=== PATIENT | male | born 1995 ===

== ENCOUNTER 2016-10-19 00:53 | Inpatient (IN) | payer MEDICAID ==
[2016-10-19 00:54] VITALS: BMI 22.2
[2016-10-19] MEDS ORDERED: Sodium Chloride 0.9% 1,000 ML IV ONE (01:21)
[2016-10-19] MEDS ORDERED: DiphenhydrAMINE 50 mg/ml Inj IVP STA ×2 (01:21→03:51)
[2016-10-19] MEDS ORDERED: HYDROmorphone 1 mg/ml ISec IVP STA (01:21)
[2016-10-19] MEDS ORDERED: DiphenhydrAMINE 50 mg/ml Inj ONE ×3 (01:31→06:56)
[2016-10-19 01:38] LABS: BASO # 0.1 K/uL (0.0-0.2); EOS # 0.7 K/uL (0.0-0.7); LYMPH # 3.4 K/uL (1.0-4.3); LYMPH % 25.9 % (20.0-40.0); MEAN CELL VOLUME 67.1 fL (80.0-94.0); MEAN CORPUSCULAR HEMOGLOBIN 21.3 pg (27.0-31.0); MEAN CORPUSCULAR HGB CONC 31.8 g/dL (33.0-37.0); MEAN PLATELET VOLUME 7.6 fL (7.2-11.7); MONO # 0.7 K/uL (0.0-0.8); MONO % 5.1 % (0.0-10.0); RED CELL DISTRIBUTION WIDTH 15.9 % (11.5-14.5); WHITE BLOOD COUNT 13.1 K/uL (4.8-10.8)
[2016-10-19 01:48] LABS: CHLORIDE 97 mmol/L (98-107); POTASSIUM 3.6 mmol/L (3.6-5.2); SODIUM 141 mmol/L (132-148)
[2016-10-19 01:50] LABS: ALB/GLOB RATIO 0.9 (1.0-2.1); ALKALINE PHOSPHATASE 131 U/L (38-126); AST/SGOT 21 U/L (17-59); BILIRUBIN,TOTAL < 0.1 mg/dL (0.2-1.3); CARBON DIOXIDE 28 mmol/L (22-30); GFR AFRICAN-AMERICAN > 60; TOTAL PROTEIN 7.5 g/dL (6.3-8.3)
[2016-10-19 01:51] LABS: ALT/SGPT 19 U/L (21-72); BLOOD UREA NITROGEN 8 mg/dL (9-20); CALCIUM 8.7 mg/dl (8.6-10.4); GLUCOSE,RANDOM 112 mg/dL (75-110)
--- NOTE | 2016-10-19 01:57 | C.PDOC ---
History Of Present Illness 21 y.o male presents to ER with complaints of abdominal pain and groin pain. Patient is s/p colostomy by Dr Taylor on 09/24 and perineal abscess I&D 10/06. He is currently at [facility] and states the pain is not controlled with medications given. He states his pain generalized waxing and waning and usually gets relief with Dilaudid in the hospital. Denies any nausea, vomiting, fever, urinary symptoms. Time Seen by Provider: 10/19/16 01:11 Chief Complaint (Nursing): Abdominal Pain History Per: Patient History/Exam Limitations: no limitations Onset/Duration Of Symptoms: Days, Waxing/Waning Location Of Pain/Discomfort: Diffuse Radiation Of Pain To:: None Quality Of Discomfort: "Pain" Associated Symptoms: denies: Fever, Nausea, Vomiting, Urinary Symptoms Additional History Per: Patient Past Medical History Reviewed: Historical Data, Nursing Documentation, Vital Signs Vital Signs: Last Vital Signs Temp 98.4 F 10/19/16 00:56 Pulse 101 H 10/19/16 00:56 Resp 20 10/19/16 00:56 BP 123/77 10/19/16 00:56 Pulse Ox 100 10/19/16 05:15 - Medical History PMH: Crohn's Disease (COLOSTOMY 2015), Depression Surgical History: No Surg Hx - [facility] Procedures DRAINAGE OF BUTTOCK SKIN, EXTERNAL APPROACH, DIAGNOSTIC (09/23/16) EXCISION OF BACK SKIN, EXTERNAL APPROACH (09/23/16) EXCISION OF PERINEUM SKIN, EXTERNAL APPROACH (09/23/16) EXTRACTION OF BUTTOCK SKIN, EXTERNAL APPROACH (09/23/16) Family History: States: Unknown Family Hx - Social History Hx Alcohol Use: No Hx Substance Use: No - Immunization History Hx Tetanus Toxoid Vaccination: No Hx Influenza Vaccination: No Hx Pneumococcal Vaccination: No Review Of Systems Except As Marked, All Systems Reviewed And Found Negative. Constitutional: Negative for: Fever, Chills Gastrointestinal: Positive for: Abdominal Pain. Negative for: Nausea, Vomiting Genitourinary: Positive for: Other (+groin pain ). Negative for: Dysuria, Frequency, Hematuria Physical Exam - Physical Exam Skin: Other (perineal wound pink and tender, no drainage or foul odor) Gastrointestinal/Abdominal: Tenderness (nonfocal generalized), Other (colostomy left abdomen with brown soft stool) ED Course And Treatment - Laboratory Results Result Diagrams: 10/19/16 01:35 10/19/16 01:35 O2 Sat by Pulse Oximetry: 100 (on RA) Pulse Ox Interpretation: Normal Medical Decision Making Medical Decision Makin y.o male with abdominal pain and is s/p colectomy by Dr Taylor on 09/24 and perineal abscess I&D 10/06. Labs and xray ordered. Patient treated with IV NS , Dilaudid and Benadryl. Case discussed with Dr Mayen who agrees with plan and treatment. Labs reviewed showing no acute changes. On reevaluation, patient continues to complain of pain and is requesting to call his PMD Dr Shiloh Barrett. Will place patient on observation for intractable abdominal pain Disposition - Disposition Disposition: HOME/ ROUTINE Disposition Time: 01:56 Condition: STABLE - POA Present On Arrival: None - Clinical Impression Clinical Impression: Intractable abdominal pain - PA / MICA PATCHER / Resident Statement MD/DO has reviewed & agrees with the documentation as recorded. - Scribe Statement The provider has reviewed the documentation as recorded by the Scribe (Krystle Barrett) All medical record entries made by the Scribe were at my direction and personally dictated by me. I have reviewed the chart and agree that the record accurately reflects my personal performance of the history, physical exam, medical decision making, and the department course for this patient. I have also personally directed, reviewed, and agree with the discharge instructions and disposition. Decision To Admit - Pt Status Changed To: Hospital Disposition Of: Observation - . Bed Request Type: Regular Admitting Physician: Osvaldo Barrett Patient Diagnosis: Intractable abdominal pain
[2016-10-19] MEDS ORDERED: Magnesium Hydroxide Susp 30 ml UD PO PRN (06:31)
[2016-10-19] MEDS: DiphenhydrAMINE 50 mg/ml Inj IVP PRN ×8 (07:01→22:43)
[2016-10-19] MEDS ORDERED: VANCOMYCIN IV SCH (10:00)
[2016-10-19] MEDS ORDERED: PROTEIN HYDROLYS PO SCH (10:00)
[2016-10-19] MEDS ORDERED: AMINO ACIDS PO SCH (10:00)
[2016-10-19] MEDS ORDERED: SOD CHLORIDE IV SCH (10:00)
--- NOTE | 2016-10-19 10:42 | RAD ---
PROCEDURE: Radiographs of the chest and abdomen (obstructive series) HISTORY: Abdominal pain, history of surgery COMPARISON: 10/13/2016 TECHNIQUE: AP radiograph of the chest, with upright and supine radiographs of the abdomen. FINDINGS: CHEST: Lungs: Clear. Cardiovascular: Normal size heart. No pulmonary vascular congestion. Pleura: No pleural fluid. No pneumothorax. Other findings: None. ABDOMEN AND PELVIS: Bowel: There is moderate amount of stool in the left colon. There is nonobstructive bowel gas pattern. There is contrast material in the left hemicolon and a probable stoma in the left lower quadrant. There are surgical sutures in the right mid abdomen. Free air: None. Bones: Unremarkable. Other findings: None. IMPRESSION: Nonobstructive bowel gas pattern. Probable stoma in the left lower quadrant. Clear lungs.
[2016-10-19] MEDS: Enoxaparin 30 mg Syringe SC SCH (13:51)
[2016-10-19] MEDS: Lactobacillus Acidophilus 500 MU Cap PO SCH ×3 (13:53→17:42)
[2016-10-19] MEDS: Pantoprazole 20 mg EC Tab PO SCH ×2 (13:54→14:22)
--- NOTE | 2016-10-19 19:13 | CP.PCM.HP ---
Past Patient History - Infectious Disease Hx of Infectious Diseases: None - Past Medical History & Family History Past Medical History?: Yes - Past Social History Smoking Status: Never Smoked - CARDIAC Hx Cardiac Disorders: No - PULMONARY Hx Respiratory Disorders: No - NEUROLOGICAL Hx Neurological Disorder: No - HEENT Hx HEENT Problems: No - RENAL Hx Chronic Kidney Disease: No - ENDOCRINE/METABOLIC Hx Endocrine Disorders: No - HEMATOLOGICAL/ONCOLOGICAL Hx Blood Disorders: No - INTEGUMENTARY Hx Dermatological Problems: Yes Other/Comment: Perineal wound - MUSCULOSKELETAL/RHEUMATOLOGICAL Hx Falls: No - GASTROINTESTINAL Hx Gastrointestinal Disorders: Yes Hx Colostomy: Yes (Left quadrant abd) Hx Crohn's Disease: Yes (COLOSTOMY 2016) - GENITOURINARY/GYNECOLOGICAL Hx Genitourinary Disorders: No - PSYCHIATRIC Hx Depression: Yes Hx Substance Use: No - SURGICAL HISTORY Hx Surgeries: Yes (SEE COMMENT) Other/Comment: LOOP COLOSTOMY. Perineal wound. Left upper arm PICC Line - ANESTHESIA Hx Anesthesia: Yes Hx Anesthesia Reactions: No Hx Malignant Hyperthermia: No Meds Allergies/Adverse Reactions: Allergies Allergy/AdvReac Type Severity Reaction Status Date / Time morphine Allergy ITCHING Verified 10/19/16 12:19 Results - Vital Signs Recent Vital Signs: Last Vital Signs Temp 98.3 F 10/19/16 16:00 Pulse 88 10/19/16 16:00 Resp 20 10/19/16 16:00 BP 99/65 L 10/19/16 16:00 Pulse Ox 98 10/19/16 16:00 - Labs Result Diagrams: 10/19/16 01:35 10/19/16 01:35 Labs: Laboratory Results - last 24 hr 10/19/16 10/19/16 14:20 16:34 Vancomycin Peak < 5.0 L Vancomycin Trough < 5.0 L
[2016-10-19] MEDS: Vancomycin 1.4 GM in Sodium Chloride 0.9% 500 ML IVPB SCH (20:31)
[2016-10-20] MEDS: DiphenhydrAMINE 50 mg/ml Inj IVP PRN ×11 (00:46→22:03)
[2016-10-20] MEDS: HYDROmorphone 1 mg/ml ISec IVP PRN ×5 (08:45→18:08)
[2016-10-20] MEDS ORDERED: Pneumococcal 23-Valent Vaccine IM ONE (10:00)
[2016-10-20] MEDS ORDERED: Influenza Virus Vaccine 45 mcg/0.5 ml Syr IM ONE (10:00)
--- NOTE | 2016-10-20 10:46 | CP.PCM.PN ---
<Antonio Foster - Last Filed: 10/20/16 12:57> Subjective - Date & Time of Evaluation Date of Evaluation: 10/20/16 Time of Evaluation: 10:40 - Subjective Subjective: Medicine Note- Dr. Barrett's service Patient was seen and examined at bedside. Patient reports that he came back to the hospital at the instructions of Dr. Barrett due to the intractable abdominal pain he was experiencing after he left, to be evaluated by GI. Patient reports that currently he feels okay, tolerating PO. Colostomy bag still functioning. No nausea, no vomiting. No events overnight, per nursing. Objective - Vital Signs/Intake and Output Vital Signs (last 24 hours): Temp Pulse Resp BP Pulse Ox 98.2 F 90 20 106/75 97 10/20/16 07:54 10/20/16 07:54 10/20/16 07:54 10/20/16 07:54 10/20/16 07:54 Intake and Output: 10/20/16 10/20/16 06:59 18:59 Intake Total 800 Balance 800 - Medications Medications: Current Medications Acetaminophen (Tylenol 325mg Tab) 650 mg PO Q4 PRN PRN Reason: Pain, Mild (1-3) Diphenhydramine HCl (Benadryl) 25 mg IVP Q2 PRN PRN Reason: itching Last Admin: 10/20/16 08:47 Dose: 25 mg Enoxaparin Sodium (Lovenox) 30 mg SC DAILY [facility] Last Admin: 10/19/16 13:51 Dose: 30 mg Escitalopram Oxalate (Lexapro) 20 mg PO DAILY [facility] Last Admin: 10/19/16 14:22 Dose: 20 mg Gabapentin (Neurontin) 100 mg PO TID [facility] Last Admin: 10/19/16 17:42 Dose: 100 mg Hydromorphone HCl (Dilaudid) 1 mg IVP Q2 PRN PRN Reason: Pain Last Admin: 10/20/16 08:45 Dose: 1 mg Vancomycin HCl 1.4 gm/ Sodium (Chloride) 500 mls @ 166.7 mls/hr IVPB Q24H [facility] Last Admin: 10/19/16 20:31 Dose: 166.7 mls/hr Ketorolac Tromethamine (Toradol) 10 mg PO Q8 PRN PRN Reason: Inflammation Lactobacillus Acidophilus (Bacid Acidophilus) 1 cap PO BID [facility] Last Admin: 10/19/16 17:42 Dose: 1 cap Magnesium Hydroxide (Milk Of Magnesia) 30 ml PO DAILY PRN PRN Reason: Constipation Pantoprazole Sodium (Protonix Ec Tab) 20 mg PO DAILY [facility] Last Admin: 10/19/16 14:22 Dose: 20 mg Trazodone HCl (Desyrel) 50 mg PO HS [facility] Last Admin: 10/19/16 22:51 Dose: 50 mg - Constitutional Appears: Non-toxic, No Acute Distress - Head Exam Head Exam: ATRAUMATIC, NORMAL INSPECTION, NORMOCEPHALIC - Eye Exam Eye Exam: PERRL Pupil Exam: NORMAL ACCOMODATION, PERRL - ENT Exam ENT Exam: Mucous Membranes Moist - Respiratory Exam Respiratory Exam: Clear to Ausculation Bilateral, NORMAL BREATHING PATTERN. absent: Prolonged Expiratory Phase, Rales, Rhonchi, Wheezes - Cardiovascular Exam Cardiovascular Exam: REGULAR RHYTHM, +S1, +S2 - GI/Abdominal Exam GI & Abdominal Exam: Soft, Normal Bowel Sounds. absent: Tenderness, Diminished Bowel Sounds, Hypoactive Bowel Sounds Additional comments: functioning colostomy bag - Extremities Exam Extremities Exam: Normal Capillary Refill, Normal Inspection - Neurological Exam Neurological Exam: Alert, Awake, Oriented x3 - Psychiatric Exam Psychiatric exam: Normal Affect, Normal Mood - Skin Skin Exam: Normal Color, Warm Assessment and Plan - Assessment and Plan (Free Text) Assessment: (1) Intractable Abdominal Pain/ Crohn's disease Consult GI- Dr. Lopez s/p partial colectomy revision on 10/14/16 Dilaudid 1mg IVP Q2h PRN Benadryl 25mg IVP Q2h PRN Toradol 10mg PO Q8h PRN Tylenol 650mg PO Q4h PRN (2) Wound s/p debridement on 10/14/16 wound care nurse referral Vanco 1gm IV q24h started on 10/19/16- continued from previous visit Lactobacillus Acidophilus - 1 cap PO BID (3) Prophylaxis Protonix 20mg PO daily Lovenox 30mg SC Daily SCDs (4) Depression Lexapro 20mg PO Daily All management per Dr Barrett <Osvaldo Barrett S - Last Filed: 10/20/16 22:11> Objective - Vital Signs/Intake and Output Vital Signs (last 24 hours): Temp Pulse Resp BP Pulse Ox 98.6 F 103 H 20 110/62 97 10/20/16 15:27 10/20/16 21:52 10/20/16 15:27 10/20/16 21:52 10/20/16 15:27 Intake and Output: 10/20/16 10/21/16 18:59 06:59 Intake Total 620 Balance 620 - Medications Medications: Current Medications Acetaminophen (Tylenol 325mg Tab) 650 mg PO Q4 PRN PRN Reason: Pain, Mild (1-3) Diphenhydramine HCl (Benadryl) 25 mg IVP Q2 PRN PRN Reason: itching Last Admin: 10/20/16 22:03 Dose: 25 mg Enoxaparin Sodium (Lovenox) 30 mg SC DAILY [facility] Last Admin: 10/20/16 10:51 Dose: 30 mg Escitalopram Oxalate (Lexapro) 20 mg PO DAILY [facility] Last Admin: 10/20/16 10:51 Dose: 20 mg Gabapentin (Neurontin) 100 mg PO TID [facility] Last Admin: 10/20/16 17:28 Dose: 100 mg Hydromorphone HCl (Dilaudid) 1 mg IVP Q2 PRN Last Admin: 10/20/16 22:03 Dose: 1 mg Vancomycin HCl 1.4 gm/ Sodium (Chloride) 500 mls @ 166.7 mls/hr IVPB Q24H [facility] Last Admin: 10/20/16 17:03 Dose: 166.7 mls/hr Ketorolac Tromethamine (Toradol) 10 mg PO Q8 PRN PRN Reason: Inflammation Lactobacillus Acidophilus (Bacid Acidophilus) 1 cap PO BID [facility] Last Admin: 10/20/16 17:28 Dose: 1 cap Magnesium Hydroxide (Milk Of Magnesia) 30 ml PO DAILY PRN PRN Reason: Constipation Pantoprazole Sodium (Protonix Ec Tab) 20 mg PO DAILY [facility] Last Admin: 10/20/16 13:08 Dose: 20 mg Polyethylene Glycol (Miralax) 17 gm PO DAILY [facility] Last Admin: 10/20/16 13:09 Dose: 17 gm Trazodone HCl (Desyrel) 50 mg PO HS [facility] Last Admin: 10/20/16 21:51 Dose: 50 mg Attending/Attestation - Attestation I have personally seen and examined this patient.: Yes I have fully participated in the care of the patient.: Yes I have reviewed all pertinent clinical information, including history, physical exam and plan: Yes Notes (Text): 10/20/16 22:11 case seen and disucssed eveline rosen and
[2016-10-20] MEDS: Enoxaparin 30 mg Syringe SC SCH (10:51)
--- NOTE | 2016-10-20 10:58 | CP.PCM.CON ---
History of Present Illness - History of Present Illness History of Present Illness: Chrissy Scott, IM PGY-1, GI Service, Dr. Hines Past Patient History - Infectious Disease Hx of Infectious Diseases: None - Past Medical History & Family History Past Medical History?: Yes - Past Social History Smoking Status: Never Smoked - CARDIAC Hx Cardiac Disorders: No - PULMONARY Hx Respiratory Disorders: No - NEUROLOGICAL Hx Neurological Disorder: No - HEENT Hx HEENT Problems: No - RENAL Hx Chronic Kidney Disease: No - ENDOCRINE/METABOLIC Hx Endocrine Disorders: No - HEMATOLOGICAL/ONCOLOGICAL Hx Blood Disorders: No - INTEGUMENTARY Hx Dermatological Problems: Yes Other/Comment: Perineal wound - MUSCULOSKELETAL/RHEUMATOLOGICAL Hx Falls: No - GASTROINTESTINAL Hx Gastrointestinal Disorders: Yes Hx Colostomy: Yes (Left quadrant abd) Hx Crohn's Disease: Yes (COLOSTOMY 2016) - GENITOURINARY/GYNECOLOGICAL Hx Genitourinary Disorders: No - PSYCHIATRIC Hx Depression: Yes Hx Substance Use: No - SURGICAL HISTORY Hx Surgeries: Yes (SEE COMMENT) Other/Comment: LOOP COLOSTOMY. Perineal wound. Left upper arm PICC Line - ANESTHESIA Hx Anesthesia: Yes Hx Anesthesia Reactions: No Hx Malignant Hyperthermia: No Meds Allergies/Adverse Reactions: Allergies Allergy/AdvReac Type Severity Reaction Status Date / Time morphine Allergy ITCHING Verified 10/19/16 12:19 - Medications Medications: Current Medications Acetaminophen (Tylenol 325mg Tab) 650 mg PO Q4 PRN PRN Reason: Pain, Mild (1-3) Diphenhydramine HCl (Benadryl) 25 mg IVP Q2 PRN PRN Reason: itching Last Admin: 10/20/16 10:50 Dose: 25 mg Enoxaparin Sodium (Lovenox) 30 mg SC DAILY [facility] BEDS AT [facility] Last Admin: 10/20/16 10:51 Dose: 30 mg Escitalopram Oxalate (Lexapro) 20 mg PO DAILY [facility] 234 BEDS AT [facility] Last Admin: 10/20/16 10:51 Dose: 20 mg Gabapentin (Neurontin) 100 mg PO TID [facility] 234 BEDS AT THE [facility] Last Admin: 10/20/16 10:51 Dose: 100 mg Hydromorphone HCl (Dilaudid) 1 mg IVP Q2 PRN PRN Reason: Pain Last Admin: 10/20/16 10:49 Dose: 1 mg Vancomycin HCl 1.4 gm/ Sodium (Chloride) 500 mls @ 166.7 mls/hr IVPB Q24H [facility]CLUDE 234 BEDS AT [facility] Last Admin: 10/19/16 20:31 Dose: 166.7 mls/hr Ketorolac Tromethamine (Toradol) 10 mg PO Q8 PRN PRN Reason: Inflammation Lactobacillus Acidophilus (Bacid Acidophilus) 1 cap PO BID [facility] 234 BEDS AT [facility] Last Admin: 10/19/16 17:42 Dose: 1 cap Magnesium Hydroxide (Milk Of Magnesia) 30 ml PO DAILY PRN PRN Reason: Constipation Pantoprazole Sodium (Protonix Ec Tab) 20 mg PO DAILY [facility] 234 BEDS AT [facility] Last Admin: 10/19/16 14:22 Dose: 20 mg Trazodone HCl (Desyrel) 50 mg PO HS [facility] 234 BEDS AT [facility] Last Admin: 10/19/16 22:51 Dose: 50 mg Results - Vital Signs Recent Vital Signs: Last Vital Signs Temp 98.2 F 10/20/16 07:54 Pulse 90 10/20/16 07:54 Resp 20 10/20/16 07:54 BP 106/75 10/20/16 07:54 Pulse Ox 97 10/20/16 07:54 - Labs Result Diagrams: 10/19/16 01:35 10/19/16 01:35 Labs: Laboratory Results - last 24 hr 10/19/16 10/19/16 10/20/16 14:20 16:34 04:07 Vancomycin Peak < 5.0 L Vancomycin Trough < 5.0 L 26.5 H 10/20/16 05:56 Vancomycin Peak 16.1 L Vancomycin Trough
--- NOTE | 2016-10-20 11:01 | CP.PCM.CON ---
<Chrissy Scott - Last Filed: 10/20/16 12:35> History of Present Illness - History of Present Illness History of Present Illness: Chrissy Scott, IM PGY-1, GI Service - Dr. Hines 21 yo male w h/o Crohn's disease and fistula formation s/p partial colectomy and loop colostomy admitted for abdominal and rectal pain. He was recently discharged from [facility] (formerly [facility]) on 10/17 for the same complaints. Patient states he has chronic intermittent episodes of sharp abdominal pain. He is a poor historian. Admits to severe LLQ abd pain 2 nights ago at [facility]. Patient states this pain is not new and feels the same as multiple previous episodes. Patient was scheduled for GI followup at [facility] with his regular GI team, however patient states he did not followup because he wants a new GI doc. Patient denies diarrhea, n/v, fevers, chills, new rashes, joint pain, eye pain or redness, aphthous ulcers, h/o kidney stones. Patient is tolerating regular PO diet. Underwent partial colectomy 02/22/2015 due to fistula formation-unknown site. Moved to [place] with lapse of Insurance but felt healthy and decided he did not need to continue Humira. August 2015 -- developed rectal/groin abscesses with over fifteen I&D managed by four surgeons. Most recently, Dr. Villegas couple weeks ago. Endorsed he has never completed antibiotics. February 2016, worsening diarrhea and hematochezia with restarting of Humira. , loop colostomy for wound infection prevention. June 2016, stopped Humira, switched to mesalamine 400mg PO TID. Currently on no Crohn's medications. Last colonoscopy 09/04/2016 at [facility] in [place], endorsed that Crohn 's disease was not severe and separate entity abscesses. PMHx: Crohn's disease with fistula formation; chronic nonhealing abscess PSHx: Partial colectomy, loop colostomy, multiple I&Ds of perianal and presacral abscesses last 10/06/2016 Allergies: Morphine Social: Never smoked. Lives home w mother HomeMeds: Reviewed. See MAR Review of Systems - Constitutional Constitutional: absent: Chills, Fever - EENT Eyes: absent: Blurred Vision, Change in Vision - Cardiovascular Cardiovascular: absent: Chest Pain, Dyspnea, Pedal Edema - Respiratory Respiratory: absent: Cough - Gastrointestinal Gastrointestinal: Abdominal Pain (Epigastric and left-sided, sig improved ). absent: Change in Stool Character, Diarrhea, Nausea, Vomiting - Genitourinary Genitourinary: absent: Dysuria, Flank Pain - Integumentary Integumentary: absent: New Lesions, Rash - Neurological Neurological: absent: Dizziness, Weakness - Endocrine Endocrine: absent: Cold Intolorance, Heat Intolorance - Hematologic/Lymphatic Hematologic: absent: Easy Bleeding, Easy Bruising Past Patient History - Infectious Disease Hx of Infectious Diseases: None - Past Medical History & Family History Past Medical History?: Yes - Past Social History Smoking Status: Never Smoked - CARDIAC Hx Cardiac Disorders: No - PULMONARY Hx Respiratory Disorders: No - NEUROLOGICAL Hx Neurological Disorder: No - HEENT Hx HEENT Problems: No - RENAL Hx Chronic Kidney Disease: No - ENDOCRINE/METABOLIC Hx Endocrine Disorders: No - HEMATOLOGICAL/ONCOLOGICAL Hx Blood Disorders: No - INTEGUMENTARY Hx Dermatological Problems: Yes Other/Comment: Perineal wound - MUSCULOSKELETAL/RHEUMATOLOGICAL Hx Falls: No - GASTROINTESTINAL Hx Gastrointestinal Disorders: Yes Hx Colostomy: Yes (Left quadrant abd) Hx Crohn's Disease: Yes (COLOSTOMY 2016) - GENITOURINARY/GYNECOLOGICAL Hx Genitourinary Disorders: No - PSYCHIATRIC Hx Depression: Yes Hx Substance Use: No - SURGICAL HISTORY Hx Surgeries: Yes (SEE COMMENT) Other/Comment: LOOP COLOSTOMY. Perineal wound. Left upper arm PICC Line - ANESTHESIA Hx Anesthesia: Yes Hx Anesthesia Reactions: No Hx Malignant Hyperthermia: No Meds Allergies/Adverse Reactions: Allergies Allergy/AdvReac Type Severity Reaction Status Date / Time morphine Allergy ITCHING Verified 10/19/16 12:19 - Medications Medications: Current Medications Acetaminophen (Tylenol 325mg Tab) 650 mg PO Q4 PRN PRN Reason: Pain, Mild (1-3) Diphenhydramine HCl (Benadryl) 25 mg IVP Q2 PRN PRN Reason: itching Last Admin: 10/20/16 10:50 Dose: 25 mg Enoxaparin Sodium (Lovenox) 30 mg SC DAILY [facility] Last Admin: 10/20/16 10:51 Dose: 30 mg Escitalopram Oxalate (Lexapro) 20 mg PO DAILY [facility] Last Admin: 10/20/16 10:51 Dose: 20 mg Gabapentin (Neurontin) 100 mg PO TID [facility] Last Admin: 10/20/16 10:51 Dose: 100 mg Hydromorphone HCl (Dilaudid) 1 mg IVP Q2 PRN PRN Reason: Pain Last Admin: 10/20/16 10:49 Dose: 1 mg Vancomycin HCl 1.4 gm/ Sodium (Chloride) 500 mls @ 166.7 mls/hr IVPB Q24H [facility] Last Admin: 10/19/16 20:31 Dose: 166.7 mls/hr Ketorolac Tromethamine (Toradol) 10 mg PO Q8 PRN PRN Reason: Inflammation Lactobacillus Acidophilus (Bacid Acidophilus) 1 cap PO BID [facility] Last Admin: 10/19/16 17:42 Dose: 1 cap Magnesium Hydroxide (Milk Of Magnesia) 30 ml PO DAILY PRN PRN Reason: Constipation Pantoprazole Sodium (Protonix Ec Tab) 20 mg PO DAILY [facility] Last Admin: 10/19/16 14:22 Dose: 20 mg Trazodone HCl (Desyrel) 50 mg PO HS [facility] Last Admin: 10/19/16 22:51 Dose: 50 mg Physical Exam - Constitutional Appears: No Acute Distress - Head Exam Head Exam: ATRAUMATIC, NORMAL INSPECTION, NORMOCEPHALIC - Eye Exam Eye Exam: EOMI, Normal appearance, PERRL. absent: Scleral icterus Pupil Exam: NORMAL ACCOMODATION, PERRL. absent: Unequal - ENT Exam ENT Exam: Mucous Membranes Moist, Normal Exam - Neck Exam Neck exam: Positive for: Normal Inspection. Negative for: Meningismus - Respiratory Exam Respiratory Exam: Clear to Auscultation Bilateral. absent: Accessory Muscle Use , Rhonchi, Wheezes, Respiratory Distress, Stridor - Cardiovascular Exam Cardiovascular Exam: REGULAR RHYTHM, RRR, +S1, +S2. absent: Gallop, JVD, Rubs - GI/Abdominal Exam GI & Abdominal Exam: Normal Bowel Sounds, Soft, Tenderness (mild TTP epigastrium ). absent: Distended, Firm, Guarding, Rebound, Rigid Additional comments: Colostomy L abdomen, brown stool and gas - Extremities Exam Extremities exam: Positive for: normal inspection. Negative for: calf tenderness - Back Exam Back exam: absent: CVA tenderness (L), CVA tenderness (R), rash noted - Neurological Exam Neurological exam: Alert, CN II-XII Intact, Oriented x3, Reflexes Normal - Psychiatric Exam Psychiatric exam: Normal Affect, Normal Mood - Skin Skin Exam: Normal Color, Warm Results - Vital Signs Recent Vital Signs: Last Vital Signs Temp 98.2 F 10/20/16 07:54 Pulse 90 10/20/16 07:54 Resp 20 10/20/16 07:54 BP 106/75 10/20/16 07:54 Pulse Ox 97 10/20/16 07:54 - Labs Result Diagrams: 10/19/16 01:35 10/19/16 01:35 Labs: Laboratory Results - last 24 hr 10/19/16 10/19/16 10/20/16 14:20 16:34 04:07 Vancomycin Peak < 5.0 L Vancomycin Trough < 5.0 L 26.5 H 10/20/16 05:56 Vancomycin Peak 16.1 L Vancomycin Trough - Imaging and Cardiology Abdominal x-ray Status: Image reviewed by me, Report reviewed by me (Obstriuctive series -- Moderate stool in Left colon, Nonobstructive bowel pattern) Assessment & Plan - Assessment and Plan (Free Text) Assessment: 21 yo male w h/o Crohn's disease s/p colectomy with loop ileostomy and chronic nonhealing ulcers admitted with abdominal pain. - Abdominal pain - Crohn's disease - Medical noncompliance - Chronic microcytic anemia of iron deficiency Plan: - Recommend abx for sacral/perianal wounds and ID consult - Miralax Qday - Patient will need outpt CTE or MRE to r/o small bowel stricture as cause for intermittent abd pain - Avoid Toradol for pain control - Stool cx - H&H stable and at baseline. No signs of overt GIB - Date & Time Date: 10/20/16 Time: 12:42 <Tavo Hines MD - Last Filed: 10/20/16 14:10> Meds - Medications Medications: Current Medications Acetaminophen (Tylenol 325mg Tab) 650 mg PO Q4 PRN PRN Reason: Pain, Mild (1-3) Diphenhydramine HCl (Benadryl) 25 mg IVP Q2 PRN PRN Reason: itching Last Admin: 10/20/16 12:55 Dose: 25 mg Enoxaparin Sodium (Lovenox) 30 mg SC DAILY [facility] Last Admin: 10/20/16 10:51 Dose: 30 mg Escitalopram Oxalate (Lexapro) 20 mg PO DAILY [facility] Last Admin: 10/20/16 10:51 Dose: 20 mg Gabapentin (Neurontin) 100 mg PO TID [facility] Last Admin: 10/20/16 13:08 Dose: 100 mg Hydromorphone HCl (Dilaudid) 1 mg IVP Q2 PRN PRN Reason: Pain Last Admin: 10/20/16 12:54 Dose: 1 mg Vancomycin HCl 1.4 gm/ Sodium (Chloride) 500 mls @ 166.7 mls/hr IVPB Q24H [facility] Last Admin: 10/19/16 20:31 Dose: 166.7 mls/hr Ketorolac Tromethamine (Toradol) 10 mg PO Q8 PRN PRN Reason: Inflammation Lactobacillus Acidophilus (Bacid Acidophilus) 1 cap PO BID [facility] Last Admin: 10/20/16 13:08 Dose: 1 cap Magnesium Hydroxide (Milk Of Magnesia) 30 ml PO DAILY PRN PRN Reason: Constipation Pantoprazole Sodium (Protonix Ec Tab) 20 mg PO DAILY [facility] Last Admin: 10/20/16 13:08 Dose: 20 mg Polyethylene Glycol (Miralax) 17 gm PO DAILY [facility] Last Admin: 10/20/16 13:09 Dose: 17 gm Trazodone HCl (Desyrel) 50 mg PO HS [facility] Last Admin: 10/19/16 22:51 Dose: 50 mg Results - Vital Signs Recent Vital Signs: Last Vital Signs Temp 98.2 F 10/20/16 07:54 Pulse 90 10/20/16 07:54 Resp 20 10/20/16 07:54 BP 106/75 10/20/16 07:54 Pulse Ox 97 10/20/16 07:54 - Labs Result Diagrams: 10/19/16 01:35 10/19/16 01:35 Labs: Laboratory Results - last 24 hr 10/19/16 10/19/16 10/20/16 14:20 16:34 04:07 Vancomycin Peak < 5.0 L Vancomycin Trough < 5.0 L 26.5 H 10/20/16 05:56 Vancomycin Peak 16.1 L Vancomycin Trough Attending/Attestation - Attestation I have personally seen and examined this patient.: Yes I have fully participated in the care of the patient.: Yes I have reviewed all pertinent clinical information: Yes Notes (Text): 02/27/17 14:05 Patient seen and examined with GI fellow and resident at bedside. In a nutshell this is a 21 yr old male with crohns disease diagnosed 6 years ago s/p transverse colon resection and then loop colostomy 6 months ago, on remicaide in the past now discontinued due to recent history of recurrent nitza rectal and nitza anal abscesses s/p debridement two weeks ago. Today he is readmitted for left lower quadrant pain. Solid stool output noted via colostomy. Tolerating PO diet without difficulty. No s/s of sepsis. Has not followed with [facility] GI Dr Soto. He needs to start TNF for fistulizing disease if no current acute infections. Will get MR enterography to look at small bowel. Rest of plan as per surgery. Discussed with Dr Taylor- no other surgical intervention currently. Diet as tolerated.
[2016-10-20] MEDS: Lactobacillus Acidophilus 500 MU Cap PO SCH ×2 (13:08→17:28)
[2016-10-20] MEDS: Pantoprazole 20 mg EC Tab PO SCH (13:08)
[2016-10-20] MEDS: POLYETHYLENE GLYCOL 3350 17 GM/Dose PACKET PO SCH (13:09)
[2016-10-20] MEDS: Vancomycin 1.4 GM in Sodium Chloride 0.9% 500 ML IVPB SCH (17:03)
--- NOTE | 2016-10-20 17:51 | CP.PCM.PN ---
Subjective - Date & Time of Evaluation Date of Evaluation: 10/20/16 Time of Evaluation: 11:20 - Subjective Subjective: clinically same Objective - Vital Signs/Intake and Output Vital Signs (last 24 hours): Temp Pulse Resp BP Pulse Ox 98.6 F 106 H 20 108/72 97 10/20/16 15:27 10/20/16 15:27 10/20/16 15:27 10/20/16 15:27 10/20/16 15:27 Intake and Output: 10/20/16 10/20/16 06:59 18:59 Intake Total 800 620 Balance 800 620 - Medications Medications: Current Medications Acetaminophen (Tylenol 325mg Tab) 650 mg PO Q4 PRN PRN Reason: Pain, Mild (1-3) Diphenhydramine HCl (Benadryl) 25 mg IVP Q2 PRN PRN Reason: itching Enoxaparin Sodium (Lovenox) 30 mg SC DAILY [facility] Last Admin: 10/20/16 10:51 Dose: 30 mg Escitalopram Oxalate (Lexapro) 20 mg PO DAILY [facility] Last Admin: 10/20/16 10:51 Dose: 20 mg Gabapentin (Neurontin) 100 mg PO TID [facility] Last Admin: 10/20/16 17:28 Dose: 100 mg Hydromorphone HCl (Dilaudid) 1 mg IVP Q2 PRN PRN Reason: Pain Last Admin: 10/20/16 16:01 Dose: 1 mg Vancomycin HCl 1.4 gm/ Sodium (Chloride) 500 mls @ 166.7 mls/hr IVPB Q24H [facility] Last Admin: 10/20/16 17:03 Dose: 166.7 mls/hr Ketorolac Tromethamine (Toradol) 10 mg PO Q8 PRN PRN Reason: Inflammation Lactobacillus Acidophilus (Bacid Acidophilus) 1 cap PO BID [facility] Last Admin: 10/20/16 17:28 Dose: 1 cap Magnesium Hydroxide (Milk Of Magnesia) 30 ml PO DAILY PRN PRN Reason: Constipation Pantoprazole Sodium (Protonix Ec Tab) 20 mg PO DAILY [facility] Last Admin: 10/20/16 13:08 Dose: 20 mg Polyethylene Glycol (Miralax) 17 gm PO DAILY [facility] Last Admin: 10/20/16 13:09 Dose: 17 gm Trazodone HCl (Desyrel) 50 mg PO HS [facility] Last Admin: 10/19/16 22:51 Dose: 50 mg - Constitutional Appears: Well - Head Exam Head Exam: ATRAUMATIC, NORMAL INSPECTION, NORMOCEPHALIC - Eye Exam Eye Exam: EOMI, Normal appearance, PERRL Pupil Exam: NORMAL ACCOMODATION, PERRL - ENT Exam ENT Exam: Mucous Membranes Moist, Normal Exam - Neck Exam Neck Exam: Full ROM, Normal Inspection. absent: Lymphadenopathy - Respiratory Exam Respiratory Exam: Decreased Breath Sounds - Cardiovascular Exam Cardiovascular Exam: REGULAR RHYTHM, +S1, +S2 - GI/Abdominal Exam GI & Abdominal Exam: Soft, Diminished Bowel Sounds - Rectal Exam Rectal Exam: Deferred
[2016-10-21] MEDS: DiphenhydrAMINE 50 mg/ml Inj IVP PRN ×11 (00:38→22:10)
[2016-10-21] MEDS: Vancomycin 500mg/D5W 100 ml 100 ML IVPB SCH ×2 (05:18→16:08)
[2016-10-21 07:20] LABS: BASO # 0.1 K/uL (0.0-0.2); BASO % 0.7 % (0.0-2.0); EOS # 0.6 K/uL (0.0-0.7); EOS % 6.3 % (0.0-4.0); LYMPH # 2.5 K/uL (1.0-4.3); LYMPH % 28.4 % (20.0-40.0); MEAN CELL VOLUME 67.3 fL (80.0-94.0); MEAN CORPUSCULAR HEMOGLOBIN 21.2 pg (27.0-31.0); MEAN CORPUSCULAR HGB CONC 31.5 g/dL (33.0-37.0); MEAN PLATELET VOLUME 8.3 fL (7.2-11.7); MONO # 0.8 K/uL (0.0-0.8); MONO % 8.5 % (0.0-10.0); NRBC % 0.1 % (0.0-2.0); RED CELL DISTRIBUTION WIDTH 16.3 % (11.5-14.5); WHITE BLOOD COUNT 8.9 K/uL (4.8-10.8)
[2016-10-21 07:31] LABS: CHLORIDE 95 mmol/L (98-107); SODIUM 139 mmol/L (132-148)
[2016-10-21 07:32] LABS: POTASSIUM 3.8 mmol/L (3.6-5.2)
[2016-10-21 07:34] LABS: ALB/GLOB RATIO 0.9 (1.0-2.1); ALKALINE PHOSPHATASE 136 U/L (38-126); ALT/SGPT 26 U/L (21-72); AST/SGOT 26 U/L (17-59); BILIRUBIN,TOTAL 0.3 mg/dL (0.2-1.3); BLOOD UREA NITROGEN 6 mg/dL (9-20); CARBON DIOXIDE 29 mmol/L (22-30); GFR AFRICAN-AMERICAN > 60; GLUCOSE,RANDOM 79 mg/dL (75-110); TOTAL PROTEIN 7.3 g/dL (6.3-8.3)
[2016-10-21 07:35] LABS: CALCIUM 8.4 mg/dl (8.6-10.4)
--- NOTE | 2016-10-21 08:33 | CP.PCM.PN ---
<Chrissy Scott - Last Filed: 10/21/16 08:30> Subjective - Date & Time of Evaluation Date of Evaluation: 10/21/16 Time of Evaluation: 08:41 - Subjective Subjective: EVA Kinsey PGY-1, GI Service - Dr. Lopez Patient seen and examined bedside. No acute events overnight. Patient states he feels better today, but still with some intermittent, sharp abdominal pain abdominal pain. Denies fevers, chills, n/v, CP, SOB. Objective - Vital Signs/Intake and Output Vital Signs (last 24 hours): Temp Pulse Resp BP Pulse Ox 98 F 93 H 18 99/67 L 97 10/21/16 00:00 10/21/16 00:00 10/21/16 00:00 10/21/16 00:00 10/21/16 00:00 - Medications Medications: Current Medications Acetaminophen (Tylenol 325mg Tab) 650 mg PO Q4 PRN PRN Reason: Pain, Mild (1-3) Diphenhydramine HCl (Benadryl) 25 mg IVP Q2 PRN PRN Reason: itching Last Admin: 10/21/16 07:39 Dose: 25 mg Enoxaparin Sodium (Lovenox) 30 mg SC DAILY [facility] Last Admin: 10/20/16 10:51 Dose: 30 mg Escitalopram Oxalate (Lexapro) 20 mg PO DAILY [facility] Last Admin: 10/20/16 10:51 Dose: 20 mg Gabapentin (Neurontin) 100 mg PO TID [facility] Last Admin: 10/20/16 17:28 Dose: 100 mg Hydromorphone HCl (Dilaudid) 1 mg IVP Q2 PRN Last Admin: 10/21/16 07:39 Dose: 1 mg Vancomycin HCl/Dextrose (Vancocin) 100 mls @ 100 mls/hr IVPB Q12H [facility] Stop: 10/26/16 05:01 Last Admin: 10/21/16 05:18 Dose: 100 mls/hr Lactobacillus Acidophilus (Bacid Acidophilus) 1 cap PO BID [facility] Last Admin: 10/20/16 17:28 Dose: 1 cap Magnesium Hydroxide (Milk Of Magnesia) 30 ml PO DAILY PRN PRN Reason: Constipation Pantoprazole Sodium (Protonix Ec Tab) 20 mg PO DAILY [facility] Last Admin: 10/20/16 13:08 Dose: 20 mg Polyethylene Glycol (Miralax) 17 gm PO DAILY [facility] Last Admin: 10/20/16 13:09 Dose: 17 gm Trazodone HCl (Desyrel) 50 mg PO HS [facility] Last Admin: 10/20/16 21:51 Dose: 50 mg - Labs Labs: 10/21/16 05:30 10/21/16 05:30 - Constitutional Appears: No Acute Distress - Head Exam Head Exam: ATRAUMATIC, NORMAL INSPECTION, NORMOCEPHALIC - Eye Exam Eye Exam: EOMI, Normal appearance, PERRL. absent: Scleral icterus Pupil Exam: NORMAL ACCOMODATION, PERRL. absent: Unequal - ENT Exam ENT Exam: Mucous Membranes Moist, Normal Exam - Neck Exam Neck exam: Positive for: Normal Inspection. Negative for: Meningismus - Respiratory Exam Respiratory Exam: Clear to Auscultation Bilateral. absent: Accessory Muscle Use , Rhonchi, Wheezes, Respiratory Distress, Stridor - Cardiovascular Exam Cardiovascular Exam: REGULAR RHYTHM, RRR, +S1, +S2. absent: Gallop, JVD, Rubs - GI/Abdominal Exam GI & Abdominal Exam: Normal Bowel Sounds, Soft, Tenderness (mild TTP epigastrium ). absent: Distended, Firm, Guarding, Rebound, Rigid Additional comments: Colostomy L abdomen, brown formed stool and gas - Extremities Exam Extremities exam: Positive for: normal inspection. Negative for: calf tenderness - Back Exam Back exam: absent: CVA tenderness (L), CVA tenderness (R), rash noted - Neurological Exam Neurological exam: Alert, CN II-XII Intact, Oriented x3, Reflexes Normal - Psychiatric Exam Psychiatric exam: Normal Affect, Normal Mood - Skin Skin Exam: Normal Color, Warm Assessment and Plan - Assessment and Plan (Free Text) Assessment: 21 yo male w h/o Crohn's disease s/p colectomy with loop ileostomy and chronic nonhealing ulcers admitted with abdominal pain. - Abdominal pain - Crohn's disease - Medical noncompliance - Chronic microcytic anemia of iron deficiency Plan: - Recommend abx for sacral/perianal wounds and ID consult - Miralax Qday - Patient will need outpt MRE to evaluate bowel stricture as cause for intermittent abd pain after his infection has resolved - Avoid Toradol for pain control - Stool cx if starts having diarrhea - H&H stable and at baseline. No signs of overt GIB - Discussed case with patient's established power nut runner operator, Dr. Soto - Discussed at length with patient importance of followup with Dr. Soto within 1 week. Patient has been counseled he must followup with his primary GI physician first - Patient will need to start TNF for fistulizing disease if no current acute infections. He will likely require several weeks of abx followed by ID evaluation prior to commencement of Remicaid therapy. - Diet as tolerated <Campos Lopez - Last Filed: 10/21/16 09:06> Objective - Vital Signs/Intake and Output Vital Signs (last 24 hours): Temp Pulse Resp BP Pulse Ox 98.1 F 87 19 103/70 96 10/21/16 07:00 10/21/16 07:00 10/21/16 07:00 10/21/16 07:00 10/21/16 07:00 - Medications Medications: Current Medications Acetaminophen (Tylenol 325mg Tab) 650 mg PO Q4 PRN PRN Reason: Pain, Mild (1-3) Diphenhydramine HCl (Benadryl) 25 mg IVP Q2 PRN PRN Reason: itching Last Admin: 10/21/16 07:39 Dose: 25 mg Enoxaparin Sodium (Lovenox) 30 mg SC DAILY [facility] Last Admin: 10/20/16 10:51 Dose: 30 mg Escitalopram Oxalate (Lexapro) 20 mg PO DAILY [facility] Last Admin: 10/20/16 10:51 Dose: 20 mg Gabapentin (Neurontin) 100 mg PO TID [facility] Last Admin: 10/20/16 17:28 Dose: 100 mg Hydromorphone HCl (Dilaudid) 1 mg IVP Q2 PRN Last Admin: 10/21/16 07:39 Dose: 1 mg Vancomycin HCl/Dextrose (Vancocin) 100 mls @ 100 mls/hr IVPB Q12H [facility] Stop: 10/26/16 05:01 Last Admin: 10/21/16 05:18 Dose: 100 mls/hr Lactobacillus Acidophilus (Bacid Acidophilus) 1 cap PO BID [facility] Last Admin: 10/20/16 17:28 Dose: 1 cap Magnesium Hydroxide (Milk Of Magnesia) 30 ml PO DAILY PRN PRN Reason: Constipation Pantoprazole Sodium (Protonix Ec Tab) 20 mg PO DAILY [facility] Last Admin: 02/27/17 13:08 Dose: 20 mg Polyethylene Glycol (Miralax) 17 gm PO DAILY [facility] Last Admin: 10/20/16 13:09 Dose: 17 gm Trazodone HCl (Desyrel) 50 mg PO HS [facility] Last Admin: 10/20/16 21:51 Dose: 50 mg - Labs Labs: 10/21/16 05:30 10/21/16 05:30 Attending/Attestation - Attestation I have personally seen and examined this patient.: Yes I have fully participated in the care of the patient.: Yes I have reviewed all pertinent clinical information, including history, physical exam and plan: Yes Notes (Text): 10/21/16 09:00 I have seen and examined patient with medical assistant float and GI fellow. No acute events overnight. He continues to complain of ongoing abdominal discomfort, though improved compared to prior and controlled with current medication regimen. He denies nausea, vomiting, fever/chills. Tolerating PO diet without difficulty. 12 point review of systems performed, negative aside from mentioned above. Crohn's colitis s/p loop ileostomy Chronic sacral ulcers s/p surgical debridement and wound vac therapy Chronic anemia - Diet as tolerated - Pain control, avoid use of NSAID medication. Patient cautioned regarding use of narcotic pain medication as this may potentially worsen condition. - Continue with antibiotic therapy as per medical and surgical teams, leukocytosis persists - Patient would benefit from outpatient CT or MR enterography for characterization of small bowel disease - Following completion of antibiotic therapy, will need ID evaluation to determine whether subsequent immunosuppresive crohn's medication can be initiated - Patient to follow up with primary GI at [facility], will consider subsequent transfer of care as per patient request following discussion with his power nut runner operator - From GI perspective, ok to discharge patient home with subsequent outpatient follow up
--- NOTE | 2016-10-21 09:27 | CP.PCM.PN ---
<Antonio Foster - Last Filed: 10/21/16 14:22> Subjective - Date & Time of Evaluation Date of Evaluation: 10/21/16 Time of Evaluation: 07:35 - Subjective Subjective: Medicine Note- Dr. Barrett's service Patient was seen and examined at bedside. Patient reports no acute complaints at this time. He has some mild abdominal pain, but chronic in nature. Tolerating PO, no nausea, vomiting. No events overnight. Objective - Vital Signs/Intake and Output Vital Signs (last 24 hours): Temp Pulse Resp BP Pulse Ox 98.1 F 87 19 103/70 96 10/21/16 07:00 10/21/16 07:00 10/21/16 07:00 10/21/16 07:00 10/21/16 07:00 - Medications Medications: Current Medications Acetaminophen (Tylenol 325mg Tab) 650 mg PO Q4 PRN PRN Reason: Pain, Mild (1-3) Diphenhydramine HCl (Benadryl) 25 mg IVP Q2 PRN PRN Reason: itching Last Admin: 10/21/16 07:39 Dose: 25 mg Enoxaparin Sodium (Lovenox) 30 mg SC DAILY [facility] Last Admin: 10/20/16 10:51 Dose: 30 mg Escitalopram Oxalate (Lexapro) 20 mg PO DAILY [facility] Last Admin: 10/20/16 10:51 Dose: 20 mg Gabapentin (Neurontin) 100 mg PO TID [facility] Last Admin: 10/20/16 17:28 Dose: 100 mg Hydromorphone HCl (Dilaudid) 1 mg IVP Q2 PRN Last Admin: 10/21/16 07:39 Dose: 1 mg Vancomycin HCl/Dextrose (Vancocin) 100 mls @ 100 mls/hr IVPB Q12H [facility] Stop: 10/26/16 05:01 Last Admin: 10/21/16 05:18 Dose: 100 mls/hr Lactobacillus Acidophilus (Bacid Acidophilus) 1 cap PO BID [facility] Last Admin: 10/20/16 17:28 Dose: 1 cap Magnesium Hydroxide (Milk Of Magnesia) 30 ml PO DAILY PRN PRN Reason: Constipation Pantoprazole Sodium (Protonix Ec Tab) 20 mg PO DAILY [facility] Last Admin: 10/20/16 13:08 Dose: 20 mg Polyethylene Glycol (Miralax) 17 gm PO DAILY [facility] Last Admin: 10/20/16 13:09 Dose: 17 gm Trazodone HCl (Desyrel) 50 mg PO HS [facility] Last Admin: 10/20/16 21:51 Dose: 50 mg - Labs Labs: 10/21/16 05:30 10/21/16 05:30 - Constitutional Appears: Non-toxic, No Acute Distress - Head Exam Head Exam: ATRAUMATIC, NORMAL INSPECTION, NORMOCEPHALIC - Eye Exam Pupil Exam: NORMAL ACCOMODATION, PERRL - ENT Exam ENT Exam: Mucous Membranes Moist - Neck Exam Neck Exam: Normal Inspection - Respiratory Exam Respiratory Exam: Clear to Ausculation Bilateral, NORMAL BREATHING PATTERN. absent: Prolonged Expiratory Phase, Rales, Rhonchi, Wheezes - Cardiovascular Exam Cardiovascular Exam: REGULAR RHYTHM, +S1, +S2 - GI/Abdominal Exam GI & Abdominal Exam: Soft, Tenderness (RUQ), Normal Bowel Sounds. absent: Diminished Bowel Sounds, Hypoactive Bowel Sounds, Pulsatile Mass - Neurological Exam Neurological Exam: Alert, Awake, Oriented x3 - Psychiatric Exam Psychiatric exam: Normal Affect, Normal Mood - Skin Skin Exam: Dry, Intact, Normal Color, Warm Assessment and Plan - Assessment and Plan (Free Text) Assessment: (1) Intractable Abdominal Pain/ Crohn's disease Consult GI- Dr. Lopez- yvonneay to discharge home from GI perspective s/p partial colectomy revision on 10/14/16 Dilaudid 1mg IVP Q2h PRN Benadryl 25mg IVP Q2h PRN Toradol 10mg PO Q8h PRN Tylenol 650mg PO Q4h PRN Consult Gen surg- Dr. Taylor (2) Wound s/p debridement on 10/14/16 wound care nurse referral Vanco 1gm IV q24h started on 10/19/16- continued from previous visit Lactobacillus Acidophilus - 1 cap PO BID (3) Prophylaxis Protonix 20mg PO daily Lovenox 30mg SC Daily SCDs (4) Depression Lexapro 20mg PO Daily All management per Dr Barrett <Osvaldo Barrett S - Last Filed: 10/21/16 18:32> Objective - Vital Signs/Intake and Output Vital Signs (last 24 hours): Temp Pulse Resp BP Pulse Ox 97.7 F 101 H 20 106/77 97 10/21/16 15:59 10/21/16 15:59 10/21/16 15:59 10/21/16 15:59 10/21/16 15:59 - Medications Medications: Current Medications Acetaminophen (Tylenol 325mg Tab) 650 mg PO Q4 PRN PRN Reason: Pain, Mild (1-3) Diphenhydramine HCl (Benadryl) 25 mg IVP Q2 PRN PRN Reason: itching Last Admin: 10/21/16 18:04 Dose: 25 mg Enoxaparin Sodium (Lovenox) 30 mg SC DAILY [facility] Last Admin: 10/21/16 09:55 Dose: 30 mg Escitalopram Oxalate (Lexapro) 20 mg PO DAILY [facility] Last Admin: 10/21/16 09:55 Dose: 20 mg Gabapentin (Neurontin) 100 mg PO TID [facility] Last Admin: 10/21/16 17:08 Dose: 100 mg Hydromorphone HCl (Dilaudid) 1 mg IVP Q2 PRN Last Admin: 10/21/16 18:08 Dose: 1 mg Vancomycin HCl/Dextrose (Vancocin) 100 mls @ 100 mls/hr IVPB Q12H [facility] Stop: 10/26/16 05:01 Last Admin: 10/21/16 16:08 Dose: 100 mls/hr Lactobacillus Acidophilus (Bacid Acidophilus) 1 cap PO BID [facility] Last Admin: 10/21/16 17:08 Dose: 1 cap Magnesium Hydroxide (Milk Of Magnesia) 30 ml PO DAILY PRN PRN Reason: Constipation Pantoprazole Sodium (Protonix Ec Tab) 20 mg PO DAILY [facility] Last Admin: 10/21/16 09:55 Dose: 20 mg Polyethylene Glycol (Miralax) 17 gm PO DAILY [facility] Last Admin: 10/21/16 09:49 Dose: 17 gm Trazodone HCl (Desyrel) 50 mg PO HS [facility] Last Admin: 10/20/16 21:51 Dose: 50 mg Attending/Attestation - Attestation I have personally seen and examined this patient.: Yes I have fully participated in the care of the patient.: Yes I have reviewed all pertinent clinical information, including history, physical exam and plan: Yes Notes (Text): 10/21/16 18:32 case seen and discussed [facility] staff and resident
[2016-10-21] MEDS: POLYETHYLENE GLYCOL 3350 17 GM/Dose PACKET PO SCH (09:49)
[2016-10-21] MEDS: Enoxaparin 30 mg Syringe SC SCH (09:55)
[2016-10-21] MEDS: Pantoprazole 20 mg EC Tab PO SCH (09:55)
[2016-10-21] MEDS: Lactobacillus Acidophilus 500 MU Cap PO SCH ×2 (09:56→17:08)
--- NOTE | 2016-10-21 16:41 | CP.PCM.PN ---
Subjective - Date & Time of Evaluation Date of Evaluation: 10/21/16 Time of Evaluation: 11:20 - Subjective Subjective: clinically same Objective - Vital Signs/Intake and Output Vital Signs (last 24 hours): Temp Pulse Resp BP Pulse Ox 97.7 F 101 H 20 106/77 97 10/21/16 15:59 10/21/16 15:59 10/21/16 15:59 10/21/16 15:59 10/21/16 15:59 - Medications Medications: Current Medications Acetaminophen (Tylenol 325mg Tab) 650 mg PO Q4 PRN PRN Reason: Pain, Mild (1-3) Diphenhydramine HCl (Benadryl) 25 mg IVP Q2 PRN PRN Reason: itching Last Admin: 10/21/16 16:06 Dose: 25 mg Enoxaparin Sodium (Lovenox) 30 mg SC DAILY [facility] Last Admin: 10/21/16 09:55 Dose: 30 mg Escitalopram Oxalate (Lexapro) 20 mg PO DAILY [facility] Last Admin: 10/21/16 09:55 Dose: 20 mg Gabapentin (Neurontin) 100 mg PO TID [facility] Last Admin: 10/21/16 14:01 Dose: 100 mg Hydromorphone HCl (Dilaudid) 1 mg IVP Q2 PRN Last Admin: 10/21/16 16:07 Dose: 1 mg Vancomycin HCl/Dextrose (Vancocin) 100 mls @ 100 mls/hr IVPB Q12H [facility] Stop: 10/26/16 05:01 Last Admin: 10/21/16 16:08 Dose: 100 mls/hr Lactobacillus Acidophilus (Bacid Acidophilus) 1 cap PO BID [facility] Last Admin: 10/21/16 09:56 Dose: 1 cap Magnesium Hydroxide (Milk Of Magnesia) 30 ml PO DAILY PRN PRN Reason: Constipation Pantoprazole Sodium (Protonix Ec Tab) 20 mg PO DAILY [facility] Last Admin: 10/21/16 09:55 Dose: 20 mg Polyethylene Glycol (Miralax) 17 gm PO DAILY [facility] Last Admin: 10/21/16 09:49 Dose: 17 gm Trazodone HCl (Desyrel) 50 mg PO HS [facility] Last Admin: 10/20/16 21:51 Dose: 50 mg - Constitutional Appears: Well - Head Exam Head Exam: ATRAUMATIC, NORMAL INSPECTION, NORMOCEPHALIC - Eye Exam Eye Exam: EOMI, Normal appearance, PERRL Pupil Exam: NORMAL ACCOMODATION, PERRL - ENT Exam ENT Exam: Mucous Membranes Moist, Normal Exam - Neck Exam Neck Exam: Full ROM, Normal Inspection. absent: Lymphadenopathy - Respiratory Exam Respiratory Exam: Decreased Breath Sounds - Cardiovascular Exam Cardiovascular Exam: REGULAR RHYTHM, +S1, +S2 - GI/Abdominal Exam GI & Abdominal Exam: Soft, Diminished Bowel Sounds - Rectal Exam Rectal Exam: Deferred
--- NOTE | 2016-10-21 18:00 | CP.PCM.CON ---
<Dary Borges - Last Filed: 10/21/16 18:01> History of Present Illness - History of Present Illness History of Present Illness: General Surgery Consult: Dr. Taylor Pt is a 21M with a PMHx of Crohn's, partial colectomy and loop colostomy, s/p debridement of perineal, gluteal, and pre-sacral wound, and colostomy revision who is well known to our service. Patient was recently [facility] on with instructions to apply Medihoney to his wounds. However, he returned yesterday due to abdominal pain and continued drainage from his wounds. Surgery consulted to evaluate for further recs. Pt states his pain is slightly better compared to prior admissions and he has been able to apply Medihoney to his wounds himself. He denies other complaints at this time. Denies N/V, F/C, chest pain or SOB. PMH: Crohn's PSH: Loop Colostomy 04/2016. Partial colectomy- 2012 SH: No tobacco, EtOH, or drug use. Pt is a college student and lives with parents. All: Morphine- "redness and itching" Review of Systems - Review of Systems All systems: reviewed and no additional remarkable complaints except (as per HPI ) Past Patient History - Infectious Disease Hx of Infectious Diseases: None - Past Medical History & Family History Past Medical History?: Yes - Past Social History Smoking Status: Never Smoked - CARDIAC Hx Cardiac Disorders: No - PULMONARY Hx Respiratory Disorders: No - NEUROLOGICAL Hx Neurological Disorder: No - HEENT Hx HEENT Problems: No - RENAL Hx Chronic Kidney Disease: No - ENDOCRINE/METABOLIC Hx Endocrine Disorders: No - HEMATOLOGICAL/ONCOLOGICAL Hx Blood Disorders: No - INTEGUMENTARY Hx Dermatological Problems: Yes Other/Comment: Perineal wound - MUSCULOSKELETAL/RHEUMATOLOGICAL Hx Falls: No - GASTROINTESTINAL Hx Gastrointestinal Disorders: Yes Hx Colostomy: Yes (Left quadrant abd) Hx Crohn's Disease: Yes (COLOSTOMY 2015) - GENITOURINARY/GYNECOLOGICAL Hx Genitourinary Disorders: No - PSYCHIATRIC Hx Depression: Yes Hx Substance Use: No - SURGICAL HISTORY Hx Surgeries: Yes (SEE COMMENT) Other/Comment: LOOP COLOSTOMY. Perineal wound. Left upper arm PICC Line - ANESTHESIA Hx Anesthesia: Yes Hx Anesthesia Reactions: No Hx Malignant Hyperthermia: No Meds Allergies/Adverse Reactions: Allergies Allergy/AdvReac Type Severity Reaction Status Date / Time morphine Allergy ITCHING Verified 10/19/16 12:19 - Medications Medications: Current Medications Acetaminophen (Tylenol 325mg Tab) 650 mg PO Q4 PRN PRN Reason: Pain, Mild (1-3) Diphenhydramine HCl (Benadryl) 25 mg IVP Q2 PRN PRN Reason: itching Last Admin: 10/21/16 16:06 Dose: 25 mg Enoxaparin Sodium (Lovenox) 30 mg SC DAILY [facility] Last Admin: 10/21/16 09:55 Dose: 30 mg Escitalopram Oxalate (Lexapro) 20 mg PO DAILY [facility] Last Admin: 10/21/16 09:55 Dose: 20 mg Gabapentin (Neurontin) 100 mg PO TID [facility] Last Admin: 10/21/16 17:08 Dose: 100 mg Hydromorphone HCl (Dilaudid) 1 mg IVP Q2 PRN Last Admin: 10/21/16 16:07 Dose: 1 mg Vancomycin HCl/Dextrose (Vancocin) 100 mls @ 100 mls/hr IVPB Q12H [facility] Stop: 10/26/16 05:01 Last Admin: 10/21/16 16:08 Dose: 100 mls/hr Lactobacillus Acidophilus (Bacid Acidophilus) 1 cap PO BID [facility] Last Admin: 10/21/16 17:08 Dose: 1 cap Magnesium Hydroxide (Milk Of Magnesia) 30 ml PO DAILY PRN PRN Reason: Constipation Pantoprazole Sodium (Protonix Ec Tab) 20 mg PO DAILY [facility] Last Admin: 10/21/16 09:55 Dose: 20 mg Polyethylene Glycol (Miralax) 17 gm PO DAILY [facility] Last Admin: 10/21/16 09:49 Dose: 17 gm Trazodone HCl (Desyrel) 50 mg PO HS [facility] Last Admin: 10/20/16 21:51 Dose: 50 mg Physical Exam - Constitutional Appears: Well, No Acute Distress - Head Exam Head Exam: ATRAUMATIC, NORMOCEPHALIC - Eye Exam Eye Exam: Normal appearance - ENT Exam ENT Exam: Mucous Membranes Moist - Respiratory Exam Respiratory Exam: NORMAL BREATHING PATTERN - Cardiovascular Exam Cardiovascular Exam: RRR - GI/Abdominal Exam GI & Abdominal Exam: Soft. absent: Distended, Tenderness Additional comments: colostomy in place with solid stool in bag - Rectal Exam Additional comments: perineal wound smaller compared to before; no active drainage noted gluteal wounds x 2 with some purulent drainage. Superior gluteal wound with some fluctuance at the apex - Extremities Exam Extremities exam: Positive for: full ROM. Negative for: tenderness - Neurological Exam Neurological exam: Alert, Oriented x3 - Skin Skin Exam: Dry, Intact, Warm Results - Vital Signs Recent Vital Signs: Last Vital Signs Temp 97.7 F 10/21/16 15:59 Pulse 101 H 10/21/16 15:59 Resp 20 10/21/16 15:59 BP 106/77 10/21/16 15:59 Pulse Ox 97 10/21/16 15:59 - Labs Result Diagrams: 10/21/16 05:30 10/21/16 05:30 Assessment & Plan - Assessment and Plan (Free Text) Assessment: 21M with complex perineal and gluteal wounds secondary to Crohn's Disease s/p loop colostomy Plan: - continue local wound care with medihoney 3 x per day - continue ABX - ID consult for further recs - monitor WBC - wean off dilaudid - encourage ambulation - d/w Dr. Claudia Borges, PGY-2\\ Surgery <Temo Taylor - Last Filed: 10/26/16 19:03> Meds - Medications Medications: Current Medications Acetaminophen (Tylenol 325mg Tab) 650 mg PO Q4 PRN PRN Reason: Pain, Mild (1-3) Diphenhydramine HCl (Benadryl) 25 mg IVP Q2 PRN Stop: 11/04/16 00:01 Last Admin: 10/26/16 18:12 Dose: 25 mg Enoxaparin Sodium (Lovenox) 30 mg SC DAILY [facility] Last Admin: 10/26/16 09:58 Dose: 30 mg Escitalopram Oxalate (Lexapro) 20 mg PO DAILY [facility] Last Admin: 10/26/16 09:57 Dose: 20 mg Gabapentin (Neurontin) 100 mg PO TID [facility] Last Admin: 10/26/16 18:21 Dose: 100 mg Hydromorphone HCl (Dilaudid) 1 mg IVP Q2 PRN Last Admin: 10/26/16 18:12 Dose: 1 mg Cefazolin Sodium/Dextrose (Ancef Iv 1 Gm Duplex) 50 mls @ 100 mls/hr IVPB Q8H [facility] Last Admin: 10/26/16 18:22 Dose: 100 mls/hr Lactobacillus Acidophilus (Bacid Acidophilus) 1 cap PO BID [facility] Last Admin: 10/26/16 18:21 Dose: 1 cap Magnesium Hydroxide (Milk Of Magnesia) 30 ml PO DAILY PRN PRN Reason: Constipation Pantoprazole Sodium (Protonix Ec Tab) 20 mg PO DAILY [facility] Last Admin: 10/26/16 09:58 Dose: 20 mg Polyethylene Glycol (Miralax) 17 gm PO DAILY [facility] Last Admin: 10/26/16 09:58 Dose: 17 gm Trazodone HCl (Desyrel) 50 mg PO HS [facility] Last Admin: 10/25/16 21:41 Dose: 50 mg Results - Vital Signs Recent Vital Signs: Last Vital Signs Temp 98.2 F 10/26/16 15:15 Pulse 96 H 10/26/16 15:15 Resp 98 H 10/26/16 15:15 BP 110/73 10/26/16 15:15 Pulse Ox 20 L 10/26/16 15:15 - Labs Result Diagrams: 10/25/16 08:06 10/26/16 08:27 Labs: Laboratory Results - last 24 hr 10/26/16 08:27 Sodium 138 Potassium 4.1 Chloride 95 L Carbon Dioxide 30 Anion Gap 17 BUN 6 L Creatinine 0.7 L Est GFR ( Amer) > 60 Est GFR (Non-Af Amer) > 60 Random Glucose 117 H Calcium 8.3 L Random Vancomycin 13.34 Attending/Attestation - Attestation I have personally seen and examined this patient.: Yes I have fully participated in the care of the patient.: Yes I have reviewed all pertinent clinical information: Yes Notes (Text): 10/26/16 18:52 Pt was seen and examined at bedside on 10/21/16 Agree with above note and assessment. Pt with Leucocytosis with Perineal wound with possible Abscess C/w IV antibiotics ID consult GI consult Plan d.w pt in detail We will f/u tomorrow.
[2016-10-22] MEDS: DiphenhydrAMINE 50 mg/ml Inj IVP PRN ×10 (00:27→22:23)
[2016-10-22] MEDS: Vancomycin 500mg/D5W 100 ml 100 ML IVPB SCH ×2 (05:18→20:27)
[2016-10-22 06:15] LABS: BASO # 0.1 K/uL (0.0-0.2); BASO % 0.7 % (0.0-2.0); EOS # 0.5 K/uL (0.0-0.7); EOS % 4.4 % (0.0-4.0); HEMATOCRIT 34.7 % (35.0-51.0); LYMPH # 2.2 K/uL (1.0-4.3); LYMPH % 20.4 % (20.0-40.0); MEAN CELL VOLUME 66.6 fL (80.0-94.0); MEAN CORPUSCULAR HEMOGLOBIN 21.3 pg (27.0-31.0); MEAN CORPUSCULAR HGB CONC 31.9 g/dL (33.0-37.0); MEAN PLATELET VOLUME 8.2 fL (7.2-11.7); MONO # 0.7 K/uL (0.0-0.8); MONO % 6.5 % (0.0-10.0); RED CELL DISTRIBUTION WIDTH 15.8 % (11.5-14.5); WHITE BLOOD COUNT 10.6 K/uL (4.8-10.8)
[2016-10-22 06:22] LABS: CHLORIDE 97 mmol/L (98-107); POTASSIUM 3.6 mmol/L (3.6-5.2); SODIUM 140 mmol/L (132-148)
[2016-10-22 06:25] LABS: ALB/GLOB RATIO 0.8 (1.0-2.1); ALKALINE PHOSPHATASE 116 U/L (38-126); ALT/SGPT 26 U/L (21-72); AST/SGOT 28 U/L (17-59); BILIRUBIN,TOTAL < 0.1 mg/dL (0.2-1.3); BLOOD UREA NITROGEN 7 mg/dL (9-20); CARBON DIOXIDE 32 mmol/L (22-30); GFR AFRICAN-AMERICAN > 60; GLUCOSE,RANDOM 108 mg/dL (75-110); TOTAL PROTEIN 7.2 g/dL (6.3-8.3)
[2016-10-22 06:26] LABS: CALCIUM 8.6 mg/dl (8.6-10.4)
--- NOTE | 2016-10-22 09:08 | CP.PCM.PN ---
<Keith Marr - Last Filed: 10/22/16 09:05> Subjective - Date & Time of Evaluation Date of Evaluation: 10/22/16 Time of Evaluation: 07:25 - Subjective Subjective: General Surgery Pt S&E, SHAREO. Complaining of pain on back above gluteal cleft. Otherwise changing dressings himself. Objective - Vital Signs/Intake and Output Vital Signs (last 24 hours): Temp Pulse Resp BP Pulse Ox 98.6 F 92 H 18 101/68 98 10/22/16 08:33 10/22/16 08:33 10/22/16 08:33 10/22/16 08:33 10/22/16 08:33 Intake and Output: 10/22/16 10/22/16 06:59 18:59 Intake Total 100 Balance 100 - Medications Medications: Current Medications Acetaminophen (Tylenol 325mg Tab) 650 mg PO Q4 PRN PRN Reason: Pain, Mild (1-3) Diphenhydramine HCl (Benadryl) 25 mg IVP Q2 PRN PRN Reason: itching Last Admin: 10/22/16 08:18 Dose: 25 mg Enoxaparin Sodium (Lovenox) 30 mg SC DAILY [facility] Last Admin: 10/21/16 09:55 Dose: 30 mg Escitalopram Oxalate (Lexapro) 20 mg PO DAILY [facility] Last Admin: 10/21/16 09:55 Dose: 20 mg Gabapentin (Neurontin) 100 mg PO TID [facility] Last Admin: 10/21/16 17:08 Dose: 100 mg Hydromorphone HCl (Dilaudid) 1 mg IVP Q2 PRN Last Admin: 10/22/16 08:18 Dose: 1 mg Vancomycin HCl/Dextrose (Vancocin) 100 mls @ 100 mls/hr IVPB Q12H [facility] Stop: 10/26/16 05:01 Last Admin: 10/22/16 05:18 Dose: 100 mls/hr Lactobacillus Acidophilus (Bacid Acidophilus) 1 cap PO BID [facility] Last Admin: 10/21/16 17:08 Dose: 1 cap Magnesium Hydroxide (Milk Of Magnesia) 30 ml PO DAILY PRN PRN Reason: Constipation Pantoprazole Sodium (Protonix Ec Tab) 20 mg PO DAILY [facility] Last Admin: 10/21/16 09:55 Dose: 20 mg Polyethylene Glycol (Miralax) 17 gm PO DAILY [facility] Last Admin: 10/21/16 09:49 Dose: 17 gm Trazodone HCl (Desyrel) 50 mg PO HS [facility] Last Admin: 10/21/16 21:31 Dose: 50 mg - Labs Labs: 10/22/16 06:08 10/22/16 06:08 - Constitutional Appears: Non-toxic, No Acute Distress - Head Exam Head Exam: ATRAUMATIC, NORMOCEPHALIC - Eye Exam Eye Exam: EOMI. absent: Scleral icterus - Respiratory Exam Respiratory Exam: NORMAL BREATHING PATTERN. absent: Respiratory Distress - GI/Abdominal Exam GI & Abdominal Exam: Soft. absent: Distended, Tenderness Additional comments: ostomy functioning well - Back Exam Back Exam: tenderness (above gluteal cleft over area of fluctuance) - Neurological Exam Neurological Exam: Alert, Awake, Oriented x3 - Skin Skin Exam: Dry, Warm Assessment and Plan - Assessment and Plan (Free Text) Assessment: 21M with complex perineal and gluteal wounds secondary to Crohn's Disease s/p loop colostomy Plan: - cont. wound care with medihoney 3 x per day - cont. Abx - F/U ID recs - wean dilaudid requirements - May require I&D of area of fluctuance D/W Dr. Claudia Marr PGY3 <Temo Taylor - Last Filed: 10/26/16 19:14> Objective - Vital Signs/Intake and Output Vital Signs (last 24 hours): Temp Pulse Resp BP Pulse Ox 98.2 F 96 H 98 H 110/73 20 L 10/26/16 15:15 10/26/16 15:15 10/26/16 15:15 10/26/16 15:15 10/26/16 15:15 - Medications Medications: Current Medications Acetaminophen (Tylenol 325mg Tab) 650 mg PO Q4 PRN PRN Reason: Pain, Mild (1-3) Diphenhydramine HCl (Benadryl) 25 mg IVP Q2 PRN Stop: 11/04/16 00:01 Last Admin: 10/26/16 18:12 Dose: 25 mg Enoxaparin Sodium (Lovenox) 30 mg SC DAILY [facility] Last Admin: 10/26/16 09:58 Dose: 30 mg Escitalopram Oxalate (Lexapro) 20 mg PO DAILY [facility] Last Admin: 10/26/16 09:57 Dose: 20 mg Gabapentin (Neurontin) 100 mg PO TID [facility] Last Admin: 10/26/16 18:21 Dose: 100 mg Hydromorphone HCl (Dilaudid) 1 mg IVP Q2 PRN Last Admin: 10/26/16 18:12 Dose: 1 mg Cefazolin Sodium/Dextrose (Ancef Iv 1 Gm Duplex) 50 mls @ 100 mls/hr IVPB Q8H [facility] Last Admin: 10/26/16 18:22 Dose: 100 mls/hr Lactobacillus Acidophilus (Bacid Acidophilus) 1 cap PO BID [facility] Last Admin: 10/26/16 18:21 Dose: 1 cap Magnesium Hydroxide (Milk Of Magnesia) 30 ml PO DAILY PRN PRN Reason: Constipation Pantoprazole Sodium (Protonix Ec Tab) 20 mg PO DAILY [facility] Last Admin: 10/26/16 09:58 Dose: 20 mg Polyethylene Glycol (Miralax) 17 gm PO DAILY [facility] Last Admin: 10/26/16 09:58 Dose: 17 gm Trazodone HCl (Desyrel) 50 mg PO HS [facility] Last Admin: 10/25/16 21:41 Dose: 50 mg - Labs Labs: 10/25/16 08:06 10/26/16 08:27 Attending/Attestation - Attestation I have personally seen and examined this patient.: Yes I have fully participated in the care of the patient.: Yes I have reviewed all pertinent clinical information, including history, physical exam and plan: Yes Notes (Text): 10/26/16 19:04 Pt was seen and examined at bedside on 10/22/16 Agree with above note and assessment. Pt with Presacral abscess with pain in sacral area Pt would need I & D of abscess and debridement of wounds. Plan d.w pt in detail We will f/u tomorrow.
[2016-10-22] MEDS: Pantoprazole 20 mg EC Tab PO SCH (10:39)
[2016-10-22] MEDS: Enoxaparin 30 mg Syringe SC SCH (10:39)
[2016-10-22] MEDS: POLYETHYLENE GLYCOL 3350 17 GM/Dose PACKET PO SCH (10:39)
[2016-10-22] MEDS: Lactobacillus Acidophilus 500 MU Cap PO SCH ×2 (10:39→18:27)
--- NOTE | 2016-10-22 15:15 | CP.PCM.PN ---
Subjective - Date & Time of Evaluation Date of Evaluation: 10/22/16 Time of Evaluation: 07:30 - Subjective Subjective: Medicine Note- Dr. Barrett's service Patient was seen and examined at bedside. Patient reports no acute complaints at this time. Tolerating PO, no nausea, vomiting. No events overnight. Objective - Vital Signs/Intake and Output Vital Signs (last 24 hours): Temp Pulse Resp BP Pulse Ox 98.6 F 92 H 18 101/68 98 10/22/16 08:33 10/22/16 08:45 10/22/16 08:33 10/22/16 08:33 10/22/16 08:33 Intake and Output: 10/22/16 10/22/16 06:59 18:59 Intake Total 100 700 Output Total 400 Balance 100 300 - Medications Medications: Current Medications Acetaminophen (Tylenol 325mg Tab) 650 mg PO Q4 PRN PRN Reason: Pain, Mild (1-3) Diphenhydramine HCl (Benadryl) 25 mg IVP Q2 PRN PRN Reason: itching Last Admin: 10/22/16 13:24 Dose: 25 mg Enoxaparin Sodium (Lovenox) 30 mg SC DAILY [facility] Last Admin: 10/22/16 10:39 Dose: 30 mg Escitalopram Oxalate (Lexapro) 20 mg PO DAILY [facility] Last Admin: 10/22/16 10:39 Dose: 20 mg Gabapentin (Neurontin) 100 mg PO TID [facility] Last Admin: 10/22/16 13:24 Dose: 100 mg Hydromorphone HCl (Dilaudid) 1 mg IVP Q2 PRN Last Admin: 10/22/16 13:23 Dose: 1 mg Vancomycin HCl/Dextrose (Vancocin) 100 mls @ 100 mls/hr IVPB Q12H [facility] Stop: 10/26/16 05:01 Last Admin: 10/22/16 05:18 Dose: 100 mls/hr Lactobacillus Acidophilus (Bacid Acidophilus) 1 cap PO BID [facility] Last Admin: 10/22/16 10:39 Dose: 1 cap Magnesium Hydroxide (Milk Of Magnesia) 30 ml PO DAILY PRN PRN Reason: Constipation Pantoprazole Sodium (Protonix Ec Tab) 20 mg PO DAILY [facility] Last Admin: 10/22/16 10:39 Dose: 20 mg Pneumococcal Polyvalent Vaccine (Pneumovax 23 Vaccine) 0.5 ml IM .ONCE ONE Stop: 10/24/16 09:49 Polyethylene Glycol (Miralax) 17 gm PO DAILY [facility] Last Admin: 10/22/16 10:39 Dose: 17 gm Trazodone HCl (Desyrel) 50 mg PO HS [facility] Last Admin: 10/21/16 21:31 Dose: 50 mg - Labs Labs: 10/22/16 06:08 10/22/16 06:08 - Constitutional Appears: Non-toxic, No Acute Distress - Head Exam Head Exam: ATRAUMATIC, NORMAL INSPECTION, NORMOCEPHALIC - Eye Exam Pupil Exam: NORMAL ACCOMODATION - ENT Exam ENT Exam: Mucous Membranes Moist - Respiratory Exam Respiratory Exam: Clear to Ausculation Bilateral, NORMAL BREATHING PATTERN. absent: Prolonged Expiratory Phase, Rales, Rhonchi, Wheezes - Cardiovascular Exam Cardiovascular Exam: REGULAR RHYTHM, +S1, +S2 - GI/Abdominal Exam GI & Abdominal Exam: Soft, Normal Bowel Sounds. absent: Tenderness, Diminished Bowel Sounds, Hernia, Hypoactive Bowel Sounds - Extremities Exam Extremities Exam: Normal Capillary Refill, Normal Inspection - Neurological Exam Neurological Exam: Alert, Awake, Oriented x3 - Psychiatric Exam Psychiatric exam: Normal Affect, Normal Mood - Skin Skin Exam: Dry, Normal Color, Warm. absent: Intact Additional comments: significant ulcerations in perineal area and along gluteal cleft, palpable tender mass above right buttock Assessment and Plan - Assessment and Plan (Free Text) Assessment: (1) Intractable Abdominal Pain/ Crohn's disease Consult GI- Dr. Lopez- okay to discharge home from GI perspective s/p partial colectomy revision on 10/14/16 Dilaudid 1mg IVP Q2h PRN Benadryl 25mg IVP Q2h PRN Toradol 10mg PO Q8h PRN Tylenol 650mg PO Q4h PRN Consult Gen surg- Dr. Taylor (2) Wound s/p debridement on 10/14/16 wound care nurse referral Vanco 1gm IV q24h started on 10/19/16- continued from previous visit Lactobacillus Acidophilus - 1 cap PO BID New abscess formation found on posterior buttocks. Per surgery, likely to either take to OR tomorrow or possibly do a bedside I&D. (3) Depression Lexapro 20mg PO Daily (4) Prophylaxis Protonix 20mg PO daily Lovenox 30mg SC Daily [facility]
--- NOTE | 2016-10-22 18:19 | CP.PCM.PN ---
Subjective - Date & Time of Evaluation Date of Evaluation: 10/22/16 Time of Evaluation: 10:40 - Subjective Subjective: clinically same Objective - Vital Signs/Intake and Output Vital Signs (last 24 hours): Temp Pulse Resp BP Pulse Ox 98 F 99 H 20 104/74 96 10/22/16 15:57 10/22/16 15:57 10/22/16 15:57 10/22/16 15:57 10/22/16 15:57 Intake and Output: 10/22/16 10/22/16 06:59 18:59 Intake Total 100 700 Output Total 400 Balance 100 300 - Medications Medications: Current Medications Acetaminophen (Tylenol 325mg Tab) 650 mg PO Q4 PRN PRN Reason: Pain, Mild (1-3) Diphenhydramine HCl (Benadryl) 25 mg IVP Q2 PRN PRN Reason: itching Last Admin: 10/22/16 16:30 Dose: 25 mg Enoxaparin Sodium (Lovenox) 30 mg SC DAILY [facility] Last Admin: 10/22/16 10:39 Dose: 30 mg Escitalopram Oxalate (Lexapro) 20 mg PO DAILY [facility] Last Admin: 10/22/16 10:39 Dose: 20 mg Gabapentin (Neurontin) 100 mg PO TID [facility] Last Admin: 10/22/16 13:24 Dose: 100 mg Hydromorphone HCl (Dilaudid) 1 mg IVP Q2 PRN Last Admin: 10/22/16 16:27 Dose: 1 mg Vancomycin HCl/Dextrose (Vancocin) 100 mls @ 100 mls/hr IVPB Q12H [facility] Stop: 10/26/16 05:01 Last Admin: 10/22/16 05:18 Dose: 100 mls/hr Lactobacillus Acidophilus (Bacid Acidophilus) 1 cap PO BID [facility] Last Admin: 10/22/16 10:39 Dose: 1 cap Magnesium Hydroxide (Milk Of Magnesia) 30 ml PO DAILY PRN PRN Reason: Constipation Pantoprazole Sodium (Protonix Ec Tab) 20 mg PO DAILY [facility] Last Admin: 10/22/16 10:39 Dose: 20 mg Pneumococcal Polyvalent Vaccine (Pneumovax 23 Vaccine) 0.5 ml IM .ONCE ONE Stop: 10/24/16 09:49 Polyethylene Glycol (Miralax) 17 gm PO DAILY [facility] Last Admin: 10/22/16 10:39 Dose: 17 gm Trazodone HCl (Desyrel) 50 mg PO HS [facility] Last Admin: 10/21/16 21:31 Dose: 50 mg - Labs Labs: 10/22/16 06:08 10/22/16 06:08 - Constitutional Appears: Well - Head Exam Head Exam: ATRAUMATIC, NORMAL INSPECTION, NORMOCEPHALIC - Eye Exam Eye Exam: EOMI, Normal appearance, PERRL Pupil Exam: NORMAL ACCOMODATION, PERRL - ENT Exam ENT Exam: Mucous Membranes Moist, Normal Exam - Neck Exam Neck Exam: Full ROM, Normal Inspection. absent: Lymphadenopathy - Respiratory Exam Respiratory Exam: Decreased Breath Sounds - Cardiovascular Exam Cardiovascular Exam: REGULAR RHYTHM, +S1, +S2 - GI/Abdominal Exam GI & Abdominal Exam: Soft, Diminished Bowel Sounds - Rectal Exam Rectal Exam: Deferred
--- NOTE | 2016-10-22 18:45 | CP.PCM.CON ---
History of Present Illness - History of Present Illness History of Present Illness: a 21M with a PMHx of Crohn's, partial colectomy and loop colostomy, s/p debridement of perineal, gluteal, and pre-sacral wound, and colostomy revision Patient was recently discharged to [facility] on 10/17/16 with instructions to apply Medihoney to his wounds. However, he returned yesterday due to abdominal pain and continued drainage from his wounds. c/o NEW WOUNDS TO BUTTOCK AND NONHEALING WOUND TO RIGHT GROIN/PERINEUM GOING TO OR FOR I AND D PMH: Crohn's PSH: Loop Colostomy 04/2016. Partial colectomy- 2012 SH: No tobacco, EtOH, or drug use. Pt is a college student and lives with parents. All: Morphine- "redness and itching" Past Patient History - Infectious Disease Hx of Infectious Diseases: None - Past Medical History & Family History Past Medical History?: Yes - Past Social History Smoking Status: Never Smoked - CARDIAC Hx Cardiac Disorders: No - PULMONARY Hx Respiratory Disorders: No - NEUROLOGICAL Hx Neurological Disorder: No - HEENT Hx HEENT Problems: No - RENAL Hx Chronic Kidney Disease: No - ENDOCRINE/METABOLIC Hx Endocrine Disorders: No - HEMATOLOGICAL/ONCOLOGICAL Hx Blood Disorders: No - INTEGUMENTARY Hx Dermatological Problems: Yes Other/Comment: Perineal wound - MUSCULOSKELETAL/RHEUMATOLOGICAL Hx Falls: No - GASTROINTESTINAL Hx Gastrointestinal Disorders: Yes Hx Colostomy: Yes (Left quadrant abd) Hx Crohn's Disease: Yes (COLOSTOMY 2015) - GENITOURINARY/GYNECOLOGICAL Hx Genitourinary Disorders: No - PSYCHIATRIC Hx Depression: Yes Hx Substance Use: No - SURGICAL HISTORY Hx Surgeries: Yes (SEE COMMENT) Other/Comment: LOOP COLOSTOMY. Perineal wound. Left upper arm PICC Line - ANESTHESIA Hx Anesthesia: Yes Hx Anesthesia Reactions: No Hx Malignant Hyperthermia: No Meds Allergies/Adverse Reactions: Allergies Allergy/AdvReac Type Severity Reaction Status Date / Time morphine Allergy ITCHING Verified 10/19/16 12:19 - Medications Medications: Current Medications Acetaminophen (Tylenol 325mg Tab) 650 mg PO Q4 PRN PRN Reason: Pain, Mild (1-3) Diphenhydramine HCl (Benadryl) 25 mg IVP Q2 PRN PRN Reason: itching Last Admin: 10/22/16 18:25 Dose: 25 mg Enoxaparin Sodium (Lovenox) 30 mg SC DAILY [facility] Last Admin: 10/22/16 10:39 Dose: 30 mg Escitalopram Oxalate (Lexapro) 20 mg PO DAILY [facility] Last Admin: 10/22/16 10:39 Dose: 20 mg Gabapentin (Neurontin) 100 mg PO TID [facility] Last Admin: 10/22/16 13:24 Dose: 100 mg Hydromorphone HCl (Dilaudid) 1 mg IVP Q2 PRN Last Admin: 10/22/16 18:24 Dose: 1 mg Vancomycin HCl/Dextrose (Vancocin) 100 mls @ 100 mls/hr IVPB Q12H [facility] Stop: 10/26/16 05:01 Last Admin: 10/22/16 05:18 Dose: 100 mls/hr Lactobacillus Acidophilus (Bacid Acidophilus) 1 cap PO BID [facility] Last Admin: 10/22/16 18:27 Dose: 1 cap Magnesium Hydroxide (Milk Of Magnesia) 30 ml PO DAILY PRN PRN Reason: Constipation Pantoprazole Sodium (Protonix Ec Tab) 20 mg PO DAILY [facility] Last Admin: 10/22/16 10:39 Dose: 20 mg Pneumococcal Polyvalent Vaccine (Pneumovax 23 Vaccine) 0.5 ml IM .ONCE ONE Stop: 10/24/16 09:49 Polyethylene Glycol (Miralax) 17 gm PO DAILY [facility] Last Admin: 10/22/16 10:39 Dose: 17 gm Trazodone HCl (Desyrel) 50 mg PO HS [facility] Last Admin: 10/21/16 21:31 Dose: 50 mg Results - Vital Signs Recent Vital Signs: Last Vital Signs Temp 98 F 10/22/16 15:57 Pulse 99 H 10/22/16 15:57 Resp 20 10/22/16 15:57 BP 104/74 10/22/16 15:57 Pulse Ox 96 10/22/16 15:57 - Labs Result Diagrams: 10/22/16 06:08 10/22/16 06:08 Labs: Laboratory Results - last 24 hr 10/22/16 06:08 WBC 10.6 RBC 5.21 Hgb 11.1 L Hct 34.7 L MCV 66.6 L MCH 21.3 L MCHC 31.9 L RDW 15.8 H Plt Count 326 MPV 8.2 Neut % (Auto) 68.0 Lymph % (Auto) 20.4 [place] % (Auto) 6.5 Eos % (Auto) 4.4 H Baso % (Auto) 0.7 Neut # 7.2 H Lymph # 2.2 [place] # 0.7 Eos # 0.5 Baso # 0.1 Sodium 140 Potassium 3.6 Chloride 97 L Carbon Dioxide 32 H Anion Gap 15 BUN 7 L Creatinine 0.8 Est GFR ( Amer) > 60 Est GFR (Non-Af Amer) > 60 Random Glucose 108 Calcium 8.6 Total Bilirubin < 0.1 L AST 28 ALT 26 Alkaline Phosphatase 116 Total Protein 7.2 Albumin 3.2 L Globulin 4.0 H Albumin/Globulin Ratio 0.8 L
[2016-10-22] MEDS: ceFAZolin IV 1 gm in Dextrose 50 ML IVPB SCH (19:50)
[2016-10-23] MEDS: DiphenhydrAMINE 50 mg/ml Inj IVP PRN ×9 (00:39→21:37)
[2016-10-23] MEDS: ceFAZolin IV 1 gm in Dextrose 50 ML IVPB SCH ×3 (02:51→19:00)
[2016-10-23] MEDS: Vancomycin 500mg/D5W 100 ml 100 ML IVPB SCH ×2 (05:25→17:43)
[2016-10-23 08:08] LABS: CHLORIDE 94 mmol/L (98-107); POTASSIUM 3.6 mmol/L (3.6-5.2); SODIUM 137 mmol/L (132-148)
[2016-10-23 08:10] LABS: ALB/GLOB RATIO 0.8 (1.0-2.1); ALKALINE PHOSPHATASE 123 U/L (38-126); AST/SGOT 20 U/L (17-59); BILIRUBIN,TOTAL < 0.1 mg/dL (0.2-1.3); CARBON DIOXIDE 30 mmol/L (22-30); GFR AFRICAN-AMERICAN > 60; TOTAL PROTEIN 7.1 g/dL (6.3-8.3)
[2016-10-23 08:11] LABS: ALT/SGPT 20 U/L (21-72); BLOOD UREA NITROGEN 8 mg/dL (9-20); CALCIUM 7.9 mg/dl (8.6-10.4); GLUCOSE,RANDOM 114 mg/dL (75-110)
[2016-10-23 08:15] LABS: BASO # 0.1 K/uL (0.0-0.2); BASO % 0.4 % (0.0-2.0); EOS # 0.6 K/uL (0.0-0.7); EOS % 4.8 % (0.0-4.0); HEMATOCRIT 26.1 % (35.0-51.0); LYMPH # 3.1 K/uL (1.0-4.3); LYMPH % 25.7 % (20.0-40.0); MEAN CELL VOLUME 67.4 fL (80.0-94.0); MEAN CORPUSCULAR HEMOGLOBIN 21.5 pg (27.0-31.0); MEAN PLATELET VOLUME 8.2 fL (7.2-11.7); MONO # 0.9 K/uL (0.0-0.8); MONO % 7.5 % (0.0-10.0); RED CELL DISTRIBUTION WIDTH 15.7 % (11.5-14.5); WHITE BLOOD COUNT 12.3 K/uL (4.8-10.8)
[2016-10-23] MEDS: Lactobacillus Acidophilus 500 MU Cap PO SCH ×2 (10:28→17:38)
[2016-10-23] MEDS: POLYETHYLENE GLYCOL 3350 17 GM/Dose PACKET PO SCH (10:28)
[2016-10-23] MEDS: Enoxaparin 30 mg Syringe SC SCH (10:28)
[2016-10-23] MEDS: Pantoprazole 20 mg EC Tab PO SCH (10:29)
--- NOTE | 2016-10-23 12:42 | CP.PCM.PN ---
Subjective - Date & Time of Evaluation Date of Evaluation: 10/23/16 Time of Evaluation: 10:40 Objective - Vital Signs/Intake and Output Vital Signs (last 24 hours): Temp Pulse Resp BP Pulse Ox 98.7 F 80 18 100/66 98 10/23/16 08:00 10/23/16 09:00 10/23/16 08:00 10/23/16 08:00 10/23/16 08:00 Intake and Output: 10/23/16 10/23/16 06:59 18:59 Output Total 400 Balance -400 - Medications Medications: Current Medications Acetaminophen (Tylenol 325mg Tab) 650 mg PO Q4 PRN PRN Reason: Pain, Mild (1-3) Diphenhydramine HCl (Benadryl) 25 mg IVP Q2 PRN PRN Reason: itching Last Admin: 10/23/16 10:02 Dose: 25 mg Enoxaparin Sodium (Lovenox) 30 mg SC DAILY [facility] Last Admin: 10/23/16 10:28 Dose: Not Given Escitalopram Oxalate (Lexapro) 20 mg PO DAILY [facility] Last Admin: 10/23/16 10:28 Dose: Not Given Gabapentin (Neurontin) 100 mg PO TID [facility] Last Admin: 10/23/16 10:28 Dose: Not Given Hydromorphone HCl (Dilaudid) 1 mg IVP Q2 PRN Last Admin: 10/23/16 10:02 Dose: 1 mg Vancomycin HCl/Dextrose (Vancocin) 100 mls @ 100 mls/hr IVPB Q12H [facility] Stop: 10/26/16 05:01 Last Admin: 10/23/16 05:25 Dose: 100 mls/hr Cefazolin Sodium/Dextrose (Ancef Iv 1 Gm Duplex) 50 mls @ 100 mls/hr IVPB Q8H [facility] Last Admin: 10/23/16 12:24 Dose: 100 mls/hr Lactobacillus Acidophilus (Bacid Acidophilus) 1 cap PO BID [facility] Last Admin: 10/23/16 10:28 Dose: Not Given Magnesium Hydroxide (Milk Of Magnesia) 30 ml PO DAILY PRN PRN Reason: Constipation Pantoprazole Sodium (Protonix Ec Tab) 20 mg PO DAILY [facility] Last Admin: 10/23/16 10:29 Dose: Not Given Pneumococcal Polyvalent Vaccine (Pneumovax 23 Vaccine) 0.5 ml IM .ONCE ONE Stop: 10/24/16 09:49 Polyethylene Glycol (Miralax) 17 gm PO DAILY [facility] Last Admin: 10/23/16 10:28 Dose: Not Given Trazodone HCl (Desyrel) 50 mg PO HS [facility] Last Admin: 10/22/16 22:23 Dose: 50 mg - Labs Labs: 10/23/16 07:53 10/23/16 07:53
--- NOTE | 2016-10-23 12:58 | CP.PCM.PN ---
Subjective - Date & Time of Evaluation Date of Evaluation: 10/23/16 Time of Evaluation: 10:00 - Subjective Subjective: PGY2 on medicine Dr. Barrett service: Pt seen and examined at bedside this morning. Complains pain in his perineal area. patient otherwise have no other complaints at the moment. Scheduled for abscess I&D today. Objective - Vital Signs/Intake and Output Vital Signs (last 24 hours): Temp Pulse Resp BP Pulse Ox 98.7 F 80 18 100/66 98 10/23/16 08:00 10/23/16 09:00 10/23/16 08:00 10/23/16 08:00 10/23/16 08:00 Intake and Output: 10/23/16 10/23/16 06:59 18:59 Output Total 400 Balance -400 - Medications Medications: Current Medications Acetaminophen (Tylenol 325mg Tab) 650 mg PO Q4 PRN PRN Reason: Pain, Mild (1-3) Diphenhydramine HCl (Benadryl) 25 mg IVP Q2 PRN PRN Reason: itching Last Admin: 10/23/16 10:02 Dose: 25 mg Enoxaparin Sodium (Lovenox) 30 mg SC DAILY [facility] Last Admin: 10/23/16 10:28 Dose: Not Given Escitalopram Oxalate (Lexapro) 20 mg PO DAILY [facility] Last Admin: 10/23/16 10:28 Dose: Not Given Gabapentin (Neurontin) 100 mg PO TID [facility] Last Admin: 10/23/16 10:28 Dose: Not Given Hydromorphone HCl (Dilaudid) 1 mg IVP Q2 PRN Last Admin: 10/23/16 10:02 Dose: 1 mg Vancomycin HCl/Dextrose (Vancocin) 100 mls @ 100 mls/hr IVPB Q12H [facility] Stop: 10/26/16 05:01 Last Admin: 10/23/16 05:25 Dose: 100 mls/hr Cefazolin Sodium/Dextrose (Ancef Iv 1 Gm Duplex) 50 mls @ 100 mls/hr IVPB Q8H [facility] Last Admin: 10/23/16 12:24 Dose: 100 mls/hr Lactobacillus Acidophilus (Bacid Acidophilus) 1 cap PO BID [facility] Last Admin: 10/23/16 10:28 Dose: Not Given Magnesium Hydroxide (Milk Of Magnesia) 30 ml PO DAILY PRN PRN Reason: Constipation Pantoprazole Sodium (Protonix Ec Tab) 20 mg PO DAILY [facility] Last Admin: 10/23/16 10:29 Dose: Not Given Pneumococcal Polyvalent Vaccine (Pneumovax 23 Vaccine) 0.5 ml IM .ONCE ONE Stop: 10/24/16 09:49 Polyethylene Glycol (Miralax) 17 gm PO DAILY [facility] Last Admin: 10/23/16 10:28 Dose: Not Given Trazodone HCl (Desyrel) 50 mg PO HS [facility] Last Admin: 10/22/16 22:23 Dose: 50 mg - Labs Labs: 10/23/16 07:53 10/23/16 07:53 - Constitutional Appears: Non-toxic, No Acute Distress - Head Exam Head Exam: NORMAL INSPECTION, NORMOCEPHALIC - Eye Exam Eye Exam: Normal appearance Pupil Exam: NORMAL ACCOMODATION - ENT Exam ENT Exam: Mucous Membranes Moist - Respiratory Exam Respiratory Exam: Clear to Ausculation Bilateral, NORMAL BREATHING PATTERN. absent: Rales, Rhonchi, Wheezes - Cardiovascular Exam Cardiovascular Exam: REGULAR RHYTHM, +S1, +S2. absent: Gallop, Rubs - GI/Abdominal Exam GI & Abdominal Exam: Soft, Normal Bowel Sounds - Exam Additional comments: erythema and ulceration in perineal area - Neurological Exam Neurological Exam: Alert, Awake, Oriented x3 - Psychiatric Exam Psychiatric exam: Normal Affect, Normal Mood Assessment and Plan - Assessment and Plan (Free Text) Assessment: Wound New abscess formation found on posterior buttocks. I&D scheduled for today. s/p debridement on 10/14/16 wound care nurse referral Vanco 1gm IV q24h started on 10/19/16- continued from previous visit Lactobacillus Acidophilus - 1 cap PO BID Intractable Abdominal Pain/ Crohn's disease Consult GI- Dr. Lopez- yvonneay to discharge home from GI perspective s/p partial colectomy revision on 10/14/16 Dilaudid 1mg IVP Q2h PRN Benadryl 25mg IVP Q2h PRN Toradol 10mg PO Q8h PRN Tylenol 650mg PO Q4h PRN Consult Gen surg- Dr. Taylor Depression Lexapro 20mg PO Daily Prophylaxis Protonix 20mg PO daily Lovenox 30mg SC Daily on hold SCDs Management per Dr. Barrett
[2016-10-23] MEDS ORDERED: Lactated Ringer's 1,000 ML IV ONE (12:59)
[2016-10-23] MEDS ORDERED: Lidocaine 2% w Epi 1:100,000 Inj IJ ONE (13:00)
[2016-10-23] MEDS ORDERED: Bupivacaine HCl 0.25% PF (10 ml) Inj ONE (13:00)
[2016-10-23] MEDS ORDERED: Propofol 10 mg/ml Inj (20 ML) ONE (13:05)
[2016-10-23] MEDS ORDERED: Midazolam 2 MG/2 ML VIAL ONE (13:05)
[2016-10-23] MEDS ORDERED: HYDROmorphone 0.5 mg/0.5 ml ISec IVP PRN (13:33)
--- NOTE | 2016-10-23 13:45 | PCM.SURG1 ---
Surgeon's Initial Post Op Note - Surgeon's Notes Surgeon: Dr. Taylor Pediatric Lpn: Dr. Merritt Type of Anesthesia: IV Sedation, Local Pre-Operative Diagnosis: nitza-rectal abscesses Operative Findings: see operative report Post-Operative Diagnosis: nitza-rectal abscess Operation Performed: incision and drainage of nitza-rectal/nitza-sacral abscess, blunt debridement Specimen/Specimens Removed: fluid culture Estimated Blood Loss: EBL {In ML}: 10 Blood Products Given: N/A Drains Used: No Drains Post-Op Condition: Good Date of Surgery/Procedure: 10/23/16 Time of Surgery/Procedure: 13:44
--- NOTE | 2016-10-23 18:57 | CP.PCM.PN ---
Subjective - Date & Time of Evaluation Date of Evaluation: 10/23/16 Time of Evaluation: 08:00 - Subjective Subjective: s/p I and D IV rx in progress Objective - Vital Signs/Intake and Output Vital Signs (last 24 hours): Temp Pulse Resp BP Pulse Ox 98.4 F 103 H 18 104/70 100 10/23/16 15:00 10/23/16 15:00 10/23/16 15:00 10/23/16 15:00 10/23/16 15:00 Intake and Output: 10/23/16 10/23/16 06:59 18:59 Intake Total 800 Output Total 400 Balance -400 800 - Medications Medications: Current Medications Acetaminophen (Tylenol 325mg Tab) 650 mg PO Q4 PRN PRN Reason: Pain, Mild (1-3) Diphenhydramine HCl (Benadryl) 25 mg IVP Q2 PRN PRN Reason: itching Last Admin: 10/23/16 17:39 Dose: 25 mg Enoxaparin Sodium (Lovenox) 30 mg SC DAILY [facility] Last Admin: 10/23/16 10:28 Dose: Not Given Escitalopram Oxalate (Lexapro) 20 mg PO DAILY [facility] Last Admin: 10/23/16 10:28 Dose: Not Given Gabapentin (Neurontin) 100 mg PO TID [facility] Last Admin: 10/23/16 17:38 Dose: 100 mg Hydromorphone HCl (Dilaudid) 1 mg IVP Q2 PRN Last Admin: 10/23/16 17:39 Dose: 1 mg Vancomycin HCl/Dextrose (Vancocin) 100 mls @ 100 mls/hr IVPB Q12H [facility] Stop: 10/26/16 05:01 Last Admin: 10/23/16 17:43 Dose: 100 mls/hr Cefazolin Sodium/Dextrose (Ancef Iv 1 Gm Duplex) 50 mls @ 100 mls/hr IVPB Q8H [facility] Last Admin: 10/23/16 12:24 Dose: 100 mls/hr Lactobacillus Acidophilus (Bacid Acidophilus) 1 cap PO BID [facility] Last Admin: 10/23/16 17:38 Dose: 1 cap Magnesium Hydroxide (Milk Of Magnesia) 30 ml PO DAILY PRN PRN Reason: Constipation Pantoprazole Sodium (Protonix Ec Tab) 20 mg PO DAILY [facility] Last Admin: 10/23/16 10:29 Dose: Not Given Pneumococcal Polyvalent Vaccine (Pneumovax 23 Vaccine) 0.5 ml IM .ONCE ONE Stop: 10/24/16 09:49 Polyethylene Glycol (Miralax) 17 gm PO DAILY [facility] Last Admin: 10/23/16 10:28 Dose: Not Given Trazodone HCl (Desyrel) 50 mg PO HS [facility] Last Admin: 10/22/16 22:23 Dose: 50 mg - Labs Labs: 10/23/16 07:53 10/23/16 07:53 - Constitutional Appears: Non-toxic, Chronically Ill - Head Exam Head Exam: NORMOCEPHALIC - Eye Exam Eye Exam: PERRL. absent: Scleral icterus - ENT Exam ENT Exam: Mucous Membranes Dry - Neck Exam Neck Exam: absent: Lymphadenopathy - Respiratory Exam Respiratory Exam: Decreased Breath Sounds, Clear to Ausculation Bilateral - Cardiovascular Exam Cardiovascular Exam: REGULAR RHYTHM - GI/Abdominal Exam GI & Abdominal Exam: Distended, Soft - Rectal Exam Rectal Exam: Deferred - Exam Exam: NORMAL INSPECTION - Extremities Exam Extremities Exam: absent: Calf Tenderness, Pedal Edema - Back Exam Back Exam: absent: CVA tenderness (L), CVA tenderness (R) - Neurological Exam Neurological Exam: Alert, Awake, Oriented x3 - Psychiatric Exam Psychiatric exam: Normal Mood - Skin Skin Exam: Dry, Intact Assessment and Plan (1) Abscess Status: Acute
[2016-10-24] MEDS: DiphenhydrAMINE 50 mg/ml Inj IVP PRN ×10 (00:24→22:14)
[2016-10-24] MEDS: ceFAZolin IV 1 gm in Dextrose 50 ML IVPB SCH ×3 (02:44→19:04)
[2016-10-24] MEDS: Vancomycin 500mg/D5W 100 ml 100 ML IVPB SCH ×2 (04:55→17:00)
--- NOTE | 2016-10-24 07:17 | CP.PCM.PN ---
Subjective - Date & Time of Evaluation Date of Evaluation: 10/24/16 Time of Evaluation: 08:00 - Subjective Subjective: PGY2 on medicine Dr. Barrett service: Pt seen and examined at bedside. S/P I&D of abscess yesterday. Pt complains pain at his groin/rectal area and refuse exam. Pt requests pain medication but denied other complaints. Objective - Vital Signs/Intake and Output Vital Signs (last 24 hours): Temp Pulse Resp BP Pulse Ox 98.4 F 96 H 18 105/70 100 10/23/16 23:34 10/23/16 23:34 10/23/16 23:34 10/23/16 23:34 10/23/16 23:34 - Medications Medications: Current Medications Acetaminophen (Tylenol 325mg Tab) 650 mg PO Q4 PRN PRN Reason: Pain, Mild (1-3) Diphenhydramine HCl (Benadryl) 25 mg IVP Q2 PRN PRN Reason: itching Last Admin: 10/24/16 04:55 Dose: 25 mg Enoxaparin Sodium (Lovenox) 30 mg SC DAILY [facility] Last Admin: 10/23/16 10:28 Dose: Not Given Escitalopram Oxalate (Lexapro) 20 mg PO DAILY [facility] Last Admin: 10/23/16 10:28 Dose: Not Given Gabapentin (Neurontin) 100 mg PO TID [facility] Last Admin: 10/23/16 17:38 Dose: 100 mg Hydromorphone HCl (Dilaudid) 1 mg IVP Q2 PRN Last Admin: 10/24/16 04:56 Dose: 1 mg Vancomycin HCl/Dextrose (Vancocin) 100 mls @ 100 mls/hr IVPB Q12H [facility] Stop: 10/26/16 05:01 Last Admin: 10/24/16 04:55 Dose: 100 mls/hr Cefazolin Sodium/Dextrose (Ancef Iv 1 Gm Duplex) 50 mls @ 100 mls/hr IVPB Q8H [facility] Last Admin: 10/24/16 02:44 Dose: 100 mls/hr Lactobacillus Acidophilus (Bacid Acidophilus) 1 cap PO BID [facility] Last Admin: 10/23/16 17:38 Dose: 1 cap Magnesium Hydroxide (Milk Of Magnesia) 30 ml PO DAILY PRN PRN Reason: Constipation Pantoprazole Sodium (Protonix Ec Tab) 20 mg PO DAILY [facility] Last Admin: 10/23/16 10:29 Dose: Not Given Pneumococcal Polyvalent Vaccine (Pneumovax 23 Vaccine) 0.5 ml IM .ONCE ONE Stop: 10/24/16 09:49 Polyethylene Glycol (Miralax) 17 gm PO DAILY [facility] Last Admin: 10/23/16 10:28 Dose: Not Given Trazodone HCl (Desyrel) 50 mg PO HS [facility] Last Admin: 10/23/16 21:37 Dose: 50 mg - Labs Labs: 10/23/16 07:53 10/23/16 07:53 - Constitutional Appears: Non-toxic, No Acute Distress - Head Exam Head Exam: NORMAL INSPECTION, NORMOCEPHALIC - Eye Exam Eye Exam: Normal appearance - ENT Exam ENT Exam: Mucous Membranes Moist - Respiratory Exam Respiratory Exam: Clear to Ausculation Bilateral, NORMAL BREATHING PATTERN. absent: Rales, Wheezes - Cardiovascular Exam Cardiovascular Exam: REGULAR RHYTHM, +S1, +S2. absent: Gallop, Rubs - GI/Abdominal Exam GI & Abdominal Exam: Soft, Normal Bowel Sounds Additional comments: RLQ colostomy with soft brown stool - Rectal Exam Additional comments: Refused - Exam Additional comments: Refused - Extremities Exam Extremities Exam: absent: Pedal Edema - Neurological Exam Neurological Exam: Alert, Awake, Oriented x3 - Psychiatric Exam Psychiatric exam: Normal Affect - Skin Skin Exam: Dry, Intact Assessment and Plan - Assessment and Plan (Free Text) Assessment: Wound POD#1 I&D of abscess. s/p debridement on 10/14/16 wound care nurse referral Vanco 1gm IV q24h started on 10/19/16- continued from previous visit Ancef 1g IV q8H started 10/22/16 Dilaudid 1mg IV q2H PRN. Lactobacillus Acidophilus - 1 cap PO BID Intractable Abdominal Pain/ Crohn's disease Consult GI- Dr. Lopez- yvonneay to discharge home from GI perspective s/p partial colectomy revision on 10/14/16 Dilaudid 1mg IVP Q2h PRN Benadryl 25mg IVP Q2h PRN Toradol 10mg PO Q8h PRN Tylenol 650mg PO Q4h PRN Consult Gen surg- Dr. Taylor Depression Lexapro 20mg PO Daily Prophylaxis Protonix 20mg PO daily Lovenox 30mg SC Daily on hold SCDs Management per Dr. Barrett
[2016-10-24] MEDS ORDERED: Pneumococcal 23-Valent Vaccine IM ONE (09:48)
[2016-10-24] MEDS: Lactobacillus Acidophilus 500 MU Cap PO SCH ×2 (09:58→17:27)
[2016-10-24] MEDS: Pantoprazole 20 mg EC Tab PO SCH (09:59)
[2016-10-24] MEDS: POLYETHYLENE GLYCOL 3350 17 GM/Dose PACKET PO SCH (09:59)
[2016-10-24] MEDS: Enoxaparin 30 mg Syringe SC SCH (09:59)
--- NOTE | 2016-10-24 10:32 | CP.PCM.PN ---
Subjective - Date & Time of Evaluation Date of Evaluation: 10/24/16 Time of Evaluation: 10:26 - Subjective Subjective: Surgery: Dr. Taylor Patient complains of pain in rectal area however improved from yesterday. He denies f/c/n/v. Tolerating diet. Per nursing no acute events overnight. Objective - Vital Signs/Intake and Output Vital Signs (last 24 hours): Temp Pulse Resp BP Pulse Ox 98.4 F 96 H 18 105/70 100 10/23/16 23:34 10/23/16 23:34 10/23/16 23:34 10/23/16 23:34 10/23/16 23:34 - Medications Medications: Current Medications Acetaminophen (Tylenol 325mg Tab) 650 mg PO Q4 PRN PRN Reason: Pain, Mild (1-3) Diphenhydramine HCl (Benadryl) 25 mg IVP Q2 PRN PRN Reason: itching Last Admin: 10/24/16 08:10 Dose: 25 mg Enoxaparin Sodium (Lovenox) 30 mg SC DAILY [facility] Last Admin: 10/24/16 09:59 Dose: Not Given Escitalopram Oxalate (Lexapro) 20 mg PO DAILY [facility] Last Admin: 10/24/16 09:58 Dose: 20 mg Gabapentin (Neurontin) 100 mg PO TID [facility] Last Admin: 10/24/16 09:58 Dose: 100 mg Hydromorphone HCl (Dilaudid) 1 mg IVP Q2 PRN Last Admin: 10/24/16 08:11 Dose: 1 mg Vancomycin HCl/Dextrose (Vancocin) 100 mls @ 100 mls/hr IVPB Q12H [facility] Stop: 10/26/16 05:01 Last Admin: 10/24/16 04:55 Dose: 100 mls/hr Cefazolin Sodium/Dextrose (Ancef Iv 1 Gm Duplex) 50 mls @ 100 mls/hr IVPB Q8H [facility] Last Admin: 10/24/16 02:44 Dose: 100 mls/hr Lactobacillus Acidophilus (Bacid Acidophilus) 1 cap PO BID [facility] Last Admin: 10/24/16 09:58 Dose: 1 cap Magnesium Hydroxide (Milk Of Magnesia) 30 ml PO DAILY PRN PRN Reason: Constipation Pantoprazole Sodium (Protonix Ec Tab) 20 mg PO DAILY [facility] Last Admin: 10/24/16 09:59 Dose: 20 mg Polyethylene Glycol (Miralax) 17 gm PO DAILY [facility] Last Admin: 10/24/16 09:59 Dose: 17 gm Trazodone HCl (Desyrel) 50 mg PO HS [facility] Last Admin: 10/23/16 21:37 Dose: 50 mg - Labs Labs: 10/23/16 07:53 10/23/16 07:53 - Constitutional Appears: Well, Non-toxic, No Acute Distress - Head Exam Head Exam: ATRAUMATIC, NORMOCEPHALIC - Eye Exam Eye Exam: EOMI, Normal appearance - ENT Exam ENT Exam: Mucous Membranes Moist - Respiratory Exam Respiratory Exam: NORMAL BREATHING PATTERN. absent: Respiratory Distress - Cardiovascular Exam Cardiovascular Exam: REGULAR RHYTHM. absent: Tachycardia - Rectal Exam Additional comments: patient refused, requested to return at a later time Assessment and Plan - Assessment and Plan (Free Text) Assessment: 21 y/o male s/p I&D of nitza-rectal abscess POD1 Plan: -will attempt packing change today -cont abx -GI recs for Crohn's treatment -cont pain control -will need daily packing changes for wound care -d/w Dr. Taylor [facility], [place] PGY1
--- NOTE | 2016-10-24 13:27 | RAD ---
HISTORY: check placement of PICC line. COMPARISON: 10/13/2016 FINDINGS: LUNGS: No focal airspace opacity. PLEURA: No significant pleural effusion identified, no pneumothorax apparent. CARDIOVASCULAR: Normal. OSSEOUS STRUCTURES: No significant abnormalities. VISUALIZED UPPER ABDOMEN: Normal. OTHER FINDINGS: Left-sided PICC essentially stable with the tip overlying the projection of the SVC. IMPRESSION: Left-sided PICC with tip overlying the projection of the SVC.
[2016-10-24] MEDS ORDERED: HYDROmorphone 1 mg/ml ISec IVP STA (16:03)
[2016-10-24 17:08] LABS: BASO # 0.1 K/uL (0.0-0.2); BASO % 1.1 % (0.0-2.0); EOS # 0.6 K/uL (0.0-0.7); EOS % 5.4 % (0.0-4.0); HEMATOCRIT 26.9 % (35.0-51.0); LYMPH # 2.6 K/uL (1.0-4.3); LYMPH % 24.3 % (20.0-40.0); MEAN CELL VOLUME 67.4 fL (80.0-94.0); MEAN CORPUSCULAR HEMOGLOBIN 21.8 pg (27.0-31.0); MEAN CORPUSCULAR HGB CONC 32.4 g/dL (33.0-37.0); MEAN PLATELET VOLUME 8.6 fL (7.2-11.7); MONO # 0.5 K/uL (0.0-0.8); MONO % 4.5 % (0.0-10.0); RED CELL DISTRIBUTION WIDTH 15.9 % (11.5-14.5); WHITE BLOOD COUNT 10.6 K/uL (4.8-10.8)
[2016-10-24 17:15] LABS: CHLORIDE 96 mmol/L (98-107); POTASSIUM 3.7 mmol/L (3.6-5.2); SODIUM 138 mmol/L (132-148)
[2016-10-24 17:17] LABS: ALB/GLOB RATIO 0.8 (1.0-2.1); ALKALINE PHOSPHATASE 137 U/L (38-126); AST/SGOT 42 U/L (17-59); BILIRUBIN,TOTAL 0.1 mg/dL (0.2-1.3); CARBON DIOXIDE 27 mmol/L (22-30); GFR AFRICAN-AMERICAN > 60; TOTAL PROTEIN 7.2 g/dL (6.3-8.3)
[2016-10-24 17:18] LABS: ALT/SGPT 16 U/L (21-72); BLOOD UREA NITROGEN 7 mg/dL (9-20); CALCIUM 8.1 mg/dl (8.6-10.4); GLUCOSE,RANDOM 129 mg/dL (75-110)
--- NOTE | 2016-10-24 17:29 | CP.PCM.PN ---
Subjective - Date & Time of Evaluation Date of Evaluation: 10/24/16 Time of Evaluation: 11:40 - Subjective Subjective: clinically same Objective - Vital Signs/Intake and Output Vital Signs (last 24 hours): Temp Pulse Resp BP Pulse Ox 97.8 F 112 H 20 109/76 98 10/24/16 16:00 10/24/16 16:00 10/24/16 16:00 10/24/16 16:00 10/24/16 16:00 Intake and Output: 10/24/16 10/24/16 06:59 18:59 Intake Total 750 Output Total 300 Balance 450 - Medications Medications: Current Medications Acetaminophen (Tylenol 325mg Tab) 650 mg PO Q4 PRN PRN Reason: Pain, Mild (1-3) Diphenhydramine HCl (Benadryl) 25 mg IVP Q2 PRN PRN Reason: itching Last Admin: 10/24/16 15:45 Dose: 25 mg Enoxaparin Sodium (Lovenox) 30 mg SC DAILY [facility] Last Admin: 10/24/16 09:59 Dose: Not Given Escitalopram Oxalate (Lexapro) 20 mg PO DAILY [facility] Last Admin: 10/24/16 09:58 Dose: 20 mg Gabapentin (Neurontin) 100 mg PO TID [facility] Last Admin: 10/24/16 13:02 Dose: 100 mg Hydromorphone HCl (Dilaudid) 1 mg IVP Q2 PRN Last Admin: 10/24/16 15:46 Dose: 1 mg Vancomycin HCl/Dextrose (Vancocin) 100 mls @ 100 mls/hr IVPB Q12H [facility] Stop: 10/26/16 05:01 Last Admin: 10/24/16 17:00 Dose: 100 mls/hr Cefazolin Sodium/Dextrose (Ancef Iv 1 Gm Duplex) 50 mls @ 100 mls/hr IVPB Q8H [facility] Last Admin: 10/24/16 10:51 Dose: 100 mls/hr Lactobacillus Acidophilus (Bacid Acidophilus) 1 cap PO BID [facility] Last Admin: 10/24/16 09:58 Dose: 1 cap Magnesium Hydroxide (Milk Of Magnesia) 30 ml PO DAILY PRN PRN Reason: Constipation Pantoprazole Sodium (Protonix Ec Tab) 20 mg PO DAILY [facility] Last Admin: 10/24/16 09:59 Dose: 20 mg Polyethylene Glycol (Miralax) 17 gm PO DAILY [facility] Last Admin: 10/24/16 09:59 Dose: 17 gm Trazodone HCl (Desyrel) 50 mg PO HS [facility] Last Admin: 10/23/16 21:37 Dose: 50 mg - Labs Labs: 10/24/16 16:57 10/24/16 16:57 - Constitutional Appears: Well - Head Exam Head Exam: ATRAUMATIC, NORMAL INSPECTION, NORMOCEPHALIC - Eye Exam Eye Exam: EOMI, Normal appearance, PERRL Pupil Exam: NORMAL ACCOMODATION, PERRL - ENT Exam ENT Exam: Mucous Membranes Moist, Normal Exam - Neck Exam Neck Exam: Full ROM, Normal Inspection. absent: Lymphadenopathy - Respiratory Exam Respiratory Exam: Decreased Breath Sounds - Cardiovascular Exam Cardiovascular Exam: REGULAR RHYTHM, +S1, +S2 - GI/Abdominal Exam GI & Abdominal Exam: Soft, Diminished Bowel Sounds
--- NOTE | 2016-10-24 17:53 | CP.PCM.PN ---
Subjective - Date & Time of Evaluation Date of Evaluation: 10/24/16 Time of Evaluation: 09:00 - Subjective Subjective: no new positive cultures cont wound care and iv rx Objective - Vital Signs/Intake and Output Vital Signs (last 24 hours): Temp Pulse Resp BP Pulse Ox 97.8 F 112 H 20 109/76 98 10/24/16 16:00 10/24/16 16:00 10/24/16 16:00 10/24/16 16:00 10/24/16 16:00 Intake and Output: 10/24/16 10/24/16 06:59 18:59 Intake Total 750 Output Total 300 Balance 450 - Medications Medications: Current Medications Acetaminophen (Tylenol 325mg Tab) 650 mg PO Q4 PRN PRN Reason: Pain, Mild (1-3) Diphenhydramine HCl (Benadryl) 25 mg IVP Q2 PRN PRN Reason: itching Last Admin: 10/24/16 15:45 Dose: 25 mg Enoxaparin Sodium (Lovenox) 30 mg SC DAILY [facility] Last Admin: 10/24/16 09:59 Dose: Not Given Escitalopram Oxalate (Lexapro) 20 mg PO DAILY [facility] Last Admin: 10/24/16 09:58 Dose: 20 mg Gabapentin (Neurontin) 100 mg PO TID [facility] Last Admin: 10/24/16 17:28 Dose: 100 mg Hydromorphone HCl (Dilaudid) 1 mg IVP Q2 PRN Last Admin: 10/24/16 15:46 Dose: 1 mg Vancomycin HCl/Dextrose (Vancocin) 100 mls @ 100 mls/hr IVPB Q12H [facility] Stop: 10/26/16 05:01 Last Admin: 10/24/16 17:00 Dose: 100 mls/hr Cefazolin Sodium/Dextrose (Ancef Iv 1 Gm Duplex) 50 mls @ 100 mls/hr IVPB Q8H [facility] Last Admin: 10/24/16 10:51 Dose: 100 mls/hr Lactobacillus Acidophilus (Bacid Acidophilus) 1 cap PO BID [facility] Last Admin: 10/24/16 17:27 Dose: 1 cap Magnesium Hydroxide (Milk Of Magnesia) 30 ml PO DAILY PRN PRN Reason: Constipation Pantoprazole Sodium (Protonix Ec Tab) 20 mg PO DAILY [facility] Last Admin: 10/24/16 09:59 Dose: 20 mg Polyethylene Glycol (Miralax) 17 gm PO DAILY [facility] Last Admin: 10/24/16 09:59 Dose: 17 gm Trazodone HCl (Desyrel) 50 mg PO HS [facility] Last Admin: 10/23/16 21:37 Dose: 50 mg - Labs Labs: 10/24/16 16:57 10/24/16 16:57 - Constitutional Appears: Non-toxic, Cachectic, Chronically Ill - Head Exam Head Exam: NORMOCEPHALIC - Eye Exam Eye Exam: absent: Scleral icterus - ENT Exam ENT Exam: Mucous Membranes Dry - Neck Exam Neck Exam: absent: Lymphadenopathy - Respiratory Exam Respiratory Exam: Decreased Breath Sounds - Cardiovascular Exam Cardiovascular Exam: REGULAR RHYTHM, +S1, +S2 - GI/Abdominal Exam GI & Abdominal Exam: Distended, Soft - Rectal Exam Rectal Exam: Deferred - Extremities Exam Extremities Exam: absent: Pedal Edema - Neurological Exam Neurological Exam: Alert, Awake Assessment and Plan (1) Abscess Status: Acute
[2016-10-25] MEDS: DiphenhydrAMINE 50 mg/ml Inj IVP PRN ×12 (00:25→22:45)
[2016-10-25] MEDS: ceFAZolin IV 1 gm in Dextrose 50 ML IVPB SCH ×3 (03:01→18:31)
[2016-10-25] MEDS: Vancomycin 500mg/D5W 100 ml 100 ML IVPB SCH ×2 (05:01→16:45)
[2016-10-25 08:12] LABS: BASO # 0.1 K/uL (0.0-0.2); EOS # 0.6 K/uL (0.0-0.7); EOS % 6.6 % (0.0-4.0); HEMATOCRIT 25.9 % (35.0-51.0); LYMPH % 33.5 % (20.0-40.0); MEAN CELL VOLUME 66.9 fL (80.0-94.0); MEAN CORPUSCULAR HEMOGLOBIN 20.8 pg (27.0-31.0); MEAN CORPUSCULAR HGB CONC 31.1 g/dL (33.0-37.0); MEAN PLATELET VOLUME 8.5 fL (7.2-11.7); MONO # 0.8 K/uL (0.0-0.8); MONO % 8.5 % (0.0-10.0); RED CELL DISTRIBUTION WIDTH 15.5 % (11.5-14.5)
[2016-10-25 08:51] LABS: CHLORIDE 95 mmol/L (98-107); POTASSIUM 3.8 mmol/L (3.6-5.2); SODIUM 135 mmol/L (132-148)
[2016-10-25 08:53] LABS: BILIRUBIN,TOTAL < 0.1 mg/dL (0.2-1.3); CARBON DIOXIDE 30 mmol/L (22-30); GFR AFRICAN-AMERICAN > 60
[2016-10-25 08:54] LABS: ALKALINE PHOSPHATASE 128 U/L (38-126); ALT/SGPT 17 U/L (21-72); AST/SGOT 28 U/L (17-59); BLOOD UREA NITROGEN 7 mg/dL (9-20); CALCIUM 8.2 mg/dl (8.6-10.4); GLUCOSE,RANDOM 87 mg/dL (75-110)
[2016-10-25 08:55] LABS: ALB/GLOB RATIO 0.8 (1.0-2.1)
[2016-10-25] MEDS: Lactobacillus Acidophilus 500 MU Cap PO SCH ×2 (10:34→18:29)
[2016-10-25] MEDS: POLYETHYLENE GLYCOL 3350 17 GM/Dose PACKET PO SCH (10:34)
[2016-10-25] MEDS: Pantoprazole 20 mg EC Tab PO SCH (10:34)
[2016-10-25] MEDS: Enoxaparin 30 mg Syringe SC SCH ×2 (10:35→10:46)
--- NOTE | 2016-10-25 13:46 | CP.PCM.PN ---
Subjective - Date & Time of Evaluation Date of Evaluation: 10/25/16 Time of Evaluation: 09:40 - Subjective Subjective: clinically same Objective - Vital Signs/Intake and Output Vital Signs (last 24 hours): Temp Pulse Resp BP Pulse Ox 98.0 F 85 20 100/65 99 10/25/16 08:02 10/25/16 08:30 10/25/16 08:02 10/25/16 08:02 10/25/16 08:02 Intake and Output: 10/25/16 10/25/16 06:59 18:59 Intake Total 920 Output Total 700 Balance 220 - Medications Medications: Current Medications Acetaminophen (Tylenol 325mg Tab) 650 mg PO Q4 PRN PRN Reason: Pain, Mild (1-3) Diphenhydramine HCl (Benadryl) 25 mg IVP Q2 PRN Stop: 11/04/16 00:01 Last Admin: 10/25/16 12:38 Dose: 25 mg Enoxaparin Sodium (Lovenox) 30 mg SC DAILY [facility] Last Admin: 10/25/16 10:46 Dose: 30 mg Escitalopram Oxalate (Lexapro) 20 mg PO DAILY [facility] Last Admin: 10/25/16 10:34 Dose: 20 mg Gabapentin (Neurontin) 100 mg PO TID [facility] Last Admin: 10/25/16 10:35 Dose: 100 mg Hydromorphone HCl (Dilaudid) 1 mg IVP Q2 PRN Last Admin: 10/25/16 12:38 Dose: 1 mg Vancomycin HCl/Dextrose (Vancocin) 100 mls @ 100 mls/hr IVPB Q12H [facility] Stop: 10/26/16 05:01 Last Admin: 10/25/16 05:01 Dose: 100 mls/hr Cefazolin Sodium/Dextrose (Ancef Iv 1 Gm Duplex) 50 mls @ 100 mls/hr IVPB Q8H [facility] Last Admin: 10/25/16 10:34 Dose: 100 mls/hr Lactobacillus Acidophilus (Bacid Acidophilus) 1 cap PO BID [facility] Last Admin: 10/25/16 10:34 Dose: 1 cap Magnesium Hydroxide (Milk Of Magnesia) 30 ml PO DAILY PRN PRN Reason: Constipation Pantoprazole Sodium (Protonix Ec Tab) 20 mg PO DAILY [facility] Last Admin: 10/25/16 10:34 Dose: 20 mg Polyethylene Glycol (Miralax) 17 gm PO DAILY [facility] Last Admin: 10/25/16 10:34 Dose: 17 gm Trazodone HCl (Desyrel) 50 mg PO [facility] Last Admin: 10/24/16 22:18 Dose: 50 mg - Labs Labs: 10/25/16 08:06 10/25/16 08:06 - Constitutional Appears: Well - Head Exam Head Exam: ATRAUMATIC, NORMAL INSPECTION, NORMOCEPHALIC - Eye Exam Eye Exam: EOMI, Normal appearance, PERRL Pupil Exam: NORMAL ACCOMODATION, PERRL - ENT Exam ENT Exam: Mucous Membranes Moist, Normal Exam - Neck Exam Neck Exam: Full ROM, Normal Inspection. absent: Lymphadenopathy - Respiratory Exam Respiratory Exam: Decreased Breath Sounds - Cardiovascular Exam Cardiovascular Exam: REGULAR RHYTHM, +S1, +S2 - GI/Abdominal Exam GI & Abdominal Exam: Soft, Diminished Bowel Sounds - Rectal Exam Rectal Exam: Deferred
[2016-10-25] MEDS ORDERED: HYDROmorphone 1 mg/ml ISec IVP STA (16:29)
--- NOTE | 2016-10-25 17:21 | OP ---
PROCEDURE DATE: 10/23/2016 PREOPERATIVE DIAGNOSES: 1. Presacral abscess. 2. Unremarkable perineal wound and large perineal healing ulceration. 3. Crohn's disease. 4. The patient is status post multiple perineal wound debridements and drainage of abscesses previou sly. POSTOPERATIVE DIAGNOSIS: 1. Presacral abscess. 2. Unremarkable perineal wound and large perineal healing ulceration. 3. Crohn's disease. 4. The patient is status post multiple perineal wound debridements and drainage of abscesses previou sly. PROCEDURES: 1. Incision and drainage of presacral abscess. 2. Excisional debridement of the presacral wound. 3. Excisional debridement of multiple perineal wounds. SURGEON: Temo Taylor MD ANESTHESIA: Local anesthesia with deep sedation. ESTIMATED BLOOD LOSS: Around 50 mL. DRAINS: None. PATHOLOGY: The debrided tissue was sent for pathology. The pus was sent for the culture and sensiti vity. COMPLICATIONS: None. INTRAOPERATIVE FINDINGS: The patient had large presacral abscess that was extending from the previou s perineal wounds and the patient also had hypergranulation tissue in the presacral abscess area as w ell as in the multiple perineal wounds. INTRAOPERATIVE STEPS: This is a 21-year-old male who was diagnosed with presacral abscess. This was a new finding from the previous perineal wound as well as perineal ulcerated area. The patient was consented for incision and drainage as well as debridement of the wound, brought to the OR, placed in right lateral position. After deep sedation, the perineal area was prepped and draped and presacral area incision and drainage was done and approximately 10-15 mL of pus was drained and the wound was debrided. After that the previous perineal wound was also debrided and there was a connection betwee n the perineal wound up to the presacral wound. All the wounds were debrided and hypergranulation ti ssue was taken out. Wound was irrigated and wound was packed with iodoform packing and dry sterile d ressing was applied. The patient tolerated the procedure well. Count of instruments and gauze was c orrect. There was no apparent complication. The patient was extubated. The patient was reversed fr om sedation, sent to the postanesthesia care unit in stable condition. Temo Taylor MD cc: [id number] TT: 10/25/2016 17:20:58 jn
[2016-10-26] MEDS: DiphenhydrAMINE 50 mg/ml Inj IVP PRN ×10 (00:45→22:12)
[2016-10-26] MEDS: ceFAZolin IV 1 gm in Dextrose 50 ML IVPB SCH ×3 (02:56→18:22)
[2016-10-26] MEDS: Vancomycin 500mg/D5W 100 ml 100 ML IVPB SCH (04:07)
--- NOTE | 2016-10-26 07:25 | CP.PCM.PN ---
Subjective - Date & Time of Evaluation Date of Evaluation: 10/26/16 Time of Evaluation: 07:22 - Subjective Subjective: Surgery: Dr. Taylor Patient states he has no pain this am. He reports feeling sticky in the backside area of I&D. He denies f/c/n/v. Tolerating diet. Objective - Vital Signs/Intake and Output Vital Signs (last 24 hours): Temp Pulse Resp BP Pulse Ox 98.2 F 101 H 20 109/71 98 10/26/16 00:00 10/26/16 00:00 10/26/16 00:00 10/26/16 00:00 10/26/16 00:00 Intake and Output: 10/26/16 10/26/16 06:59 18:59 Intake Total 890 Output Total 1200 Balance -310 - Medications Medications: Current Medications Acetaminophen (Tylenol 325mg Tab) 650 mg PO Q4 PRN PRN Reason: Pain, Mild (1-3) Diphenhydramine HCl (Benadryl) 25 mg IVP Q2 PRN Stop: 11/04/16 00:01 Last Admin: 10/26/16 05:10 Dose: 25 mg Enoxaparin Sodium (Lovenox) 30 mg SC DAILY [facility] Last Admin: 10/25/16 10:46 Dose: 30 mg Escitalopram Oxalate (Lexapro) 20 mg PO DAILY [facility] Last Admin: 10/25/16 10:34 Dose: 20 mg Gabapentin (Neurontin) 100 mg PO TID [facility] Last Admin: 10/25/16 18:29 Dose: 100 mg Hydromorphone HCl (Dilaudid) 1 mg IVP Q2 PRN Last Admin: 10/26/16 05:08 Dose: 1 mg Cefazolin Sodium/Dextrose (Ancef Iv 1 Gm Duplex) 50 mls @ 100 mls/hr IVPB Q8H [facility] Last Admin: 10/26/16 02:56 Dose: 100 mls/hr Lactobacillus Acidophilus (Bacid Acidophilus) 1 cap PO BID [facility] Last Admin: 10/25/16 18:29 Dose: 1 cap Magnesium Hydroxide (Milk Of Magnesia) 30 ml PO DAILY PRN PRN Reason: Constipation Pantoprazole Sodium (Protonix Ec Tab) 20 mg PO DAILY [facility] Last Admin: 10/25/16 10:34 Dose: 20 mg Polyethylene Glycol (Miralax) 17 gm PO DAILY [facility] Last Admin: 10/25/16 10:34 Dose: 17 gm Trazodone HCl (Desyrel) 50 mg PO HS [facility] Last Admin: 10/25/16 21:41 Dose: 50 mg - Labs Labs: 10/25/16 08:06 10/25/16 08:06 - Constitutional Appears: Well, Non-toxic, No Acute Distress - Head Exam Head Exam: ATRAUMATIC, NORMOCEPHALIC - Eye Exam Eye Exam: EOMI, Normal appearance - ENT Exam ENT Exam: Mucous Membranes Moist - Respiratory Exam Respiratory Exam: NORMAL BREATHING PATTERN. absent: Respiratory Distress - Cardiovascular Exam Cardiovascular Exam: REGULAR RHYTHM. absent: Tachycardia - Rectal Exam Rectal Exam: Deferred - Extremities Exam Extremities Exam: Normal Inspection. absent: Calf Tenderness - Neurological Exam Neurological Exam: Alert, Awake, Oriented x3 - Psychiatric Exam Psychiatric exam: Normal Affect, Normal Mood - Skin Skin Exam: Dry, Intact, Normal Color, Warm Assessment and Plan - Assessment and Plan (Free Text) Assessment: 21 y/o male s/p I&d of nitza-rectal abscesses POD3 Plan: -daily packing changes -appears to be draining well -patient can shower if he likes, and can change packing after -cont ABX -crohn's tx per GI and primary -further recs per Dr. Claudia Oscar PGY1
[2016-10-26 08:50] LABS: CHLORIDE 95 mmol/L (98-107); SODIUM 138 mmol/L (132-148)
[2016-10-26 08:51] LABS: POTASSIUM 4.1 mmol/L (3.6-5.2)
[2016-10-26 08:53] LABS: GFR AFRICAN-AMERICAN > 60
[2016-10-26 08:54] LABS: BLOOD UREA NITROGEN 6 mg/dL (9-20); CALCIUM 8.3 mg/dl (8.6-10.4); CARBON DIOXIDE 30 mmol/L (22-30); GLUCOSE,RANDOM 117 mg/dL (75-110)
[2016-10-26] MEDS: Pantoprazole 20 mg EC Tab PO SCH (09:58)
[2016-10-26] MEDS: Enoxaparin 30 mg Syringe SC SCH (09:58)
[2016-10-26] MEDS: Lactobacillus Acidophilus 500 MU Cap PO SCH ×2 (09:58→18:21)
[2016-10-26] MEDS: POLYETHYLENE GLYCOL 3350 17 GM/Dose PACKET PO SCH (09:58)
--- NOTE | 2016-10-26 15:08 | CP.PCM.PN ---
Subjective - Date & Time of Evaluation Date of Evaluation: 10/26/16 Time of Evaluation: 10:00 - Subjective Subjective: s/p I and D iv rx in progress c/s + proteus sens to ancef rx in progress Objective - Vital Signs/Intake and Output Vital Signs (last 24 hours): Temp Pulse Resp BP Pulse Ox 98.1 F 91 H 20 105/73 99 10/26/16 08:00 10/26/16 08:00 10/26/16 08:00 10/26/16 08:00 10/26/16 08:00 Intake and Output: 10/26/16 10/26/16 06:59 18:59 Intake Total 890 Output Total 1200 Balance -310 - Medications Medications: Current Medications Acetaminophen (Tylenol 325mg Tab) 650 mg PO Q4 PRN PRN Reason: Pain, Mild (1-3) Diphenhydramine HCl (Benadryl) 25 mg IVP Q2 PRN Stop: 11/04/16 00:01 Last Admin: 10/26/16 13:59 Dose: 25 mg Enoxaparin Sodium (Lovenox) 30 mg SC DAILY [facility] Last Admin: 10/26/16 09:58 Dose: 30 mg Escitalopram Oxalate (Lexapro) 20 mg PO DAILY [facility] Last Admin: 10/26/16 09:57 Dose: 20 mg Gabapentin (Neurontin) 100 mg PO TID [facility] Last Admin: 10/26/16 13:44 Dose: 100 mg Hydromorphone HCl (Dilaudid) 1 mg IVP Q2 PRN Last Admin: 10/26/16 14:01 Dose: 1 mg Cefazolin Sodium/Dextrose (Ancef Iv 1 Gm Duplex) 50 mls @ 100 mls/hr IVPB Q8H [facility] Last Admin: 10/26/16 10:43 Dose: 100 mls/hr Lactobacillus Acidophilus (Bacid Acidophilus) 1 cap PO BID [facility] Last Admin: 10/26/16 09:58 Dose: 1 cap Magnesium Hydroxide (Milk Of Magnesia) 30 ml PO DAILY PRN PRN Reason: Constipation Pantoprazole Sodium (Protonix Ec Tab) 20 mg PO DAILY [facility] Last Admin: 10/26/16 09:58 Dose: 20 mg Polyethylene Glycol (Miralax) 17 gm PO DAILY [facility] Last Admin: 10/26/16 09:58 Dose: 17 gm Trazodone HCl (Desyrel) 50 mg PO HS [facility] Last Admin: 10/25/16 21:41 Dose: 50 mg - Labs Labs: 10/25/16 08:06 10/26/16 08:27 - Constitutional Appears: Non-toxic, Cachectic, Chronically Ill - Head Exam Head Exam: NORMOCEPHALIC - Eye Exam Eye Exam: PERRL. absent: Scleral icterus - ENT Exam ENT Exam: Mucous Membranes Dry - Neck Exam Neck Exam: absent: Lymphadenopathy - Respiratory Exam Respiratory Exam: Decreased Breath Sounds, Clear to Ausculation Bilateral - Cardiovascular Exam Cardiovascular Exam: REGULAR RHYTHM, +S1, +S2 - GI/Abdominal Exam GI & Abdominal Exam: Distended, Soft - Rectal Exam Rectal Exam: Deferred Assessment and Plan (1) Abscess Status: Acute
--- NOTE | 2016-10-26 19:31 | CP.PCM.PN ---
Subjective - Date & Time of Evaluation Date of Evaluation: 10/26/16 Time of Evaluation: 09:30 Objective - Vital Signs/Intake and Output Vital Signs (last 24 hours): Temp Pulse Resp BP Pulse Ox 98.2 F 96 H 98 H 110/73 20 L 10/26/16 15:15 10/26/16 15:15 10/26/16 15:15 10/26/16 15:15 10/26/16 15:15 - Medications Medications: Current Medications Acetaminophen (Tylenol 325mg Tab) 650 mg PO Q4 PRN PRN Reason: Pain, Mild (1-3) Diphenhydramine HCl (Benadryl) 25 mg IVP Q2 PRN Stop: 11/04/16 00:01 Last Admin: 10/26/16 18:12 Dose: 25 mg Enoxaparin Sodium (Lovenox) 30 mg SC DAILY [facility] Last Admin: 10/26/16 09:58 Dose: 30 mg Escitalopram Oxalate (Lexapro) 20 mg PO DAILY [facility] Last Admin: 10/26/16 09:57 Dose: 20 mg Gabapentin (Neurontin) 100 mg PO TID [facility] Last Admin: 10/26/16 18:21 Dose: 100 mg Hydromorphone HCl (Dilaudid) 1 mg IVP Q2 PRN Last Admin: 10/26/16 18:12 Dose: 1 mg Cefazolin Sodium/Dextrose (Ancef Iv 1 Gm Duplex) 50 mls @ 100 mls/hr IVPB Q8H [facility] Last Admin: 10/26/16 18:22 Dose: 100 mls/hr Lactobacillus Acidophilus (Bacid Acidophilus) 1 cap PO BID [facility] Last Admin: 10/26/16 18:21 Dose: 1 cap Magnesium Hydroxide (Milk Of Magnesia) 30 ml PO DAILY PRN PRN Reason: Constipation Pantoprazole Sodium (Protonix Ec Tab) 20 mg PO DAILY [facility] Last Admin: 10/26/16 09:58 Dose: 20 mg Polyethylene Glycol (Miralax) 17 gm PO DAILY [facility] Last Admin: 10/26/16 09:58 Dose: 17 gm Trazodone HCl (Desyrel) 50 mg PO HS [facility] Last Admin: 10/25/16 21:41 Dose: 50 mg - Labs Labs: 10/25/16 08:06 10/26/16 08:27
[2016-10-27] MEDS: DiphenhydrAMINE 50 mg/ml Inj IVP PRN ×11 (00:18→22:05)
[2016-10-27] MEDS: ceFAZolin IV 1 gm in Dextrose 50 ML IVPB SCH ×3 (03:17→18:09)
--- NOTE | 2016-10-27 07:34 | CP.PCM.PN ---
Subjective - Date & Time of Evaluation Date of Evaluation: 10/27/16 Time of Evaluation: 10:00 - Subjective Subjective: PGY2 on medicine Dr. Barrett: Pt seen and examined at bedside this morning. No acute events overnight. Pt refused his perirectal abscess to be examined because he will get dressing change later. Pt also complains left axillary pain for several weeks and he thinks it might be due to an abscess as well. Pt said he has been applying Medihoney as instructed by surgery team. Denied chest pain, fever, chills, abdominal pain, n/v. Objective - Vital Signs/Intake and Output Vital Signs (last 24 hours): Temp Pulse Resp BP Pulse Ox 98 F 92 H 20 111/72 96 10/27/16 00:00 10/27/16 00:00 10/27/16 00:00 10/27/16 00:00 10/27/16 00:00 Intake and Output: 10/27/16 10/27/16 06:59 18:59 Intake Total 790 Output Total 1250 Balance -460 - Medications Medications: Current Medications Acetaminophen (Tylenol 325mg Tab) 650 mg PO Q4 PRN PRN Reason: Pain, Mild (1-3) Diphenhydramine HCl (Benadryl) 25 mg IVP Q2 PRN Stop: 11/04/16 00:01 Last Admin: 10/27/16 05:20 Dose: 25 mg Enoxaparin Sodium (Lovenox) 30 mg SC DAILY [facility] Last Admin: 10/26/16 09:58 Dose: 30 mg Escitalopram Oxalate (Lexapro) 20 mg PO DAILY [facility] Last Admin: 10/26/16 09:57 Dose: 20 mg Gabapentin (Neurontin) 100 mg PO TID [facility] Last Admin: 10/26/16 18:21 Dose: 100 mg Hydromorphone HCl (Dilaudid) 1 mg IVP Q2 PRN Last Admin: 10/27/16 05:23 Dose: 1 mg Cefazolin Sodium/Dextrose (Ancef Iv 1 Gm Duplex) 50 mls @ 100 mls/hr IVPB Q8H [facility] Last Admin: 10/27/16 03:17 Dose: 100 mls/hr Lactobacillus Acidophilus (Bacid Acidophilus) 1 cap PO BID [facility] Last Admin: 10/26/16 18:21 Dose: 1 cap Magnesium Hydroxide (Milk Of Magnesia) 30 ml PO DAILY PRN PRN Reason: Constipation Pantoprazole Sodium (Protonix Ec Tab) 20 mg PO DAILY [facility] Last Admin: 10/26/16 09:58 Dose: 20 mg Polyethylene Glycol (Miralax) 17 gm PO DAILY [facility] Last Admin: 10/26/16 09:58 Dose: 17 gm Trazodone HCl (Desyrel) 50 mg PO HS [facility] Last Admin: 10/26/16 22:00 Dose: 50 mg - Labs Labs: 10/25/16 08:06 10/26/16 08:27 - Constitutional Appears: Non-toxic, No Acute Distress - Head Exam Head Exam: NORMAL INSPECTION, NORMOCEPHALIC - Eye Exam Eye Exam: Normal appearance Pupil Exam: NORMAL ACCOMODATION - Respiratory Exam Respiratory Exam: Clear to Ausculation Bilateral, NORMAL BREATHING PATTERN. absent: Rhonchi, Wheezes - Cardiovascular Exam Cardiovascular Exam: REGULAR RHYTHM, +S1, +S2. absent: Gallop, Rubs - GI/Abdominal Exam GI & Abdominal Exam: Soft, Normal Bowel Sounds Additional comments: Colostomy bag with brown soft stool, dressing intact - Exam Additional comments: Refused - Extremities Exam Additional comments: Left axilla tenderness, 3cm induration lesion covered with hair and medihoney - Neurological Exam Neurological Exam: Alert, Awake, Oriented x3 - Psychiatric Exam Psychiatric exam: Normal Affect, Normal Mood - Skin Skin Exam: Dry, Intact Assessment and Plan - Assessment and Plan (Free Text) Assessment: Wound POD#4 I&D of abscess. wound care nurse referral Wound culture Klebsiella pneumonia sensitive for Ancef. Ancef 1g IV q8H started 10/22/16 Dilaudid 1mg IV q2H PRN. Lactobacillus Acidophilus - 1 cap PO BID ID Dr. Xavier consulted. Intractable Abdominal Pain/ Crohn's disease Consult GI- Dr. Lopez- maite to discharge home from GI perspective s/p partial colectomy revision on 10/14/16 Dilaudid 1mg IVP Q2h PRN Benadryl 25mg IVP Q2h PRN Toradol 10mg PO Q8h PRN Tylenol 650mg PO Q4h PRN Consult Gen surg- Dr. Taylor Depression Lexapro 20mg PO Daily Prophylaxis Protonix 20mg PO daily Lovenox 30mg SC Daily on hold SCDs Management per Dr. Barrett
--- NOTE | 2016-10-27 08:45 | CP.PCM.PN ---
<BurgessKeith - Last Filed: 10/27/16 08:52> Subjective - Date & Time of Evaluation Date of Evaluation: 10/27/16 Time of Evaluation: 07:15 - Subjective Subjective: General Surgery Pt S&E, LUIS ALFREDOO. C/O minimal pain of perirectal abscess, well controlled with meds. Pt also C/O 2 week history of pain to left axilla. Denies fever, chills, nausea, vomiting, diarrhea. Tolerating PO diet well. He has been applying Medihoney and changing dressings to his old perineal wounds. Objective - Vital Signs/Intake and Output Vital Signs (last 24 hours): Temp Pulse Resp BP Pulse Ox 98.4 F 92 H 20 114/74 100 10/27/16 07:37 10/27/16 07:37 10/27/16 07:37 10/27/16 07:37 10/27/16 07:37 Intake and Output: 10/27/16 10/27/16 06:59 18:59 Intake Total 790 Output Total 1250 Balance -460 - Medications Medications: Current Medications Acetaminophen (Tylenol 325mg Tab) 650 mg PO Q4 PRN PRN Reason: Pain, Mild (1-3) Diphenhydramine HCl (Benadryl) 25 mg IVP Q2 PRN Stop: 11/04/16 00:01 Last Admin: 10/27/16 07:53 Dose: 25 mg Enoxaparin Sodium (Lovenox) 30 mg SC DAILY [facility] Last Admin: 10/26/16 09:58 Dose: 30 mg Escitalopram Oxalate (Lexapro) 20 mg PO DAILY [facility] Last Admin: 10/26/16 09:57 Dose: 20 mg Gabapentin (Neurontin) 100 mg PO TID [facility] Last Admin: 10/26/16 18:21 Dose: 100 mg Hydromorphone HCl (Dilaudid) 1 mg IVP Q2 PRN Last Admin: 10/27/16 07:50 Dose: 1 mg Cefazolin Sodium/Dextrose (Ancef Iv 1 Gm Duplex) 50 mls @ 100 mls/hr IVPB Q8H [facility] Last Admin: 10/27/16 03:17 Dose: 100 mls/hr Lactobacillus Acidophilus (Bacid Acidophilus) 1 cap PO BID [facility] Last Admin: 10/26/16 18:21 Dose: 1 cap Magnesium Hydroxide (Milk Of Magnesia) 30 ml PO DAILY PRN PRN Reason: Constipation Pantoprazole Sodium (Protonix Ec Tab) 20 mg PO DAILY [facility] Last Admin: 10/26/16 09:58 Dose: 20 mg Polyethylene Glycol (Miralax) 17 gm PO DAILY [facility] Last Admin: 10/26/16 09:58 Dose: 17 gm Trazodone HCl (Desyrel) 50 mg PO HS [facility] Last Admin: 10/26/16 22:00 Dose: 50 mg - Labs Labs: 10/25/16 08:06 10/26/16 08:27 - Constitutional Appears: Well, No Acute Distress - Head Exam Head Exam: ATRAUMATIC, NORMOCEPHALIC - Eye Exam Eye Exam: EOMI. absent: Scleral icterus - ENT Exam ENT Exam: Mucous Membranes Moist - Respiratory Exam Respiratory Exam: NORMAL BREATHING PATTERN. absent: Respiratory Distress - Cardiovascular Exam Cardiovascular Exam: REGULAR RHYTHM, +S1, +S2 - GI/Abdominal Exam GI & Abdominal Exam: Soft. absent: Guarding, Tenderness Additional comments: Colostomy patent, without leakage around bag. Producing brown stool - Neurological Exam Neurological Exam: Alert, Awake - Psychiatric Exam Psychiatric exam: Normal Affect, Normal Mood - Skin Skin Exam: Dry, Warm Additional comments: Open sore to left axilla Refused to roll over for exam of perirectal wound Assessment and Plan - Assessment and Plan (Free Text) Assessment: 21M with Crohn's disease, wound debridement s/p perirectal abscess I&D POD 4 Plan: Continue daily packing changes Will change perirectal abscess dressing in afternoon Continue IV Abx per ID Applied Medihoney and bandage with daily dressing changes to left axillary sore Crohn's tx per GI and primary Will D/W Dr. Claudia Marr PGY3 <Temo Taylor B - Last Filed: 10/28/16 22:07> Objective - Vital Signs/Intake and Output Vital Signs (last 24 hours): Temp Pulse Resp BP Pulse Ox 98.2 F 81 20 104/71 99 10/28/16 16:00 10/28/16 16:00 10/28/16 16:00 10/28/16 16:00 10/28/16 16:00 Intake and Output: 10/28/16 10/29/16 18:59 06:59 Output Total 400 Balance -400 - Medications Medications: Current Medications Acetaminophen (Tylenol 325mg Tab) 650 mg PO Q4 PRN PRN Reason: Pain, Mild (1-3) Diphenhydramine HCl (Benadryl) 25 mg IVP Q2 PRN Stop: 11/04/16 00:01 Last Admin: 10/28/16 20:30 Dose: 25 mg Enoxaparin Sodium (Lovenox) 30 mg SC DAILY [facility] Last Admin: 10/28/16 10:20 Dose: 30 mg Escitalopram Oxalate (Lexapro) 20 mg PO DAILY [facility] Last Admin: 10/28/16 10:22 Dose: 20 mg Gabapentin (Neurontin) 100 mg PO TID [facility] Last Admin: 10/28/16 18:26 Dose: 100 mg Hydromorphone HCl (Dilaudid) 2 mg IVP Q2 PRN PRN Reason: Pain, moderate (4-7) Last Admin: 10/28/16 20:29 Dose: 2 mg Cefazolin Sodium/Dextrose (Ancef Iv 1 Gm Duplex) 50 mls @ 100 mls/hr IVPB Q8H [facility] Last Admin: 10/28/16 18:35 Dose: 100 mls/hr Lactobacillus Acidophilus (Bacid Acidophilus) 1 cap PO BID [facility] Last Admin: 10/28/16 18:34 Dose: 1 cap Magnesium Hydroxide (Milk Of Magnesia) 30 ml PO DAILY PRN PRN Reason: Constipation Pantoprazole Sodium (Protonix Ec Tab) 20 mg PO DAILY [facility] Last Admin: 10/28/16 10:23 Dose: 20 mg Polyethylene Glycol (Miralax) 17 gm PO DAILY [facility] Last Admin: 10/28/16 10:25 Dose: Not Given Trazodone HCl (Desyrel) 50 mg PO HS [facility] Last Admin: 10/27/16 22:05 Dose: 50 mg - Labs Labs: 10/28/16 08:07 10/28/16 08:07 Attending/Attestation - Attestation I have personally seen and examined this patient.: Yes I have fully participated in the care of the patient.: Yes I have reviewed all pertinent clinical information, including history, physical exam and plan: Yes Notes (Text): 10/28/16 22:07 Pt was seen and examined at bedside on 10/27/16 Agree with above note and assessment.
[2016-10-27] MEDS: Lactobacillus Acidophilus 500 MU Cap PO SCH ×2 (09:18→17:04)
[2016-10-27] MEDS: Pantoprazole 20 mg EC Tab PO SCH (09:18)
[2016-10-27] MEDS: POLYETHYLENE GLYCOL 3350 17 GM/Dose PACKET PO SCH (09:18)
[2016-10-27] MEDS: Enoxaparin 30 mg Syringe SC SCH (09:18)
[2016-10-27 11:08] LABS: BASO # 0.1 K/uL (0.0-0.2); BASO % 0.5 % (0.0-2.0); EOS # 0.6 K/uL (0.0-0.7); EOS % 5.8 % (0.0-4.0); HEMATOCRIT 27.4 % (35.0-51.0); LYMPH # 2.6 K/uL (1.0-4.3); LYMPH % 26.4 % (20.0-40.0); MEAN CELL VOLUME 65.5 fL (80.0-94.0); MEAN CORPUSCULAR HEMOGLOBIN 20.8 pg (27.0-31.0); MEAN CORPUSCULAR HGB CONC 31.7 g/dL (33.0-37.0); MEAN PLATELET VOLUME 7.9 fL (7.2-11.7); MONO # 0.5 K/uL (0.0-0.8); MONO % 4.9 % (0.0-10.0); RED CELL DISTRIBUTION WIDTH 15.8 % (11.5-14.5); WHITE BLOOD COUNT 9.8 K/uL (4.8-10.8)
[2016-10-27 11:24] LABS: CHLORIDE 94 mmol/L (98-107)
[2016-10-27 11:25] LABS: SODIUM 139 mmol/L (132-148)
[2016-10-27 11:27] LABS: ALB/GLOB RATIO 0.8 (1.0-2.1); ALKALINE PHOSPHATASE 147 U/L (38-126); AST/SGOT 39 U/L (17-59); BILIRUBIN,TOTAL 0.4 mg/dL (0.2-1.3); BLOOD UREA NITROGEN 6 mg/dL (9-20); CARBON DIOXIDE 31 mmol/L (22-30); GFR AFRICAN-AMERICAN > 60; TOTAL PROTEIN 7.5 g/dL (6.3-8.3)
[2016-10-27 11:28] LABS: ALT/SGPT 34 U/L (21-72); CALCIUM 8.6 mg/dl (8.6-10.4); GLUCOSE,RANDOM 79 mg/dL (75-110)
--- NOTE | 2016-10-27 14:02 | PCM.PSYCH ---
Initial Psychiatric Evaluation - Initial Psychiatric Evaluation Type of Admission: Voluntary Legal Status: Capacity Chief Complaint (in patient's own words): "I feel depressed, I don't understand why all these problems are happening to me " History of Present Illness and Precipitating Events: Pt seen, chart reviewed, case discussed with team. 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 Pt known to the psych team and was seen at bedside today, he is back at [facility] for recurrent abscess 2/2 Crohn's disease requiring operative treatment in the OR. The patient was diagnosed with Crohn's at 17yo and received a colon resection with colostomy placement as a result. However, in the last 4-5 months the pt has been suffering from repeated infections and abscess that require operative management and the treatments have severely impacted his daily life and education. The pt was here in August for similar issues and was seen by Dr. Cannon for depressive symptoms and started on Lexapro 10mg. The pt today still experiences feelings of depression and hopelessness with regards to his current situation and does not understand why he keeps getting these infections and abscesses, but his mood has seen a mild improvement on the medication. While he feels despondent about the possibility of not returning to school or getting a job, he has good friend and family support that visit him at the hospital. He still reports poor sleep at night, but his appetite is back to normal and does not currently have suicidal ideation, thoughts of self harm, hallucinations, delusions, anxiety or other positive symptoms. Pt is tolerating the medication well. PMH: Crohn's disease Psych: MDD w/o psychotic features PSH: colon resection w/ colostomy, multiple Abscess I&D most recent one on 2016 Hospitalizations: multiple admissions for complications 2/2 Crohn's Disease Meds: Lexapro 20mg Allergies: Morphine social: Denies nicotine use, EtOH use, and other ilicit drugs. Current Medications: Active Medications Generic Name Dose Route Start Last Admin Trade Name Freq PRN Reason Stop Dose Admin Acetaminophen 650 mg 10/19/16 06:31 Tylenol 325mg Tab PO Q4 PRN Pain, Mild (1-3) Diphenhydramine HCl 25 mg 10/25/16 00:00 10/27/16 12:11 Benadryl IVP 11/04/16 00:01 25 mg Q2 PRN Administration Enoxaparin Sodium 30 mg 10/19/16 13:45 10/27/16 09:18 Lovenox SC 30 mg DAILY [facility] Administration Escitalopram Oxalate 20 mg 10/19/16 10:00 10/27/16 09:18 Lexapro PO 20 mg DAILY [facility] Administration Gabapentin 100 mg 10/19/16 10:00 10/27/16 09:18 Neurontin PO 100 mg TID [facility] Administration Hydromorphone HCl 1 mg 10/20/16 19:54 10/27/16 12:11 Dilaudid IVP 1 mg Q2 PRN Administration Cefazolin Sodium/Dextrose 50 mls @ 100 mls/hr 10/22/16 19:00 10/27/16 11:47 Ancef Iv 1 Gm Duplex IVPB 100 mls/hr Q8H [facility] Administration Lactobacillus Acidophilus 1 cap 10/19/16 10:00 10/27/16 09:18 Bacid Acidophilus PO 1 cap BID [facility] Administration Magnesium Hydroxide 30 ml 10/19/16 06:31 Milk Of Magnesia PO DAILY PRN Constipation Pantoprazole Sodium 20 mg 10/19/16 10:00 10/27/16 09:18 Protonix Ec Tab PO 20 mg DAILY [facility] Administration Polyethylene Glycol 17 gm 10/20/16 12:15 10/27/16 09:18 Miralax PO 17 gm DAILY [facility] Administration Trazodone HCl 50 mg 10/19/16 22:00 10/26/16 22:00 Desyrel PO 50 mg HS [facility] Administration Past Psychiatric History - Past Psychiatric History Previous Treatment History: Partial Hospital Pertinent Medical Hx (Current Medical&Sleep Prob, Allergies): Allergies Allergy/AdvReac Type Severity Reaction Status Date / Time morphine Allergy ITCHING Verified 10/19/16 12:19 Acetaminophen [Tylenol 325mg tab] 650 mg PO Q4 PRN 10/11/16 Amino Acids/Protein Hydrolys [Pro-Stat Profile Liquid] 30 ml PO TID 10/11/16 DiphenhydrAMINE [Benadryl] 25 mg PO Q2 PRN 10/11/16 Escitalopram Oxalate 20 mg PO DAILY 10/11/16 Gabapentin [Neurontin] 100 mg PO TID 10/11/16 HYDROmorphone [Dilaudid] 2 mg IVP Q72 10/11/16 Hydromorphone HCl [Dilaudid] 4 mg PO Q3 PRN 10/11/16 Ketorolac Tromethamine [Toradol] 10 mg PO Q8 PRN 10/11/16 Lactobacillus Acidophilus [Bacid Acidophilus] 1 cap PO BID 10/11/16 Magnesium Hydroxide [Milk Of Magnesia] 30 ml PO DAILY PRN 10/11/16 Pantoprazole Sodium [Protonix] 20 mg PO DAILY 10/11/16 Vancomycin/0.9 % Sod Chloride [Vanco 1.5 gm/250 ml-0.9% NaCl] 1.4 gm IV DAILY traZODone [Desyrel] 50 mg PO HS 10/11/16 Review of Systems - Review of Systems All systems: reviewed and no additional remarkable complaints except - Psychiatric Psychiatric: Abnormal Sleep Pattern, Depression, Hopelessness. absent: Auditory Hallucinations, Hallucinations, Suicidal Ideation, Visual Hallucinations, Tactile Hallucinations Mental Status Examination - Personal Presentation Personal Presentation: Looks stated age - Affect Affect: Depressed - Motor Activity Motor Activity: Calm - Reliability in Providing Information Reliability in Providing Information: Good - Speech Speech: Organized - Mood Mood: Depressed - Formal Thought Process Formal Thought Process: No Impairment - Obsessions/Compulsions Obsessions: No Compulsions: No - Cognitive Functions Orientation: Person, Place, Situation, Time Sensorium: Alert Attention/Concentration: Attentive Abstract Thinking: [place] Estimate of Intelligence: Above Average Judgement: Intact, as evidence by: Insight regarding need for hospitalization - Risk Risk: Diminished functioning - Strength & Assets Inventory Strength & Assets Inventory: Intelligence, Family support, Education, Life experience, Cooperative DSM 5 DX - DSM 5 DSM 5 Diagnosis: Primary: 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
--- NOTE | 2016-10-27 17:52 | CP.PCM.PN ---
Subjective - Date & Time of Evaluation Date of Evaluation: 10/27/16 Time of Evaluation: 09:40 - Subjective Subjective: clinically same Objective - Vital Signs/Intake and Output Vital Signs (last 24 hours): Temp Pulse Resp BP Pulse Ox 98.4 F 92 H 20 114/74 100 10/27/16 07:37 10/27/16 11:00 10/27/16 07:37 10/27/16 07:37 10/27/16 07:37 Intake and Output: 10/27/16 10/27/16 06:59 18:59 Intake Total 790 Output Total 1250 Balance -460 - Medications Medications: Current Medications Acetaminophen (Tylenol 325mg Tab) 650 mg PO Q4 PRN PRN Reason: Pain, Mild (1-3) Diphenhydramine HCl (Benadryl) 25 mg IVP Q2 PRN Stop: 11/04/16 00:01 Last Admin: 10/27/16 16:17 Dose: 25 mg Enoxaparin Sodium (Lovenox) 30 mg SC DAILY [facility] Last Admin: 10/27/16 09:18 Dose: 30 mg Escitalopram Oxalate (Lexapro) 20 mg PO DAILY [facility] Last Admin: 10/27/16 09:18 Dose: 20 mg Gabapentin (Neurontin) 100 mg PO TID [facility] Last Admin: 10/27/16 17:04 Dose: 100 mg Hydromorphone HCl (Dilaudid) 1 mg IVP Q2 PRN Last Admin: 10/27/16 16:17 Dose: 1 mg Cefazolin Sodium/Dextrose (Ancef Iv 1 Gm Duplex) 50 mls @ 100 mls/hr IVPB Q8H [facility] Last Admin: 10/27/16 11:47 Dose: 100 mls/hr Lactobacillus Acidophilus (Bacid Acidophilus) 1 cap PO BID [facility] Last Admin: 10/27/16 17:04 Dose: 1 cap Magnesium Hydroxide (Milk Of Magnesia) 30 ml PO DAILY PRN PRN Reason: Constipation Pantoprazole Sodium (Protonix Ec Tab) 20 mg PO DAILY [facility] Last Admin: 10/27/16 09:18 Dose: 20 mg Polyethylene Glycol (Miralax) 17 gm PO DAILY [facility] Last Admin: 10/27/16 09:18 Dose: 17 gm Trazodone HCl (Desyrel) 50 mg PO HS [facility] Last Admin: 10/26/16 22:00 Dose: 50 mg - Labs Labs: 10/27/16 11:01 10/27/16 11:01 - Constitutional Appears: Well - Head Exam Head Exam: ATRAUMATIC, NORMAL INSPECTION, NORMOCEPHALIC - Eye Exam Eye Exam: EOMI, Normal appearance, PERRL Pupil Exam: NORMAL ACCOMODATION, PERRL - ENT Exam ENT Exam: Mucous Membranes Moist, Normal Exam - Neck Exam Neck Exam: Full ROM, Normal Inspection. absent: Lymphadenopathy - Respiratory Exam Respiratory Exam: Decreased Breath Sounds - Cardiovascular Exam Cardiovascular Exam: REGULAR RHYTHM, +S1, +S2 - GI/Abdominal Exam GI & Abdominal Exam: Soft, Diminished Bowel Sounds - Rectal Exam Rectal Exam: Deferred
[2016-10-28] MEDS: DiphenhydrAMINE 50 mg/ml Inj IVP PRN ×10 (02:10→22:30)
[2016-10-28] MEDS: ceFAZolin IV 1 gm in Dextrose 50 ML IVPB SCH ×3 (02:16→18:35)
--- NOTE | 2016-10-28 07:18 | CP.PCM.PN ---
Subjective - Date & Time of Evaluation Date of Evaluation: 10/28/16 Time of Evaluation: 09:00 - Subjective Subjective: Medicine Progress Note- Dr. Shiloh Barrett's Service: Patient seen and examined at bedside this AM. He admits to 7 out of 10 pain in nitza-rectal wound area. Patient is POD#5 I&D nitza-rectal abscess. Denies chest pain, SOB, nausea, vomiting, fevers, chills, nausea. Objective - Vital Signs/Intake and Output Vital Signs (last 24 hours): Temp Pulse Resp BP Pulse Ox 98.2 F 99 H 20 107/72 98 10/28/16 00:00 10/28/16 00:00 10/28/16 00:00 10/28/16 00:00 10/28/16 00:00 Intake and Output: 10/28/16 10/28/16 06:59 18:59 Intake Total 650 Output Total 900 Balance -250 - Medications Medications: Current Medications Acetaminophen (Tylenol 325mg Tab) 650 mg PO Q4 PRN PRN Reason: Pain, Mild (1-3) Diphenhydramine HCl (Benadryl) 25 mg IVP Q2 PRN Stop: 11/04/16 00:01 Last Admin: 10/28/16 06:12 Dose: 25 mg Enoxaparin Sodium (Lovenox) 30 mg SC DAILY [facility] Last Admin: 10/27/16 09:18 Dose: 30 mg Escitalopram Oxalate (Lexapro) 20 mg PO DAILY [facility] Last Admin: 10/27/16 09:18 Dose: 20 mg Gabapentin (Neurontin) 100 mg PO TID [facility] Last Admin: 10/27/16 17:04 Dose: 100 mg Hydromorphone HCl (Dilaudid) 2 mg IVP Q2 PRN PRN Reason: Pain, moderate (4-7) Last Admin: 10/28/16 06:10 Dose: 2 mg Cefazolin Sodium/Dextrose (Ancef Iv 1 Gm Duplex) 50 mls @ 100 mls/hr IVPB Q8H [facility] Last Admin: 10/28/16 02:16 Dose: 100 mls/hr Lactobacillus Acidophilus (Bacid Acidophilus) 1 cap PO BID [facility] Last Admin: 10/27/16 17:04 Dose: 1 cap Magnesium Hydroxide (Milk Of Magnesia) 30 ml PO DAILY PRN PRN Reason: Constipation Pantoprazole Sodium (Protonix Ec Tab) 20 mg PO DAILY [facility] Last Admin: 10/27/16 09:18 Dose: 20 mg Polyethylene Glycol (Miralax) 17 gm PO DAILY [facility] Last Admin: 10/27/16 09:18 Dose: 17 gm Trazodone HCl (Desyrel) 50 mg PO HS [facility] Last Admin: 10/27/16 22:05 Dose: 50 mg - Labs Labs: 10/27/16 11:01 10/27/16 11:01 - Head Exam Head Exam: ATRAUMATIC, NORMAL INSPECTION - Eye Exam Eye Exam: EOMI, Normal appearance Pupil Exam: NORMAL ACCOMODATION - ENT Exam ENT Exam: Mucous Membranes Moist, Normal Exam - Neck Exam Neck Exam: Full ROM, Normal Inspection - Respiratory Exam Respiratory Exam: Clear to Ausculation Bilateral, NORMAL BREATHING PATTERN - Cardiovascular Exam Cardiovascular Exam: REGULAR RHYTHM, +S1, +S2 - GI/Abdominal Exam GI & Abdominal Exam: Soft. absent: Tenderness Additional comments: Colostomy in place - Extremities Exam Extremities Exam: Normal Inspection - Neurological Exam Neurological Exam: Alert, Awake, Oriented x3 - Psychiatric Exam Psychiatric exam: Normal Affect, Normal Mood - Skin Additional comments: Pt deferred exam of perirectal abscess Assessment and Plan - Assessment and Plan (Free Text) Assessment: Perirectal Abscess POD#5 I&D of abscess with surgeon Dr. Taylor. Wound care nurse referral. Patient for dressing change this afternoon. ID Dr. Xavier consulted. Wound culture Klebsiella pneumonia sensitive for Ancef. Ancef 1g IV q8H started 10/22/16 Dilaudid 2mg IV q2H PRN. Lactobacillus Acidophilus - 1 cap PO BID Intractable Abdominal Pain Patient with Crohn's disease. Consult GI- Dr. Esme arora to discharge home from GI perspective s/p partial colectomy revision on 10/14/16 Dilaudid 2 mg IVP Q2h PRN Benadryl 25mg IVP Q2h PRN Toradol 10mg PO Q8h PRN Tylenol 650mg PO Q4h PRN Depression Psych consult placed- Dr. Persaud-help appreciated Continue Lexapro 20mg Trazodone 50 mg Neurontin 100 mg PO TID Supportive therapy CBT Prophylaxis Protonix 20mg PO daily Lovenox 30mg SC Daily on hold SCDs Management per Dr. Barrett
--- NOTE | 2016-10-28 08:17 | CP.PCM.PN ---
Subjective - Date & Time of Evaluation Date of Evaluation: 10/28/16 Time of Evaluation: 07:15 - Subjective Subjective: General Surgery Note Pt S&E, NAEO. C/o pain to left axillary sore. Pain well controlled. Tolerating PO well. Denies fever, chills, nausea, vomiting, diarrhea. Objective - Vital Signs/Intake and Output Vital Signs (last 24 hours): Temp Pulse Resp BP Pulse Ox 98.2 F 99 H 20 107/72 98 10/28/16 00:00 10/28/16 00:00 10/28/16 00:00 10/28/16 00:00 10/28/16 00:00 Intake and Output: 10/28/16 10/28/16 06:59 18:59 Intake Total 650 Output Total 900 Balance -250 - Medications Medications: Current Medications Acetaminophen (Tylenol 325mg Tab) 650 mg PO Q4 PRN PRN Reason: Pain, Mild (1-3) Diphenhydramine HCl (Benadryl) 25 mg IVP Q2 PRN Stop: 11/04/16 00:01 Last Admin: 10/28/16 06:12 Dose: 25 mg Enoxaparin Sodium (Lovenox) 30 mg SC DAILY [facility] Last Admin: 10/27/16 09:18 Dose: 30 mg Escitalopram Oxalate (Lexapro) 20 mg PO DAILY [facility] Last Admin: 10/27/16 09:18 Dose: 20 mg Gabapentin (Neurontin) 100 mg PO TID [facility] Last Admin: 10/27/16 17:04 Dose: 100 mg Hydromorphone HCl (Dilaudid) 2 mg IVP Q2 PRN PRN Reason: Pain, moderate (4-7) Last Admin: 10/28/16 06:10 Dose: 2 mg Cefazolin Sodium/Dextrose (Ancef Iv 1 Gm Duplex) 50 mls @ 100 mls/hr IVPB Q8H [facility] Last Admin: 10/28/16 02:16 Dose: 100 mls/hr Lactobacillus Acidophilus (Bacid Acidophilus) 1 cap PO BID [facility] Last Admin: 10/27/16 17:04 Dose: 1 cap Magnesium Hydroxide (Milk Of Magnesia) 30 ml PO DAILY PRN PRN Reason: Constipation Pantoprazole Sodium (Protonix Ec Tab) 20 mg PO DAILY [facility] Last Admin: 10/27/16 09:18 Dose: 20 mg Polyethylene Glycol (Miralax) 17 gm PO DAILY [facility] Last Admin: 10/27/16 09:18 Dose: 17 gm Trazodone HCl (Desyrel) 50 mg PO HS [facility] Last Admin: 10/27/16 22:05 Dose: 50 mg - Labs Labs: 10/27/16 11:01 10/27/16 11:01 - Constitutional Appears: Well, No Acute Distress - Head Exam Head Exam: ATRAUMATIC, NORMOCEPHALIC - Eye Exam Eye Exam: EOMI. absent: Scleral icterus - ENT Exam ENT Exam: Mucous Membranes Moist - Respiratory Exam Respiratory Exam: NORMAL BREATHING PATTERN. absent: Respiratory Distress - Cardiovascular Exam Cardiovascular Exam: RRR, +S1, +S2 - GI/Abdominal Exam GI & Abdominal Exam: Soft. absent: Tenderness Additional comments: Colostomy in place, producing brown stool - Extremities Exam Additional comments: L axilla with 1cm sore, TTP, no drainage - Neurological Exam Neurological Exam: Alert, Awake - Skin Skin Exam: Dry, Warm Additional comments: open sore with surrounding indurated swelling. No flutuance noted. Pt deferred exam of perirectal abscess until dressing change in afternoon Assessment and Plan - Assessment and Plan (Free Text) Assessment: 21M with Crohn's disease s/p perirectal abscess I&D POD#5 Plan: Continue daily packing changes Will change perirectal abscess dressing in afternoon Abx per ID Dr. Xavier D/W Dr. 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 Claudia Marr PGY3
[2016-10-28 08:27] LABS: BASO # 0.1 K/uL (0.0-0.2); BASO % 0.5 % (0.0-2.0); EOS # 0.5 K/uL (0.0-0.7); EOS % 5.1 % (0.0-4.0); HEMATOCRIT 28.9 % (35.0-51.0); LYMPH # 2.9 K/uL (1.0-4.3); LYMPH % 27.8 % (20.0-40.0); MEAN CELL VOLUME 66.8 fL (80.0-94.0); MEAN CORPUSCULAR HEMOGLOBIN 20.7 pg (27.0-31.0); MONO # 0.6 K/uL (0.0-0.8); MONO % 5.9 % (0.0-10.0); RED CELL DISTRIBUTION WIDTH 15.9 % (11.5-14.5); WHITE BLOOD COUNT 10.4 K/uL (4.8-10.8)
[2016-10-28 08:28] LABS: CHLORIDE 91 mmol/L (98-107)
[2016-10-28 08:29] LABS: SODIUM 141 mmol/L (132-148)
[2016-10-28 08:31] LABS: ALKALINE PHOSPHATASE 148 U/L (38-126); AST/SGOT 29 U/L (17-59); BILIRUBIN,TOTAL 0.3 mg/dL (0.2-1.3); CARBON DIOXIDE 35 mmol/L (22-30); GFR AFRICAN-AMERICAN > 60
[2016-10-28 08:32] LABS: ALB/GLOB RATIO 0.8 (1.0-2.1); ALT/SGPT 28 U/L (21-72); BLOOD UREA NITROGEN 7 mg/dL (9-20); CALCIUM 9.2 mg/dl (8.6-10.4); GLUCOSE,RANDOM 94 mg/dL (75-110)
[2016-10-28] MEDS: Enoxaparin 30 mg Syringe SC SCH (10:20)
[2016-10-28] MEDS: POLYETHYLENE GLYCOL 3350 17 GM/Dose PACKET PO SCH ×2 (10:22→10:25)
[2016-10-28] MEDS: Lactobacillus Acidophilus 500 MU Cap PO SCH ×2 (10:22→18:34)
[2016-10-28] MEDS: Pantoprazole 20 mg EC Tab PO SCH (10:23)
--- NOTE | 2016-10-28 13:40 | CP.PCM.PN ---
Subjective - Date & Time of Evaluation Date of Evaluation: 10/28/16 Time of Evaluation: 09:20 - Subjective Subjective: clinically same Objective - Vital Signs/Intake and Output Vital Signs (last 24 hours): Temp Pulse Resp BP Pulse Ox 98.5 F 70 20 102/68 97 10/28/16 08:00 10/28/16 08:00 10/28/16 08:00 10/28/16 08:00 10/28/16 08:00 Intake and Output: 10/28/16 10/28/16 06:59 18:59 Intake Total 650 Output Total 900 Balance -250 - Medications Medications: Current Medications Acetaminophen (Tylenol 325mg Tab) 650 mg PO Q4 PRN PRN Reason: Pain, Mild (1-3) Diphenhydramine HCl (Benadryl) 25 mg IVP Q2 PRN Stop: 11/04/16 00:01 Last Admin: 10/28/16 12:21 Dose: 25 mg Enoxaparin Sodium (Lovenox) 30 mg SC DAILY [facility] Last Admin: 10/28/16 10:20 Dose: 30 mg Escitalopram Oxalate (Lexapro) 20 mg PO DAILY [facility] Last Admin: 10/28/16 10:22 Dose: 20 mg Gabapentin (Neurontin) 100 mg PO TID [facility] Last Admin: 10/28/16 10:21 Dose: 100 mg Hydromorphone HCl (Dilaudid) 2 mg IVP Q2 PRN PRN Reason: Pain, moderate (4-7) Last Admin: 10/28/16 12:22 Dose: 2 mg Cefazolin Sodium/Dextrose (Ancef Iv 1 Gm Duplex) 50 mls @ 100 mls/hr IVPB Q8H [facility] Last Admin: 10/28/16 10:21 Dose: 100 mls/hr Lactobacillus Acidophilus (Bacid Acidophilus) 1 cap PO BID [facility] Last Admin: 10/28/16 10:22 Dose: 1 cap Magnesium Hydroxide (Milk Of Magnesia) 30 ml PO DAILY PRN PRN Reason: Constipation Pantoprazole Sodium (Protonix Ec Tab) 20 mg PO DAILY [facility] Last Admin: 10/28/16 10:23 Dose: 20 mg Polyethylene Glycol (Miralax) 17 gm PO DAILY [facility] Last Admin: 10/28/16 10:25 Dose: Not Given Trazodone HCl (Desyrel) 50 mg PO HS [facility] Last Admin: 10/27/16 22:05 Dose: 50 mg - Labs Labs: 10/28/16 08:07 10/28/16 08:07
[2016-10-29] MEDS: DiphenhydrAMINE 50 mg/ml Inj IVP PRN ×10 (00:30→21:38)
[2016-10-29] MEDS: ceFAZolin IV 1 gm in Dextrose 50 ML IVPB SCH ×3 (02:35→19:00)
[2016-10-29 07:27] LABS: BASO # 0.1 K/uL (0.0-0.2); BASO % 0.9 % (0.0-2.0); EOS # 0.5 K/uL (0.0-0.7); HEMATOCRIT 29.3 % (35.0-51.0); LYMPH # 3.1 K/uL (1.0-4.3); LYMPH % 36.1 % (20.0-40.0); MEAN CELL VOLUME 66.3 fL (80.0-94.0); MEAN CORPUSCULAR HEMOGLOBIN 20.5 pg (27.0-31.0); MEAN CORPUSCULAR HGB CONC 30.9 g/dL (33.0-37.0); MEAN PLATELET VOLUME 7.8 fL (7.2-11.7); MONO # 0.5 K/uL (0.0-0.8); MONO % 5.7 % (0.0-10.0); RED CELL DISTRIBUTION WIDTH 16.1 % (11.5-14.5); WHITE BLOOD COUNT 8.7 K/uL (4.8-10.8)
[2016-10-29 07:30] LABS: CHLORIDE 92 mmol/L (98-107)
[2016-10-29 07:31] LABS: POTASSIUM 3.7 mmol/L (3.6-5.2); SODIUM 139 mmol/L (132-148)
[2016-10-29 07:33] LABS: GFR AFRICAN-AMERICAN > 60
[2016-10-29 07:34] LABS: ALB/GLOB RATIO 0.9 (1.0-2.1); ALKALINE PHOSPHATASE 142 U/L (38-126); ALT/SGPT 13 U/L (21-72); AST/SGOT 23 U/L (17-59); BILIRUBIN,TOTAL 0.2 mg/dL (0.2-1.3); BLOOD UREA NITROGEN 7 mg/dL (9-20); CALCIUM 8.3 mg/dl (8.6-10.4); CARBON DIOXIDE 31 mmol/L (22-30); GLUCOSE,RANDOM 77 mg/dL (75-110); TOTAL PROTEIN 7.9 g/dL (6.3-8.3)
--- NOTE | 2016-10-29 08:23 | CP.PCM.PN ---
Subjective - Date & Time of Evaluation Date of Evaluation: 10/29/16 Time of Evaluation: 08:19 - Subjective Subjective: Surgery: Dr. Taylor Patient doing well today. Denies any complaints of pain to the rectum today. He denies f/c/n/v. He states he would like to go home soon and would like nursing assistance for wound care. Objective - Vital Signs/Intake and Output Vital Signs (last 24 hours): Temp Pulse Resp BP Pulse Ox 98.2 F 86 20 106/72 99 10/29/16 07:39 10/29/16 07:39 10/29/16 07:39 10/29/16 07:39 10/29/16 07:39 Intake and Output: 10/29/16 10/29/16 06:59 18:59 Intake Total 900 Output Total 1300 Balance -400 - Medications Medications: Current Medications Acetaminophen (Tylenol 325mg Tab) 650 mg PO Q4 PRN PRN Reason: Pain, Mild (1-3) Diphenhydramine HCl (Benadryl) 25 mg IVP Q2 PRN Stop: 11/04/16 00:01 Last Admin: 10/29/16 06:25 Dose: 25 mg Enoxaparin Sodium (Lovenox) 30 mg SC DAILY [facility] Last Admin: 10/28/16 10:20 Dose: 30 mg Escitalopram Oxalate (Lexapro) 20 mg PO DAILY [facility] Last Admin: 10/28/16 10:22 Dose: 20 mg Gabapentin (Neurontin) 100 mg PO TID [facility] Last Admin: 10/28/16 18:26 Dose: 100 mg Hydromorphone HCl (Dilaudid) 2 mg IVP Q2 PRN PRN Reason: Pain, moderate (4-7) Last Admin: 10/29/16 06:25 Dose: 2 mg Cefazolin Sodium/Dextrose (Ancef Iv 1 Gm Duplex) 50 mls @ 100 mls/hr IVPB Q8H [facility] Last Admin: 10/29/16 02:35 Dose: 100 mls/hr Lactobacillus Acidophilus (Bacid Acidophilus) 1 cap PO BID [facility] Last Admin: 10/28/16 18:34 Dose: 1 cap Magnesium Hydroxide (Milk Of Magnesia) 30 ml PO DAILY PRN PRN Reason: Constipation Pantoprazole Sodium (Protonix Ec Tab) 20 mg PO DAILY [facility] Last Admin: 10/28/16 10:23 Dose: 20 mg Polyethylene Glycol (Miralax) 17 gm PO DAILY [facility] Last Admin: 10/28/16 10:25 Dose: Not Given Trazodone HCl (Desyrel) 50 mg PO HS [facility] Last Admin: 10/28/16 22:18 Dose: 50 mg - Labs Labs: 10/29/16 07:06 10/29/16 07:06 - Constitutional Appears: Well, Non-toxic, No Acute Distress - Head Exam Head Exam: ATRAUMATIC, NORMOCEPHALIC - Eye Exam Eye Exam: EOMI, Normal appearance - ENT Exam ENT Exam: Mucous Membranes Moist - Respiratory Exam Respiratory Exam: NORMAL BREATHING PATTERN. absent: Respiratory Distress - Cardiovascular Exam Cardiovascular Exam: REGULAR RHYTHM. absent: Tachycardia - Rectal Exam Rectal Exam: Deferred - Neurological Exam Neurological Exam: Alert, Awake, Oriented x3 - Skin Skin Exam: Dry, Normal Color, Warm Assessment and Plan - Assessment and Plan (Free Text) Assessment: 21 y/o male w/ Crohn's disease and nitza-rectal abscesses s/p I&D POD6 Plan: -needs GI fu for Crohn's managment -abx per ID recommendation -will need home wound care assistance for daily packing changes to surgical site -pain control -no further surgical intervention at this time -further recs per Dr. Claudia Oscar PGY1
[2016-10-29] MEDS: Lactobacillus Acidophilus 500 MU Cap PO SCH ×2 (09:15→17:22)
[2016-10-29] MEDS: Pantoprazole 20 mg EC Tab PO SCH (09:15)
[2016-10-29] MEDS: POLYETHYLENE GLYCOL 3350 17 GM/Dose PACKET PO SCH (09:24)
[2016-10-29] MEDS: Enoxaparin 30 mg Syringe SC SCH (09:25)
--- NOTE | 2016-10-29 14:15 | CP.PCM.PN ---
Subjective - Date & Time of Evaluation Date of Evaluation: 10/29/16 Time of Evaluation: 08:40 - Subjective Subjective: Medicine Note- Dr. Barrett's service Patient was seen and examined at bedside. Patient reports that his pain is well controlled at this time. Tolerating PO. He says he wants to go home. No events overnight, per nursing. Objective - Vital Signs/Intake and Output Vital Signs (last 24 hours): Temp Pulse Resp BP Pulse Ox 98.2 F 86 20 106/72 99 10/29/16 07:39 10/29/16 08:40 10/29/16 07:39 10/29/16 07:39 10/29/16 07:39 Intake and Output: 10/29/16 10/29/16 06:59 18:59 Intake Total 900 Output Total 1300 Balance -400 - Medications Medications: Current Medications Acetaminophen (Tylenol 325mg Tab) 650 mg PO Q4 PRN PRN Reason: Pain, Mild (1-3) Diphenhydramine HCl (Benadryl) 25 mg IVP Q2 PRN Stop: 11/04/16 00:01 Last Admin: 10/29/16 11:43 Dose: 25 mg Enoxaparin Sodium (Lovenox) 30 mg SC DAILY [facility] Last Admin: 10/29/16 09:25 Dose: 30 mg Escitalopram Oxalate (Lexapro) 20 mg PO DAILY [facility] Last Admin: 10/29/16 09:15 Dose: 20 mg Gabapentin (Neurontin) 100 mg PO TID [facility] Last Admin: 10/29/16 13:39 Dose: 100 mg Hydromorphone HCl (Dilaudid) 2 mg IVP Q2 PRN PRN Reason: Pain, moderate (4-7) Last Admin: 10/29/16 11:39 Dose: 2 mg Cefazolin Sodium/Dextrose (Ancef Iv 1 Gm Duplex) 50 mls @ 100 mls/hr IVPB Q8H [facility] Last Admin: 10/29/16 11:37 Dose: 100 mls/hr Lactobacillus Acidophilus (Bacid Acidophilus) 1 cap PO BID [facility] Last Admin: 10/29/16 09:15 Dose: 1 cap Magnesium Hydroxide (Milk Of Magnesia) 30 ml PO DAILY PRN PRN Reason: Constipation Pantoprazole Sodium (Protonix Ec Tab) 20 mg PO DAILY [facility] Last Admin: 10/29/16 09:15 Dose: 20 mg Polyethylene Glycol (Miralax) 17 gm PO DAILY [facility] Last Admin: 10/29/16 09:24 Dose: Not Given Trazodone HCl (Desyrel) 50 mg PO HS [facility] Last Admin: 10/28/16 22:18 Dose: 50 mg - Labs Labs: 10/29/16 07:06 10/29/16 07:06 - Constitutional Appears: Non-toxic, No Acute Distress - Head Exam Head Exam: ATRAUMATIC, NORMAL INSPECTION, NORMOCEPHALIC - Eye Exam Pupil Exam: NORMAL ACCOMODATION - ENT Exam ENT Exam: Mucous Membranes Moist - Respiratory Exam Respiratory Exam: Clear to Ausculation Bilateral, NORMAL BREATHING PATTERN. absent: Prolonged Expiratory Phase, Rales, Rhonchi, Wheezes - Cardiovascular Exam Cardiovascular Exam: REGULAR RHYTHM, +S1, +S2 - GI/Abdominal Exam GI & Abdominal Exam: Soft, Normal Bowel Sounds. absent: Tenderness, Diminished Bowel Sounds, Hypoactive Bowel Sounds - Rectal Exam Additional comments: perirectal abscess packed, no discharge erythema at this time. - Extremities Exam Extremities Exam: Normal Capillary Refill, Normal Inspection - Neurological Exam Neurological Exam: Alert, Awake, Oriented x3 - Psychiatric Exam Psychiatric exam: Normal Affect, Normal Mood - Skin Skin Exam: Dry, Intact, Normal Color, Warm Assessment and Plan - Assessment and Plan (Free Text) Assessment: Perirectal Abscess POD#6 I&D of abscess with surgeon Dr. Taylor. Wound care nurse referral. Patient for dressing change this afternoon. ID Dr. Xavier consulted. Wound culture Klebsiella pneumonia sensitive for Ancef. Ancef 1g IV q8H started 10/22/16 Dilaudid 2mg IV q2H PRN. Lactobacillus Acidophilus - 1 cap PO BID Intractable Abdominal Pain Patient with Crohn's disease. Consult GI- Dr. Lopez- okay to discharge home from GI perspective s/p partial colectomy revision on 10/14/16 Dilaudid 2 mg IVP Q2h PRN Benadryl 25mg IVP Q2h PRN Toradol 10mg PO Q8h PRN Tylenol 650mg PO Q4h PRN Depression Psych consult placed- Dr. Persaud-help appreciated Continue Lexapro 20mg Trazodone 50 mg Neurontin 100 mg PO TID Supportive therapy CBT Prophylaxis Protonix 20mg PO daily Lovenox 30mg SC Daily on hold SCDs Management per Dr. Barrett
--- NOTE | 2016-10-29 15:26 | CP.PCM.PN ---
Subjective - Date & Time of Evaluation Date of Evaluation: 10/29/16 Time of Evaluation: 10:00 - Subjective Subjective: c/o swelling/ abscess left axilla c/s taken wouind care in progress Objective - Vital Signs/Intake and Output Vital Signs (last 24 hours): Temp Pulse Resp BP Pulse Ox 98.2 F 86 20 106/72 99 10/29/16 07:39 10/29/16 08:40 10/29/16 07:39 10/29/16 07:39 10/29/16 07:39 Intake and Output: 10/29/16 10/29/16 06:59 18:59 Intake Total 900 Output Total 1300 Balance -400 - Medications Medications: Current Medications Acetaminophen (Tylenol 325mg Tab) 650 mg PO Q4 PRN PRN Reason: Pain, Mild (1-3) Diphenhydramine HCl (Benadryl) 25 mg IVP Q2 PRN Stop: 11/04/16 00:01 Last Admin: 10/29/16 14:27 Dose: 25 mg Enoxaparin Sodium (Lovenox) 30 mg SC DAILY [facility] Last Admin: 10/29/16 09:25 Dose: 30 mg Escitalopram Oxalate (Lexapro) 20 mg PO DAILY [facility] Last Admin: 10/29/16 09:15 Dose: 20 mg Gabapentin (Neurontin) 100 mg PO TID [facility] Last Admin: 10/29/16 13:39 Dose: 100 mg Hydromorphone HCl (Dilaudid) 2 mg IVP Q2 PRN PRN Reason: Pain, moderate (4-7) Last Admin: 10/29/16 14:25 Dose: 2 mg Cefazolin Sodium/Dextrose (Ancef Iv 1 Gm Duplex) 50 mls @ 100 mls/hr IVPB Q8H [facility] Last Admin: 10/29/16 11:37 Dose: 100 mls/hr Lactobacillus Acidophilus (Bacid Acidophilus) 1 cap PO BID [facility] Last Admin: 10/29/16 09:15 Dose: 1 cap Magnesium Hydroxide (Milk Of Magnesia) 30 ml PO DAILY PRN PRN Reason: Constipation Pantoprazole Sodium (Protonix Ec Tab) 20 mg PO DAILY [facility] Last Admin: 10/29/16 09:15 Dose: 20 mg Polyethylene Glycol (Miralax) 17 gm PO DAILY [facility] Last Admin: 10/29/16 09:24 Dose: Not Given Trazodone HCl (Desyrel) 50 mg PO HS [facility] Last Admin: 10/28/16 22:18 Dose: 50 mg - Labs Labs: 10/29/16 07:06 10/29/16 07:06 - Constitutional Appears: Non-toxic, Chronically Ill - Head Exam Head Exam: NORMOCEPHALIC - Eye Exam Eye Exam: absent: Scleral icterus - ENT Exam ENT Exam: Mucous Membranes Dry, Normal External Ear Exam - Neck Exam Neck Exam: absent: Lymphadenopathy - Respiratory Exam Respiratory Exam: Decreased Breath Sounds, Clear to Ausculation Bilateral - Cardiovascular Exam Cardiovascular Exam: REGULAR RHYTHM, +S1, +S2 - GI/Abdominal Exam GI & Abdominal Exam: Distended, Soft. absent: Tenderness - Rectal Exam Rectal Exam: Deferred - Extremities Exam Extremities Exam: absent: Calf Tenderness, Pedal Edema - Back Exam Back Exam: absent: CVA tenderness (L), CVA tenderness (R) - Neurological Exam Neurological Exam: Alert, Awake, Oriented x3 Assessment and Plan (1) Abscess Status: Acute
--- NOTE | 2016-10-29 17:24 | CP.PCM.PN ---
Subjective - Date & Time of Evaluation Date of Evaluation: 10/29/16 Time of Evaluation: 09:20 - Subjective Subjective: clinically same Objective - Vital Signs/Intake and Output Vital Signs (last 24 hours): Temp Pulse Resp BP Pulse Ox 98.2 F 86 20 106/72 99 10/29/16 07:39 10/29/16 08:40 10/29/16 07:39 10/29/16 07:39 10/29/16 07:39 Intake and Output: 10/29/16 10/29/16 06:59 18:59 Intake Total 900 Output Total 1300 Balance -400 - Medications Medications: Current Medications Acetaminophen (Tylenol 325mg Tab) 650 mg PO Q4 PRN PRN Reason: Pain, Mild (1-3) Diphenhydramine HCl (Benadryl) 25 mg IVP Q2 PRN Stop: 11/04/16 00:01 Last Admin: 10/29/16 17:08 Dose: 25 mg Enoxaparin Sodium (Lovenox) 30 mg SC DAILY [facility] Last Admin: 10/29/16 09:25 Dose: 30 mg Escitalopram Oxalate (Lexapro) 20 mg PO DAILY [facility] Last Admin: 10/29/16 09:15 Dose: 20 mg Gabapentin (Neurontin) 100 mg PO TID [facility] Last Admin: 10/29/16 13:39 Dose: 100 mg Hydromorphone HCl (Dilaudid) 2 mg IVP Q2 PRN PRN Reason: Pain, moderate (4-7) Last Admin: 10/29/16 17:09 Dose: 2 mg Cefazolin Sodium/Dextrose (Ancef Iv 1 Gm Duplex) 50 mls @ 100 mls/hr IVPB Q8H [facility] Last Admin: 10/29/16 11:37 Dose: 100 mls/hr Lactobacillus Acidophilus (Bacid Acidophilus) 1 cap PO BID [facility] Last Admin: 10/29/16 09:15 Dose: 1 cap Magnesium Hydroxide (Milk Of Magnesia) 30 ml PO DAILY PRN PRN Reason: Constipation Pantoprazole Sodium (Protonix Ec Tab) 20 mg PO DAILY [facility] Last Admin: 10/29/16 09:15 Dose: 20 mg Polyethylene Glycol (Miralax) 17 gm PO DAILY [facility] Last Admin: 10/29/16 09:24 Dose: Not Given Trazodone HCl (Desyrel) 50 mg PO HS [facility] Last Admin: 10/28/16 22:18 Dose: 50 mg - Labs Labs: 10/29/16 07:06 10/29/16 07:06 - Constitutional Appears: Well - Head Exam Head Exam: ATRAUMATIC, NORMAL INSPECTION, NORMOCEPHALIC - Eye Exam Eye Exam: EOMI, Normal appearance, PERRL Pupil Exam: NORMAL ACCOMODATION, PERRL - ENT Exam ENT Exam: Mucous Membranes Moist, Normal Exam - Neck Exam Neck Exam: Full ROM, Normal Inspection. absent: Lymphadenopathy - Respiratory Exam Respiratory Exam: Decreased Breath Sounds - Cardiovascular Exam Cardiovascular Exam: REGULAR RHYTHM, +S1, +S2 - GI/Abdominal Exam GI & Abdominal Exam: Soft, Diminished Bowel Sounds - Rectal Exam Rectal Exam: Deferred
[2016-10-30] MEDS: DiphenhydrAMINE 50 mg/ml Inj IVP PRN ×10 (00:08→21:27)
[2016-10-30] MEDS: ceFAZolin IV 1 gm in Dextrose 50 ML IVPB SCH ×3 (02:35→19:12)
[2016-10-30 06:26] LABS: BASO # 0.1 K/uL (0.0-0.2); BASO % 0.6 % (0.0-2.0); EOS # 0.7 K/uL (0.0-0.7); HEMATOCRIT 27.2 % (35.0-51.0); LYMPH # 2.9 K/uL (1.0-4.3); LYMPH % 28.6 % (20.0-40.0); MEAN CELL VOLUME 66.7 fL (80.0-94.0); MEAN CORPUSCULAR HEMOGLOBIN 21.1 pg (27.0-31.0); MEAN CORPUSCULAR HGB CONC 31.7 g/dL (33.0-37.0); MEAN PLATELET VOLUME 7.8 fL (7.2-11.7); MONO # 0.7 K/uL (0.0-0.8); MONO % 7.3 % (0.0-10.0); RED CELL DISTRIBUTION WIDTH 15.8 % (11.5-14.5); WHITE BLOOD COUNT 10.2 K/uL (4.8-10.8)
[2016-10-30 06:32] LABS: CHLORIDE 96 mmol/L (98-107)
[2016-10-30 06:33] LABS: POTASSIUM 4.2 mmol/L (3.6-5.2); SODIUM 141 mmol/L (132-148)
[2016-10-30 06:35] LABS: ALB/GLOB RATIO 0.9 (1.0-2.1); ALKALINE PHOSPHATASE 122 U/L (38-126); AST/SGOT 23 U/L (17-59); BILIRUBIN,TOTAL < 0.1 mg/dL (0.2-1.3); BLOOD UREA NITROGEN 4 mg/dL (9-20); CARBON DIOXIDE 33 mmol/L (22-30); GFR AFRICAN-AMERICAN > 60; GLUCOSE,RANDOM 90 mg/dL (75-110); TOTAL PROTEIN 7.4 g/dL (6.3-8.3)
[2016-10-30 06:36] LABS: ALT/SGPT 20 U/L (21-72)
[2016-10-30] MEDS: Enoxaparin 30 mg Syringe SC SCH (10:03)
[2016-10-30] MEDS: Lactobacillus Acidophilus 500 MU Cap PO SCH ×2 (10:04→17:45)
[2016-10-30] MEDS: Pantoprazole 20 mg EC Tab PO SCH (10:04)
[2016-10-30] MEDS: POLYETHYLENE GLYCOL 3350 17 GM/Dose PACKET PO SCH (10:08)
--- NOTE | 2016-10-30 10:34 | US ---
PROCEDURE: HISTORY: U/S Left Axilla to eval for abscess COMPARISON: None TECHNIQUE: Ultrasound scanning of the left axilla with color Doppler was applied FINDINGS: Left axilla which is labeled "Area of redness" there is skin thickening suggested. The few axillary lymph nodes seen in this area morphologically normal No abscess noted on these images IMPRESSION: No abscess. Normal appearing left axillary lymph nodes Left skin thickening consistent with a cellulitis.
--- NOTE | 2016-10-30 13:39 | CP.PCM.PN ---
<Jai Ferrer - Last Filed: 10/30/16 13:30> Subjective - Date & Time of Evaluation Date of Evaluation: 10/30/16 Time of Evaluation: 10:00 - Subjective Subjective: PGY2 on medicine Dr. Barrett service: Pt seen and examined at bedside this morning. Pt said pain improved somewhat from before, controlled with medication. No acute events overnight. No other complaints at the moment. Objective - Vital Signs/Intake and Output Vital Signs (last 24 hours): Temp Pulse Resp BP Pulse Ox 97.8 F 74 20 109/73 96 10/30/16 08:00 10/30/16 08:00 10/30/16 08:00 10/30/16 08:00 10/30/16 08:00 Intake and Output: 10/30/16 10/30/16 06:59 18:59 Intake Total 170 Output Total 1000 Balance -830 - Medications Medications: Current Medications Acetaminophen (Tylenol 325mg Tab) 650 mg PO Q4 PRN PRN Reason: Pain, Mild (1-3) Diphenhydramine HCl (Benadryl) 25 mg IVP Q2 PRN Stop: 11/04/16 00:01 Last Admin: 10/30/16 12:26 Dose: 25 mg Enoxaparin Sodium (Lovenox) 30 mg SC DAILY [facility] Last Admin: 10/30/16 10:03 Dose: 30 mg Escitalopram Oxalate (Lexapro) 20 mg PO DAILY [facility] Last Admin: 10/30/16 10:15 Dose: 20 mg Gabapentin (Neurontin) 100 mg PO TID [facility] Last Admin: 10/30/16 10:03 Dose: 100 mg Hydromorphone HCl (Dilaudid) 2 mg IVP Q2 PRN PRN Reason: Pain, moderate (4-7) Last Admin: 10/30/16 12:27 Dose: 2 mg Cefazolin Sodium/Dextrose (Ancef Iv 1 Gm Duplex) 50 mls @ 100 mls/hr IVPB Q8H [facility] Last Admin: 10/30/16 10:07 Dose: 100 mls/hr Lactobacillus Acidophilus (Bacid Acidophilus) 1 cap PO BID [facility] Last Admin: 10/30/16 10:04 Dose: 1 cap Magnesium Hydroxide (Milk Of Magnesia) 30 ml PO DAILY PRN PRN Reason: Constipation Pantoprazole Sodium (Protonix Ec Tab) 20 mg PO DAILY [facility] Last Admin: 10/30/16 10:04 Dose: 20 mg Polyethylene Glycol (Miralax) 17 gm PO DAILY [facility] Last Admin: 10/30/16 10:08 Dose: Not Given Trazodone HCl (Desyrel) 50 mg PO HS [facility] Last Admin: 10/29/16 21:37 Dose: 50 mg - Labs Labs: 10/30/16 06:07 10/30/16 06:07 - Constitutional Appears: Non-toxic, No Acute Distress - Head Exam Head Exam: NORMAL INSPECTION, NORMOCEPHALIC - Eye Exam Eye Exam: Normal appearance Pupil Exam: NORMAL ACCOMODATION - Respiratory Exam Respiratory Exam: Clear to Ausculation Bilateral, NORMAL BREATHING PATTERN - Cardiovascular Exam Cardiovascular Exam: REGULAR RHYTHM, +S1, +S2. absent: Gallop, Rubs - GI/Abdominal Exam GI & Abdominal Exam: Soft, Normal Bowel Sounds - Extremities Exam Extremities Exam: absent: Pedal Edema - Back Exam Additional comments: Sacral dressing C/D/I - Neurological Exam Neurological Exam: Alert, Awake, Oriented x3 - Psychiatric Exam Psychiatric exam: Normal Affect, Normal Mood - Skin Skin Exam: Dry, Intact Assessment and Plan - Assessment and Plan (Free Text) Assessment: Perirectal Abscess POD#7 I&D of abscess with surgeon Dr. Taylor. Wound care nurse referral. Patient for dressing change this afternoon. ID Dr. Xavier consulted. Wound culture Klebsiella pneumonia sensitive for Ancef. Ancef 1g IV q8H started 10/22/16 Dilaudid 2mg IV q2H PRN. Lactobacillus Acidophilus - 1 cap PO BID Intractable Abdominal Pain Patient with Crohn's disease. Consult GI- Dr. Lopez- yvonneay to discharge home from GI perspective s/p partial colectomy revision on 10/14/16 Dilaudid 2 mg IVP Q2h PRN Benadryl 25mg IVP Q2h PRN Toradol 10mg PO Q8h PRN Tylenol 650mg PO Q4h PRN Depression Psych consult placed- Dr. Persaud-help appreciated Continue Lexapro 20mg Trazodone 50 mg Neurontin 100 mg PO TID Supportive therapy CBT Prophylaxis Protonix 20mg PO daily Lovenox 30mg SC Daily on hold SCDs Management per Dr. Barrett <Osvaldo Barrett S - Last Filed: 10/30/16 20:19> Objective - Vital Signs/Intake and Output Vital Signs (last 24 hours): Temp Pulse Resp BP Pulse Ox 99 F 87 20 105/67 100 10/30/16 15:25 10/30/16 18:12 10/30/16 15:25 10/30/16 15:25 10/30/16 15:25 - Medications Medications: Current Medications Acetaminophen (Tylenol 325mg Tab) 650 mg PO Q4 PRN PRN Reason: Pain, Mild (1-3) Diphenhydramine HCl (Benadryl) 25 mg IVP Q2 PRN Stop: 11/04/16 00:01 Last Admin: 10/30/16 19:02 Dose: 25 mg Enoxaparin Sodium (Lovenox) 30 mg SC DAILY [facility] Last Admin: 10/30/16 10:03 Dose: 30 mg Escitalopram Oxalate (Lexapro) 20 mg PO DAILY [facility] Last Admin: 10/30/16 10:15 Dose: 20 mg Gabapentin (Neurontin) 100 mg PO TID [facility] Last Admin: 10/30/16 17:45 Dose: 100 mg Hydromorphone HCl (Dilaudid) 2 mg IVP Q2 PRN PRN Reason: Pain, moderate (4-7) Last Admin: 10/30/16 19:02 Dose: 2 mg Cefazolin Sodium/Dextrose (Ancef Iv 1 Gm Duplex) 50 mls @ 100 mls/hr IVPB Q8H [facility] Last Admin: 10/30/16 19:12 Dose: 100 mls/hr Lactobacillus Acidophilus (Bacid Acidophilus) 1 cap PO BID [facility] Last Admin: 10/30/16 17:45 Dose: 1 cap Magnesium Hydroxide (Milk Of Magnesia) 30 ml PO DAILY PRN PRN Reason: Constipation Pantoprazole Sodium (Protonix Ec Tab) 20 mg PO DAILY [facility] Last Admin: 10/30/16 10:04 Dose: 20 mg Polyethylene Glycol (Miralax) 17 gm PO DAILY [facility] Last Admin: 10/30/16 10:08 Dose: Not Given Trazodone HCl (Desyrel) 50 mg PO HS [facility] Last Admin: 10/29/16 21:37 Dose: 50 mg - Labs Labs: 10/30/16 06:07 10/30/16 06:07 Attending/Attestation - Attestation I have personally seen and examined this patient.: Yes I have fully participated in the care of the patient.: Yes I have reviewed all pertinent clinical information, including history, physical exam and plan: Yes Notes (Text): 10/30/16 20:19 case seen and discussed with pt
--- NOTE | 2016-10-30 16:50 | CP.PCM.PN ---
Subjective - Date & Time of Evaluation Date of Evaluation: 10/30/16 Time of Evaluation: 16:49 - Subjective Subjective: Surgery: Dr. Taylor patient doing well today. Wound care being done by nursing. Denies f/c/n/v. Objective - Vital Signs/Intake and Output Vital Signs (last 24 hours): Temp Pulse Resp BP Pulse Ox 97.8 F 74 20 109/73 96 10/30/16 08:00 10/30/16 15:07 10/30/16 08:00 10/30/16 15:07 10/30/16 15:07 Intake and Output: 10/30/16 10/30/16 06:59 18:59 Intake Total 170 Output Total 1000 Balance -830 - Medications Medications: Current Medications Acetaminophen (Tylenol 325mg Tab) 650 mg PO Q4 PRN PRN Reason: Pain, Mild (1-3) Diphenhydramine HCl (Benadryl) 25 mg IVP Q2 PRN Stop: 11/04/16 00:01 Last Admin: 10/30/16 14:39 Dose: 25 mg Enoxaparin Sodium (Lovenox) 30 mg SC DAILY [facility] Last Admin: 10/30/16 10:03 Dose: 30 mg Escitalopram Oxalate (Lexapro) 20 mg PO DAILY [facility] Last Admin: 10/30/16 10:15 Dose: 20 mg Gabapentin (Neurontin) 100 mg PO TID [facility] Last Admin: 10/30/16 14:38 Dose: 100 mg Hydromorphone HCl (Dilaudid) 2 mg IVP Q2 PRN PRN Reason: Pain, moderate (4-7) Last Admin: 10/30/16 14:39 Dose: 2 mg Cefazolin Sodium/Dextrose (Ancef Iv 1 Gm Duplex) 50 mls @ 100 mls/hr IVPB Q8H [facility] Last Admin: 10/30/16 10:07 Dose: 100 mls/hr Lactobacillus Acidophilus (Bacid Acidophilus) 1 cap PO BID [facility] Last Admin: 10/30/16 10:04 Dose: 1 cap Magnesium Hydroxide (Milk Of Magnesia) 30 ml PO DAILY PRN PRN Reason: Constipation Pantoprazole Sodium (Protonix Ec Tab) 20 mg PO DAILY [facility] Last Admin: 10/30/16 10:04 Dose: 20 mg Polyethylene Glycol (Miralax) 17 gm PO DAILY [facility] Last Admin: 10/30/16 10:08 Dose: Not Given Trazodone HCl (Desyrel) 50 mg PO HS [facility] Last Admin: 10/29/16 21:37 Dose: 50 mg - Labs Labs: 10/30/16 06:07 10/30/16 06:07 - Constitutional Appears: Well, Non-toxic, No Acute Distress - Head Exam Head Exam: ATRAUMATIC, NORMOCEPHALIC - Eye Exam Eye Exam: EOMI, Normal appearance - ENT Exam ENT Exam: Mucous Membranes Moist - Respiratory Exam Respiratory Exam: NORMAL BREATHING PATTERN. absent: Respiratory Distress - Cardiovascular Exam Cardiovascular Exam: REGULAR RHYTHM. absent: Tachycardia Assessment and Plan - Assessment and Plan (Free Text) Assessment: 21 y/o male w/ Crohn's disease and nitza-rectal abscesses s/p I&D POD7 Plan: -needs GI fu for Crohn's managment -abx per ID recommendation. Keflex po 7-10 days upon d/c -will need home wound care assistance for daily packing changes to surgical site -pain control -no further surgical intervention at this time -further recs per Dr. Taylor AKite PGY1
--- NOTE | 2016-10-30 18:53 | CP.PCM.PN ---
Subjective - Date & Time of Evaluation Date of Evaluation: 10/30/16 Time of Evaluation: 08:00 - Subjective Subjective: await c/s left axilla denies fever / chills alert awake NAD Objective - Vital Signs/Intake and Output Vital Signs (last 24 hours): Temp Pulse Resp BP Pulse Ox 99 F 87 20 105/67 100 10/30/16 15:25 10/30/16 18:12 10/30/16 15:25 10/30/16 15:25 10/30/16 15:25 Intake and Output: 10/30/16 10/30/16 06:59 18:59 Intake Total 170 Output Total 1000 Balance -830 - Medications Medications: Current Medications Acetaminophen (Tylenol 325mg Tab) 650 mg PO Q4 PRN PRN Reason: Pain, Mild (1-3) Diphenhydramine HCl (Benadryl) 25 mg IVP Q2 PRN Stop: 11/04/16 00:01 Last Admin: 10/30/16 16:49 Dose: 25 mg Enoxaparin Sodium (Lovenox) 30 mg SC DAILY [facility] Last Admin: 10/30/16 10:03 Dose: 30 mg Escitalopram Oxalate (Lexapro) 20 mg PO DAILY [facility] Last Admin: 10/30/16 10:15 Dose: 20 mg Gabapentin (Neurontin) 100 mg PO TID [facility] Last Admin: 10/30/16 17:45 Dose: 100 mg Hydromorphone HCl (Dilaudid) 2 mg IVP Q2 PRN PRN Reason: Pain, moderate (4-7) Last Admin: 10/30/16 16:47 Dose: 2 mg Cefazolin Sodium/Dextrose (Ancef Iv 1 Gm Duplex) 50 mls @ 100 mls/hr IVPB Q8H [facility] Last Admin: 10/30/16 10:07 Dose: 100 mls/hr Lactobacillus Acidophilus (Bacid Acidophilus) 1 cap PO BID [facility] Last Admin: 10/30/16 17:45 Dose: 1 cap Magnesium Hydroxide (Milk Of Magnesia) 30 ml PO DAILY PRN PRN Reason: Constipation Pantoprazole Sodium (Protonix Ec Tab) 20 mg PO DAILY [facility] Last Admin: 10/30/16 10:04 Dose: 20 mg Polyethylene Glycol (Miralax) 17 gm PO DAILY [facility] Last Admin: 10/30/16 10:08 Dose: Not Given Trazodone HCl (Desyrel) 50 mg PO HS [facility] Last Admin: 10/29/16 21:37 Dose: 50 mg - Labs Labs: 10/30/16 06:07 10/30/16 06:07 - Constitutional Appears: Non-toxic, Cachectic, Chronically Ill - Head Exam Head Exam: NORMOCEPHALIC - Eye Exam Eye Exam: absent: Scleral icterus - ENT Exam ENT Exam: Mucous Membranes Dry, Normal External Ear Exam - Neck Exam Neck Exam: absent: Lymphadenopathy - Respiratory Exam Respiratory Exam: Decreased Breath Sounds, Clear to Ausculation Bilateral - Cardiovascular Exam Cardiovascular Exam: REGULAR RHYTHM, +S1, +S2 - GI/Abdominal Exam GI & Abdominal Exam: Distended, Soft. absent: Tenderness - Rectal Exam Rectal Exam: Deferred - Exam Exam: NORMAL INSPECTION - Extremities Exam Extremities Exam: absent: Pedal Edema - Back Exam Back Exam: absent: CVA tenderness (L), CVA tenderness (R) Additional comments: wounds noted - Neurological Exam Neurological Exam: Alert, Awake, Oriented x3 - Psychiatric Exam Psychiatric exam: Normal Mood - Skin Skin Exam: Dry Assessment and Plan (1) Abscess Status: Acute (2) Encounter for wound care Status: Acute (3) Intractable abdominal pain Status: Acute (4) Crohn disease Status: Acute
--- NOTE | 2016-10-30 20:21 | CP.PCM.PN ---
Subjective - Date & Time of Evaluation Date of Evaluation: 10/30/16 Time of Evaluation: 08:30 - Subjective Subjective: clinicaly same Objective - Vital Signs/Intake and Output Vital Signs (last 24 hours): Temp Pulse Resp BP Pulse Ox 99 F 87 20 105/67 100 10/30/16 15:25 10/30/16 18:12 10/30/16 15:25 10/30/16 15:25 10/30/16 15:25 - Medications Medications: Current Medications Acetaminophen (Tylenol 325mg Tab) 650 mg PO Q4 PRN PRN Reason: Pain, Mild (1-3) Diphenhydramine HCl (Benadryl) 25 mg IVP Q2 PRN Stop: 11/04/16 00:01 Last Admin: 10/30/16 19:02 Dose: 25 mg Enoxaparin Sodium (Lovenox) 30 mg SC DAILY [facility] Last Admin: 10/30/16 10:03 Dose: 30 mg Escitalopram Oxalate (Lexapro) 20 mg PO DAILY [facility] Last Admin: 10/30/16 10:15 Dose: 20 mg Gabapentin (Neurontin) 100 mg PO TID [facility] Last Admin: 10/30/16 17:45 Dose: 100 mg Hydromorphone HCl (Dilaudid) 2 mg IVP Q2 PRN PRN Reason: Pain, moderate (4-7) Last Admin: 10/30/16 19:02 Dose: 2 mg Cefazolin Sodium/Dextrose (Ancef Iv 1 Gm Duplex) 50 mls @ 100 mls/hr IVPB Q8H [facility] Last Admin: 10/30/16 19:12 Dose: 100 mls/hr Lactobacillus Acidophilus (Bacid Acidophilus) 1 cap PO BID [facility] Last Admin: 10/30/16 17:45 Dose: 1 cap Magnesium Hydroxide (Milk Of Magnesia) 30 ml PO DAILY PRN PRN Reason: Constipation Pantoprazole Sodium (Protonix Ec Tab) 20 mg PO DAILY [facility] Last Admin: 10/30/16 10:04 Dose: 20 mg Polyethylene Glycol (Miralax) 17 gm PO DAILY [facility] Last Admin: 10/30/16 10:08 Dose: Not Given Trazodone HCl (Desyrel) 50 mg PO HS [facility] Last Admin: 10/29/16 21:37 Dose: 50 mg - Labs Labs: 10/30/16 06:10/30/16 06:07 Assessment and Plan - Assessment and Plan (Free Text) Plan: spoke to tpt underarm doesnot need to surgery pt remians same iv antibiotic discharge planning
[2016-10-31] MEDS: ceFAZolin IV 1 gm in Dextrose 50 ML IVPB SCH ×3 (03:02→19:00)
[2016-10-31] MEDS: DiphenhydrAMINE 50 mg/ml Inj IVP PRN ×11 (03:02→22:54)
[2016-10-31 08:30] LABS: BASO # 0.1 K/uL (0.0-0.2); BASO % 0.9 % (0.0-2.0); EOS # 0.7 K/uL (0.0-0.7); EOS % 7.2 % (0.0-4.0); HEMATOCRIT 28.1 % (35.0-51.0); LYMPH # 3.2 K/uL (1.0-4.3); LYMPH % 34.1 % (20.0-40.0); MEAN CELL VOLUME 66.1 fL (80.0-94.0); MEAN CORPUSCULAR HEMOGLOBIN 21.1 pg (27.0-31.0); MEAN CORPUSCULAR HGB CONC 31.9 g/dL (33.0-37.0); MEAN PLATELET VOLUME 7.5 fL (7.2-11.7); MONO # 0.6 K/uL (0.0-0.8); MONO % 6.2 % (0.0-10.0); NRBC % 0.1 % (0.0-2.0); WHITE BLOOD COUNT 9.4 K/uL (4.8-10.8)
[2016-10-31 08:58] LABS: CHLORIDE 94 mmol/L (98-107); POTASSIUM 3.9 mmol/L (3.6-5.2); SODIUM 140 mmol/L (132-148)
[2016-10-31 09:00] LABS: AST/SGOT 27 U/L (17-59); BILIRUBIN,TOTAL 0.2 mg/dL (0.2-1.3); BLOOD UREA NITROGEN 5 mg/dL (9-20); CARBON DIOXIDE 32 mmol/L (22-30); GFR AFRICAN-AMERICAN > 60; TOTAL PROTEIN 7.6 g/dL (6.3-8.3)
[2016-10-31 09:01] LABS: ALKALINE PHOSPHATASE 124 U/L (38-126); ALT/SGPT 16 U/L (21-72); CALCIUM 9.3 mg/dl (8.6-10.4); GLUCOSE,RANDOM 81 mg/dL (75-110)
[2016-10-31 09:04] LABS: ALB/GLOB RATIO 0.9 (1.0-2.1)
[2016-10-31] MEDS: Pantoprazole 20 mg EC Tab PO SCH (09:49)
[2016-10-31] MEDS: Lactobacillus Acidophilus 500 MU Cap PO SCH ×2 (09:49→17:20)
[2016-10-31] MEDS: Enoxaparin 30 mg Syringe SC SCH (09:50)
[2016-10-31] MEDS: POLYETHYLENE GLYCOL 3350 17 GM/Dose PACKET PO SCH (11:18)
--- NOTE | 2016-10-31 13:35 | CP.PCM.PN ---
Subjective - Date & Time of Evaluation Date of Evaluation: 10/31/16 Time of Evaluation: 07:45 - Subjective Subjective: Medicine Progress Note- Dr. Shiloh Barrett's Service: Patient seen and examined at bedside this AM. Admits to pain in nitza-rectal wound area. Patient is POD#8 s/p I&D of nitza-rectal abscess. Denies chest pain, SOB, nausea, vomiting, fevers, chills this AM. He reports wound care has been seeing him. Admits to poor appetite. Objective - Vital Signs/Intake and Output Vital Signs (last 24 hours): Temp Pulse Resp BP Pulse Ox 98.2 F 87 20 98/68 L 97 10/31/16 08:20 10/31/16 08:20 10/31/16 08:20 10/31/16 08:20 10/31/16 08:20 Intake and Output: 10/31/16 10/31/16 06:59 18:59 Intake Total 250 Output Total 550 Balance -300 - Medications Medications: Current Medications Acetaminophen (Tylenol 325mg Tab) 650 mg PO Q4 PRN PRN Reason: Pain, Mild (1-3) Diphenhydramine HCl (Benadryl) 25 mg IVP Q2 PRN Stop: 11/04/16 00:01 Last Admin: 10/31/16 11:58 Dose: 25 mg Escitalopram Oxalate (Lexapro) 20 mg PO DAILY [facility] Last Admin: 10/31/16 09:49 Dose: 20 mg Gabapentin (Neurontin) 100 mg PO TID [facility] Last Admin: 10/31/16 09:49 Dose: 100 mg Hydromorphone HCl (Dilaudid) 2 mg IVP Q2 PRN PRN Reason: Pain, moderate (4-7) Last Admin: 10/31/16 11:59 Dose: 2 mg Cefazolin Sodium/Dextrose (Ancef Iv 1 Gm Duplex) 50 mls @ 100 mls/hr IVPB Q8H [facility] Last Admin: 10/31/16 10:00 Dose: 100 mls/hr Lactobacillus Acidophilus (Bacid Acidophilus) 1 cap PO BID [facility] Last Admin: 10/31/16 09:49 Dose: 1 cap Magnesium Hydroxide (Milk Of Magnesia) 30 ml PO DAILY PRN PRN Reason: Constipation Pantoprazole Sodium (Protonix Ec Tab) 20 mg PO DAILY [facility] Last Admin: 10/31/16 09:49 Dose: 20 mg Polyethylene Glycol (Miralax) 17 gm PO DAILY [facility] Last Admin: 10/31/16 11:18 Dose: Not Given Trazodone HCl (Desyrel) 50 mg PO HS [facility] Last Admin: 10/30/16 21:26 Dose: 50 mg - Labs Labs: 10/31/16 08:24 10/31/16 08:24 - Constitutional Appears: No Acute Distress - Head Exam Head Exam: NORMAL INSPECTION, NORMOCEPHALIC - Eye Exam Eye Exam: EOMI, Normal appearance - ENT Exam ENT Exam: Mucous Membranes Moist - Neck Exam Neck Exam: Full ROM, Normal Inspection - Respiratory Exam Respiratory Exam: Clear to Ausculation Bilateral, NORMAL BREATHING PATTERN - Cardiovascular Exam Cardiovascular Exam: REGULAR RHYTHM, +S1, +S2 - GI/Abdominal Exam GI & Abdominal Exam: Soft. absent: Distended, Tenderness - Extremities Exam Extremities Exam: Normal Inspection. absent: Pedal Edema - Neurological Exam Neurological Exam: Alert, Awake, Oriented x3 - Psychiatric Exam Psychiatric exam: Flat Affect, Normal Mood Assessment and Plan - Assessment and Plan (Free Text) Assessment: Perirectal Abscess POD#8 I&D of abscess with surgeon Dr. Taylor. Wound care nurse referral. ID Dr. Xavier consulted. Wound culture Klebsiella pneumonia sensitive for Ancef. Ancef 1g IV q8H started 10/22/16 As per surgery team, patient will need Keflex po 7-10 days upon discharge. Dilaudid 2mg IV q2H PRN. Lactobacillus Acidophilus - 1 cap PO BID Patient will need daily wound care at home upon discharge. Intractable Abdominal Pain Patient with Crohn's disease. Consult GI- Dr. Lopez- help appreciated. As per GI, okay to discharge home from GI perspective s/p partial colectomy revision on 10/14/16 Dilaudid 2 mg IVP Q2h PRN Benadryl 25mg IVP Q2h PRN Toradol 10mg PO Q8h PRN Tylenol 650mg PO Q4h PRN Depression Psych consult placed- Dr. Persaud-help appreciated Continue Lexapro 20mg Trazodone 50 mg Neurontin 100 mg PO TID Supportive therapy CBT Prophylaxis Protonix 20mg PO daily Lovenox 30mg SC Daily on hold SCDs Management as per Dr. Shiloh Barrett.
--- NOTE | 2016-10-31 15:52 | CP.PCM.PN ---
Subjective - Date & Time of Evaluation Date of Evaluation: 10/31/16 Time of Evaluation: 09:00 - Subjective Subjective: afebrile wound care in progress iv rx infusing no new cultures Objective - Vital Signs/Intake and Output Vital Signs (last 24 hours): Temp Pulse Resp BP Pulse Ox 98.2 F 87 20 98/68 L 97 10/31/16 08:20 10/31/16 09:00 10/31/16 08:20 10/31/16 08:20 10/31/16 08:20 Intake and Output: 10/31/16 10/31/16 06:59 18:59 Intake Total 250 Output Total 550 Balance -300 - Medications Medications: Current Medications Acetaminophen (Tylenol 325mg Tab) 650 mg PO Q4 PRN PRN Reason: Pain, Mild (1-3) Diphenhydramine HCl (Benadryl) 25 mg IVP Q2 PRN Stop: 11/04/16 00:01 Last Admin: 10/31/16 13:56 Dose: 25 mg Escitalopram Oxalate (Lexapro) 20 mg PO DAILY [facility] Last Admin: 10/31/16 09:49 Dose: 20 mg Gabapentin (Neurontin) 100 mg PO TID [facility] Last Admin: 10/31/16 13:56 Dose: 100 mg Hydromorphone HCl (Dilaudid) 2 mg IVP Q2 PRN PRN Reason: Pain, moderate (4-7) Last Admin: 10/31/16 13:56 Dose: 2 mg Cefazolin Sodium/Dextrose (Ancef Iv 1 Gm Duplex) 50 mls @ 100 mls/hr IVPB Q8H [facility] Last Admin: 10/31/16 10:00 Dose: 100 mls/hr Lactobacillus Acidophilus (Bacid Acidophilus) 1 cap PO BID [facility] Last Admin: 10/31/16 09:49 Dose: 1 cap Magnesium Hydroxide (Milk Of Magnesia) 30 ml PO DAILY PRN PRN Reason: Constipation Pantoprazole Sodium (Protonix Ec Tab) 20 mg PO DAILY [facility] Last Admin: 10/31/16 09:49 Dose: 20 mg Polyethylene Glycol (Miralax) 17 gm PO DAILY [facility] Last Admin: 10/31/16 11:18 Dose: Not Given Trazodone HCl (Desyrel) 50 mg PO HS [facility] Last Admin: 10/30/16 21:26 Dose: 50 mg - Labs Labs: 10/31/16 08:24 10/31/16 08:24 - Constitutional Appears: Non-toxic, Chronically Ill - Head Exam Head Exam: NORMOCEPHALIC - Eye Exam Eye Exam: PERRL. absent: Scleral icterus - ENT Exam ENT Exam: Mucous Membranes Dry - Neck Exam Neck Exam: absent: Lymphadenopathy - Respiratory Exam Respiratory Exam: Decreased Breath Sounds, Clear to Ausculation Bilateral - Cardiovascular Exam Cardiovascular Exam: REGULAR RHYTHM, +S1, +S2 - GI/Abdominal Exam GI & Abdominal Exam: Distended, Soft Assessment and Plan (1) Abscess Status: Acute (2) Encounter for wound care Status: Acute (3) Intractable abdominal pain Status: Acute (4) Crohn disease Status: Acute
--- NOTE | 2016-10-31 18:10 | CP.PCM.PN ---
Subjective - Date & Time of Evaluation Date of Evaluation: 10/31/16 Time of Evaluation: 09:20 - Subjective Subjective: clinically same Objective - Vital Signs/Intake and Output Vital Signs (last 24 hours): Temp Pulse Resp BP Pulse Ox 98 F 87 20 113/76 97 10/31/16 15:05 10/31/16 16:39 10/31/16 15:05 10/31/16 15:05 10/31/16 15:05 Intake and Output: 10/31/16 10/31/16 06:59 18:59 Intake Total 250 Output Total 550 Balance -300 - Medications Medications: Current Medications Acetaminophen (Tylenol 325mg Tab) 650 mg PO Q4 PRN PRN Reason: Pain, Mild (1-3) Diphenhydramine HCl (Benadryl) 25 mg IVP Q2 PRN Stop: 11/04/16 00:01 Last Admin: 10/31/16 16:21 Dose: 25 mg Escitalopram Oxalate (Lexapro) 20 mg PO DAILY [facility] Last Admin: 10/31/16 09:49 Dose: 20 mg Gabapentin (Neurontin) 100 mg PO TID [facility] Last Admin: 10/31/16 17:20 Dose: 100 mg Hydromorphone HCl (Dilaudid) 2 mg IVP Q2 PRN PRN Reason: Pain, moderate (4-7) Last Admin: 10/31/16 16:22 Dose: 2 mg Cefazolin Sodium/Dextrose (Ancef Iv 1 Gm Duplex) 50 mls @ 100 mls/hr IVPB Q8H [facility] Last Admin: 10/31/16 10:00 Dose: 100 mls/hr Lactobacillus Acidophilus (Bacid Acidophilus) 1 cap PO BID [facility] Last Admin: 10/31/16 17:20 Dose: 1 cap Magnesium Hydroxide (Milk Of Magnesia) 30 ml PO DAILY PRN PRN Reason: Constipation Pantoprazole Sodium (Protonix Ec Tab) 20 mg PO DAILY [facility] Last Admin: 10/31/16 09:49 Dose: 20 mg Polyethylene Glycol (Miralax) 17 gm PO DAILY [facility] Last Admin: 10/31/16 11:18 Dose: Not Given Trazodone HCl (Desyrel) 50 mg PO HS [facility] Last Admin: 10/30/16 21:26 Dose: 50 mg - Labs Labs: 10/31/16 08:24 10/31/16 08:24 - Constitutional Appears: Well - Head Exam Head Exam: ATRAUMATIC, NORMAL INSPECTION, NORMOCEPHALIC - Eye Exam Eye Exam: EOMI, Normal appearance, PERRL Pupil Exam: NORMAL ACCOMODATION, PERRL - ENT Exam ENT Exam: Mucous Membranes Moist, Normal Exam - Neck Exam Neck Exam: Full ROM, Normal Inspection. absent: Lymphadenopathy - Respiratory Exam Respiratory Exam: Decreased Breath Sounds - Cardiovascular Exam Cardiovascular Exam: REGULAR RHYTHM, +S1, +S2 - GI/Abdominal Exam GI & Abdominal Exam: Soft, Diminished Bowel Sounds - Rectal Exam Rectal Exam: Deferred
[2016-11-01] MEDS: DiphenhydrAMINE 50 mg/ml Inj IVP PRN ×10 (00:55→21:33)
[2016-11-01] MEDS: ceFAZolin IV 1 gm in Dextrose 50 ML IVPB SCH ×3 (03:03→19:00)
[2016-11-01] MEDS: Pantoprazole 20 mg EC Tab PO SCH (09:25)
[2016-11-01] MEDS: Lactobacillus Acidophilus 500 MU Cap PO SCH ×2 (09:25→17:42)
[2016-11-01] MEDS: POLYETHYLENE GLYCOL 3350 17 GM/Dose PACKET PO SCH (10:00)
--- NOTE | 2016-11-01 14:23 | CP.PCM.PN ---
Subjective - Date & Time of Evaluation Date of Evaluation: 11/01/16 Time of Evaluation: 09:00 - Subjective Subjective: clinically same Objective - Vital Signs/Intake and Output Vital Signs (last 24 hours): Temp Pulse Resp BP Pulse Ox 97.9 F 89 20 104/69 95 11/01/16 08:00 11/01/16 08:00 11/01/16 08:00 11/01/16 08:00 11/01/16 08:00 Intake and Output: 11/01/16 11/01/16 06:59 18:59 Intake Total 170 Output Total 600 Balance -430 - Medications Medications: Current Medications Acetaminophen (Tylenol 325mg Tab) 650 mg PO Q4 PRN PRN Reason: Pain, Mild (1-3) Diphenhydramine HCl (Benadryl) 25 mg IVP Q2 PRN Stop: 11/04/16 00:01 Last Admin: 11/01/16 13:40 Dose: 25 mg Escitalopram Oxalate (Lexapro) 20 mg PO DAILY REPLACED BY [facility] Last Admin: 11/01/16 09:25 Dose: 20 mg Gabapentin (Neurontin) 100 mg PO TID REPLACED BY [facility] Last Admin: 11/01/16 13:46 Dose: 100 mg Hydromorphone HCl (Dilaudid) 2 mg IVP Q2 PRN PRN Reason: Pain, moderate (4-7) Last Admin: 11/01/16 13:42 Dose: 2 mg Cefazolin Sodium/Dextrose (Ancef Iv 1 Gm Duplex) 50 mls @ 100 mls/hr IVPB Q8H REPLACED BY [facility] Last Admin: 11/01/16 11:26 Dose: 100 mls/hr Lactobacillus Acidophilus (Bacid Acidophilus) 1 cap PO BID REPLACED BY [facility] Last Admin: 11/01/16 09:25 Dose: 1 cap Magnesium Hydroxide (Milk Of Magnesia) 30 ml PO DAILY PRN PRN Reason: Constipation Pantoprazole Sodium (Protonix Ec Tab) 20 mg PO DAILY REPLACED BY [facility] Last Admin: 11/01/16 09:25 Dose: 20 mg Polyethylene Glycol (Miralax) 17 gm PO DAILY REPLACED BY [facility] Last Admin: 11/01/16 10:00 Dose: Not Given Trazodone HCl (Desyrel) 50 mg PO HS REPLACED BY [facility] Last Admin: 10/31/16 21:57 Dose: 50 mg - Labs Labs: 10/31/16 08:10/31/16 08:24 - Constitutional Appears: Well - Head Exam Head Exam: ATRAUMATIC, NORMAL INSPECTION, NORMOCEPHALIC - Eye Exam Eye Exam: EOMI, Normal appearance, PERRL Pupil Exam: NORMAL ACCOMODATION, PERRL - ENT Exam ENT Exam: Mucous Membranes Moist, Normal Exam - Neck Exam Neck Exam: Full ROM, Normal Inspection. absent: Lymphadenopathy - Respiratory Exam Respiratory Exam: Decreased Breath Sounds - Cardiovascular Exam Cardiovascular Exam: REGULAR RHYTHM, +S1, +S2 - GI/Abdominal Exam GI & Abdominal Exam: Soft, Diminished Bowel Sounds - Rectal Exam Rectal Exam: Deferred
[2016-11-02] MEDS: DiphenhydrAMINE 50 mg/ml Inj IVP PRN ×10 (00:27→23:07)
[2016-11-02] MEDS: ceFAZolin IV 1 gm in Dextrose 50 ML IVPB SCH ×3 (03:19→18:19)
[2016-11-02] MEDS: POLYETHYLENE GLYCOL 3350 17 GM/Dose PACKET PO SCH (11:15)
[2016-11-02] MEDS: Lactobacillus Acidophilus 500 MU Cap PO SCH ×2 (11:15→18:15)
[2016-11-02] MEDS: Pantoprazole 20 mg EC Tab PO SCH (11:16)
--- NOTE | 2016-11-02 14:59 | CP.PCM.PN ---
Subjective - Date & Time of Evaluation Date of Evaluation: 11/02/16 Time of Evaluation: 09:00 - Subjective Subjective: wounds improving slowly rx in progress Objective - Vital Signs/Intake and Output Vital Signs (last 24 hours): Temp Pulse Resp BP Pulse Ox 97.8 F 93 H 20 118/79 99 11/02/16 08:29 11/02/16 08:29 11/02/16 08:29 11/02/16 08:29 11/02/16 08:29 Intake and Output: 11/02/16 11/02/16 06:59 18:59 Intake Total Output Total Balance - Medications Medications: Current Medications Acetaminophen (Tylenol 325mg Tab) 650 mg PO Q4 PRN PRN Reason: Pain, Mild (1-3) Diphenhydramine HCl (Benadryl) 25 mg IVP Q2 PRN Stop: 11/04/16 00:01 Last Admin: 11/02/16 14:13 Dose: 25 mg Escitalopram Oxalate (Lexapro) 20 mg PO DAILY [facility] Last Admin: 11/02/16 11:16 Dose: 20 mg Gabapentin (Neurontin) 100 mg PO TID [facility] Last Admin: 11/02/16 14:13 Dose: 100 mg Hydromorphone HCl (Dilaudid) 2 mg IVP Q2 PRN PRN Reason: Pain, moderate (4-7) Last Admin: 11/02/16 14:12 Dose: 2 mg Cefazolin Sodium/Dextrose (Ancef Iv 1 Gm Duplex) 50 mls @ 100 mls/hr IVPB Q8H [facility] Last Admin: 11/02/16 11:14 Dose: 100 mls/hr Lactobacillus Acidophilus (Bacid Acidophilus) 1 cap PO BID [facility] Last Admin: 11/02/16 11:15 Dose: 1 cap Magnesium Hydroxide (Milk Of Magnesia) 30 ml PO DAILY PRN PRN Reason: Constipation Pantoprazole Sodium (Protonix Ec Tab) 20 mg PO DAILY [facility] Last Admin: 11/02/16 11:16 Dose: 20 mg Polyethylene Glycol (Miralax) 17 gm PO DAILY [facility] Last Admin: 11/02/16 11:15 Dose: Not Given Trazodone HCl (Desyrel) 50 mg PO HS [facility] Last Admin: 11/01/16 22:00 Dose: 50 mg - Labs Labs: 10/31/16 08:24 10/31/16 08:24 - Constitutional Appears: Non-toxic, Cachectic, Chronically Ill - Head Exam Head Exam: NORMOCEPHALIC - Eye Exam Eye Exam: PERRL. absent: Scleral icterus - ENT Exam ENT Exam: Mucous Membranes Dry, Normal External Ear Exam - Neck Exam Neck Exam: absent: Lymphadenopathy, Thyromegaly - Respiratory Exam Respiratory Exam: Decreased Breath Sounds, Clear to Ausculation Bilateral - Cardiovascular Exam Cardiovascular Exam: REGULAR RHYTHM, +S1, +S2 - GI/Abdominal Exam GI & Abdominal Exam: Distended, Soft. absent: Tenderness - Rectal Exam Rectal Exam: Deferred - Exam Exam: NORMAL INSPECTION - Extremities Exam Extremities Exam: absent: Pedal Edema - Back Exam Back Exam: absent: CVA tenderness (L), CVA tenderness (R) - Neurological Exam Neurological Exam: Alert, Awake, Oriented x3 - Psychiatric Exam Psychiatric exam: Normal Mood - Skin Skin Exam: Dry Assessment and Plan (1) Abscess Status: Acute (2) Encounter for wound care Status: Acute (3) Intractable abdominal pain Status: Acute (4) Crohn disease Status: Acute
--- NOTE | 2016-11-02 16:56 | CP.PCM.PN ---
Subjective - Date & Time of Evaluation Date of Evaluation: 11/02/16 Time of Evaluation: 09:00 Objective - Vital Signs/Intake and Output Vital Signs (last 24 hours): Temp Pulse Resp BP Pulse Ox 97.8 F 93 H 20 118/79 99 11/02/16 08:29 11/02/16 08:29 11/02/16 08:29 11/02/16 08:29 11/02/16 08:29 Intake and Output: 11/02/16 11/02/16 06:59 18:59 Intake Total 500 Output Total 750 Balance -250 - Medications Medications: Current Medications Acetaminophen (Tylenol 325mg Tab) 650 mg PO Q4 PRN PRN Reason: Pain, Mild (1-3) Diphenhydramine HCl (Benadryl) 25 mg IVP Q2 PRN Stop: 11/04/16 00:01 Last Admin: 11/02/16 16:29 Dose: 25 mg Escitalopram Oxalate (Lexapro) 20 mg PO DAILY [facility] Last Admin: 11/02/16 11:16 Dose: 20 mg Gabapentin (Neurontin) 100 mg PO TID [facility] Last Admin: 11/02/16 14:13 Dose: 100 mg Hydromorphone HCl (Dilaudid) 2 mg IVP Q2 PRN PRN Reason: Pain, moderate (4-7) Last Admin: 11/02/16 16:26 Dose: 2 mg Cefazolin Sodium/Dextrose (Ancef Iv 1 Gm Duplex) 50 mls @ 100 mls/hr IVPB Q8H [facility] Last Admin: 11/02/16 11:14 Dose: 100 mls/hr Lactobacillus Acidophilus (Bacid Acidophilus) 1 cap PO BID [facility] Last Admin: 11/02/16 11:15 Dose: 1 cap Magnesium Hydroxide (Milk Of Magnesia) 30 ml PO DAILY PRN PRN Reason: Constipation Pantoprazole Sodium (Protonix Ec Tab) 20 mg PO DAILY [facility] Last Admin: 11/02/16 11:16 Dose: 20 mg Polyethylene Glycol (Miralax) 17 gm PO DAILY [facility] Last Admin: 11/02/16 11:15 Dose: Not Given Trazodone HCl (Desyrel) 50 mg PO HS [facility] Last Admin: 11/01/16 22:00 Dose: 50 mg - Labs Labs: 10/31/16 08:24 10/31/16 08:24
[2016-11-03] MEDS: DiphenhydrAMINE 50 mg/ml Inj IVP PRN ×11 (01:08→22:56)
[2016-11-03] MEDS: ceFAZolin IV 1 gm in Dextrose 50 ML IVPB SCH ×3 (03:17→18:10)
[2016-11-03 08:16] LABS: BASO # 0.1 K/uL (0.0-0.2); EOS # 0.6 K/uL (0.0-0.7); EOS % 6.2 % (0.0-4.0); HEMATOCRIT 28.1 % (35.0-51.0); LYMPH # 2.9 K/uL (1.0-4.3); LYMPH % 27.8 % (20.0-40.0); MEAN CELL VOLUME 66.1 fL (80.0-94.0); MEAN CORPUSCULAR HEMOGLOBIN 21.1 pg (27.0-31.0); MEAN CORPUSCULAR HGB CONC 31.9 g/dL (33.0-37.0); MEAN PLATELET VOLUME 7.9 fL (7.2-11.7); MONO # 0.7 K/uL (0.0-0.8); MONO % 6.3 % (0.0-10.0); NRBC % 0.1 % (0.0-2.0); RED CELL DISTRIBUTION WIDTH 15.8 % (11.5-14.5); WHITE BLOOD COUNT 10.5 K/uL (4.8-10.8)
[2016-11-03 08:25] LABS: CHLORIDE 91 mmol/L (98-107)
[2016-11-03 08:26] LABS: POTASSIUM 3.6 mmol/L (3.6-5.2); SODIUM 137 mmol/L (132-148)
[2016-11-03 08:28] LABS: CARBON DIOXIDE 33 mmol/L (22-30); GFR AFRICAN-AMERICAN > 60
[2016-11-03 08:29] LABS: ALB/GLOB RATIO 0.9 (1.0-2.1); ALKALINE PHOSPHATASE 106 U/L (38-126); AST/SGOT 20 U/L (17-59); BILIRUBIN,TOTAL 0.1 mg/dL (0.2-1.3); BLOOD UREA NITROGEN 7 mg/dL (9-20); CALCIUM 8.7 mg/dl (8.6-10.4); GLUCOSE,RANDOM 102 mg/dL (75-110); TOTAL PROTEIN 7.3 g/dL (6.3-8.3)
--- NOTE | 2016-11-03 08:42 | CP.PCM.PN ---
<AngelRita Blair - Last Filed: 11/03/16 08:34> Subjective - Date & Time of Evaluation Date of Evaluation: 11/03/16 Time of Evaluation: 07:45 - Subjective Subjective: PGY2 Medicine Note - Dr. Eric Barrett's service: Patient seen and examined at bedside this AM. Patient reports mild rectal pain and dull abdominal pain associated with intermittent constipation. Patient says milk of magnesia and miralax have been helping him have bowel movements. Patient reports burning epigastric pain radiating into his chest associated with acid reflux. Patient denies SOB, diaphoresis, dysuria, nausea, vomiting. Objective - Vital Signs/Intake and Output Vital Signs (last 24 hours): Temp Pulse Resp BP Pulse Ox 98.3 F 95 H 20 109/75 94 L 11/02/16 15:00 11/02/16 16:10 11/02/16 15:00 11/02/16 15:00 11/02/16 15:00 Intake and Output: 11/03/16 11/03/16 06:59 18:59 Intake Total 290 Output Total 1150 Balance -860 - Medications Medications: Current Medications Diphenhydramine HCl (Benadryl) 25 mg IVP Q2 PRN Stop: 11/04/16 00:01 Last Admin: 11/03/16 08:28 Dose: 25 mg Escitalopram Oxalate (Lexapro) 20 mg PO DAILY [facility] Last Admin: 11/02/16 11:16 Dose: 20 mg Gabapentin (Neurontin) 100 mg PO TID [facility] Last Admin: 11/02/16 18:16 Dose: 100 mg Hydromorphone HCl (Dilaudid) 2 mg IVP Q2 PRN PRN Reason: Pain, moderate (4-7) Last Admin: 11/03/16 08:27 Dose: 2 mg Cefazolin Sodium/Dextrose (Ancef Iv 1 Gm Duplex) 50 mls @ 100 mls/hr IVPB Q8H [facility] Last Admin: 11/03/16 03:17 Dose: 100 mls/hr Lactobacillus Acidophilus (Bacid Acidophilus) 1 cap PO BID [facility] Last Admin: 11/02/16 18:15 Dose: 1 cap Pantoprazole Sodium (Protonix Ec Tab) 40 mg PO DAILY [facility] Polyethylene Glycol (Miralax) 17 gm PO DAILY [facility] Last Admin: 11/02/16 11:15 Dose: Not Given Trazodone HCl (Desyrel) 50 mg PO HS [facility] Last Admin: 11/02/16 21:05 Dose: 50 mg - Labs Labs: 11/03/16 07:30 10/31/16 08:24 - Constitutional Appears: Non-toxic, No Acute Distress - Head Exam Head Exam: NORMAL INSPECTION - Eye Exam Eye Exam: EOMI - ENT Exam ENT Exam: Mucous Membranes Moist - Respiratory Exam Respiratory Exam: Clear to Ausculation Bilateral, NORMAL BREATHING PATTERN. absent: Rales, Rhonchi, Wheezes - Cardiovascular Exam Cardiovascular Exam: REGULAR RHYTHM, +S1, +S2. absent: Gallop, Rubs, Murmur - GI/Abdominal Exam GI & Abdominal Exam: Soft, Tenderness, Normal Bowel Sounds. absent: Distended, Firm - Extremities Exam Extremities Exam: Normal Capillary Refill. absent: Pedal Edema - Neurological Exam Neurological Exam: Alert, Oriented x3 - Psychiatric Exam Psychiatric exam: Normal Affect, Normal Mood - Skin Skin Exam: Normal Color, Warm Assessment and Plan - Assessment and Plan (Free Text) Assessment: Perirectal Abscess POD#11 I&D of abscess with surgeon Dr. Taylor. Wound care nurse referral. ID Dr. Xavier consulted. Wound culture Klebsiella pneumonia sensitive for Ancef. Ancef 1g IV q8H started 10/22/16 As per surgery team, patient will need Keflex po 7-10 days upon discharge. Dilaudid 2mg IV q2H PRN. Lactobacillus Acidophilus - 1 cap PO BID Patient will need daily wound care at home upon discharge. Patient says he is waiting to see a plastic surgeon to do skin grafts on his wounds. Intractable Abdominal Pain Patient with Crohn's disease. Consult GI- Dr. Lopez- help appreciated. As per GI, okay to discharge home from GI perspective s/p partial colectomy revision on 10/14/16 Dilaudid 2 mg IVP Q2h PRN Benadryl 25mg IVP Q2h PRN Toradol 10mg PO Q8h PRN Tylenol 650mg PO Q4h PRN Depression Psych consult placed- Dr. Persaud-help appreciated Continue Lexapro 20mg Trazodone 50 mg Neurontin 100 mg PO TID Supportive therapy CBT Prophylaxis Increased protonix 20mg to Protonix 40mg PO daily for GERD symptoms Lovenox 30mg SC Daily on hold. Patient is ambulating. SCDs Management as per Dr. Shiloh Barrett. <ArnoldRoxygelalaurynvernóica S - Last Filed: 11/03/16 16:58> Objective - Vital Signs/Intake and Output Vital Signs (last 24 hours): Temp Pulse Resp BP Pulse Ox 98.5 F 101 H 20 102/69 98 11/03/16 15:00 11/03/16 15:00 11/03/16 15:00 11/03/16 15:00 11/03/16 15:00 Intake and Output: 11/03/16 11/03/16 06:59 18:59 Intake Total 290 150 Output Total 1150 100 Balance -860 50 - Medications Medications: Current Medications Diphenhydramine HCl (Benadryl) 25 mg IVP Q2 PRN Stop: 11/04/16 00:01 Last Admin: 11/03/16 15:02 Dose: 25 mg Gabapentin (Neurontin) 100 mg PO TID [facility] Last Admin: 11/03/16 14:25 Dose: 100 mg Hydromorphone HCl (Dilaudid) 2 mg IVP Q2 PRN PRN Reason: Pain, moderate (4-7) Last Admin: 11/03/16 15:03 Dose: 2 mg Cefazolin Sodium/Dextrose (Ancef Iv 1 Gm Duplex) 50 mls @ 100 mls/hr IVPB Q8H [facility] Last Admin: 11/03/16 10:49 Dose: 100 mls/hr Pantoprazole Sodium (Protonix Ec Tab) 40 mg PO DAILY [facility] Last Admin: 11/03/16 10:39 Dose: 40 mg Polyethylene Glycol (Miralax) 17 gm PO DAILY [facility] Last Admin: 11/03/16 10:42 Dose: Not Given Trazodone HCl (Desyrel) 50 mg PO HS [facility] Last Admin: 11/02/16 21:05 Dose: 50 mg - Labs Labs: 11/03/16 07:30 11/03/16 07:30 Attending/Attestation - Attestation I have personally seen and examined this patient.: Yes I have fully participated in the care of the patient.: Yes I have reviewed all pertinent clinical information, including history, physical exam and plan: Yes Notes (Text): 11/03/16 16:58 case sen and discusse dith staff and resident
[2016-11-03 08:48] LABS: ALT/SGPT 12 U/L (21-72)
[2016-11-03] MEDS: Pantoprazole 40 mg EC Tab PO SCH (10:39)
[2016-11-03] MEDS: Lactobacillus Acidophilus 500 MU Cap PO SCH (10:40)
[2016-11-03] MEDS: POLYETHYLENE GLYCOL 3350 17 GM/Dose PACKET PO SCH (10:42)
--- NOTE | 2016-11-03 14:17 | CP.PCM.PN ---
Subjective - Date & Time of Evaluation Date of Evaluation: 11/03/16 Time of Evaluation: 09:00 - Subjective Subjective: clinically same Objective - Vital Signs/Intake and Output Vital Signs (last 24 hours): Temp Pulse Resp BP Pulse Ox 98.4 F 84 20 110/78 96 11/03/16 07:00 11/03/16 07:00 11/03/16 07:00 11/03/16 07:00 11/03/16 07:00 Intake and Output: 11/03/16 11/03/16 06:59 18:59 Intake Total 290 Output Total 1150 Balance -860 - Medications Medications: Current Medications Diphenhydramine HCl (Benadryl) 25 mg IVP Q2 PRN Stop: 11/04/16 00:01 Last Admin: 11/03/16 12:49 Dose: 25 mg Gabapentin (Neurontin) 100 mg PO TID [facility] Hydromorphone HCl (Dilaudid) 2 mg IVP Q2 PRN PRN Reason: Pain, moderate (4-7) Last Admin: 11/03/16 12:55 Dose: 2 mg Cefazolin Sodium/Dextrose (Ancef Iv 1 Gm Duplex) 50 mls @ 100 mls/hr IVPB Q8H [facility] Last Admin: 11/03/16 10:49 Dose: 100 mls/hr Pantoprazole Sodium (Protonix Ec Tab) 40 mg PO DAILY [facility] Last Admin: 11/03/16 10:39 Dose: 40 mg Polyethylene Glycol (Miralax) 17 gm PO DAILY [facility] Last Admin: 11/03/16 10:42 Dose: Not Given Trazodone HCl (Desyrel) 50 mg PO HS [facility] [place] Last Admin: 11/02/16 21:05 Dose: 50 mg - Labs Labs: 11/03/16 07:30 11/03/16 07:30 - Constitutional Appears: Well - Head Exam Head Exam: ATRAUMATIC, NORMAL INSPECTION, NORMOCEPHALIC - Eye Exam Eye Exam: EOMI, Normal appearance, PERRL Pupil Exam: NORMAL ACCOMODATION, PERRL - ENT Exam ENT Exam: Mucous Membranes Moist, Normal Exam - Neck Exam Neck Exam: Full ROM, Normal Inspection. absent: Lymphadenopathy - Respiratory Exam Respiratory Exam: Decreased Breath Sounds - Cardiovascular Exam Cardiovascular Exam: REGULAR RHYTHM, +S1, +S2 - GI/Abdominal Exam GI & Abdominal Exam: Soft, Diminished Bowel Sounds - Rectal Exam Rectal Exam: Deferred Assessment and Plan - Assessment and Plan (Free Text) Plan: clinically same pt needs to be seen by plastic surg before discharge still has pain vick on walking
[2016-11-04] MEDS: DiphenhydrAMINE 50 mg/ml Inj IVP PRN ×10 (01:00→22:34)
[2016-11-04] MEDS: ceFAZolin IV 1 gm in Dextrose 50 ML IVPB SCH ×3 (03:08→18:32)
--- NOTE | 2016-11-04 09:08 | CP.PCM.PN ---
<CorneliusElan Blair - Last Filed: 11/04/16 16:59> Subjective - Date & Time of Evaluation Date of Evaluation: 11/04/16 Time of Evaluation: 11:00 - Subjective Subjective: Dr. Barrett note, Patient and evaluated in room. Patient currently has no new complaints of pain , nausea, vomiting, diarrhea, chest pain, or palpitations, or shortness of breath. He reports that he knows he may need a skin craft. Objective - Vital Signs/Intake and Output Vital Signs (last 24 hours): Temp Pulse Resp BP Pulse Ox 97.7 F 89 20 109/71 98 11/04/16 07:47 11/04/16 07:47 11/04/16 07:47 11/04/16 07:47 11/04/16 07:47 Intake and Output: 11/04/16 11/04/16 06:59 18:59 Intake Total 750 Output Total 1200 Balance -450 - Medications Medications: Current Medications Diphenhydramine HCl (Benadryl) 25 mg IVP Q2H PRN PRN Reason: itchiness Last Admin: 11/04/16 08:07 Dose: 25 mg Gabapentin (Neurontin) 100 mg PO TID [facility] Last Admin: 11/03/16 17:40 Dose: 100 mg Hydromorphone HCl (Dilaudid) 2 mg IVP Q2 PRN PRN Reason: Pain, moderate (4-7) Last Admin: 11/04/16 08:08 Dose: 2 mg Cefazolin Sodium/Dextrose (Ancef Iv 1 Gm Duplex) 50 mls @ 100 mls/hr IVPB Q8H [facility] Last Admin: 11/04/16 03:08 Dose: 100 mls/hr Pantoprazole Sodium (Protonix Ec Tab) 40 mg PO DAILY [facility] Last Admin: 11/03/16 10:39 Dose: 40 mg Polyethylene Glycol (Miralax) 17 gm PO DAILY [facility] Last Admin: 11/03/16 10:42 Dose: Not Given Trazodone HCl (Desyrel) 50 mg PO HS [facility] Last Admin: 11/03/16 22:08 Dose: 50 mg - Labs Labs: 11/03/16 07:30 11/03/16 07:30 - Constitutional Appears: Non-toxic, No Acute Distress - Respiratory Exam Respiratory Exam: Clear to Ausculation Bilateral. absent: Rhonchi, Wheezes - Cardiovascular Exam Cardiovascular Exam: REGULAR RHYTHM, RRR, +S1, +S2. absent: Gallop, Rubs - GI/Abdominal Exam GI & Abdominal Exam: Soft. absent: Tenderness - Extremities Exam Extremities Exam: Normal Inspection. absent: Pedal Edema - Back Exam Back Exam: NORMAL INSPECTION, vertebral tenderness Assessment and Plan (1) Abscess Assessment & Plan: Perirectal Abscess 3/14 POD#12 I&D of abscess with surgeon Dr. Taylor. Wound care nurse referral. Wound culture Klebsiella pneumonia sensitive for Ancef. Ancef 1g IV q8H started 10/22/16 As per surgery team, patient will need Keflex po 7-10 days upon discharge. Dilaudid 2mg IV q2H PRN. Per Dr. Barrett, still need to wait for plastic surgery referral. Status: Acute (2) Intractable abdominal pain Assessment & Plan: Dilauded 2mg for pain prn. Status: Acute (3) Constipation Assessment & Plan: Miralax 17gm Status: Acute (4) Prophylactic measure Assessment & Plan: Protonix 40mg Dresdyl 20mg Status: Acute - Assessment and Plan (Free Text) Assessment: Perirectal Abscess POD#11 I&D of abscess with surgeon Dr. Taylor. Wound care nurse referral. ID Dr. Xavier consulted. Wound culture Klebsiella pneumonia sensitive for Ancef. Ancef 1g IV q8H started 10/22/16 As per surgery team, patient will need Keflex po 7-10 days upon discharge. Dilaudid 2mg IV q2H PRN. Lactobacillus Acidophilus - 1 cap PO BID Patient will need daily wound care at home upon discharge. Patient says he is waiting to see a plastic surgeon to do skin grafts on his wounds. Intractable Abdominal Pain Patient with Crohn's disease. Consult GI- Dr. Lopez- help appreciated. As per GI, okay to discharge home from GI perspective s/p partial colectomy revision on 10/14/16 Dilaudid 2 mg IVP Q2h PRN Benadryl 25mg IVP Q2h PRN Toradol 10mg PO Q8h PRN Tylenol 650mg PO Q4h PRN Depression Psych consult placed- Dr. Pesraud-help appreciated Continue Lexapro 20mg Trazodone 50 mg Neurontin 100 mg PO TID Supportive therapy CBT Prophylaxis Increased protonix 20mg to Protonix 40mg PO daily for GERD symptoms Lovenox 30mg SC Daily on hold. Patient is ambulating. SCDs Management as per Dr. Shiloh Barrett. <Osvaldo Barrett Jerry - Last Filed: 11/04/16 21:55> Objective - Vital Signs/Intake and Output Vital Signs (last 24 hours): Temp Pulse Resp BP Pulse Ox 97.9 F 84 20 102/72 98 11/04/16 15:10 11/04/16 15:10 11/04/16 15:10 11/04/16 15:10 11/04/16 15:10 Intake and Output: 11/04/16 11/05/16 18:59 06:59 Intake Total 150 Output Total 300 Balance -150 - Medications Medications: Current Medications Diphenhydramine HCl (Benadryl) 25 mg IVP Q2H PRN PRN Reason: itchiness Last Admin: 11/04/16 20:35 Dose: 25 mg Gabapentin (Neurontin) 100 mg PO TID [facility] Last Admin: 11/04/16 17:20 Dose: 100 mg Hydromorphone HCl (Dilaudid) 2 mg IVP Q2 PRN PRN Reason: Pain, moderate (4-7) Last Admin: 11/04/16 20:33 Dose: 2 mg Cefazolin Sodium/Dextrose (Ancef Iv 1 Gm Duplex) 50 mls @ 100 mls/hr IVPB Q8H [facility] Last Admin: 11/04/16 18:32 Dose: 100 mls/hr Pantoprazole Sodium (Protonix Ec Tab) 40 mg PO DAILY [facility] Last Admin: 11/04/16 10:23 Dose: 40 mg Polyethylene Glycol (Miralax) 17 gm PO DAILY [facility] Last Admin: 11/04/16 10:29 Dose: Not Given Trazodone HCl (Desyrel) 50 mg PO HS [facility] Last Admin: 11/03/16 22:08 Dose: 50 mg - Labs Labs: 11/04/16 19:58 11/04/16 19:58 Attending/Attestation - Attestation I have personally seen and examined this patient.: Yes I have fully participated in the care of the patient.: Yes I have reviewed all pertinent clinical information, including history, physical exam and plan: Yes Notes (Text): 03/14/17 21:54 case seen and discussed with staff and resident
[2016-11-04] MEDS: Pantoprazole 40 mg EC Tab PO SCH (10:23)
[2016-11-04] MEDS: POLYETHYLENE GLYCOL 3350 17 GM/Dose PACKET PO SCH (10:29)
[2016-11-04 20:22] LABS: BASO # 0.1 K/uL (0.0-0.2); BASO % 0.7 % (0.0-2.0); EOS % 8.7 % (0.0-4.0); HEMATOCRIT 28.7 % (35.0-51.0); LYMPH % 26.6 % (20.0-40.0); MEAN CELL VOLUME 67.1 fL (80.0-94.0); MEAN CORPUSCULAR HEMOGLOBIN 20.4 pg (27.0-31.0); MEAN CORPUSCULAR HGB CONC 30.4 g/dL (33.0-37.0); MEAN PLATELET VOLUME 7.8 fL (7.2-11.7); MONO # 0.7 K/uL (0.0-0.8); MONO % 6.6 % (0.0-10.0); RED CELL DISTRIBUTION WIDTH 15.7 % (11.5-14.5); WHITE BLOOD COUNT 11.3 K/uL (4.8-10.8)
[2016-11-04 20:26] LABS: CHLORIDE 95 mmol/L (98-107); SODIUM 138 mmol/L (132-148)
[2016-11-04 20:27] LABS: POTASSIUM 3.8 mmol/L (3.6-5.2)
[2016-11-04 20:29] LABS: ALB/GLOB RATIO 0.8 (1.0-2.1); ALKALINE PHOSPHATASE 111 U/L (38-126); AST/SGOT 25 U/L (17-59); BILIRUBIN,TOTAL 0.1 mg/dL (0.2-1.3); BLOOD UREA NITROGEN 5 mg/dL (9-20); CARBON DIOXIDE 29 mmol/L (22-30); GFR AFRICAN-AMERICAN > 60; GLUCOSE,RANDOM 79 mg/dL (75-110); TOTAL PROTEIN 7.3 g/dL (6.3-8.3)
[2016-11-04 20:30] LABS: ALT/SGPT 23 U/L (21-72); CALCIUM 8.2 mg/dl (8.6-10.4); MAGNESIUM 1.6 mg/dL (1.6-2.3)
--- NOTE | 2016-11-04 21:56 | CP.PCM.PN ---
Subjective - Date & Time of Evaluation Date of Evaluation: 11/04/16 Time of Evaluation: 08:00 Objective - Vital Signs/Intake and Output Vital Signs (last 24 hours): Temp Pulse Resp BP Pulse Ox 97.9 F 84 20 102/72 98 11/04/16 15:10 11/04/16 15:10 11/04/16 15:10 11/04/16 15:10 11/04/16 15:10 Intake and Output: 11/04/16 11/05/16 18:59 06:59 Intake Total 150 Output Total 300 Balance -150 - Medications Medications: Current Medications Diphenhydramine HCl (Benadryl) 25 mg IVP Q2H PRN PRN Reason: itchiness Last Admin: 11/04/16 20:35 Dose: 25 mg Gabapentin (Neurontin) 100 mg PO TID [facility] Last Admin: 11/04/16 17:20 Dose: 100 mg Hydromorphone HCl (Dilaudid) 2 mg IVP Q2 PRN PRN Reason: Pain, moderate (4-7) Last Admin: 11/04/16 20:33 Dose: 2 mg Cefazolin Sodium/Dextrose (Ancef Iv 1 Gm Duplex) 50 mls @ 100 mls/hr IVPB Q8H [facility] Last Admin: 11/04/16 18:32 Dose: 100 mls/hr Pantoprazole Sodium (Protonix Ec Tab) 40 mg PO DAILY [facility] Last Admin: 11/04/16 10:23 Dose: 40 mg Polyethylene Glycol (Miralax) 17 gm PO DAILY [facility] Last Admin: 11/04/16 10:29 Dose: Not Given Trazodone HCl (Desyrel) 50 mg PO HS [facility] Last Admin: 11/03/16 22:08 Dose: 50 mg - Labs Labs: 11/04/16 19:58 11/04/16 19:58
[2016-11-05] MEDS: DiphenhydrAMINE 50 mg/ml Inj IVP PRN ×11 (02:00→23:07)
[2016-11-05] MEDS: ceFAZolin IV 1 gm in Dextrose 50 ML IVPB SCH ×3 (02:05→18:56)
--- NOTE | 2016-11-05 08:36 | CP.PCM.PN ---
Subjective - Date & Time of Evaluation Date of Evaluation: 11/05/16 Time of Evaluation: 07:45 - Subjective Subjective: PGY2 Medicine Note - Dr. Eric Barrett's service: Patient seen and examined at bedside this AM. Patient says he feels better and wants to go home but does want to see a plastic surgeon. Patient denies fever, chills, chest pain, SOB, abdominal pain, nausea, vomiting, diarrhea, dysuria. Objective - Vital Signs/Intake and Output Vital Signs (last 24 hours): Temp Pulse Resp BP Pulse Ox 98.2 F 90 20 120/79 98 11/05/16 07:25 11/05/16 07:25 11/05/16 07:25 11/05/16 07:25 11/05/16 07:25 Intake and Output: 11/05/16 11/05/16 06:59 18:59 Intake Total 1000 Output Total 1800 Balance -800 - Medications Medications: Current Medications Diphenhydramine HCl (Benadryl) 25 mg IVP Q2H PRN PRN Reason: itchiness Last Admin: 11/05/16 06:50 Dose: 25 mg Gabapentin (Neurontin) 100 mg PO TID [facility] Last Admin: 11/04/16 17:20 Dose: 100 mg Hydromorphone HCl (Dilaudid) 2 mg IVP Q2 PRN PRN Reason: Pain, moderate (4-7) Last Admin: 11/05/16 06:50 Dose: 2 mg Cefazolin Sodium/Dextrose (Ancef Iv 1 Gm Duplex) 50 mls @ 100 mls/hr IVPB Q8H [facility] Last Admin: 11/05/16 02:05 Dose: 100 mls/hr Pantoprazole Sodium (Protonix Ec Tab) 40 mg PO DAILY [facility] Last Admin: 11/04/16 10:23 Dose: 40 mg Polyethylene Glycol (Miralax) 17 gm PO DAILY [facility] Last Admin: 11/04/16 10:29 Dose: Not Given Trazodone HCl (Desyrel) 50 mg PO HS [facility] Last Admin: 11/04/16 22:35 Dose: 50 mg - Labs Labs: 11/04/16 19:58 11/04/16 19:58 - Constitutional Appears: Non-toxic, No Acute Distress - Head Exam Head Exam: NORMAL INSPECTION - Eye Exam Eye Exam: EOMI - ENT Exam ENT Exam: Mucous Membranes Moist - Respiratory Exam Respiratory Exam: Clear to Ausculation Bilateral, NORMAL BREATHING PATTERN. absent: Rales, Rhonchi, Wheezes - Cardiovascular Exam Cardiovascular Exam: REGULAR RHYTHM, +S1, +S2. absent: Gallop, Rubs, Murmur - GI/Abdominal Exam GI & Abdominal Exam: Soft, Normal Bowel Sounds. absent: Tenderness Additional comments: ostomy bag - Extremities Exam Extremities Exam: Normal Capillary Refill. absent: Pedal Edema - Neurological Exam Neurological Exam: Alert, Oriented x3 - Psychiatric Exam Psychiatric exam: Normal Affect, Normal Mood - Skin Skin Exam: Normal Color, Warm Assessment and Plan - Assessment and Plan (Free Text) Assessment: (1) Abscess Assessment & Plan: Perirectal Abscess 11/05: POD #13 Awaiting plastic surgery consult per Dr. Eric Barrett 3 POD#12 I&D of abscess with surgeon Dr. Taylor. Wound care nurse referral. Wound culture Klebsiella pneumonia sensitive for Ancef. Ancef 1g IV q8H started 10/22/16 As per surgery team, patient will need Keflex po 7-10 days upon discharge. Dilaudid 2mg IV q2H PRN. Per Dr. Barrett, still need to wait for plastic surgery referral. Status: Acute (2) Intractable abdominal pain Assessment & Plan: Dilauded 2mg for pain prn. Status: Acute (3) Constipation Assessment & Plan: Miralax 17gm Status: Acute (4) Prophylactic measure Assessment & Plan: Protonix 40mg Dresdyl 20mg Status: Acute
[2016-11-05] MEDS: POLYETHYLENE GLYCOL 3350 17 GM/Dose PACKET PO SCH (10:42)
[2016-11-05] MEDS: Pantoprazole 40 mg EC Tab PO SCH (10:59)
[2016-11-05 11:08] LABS: BASO # 0.1 K/uL (0.0-0.2); BASO % 0.9 % (0.0-2.0); EOS # 0.8 K/uL (0.0-0.7); EOS % 8.5 % (0.0-4.0); HEMATOCRIT 29.1 % (35.0-51.0); LYMPH # 3.2 K/uL (1.0-4.3); LYMPH % 33.1 % (20.0-40.0); MEAN CELL VOLUME 66.2 fL (80.0-94.0); MEAN CORPUSCULAR HEMOGLOBIN 20.3 pg (27.0-31.0); MEAN CORPUSCULAR HGB CONC 30.6 g/dL (33.0-37.0); MONO # 0.5 K/uL (0.0-0.8); MONO % 5.2 % (0.0-10.0); NRBC % 0.1 % (0.0-2.0); RED CELL DISTRIBUTION WIDTH 15.8 % (11.5-14.5); WHITE BLOOD COUNT 9.7 K/uL (4.8-10.8)
[2016-11-05 11:17] LABS: CHLORIDE 92 mmol/L (98-107)
[2016-11-05 11:18] LABS: POTASSIUM 3.6 mmol/L (3.6-5.2); SODIUM 136 mmol/L (132-148)
[2016-11-05 11:20] LABS: ALB/GLOB RATIO 0.9 (1.0-2.1); ALKALINE PHOSPHATASE 105 U/L (38-126); AST/SGOT 21 U/L (17-59); BILIRUBIN,TOTAL 0.2 mg/dL (0.2-1.3); BLOOD UREA NITROGEN 5 mg/dL (9-20); CARBON DIOXIDE 28 mmol/L (22-30); GFR AFRICAN-AMERICAN > 60; TOTAL PROTEIN 7.3 g/dL (6.3-8.3)
[2016-11-05 11:21] LABS: ALT/SGPT 10 U/L (21-72); CALCIUM 8.7 mg/dl (8.6-10.4); GLUCOSE,RANDOM 87 mg/dL (75-110); MAGNESIUM 1.5 mg/dL (1.6-2.3); PHOSPHOROUS 4.7 mg/dL (2.5-4.5)
--- NOTE | 2016-11-05 15:07 | CP.PCM.PN ---
Subjective - Date & Time of Evaluation Date of Evaluation: 11/05/16 Time of Evaluation: 09:00 - Subjective Subjective: clinically same Objective - Vital Signs/Intake and Output Vital Signs (last 24 hours): Temp Pulse Resp BP Pulse Ox 98.2 F 90 20 120/79 98 11/05/16 07:25 11/05/16 11:15 11/05/16 07:25 11/05/16 07:25 11/05/16 07:25 Intake and Output: 11/05/16 11/05/16 06:59 18:59 Intake Total 1000 300 Output Total 1800 600 Balance -800 -300 - Medications Medications: Current Medications Diphenhydramine HCl (Benadryl) 25 mg IVP Q2H PRN PRN Reason: itchiness Last Admin: 11/05/16 14:49 Dose: 25 mg Gabapentin (Neurontin) 100 mg PO TID [facility] Last Admin: 11/05/16 12:59 Dose: 100 mg Hydromorphone HCl (Dilaudid) 2 mg IVP Q2 PRN PRN Reason: Pain, moderate (4-7) Last Admin: 11/05/16 14:49 Dose: 2 mg Cefazolin Sodium/Dextrose (Ancef Iv 1 Gm Duplex) 50 mls @ 100 mls/hr IVPB Q8H [facility] Last Admin: 11/05/16 12:51 Dose: 100 mls/hr Pantoprazole Sodium (Protonix Ec Tab) 40 mg PO DAILY [facility] Last Admin: 11/05/16 10:59 Dose: 40 mg Polyethylene Glycol (Miralax) 17 gm PO DAILY [facility] Last Admin: 11/05/16 10:42 Dose: Not Given Trazodone HCl (Desyrel) 50 mg PO HS [facility] Last Admin: 11/04/16 22:35 Dose: 50 mg - Labs Labs: 11/05/16 11:01 11/05/16 11:01 - Constitutional Appears: Well - Head Exam Head Exam: ATRAUMATIC, NORMAL INSPECTION, NORMOCEPHALIC - Eye Exam Eye Exam: EOMI, Normal appearance, PERRL Pupil Exam: NORMAL ACCOMODATION, PERRL - ENT Exam ENT Exam: Mucous Membranes Moist, Normal Exam - Neck Exam Neck Exam: Full ROM, Normal Inspection. absent: Lymphadenopathy - Respiratory Exam Respiratory Exam: Decreased Breath Sounds - Cardiovascular Exam Cardiovascular Exam: REGULAR RHYTHM, +S1, +S2 - GI/Abdominal Exam GI & Abdominal Exam: Soft, Diminished Bowel Sounds - Rectal Exam Rectal Exam: Deferred
[2016-11-05] MEDS: HYDROmorphone 1 mg/ml ISec IVP PRN (23:07)
[2016-11-06] MEDS: DiphenhydrAMINE 50 mg/ml Inj IVP PRN ×8 (01:09→22:56)
[2016-11-06] MEDS: HYDROmorphone 1 mg/ml ISec IVP PRN ×7 (01:09→18:40)
[2016-11-06] MEDS: ceFAZolin IV 1 gm in Dextrose 50 ML IVPB SCH ×3 (03:06→18:39)
[2016-11-06] MEDS: POLYETHYLENE GLYCOL 3350 17 GM/Dose PACKET PO SCH (10:04)
[2016-11-06] MEDS: Pantoprazole 40 mg EC Tab PO SCH (10:04)
--- NOTE | 2016-11-06 10:57 | CP.PCM.PN ---
Subjective - Date & Time of Evaluation Date of Evaluation: 11/06/16 Time of Evaluation: 11:15 - Subjective Subjective: Dr. Barrett, Patient seen and examined in room. He reports no pain, fever, chills, nausea, vomiting, or diarrhea. Objective - Vital Signs/Intake and Output Vital Signs (last 24 hours): Temp Pulse Resp BP Pulse Ox 98.1 F 89 20 107/72 100 11/06/16 07:13 11/06/16 07:13 11/06/16 07:13 11/06/16 07:13 11/06/16 07:13 Intake and Output: 11/06/16 11/06/16 06:59 18:59 Intake Total 450 Output Total 750 Balance -300 - Medications Medications: Current Medications Diphenhydramine HCl (Benadryl) 25 mg IVP Q4H PRN PRN Reason: itchiness Last Admin: 11/06/16 10:33 Dose: 25 mg Gabapentin (Neurontin) 100 mg PO TID [facility] Last Admin: 11/06/16 10:04 Dose: Not Given Hydromorphone HCl (Dilaudid) 1 mg IVP Q2 PRN PRN Reason: Pain, moderate (4-7) Last Admin: 11/06/16 10:33 Dose: 1 mg Cefazolin Sodium/Dextrose (Ancef Iv 1 Gm Duplex) 50 mls @ 100 mls/hr IVPB Q8H [facility] Last Admin: 11/06/16 10:05 Dose: 100 mls/hr Pantoprazole Sodium (Protonix Ec Tab) 40 mg PO DAILY [facility] Last Admin: 11/06/16 10:04 Dose: Not Given Polyethylene Glycol (Miralax) 17 gm PO DAILY [facility] Last Admin: 11/06/16 10:04 Dose: Not Given Trazodone HCl (Desyrel) 50 mg PO HS [facility] Last Admin: 11/05/16 21:14 Dose: 50 mg - Labs Labs: 11/05/16 11:01 11/05/16 11:01 - Constitutional Appears: Non-toxic, No Acute Distress - Head Exam Head Exam: ATRAUMATIC, NORMAL INSPECTION, NORMOCEPHALIC - Eye Exam Eye Exam: Normal appearance - ENT Exam ENT Exam: Mucous Membranes Moist - Respiratory Exam Respiratory Exam: Clear to Ausculation Bilateral. absent: Rhonchi, Wheezes - Cardiovascular Exam Cardiovascular Exam: REGULAR RHYTHM, RRR. absent: Gallop, Rubs - GI/Abdominal Exam GI & Abdominal Exam: Soft, Normal Bowel Sounds. absent: Tenderness - Extremities Exam Extremities Exam: Normal Inspection - Skin Skin Exam: Normal Color Assessment and Plan - Assessment and Plan (Free Text) Assessment: (1) Abscess Assessment & Plan: Perirectal Abscess 11/06: Patient went to the OR today for ID with delia Faye studies pending. 3: POD #13 Awaiting plastic surgery consult per Dr. Eric Barrett 3 POD#12 I&D of abscess with surgeon Dr. Taylor. Wound care nurse referral. Wound culture Klebsiella pneumonia sensitive for Ancef. Ancef 1g IV q8H started 10/22/16 As per surgery team, patient will need Keflex po 7-10 days upon discharge. Dilaudid 2mg IV q2H PRN. Per Dr. Barrett, still need to wait for plastic surgery referral. Status: Acute (2) Intractable abdominal pain Assessment & Plan: Dilauded 2mg for pain prn. Status: Acute (3) Constipation Assessment & Plan: Miralax 17gm Status: Acute (4) Prophylactic measure Assessment & Plan: Protonix 40mg Dresdyl 20mg Status: Acute
[2016-11-06 11:29] LABS: BASO # 0.1 K/uL (0.0-0.2); BASO % 1.1 % (0.0-2.0); EOS # 0.7 K/uL (0.0-0.7); EOS % 7.7 % (0.0-4.0); HEMATOCRIT 28.4 % (35.0-51.0); LYMPH % 33.5 % (20.0-40.0); MEAN CELL VOLUME 66.5 fL (80.0-94.0); MEAN CORPUSCULAR HEMOGLOBIN 20.7 pg (27.0-31.0); MEAN CORPUSCULAR HGB CONC 31.1 g/dL (33.0-37.0); MEAN PLATELET VOLUME 7.9 fL (7.2-11.7); MONO # 0.6 K/uL (0.0-0.8); MONO % 6.4 % (0.0-10.0); RED CELL DISTRIBUTION WIDTH 15.9 % (11.5-14.5)
[2016-11-06 11:41] LABS: CHLORIDE 93 mmol/L (98-107)
[2016-11-06 11:42] LABS: POTASSIUM 3.8 mmol/L (3.6-5.2); SODIUM 137 mmol/L (132-148)
[2016-11-06 11:44] LABS: ALB/GLOB RATIO 0.9 (1.0-2.1); ALKALINE PHOSPHATASE 107 U/L (38-126); AST/SGOT 23 U/L (17-59); BILIRUBIN,TOTAL 0.1 mg/dL (0.2-1.3); CARBON DIOXIDE 30 mmol/L (22-30); GFR AFRICAN-AMERICAN > 60; TOTAL PROTEIN 7.4 g/dL (6.3-8.3)
[2016-11-06 11:45] LABS: ALT/SGPT 14 U/L (21-72); BLOOD UREA NITROGEN 6 mg/dL (9-20); CALCIUM 8.9 mg/dl (8.6-10.4); GLUCOSE,RANDOM 85 mg/dL (75-110)
[2016-11-06 11:49] LABS: IMMUNOGLOBULIN M 151.3 mg/dL (40.0-230.0)
[2016-11-06] MEDS ORDERED: Midazolam 2 MG/2 ML VIAL ONE (13:12)
[2016-11-06] MEDS ORDERED: Propofol 10 mg/ml Inj (20 ML) ONE (13:12)
[2016-11-06] MEDS ORDERED: Lactated Ringer's 1,000 ML IV ONE (13:40)
[2016-11-06] MEDS ORDERED: Lidocaine 2% w Epi 1:100,000 Inj IJ ONE (13:51)
[2016-11-06] MEDS ORDERED: Bupivacaine HCl 0.25% PF (10 ml) Inj ONE ×2 (13:51→13:56)
[2016-11-06] MEDS ORDERED: HYDROmorphone 0.5 mg/0.5 ml ISec IVP PRN (14:20)
--- NOTE | 2016-11-06 14:22 | PCM.SURG1 ---
Surgeon's Initial Post Op Note - Surgeon's Notes Surgeon: Dr. Taylor Jewelry Coater: Dr. Merritt Type of Anesthesia: IV Sedation, Local Pre-Operative Diagnosis: Crohn's disease and gluteal abscess Operative Findings: see operative report Post-Operative Diagnosis: same Operation Performed: incision adn drainage of right superior gluteal abscess Specimen/Specimens Removed: fluid culture Estimated Blood Loss: EBL {In ML}: 10 Blood Products Given: N/A Drains Used: No Drains Post-Op Condition: Good Date of Surgery/Procedure: 11/06/16 Time of Surgery/Procedure: 14:21
--- NOTE | 2016-11-06 16:20 | CP.PCM.PN ---
Subjective - Date & Time of Evaluation Date of Evaluation: 11/06/16 Time of Evaluation: 09:00 - Subjective Subjective: clinically same Objective - Vital Signs/Intake and Output Vital Signs (last 24 hours): Temp Pulse Resp BP Pulse Ox 98.8 F 91 H 18 109/64 98 11/06/16 15:30 11/06/16 15:30 11/06/16 15:30 11/06/16 15:30 11/06/16 15:30 Intake and Output: 11/06/16 11/06/16 06:59 18:59 Intake Total 450 50 Output Total 750 250 Balance -300 -200 - Medications Medications: Current Medications Diphenhydramine HCl (Benadryl) 25 mg IVP Q4H PRN PRN Reason: itchiness Last Admin: 11/06/16 10:33 Dose: 25 mg Gabapentin (Neurontin) 100 mg PO TID [facility] Last Admin: 11/06/16 14:00 Dose: Not Given Hydromorphone HCl (Dilaudid) 1 mg IVP Q2 PRN PRN Reason: Pain, moderate (4-7) Last Admin: 11/06/16 10:33 Dose: 1 mg Hydromorphone HCl (Dilaudid) 0.5 mg IVP Q15M PRN PRN Reason: Pain, Mild (1-3) Stop: 11/06/16 16:20 Last Admin: 11/06/16 15:10 Dose: 0.5 mg Cefazolin Sodium/Dextrose (Ancef Iv 1 Gm Duplex) 50 mls @ 100 mls/hr IVPB Q8H [facility] Last Admin: 11/06/16 10:05 Dose: 100 mls/hr Pantoprazole Sodium (Protonix Ec Tab) 40 mg PO DAILY [facility] Last Admin: 11/06/16 10:04 Dose: Not Given Polyethylene Glycol (Miralax) 17 gm PO DAILY [facility] Last Admin: 11/06/16 10:04 Dose: Not Given Trazodone HCl (Desyrel) 50 mg PO HS [facility] Last Admin: 11/05/16 21:14 Dose: 50 mg - Labs Labs: 11/06/16 11:19 11/06/16 11:19 - Constitutional Appears: Well - Head Exam Head Exam: ATRAUMATIC, NORMAL INSPECTION, NORMOCEPHALIC - Eye Exam Eye Exam: EOMI, Normal appearance, PERRL Pupil Exam: NORMAL ACCOMODATION, PERRL - ENT Exam ENT Exam: Mucous Membranes Moist, Normal Exam - Neck Exam Neck Exam: Full ROM, Normal Inspection. absent: Lymphadenopathy - Respiratory Exam Respiratory Exam: Decreased Breath Sounds - Cardiovascular Exam Cardiovascular Exam: REGULAR RHYTHM, +S1, +S2 - GI/Abdominal Exam GI & Abdominal Exam: Soft, Diminished Bowel Sounds - Rectal Exam Rectal Exam: Deferred
--- NOTE | 2016-11-06 17:26 | US ---
PROCEDURE: Extremity nonvascular ultrasound HISTORY: Rt axilla eval abscess COMPARISON: None TECHNIQUE: Standard protocol for this study/examination. FINDINGS: Unremarkable soft tissues right axilla. No appreciable lymphadenopathy. Vascular structures within normal limits. IMPRESSION: No significant or acute findings to account for/ related to the clinical presentation.
[2016-11-06] MEDS ORDERED: DiphenhydrAMINE 50 mg/ml Inj IVP SCH (20:00)
[2016-11-07 00:57] VITALS: RESP 20
[2016-11-07] MEDS: DiphenhydrAMINE 50 mg/ml Inj IVP PRN ×11 (01:00→23:15)
[2016-11-07] MEDS: ceFAZolin IV 1 gm in Dextrose 50 ML IVPB SCH ×3 (03:05→18:37)
[2016-11-07 08:11] LABS: BASO # 0.1 K/uL (0.0-0.2); BASO % 1.2 % (0.0-2.0); EOS # 0.6 K/uL (0.0-0.7); EOS % 6.2 % (0.0-4.0); HEMATOCRIT 26.9 % (35.0-51.0); LYMPH # 3.4 K/uL (1.0-4.3); LYMPH % 36.6 % (20.0-40.0); MEAN CELL VOLUME 66.4 fL (80.0-94.0); MEAN CORPUSCULAR HEMOGLOBIN 20.4 pg (27.0-31.0); MEAN CORPUSCULAR HGB CONC 30.6 g/dL (33.0-37.0); MEAN PLATELET VOLUME 8.3 fL (7.2-11.7); MONO # 0.7 K/uL (0.0-0.8); MONO % 7.3 % (0.0-10.0); WHITE BLOOD COUNT 9.2 K/uL (4.8-10.8)
[2016-11-07 08:34] LABS: CHLORIDE 94 mmol/L (98-107)
[2016-11-07 08:35] LABS: POTASSIUM 3.4 mmol/L (3.6-5.2); SODIUM 136 mmol/L (132-148)
[2016-11-07 08:37] LABS: ALB/GLOB RATIO 0.8 (1.0-2.1); AST/SGOT 17 U/L (17-59); BILIRUBIN,TOTAL 0.1 mg/dL (0.2-1.3); CARBON DIOXIDE 30 mmol/L (22-30); GFR AFRICAN-AMERICAN > 60
[2016-11-07 08:38] LABS: ALKALINE PHOSPHATASE 94 U/L (38-126); ALT/SGPT 20 U/L (21-72); BLOOD UREA NITROGEN 7 mg/dL (9-20); CALCIUM 7.9 mg/dl (8.6-10.4); GLUCOSE,RANDOM 90 mg/dL (75-110)
--- NOTE | 2016-11-07 08:52 | CP.PCM.PN ---
Subjective - Date & Time of Evaluation Date of Evaluation: 11/07/16 Time of Evaluation: 10:18 - Subjective Subjective: PGY-1 note for General Surgery, Dr. Taylor PT S&E. MEHRNA. POD #1 I&D of right superior gluteal abscess. Pt reports pain at site while laying on his back, otherwise no complaints. He has been diet without issue. Denies fever, chills, nausea, vomiting, or diarrhea. Objective - Vital Signs/Intake and Output Vital Signs (last 24 hours): Temp Pulse Resp BP Pulse Ox 97.8 F 93 H 20 95/56 L 99 11/07/16 08:09 11/07/16 08:09 11/07/16 08:09 11/07/16 08:09 11/07/16 08:09 Intake and Output: 11/07/16 11/07/16 06:59 18:59 Intake Total 460 Output Total 950 Balance -490 - Medications Medications: Current Medications Diphenhydramine HCl (Benadryl) 25 mg IVP Q2 PRN PRN Reason: Pain, severe (8-10) Last Admin: 11/07/16 07:29 Dose: 25 mg Gabapentin (Neurontin) 100 mg PO TID [facility] Last Admin: 11/06/16 18:40 Dose: 100 mg Hydromorphone HCl (Dilaudid) 2 mg IVP Q2 PRN PRN Reason: Pain, moderate (4-7) Last Admin: 11/07/16 07:30 Dose: 2 mg Cefazolin Sodium/Dextrose (Ancef Iv 1 Gm Duplex) 50 mls @ 100 mls/hr IVPB Q8H [facility] Last Admin: 11/07/16 03:05 Dose: 100 mls/hr Pantoprazole Sodium (Protonix Ec Tab) 40 mg PO DAILY [facility] Last Admin: 11/06/16 10:04 Dose: Not Given Polyethylene Glycol (Miralax) 17 gm PO DAILY [facility] Last Admin: 11/06/16 10:04 Dose: Not Given Trazodone HCl (Desyrel) 50 mg PO HS [facility] Last Admin: 11/06/16 22:57 Dose: 50 mg - Labs Labs: 11/07/16 08:04 11/07/16 08:04 - Constitutional Appears: Non-toxic, No Acute Distress - Head Exam Head Exam: ATRAUMATIC, NORMAL INSPECTION, NORMOCEPHALIC - Eye Exam Eye Exam: EOMI - ENT Exam ENT Exam: Mucous Membranes Moist - GI/Abdominal Exam GI & Abdominal Exam: Soft, Normal Bowel Sounds. absent: Tenderness Additional comments: colostomy in place producing formed green/brown stool - Neurological Exam Neurological Exam: Alert, Oriented x3 - Skin Skin Exam: Normal Color, Warm Additional comments: Pt deferred exam of perirectal/gluteal abscess until dressing change in afternoon Assessment and Plan - Assessment and Plan (Free Text) Assessment: 21M with Crohn's disease s/p superior gluteal abscess I&D POD#1 Plan: Will change gluteal abscess dressing in afternoon Abx per ID Dr. Duc Cruz for discharge per surgery Shahriar Celis, PGY-1 D/W Dr. Taylor
[2016-11-07] MEDS: Pantoprazole 40 mg EC Tab PO SCH (09:45)
[2016-11-07] MEDS: POLYETHYLENE GLYCOL 3350 17 GM/Dose PACKET PO SCH (09:54)
--- NOTE | 2016-11-07 17:29 | CP.PCM.PN ---
<lEan Shields H - Last Filed: 11/07/16 18:57> Subjective - Date & Time of Evaluation Date of Evaluation: 11/07/16 Time of Evaluation: 11:00 - Subjective Subjective: Dr. Arnold stevenson, Patient reports that surgery found several more abscess including one around his genital area. He is upset because no one has been able to find out why he has been having so many abscess that are reoccuring. He was diagnosed with Crohn's disease about 4 years ago and since he was treated for it. He has been having re occuring abscess all over this body. He expressed concerns that the only thing done is I&D surgery. Objective - Vital Signs/Intake and Output Vital Signs (last 24 hours): Temp Pulse Resp BP Pulse Ox 98 F 93 H 20 102/64 100 11/07/16 15:00 11/07/16 15:00 11/07/16 15:00 11/07/16 15:00 11/07/16 15:00 Intake and Output: 11/07/16 11/07/16 06:59 18:59 Intake Total 460 450 Output Total 950 450 Balance -490 0 - Medications Medications: Current Medications Diphenhydramine HCl (Benadryl) 25 mg IVP Q2 PRN PRN Reason: Pain, severe (8-10) Last Admin: 11/07/16 16:19 Dose: 25 mg Gabapentin (Neurontin) 100 mg PO TID [facility] Last Admin: 11/07/16 09:45 Dose: 100 mg Hydromorphone HCl (Dilaudid) 2 mg IVP Q2 PRN PRN Reason: Pain, moderate (4-7) Last Admin: 11/07/16 16:20 Dose: 2 mg Cefazolin Sodium/Dextrose (Ancef Iv 1 Gm Duplex) 50 mls @ 100 mls/hr IVPB Q8H [facility] Last Admin: 11/07/16 10:36 Dose: 100 mls/hr Pantoprazole Sodium (Protonix Ec Tab) 40 mg PO DAILY [facility] Last Admin: 11/07/16 09:45 Dose: 40 mg Polyethylene Glycol (Miralax) 17 gm PO DAILY [facility] Last Admin: 11/07/16 09:54 Dose: Not Given Potassium Chloride (K-Dur 20 Meq Er Tab) 40 meq PO ONCE ONE Stop: 11/08/16 15:26 Trazodone HCl (Desyrel) 50 mg PO HS [facility] Last Admin: 11/06/16 22:57 Dose: 50 mg - Labs Labs: 11/07/16 08:04 11/07/16 08:04 - Constitutional Appears: Well, Non-toxic, No Acute Distress - Head Exam Head Exam: NORMOCEPHALIC - Eye Exam Eye Exam: Normal appearance - Respiratory Exam Respiratory Exam: Clear to Ausculation Bilateral. absent: Rhonchi, Wheezes - Cardiovascular Exam Cardiovascular Exam: REGULAR RHYTHM - Psychiatric Exam Psychiatric exam: Normal Affect, Normal Mood - Skin Skin Exam: Normal Color, Warm Assessment and Plan - Assessment and Plan (Free Text) Assessment: (1) Abscess Assessment & Plan: Perirectal Abscess 11/07: IGG is elevated at over 1646, the other antibody levels are wnl. Patient reports more abscesses found. He will need further work up as outpatient to find reasons for his reoccuring abscess. 11/06: Patient went to the OR today for ID with riya Fayeuin studies pending. 11/05: POD #13 Awaiting plastic surgery consult per Dr. Eric Barrett 11/04 POD#12 I&D of abscess with surgeon Dr. Taylor. Wound care nurse referral. Wound culture Klebsiella pneumonia sensitive for Ancef. Ancef 1g IV q8H started 10/22/16 As per surgery team, patient will need Keflex po 7-10 days upon discharge. Dilaudid 2mg IV q2H PRN. Per Dr. Barrett, still need to wait for plastic surgery referral. Status: Acute (2) Intractable abdominal pain Assessment & Plan: Dilauded 2mg for pain prn. Status: Acute (3) Constipation Assessment & Plan: Miralax 17gm Status: Acute (4) Prophylactic measure Assessment & Plan: Protonix 40mg Dresdyl 20mg Status: Acute <Osvaldo Barrett - Last Filed: 11/09/16 10:28> Objective - Vital Signs/Intake and Output Vital Signs (last 24 hours): Temp Pulse Resp BP Pulse Ox 97.9 F 99 H 20 105/70 96 11/09/16 08:00 11/09/16 08:00 11/09/16 08:00 11/09/16 08:00 11/09/16 08:00 Intake and Output: 11/09/16 11/09/16 06:59 18:59 Intake Total 550 Balance 550 - Medications Medications: Current Medications Diphenhydramine HCl (Benadryl) 25 mg IVP Q2 PRN PRN Reason: Pain, severe (8-10) Last Admin: 11/09/16 09:49 Dose: 25 mg Gabapentin (Neurontin) 100 mg PO TID [facility] Last Admin: 11/09/16 09:54 Dose: 100 mg Hydromorphone HCl (Dilaudid) 2 mg IVP Q2 PRN PRN Reason: Pain, moderate (4-7) Last Admin: 11/09/16 09:47 Dose: 2 mg Cefazolin Sodium/Dextrose (Ancef Iv 1 Gm Duplex) 50 mls @ 100 mls/hr IVPB Q8H [facility] Last Admin: 11/09/16 02:57 Dose: 100 mls/hr Pantoprazole Sodium (Protonix Ec Tab) 40 mg PO DAILY [facility] Last Admin: 11/09/16 09:54 Dose: 40 mg Polyethylene Glycol (Miralax) 17 gm PO DAILY [facility] Last Admin: 11/09/16 09:53 Dose: Not Given Trazodone HCl (Desyrel) 50 mg PO HS [facility] Last Admin: 11/08/16 22:35 Dose: 50 mg - Labs Labs: 11/09/16 07:46 11/09/16 07:46 Attending/Attestation - Attestation I have personally seen and examined this patient.: Yes I have fully participated in the care of the patient.: Yes I have reviewed all pertinent clinical information, including history, physical exam and plan: Yes Notes (Text): case seen and discussed with staff and resident
--- NOTE | 2016-11-07 18:11 | CP.PCM.PN ---
Subjective - Date & Time of Evaluation Date of Evaluation: 11/07/16 Time of Evaluation: 09:00 - Subjective Subjective: clinically same Objective - Vital Signs/Intake and Output Vital Signs (last 24 hours): Temp Pulse Resp BP Pulse Ox 98 F 93 H 20 102/64 100 11/07/16 15:00 11/07/16 15:00 11/07/16 15:00 11/07/16 15:00 11/07/16 15:00 Intake and Output: 11/07/16 11/07/16 06:59 18:59 Intake Total 460 450 Output Total 950 450 Balance -490 0 - Medications Medications: Current Medications Diphenhydramine HCl (Benadryl) 25 mg IVP Q2 PRN PRN Reason: Pain, severe (8-10) Last Admin: 11/07/16 16:19 Dose: 25 mg Gabapentin (Neurontin) 100 mg PO TID [facility] Last Admin: 11/07/16 09:45 Dose: 100 mg Hydromorphone HCl (Dilaudid) 2 mg IVP Q2 PRN PRN Reason: Pain, moderate (4-7) Last Admin: 11/07/16 16:20 Dose: 2 mg Cefazolin Sodium/Dextrose (Ancef Iv 1 Gm Duplex) 50 mls @ 100 mls/hr IVPB Q8H [facility] Last Admin: 11/07/16 10:36 Dose: 100 mls/hr Pantoprazole Sodium (Protonix Ec Tab) 40 mg PO DAILY [facility] Last Admin: 11/07/16 09:45 Dose: 40 mg Polyethylene Glycol (Miralax) 17 gm PO DAILY [facility] Last Admin: 11/07/16 09:54 Dose: Not Given Potassium Chloride (K-Dur 20 Meq Er Tab) 40 meq PO ONCE ONE Stop: 11/08/16 15:26 Trazodone HCl (Desyrel) 50 mg PO HS [facility] Last Admin: 11/06/16 22:57 Dose: 50 mg - Labs Labs: 11/07/16 08:04 11/07/16 08:04 - Constitutional Appears: Well - Head Exam Head Exam: ATRAUMATIC, NORMAL INSPECTION, NORMOCEPHALIC - Eye Exam Eye Exam: EOMI, Normal appearance, PERRL - ENT Exam ENT Exam: Mucous Membranes Moist, Normal Exam - Neck Exam Neck Exam: Full ROM, Normal Inspection. absent: Lymphadenopathy - Respiratory Exam Respiratory Exam: Decreased Breath Sounds - Cardiovascular Exam Cardiovascular Exam: REGULAR RHYTHM, +S1, +S2 - GI/Abdominal Exam GI & Abdominal Exam: Soft, Diminished Bowel Sounds - Rectal Exam Rectal Exam: Deferred
[2016-11-08] MEDS: DiphenhydrAMINE 50 mg/ml Inj IVP PRN ×10 (02:00→22:34)
[2016-11-08] MEDS: ceFAZolin IV 1 gm in Dextrose 50 ML IVPB SCH ×3 (03:04→18:31)
[2016-11-08 07:25] LABS: BASO # 0.1 K/uL (0.0-0.2); BASO % 0.9 % (0.0-2.0); EOS # 0.5 K/uL (0.0-0.7); EOS % 5.7 % (0.0-4.0); HEMATOCRIT 27.6 % (35.0-51.0); LYMPH # 3.6 K/uL (1.0-4.3); LYMPH % 38.8 % (20.0-40.0); MEAN CELL VOLUME 65.8 fL (80.0-94.0); MEAN CORPUSCULAR HEMOGLOBIN 20.4 pg (27.0-31.0); MEAN PLATELET VOLUME 7.9 fL (7.2-11.7); MONO # 0.6 K/uL (0.0-0.8); MONO % 6.6 % (0.0-10.0); WHITE BLOOD COUNT 9.2 K/uL (4.8-10.8)
[2016-11-08 07:39] LABS: CHLORIDE 93 mmol/L (98-107)
[2016-11-08 07:40] LABS: POTASSIUM 3.5 mmol/L (3.6-5.2); SODIUM 138 mmol/L (132-148)
[2016-11-08 07:42] LABS: ALB/GLOB RATIO 0.9 (1.0-2.1); AST/SGOT 27 U/L (17-59); BILIRUBIN,TOTAL 0.2 mg/dL (0.2-1.3); BLOOD UREA NITROGEN 3 mg/dL (9-20); CARBON DIOXIDE 28 mmol/L (22-30); GFR AFRICAN-AMERICAN > 60; TOTAL PROTEIN 7.3 g/dL (6.3-8.3)
[2016-11-08 07:43] LABS: ALKALINE PHOSPHATASE 95 U/L (38-126); ALT/SGPT 7 U/L (21-72); CALCIUM 8.8 mg/dl (8.6-10.4); GLUCOSE,RANDOM 79 mg/dL (75-110)
--- NOTE | 2016-11-08 07:51 | CP.PCM.PN ---
Subjective - Date & Time of Evaluation Date of Evaluation: 11/08/16 Time of Evaluation: 07:48 - Subjective Subjective: Gen Surg: Dr Taylor Pt S&E. NAEO. Resting comfortably. Admits to pain at site of I&D but no other abdominal pain. Denies N/V, F/C. Requests we return in afternoon for packing change Objective - Vital Signs/Intake and Output Vital Signs (last 24 hours): Temp Pulse Resp BP Pulse Ox 98.1 F 105 H 20 102/69 99 11/08/16 00:00 11/08/16 00:00 11/08/16 00:00 11/08/16 00:00 11/08/16 00:00 Intake and Output: 11/08/16 11/08/16 06:59 18:59 Intake Total 450 Output Total 100 Balance 350 - Medications Medications: Current Medications Diphenhydramine HCl (Benadryl) 25 mg IVP Q2 PRN PRN Reason: Pain, severe (8-10) Last Admin: 11/08/16 06:08 Dose: 25 mg Gabapentin (Neurontin) 100 mg PO TID [facility] Last Admin: 11/07/16 18:31 Dose: 100 mg Hydromorphone HCl (Dilaudid) 2 mg IVP Q2 PRN PRN Reason: Pain, moderate (4-7) Last Admin: 11/08/16 06:08 Dose: 2 mg Cefazolin Sodium/Dextrose (Ancef Iv 1 Gm Duplex) 50 mls @ 100 mls/hr IVPB Q8H [facility] Last Admin: 11/08/16 03:04 Dose: 100 mls/hr Pantoprazole Sodium (Protonix Ec Tab) 40 mg PO DAILY [facility] Last Admin: 11/07/16 09:45 Dose: 40 mg Polyethylene Glycol (Miralax) 17 gm PO DAILY [facility] Last Admin: 11/07/16 09:54 Dose: Not Given Potassium Chloride (K-Dur 20 Meq Er Tab) 40 meq PO ONCE ONE Stop: 11/08/16 15:26 Trazodone HCl (Desyrel) 50 mg PO HS [facility] Last Admin: 11/07/16 23:21 Dose: 50 mg - Labs Labs: 11/08/16 07:14 11/07/16 08:04 - Constitutional Appears: Non-toxic, No Acute Distress - Respiratory Exam Respiratory Exam: absent: Accessory Muscle Use, Respiratory Distress - Cardiovascular Exam Cardiovascular Exam: REGULAR RHYTHM - GI/Abdominal Exam GI & Abdominal Exam: Soft. absent: Distended, Guarding, Rigid - Neurological Exam Neurological Exam: Alert, Awake, Oriented x3 - Psychiatric Exam Psychiatric exam: Normal Affect, Normal Mood Assessment and Plan - Assessment and Plan (Free Text) Assessment: 21M POD3 I&D of most recent gluteal abscess - pt is s/p I&D x 4 Plan: will change packing this afternoon if pt still in house pt clear for D/C from surgery
[2016-11-08] MEDS: POLYETHYLENE GLYCOL 3350 17 GM/Dose PACKET PO SCH (09:57)
[2016-11-08] MEDS: Pantoprazole 40 mg EC Tab PO SCH (09:57)
--- NOTE | 2016-11-08 14:32 | CP.PCM.PN ---
Subjective - Date & Time of Evaluation Date of Evaluation: 11/08/16 Time of Evaluation: 09:00 - Subjective Subjective: clinically same Objective - Vital Signs/Intake and Output Vital Signs (last 24 hours): Temp Pulse Resp BP Pulse Ox 98.6 F 106 H 20 104/67 98 11/08/16 06:00 11/08/16 06:00 11/08/16 06:00 11/08/16 06:00 11/08/16 06:00 Intake and Output: 11/08/16 11/08/16 06:59 18:59 Intake Total 700 Output Total 750 Balance -50 - Medications Medications: Current Medications Diphenhydramine HCl (Benadryl) 25 mg IVP Q2 PRN PRN Reason: Pain, severe (8-10) Last Admin: 11/08/16 14:14 Dose: 25 mg Gabapentin (Neurontin) 100 mg PO TID [facility] Last Admin: 11/08/16 14:30 Dose: 100 mg Hydromorphone HCl (Dilaudid) 2 mg IVP Q2 PRN PRN Reason: Pain, moderate (4-7) Last Admin: 11/08/16 14:14 Dose: 2 mg Cefazolin Sodium/Dextrose (Ancef Iv 1 Gm Duplex) 50 mls @ 100 mls/hr IVPB Q8H [facility] Last Admin: 11/08/16 11:16 Dose: 100 mls/hr Pantoprazole Sodium (Protonix Ec Tab) 40 mg PO DAILY [facility] Last Admin: 11/08/16 09:57 Dose: 40 mg Polyethylene Glycol (Miralax) 17 gm PO DAILY [facility] Last Admin: 11/08/16 09:57 Dose: Not Given Potassium Chloride (K-Dur 20 Meq Er Tab) 40 meq PO ONCE ONE Stop: 11/08/16 15:26 Trazodone HCl (Desyrel) 50 mg PO HS [facility] Last Admin: 11/07/16 23:21 Dose: 50 mg - Labs Labs: 11/08/16 07:14 11/08/16 07:14 - Constitutional Appears: Well - Head Exam Head Exam: ATRAUMATIC, NORMAL INSPECTION, NORMOCEPHALIC - Eye Exam Eye Exam: EOMI, Normal appearance, PERRL Pupil Exam: NORMAL ACCOMODATION, PERRL - ENT Exam ENT Exam: Mucous Membranes Moist, Normal Exam - Neck Exam Neck Exam: Full ROM, Normal Inspection. absent: Lymphadenopathy - Respiratory Exam Respiratory Exam: Decreased Breath Sounds - Cardiovascular Exam Cardiovascular Exam: REGULAR RHYTHM, +S1, +S2 - GI/Abdominal Exam GI & Abdominal Exam: Soft, Diminished Bowel Sounds - Rectal Exam Rectal Exam: Deferred
[2016-11-08] MEDS ORDERED: Potassium Chloride 20 mEq ER Tab PO ONE ×2 (15:25→17:00)
[2016-11-09] MEDS: DiphenhydrAMINE 50 mg/ml Inj IVP PRN ×11 (00:34→22:05)
[2016-11-09] MEDS: ceFAZolin IV 1 gm in Dextrose 50 ML IVPB SCH ×3 (02:57→18:09)
[2016-11-09 07:55] LABS: EOS # 0.7 K/uL (0.0-0.7); LYMPH # 3.8 K/uL (1.0-4.3); MEAN PLATELET VOLUME 8.5 fL (7.2-11.7); NRBC % 0.1 % (0.0-2.0)
[2016-11-09 08:04] LABS: CHLORIDE 97 mmol/L (98-107)
[2016-11-09 08:05] LABS: POTASSIUM 4.2 mmol/L (3.6-5.2); SODIUM 137 mmol/L (132-148)
[2016-11-09 08:06] LABS: BASO # 0.2 K/uL (0.0-0.2); BASO % 1.4 % (0.0-2.0); EOS % 5.6 % (0.0-4.0); HEMATOCRIT 28.5 % (35.0-51.0); LYMPH % 31.1 % (20.0-40.0); MEAN CELL VOLUME 65.9 fL (80.0-94.0); MEAN CORPUSCULAR HEMOGLOBIN 20.4 pg (27.0-31.0); MONO # 0.9 K/uL (0.0-0.8); MONO % 7.7 % (0.0-10.0); RED CELL DISTRIBUTION WIDTH 15.6 % (11.5-14.5); WHITE BLOOD COUNT 12.2 K/uL (4.8-10.8)
[2016-11-09 08:07] LABS: CARBON DIOXIDE 28 mmol/L (22-30); GFR AFRICAN-AMERICAN > 60
[2016-11-09 08:08] LABS: ALB/GLOB RATIO 0.8 (1.0-2.1); ALKALINE PHOSPHATASE 102 U/L (38-126); ALT/SGPT 16 U/L (21-72); AST/SGOT 20 U/L (17-59); BILIRUBIN,TOTAL 0.3 mg/dL (0.2-1.3); BLOOD UREA NITROGEN 4 mg/dL (9-20); CALCIUM 8.8 mg/dl (8.6-10.4); GLUCOSE,RANDOM 97 mg/dL (75-110); TOTAL PROTEIN 7.7 g/dL (6.3-8.3)
[2016-11-09] MEDS: POLYETHYLENE GLYCOL 3350 17 GM/Dose PACKET PO SCH (09:53)
[2016-11-09] MEDS: Pantoprazole 40 mg EC Tab PO SCH (09:54)
--- NOTE | 2016-11-09 10:31 | CP.PCM.PN ---
Subjective - Date & Time of Evaluation Date of Evaluation: 11/09/16 Objective - Vital Signs/Intake and Output Vital Signs (last 24 hours): Temp Pulse Resp BP Pulse Ox 97.9 F 99 H 20 105/70 96 11/09/16 08:00 11/09/16 08:00 11/09/16 08:00 11/09/16 08:00 11/09/16 08:00 Intake and Output: 11/09/16 11/09/16 06:59 18:59 Intake Total 550 Balance 550 - Medications Medications: Current Medications Diphenhydramine HCl (Benadryl) 25 mg IVP Q2 PRN PRN Reason: Pain, severe (8-10) Last Admin: 11/09/16 09:49 Dose: 25 mg Gabapentin (Neurontin) 100 mg PO TID [facility] Last Admin: 11/09/16 09:54 Dose: 100 mg Hydromorphone HCl (Dilaudid) 2 mg IVP Q2 PRN PRN Reason: Pain, moderate (4-7) Last Admin: 11/09/16 09:47 Dose: 2 mg Cefazolin Sodium/Dextrose (Ancef Iv 1 Gm Duplex) 50 mls @ 100 mls/hr IVPB Q8H [facility] Last Admin: 11/09/16 02:57 Dose: 100 mls/hr Pantoprazole Sodium (Protonix Ec Tab) 40 mg PO DAILY [facility] Last Admin: 11/09/16 09:54 Dose: 40 mg Polyethylene Glycol (Miralax) 17 gm PO DAILY [facility] Last Admin: 11/09/16 09:53 Dose: Not Given Trazodone HCl (Desyrel) 50 mg PO [facility] Last Admin: 11/08/16 22:35 Dose: 50 mg - Labs Labs: 11/09/16 07:46 11/09/16 07:46 Assessment and Plan (1) Abscess Status: Acute (2) Constipation Status: Acute (3) Encounter for wound care Status: Acute (4) Intractable abdominal pain Status: Acute (5) Prophylactic measure Status: Acute (6) Crohn disease Status: Acute (7) Foreign body Status: Acute (8) Rectal fistula Status: Acute (9) Rectal pain Status: Acute - Assessment and Plan (Free Text) Plan: more abscesses s/p antibody level plastic srugeon as per dr. romero but needs to do dressing everyday and needs hihg dose pain med tried to taper med several times but pt wants it only thi way also spoke to mother multiple times
--- NOTE | 2016-11-09 16:47 | CP.PCM.PN ---
Subjective - Date & Time of Evaluation Date of Evaluation: 11/09/16 Time of Evaluation: 08:00 - Subjective Subjective: CONT TO IMPROVE RX REORDERED Objective - Vital Signs/Intake and Output Vital Signs (last 24 hours): Temp Pulse Resp BP Pulse Ox 97.9 F 99 H 20 105/70 96 11/09/16 08:00 11/09/16 08:00 11/09/16 08:00 11/09/16 08:00 11/09/16 08:00 Intake and Output: 11/09/16 11/09/16 06:59 18:59 Intake Total 550 Balance 550 - Medications Medications: Current Medications Diphenhydramine HCl (Benadryl) 25 mg IVP Q2 PRN PRN Reason: Pain, severe (8-10) Last Admin: 11/09/16 16:06 Dose: 25 mg Gabapentin (Neurontin) 100 mg PO TID [facility] Last Admin: 11/09/16 14:09 Dose: 100 mg Hydromorphone HCl (Dilaudid) 2 mg IVP Q2 PRN PRN Reason: Pain, moderate (4-7) Last Admin: 11/09/16 16:07 Dose: 2 mg Cefazolin Sodium/Dextrose (Ancef Iv 1 Gm Duplex) 50 mls @ 100 mls/hr IVPB Q8H [facility] Last Admin: 11/09/16 11:59 Dose: 100 mls/hr Pantoprazole Sodium (Protonix Ec Tab) 40 mg PO DAILY [facility] Last Admin: 11/09/16 09:54 Dose: 40 mg Polyethylene Glycol (Miralax) 17 gm PO DAILY [facility] Last Admin: 11/09/16 09:53 Dose: Not Given Trazodone HCl (Desyrel) 50 mg PO [facility] Last Admin: 11/08/16 22:35 Dose: 50 mg - Labs Labs: 11/09/16 07:46 11/09/16 07:46 - Constitutional Appears: Non-toxic, Chronically Ill - Head Exam Head Exam: NORMOCEPHALIC - Eye Exam Eye Exam: absent: Scleral icterus - ENT Exam ENT Exam: Mucous Membranes Dry - Neck Exam Neck Exam: absent: Lymphadenopathy - Respiratory Exam Respiratory Exam: Decreased Breath Sounds, Clear to Ausculation Bilateral - Cardiovascular Exam Cardiovascular Exam: REGULAR RHYTHM Assessment and Plan (1) Abscess Status: Acute (2) Encounter for wound care Status: Acute (3) Intractable abdominal pain Status: Acute (4) Crohn disease Status: Acute
--- NOTE | 2016-11-09 20:31 | OP ---
PROCEDURE DATE: 11/06/2016 PREOPERATIVE DIAGNOSES: Crohn disease with multiple perineal wounds and right gluteal abscess. POSTOPERATIVE DIAGNOSES: Crohn disease with multiple perineal wounds and right gluteal abscess. PROCEDURES DONE: 1. Incision and drainage of the right gluteal abscess. 2. Excisional debridement of the wound connecting the right gluteal abscess. SURGEON: Temo Taylor MD LIME TRIMMER: Barbie Merritt. ANESTHESIA: General endotracheal tube anesthesia. ESTIMATED BLOOD LOSS: Around 10 mL. DRAINS: None. PATHOLOGY: The pus was sent for culture and sensitivity. COMPLICATIONS: None. INTRAOPERATIVE FINDINGS: The patient had a right deep gluteal abscess in the upper part of the glute al region and it was connecting to the midline presacral wound. INTRAOPERATIVE STEPS: This is a 21-year-old male who was diagnosed with a right gluteal abscess and the patient also had multiple previous debridements and abscess cavity drained and the patient was co nsented for the drainage. The patient was brought to the OR and placed in the left lateral position. The right gluteal and perineal area was prepped and draped and an incision was made. The abscess ca vity was entered. The abscess was drained and the connection between the abscess cavity and the pres acral wound was identified and the wound was debrided and then packing was placed and a dry sterile d ressing was applied. The patient tolerated the procedure well. Count of instruments and gauze was c orrect. There were no apparent complications. The patient was reversed from anesthesia and sent to the postanesthesia care unit in stable condition. Temo Taylor MD cc: [id number] TT: 11/09/2016 20:31:15 dn
[2016-11-10] MEDS: DiphenhydrAMINE 50 mg/ml Inj IVP PRN ×11 (00:05→23:25)
[2016-11-10] MEDS: ceFAZolin IV 1 gm in Dextrose 50 ML IVPB SCH ×3 (02:31→18:56)
--- NOTE | 2016-11-10 08:08 | CP.PCM.PN ---
<Karey MerrittHeidysilvino - Last Filed: 11/10/16 08:05> Subjective - Date & Time of Evaluation Date of Evaluation: 11/10/16 Time of Evaluation: 08:05 - Subjective Subjective: Surgery: Dr. Taylor Patient doing well today. Denies pain to the rectal area. Denies f/c. Tolerating diet. d/c planning. Objective - Vital Signs/Intake and Output Vital Signs (last 24 hours): Temp Pulse Resp BP Pulse Ox 98.8 F 107 H 20 100/65 99 11/10/16 00:00 11/10/16 00:00 11/10/16 00:00 11/10/16 00:00 11/10/16 00:00 Intake and Output: 11/10/16 11/10/16 06:59 18:59 Intake Total 1010 Output Total 650 Balance 360 - Medications Medications: Current Medications Diphenhydramine HCl (Benadryl) 25 mg IVP Q2 PRN PRN Reason: Pain, severe (8-10) Last Admin: 11/10/16 06:30 Dose: 25 mg Gabapentin (Neurontin) 100 mg PO TID [facility] Last Admin: 11/09/16 18:03 Dose: 100 mg Hydromorphone HCl (Dilaudid) 2 mg IVP Q2 PRN PRN Reason: Pain, moderate (4-7) Last Admin: 11/10/16 06:31 Dose: 2 mg Cefazolin Sodium/Dextrose (Ancef Iv 1 Gm Duplex) 50 mls @ 100 mls/hr IVPB Q8H [facility] Last Admin: 11/10/16 02:31 Dose: 100 mls/hr Pantoprazole Sodium (Protonix Ec Tab) 40 mg PO DAILY [facility] Last Admin: 11/09/16 09:54 Dose: 40 mg Polyethylene Glycol (Miralax) 17 gm PO DAILY [facility] Last Admin: 11/09/16 09:53 Dose: Not Given Trazodone HCl (Desyrel) 50 mg PO HS [facility] Last Admin: 11/09/16 22:05 Dose: 50 mg - Labs Labs: 11/09/16 07:46 11/09/16 07:46 - Constitutional Appears: Non-toxic, No Acute Distress - Head Exam Head Exam: ATRAUMATIC, NORMOCEPHALIC - Eye Exam Eye Exam: EOMI, Normal appearance - ENT Exam ENT Exam: Mucous Membranes Moist - Respiratory Exam Respiratory Exam: NORMAL BREATHING PATTERN. absent: Respiratory Distress - Cardiovascular Exam Cardiovascular Exam: REGULAR RHYTHM. absent: Tachycardia - Rectal Exam Rectal Exam: Deferred - Extremities Exam Extremities Exam: Normal Inspection. absent: Calf Tenderness - Neurological Exam Neurological Exam: Alert, Awake, Oriented x3 - Psychiatric Exam Psychiatric exam: Normal Affect, Normal Mood Assessment and Plan - Assessment and Plan (Free Text) Assessment: 21 y/o male w/ Crohn's disease and multiple nitza-rectal and gluteal abscesses s/ p I&D Plan: -wound care Rx given to social workers -needs wound care MWF when discharged and as prescribed -cont abx per ID -medical management per primary team -will change packing today -further recs per Dr. Taylor AKite PGY1 <Temo Taylor - Last Filed: 11/12/16 15:18> Objective - Vital Signs/Intake and Output Vital Signs (last 24 hours): Temp Pulse Resp BP Pulse Ox 98.0 F 99 H 20 101/69 96 11/12/16 08:00 11/12/16 08:19 11/12/16 08:00 11/12/16 08:00 11/12/16 08:00 Intake and Output: 11/12/16 11/12/16 06:59 18:59 Intake Total 300 Output Total 600 Balance -300 - Medications Medications: Current Medications Diphenhydramine HCl (Benadryl) 25 mg IVP Q2 PRN PRN Reason: Pain, severe (8-10) Last Admin: 11/12/16 15:00 Dose: 25 mg Gabapentin (Neurontin) 100 mg PO TID [facility] Last Admin: 11/12/16 13:02 Dose: 100 mg Hydromorphone HCl (Dilaudid) 2 mg IVP Q2H PRN PRN Reason: Pain, severe (8-10) Last Admin: 11/12/16 15:00 Dose: 2 mg Cefazolin Sodium/Dextrose (Ancef Iv 1 Gm Duplex) 50 mls @ 100 mls/hr IVPB Q8H [facility] Last Admin: 11/12/16 11:30 Dose: 100 mls/hr Meclizine HCl (Antivert) 12.5 mg PO TID [facility] Last Admin: 11/12/16 13:02 Dose: 12.5 mg Pantoprazole Sodium (Protonix Ec Tab) 40 mg PO DAILY [facility] Last Admin: 11/12/16 09:01 Dose: 40 mg Trazodone HCl (Desyrel) 50 mg PO HS [facility] Last Admin: 11/11/16 21:37 Dose: 50 mg - Labs Labs: 11/11/16 07:58 11/11/16 07:58 Attending/Attestation - Attestation I have personally seen and examined this patient.: Yes I have fully participated in the care of the patient.: Yes I have reviewed all pertinent clinical information, including history, physical exam and plan: Yes Notes (Text): 11/12/16 15:17 Pt was seen and examined at bedside on 11/10/16 Agree with above note and assessment. DC plan F.u as out pt.
--- NOTE | 2016-11-10 08:26 | CP.PCM.PN ---
<Rita Ortiz - Last Filed: 11/10/16 08:21> Subjective - Date & Time of Evaluation Date of Evaluation: 11/10/16 Time of Evaluation: 07:00 - Subjective Subjective: PGY2 Medicine Note - Dr. Eric Barrett's service: Patient seen and examined at bedside this AM. Patient reports continuous stool production into his ostomy bag. He says he is not eating that much. Patient says pain is controlled with dilaudid. Patient says plastic surgeon, Dr. Nova saw him and said he is probably ready for skin grafts. Patient denies fever, chills, chest pain, SOB, nausea, vomiting, dysuria. Objective - Vital Signs/Intake and Output Vital Signs (last 24 hours): Temp Pulse Resp BP Pulse Ox 98.8 F 107 H 20 100/65 99 11/10/16 00:00 11/10/16 00:00 11/10/16 00:00 11/10/16 00:00 11/10/16 00:00 Intake and Output: 11/10/16 11/10/16 06:59 18:59 Intake Total 1010 Output Total 650 Balance 360 - Medications Medications: Current Medications Diphenhydramine HCl (Benadryl) 25 mg IVP Q2 PRN PRN Reason: Pain, severe (8-10) Last Admin: 11/10/16 06:30 Dose: 25 mg Gabapentin (Neurontin) [address] [facility] Last Admin: 11/09/16 18:03 Dose: 100 mg Hydromorphone HCl (Dilaudid) 2 mg IVP Q2 PRN PRN Reason: Pain, moderate (4-7) Last Admin: 11/10/16 06:31 Dose: 2 mg Cefazolin Sodium/Dextrose (Ancef Iv 1 Gm Duplex) 50 mls @ 100 mls/hr IVPB Q8H [facility] Last Admin: 11/10/16 02:31 Dose: 100 mls/hr Pantoprazole Sodium (Protonix Ec Tab) [address] [facility] Last Admin: 11/09/16 09:54 Dose: 40 mg Polyethylene Glycol (Miralax) [address] [facility] Last Admin: 11/09/16 09:53 Dose: Not Given Trazodone HCl (Desyrel) [address] [facility] Last Admin: 11/09/16 22:05 Dose: 50 mg - Labs Labs: 11/09/16 07:46 11/09/16 07:46 - Constitutional Appears: Non-toxic, No Acute Distress - Head Exam Head Exam: NORMAL INSPECTION - Eye Exam Eye Exam: EOMI - ENT Exam ENT Exam: Mucous Membranes Moist - Respiratory Exam Respiratory Exam: Clear to Ausculation Bilateral, NORMAL BREATHING PATTERN. absent: Rales, Rhonchi, Wheezes - Cardiovascular Exam Cardiovascular Exam: REGULAR RHYTHM, +S1, +S2. absent: Gallop, Rubs, Murmur - GI/Abdominal Exam GI & Abdominal Exam: Soft, Normal Bowel Sounds. absent: Tenderness Additional comments: ostomy bag filled with stool - Neurological Exam Neurological Exam: Alert, Oriented x3 - Psychiatric Exam Psychiatric exam: Normal Affect, Normal Mood - Skin Skin Exam: Normal Color, Warm Assessment and Plan - Assessment and Plan (Free Text) Assessment: (1) Abscess Assessment & Plan: Perirectal Abscess 11/10: Patient says the plastic surgeon told him he is ready for skin grafts. F/U with Dr. Lewis to see when this will be. Patient needs home wound care MWF 11/07: IGG is elevated at over 1646, the other antibody levels are wnl. Patient reports more abscesses found. He will need further work up as outpatient to find reasons for his reoccuring abscess. 11/06: Patient went to the OR today for ID with riya Fayeuin studies pending. 11/05: POD #13 Awaiting plastic surgery consult per Dr. Eric Barrett 11/04 POD#12 I&D of abscess with surgeon Dr. Taylor. Wound care nurse referral. Wound culture Klebsiella pneumonia sensitive for Ancef. Ancef 1g IV q8H started 10/22/16 As per surgery team, patient will need Keflex po 7-10 days upon discharge. Dilaudid 2mg IV q2H PRN. Per Dr. Barrett, still need to wait for plastic surgery referral. Status: Acute (2) Intractable abdominal pain Assessment & Plan: Dilauded 2mg for pain prn. Status: Acute (3) Constipation Assessment & Plan: Resolved Miralax 17gm stopped Status: Acute (4) Prophylactic measure Assessment & Plan: Protonix 40mg Dresdyl 20mg Status: Acute <Osvaldo Barrett S - Last Filed: 11/11/16 19:35> Objective - Vital Signs/Intake and Output Vital Signs (last 24 hours): Temp Pulse Resp BP Pulse Ox 98.0 F 106 H 20 114/80 100 11/11/16 16:00 11/11/16 16:00 11/11/16 16:00 11/11/16 16:00 11/11/16 16:00 - Medications Medications: Current Medications Diphenhydramine HCl (Benadryl) 25 mg IVP Q2 PRN PRN Reason: Pain, severe (8-10) Last Admin: 11/11/16 18:56 Dose: 25 mg Gabapentin (Neurontin) 100 mg PO TID [facility] Last Admin: 11/11/16 17:18 Dose: 100 mg Hydromorphone HCl (Dilaudid) 2 mg IVP Q2H PRN PRN Reason: Pain, severe (8-10) Last Admin: 11/11/16 16:17 Dose: 2 mg Hydromorphone HCl (Dilaudid) 1 mg IVP STAT [facility] Stop: 11/11/16 19:34 Cefazolin Sodium/Dextrose (Ancef Iv 1 Gm Duplex) 50 mls @ 100 mls/hr IVPB Q8H [facility] Last Admin: 11/11/16 18:57 Dose: 100 mls/hr Pantoprazole Sodium (Protonix Ec Tab) [address] [facility] Last Admin: 11/11/16 09:14 Dose: 40 mg Trazodone HCl (Desyrel) [address] [facility] Last Admin: 11/10/16 22:01 Dose: 50 mg - Labs Labs: 11/11/16 07:58 11/11/16 07:58 Assessment and Plan (1) Abscess Status: Acute (2) Constipation Status: Acute (3) Encounter for wound care Status: Acute (4) Intractable abdominal pain Status: Acute (5) Prophylactic measure Status: Acute (6) Crohn disease Status: Acute (7) Foreign body Status: Acute (8) Rectal fistula Status: Acute (9) Rectal pain Status: Acute Attending/Attestation - Attestation I have personally seen and examined this patient.: Yes I have fully participated in the care of the patient.: Yes I have reviewed all pertinent clinical information, including history, physical exam and plan: Yes Notes (Text): case seen and discussed with staff and resident and accepted mx
[2016-11-10 08:42] LABS: BASO # 0.1 K/uL (0.0-0.2); MEAN PLATELET VOLUME 8.1 fL (7.2-11.7); MONO # 0.7 K/uL (0.0-0.8); MONO % 6.8 % (0.0-10.0)
[2016-11-10 08:49] LABS: BASO % 0.8 % (0.0-2.0); EOS # 0.7 K/uL (0.0-0.7); EOS % 6.3 % (0.0-4.0); HEMATOCRIT 28.2 % (35.0-51.0); LYMPH # 3.3 K/uL (1.0-4.3); LYMPH % 30.8 % (20.0-40.0); MEAN CORPUSCULAR HEMOGLOBIN 20.4 pg (27.0-31.0); MEAN CORPUSCULAR HGB CONC 30.9 g/dL (33.0-37.0); RED CELL DISTRIBUTION WIDTH 15.8 % (11.5-14.5); WHITE BLOOD COUNT 10.6 K/uL (4.8-10.8)
[2016-11-10 08:54] LABS: CHLORIDE 94 mmol/L (98-107)
[2016-11-10 08:55] LABS: SODIUM 137 mmol/L (132-148)
[2016-11-10 08:57] LABS: ALB/GLOB RATIO 0.9 (1.0-2.1); ALKALINE PHOSPHATASE 103 U/L (38-126); AST/SGOT 22 U/L (17-59); BILIRUBIN,TOTAL 0.2 mg/dL (0.2-1.3); CARBON DIOXIDE 28 mmol/L (22-30); GFR AFRICAN-AMERICAN > 60; TOTAL PROTEIN 7.4 g/dL (6.3-8.3)
[2016-11-10 08:58] LABS: ALT/SGPT 11 U/L (21-72); BLOOD UREA NITROGEN 5 mg/dL (9-20); CALCIUM 8.8 mg/dl (8.6-10.4); GLUCOSE,RANDOM 86 mg/dL (75-110)
[2016-11-10] MEDS: Pantoprazole 40 mg EC Tab PO SCH (11:41)
--- NOTE | 2016-11-10 16:57 | CP.PCM.PN ---
Subjective - Date & Time of Evaluation Date of Evaluation: 11/10/16 Time of Evaluation: 09:00 - Subjective Subjective: Clinically same Objective - Vital Signs/Intake and Output Vital Signs (last 24 hours): Temp Pulse Resp BP Pulse Ox 98.3 F 101 H 20 101/70 96 11/10/16 08:00 11/10/16 08:00 11/10/16 08:00 11/10/16 08:00 11/10/16 08:00 Intake and Output: 11/10/16 11/10/16 06:59 18:59 Intake Total 1010 290 Output Total 650 800 Balance 360 -510 - Medications Medications: Current Medications Diphenhydramine HCl (Benadryl) 25 mg IVP Q2 PRN PRN Reason: Pain, severe (8-10) Last Admin: 11/10/16 16:34 Dose: 25 mg Gabapentin (Neurontin) 100 mg PO TID [facility] Last Admin: 11/10/16 15:09 Dose: 100 mg Hydromorphone HCl (Dilaudid) 2 mg IVP Q2 PRN PRN Reason: Pain, moderate (4-7) Last Admin: 11/10/16 16:36 Dose: 2 mg Cefazolin Sodium/Dextrose (Ancef Iv 1 Gm Duplex) 50 mls @ 100 mls/hr IVPB Q8H [facility] Last Admin: 11/10/16 11:41 Dose: 100 mls/hr Pantoprazole Sodium (Protonix Ec Tab) 40 mg PO DAILY [facility] Last Admin: 11/10/16 11:41 Dose: 40 mg Trazodone HCl (Desyrel) 50 mg PO HS [facility] Last Admin: 11/09/16 22:05 Dose: 50 mg - Labs Labs: 11/10/16 08:30 11/10/16 08:30 - Constitutional Appears: Well - Head Exam Head Exam: ATRAUMATIC, NORMAL INSPECTION, NORMOCEPHALIC - Eye Exam Eye Exam: EOMI, Normal appearance, PERRL Pupil Exam: NORMAL ACCOMODATION, PERRL - ENT Exam ENT Exam: Mucous Membranes Moist, Normal Exam - Neck Exam Neck Exam: Full ROM, Normal Inspection. absent: Lymphadenopathy - Respiratory Exam Respiratory Exam: Decreased Breath Sounds - Cardiovascular Exam Cardiovascular Exam: REGULAR RHYTHM, +S1, +S2 - GI/Abdominal Exam GI & Abdominal Exam: Soft, Diminished Bowel Sounds - Rectal Exam Rectal Exam: Deferred Assessment and Plan (1) Abscess Status: Acute (2) Constipation Status: Acute (3) Encounter for wound care Status: Acute (4) Intractable abdominal pain Status: Acute (5) Prophylactic measure Status: Acute (6) Crohn disease Status: Acute (7) Foreign body Status: Acute (8) Rectal fistula Status: Acute (9) Rectal pain Status: Acute
[2016-11-11] MEDS: DiphenhydrAMINE 50 mg/ml Inj IVP PRN ×9 (01:41→22:33)
[2016-11-11] MEDS: ceFAZolin IV 1 gm in Dextrose 50 ML IVPB SCH ×3 (03:20→18:57)
[2016-11-11 08:12] LABS: BASO # 0.1 K/uL (0.0-0.2); BASO % 0.7 % (0.0-2.0); EOS # 0.6 K/uL (0.0-0.7); HEMATOCRIT 30.5 % (35.0-51.0); LYMPH # 3.1 K/uL (1.0-4.3); LYMPH % 33.4 % (20.0-40.0); MEAN CELL VOLUME 66.2 fL (80.0-94.0); MEAN CORPUSCULAR HEMOGLOBIN 20.3 pg (27.0-31.0); MEAN CORPUSCULAR HGB CONC 30.6 g/dL (33.0-37.0); MEAN PLATELET VOLUME 8.2 fL (7.2-11.7); MONO # 0.6 K/uL (0.0-0.8); MONO % 6.9 % (0.0-10.0); RED CELL DISTRIBUTION WIDTH 16.1 % (11.5-14.5); WHITE BLOOD COUNT 9.4 K/uL (4.8-10.8)
[2016-11-11 08:21] LABS: CHLORIDE 92 mmol/L (98-107); POTASSIUM 3.8 mmol/L (3.6-5.2); SODIUM 138 mmol/L (132-148)
[2016-11-11 08:23] LABS: ALB/GLOB RATIO 0.9 (1.0-2.1); ALKALINE PHOSPHATASE 108 U/L (38-126); ALT/SGPT 7 U/L (21-72); AST/SGOT 19 U/L (17-59); BILIRUBIN,TOTAL 0.1 mg/dL (0.2-1.3); BLOOD UREA NITROGEN 9 mg/dL (9-20); CARBON DIOXIDE 30 mmol/L (22-30); GFR AFRICAN-AMERICAN > 60; TOTAL PROTEIN 7.7 g/dL (6.3-8.3)
[2016-11-11 08:24] LABS: CALCIUM 8.4 mg/dl (8.6-10.4); GLUCOSE,RANDOM 73 mg/dL (75-110)
[2016-11-11] MEDS: Pantoprazole 40 mg EC Tab PO SCH (09:14)
--- NOTE | 2016-11-11 11:06 | CP.PCM.PN ---
<AngelRita Blair - Last Filed: 11/11/16 11:02> Subjective - Date & Time of Evaluation Date of Evaluation: 11/11/16 Time of Evaluation: 06:55 - Subjective Subjective: PGY2 Medicine Note - Dr. Eric Barrett's service: Patient seen and examined at bedside this AM. Patient reports abdominal pain that resolves with dilaudid. Patient denies fever, chills, chest pain, SOB, nausea, vomiting, diarrhea, constipation, dysuria. Patient says he walks around the floors every day. Objective - Vital Signs/Intake and Output Vital Signs (last 24 hours): Temp Pulse Resp BP Pulse Ox 98.0 F 90 20 102/76 100 11/11/16 08:49 11/11/16 08:49 11/11/16 08:49 11/11/16 08:49 11/11/16 08:49 Intake and Output: 11/11/16 11/11/16 06:59 18:59 Intake Total 550 Balance 550 - Medications Medications: Current Medications Diphenhydramine HCl (Benadryl) 25 mg IVP Q2 PRN PRN Reason: Pain, severe (8-10) Last Admin: 11/11/16 09:12 Dose: 25 mg Gabapentin (Neurontin) 100 mg PO TID [facility] Last Admin: 11/11/16 09:12 Dose: 100 mg Hydromorphone HCl (Dilaudid) 2 mg IVP Q2 PRN PRN Reason: Pain, moderate (4-7) Last Admin: 11/11/16 09:12 Dose: 2 mg Cefazolin Sodium/Dextrose (Ancef Iv 1 Gm Duplex) 50 mls @ 100 mls/hr IVPB Q8H [facility] Last Admin: 11/11/16 03:20 Dose: 100 mls/hr Pantoprazole Sodium (Protonix Ec Tab) 40 mg PO DAILY [facility] Last Admin: 11/11/16 09:14 Dose: 40 mg Trazodone HCl (Desyrel) 50 mg PO HS [facility] Last Admin: 11/10/16 22:01 Dose: 50 mg - Labs Labs: 11/11/16 07:58 11/11/16 07:58 - Constitutional Appears: Non-toxic, No Acute Distress - Head Exam Head Exam: NORMAL INSPECTION - Eye Exam Eye Exam: EOMI - ENT Exam ENT Exam: Mucous Membranes Moist - Respiratory Exam Respiratory Exam: Clear to Ausculation Bilateral, NORMAL BREATHING PATTERN. absent: Rales, Rhonchi, Wheezes - Cardiovascular Exam Cardiovascular Exam: REGULAR RHYTHM, +S1, +S2 - GI/Abdominal Exam GI & Abdominal Exam: Soft, Normal Bowel Sounds. absent: Tenderness Additional comments: ostomy bag - Extremities Exam Extremities Exam: Normal Capillary Refill. absent: Pedal Edema - Neurological Exam Neurological Exam: Alert, Oriented x3 - Psychiatric Exam Psychiatric exam: Normal Affect, Normal Mood - Skin Skin Exam: Normal Color, Warm Assessment and Plan - Assessment and Plan (Free Text) Assessment: (1) Abscess Assessment & Plan: Perirectal Abscess 11/11: Patient's parents will not be home until tomorrow afternoon. Patient needs someone to be able to take care of him. It would be unsafe to discharge him to an empty home. Patient to be discharged once his parents are home. Patient will be given Keflex, ultracet and toradol. Scripts for wound care are in the chart from surgery. 11/10: Patient says the plastic surgeon told him he is ready for skin grafts. F/U with Dr. Lewis to see when this will be. Patient needs home wound care MWF 11/07: IGG is elevated at over 1646, the other antibody levels are wnl. Patient reports more abscesses found. He will need further work up as outpatient to find reasons for his reoccuring abscess. 11/06: Patient went to the OR today for ID with Neyda, immunoglobuin studies pending. 11/05: POD #13 Awaiting plastic surgery consult per Dr. Eric Barrett 11/04 POD#12 I&D of abscess with surgeon Dr. Taylor. Wound care nurse referral. Wound culture Klebsiella pneumonia sensitive for Ancef. Ancef 1g IV q8H started 10/22/16 As per surgery team, patient will need Keflex po 7-10 days upon discharge. Dilaudid 2mg IV q2H PRN. Per Dr. Barrett, still need to wait for plastic surgery referral. Status: Acute (2) Intractable abdominal pain Assessment & Plan: Dilauded 2mg for pain prn. Status: Acute (3) Constipation Assessment & Plan: Resolved Miralax 17gm stopped Status: Acute (4) Prophylactic measure Assessment & Plan: Protonix 40mg Dresdyl 20mg Status: Acute <Osvaldo Barrett S - Last Filed: 11/11/16 19:35> Objective - Vital Signs/Intake and Output Vital Signs (last 24 hours): Temp Pulse Resp BP Pulse Ox 98.0 F 106 H 20 114/80 100 11/11/16 16:00 11/11/16 16:00 11/11/16 16:00 11/11/16 16:00 11/11/16 16:00 - Medications Medications: Current Medications Diphenhydramine HCl (Benadryl) 25 mg IVP Q2 PRN PRN Reason: Pain, severe (8-10) Last Admin: 11/11/16 18:56 Dose: 25 mg Gabapentin (Neurontin) 100 mg PO TID [facility] Last Admin: 11/11/16 17:18 Dose: 100 mg Hydromorphone HCl (Dilaudid) 2 mg IVP Q2H PRN PRN Reason: Pain, severe (8-10) Last Admin: 11/11/16 16:17 Dose: 2 mg Hydromorphone HCl (Dilaudid) 1 mg IVP STAT STA Stop: 11/11/16 19:34 Cefazolin Sodium/Dextrose (Ancef Iv 1 Gm Duplex) 50 mls @ 100 mls/hr IVPB Q8H [facility] Last Admin: 11/11/16 18:57 Dose: 100 mls/hr Pantoprazole Sodium (Protonix Ec Tab) 40 mg PO DAILY [facility] Last Admin: 11/11/16 09:14 Dose: 40 mg Trazodone HCl (Desyrel) 50 mg PO HS [facility] Last Admin: 11/10/16 22:01 Dose: 50 mg - Labs Labs: 11/11/16 07:58 11/11/16 07:58 Assessment and Plan (1) Abscess Status: Acute (2) Constipation Status: Acute (3) Encounter for wound care Status: Acute (4) Intractable abdominal pain Status: Acute (5) Prophylactic measure Status: Acute (6) Crohn disease Status: Acute (7) Foreign body Status: Acute (8) Rectal fistula Status: Acute (9) Rectal pain Status: Acute Attending/Attestation - Attestation I have personally seen and examined this patient.: Yes I have fully participated in the care of the patient.: Yes I have reviewed all pertinent clinical information, including history, physical exam and plan: Yes Notes (Text): 11/11/16 19:34 case seen and discused ith staff and resident
[2016-11-11] MEDS: HYDROmorphone 0.5 mg/0.5 ml ISec IVP PRN ×2 (13:30→18:58)
[2016-11-11] MEDS ORDERED: HYDROmorphone 1 mg/ml ISec IVP ONE (13:53)
--- NOTE | 2016-11-11 16:35 | CP.PCM.PN ---
Subjective - Date & Time of Evaluation Date of Evaluation: 11/11/16 Time of Evaluation: 09:00 - Subjective Subjective: clinically same Objective - Vital Signs/Intake and Output Vital Signs (last 24 hours): Temp Pulse Resp BP Pulse Ox 98.0 F 106 H 20 114/80 100 11/11/16 16:00 11/11/16 16:00 11/11/16 16:00 11/11/16 16:00 11/11/16 16:00 Intake and Output: 11/11/16 11/11/16 06:59 18:59 Intake Total 550 Balance 550 - Medications Medications: Current Medications Diphenhydramine HCl (Benadryl) 25 mg IVP Q2 PRN PRN Reason: Pain, severe (8-10) Last Admin: 11/11/16 16:15 Dose: 25 mg Gabapentin (Neurontin) 100 mg PO TID [facility] Last Admin: 11/11/16 15:04 Dose: 100 mg Hydromorphone HCl (Dilaudid) 0.5 mg IVP Q3 PRN PRN Reason: FOR MODERATE PAIN Last Admin: 11/11/16 13:30 Dose: 0.5 mg Hydromorphone HCl (Dilaudid) 2 mg IVP Q2H PRN PRN Reason: Pain, severe (8-10) Last Admin: 11/11/16 16:17 Dose: 2 mg Cefazolin Sodium/Dextrose (Ancef Iv 1 Gm Duplex) 50 mls @ 100 mls/hr IVPB Q8H [facility] Last Admin: 11/11/16 11:12 Dose: 100 mls/hr Pantoprazole Sodium (Protonix Ec Tab) 40 mg PO DAILY [facility] Last Admin: 11/11/16 09:14 Dose: 40 mg Trazodone HCl (Desyrel) 50 mg PO HS [facility] Last Admin: 11/10/16 22:01 Dose: 50 mg - Labs Labs: 11/11/16 07:58 11/11/16 07:58 - Constitutional Appears: Well - Head Exam Head Exam: ATRAUMATIC, NORMAL INSPECTION, NORMOCEPHALIC - Eye Exam Eye Exam: EOMI, Normal appearance, PERRL Pupil Exam: NORMAL ACCOMODATION, PERRL - ENT Exam ENT Exam: Mucous Membranes Moist, Normal Exam - Neck Exam Neck Exam: Full ROM, Normal Inspection. absent: Lymphadenopathy - Respiratory Exam Respiratory Exam: Decreased Breath Sounds - Cardiovascular Exam Cardiovascular Exam: REGULAR RHYTHM, +S1, +S2 - GI/Abdominal Exam GI & Abdominal Exam: Soft, Diminished Bowel Sounds - Rectal Exam Rectal Exam: Deferred Assessment and Plan (1) Abscess Status: Acute (2) Constipation Status: Acute (3) Encounter for wound care Status: Acute (4) Intractable abdominal pain Status: Acute (5) Prophylactic measure Status: Acute (6) Crohn disease Status: Acute (7) Foreign body Status: Acute (8) Rectal fistula Status: Acute (9) Rectal pain Status: Acute
[2016-11-11] MEDS ORDERED: HYDROmorphone 1 mg/ml ISec IVP STA (19:33)
[2016-11-12] MEDS: DiphenhydrAMINE 50 mg/ml Inj IVP PRN ×11 (00:58→23:55)
[2016-11-12] MEDS: ceFAZolin IV 1 gm in Dextrose 50 ML IVPB SCH ×3 (03:16→19:17)
[2016-11-12] MEDS: Pantoprazole 40 mg EC Tab PO SCH (09:01)
[2016-11-12] MEDS ORDERED: HYDROmorphone 0.5 mg/0.5 ml ISec IVP PRN (12:03)
--- NOTE | 2016-11-12 12:03 | CP.PCM.PN ---
<AngelRita H - Last Filed: 11/12/16 11:59> Subjective - Date & Time of Evaluation Date of Evaluation: 11/12/16 Time of Evaluation: 07:55 - Subjective Subjective: PGY2 Medicine Note - Dr. Eric Barrett's service: Patient seen and examined at bedside this AM. Patient reports abdominal pain that resolves with dilaudid. Patient denies fever, chills, chest pain, SOB, nausea, vomiting, diarrhea, constipation, dysuria. Patient says he walks around the floors every day, but nurses say he barely gets out of bed. Objective - Vital Signs/Intake and Output Vital Signs (last 24 hours): Temp Pulse Resp BP Pulse Ox 98.0 F 99 H 20 101/69 96 11/12/16 08:00 11/12/16 08:19 11/12/16 08:00 11/12/16 08:00 11/12/16 08:00 Intake and Output: 11/12/16 11/12/16 06:59 18:59 Intake Total 300 Output Total 600 Balance -300 - Medications Medications: Current Medications Diphenhydramine HCl (Benadryl) 25 mg IVP Q2 PRN PRN Reason: Pain, severe (8-10) Last Admin: 11/12/16 10:47 Dose: 25 mg Gabapentin (Neurontin) 100 mg PO TID [facility] Last Admin: 11/12/16 09:01 Dose: 100 mg Hydromorphone HCl (Dilaudid) 2 mg IVP Q2H PRN PRN Reason: Pain, severe (8-10) Last Admin: 11/12/16 10:47 Dose: 2 mg Cefazolin Sodium/Dextrose (Ancef Iv 1 Gm Duplex) 50 mls @ 100 mls/hr IVPB Q8H [facility] Last Admin: 11/12/16 03:16 Dose: 100 mls/hr Meclizine HCl (Antivert) 12.5 mg PO TID [facility] Last Admin: 11/12/16 10:53 Dose: 12.5 mg Pantoprazole Sodium (Protonix Ec Tab) 40 mg PO DAILY [facility] Last Admin: 11/12/16 09:01 Dose: 40 mg Trazodone HCl (Desyrel) 50 mg PO HS [facility] Last Admin: 11/11/16 21:37 Dose: 50 mg - Labs Labs: 11/11/16 07:58 11/11/16 07:58 - Constitutional Appears: Non-toxic, No Acute Distress - Head Exam Head Exam: NORMAL INSPECTION - Eye Exam Eye Exam: EOMI - ENT Exam ENT Exam: Mucous Membranes Moist - Respiratory Exam Respiratory Exam: Clear to Ausculation Bilateral, NORMAL BREATHING PATTERN. absent: Rales, Rhonchi, Wheezes - Cardiovascular Exam Cardiovascular Exam: REGULAR RHYTHM, +S1, +S2. absent: Gallop, Rubs, Murmur - GI/Abdominal Exam GI & Abdominal Exam: Soft, Tenderness, Normal Bowel Sounds. absent: Firm, Guarding Additional comments: ostomy - Extremities Exam Extremities Exam: Normal Capillary Refill. absent: Pedal Edema - Neurological Exam Neurological Exam: Alert, Oriented x3 - Psychiatric Exam Psychiatric exam: Normal Affect, Normal Mood - Skin Skin Exam: Normal Color, Warm Assessment and Plan - Assessment and Plan (Free Text) Assessment: (1) Perirectal Abscess 11/12: Patient now says his parents will not be home until Thursday afternoon. Patient cannot get TCU through his insurance per case management. Patient refuses to go to [facility]. Will discuss with Dr. Eric Barrett 11/11: Patient's parents will not be home until tomorrow afternoon. Patient needs someone to be able to take care of him. It would be unsafe to discharge him to an empty home. Patient to be discharged once his parents are home. Patient will be given Keflex, ultracet and toradol. Scripts for wound care are in the chart from surgery. 11/10: Patient says the plastic surgeon told him he is ready for skin grafts. F/U with Dr. Lewis to see when this will be. Patient needs home wound care MWF 11/07: IGG is elevated at over 1646, the other antibody levels are wnl. Patient reports more abscesses found. He will need further work up as outpatient to find reasons for his reoccuring abscess. 11/06: Patient went to the OR today for ID with Neyda immunoglobuin studies pending. 11/05: POD #13 Awaiting plastic surgery consult per Dr. Eric Barrett 11/04 POD#12 I&D of abscess with surgeon Dr. Taylor. Wound care nurse referral. Wound culture Klebsiella pneumonia sensitive for Ancef. Ancef 1g IV q8H started 10/22/16 As per surgery team, patient will need Keflex po 7-10 days upon discharge. Dilaudid 2mg IV q2H PRN. Per Dr. Barrett, still need to wait for plastic surgery referral. Status: Acute (2) Intractable abdominal pain Assessment & Plan: Dilauded 0.5mg IVP Q3H for pain prn. Status: Acute (3) Constipation Assessment & Plan: Resolved Miralax 17gm stopped Status: Acute (4) Prophylactic measure Assessment & Plan: Protonix 40mg Dresdyl 20mg Status: Acute <Osvaldo Barrett S - Last Filed: 11/12/16 22:39> Objective - Vital Signs/Intake and Output Vital Signs (last 24 hours): Temp Pulse Resp BP Pulse Ox 97.8 F 99 H 20 104/75 98 11/12/16 15:30 11/12/16 15:37 11/12/16 15:30 11/12/16 15:37 11/12/16 15:37 - Medications Medications: Current Medications Diphenhydramine HCl (Benadryl) 25 mg IVP Q2 PRN PRN Reason: Pain, severe (8-10) Last Admin: 11/12/16 21:39 Dose: 25 mg Gabapentin (Neurontin) 100 mg PO TID [facility] Last Admin: 11/12/16 17:23 Dose: 100 mg Hydromorphone HCl (Dilaudid) 2 mg IVP Q2H PRN PRN Reason: Pain, severe (8-10) Last Admin: 11/12/16 21:40 Dose: 2 mg Cefazolin Sodium/Dextrose (Ancef Iv 1 Gm Duplex) 50 mls @ 100 mls/hr IVPB Q8H [facility] Last Admin: 11/12/16 19:17 Dose: 100 mls/hr Meclizine HCl (Antivert) 12.5 mg PO TID [facility] Last Admin: 11/12/16 17:24 Dose: 12.5 mg Pantoprazole Sodium (Protonix Ec Tab) 40 mg PO DAILY [facility] Last Admin: 11/12/16 09:01 Dose: 40 mg Trazodone HCl (Desyrel) 50 mg PO HS [facility] Last Admin: 11/12/16 21:39 Dose: 50 mg - Labs Labs: 11/11/16 07:58 11/11/16 07:58 Assessment and Plan (1) Abscess Status: Acute (2) Constipation Status: Acute (3) Encounter for wound care Status: Acute (4) Intractable abdominal pain Status: Acute (5) Prophylactic measure Status: Acute (6) Crohn disease Status: Acute (7) Foreign body Status: Acute (8) Rectal fistula Status: Acute (9) Rectal pain Status: Acute Attending/Attestation - Attestation I have personally seen and examined this patient.: Yes I have fully participated in the care of the patient.: Yes I have reviewed all pertinent clinical information, including history, physical exam and plan: Yes Notes (Text): 11/12/16 22:39 case seen and disvcussed with staff and resident mx as agreed
--- NOTE | 2016-11-12 17:44 | CP.PCM.PN ---
Subjective - Date & Time of Evaluation Date of Evaluation: 11/12/16 Time of Evaluation: 09:00 - Subjective Subjective: Clinically same Objective - Vital Signs/Intake and Output Vital Signs (last 24 hours): Temp Pulse Resp BP Pulse Ox 97.8 F 99 H 20 104/75 98 11/12/16 15:30 11/12/16 15:37 11/12/16 15:30 11/12/16 15:37 11/12/16 15:37 Intake and Output: 11/12/16 11/12/16 06:59 18:59 Intake Total 300 Output Total 600 Balance -300 - Medications Medications: Current Medications Diphenhydramine HCl (Benadryl) 25 mg IVP Q2 PRN PRN Reason: Pain, severe (8-10) Last Admin: 11/12/16 17:24 Dose: 25 mg Gabapentin (Neurontin) 100 mg PO TID [facility] Last Admin: 11/12/16 17:23 Dose: 100 mg Hydromorphone HCl (Dilaudid) 2 mg IVP Q2H PRN PRN Reason: Pain, severe (8-10) Last Admin: 11/12/16 17:25 Dose: 2 mg Cefazolin Sodium/Dextrose (Ancef Iv 1 Gm Duplex) 50 mls @ 100 mls/hr IVPB Q8H [facility] Last Admin: 11/12/16 11:30 Dose: 100 mls/hr Meclizine HCl (Antivert) 12.5 mg PO TID [facility] Last Admin: 11/12/16 17:24 Dose: 12.5 mg Pantoprazole Sodium (Protonix Ec Tab) 40 mg PO DAILY [facility] Last Admin: 11/12/16 09:01 Dose: 40 mg Trazodone HCl (Desyrel) 50 mg PO HS [facility] Last Admin: 11/11/16 21:37 Dose: 50 mg - Labs Labs: 11/11/16 07:58 11/11/16 07:58 - Constitutional Appears: Well - Head Exam Head Exam: ATRAUMATIC, NORMAL INSPECTION, NORMOCEPHALIC - Eye Exam Eye Exam: EOMI, Normal appearance, PERRL Pupil Exam: NORMAL ACCOMODATION, PERRL - ENT Exam ENT Exam: Mucous Membranes Moist, Normal Exam - Neck Exam Neck Exam: Full ROM, Normal Inspection. absent: Lymphadenopathy - Respiratory Exam Respiratory Exam: Decreased Breath Sounds - Cardiovascular Exam Cardiovascular Exam: REGULAR RHYTHM, +S1, +S2 - GI/Abdominal Exam GI & Abdominal Exam: Soft, Diminished Bowel Sounds - Rectal Exam Rectal Exam: Deferred Assessment and Plan (1) Abscess Status: Acute (2) Constipation Status: Acute (3) Encounter for wound care Status: Acute (4) Intractable abdominal pain Status: Acute (5) Prophylactic measure Status: Acute (6) Crohn disease Status: Acute (7) Foreign body Status: Acute (8) Rectal fistula Status: Acute (9) Rectal pain Status: Acute
--- NOTE | 2016-11-12 17:50 | CP.PCM.PN ---
Subjective - Date & Time of Evaluation Date of Evaluation: 11/12/16 Time of Evaluation: 09:00 - Subjective Subjective: wound care in progress rx renewed Objective - Vital Signs/Intake and Output Vital Signs (last 24 hours): Temp Pulse Resp BP Pulse Ox 97.8 F 99 H 20 104/75 98 11/12/16 15:30 11/12/16 15:37 11/12/16 15:30 11/12/16 15:37 11/12/16 15:37 Intake and Output: 11/12/16 11/12/16 06:59 18:59 Intake Total 300 Output Total 600 Balance -300 - Medications Medications: Current Medications Diphenhydramine HCl (Benadryl) 25 mg IVP Q2 PRN PRN Reason: Pain, severe (8-10) Last Admin: 11/12/16 17:24 Dose: 25 mg Gabapentin (Neurontin) 100 mg PO TID [facility] Last Admin: 11/12/16 17:23 Dose: 100 mg Hydromorphone HCl (Dilaudid) 2 mg IVP Q2H PRN PRN Reason: Pain, severe (8-10) Last Admin: 11/12/16 17:25 Dose: 2 mg Cefazolin Sodium/Dextrose (Ancef Iv 1 Gm Duplex) 50 mls @ 100 mls/hr IVPB Q8H [facility] Last Admin: 11/12/16 11:30 Dose: 100 mls/hr Meclizine HCl (Antivert) 12.5 mg PO TID [facility] Last Admin: 11/12/16 17:24 Dose: 12.5 mg Pantoprazole Sodium (Protonix Ec Tab) 40 mg PO DAILY [facility] Last Admin: 11/12/16 09:01 Dose: 40 mg Trazodone HCl (Desyrel) 50 mg PO HS [facility] Last Admin: 11/11/16 21:37 Dose: 50 mg - Labs Labs: 11/11/16 07:58 11/11/16 07:58 - Constitutional Appears: Non-toxic - Head Exam Head Exam: NORMOCEPHALIC - Eye Exam Eye Exam: absent: Scleral icterus - ENT Exam ENT Exam: Mucous Membranes Dry - Neck Exam Neck Exam: absent: Lymphadenopathy, Thyromegaly - Respiratory Exam Respiratory Exam: Decreased Breath Sounds, Clear to Ausculation Bilateral - Cardiovascular Exam Cardiovascular Exam: REGULAR RHYTHM - GI/Abdominal Exam GI & Abdominal Exam: Distended, Soft Assessment and Plan (1) Abscess Status: Acute (2) Encounter for wound care Status: Acute (3) Intractable abdominal pain Status: Acute (4) Crohn disease Status: Acute
[2016-11-13] MEDS: DiphenhydrAMINE 50 mg/ml Inj IVP PRN ×10 (01:53→21:40)
[2016-11-13] MEDS: ceFAZolin IV 1 gm in Dextrose 50 ML IVPB SCH ×3 (03:38→18:46)
--- NOTE | 2016-11-13 08:28 | CP.PCM.PN ---
<Elan Shields H - Last Filed: 11/13/16 19:39> Subjective - Date & Time of Evaluation Date of Evaluation: 11/13/16 Time of Evaluation: 10:45 - Subjective Subjective: Dr. Barrett service: Patient seen in room, he is complaining of pain that is chronic from freuqent surgeries. He says discharge would be diffacult for him because his parents are away from the home and there is no one at home. But he does say he can be discharged tomorrow morning. Objective - Vital Signs/Intake and Output Vital Signs (last 24 hours): Temp Pulse Resp BP Pulse Ox 98.3 F 88 20 104/67 100 11/13/16 08:00 11/13/16 08:00 11/13/16 08:00 11/13/16 08:00 11/13/16 08:00 Intake and Output: 11/13/16 11/13/16 06:59 18:59 Intake Total 250 200 Output Total 600 Balance -350 200 - Medications Medications: Current Medications Diphenhydramine HCl (Benadryl) 25 mg IVP Q2 PRN PRN Reason: Pain, severe (8-10) Last Admin: 11/13/16 07:54 Dose: 25 mg Gabapentin (Neurontin) 100 mg PO TID [facility] Last Admin: 11/12/16 17:23 Dose: 100 mg Hydromorphone HCl (Dilaudid) 2 mg IVP Q2H PRN PRN Reason: Pain, severe (8-10) Last Admin: 11/13/16 07:55 Dose: 2 mg Cefazolin Sodium/Dextrose (Ancef Iv 1 Gm Duplex) 50 mls @ 100 mls/hr IVPB Q8H [facility] Last Admin: 11/13/16 03:38 Dose: 100 mls/hr Meclizine HCl (Antivert) 12.5 mg PO TID [facility] Last Admin: 11/12/16 17:24 Dose: 12.5 mg Pantoprazole Sodium (Protonix Ec Tab) 40 mg PO DAILY [facility] Last Admin: 11/12/16 09:01 Dose: 40 mg Trazodone HCl (Desyrel) 50 mg PO HS [facility] Last Admin: 11/12/16 21:39 Dose: 50 mg - Labs Labs: 11/11/16 07:58 11/11/16 07:58 - Constitutional Appears: Non-toxic, No Acute Distress - Eye Exam Eye Exam: Normal appearance Pupil Exam: NORMAL ACCOMODATION - Respiratory Exam Respiratory Exam: Clear to Ausculation Bilateral. absent: Rhonchi, Wheezes - Cardiovascular Exam Cardiovascular Exam: REGULAR RHYTHM - GI/Abdominal Exam GI & Abdominal Exam: Soft, Normal Bowel Sounds. absent: Tenderness - Back Exam Back Exam: NORMAL INSPECTION - Skin Skin Exam: Normal Color, Warm Assessment and Plan - Assessment and Plan (Free Text) Assessment: Assessment: (1) Perirectal Abscess 11/13: Will discharge patient tomorrow morning. 11/12: Patient now says his parents will not be home until Thursday afternoon. Patient cannot get TCU through his insurance per case management. Patient refuses to go to [facility]. Will discuss with Dr. Eric Barrett 11/11: Patient's parents will not be home until tomorrow afternoon. Patient needs someone to be able to take care of him. It would be unsafe to discharge him to an empty home. Patient to be discharged once his parents are home. Patient will be given Keflex, ultracet and toradol. Scripts for wound care are in the chart from surgery. 11/10: Patient says the plastic surgeon told him he is ready for skin grafts. F/U with Dr. Lewis to see when this will be. Patient needs home wound care MWF 11/07: IGG is elevated at over 1646, the other antibody levels are wnl. Patient reports more abscesses found. He will need further work up as outpatient to find reasons for his reoccuring abscess. 11/06: Patient went to the OR today for ID with Neyda immunoglobuin studies pending. 315: POD #13 Awaiting plastic surgery consult per Dr. Eric Barrett 11/04 POD#12 I&D of abscess with surgeon Dr. Taylor. Wound care nurse referral. Wound culture Klebsiella pneumonia sensitive for Ancef. Ancef 1g IV q8H started 10/22/16 As per surgery team, patient will need Keflex po 7-10 days upon discharge. Dilaudid 2mg IV q2H PRN. Per Dr. Barrett, still need to wait for plastic surgery referral. Status: Acute (2) Intractable abdominal pain Assessment & Plan: Dilauded 0.5mg IVP Q3H for pain prn. Status: Acute (3) Constipation Assessment & Plan: Resolved Miralax 17gm stopped Status: Acute (4) Prophylactic measure Assessment & Plan: Protonix 40mg Dresdyl 20mg Status: Acute <Osvaldo Barrett - Last Filed: 11/14/16 17:44> Objective - Vital Signs/Intake and Output Vital Signs (last 24 hours): Temp Pulse Resp BP Pulse Ox 98.5 F 93 H 20 103/68 100 11/14/16 08:00 11/14/16 08:00 11/14/16 08:00 11/14/16 08:00 11/14/16 08:00 Intake and Output: 11/14/16 11/14/16 06:59 18:59 Intake Total 400 Balance 400 - Medications Medications: Current Medications Diphenhydramine HCl (Benadryl) 25 mg IVP Q2 PRN PRN Reason: Pain, severe (8-10) Last Admin: 11/14/16 16:47 Dose: 25 mg Gabapentin (Neurontin) 100 mg PO TID [facility] Last Admin: 11/14/16 14:44 Dose: 100 mg Hydromorphone HCl (Dilaudid) 2 mg IVP Q2H PRN PRN Reason: Pain, severe (8-10) Last Admin: 11/14/16 16:44 Dose: 2 mg Cefazolin Sodium/Dextrose (Ancef Iv 1 Gm Duplex) 50 mls @ 100 mls/hr IVPB Q8H [facility] Last Admin: 11/14/16 10:37 Dose: 100 mls/hr Meclizine HCl (Antivert) 12.5 mg PO TID [facility] Last Admin: 11/14/16 14:44 Dose: 12.5 mg Pantoprazole Sodium (Protonix Ec Tab) 40 mg PO DAILY [facility] Last Admin: 11/14/16 10:50 Dose: 40 mg Trazodone HCl (Desyrel) 50 mg PO HS [facility] Last Admin: 11/13/16 21:39 Dose: 50 mg - Labs Labs: 11/11/16 07:58 11/11/16 07:58 Assessment and Plan (1) Abscess Status: Acute (2) Constipation Status: Acute (3) Encounter for wound care Status: Acute (4) Intractable abdominal pain Status: Acute (5) Prophylactic measure Status: Acute (6) Crohn disease Status: Acute (7) Foreign body Status: Acute (8) Rectal fistula Status: Acute (9) Rectal pain Status: Acute Attending/Attestation - Attestation I have personally seen and examined this patient.: Yes I have fully participated in the care of the patient.: Yes I have reviewed all pertinent clinical information, including history, physical exam and plan: Yes Notes (Text): 11/13/16 17:44 case seen and discused [facility] staff adn resdient
[2016-11-13] MEDS: Pantoprazole 40 mg EC Tab PO SCH (10:41)
--- NOTE | 2016-11-13 12:34 | CP.PCM.PN ---
Subjective - Date & Time of Evaluation Date of Evaluation: 11/13/16 Time of Evaluation: 09:00 - Subjective Subjective: clinically same Objective - Vital Signs/Intake and Output Vital Signs (last 24 hours): Temp Pulse Resp BP Pulse Ox 98.3 F 88 20 104/67 100 11/13/16 08:00 11/13/16 08:00 11/13/16 08:00 11/13/16 08:00 11/13/16 08:00 Intake and Output: 11/13/16 11/13/16 06:59 18:59 Intake Total 250 200 Output Total 600 Balance -350 200 - Medications Medications: Current Medications Diphenhydramine HCl (Benadryl) 25 mg IVP Q2 PRN PRN Reason: Pain, severe (8-10) Last Admin: 11/13/16 10:42 Dose: 25 mg Gabapentin (Neurontin) 100 mg PO TID [facility] Last Admin: 11/13/16 10:41 Dose: 100 mg Hydromorphone HCl (Dilaudid) 2 mg IVP Q2H PRN PRN Reason: Pain, severe (8-10) Last Admin: 11/13/16 10:42 Dose: 2 mg Cefazolin Sodium/Dextrose (Ancef Iv 1 Gm Duplex) 50 mls @ 100 mls/hr IVPB Q8H [facility] Last Admin: 11/13/16 11:16 Dose: 100 mls/hr Meclizine HCl (Antivert) 12.5 mg PO TID [facility] Last Admin: 11/13/16 10:41 Dose: 12.5 mg Pantoprazole Sodium (Protonix Ec Tab) 40 mg PO DAILY [facility] Last Admin: 11/13/16 10:41 Dose: 40 mg Trazodone HCl (Desyrel) 50 mg PO HS [facility] Last Admin: 11/12/16 21:39 Dose: 50 mg - Labs Labs: 11/11/16 07:58 11/11/16 07:58 - Constitutional Appears: Well - Head Exam Head Exam: ATRAUMATIC, NORMAL INSPECTION, NORMOCEPHALIC - Eye Exam Eye Exam: EOMI, Normal appearance, PERRL Pupil Exam: NORMAL ACCOMODATION, PERRL - ENT Exam ENT Exam: Mucous Membranes Moist, Normal Exam - Neck Exam Neck Exam: Full ROM, Normal Inspection. absent: Lymphadenopathy - Respiratory Exam Respiratory Exam: Decreased Breath Sounds - Cardiovascular Exam Cardiovascular Exam: REGULAR RHYTHM, +S1, +S2 - GI/Abdominal Exam GI & Abdominal Exam: Soft, Diminished Bowel Sounds - Rectal Exam Rectal Exam: Deferred Assessment and Plan (1) Abscess Status: Acute (2) Constipation Status: Acute (3) Encounter for wound care Status: Acute (4) Intractable abdominal pain Status: Acute (5) Prophylactic measure Status: Acute (6) Crohn disease Status: Acute (7) Foreign body Status: Acute (8) Rectal fistula Status: Acute (9) Rectal pain Status: Acute
[2016-11-14] MEDS: DiphenhydrAMINE 50 mg/ml Inj IVP PRN ×11 (00:09→22:59)
[2016-11-14] MEDS: ceFAZolin IV 1 gm in Dextrose 50 ML IVPB SCH ×3 (02:07→18:00)
--- NOTE | 2016-11-14 09:15 | CP.PCM.PN ---
Subjective - Date & Time of Evaluation Date of Evaluation: 11/14/16 Time of Evaluation: 09:00 - Subjective Subjective: clinically same Objective - Vital Signs/Intake and Output Vital Signs (last 24 hours): Temp Pulse Resp BP Pulse Ox 98.3 F 103 H 20 103/67 95 11/14/16 00:26 11/14/16 00:26 11/14/16 00:26 11/14/16 00:26 11/14/16 00:26 Intake and Output: 11/14/16 11/14/16 06:59 18:59 Intake Total 400 Balance 400 - Medications Medications: Current Medications Diphenhydramine HCl (Benadryl) 25 mg IVP Q2 PRN PRN Reason: Pain, severe (8-10) Last Admin: 11/14/16 08:40 Dose: 25 mg Gabapentin (Neurontin) 100 mg PO TID [facility] Last Admin: 11/13/16 18:45 Dose: 100 mg Hydromorphone HCl (Dilaudid) 2 mg IVP Q2H PRN PRN Reason: Pain, severe (8-10) Last Admin: 11/14/16 08:41 Dose: 2 mg Cefazolin Sodium/Dextrose (Ancef Iv 1 Gm Duplex) 50 mls @ 100 mls/hr IVPB Q8H [facility] Last Admin: 11/14/16 02:07 Dose: 100 mls/hr Meclizine HCl (Antivert) 12.5 mg PO TID [facility] Last Admin: 11/13/16 18:45 Dose: 12.5 mg Pantoprazole Sodium (Protonix Ec Tab) 40 mg PO DAILY [facility] Last Admin: 11/13/16 10:41 Dose: 40 mg Trazodone HCl (Desyrel) 50 mg PO HS [facility] Last Admin: 11/13/16 21:39 Dose: 50 mg - Labs Labs: 11/11/16 07:58 11/11/16 07:58 - Constitutional Appears: Well - Head Exam Head Exam: ATRAUMATIC, NORMAL INSPECTION, NORMOCEPHALIC - Eye Exam Eye Exam: EOMI, Normal appearance, PERRL Pupil Exam: NORMAL ACCOMODATION, PERRL - ENT Exam ENT Exam: Mucous Membranes Moist, Normal Exam - Neck Exam Neck Exam: Full ROM, Normal Inspection. absent: Lymphadenopathy - Respiratory Exam Respiratory Exam: Decreased Breath Sounds - Cardiovascular Exam Cardiovascular Exam: REGULAR RHYTHM, +S1, +S2 - GI/Abdominal Exam GI & Abdominal Exam: Soft, Diminished Bowel Sounds - Rectal Exam Rectal Exam: Deferred Assessment and Plan (1) Abscess Status: Acute (2) Constipation Status: Acute (3) Encounter for wound care Status: Acute (4) Intractable abdominal pain Status: Acute (5) Prophylactic measure Status: Acute (6) Crohn disease Status: Acute (7) Foreign body Status: Acute (8) Rectal fistula Status: Acute (9) Rectal pain Status: Acute - Assessment and Plan (Free Text) Plan: pt request to stay her donna emore day as per dr. hill request dn pt wants to drain his abscess iv pain med iv antibiotic as ordered discahrge planning
[2016-11-14] MEDS: Pantoprazole 40 mg EC Tab PO SCH (10:50)
--- NOTE | 2016-11-14 11:09 | CP.PCM.PN ---
Objective - Vital Signs/Intake and Output Vital Signs (last 24 hours): Temp Pulse Resp BP Pulse Ox 98.5 F 93 H 20 103/68 100 11/14/16 08:00 11/14/16 08:00 11/14/16 08:00 11/14/16 08:00 11/14/16 08:00 Intake and Output: 11/14/16 11/14/16 06:59 18:59 Intake Total 400 Balance 400 - Medications Medications: Current Medications Diphenhydramine HCl (Benadryl) 25 mg IVP Q2 PRN PRN Reason: Pain, severe (8-10) Last Admin: 11/14/16 10:43 Dose: 25 mg Gabapentin (Neurontin) 100 mg PO TID [facility] Last Admin: 11/14/16 10:38 Dose: 100 mg Hydromorphone HCl (Dilaudid) 2 mg IVP Q2H PRN PRN Reason: Pain, severe (8-10) Last Admin: 11/14/16 10:43 Dose: 2 mg Cefazolin Sodium/Dextrose (Ancef Iv 1 Gm Duplex) 50 mls @ 100 mls/hr IVPB Q8H [facility] Last Admin: 11/14/16 10:37 Dose: 100 mls/hr Meclizine HCl (Antivert) 12.5 mg PO TID [facility] Last Admin: 11/14/16 10:38 Dose: 12.5 mg Pantoprazole Sodium (Protonix Ec Tab) 40 mg PO DAILY [facility] Last Admin: 11/14/16 10:50 Dose: 40 mg Trazodone HCl (Desyrel) 50 mg PO HS [facility] Last Admin: 11/13/16 21:39 Dose: 50 mg - Labs Labs: 11/11/16 07:58 11/11/16 07:58
[2016-11-15] MEDS: DiphenhydrAMINE 50 mg/ml Inj IVP PRN ×8 (01:21→18:03)
[2016-11-15] MEDS: ceFAZolin IV 1 gm in Dextrose 50 ML IVPB SCH ×2 (03:10→12:00)
[2016-11-15] MEDS: Pantoprazole 40 mg EC Tab PO SCH (09:21)
--- NOTE | 2016-11-15 14:58 | CP.PCM.PN ---
Subjective - Date & Time of Evaluation Date of Evaluation: 11/15/16 Time of Evaluation: 09:00 - Subjective Subjective: clinically same Objective - Vital Signs/Intake and Output Vital Signs (last 24 hours): Temp Pulse Resp BP Pulse Ox 97.5 F L 108 H 20 99/68 L 99 11/15/16 08:00 11/15/16 08:27 11/15/16 08:00 11/15/16 08:00 11/15/16 08:00 - Medications Medications: Current Medications Diphenhydramine HCl (Benadryl) 25 mg IVP Q2 PRN PRN Reason: Pain, severe (8-10) Last Admin: 11/15/16 13:44 Dose: 25 mg Gabapentin (Neurontin) 100 mg PO TID [facility] Last Admin: 11/15/16 13:47 Dose: 100 mg Hydromorphone HCl (Dilaudid) 2 mg IVP Q2H PRN PRN Reason: Pain, severe (8-10) Last Admin: 11/15/16 13:47 Dose: 2 mg Cefazolin Sodium/Dextrose (Ancef Iv 1 Gm Duplex) 50 mls @ 100 mls/hr IVPB Q8H [facility] Last Admin: 11/15/16 12:00 Dose: 100 mls/hr Meclizine HCl (Antivert) 12.5 mg PO TID [facility] Last Admin: 11/15/16 13:46 Dose: 12.5 mg Pantoprazole Sodium (Protonix Ec Tab) 40 mg PO DAILY [facility] Last Admin: 11/15/16 09:21 Dose: 40 mg Trazodone HCl (Desyrel) 50 mg PO HS [facility] Last Admin: 11/14/16 21:07 Dose: 50 mg - Labs Labs: 11/11/16 07:58 11/11/16 07:58 Assessment and Plan (1) Abscess Status: Acute (2) Constipation Status: Acute (3) Encounter for wound care Status: Acute (4) Intractable abdominal pain Status: Acute (5) Prophylactic measure Status: Acute (6) Crohn disease Status: Acute (7) Foreign body Status: Acute (8) Rectal fistula Status: Acute (9) Rectal pain Status: Acute
[2016-11-15 17:40] VITALS: BP 101/71; PULSE 100; TEMP 98.4; O2SAT 97
== END 2016-11-15 20:06 | disposition home or self-care (01) | DRG 553 ==
LOC: C.ER 00:53 → C.9E 03:20 → C.3T 03:20 → C.5T 10-20 10:43 → OBSVTOIN 10-21 14:52 → C.3T 10-24 21:19
PROVIDERS: ADMIT Internal Medicine Nephrology; ATTEND Internal Medicine Nephrology
PROC: 0JB70ZZ Excision of Back Subcutaneous Tissue and Fascia, Open Approach (ICD-10-PCS; 2016-10-23)
PROC: 0J970ZZ Drainage of Back Subcutaneous Tissue and Fascia, Open Approach (ICD-10-PCS; 2016-10-23)
PROC: 0JB90ZZ Excision of Buttock Subcutaneous Tissue and Fascia, Open Approach (ICD-10-PCS; 2016-11-06)
PROC: 0J990ZZ Drainage of Buttock Subcutaneous Tissue and Fascia, Open Approach (ICD-10-PCS; principal; 2016-11-06 13:00)
DX: K60.4 Rectal fistula (principal); K50.911 Crohn's disease, unspecified, with rectal bleeding; L89.159 Pressure ulcer of sacral region, unspecified stage; F33.1 Major depressive disorder, recurrent, moderate; K61.1 Rectal abscess; L02.214 Cutaneous abscess of groin; L02.215 Cutaneous abscess of perineum; L02.31 Cutaneous abscess of buttock; B96.1 Klebsiella pneumoniae [K. pneumoniae] as the cause of diseases classified elsewhere; D50.9 Iron deficiency anemia, unspecified; Z91.19 Patient's noncompliance with other medical treatment and regimen; K21.9 Gastro-esophageal reflux disease without esophagitis; Z93.3 Colostomy status; Z79.899 Other long term (current) drug therapy; K59.00 Constipation, unspecified; G89.29 Other chronic pain

== ENCOUNTER 2016-11-16 19:51 | Inpatient (IN) | payer MEDICAID ==
[2016-11-16 19:52] VITALS: BMI 22.2
[2016-11-16] MEDS ORDERED: Sodium Chloride 0.9% 1,000 ML IV ONE (20:09)
[2016-11-16] MEDS ORDERED: DiphenhydrAMINE 50 mg/ml Inj ONE (20:10)
[2016-11-16] MEDS ORDERED: DiphenhydrAMINE 50 mg/ml Inj IVP STA (20:10)
[2016-11-16] MEDS ORDERED: Sodium Chloride 0.9% 500 ML IV ONE (20:12)
--- NOTE | 2016-11-16 20:14 | C.PDOC ---
History Of Present Illness 21 year old patient, with a past medical history of Crohn's Disease and depression, presents to the ED complaining of severe pain to the perineal area since yesterday. Patient states he is s/p an I&D for a perineal abscess. He was discharged home from the hospital yesterday. Patient denies any fever. Time Seen by Provider: 11/16/16 20:09 Chief Complaint (Nursing): Abnormal Skin Integrity History Per: Patient History/Exam Limitations: no limitations Onset/Duration Of Symptoms: Days (1) Current Symptoms Are (Timing): Still Present Quality Of Symptoms: Painful, Draining Severity: Severe Pain Scale Rating Of: 8 Recent travel outside of the [place]: No Past Medical History Reviewed: Historical Data, Nursing Documentation, Vital Signs Vital Signs: Last Vital Signs Temp 98.6 F 11/16/16 21:57 Pulse 111 H 11/16/16 21:57 Resp 18 11/16/16 21:57 BP 112/75 11/16/16 21:57 Pulse Ox 100 11/16/16 21:57 - Medical History PMH: Crohn's Disease (COLOSTOMY 2015), Depression - [facility] Procedures DRAINAGE OF BUTTOCK SKIN, EXTERNAL APPROACH, DIAGNOSTIC (09/23/16) EXCISION OF BACK SKIN, EXTERNAL APPROACH (09/23/16) EXCISION OF PERINEUM SKIN, EXTERNAL APPROACH (09/23/16) EXTRACTION OF BUTTOCK SKIN, EXTERNAL APPROACH (09/23/16) Family History: States: Unknown Family Hx - Social History Hx Alcohol Use: No Hx Substance Use: No - Immunization History Hx Tetanus Toxoid Vaccination: No Hx Influenza Vaccination: No Hx Pneumococcal Vaccination: No Review Of Systems Except As Marked, All Systems Reviewed And Found Negative. Constitutional: Negative for: Fever Skin: Positive for: Other (drainage from incision in perineal area) Physical Exam - Physical Exam Appears: Non-toxic, No Acute Distress Skin: Warm, Dry Head: Atraumatic, Normacephalic Neck: Normal ROM, Supple Chest: Symmetrical Cardiovascular: Rhythm Regular Respiratory: Normal Breath Sounds, No Rales, No Rhonchi, No Wheezing Gastrointestinal/Abdominal: Soft, No Tenderness Rectal: Other (presence of incision in the perineal area (below the rectum) there is drainage of bloody discharge) Back: Normal Inspection Extremity: Normal ROM Neurological/Psych: Oriented x3, Normal Speech, Normal Cognition Gait: Steady ED Course And Treatment - Laboratory Results Result Diagrams: 11/16/16 20:35 11/16/16 20:35 O2 Sat by Pulse Oximetry: 98 (RA) Pulse Ox Interpretation: Normal Progress Note: Plan: -Labs. -Benadryl, Dilaudid, IV fluids. Progress: Discussed with Dr. Gilmar Barrett at 20:35, patient will be admitted for observation for pain. Disposition - Disposition Disposition: HOSPITALIZED Disposition Time: 20:30 Condition: STABLE - POA Present On Arrival: None - Clinical Impression Clinical Impression: Abdominal pain, Intractable pain - Scribe Statement The provider has reviewed the documentation as recorded by the Scribe Makayla Barrett Provider Attestation: All medical record entries made by the Scribe were at my direction and personally dictated by me. I have reviewed the chart and agree that the record accurately reflects my personal performance of the history, physical exam, medical decision making, and the department course for this patient. I have also personally directed, reviewed, and agree with the discharge instructions and disposition.
[2016-11-16 20:45] LABS: BASO # 0.1 K/uL (0.0-0.2); BASO % 1.1 % (0.0-2.0); EOS # 0.2 K/uL (0.0-0.7); EOS % 1.9 % (0.0-4.0); HEMATOCRIT 31.7 % (35.0-51.0); LYMPH # 2.2 K/uL (1.0-4.3); LYMPH % 21.6 % (20.0-40.0); MEAN CORPUSCULAR HEMOGLOBIN 20.2 pg (27.0-31.0); MEAN CORPUSCULAR HGB CONC 31.1 g/dL (33.0-37.0); MEAN PLATELET VOLUME 8.3 fL (7.2-11.7); MONO # 0.9 K/uL (0.0-0.8); MONO % 8.4 % (0.0-10.0); NRBC % 0.1 % (0.0-2.0); RED CELL DISTRIBUTION WIDTH 16.1 % (11.5-14.5); WHITE BLOOD COUNT 10.1 K/uL (4.8-10.8)
[2016-11-16 20:54] LABS: CHLORIDE 95 mmol/L (98-107)
[2016-11-16 20:55] LABS: POTASSIUM 3.9 mmol/L (3.6-5.2); SODIUM 137 mmol/L (132-148)
[2016-11-16 20:57] LABS: GFR AFRICAN-AMERICAN > 60
[2016-11-16 20:58] LABS: ALB/GLOB RATIO 0.9 (1.0-2.1); ALKALINE PHOSPHATASE 123 U/L (38-126); ALT/SGPT 13 U/L (21-72); AST/SGOT 37 U/L (17-59); BILIRUBIN,TOTAL 0.4 mg/dL (0.2-1.3); BLOOD UREA NITROGEN 8 mg/dL (9-20); CALCIUM 8.5 mg/dl (8.6-10.4); CARBON DIOXIDE 25 mmol/L (22-30); GLUCOSE,RANDOM 67 mg/dL (75-110); TOTAL PROTEIN 8.2 g/dL (6.3-8.3)
[2016-11-16] MEDS: DiphenhydrAMINE 50 mg/ml Inj IVP PRN (22:23)
[2016-11-17] MEDS: DiphenhydrAMINE 50 mg/ml Inj IVP PRN ×10 (00:33→22:31)
--- NOTE | 2016-11-17 09:04 | CP.PCM.CON ---
<Ban Alejandre - Last Filed: 11/17/16 10:50> History of Present Illness - History of Present Illness History of Present Illness: Gastroenterology Fellow/PGY4 Consult Note 21 year old male diagnosed with Crohn's disease four years ago presenting with abdominal pain and rectal pain after I&D and debridement on 11/09 of right gluteal abscess. Admits to not being able to fill percocet prescribed on discharge two days ago leading to ER presentation for further pain management. Admits to two episodes of vomiting food at home yesterday. Denies fever, chills , sweats, nausea, hematemesis, melena, hematochezia, joint pain, kidney stones, eye pain or redness, aphthous ulcers, or kidney stones. Last colonoscopy [address] [facility] in [place],with Dr. Gardner. Endorsed discussed transfer of care from Dr. Gardner and would like to discuss further care and treatment plan. Family-paternal aunt-Crohn's disease Social-denies tobacco, alcohol, illicit drug use Surgery- partial colectomy 02/2015, loop colostomy 04/2016, multiple I&Ds perianal abscesses Review of Systems - Review of Systems Review of Systems: A 12-point review of systems negative except for as above Past Patient History - Infectious Disease Hx of Infectious Diseases: None - Past Medical History & Family History Past Medical History?: Yes - Past Social History Smoking Status: Smoker Currrent Status Unknown - CARDIAC Hx Cardiac Disorders: No - PULMONARY Hx Respiratory Disorders: No - NEUROLOGICAL Hx Neurological Disorder: No - HEENT Hx HEENT Problems: No - RENAL Hx Chronic Kidney Disease: No - ENDOCRINE/METABOLIC Hx Endocrine Disorders: No - HEMATOLOGICAL/ONCOLOGICAL Hx Blood Disorders: No - INTEGUMENTARY Hx Dermatological Problems: Yes Other/Comment: Perineal wound - MUSCULOSKELETAL/RHEUMATOLOGICAL Hx Falls: No - GASTROINTESTINAL Hx Crohn's Disease: Yes (COLOSTOMY 2015) - GENITOURINARY/GYNECOLOGICAL Hx Genitourinary Disorders: No - PSYCHIATRIC Hx Depression: Yes Hx Substance Use: No - SURGICAL HISTORY Hx Surgeries: Yes (SEE COMMENT) Other/Comment: LOOP COLOSTOMY. Perineal wound. Left upper arm PICC Line - ANESTHESIA Hx Anesthesia: Yes Hx Anesthesia Reactions: No Hx Malignant Hyperthermia: No Meds Allergies/Adverse Reactions: Allergies Allergy/AdvReac Type Severity Reaction Status Date / Time morphine Allergy ITCHING Verified 10/19/16 12:19 - Medications Medications: Current Medications Diphenhydramine HCl (Benadryl) 25 mg IVP Q2 PRN PRN Reason: to be given w/ dilaudid Last Admin: 11/17/16 08:12 Dose: 25 mg Hydromorphone HCl (Dilaudid) 2 mg IVP Q2 PRN PRN Reason: Pain, moderate (4-7) Last Admin: 11/17/16 08:13 Dose: 2 mg Physical Exam - Constitutional Appears: Non-toxic, No Acute Distress - Head Exam Head Exam: ATRAUMATIC, NORMOCEPHALIC - Eye Exam Eye Exam: EOMI, PERRL Pupil Exam: PERRL. absent: Miosis, Mydriatic - ENT Exam ENT Exam: Mucous Membranes Moist, Normal Oropharynx - Neck Exam Neck exam: Positive for: Full Rom, Normal Inspection - Respiratory Exam Respiratory Exam: Clear to Auscultation Bilateral. absent: Rales, Rhonchi, Wheezes - Cardiovascular Exam Cardiovascular Exam: RRR, +S1, +S2. absent: Gallop, Rubs - GI/Abdominal Exam GI & Abdominal Exam: Normal Bowel Sounds, Soft, Tenderness. absent: Distended, Guarding, Mass, Organomegaly, Rebound, Rigid Additional comments: right lateral ostomy tenderness of midline vertical abdomen, ostomy with liquid yellow-brown stool - Extremities Exam Extremities exam: Positive for: full ROM. Negative for: pedal edema - Neurological Exam Neurological exam: Alert - Psychiatric Exam Psychiatric exam: Normal Affect, Normal Mood - Skin Skin Exam: Dry, Intact, Normal Color, Warm Results - Vital Signs Recent Vital Signs: Last Vital Signs Temp 98.5 F 11/16/16 23:48 Pulse 94 H 11/16/16 23:48 Resp 20 11/16/16 23:48 BP 115/74 11/16/16 23:48 Pulse Ox 100 11/16/16 23:48 - Labs Result Diagrams: 11/16/16 20:35 11/16/16 20:35 Assessment & Plan - Assessment and Plan (Free Text) Assessment: 21 year old male diagnosed with Crohn's disease four years ago presenting with abdominal pain and rectal pain after I&D and debridement on 11/09 of right gluteal abscess. Admits to not being able to fill percocet prescribed on discharge two days ago leading to ER presentation for further pain management. Admits to two episodes of vomiting food at home yesterday. Denies fever, chills , sweats, nausea, hematemesis, melena, hematochezia, joint pain, kidney stones, eye pain or redness, aphthous ulcers, or kidney stones. Last colonoscopy [address] [facility] in [place],with Dr. Gardner. Endorsed discussed transfer of care from Dr. Gardner and would like to discuss further care and treatment plan. Abdominal/Rectal pain Crohn's disease s/p partial colectomy with loop ileostomy Recent I&D/debridement 11/09 of right gluteal abscess Plan: >continue supportive care: pain control, PPI, anti-emetics >tolerating regular diet >surgery consulted- follow up recommendations >ID consulted follow up recommendations >ongoing treatment of chronic abscesses prior to initiation of further management of Crohn's disease >outpatient follow up with Dr. Lopez on 12/08/16 at 1230PM to establish care > <Flora KUMARI,[facility] - Last Filed: 11/17/16 17:48> Meds - Medications Medications: Current Medications Diphenhydramine HCl (Benadryl) 25 mg IVP Q2 PRN PRN Reason: to be given w/ dilaudid Last Admin: 11/17/16 16:23 Dose: 25 mg Hydromorphone HCl (Dilaudid) 2 mg IVP Q2 PRN PRN Reason: Pain, moderate (4-7) Last Admin: 11/17/16 16:24 Dose: 2 mg Cefazolin Sodium/Dextrose (Ancef Iv 1 Gm Duplex) 50 mls @ 100 mls/hr IVPB Q8H [facility]ICOLE[facility]E Last Admin: 11/17/16 11:16 Dose: 100 mls/hr Results - Vital Signs Recent Vital Signs: Last Vital Signs Temp 98.9 F 11/17/16 15:47 Pulse 102 H 11/17/16 15:47 Resp 20 11/17/16 15:47 BP 104/70 11/17/16 15:47 Pulse Ox 96 11/17/16 15:47 - Labs Result Diagrams: 11/16/16 20:35 11/16/16 20:35 Attending/Attestation - Attestation I have personally seen and examined this patient.: Yes I have fully participated in the care of the patient.: Yes I have reviewed all pertinent clinical information: Yes Notes (Text): 11/17/16 17:44 Patient seen with Gi fellow on rounds this am. This is a 21 year old male diagnosed with Crohn's disease s/p partial colectomy and loop ileostomy four years ago presenting with abdominal pain and rectal pain after I&D and debridement last week of right gluteal abscess. Last colonoscopy 09/04/[address] [facility] in [place],with Dr. Gardner. Patient seems to have poor outpatient compliance andfollow up. Currently no Gi issues. Will give outpatient appointment with IBD specialist Dr Lopez in 2-3 weeks to establish outpatient care and further management.Needs to establish compliance on on going outpatient basis before being considered for aggressive Crohn's therapy. This was discussed in detail with the patient. Tolerating full solid diet. Will sign off now. Thank you for letting us participate in the care of this patient.
[2016-11-17] MEDS: ceFAZolin IV 1 gm in Dextrose 50 ML IVPB SCH ×2 (11:16→18:14)
--- NOTE | 2016-11-17 12:01 | RAD ---
PROCEDURE: CHEST RADIOGRAPH, 1 VIEW. Technique: Single view portable semi erect @ 11:00. HISTORY: check picc line placement.pt admitted frm home . COMPARISON: 10/24/2016 FINDINGS: LUNGS: Clear. PLEURA: No pneumothorax or pleural fluid seen. CARDIOVASCULAR: No radiographic findings to suggest acute or significant cardiovascular disease. PICC line in stable position OSSEOUS STRUCTURES: No significant abnormalities. VISUALIZED UPPER ABDOMEN: Normal. OTHER FINDINGS: None. IMPRESSION: No active disease. No acute/significant interval changes. Stable position of PICC line the tip is in the proximal SVC.
--- NOTE | 2016-11-17 15:09 | CP.PCM.CON ---
History of Present Illness - History of Present Illness History of Present Illness: dictated Past Patient History - Infectious Disease Hx of Infectious Diseases: None - Past Medical History & Family History Past Medical History?: Yes - Past Social History Smoking Status: Smoker Currrent Status Unknown - CARDIAC Hx Cardiac Disorders: No - PULMONARY Hx Respiratory Disorders: No - NEUROLOGICAL Hx Neurological Disorder: No - HEENT Hx HEENT Problems: No - RENAL Hx Chronic Kidney Disease: No - ENDOCRINE/METABOLIC Hx Endocrine Disorders: No - HEMATOLOGICAL/ONCOLOGICAL Hx Blood Disorders: No - INTEGUMENTARY Hx Dermatological Problems: Yes Other/Comment: Perineal wound - MUSCULOSKELETAL/RHEUMATOLOGICAL Hx Falls: No - GASTROINTESTINAL Hx Crohn's Disease: Yes (COLOSTOMY 2016) - GENITOURINARY/GYNECOLOGICAL Hx Genitourinary Disorders: No - PSYCHIATRIC Hx Depression: Yes Hx Substance Use: No - SURGICAL HISTORY Hx Surgeries: Yes (SEE COMMENT) Other/Comment: LOOP COLOSTOMY. Perineal wound. Left upper arm PICC Line - ANESTHESIA Hx Anesthesia: Yes Hx Anesthesia Reactions: No Hx Malignant Hyperthermia: No Meds Allergies/Adverse Reactions: Allergies Allergy/AdvReac Type Severity Reaction Status Date / Time morphine Allergy ITCHING Verified 10/19/16 12:19 - Medications Medications: Current Medications Diphenhydramine HCl (Benadryl) 25 mg IVP Q2 PRN PRN Reason: to be given w/ dilaudid Last Admin: 11/17/16 13:54 Dose: 25 mg Hydromorphone HCl (Dilaudid) 2 mg IVP Q2 PRN PRN Reason: Pain, moderate (4-7) Last Admin: 11/17/16 13:53 Dose: 2 mg Cefazolin Sodium/Dextrose (Ancef Iv 1 Gm Duplex) 50 mls @ 100 mls/hr IVPB Q8H [facility] Last Admin: 11/17/16 11:16 Dose: 100 mls/hr Results - Vital Signs Recent Vital Signs: Last Vital Signs Temp 97.8 F 11/17/16 10:00 Pulse 74 11/17/16 10:00 Resp 20 11/17/16 10:00 BP 108/70 11/17/16 10:00 Pulse Ox 97 11/17/16 10:00 - Labs Result Diagrams: 11/16/16 20:35 11/16/16 20:35
--- NOTE | 2016-11-17 17:02 | CP.PCM.HP ---
History of Present Illness - History of Present Illness History of Present Illness: 21 years old male patient with past medical history of Crohn's disease and depression, with recent history of IND for perineal abscess. Patient will discharge from hospital yesterday. Today presents to the emergency department with complaint of severe pain into perineal region yesterday. No fever, diarrhea, no bleeding from perineal region. Present on Admission - Present on Admission Any Indicators Present on Admission: No Past Patient History - Infectious Disease Hx of Infectious Diseases: None - Past Medical History & Family History Past Medical History?: Yes - Past Social History Smoking Status: Smoker Currrent Status Unknown - CARDIAC Hx Cardiac Disorders: No - PULMONARY Hx Respiratory Disorders: No - NEUROLOGICAL Hx Neurological Disorder: No - HEENT Hx HEENT Problems: No - RENAL Hx Chronic Kidney Disease: No - ENDOCRINE/METABOLIC Hx Endocrine Disorders: No - HEMATOLOGICAL/ONCOLOGICAL Hx Blood Disorders: No - INTEGUMENTARY Hx Dermatological Problems: Yes Other/Comment: Perineal wound - MUSCULOSKELETAL/RHEUMATOLOGICAL Hx Falls: No - GASTROINTESTINAL Hx Crohn's Disease: Yes (COLOSTOMY 2015) - GENITOURINARY/GYNECOLOGICAL Hx Genitourinary Disorders: No - PSYCHIATRIC Hx Depression: Yes Hx Substance Use: No - SURGICAL HISTORY Hx Surgeries: Yes (SEE COMMENT) Other/Comment: LOOP COLOSTOMY. Perineal wound. Left upper arm PICC Line - ANESTHESIA Hx Anesthesia: Yes Hx Anesthesia Reactions: No Hx Malignant Hyperthermia: No Meds Allergies/Adverse Reactions: Allergies Allergy/AdvReac Type Severity Reaction Status Date / Time morphine Allergy ITCHING Verified 01/30/17 17:09 Physical Exam - Constitutional Appears: Well - Head Exam Head Exam: ATRAUMATIC, NORMAL INSPECTION, NORMOCEPHALIC - Eye Exam Eye Exam: EOMI, Normal appearance, PERRL Pupil Exam: NORMAL ACCOMODATION, PERRL - ENT Exam ENT Exam: Mucous Membranes Moist, Normal Exam - Neck Exam Neck exam: Positive for: Normal Inspection - Respiratory Exam Respiratory Exam: Decreased Breath Sounds - Cardiovascular Exam Cardiovascular Exam: REGULAR RHYTHM, +S1, +S2 - GI/Abdominal Exam GI & Abdominal Exam: Diminished Bowel Sounds, Soft - Rectal Exam Rectal Exam: Deferred Results - Vital Signs Recent Vital Signs: Last Vital Signs Temp 98.9 F 11/17/16 15:47 Pulse 102 H 11/17/16 15:47 Resp 20 11/17/16 15:47 BP 104/70 11/17/16 15:47 Pulse Ox 96 11/17/16 15:47 - Labs Result Diagrams: 11/24/16 11:17 11/23/16 07:30 Assessment & Plan (1) DVT (deep venous thrombosis) Status: Acute (2) Diarrhea Status: Acute (3) Intractable pain Status: Acute (4) Wound of right buttock Status: Acute (5) Abdominal pain Status: Acute (6) Abscess Status: Acute (7) Constipation Status: Acute (8) Crohn disease Status: Acute (9) Diarrhea Status: Acute (10) Encounter for wound care Status: Acute (11) Fever Status: Acute (12) Foreign body Status: Acute (13) Intractable abdominal pain Status: Acute (14) Prophylactic measure Status: Acute (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 Daniel consult Dr. Austin Tolerating regular diet
--- NOTE | 2016-11-17 19:11 | CP.PCM.CON ---
<Odin Merritt - Last Filed: 11/17/16 19:07> History of Present Illness - History of Present Illness History of Present Illness: Surgery: Dr. Taylor CC: pain HPI: Patient is a 21 y/o male well known to the surgical service who presented complaining of pain in the stomach that started after he was discharged from the hospital on Thursday. He states he called his primary doctor who said to come to ER since the pain was not relieved with prescribed pain medication. Patient had recently been discharged s/p I&D of nitza-rectal abscesses and long hospitalization of IV abx. Patient had history of Crohn's disease in which is currently not medically controlled. Patient denies any other complaints at this time and states the pain is better. PMHx: Crohn's PSH: multiple I&Ds of nitza-rectal abscess Review of Systems - Constitutional Constitutional: absent: Anorexia, Chills, Fever - EENT Eyes: absent: Blurred Vision, Change in Vision Nose/Mouth/Throat: absent: Nasal Congestion, Nasal Discharge - Cardiovascular Cardiovascular: absent: Chest Pain, Edema - Gastrointestinal Gastrointestinal: Abdominal Pain, Diarrhea. absent: Bloating, Constipation, Vomiting - Integumentary Integumentary: Wounds - Neurological Neurological: absent: Confusion, Syncope - Endocrine Endocrine: absent: Polyphagia, Polyuria - Hematologic/Lymphatic Hematologic: absent: Easy Bleeding, Easy Bruising Past Patient History - Infectious Disease Hx of Infectious Diseases: None - Past Medical History & Family History Past Medical History?: Yes - Past Social History Smoking Status: Smoker Currrent Status Unknown - CARDIAC Hx Cardiac Disorders: No - PULMONARY Hx Respiratory Disorders: No - NEUROLOGICAL Hx Neurological Disorder: No - HEENT Hx HEENT Problems: No - RENAL Hx Chronic Kidney Disease: No - ENDOCRINE/METABOLIC Hx Endocrine Disorders: No - HEMATOLOGICAL/ONCOLOGICAL Hx Blood Disorders: No - INTEGUMENTARY Hx Dermatological Problems: Yes Other/Comment: Perineal wound - MUSCULOSKELETAL/RHEUMATOLOGICAL Hx Falls: No - GASTROINTESTINAL Hx Crohn's Disease: Yes (COLOSTOMY 2016) - GENITOURINARY/GYNECOLOGICAL Hx Genitourinary Disorders: No - PSYCHIATRIC Hx Depression: Yes Hx Substance Use: No - SURGICAL HISTORY Hx Surgeries: Yes (SEE COMMENT) Other/Comment: LOOP COLOSTOMY. Perineal wound. Left upper arm PICC Line - ANESTHESIA Hx Anesthesia: Yes Hx Anesthesia Reactions: No Hx Malignant Hyperthermia: No Meds Allergies/Adverse Reactions: Allergies Allergy/AdvReac Type Severity Reaction Status Date / Time morphine Allergy ITCHING Verified 10/19/16 12:19 - Medications Medications: Current Medications Diphenhydramine HCl (Benadryl) 25 mg IVP Q2 PRN PRN Reason: to be given w/ dilaudid Last Admin: 11/17/16 18:21 Dose: 25 mg Hydromorphone HCl (Dilaudid) 2 mg IVP Q2 PRN PRN Reason: Pain, moderate (4-7) Last Admin: 11/17/16 18:22 Dose: 2 mg Cefazolin Sodium/Dextrose (Ancef Iv 1 Gm Duplex) 50 mls @ 100 mls/hr IVPB Q8H [facility] Last Admin: 11/17/16 18:14 Dose: 100 mls/hr Physical Exam - Constitutional Appears: Non-toxic, No Acute Distress - Head Exam Head Exam: ATRAUMATIC, NORMOCEPHALIC - Eye Exam Eye Exam: EOMI, Normal appearance - ENT Exam ENT Exam: Mucous Membranes Moist - Respiratory Exam Respiratory Exam: NORMAL BREATHING PATTERN. absent: Respiratory Distress - Cardiovascular Exam Cardiovascular Exam: REGULAR RHYTHM. absent: Tachycardia - GI/Abdominal Exam GI & Abdominal Exam: Soft. absent: Distended, Tenderness Additional comments: Ostomy in LLQ w/ green liquid stool - Rectal Exam Additional comments: multiple wounds at different stages of healing, superior left perirectal wound w / some purulent drainage noted. Packing replaced. No evidence of new abscess formation - Neurological Exam Neurological exam: Alert, Oriented x3 - Psychiatric Exam Psychiatric exam: Normal Affect, Normal Mood - Skin Skin Exam: Dry, Warm Results - Vital Signs Recent Vital Signs: Last Vital Signs Temp 98.9 F 11/17/16 15:47 Pulse 102 H 11/17/16 15:47 Resp 20 11/17/16 15:47 BP 104/70 11/17/16 15:47 Pulse Ox 96 11/17/16 15:47 - Labs Result Diagrams: 11/16/16 20:35 11/16/16 20:35 Assessment & Plan - Assessment and Plan (Free Text) Assessment: 21 y/o male w/ Crohn's disease s/p nitza-rectal abscess drainage, multiple occasions Plan: -cont wound care as prescribed -packing should be changed MWF -keep wounds clean and dry -lidocaine jelly to rectal area prn -cont diet -cont abx -no surgical intervention at this time -d/w Dr. Claudia Oscar PGY1 <Temo Taylor - Last Filed: 11/23/16 11:44> Meds - Medications Medications: Current Medications Diphenhydramine HCl (Benadryl) 25 mg IVP Q2 PRN PRN Reason: to be given w/ dilaudid Last Admin: 11/23/16 10:03 Dose: 25 mg Hydromorphone HCl (Dilaudid) 2 mg IVP Q2 PRN PRN Reason: Pain, moderate (4-7) Last Admin: 11/23/16 10:08 Dose: 2 mg Metronidazole (Flagyl) 100 mls @ 100 mls/hr IVPB Q8H [facility] Last Admin: 11/23/16 10:56 Dose: 100 mls/hr Cefepime HCl (Maxipime Iv 1 Gm Premix) 50 mls @ 100 mls/hr IVPB Q8H [facility] Last Admin: 11/23/16 10:10 Dose: 100 mls/hr Ondansetron HCl (Zofran Inj) 4 mg IVP Q6 PRN PRN Reason: Nausea/Vomiting Last Admin: 11/22/16 14:57 Dose: 4 mg Pantoprazole Sodium (Protonix Ec Tab) 40 mg PO DAILY [facility] Last Admin: 11/23/16 10:02 Dose: 40 mg Results - Vital Signs Recent Vital Signs: Last Vital Signs Temp 97.9 F 11/23/16 08:01 Pulse 87 11/23/16 08:01 Resp 20 11/23/16 08:01 BP 111/69 11/23/16 08:01 Pulse Ox 95 11/23/16 08:01 - Labs Result Diagrams: 11/23/16 07:30 11/23/16 07:30 Labs: Laboratory Results - last 24 hr 11/23/16 07:30 WBC 11.6 H RBC 4.54 Hgb 9.0 L Hct 29.5 L MCV 65.0 L MCH 19.7 L MCHC 30.4 L RDW 16.1 H Plt Count 541 H MPV 8.1 Neut % (Auto) 57.4 Lymph % (Auto) 30.0 [place] % (Auto) 6.0 Eos % (Auto) 5.8 H Baso % (Auto) 0.8 Neut # 6.7 Lymph # 3.5 [place] # 0.7 Eos # 0.7 Baso # 0.1 Sodium 136 Potassium 4.0 Chloride 96 L Carbon Dioxide 26 Anion Gap 18 BUN 5 L Creatinine 0.7 L Est GFR ( Amer) > 60 Est GFR (Non-Af Amer) > 60 Random Glucose 91 Calcium 7.9 L Total Bilirubin 0.1 L AST 23 ALT < 6 L D Alkaline Phosphatase 92 Total Protein 7.3 Albumin 3.4 L Globulin 3.9 Albumin/Globulin Ratio 0.9 L Attending/Attestation - Attestation I have personally seen and examined this patient.: Yes I have fully participated in the care of the patient.: Yes I have reviewed all pertinent clinical information: Yes Notes (Text): 11/23/16 11:44 Pt was seen and examined at bedside on 11/18/16 Agree with above note and assessment. Pt with Perineal wound and Crohns dis Local wound care DC plan Wound care consult Plan d.w pt in detail Risk and benefit explained in detail.
[2016-11-17] MEDS ORDERED: Lidocaine 2% Jelly (5 ml) TOP ONE (19:15)
[2016-11-18] MEDS: DiphenhydrAMINE 50 mg/ml Inj IVP PRN ×11 (00:36→22:31)
[2016-11-18] MEDS: ceFAZolin IV 1 gm in Dextrose 50 ML IVPB SCH (02:38)
--- NOTE | 2016-11-18 09:04 | CON ---
DATE: 11/17/2016 REQUESTING PHYSICIAN: Dr. Eric Barrett. HISTORY OF PRESENT ILLNESS: This patient is a 21-year-old male. He has history of Crohn disease and depression. He presented with severe perineal pain and he has been here before. He has multiple pe rineal abscesses. He suffers from Crohn disease. He was just discharged home from the hospital yest erday and now returns. He denies any fever. Complains of lower abdominal pain and perineal pain. H is pain scale was 8/10. He denied any fever; however, he was here and was recently discharged. Temp erature is 98.6, pulse is 111, blood pressure is 112/75, respirations are 18. He has history of Croh n's, had colostomy done in 2015 and suffers from depression. He was here with multiple abscesses and underwent I and D's with Dr. Taylor and now comes back again for drainage of buttock skin and he had excision of back skin. All these were done on 09/23/2016, and then he had a wound VAC and he wa s on antibiotics and went to [facility] at that time I think. FAMILY HISTORY: Noncontributory. SOCIAL HISTORY: Negative for smoking or drinking. IMMUNIZATION HISTORY: Negative. REVIEW OF SYSTEMS: He denies any fever, denies any nausea or vomiting today. He does complain of se arabella perineal pain and he is concerned why he continues to have abscesses in here. However, I do not see him in any Crohn's treatment. He does have a colostomy. The colostomy was leaking when I went to see him today, so he was not ready for me to examine him well. However, he had his concerns that he cannot get better and he is suffering because of pain. He was on cefazolin before, so I started h im on the same antibiotic. He is on Benadryl and Dilaudid 2 mg q. 2 hours. He suffers from excrucia ting pain from Crohn's. Denies any urinary complaints. Denies any problems with the colostomy other perez. No nausea, no vomiting, no shortness of breath, no chest pain, no abdominal pain. At present it is controlled by the pain medications. PHYSICAL EXAMINATION: VITAL SIGNS: I find his temperature is 98.9, pulse is 102, blood pressure 104/70, respirations are 2 0, saturations 96% on room air. HEENT: Head is atraumatic, normocephalic. NECK: Supple. YARELIS is flat. Trachea is central. No lymphadenopathy present. LUNGS: Clear. No crackles or rales present. HEART: S1, S2 is regular. No murmurs present. ABDOMEN: Soft. There is a colostomy present which is functioning well, but is leaking at this time. He does not want to expose the groin area or perineum which has positive drainage from the incision s in perineal area. EXTREMITIES: No edema, clubbing or cyanosis. LABORATORY DATA: Noted. White count is 10.1, hemoglobin 9.9, hematocrit 31.7, and platelet count is 573. Sodium is 137, potassium 3.9, chloride 95, CO2 is 25, BUN is 8, creatinine 0.7. OTHER MEDICATIONS: There are no other medications. IMAGING: Chest x-ray was done. Chest x-ray shows no active disease, stable position of PICC line, h e has a PICC line present. MICROBIOLOGY: He had a wound culture done on 11/06/2016 which has corynebacterium, and no ID was don e on it. He also had a wound culture which was on 10/23/2016 which showed klebsiella, and the klebsi juan francisco was sensitive to cefazolin, cefepime, ceftriaxone and Cipro, so he is sensitive to all these. So at this time, I find the sensitivity of the klebsiella was better to cefepime and ceftriaxone and to Cipro and to imipenem. Will see how it is evaluated tomorrow by the surgeon and then decide to ad gomez the antibiotics. Actually, he was seen after a left by Dr. Claudia Ballard. Will follow. Santosh Daniel MD cc: [id number] TT: 11/18/2016 09:03:44 Confirmation # [id number] Dictation # [id number] mn
--- NOTE | 2016-11-18 10:28 | CP.PCM.PN ---
Subjective - Date & Time of Evaluation Date of Evaluation: 11/18/16 Time of Evaluation: 10:20 - Subjective Subjective: clinically same Objective - Vital Signs/Intake and Output Vital Signs (last 24 hours): Temp Pulse Resp BP Pulse Ox 97.9 F 90 20 108/72 100 11/18/16 07:08 11/18/16 07:08 11/18/16 07:08 11/18/16 07:08 11/18/16 07:08 Intake and Output: 11/18/16 11/18/16 06:59 18:59 Intake Total 815 Balance 815 - Medications Medications: Current Medications Diphenhydramine HCl (Benadryl) 25 mg IVP Q2 PRN PRN Reason: to be given w/ dilaudid Last Admin: 11/18/16 08:53 Dose: 25 mg Hydromorphone HCl (Dilaudid) 2 mg IVP Q2 PRN PRN Reason: Pain, moderate (4-7) Last Admin: 11/18/16 08:47 Dose: 2 mg Cefepime HCl 1 gm/ Sodium (Chloride) 50 mls @ 100 mls/hr IVPB Q8H [facility] Metronidazole (Flagyl) 100 mls @ 100 mls/hr IVPB Q8 [facility] - Constitutional Appears: Well - Head Exam Head Exam: ATRAUMATIC, NORMAL INSPECTION, NORMOCEPHALIC - Eye Exam Eye Exam: EOMI, Normal appearance, PERRL Pupil Exam: NORMAL ACCOMODATION, PERRL - ENT Exam ENT Exam: Mucous Membranes Moist, Normal Exam - Neck Exam Neck Exam: Full ROM, Normal Inspection. absent: Lymphadenopathy - Respiratory Exam Respiratory Exam: Decreased Breath Sounds - Cardiovascular Exam Cardiovascular Exam: REGULAR RHYTHM, +S1, +S2 - GI/Abdominal Exam GI & Abdominal Exam: Soft, Diminished Bowel Sounds - Rectal Exam Rectal Exam: Deferred Assessment and Plan (1) DVT (deep venous thrombosis) Status: Acute (2) Diarrhea Status: Acute (3) Intractable pain Status: Acute (4) Wound of right buttock Status: Acute (5) Abdominal pain Status: Acute (6) Abscess Status: Acute (7) Constipation Status: Acute (8) Crohn disease Status: Acute (9) Diarrhea Status: Acute (10) Encounter for wound care Status: Acute (11) Fever Status: Acute (12) Foreign body Status: Acute (13) Intractable abdominal pain Status: Acute (14) Prophylactic measure Status: Acute (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
[2016-11-18 11:44] LABS: BASO # 0.1 K/uL (0.0-0.2); EOS # 0.6 K/uL (0.0-0.7); EOS % 5.3 % (0.0-4.0); HEMATOCRIT 30.5 % (35.0-51.0); LYMPH # 2.9 K/uL (1.0-4.3); LYMPH % 24.2 % (20.0-40.0); MEAN CELL VOLUME 65.9 fL (80.0-94.0); MEAN CORPUSCULAR HEMOGLOBIN 20.3 pg (27.0-31.0); MEAN CORPUSCULAR HGB CONC 30.8 g/dL (33.0-37.0); MEAN PLATELET VOLUME 8.2 fL (7.2-11.7); MONO # 0.7 K/uL (0.0-0.8); MONO % 5.9 % (0.0-10.0); RED CELL DISTRIBUTION WIDTH 16.2 % (11.5-14.5); WHITE BLOOD COUNT 11.9 K/uL (4.8-10.8)
[2016-11-18] MEDS: Cefepime 1 GM in Sodium Chloride 0.9% 100 ML IVPB SCH ×2 (11:50→19:48)
[2016-11-18 11:55] LABS: CHLORIDE 98 mmol/L (98-107); POTASSIUM 3.9 mmol/L (3.6-5.2); SODIUM 137 mmol/L (132-148)
[2016-11-18 11:57] LABS: ALB/GLOB RATIO 0.8 (1.0-2.1); ALKALINE PHOSPHATASE 108 U/L (38-126); AST/SGOT 20 U/L (17-59); BILIRUBIN,TOTAL 0.2 mg/dL (0.2-1.3); CARBON DIOXIDE 26 mmol/L (22-30); GFR AFRICAN-AMERICAN > 60; TOTAL PROTEIN 7.7 g/dL (6.3-8.3)
[2016-11-18 11:58] LABS: ALT/SGPT 18 U/L (21-72); BLOOD UREA NITROGEN 5 mg/dL (9-20); CALCIUM 8.9 mg/dl (8.6-10.4); GLUCOSE,RANDOM 69 mg/dL (75-110)
[2016-11-18] MEDS: metroNIDAZOLE IV 500 mg/100 ml 100 ML IVPB SCH ×2 (13:17→19:48)
--- NOTE | 2016-11-18 14:50 | CP.PCM.PN ---
<Rita Ortiz - Last Filed: 11/18/16 14:45> Subjective - Date & Time of Evaluation Date of Evaluation: 11/18/16 Time of Evaluation: 10:30 - Subjective Subjective: PGY2 Medicine Note - Dr. Eric Barrett's service: Patient seen and examined at bedside this AM. Patient says he came back into the hospital for pain and new abscess in his left axilla. Patient says the pain in his groin area and buttocks is very bad. Patient was walking from bathroom to bed when I saw him. Objective - Vital Signs/Intake and Output Vital Signs (last 24 hours): Temp Pulse Resp BP Pulse Ox 97.9 F 90 20 108/72 100 11/18/16 07:08 11/18/16 07:08 11/18/16 07:08 11/18/16 07:08 11/18/16 07:08 Intake and Output: 11/18/16 11/18/16 06:59 18:59 Intake Total 815 Balance 815 - Medications Medications: Current Medications Diphenhydramine HCl (Benadryl) 25 mg IVP Q2 PRN PRN Reason: to be given w/ dilaudid Last Admin: 11/18/16 14:43 Dose: 25 mg Hydromorphone HCl (Dilaudid) 2 mg IVP Q2 PRN PRN Reason: Pain, moderate (4-7) Last Admin: 11/18/16 14:43 Dose: 2 mg Cefepime HCl 1 gm/ Sodium (Chloride) 100 mls @ 100 mls/hr IVPB Q8H [facility] Last Admin: 11/18/16 11:50 Dose: 100 mls/hr Metronidazole (Flagyl) 100 mls @ 100 mls/hr IVPB Q8H [facility] Last Admin: 11/18/16 13:17 Dose: 100 mls/hr - Labs Labs: 11/18/16 11:31 11/18/16 11:31 - Constitutional Appears: Non-toxic, No Acute Distress - Head Exam Head Exam: NORMAL INSPECTION - Eye Exam Eye Exam: EOMI - ENT Exam ENT Exam: Mucous Membranes Moist - Respiratory Exam Respiratory Exam: Clear to Ausculation Bilateral, NORMAL BREATHING PATTERN. absent: Rales, Rhonchi, Wheezes - Cardiovascular Exam Cardiovascular Exam: REGULAR RHYTHM, +S1, +S2. absent: Gallop, Rubs, Murmur - GI/Abdominal Exam GI & Abdominal Exam: Soft, Normal Bowel Sounds. absent: Firm, Guarding, Tenderness - Extremities Exam Extremities Exam: Normal Capillary Refill. absent: Pedal Edema - Neurological Exam Neurological Exam: Alert - Psychiatric Exam Psychiatric exam: Normal Affect, Normal Mood - Skin Additional comments: multiple opened abscesses. one specifically seen in left axilla of 1.5cm in length approximately. Assessment and Plan - Assessment and Plan (Free Text) Assessment: 1. Abscesses Surgery consult - Dr. Taylor - help appreciated Continue wound care and packing change MWF ID consult - Dr. Daniel - help appreciated Flagyl 500mg IVPB Q8H Cefepime 1gm IVPB Q8H 2. Crohn's disease Continue ostomy care 3. Intractable abdominal and skin pain Lidocaine jelly Dilaudid 2mg IVP Q2 PRN pain - will try to decrease 4. Prophylaxis Protonix 40mg PO daily [facility] <Osvaldo Barrett S - Last Filed: 11/18/16 18:15> Objective - Vital Signs/Intake and Output Vital Signs (last 24 hours): Temp Pulse Resp BP Pulse Ox 98.1 F 100 H 20 110/79 98 11/18/16 15:42 11/18/16 15:42 11/18/16 15:42 11/18/16 15:42 11/18/16 15:42 - Medications Medications: Current Medications Diphenhydramine HCl (Benadryl) 25 mg IVP Q2 PRN PRN Reason: to be given w/ dilaudid Last Admin: 11/18/16 16:41 Dose: 25 mg Hydromorphone HCl (Dilaudid) 1.5 mg IVP Q2 PRN PRN Reason: Pain, moderate (4-7) Last Admin: 11/18/16 16:44 Dose: 1.5 mg Cefepime HCl 1 gm/ Sodium (Chloride) 100 mls @ 100 mls/hr IVPB Q8H [facility] Last Admin: 11/18/16 11:50 Dose: 100 mls/hr Metronidazole (Flagyl) 100 mls @ 100 mls/hr IVPB Q8H [facility] Last Admin: 11/18/16 13:17 Dose: 100 mls/hr Pantoprazole Sodium (Protonix Ec Tab) 40 mg PO DAILY [facility] Last Admin: 11/18/16 15:39 Dose: 40 mg Attending/Attestation - Attestation I have personally seen and examined this patient.: Yes I have fully participated in the care of the patient.: Yes I have reviewed all pertinent clinical information, including history, physical exam and plan: Yes Notes (Text): 11/18/16 18:15 case seen and discuse [facility] staff
[2016-11-18] MEDS: Pantoprazole 40 mg EC Tab PO SCH (15:39)
[2016-11-19] MEDS: DiphenhydrAMINE 50 mg/ml Inj IVP PRN ×10 (00:42→21:56)
[2016-11-19] MEDS: Cefepime 1 GM in Sodium Chloride 0.9% 100 ML IVPB SCH ×2 (01:30→09:31)
[2016-11-19] MEDS: metroNIDAZOLE IV 500 mg/100 ml 100 ML IVPB SCH ×3 (02:30→18:59)
[2016-11-19 07:19] LABS: BASO # 0.1 K/uL (0.0-0.2); BASO % 0.9 % (0.0-2.0); EOS # 0.5 K/uL (0.0-0.7); EOS % 5.8 % (0.0-4.0); HEMATOCRIT 29.8 % (35.0-51.0); LYMPH # 2.1 K/uL (1.0-4.3); LYMPH % 24.3 % (20.0-40.0); MEAN CELL VOLUME 65.2 fL (80.0-94.0); MEAN CORPUSCULAR HEMOGLOBIN 19.7 pg (27.0-31.0); MEAN CORPUSCULAR HGB CONC 30.3 g/dL (33.0-37.0); MEAN PLATELET VOLUME 8.3 fL (7.2-11.7); MONO # 0.6 K/uL (0.0-0.8); MONO % 7.4 % (0.0-10.0); RED CELL DISTRIBUTION WIDTH 15.8 % (11.5-14.5); WHITE BLOOD COUNT 8.6 K/uL (4.8-10.8)
[2016-11-19 07:29] LABS: CHLORIDE 95 mmol/L (98-107); POTASSIUM 4.2 mmol/L (3.6-5.2); SODIUM 138 mmol/L (132-148)
[2016-11-19 07:31] LABS: ALKALINE PHOSPHATASE 103 U/L (38-126); AST/SGOT 17 U/L (17-59); BILIRUBIN,TOTAL 0.1 mg/dL (0.2-1.3); CARBON DIOXIDE 27 mmol/L (22-30); GFR AFRICAN-AMERICAN > 60
[2016-11-19 07:32] LABS: ALB/GLOB RATIO 0.9 (1.0-2.1); ALT/SGPT 10 U/L (21-72); BLOOD UREA NITROGEN 5 mg/dL (9-20); GLUCOSE,RANDOM 91 mg/dL (75-110); TOTAL PROTEIN 7.2 g/dL (6.3-8.3)
[2016-11-19 07:33] LABS: CALCIUM 8.7 mg/dl (8.6-10.4)
--- NOTE | 2016-11-19 09:22 | CP.PCM.PN ---
<Rita Ortiz H - Last Filed: 11/19/16 09:18> Subjective - Date & Time of Evaluation Date of Evaluation: 11/19/16 Time of Evaluation: 09:10 - Subjective Subjective: PGY2 Medicine Note - Dr. Eric Barrett's service: Patient seen and examined at bedside this AM. Patient is tolerating pain on slightly lower dilaudid regimen. Will continue to try to decrease. Patient denies fever, chills, chest pain, diarrhea, dysuria. Objective - Vital Signs/Intake and Output Vital Signs (last 24 hours): Temp Pulse Resp BP Pulse Ox 97.1 F L 95 H 20 109/63 96 11/19/16 07:00 11/19/16 07:00 11/19/16 07:00 11/19/16 07:00 11/19/16 07:00 Intake and Output: 11/19/16 11/19/16 06:59 18:59 Intake Total 200 Balance 200 - Medications Medications: Current Medications Diphenhydramine HCl (Benadryl) 25 mg IVP Q2 PRN PRN Reason: to be given w/ dilaudid Last Admin: 11/19/16 08:12 Dose: 25 mg Hydromorphone HCl (Dilaudid) 1 mg IVP Q2 PRN PRN Reason: Pain, moderate (4-7) Cefepime HCl 1 gm/ Sodium (Chloride) 100 mls @ 100 mls/hr IVPB Q8H [facility] Last Admin: 11/19/16 01:30 Dose: 100 mls/hr Metronidazole (Flagyl) 100 mls @ 100 mls/hr IVPB Q8H [facility] Last Admin: 11/19/16 02:30 Dose: 100 mls/hr Pantoprazole Sodium (Protonix Ec Tab) 40 mg PO DAILY [facility] Last Admin: 11/18/16 15:39 Dose: 40 mg - Labs Labs: 11/19/16 07:03 11/19/16 07:03 - Constitutional Appears: Non-toxic, No Acute Distress - Head Exam Head Exam: NORMAL INSPECTION - Eye Exam Eye Exam: EOMI - ENT Exam ENT Exam: Mucous Membranes Moist - Respiratory Exam Respiratory Exam: Clear to Ausculation Bilateral, NORMAL BREATHING PATTERN. absent: Rales, Rhonchi, Wheezes - Cardiovascular Exam Cardiovascular Exam: REGULAR RHYTHM, +S1, +S2. absent: Gallop, Rubs, Murmur - GI/Abdominal Exam GI & Abdominal Exam: Soft. absent: Tenderness Additional comments: ostomy - Extremities Exam Extremities Exam: Normal Capillary Refill. absent: Pedal Edema - Neurological Exam Neurological Exam: Alert, Oriented x3 - Psychiatric Exam Psychiatric exam: Normal Affect, Normal Mood - Skin Skin Exam: Normal Color, Warm Additional comments: multiple abscesses Assessment and Plan - Assessment and Plan (Free Text) Assessment: 1. Abscesses Blood culture negative x 48 hours Wound culture + for corynebacterium species Surgery consult - Dr. Taylor - help appreciated Continue wound care and packing change MW ID consult - Dr. Daniel - help appreciated Flagyl 500mg IVPB Q8H Cefepime 1gm IVPB Q8H 2. Crohn's disease Continue ostomy care 3. Intractable abdominal and skin pain Lidocaine jelly Dilaudid 1.5mg IVP Q2 last night--> Dilaudid 1mg IVP Q2 today Benadryl 25mg IVP Q2 wiht dilaudid 4. Prophylaxis Protonix 40mg PO daily [facility] <Osvaldo Barrett S - Last Filed: 11/25/16 00:07> Objective - Vital Signs/Intake and Output Vital Signs (last 24 hours): Temp Pulse Resp BP Pulse Ox 98 F 85 20 103/71 98 11/24/16 15:28 11/24/16 15:28 11/24/16 15:28 11/24/16 15:28 11/24/16 15:28 Intake and Output: 11/24/16 11/25/16 18:59 06:59 Output Total 300 Balance -300 - Labs Labs: 11/24/16 11:17 11/23/16 07:30 Attending/Attestation - Attestation I have personally seen and examined this patient.: Yes I have fully participated in the care of the patient.: Yes I have reviewed all pertinent clinical information, including history, physical exam and plan: Yes Notes (Text): case seen and discussed with staff and resident management as agreed
[2016-11-19] MEDS: Pantoprazole 40 mg EC Tab PO SCH (09:32)
[2016-11-19] MEDS: HYDROmorphone 1 mg/ml ISec IVP PRN ×6 (11:24→21:56)
[2016-11-19] MEDS: Cefepime IV 1 gm in Dextrose 50 ML IVPB SCH (18:00)
--- NOTE | 2016-11-19 18:15 | CP.PCM.PN ---
Subjective - Date & Time of Evaluation Date of Evaluation: 11/19/16 Time of Evaluation: 10:40 - Subjective Subjective: clinically same Objective - Vital Signs/Intake and Output Vital Signs (last 24 hours): Temp Pulse Resp BP Pulse Ox 98.4 F 102 H 20 101/73 100 11/19/16 15:00 11/19/16 15:00 11/19/16 15:00 11/19/16 15:00 11/19/16 15:00 Intake and Output: 11/19/16 11/19/16 06:59 18:59 Intake Total 200 450 Output Total 600 Balance 200 -150 - Medications Medications: Current Medications Diphenhydramine HCl (Benadryl) 25 mg IVP Q2 PRN PRN Reason: to be given w/ dilaudid Last Admin: 11/19/16 17:55 Dose: 25 mg Hydromorphone HCl (Dilaudid) 1 mg IVP Q2 PRN PRN Reason: Pain, moderate (4-7) Last Admin: 11/19/16 17:56 Dose: 1 mg Metronidazole (Flagyl) 100 mls @ 100 mls/hr IVPB Q8H [facility] Last Admin: 11/19/16 10:35 Dose: 100 mls/hr Cefepime HCl (Maxipime Iv 1 Gm Premix) 50 mls @ 100 mls/hr IVPB Q8H [facility] Last Admin: 11/19/16 18:00 Dose: 100 mls/hr Pantoprazole Sodium (Protonix Ec Tab) 40 mg PO DAILY [facility] Last Admin: 11/19/16 09:32 Dose: 40 mg - Labs Labs: 11/19/16 07:03 11/19/16 07:03 - Constitutional Appears: Well - Head Exam Head Exam: ATRAUMATIC, NORMAL INSPECTION, NORMOCEPHALIC - Eye Exam Eye Exam: EOMI, Normal appearance, PERRL Pupil Exam: NORMAL ACCOMODATION, PERRL - ENT Exam ENT Exam: Mucous Membranes Moist, Normal Exam - Neck Exam Neck Exam: Full ROM, Normal Inspection. absent: Lymphadenopathy - Respiratory Exam Respiratory Exam: Decreased Breath Sounds - Cardiovascular Exam Cardiovascular Exam: REGULAR RHYTHM, +S1, +S2 - GI/Abdominal Exam GI & Abdominal Exam: Soft, Diminished Bowel Sounds - Rectal Exam Rectal Exam: Deferred Assessment and Plan (1) DVT (deep venous thrombosis) Status: Acute (2) Diarrhea Status: Acute (3) Intractable pain Status: Acute (4) Wound of right buttock Status: Acute (5) Abdominal pain Status: Acute (6) Abscess Status: Acute (7) Constipation Status: Acute (8) Crohn disease Status: Acute (9) Diarrhea Status: Acute (10) Encounter for wound care Status: Acute (11) Fever Status: Acute (12) Foreign body Status: Acute (13) Intractable abdominal pain Status: Acute (14) Prophylactic measure Status: Acute (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
--- NOTE | 2016-11-19 20:19 | CP.PCM.PN ---
Subjective - Date & Time of Evaluation Date of Evaluation: 11/19/16 Time of Evaluation: 02:00 - Subjective Subjective: dictated Objective - Vital Signs/Intake and Output Vital Signs (last 24 hours): Temp Pulse Resp BP Pulse Ox 98.4 F 102 H 20 101/73 100 11/19/16 15:00 11/19/16 15:00 11/19/16 15:00 11/19/16 15:00 11/19/16 15:00 Intake and Output: 11/19/16 11/20/16 18:59 06:59 Intake Total 450 Output Total 600 Balance -150 - Medications Medications: Current Medications Diphenhydramine HCl (Benadryl) 25 mg IVP Q2 PRN PRN Reason: to be given w/ dilaudid Last Admin: 11/19/16 20:00 Dose: 25 mg Hydromorphone HCl (Dilaudid) 1 mg IVP Q2 PRN PRN Reason: Pain, moderate (4-7) Last Admin: 11/19/16 20:03 Dose: 1 mg Metronidazole (Flagyl) 100 mls @ 100 mls/hr IVPB Q8H [facility] Last Admin: 11/19/16 18:59 Dose: 100 mls/hr Cefepime HCl (Maxipime Iv 1 Gm Premix) 50 mls @ 100 mls/hr IVPB Q8H [facility] Last Admin: 11/19/16 18:00 Dose: 100 mls/hr Pantoprazole Sodium (Protonix Ec Tab) 40 mg PO DAILY [facility] Last Admin: 11/19/16 09:32 Dose: 40 mg - Labs Labs: 11/19/16 07:03 11/19/16 07:03
--- NOTE | 2016-11-19 21:08 | PN ---
DATE: 11/19/2016 SUBJECTIVE: The patient was seen today and he complained of some pain in his left axilla and he has a small lymph node present there. He says he had infection in the left axilla and he is here with ab scesses in the perineum, so I was wondering if he has Hidradenitis suppurativa, but I am not too sure about it. He denied any fever or chills. No chest pain, no diarrhea. He still complains of pain, but he is feeling slightly better. He says he has not been home since 3 months and back and forth. PHYSICAL EXAMINATION: VITAL SIGNS: Today, temperature was 97.1, pulse 95, blood pressure 109/63, respirations are 20. HEENT: Head is atraumatic, normocephalic. He has a crane on. NECK: Supple. LUNGS: Clear. No crackles or rales present. HEART: S1, S2 is regular. No murmurs appreciated. ABDOMEN: Soft, nontender. EXTREMITIES: No edema, clubbing or cyanosis. LABORATORY DATA: He does have a colostomy. His wound came out. He has wounds. Dr. Taylor said to continue with wound care and they are changing the wound packings on Thursday, Thursday, and . Micro perez, the patient's wound culture is growing Corynebacterium and gram-negative tahir. It did grow , 2 cultures. He is on Maxipime and Flagyl at this time, will continue those. Corynebact erium may be just a skin contaminant, but we will check. Also labs were noted. White count is 8.6. His BUN is 5, creatinine 0.7. So at this time, he is feeling a little better; hopefully, he improve s then he goes back on the treatment for his Crohn's disease. This left axilla lymph node I am uncle ar why he would have that as there is no infection on the arm, but he does have a PICC line on the le ft arm, which appears to be stable and no infection noted at the site at this time. Will follow. Sadhna María MD cc: [id number] TT: 11/19/2016 21:07:36 Confirmation # [id number] Dictation # [id number]
[2016-11-20] MEDS: DiphenhydrAMINE 50 mg/ml Inj IVP PRN ×11 (00:09→22:32)
[2016-11-20] MEDS: Cefepime IV 1 gm in Dextrose 50 ML IVPB SCH ×3 (02:25→18:10)
[2016-11-20] MEDS: metroNIDAZOLE IV 500 mg/100 ml 100 ML IVPB SCH ×3 (03:30→19:20)
[2016-11-20 07:34] LABS: BASO # 0.1 K/uL (0.0-0.2); BASO % 0.8 % (0.0-2.0); EOS # 0.8 K/uL (0.0-0.7); EOS % 5.9 % (0.0-4.0); HEMATOCRIT 30.3 % (35.0-51.0); LYMPH # 4.3 K/uL (1.0-4.3); LYMPH % 31.9 % (20.0-40.0); MEAN CELL VOLUME 65.1 fL (80.0-94.0); MEAN CORPUSCULAR HEMOGLOBIN 20.1 pg (27.0-31.0); MEAN CORPUSCULAR HGB CONC 30.8 g/dL (33.0-37.0); MEAN PLATELET VOLUME 8.8 fL (7.2-11.7); MONO # 0.9 K/uL (0.0-0.8); MONO % 6.5 % (0.0-10.0); NRBC % 0.1 % (0.0-2.0)
[2016-11-20 08:02] LABS: WHITE BLOOD COUNT 13.4 K/uL (4.8-10.8)
[2016-11-20 08:19] LABS: CHLORIDE 101 mmol/L (98-107); SODIUM 137 mmol/L (132-148)
[2016-11-20 08:20] LABS: POTASSIUM 3.9 mmol/L (3.6-5.2)
[2016-11-20 08:22] LABS: ALB/GLOB RATIO 0.8 (1.0-2.1); ALKALINE PHOSPHATASE 113 U/L (38-126); ALT/SGPT 16 U/L (21-72); AST/SGOT 18 U/L (17-59); BILIRUBIN,TOTAL 0.2 mg/dL (0.2-1.3); BLOOD UREA NITROGEN 8 mg/dL (9-20); CALCIUM 7.9 mg/dl (8.6-10.4); CARBON DIOXIDE 22 mmol/L (22-30); GFR AFRICAN-AMERICAN > 60; GLUCOSE,RANDOM 92 mg/dL (75-110); TOTAL PROTEIN 7.2 g/dL (6.3-8.3)
[2016-11-20] MEDS: Pantoprazole 40 mg EC Tab PO SCH (09:54)
--- NOTE | 2016-11-20 11:53 | CP.PCM.PN ---
Subjective - Date & Time of Evaluation Date of Evaluation: 11/20/16 Time of Evaluation: 11:00 - Subjective Subjective: clincally same Objective - Vital Signs/Intake and Output Vital Signs (last 24 hours): Temp Pulse Resp BP Pulse Ox 98.2 F 100 H 18 103/65 98 11/20/16 08:00 11/20/16 11:26 11/20/16 11:26 11/20/16 11:26 11/20/16 11:26 Intake and Output: 11/20/16 11/20/16 06:59 18:59 Intake Total 690 Output Total 100 Balance 590 - Medications Medications: Current Medications Diphenhydramine HCl (Benadryl) 25 mg IVP Q2 PRN PRN Reason: to be given w/ dilaudid Last Admin: 11/20/16 11:21 Dose: 25 mg Hydromorphone HCl (Dilaudid) 2 mg IVP Q2 PRN PRN Reason: Pain, moderate (4-7) Last Admin: 11/20/16 11:21 Dose: 2 mg Metronidazole (Flagyl) 100 mls @ 100 mls/hr IVPB Q8H [facility] Last Admin: 11/20/16 03:30 Dose: 100 mls/hr Cefepime HCl (Maxipime Iv 1 Gm Premix) 50 mls @ 100 mls/hr IVPB Q8H [facility] Last Admin: 11/20/16 09:54 Dose: 100 mls/hr Pantoprazole Sodium (Protonix Ec Tab) 40 mg PO DAILY [facility] Last Admin: 11/20/16 09:54 Dose: 40 mg - Labs Labs: 11/20/16 06:50 11/20/16 06:50 - Constitutional Appears: Well - Head Exam Head Exam: ATRAUMATIC, NORMAL INSPECTION, NORMOCEPHALIC - Eye Exam Eye Exam: EOMI, Normal appearance, PERRL Pupil Exam: NORMAL ACCOMODATION, PERRL - ENT Exam ENT Exam: Mucous Membranes Moist, Normal Exam - Neck Exam Neck Exam: Full ROM, Normal Inspection. absent: Lymphadenopathy - Respiratory Exam Respiratory Exam: Decreased Breath Sounds - Cardiovascular Exam Cardiovascular Exam: REGULAR RHYTHM, +S1, +S2 - GI/Abdominal Exam GI & Abdominal Exam: Soft, Diminished Bowel Sounds - Rectal Exam Rectal Exam: Deferred Assessment and Plan (1) DVT (deep venous thrombosis) Status: Acute (2) Diarrhea Status: Acute (3) Intractable pain Status: Acute (4) Wound of right buttock Status: Acute (5) Abdominal pain Status: Acute (6) Abscess Status: Acute (7) Constipation Status: Acute (8) Crohn disease Status: Acute (9) Diarrhea Status: Acute (10) Encounter for wound care Status: Acute (11) Fever Status: Acute (12) Foreign body Status: Acute (13) Intractable abdominal pain Status: Acute (14) Prophylactic measure Status: Acute (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 - Assessment and Plan (Free Text) Plan: Continue same Consults on board Blood culture negative after 48 hrs. Cefepime and Flagyl Wound care
[2016-11-21] MEDS: DiphenhydrAMINE 50 mg/ml Inj IVP PRN ×9 (01:11→22:38)
[2016-11-21] MEDS: Cefepime IV 1 gm in Dextrose 50 ML IVPB SCH ×3 (01:30→18:16)
[2016-11-21] MEDS: metroNIDAZOLE IV 500 mg/100 ml 100 ML IVPB SCH ×3 (04:02→19:26)
[2016-11-21 07:07] LABS: BASO # 0.1 K/uL (0.0-0.2); BASO % 0.8 % (0.0-2.0); EOS # 0.6 K/uL (0.0-0.7); EOS % 7.8 % (0.0-4.0); HEMATOCRIT 29.1 % (35.0-51.0); LYMPH # 2.7 K/uL (1.0-4.3); LYMPH % 32.9 % (20.0-40.0); MEAN CELL VOLUME 65.5 fL (80.0-94.0); MEAN CORPUSCULAR HEMOGLOBIN 19.9 pg (27.0-31.0); MEAN CORPUSCULAR HGB CONC 30.4 g/dL (33.0-37.0); MEAN PLATELET VOLUME 7.9 fL (7.2-11.7); MONO # 0.6 K/uL (0.0-0.8); MONO % 7.6 % (0.0-10.0); RED CELL DISTRIBUTION WIDTH 15.5 % (11.5-14.5); WHITE BLOOD COUNT 8.2 K/uL (4.8-10.8)
[2016-11-21 07:25] LABS: CHLORIDE 97 mmol/L (98-107); POTASSIUM 4.6 mmol/L (3.6-5.2); SODIUM 139 mmol/L (132-148)
[2016-11-21 07:27] LABS: ALB/GLOB RATIO 0.9 (1.0-2.1); ALKALINE PHOSPHATASE 103 U/L (38-126); AST/SGOT 41 U/L (17-59); BILIRUBIN,TOTAL 0.5 mg/dL (0.2-1.3); CARBON DIOXIDE 28 mmol/L (22-30); GFR AFRICAN-AMERICAN > 60
[2016-11-21 07:28] LABS: ALT/SGPT 15 U/L (21-72); BLOOD UREA NITROGEN 4 mg/dL (9-20); CALCIUM 8.1 mg/dl (8.6-10.4); GLUCOSE,RANDOM 79 mg/dL (75-110)
--- NOTE | 2016-11-21 10:02 | CP.PCM.PN ---
Subjective - Date & Time of Evaluation Date of Evaluation: 11/21/16 Time of Evaluation: 10:40 - Subjective Subjective: clinically same Objective - Vital Signs/Intake and Output Vital Signs (last 24 hours): Temp Pulse Resp BP Pulse Ox 97.7 F 82 18 102/71 98 11/21/16 08:00 11/21/16 08:00 11/21/16 08:00 11/21/16 08:00 11/21/16 08:00 Intake and Output: 11/21/16 11/21/16 06:59 18:59 Output Total 450 Balance -450 - Medications Medications: Current Medications Diphenhydramine HCl (Benadryl) 25 mg IVP Q2 PRN PRN Reason: to be given w/ dilaudid Last Admin: 11/21/16 09:12 Dose: 25 mg Hydromorphone HCl (Dilaudid) 2 mg IVP Q2 PRN PRN Reason: Pain, moderate (4-7) Last Admin: 11/21/16 09:12 Dose: 2 mg Metronidazole (Flagyl) 100 mls @ 100 mls/hr IVPB Q8H [facility] Last Admin: 11/21/16 04:02 Dose: 100 mls/hr Cefepime HCl (Maxipime Iv 1 Gm Premix) 50 mls @ 100 mls/hr IVPB Q8H [facility] Last Admin: 11/21/16 01:30 Dose: 100 mls/hr Pantoprazole Sodium (Protonix Ec Tab) 40 mg PO DAILY [facility] Last Admin: 11/20/16 09:54 Dose: 40 mg - Labs Labs: 11/21/16 07:00 11/21/16 07:00 - Constitutional Appears: Well - Head Exam Head Exam: ATRAUMATIC, NORMAL INSPECTION, NORMOCEPHALIC - Eye Exam Eye Exam: EOMI, Normal appearance, PERRL Pupil Exam: NORMAL ACCOMODATION, PERRL - ENT Exam ENT Exam: Mucous Membranes Moist, Normal Exam - Neck Exam Neck Exam: Full ROM, Normal Inspection. absent: Lymphadenopathy - Respiratory Exam Respiratory Exam: Decreased Breath Sounds - Cardiovascular Exam Cardiovascular Exam: REGULAR RHYTHM, +S1, +S2 - GI/Abdominal Exam GI & Abdominal Exam: Soft, Diminished Bowel Sounds - Rectal Exam Rectal Exam: Deferred Assessment and Plan (1) DVT (deep venous thrombosis) Status: Acute (2) Diarrhea Status: Acute (3) Intractable pain Status: Acute (4) Wound of right buttock Status: Acute (5) Abdominal pain Status: Acute (6) Abscess Status: Acute (7) Constipation Status: Acute (8) Crohn disease Status: Acute (9) Diarrhea Status: Acute (10) Encounter for wound care Status: Acute (11) Fever Status: Acute (12) Foreign body Status: Acute (13) Intractable abdominal pain Status: Acute (14) Prophylactic measure Status: Acute (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
[2016-11-21] MEDS: Pantoprazole 40 mg EC Tab PO SCH (13:18)
[2016-11-21 15:16] VITALS: RESP 20
[2016-11-22] MEDS: DiphenhydrAMINE 50 mg/ml Inj IVP PRN ×11 (01:20→23:50)
[2016-11-22] MEDS: Cefepime IV 1 gm in Dextrose 50 ML IVPB SCH ×3 (02:57→17:50)
[2016-11-22] MEDS: metroNIDAZOLE IV 500 mg/100 ml 100 ML IVPB SCH ×3 (03:40→19:25)
[2016-11-22] MEDS: Pantoprazole 40 mg EC Tab PO SCH (10:27)
--- NOTE | 2016-11-22 11:15 | CP.PCM.PN ---
Subjective - Date & Time of Evaluation Date of Evaluation: 11/22/16 Time of Evaluation: 10:45 - Subjective Subjective: dictated Objective - Vital Signs/Intake and Output Vital Signs (last 24 hours): Temp Pulse Resp BP Pulse Ox 97.7 F 85 20 103/70 98 11/22/16 07:15 11/22/16 07:15 11/22/16 07:15 11/22/16 07:15 11/22/16 07:15 Intake and Output: 11/22/16 11/22/16 06:59 18:59 Intake Total 510 Balance 510 - Medications Medications: Current Medications Diphenhydramine HCl (Benadryl) 25 mg IVP Q2 PRN PRN Reason: to be given w/ dilaudid Last Admin: 11/22/16 10:55 Dose: 25 mg Hydromorphone HCl (Dilaudid) 2 mg IVP Q2 PRN PRN Reason: Pain, moderate (4-7) Last Admin: 11/22/16 10:55 Dose: 2 mg Metronidazole (Flagyl) 100 mls @ 100 mls/hr IVPB Q8H [facility] Last Admin: 11/22/16 03:40 Dose: 100 mls/hr Cefepime HCl (Maxipime Iv 1 Gm Premix) 50 mls @ 100 mls/hr IVPB Q8H [facility] Last Admin: 11/22/16 10:27 Dose: 100 mls/hr Pantoprazole Sodium (Protonix Ec Tab) 40 mg PO DAILY [facility] Last Admin: 11/22/16 10:27 Dose: 40 mg - Labs Labs: 11/21/16 07:00 11/21/16 07:00
--- NOTE | 2016-11-22 11:39 | PN ---
DATE: 11/22/2016 SUBJECTIVE: The patient says he has been nauseous and has been vomiting after eating. I told him he is on Flagyl and it could be, but it could be the smell of the stool, as he says his colostomy has b een leaking. He does have solid stool there. Denies any other complaints at this time. He feels sl ightly better. OBJECTIVE: VITAL SIGNS: Temperature maximum 97.7, pulse 85, blood pressure 103/78, respirations are 20. GENERAL: He is awake, alert. He has a left arm PICC line. HEENT: Head is atraumatic. NECK: Supple. LUNGS: Clear. No crackles or rales present. HEART: S1, S2 is regular. ABDOMEN: He has a colostomy bag. No guarding, no rigidity present. EXTREMITIES: No edema, clubbing, or cyanosis. He has abscesses in the perineal area. LABORATORY DATA: White count today was 8.2, hemoglobin 8.8, hematocrit 29.1, platelet count is 479. His wound cultures have revealed Proteus carinae and pseudomonas carinae, and the urine culture was negative. He is covered with Maxipime and Flagyl at this time IV. I told him that if, after changin g these bags, he still continues to be nauseous, then I would think to consider Flagyl, but that sada ld be helping his abscesses at this time for anaerobic coverage. We will follow. IMPRESSION: He has Crohn disease, has many infected abscesses. Santosh Daniel MD cc: [id number] TT: 11/22/2016 11:38:07 Confirmation # [id number] Dictation # [id number]
--- NOTE | 2016-11-22 14:41 | CP.PCM.PN ---
Subjective - Date & Time of Evaluation Date of Evaluation: 11/22/16 Time of Evaluation: 10:20 - Subjective Subjective: clinically same Objective - Vital Signs/Intake and Output Vital Signs (last 24 hours): Temp Pulse Resp BP Pulse Ox 97.7 F 85 20 103/70 98 11/22/16 07:15 11/22/16 08:00 11/22/16 07:15 11/22/16 07:15 11/22/16 07:15 Intake and Output: 11/22/16 11/22/16 06:59 18:59 Intake Total 510 Balance 510 - Medications Medications: Current Medications Diphenhydramine HCl (Benadryl) 25 mg IVP Q2 PRN PRN Reason: to be given w/ dilaudid Last Admin: 11/22/16 12:55 Dose: 25 mg Hydromorphone HCl (Dilaudid) 2 mg IVP Q2 PRN PRN Reason: Pain, moderate (4-7) Last Admin: 11/22/16 12:55 Dose: 2 mg Metronidazole (Flagyl) 100 mls @ 100 mls/hr IVPB Q8H [facility] Last Admin: 11/22/16 11:20 Dose: 100 mls/hr Cefepime HCl (Maxipime Iv 1 Gm Premix) 50 mls @ 100 mls/hr IVPB Q8H [facility] Last Admin: 11/22/16 10:27 Dose: 100 mls/hr Pantoprazole Sodium (Protonix Ec Tab) 40 mg PO DAILY [facility] Last Admin: 11/22/16 10:27 Dose: 40 mg - Labs Labs: 11/21/16 07:00 11/21/16 07:00 Assessment and Plan (1) DVT (deep venous thrombosis) Status: Acute (2) Diarrhea Status: Acute (3) Intractable pain Status: Acute (4) Wound of right buttock Status: Acute (5) Abdominal pain Status: Acute (6) Abscess Status: Acute (7) Constipation Status: Acute (8) Crohn disease Status: Acute (9) Diarrhea Status: Acute (10) Encounter for wound care Status: Acute (11) Fever Status: Acute (12) Foreign body Status: Acute (13) Intractable abdominal pain Status: Acute (14) Prophylactic measure Status: Acute (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
[2016-11-23] MEDS: Cefepime IV 1 gm in Dextrose 50 ML IVPB SCH ×3 (02:02→18:07)
[2016-11-23] MEDS: DiphenhydrAMINE 50 mg/ml Inj IVP PRN ×11 (02:03→21:56)
[2016-11-23] MEDS: metroNIDAZOLE IV 500 mg/100 ml 100 ML IVPB SCH ×2 (04:14→10:56)
[2016-11-23 07:42] LABS: BASO # 0.1 K/uL (0.0-0.2); BASO % 0.8 % (0.0-2.0); EOS # 0.7 K/uL (0.0-0.7); EOS % 5.8 % (0.0-4.0); HEMATOCRIT 29.5 % (35.0-51.0); LYMPH # 3.5 K/uL (1.0-4.3); MEAN CORPUSCULAR HEMOGLOBIN 19.7 pg (27.0-31.0); MEAN CORPUSCULAR HGB CONC 30.4 g/dL (33.0-37.0); MEAN PLATELET VOLUME 8.1 fL (7.2-11.7); MONO # 0.7 K/uL (0.0-0.8); RED CELL DISTRIBUTION WIDTH 16.1 % (11.5-14.5); WHITE BLOOD COUNT 11.6 K/uL (4.8-10.8)
[2016-11-23 07:58] LABS: CHLORIDE 96 mmol/L (98-107)
[2016-11-23 07:59] LABS: SODIUM 136 mmol/L (132-148)
[2016-11-23 08:01] LABS: ALB/GLOB RATIO 0.9 (1.0-2.1); ALKALINE PHOSPHATASE 92 U/L (38-126); AST/SGOT 23 U/L (17-59); BILIRUBIN,TOTAL 0.1 mg/dL (0.2-1.3); BLOOD UREA NITROGEN 5 mg/dL (9-20); CARBON DIOXIDE 26 mmol/L (22-30); GFR AFRICAN-AMERICAN > 60; TOTAL PROTEIN 7.3 g/dL (6.3-8.3)
[2016-11-23 08:02] LABS: CALCIUM 7.9 mg/dl (8.6-10.4); GLUCOSE,RANDOM 91 mg/dL (75-110)
[2016-11-23 08:03] LABS: ALT/SGPT < 6 U/L (21-72)
[2016-11-23] MEDS: Pantoprazole 40 mg EC Tab PO SCH (10:02)
--- NOTE | 2016-11-23 16:10 | CP.PCM.PN ---
Subjective - Date & Time of Evaluation Date of Evaluation: 11/23/16 Time of Evaluation: 09:30 - Subjective Subjective: clinically same Objective - Vital Signs/Intake and Output Vital Signs (last 24 hours): Temp Pulse Resp BP Pulse Ox 97.9 F 87 20 111/69 95 11/23/16 08:01 11/23/16 08:01 11/23/16 08:01 11/23/16 08:01 11/23/16 08:01 Intake and Output: 11/23/16 11/23/16 06:59 18:59 Intake Total 200 Balance 200 - Medications Medications: Current Medications Diphenhydramine HCl (Benadryl) 25 mg IVP Q2 PRN PRN Reason: to be given w/ dilaudid Last Admin: 11/23/16 16:00 Dose: 25 mg Hydromorphone HCl (Dilaudid) 2 mg IVP Q2 PRN PRN Reason: Pain, moderate (4-7) Last Admin: 11/23/16 16:03 Dose: 2 mg Cefepime HCl (Maxipime Iv 1 Gm Premix) 50 mls @ 100 mls/hr IVPB Q8H [facility] [place] Last Admin: 11/23/16 10:10 Dose: 100 mls/hr Ondansetron HCl (Zofran Inj) 4 mg IVP Q6 PRN PRN Reason: Nausea/Vomiting Last Admin: 11/22/16 14:57 Dose: 4 mg Pantoprazole Sodium (Protonix Ec Tab) 40 mg PO DAILY [facility] Last Admin: 11/23/16 10:02 Dose: 40 mg - Labs Labs: 11/23/16 07:30 11/23/16 07:30 Assessment and Plan (1) DVT (deep venous thrombosis) Status: Acute (2) Diarrhea Status: Acute (3) Intractable pain Status: Acute (4) Wound of right buttock Status: Acute (5) Abdominal pain Status: Acute (6) Abscess Status: Acute (7) Constipation Status: Acute (8) Crohn disease Status: Acute (9) Diarrhea Status: Acute (10) Encounter for wound care Status: Acute (11) Fever Status: Acute (12) Foreign body Status: Acute (13) Intractable abdominal pain Status: Acute (14) Prophylactic measure Status: Acute (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 Wound care Organomegaly DVT prophylaxis Plan discharge next a.m. Continue home medications Follow-up within 1 week
[2016-11-24] MEDS: DiphenhydrAMINE 50 mg/ml Inj IVP PRN ×6 (00:29→14:37)
[2016-11-24] MEDS: Cefepime IV 1 gm in Dextrose 50 ML IVPB SCH ×2 (02:30→09:52)
[2016-11-24] MEDS: Pantoprazole 40 mg EC Tab PO SCH (09:52)
--- NOTE | 2016-11-24 11:35 | CP.PCM.PN ---
Addendum entered and electronically signed by Rita Ortiz DO 11/24/16 14: 05: D/C home with Colace 100mg PO BID #30, Perococet 5-325mg PO Q4H PRN #30, Oxycontin ER 20mg PO BID #30 Original Note: <Rita Ortiz - Last Filed: 11/24/16 11:32> Subjective - Date & Time of Evaluation Date of Evaluation: 11/24/16 Time of Evaluation: 07:05 - Subjective Subjective: PGY2 Medicine Note - Dr. Eric Barrett's service: Patient seen and examined at bedside this AM. Patient reports continued pain. Patient denies fever, chills, chest pain, diarrhea, dysuria. Objective - Vital Signs/Intake and Output Vital Signs (last 24 hours): Temp Pulse Resp BP Pulse Ox 98.2 F 86 20 104/74 100 11/24/16 07:00 11/24/16 07:00 11/24/16 07:00 11/24/16 07:00 11/24/16 07:00 Intake and Output: 11/24/16 11/24/16 06:59 18:59 Output Total 900 Balance -900 - Medications Medications: Current Medications Acetaminophen (Tylenol 325mg Tab) 650 mg PO Q6 PRN PRN Reason: Pain, moderate (4-7) Diphenhydramine HCl (Benadryl) 25 mg IVP Q4H PRN PRN Reason: to be given w/ dilaudid Last Admin: 11/24/16 11:05 Dose: 25 mg Hydromorphone HCl (Dilaudid) 2 mg IVP Q3H PRN PRN Reason: Pain, severe (8-10) Last Admin: 11/24/16 11:05 Dose: 2 mg Cefepime HCl (Maxipime Iv 1 Gm Premix) 50 mls @ 100 mls/hr IVPB Q8H [facility] Last Admin: 11/24/16 09:52 Dose: 100 mls/hr Ondansetron HCl (Zofran Inj) 4 mg IVP Q6 PRN PRN Reason: Nausea/Vomiting Last Admin: 11/22/16 14:57 Dose: 4 mg Pantoprazole Sodium (Protonix Ec Tab) 40 mg PO DAILY [facility] Last Admin: 11/24/16 09:52 Dose: 40 mg - Labs Labs: 11/23/16 07:30 11/23/16 07:30 - Constitutional Appears: Non-toxic, No Acute Distress - Head Exam Head Exam: NORMAL INSPECTION - Eye Exam Eye Exam: EOMI - ENT Exam ENT Exam: Mucous Membranes Moist - Respiratory Exam Respiratory Exam: Clear to Ausculation Bilateral, NORMAL BREATHING PATTERN. absent: Rales, Rhonchi, Wheezes - Cardiovascular Exam Cardiovascular Exam: REGULAR RHYTHM, +S1, +S2. absent: Gallop, Rubs, Murmur - GI/Abdominal Exam GI & Abdominal Exam: Soft, Tenderness, Normal Bowel Sounds. absent: Distended, Firm Additional comments: ostomy bag with formed stool in it - Extremities Exam Extremities Exam: absent: Pedal Edema - Neurological Exam Neurological Exam: Alert, Oriented x3 - Psychiatric Exam Psychiatric exam: Normal Affect, Normal Mood - Skin Skin Exam: Normal Color, Warm Assessment and Plan - Assessment and Plan (Free Text) Assessment: 1. Abscesses Blood culture negative x 48 hours Wound culture + for corynebacterium species Surgery consult - Dr. Taylor - help appreciated Continue wound care and packing change MWF ID consult - Dr. Daniel - help appreciated Cefepime 1gm IVPB Q8H 2. Crohn's disease Continue ostomy care 3. Intractable abdominal and skin pain Lidocaine jelly Dilaudid 2mg IVP Q2 last night Benadryl 25mg IVP Q2 wiht dilaudid Will discuss adding oxycodone ER to regimen and decreasing dilaudid with Dr. Shiloh Barrett and patient 4. Prophylaxis Protonix 40mg PO daily [facility] <Osvaldo Barrett S - Last Filed: 11/25/16 00:07> Objective - Vital Signs/Intake and Output Vital Signs (last 24 hours): Temp Pulse Resp BP Pulse Ox 98 F 85 20 103/71 98 11/24/16 15:28 11/24/16 15:28 11/24/16 15:28 11/24/16 15:28 11/24/16 15:28 Intake and Output: 11/24/16 11/25/16 18:59 06:59 Output Total 300 Balance -300 - Labs Labs: 11/24/16 11:17 11/23/16 07:30 Attending/Attestation - Attestation I have personally seen and examined this patient.: Yes I have fully participated in the care of the patient.: Yes I have reviewed all pertinent clinical information, including history, physical exam and plan: Yes Notes (Text): 11/24/16 00:07 case seen and discussed with staff and resident management as agreed
[2016-11-24 11:43] LABS: BASO # 0.1 K/uL (0.0-0.2); BASO % 1.6 % (0.0-2.0); EOS # 0.7 K/uL (0.0-0.7); EOS % 7.4 % (0.0-4.0); HEMATOCRIT 33.2 % (35.0-51.0); LYMPH # 2.7 K/uL (1.0-4.3); LYMPH % 30.2 % (20.0-40.0); MEAN CELL VOLUME 65.3 fL (80.0-94.0); MEAN CORPUSCULAR HEMOGLOBIN 19.3 pg (27.0-31.0); MEAN CORPUSCULAR HGB CONC 29.5 g/dL (33.0-37.0); MONO # 0.6 K/uL (0.0-0.8); MONO % 6.5 % (0.0-10.0)
[2016-11-24 15:31] VITALS: BP 103/71; PULSE 85; TEMP 98; O2SAT 98
== END 2016-11-24 16:50 | disposition home or self-care (01) | DRG 188 ==
LOC: C.ER 19:51 → C.5T 20:36 → OBSVTOIN 11-18 15:13 → C.5T 11-23 03:28
PROVIDERS: ADMIT Internal Medicine Nephrology; ATTEND Internal Medicine Nephrology
DX: K61.1 Rectal abscess (principal); L02.412 Cutaneous abscess of left axilla; K50.90 Crohn's disease, unspecified, without complications; L02.31 Cutaneous abscess of buttock; B96.4 Proteus (mirabilis) (morganii) as the cause of diseases classified elsewhere; B96.5 Pseudomonas (aeruginosa) (mallei) (pseudomallei) as the cause of diseases classified elsewhere; F32.9 Major depressive disorder, single episode, unspecified; K62.89 Other specified diseases of anus and rectum; Z90.49 Acquired absence of other specified parts of digestive tract; Z93.3 Colostomy status

== ENCOUNTER 2016-11-25 22:14 | Inpatient (IN) | payer MEDICAID ==
[2016-11-25 22:15] VITALS: BMI 22.2
--- NOTE | 2016-11-25 22:49 | C.PDOC ---
History Of Present Illness 21 year old male returns to the ED, after leaving AMA earlier today, with complaints of a chronic poorly healing wound to his perineum related to his Crohn's disease. Patient has had multiple AMA discharges and hospitalizations for the same complaints. Time Seen by Provider: 11/25/16 22:40 Chief Complaint (Nursing): Abdominal Pain History Per: Patient History/Exam Limitations: no limitations Onset/Duration Of Symptoms: Days Current Symptoms Are (Timing): Still Present Severity: Mild Past Medical History Reviewed: Historical Data, Nursing Documentation, Vital Signs Vital Signs: Last Vital Signs Temp 97.8 F 12/01/16 15:15 Pulse 108 H 12/01/16 15:15 Resp 20 12/01/16 15:15 BP 107/63 12/01/16 15:15 Pulse Ox 97 12/01/16 15:15 - Medical History PMH: Crohn's Disease (COLOSTOMY 2015), Depression - [facility] Procedures DRAINAGE OF BACK SUBCU/FASCIA, OPEN APPROACH (10/21/16) DRAINAGE OF BUTTOCK SKIN, EXTERNAL APPROACH, DIAGNOSTIC (09/23/16) DRAINAGE OF BUTTOCK SUBCU/FASCIA, OPEN APPROACH (10/21/16) EXCISION OF BACK SKIN, EXTERNAL APPROACH (09/23/16) EXCISION OF BACK SUBCU/FASCIA, OPEN APPROACH (10/21/16) EXCISION OF BUTTOCK SUBCU/FASCIA, OPEN APPROACH (10/21/16) EXCISION OF PERINEUM SKIN, EXTERNAL APPROACH (09/23/16) EXTRACTION OF BUTTOCK SKIN, EXTERNAL APPROACH (09/23/16) Family History: States: Unknown Family Hx - Social History Hx Alcohol Use: No Hx Substance Use: No - Immunization History Hx Tetanus Toxoid Vaccination: No Hx Influenza Vaccination: No Hx Pneumococcal Vaccination: No Review Of Systems Except As Marked, All Systems Reviewed And Found Negative. Constitutional: Negative for: Fever, Chills Gastrointestinal: Negative for: Nausea, Vomiting Genitourinary: Positive for: Other (+Poorly healing wound to perineum) Physical Exam - Physical Exam Appears: Non-toxic, No Acute Distress Skin: Normal Color, Warm, Dry Head: Atraumatic, Normacephalic Eye(s): bilateral: EOMI, Other (+Dilated pupils) Oral Mucosa: Moist Neck: Supple Chest: Symmetrical Cardiovascular: Rhythm Regular Respiratory: Normal Breath Sounds, No Accessory Muscle Use Gastrointestinal/Abdominal: Soft, No Tenderness, Other (+Colostomy bag with stool to the LLQ.) Male Genital: Other (+Large 8cm fresh open perineal wound. +[place] with no foul smelling discharge) Extremity: Normal ROM Neurological/Psych: Oriented x3, Normal Speech, Normal Cognition ED Course And Treatment - Laboratory Results Result Diagrams: 11/27/16 06:26 11/27/16 06:26 O2 Sat by Pulse Oximetry: 100 (Room air) Pulse Ox Interpretation: Normal Progress Note: Blood work and Urinalysis ordered and reviewed. - Physician Consult Information Outcome Of Conversation: [id number]: d/w Dr. Eric Barrett- ok to put back on med/surg Obs Medical Decision Making Medical Decision Making: persistent per-anal discomfort- healing wounds Demanding dilaudid- was receiving 2 mg IV Q2H on floor, left AMA earlier today "because I didn't like the nursing care on the floor" Did not fill the Percocet prescriptions given @ d/c today. Disposition Doctor Will See Patient In The: Hospital Counseled Patient/Family Regarding: Studies Performed, Diagnosis - Disposition Disposition: HOSPITALIZED Disposition Time: 23:21 Condition: GOOD - Clinical Impression Clinical Impression: Rectal pain, Wound of right buttock - Scribe Statement The provider has reviewed the documentation as recorded by the Scribe Wesley London. Provider Attestation: All medical record entries made by the Scribe were at my direction and personally dictated by me. I have reviewed the chart and agree that the record accurately reflects my personal performance of the history, physical exam, medical decision making, and the department course for this patient. I have also personally directed, reviewed, and agree with the discharge instructions and disposition.
[2016-11-25] MEDS ORDERED: Sodium Chloride 0.9% 1,000 ML IV ONE (23:15)
[2016-11-25] MEDS ORDERED: Sodium Chloride 0.9% 1,000 ML ONE (23:42)
[2016-11-25 23:47] LABS: BASO # 0.2 K/uL (0.0-0.2); BASO % 1.4 % (0.0-2.0); EOS # 0.2 K/uL (0.0-0.7); EOS % 1.4 % (0.0-4.0); HEMATOCRIT 29.3 % (35.0-51.0); LYMPH # 3.4 K/uL (1.0-4.3); MEAN CELL VOLUME 64.6 fL (80.0-94.0); MEAN CORPUSCULAR HEMOGLOBIN 19.8 pg (27.0-31.0); MEAN CORPUSCULAR HGB CONC 30.6 g/dL (33.0-37.0); MEAN PLATELET VOLUME 7.7 fL (7.2-11.7); MONO # 0.9 K/uL (0.0-0.8); MONO % 6.7 % (0.0-10.0); NRBC % 0.1 % (0.0-2.0); RED CELL DISTRIBUTION WIDTH 16.2 % (11.5-14.5); WHITE BLOOD COUNT 13.5 K/uL (4.8-10.8)
[2016-11-26] LABS: CHLORIDE 97 mmol/L (98-107); POTASSIUM 4.5 mmol/L (3.6-5.2); SODIUM 137 mmol/L (132-148)
[2016-11-26 00:02] LABS: ALB/GLOB RATIO 0.9 (1.0-2.1); ALKALINE PHOSPHATASE 93 U/L (38-126); AST/SGOT 30 U/L (17-59); BILIRUBIN,TOTAL 0.5 mg/dL (0.2-1.3); CARBON DIOXIDE 26 mmol/L (22-30); GFR AFRICAN-AMERICAN > 60; TOTAL PROTEIN 7.8 g/dL (6.3-8.3)
[2016-11-26 00:03] LABS: ALT/SGPT 8 U/L (21-72); BLOOD UREA NITROGEN 14 mg/dL (9-20); CALCIUM 8.7 mg/dl (8.6-10.4); GLUCOSE,RANDOM 104 mg/dL (75-110)
[2016-11-26] MEDS: DiphenhydrAMINE 50 mg/ml Inj IVP PRN ×5 (01:10→21:19)
[2016-11-26 08:17] LABS: RBC URINE 5 /hpf (0-3); URINE BACTERIA RARE (<OCC); URINE BILIRUBIN NEGATIVE (NEGATIVE); URINE BLOOD NEGATIVE (NEGATIVE); URINE COLOR Amber (YELLOW); URINE GLUCOSE (UA) NORMAL (Normal); URINE KETONE NEGATIVE (NEGATIVE); URINE LEUKOCYTE ESTERASE NEG Leu/uL (Negative); URINE PROTEIN 1+ mg/dL (NEGATIVE); URINE UROBILINOGEN NORMAL mg/dL (0.2-1.0)
--- NOTE | 2016-11-26 09:06 | CP.PCM.CON ---
History of Present Illness - History of Present Illness History of Present Illness: Surgery: Dr. Taylor CC: pain HPI: Patient is a 21 y/o male well known to the surgical service who presented complaining of pain and oozing from site of perineal/perirectal abscesses that worsened after being discharge from [facility] on 11/24. Patient had recently been discharged s/p I&D of nitza-rectal abscesses and long hospitalization of IV abx. Patient had history of Crohn's disease in which is currently not medically controlled. Pt reports that the worst pain is coming from perineal abscess, that bothers him with any movement. The perirectal abscesses he states began 8 months ago and are still producing purulent drainage. He also is requesting colostomy reversal because it has hurt his job prospects. PMHx: Crohn's PSH: multiple I&Ds of nitza-rectal abscess Review of Systems - Constitutional Constitutional: absent: Chills, Fever - EENT Eyes: absent: Change in Vision Ears: absent: Decreased Hearing - Cardiovascular Cardiovascular: absent: Chest Pain, Chest Pain at Rest, Dyspnea, Dyspnea on Exertion - Respiratory Respiratory: absent: Cough, Dyspnea - Gastrointestinal Gastrointestinal: absent: Abdominal Pain, Nausea, Vomiting - Genitourinary Genitourinary: absent: Dysuria - Integumentary Integumentary: Non-Healing Lesions Additional comments: Perirectal abscess, began 8 months ago. Still draining "white/green fluid" Perineal abscess worsening, hurts with every movement. Uses blow dryer to dry off area after showering because of pain. - Neurological Neurological: absent: Numbness, Tingling, Weakness - Psychiatric Psychiatric: absent: Anxiety, Depression Past Patient History - Infectious Disease Hx of Infectious Diseases: None - Past Medical History & Family History Past Medical History?: Yes - Past Social History Smoking Status: Unknown If Ever Smoked - CARDIAC Hx Cardiac Disorders: No - PULMONARY Hx Respiratory Disorders: No - NEUROLOGICAL Hx Neurological Disorder: No - HEENT Hx HEENT Problems: No - RENAL Hx Chronic Kidney Disease: No - ENDOCRINE/METABOLIC Hx Endocrine Disorders: No - HEMATOLOGICAL/ONCOLOGICAL Hx Blood Disorders: No - INTEGUMENTARY Hx Dermatological Problems: Yes Other/Comment: Perineal wound. Rectal abcess - MUSCULOSKELETAL/RHEUMATOLOGICAL Hx Musculoskeletal Disorders: No Hx Falls: No - GASTROINTESTINAL Hx Gastrointestinal Disorders: Yes Hx Crohn's Disease: Yes (COLOSTOMY 2016) - GENITOURINARY/GYNECOLOGICAL Hx Genitourinary Disorders: No - PSYCHIATRIC Hx Psychophysiologic Disorder: Yes Hx Depression: Yes Hx Substance Use: No - SURGICAL HISTORY Hx Surgeries: Yes (SEE COMMENT) Other/Comment: LOOP COLOSTOMY. Perineal wound. Left upper arm PICC Line - taken out 11/24/2016 - ANESTHESIA Hx Anesthesia: Yes Hx Anesthesia Reactions: No Hx Malignant Hyperthermia: No Has any member of the family had a problem w/ anesthesia?: No Meds Allergies/Adverse Reactions: Allergies Allergy/AdvReac Type Severity Reaction Status Date / Time morphine Allergy ITCHING Verified 11/25/16 22:28 - Medications Medications: Current Medications Diphenhydramine HCl (Benadryl) 25 mg IVP Q4 PRN PRN Reason: Allergy symptoms Last Admin: 11/26/16 05:03 Dose: 25 mg Hydromorphone HCl (Dilaudid) 2 mg IVP Q2 PRN PRN Reason: Pain, moderate (4-7) Last Admin: 11/26/16 07:02 Dose: 2 mg Pantoprazole Sodium (Protonix Ec Tab) 40 mg PO DAILY [facility] Physical Exam - Constitutional Appears: No Acute Distress - Head Exam Head Exam: ATRAUMATIC, NORMOCEPHALIC - Eye Exam Eye Exam: EOMI Pupil Exam: PERRL - ENT Exam ENT Exam: Mucous Membranes Moist - Respiratory Exam Respiratory Exam: NORMAL BREATHING PATTERN - GI/Abdominal Exam GI & Abdominal Exam: Soft. absent: Tenderness Additional comments: ostomy bag with formed stool & liquid stool - Extremities Exam Extremities exam: Positive for: normal inspection - Neurological Exam Neurological exam: Alert, Oriented x3 - Skin Additional comments: multiple wounds at different stages of healing, superior left perirectal wound w / some purulent drainage noted. Packing replaced. No evidence of new abscess formation Perineal wound - weeping purulent fluid Results - Vital Signs Recent Vital Signs: Last Vital Signs Temp 97.7 F 11/26/16 01:38 Pulse 98 H 11/26/16 03:43 Resp 20 11/26/16 01:38 BP 111/76 11/26/16 01:38 Pulse Ox 98 11/26/16 03:43 - Labs Result Diagrams: 11/25/16 23:41 11/25/16 23:41 Labs: Laboratory Results - last 24 hr 11/25/16 11/26/16 23:41 07:57 WBC 13.5 H RBC 4.53 Hgb 9.0 L Hct 29.3 L MCV 64.6 L MCH 19.8 L MCHC 30.6 L RDW 16.2 H Plt Count 624 H D MPV 7.7 Neut % (Auto) 65.5 Lymph % (Auto) 25.0 [place] % (Auto) 6.7 Eos % (Auto) 1.4 Baso % (Auto) 1.4 Neut # 8.8 H Lymph # 3.4 [place] # 0.9 H Eos # 0.2 Baso # 0.2 Sodium 137 Potassium 4.5 Chloride 97 L Carbon Dioxide 26 Anion Gap 19 BUN 14 Creatinine 0.6 L Est GFR ( Amer) > 60 Est GFR (Non-Af Amer) > 60 Random Glucose 104 Calcium 8.7 Total Bilirubin 0.5 AST 30 ALT 8 L D Alkaline Phosphatase 93 Total Protein 7.8 Albumin 3.7 Globulin 4.1 H Albumin/Globulin Ratio 0.9 L Lipase 365 H Urine Color [place] Urine Clarity Hazy Urine pH 7.0 Ur Specific [place] 1.026 Urine Protein 1+ H Urine Glucose (UA) Normal Urine Ketones Negative Urine Blood Negative Urine Nitrate Negative Urine Bilirubin Negative Urine Urobilinogen Normal Ur Leukocyte Esterase Neg Urine RBC (Auto) 5 H Ur Squamous Epith Cells 1 Amorphous Sediment Rare H Urine Bacteria Rare Urine Methadone Screen Negative Ur Barbiturates Screen Negative Ur Phencyclidine Scrn Negative Ur Amphetamines Screen Negative U Benzodiazepines Scrn Negative U Oth Cocaine Metabols Negative U Cannabinoids Screen Negative Assessment & Plan - Assessment and Plan (Free Text) Assessment: 21 y/o male w/ Crohn's disease s/p nitza-rectal abscess drainage, multiple occasions Plan: - Wound care consult for perineal abscess -keep wounds clean and dry -cont diet Surgical team will d/w Dr. Claudia Celis, PGY-1
[2016-11-26] MEDS: Pantoprazole 40 mg EC Tab PO SCH (09:13)
--- NOTE | 2016-11-26 10:38 | CP.PCM.PN ---
Subjective - Date & Time of Evaluation Date of Evaluation: 11/26/16 Time of Evaluation: 11:00 - Subjective Subjective: Medicine Progress Note- Dr Shiloh Barrett's service Patient seen and examined. Patient states that he feels well today and that his pain is better controlled on medication. He left AMA from the hospital on but returned yesterday after he started to experience abdominal pain and back pain. Patient's IV access fell out and PICC line was ordered. Patient was seen by [facility] medication reconciliation technician who states that purulent discharge is draining from patient's sacral wound. Patient denies fever, chills, nausea, vomiting, diarrhea, chest pain and SOB. Objective - Vital Signs/Intake and Output Vital Signs (last 24 hours): Temp Pulse Resp BP Pulse Ox 97.6 F 84 18 108/73 98 11/26/16 08:30 11/26/16 08:30 11/26/16 08:30 11/26/16 08:30 11/26/16 08:30 Intake and Output: 11/26/16 11/26/16 06:59 18:59 Intake Total 1100 Balance 1100 - Medications Medications: Current Medications Diphenhydramine HCl (Benadryl) 25 mg IVP Q4 PRN PRN Reason: Allergy symptoms Last Admin: 11/26/16 09:10 Dose: 25 mg Hydromorphone HCl (Dilaudid) 2 mg IVP Q2 PRN PRN Reason: Pain, moderate (4-7) Last Admin: 11/26/16 09:13 Dose: 2 mg Pantoprazole Sodium (Protonix Ec Tab) 40 mg PO DAILY [facility] Last Admin: 11/26/16 09:13 Dose: 40 mg - Labs Labs: 11/25/16 23:41 11/25/16 23:41 - Constitutional Appears: Non-toxic, No Acute Distress - Head Exam Head Exam: ATRAUMATIC, NORMOCEPHALIC - Eye Exam Eye Exam: EOMI, Normal appearance - ENT Exam ENT Exam: Mucous Membranes Moist - Neck Exam Neck Exam: Normal Inspection - Respiratory Exam Respiratory Exam: Clear to Ausculation Bilateral, NORMAL BREATHING PATTERN. absent: Rhonchi, Wheezes, Respiratory Distress - Cardiovascular Exam Cardiovascular Exam: REGULAR RHYTHM, +S1, +S2 - GI/Abdominal Exam GI & Abdominal Exam: Soft Additional comments: colostomy bag - Extremities Exam Extremities Exam: Full ROM, Normal Inspection. absent: Pedal Edema - Back Exam Additional comments: sacral abscess - Neurological Exam Neurological Exam: Alert, Awake, Oriented x3 - Psychiatric Exam Psychiatric exam: Normal Affect, Normal Mood - Skin Skin Exam: Dry, Warm Assessment and Plan - Assessment and Plan (Free Text) Assessment: 1. Abscesses WBC 13.5, afebrile Blood culture negative x 48 hours on previous visit 11/16/16 Wound culture + for corynebacterium species on 11/17/16 Surgery consult - Dr. Taylor - help appreciated Continue wound care and packing change ID consult - Dr. Daniel - help appreciated Was on Cefepime 1gm IVPB Q8H on last visit, will restart for now until wound cultures come back PICC line ordered Duragesic patch 2. Crohn's disease Continue ostomy care Patient has outpt appointment with GI on 12/08/16 3. Intractable abdominal pain Lipase 365 IVF NS @100cc/hr recheck lipase in AM Dilaudid 2mg IVP Q2 Benadryl 25mg IVP Q2 with dilaudid 4. Chronic iron deficiency anemia Hgb 9.0 (stable since previous visits) MCV 64.6 Start Feosol 325mg PO daily Monitor CBC 5. Prophylaxis Protonix 40mg PO daily SCDs All management and orders per Dr Shiloh Barrett. Discussed with attending.
[2016-11-26] MEDS: Sodium Chloride 0.9% 1,000 ML IV SCH ×2 (12:16→21:15)
[2016-11-26] MEDS: Cefepime IV 1 gm in Dextrose 50 ML IVPB SCH ×2 (12:17→21:16)
[2016-11-26] MEDS: Lidocaine 5% Patch TD SCH (14:09)
--- NOTE | 2016-11-26 16:18 | RAD ---
HISTORY: verify right PICC COMPARISON: No prior. FINDINGS: LUNGS: No active pulmonary disease. PLEURA: No significant pleural effusion identified, no pneumothorax apparent. CARDIOVASCULAR: Right PICC catheter terminates in superior vena cava. Normal heart size. No congestive change. OSSEOUS STRUCTURES: No significant abnormalities. VISUALIZED UPPER ABDOMEN: Normal. OTHER FINDINGS: None. IMPRESSION: New right PICC catheter terminates in superior vena cava.
[2016-11-26 17:26] VITALS: RESP 20
--- NOTE | 2016-11-26 17:58 | CP.PCM.HP ---
History of Present Illness - History of Present Illness History of Present Illness: 21-year-old male presents to the ED, after leaving AMA earlier today, with complaints of chronic poorly healing wound to his perineum related to his Crohn' s disease. Patient has had multiple AMA discharges and hospitalizations for the same complaints. Present on Admission - Present on Admission Any Indicators Present on Admission: No Past Patient History - Infectious Disease Hx of Infectious Diseases: None - Past Medical History & Family History Past Medical History?: Yes - Past Social History Smoking Status: Unknown If Ever Smoked - CARDIAC Hx Cardiac Disorders: No - PULMONARY Hx Respiratory Disorders: No - NEUROLOGICAL Hx Neurological Disorder: No - HEENT Hx HEENT Problems: No - RENAL Hx Chronic Kidney Disease: No - ENDOCRINE/METABOLIC Hx Endocrine Disorders: No - HEMATOLOGICAL/ONCOLOGICAL Hx Blood Disorders: No - INTEGUMENTARY Hx Dermatological Problems: Yes Other/Comment: Perineal wound. Rectal abcess - MUSCULOSKELETAL/RHEUMATOLOGICAL Hx Musculoskeletal Disorders: No Hx Falls: No - GASTROINTESTINAL Hx Gastrointestinal Disorders: Yes Hx Crohn's Disease: Yes (COLOSTOMY 2015) - GENITOURINARY/GYNECOLOGICAL Hx Genitourinary Disorders: No - PSYCHIATRIC Hx Psychophysiologic Disorder: Yes Hx Depression: Yes Hx Substance Use: No - SURGICAL HISTORY Hx Surgeries: Yes (SEE COMMENT) Other/Comment: LOOP COLOSTOMY. Perineal wound. Left upper arm PICC Line - taken out 11/24/2016 - ANESTHESIA Hx Anesthesia: Yes Hx Anesthesia Reactions: No Hx Malignant Hyperthermia: No Has any member of the family had a problem w/ anesthesia?: No Meds Home Medications: Home Medication List Medication Instructions Recorded Confirmed Type oxyCODONE/Acetaminophen [Percocet 1 tab PO Q6H PRN #20 tab 12/03/16 Rx 5/325 mg Tab] Allergies/Adverse Reactions: Allergies Allergy/AdvReac Type Severity Reaction Status Date / Time morphine Allergy Severe ITCHING Verified 03/22/17 18:32 Physical Exam - Constitutional Appears: Well - Head Exam Head Exam: ATRAUMATIC, NORMAL INSPECTION, NORMOCEPHALIC - Eye Exam Eye Exam: EOMI, Normal appearance, PERRL Pupil Exam: NORMAL ACCOMODATION, PERRL - ENT Exam ENT Exam: Mucous Membranes Moist, Normal Exam - Neck Exam Neck exam: Positive for: Normal Inspection - Respiratory Exam Respiratory Exam: Decreased Breath Sounds - Cardiovascular Exam Cardiovascular Exam: REGULAR RHYTHM, +S1, +S2 - GI/Abdominal Exam GI & Abdominal Exam: Diminished Bowel Sounds, Soft - Rectal Exam Rectal Exam: Deferred Results - Vital Signs Recent Vital Signs: Last Vital Signs Temp 98.2 F 11/26/16 15:25 Pulse 101 H 11/26/16 15:25 Resp 20 11/26/16 15:25 BP 108/70 11/26/16 15:25 Pulse Ox 100 11/26/16 15:25 - Labs Result Diagrams: 12/04/16 07:10 12/04/16 07:10 Labs: Laboratory Results - last 24 hr 11/25/16 11/26/16 23:41 07:57 WBC 13.5 H RBC 4.53 Hgb 9.0 L Hct 29.3 L MCV 64.6 L MCH 19.8 L MCHC 30.6 L RDW 16.2 H Plt Count 624 H D MPV 7.7 Neut % (Auto) 65.5 Lymph % (Auto) 25.0 [place] % (Auto) 6.7 Eos % (Auto) 1.4 Baso % (Auto) 1.4 Neut # 8.8 H Lymph # 3.4 [place] # 0.9 H Eos # 0.2 Baso # 0.2 Sodium 137 Potassium 4.5 Chloride 97 L Carbon Dioxide 26 Anion Gap 19 BUN 14 Creatinine 0.6 L Est GFR ( Amer) > 60 Est GFR (Non-Af Amer) > 60 Random Glucose 104 Calcium 8.7 Total Bilirubin 0.5 AST 30 ALT 8 L D Alkaline Phosphatase 93 Total Protein 7.8 Albumin 3.7 Globulin 4.1 H Albumin/Globulin Ratio 0.9 L Lipase 365 H Urine Color [place] Urine Clarity Hazy Urine pH 7.0 Ur Specific [place] 1.026 Urine Protein 1+ H Urine Glucose (UA) Normal Urine Ketones Negative Urine Blood Negative Urine Nitrate Negative Urine Bilirubin Negative Urine Urobilinogen Normal Ur Leukocyte Esterase Neg Urine RBC (Auto) 5 H Ur Squamous Epith Cells 1 Amorphous Sediment Rare H Urine Bacteria Rare Urine Opiates Screen Positive Urine Methadone Screen Negative Ur Barbiturates Screen Negative Ur Phencyclidine Scrn Negative Ur Amphetamines Screen Negative U Benzodiazepines Scrn Negative U Oth Cocaine Metabols Negative U Cannabinoids Screen Negative Assessment & Plan (1) DVT (deep venous thrombosis) Status: Acute (2) Diarrhea Status: Acute (3) Intractable pain Status: Acute (4) Wound of right buttock Status: Acute (5) Abdominal pain Status: Acute (6) Abscess Status: Acute (7) Constipation Status: Acute (8) Crohn disease Status: Acute (9) Diarrhea Status: Acute (10) Encounter for wound care Status: Acute (11) Fever Status: Acute (12) Foreign body Status: Acute (13) Intractable abdominal pain Status: Acute (14) Prophylactic measure Status: Acute (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 - Assessment and Plan (Free Text) Plan: Labs and meds reviewed Wound care GI consult Surgery consult Dilaudid IV fluids Protonix
--- NOTE | 2016-11-26 21:28 | CP.PCM.PN ---
Subjective - Date & Time of Evaluation Date of Evaluation: 11/26/16 Time of Evaluation: 03:00 - Subjective Subjective: dictated Objective - Vital Signs/Intake and Output Vital Signs (last 24 hours): Temp Pulse Resp BP Pulse Ox 98.2 F 101 H 20 108/70 100 11/26/16 15:25 11/26/16 18:00 11/26/16 15:25 11/26/16 15:25 11/26/16 15:25 Intake and Output: 11/26/16 11/27/16 18:59 06:59 Intake Total 800 Balance 800 - Medications Medications: Current Medications Diphenhydramine HCl (Benadryl) 25 mg IVP Q4 PRN PRN Reason: Allergy symptoms Last Admin: 11/26/16 21:19 Dose: 25 mg Ferrous Sulfate (Feosol) 325 mg PO DAILY [facility] Last Admin: 11/26/16 12:20 Dose: 325 mg Hydromorphone HCl (Dilaudid) 2 mg IVP Q2 PRN PRN Reason: Pain, moderate (4-7) Last Admin: 11/26/16 21:20 Dose: 2 mg Cefepime HCl (Maxipime Iv 1 Gm Premix) 50 mls @ 100 mls/hr IVPB Q8H [facility] Last Admin: 11/26/16 21:16 Dose: 100 mls/hr Sodium Chloride (Sodium Chloride 0.9%) 1,000 mls @ 100 mls/hr IV .Q10H [facility] Last Admin: 11/26/16 21:15 Dose: 100 mls/hr Vancomycin HCl 1,000 mg/ (Sodium Chloride) 250 mls @ 166.6 mls/hr IVPB Q12H [facility] Lidocaine (Lidoderm) 1 ea TD DAILY [facility] Last Admin: 11/26/16 14:09 Dose: Not Given Ondansetron HCl (Zofran Tab) 4 mg PO Q6H PRN PRN Reason: Nausea/Vomiting Last Admin: 11/26/16 14:08 Dose: 4 mg Pantoprazole Sodium (Protonix Ec Tab) 40 mg PO DAILY [facility] Last Admin: 11/26/16 09:13 Dose: 40 mg - Labs Labs: 11/25/16 23:41 11/25/16 23:41
--- NOTE | 2016-11-26 21:35 | CP.PCM.CON ---
History of Present Illness - History of Present Illness History of Present Illness: dictated Past Patient History - Infectious Disease Hx of Infectious Diseases: None - Past Medical History & Family History Past Medical History?: Yes - Past Social History Smoking Status: Unknown If Ever Smoked - CARDIAC Hx Cardiac Disorders: No - PULMONARY Hx Respiratory Disorders: No - NEUROLOGICAL Hx Neurological Disorder: No - HEENT Hx HEENT Problems: No - RENAL Hx Chronic Kidney Disease: No - ENDOCRINE/METABOLIC Hx Endocrine Disorders: No - HEMATOLOGICAL/ONCOLOGICAL Hx Blood Disorders: No - INTEGUMENTARY Hx Dermatological Problems: Yes Other/Comment: Perineal wound. Rectal abcess - MUSCULOSKELETAL/RHEUMATOLOGICAL Hx Musculoskeletal Disorders: No Hx Falls: No - GASTROINTESTINAL Hx Gastrointestinal Disorders: Yes Hx Crohn's Disease: Yes (COLOSTOMY 2015) - GENITOURINARY/GYNECOLOGICAL Hx Genitourinary Disorders: No - PSYCHIATRIC Hx Psychophysiologic Disorder: Yes Hx Depression: Yes Hx Substance Use: No - SURGICAL HISTORY Hx Surgeries: Yes (SEE COMMENT) Other/Comment: LOOP COLOSTOMY. Perineal wound. Left upper arm PICC Line - taken out 11/24/2016 - ANESTHESIA Hx Anesthesia: Yes Hx Anesthesia Reactions: No Hx Malignant Hyperthermia: No Has any member of the family had a problem w/ anesthesia?: No Meds Allergies/Adverse Reactions: Allergies Allergy/AdvReac Type Severity Reaction Status Date / Time morphine Allergy ITCHING Verified 11/25/16 22:28 - Medications Medications: Current Medications Diphenhydramine HCl (Benadryl) 25 mg IVP Q4 PRN PRN Reason: Allergy symptoms Last Admin: 11/26/16 21:19 Dose: 25 mg Ferrous Sulfate (Feosol) 325 mg PO DAILY [facility] Last Admin: 11/26/16 12:20 Dose: 325 mg Hydromorphone HCl (Dilaudid) 2 mg IVP Q2 PRN PRN Reason: Pain, moderate (4-7) Last Admin: 11/26/16 21:20 Dose: 2 mg Cefepime HCl (Maxipime Iv 1 Gm Premix) 50 mls @ 100 mls/hr IVPB Q8H [facility] Last Admin: 11/26/16 21:16 Dose: 100 mls/hr Sodium Chloride (Sodium Chloride 0.9%) 1,000 mls @ 100 mls/hr IV .Q10H [facility] Last Admin: 11/26/16 21:15 Dose: 100 mls/hr Vancomycin/Sodium Chloride (Vancocin) 200 mls @ 166.6 mls/hr IVPB Q12H [facility] Lidocaine (Lidoderm) 1 ea TD DAILY [facility] Last Admin: 11/26/16 14:09 Dose: Not Given Ondansetron HCl (Zofran Tab) 4 mg PO Q6H PRN PRN Reason: Nausea/Vomiting Last Admin: 11/26/16 14:08 Dose: 4 mg Pantoprazole Sodium (Protonix Ec Tab) 40 mg PO DAILY [facility] Last Admin: 11/26/16 09:13 Dose: 40 mg Results - Vital Signs Recent Vital Signs: Last Vital Signs Temp 98.2 F 11/26/16 15:25 Pulse 101 H 11/26/16 18:00 Resp 20 11/26/16 15:25 BP 108/70 11/26/16 15:25 Pulse Ox 100 11/26/16 15:25 - Labs Result Diagrams: 11/25/16 23:41 11/25/16 23:41 Labs: Laboratory Results - last 24 hr 11/25/16 11/26/16 23:41 07:57 WBC 13.5 H RBC 4.53 Hgb 9.0 L Hct 29.3 L MCV 64.6 L MCH 19.8 L MCHC 30.6 L RDW 16.2 H Plt Count 624 H D MPV 7.7 Neut % (Auto) 65.5 Lymph % (Auto) 25.0 [place] % (Auto) 6.7 Eos % (Auto) 1.4 Baso % (Auto) 1.4 Neut # 8.8 H Lymph # 3.4 [place] # 0.9 H Eos # 0.2 Baso # 0.2 Sodium 137 Potassium 4.5 Chloride 97 L Carbon Dioxide 26 Anion Gap 19 BUN 14 Creatinine 0.6 L Est GFR ( Amer) > 60 Est GFR (Non-Af Amer) > 60 Random Glucose 104 Calcium 8.7 Total Bilirubin 0.5 AST 30 ALT 8 L D Alkaline Phosphatase 93 Total Protein 7.8 Albumin 3.7 Globulin 4.1 H Albumin/Globulin Ratio 0.9 L Lipase 365 H Urine Color [place] Urine Clarity Hazy Urine pH 7.0 Ur Specific [place] 1.026 Urine Protein 1+ H Urine Glucose (UA) Normal Urine Ketones Negative Urine Blood Negative Urine Nitrate Negative Urine Bilirubin Negative Urine Urobilinogen Normal Ur Leukocyte Esterase Neg Urine RBC (Auto) 5 H Ur Squamous Epith Cells 1 Amorphous Sediment Rare H Urine Bacteria Rare Urine Opiates Screen Positive Urine Methadone Screen Negative Ur Barbiturates Screen Negative Ur Phencyclidine Scrn Negative Ur Amphetamines Screen Negative U Benzodiazepines Scrn Negative U Oth Cocaine Metabols Negative U Cannabinoids Screen Negative
--- NOTE | 2016-11-27 04:25 | CON ---
DATE: 11/26/2016 HISTORY OF PRESENT ILLNESS: This patient is a 21-year-old male. He has history of Crohn disease and has had multiple abscesses in the perineum which are probably related to his Crohn disease and they were poorly healing. He was given IV antibiotics. He has had multiple AMAs and continues to have pa in in the perineum and pain medications. He also has a colostomy. He complains of nausea and in chr onic pain. He also has history of Crohn disease and depression. Comes back. He just left yesterday , and now he is back again. He is complaining of pain. He also had evaluation done by a surgeon who saw, at different stages, multiple abscesses in the perineum, some of them are in the healing phase, and he still complains of severe pain in the back, as well as in the perineum and came in. Denied a ny fever or chills. Denied any nausea and vomiting. Does have poor healing wounds in the perineum. He is not on any Crohn disease medication, which is also probably a cause that these things may be r eoccurring. He denied any other review of systems. SOCIAL HISTORY: Negative for smoking or drinking, and he had this surgery and colostomy. He denies any family history of Crohn disease. PHYSICAL EXAMINATION: VITAL SIGNS: T-max is 98.2, pulse is 101, blood pressure 108/70, respirations are 20. HEENT: Head is atraumatic, normocephalic. Pupils are reacting to light. Throat: No thrush seen. NECK: Supple. YARELIS is flat. LUNGS: Clear. HEART: S1, S2 is regular. His PICC line was removed on last admission, but he has no IV access at t his time. ABDOMEN: Soft, nontender, no guarding, no rigidity present. Has a colostomy bag which is functionin g. I looked up his back and I did not find any problems, but in the perineum, he does have multiple absc esses in different stages of healing. EXTREMITIES: No edema, clubbing, or cyanosis. LABORATORY DATA: White count is 13.5, hemoglobin 9, hematocrit 29.3, platelet count 624. BUN is 14, creatinine 0.6. UA shows 1+ protein and 5 RBCs. He has been on pain medications. Comes in with cellulitis and abscesses in the perineum, Crohn disea se, depression. Last time he was on cefepime and Flagyl, but he started to complain of nausea, hence , we had to discontinue the Flagyl. So, at this time, I am going to add vancomycin and continue with the Zosyn. We will follow. Santosh Daniel MD cc: [id number] TT: 11/27/2016 04:24:49 Confirmation # [id number] Dictation # [id number] tn
[2016-11-27] MEDS: Cefepime IV 1 gm in Dextrose 50 ML IVPB SCH ×3 (05:35→20:36)
[2016-11-27 06:47] LABS: CHLORIDE 102 mmol/L (98-107); SODIUM 139 mmol/L (132-148)
[2016-11-27 06:49] LABS: ALB/GLOB RATIO 0.9 (1.0-2.1); AST/SGOT 15 U/L (17-59); BILIRUBIN,TOTAL 0.3 mg/dL (0.2-1.3); CARBON DIOXIDE 24 mmol/L (22-30); GFR AFRICAN-AMERICAN > 60
[2016-11-27 06:50] LABS: ALKALINE PHOSPHATASE 77 U/L (38-126); ALT/SGPT 15 U/L (21-72); BLOOD UREA NITROGEN 11 mg/dL (9-20); CALCIUM 7.9 mg/dl (8.6-10.4); GLUCOSE,RANDOM 95 mg/dL (75-110)
[2016-11-27 06:57] LABS: BASO # 0.1 K/uL (0.0-0.2); EOS # 0.4 K/uL (0.0-0.7); EOS % 3.7 % (0.0-4.0); HEMATOCRIT 26.8 % (35.0-51.0); LYMPH % 37.9 % (20.0-40.0); MEAN CELL VOLUME 64.5 fL (80.0-94.0); MEAN CORPUSCULAR HEMOGLOBIN 19.5 pg (27.0-31.0); MEAN CORPUSCULAR HGB CONC 30.3 g/dL (33.0-37.0); MEAN PLATELET VOLUME 7.9 fL (7.2-11.7); MONO # 0.7 K/uL (0.0-0.8); MONO % 6.8 % (0.0-10.0); RED CELL DISTRIBUTION WIDTH 15.6 % (11.5-14.5); WHITE BLOOD COUNT 10.6 K/uL (4.8-10.8)
[2016-11-27] MEDS: DiphenhydrAMINE 50 mg/ml Inj IVP PRN ×3 (08:37→20:40)
[2016-11-27] MEDS: Lidocaine 5% Patch TD SCH (09:08)
[2016-11-27] MEDS: Pantoprazole 40 mg EC Tab PO SCH (09:09)
[2016-11-27] MEDS: Sodium Chloride 0.9% 1,000 ML IV SCH ×2 (09:10→17:50)
[2016-11-27] MEDS: Vancomycin 1 gm/NS 200 ml 200 ML IVPB SCH ×3 (09:19→22:24)
--- NOTE | 2016-11-27 16:57 | CP.PCM.PN ---
Subjective - Date & Time of Evaluation Date of Evaluation: 11/27/16 Time of Evaluation: 04:20 - Subjective Subjective: dictated Objective - Vital Signs/Intake and Output Vital Signs (last 24 hours): Temp Pulse Resp BP Pulse Ox 97.5 F L 94 H 20 103/69 99 11/27/16 15:10 11/27/16 16:16 11/27/16 15:10 11/27/16 15:10 11/27/16 15:10 Intake and Output: 11/27/16 11/27/16 06:59 18:59 Intake Total 800 937 Balance 800 937 - Medications Medications: Current Medications Diphenhydramine HCl (Benadryl) 25 mg IVP Q4 PRN PRN Reason: Allergy symptoms Last Admin: 11/27/16 13:03 Dose: 25 mg Ferrous Sulfate (Feosol) 325 mg PO DAILY [facility] Last Admin: 11/27/16 09:09 Dose: 325 mg Hydromorphone HCl (Dilaudid) 2 mg IVP Q2 PRN PRN Reason: Pain, moderate (4-7) Last Admin: 11/27/16 15:04 Dose: 2 mg Cefepime HCl (Maxipime Iv 1 Gm Premix) 50 mls @ 100 mls/hr IVPB Q8H [facility] Last Admin: 11/27/16 13:13 Dose: 100 mls/hr Sodium Chloride (Sodium Chloride 0.9%) 1,000 mls @ 100 mls/hr IV .Q10H [facility] Last Admin: 11/27/16 09:10 Dose: 100 mls/hr Vancomycin/Sodium Chloride (Vancocin) 200 mls @ 166.6 mls/hr IVPB Q12H [facility] Last Admin: 11/27/16 09:19 Dose: 166.6 mls/hr Lidocaine (Lidoderm) 1 ea TD DAILY [facility] Last Admin: 11/27/16 09:08 Dose: Not Given Ondansetron HCl (Zofran Tab) 4 mg PO Q6H PRN PRN Reason: Nausea/Vomiting Last Admin: 11/26/16 14:08 Dose: 4 mg Pantoprazole Sodium (Protonix Ec Tab) 40 mg PO DAILY [facility] Last Admin: 11/27/16 09:09 Dose: 40 mg - Labs Labs: 11/27/16 06:26 11/27/16 06:26
--- NOTE | 2016-11-27 17:44 | CP.PCM.PN ---
Subjective - Date & Time of Evaluation Date of Evaluation: 11/27/16 Time of Evaluation: 14:40 - Subjective Subjective: pt clinically same s/p ID Dr Daniel ongoing iv rx Objective - Vital Signs/Intake and Output Vital Signs (last 24 hours): Temp Pulse Resp BP Pulse Ox 97.5 F L 94 H 20 103/69 99 11/27/16 15:10 11/27/16 16:16 11/27/16 15:10 11/27/16 15:10 11/27/16 15:10 Intake and Output: 11/27/16 11/27/16 06:59 18:59 Intake Total 800 937 Balance 800 937 - Medications Medications: Current Medications Diphenhydramine HCl (Benadryl) 25 mg IVP Q4 PRN PRN Reason: Allergy symptoms Last Admin: 11/27/16 13:03 Dose: 25 mg Ferrous Sulfate (Feosol) 325 mg PO DAILY [facility] Last Admin: 11/27/16 09:09 Dose: 325 mg Hydromorphone HCl (Dilaudid) 2 mg IVP Q2 PRN PRN Reason: Pain, moderate (4-7) Last Admin: 11/27/16 15:04 Dose: 2 mg Cefepime HCl (Maxipime Iv 1 Gm Premix) 50 mls @ 100 mls/hr IVPB Q8H [facility] Last Admin: 11/27/16 13:13 Dose: 100 mls/hr Sodium Chloride (Sodium Chloride 0.9%) 1,000 mls @ 100 mls/hr IV .Q10H [facility] Last Admin: 11/27/16 09:10 Dose: 100 mls/hr Vancomycin/Sodium Chloride (Vancocin) 200 mls @ 166.6 mls/hr IVPB Q12H [facility] Last Admin: 11/27/16 09:19 Dose: 166.6 mls/hr Lidocaine (Lidoderm) 1 ea TD DAILY [facility] Last Admin: 11/27/16 09:08 Dose: Not Given Ondansetron HCl (Zofran Tab) 4 mg PO Q6H PRN PRN Reason: Nausea/Vomiting Last Admin: 11/26/16 14:08 Dose: 4 mg Pantoprazole Sodium (Protonix Ec Tab) 40 mg PO DAILY [facility] Last Admin: 11/27/16 09:09 Dose: 40 mg - Labs Labs: 11/27/16 06:26 04/06/17 06:26 - Constitutional Appears: No Acute Distress - Head Exam Head Exam: ATRAUMATIC, NORMAL INSPECTION, NORMOCEPHALIC - Eye Exam Eye Exam: EOMI, Normal appearance, PERRL Pupil Exam: NORMAL ACCOMODATION, PERRL - ENT Exam ENT Exam: Mucous Membranes Moist - Neck Exam Neck Exam: Full ROM - Respiratory Exam Respiratory Exam: Decreased Breath Sounds - Cardiovascular Exam Cardiovascular Exam: REGULAR RHYTHM, +S1, +S2 - GI/Abdominal Exam GI & Abdominal Exam: Soft, Diminished Bowel Sounds - Rectal Exam Rectal Exam: Deferred - Neurological Exam Neurological Exam: Alert, Awake, Oriented x3 Assessment and Plan (1) Abscess Status: Acute (2) Crohn disease Status: Acute (3) Diarrhea Status: Acute (4) Intractable pain Status: Acute (5) Wound of right buttock Status: Acute (6) Abdominal pain Status: Acute (7) Constipation Status: Acute (8) Encounter for wound care Status: Acute (9) Fever Status: Acute (10) Foreign body Status: Acute (11) Intractable abdominal pain Status: Acute (12) Prophylactic measure Status: Acute (13) Rectal fistula Status: Acute (14) Rectal pain Status: Acute - Assessment and Plan (Free Text) Plan: f/u with dr michael simmons abx dilaudid feosol mx as ordered f/u labs monitor for fever
[2016-11-28] MEDS: DiphenhydrAMINE 50 mg/ml Inj IVP PRN ×4 (01:10→17:31)
[2016-11-28] MEDS: Sodium Chloride 0.9% 1,000 ML IV SCH ×3 (03:45→23:45)
[2016-11-28] MEDS: Cefepime IV 1 gm in Dextrose 50 ML IVPB SCH ×2 (06:00→14:21)
--- NOTE | 2016-11-28 07:48 | PN ---
DATE: 11/27/2016 SUBJECTIVE: The patient remains afebrile. He has no other complaints; however, he says how come he keeps on having these abscesses and that is a valid question, unless he has fistulas that keep draini ng because of his Crohn's, as he is on no medications for that. Right now he is on vancomycin and Ma xipime. PHYSICAL EXAMINATION: VITAL SIGNS: Blood pressure is 103/69, respirations are 20, heart rate is 94, respirations are 20, b lood pressure 103/69, temperature 97.5. HEENT: Head is atraumatic. He is alert, oriented. NECK: Supple. LUNGS: Clear. No crackles or rales present. HEART: S1, S2 regular. ABDOMEN: Soft. He has a colostomy bag and has perineal pain due to abscesses. EXTREMITIES: Have no edema, clubbing or cyanosis. He has a new PICC line in the right arm. His wound again has GPCs and gram-negative rods. Would like to know from GI if they can start the tr eatment for the Crohn disease. Maybe that will help him, as he is having these abscesses versus fist tyler that needs to be checked up with Dr. Taylor, but for now, I will continue IV antibiotics. Santosh Daniel MD cc: [id number] TT: 11/27/2016 17:37:55 Confirmation # [id number] Dictation # [id number] andrew
[2016-11-28] MEDS: Lidocaine 5% Patch TD SCH (09:29)
[2016-11-28] MEDS: Pantoprazole 40 mg EC Tab PO SCH (09:31)
[2016-11-28] MEDS: Vancomycin 1 gm/NS 200 ml 200 ML IVPB SCH ×2 (09:38→21:23)
--- NOTE | 2016-11-28 10:29 | CP.PCM.PN ---
Subjective - Date & Time of Evaluation Date of Evaluation: 11/28/16 Time of Evaluation: 09:20 - Subjective Subjective: clinically same Objective - Vital Signs/Intake and Output Vital Signs (last 24 hours): Temp Pulse Resp BP Pulse Ox 98.1 F 99 H 20 107/71 98 11/28/16 08:12 11/28/16 08:12 11/28/16 08:12 11/28/16 08:12 11/28/16 08:12 Intake and Output: 11/28/16 11/28/16 06:59 18:59 Intake Total 2210 Balance 2210 - Medications Medications: Current Medications Diphenhydramine HCl (Benadryl) 25 mg IVP Q4 PRN PRN Reason: Allergy symptoms Last Admin: 11/28/16 06:30 Dose: 25 mg Ferrous Sulfate (Feosol) 325 mg PO DAILY [facility] Last Admin: 11/28/16 09:31 Dose: 325 mg Hydromorphone HCl (Dilaudid) 2 mg IVP Q2 PRN PRN Reason: Pain, moderate (4-7) Last Admin: 11/28/16 09:31 Dose: 2 mg Cefepime HCl (Maxipime Iv 1 Gm Premix) 50 mls @ 100 mls/hr IVPB Q8H [facility] Last Admin: 11/28/16 06:00 Dose: 100 mls/hr Sodium Chloride (Sodium Chloride 0.9%) 1,000 mls @ 100 mls/hr IV .Q10H [facility] Last Admin: 11/28/16 08:15 Dose: 100 mls/hr Vancomycin/Sodium Chloride (Vancocin) 200 mls @ 166.6 mls/hr IVPB Q12H [facility] Last Admin: 11/28/16 09:38 Dose: 166.6 mls/hr Lidocaine (Lidoderm) 1 ea TD DAILY [facility] Last Admin: 11/28/16 09:29 Dose: Not Given Ondansetron HCl (Zofran Tab) 4 mg PO Q6H PRN PRN Reason: Nausea/Vomiting Last Admin: 11/26/16 14:08 Dose: 4 mg Pantoprazole Sodium (Protonix Ec Tab) 40 mg PO DAILY [facility] Last Admin: 11/28/16 09:31 Dose: 40 mg - Labs Labs: 11/27/16 06:26 11/27/16 06:26 - Constitutional Appears: Well - Head Exam Head Exam: ATRAUMATIC, NORMAL INSPECTION, NORMOCEPHALIC - Eye Exam Eye Exam: EOMI, Normal appearance, PERRL Pupil Exam: NORMAL ACCOMODATION, PERRL - ENT Exam ENT Exam: Mucous Membranes Moist, Normal Exam - Neck Exam Neck Exam: Full ROM, Normal Inspection. absent: Lymphadenopathy - Respiratory Exam Respiratory Exam: Decreased Breath Sounds - Cardiovascular Exam Cardiovascular Exam: REGULAR RHYTHM, +S1, +S2 - GI/Abdominal Exam GI & Abdominal Exam: Soft, Diminished Bowel Sounds - Rectal Exam Rectal Exam: Deferred - Neurological Exam Neurological Exam: Alert, Awake, Oriented x3 Assessment and Plan (1) Abscess Status: Acute (2) Crohn disease Status: Acute (3) Diarrhea Status: Acute (4) Intractable pain Status: Acute (5) Wound of right buttock Status: Acute (6) Abdominal pain Status: Acute (7) Constipation Status: Acute (8) Encounter for wound care Status: Acute (9) Fever Status: Acute (10) Foreign body Status: Acute (11) Intractable abdominal pain Status: Acute (12) Prophylactic measure Status: Acute (13) Rectal fistula Status: Acute (14) Rectal pain Status: Acute - Assessment and Plan (Free Text) Plan: clinically same spoke to sister as ordered spoke ot dr. torres with dr.brhanbhatt arevalo med iv antibioticas per d.r rastog surg followup ptsister adv to make appointment with gi dr in [facility]
--- NOTE | 2016-11-28 20:37 | PN ---
DATE: 11/28/2016 The patient is concerned about himself. He was complaining of headache when I saw him. His temperat ure was 98.1, pulse 99, blood pressure is 107/71, respirations are 20. He had so many questions abou t having so many abscesses and having treatment done with IV antibiotics for so long and not getting a cure. I would think he would need to be seen if these fistulous tracts are abscesses. At this guanaco e, I am continuing antibiotics. PHYSICAL EXAMINATION VITALS: Temperature 98.25, pulse 112, blood pressure 120/73, respirations are 20. HEENT: Head is atraumatic, normocephalic. NECK: Supple. LUNGS: Clear. HEART: S1, S2 regular. ABDOMEN: Soft, nontender. Colostomy is present. IMPRESSION AND PLAN: He does have chronic perineal pain. This time the organisms that grew was E. c binta, which is ESBL positive, as well as vancomycin which is methicillin-resistant Staph aureus. So, he has resistant organisms and he has had multiple antibiotics at this time. I will change it to henry reyes. We will continue the vancomycin and we will see what the surgeon has to say and he also needs a GI evaluation to see how can prove whether these are fistulas or abscesses. He has had a long dur ation of antibiotics. Santosh Daniel MD cc: [id number] TT: 11/28/2016 20:37:24 Confirmation # [id number] Dictation # [id number] ln
[2016-11-28] MEDS: Meropenem 1 GM in Sodium Chloride 0.9% 100 ML IVPB SCH (23:00)
[2016-11-29] MEDS: Sodium Chloride 0.9% 1,000 ML IV SCH ×4 (02:25→23:45)
[2016-11-29] MEDS: DiphenhydrAMINE 50 mg/ml Inj IVP PRN ×5 (02:25→22:30)
[2016-11-29] MEDS: Meropenem 1 GM in Sodium Chloride 0.9% 100 ML IVPB SCH ×3 (06:00→21:18)
[2016-11-29] MEDS: Vancomycin 1 gm/NS 200 ml 200 ML IVPB SCH ×2 (09:07→20:19)
[2016-11-29] MEDS: Pantoprazole 40 mg EC Tab PO SCH (09:09)
[2016-11-29] MEDS: Lidocaine 5% Patch TD SCH (09:15)
--- NOTE | 2016-11-29 14:36 | CP.PCM.PN ---
Subjective - Date & Time of Evaluation Date of Evaluation: 11/29/16 Time of Evaluation: 09:20 - Subjective Subjective: clinically same receiving iv abx dr rodriguez following Objective - Vital Signs/Intake and Output Vital Signs (last 24 hours): Temp Pulse Resp BP Pulse Ox 97.8 F 98 H 20 110/76 100 11/29/16 08:00 11/29/16 08:00 11/29/16 08:00 11/29/16 08:00 11/29/16 08:00 Intake and Output: 11/29/16 11/29/16 06:59 18:59 Intake Total 2410 Balance 2410 - Medications Medications: Current Medications Diphenhydramine HCl (Benadryl) 25 mg IVP Q4 PRN PRN Reason: Allergy symptoms Last Admin: 11/29/16 14:34 Dose: 25 mg Fentanyl (Duragesic) 1 patch TD Q72H [facility] Last Admin: 11/28/16 19:45 Dose: 1 patch Ferrous Sulfate (Feosol) 325 mg PO DAILY [facility] Last Admin: 11/29/16 09:09 Dose: 325 mg Hydromorphone HCl (Dilaudid) 2 mg IVP Q2 PRN PRN Reason: Pain, moderate (4-7) Last Admin: 11/29/16 10:32 Dose: 2 mg Vancomycin/Sodium Chloride (Vancocin) 200 mls @ 166.6 mls/hr IVPB Q12H [facility] Last Admin: 11/29/16 09:07 Dose: 166.6 mls/hr Meropenem 1 gm/ Sodium (Chloride) 100 mls @ 100 mls/hr IVPB Q8 [facility] Last Admin: 11/29/16 13:54 Dose: 100 mls/hr Lidocaine (Lidoderm) 1 ea TD DAILY [facility] Last Admin: 11/29/16 09:15 Dose: Not Given Ondansetron HCl (Zofran Tab) 4 mg PO Q6H PRN PRN Reason: Nausea/Vomiting Last Admin: 11/26/16 14:08 Dose: 4 mg Pantoprazole Sodium (Protonix Ec Tab) 40 mg PO DAILY [facility] Last Admin: 11/29/16 09:09 Dose: 40 mg - Labs Labs: 11/27/16 06:26 11/27/16 06:26 - Constitutional Appears: Well - Head Exam Head Exam: ATRAUMATIC, NORMAL INSPECTION, NORMOCEPHALIC - Eye Exam Eye Exam: EOMI, Normal appearance, PERRL Pupil Exam: NORMAL ACCOMODATION, PERRL - ENT Exam ENT Exam: Mucous Membranes Moist, Normal Exam - Neck Exam Neck Exam: Full ROM, Normal Inspection. absent: Lymphadenopathy - Respiratory Exam Respiratory Exam: Decreased Breath Sounds - Cardiovascular Exam Cardiovascular Exam: REGULAR RHYTHM, +S1, +S2 - GI/Abdominal Exam GI & Abdominal Exam: Soft, Diminished Bowel Sounds - Rectal Exam Rectal Exam: Deferred - Neurological Exam Neurological Exam: Alert, Awake, Oriented x3 Assessment and Plan (1) Abscess Status: Acute (2) Crohn disease Status: Acute (3) Diarrhea Status: Acute (4) Intractable pain Status: Acute (5) Wound of right buttock Status: Acute (6) Abdominal pain Status: Acute (7) Constipation Status: Acute (8) Encounter for wound care Status: Acute (9) Fever Status: Acute (10) Foreign body Status: Acute (11) Intractable abdominal pain Status: Acute (12) Prophylactic measure Status: Acute (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
--- NOTE | 2016-11-29 15:44 | PCM.PSYCH ---
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 pt was consulted b/c of h/o depressive disorder. 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 Pt has been admitted multiple times on the medical floors because of Crohn's disease exacerbation. and b/c of repeated infections and abscesses. pt was just discharged last month. As per the pt he was just admitted on the medical floor because of a complication of CD. Yesterday he learned that his girl friend in a car accident in [place]. Pt became increasingly sad and depressed, and so the psychiatry was consulted. Pt reports depressed mood but denies any feelings of helplessness and hopelessness. He reports poor sleep but denies any suicidal ideation, or any homicidal ideation. He denies any Auditory or visual hallucinations, and any delusions. He denies any substance abuse. PMH: Crohn's disease Current Medications: Active Medications Generic Name Dose Route Start Last Admin Trade Name Freq PRN Reason Stop Dose Admin Diphenhydramine HCl 25 mg 11/26/16 00:52 11/29/16 14:34 Benadryl IVP 25 mg Q4 PRN Administration Allergy symptoms Fentanyl 1 patch 11/28/16 18:45 11/28/16 19:45 Duragesic TD 1 patch Q72H [facility] Administration Ferrous Sulfate 325 mg 11/26/16 12:15 11/29/16 09:09 Feosol PO 325 mg DAILY [facility] Administration Hydromorphone HCl 2 mg 11/26/16 00:51 11/29/16 14:36 Dilaudid IVP 2 mg Q2 PRN Administration Pain, moderate (4-7) Vancomycin/Sodium Chloride 200 mls @ 166.6 mls/hr 11/26/16 21:15 11/29/16 09:07 Vancocin IVPB 166.6 mls/hr Q12H [facility] Administration Meropenem 1 gm/ Sodium 100 mls @ 100 mls/hr 11/28/16 22:00 11/29/16 13:54 Chloride IVPB 100 mls/hr Q8 [facility] Administration Lidocaine 1 ea 11/26/16 13:30 11/29/16 09:15 Lidoderm TD Not Given DAILY [facility] Ondansetron HCl 4 mg 11/26/16 13:27 11/26/16 14:08 Zofran Tab PO 4 mg Q6H PRN Administration Nausea/Vomiting Pantoprazole Sodium 40 mg 11/26/16 10:00 11/29/16 09:09 Protonix Ec Tab PO 40 mg DAILY [facility] Administration Past Psychiatric History - Past Psychiatric History Previous Treatment History: None Pertinent Medical Hx (Current Medical&Sleep Prob, Allergies): Allergies Allergy/AdvReac Type Severity Reaction Status Date / Time morphine Allergy ITCHING Verified 11/25/16 22:28 Pantoprazole Sodium [Protonix] 20 mg PO DAILY 10/11/16 traZODone [Desyrel] 50 mg PO HS 10/11/16 oxyCODONE [oxyCONTIN] 20 mg PO Q12 #30 tabsr 11/24/16 oxyCODONE/Acetaminophen [Percocet 5/325 mg Tab] 1 tab PO Q4 #30 tab 11/24/16 Review of Systems - Review of Systems All systems: reviewed and no additional remarkable complaints except - Psychiatric Psychiatric: Anxiety, Depression, Irritability Mental Status Examination - Personal Presentation Personal Presentation: Looks stated age - Affect Affect: Constricted, Depressed - Motor Activity Motor Activity: Calm - Reliability in Providing Information Reliability in Providing Information: Good - Speech Speech: Organized - Mood Mood: Depressed, Anxious - Formal Thought Process Formal Thought Process: No Impairment - Obsessions/Compulsions Obsessions: No Compulsions: No - Cognitive Functions Orientation: Person, Place, Situation, Time Sensorium: Alert Attention/Concentration: Attentive Abstract Thinking: [place] Estimate of Intelligence: Below average Judgement: Intact, as evidence by: Good judgement, Intact, as evidence by: Insight regarding need for hospitalization - Risk Risk: Diminished functioning - Strength & Assets Inventory Strength & Assets Inventory: Cooperative - Limitations Limitations: Living alone DSM 5 DX - DSM 5 DSM 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
[2016-11-29] MEDS: HYDROmorphone 1 mg/ml ISec IVP PRN (22:24)
[2016-11-30] MEDS: DiphenhydrAMINE 50 mg/ml Inj IVP PRN ×6 (02:52→23:11)
[2016-11-30] MEDS: HYDROmorphone 1 mg/ml ISec IVP PRN ×6 (03:01→23:13)
[2016-11-30] MEDS: Meropenem 1 GM in Sodium Chloride 0.9% 100 ML IVPB SCH ×3 (05:10→21:32)
[2016-11-30] MEDS: Vancomycin 1 gm/NS 200 ml 200 ML IVPB SCH ×2 (08:38→20:31)
[2016-11-30] MEDS: Pantoprazole 40 mg EC Tab PO SCH (10:59)
[2016-11-30] MEDS: Lidocaine 5% Patch TD SCH (10:59)
--- NOTE | 2016-11-30 15:17 | CP.PCM.PN ---
Subjective - Date & Time of Evaluation Date of Evaluation: 11/30/16 Time of Evaluation: 08:00 - Subjective Subjective: clinically same Objective - Vital Signs/Intake and Output Vital Signs (last 24 hours): Temp Pulse Resp BP Pulse Ox 98.3 F 99 H 20 106/75 96 11/30/16 08:41 11/30/16 08:41 11/30/16 08:41 11/30/16 10:54 11/30/16 08:41 Intake and Output: 11/30/16 11/30/16 06:59 18:59 Intake Total 600 1490 Output Total 1300 Balance -700 1490 - Medications Medications: Current Medications Diphenhydramine HCl (Benadryl) 25 mg IVP Q4 PRN PRN Reason: Allergy symptoms Last Admin: 11/30/16 15:01 Dose: 25 mg Fentanyl (Duragesic) 1 patch TD Q72H [facility] Last Admin: 11/28/16 19:45 Dose: 1 patch Ferrous Sulfate (Feosol) 325 mg PO DAILY [facility] Last Admin: 11/30/16 10:59 Dose: 325 mg Hydromorphone HCl (Dilaudid) 2 mg IVP Q4H PRN PRN Reason: pain Last Admin: 11/30/16 15:01 Dose: 2 mg Vancomycin/Sodium Chloride (Vancocin) 200 mls @ 166.6 mls/hr IVPB Q12H [facility] Last Admin: 11/30/16 08:38 Dose: 166.6 mls/hr Meropenem 1 gm/ Sodium (Chloride) 100 mls @ 100 mls/hr IVPB Q8 [facility] Last Admin: 11/30/16 13:49 Dose: 100 mls/hr Sodium Chloride (Sodium Chloride 0.9%) 1,000 mls @ 50 mls/hr IV .Q20H [facility] Last Admin: 11/29/16 23:45 Dose: 50 mls/hr Lidocaine (Lidoderm) 1 ea TD DAILY [facility] Last Admin: 11/30/16 10:59 Dose: Not Given Ondansetron HCl (Zofran Tab) 4 mg PO Q6H PRN PRN Reason: Nausea/Vomiting Last Admin: 11/26/16 14:08 Dose: 4 mg Pantoprazole Sodium (Protonix Ec Tab) 40 mg PO DAILY [facility] Last Admin: 11/30/16 10:59 Dose: 40 mg Paroxetine HCl (Paxil) 10 mg PO DAILY [facility] Last Admin: 11/30/16 10:59 Dose: 10 mg Trazodone HCl (Desyrel) 50 mg PO [facility] Last Admin: 11/29/16 22:33 Dose: 50 mg - Labs Labs: 11/27/16 06:26 11/27/16 06:26 Assessment and Plan (1) DVT (deep venous thrombosis) Status: Acute (2) Diarrhea Status: Acute (3) Intractable pain Status: Acute (4) Wound of right buttock Status: Acute (5) Abdominal pain Status: Acute (6) Abscess Status: Acute (7) Constipation Status: Acute (8) Crohn disease Status: Acute (9) Diarrhea Status: Acute (10) Encounter for wound care Status: Acute (11) Fever Status: Acute (12) Foreign body Status: Acute (13) Intractable abdominal pain Status: Acute (14) Prophylactic measure Status: Acute (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 - Assessment and Plan (Free Text) Plan: clinicaly same iv dialudid iv antibiotic mx as ordered follow up with id gi pts siter was told to make gi appt at [facility] irina rodriguez
[2016-11-30] MEDS: Sodium Chloride 0.9% 1,000 ML IV SCH (19:45)
[2016-12-01] MEDS: HYDROmorphone 1 mg/ml ISec IVP PRN (04:38)
[2016-12-01] MEDS: DiphenhydrAMINE 50 mg/ml Inj IVP PRN ×5 (04:38→22:09)
[2016-12-01] MEDS: Meropenem 1 GM in Sodium Chloride 0.9% 100 ML IVPB SCH ×3 (05:36→22:05)
[2016-12-01] MEDS: Sodium Chloride 0.9% 1,000 ML IV SCH ×2 (05:36→22:11)
--- NOTE | 2016-12-01 08:55 | CP.PCM.PN ---
Subjective - Date & Time of Evaluation Date of Evaluation: 12/01/16 Time of Evaluation: 08:00 - Subjective Subjective: Medicine Note- Dr. Eric Barrett's service Patient was seen and examined at bedside. He says he still has pain in his perineal region, but it is well controlled on current medication regiment. Patient reports he that he often has to wipe stool from his bottom, despite having a colostomy bag. He says it happens often and wants surgery to take a look at it. No events overnight, per nursing. Objective - Vital Signs/Intake and Output Vital Signs (last 24 hours): Temp Pulse Resp BP Pulse Ox 98.4 F 117 H 20 100/63 99 12/01/16 00:00 12/01/16 00:00 12/01/16 00:00 12/01/16 00:00 12/01/16 00:00 Intake and Output: 12/01/16 12/01/16 06:59 18:59 Intake Total 800 690 Output Total 600 Balance 200 690 - Medications Medications: Current Medications Diphenhydramine HCl (Benadryl) 25 mg IVP Q4 PRN PRN Reason: Allergy symptoms Last Admin: 12/01/16 04:38 Dose: 25 mg Fentanyl (Duragesic) 1 patch TD Q72H [facility] Last Admin: 11/30/16 20:13 Dose: 1 patch Ferrous Sulfate (Feosol) 325 mg PO DAILY [facility] Last Admin: 11/30/16 10:59 Dose: 325 mg Hydromorphone HCl (Dilaudid) 2 mg IVP Q4H PRN PRN Reason: pain Last Admin: 12/01/16 04:38 Dose: 2 mg Vancomycin/Sodium Chloride (Vancocin) 200 mls @ 166.6 mls/hr IVPB Q12H [facility] Last Admin: 11/30/16 20:31 Dose: 166.6 mls/hr Meropenem 1 gm/ Sodium (Chloride) 100 mls @ 100 mls/hr IVPB Q8 [facility] Last Admin: 12/01/16 05:36 Dose: 100 mls/hr Sodium Chloride (Sodium Chloride 0.9%) 1,000 mls @ 50 mls/hr IV .Q20H [facility] Last Admin: 12/01/16 05:36 Dose: 50 mls/hr Ondansetron HCl (Zofran Tab) 4 mg PO Q6H PRN PRN Reason: Nausea/Vomiting Last Admin: 11/26/16 14:08 Dose: 4 mg Pantoprazole Sodium (Protonix Ec Tab) 40 mg PO DAILY [facility] Last Admin: 11/30/16 10:59 Dose: 40 mg Paroxetine HCl (Paxil) 10 mg PO DAILY [facility] Last Admin: 11/30/16 10:59 Dose: 10 mg Trazodone HCl (Desyrel) 50 mg PO HS [facility] Last Admin: 11/30/16 21:31 Dose: 50 mg - Labs Labs: 11/27/16 06:26 11/27/16 06:26 - Constitutional Appears: Non-toxic, No Acute Distress - Head Exam Head Exam: ATRAUMATIC, NORMAL INSPECTION, NORMOCEPHALIC - Eye Exam Pupil Exam: NORMAL ACCOMODATION, PERRL - ENT Exam ENT Exam: Mucous Membranes Moist - Respiratory Exam Respiratory Exam: Clear to Ausculation Bilateral, NORMAL BREATHING PATTERN. absent: Prolonged Expiratory Phase, Rhonchi, Wheezes - Cardiovascular Exam Cardiovascular Exam: REGULAR RHYTHM, +S1, +S2 - GI/Abdominal Exam GI & Abdominal Exam: Soft, Normal Bowel Sounds. absent: Tenderness, Diminished Bowel Sounds, Hernia, Hypoactive Bowel Sounds - Rectal Exam Rectal Exam: Deferred Additional comments: Perineal region still significantly ulcerated, hyperemic tissue. Multiple small abscess along buttock - Extremities Exam Extremities Exam: Normal Capillary Refill, Normal Inspection - Neurological Exam Neurological Exam: Alert, Awake, Oriented x3 - Psychiatric Exam Psychiatric exam: Normal Affect, Normal Mood - Skin Skin Exam: Dry, Intact, Normal Color, Warm Assessment and Plan - Assessment and Plan (Free Text) Assessment: 1. Abscesses WBC 10.6 on 11/27/16 Blood culture- 11/16/16- negative x 5 days Wound Culture- 11/26/16- ESBL E.coli and MRSA Surgery consult - Dr. Taylor - help appreciated Continue wound care and packing change ID consult - Dr. Daniel - help appreciated- Discussed possibility of DC tomorrow. Dr. Daniel will see patient today and document her recommendations. Meropenem 1gm Q8h [facility] Vancomycin 1gm Q12h [facility] PICC line ordered Duragesic patch 2. Crohn's disease Continue ostomy care Patient has outpt appointment with GI on 4/17/17 3. Intractable abdominal pain Lipase 203 IVF NS @50cc/hr recheck lipase in AM Dilaudid 2mg IVP Q2 Benadryl 25mg IVP Q2 with dilaudid 4. Chronic iron deficiency anemia Hgb 8.1 (stable since previous visits) MCV 64.5 Continue Feosol 325mg PO daily Monitor CBC 5. Prophylaxis Protonix 40mg PO daily SCDs All management and orders per Dr Shiloh Barrett. Discussed with attending.
[2016-12-01] MEDS: Pantoprazole 40 mg EC Tab PO SCH (09:22)
[2016-12-01] MEDS: Vancomycin 1 gm/NS 200 ml 200 ML IVPB SCH ×2 (09:23→22:05)
--- NOTE | 2016-12-01 13:27 | CP.PCM.PN ---
Subjective - Date & Time of Evaluation Date of Evaluation: 12/01/16 Time of Evaluation: 09:20 - Subjective Subjective: clinically same Objective - Vital Signs/Intake and Output Vital Signs (last 24 hours): Temp Pulse Resp BP Pulse Ox 98.7 F 97 H 20 109/73 100 12/01/16 08:00 12/01/16 08:00 12/01/16 08:00 12/01/16 08:00 12/01/16 08:00 Intake and Output: 12/01/16 12/01/16 06:59 18:59 Intake Total 800 690 Output Total 600 Balance 200 690 - Medications Medications: Current Medications Diphenhydramine HCl (Benadryl) 25 mg IVP Q4 PRN PRN Reason: Allergy symptoms Last Admin: 12/01/16 09:22 Dose: 25 mg Fentanyl (Duragesic) 1 patch TD Q72H [facility] Last Admin: 11/30/16 20:13 Dose: 1 patch Ferrous Sulfate (Feosol) 325 mg PO DAILY [facility] Last Admin: 12/01/16 09:22 Dose: 325 mg Hydromorphone HCl (Dilaudid) 2 mg IVP Q4H PRN PRN Reason: pain Last Admin: 12/01/16 09:24 Dose: 2 mg Vancomycin/Sodium Chloride (Vancocin) 200 mls @ 166.6 mls/hr IVPB Q12H [facility] Last Admin: 12/01/16 09:23 Dose: 166.6 mls/hr Meropenem 1 gm/ Sodium (Chloride) 100 mls @ 100 mls/hr IVPB Q8 [facility] Last Admin: 12/01/16 05:36 Dose: 100 mls/hr Sodium Chloride (Sodium Chloride 0.9%) 1,000 mls @ 50 mls/hr IV .Q20H [facility] Last Admin: 12/01/16 05:36 Dose: 50 mls/hr Ondansetron HCl (Zofran Tab) 4 mg PO Q6H PRN PRN Reason: Nausea/Vomiting Last Admin: 11/26/16 14:08 Dose: 4 mg Pantoprazole Sodium (Protonix Ec Tab) 40 mg PO DAILY [facility] Last Admin: 12/01/16 09:22 Dose: 40 mg Paroxetine HCl (Paxil) 10 mg PO DAILY [facility] Last Admin: 12/01/16 09:23 Dose: 10 mg Trazodone HCl (Desyrel) 50 mg PO HS [facility] Last Admin: 11/30/16 21:31 Dose: 50 mg - Labs Labs: 11/27/16 06:26 11/27/16 06:26 - Constitutional Appears: Well - Head Exam Head Exam: ATRAUMATIC, NORMAL INSPECTION, NORMOCEPHALIC - Eye Exam Eye Exam: EOMI, Normal appearance, PERRL Pupil Exam: NORMAL ACCOMODATION, PERRL - ENT Exam ENT Exam: Mucous Membranes Moist, Normal Exam - Neck Exam Neck Exam: Full ROM, Normal Inspection. absent: Lymphadenopathy - Respiratory Exam Respiratory Exam: Decreased Breath Sounds - Cardiovascular Exam Cardiovascular Exam: REGULAR RHYTHM, +S1, +S2 - GI/Abdominal Exam GI & Abdominal Exam: Soft, Diminished Bowel Sounds - Rectal Exam Rectal Exam: Deferred Assessment and Plan (1) DVT (deep venous thrombosis) Status: Acute (2) Diarrhea Status: Acute (3) Intractable pain Status: Acute (4) Wound of right buttock Status: Acute (5) Abdominal pain Status: Acute (6) Abscess Status: Acute (7) Constipation Status: Acute (8) Crohn disease Status: Acute (9) Diarrhea Status: Acute (10) Encounter for wound care Status: Acute (11) Fever Status: Acute (12) Foreign body Status: Acute (13) Intractable abdominal pain Status: Acute (14) Prophylactic measure Status: Acute (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 - Assessment and Plan (Free Text) Plan: asking for pain med although pt feels better iwth durgesic patch which he refue din past mulitple times pt is ok and want bendaryl q2 hr and pt advsied to take it as ordered as benadryl longer lasting than 2 hours pt udnerstands pt to be followe dup by [facility] gi gi. brian [place] along iv antibitic
--- NOTE | 2016-12-01 21:08 | CP.PCM.PN ---
Subjective - Date & Time of Evaluation Date of Evaluation: 12/01/16 Time of Evaluation: 03:00 - Subjective Subjective: dictated Objective - Vital Signs/Intake and Output Vital Signs (last 24 hours): Temp Pulse Resp BP Pulse Ox 97.8 F 108 H 20 107/63 100 12/01/16 15:15 12/01/16 15:15 12/01/16 15:15 12/01/16 15:15 12/01/16 18:24 Intake and Output: 12/01/16 12/02/16 18:59 06:59 Intake Total 1440 Output Total 700 Balance 740 - Medications Medications: Current Medications Diphenhydramine HCl (Benadryl) 25 mg IVP Q4 PRN PRN Reason: Allergy symptoms Last Admin: 12/01/16 18:03 Dose: 25 mg Fentanyl (Duragesic) 1 patch TD Q72H [facility] Last Admin: 11/30/16 20:13 Dose: 1 patch Ferrous Sulfate (Feosol) 325 mg PO DAILY [facility] Last Admin: 12/01/16 09:22 Dose: 325 mg Hydromorphone HCl (Dilaudid) 2 mg IVP Q4H PRN PRN Reason: pain Last Admin: 12/01/16 18:04 Dose: 2 mg Vancomycin/Sodium Chloride (Vancocin) 200 mls @ 166.6 mls/hr IVPB Q12H [facility] Last Admin: 12/01/16 09:23 Dose: 166.6 mls/hr Meropenem 1 gm/ Sodium (Chloride) 100 mls @ 100 mls/hr IVPB Q8 [facility] Last Admin: 12/01/16 13:37 Dose: 100 mls/hr Sodium Chloride (Sodium Chloride 0.9%) 1,000 mls @ 50 mls/hr IV .Q20H [facility] Last Admin: 12/01/16 05:36 Dose: 50 mls/hr Ondansetron HCl (Zofran Tab) 4 mg PO Q6H PRN PRN Reason: Nausea/Vomiting Last Admin: 11/26/16 14:08 Dose: 4 mg Pantoprazole Sodium (Protonix Ec Tab) 40 mg PO DAILY [facility] Last Admin: 12/01/16 09:22 Dose: 40 mg Paroxetine HCl (Paxil) 10 mg PO DAILY [facility] Last Admin: 12/01/16 09:23 Dose: 10 mg Trazodone HCl (Desyrel) 50 mg PO [facility] Last Admin: 11/30/16 21:31 Dose: 50 mg - Labs Labs: 11/27/16 06:26 11/27/16 06:26
--- NOTE | 2016-12-01 21:40 | PN ---
DATE: 12/01/2016 They told me that they want to send him home, I was convincing him to go home with or without IV anti biotics, but he says he has been having stool from the rectum or in the perineum area and he is not a ble to clean it well because of the pain. He has stool coming from bottom in spite of having a colos brandi bag. He wants to make sure the surgeon knows about it and do something about it as he has had c olostomy for 7-8 months. He remains afebrile and I discussed that he is growing resistant organisms and in spite of antibiotics he may not get cured because the problem that he has probably Crohn's and needs to be treated for that. He wanted me to talk to Dr. Taylor which I will try again. PHYSICAL EXAMINATION: HEENT: Head is atraumatic, normocephalic. NECK: Supple. VITAL SIGNS: Stable. Heart rate is 108, temperature 97.8, blood pressure 107/63, respirations are 2 0. LUNGS: Clear. No crackles or rales present. HEART: S1, S2 regular. ABDOMEN: Soft, nontender. He also has a colostomy in the perineal area, I could never examined as he does not allow me to check . LABORATORY DATA: White count is 10.6, this is from 11/27 and he was back on 11/25 so he has gotten like 6 days' worth of antibiotics now. He has E. coli, which is ESBL positive and MRSA positive. He has a PICC line present at this time. Will discuss the plan with Dr. Eric Barrett as well as Dr. Genia horton and see how we can get him home. Santosh Daniel MD cc: [id number] TT: 12/01/2016 21:39:32 Confirmation # [id number] Dictation # [id number] [place]
[2016-12-02] MEDS: DiphenhydrAMINE 50 mg/ml Inj IVP PRN ×6 (02:25→22:17)
[2016-12-02] MEDS: Meropenem 1 GM in Sodium Chloride 0.9% 100 ML IVPB SCH ×3 (05:25→22:11)
[2016-12-02] MEDS: Vancomycin 1 gm/NS 200 ml 200 ML IVPB SCH ×3 (08:03→21:30)
[2016-12-02 08:11] LABS: BASO # 0.1 K/uL (0.0-0.2); BASO % 0.8 % (0.0-2.0); EOS # 0.7 K/uL (0.0-0.7); EOS % 8.1 % (0.0-4.0); HEMATOCRIT 28.3 % (35.0-51.0); LYMPH # 2.7 K/uL (1.0-4.3); LYMPH % 30.6 % (20.0-40.0); MEAN CELL VOLUME 64.8 fL (80.0-94.0); MEAN CORPUSCULAR HEMOGLOBIN 19.5 pg (27.0-31.0); MEAN CORPUSCULAR HGB CONC 30.1 g/dL (33.0-37.0); MEAN PLATELET VOLUME 7.8 fL (7.2-11.7); MONO # 0.5 K/uL (0.0-0.8); MONO % 5.7 % (0.0-10.0); NRBC % 0.1 % (0.0-2.0); RED CELL DISTRIBUTION WIDTH 16.1 % (11.5-14.5); WHITE BLOOD COUNT 8.9 K/uL (4.8-10.8)
[2016-12-02 08:32] LABS: CHLORIDE 95 mmol/L (98-107); SODIUM 138 mmol/L (132-148)
[2016-12-02 08:33] LABS: POTASSIUM 3.9 mmol/L (3.6-5.2)
[2016-12-02 08:35] LABS: ALB/GLOB RATIO 0.9 (1.0-2.1); ALKALINE PHOSPHATASE 99 U/L (38-126); ALT/SGPT 19 U/L (21-72); AST/SGOT 38 U/L (17-59); BILIRUBIN,TOTAL 0.2 mg/dL (0.2-1.3); BLOOD UREA NITROGEN 4 mg/dL (9-20); CARBON DIOXIDE 30 mmol/L (22-30); GFR AFRICAN-AMERICAN > 60; GLUCOSE,RANDOM 86 mg/dL (75-110); TOTAL PROTEIN 7.2 g/dL (6.3-8.3)
[2016-12-02 08:36] LABS: CALCIUM 8.6 mg/dl (8.6-10.4)
--- NOTE | 2016-12-02 10:07 | CP.PCM.PN ---
Subjective - Date & Time of Evaluation Date of Evaluation: 12/02/16 Time of Evaluation: 09:00 - Subjective Subjective: clinically same pain being managed with duragesic patch ongoing iv abx Objective - Vital Signs/Intake and Output Vital Signs (last 24 hours): Temp Pulse Resp BP Pulse Ox 97.6 F 97 H 20 103/70 99 12/02/16 08:18 12/02/16 08:18 12/02/16 08:18 12/02/16 08:18 12/02/16 08:18 Intake and Output: 12/02/16 12/02/16 06:59 18:59 Intake Total 1630 Output Total 900 Balance 730 - Medications Medications: Current Medications Diphenhydramine HCl (Benadryl) 25 mg IVP Q4 PRN PRN Reason: Allergy symptoms Last Admin: 12/02/16 06:35 Dose: 25 mg Fentanyl (Duragesic) 1 patch TD Q72H [facility] Last Admin: 11/30/16 20:13 Dose: 1 patch Ferrous Sulfate (Feosol) 325 mg PO DAILY [facility] Last Admin: 12/01/16 09:22 Dose: 325 mg Hydromorphone HCl (Dilaudid) 2 mg IVP Q4H PRN PRN Reason: pain Last Admin: 12/02/16 06:35 Dose: 2 mg Vancomycin/Sodium Chloride (Vancocin) 200 mls @ 166.6 mls/hr IVPB Q12H [facility] Last Admin: 12/02/16 08:03 Dose: 166.6 mls/hr Meropenem 1 gm/ Sodium (Chloride) 100 mls @ 100 mls/hr IVPB Q8 [facility] Last Admin: 12/02/16 05:25 Dose: 100 mls/hr Sodium Chloride (Sodium Chloride 0.9%) 1,000 mls @ 50 mls/hr IV .Q20H [facility] Last Admin: 12/01/16 22:11 Dose: Not Given Ondansetron HCl (Zofran Tab) 4 mg PO Q6H PRN PRN Reason: Nausea/Vomiting Last Admin: 11/26/16 14:08 Dose: 4 mg Pantoprazole Sodium (Protonix Ec Tab) 40 mg PO DAILY [facility] Last Admin: 12/01/16 09:22 Dose: 40 mg Paroxetine HCl (Paxil) 10 mg PO DAILY [facility] Last Admin: 12/01/16 09:23 Dose: 10 mg Trazodone HCl (Desyrel) 50 mg PO HS [facility] Last Admin: 12/01/16 22:05 Dose: 50 mg - Labs Labs: 12/02/16 07:57 12/02/16 07:57 - Constitutional Appears: Well - Head Exam Head Exam: ATRAUMATIC, NORMAL INSPECTION, NORMOCEPHALIC - Eye Exam Eye Exam: EOMI, Normal appearance, PERRL Pupil Exam: NORMAL ACCOMODATION, PERRL - ENT Exam ENT Exam: Mucous Membranes Moist, Normal Exam - Neck Exam Neck Exam: Full ROM, Normal Inspection. absent: Lymphadenopathy - Respiratory Exam Respiratory Exam: Decreased Breath Sounds - Cardiovascular Exam Cardiovascular Exam: REGULAR RHYTHM, +S1, +S2 - GI/Abdominal Exam GI & Abdominal Exam: Soft, Diminished Bowel Sounds - Rectal Exam Rectal Exam: Deferred - Neurological Exam Neurological Exam: Alert, Awake, Oriented x3 Assessment and Plan (1) Abscess Status: Acute (2) Crohn disease Status: Acute (3) Diarrhea Status: Acute (4) Intractable pain Status: Acute (5) Wound of right buttock Status: Acute (6) Abdominal pain Status: Acute (7) Constipation Status: Acute (8) Encounter for wound care Status: Acute (9) Fever Status: Acute (10) Foreign body Status: Acute (11) Intractable abdominal pain Status: Acute (12) Prophylactic measure Status: Acute (13) Rectal fistula Status: Acute (14) Rectal pain Status: Acute - Assessment and Plan (Free Text) Plan: iv abx f/u with consultants irina agarwal as ordered f/u labs
--- NOTE | 2016-12-02 10:18 | CP.PCM.PN ---
<Sherri Hyman - Last Filed: 12/02/16 20:35> Subjective - Date & Time of Evaluation Date of Evaluation: 12/02/16 Time of Evaluation: 09:00 - Subjective Subjective: Medicine Progress Note- Dr. Shiloh Barrett's patient: Patient seen and examined at bedside this AM. Patient reports pain is 9/10 this morning. Patient's pain improved with pain medication. Patient feels upset regarding ex-girlfriend recently over the weekend. Patient states he feels mournful, but not depressed. He "came out of depression" 3 months ago. He denies SI/HI. Objective - Vital Signs/Intake and Output Vital Signs (last 24 hours): Temp Pulse Resp BP Pulse Ox 97.6 F 97 H 20 103/70 99 12/02/16 08:18 12/02/16 08:18 12/02/16 08:18 12/02/16 08:18 12/02/16 08:18 Intake and Output: 12/02/16 12/02/16 06:59 18:59 Intake Total 1630 Output Total 900 Balance 730 - Medications Medications: Current Medications Diphenhydramine HCl (Benadryl) 25 mg IVP Q4 PRN PRN Reason: Allergy symptoms Last Admin: 12/02/16 06:35 Dose: 25 mg Fentanyl (Duragesic) 1 patch TD Q72H [facility] Last Admin: 11/30/16 20:13 Dose: 1 patch Ferrous Sulfate (Feosol) 325 mg PO DAILY [facility] Last Admin: 12/01/16 09:22 Dose: 325 mg Hydromorphone HCl (Dilaudid) 2 mg IVP Q4H PRN PRN Reason: pain Last Admin: 12/02/16 06:35 Dose: 2 mg Vancomycin/Sodium Chloride (Vancocin) 200 mls @ 166.6 mls/hr IVPB Q12H [facility] Last Admin: 12/02/16 08:03 Dose: 166.6 mls/hr Meropenem 1 gm/ Sodium (Chloride) 100 mls @ 100 mls/hr IVPB Q8 [facility] Last Admin: 12/02/16 05:25 Dose: 100 mls/hr Sodium Chloride (Sodium Chloride 0.9%) 1,000 mls @ 50 mls/hr IV .Q20H [facility] Last Admin: 12/01/16 22:11 Dose: Not Given Ondansetron HCl (Zofran Tab) 4 mg PO Q6H PRN PRN Reason: Nausea/Vomiting Last Admin: 11/26/16 14:08 Dose: 4 mg Pantoprazole Sodium (Protonix Ec Tab) 40 mg PO DAILY [facility] Last Admin: 12/01/16 09:22 Dose: 40 mg Paroxetine HCl (Paxil) 10 mg PO DAILY [facility] Last Admin: 12/01/16 09:23 Dose: 10 mg Trazodone HCl (Desyrel) 50 mg PO HS [facility] Last Admin: 12/01/16 22:05 Dose: 50 mg - Labs Labs: 12/02/16 07:57 12/02/16 07:57 - Constitutional Appears: No Acute Distress - Head Exam Head Exam: NORMAL INSPECTION, NORMOCEPHALIC - Eye Exam Eye Exam: EOMI, Normal appearance - ENT Exam ENT Exam: Mucous Membranes Moist - Neck Exam Neck Exam: Full ROM, Normal Inspection - Respiratory Exam Respiratory Exam: Clear to Ausculation Bilateral, NORMAL BREATHING PATTERN - Cardiovascular Exam Cardiovascular Exam: REGULAR RHYTHM, +S1, +S2 - GI/Abdominal Exam GI & Abdominal Exam: Soft, Tenderness. absent: Distended Additional comments: +colostomy bag - Extremities Exam Extremities Exam: Full ROM, Normal Inspection - Neurological Exam Neurological Exam: Alert, Awake, Oriented x3 - Psychiatric Exam Psychiatric exam: Normal Affect, Normal Mood - Skin Skin Exam: Normal Color, Warm Assessment and Plan - Assessment and Plan (Free Text) Assessment: 1. Abscesses WBC 8.9 on 12/02/16 Blood culture- 11/16/16- negative Wound Culture- 11/26/16- ESBL E.coli and MRSA Surgery consult - Dr. Taylor - help appreciated Continue wound care and packing change ID consult - Dr. Daniel - help appreciated Discussed possibility of DC tomorrow As per Dr. Daniel, patient to be discharged on 7 day course of IV Zyvox. For now continue: Meropenem 1gm Q8h [facility] Vancomycin 1gm Q12h [facility] PICC in place Duragesic patch 2. Crohn's disease Continue ostomy care GI consult placed for Dr. Shukla. f/u GI recs 3. Intractable abdominal pain Lipase 203 IVF NS @50cc/hr recheck lipase in AM Dilaudid 2mg IVP Q4 Fentanyl patch q72H Benadryl 25mg IVP Q2 4. Chronic iron deficiency anemia Hgb stable Continue Feosol 325mg PO daily Monitor CBC 5. Depression Continue Paxil 10 mg PO daily Continue Trazodone at night. 6. Prophylactic measure Protonix 40mg PO daily [facility] All management and orders per Dr Shiloh Barrett. <Osvaldo Barrett S - Last Filed: 03/24/17 22:30> Objective - Vital Signs/Intake and Output Vital Signs (last 24 hours): Temp Pulse Resp BP Pulse Ox 98.2 F 94 H 20 110/68 99 12/04/16 15:30 12/04/16 16:11 12/04/16 15:30 12/04/16 15:30 12/04/16 15:30 - Labs Labs: 12/04/16 07:10 12/04/16 07:10 Assessment and Plan (1) DVT (deep venous thrombosis) Status: Acute (2) Diarrhea Status: Acute (3) Intractable pain Status: Acute (4) Wound of right buttock Status: Acute (5) Abdominal pain Status: Acute (6) Abscess Status: Acute (7) Constipation Status: Acute (8) Crohn disease Status: Acute (9) Diarrhea Status: Acute (10) Encounter for wound care Status: Acute (11) Fever Status: Acute (12) Foreign body Status: Acute (13) Intractable abdominal pain Status: Acute (14) Prophylactic measure Status: Acute (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
[2016-12-02] MEDS: Pantoprazole 40 mg EC Tab PO SCH (10:34)
[2016-12-02] MEDS: Sodium Chloride 0.9% 1,000 ML IV SCH (12:13)
--- NOTE | 2016-12-02 17:32 | CP.PCM.CON ---
History of Present Illness - History of Present Illness History of Present Illness: This is a 21 year old man with pelvic pain. He has a four-year history of Crohn's disease with an initial presentation of perianal disease. He was treated with Asacol and Humira. A partial colectomy was performed in 2014. Humira was stopped owing to insurance issues. The perianal disease has primary consisted of perirectal abscesses which have been managed with I&D, which has been performed up to 15 times. There was a discussion of restating Humira or switching to Remicade, but he has not started either drug. A loop colostomy was performed in April,, to allow healing of the perianal disease. He has had multiple admissions to this year: 09/23 for two weeks; 10/11 for one week; 10/21 for one month; and 11/18 for one week. He signed out of the hospital AMA on 11/24 and was readmitted. He has previously been seen by Dr. Hines and Dr. Lopez. He has frequent periumbilical cramping pain which seems worse after eating dairy food. The stool in the colostomy has been formed recently. He denies having bleeding per colostomy, though he has noted leakage around the colostomy. He also reports fever, chills, nausea, sweats, and weight loss of 40 pounds. He denies having vomiting or joint pain. Review of Systems - Review of Systems All systems: reviewed and no additional remarkable complaints except - Constitutional Constitutional: Chills, Fever, Night Sweats - Gastrointestinal Gastrointestinal: Abdominal Pain, Nausea. absent: Hematochezia, Vomiting Past Patient History - Infectious Disease Hx of Infectious Diseases: None - Past Medical History & Family History Past Medical History?: Yes - Past Social History Smoking Status: Unknown If Ever Smoked - CARDIAC Hx Cardiac Disorders: No - PULMONARY Hx Respiratory Disorders: No - NEUROLOGICAL Hx Neurological Disorder: No - HEENT Hx HEENT Problems: No - RENAL Hx Chronic Kidney Disease: No - ENDOCRINE/METABOLIC Hx Endocrine Disorders: No - HEMATOLOGICAL/ONCOLOGICAL Hx Blood Disorders: No - INTEGUMENTARY Hx Dermatological Problems: Yes Other/Comment: Perineal wound. Rectal abcess - MUSCULOSKELETAL/RHEUMATOLOGICAL Hx Musculoskeletal Disorders: No Hx Falls: No - GASTROINTESTINAL Hx Crohn's Disease: Yes (COLOSTOMY 2016) - GENITOURINARY/GYNECOLOGICAL Hx Genitourinary Disorders: No - PSYCHIATRIC Hx Depression: Yes Hx Substance Use: No - SURGICAL HISTORY Hx Surgeries: Yes (SEE COMMENT) Other/Comment: LOOP COLOSTOMY. Perineal wound. Left upper arm PICC Line - taken out 11/24/2016 - ANESTHESIA Hx Anesthesia: Yes Hx Anesthesia Reactions: No Hx Malignant Hyperthermia: No Has any member of the family had a problem w/ anesthesia?: No Meds Home Medications: Home Medication List Medication Instructions Recorded Confirmed Type PARoxetine [Paxil] 10 mg PO DAILY #30 tab 12/02/16 Rx fentaNYL 75 mcg/hr [Duragesic 1 ea TD Q72 PRN #10 patch 12/02/16 Rx Patch 75 mcg/hr] traZODone [Desyrel] 50 mg PO HS #30 12/02/16 11/25/16 Rx oxyCODONE/Acetaminophen [Percocet 1 tab PO Q6H PRN #20 tab 12/03/16 Rx 5/325 mg Tab] Allergies/Adverse Reactions: Allergies Allergy/AdvReac Type Severity Reaction Status Date / Time morphine Allergy ITCHING Verified 11/25/16 22:28 - Medications Medications: Current Medications Diphenhydramine HCl (Benadryl) 25 mg IVP Q4 PRN PRN Reason: Allergy symptoms Last Admin: 12/02/16 14:23 Dose: 25 mg Fentanyl (Duragesic) 1 patch TD Q72H [facility] Last Admin: 11/30/16 20:13 Dose: 1 patch Ferrous Sulfate (Feosol) 325 mg PO DAILY [facility] Last Admin: 12/02/16 10:34 Dose: 325 mg Hydromorphone HCl (Dilaudid) 2 mg IVP Q4H PRN PRN Reason: pain Last Admin: 12/02/16 14:23 Dose: 2 mg Vancomycin/Sodium Chloride (Vancocin) 200 mls @ 166.6 mls/hr IVPB Q12H [facility] Last Admin: 12/02/16 12:15 Dose: Not Given Meropenem 1 gm/ Sodium (Chloride) 100 mls @ 100 mls/hr IVPB Q8 [facility] Last Admin: 12/02/16 14:22 Dose: 100 mls/hr Sodium Chloride (Sodium Chloride 0.9%) 1,000 mls @ 50 mls/hr IV .Q20H [facility] Last Admin: 12/02/16 12:13 Dose: Not Given Ondansetron HCl (Zofran Tab) 4 mg PO Q6H PRN PRN Reason: Nausea/Vomiting Last Admin: 11/26/16 14:08 Dose: 4 mg Pantoprazole Sodium (Protonix Ec Tab) 40 mg PO DAILY [facility] Last Admin: 12/02/16 10:34 Dose: 40 mg Paroxetine HCl (Paxil) 10 mg PO DAILY [facility] Last Admin: 12/02/16 10:34 Dose: 10 mg Trazodone HCl (Desyrel) 50 mg PO HS [facility] Last Admin: 12/01/16 22:05 Dose: 50 mg Physical Exam - Constitutional Appears: No Acute Distress - Head Exam Head Exam: ATRAUMATIC, NORMOCEPHALIC - Eye Exam Eye Exam: EOMI, PERRL - Neck Exam Neck exam: Negative for: Lymphadenopathy, Thyromegaly - Respiratory Exam Respiratory Exam: NORMAL BREATHING PATTERN. absent: Rales, Rhonchi, Wheezes - Cardiovascular Exam Cardiovascular Exam: REGULAR RHYTHM, +S1, +S2. absent: Gallop, Rubs, Systolic Murmur - GI/Abdominal Exam GI & Abdominal Exam: Normal Bowel Sounds, Soft. absent: Organomegaly, Tenderness Additional comments: L mid abdomen colostomy - Rectal Exam Rectal Exam: Deferred - Extremities Exam Extremities exam: Negative for: calf tenderness, pedal edema Results - Vital Signs Recent Vital Signs: Last Vital Signs Temp 98.1 F 12/02/16 16:00 Pulse 101 H 12/02/16 16:00 Resp 20 12/02/16 16:00 BP 105/73 12/02/16 16:00 Pulse Ox 99 12/02/16 16:00 - Labs Result Diagrams: 12/03/16 09:39 12/03/16 09:39 Labs: Laboratory Results - last 24 hr 12/02/16 07:57 WBC 8.9 RBC 4.38 L Hgb 8.5 L Hct 28.3 L MCV 64.8 L MCH 19.5 L MCHC 30.1 L RDW 16.1 H Plt Count 357 D MPV 7.8 Neut % (Auto) 54.8 Lymph % (Auto) 30.6 [place] % (Auto) 5.7 Eos % (Auto) 8.1 H Baso % (Auto) 0.8 Neut # 4.9 Lymph # 2.7 [place] # 0.5 Eos # 0.7 Baso # 0.1 Differential Comment Sodium 138 Potassium 3.9 Chloride 95 L Carbon Dioxide 30 Anion Gap 17 BUN 4 L Creatinine 0.6 L Est GFR ( Amer) > 60 Est GFR (Non-Af Amer) > 60 Random Glucose 86 Calcium 8.6 Total Bilirubin 0.2 AST 38 ALT 19 L D Alkaline Phosphatase 99 Total Protein 7.2 Albumin 3.5 Globulin 3.7 Albumin/Globulin Ratio 0.9 L Assessment & Plan (1) Crohn disease Assessment and Plan: Patient has a history of Crohn's disease with multiple fistulae and perirectal abscesses. At present, he is being treated with antibiotics. The MRI showed a small phlegmon/collection inferior to the tip of the coccyx with 2 fistula tract emanating from this, 1 extending towards the lower left gluteal cleft and a 2nd extending into the midline skin terminating in a small collection above the gluteal cleft, in the subcutaneous soft tissues. There is inflammation along the left perianal soft tissues. Extending directly to the phlegmon/collection at the inferior tip of the coccyx. No perianal abscess identified. Inflammation along the anterior and posterior aspect of the coccyx/ sacrum as described consistent with soft tissue inflammation or periosteal inflammation. No evidence of marrow edema. Recommend consultation with colorectal surgery. Consider resumption of Humira or Remicade once perirectal infection has been addressed. Status: Acute
[2016-12-02] MEDS ORDERED: Gadodiamide 287 MG/ML VIAL (15ML) IV ONE (19:20)
[2016-12-03] MEDS: DiphenhydrAMINE 50 mg/ml Inj IVP PRN ×5 (02:30→22:25)
[2016-12-03] MEDS: Meropenem 1 GM in Sodium Chloride 0.9% 100 ML IVPB SCH ×3 (05:25→22:23)
--- NOTE | 2016-12-03 07:51 | CP.PCM.PN ---
<Antonio Foster - Last Filed: 12/03/16 15:12> Subjective - Date & Time of Evaluation Date of Evaluation: 12/03/16 Time of Evaluation: 07:10 - Subjective Subjective: Medicine Note- Dr. Barrett's service Patient was seen and examined at bedside. Patient reports no acute complaints at this time. He says his pain is well controlled. No events overnight, per nursing. Objective - Vital Signs/Intake and Output Vital Signs (last 24 hours): Temp Pulse Resp BP Pulse Ox 98.6 F 105 H 20 104/74 100 12/03/16 06:00 12/03/16 00:00 12/03/16 00:00 12/03/16 00:00 12/03/16 00:00 Intake and Output: 12/03/16 12/03/16 06:59 18:59 Intake Total 1430 Balance 1430 - Medications Medications: Current Medications Diphenhydramine HCl (Benadryl) 25 mg IVP Q4 PRN PRN Reason: Allergy symptoms Last Admin: 12/03/16 06:35 Dose: 25 mg Fentanyl (Duragesic) 1 patch TD Q72H [facility] Last Admin: 11/30/16 20:13 Dose: 1 patch Ferrous Sulfate (Feosol) 325 mg PO DAILY [facility] Last Admin: 12/02/16 10:34 Dose: 325 mg Hydromorphone HCl (Dilaudid) 2 mg IVP Q4H PRN PRN Reason: pain Last Admin: 12/03/16 06:35 Dose: 2 mg Vancomycin/Sodium Chloride (Vancocin) 200 mls @ 166.6 mls/hr IVPB Q12H [facility] Last Admin: 12/02/16 21:30 Dose: 166.6 mls/hr Meropenem 1 gm/ Sodium (Chloride) 100 mls @ 100 mls/hr IVPB Q8 [facility] Last Admin: 12/03/16 05:25 Dose: 100 mls/hr Ondansetron HCl (Zofran Tab) 4 mg PO Q6H PRN PRN Reason: Nausea/Vomiting Last Admin: 11/26/16 14:08 Dose: 4 mg Pantoprazole Sodium (Protonix Ec Tab) 40 mg PO DAILY [facility] Last Admin: 12/02/16 10:34 Dose: 40 mg Paroxetine HCl (Paxil) 10 mg PO DAILY [facility] Last Admin: 12/02/16 10:34 Dose: 10 mg Trazodone HCl (Desyrel) 50 mg PO HS [facility] Last Admin: 12/02/16 22:12 Dose: 50 mg - Labs Labs: 12/02/16 07:57 12/02/16 07:57 - Constitutional Appears: Non-toxic, No Acute Distress - Head Exam Head Exam: ATRAUMATIC, NORMAL INSPECTION, NORMOCEPHALIC - Eye Exam Pupil Exam: NORMAL ACCOMODATION, PERRL - ENT Exam ENT Exam: Mucous Membranes Moist - Respiratory Exam Respiratory Exam: Clear to Ausculation Bilateral, NORMAL BREATHING PATTERN. absent: Prolonged Expiratory Phase, Rales, Rhonchi, Wheezes - Cardiovascular Exam Cardiovascular Exam: REGULAR RHYTHM, +S1, +S2 - GI/Abdominal Exam GI & Abdominal Exam: Soft, Normal Bowel Sounds. absent: Tenderness, Diminished Bowel Sounds, Hypoactive Bowel Sounds Additional comments: colostomy bag present with stool - Neurological Exam Neurological Exam: Alert, Awake, Oriented x3 - Psychiatric Exam Psychiatric exam: Normal Affect, Normal Mood - Skin Skin Exam: Dry, Intact, Normal Color, Warm Assessment and Plan - Assessment and Plan (Free Text) Assessment: 1. Abscesses WBC 8.9 on 12/02/16 Blood culture- 11/16/16- negative Wound Culture- 11/26/16- ESBL E.coli and MRSA Surgery consult - Dr. Taylor - help appreciated Continue wound care and packing change ID consult - Dr. Daniel - help appreciated Discussed case with Dr. Daniel- patient will be discharged with Vancomycin 1gm Q12h and Meropenem 1gm Q8h for 10 days. Patient will receive home infusions, patient was educated by house staff and IV company staff member. For now continue: Meropenem 1gm Q8h [facility] Vancomycin 1gm Q12h [facility] PICC in place Duragesic patch Pelvis MRI- 12/03/16- Small phlegmon/collection inferior to the tip of the coccyx with 2 fistula tract emanating from this, 1 extending towards the lower left gluteal cleft and a 2nd extending into the midline skin terminating in a small collection above the gluteal cleft, in the subcutaneous soft tissues. There is inflammation along the left perianal soft tissues. There is inflammation along the left perianal soft tissues. Extending directly to the phlegmon/collection at the inferior tip of the coccyx. (Please see full report) 2. Crohn's disease Continue ostomy care GI consult placed for Dr. Shukla. f/u GI recs 3. Intractable abdominal pain Lipase 203 IVF NS @50cc/hr recheck lipase in AM Dilaudid 2mg IVP Q4 Fentanyl patch q72H Benadryl 25mg IVP Q2 4. Chronic iron deficiency anemia Hgb stable Continue Feosol 325mg PO daily Monitor CBC 5. Depression Continue Paxil 10 mg PO daily Continue Trazodone at night. 6. Prophylactic measure Protonix 40mg PO daily [facility] All management and orders per Dr Shiloh Barrett. As per Dr. Barrett, patient will be discharged tomorrow AM. <Osvaldo Barrett - Last Filed: 12/03/16 21:36> Objective - Vital Signs/Intake and Output Vital Signs (last 24 hours): Temp Pulse Resp BP Pulse Ox 98 F 93 H 20 107/72 100 12/03/16 15:35 12/03/16 16:55 12/03/16 15:35 12/03/16 15:35 12/03/16 15:35 - Medications Medications: Current Medications Diphenhydramine HCl (Benadryl) 25 mg IVP Q4 PRN PRN Reason: Allergy symptoms Last Admin: 12/03/16 14:26 Dose: 25 mg Fentanyl (Duragesic) 1 patch TD Q72H [facility] Last Admin: 12/03/16 19:38 Dose: 1 patch Ferrous Sulfate (Feosol) 325 mg PO DAILY [facility] Last Admin: 12/03/16 09:32 Dose: 325 mg Hydromorphone HCl (Dilaudid) 2 mg IVP Q4H PRN PRN Reason: pain Last Admin: 12/03/16 18:28 Dose: 2 mg Vancomycin/Sodium Chloride (Vancocin) 200 mls @ 166.6 mls/hr IVPB Q12H [facility] Last Admin: 12/03/16 20:45 Dose: 166.6 mls/hr Meropenem 1 gm/ Sodium (Chloride) 100 mls @ 100 mls/hr IVPB Q8 [facility] Last Admin: 12/03/16 14:27 Dose: 100 mls/hr Ondansetron HCl (Zofran Tab) 4 mg PO Q6H PRN PRN Reason: Nausea/Vomiting Last Admin: 11/26/16 14:08 Dose: 4 mg Pantoprazole Sodium (Protonix Ec Tab) 40 mg PO DAILY [facility] Last Admin: 12/03/16 09:32 Dose: 40 mg Paroxetine HCl (Paxil) 10 mg PO DAILY [facility] Last Admin: 12/03/16 09:32 Dose: 10 mg Trazodone HCl (Desyrel) 50 mg PO [facility] Last Admin: 12/03/16 21:20 Dose: 50 mg - Labs Labs: 12/03/16 09:39 12/03/16 09:39 Attending/Attestation - Attestation I have personally seen and examined this patient.: Yes I have fully participated in the care of the patient.: Yes I have reviewed all pertinent clinical information, including history, physical exam and plan: Yes Notes (Text): 12/03/16 21:36 case seen and discussed iwt resident and staff
[2016-12-03] MEDS: Vancomycin 1 gm/NS 200 ml 200 ML IVPB SCH ×2 (09:30→20:45)
[2016-12-03] MEDS: Pantoprazole 40 mg EC Tab PO SCH (09:32)
[2016-12-03 09:55] LABS: BASO # 0.1 K/uL (0.0-0.2); BASO % 1.4 % (0.0-2.0); EOS # 0.6 K/uL (0.0-0.7); EOS % 6.8 % (0.0-4.0); HEMATOCRIT 26.9 % (35.0-51.0); LYMPH # 3.2 K/uL (1.0-4.3); LYMPH % 37.1 % (20.0-40.0); MEAN CELL VOLUME 64.8 fL (80.0-94.0); MEAN CORPUSCULAR HEMOGLOBIN 19.7 pg (27.0-31.0); MEAN CORPUSCULAR HGB CONC 30.3 g/dL (33.0-37.0); MONO # 0.5 K/uL (0.0-0.8); MONO % 6.1 % (0.0-10.0); RED CELL DISTRIBUTION WIDTH 16.3 % (11.5-14.5); WHITE BLOOD COUNT 8.6 K/uL (4.8-10.8)
[2016-12-03 09:59] LABS: CHLORIDE 99 mmol/L (98-107); POTASSIUM 4.2 mmol/L (3.6-5.2); SODIUM 138 mmol/L (132-148)
[2016-12-03 10:01] LABS: GFR AFRICAN-AMERICAN > 60
[2016-12-03 10:02] LABS: ALB/GLOB RATIO 0.9 (1.0-2.1); ALKALINE PHOSPHATASE 127 U/L (38-126); ALT/SGPT 28 U/L (21-72); AST/SGOT 41 U/L (17-59); BILIRUBIN,TOTAL < 0.1 mg/dL (0.2-1.3); BLOOD UREA NITROGEN 4 mg/dL (9-20); CARBON DIOXIDE 28 mmol/L (22-30); GLUCOSE,RANDOM 89 mg/dL (75-110); TOTAL PROTEIN 6.8 g/dL (6.3-8.3)
[2016-12-03 10:03] LABS: CALCIUM 8.2 mg/dl (8.6-10.4)
--- NOTE | 2016-12-03 13:46 | MRI ---
PROCEDURE: MRI pelvis with and without gadolinium HISTORY: Perirectal abscesses COMPARISON: CT abdomen/ pelvis TECHNIQUE: Multiplanar, multi sequence imaging of the pelvis was performed both with and without intravenous gadolinium administration. FINDINGS: There is a small phlegmon or johnathan collection containing some gas bubbles just inferior to the tip of the coccyx. This measures approximately 1.2 x 1.9 cm. There are 2 fistula tracts emanating from this region. One extends posteriorly and inferiorly towards the skin of the left gluteal cleft. A 2nd tract is seen extending superiorly in the midline to terminate in the skin above the superior extent of the gluteal cleft. At this point, just beneath the skin, there is a small phlegmon or collection measuring 0.9 x 1.7 cm. There is enhancement indicative of inflammation extending anteriorly and posteriorly along the sacrum. This may represent soft tissue inflammation or periosteal inflammation. This extends posteriorly up to the level of approximately S1 and anteriorly up to the level of S 3-4. There is no evidence of marrow edema or enhancement. There is inflammation seen along the left lateral perianal soft tissues without johnathan collection/ abscess. . This extends directly to the phlegmon/collection beneath the tip of the coccyx. There is evidence of inflammation along the subcutaneous soft tissues of the right gluteal region, possibly reflecting cellulitis. Please correlate clinically. Shotty inguinal lymph nodes are noted bilaterally. The urinary bladder is unremarkable in appearance. The hips and sacroiliac joints are unremarkable in appearance. IMPRESSION: Small phlegmon/collection inferior to the tip of the coccyx with 2 fistula tract emanating from this, 1 extending towards the lower left gluteal cleft and a 2nd extending into the midline skin terminating in a small collection above the gluteal cleft, in the subcutaneous soft tissues. There is inflammation along the left perianal soft tissues. Extending directly to the phlegmon/collection at the inferior tip of the coccyx. No perianal abscess identified. Inflammation along the anterior and posterior aspect of the coccyx/sacrum as described consistent with soft tissue inflammation or periosteal inflammation. No evidence of marrow edema. Preliminary interpretation of this examination was reported by [employer] at 8:31 p.m. on 12/02/2016. There is concurrence of this report with the preliminary interpretation.
--- NOTE | 2016-12-03 16:32 | CP.PCM.PN ---
Subjective - Date & Time of Evaluation Date of Evaluation: 12/03/16 Time of Evaluation: 10:00 - Subjective Subjective: clinically same Objective - Vital Signs/Intake and Output Vital Signs (last 24 hours): Temp Pulse Resp BP Pulse Ox 97.2 F L 89 20 101/67 98 12/03/16 07:00 12/03/16 07:00 12/03/16 07:00 12/03/16 07:00 12/03/16 07:00 Intake and Output: 12/03/16 12/03/16 06:59 18:59 Intake Total 1430 Balance 1430 - Medications Medications: Current Medications Diphenhydramine HCl (Benadryl) 25 mg IVP Q4 PRN PRN Reason: Allergy symptoms Last Admin: 12/03/16 14:26 Dose: 25 mg Fentanyl (Duragesic) 1 patch TD Q72H [facility] Last Admin: 11/30/16 20:13 Dose: 1 patch Ferrous Sulfate (Feosol) 325 mg PO DAILY [facility] Last Admin: 12/03/16 09:32 Dose: 325 mg Hydromorphone HCl (Dilaudid) 2 mg IVP Q4H PRN PRN Reason: pain Last Admin: 12/03/16 14:26 Dose: 2 mg Vancomycin/Sodium Chloride (Vancocin) 200 mls @ 166.6 mls/hr IVPB Q12H [facility] Last Admin: 12/03/16 09:30 Dose: 166.6 mls/hr Meropenem 1 gm/ Sodium (Chloride) 100 mls @ 100 mls/hr IVPB Q8 [facility] Last Admin: 12/03/16 14:27 Dose: 100 mls/hr Ondansetron HCl (Zofran Tab) 4 mg PO Q6H PRN PRN Reason: Nausea/Vomiting Last Admin: 11/26/16 14:08 Dose: 4 mg Pantoprazole Sodium (Protonix Ec Tab) 40 mg PO DAILY [facility] Last Admin: 12/03/16 09:32 Dose: 40 mg Paroxetine HCl (Paxil) 10 mg PO DAILY [facility] Last Admin: 12/03/16 09:32 Dose: 10 mg Trazodone HCl (Desyrel) 50 mg PO HS [facility] Last Admin: 12/02/16 22:12 Dose: 50 mg - Labs Labs: 12/03/16 09:39 12/03/16 09:39 - Constitutional Appears: Well - Head Exam Head Exam: ATRAUMATIC, NORMAL INSPECTION, NORMOCEPHALIC - Eye Exam Eye Exam: EOMI, Normal appearance, PERRL Pupil Exam: NORMAL ACCOMODATION, PERRL - ENT Exam ENT Exam: Mucous Membranes Moist, Normal Exam - Neck Exam Neck Exam: Full ROM, Normal Inspection. absent: Lymphadenopathy - Respiratory Exam Respiratory Exam: Decreased Breath Sounds - Cardiovascular Exam Cardiovascular Exam: REGULAR RHYTHM, +S1, +S2 - GI/Abdominal Exam GI & Abdominal Exam: Soft, Diminished Bowel Sounds - Rectal Exam Rectal Exam: Deferred Assessment and Plan (1) Abdominal pain Status: Acute (2) Abscess Status: Acute (3) Constipation Status: Acute (4) Encounter for wound care Status: Acute (5) Intractable abdominal pain Status: Acute (6) Intractable pain Status: Acute (7) Prophylactic measure Status: Acute (8) Rectal pain Status: Acute (9) Wound of right buttock Status: Acute (10) Crohn disease Status: Acute (11) Foreign body Status: Acute (12) Rectal fistula Status: Acute - Assessment and Plan (Free Text) Assessment: pn controlled well with duragesic patch irina sme gi id gi at [facility] outpt discharge tomrrow irina sme pt adv to make appt and encouraged to do it spoke to sister few days ago and explan plan in detail
--- NOTE | 2016-12-03 17:38 | CP.PCM.PN ---
Subjective - Date & Time of Evaluation Date of Evaluation: 12/03/16 Time of Evaluation: 17:36 - Subjective Subjective: Patient complains of poor appetite. He is upset by the recent of his girlfriend. He denies having nausea, vomiting and abdominal pain. He noted two stools in the colostomy bag, one loose and one more formed. There was no bleeding. Objective - Vital Signs/Intake and Output Vital Signs (last 24 hours): Temp Pulse Resp BP Pulse Ox 98 F 93 H 20 107/72 100 12/03/16 15:35 12/03/16 16:55 12/03/16 15:35 12/03/16 15:35 12/03/16 15:35 Intake and Output: 12/03/16 12/03/16 06:59 18:59 Intake Total 1430 Balance 1430 - Medications Medications: Current Medications Diphenhydramine HCl (Benadryl) 25 mg IVP Q4 PRN PRN Reason: Allergy symptoms Last Admin: 12/03/16 14:26 Dose: 25 mg Fentanyl (Duragesic) 1 patch TD Q72H [facility] Last Admin: 11/30/16 20:13 Dose: 1 patch Ferrous Sulfate (Feosol) 325 mg PO DAILY [facility] Last Admin: 12/03/16 09:32 Dose: 325 mg Hydromorphone HCl (Dilaudid) 2 mg IVP Q4H PRN PRN Reason: pain Last Admin: 12/03/16 14:26 Dose: 2 mg Vancomycin/Sodium Chloride (Vancocin) 200 mls @ 166.6 mls/hr IVPB Q12H [facility] Last Admin: 12/03/16 09:30 Dose: 166.6 mls/hr Meropenem 1 gm/ Sodium (Chloride) 100 mls @ 100 mls/hr IVPB Q8 [facility] Last Admin: 12/03/16 14:27 Dose: 100 mls/hr Ondansetron HCl (Zofran Tab) 4 mg PO Q6H PRN PRN Reason: Nausea/Vomiting Last Admin: 11/26/16 14:08 Dose: 4 mg Pantoprazole Sodium (Protonix Ec Tab) 40 mg PO DAILY [facility] Last Admin: 12/03/16 09:32 Dose: 40 mg Paroxetine HCl (Paxil) 10 mg PO DAILY [facility] Last Admin: 12/03/16 09:32 Dose: 10 mg Trazodone HCl (Desyrel) 50 mg PO HS [facility] Last Admin: 12/02/16 22:12 Dose: 50 mg - Labs Labs: 12/03/16 09:39 12/03/16 09:39 - Constitutional Appears: No Acute Distress - Head Exam Head Exam: ATRAUMATIC, NORMOCEPHALIC - Eye Exam Eye Exam: EOMI, PERRL - Neck Exam Neck Exam: absent: Lymphadenopathy, Thyromegaly - Respiratory Exam Respiratory Exam: NORMAL BREATHING PATTERN. absent: Rales, Rhonchi, Wheezes - Cardiovascular Exam Cardiovascular Exam: REGULAR RHYTHM, +S1, +S2. absent: Gallop, Rubs, Murmur - GI/Abdominal Exam GI & Abdominal Exam: Soft, Normal Bowel Sounds. absent: Tenderness, Mass, Organomegaly - Rectal Exam Rectal Exam: Deferred - Extremities Exam Extremities Exam: absent: Calf Tenderness, Pedal Edema Assessment and Plan (1) Crohn disease Assessment & Plan: Agree with antibiotics. Consider colorectal surgery consult. Patient should follow up in clinic. Status: Acute
[2016-12-04] MEDS: DiphenhydrAMINE 50 mg/ml Inj IVP PRN ×6 (02:25→22:37)
[2016-12-04] MEDS: Meropenem 1 GM in Sodium Chloride 0.9% 100 ML IVPB SCH ×3 (05:10→21:00)
[2016-12-04 07:19] LABS: BASO # 0.1 K/uL (0.0-0.2); BASO % 0.9 % (0.0-2.0); EOS # 0.7 K/uL (0.0-0.7); EOS % 8.2 % (0.0-4.0); HEMATOCRIT 27.4 % (35.0-51.0); LYMPH # 2.6 K/uL (1.0-4.3); LYMPH % 30.4 % (20.0-40.0); MEAN CELL VOLUME 65.3 fL (80.0-94.0); MEAN CORPUSCULAR HEMOGLOBIN 19.6 pg (27.0-31.0); MEAN CORPUSCULAR HGB CONC 30.1 g/dL (33.0-37.0); MEAN PLATELET VOLUME 8.2 fL (7.2-11.7); MONO # 0.5 K/uL (0.0-0.8); MONO % 6.3 % (0.0-10.0); RED CELL DISTRIBUTION WIDTH 16.4 % (11.5-14.5); WHITE BLOOD COUNT 8.5 K/uL (4.8-10.8)
[2016-12-04 07:46] VITALS: PULSE 94
[2016-12-04 07:52] LABS: CHLORIDE 100 mmol/L (98-107); SODIUM 136 mmol/L (132-148)
[2016-12-04 07:54] LABS: BILIRUBIN,TOTAL < 0.1 mg/dL (0.2-1.3); CARBON DIOXIDE 26 mmol/L (22-30); GFR AFRICAN-AMERICAN > 60
[2016-12-04 07:55] LABS: ALKALINE PHOSPHATASE 123 U/L (38-126); ALT/SGPT 29 U/L (21-72); AST/SGOT 38 U/L (17-59); BLOOD UREA NITROGEN 6 mg/dL (9-20); GLUCOSE,RANDOM 93 mg/dL (75-110); TOTAL PROTEIN 6.7 g/dL (6.3-8.3)
[2016-12-04] MEDS: Vancomycin 1 gm/NS 200 ml 200 ML IVPB SCH ×2 (09:56→21:17)
[2016-12-04] MEDS: Pantoprazole 40 mg EC Tab PO SCH (10:27)
--- NOTE | 2016-12-04 11:07 | CP.PCM.PN ---
Subjective - Date & Time of Evaluation Date of Evaluation: 12/04/16 Time of Evaluation: 09:30 - Subjective Subjective: Medicine Note- Dr. Barrett's service Patient was seen and examined at bedside. Patient reports no acute complaints, pain is well controlled. Patient understands he will be discharged today, reinforced necessity to followup with [facility] doctor. No events overnight, per nursing. Objective - Vital Signs/Intake and Output Vital Signs (last 24 hours): Temp Pulse Resp BP Pulse Ox 97.9 F 94 H 20 103/70 96 12/04/16 07:45 12/04/16 07:45 12/04/16 07:45 12/04/16 07:45 12/04/16 07:45 Intake and Output: 12/04/16 12/04/16 06:59 18:59 Intake Total 530 Balance 530 - Medications Medications: Current Medications Diphenhydramine HCl (Benadryl) 25 mg IVP Q4 PRN PRN Reason: Allergy symptoms Last Admin: 12/04/16 10:37 Dose: 25 mg Fentanyl (Duragesic) 1 patch TD Q72H [facility] Last Admin: 12/03/16 19:38 Dose: 1 patch Ferrous Sulfate (Feosol) 325 mg PO DAILY [facility] Last Admin: 12/04/16 10:28 Dose: 325 mg Hydromorphone HCl (Dilaudid) 2 mg IVP Q4H PRN PRN Reason: pain Last Admin: 12/04/16 10:35 Dose: 2 mg Vancomycin/Sodium Chloride (Vancocin) 200 mls @ 166.6 mls/hr IVPB Q12H [facility] Last Admin: 12/04/16 09:56 Dose: 166.6 mls/hr Meropenem 1 gm/ Sodium (Chloride) 100 mls @ 100 mls/hr IVPB Q8 [facility] Last Admin: 12/04/16 05:10 Dose: 100 mls/hr Ondansetron HCl (Zofran Tab) 4 mg PO Q6H PRN PRN Reason: Nausea/Vomiting Last Admin: 11/26/16 14:08 Dose: 4 mg Pantoprazole Sodium (Protonix Ec Tab) 40 mg PO DAILY [facility] Last Admin: 12/04/16 10:27 Dose: 40 mg Paroxetine HCl (Paxil) 10 mg PO DAILY [facility] Last Admin: 12/04/16 10:41 Dose: 10 mg Trazodone HCl (Desyrel) 50 mg PO HS [facility] Last Admin: 12/03/16 21:20 Dose: 50 mg - Labs Labs: 12/04/16 07:10 12/04/16 07:10 - Constitutional Appears: Non-toxic, No Acute Distress - Head Exam Head Exam: ATRAUMATIC, NORMAL INSPECTION, NORMOCEPHALIC - Eye Exam Pupil Exam: NORMAL ACCOMODATION, PERRL - ENT Exam ENT Exam: Mucous Membranes Moist - Respiratory Exam Respiratory Exam: Clear to Ausculation Bilateral, NORMAL BREATHING PATTERN. absent: Prolonged Expiratory Phase, Rales, Rhonchi, Wheezes - Cardiovascular Exam Cardiovascular Exam: REGULAR RHYTHM, +S1, +S2 - GI/Abdominal Exam GI & Abdominal Exam: Soft, Normal Bowel Sounds. absent: Tenderness, Diminished Bowel Sounds, Hypoactive Bowel Sounds Additional comments: Colostomy bag present - Extremities Exam Extremities Exam: Normal Capillary Refill, Normal Inspection - Neurological Exam Neurological Exam: Alert, Awake, Oriented x3 - Psychiatric Exam Psychiatric exam: Normal Affect, Normal Mood - Skin Skin Exam: Dry, Intact, Normal Color, Warm Assessment and Plan - Assessment and Plan (Free Text) Assessment: 1. Abscesses WBC 8.9 on 12/02/16 Blood culture- 11/16/16- negative Wound Culture- 11/26/16- ESBL E.coli and MRSA Surgery consult - Dr. Taylor - help appreciated Continue wound care and packing change ID consult - Dr. Daniel - help appreciated Discussed case with Dr. Daniel- patient will be discharged with Vancomycin 1gm Q12h and Meropenem 1gm Q8h for 10 days. Patient will receive home infusions, patient was educated by house staff and IV company staff member. For now continue: Meropenem 1gm Q8h [facility] Vancomycin 1gm Q12h [facility] PICC in place Duragesic patch Pelvis MRI- 12/03/16- Small phlegmon/collection inferior to the tip of the coccyx with 2 fistula tract emanating from this, 1 extending towards the lower left gluteal cleft and a 2nd extending into the midline skin terminating in a small collection above the gluteal cleft, in the subcutaneous soft tissues. There is inflammation along the left perianal soft tissues. There is inflammation along the left perianal soft tissues. Extending directly to the phlegmon/collection at the inferior tip of the coccyx. (Please see full report) 2. Crohn's disease Continue ostomy care GI consult placed for Dr. Shukla. f/u GI recs 3. Intractable abdominal pain Lipase 203 IVF NS @50cc/hr recheck lipase in AM Dilaudid 2mg IVP Q4 Fentanyl patch q72H Benadryl 25mg IVP Q2 4. Chronic iron deficiency anemia Hgb stable Continue Feosol 325mg PO daily Monitor CBC 5. Depression Continue Paxil 10 mg PO daily Continue Trazodone at night. 6. Prophylactic measure Protonix 40mg PO daily SCDs All management and orders per Dr Shiloh Barrett. As per Dr. Barrett, patient will be discharged today.
[2016-12-04 16:43] VITALS: BP 110/68; TEMP 98.2; O2SAT 99
--- NOTE | 2016-12-04 18:43 | CP.PCM.PN ---
Subjective - Date & Time of Evaluation Date of Evaluation: 12/04/16 Time of Evaluation: 07:00 - Subjective Subjective: pt for discharge today clinically same Objective - Vital Signs/Intake and Output Vital Signs (last 24 hours): Temp Pulse Resp BP Pulse Ox 98.2 F 94 H 20 110/68 99 12/04/16 15:30 12/04/16 16:11 12/04/16 15:30 12/04/16 15:30 12/04/16 15:30 Intake and Output: 12/04/16 12/04/16 06:59 18:59 Intake Total 530 1000 Output Total 100 Balance 530 900 - Medications Medications: Current Medications Diphenhydramine HCl (Benadryl) 25 mg IVP Q4 PRN PRN Reason: Allergy symptoms Last Admin: 12/04/16 14:32 Dose: 25 mg Fentanyl (Duragesic) 1 patch TD Q72H [facility] Last Admin: 12/03/16 19:38 Dose: 1 patch Ferrous Sulfate (Feosol) 325 mg PO DAILY [facility] Last Admin: 12/04/16 10:28 Dose: 325 mg Hydromorphone HCl (Dilaudid) 2 mg IVP Q4H PRN PRN Reason: pain Last Admin: 12/04/16 14:33 Dose: 2 mg Vancomycin/Sodium Chloride (Vancocin) 200 mls @ 166.6 mls/hr IVPB Q12H [facility] Last Admin: 12/04/16 09:56 Dose: 166.6 mls/hr Meropenem 1 gm/ Sodium (Chloride) 100 mls @ 100 mls/hr IVPB Q8 [facility] Last Admin: 12/04/16 13:04 Dose: 100 mls/hr Ondansetron HCl (Zofran Tab) 4 mg PO Q6H PRN PRN Reason: Nausea/Vomiting Last Admin: 11/26/16 14:08 Dose: 4 mg Pantoprazole Sodium (Protonix Ec Tab) 40 mg PO DAILY [facility] Last Admin: 12/04/16 10:27 Dose: 40 mg Paroxetine HCl (Paxil) 10 mg PO DAILY [facility] Last Admin: 12/04/16 10:41 Dose: 10 mg Trazodone HCl (Desyrel) 50 mg PO HS [facility] Last Admin: 12/03/16 21:20 Dose: 50 mg - Labs Labs: 12/04/16 07:10 12/04/16 07:10 - Constitutional Appears: No Acute Distress - Head Exam Head Exam: ATRAUMATIC, NORMAL INSPECTION, NORMOCEPHALIC - Eye Exam Eye Exam: EOMI, Normal appearance, PERRL Pupil Exam: NORMAL ACCOMODATION, PERRL - ENT Exam ENT Exam: Mucous Membranes Moist, Normal Exam - Neck Exam Neck Exam: Full ROM - Respiratory Exam Respiratory Exam: Decreased Breath Sounds - Cardiovascular Exam Cardiovascular Exam: REGULAR RHYTHM, +S1, +S2 - GI/Abdominal Exam GI & Abdominal Exam: Soft, Diminished Bowel Sounds - Rectal Exam Rectal Exam: Deferred - Neurological Exam Neurological Exam: Alert, Awake, Oriented x3 Assessment and Plan (1) Crohn disease Status: Acute (2) Rectal pain Status: Acute (3) Rectal fistula Status: Acute (4) Encounter for wound care Status: Acute (5) Foreign body Status: Acute (6) Intractable abdominal pain Status: Acute (7) Abscess Status: Acute (8) Prophylactic measure Status: Acute (9) Constipation Status: Acute (10) Intractable pain Status: Acute (11) Abdominal pain Status: Acute (12) Wound of right buttock Status: Acute - Assessment and Plan (Free Text) Plan: discharge planning for today pt advised on following up with gi at [facility] pain managed well with duragesic mx as ordered f/u outpt as instructed
--- NOTE | 2016-12-04 21:57 | CP.PCM.PN ---
Subjective - Date & Time of Evaluation Date of Evaluation: 12/04/16 Time of Evaluation: 02:30 - Subjective Subjective: dictated Objective - Vital Signs/Intake and Output Vital Signs (last 24 hours): Temp Pulse Resp BP Pulse Ox 98.2 F 94 H 20 110/68 99 12/04/16 15:30 12/04/16 16:11 12/04/16 15:30 12/04/16 15:30 12/04/16 15:30 Intake and Output: 12/04/16 12/05/16 18:59 06:59 Intake Total 1000 Output Total 100 Balance 900 - Medications Medications: Current Medications Diphenhydramine HCl (Benadryl) 25 mg IVP Q4 PRN PRN Reason: Allergy symptoms Last Admin: 12/04/16 18:43 Dose: 25 mg Ferrous Sulfate (Feosol) 325 mg PO DAILY [facility] Last Admin: 12/04/16 10:28 Dose: 325 mg Hydromorphone HCl (Dilaudid) 2 mg IVP Q4H PRN PRN Reason: pain Last Admin: 12/04/16 18:46 Dose: 2 mg Vancomycin/Sodium Chloride (Vancocin) 200 mls @ 166.6 mls/hr IVPB Q12H [facility] Last Admin: 12/04/16 21:17 Dose: 166.6 mls/hr Meropenem 1 gm/ Sodium (Chloride) 100 mls @ 100 mls/hr IVPB Q8 [facility] Last Admin: 12/04/16 21:00 Dose: 100 mls/hr Ondansetron HCl (Zofran Tab) 4 mg PO Q6H PRN PRN Reason: Nausea/Vomiting Last Admin: 11/26/16 14:08 Dose: 4 mg Pantoprazole Sodium (Protonix Ec Tab) 40 mg PO DAILY [facility] Last Admin: 12/04/16 10:27 Dose: 40 mg Paroxetine HCl (Paxil) 10 mg PO DAILY [facility] Last Admin: 12/04/16 10:41 Dose: 10 mg Trazodone HCl (Desyrel) 50 mg PO HS [facility] Last Admin: 12/04/16 21:24 Dose: 50 mg - Labs Labs: 12/04/16 07:10 12/04/16 07:10
--- NOTE | 2016-12-04 22:34 | PN ---
DATE: 12/04/2016 The patient seen today. I was told he would be going home, and we are getting the infusion company t o give him antibiotics for 10 days. He will be discharged, and I saw him around 2:30. I told him he will have to do the infusions himself, and they will train him, but it is difficult to get him going . He has the PICC line. T-max was 97.9, pulse 94, blood pressure 103/70, respirations are 20, pulse ox is 96%. He remains alert, awake. NECK: Supple. LUNGS: Clear. No crackles or rales present. HEART: S1, S2 is regular. ABDOMEN: Soft, nontender, no guarding, no rigidity present. Has a colostomy bag. EXTREMITIES: Have no edema. He does have perineal abscesses His white count is holding right now. His hemoglobin remains low at 8.2, hematocrit 27.4, and platel et count is 330, creatinine is 0.6. He is on vancomycin, he gets 1 g q. 12; and he is on meropenem 1 g q. 8. his E. coli as well as MRSA, since it is sensitive to Rocephin. Also, we can probably change it to Rocephin 1 g and vancomycin, and he can make it home. Will follow and will change the medication to Rocephin as well as vancomycin, which may be easier to deal with. Santosh Daniel MD cc: [id number] TT: 12/04/2016 22:34:13 Confirmation # [id number] Dictation # [id number] [place]
[2016-12-04] MEDS ORDERED: cefTRIAXone IV 1 gm in Dextros 50 ML IVPB SCH (23:00)
[2016-12-09] MEDS ORDERED: Meropenem 1 GM in Sodium Chloride 0.9% 100 ML IVPB SCH (17:00)
[2016-12-09] MEDS ORDERED: Vancomycin 1 gm/NS 200 ml 200 ML IVPB SCH (18:00)
== END 2016-12-05 00:28 | disposition home or self-care (01) | DRG 179 ==
LOC: C.ER 22:14 → C.9E 23:16 → C.3T 11-26 00:38
PROVIDERS: ADMIT Internal Medicine Nephrology; ATTEND Internal Medicine Nephrology
PROC: GZ58ZZZ Individual Psychotherapy, Cognitive-Behavioral (ICD-10-PCS; principal; 2016-12-02)
PROC: GZ56ZZZ Individual Psychotherapy, Supportive (ICD-10-PCS; 2016-12-02)
PROC: GZHZZZZ Group Psychotherapy (ICD-10-PCS; 2016-12-02)
DX: K50.90 Crohn's disease, unspecified, without complications (principal); F33.2 Major depressive disorder, recurrent severe without psychotic features; K61.1 Rectal abscess; L02.215 Cutaneous abscess of perineum; L03.315 Cellulitis of perineum; L05.02 Pilonidal sinus with abscess; D50.9 Iron deficiency anemia, unspecified; K62.89 Other specified diseases of anus and rectum; Z93.3 Colostomy status; Z79.899 Other long term (current) drug therapy; G89.29 Other chronic pain; K59.00 Constipation, unspecified

== ENCOUNTER 2016-12-08 17:27 | Inpatient (IN) | payer MEDICAID ==
[2016-12-08 17:27] VITALS: BMI 22.2
--- NOTE | 2016-12-08 19:28 | C.PDOC ---
History Of Present Illness Patient presents to the ER complaining of abdominal pain, fever, cramping and peritoneal draining abscess. Patient denies nausea or vomiting. Time Seen by Provider: 12/08/16 19:28 Chief Complaint (Nursing): Fever History Per: Patient History/Exam Limitations: no limitations Onset/Duration Of Symptoms: Days Current Symptoms Are (Timing): Still Present Associated Symptoms: Fever. denies: Nausea, Vomiting Severity: Moderate Pain Scale Rating Of: 4 Recent travel outside of the [place]: No Additional History Per: Patient Past Medical History Reviewed: Historical Data, Nursing Documentation, Vital Signs Vital Signs: Last Vital Signs Temp 98.4 F 12/08/16 17:35 Pulse 96 H 12/08/16 17:35 Resp 20 12/08/16 17:35 BP 112/75 12/08/16 17:35 Pulse Ox 96 12/08/16 20:41 - Medical History PMH: Crohn's Disease (COLOSTOMY 2015), Depression - [facility] Procedures DRAINAGE OF BACK SUBCU/FASCIA, OPEN APPROACH (10/21/16) DRAINAGE OF BUTTOCK SKIN, EXTERNAL APPROACH, DIAGNOSTIC (09/23/16) DRAINAGE OF BUTTOCK SUBCU/FASCIA, OPEN APPROACH (10/21/16) EXCISION OF BACK SKIN, EXTERNAL APPROACH (09/23/16) EXCISION OF BACK SUBCU/FASCIA, OPEN APPROACH (10/21/16) EXCISION OF BUTTOCK SUBCU/FASCIA, OPEN APPROACH (10/21/16) EXCISION OF PERINEUM SKIN, EXTERNAL APPROACH (09/23/16) EXTRACTION OF BUTTOCK SKIN, EXTERNAL APPROACH (09/23/16) GROUP PSYCHOTHERAPY (11/25/16) INDIVIDUAL PSYCHOTHERAPY, COGNITIVE-BEHAVIORAL (11/25/16) INDIVIDUAL PSYCHOTHERAPY, SUPPORTIVE (11/25/16) Family History: States: No Known Family Hx - Social History Hx Alcohol Use: No Hx Substance Use: No - Immunization History Hx Tetanus Toxoid Vaccination: No Hx Influenza Vaccination: No Hx Pneumococcal Vaccination: No Review Of Systems Constitutional: Positive for: Fever. Negative for: Chills ENT: Negative for: Throat Pain Cardiovascular: Negative for: Chest Pain, Palpitations Respiratory: Negative for: Shortness of Breath Gastrointestinal: Positive for: Abdominal Pain, Other (Peritoneal draining abscess). Negative for: Nausea, Vomiting Genitourinary: Negative for: Dysuria Musculoskeletal: Negative for: Back Pain Skin: Negative for: Rash, Lesions, Jaundice Neurological: Negative for: Weakness Psych: Negative for: Anxiety Physical Exam - Physical Exam Appears: Well, Non-toxic Skin: Warm, Dry Eye(s): bilateral: Normal Inspection Oral Mucosa: Moist Chest: Symmetrical Cardiovascular: Rhythm Regular, No Murmur Respiratory: No Rales, No Rhonchi, No Wheezing Gastrointestinal/Abdominal: Soft, Tenderness (mildly around colostomy bag that contained stool), No Distention, No Rebound, Other (8 cm perineal wound with yellow exudate, colostomy llq) Back: Normal Inspection Extremity: Normal ROM Extremity: Bilateral: Atraumatic, Normal Color And Temperature Neurological/Psych: Oriented x3, Normal Speech, Normal Cognition Gait: Steady ED Course And Treatment - Laboratory Results Result Diagrams: 12/08/16 20:00 12/08/16 20:35 O2 Sat by Pulse Oximetry: 96 Pulse Ox Interpretation: Normal Progress Note: Blood work ordered. Benadryl IVP, dilaudid IVP, protonix IVP, IV fluids, and zofran IVP administered. Disposition Discussed With : Osvaldo Barrett Comment: accepted the pt on his service and took over the care at 9:12 PM Doctor Will See Patient In The: Hospital Counseled Patient/Family Regarding: Studies Performed, Diagnosis - Disposition Disposition: HOSPITALIZED Disposition Time: 19:28 Condition: FAIR - POA Present On Arrival: Pressure Ulcer - Clinical Impression Clinical Impression: Fever, Intractable abdominal pain, Crohn disease - Scribe Statement The provider has reviewed the documentation as recorded by the Laneyibkenna Velásquez All medical record entries made by the Laneyibkenna were at my direction and personally dictated by me. I have reviewed the chart and agree that the record accurately reflects my personal performance of the history, physical exam, medical decision making, and the department course for this patient. I have also personally directed, reviewed, and agree with the discharge instructions and disposition. Decision To Admit - Pt Status Changed To: Hospital Disposition Of: Inpatient - Admit Certification Admit to Inpatient:: After my assessment, the patient will require hospitalization for at least two midnights. This is because of the severity of symptoms shown, intensity of services needed, and/or the medical risk in this patient being treated as an outpatient. - InPatient: Physician Admission Certification:: After my assessment, the patient will require hospitalization for at least two midnights. This is because of the severity of symptoms shown, intensity of services needed, and/or the medical risk in this patient being treated as an outpatient. - . Bed Request Type: Regular Admitting Physician: Osvaldo Barrett Patient Diagnosis: Fever, Intractable abdominal pain, Crohn disease
[2016-12-08] MEDS ORDERED: HYDROmorphone 1 mg/ml ISec IVP STA ×2 (19:38→21:31)
[2016-12-08] MEDS ORDERED: DiphenhydrAMINE 50 mg/ml Inj IVP STA ×2 (19:38→21:31)
[2016-12-08] MEDS ORDERED: Sodium Chloride 0.9% 1,000 ML IV ONE (19:38)
[2016-12-08] MEDS ORDERED: DiphenhydrAMINE 50 mg/ml Inj ONE ×2 (19:59→21:38)
[2016-12-08 20:13] LABS: BASO # 0.1 K/uL (0.0-0.2); BASO % 0.6 % (0.0-2.0); EOS # 0.3 K/uL (0.0-0.7); EOS % 2.8 % (0.0-4.0); HEMATOCRIT 30.5 % (35.0-51.0); LYMPH # 2.5 K/uL (1.0-4.3); LYMPH % 22.3 % (20.0-40.0); MEAN CELL VOLUME 67.7 fL (80.0-94.0); MEAN CORPUSCULAR HEMOGLOBIN 19.7 pg (27.0-31.0); MEAN CORPUSCULAR HGB CONC 29.1 g/dL (33.0-37.0); MEAN PLATELET VOLUME 8.3 fL (7.2-11.7); MONO # 0.5 K/uL (0.0-0.8); MONO % 4.4 % (0.0-10.0); RED CELL DISTRIBUTION WIDTH 18.1 % (11.5-14.5); WHITE BLOOD COUNT 11.4 K/uL (4.8-10.8)
[2016-12-08 20:31] LABS: RBC URINE 3 /hpf (0-3); URINE BACTERIA OCC (<OCC); URINE BILIRUBIN NEGATIVE (NEGATIVE); URINE BLOOD NEGATIVE (NEGATIVE); URINE COLOR Yellow (YELLOW); URINE GLUCOSE (UA) NORMAL (Normal); URINE KETONE NEGATIVE (NEGATIVE); URINE LEUKOCYTE ESTERASE NEG Leu/uL (Negative); URINE PROTEIN NEGATIVE (NEGATIVE); URINE UROBILINOGEN NORMAL mg/dL (0.2-1.0); WBC URINE 3 /hpf (0-5)
[2016-12-08 20:46] LABS: CHLORIDE 103 mmol/L (98-107); POTASSIUM 4.1 mmol/L (3.6-5.2); SODIUM 139 mmol/L (132-148)
[2016-12-08 20:48] LABS: AST/SGOT 23 U/L (17-59); BILIRUBIN,TOTAL 0.3 mg/dL (0.2-1.3); CARBON DIOXIDE 24 mmol/L (22-30); GFR AFRICAN-AMERICAN > 60; TOTAL PROTEIN 7.8 g/dL (6.3-8.3)
[2016-12-08 20:49] LABS: ALKALINE PHOSPHATASE 125 U/L (38-126); ALT/SGPT 25 U/L (21-72); BLOOD UREA NITROGEN 8 mg/dL (9-20); CALCIUM 8.9 mg/dl (8.6-10.4); GLUCOSE,RANDOM 86 mg/dL (75-110)
[2016-12-08] MEDS ORDERED: Piperacillin/Tazobact 3.375 GM in Sodium Chloride 100 ML IVPB SCH (23:15)
[2016-12-08] MEDS ORDERED: Piperacill/Tazo 3.375gm in Dex 50 ML IVPB SCH (23:30)
[2016-12-08] MEDS ORDERED: Piperacillin/Tazobact 3.375 gm 100 ML IVPB SCH (23:30)
[2016-12-08] MEDS: DiphenhydrAMINE 50 mg/ml Inj IVP PRN (23:58)
[2016-12-09] MEDS: Vancomycin 750mg/D5W 150 ml 150 ML IV SCH ×2 (00:30→12:36)
[2016-12-09] MEDS: DiphenhydrAMINE 50 mg/ml Inj IVP PRN ×5 (04:00→20:38)
--- NOTE | 2016-12-09 08:17 | CP.PCM.CON ---
<Ken Magallanesille - Last Filed: 12/13/16 15:04> History of Present Illness - History of Present Illness History of Present Illness: GENERAL SURGERY CONSULT NOTE FOR DR. TAYLOR 21 y/o male with PMHx of Crohns s/p colon resection with loop colostomy who is well known to the surgical service who presented with abdominal pain and vomiting. He was discharged from [facility] on 12/04/16. He saw Dr. Alex Hays (his GI physician) and was given Mesalamine and Humira shot per the pt. He states that his GI doctor is moving and he needs to find a new GI doctor. He has a PICC line and has been getting Vancomycin and Zosyn as an outpatient. He returned to the ED because 3 days ago, he began having fever, chills, and vomiting. He states that his temperature was around 100 to 101. He was vomiting "every time I eat". He has been having diarrhea into the ostomy. He states that he has sharp abdominal pain that is worse before he has a bowel movement. He has oxycontin at home and is taking it about every 7-8 hours. Overall, he states that he feels much better than when he was last admitted and says his pain is much better and his previous wounds are significantly improved. He continues to use Medi[employer] on them and states that the only one that hurts is the one in the gluteal area. PMHx: Crohn's PSH: partial colectomy 02/2015, loop colostomy 04/2016, multiple I&Ds perianal abscesses including wound vac placement Allerg: Morphine Review of Systems - Review of Systems All systems: reviewed and no additional remarkable complaints except (as per HPI ) Past Patient History - Infectious Disease Hx of Infectious Diseases: None - Past Medical History & Family History Past Medical History?: Yes - Past Social History Smoking Status: Never Smoked - CARDIAC Hx Cardiac Disorders: No - PULMONARY Hx Respiratory Disorders: No - NEUROLOGICAL Hx Neurological Disorder: No - HEENT Hx HEENT Problems: No - RENAL Hx Chronic Kidney Disease: No - ENDOCRINE/METABOLIC Hx Endocrine Disorders: No - HEMATOLOGICAL/ONCOLOGICAL Hx Blood Disorders: No - INTEGUMENTARY Hx Dermatological Problems: Yes Other/Comment: Perineal wound. Rectal abcess - MUSCULOSKELETAL/RHEUMATOLOGICAL Hx Musculoskeletal Disorders: No Hx Falls: No - GASTROINTESTINAL Hx Gastrointestinal Disorders: Yes Hx Crohn's Disease: Yes (COLOSTOMY 2016) - GENITOURINARY/GYNECOLOGICAL Hx Genitourinary Disorders: No - PSYCHIATRIC Hx Psychophysiologic Disorder: Yes Hx Depression: Yes Hx Substance Use: No - SURGICAL HISTORY Hx Surgeries: Yes (SEE COMMENT) Other/Comment: LOOP COLOSTOMY. Perineal wound. Right upper arm PICC line. COLON RESECTION - ANESTHESIA Hx Anesthesia: Yes Hx Anesthesia Reactions: No Hx Malignant Hyperthermia: No Meds Allergies/Adverse Reactions: Allergies Allergy/AdvReac Type Severity Reaction Status Date / Time morphine Allergy ITCHING Verified 11/25/16 22:28 - Medications Medications: Current Medications Diphenhydramine HCl (Benadryl) 25 mg IVP Q4 PRN PRN Reason: Itching / Pruritus Last Admin: 12/09/16 08:09 Dose: 25 mg Hydromorphone HCl (Dilaudid) 2 mg IVP Q4 PRN PRN Reason: pain Last Admin: 12/09/16 08:08 Dose: 2 mg Vancomycin HCl (Vancocin 750mg/D5w 150 Ml) 150 mls @ 133 mls/hr IV Q12H [facility] Stop: 12/14/16 00:01 Last Admin: 12/09/16 00:30 Dose: 133 mls/hr Piperacillin Sod/Tazobactam (Sod 3.375 gm/ Sodium Chloride) 100 mls @ 200 mls/ hr IVPB Q8H [facility] Physical Exam - Constitutional Appears: Well, Non-toxic, No Acute Distress - Head Exam Head Exam: NORMAL INSPECTION - Eye Exam Eye Exam: EOMI, Normal appearance - Respiratory Exam Respiratory Exam: NORMAL BREATHING PATTERN. absent: Respiratory Distress - Cardiovascular Exam Cardiovascular Exam: +S1, +S2 - GI/Abdominal Exam GI & Abdominal Exam: Soft. absent: Distended, Firm, Guarding, Rebound, Rigid, Tenderness Additional comments: LLQ Ostomy with large amount of soft stool - Neurological Exam Neurological exam: Alert, CN II-XII Intact, Oriented x3 - Psychiatric Exam Psychiatric exam: Normal Affect, Normal Mood - Skin Skin Exam: Dry, Normal Color, Warm Additional comments: Left axilla with small wound (site of previous I&D) Buttock area with wound, no drainage able to be expressed, tender Results - Vital Signs Recent Vital Signs: Last Vital Signs Temp 97.4 F L 12/09/16 00:00 Pulse 94 H 12/09/16 00:00 Resp 20 12/09/16 00:00 BP 112/76 12/09/16 00:00 Pulse Ox 100 12/09/16 00:00 - Labs Result Diagrams: 12/12/16 08:18 12/12/16 08:18 Assessment & Plan - Assessment and Plan (Free Text) Assessment: 21 y/o male with PMHx of Crohns s/p colon resection with loop colostomy and multiple previous I&Ds who presented with abdominal pain and vomiting. - Afebrile, VSS - WBC 11.4 - Hemoglobin 8.9 (stable from pts previous admission) - Wound care - Patient nontender and having regular output from ostomy - Patient is not ready for colostomy reversal yet due to Crohns disease - Discussed plan with Dr. Claudia Magallanes PGY-2 <Temo Taylor - Last Filed: 12/14/16 10:04> Meds - Medications Medications: Current Medications Diphenhydramine HCl (Benadryl) 25 mg IVP Q4 PRN PRN Reason: Itching / Pruritus Last Admin: 12/14/16 08:30 Dose: 25 mg Hydromorphone HCl (Dilaudid) 2 mg IVP Q4H PRN PRN Reason: Pain, moderate (4-7) Last Admin: 12/14/16 08:30 Dose: 2 mg Piperacillin Sod/Tazobactam (Sod 3.375 gm/ Sodium Chloride) 100 mls @ 200 mls/ hr IVPB Q8H [facility] Last Admin: 12/14/16 06:31 Dose: 200 mls/hr Pantoprazole Sodium (Protonix Inj) 40 mg IVP DAILY [facility] Last Admin: 12/13/16 10:38 Dose: 40 mg Results - Vital Signs Recent Vital Signs: Last Vital Signs Temp 98.7 F 12/14/16 08:00 Pulse 69 12/14/16 08:00 Resp 20 12/14/16 08:00 BP 110/69 12/14/16 08:00 Pulse Ox 97 12/14/16 08:00 - Labs Result Diagrams: 12/12/16 08:18 12/12/16 08:18 Attending/Attestation - Attestation I have personally seen and examined this patient.: Yes I have fully participated in the care of the patient.: Yes I have reviewed all pertinent clinical information: Yes Notes (Text): 12/14/16 10:03 Pt was seen and examined at bedside on 12/10/16 Agree with above note and assessment. Continue with current mx No need for surgical intervention at present F.U as out pt. Plan d.w pt and Primary team.
[2016-12-09] MEDS: Piperacillin/Tazobact 3.375 GM in Sodium Chloride 0.9% 100 ML IVPB SCH ×3 (08:27→23:43)
--- NOTE | 2016-12-09 10:54 | CP.PCM.HP ---
History of Present Illness - History of Present Illness History of Present Illness: 21-year-old male with past medical history of Crohn's disease, S/P colon resection with loop colostomy who is well-known to the surgical service who presented to the ER with abdominal pain and vomiting. Patient was discharged from [facility] on 12/04/16. He was given mesalamine and Humira shot per the patient. Patient states that his GI doctor is moving and he needs to find a new GI doctor. He has a PICC line and has been getting with vancomycin and Zosyn as an output. He returned to the ED because 3 days back, he began having fever, chills and vomiting. Patient still states that his temperature was around 100-101. Patient states he has sharp abdominal pain that is worse before he has a bowel movement. Patient has oxycodone at home and is taking it about every 7-8 hours. Patient feels much better than when he was last admitted and states his pain is much better and his previous wound are significantly improved. Present on Admission - Present on Admission Any Indicators Present on Admission: No Past Patient History - Infectious Disease Hx of Infectious Diseases: None - Past Medical History & Family History Past Medical History?: Yes - Past Social History Smoking Status: Never Smoked - CARDIAC Hx Cardiac Disorders: No - PULMONARY Hx Respiratory Disorders: No - NEUROLOGICAL Hx Neurological Disorder: No - HEENT Hx HEENT Problems: No - RENAL Hx Chronic Kidney Disease: No - ENDOCRINE/METABOLIC Hx Endocrine Disorders: No - HEMATOLOGICAL/ONCOLOGICAL Hx Blood Disorders: No - INTEGUMENTARY Hx Dermatological Problems: Yes Other/Comment: Perineal wound. Rectal abcess - MUSCULOSKELETAL/RHEUMATOLOGICAL Hx Musculoskeletal Disorders: No Hx Falls: No - GASTROINTESTINAL Hx Gastrointestinal Disorders: Yes Hx Crohn's Disease: Yes (COLOSTOMY 2016) - GENITOURINARY/GYNECOLOGICAL Hx Genitourinary Disorders: No - PSYCHIATRIC Hx Psychophysiologic Disorder: Yes Hx Depression: Yes Hx Substance Use: No - SURGICAL HISTORY Hx Surgeries: Yes (SEE COMMENT) Other/Comment: LOOP COLOSTOMY. Perineal wound. Right upper arm PICC line. COLON RESECTION - ANESTHESIA Hx Anesthesia: Yes Hx Anesthesia Reactions: No Hx Malignant Hyperthermia: No Meds Allergies/Adverse Reactions: Allergies Allergy/AdvReac Type Severity Reaction Status Date / Time morphine Allergy Severe ITCHING Verified 03/22/17 18:32 Physical Exam - Constitutional Appears: Well - Head Exam Head Exam: ATRAUMATIC, NORMAL INSPECTION, NORMOCEPHALIC - Eye Exam Eye Exam: EOMI, Normal appearance, PERRL Pupil Exam: NORMAL ACCOMODATION, PERRL - ENT Exam ENT Exam: Mucous Membranes Moist, Normal Exam - Neck Exam Neck exam: Positive for: Normal Inspection - Respiratory Exam Respiratory Exam: Decreased Breath Sounds - Cardiovascular Exam Cardiovascular Exam: REGULAR RHYTHM, +S1, +S2 - GI/Abdominal Exam GI & Abdominal Exam: Diminished Bowel Sounds, Soft - Rectal Exam Rectal Exam: Deferred Results - Vital Signs Recent Vital Signs: Last Vital Signs Temp 97.2 F L 12/09/16 08:00 Pulse 91 H 12/09/16 08:00 Resp 20 12/09/16 08:00 BP 108/71 12/09/16 08:00 Pulse Ox 100 12/09/16 08:00 - Labs Result Diagrams: 12/12/16 08:18 12/12/16 08:18 Assessment & Plan (1) Abdominal pain Status: Acute (2) Abscess Status: Acute (3) Constipation Status: Acute (4) Crohn disease Status: Acute (5) DVT (deep venous thrombosis) Status: Acute (6) Diarrhea Status: Acute (7) Diarrhea Status: Acute (8) Encounter for wound care Status: Acute (9) Fever Status: Acute (10) Foreign body Status: Acute (11) Intractable abdominal pain Status: Acute (12) Intractable pain Status: Acute (13) Prophylactic measure Status: Acute (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
--- NOTE | 2016-12-09 22:10 | CP.PCM.CON ---
History of Present Illness - History of Present Illness History of Present Illness: dictated Past Patient History - Infectious Disease Hx of Infectious Diseases: None - Past Medical History & Family History Past Medical History?: Yes - Past Social History Smoking Status: Never Smoked - CARDIAC Hx Cardiac Disorders: No - PULMONARY Hx Respiratory Disorders: No - NEUROLOGICAL Hx Neurological Disorder: No - HEENT Hx HEENT Problems: No - RENAL Hx Chronic Kidney Disease: No - ENDOCRINE/METABOLIC Hx Endocrine Disorders: No - HEMATOLOGICAL/ONCOLOGICAL Hx Blood Disorders: No - INTEGUMENTARY Hx Dermatological Problems: Yes Other/Comment: Perineal wound. Rectal abcess - MUSCULOSKELETAL/RHEUMATOLOGICAL Hx Musculoskeletal Disorders: No Hx Falls: No - GASTROINTESTINAL Hx Gastrointestinal Disorders: Yes Hx Crohn's Disease: Yes (COLOSTOMY 2015) - GENITOURINARY/GYNECOLOGICAL Hx Genitourinary Disorders: No - PSYCHIATRIC Hx Psychophysiologic Disorder: Yes Hx Depression: Yes Hx Substance Use: No - SURGICAL HISTORY Hx Surgeries: Yes (SEE COMMENT) Other/Comment: LOOP COLOSTOMY. Perineal wound. Right upper arm PICC line. COLON RESECTION - ANESTHESIA Hx Anesthesia: Yes Hx Anesthesia Reactions: No Hx Malignant Hyperthermia: No Meds Allergies/Adverse Reactions: Allergies Allergy/AdvReac Type Severity Reaction Status Date / Time morphine Allergy ITCHING Verified 11/25/16 22:28 - Medications Medications: Current Medications Diphenhydramine HCl (Benadryl) 25 mg IVP Q4 PRN PRN Reason: Itching / Pruritus Last Admin: 12/09/16 20:38 Dose: 25 mg Hydromorphone HCl (Dilaudid) 2 mg IVP Q4 PRN PRN Reason: pain Last Admin: 12/09/16 20:38 Dose: 2 mg Vancomycin HCl (Vancocin 750mg/D5w 150 Ml) 150 mls @ 133 mls/hr IV Q12H [facility] Stop: 12/14/16 00:01 Last Admin: 12/09/16 12:36 Dose: 133 mls/hr Piperacillin Sod/Tazobactam (Sod 3.375 gm/ Sodium Chloride) 100 mls @ 200 mls/ hr IVPB Q8H [facility] Last Admin: 12/09/16 15:56 Dose: 200 mls/hr Pantoprazole Sodium (Protonix Inj) 40 mg IVP DAILY [facility] Last Admin: 12/09/16 11:15 Dose: 40 mg Results - Vital Signs Recent Vital Signs: Last Vital Signs Temp 98.6 F 12/09/16 16:00 Pulse 92 H 12/09/16 16:00 Resp 20 12/09/16 16:00 BP 107/69 12/09/16 16:00 Pulse Ox 100 12/09/16 16:00 - Labs Result Diagrams: 12/08/16 20:00 12/08/16 20:35
[2016-12-10] MEDS: Vancomycin 750mg/D5W 150 ml 150 ML IV SCH ×2 (00:15→13:07)
[2016-12-10] MEDS: DiphenhydrAMINE 50 mg/ml Inj IVP PRN ×6 (00:40→21:30)
--- NOTE | 2016-12-10 08:16 | CON ---
DATE: 12/09/2016 REQUESTING PHYSICIAN: Dr. Eric Barrett. HISTORY OF PRESENT ILLNESS: This patient is a 21-year-old male. He has history of Crohn's disease a nd he had a lot of skin infections, multiple abscesses and possible fistula and had I and Ds done and has been on antibiotics multiple times and this time he was sent home on IV antibiotics with a PICC line insertion as he had multiple stages of healing and nonhealing abscesses and he returns now. He says that he began to have fever, chills and vomiting. He says his temperature always remained about 100-101. He was vomiting every time he ate and he has been having diarrhea and he says there is liq uid in the stool; however, stool is light brown color and he also has been having abdominal pains, wh ich is worse as he has a bowel movement. He has been on OxyContin at home and he otherwise feels bet ter and he has been applying Medihoney to the wounds and he says the pain is much better and the woun ds have been healing, but he comes with fevers now. PAST MEDICAL HISTORY: Significant for Crohn's and multiple abscesses and I and D's in perineal area. He does have a history of partial colectomy in 02/2015 and he has a colostomy, which was placed in 04/2016. HE IS ALLERGIC TO MORPHINE. He was on vancomycin and meropenem when he was sent home. SOCIAL HISTORY: Negative for smoking or drinking. He has no drug abuse, but he has been on a lot of pain medications. He did have perineal wounds and rectal abscesses and he has a colostomy. ALLERGIES: He is allergic to Morphine. MEDICATIONS: When he came in, was Benadryl. He was given in the ER Dilaudid, vancomycin and Zosyn a nd he has been afebrile. REVIEW OF SYSTEMS: When I went to see him, he tells me he wants his colostomy to be reversed if poss ible and he wants to go to [place] to see his grandmother who is very old and he has not seen for sever al years, but he wants to get a colostomy changed back, which I do not know if the GI and the surgeon has to decide about that. PHYSICAL EXAMINATION: VITAL SIGNS: T-max is 98.6, pulse 92, blood pressure 107/69, respirations are 20. HEENT: Head is atraumatic, normocephalic. Pupils are reacting to light. Tongue is moist. NECK: Supple. LUNGS: Clear. No crackles or rales present. HEART: S1, S2 is regular. No murmurs. ABDOMEN: Soft. He has a colostomy bag on the left lower quadrant, which has stool in it and functio kalpesh well. The right arm, there is a PICC line. EXTREMITIES: No edema, clubbing or cyanosis. He allowed me to see in the posterior side on the back between his buttocks. There is a skin break between that and there is no drainage and wound seems t o be healing. [facility] that would be fine. He says he has a small abscess in the front, which he did not show me. LABORATORY DATA: His white count is 11.4 from yesterday, hemoglobin 8.9, hematocrit 30.5, platelet c ount is 414. He remains anemic. BUN is 17, creatinine 0.6, he has been chronically ill. UA shows W BC 3, RBC 3. PLAN: He says he was on methenamine and Humira, so that should be started. I think that his Crohn's needs to be under control to prevent further formation of abscesses and fistulas and if Dr. Raymond tt evaluates tomorrow and he decides that we can pull off the antibiotics as this area looks to be he aling better, then we will do so. There is a blood culture, which was sent. We are pending that and at this time, he is on vancomycin and Zosyn, which I will continue and would pull out soon as, bebe garcia, he is looking better. His fevers at home and vomiting, I am not sure was it related to the me dicine or to the PICC line or to the abscesses. So, at this time, we will continue those and reevalu ate him again. Santosh Daniel MD cc: [id number] TT: 12/09/2016 22:55:46 Confirmation # [id number] Dictation # [id number] md 12/10/2016 07:14:32
[2016-12-10] MEDS: Piperacillin/Tazobact 3.375 GM in Sodium Chloride 0.9% 100 ML IVPB SCH ×3 (08:38→23:40)
[2016-12-10 10:40] LABS: BASO # 0.1 K/uL (0.0-0.2); BASO % 0.8 % (0.0-2.0); EOS # 0.7 K/uL (0.0-0.7); EOS % 7.5 % (0.0-4.0); HEMATOCRIT 29.3 % (35.0-51.0); LYMPH # 3.4 K/uL (1.0-4.3); LYMPH % 33.8 % (20.0-40.0); MEAN CELL VOLUME 64.8 fL (80.0-94.0); MEAN CORPUSCULAR HEMOGLOBIN 19.6 pg (27.0-31.0); MEAN CORPUSCULAR HGB CONC 30.3 g/dL (33.0-37.0); MONO # 0.7 K/uL (0.0-0.8); MONO % 6.6 % (0.0-10.0); RED CELL DISTRIBUTION WIDTH 18.2 % (11.5-14.5); WHITE BLOOD COUNT 9.9 K/uL (4.8-10.8)
[2016-12-10 10:49] LABS: CHLORIDE 99 mmol/L (98-107); POTASSIUM 4.1 mmol/L (3.6-5.2); SODIUM 138 mmol/L (132-148)
[2016-12-10 10:52] LABS: BLOOD UREA NITROGEN 10 mg/dL (9-20); CALCIUM 9.1 mg/dl (8.6-10.4); CARBON DIOXIDE 28 mmol/L (22-30); GFR AFRICAN-AMERICAN > 60; GLUCOSE,RANDOM 83 mg/dL (75-110)
--- NOTE | 2016-12-10 18:43 | CP.PCM.PN ---
Subjective - Date & Time of Evaluation Date of Evaluation: 12/10/16 Time of Evaluation: 09:00 - Subjective Subjective: clinically same Objective - Vital Signs/Intake and Output Vital Signs (last 24 hours): Temp Pulse Resp BP Pulse Ox 98.3 F 102 H 20 106/73 100 12/10/16 15:00 12/10/16 15:00 12/10/16 15:00 12/10/16 15:00 12/10/16 15:00 Intake and Output: 12/10/16 12/10/16 06:59 18:59 Intake Total 800 Output Total 500 Balance 300 - Medications Medications: Current Medications Diphenhydramine HCl (Benadryl) 25 mg IVP Q4 PRN PRN Reason: Itching / Pruritus Last Admin: 12/10/16 17:26 Dose: 25 mg Hydromorphone HCl (Dilaudid) 2 mg IVP Q4 PRN PRN Reason: pain Last Admin: 12/10/16 17:26 Dose: 2 mg Vancomycin HCl (Vancocin 750mg/D5w 150 Ml) 150 mls @ 133 mls/hr IV Q12H [facility] Stop: 12/14/16 00:01 Last Admin: 12/10/16 13:07 Dose: 133 mls/hr Piperacillin Sod/Tazobactam (Sod 3.375 gm/ Sodium Chloride) 100 mls @ 200 mls/ hr IVPB Q8H [facility] Last Admin: 12/10/16 14:35 Dose: 200 mls/hr Pantoprazole Sodium (Protonix Inj) 40 mg IVP DAILY [facility] Last Admin: 12/10/16 09:39 Dose: 40 mg - Labs Labs: 12/10/16 10:28 12/10/16 10:28 PT 11.6 SECONDS (9.7-12.2) 12/08/16 20:35 INR 1.0 12/08/16 20:35 APTT 30 SECONDS (21-34) 12/08/16 20:35 - Constitutional Appears: Well - Head Exam Head Exam: ATRAUMATIC, NORMAL INSPECTION, NORMOCEPHALIC - Eye Exam Eye Exam: EOMI, Normal appearance, PERRL Pupil Exam: NORMAL ACCOMODATION, PERRL - ENT Exam ENT Exam: Mucous Membranes Moist, Normal Exam - Neck Exam Neck Exam: Full ROM, Normal Inspection. absent: Lymphadenopathy - Respiratory Exam Respiratory Exam: Decreased Breath Sounds - Cardiovascular Exam Cardiovascular Exam: REGULAR RHYTHM, +S1, +S2 - GI/Abdominal Exam GI & Abdominal Exam: Soft, Diminished Bowel Sounds - Rectal Exam Rectal Exam: Deferred Assessment and Plan - Assessment and Plan (Free Text) Plan: consult ID consult surgeon Diphenhydramine Hydromorphone Vancomycin Piperacillin Sod/Tazobactam Pantoprazole
--- NOTE | 2016-12-10 21:35 | CP.PCM.PN ---
Subjective - Date & Time of Evaluation Date of Evaluation: 12/10/16 Time of Evaluation: 02:00 - Subjective Subjective: dictated Objective - Vital Signs/Intake and Output Vital Signs (last 24 hours): Temp Pulse Resp BP Pulse Ox 98.3 F 102 H 20 106/73 100 12/10/16 15:00 12/10/16 15:00 12/10/16 15:00 12/10/16 15:00 12/10/16 15:00 - Medications Medications: Current Medications Diphenhydramine HCl (Benadryl) 25 mg IVP Q4 PRN PRN Reason: Itching / Pruritus Last Admin: 12/10/16 21:30 Dose: 25 mg Hydromorphone HCl (Dilaudid) 2 mg IVP Q4 PRN PRN Reason: pain Last Admin: 12/10/16 21:30 Dose: 2 mg Vancomycin HCl (Vancocin 750mg/D5w 150 Ml) 150 mls @ 133 mls/hr IV Q12H [facility] Stop: 12/14/16 00:01 Last Admin: 12/10/16 13:07 Dose: 133 mls/hr Piperacillin Sod/Tazobactam (Sod 3.375 gm/ Sodium Chloride) 100 mls @ 200 mls/ hr IVPB Q8H [facility] Last Admin: 12/10/16 14:35 Dose: 200 mls/hr Pantoprazole Sodium (Protonix Inj) 40 mg IVP DAILY [facility] Last Admin: 12/10/16 09:39 Dose: 40 mg - Labs Labs: 12/10/16 10:28 12/10/16 10:28 PT 11.6 SECONDS (9.7-12.2) 12/08/16 20:35 INR 1.0 12/08/16 20:35 APTT 30 SECONDS (21-34) 12/08/16 20:35
[2016-12-11] MEDS: Vancomycin 750mg/D5W 150 ml 150 ML IV SCH ×2 (00:45→12:14)
[2016-12-11] MEDS: DiphenhydrAMINE 50 mg/ml Inj IVP PRN ×6 (01:30→22:47)
[2016-12-11] MEDS: Piperacillin/Tazobact 3.375 GM in Sodium Chloride 0.9% 100 ML IVPB SCH ×3 (06:30→22:46)
--- NOTE | 2016-12-11 07:37 | PN ---
DATE: 12/10/2016 SUBJECTIVE: He was seen by Dr. Taylor and he was told that Dr. Taylor would speak to me; oth erwise, the patient is feeling slightly better. He denies any nausea or vomiting. His colostomy bag is working. PHYSICAL EXAMINATION VITAL SIGNS: The patient is afebrile. Temperature is 98.3, pulse 89, blood pressure 101/66, respira tions 77. LUNGS: Clear. HEART: S1, S2 regular. ABDOMEN: Soft and has a colostomy. The patient has a perineal wound with a rectal abscess and in the right upper arm, he has a PICC line . The back area is healing and in the front I will have to see what Dr. Taylor has to say; other perez, I am waiting for the blood culture reports and if they are negative for 48 hours, I plan to dis continue antibiotics and he should continue his medications for Crohn disease and use local treatment for the wound, which may be helpful. Will discuss this plan with Dr. Barrett. Santosh Daniel MD cc: [id number] TT: 12/10/2016 22:39:53 Confirmation # [id number] Dictation # [id number] adriana
--- NOTE | 2016-12-11 16:58 | CP.PCM.PN ---
Subjective - Date & Time of Evaluation Date of Evaluation: 12/11/16 Time of Evaluation: 09:00 - Subjective Subjective: clinically same Objective - Vital Signs/Intake and Output Vital Signs (last 24 hours): Temp Pulse Resp BP Pulse Ox 98.3 F 89 20 101/68 99 12/11/16 07:36 12/11/16 07:36 12/11/16 07:36 12/11/16 07:36 12/11/16 07:36 Intake and Output: 12/11/16 12/11/16 06:59 18:59 Intake Total 1130 730 Output Total 700 Balance 1130 30 - Medications Medications: Current Medications Diphenhydramine HCl (Benadryl) 25 mg IVP Q4 PRN PRN Reason: Itching / Pruritus Last Admin: 12/11/16 14:34 Dose: 25 mg Hydromorphone HCl (Dilaudid) 2 mg IVP Q4 PRN PRN Reason: pain Last Admin: 12/11/16 14:32 Dose: 2 mg Vancomycin HCl (Vancocin 750mg/D5w 150 Ml) 150 mls @ 133 mls/hr IV Q12H [facility] Stop: 12/14/16 00:01 Last Admin: 12/11/16 12:14 Dose: 133 mls/hr Piperacillin Sod/Tazobactam (Sod 3.375 gm/ Sodium Chloride) 100 mls @ 200 mls/ hr IVPB Q8H [facility] Last Admin: 12/11/16 16:23 Dose: 200 mls/hr Pantoprazole Sodium (Protonix Inj) 40 mg IVP DAILY [facility] Last Admin: 12/11/16 09:51 Dose: 40 mg - Labs Labs: 12/10/16 10:28 12/10/16 10:28 PT 11.6 SECONDS (9.7-12.2) 12/08/16 20:35 INR 1.0 12/08/16 20:35 APTT 30 SECONDS (21-34) 12/08/16 20:35 - Constitutional Appears: Well - Head Exam Head Exam: ATRAUMATIC, NORMAL INSPECTION, NORMOCEPHALIC - Eye Exam Eye Exam: EOMI, Normal appearance, PERRL Pupil Exam: NORMAL ACCOMODATION, PERRL - Neck Exam Neck Exam: Full ROM, Normal Inspection. absent: Lymphadenopathy - Respiratory Exam Respiratory Exam: Decreased Breath Sounds - Cardiovascular Exam Cardiovascular Exam: REGULAR RHYTHM, +S1, +S2 - GI/Abdominal Exam GI & Abdominal Exam: Soft, Diminished Bowel Sounds - Rectal Exam Rectal Exam: Deferred Assessment and Plan - Assessment and Plan (Free Text) Plan: DR. jil arevalo. Diphenhydramine irina. Hydromorphone Vancomycin Piperacillin Sod/Tazobactam Pantoprazole wound care
--- NOTE | 2016-12-11 18:19 | CP.PCM.PN ---
Subjective - Date & Time of Evaluation Date of Evaluation: 12/11/16 Time of Evaluation: 03:00 - Subjective Subjective: dictated Objective - Vital Signs/Intake and Output Vital Signs (last 24 hours): Temp Pulse Resp BP Pulse Ox 98.0 F 104 H 20 105/71 98 12/11/16 15:00 12/11/16 15:00 12/11/16 15:00 12/11/16 15:00 12/11/16 15:00 Intake and Output: 12/11/16 12/11/16 06:59 18:59 Intake Total 1130 730 Output Total 700 Balance 1130 30 - Medications Medications: Current Medications Diphenhydramine HCl (Benadryl) 25 mg IVP Q4 PRN PRN Reason: Itching / Pruritus Last Admin: 12/11/16 14:34 Dose: 25 mg Hydromorphone HCl (Dilaudid) 2 mg IVP Q4 PRN PRN Reason: pain Last Admin: 12/11/16 14:32 Dose: 2 mg Vancomycin HCl (Vancocin 750mg/D5w 150 Ml) 150 mls @ 133 mls/hr IV Q12H [facility] Stop: 12/14/16 00:01 Last Admin: 12/11/16 12:14 Dose: 133 mls/hr Piperacillin Sod/Tazobactam (Sod 3.375 gm/ Sodium Chloride) 100 mls @ 200 mls/ hr IVPB Q8H [facility] Last Admin: 12/11/16 16:23 Dose: 200 mls/hr Pantoprazole Sodium (Protonix Inj) 40 mg IVP DAILY [facility] Last Admin: 12/11/16 09:51 Dose: 40 mg - Labs Labs: 12/10/16 10:28 12/10/16 10:28 PT 11.6 SECONDS (9.7-12.2) 12/08/16 20:35 INR 1.0 12/08/16 20:35 APTT 30 SECONDS (21-34) 12/08/16 20:35
--- NOTE | 2016-12-11 18:47 | PN ---
DATE: 12/11/2016 The patient says he is feeling better; however, he had many questions and he says they need to be ans wered by the surgeon and at this time, he remains with a PICC line. PHYSICAL EXAMINATION: VITAL SIGNS: T-max is 98, blood pressure 105/71, respirations are 20, pulse is 104. HEENT: Head is atraumatic, normocephalic. NECK: Supple. LUNGS: Clear. HEART: S1, S2 is regular. ABDOMEN: Soft. PICC line is unremarkable. He says he has continuous pains and has colostomy bag. EXTREMITIES: Have no edema, clubbing or cyanosis. He came here with perianal abscesses. He still has pain and soreness, however, there are no wound cu ltures this time as wounds are healing. He has been on IV antibiotics at home and he is on pain medi cations. He is getting Zosyn and vancomycin and previously, he has had other antibiotics. I think h e is healing and it is better to keep him off antibiotics before we will end up with Clostridium diff icile colitis and I would like to send him home tomorrow if possible with discontinuing the periphera lly inserted central catheter line if he is stable and would repeat his labs tomorrow morning. We wi ll discuss the plan with the surgeon as well as with Dr. Eric Barrett. Santosh Daniel MD cc: [id number] TT: 12/11/2016 18:47:00 Confirmation # [id number] Dictation # [id number] en
[2016-12-12] MEDS: Vancomycin 750mg/D5W 150 ml 150 ML IV SCH ×2 (00:03→13:00)
[2016-12-12] MEDS: DiphenhydrAMINE 50 mg/ml Inj IVP PRN ×5 (02:53→19:58)
[2016-12-12 08:38] LABS: BASO # 0.1 K/uL (0.0-0.2); BASO % 1.1 % (0.0-2.0); EOS # 0.8 K/uL (0.0-0.7); EOS % 8.3 % (0.0-4.0); HEMATOCRIT 27.6 % (35.0-51.0); LYMPH # 3.6 K/uL (1.0-4.3); LYMPH % 36.1 % (20.0-40.0); MEAN CELL VOLUME 65.3 fL (80.0-94.0); MEAN CORPUSCULAR HEMOGLOBIN 19.8 pg (27.0-31.0); MEAN CORPUSCULAR HGB CONC 30.3 g/dL (33.0-37.0); MEAN PLATELET VOLUME 8.2 fL (7.2-11.7); MONO # 0.9 K/uL (0.0-0.8); MONO % 8.8 % (0.0-10.0); RED CELL DISTRIBUTION WIDTH 18.2 % (11.5-14.5)
[2016-12-12] MEDS: Piperacillin/Tazobact 3.375 GM in Sodium Chloride 0.9% 100 ML IVPB SCH ×2 (09:00→16:48)
[2016-12-12 09:19] LABS: CHLORIDE 99 mmol/L (98-107)
[2016-12-12 09:20] LABS: POTASSIUM 4.4 mmol/L (3.6-5.2); SODIUM 137 mmol/L (132-148)
[2016-12-12 09:22] LABS: ALB/GLOB RATIO 1.1 (1.0-2.1); AST/SGOT 55 U/L (17-59); BILIRUBIN,TOTAL 0.2 mg/dL (0.2-1.3); CARBON DIOXIDE 26 mmol/L (22-30); GFR AFRICAN-AMERICAN > 60; TOTAL PROTEIN 7.1 g/dL (6.3-8.3)
[2016-12-12 09:23] LABS: ALKALINE PHOSPHATASE 95 U/L (38-126); ALT/SGPT 32 U/L (21-72); BLOOD UREA NITROGEN 17 mg/dL (9-20); CALCIUM 8.3 mg/dl (8.6-10.4); GLUCOSE,RANDOM 102 mg/dL (75-110)
--- NOTE | 2016-12-12 14:14 | CP.PCM.PN ---
Subjective - Date & Time of Evaluation Date of Evaluation: 12/12/16 Time of Evaluation: 09:00 - Subjective Subjective: clinically same Objective - Vital Signs/Intake and Output Vital Signs (last 24 hours): Temp Pulse Resp BP Pulse Ox 98.2 F 105 H 20 103/71 100 12/12/16 07:44 12/12/16 07:44 12/12/16 07:44 12/12/16 07:44 12/12/16 07:44 Intake and Output: 12/12/16 12/12/16 06:59 18:59 Intake Total 960 Output Total 550 Balance 410 - Medications Medications: Current Medications Diphenhydramine HCl (Benadryl) 25 mg IVP Q4 PRN PRN Reason: Itching / Pruritus Last Admin: 12/12/16 11:17 Dose: 25 mg Hydromorphone HCl (Dilaudid) 2 mg IVP Q4 PRN PRN Reason: pain Last Admin: 12/12/16 11:07 Dose: 2 mg Vancomycin HCl (Vancocin 750mg/D5w 150 Ml) 150 mls @ 133 mls/hr IV Q12H [facility] Stop: 12/14/16 00:01 Last Admin: 12/12/16 13:00 Dose: 133 mls/hr Piperacillin Sod/Tazobactam (Sod 3.375 gm/ Sodium Chloride) 100 mls @ 200 mls/ hr IVPB Q8H [facility] Last Admin: 12/12/16 09:00 Dose: 200 mls/hr Pantoprazole Sodium (Protonix Inj) 40 mg IVP DAILY [facility] Last Admin: 12/12/16 11:07 Dose: 40 mg - Labs Labs: 12/12/16 08:18 12/12/16 08:18 PT 11.6 SECONDS (9.7-12.2) 12/08/16 20:35 INR 1.0 12/08/16 20:35 APTT 30 SECONDS (21-34) 12/08/16 20:35 - Constitutional Appears: Well - Head Exam Head Exam: ATRAUMATIC, NORMAL INSPECTION, NORMOCEPHALIC - Eye Exam Eye Exam: EOMI, Normal appearance, PERRL Pupil Exam: NORMAL ACCOMODATION, PERRL - ENT Exam ENT Exam: Mucous Membranes Moist, Normal Exam - Neck Exam Neck Exam: Full ROM, Normal Inspection. absent: Lymphadenopathy - Respiratory Exam Respiratory Exam: Decreased Breath Sounds - Cardiovascular Exam Cardiovascular Exam: REGULAR RHYTHM, +S1, +S2 - GI/Abdominal Exam GI & Abdominal Exam: Soft, Diminished Bowel Sounds - Rectal Exam Rectal Exam: Deferred Assessment and Plan - Assessment and Plan (Free Text) Plan: DR. Frost Diphenhydramine Hydromorphone Vancomycin Piperacillin Sod/Tazobactam Pantoprazole wound care
--- NOTE | 2016-12-12 14:16 | CP.PCM.PN ---
Subjective - Date & Time of Evaluation Date of Evaluation: 12/12/16 Time of Evaluation: 02:00 - Subjective Subjective: dictated Objective - Vital Signs/Intake and Output Vital Signs (last 24 hours): Temp Pulse Resp BP Pulse Ox 98.2 F 105 H 20 103/71 100 12/12/16 07:44 12/12/16 07:44 12/12/16 07:44 12/12/16 07:44 12/12/16 07:44 Intake and Output: 12/12/16 12/12/16 06:59 18:59 Intake Total 960 Output Total 550 Balance 410 - Medications Medications: Current Medications Diphenhydramine HCl (Benadryl) 25 mg IVP Q4 PRN PRN Reason: Itching / Pruritus Last Admin: 12/12/16 11:17 Dose: 25 mg Hydromorphone HCl (Dilaudid) 2 mg IVP Q4 PRN PRN Reason: pain Last Admin: 12/12/16 11:07 Dose: 2 mg Vancomycin HCl (Vancocin 750mg/D5w 150 Ml) 150 mls @ 133 mls/hr IV Q12H [facility] Stop: 12/14/16 00:01 Last Admin: 12/12/16 13:00 Dose: 133 mls/hr Piperacillin Sod/Tazobactam (Sod 3.375 gm/ Sodium Chloride) 100 mls @ 200 mls/ hr IVPB Q8H [facility] Last Admin: 12/12/16 09:00 Dose: 200 mls/hr Pantoprazole Sodium (Protonix Inj) 40 mg IVP DAILY [facility] Last Admin: 12/12/16 11:07 Dose: 40 mg - Labs Labs: 12/12/16 08:18 12/12/16 08:18 PT 11.6 SECONDS (9.7-12.2) 12/08/16 20:35 INR 1.0 12/08/16 20:35 APTT 30 SECONDS (21-34) 12/08/16 20:35
--- NOTE | 2016-12-12 16:40 | PN ---
DATE: 12/12/2016 The patient remains afebrile. He is still waiting to be seen by 2 surgical teams. He remains on IV fluids. He still is with pain. He is getting pain medicine every 4 hours. PHYSICAL EXAMINATION: HEENT: Head is atraumatic. NECK: Supple. LUNGS: Clear. HEART: S1, S2 regular. ABDOMEN: Soft, nontender. He has a colostomy present. EXTREMITIES: No edema, clubbing or cyanosis. He does have perineal abscesses. I reviewed the CAT scan from 12/02 and he seems to be improving and should be started back on his GI m edications. Will see if he can come off the antibiotics after I hear from surgery what is their plan s. Santosh Daniel MD cc: [id number] TT: 12/12/2016 16:40:26 Confirmation # [id number] Dictation # [id number] [place]
[2016-12-13] MEDS: Vancomycin 750mg/D5W 150 ml 150 ML IV SCH ×2 (00:45→12:10)
[2016-12-13] MEDS: DiphenhydrAMINE 50 mg/ml Inj IVP PRN ×6 (03:55→20:05)
[2016-12-13] MEDS: Piperacillin/Tazobact 3.375 GM in Sodium Chloride 0.9% 100 ML IVPB SCH ×4 (06:34→22:29)
--- NOTE | 2016-12-13 13:34 | CP.PCM.PN ---
Subjective - Date & Time of Evaluation Date of Evaluation: 12/13/16 Time of Evaluation: 09:00 - Subjective Subjective: clinically same Objective - Vital Signs/Intake and Output Vital Signs (last 24 hours): Temp Pulse Resp BP Pulse Ox 98.3 F 107 H 20 103/70 100 12/13/16 07:47 12/13/16 07:47 12/13/16 07:47 12/13/16 07:47 12/13/16 07:47 Intake and Output: 12/13/16 12/13/16 06:59 18:59 Intake Total 730 Balance 730 - Medications Medications: Current Medications Diphenhydramine HCl (Benadryl) 25 mg IVP Q4 PRN PRN Reason: Itching / Pruritus Last Admin: 12/13/16 12:08 Dose: 25 mg Hydromorphone HCl (Dilaudid) 2 mg IVP Q4H PRN PRN Reason: Pain, moderate (4-7) Last Admin: 12/13/16 12:08 Dose: 2 mg Vancomycin HCl (Vancocin 750mg/D5w 150 Ml) 150 mls @ 133 mls/hr IV Q12H [facility] Stop: 12/14/16 00:01 Last Admin: 12/13/16 12:10 Dose: 133 mls/hr Piperacillin Sod/Tazobactam (Sod 3.375 gm/ Sodium Chloride) 100 mls @ 200 mls/ hr IVPB Q8H [facility] Last Admin: 12/13/16 06:34 Dose: 200 mls/hr Pantoprazole Sodium (Protonix Inj) 40 mg IVP DAILY [facility] Last Admin: 12/13/16 10:38 Dose: 40 mg - Labs Labs: 12/12/16 08:18 12/12/16 08:18 PT 11.6 SECONDS (9.7-12.2) 12/08/16 20:35 INR 1.0 12/08/16 20:35 APTT 30 SECONDS (21-34) 12/08/16 20:35 - Constitutional Appears: Well - Head Exam Head Exam: ATRAUMATIC, NORMAL INSPECTION, NORMOCEPHALIC - Eye Exam Eye Exam: EOMI, Normal appearance, PERRL Pupil Exam: NORMAL ACCOMODATION, PERRL - ENT Exam ENT Exam: Mucous Membranes Moist, Normal Exam - Neck Exam Neck Exam: Full ROM, Normal Inspection. absent: Lymphadenopathy - Respiratory Exam Respiratory Exam: Decreased Breath Sounds - Cardiovascular Exam Cardiovascular Exam: REGULAR RHYTHM, +S1, +S2 - GI/Abdominal Exam GI & Abdominal Exam: Soft, Diminished Bowel Sounds - Rectal Exam Rectal Exam: Deferred Assessment and Plan (1) Abdominal pain Status: Acute (2) Abscess Status: Acute (3) Constipation Status: Acute (4) Crohn disease Status: Acute (5) DVT (deep venous thrombosis) Status: Acute (6) Diarrhea Status: Acute (7) Diarrhea Status: Acute (8) Encounter for wound care Status: Acute (9) Fever Status: Acute (10) Foreign body Status: Acute (11) Intractable abdominal pain Status: Acute (12) Intractable pain Status: Acute (13) Prophylactic measure Status: Acute (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
[2016-12-14] MEDS: DiphenhydrAMINE 50 mg/ml Inj IVP PRN ×6 (00:05→20:40)
[2016-12-14] MEDS: Vancomycin 750mg/D5W 150 ml 150 ML IV SCH (00:05)
[2016-12-14 01:25] VITALS: RESP 20
[2016-12-14] MEDS: Piperacillin/Tazobact 3.375 GM in Sodium Chloride 0.9% 100 ML IVPB SCH (06:31)
--- NOTE | 2016-12-14 11:29 | CP.PCM.PN ---
Subjective - Date & Time of Evaluation Date of Evaluation: 12/14/16 Time of Evaluation: 09:00 - Subjective Subjective: clinically same Objective - Vital Signs/Intake and Output Vital Signs (last 24 hours): Temp Pulse Resp BP Pulse Ox 98.7 F 69 20 110/69 97 12/14/16 08:00 12/14/16 08:00 12/14/16 08:00 12/14/16 08:00 12/14/16 08:00 Intake and Output: 12/14/16 12/14/16 06:59 18:59 Intake Total 350 550 Output Total 500 1050 Balance -150 -500 - Medications Medications: Current Medications Diphenhydramine HCl (Benadryl) 25 mg IVP Q4 PRN PRN Reason: Itching / Pruritus Last Admin: 12/14/16 08:30 Dose: 25 mg Hydromorphone HCl (Dilaudid) 2 mg IVP Q4H PRN PRN Reason: Pain, moderate (4-7) Last Admin: 12/14/16 08:30 Dose: 2 mg Piperacillin Sod/Tazobactam (Sod 3.375 gm/ Sodium Chloride) 100 mls @ 200 mls/ hr IVPB Q8H [facility] Last Admin: 12/14/16 06:31 Dose: 200 mls/hr Pantoprazole Sodium (Protonix Inj) 40 mg IVP DAILY [facility] Last Admin: 12/14/16 10:57 Dose: 40 mg - Labs Labs: 12/12/16 08:18 12/12/16 08:18 PT 11.6 SECONDS (9.7-12.2) 12/08/16 20:35 INR 1.0 12/08/16 20:35 APTT 30 SECONDS (21-34) 12/08/16 20:35 - Constitutional Appears: Well - Head Exam Head Exam: ATRAUMATIC, NORMAL INSPECTION, NORMOCEPHALIC - Eye Exam Eye Exam: EOMI, Normal appearance, PERRL Pupil Exam: NORMAL ACCOMODATION, PERRL - ENT Exam ENT Exam: Mucous Membranes Moist, Normal Exam - Neck Exam Neck Exam: Full ROM, Normal Inspection. absent: Lymphadenopathy - Respiratory Exam Respiratory Exam: Decreased Breath Sounds - Cardiovascular Exam Cardiovascular Exam: REGULAR RHYTHM, +S1, +S2 - GI/Abdominal Exam GI & Abdominal Exam: Diminished Bowel Sounds. 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
[2016-12-14] MEDS: Vancomycin 750mg/D5W 150 ml 150 ML IVPB SCH (14:59)
[2016-12-15] MEDS: DiphenhydrAMINE 50 mg/ml Inj IVP PRN ×6 (00:41→21:00)
[2016-12-15] MEDS: Vancomycin 750mg/D5W 150 ml 150 ML IVPB SCH ×2 (01:18→13:36)
--- NOTE | 2016-12-15 17:01 | CP.PCM.PN ---
Subjective - Date & Time of Evaluation Date of Evaluation: 12/15/16 Time of Evaluation: 09:20 - Subjective Subjective: clinically same Objective - Vital Signs/Intake and Output Vital Signs (last 24 hours): Temp Pulse Resp BP Pulse Ox 98.2 F 98 H 20 105/66 96 12/15/16 15:05 12/15/16 15:05 12/15/16 15:05 12/15/16 15:05 12/15/16 15:05 Intake and Output: 12/15/16 12/15/16 06:59 18:59 Intake Total 300 510 Output Total 400 600 Balance -100 -90 - Medications Medications: Current Medications Diphenhydramine HCl (Benadryl) 25 mg IVP Q4 PRN PRN Reason: Itching / Pruritus Last Admin: 12/15/16 12:57 Dose: 25 mg Hydromorphone HCl (Dilaudid) 2 mg IVP Q4H PRN PRN Reason: Pain, moderate (4-7) Last Admin: 12/15/16 13:00 Dose: 2 mg Vancomycin HCl (Vancocin 750mg/D5w 150 Ml) 150 mls @ 133 mls/hr IVPB Q12H [facility] Stop: 12/19/16 14:01 Last Admin: 12/15/16 13:36 Dose: 133 mls/hr Pantoprazole Sodium (Protonix Inj) 40 mg IVP DAILY [facility] Last Admin: 12/15/16 09:07 Dose: 40 mg - Labs Labs: 12/12/16 08:18 12/12/16 08:18 PT 11.6 SECONDS (9.7-12.2) 12/08/16 20:35 INR 1.0 12/08/16 20:35 APTT 30 SECONDS (21-34) 12/08/16 20:35 - Constitutional Appears: Well - Head Exam Head Exam: ATRAUMATIC, NORMAL INSPECTION, NORMOCEPHALIC - Eye Exam Eye Exam: EOMI, Normal appearance, PERRL Pupil Exam: NORMAL ACCOMODATION, PERRL - ENT Exam ENT Exam: Mucous Membranes Moist, Normal Exam - Neck Exam Neck Exam: Full ROM, Normal Inspection. absent: Lymphadenopathy - Respiratory Exam Respiratory Exam: Decreased Breath Sounds - Cardiovascular Exam Cardiovascular Exam: REGULAR RHYTHM, +S1, +S2 - GI/Abdominal Exam GI & Abdominal Exam: Soft, Diminished Bowel Sounds - Rectal Exam Rectal Exam: Deferred Assessment and Plan (1) Abdominal pain Status: Acute (2) Abscess Status: Acute (3) Constipation Status: Acute (4) Crohn disease Status: Acute (5) DVT (deep venous thrombosis) Status: Acute (6) Diarrhea Status: Acute (7) Diarrhea Status: Acute (8) Encounter for wound care Status: Acute (9) Fever Status: Acute (10) Foreign body Status: Acute (11) Intractable abdominal pain Status: Acute (12) Intractable pain Status: Acute (13) Prophylactic measure Status: Acute (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
[2016-12-16] MEDS: DiphenhydrAMINE 50 mg/ml Inj IVP PRN ×6 (00:11→21:41)
[2016-12-16] MEDS: Vancomycin 750mg/D5W 150 ml 150 ML IVPB SCH ×3 (02:05→14:55)
--- NOTE | 2016-12-16 12:05 | CP.PCM.PN ---
<Brianda Bazzi - Last Filed: 12/16/16 14:31> Subjective - Date & Time of Evaluation Date of Evaluation: 12/16/16 Time of Evaluation: 12:03 - Subjective Subjective: Medicine Progress Note- Dr Barrett's service Patient seen and examined. Patient states that he feels well but complains of chronic pain. No acute events overnight. Denies fever, chills, nausea, vomiting, diarrhea, chest pain, and shortness of breath. Patient is to be discharged home per Dr Shiloh Barrett. He should continue all of his home medications and will not be given any new Rx. Patient should follow up with Dr Shiloh Barrett his PMD within 1 week. If patient has any other concerns he may return to the ED. Instructions were explained to the patient who understands. Objective - Vital Signs/Intake and Output Vital Signs (last 24 hours): Temp Pulse Resp BP Pulse Ox 99.0 F 84 20 117/77 99 12/16/16 08:03 12/16/16 08:03 12/16/16 08:03 12/16/16 08:03 12/16/16 08:03 Intake and Output: 12/16/16 12/16/16 06:59 18:59 Intake Total 350 Balance 350 - Medications Medications: Current Medications Diphenhydramine HCl (Benadryl) 25 mg IVP Q4 PRN PRN Reason: Itching / Pruritus Last Admin: 12/16/16 09:26 Dose: 25 mg Hydromorphone HCl (Dilaudid) 2 mg IVP Q4H PRN PRN Reason: Pain, moderate (4-7) Last Admin: 12/16/16 09:27 Dose: 2 mg Vancomycin HCl (Vancocin 750mg/D5w 150 Ml) 150 mls @ 133 mls/hr IVPB Q12H [facility] Stop: 12/19/16 14:01 Last Admin: 12/16/16 02:05 Dose: 133 mls/hr Pantoprazole Sodium (Protonix Inj) 40 mg IVP DAILY [facility] Last Admin: 12/16/16 09:26 Dose: 40 mg - Labs Labs: 12/12/16 08:18 12/12/16 08:18 PT 11.6 SECONDS (9.7-12.2) 12/08/16 20:35 INR 1.0 12/08/16 20:35 APTT 30 SECONDS (21-34) 12/08/16 20:35 - Additional Findings Additional findings: - Constitutional Appears: Non-toxic, No Acute Distress - Head Exam Head Exam: ATRAUMATIC, NORMAL INSPECTION, NORMOCEPHALIC - Eye Exam Pupil Exam: NORMAL ACCOMODATION, PERRL - ENT Exam ENT Exam: Mucous Membranes Moist - Respiratory Exam Respiratory Exam: Clear to Ausculation Bilateral, NORMAL BREATHING PATTERN. absent: Prolonged Expiratory Phase, Rales, Rhonchi, Wheezes - Cardiovascular Exam Cardiovascular Exam: REGULAR RHYTHM, +S1, +S2 - GI/Abdominal Exam GI & Abdominal Exam: Soft, Normal Bowel Sounds. absent: Tenderness, Diminished Bowel Sounds, Hypoactive Bowel Sounds Additional comments: Colostomy bag present - Extremities Exam Extremities Exam: Normal Capillary Refill, Normal Inspection - Neurological Exam Neurological Exam: Alert, Awake, Oriented x3 - Psychiatric Exam Psychiatric exam: Normal Affect, Normal Mood - Skin Skin Exam: Dry, Intact, Normal Color, Warm Assessment and Plan - Assessment and Plan (Free Text) Assessment: 1. Abscess Surgery consulted- Dr Taylor- No surgical intervention of abscess. Patient is not ready for colostomy reversal yet due to Crohns disease Continue wound care IV Vanco may be discontinued per ID Dr Daniel. Will remove PICC Line before discharge Pt stable with pain managed well All management per Dr Shiloh Barrett <Osvaldo Barrett S - Last Filed: 12/16/16 19:32> Objective - Vital Signs/Intake and Output Vital Signs (last 24 hours): Temp Pulse Resp BP Pulse Ox 98 F 92 H 20 103/67 98 12/16/16 15:20 12/16/16 15:20 12/16/16 15:20 12/16/16 15:20 12/16/16 15:20 Intake and Output: 12/16/16 12/17/16 18:59 06:59 Intake Total 630 Balance 630 - Medications Medications: Current Medications Diphenhydramine HCl (Benadryl) 25 mg IVP Q4 PRN PRN Reason: Itching / Pruritus Last Admin: 12/16/16 17:37 Dose: 25 mg Hydromorphone HCl (Dilaudid) 2 mg IVP Q4H PRN PRN Reason: Pain, moderate (4-7) Last Admin: 12/16/16 17:36 Dose: 2 mg Vancomycin HCl (Vancocin 750mg/D5w 150 Ml) 150 mls @ 133 mls/hr IVPB Q12H [facility] Stop: 12/19/16 14:01 Last Admin: 12/16/16 14:55 Dose: 133 mls/hr Pantoprazole Sodium (Protonix Inj) 40 mg IVP DAILY [facility] Last Admin: 12/16/16 09:26 Dose: 40 mg - Labs Labs: 12/12/16 08:18 12/12/16 08:18 PT 11.6 SECONDS (9.7-12.2) 12/08/16 20:35 INR 1.0 12/08/16 20:35 APTT 30 SECONDS (21-34) 12/08/16 20:35 Attending/Attestation - Attestation I have personally seen and examined this patient.: Yes I have fully participated in the care of the patient.: Yes I have reviewed all pertinent clinical information, including history, physical exam and plan: Yes Notes (Text): 12/16/16 19:32 case seen and discussed with pt and mx as ordered
--- NOTE | 2016-12-16 15:03 | CP.PCM.PN ---
Subjective - Date & Time of Evaluation Date of Evaluation: 12/16/16 Time of Evaluation: 09:20 - Subjective Subjective: feels better no fever no N/V/abdominal pain Objective - Vital Signs/Intake and Output Vital Signs (last 24 hours): Temp Pulse Resp BP Pulse Ox 99.0 F 84 20 117/77 99 12/16/16 08:03 12/16/16 08:03 12/16/16 08:03 12/16/16 08:03 12/16/16 08:03 Intake and Output: 12/16/16 12/16/16 06:59 18:59 Intake Total 350 Balance 350 - Medications Medications: Current Medications Diphenhydramine HCl (Benadryl) 25 mg IVP Q4 PRN PRN Reason: Itching / Pruritus Last Admin: 12/16/16 13:27 Dose: 25 mg Hydromorphone HCl (Dilaudid) 2 mg IVP Q4H PRN PRN Reason: Pain, moderate (4-7) Last Admin: 12/16/16 13:28 Dose: 2 mg Vancomycin HCl (Vancocin 750mg/D5w 150 Ml) 150 mls @ 133 mls/hr IVPB Q12H [facility] Stop: 12/19/16 14:01 Last Admin: 12/16/16 14:50 Dose: Not Given Pantoprazole Sodium (Protonix Inj) 40 mg IVP DAILY [facility] Last Admin: 12/16/16 09:26 Dose: 40 mg - Labs Labs: 12/12/16 08:18 12/12/16 08:18 PT 11.6 SECONDS (9.7-12.2) 12/08/16 20:35 INR 1.0 12/08/16 20:35 APTT 30 SECONDS (21-34) 12/08/16 20:35 - Constitutional Appears: Well - Head Exam Head Exam: ATRAUMATIC, NORMAL INSPECTION, NORMOCEPHALIC - Eye Exam Eye Exam: EOMI, Normal appearance, PERRL Pupil Exam: NORMAL ACCOMODATION, PERRL - ENT Exam ENT Exam: Mucous Membranes Moist, Normal Exam - Neck Exam Neck Exam: Full ROM, Normal Inspection. absent: Lymphadenopathy - Respiratory Exam Respiratory Exam: Decreased Breath Sounds - Cardiovascular Exam Cardiovascular Exam: REGULAR RHYTHM, +S1, +S2 - GI/Abdominal Exam GI & Abdominal Exam: Soft, Diminished Bowel Sounds - Rectal Exam Rectal Exam: Deferred Assessment and Plan (1) Abdominal pain Status: Acute (2) Abscess Status: Acute (3) Constipation Status: Acute (4) Crohn disease Status: Acute (5) DVT (deep venous thrombosis) Status: Acute (6) Diarrhea Status: Acute (7) Diarrhea Status: Acute (8) Encounter for wound care Status: Acute (9) Fever Status: Acute (10) Foreign body Status: Acute (11) Intractable abdominal pain Status: Acute (12) Intractable pain Status: Acute (13) Prophylactic measure Status: Acute (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 can be discharge irina. home meds f/u with me at outpatient after a week
[2016-12-16 17:59] VITALS: BP 103/67; PULSE 92; TEMP 98; O2SAT 98
== END 2016-12-17 00:15 | disposition home or self-care (01) | DRG 277 ==
LOC: C.ER 17:27 → C.3T 21:10
PROVIDERS: ADMIT Internal Medicine Nephrology; ATTEND Internal Medicine Nephrology
DX: L02.215 Cutaneous abscess of perineum (principal); K61.1 Rectal abscess; K50.90 Crohn's disease, unspecified, without complications; Z93.3 Colostomy status; F32.9 Major depressive disorder, single episode, unspecified

== ENCOUNTER 2016-12-21 19:59 | Inpatient (IN) | payer MEDICAID ==
[2016-12-21 19:59] VITALS: BMI 22.2
--- NOTE | 2016-12-21 20:21 | C.PDOC ---
History Of Present Illness 21 yr old male with PMHx of Crohn's disease, presents to the ER with complaints of rectal pain and purulent discharge from the perineal area. Patient was recently admitted for similar symptoms. Patient denies fever, chills, nausea, vomiting, abdominal pain, diarrhea, dysuria, weakness or numbness. Time Seen by Provider: 12/21/16 20:21 Chief Complaint (Nursing): Abnormal Skin Integrity History Per: Patient History/Exam Limitations: no limitations Onset/Duration Of Symptoms: Days (Chronic ) Current Symptoms Are (Timing): Still Present Quality Of Symptoms: Painful Severity: Moderate Pain Scale Rating Of: 4 Recent travel outside of the [place]: No Additional History Per: Patient Past Medical History Reviewed: Historical Data, Nursing Documentation, Vital Signs Vital Signs: Last Vital Signs Temp 98.7 F 12/21/16 20:20 Pulse 89 12/21/16 20:20 Resp 18 12/21/16 20:20 BP 136/80 12/21/16 20:20 Pulse Ox 98 12/21/16 20:20 - Medical History PMH: Crohn's Disease (COLOSTOMY 2016), Depression - [facility] Procedures DRAINAGE OF BACK SUBCU/FASCIA, OPEN APPROACH (10/21/16) DRAINAGE OF BUTTOCK SKIN, EXTERNAL APPROACH, DIAGNOSTIC (09/23/16) DRAINAGE OF BUTTOCK SUBCU/FASCIA, OPEN APPROACH (10/21/16) EXCISION OF BACK SKIN, EXTERNAL APPROACH (09/23/16) EXCISION OF BACK SUBCU/FASCIA, OPEN APPROACH (10/21/16) EXCISION OF BUTTOCK SUBCU/FASCIA, OPEN APPROACH (10/21/16) EXCISION OF PERINEUM SKIN, EXTERNAL APPROACH (09/23/16) EXTRACTION OF BUTTOCK SKIN, EXTERNAL APPROACH (09/23/16) GROUP PSYCHOTHERAPY (11/25/16) INDIVIDUAL PSYCHOTHERAPY, COGNITIVE-BEHAVIORAL (11/25/16) INDIVIDUAL PSYCHOTHERAPY, SUPPORTIVE (11/25/16) Family History: States: No Known Family Hx - Social History Hx Alcohol Use: No Hx Substance Use: No - Immunization History Hx Tetanus Toxoid Vaccination: No Hx Influenza Vaccination: No Hx Pneumococcal Vaccination: No Review Of Systems Except As Marked, All Systems Reviewed And Found Negative. Constitutional: Negative for: Fever, Chills Cardiovascular: Negative for: Chest Pain Respiratory: Negative for: Shortness of Breath Gastrointestinal: Positive for: Rectal Pain, Other ((+) purulent discharge from the perineal area). Negative for: Nausea, Vomiting, Abdominal Pain, Diarrhea Genitourinary: Negative for: Dysuria Musculoskeletal: Negative for: Back Pain Skin: Positive for: Rash, Lesions Neurological: Negative for: Weakness, Numbness Psych: Negative for: Anxiety Physical Exam - Physical Exam Appears: Non-toxic, In Acute Distress (Moderate distress. 5/10) Skin: Warm, Dry, No Rash Head: Normacephalic Eye(s): bilateral: Normal Inspection Oral Mucosa: Moist Neck: Supple Chest: Symmetrical, No Tenderness Cardiovascular: Rhythm Regular, No Murmur Respiratory: No Rales, No Rhonchi, No Stridor, No Wheezing Gastrointestinal/Abdominal: Soft, Tenderness (Diffuse mild to moderate tenderness. ), No Guarding, No Rebound, Other (Colostomy bag on the left ) Rectal: Other ((+) 8-9 cm perineal abscess with some serosanguinous discharge. Tender of palpation. ) Back: Normal Inspection, No CVA Tenderness Extremity: No Tenderness, No Swelling Extremity: Bilateral: Atraumatic, Normal Color And Temperature Neurological/Psych: Oriented x3, Normal Speech, Normal Cognition Gait: Steady ED Course And Treatment - Laboratory Results Result Diagrams: 12/21/16 21:32 12/21/16 20:57 Medical Decision Making Medical Decision Making: PLAN: * CBC * Benadryl IVP * Dilaudid IVP * Protonix IVP * Zofran IVP * Sodium Chloride IV Disposition Discussed With : Osvaldo Barrett Comment: accepted the pt on his service and took over the care at 9:44 PM Doctor Will See Patient In The: Hospital Counseled Patient/Family Regarding: Studies Performed, Diagnosis - Disposition Referrals: Osvaldo Barrett MD [Primary Care Provider] - Disposition: HOSPITALIZED Disposition Time: 20:21 Condition: FAIR - Clinical Impression Clinical Impression: Crohn disease, Intractable pain, Wound of right buttock, Abscess, Diarrhea - Scribe Statement The provider has reviewed the documentation as recorded by the Delroy Mahoney Provider Attestation: All medical record entries made by the Delroy were at my direction and personally dictated by me. I have reviewed the chart and agree that the record accurately reflects my personal performance of the history, physical exam, medical decision making, and the department course for this patient. I have also personally directed, reviewed, and agree with the discharge instructions and disposition. Decision To Admit - Pt Status Changed To: Hospital Disposition Of: Inpatient - Admit Certification Admit to Inpatient:: After my assessment, the patient will require hospitalization for at least two midnights. This is because of the severity of symptoms shown, intensity of services needed, and/or the medical risk in this patient being treated as an outpatient. - InPatient: Physician Admission Certification: I certify that this patient requires 2 or more midnights of care for the following reason:: After my assessment, the patient will require hospitalization for at least two midnights. This is because of the severity of symptoms shown, intensity of services needed, and/or the medical risk in this patient being treated as an outpatient. - . Bed Request Type: Regular Admitting Physician: Osvaldo Barrett Patient Diagnosis: Crohn disease, Intractable pain, Wound of right buttock, Abscess, Diarrhea
[2016-12-21] MEDS ORDERED: HYDROmorphone 1 mg/ml ISec IVP STA ×2 (20:31→23:51)
[2016-12-21] MEDS ORDERED: Sodium Chloride 0.9% 1,000 ML IV ONE (20:31)
[2016-12-21] MEDS ORDERED: DiphenhydrAMINE 50 mg/ml Inj IVP STA ×2 (20:31→23:51)
[2016-12-21] MEDS ORDERED: DiphenhydrAMINE 50 mg/ml Inj ONE ×2 (20:48→23:42)
[2016-12-21] MEDS ORDERED: Sodium Chloride 0.9% 1,000 ML ONE (20:48)
[2016-12-21] MEDS ORDERED: HYDROmorphone 1 mg/ml ISec ONE ×2 (20:48→23:42)
[2016-12-21 21:09] LABS: CHLORIDE 99 mmol/L (98-107)
[2016-12-21 21:10] LABS: POTASSIUM 4.3 mmol/L (3.6-5.2); SODIUM 138 mmol/L (132-148)
[2016-12-21 21:12] LABS: BILIRUBIN,TOTAL 0.5 mg/dL (0.2-1.3); GFR AFRICAN-AMERICAN > 60
[2016-12-21 21:13] LABS: ALKALINE PHOSPHATASE 109 U/L (38-126); ALT/SGPT 32 U/L (21-72); AST/SGOT 27 U/L (17-59); BLOOD UREA NITROGEN 13 mg/dL (9-20); CALCIUM 9.3 mg/dl (8.6-10.4); CARBON DIOXIDE 26 mmol/L (22-30); GLUCOSE,RANDOM 85 mg/dL (75-110); TOTAL PROTEIN 8.2 g/dL (6.3-8.3)
[2016-12-21 21:40] LABS: BASO # 0.2 K/uL (0.0-0.2); BASO % 1.3 % (0.0-2.0); EOS # 0.2 K/uL (0.0-0.7); EOS % 1.3 % (0.0-4.0); HEMATOCRIT 28.9 % (35.0-51.0); LYMPH % 25.3 % (20.0-40.0); MEAN CELL VOLUME 63.4 fL (80.0-94.0); MEAN CORPUSCULAR HEMOGLOBIN 19.5 pg (27.0-31.0); MEAN CORPUSCULAR HGB CONC 30.8 g/dL (33.0-37.0); MEAN PLATELET VOLUME 7.7 fL (7.2-11.7); MONO # 0.7 K/uL (0.0-0.8); MONO % 5.9 % (0.0-10.0); NRBC % 0.1 % (0.0-2.0); RED CELL DISTRIBUTION WIDTH 17.9 % (11.5-14.5); WHITE BLOOD COUNT 11.7 K/uL (4.8-10.8)
[2016-12-22] MEDS ORDERED: HYDROmorphone 1 mg/ml ISec IVP STA (03:25)
[2016-12-22] MEDS ORDERED: DiphenhydrAMINE 50 mg/ml Inj IVP STA (03:25)
[2016-12-22] MEDS ORDERED: HYDROmorphone 1 mg/ml ISec ONE (03:28)
[2016-12-22] MEDS ORDERED: DiphenhydrAMINE 50 mg/ml Inj ONE (03:28)
[2016-12-22] MEDS: Meropenem 1 GM in Sodium Chloride 0.9% 100 ML IVPB SCH ×3 (11:10→22:30)
[2016-12-22] MEDS: Pantoprazole 40 mg EC Tab PO SCH (11:12)
--- NOTE | 2016-12-22 12:57 | PCM.SURG1 ---
Surgeon's Initial Post Op Note - Surgeon's Notes Surgeon: Enrique Franklin MD Counseling Psychologist: None Type of Anesthesia: Local Pre-Operative Diagnosis: Crohn's disease Operative Findings: Small but patent brachial vein. Post-Operative Diagnosis: Crohn's disease Operation Performed: Single lumen picc placement right brachial vein, 33 cm. Tip in SVC. Specimen/Specimens Removed: NONE Estimated Blood Loss: EBL {In ML}: 2 Blood Products Given: N/A Drains Used: No Drains Post-Op Condition: Fair Date of Surgery/Procedure: 12/22/16 Time of Surgery/Procedure: 12:50
[2016-12-22] MEDS: DiphenhydrAMINE 50 mg/ml Inj IVP PRN ×3 (13:22→21:32)
[2016-12-22 14:30] LABS: RBC URINE < 1 /hpf (0-3); URINE BILIRUBIN NEGATIVE (NEGATIVE); URINE BLOOD NEGATIVE (NEGATIVE); URINE COLOR Yellow (YELLOW); URINE GLUCOSE (UA) NORMAL (Normal); URINE KETONE NEGATIVE (NEGATIVE); URINE LEUKOCYTE ESTERASE 1+ Leu/uL (Negative); URINE PROTEIN NEGATIVE (NEGATIVE); URINE UROBILINOGEN NORMAL mg/dL (0.2-1.0); WBC URINE 1 /hpf (0-5)
--- NOTE | 2016-12-22 16:48 | CP.PCM.CON ---
<Odin Merritt - Last Filed: 12/22/16 16:58> History of Present Illness - History of Present Illness History of Present Illness: Surgery: Dr. Taylor CC: diarrhea HPI: Patient is a 21 y/o male w/ a history of Crohn's colitis w/ multiple flares as well as multiple nitza-rectal abscesses requiring drainage presents complaining of diarrhea that started about 5 days ago. He reports low grade fevers but can not report how high. He denies n/v. He denies pain to the rectal area at this time. He actually states his rectal area feels better than it has in the past. He states he has some discomfort if he sits for extended long periods of time but otherwise overall says his rectal area is better. He states he has been getting Humira shots and mesalamine for his Crohn's disease for the past 3 weeks. He denies any other complaints at this time. PMH: as stated above PSH: colostomy, multple nitza-rectal abscess I&Ds Review of Systems - Review of Systems All systems: reviewed and no additional remarkable complaints except Review of Systems: stated in HPI - Constitutional Constitutional: Chills, Fever. absent: Anorexia - EENT Eyes: absent: Blurred Vision, Change in Vision Ears: absent: Dizziness Nose/Mouth/Throat: absent: Nasal Congestion, Sore Throat - Cardiovascular Cardiovascular: absent: Chest Pain, Dyspnea - Respiratory Respiratory: absent: Cough, Wheezing - Gastrointestinal Gastrointestinal: Abdominal Pain, Diarrhea. absent: Bloating, Constipation, Cramping, Nausea, Vomiting - Genitourinary Genitourinary: absent: Hematuria, Pyuria - Musculoskeletal Musculoskeletal: absent: Arthralgias, Numbness - Integumentary Integumentary: Wounds (nitza-rectal appear to be healing well ). absent: Skin Pain - Psychiatric Psychiatric: absent: Change in Appetite - Endocrine Endocrine: absent: Polydipsia, Polyphagia - Hematologic/Lymphatic Hematologic: absent: Easy Bleeding, Easy Bruising Past Patient History - Infectious Disease Hx of Infectious Diseases: None - Past Medical History & Family History Past Medical History?: Yes - Past Social History Smoking Status: Never Smoked - CARDIAC Hx Cardiac Disorders: No - PULMONARY Hx Respiratory Disorders: No - NEUROLOGICAL Hx Neurological Disorder: No - HEENT Hx HEENT Problems: No - RENAL Hx Chronic Kidney Disease: No - ENDOCRINE/METABOLIC Hx Endocrine Disorders: No - HEMATOLOGICAL/ONCOLOGICAL Hx Blood Disorders: No - INTEGUMENTARY Hx Dermatological Problems: Yes Other/Comment: Perineal wound. Rectal abcess - MUSCULOSKELETAL/RHEUMATOLOGICAL Hx Musculoskeletal Disorders: No Hx Falls: No - GASTROINTESTINAL Hx Crohn's Disease: Yes (COLOSTOMY 2016) - GENITOURINARY/GYNECOLOGICAL Hx Genitourinary Disorders: No - PSYCHIATRIC Hx Depression: Yes Hx Substance Use: No - SURGICAL HISTORY Hx Surgeries: Yes (SEE COMMENT) Other/Comment: LOOP COLOSTOMY. Perineal wound. Right upper arm PICC line. COLON RESECTION - ANESTHESIA Hx Anesthesia: Yes Hx Anesthesia Reactions: No Hx Malignant Hyperthermia: No Meds Allergies/Adverse Reactions: Allergies Allergy/AdvReac Type Severity Reaction Status Date / Time morphine Allergy ITCHING Verified 12/21/16 20:16 - Medications Medications: Current Medications Acetaminophen (Tylenol 325mg Tab) 650 mg PO Q6 PRN PRN Reason: Headache Cyanocobalamin (Vitamin B12 1000 Mcg Tab) 1,000 mcg PO DAILY [facility] Last Admin: 12/22/16 11:10 Dose: 1,000 mcg Diphenhydramine HCl (Benadryl) 25 mg IVP Q4 PRN PRN Reason: Itching / Pruritus Last Admin: 12/22/16 13:22 Dose: 25 mg Hydromorphone HCl (Dilaudid) 2 mg IVP Q4 PRN PRN Reason: Pain, severe (8-10) Last Admin: 12/22/16 13:22 Dose: 2 mg Vancomycin HCl 1,000 mg/ (Sodium Chloride) 250 mls @ 166.6 mls/hr IVPB Q12H [facility] Last Admin: 12/22/16 11:11 Dose: 166.6 mls/hr Meropenem 1 gm/ Sodium (Chloride) 100 mls @ 100 mls/hr IVPB Q8 [facility] Last Admin: 12/22/16 11:10 Dose: 100 mls/hr Mesalamine (Delzicol) 800 mg PO TID [facility] Ondansetron HCl (Zofran Inj) 4 mg IVP Q8 PRN PRN Reason: Nausea/Vomiting Pantoprazole Sodium (Protonix Ec Tab) 40 mg PO DAILY [facility] Last Admin: 12/22/16 11:12 Dose: 40 mg Paroxetine HCl (Paxil) 10 mg PO DAILY [facility] Last Admin: 12/22/16 11:10 Dose: 10 mg Trazodone HCl (Desyrel) 50 mg PO HS [facility] Physical Exam - Constitutional Appears: Well, Non-toxic, No Acute Distress - Head Exam Head Exam: ATRAUMATIC, NORMOCEPHALIC - Eye Exam Eye Exam: EOMI, Normal appearance - ENT Exam ENT Exam: Mucous Membranes Moist - Respiratory Exam Respiratory Exam: NORMAL BREATHING PATTERN. absent: Respiratory Distress - Cardiovascular Exam Cardiovascular Exam: REGULAR RHYTHM. absent: Tachycardia - GI/Abdominal Exam GI & Abdominal Exam: Soft. absent: Tenderness Additional comments: colostomy w/ soft stool output - Rectal Exam Additional comments: nitza-rectal wounds appear to be healing, mild serous drainage noted on pad. no foul odor. Pain mild upon exam which is much improved from prior. Patient tolerated exam well. fullness palpated to the right inferior gluteal region. Not tender to palpation as abscess would be. Results - Vital Signs Recent Vital Signs: Last Vital Signs Temp 98 F 12/22/16 15:39 Pulse 83 12/22/16 15:39 Resp 18 12/22/16 15:39 BP 108/69 12/22/16 15:39 Pulse Ox 100 12/22/16 15:39 - Labs Result Diagrams: 12/21/16 21:32 12/21/16 20:57 Labs: Laboratory Results - last 24 hr 12/22/16 14:15 Urine Color Yellow Urine Clarity Clear Urine pH 6.0 Ur Specific [place] 1.013 Urine Protein Negative Urine Glucose (UA) Normal Urine Ketones Negative Urine Blood Negative Urine Nitrate Negative Urine Bilirubin Negative Urine Urobilinogen Normal Ur Leukocyte Esterase 1+ H Urine WBC (Auto) 1 Urine RBC (Auto) < 1 Ur Squamous Epith Cells 1 Assessment & Plan - Assessment and Plan (Free Text) Assessment: 21 y/o male w/ Crohn's disease presenting w/ diarrhea Plan: -cont abx -no definitive abscess for surgical drainage at this time -cont medications for Crohn's -further recs per Dr. Taylor AKWhite PGY1 <Temo Taylor - Last Filed: 12/24/16 20:37> Meds - Medications Medications: Current Medications Acetaminophen (Tylenol 325mg Tab) 650 mg PO Q6 PRN PRN Reason: Headache Cyanocobalamin (Vitamin B12 1000 Mcg Tab) 1,000 mcg PO DAILY [facility] Last Admin: 12/24/16 10:04 Dose: 1,000 mcg Diphenhydramine HCl (Benadryl) 25 mg IVP Q4 PRN PRN Reason: Itching / Pruritus Last Admin: 12/24/16 16:44 Dose: 25 mg Hydromorphone HCl (Dilaudid) 2 mg IVP Q4 PRN PRN Reason: Pain, severe (8-10) Last Admin: 12/24/16 16:45 Dose: 2 mg Vancomycin HCl 1,000 mg/ (Sodium Chloride) 250 mls @ 166.6 mls/hr IVPB Q12H [facility] Last Admin: 12/24/16 10:04 Dose: 166.6 mls/hr Meropenem 1 gm/ Sodium (Chloride) 100 mls @ 100 mls/hr IVPB Q8 [facility] Last Admin: 12/24/16 13:24 Dose: 100 mls/hr Gentamicin Sulfate 60 mg/ (Sodium Chloride) 51.5 mls @ 100 mls/hr IVPB Q8H [facility] Last Admin: 12/24/16 12:24 Dose: 100 mls/hr Mesalamine (Delzicol) 800 mg PO TID [facility] Last Admin: 12/24/16 17:26 Dose: 800 mg Ondansetron HCl (Zofran Inj) 4 mg IVP Q8 PRN PRN Reason: Nausea/Vomiting Pantoprazole Sodium (Protonix Ec Tab) 40 mg PO DAILY [facility] Last Admin: 12/24/16 10:04 Dose: 40 mg Paroxetine HCl (Paxil) 10 mg PO DAILY [facility] Last Admin: 12/24/16 10:04 Dose: 10 mg Trazodone HCl (Desyrel) 50 mg PO HS [facility] Last Admin: 12/23/16 22:59 Dose: 50 mg Results - Vital Signs Recent Vital Signs: Last Vital Signs Temp 98.3 F 12/24/16 16:00 Pulse 112 H 12/24/16 16:00 Resp 20 12/24/16 16:00 BP 113/77 12/24/16 16:00 Pulse Ox 99 12/24/16 16:00 - Labs Result Diagrams: 12/21/16 21:32 12/21/16 20:57 Attending/Attestation - Attestation I have personally seen and examined this patient.: Yes I have fully participated in the care of the patient.: Yes I have reviewed all pertinent clinical information: Yes Notes (Text): 12/24/16 20:36 Pt was seen and examined at bedside on 12/23/16 Agree with above note and assessment Pt with Crohns dis and Perineal wound C.w IV antibiotics Plan d.w pt and primary team in detail Risk and benefit explained in detail.
--- NOTE | 2016-12-22 18:35 | CP.PCM.HP ---
Past Patient History - Infectious Disease Hx of Infectious Diseases: None - Past Medical History & Family History Past Medical History?: Yes - Past Social History Smoking Status: Never Smoked - CARDIAC Hx Cardiac Disorders: No - PULMONARY Hx Respiratory Disorders: No - NEUROLOGICAL Hx Neurological Disorder: No - HEENT Hx HEENT Problems: No - RENAL Hx Chronic Kidney Disease: No - ENDOCRINE/METABOLIC Hx Endocrine Disorders: No - HEMATOLOGICAL/ONCOLOGICAL Hx Blood Disorders: No - INTEGUMENTARY Hx Dermatological Problems: Yes Other/Comment: Perineal wound. Rectal abcess - MUSCULOSKELETAL/RHEUMATOLOGICAL Hx Musculoskeletal Disorders: No Hx Falls: No - GASTROINTESTINAL Hx Crohn's Disease: Yes (COLOSTOMY 2016) - GENITOURINARY/GYNECOLOGICAL Hx Genitourinary Disorders: No - PSYCHIATRIC Hx Depression: Yes Hx Substance Use: No - SURGICAL HISTORY Hx Surgeries: Yes (SEE COMMENT) Other/Comment: LOOP COLOSTOMY. Perineal wound. Right upper arm PICC line. COLON RESECTION - ANESTHESIA Hx Anesthesia: Yes Hx Anesthesia Reactions: No Hx Malignant Hyperthermia: No Meds Allergies/Adverse Reactions: Allergies Allergy/AdvReac Type Severity Reaction Status Date / Time morphine Allergy ITCHING Verified 12/21/16 20:16 Physical Exam - Constitutional Appears: Well - Head Exam Head Exam: ATRAUMATIC, NORMAL INSPECTION, NORMOCEPHALIC - Eye Exam Eye Exam: EOMI, Normal appearance, PERRL Pupil Exam: NORMAL ACCOMODATION, PERRL - ENT Exam ENT Exam: Mucous Membranes Moist, Normal Exam - Neck Exam Neck exam: Positive for: Normal Inspection - Respiratory Exam Respiratory Exam: Decreased Breath Sounds - Cardiovascular Exam Cardiovascular Exam: REGULAR RHYTHM, +S1, +S2 - GI/Abdominal Exam GI & Abdominal Exam: Diminished Bowel Sounds, Soft - Rectal Exam Rectal Exam: Deferred Results - Vital Signs Recent Vital Signs: Last Vital Signs Temp 98 F 12/22/16 15:39 Pulse 83 12/22/16 15:39 Resp 18 12/22/16 15:39 BP 108/69 12/22/16 15:39 Pulse Ox 100 12/22/16 15:39 - Labs Result Diagrams: 12/21/16 21:32 12/21/16 20:57 Labs: Laboratory Results - last 24 hr 12/22/16 14:15 Urine Color Yellow Urine Clarity Clear Urine pH 6.0 Ur Specific [place] 1.013 Urine Protein Negative Urine Glucose (UA) Normal Urine Ketones Negative Urine Blood Negative Urine Nitrate Negative Urine Bilirubin Negative Urine Urobilinogen Normal Ur Leukocyte Esterase 1+ H Urine WBC (Auto) 1 Urine RBC (Auto) < 1 Ur Squamous Epith Cells 1
--- NOTE | 2016-12-22 20:22 | CP.PCM.CON ---
History of Present Illness - History of Present Illness History of Present Illness: dictated Past Patient History - Infectious Disease Hx of Infectious Diseases: None - Past Medical History & Family History Past Medical History?: Yes - Past Social History Smoking Status: Never Smoked - CARDIAC Hx Cardiac Disorders: No - PULMONARY Hx Respiratory Disorders: No - NEUROLOGICAL Hx Neurological Disorder: No - HEENT Hx HEENT Problems: No - RENAL Hx Chronic Kidney Disease: No - ENDOCRINE/METABOLIC Hx Endocrine Disorders: No - HEMATOLOGICAL/ONCOLOGICAL Hx Blood Disorders: No - INTEGUMENTARY Hx Dermatological Problems: Yes Other/Comment: Perineal wound. Rectal abcess - MUSCULOSKELETAL/RHEUMATOLOGICAL Hx Musculoskeletal Disorders: No Hx Falls: No - GASTROINTESTINAL Hx Crohn's Disease: Yes (COLOSTOMY 2016) - GENITOURINARY/GYNECOLOGICAL Hx Genitourinary Disorders: No - PSYCHIATRIC Hx Depression: Yes Hx Substance Use: No - SURGICAL HISTORY Hx Surgeries: Yes (SEE COMMENT) Other/Comment: LOOP COLOSTOMY. Perineal wound. Right upper arm PICC line. COLON RESECTION - ANESTHESIA Hx Anesthesia: Yes Hx Anesthesia Reactions: No Hx Malignant Hyperthermia: No Meds Allergies/Adverse Reactions: Allergies Allergy/AdvReac Type Severity Reaction Status Date / Time morphine Allergy ITCHING Verified 12/21/16 20:16 - Medications Medications: Current Medications Acetaminophen (Tylenol 325mg Tab) 650 mg PO Q6 PRN PRN Reason: Headache Cyanocobalamin (Vitamin B12 1000 Mcg Tab) 1,000 mcg PO DAILY [facility] Last Admin: 12/22/16 11:10 Dose: 1,000 mcg Diphenhydramine HCl (Benadryl) 25 mg IVP Q4 PRN PRN Reason: Itching / Pruritus Last Admin: 12/22/16 17:27 Dose: 25 mg Hydromorphone HCl (Dilaudid) 2 mg IVP Q4 PRN PRN Reason: Pain, severe (8-10) Last Admin: 12/22/16 17:27 Dose: 2 mg Vancomycin HCl 1,000 mg/ (Sodium Chloride) 250 mls @ 166.6 mls/hr IVPB Q12H [facility] Last Admin: 12/22/16 11:11 Dose: 166.6 mls/hr Meropenem 1 gm/ Sodium (Chloride) 100 mls @ 100 mls/hr IVPB Q8 [facility] Last Admin: 12/22/16 17:27 Dose: 100 mls/hr Mesalamine (Delzicol) 800 mg PO TID [facility] Last Admin: 12/22/16 18:36 Dose: 800 mg Ondansetron HCl (Zofran Inj) 4 mg IVP Q8 PRN PRN Reason: Nausea/Vomiting Pantoprazole Sodium (Protonix Ec Tab) 40 mg PO DAILY [facility] Last Admin: 12/22/16 11:12 Dose: 40 mg Paroxetine HCl (Paxil) 10 mg PO DAILY [facility] Last Admin: 12/22/16 11:10 Dose: 10 mg Trazodone HCl (Desyrel) 50 mg PO [facility] Results - Vital Signs Recent Vital Signs: Last Vital Signs Temp 98 F 12/22/16 15:39 Pulse 83 12/22/16 15:39 Resp 18 12/22/16 15:39 BP 108/69 12/22/16 15:39 Pulse Ox 100 12/22/16 15:39 - Labs Result Diagrams: 12/21/16 21:32 12/21/16 20:57 Labs: Laboratory Results - last 24 hr 12/22/16 14:15 Urine Color Yellow Urine Clarity Clear Urine pH 6.0 Ur Specific [place] 1.013 Urine Protein Negative Urine Glucose (UA) Normal Urine Ketones Negative Urine Blood Negative Urine Nitrate Negative Urine Bilirubin Negative Urine Urobilinogen Normal Ur Leukocyte Esterase 1+ H Urine WBC (Auto) 1 Urine RBC (Auto) < 1 Ur Squamous Epith Cells 1
--- NOTE | 2016-12-22 22:24 | CON ---
DATE: 12/22/2016 REQUESTING PHYSICIAN: Dr. Eric Barrett HISTORY OF PRESENT ILLNESS: This patient is a 21-year-old male. He has history of Crohn disease. Blair pierson came in with rectal pain and is still having purulent discharge from the perianal area. He says he had subjective fevers. Also complains of diarrhea; however, he has a colostomy as he had a partial colectomy in the past. He denies any nausea and vomiting. Denies abdominal pain. Did have diarrhea . subjective fevers and comes in with discharge from perianal area. He is painful. He has pa inful skin openings in the lower end, and he says sometimes there is feces. Also may have fistulas, unclear. He has been here multiple times. He recently went home. He had multidrug resistant organi sms in the cultures previously and was treated with IV antibiotics on several occasions. He says he w as taking Asacol and at home now and comes in with pain and discharge. Fever was 98.7. However , pulse 89, 136/80 and saturation was 98%. He comes from home. He was admitted yesterday. He has perales d multiple admissions. He has history of depression also. SOCIAL HISTORY: Negative for smoking or drinking. REVIEW OF SYSTEMS: He did complain of subjective fevers. Denies any chills. No chest pain, no shor tness of breath. He does have rectal pain and purulent drainage in the perineal area. Denies any na usea, vomiting, or any abdominal pain and he did say he was having diarrhea before, but now he has so lid stool in the colostomy bag. He denies any dysuria. Denies any joint pains. No skin rashes. No neurological problems. No psych problems reported. MEDICATIONS: He was only on medications at home. His ambulatory medicines were: He was on B12, aceta minophen and Percocet, Protonix, Paxil and Desyrel. REVIEW OF SYSTEMS: As above. PHYSICAL EXAMINATION: VITAL SIGNS: I find his temperature is 98, pulse is 83, blood pressure is 108/69, and respirations a re 18. HEENT: Head is atraumatic, normocephalic. Pupils are reacting to light. Mild pallor present. Ton miguel is moist. NECK: Supple. YARELIS is flat. LUNGS: Clear. No crackles or rales present. HEART: S1, S2 regular. ABDOMEN: Soft, nontender, no guarding, no rigidity present. Colostomy present. EXTREMITIES: Have no edema. On the back between the buttocks, there is skin excoriation with skin op enings. His skin appears very raw, red is painful to separate the 2 buttocks and to evaluate h is abscesses; however, there is some drainage noted and culture was done by the nurse before and she was the female attendant who helped me to visualize the wound. LABORATORY DATA: Noted from yesterday, hemoglobin is 8.9, WBC is 11.7, hematocrit is 28.9, platelet count is 440, neutrophils are 66.2, 25.3. Creatinine 0.7. IMPRESSION: Since he had resistant organisms before, we put him on these antibiotics and my impressio n is that if he is developing so much pain and multiple abscesses, his Crohn's need to be controlled and if Crohn's is not controlled with medications, he needs to go to a tertiary care center where he can be dealt with, with colectomy and with other medications, which may help him and if they do not, he will need total colectomy as he is not recovering, and since he has raw skin, these organisms will grow and they are already very resistant and soon there will be nothing left to treat him with. I t hink as soon as he starts to recover a little bit, he needs to get off the antibiotics and should be seen by colorectal surgeon as well as GI from a tertiary care center. As he told me he was following [facility], I think that would be the best scenario. Otherwise, [facility] or at one of the [facility]. Will follow. Santosh Daniel MD cc: [id number] TT: 12/22/2016 22:22:43 Confirmation # [id number] Dictation # [id number]
[2016-12-23] MEDS: DiphenhydrAMINE 50 mg/ml Inj IVP PRN ×6 (01:35→22:15)
[2016-12-23] MEDS: Meropenem 1 GM in Sodium Chloride 0.9% 100 ML IVPB SCH ×3 (05:07→22:17)
[2016-12-23] MEDS: Pantoprazole 40 mg EC Tab PO SCH (09:52)
--- NOTE | 2016-12-23 13:52 | RAD ---
PROCEDURE: Date of procedure: 12/22/2016 Procedure: 1. Placement of a right arm PICC with ultrasound and fluoroscopic guidance, CPT 21581 2. PICC tip confirmation with spot radiograph and is in the superior vena cava Medications: 4cc 1 percent lidocaine Total Fluoro time: 20.2 seconds Radiation: 0.64882 mGy EBL: 2 cc HISTORY: Crohn's requiring long-term IV antibiotics TECHNIQUE: Following informed consent and procedure time-out, the patient was placed supine on the interventional table and the right arm prepped and draped in the usual sterile fashion. Ultrasound showed a patent and compressible right basilic vein. After the skin was anesthetized with lidocaine, the basilic vein was accessed with micro micropuncture technique using ultrasound guidance. A guidewire was then advanced under fluoroscopic guidance into the superior vena cava. An image documenting ultrasound guidance for vascular access was permanently saved. The length of the single-lumen 4 Syrian PICC was trimmed to 33 centimeters and advanced through a peel-away sheath. The PICC was position with tip of PICC confirm a spot radiograph the superior vena cava. The PICC was secured to the patient's skin. The PICC was flushed. A biopatch and sterile dressing was applied. IMPRESSION: Placement of a single-lumen 4 Syrian PICC trimmed to 33 centimeters via right basilic vein. The tip of the PICC is confirmed with spot radiograph and is in the superior vena cava.
--- NOTE | 2016-12-23 13:53 | US ---
Date of procedure: 12/22/2016 Procedure: Ultrasound guidance for vascular access HISTORY: Crohn's requiring long-term IV antibiotics TECHNIQUE: Following informed consent and procedure time-out, the patient placed supine on the interventional table and the right arm prepped and draped in the usual sterile fashion. Ultrasound showed a patent and compressible basilic vein. After the skin was anesthetized with lidocaine, the bascilic vein was accessed with micro micropuncture technique using ultrasound guidance. An image documenting ultrasound guidance for vascular access was permanently saved. IMPRESSION: Ultrasound guidance for vascular access for placement of PICC.
--- NOTE | 2016-12-23 16:47 | CP.PCM.PN ---
Subjective - Date & Time of Evaluation Date of Evaluation: 12/23/16 Time of Evaluation: 11:20 - Subjective Subjective: clinically same Objective - Vital Signs/Intake and Output Vital Signs (last 24 hours): Temp Pulse Resp BP Pulse Ox 98.0 F 89 20 110/73 97 12/23/16 15:10 12/23/16 15:10 12/23/16 15:10 12/23/16 15:10 12/23/16 15:10 Intake and Output: 12/23/16 12/23/16 06:59 18:59 Output Total 450 Balance -450 - Medications Medications: Current Medications Acetaminophen (Tylenol 325mg Tab) 650 mg PO Q6 PRN PRN Reason: Headache Cyanocobalamin (Vitamin B12 1000 Mcg Tab) 1,000 mcg PO DAILY [facility] Last Admin: 12/23/16 09:52 Dose: 1,000 mcg Diphenhydramine HCl (Benadryl) 25 mg IVP Q4 PRN PRN Reason: Itching / Pruritus Last Admin: 12/23/16 13:53 Dose: 25 mg Hydromorphone HCl (Dilaudid) 2 mg IVP Q4 PRN PRN Reason: Pain, severe (8-10) Last Admin: 12/23/16 13:53 Dose: 2 mg Vancomycin HCl 1,000 mg/ (Sodium Chloride) 250 mls @ 166.6 mls/hr IVPB Q12H [facility] Last Admin: 12/23/16 12:25 Dose: 166.6 mls/hr Meropenem 1 gm/ Sodium (Chloride) 100 mls @ 100 mls/hr IVPB Q8 [facility] Last Admin: 12/23/16 13:53 Dose: 100 mls/hr Mesalamine (Delzicol) 800 mg PO TID [facility] Last Admin: 12/23/16 16:19 Dose: 800 mg Ondansetron HCl (Zofran Inj) 4 mg IVP Q8 PRN PRN Reason: Nausea/Vomiting Pantoprazole Sodium (Protonix Ec Tab) 40 mg PO DAILY [facility] Last Admin: 12/23/16 09:52 Dose: 40 mg Paroxetine HCl (Paxil) 10 mg PO DAILY [facility] Last Admin: 12/23/16 09:52 Dose: 10 mg Trazodone HCl (Desyrel) 50 mg PO HS [facility] Last Admin: 12/22/16 21:30 Dose: 50 mg - Labs Labs: PT 11.0 SECONDS (9.7-12.2) 12/21/16 20:57 INR 1.0 12/21/16 20:57 APTT 23 SECONDS (21-34) 12/21/16 20:57 - Constitutional Appears: Well - Head Exam Head Exam: ATRAUMATIC, NORMAL INSPECTION, NORMOCEPHALIC - Eye Exam Eye Exam: EOMI, Normal appearance, PERRL Pupil Exam: NORMAL ACCOMODATION, PERRL - ENT Exam ENT Exam: Mucous Membranes Moist, Normal Exam - Neck Exam Neck Exam: Full ROM, Normal Inspection. absent: Lymphadenopathy - Respiratory Exam Respiratory Exam: Decreased Breath Sounds - Cardiovascular Exam Cardiovascular Exam: REGULAR RHYTHM, +S1, +S2 - GI/Abdominal Exam GI & Abdominal Exam: Soft, Diminished Bowel Sounds - Rectal Exam Rectal Exam: Deferred
[2016-12-24] MEDS: DiphenhydrAMINE 50 mg/ml Inj IVP PRN ×5 (04:03→20:43)
[2016-12-24] MEDS: Meropenem 1 GM in Sodium Chloride 0.9% 100 ML IVPB SCH ×2 (05:31→13:24)
[2016-12-24] MEDS: Pantoprazole 40 mg EC Tab PO SCH (10:04)
--- NOTE | 2016-12-24 18:46 | CP.PCM.PN ---
Subjective - Date & Time of Evaluation Date of Evaluation: 12/24/16 Time of Evaluation: 12:00 - Subjective Subjective: clincally same Objective - Vital Signs/Intake and Output Vital Signs (last 24 hours): Temp Pulse Resp BP Pulse Ox 98.3 F 112 H 20 113/77 99 12/24/16 16:00 12/24/16 16:00 12/24/16 16:00 12/24/16 16:00 12/24/16 16:00 - Medications Medications: Current Medications Acetaminophen (Tylenol 325mg Tab) 650 mg PO Q6 PRN PRN Reason: Headache Cyanocobalamin (Vitamin B12 1000 Mcg Tab) 1,000 mcg PO DAILY [facility] Last Admin: 12/24/16 10:04 Dose: 1,000 mcg Diphenhydramine HCl (Benadryl) 25 mg IVP Q4 PRN PRN Reason: Itching / Pruritus Last Admin: 12/24/16 16:44 Dose: 25 mg Hydromorphone HCl (Dilaudid) 2 mg IVP Q4 PRN PRN Reason: Pain, severe (8-10) Last Admin: 12/24/16 16:45 Dose: 2 mg Vancomycin HCl 1,000 mg/ (Sodium Chloride) 250 mls @ 166.6 mls/hr IVPB Q12H [facility] Last Admin: 12/24/16 10:04 Dose: 166.6 mls/hr Meropenem 1 gm/ Sodium (Chloride) 100 mls @ 100 mls/hr IVPB Q8 [facility] Last Admin: 12/24/16 13:24 Dose: 100 mls/hr Gentamicin Sulfate 60 mg/ (Sodium Chloride) 51.5 mls @ 100 mls/hr IVPB Q8H [facility] Last Admin: 12/24/16 12:24 Dose: 100 mls/hr Mesalamine (Delzicol) 800 mg PO TID [facility] Last Admin: 12/24/16 17:26 Dose: 800 mg Ondansetron HCl (Zofran Inj) 4 mg IVP Q8 PRN PRN Reason: Nausea/Vomiting Pantoprazole Sodium (Protonix Ec Tab) 40 mg PO DAILY [facility] Last Admin: 12/24/16 10:04 Dose: 40 mg Paroxetine HCl (Paxil) 10 mg PO DAILY [facility] Last Admin: 12/24/16 10:04 Dose: 10 mg Trazodone HCl (Desyrel) 50 mg PO HS [facility] Last Admin: 12/23/16 22:59 Dose: 50 mg - Labs Labs: PT 11.0 SECONDS (9.7-12.2) 12/21/16 20:57 INR 1.0 12/21/16 20:57 APTT 23 SECONDS (21-34) 12/21/16 20:57 - Constitutional Appears: Well - Head Exam Head Exam: ATRAUMATIC, NORMAL INSPECTION, NORMOCEPHALIC - Eye Exam Eye Exam: EOMI, Normal appearance, PERRL Pupil Exam: NORMAL ACCOMODATION, PERRL - ENT Exam ENT Exam: Mucous Membranes Moist, Normal Exam - Neck Exam Neck Exam: Full ROM, Normal Inspection. absent: Lymphadenopathy - Respiratory Exam Respiratory Exam: Decreased Breath Sounds - Cardiovascular Exam Cardiovascular Exam: REGULAR RHYTHM, +S1, +S2 - GI/Abdominal Exam GI & Abdominal Exam: Soft, Diminished Bowel Sounds - Rectal Exam Rectal Exam: Deferred
--- NOTE | 2016-12-24 21:10 | CP.PCM.PN ---
Subjective - Date & Time of Evaluation Date of Evaluation: 12/24/16 Time of Evaluation: 05:00 - Subjective Subjective: dictated Objective - Vital Signs/Intake and Output Vital Signs (last 24 hours): Temp Pulse Resp BP Pulse Ox 98.3 F 112 H 20 113/77 99 12/24/16 16:00 12/24/16 16:00 12/24/16 16:00 12/24/16 16:00 12/24/16 16:00 - Medications Medications: Current Medications Acetaminophen (Tylenol 325mg Tab) 650 mg PO Q6 PRN PRN Reason: Headache Cyanocobalamin (Vitamin B12 1000 Mcg Tab) 1,000 mcg PO DAILY [facility] Last Admin: 12/24/16 10:04 Dose: 1,000 mcg Diphenhydramine HCl (Benadryl) 25 mg IVP Q4 PRN PRN Reason: Itching / Pruritus Last Admin: 12/24/16 20:43 Dose: 25 mg Hydromorphone HCl (Dilaudid) 2 mg IVP Q4 PRN PRN Reason: Pain, severe (8-10) Last Admin: 12/24/16 20:43 Dose: 2 mg Vancomycin HCl 1,000 mg/ (Sodium Chloride) 250 mls @ 166.6 mls/hr IVPB Q12H [facility] Last Admin: 12/24/16 10:04 Dose: 166.6 mls/hr Meropenem 1 gm/ Sodium (Chloride) 100 mls @ 100 mls/hr IVPB Q8 [facility] Last Admin: 12/24/16 13:24 Dose: 100 mls/hr Gentamicin Sulfate 60 mg/ (Sodium Chloride) 51.5 mls @ 100 mls/hr IVPB Q8H [facility] Last Admin: 12/24/16 20:44 Dose: 100 mls/hr Mesalamine (Delzicol) 800 mg PO TID [facility] Last Admin: 12/24/16 17:26 Dose: 800 mg Ondansetron HCl (Zofran Inj) 4 mg IVP Q8 PRN PRN Reason: Nausea/Vomiting Pantoprazole Sodium (Protonix Ec Tab) 40 mg PO DAILY [facility] Last Admin: 12/24/16 10:04 Dose: 40 mg Paroxetine HCl (Paxil) 10 mg PO DAILY [facility] Last Admin: 12/24/16 10:04 Dose: 10 mg Trazodone HCl (Desyrel) 50 mg PO HS [facility] Last Admin: 12/23/16 22:59 Dose: 50 mg - Labs Labs: PT 11.0 SECONDS (9.7-12.2) 12/21/16 20:57 INR 1.0 12/21/16 20:57 APTT 23 SECONDS (21-34) 12/21/16 20:57
[2016-12-24] MEDS: Cefepime IV 2 gm in Dextrose 2 GM/100 ML BAG IVPB SCH (22:02)
--- NOTE | 2016-12-24 22:14 | PN ---
DATE: 12/24/2016 SUBJECTIVE: I got three the phone calls today for this patient, vancomycin peak, vancomycin trough a nd then they called me that the blood cultures positive for gram-positive and the wound is positive f or MRSA. He was placed in isolation and I went to see him. He had no fever, but he was concerned ab out himself. He says he has been having a lot of diarrhea. He had empty the colostomy bag many time s. I spoke to him and I told him that I spoke with Dr. Gasca. We know that he needs to follow with the [facility] where there is a dedicated colorectal surgeon, as well as Crohn's disease special ist and needs to be monitored and, if these infections come back very often, he may need total colect pradeep and he got convinced to make an appointment with the doctor in [facility]. He does say he has less pa in and wounds are getting better, but he got disheartened when I told him that he has blood culture p ositive. We are going to wait for the ID and sensitivity. He otherwise was a little depressed, but he denied any suicidal ideation. Temperature was 98.3. PHYSICAL EXAMINATION: VITAL SIGNS: Temperature is 98.3, pulse 88, blood pressure 107/69, respirations are 20. GENERAL: He is alert, oriented x 3. HEENT: Unremarkable. NECK: Supple. YARELIS was flat. LUNGS: Clear. HEART: S1, S2 is tachycardic. ABDOMEN: Soft. Colostomy was just emptied, so it was just nothing there. EXTREMITIES: Had no edema, clubbing or cyanosis. I did not check the wounds today as I am going to continue antibiotics anyway because of the bacteremia. LABORATORY DATA: Show white count is 11. He needs new set of labs as we have not repeated them sin e 12/21 and his microcultures are showing Citrobacter and MRSA. Citrobacter is actually resistant to imipenem and is sensitive to cefepime, so I am going to change the medication to cefepime at this ti me and will continue with the vancomycin and will follow. I also put him on gentamycin. Then, will follow. IMPRESSION: He has perianal abscesses and open skin wound and has Crohn's disease and is not improvi ng. Santosh Daniel MD cc: [id number] TT: 12/24/2016 22:14:24 Confirmation # [id number] Dictation # [id number]
[2016-12-25] MEDS: DiphenhydrAMINE 50 mg/ml Inj IVP PRN ×6 (00:57→21:09)
[2016-12-25 08:07] LABS: BASO # 0.1 K/uL (0.0-0.2); BASO % 0.6 % (0.0-2.0); EOS # 0.6 K/uL (0.0-0.7); EOS % 4.2 % (0.0-4.0); HEMATOCRIT 26.9 % (35.0-51.0); LYMPH # 2.9 K/uL (1.0-4.3); LYMPH % 19.5 % (20.0-40.0); MEAN CELL VOLUME 63.8 fL (80.0-94.0); MEAN CORPUSCULAR HGB CONC 29.8 g/dL (33.0-37.0); MEAN PLATELET VOLUME 7.6 fL (7.2-11.7); MONO # 0.9 K/uL (0.0-0.8); RED CELL DISTRIBUTION WIDTH 17.3 % (11.5-14.5); WHITE BLOOD COUNT 14.7 K/uL (4.8-10.8)
[2016-12-25 08:39] LABS: CHLORIDE 101 mmol/L (98-107); POTASSIUM 4.2 mmol/L (3.6-5.2); SODIUM 137 mmol/L (132-148)
[2016-12-25 08:41] LABS: GFR AFRICAN-AMERICAN > 60
[2016-12-25 08:42] LABS: ALB/GLOB RATIO 1.1 (1.0-2.1); ALKALINE PHOSPHATASE 124 U/L (38-126); ALT/SGPT 42 U/L (21-72); AST/SGOT 37 U/L (17-59); BILIRUBIN,TOTAL 0.3 mg/dL (0.2-1.3); BLOOD UREA NITROGEN 8 mg/dL (9-20); CALCIUM 8.1 mg/dl (8.6-10.4); CARBON DIOXIDE 26 mmol/L (22-30); GLUCOSE,RANDOM 89 mg/dL (75-110); TOTAL PROTEIN 6.8 g/dL (6.3-8.3)
[2016-12-25] MEDS: Pantoprazole 40 mg EC Tab PO SCH (10:30)
[2016-12-25] MEDS: Cefepime IV 2 gm in Dextrose 2 GM/100 ML BAG IVPB SCH ×2 (10:32→22:08)
--- NOTE | 2016-12-25 13:26 | CARD ---
APPROVED REPORT EXAM: Two-dimensional and M-mode echocardiogram with Doppler and color Doppler. Other Information Quality : GoodRhythm : NSR INDICATION r/o veg M-Mode DIMENSIONS RVDd1.61 (2.1-3.2cm)Left Atrium (MM)3.07 (2.5-4.0cm) IVSd0.76 (0.7-1.1cm)Aortic Root2.74 (2.2-3.7cm) LVDd4.40 (4.0-5.6cm)Aortic Cusp Exc.2.00 (1.5-2.0cm) PWd0.76 (0.7-1.1cm)FS (%) 51 % LVDs2.17 (2.0-3.8cm)LVEF (%)82 (>50%) Aortic Valve AoV Peak Gzagehqf354.2cm/Vinnie Peak GR.6mmHg Mitral Valve MV E Liqrkryr335.3cm/sMV A Azjbnmvx01.6cm/sE/A ratio1.1 TDI E/Lateral E'0.0E/Medial E'0.0 Tricuspid Valve TR Peak Epefmmne272yl/sTR Peak Gr.72qrWyNGTR10plFk <Conclusion> normal size la,lv & ra rv. normal lv wall motion,thickness,systolic & diastolic funciton with lvef of more than 70%. normal aortic,mitral,tv & pv. mild tr & pi with normal pulmonary systolic pressures of 30 mm of hg. trivial poterior pericardial effusion. subcostal views not available.
--- NOTE | 2016-12-25 20:47 | CP.PCM.PN ---
Subjective - Date & Time of Evaluation Date of Evaluation: 12/25/16 Time of Evaluation: 10:40 - Subjective Subjective: clinically same Objective - Vital Signs/Intake and Output Vital Signs (last 24 hours): Temp Pulse Resp BP Pulse Ox 98.1 F 97 H 20 107/67 96 12/25/16 16:22 12/25/16 16:22 12/25/16 16:22 12/25/16 16:22 12/25/16 16:22 - Medications Medications: Current Medications Acetaminophen (Tylenol 325mg Tab) 650 mg PO Q6 PRN PRN Reason: Headache Cyanocobalamin (Vitamin B12 1000 Mcg Tab) 1,000 mcg PO DAILY [facility] Last Admin: 12/25/16 10:30 Dose: 1,000 mcg Diphenhydramine HCl (Benadryl) 25 mg IVP Q4 PRN PRN Reason: Itching / Pruritus Last Admin: 12/25/16 17:10 Dose: 25 mg Hydromorphone HCl (Dilaudid) 2 mg IVP Q4 PRN PRN Reason: Pain, severe (8-10) Last Admin: 12/25/16 17:10 Dose: 2 mg Vancomycin HCl 1,000 mg/ (Sodium Chloride) 250 mls @ 166.6 mls/hr IVPB Q12H [facility] Last Admin: 12/25/16 12:13 Dose: 166.6 mls/hr Gentamicin Sulfate 60 mg/ (Sodium Chloride) 51.5 mls @ 100 mls/hr IVPB Q8H [facility] Last Admin: 12/25/16 14:47 Dose: 100 mls/hr Cefepime HCl (Maxipime Iv 2 Gm Premix) 2 gm in 100 mls @ 200 mls/hr IVPB Q12H [facility] Stop: 12/29/16 22:01 Last Admin: 12/25/16 10:32 Dose: 200 mls/hr Mesalamine (Delzicol) 800 mg PO TID [facility] Last Admin: 12/25/16 17:10 Dose: 800 mg Ondansetron HCl (Zofran Inj) 4 mg IVP Q8 PRN PRN Reason: Nausea/Vomiting Pantoprazole Sodium (Protonix Ec Tab) 40 mg PO DAILY [facility] Last Admin: 12/25/16 10:30 Dose: 40 mg Paroxetine HCl (Paxil) 10 mg PO DAILY [facility] Last Admin: 12/25/16 10:30 Dose: 10 mg Trazodone HCl (Desyrel) 50 mg PO HS [facility] Last Admin: 12/24/16 22:02 Dose: 50 mg - Labs Labs: 12/25/16 07:57 12/25/16 07:57 PT 11.0 SECONDS (9.7-12.2) 12/21/16 20:57 INR 1.0 12/21/16 20:57 APTT 23 SECONDS (21-34) 12/21/16 20:57 - Constitutional Appears: Well - Head Exam Head Exam: ATRAUMATIC, NORMAL INSPECTION, NORMOCEPHALIC - Eye Exam Eye Exam: EOMI, Normal appearance, PERRL Pupil Exam: NORMAL ACCOMODATION, PERRL - ENT Exam ENT Exam: Mucous Membranes Moist, Normal Exam - Neck Exam Neck Exam: Full ROM, Normal Inspection. absent: Lymphadenopathy - Respiratory Exam Respiratory Exam: Decreased Breath Sounds - Cardiovascular Exam Cardiovascular Exam: REGULAR RHYTHM, +S1, +S2 - GI/Abdominal Exam GI & Abdominal Exam: Soft, Diminished Bowel Sounds - Rectal Exam Rectal Exam: Deferred
--- NOTE | 2016-12-25 21:10 | CP.PCM.PN ---
Subjective - Date & Time of Evaluation Date of Evaluation: 12/25/16 Time of Evaluation: 04:00 - Subjective Subjective: dictated Objective - Vital Signs/Intake and Output Vital Signs (last 24 hours): Temp Pulse Resp BP Pulse Ox 98.1 F 97 H 20 107/67 96 12/25/16 16:22 12/25/16 16:22 12/25/16 16:22 12/25/16 16:22 12/25/16 16:22 - Medications Medications: Current Medications Acetaminophen (Tylenol 325mg Tab) 650 mg PO Q6 PRN PRN Reason: Headache Cyanocobalamin (Vitamin B12 1000 Mcg Tab) 1,000 mcg PO DAILY [facility] Last Admin: 12/25/16 10:30 Dose: 1,000 mcg Diphenhydramine HCl (Benadryl) 25 mg IVP Q4 PRN PRN Reason: Itching / Pruritus Last Admin: 12/25/16 21:09 Dose: 25 mg Hydromorphone HCl (Dilaudid) 2 mg IVP Q4 PRN PRN Reason: Pain, severe (8-10) Last Admin: 12/25/16 21:09 Dose: 2 mg Vancomycin HCl 1,000 mg/ (Sodium Chloride) 250 mls @ 166.6 mls/hr IVPB Q12H [facility] Last Admin: 12/25/16 12:13 Dose: 166.6 mls/hr Gentamicin Sulfate 60 mg/ (Sodium Chloride) 51.5 mls @ 100 mls/hr IVPB Q8H [facility] Last Admin: 12/25/16 21:09 Dose: 100 mls/hr Cefepime HCl (Maxipime Iv 2 Gm Premix) 2 gm in 100 mls @ 200 mls/hr IVPB Q12H [facility] Stop: 12/29/16 22:01 Last Admin: 12/25/16 10:32 Dose: 200 mls/hr Mesalamine (Delzicol) 800 mg PO TID [facility] Last Admin: 12/25/16 17:10 Dose: 800 mg Ondansetron HCl (Zofran Inj) 4 mg IVP Q8 PRN PRN Reason: Nausea/Vomiting Pantoprazole Sodium (Protonix Ec Tab) 40 mg PO DAILY [facility] Last Admin: 12/25/16 10:30 Dose: 40 mg Paroxetine HCl (Paxil) 10 mg PO DAILY [facility] Last Admin: 12/25/16 10:30 Dose: 10 mg Trazodone HCl (Desyrel) 50 mg PO HS [facility] Last Admin: 12/24/16 22:02 Dose: 50 mg - Labs Labs: 12/25/16 07:57 12/25/16 07:57 PT 11.0 SECONDS (9.7-12.2) 12/21/16 20:57 INR 1.0 12/21/16 20:57 APTT 23 SECONDS (21-34) 12/21/16 20:57
--- NOTE | 2016-12-25 21:42 | PN ---
DATE: 12/25/2016 SUBJECTIVE: The patient was seen today. He was feeling a little better. He still had complaints of diarrhea and having a lot of volume of the stool; however, I checked it, it was not watery, it was s olid. He also said that in the middle of the night he had to go to the bathroom and he had bowel mov ement from the bottom with blood mixed in, a lot of blood came out, which may be part of a fistula wh ich he has. He has also 2 resistant organisms which are growing from the skin lesions that he has an d I had recommended it sent to be evaluated by surgeon again and I was told by Dr. Eric Barrett who tapia d the floor by the nurse that the surgeon says there is nothing surgical and he is signing out. PHYSICAL EXAMINATION: VITAL SIGNS: T-max is 98.1, pulse is 97, blood pressure 107/67, respirations are 20. HEENT: Head is atraumatic, normocephalic. NECK: Supple. LUNGS: Clear. HEART: S1, S2 is regular. He has tattoo argueta on his chest as well as the both shoulders. ABDOMEN: Soft, nontender. Colostomy is functioning. He has perineal skin lesions. EXTREMITIES: Have no edema, clubbing, or cyanosis. LABORATORY DATA: His white count is 14.7 today, hemoglobin is 8, hematocrit 26.9, platelet count is 400. BUN is 8, and creatinine 0.6. He is on gentamicin also 1.7, peak is 4. He is also on Maxipime because Citrobacter was more sensitive to the Maxipime, so we have ordered that. The patient's repe at cultures are negative. I think this is most likely from the wound and will continue antibiotics a t this time. We had started the antibiotic right from the day he came in, which is on ____so he has already receiv ed 5 days from 12/21 to 12/25, 5 days. He needs 9 more days and I also want to see the echo report as vidhi pierson has bacteremia. IMPRESSION: He white count is still high he has Crohn's disease. Will monitor hemoglobin tomorrow a s he did say he had bloody stools and has fistulous tract from the Crohn's. I am not sure what shoul d be the end point, whether he needs steroids or that should be evaluated by GI. Will follow. Santosh Daniel MD cc: [id number] TT: 12/25/2016 21:42:00 Confirmation # [id number] Dictation # [id number]
[2016-12-26] MEDS: DiphenhydrAMINE 50 mg/ml Inj IVP PRN ×6 (01:14→22:06)
[2016-12-26 07:56] LABS: BASO # 0.1 K/uL (0.0-0.2); BASO % 0.5 % (0.0-2.0); EOS # 0.6 K/uL (0.0-0.7); EOS % 4.7 % (0.0-4.0); HEMATOCRIT 27.1 % (35.0-51.0); LYMPH # 3.1 K/uL (1.0-4.3); LYMPH % 22.4 % (20.0-40.0); MEAN CELL VOLUME 63.7 fL (80.0-94.0); MEAN CORPUSCULAR HEMOGLOBIN 18.9 pg (27.0-31.0); MEAN CORPUSCULAR HGB CONC 29.7 g/dL (33.0-37.0); MONO # 1.1 K/uL (0.0-0.8); MONO % 7.9 % (0.0-10.0); RED CELL DISTRIBUTION WIDTH 17.5 % (11.5-14.5); WHITE BLOOD COUNT 13.7 K/uL (4.8-10.8)
[2016-12-26] MEDS ORDERED: DiphenhydrAMINE 50 mg/ml Inj IVP PRN (08:01)
[2016-12-26 08:02] LABS: CHLORIDE 97 mmol/L (98-107); SODIUM 136 mmol/L (132-148)
[2016-12-26 08:03] LABS: POTASSIUM 3.9 mmol/L (3.6-5.2)
[2016-12-26 08:05] LABS: GFR AFRICAN-AMERICAN > 60
[2016-12-26 08:06] LABS: BLOOD UREA NITROGEN 9 mg/dL (9-20); CALCIUM 7.9 mg/dl (8.6-10.4); CARBON DIOXIDE 28 mmol/L (22-30); GLUCOSE,RANDOM 85 mg/dL (75-110)
[2016-12-26] MEDS: Pantoprazole 40 mg EC Tab PO SCH (09:16)
[2016-12-26] MEDS: Cefepime IV 2 gm in Dextrose 2 GM/100 ML BAG IVPB SCH ×2 (09:17→22:06)
--- NOTE | 2016-12-26 09:20 | CP.PCM.PN ---
Subjective - Date & Time of Evaluation Date of Evaluation: 12/26/16 Time of Evaluation: 11:20 - Subjective Subjective: clinically same Objective - Vital Signs/Intake and Output Vital Signs (last 24 hours): Temp Pulse Resp BP Pulse Ox 98.1 F 96 H 20 104/72 98 12/26/16 07:14 12/26/16 07:14 12/26/16 07:14 12/26/16 07:14 12/26/16 07:14 - Medications Medications: Current Medications Acetaminophen (Tylenol 325mg Tab) 650 mg PO Q6 PRN PRN Reason: Headache Cyanocobalamin (Vitamin B12 1000 Mcg Tab) 1,000 mcg PO DAILY [facility] Last Admin: 12/26/16 09:16 Dose: 1,000 mcg Diphenhydramine HCl (Benadryl) 25 mg IVP Q4H PRN PRN Reason: Other Last Admin: 12/26/16 09:17 Dose: 25 mg Hydromorphone HCl (Dilaudid) 2 mg IVP Q4H PRN PRN Reason: Pain, severe (8-10) Last Admin: 12/26/16 09:17 Dose: 2 mg Vancomycin HCl 1,000 mg/ (Sodium Chloride) 250 mls @ 166.6 mls/hr IVPB Q12H [facility] Last Admin: 12/26/16 01:12 Dose: 166.6 mls/hr Gentamicin Sulfate 60 mg/ (Sodium Chloride) 51.5 mls @ 100 mls/hr IVPB Q8H [facility] Last Admin: 12/26/16 05:15 Dose: 100 mls/hr Cefepime HCl (Maxipime Iv 2 Gm Premix) 2 gm in 100 mls @ 200 mls/hr IVPB Q12H [facility] Stop: 12/29/16 22:01 Last Admin: 12/26/16 09:17 Dose: 200 mls/hr Mesalamine (Delzicol) 800 mg PO TID [facility] Last Admin: 12/26/16 09:16 Dose: 800 mg Ondansetron HCl (Zofran Inj) 4 mg IVP Q8 PRN PRN Reason: Nausea/Vomiting Pantoprazole Sodium (Protonix Ec Tab) 40 mg PO DAILY [facility] Last Admin: 12/26/16 09:16 Dose: 40 mg Paroxetine HCl (Paxil) 10 mg PO DAILY [facility] Last Admin: 12/26/16 09:16 Dose: 10 mg Trazodone HCl (Desyrel) 50 mg PO HS [facility] Last Admin: 12/25/16 22:12 Dose: 50 mg - Labs Labs: 12/26/16 07:32 12/26/16 07:32 PT 11.0 SECONDS (9.7-12.2) 12/21/16 20:57 INR 1.0 12/21/16 20:57 APTT 23 SECONDS (21-34) 12/21/16 20:57 - Constitutional Appears: Well - Head Exam Head Exam: ATRAUMATIC, NORMAL INSPECTION, NORMOCEPHALIC - Eye Exam Eye Exam: EOMI, Normal appearance, PERRL Pupil Exam: NORMAL ACCOMODATION, PERRL - ENT Exam ENT Exam: Mucous Membranes Moist, Normal Exam - Neck Exam Neck Exam: Full ROM, Normal Inspection. absent: Lymphadenopathy - Respiratory Exam Respiratory Exam: Decreased Breath Sounds - Cardiovascular Exam Cardiovascular Exam: REGULAR RHYTHM, +S1, +S2 - GI/Abdominal Exam GI & Abdominal Exam: Soft, Diminished Bowel Sounds - Rectal Exam Rectal Exam: Deferred
[2016-12-26] MEDS ORDERED: Iohexol 240 (50 ml) PO ONE (14:15)
[2016-12-26] MEDS ORDERED: Iohexol 350mg/ml 100 ML ONE (19:04)
[2016-12-27] MEDS: DiphenhydrAMINE 50 mg/ml Inj IVP PRN ×5 (03:08→20:39)
[2016-12-27] MEDS: Cefepime IV 2 gm in Dextrose 2 GM/100 ML BAG IVPB SCH ×2 (10:53→21:16)
[2016-12-27] MEDS: Pantoprazole 40 mg EC Tab PO SCH (10:54)
--- NOTE | 2016-12-27 11:09 | CP.PCM.PN ---
Subjective - Date & Time of Evaluation Date of Evaluation: 12/27/16 Time of Evaluation: 11:07 - Subjective Subjective: Surgery: Dr. Taylor Patient clinically remains the same. Patient complains of axillary pain on the left. Patient reports drainage from the wound. He denies f/c/n/v. He reports tolerating diet. He states his colostomy leaks still. Patient is s/p CT abd/ pelvis. Objective - Vital Signs/Intake and Output Vital Signs (last 24 hours): Temp Pulse Resp BP Pulse Ox 98.2 F 107 H 20 100/60 97 12/27/16 08:10 12/27/16 08:10 12/27/16 08:10 12/27/16 08:10 12/27/16 08:10 - Medications Medications: Current Medications Acetaminophen (Tylenol 325mg Tab) 650 mg PO Q6 PRN PRN Reason: Headache Cyanocobalamin (Vitamin B12 1000 Mcg Tab) 1,000 mcg PO DAILY [facility] Last Admin: 12/27/16 10:54 Dose: 1,000 mcg Diphenhydramine HCl (Benadryl) 25 mg IVP Q4H PRN PRN Reason: Other Last Admin: 12/27/16 07:44 Dose: 25 mg Hydromorphone HCl (Dilaudid) 2 mg IVP Q4H PRN PRN Reason: Pain, severe (8-10) Last Admin: 12/27/16 07:43 Dose: 2 mg Vancomycin HCl 1,000 mg/ (Sodium Chloride) 250 mls @ 166.6 mls/hr IVPB Q12H [facility] Last Admin: 12/26/16 23:20 Dose: 166.6 mls/hr Cefepime HCl (Maxipime Iv 2 Gm Premix) 2 gm in 100 mls @ 200 mls/hr IVPB Q12H [facility] Stop: 12/29/16 22:01 Last Admin: 12/27/16 10:53 Dose: 200 mls/hr Mesalamine (Delzicol) 800 mg PO TID [facility] Last Admin: 12/27/16 10:53 Dose: 800 mg Ondansetron HCl (Zofran Inj) 4 mg IVP Q8 PRN PRN Reason: Nausea/Vomiting Pantoprazole Sodium (Protonix Ec Tab) 40 mg PO DAILY [facility] Last Admin: 12/27/16 10:54 Dose: 40 mg Paroxetine HCl (Paxil) 10 mg PO DAILY [facility] Last Admin: 12/27/16 10:54 Dose: 10 mg Trazodone HCl (Desyrel) 50 mg PO HS [facility] Last Admin: 12/26/16 22:06 Dose: 50 mg - Labs Labs: 12/26/16 07:32 12/26/16 07:32 PT 11.0 SECONDS (9.7-12.2) 12/21/16 20:57 INR 1.0 12/21/16 20:57 APTT 23 SECONDS (21-34) 12/21/16 20:57 - Constitutional Appears: Well, Non-toxic, No Acute Distress - Head Exam Head Exam: ATRAUMATIC, NORMOCEPHALIC - Eye Exam Eye Exam: EOMI, Normal appearance - ENT Exam ENT Exam: Mucous Membranes Moist - Respiratory Exam Respiratory Exam: NORMAL BREATHING PATTERN. absent: Respiratory Distress - Cardiovascular Exam Cardiovascular Exam: REGULAR RHYTHM. absent: Tachycardia - GI/Abdominal Exam GI & Abdominal Exam: Soft. absent: Distended, Tenderness Additional comments: colostomy bag is completely full of stool - Extremities Exam Additional comments: left axilla w/ open drainin wound of serous type fluid, inferior area of induration which is tender to touch. - Neurological Exam Neurological Exam: Alert, Awake, Oriented x3 - Psychiatric Exam Psychiatric exam: Normal Affect, Normal Mood - Skin Skin Exam: Dry, Normal Color, Warm Assessment and Plan - Assessment and Plan (Free Text) Assessment: 21 y/o male w/ Crohn's colitis Plan: -no surgical intervention at this time -warm compress to axilla -CT shows no new inflammation in the nitza-rectal area just thickened tissue, no need for I&D -patient should not allow colostomy bag to fill and empty more frequently -d/w Dr. Claudia ANGUIANOjeffery PGY1
[2016-12-27] MEDS ORDERED: Oxycodone/Acetaminophen 5/325 mg Tab PO PRN (11:15)
--- NOTE | 2016-12-27 11:41 | CT ---
PROCEDURE: CT Abdomen and Pelvis with contrast HISTORY: Leaking colostomy. Relevant medical history: Crohn's disease COMPARISON: None. TECHNIQUE: Contrast dose: 100 cc Omnipaque 350 Radiation dose: Total exam DLP = 330.04 mGy-cm. This CT exam was performed using one or more of the following dose reduction techniques: Automated exposure control, adjustment of the mA and/or kV according to patient size, and/or use of iterative reconstruction technique. FINDINGS: LOWER THORAX: Unremarkable. LIVER: Hepatic steatosis. No focal masses. No intrahepatic bile duct dilatation or perihepatic ascites. GALLBLADDER AND BILE DUCTS: Unremarkable. PANCREAS: Unremarkable. No gross lesion or ductal dilatation. SPLEEN: Unremarkable. ADRENALS: Unremarkable. No mass. KIDNEYS AND URETERS: Unremarkable. No hydronephrosis. No solid mass. VASCULATURE: Unremarkable. No aortic aneurysm. BOWEL: Evidence of prior right colon resection. Unremarkable left abdominal ostomy without evidence of obstruction or incarceration. APPENDIX: Prior appendectomy. PERITONEUM: Unremarkable. No free fluid. No free air. LYMPH NODES: Unremarkable. No enlarged lymph nodes. BLADDER: Unremarkable. REPRODUCTIVE: Unremarkable. BONES: No acute fracture. OTHER FINDINGS: fistulous track left perirectal anal region. This appears to be diminished in size and cons acuity compared to the prior study. IMPRESSION: No acute findings related to/accounting for the clinical presentation. Additional benign and/or incidental findings described above. Concordant results (preliminary interpretation) provided by [facility]. Procedure Completed: 20:39. Preliminary ([facility]) Report: Dictated and Authenticated: 21:13. Final Interpretation: 11:34. December 27, 2016.
--- NOTE | 2016-12-27 11:50 | CP.PCM.PN ---
Subjective - Date & Time of Evaluation Date of Evaluation: 12/27/16 Time of Evaluation: 11:20 - Subjective Subjective: clinically same Objective - Vital Signs/Intake and Output Vital Signs (last 24 hours): Temp Pulse Resp BP Pulse Ox 98.2 F 107 H 20 100/60 97 12/27/16 08:10 12/27/16 08:10 12/27/16 08:10 12/27/16 08:10 12/27/16 08:10 - Medications Medications: Current Medications Acetaminophen (Tylenol 325mg Tab) 650 mg PO Q6 PRN PRN Reason: Headache Cyanocobalamin (Vitamin B12 1000 Mcg Tab) 1,000 mcg PO DAILY [facility] Last Admin: 12/27/16 10:54 Dose: 1,000 mcg Diphenhydramine HCl (Benadryl) 25 mg IVP Q4H PRN PRN Reason: Other Last Admin: 12/27/16 07:44 Dose: 25 mg Hydromorphone HCl (Dilaudid) 2 mg IVP Q4H PRN PRN Reason: Pain, severe (8-10) Last Admin: 12/27/16 07:43 Dose: 2 mg Vancomycin HCl 1,000 mg/ (Sodium Chloride) 250 mls @ 166.6 mls/hr IVPB Q12H [facility] Last Admin: 12/26/16 23:20 Dose: 166.6 mls/hr Cefepime HCl (Maxipime Iv 2 Gm Premix) 2 gm in 100 mls @ 200 mls/hr IVPB Q12H [facility] Stop: 12/29/16 22:01 Last Admin: 12/27/16 10:53 Dose: 200 mls/hr Mesalamine (Delzicol) 800 mg PO TID [facility] Last Admin: 12/27/16 10:53 Dose: 800 mg Ondansetron HCl (Zofran Inj) 4 mg IVP Q8 PRN PRN Reason: Nausea/Vomiting Oxycodone/Acetaminophen (Percocet 5/325 Mg Tab) 2 tab PO Q4H PRN PRN Reason: Pain, moderate (4-7) Stop: 12/30/16 11:16 Pantoprazole Sodium (Protonix Ec Tab) 40 mg PO DAILY [facility] Last Admin: 12/27/16 10:54 Dose: 40 mg Paroxetine HCl (Paxil) 10 mg PO DAILY [facility] Last Admin: 12/27/16 10:54 Dose: 10 mg Trazodone HCl (Desyrel) 50 mg PO HS [facility] Last Admin: 12/26/16 22:06 Dose: 50 mg - Labs Labs: 12/26/16 07:32 12/26/16 07:32 PT 11.0 SECONDS (9.7-12.2) 12/21/16 20:57 INR 1.0 12/21/16 20:57 APTT 23 SECONDS (21-34) 12/21/16 20:57 - Constitutional Appears: Well - Head Exam Head Exam: ATRAUMATIC, NORMAL INSPECTION, NORMOCEPHALIC - Eye Exam Eye Exam: EOMI, Normal appearance, PERRL Pupil Exam: NORMAL ACCOMODATION, PERRL - ENT Exam ENT Exam: Mucous Membranes Moist, Normal Exam - Neck Exam Neck Exam: Full ROM, Normal Inspection. absent: Lymphadenopathy - Respiratory Exam Respiratory Exam: Decreased Breath Sounds - Cardiovascular Exam Cardiovascular Exam: REGULAR RHYTHM, +S1, +S2 - GI/Abdominal Exam GI & Abdominal Exam: Soft, Diminished Bowel Sounds - Rectal Exam Rectal Exam: Deferred
[2016-12-28] MEDS: DiphenhydrAMINE 50 mg/ml Inj IVP PRN ×6 (00:27→21:57)
[2016-12-28] MEDS: Cefepime IV 2 gm in Dextrose 2 GM/100 ML BAG IVPB SCH ×2 (09:32→21:57)
[2016-12-28] MEDS: Pantoprazole 40 mg EC Tab PO SCH (09:32)
--- NOTE | 2016-12-28 12:47 | CP.PCM.PN ---
Subjective - Date & Time of Evaluation Date of Evaluation: 12/28/16 Time of Evaluation: 11:20 - Subjective Subjective: clinically same Objective - Vital Signs/Intake and Output Vital Signs (last 24 hours): Temp Pulse Resp BP Pulse Ox 97.7 F 83 17 105/66 100 12/28/16 07:00 12/28/16 07:00 12/28/16 07:00 12/28/16 07:00 12/28/16 07:00 Intake and Output: 12/28/16 12/28/16 06:59 18:59 Output Total 2450 Balance -2450 - Medications Medications: Current Medications Acetaminophen (Tylenol 325mg Tab) 650 mg PO Q6 PRN PRN Reason: Headache Cyanocobalamin (Vitamin B12 1000 Mcg Tab) 1,000 mcg PO DAILY [facility] Last Admin: 12/28/16 09:32 Dose: 1,000 mcg Diphenhydramine HCl (Benadryl) 25 mg IVP Q4H PRN PRN Reason: Other Last Admin: 12/28/16 09:32 Dose: 25 mg Hydromorphone HCl (Dilaudid) 2 mg IVP Q4H PRN PRN Reason: Pain, severe (8-10) Last Admin: 12/28/16 09:32 Dose: 2 mg Vancomycin HCl 1,000 mg/ (Sodium Chloride) 250 mls @ 166.6 mls/hr IVPB Q12H [facility] Last Admin: 12/28/16 12:03 Dose: 166.6 mls/hr Cefepime HCl (Maxipime Iv 2 Gm Premix) 2 gm in 100 mls @ 200 mls/hr IVPB Q12H [facility] Stop: 12/29/16 22:01 Last Admin: 12/28/16 09:32 Dose: 200 mls/hr Mesalamine (Delzicol) 800 mg PO TID [facility] Last Admin: 12/28/16 09:31 Dose: 800 mg Ondansetron HCl (Zofran Inj) 4 mg IVP Q8 PRN PRN Reason: Nausea/Vomiting Oxycodone/Acetaminophen (Percocet 5/325 Mg Tab) 2 tab PO Q4H PRN PRN Reason: Pain, moderate (4-7) Stop: 12/30/16 11:16 Pantoprazole Sodium (Protonix Ec Tab) 40 mg PO DAILY [facility] Last Admin: 12/28/16 09:32 Dose: 40 mg Paroxetine HCl (Paxil) 10 mg PO DAILY [facility] Last Admin: 12/28/16 09:31 Dose: 10 mg Trazodone HCl (Desyrel) 50 mg PO HS [facility] Last Admin: 12/27/16 21:16 Dose: 50 mg - Labs Labs: 12/26/16 07:32 12/26/16 07:32 PT 11.0 SECONDS (9.7-12.2) 12/21/16 20:57 INR 1.0 12/21/16 20:57 APTT 23 SECONDS (21-34) 12/21/16 20:57 - Constitutional Appears: Well - Head Exam Head Exam: ATRAUMATIC, NORMAL INSPECTION, NORMOCEPHALIC - Eye Exam Eye Exam: EOMI, Normal appearance, PERRL Pupil Exam: NORMAL ACCOMODATION, PERRL - ENT Exam ENT Exam: Mucous Membranes Moist, Normal Exam - Neck Exam Neck Exam: Full ROM, Normal Inspection. absent: Lymphadenopathy - Respiratory Exam Respiratory Exam: Decreased Breath Sounds - Cardiovascular Exam Cardiovascular Exam: REGULAR RHYTHM, +S1, +S2 - GI/Abdominal Exam GI & Abdominal Exam: Soft, Diminished Bowel Sounds - Rectal Exam Rectal Exam: Deferred
[2016-12-29] MEDS: DiphenhydrAMINE 50 mg/ml Inj IVP PRN ×6 (01:59→22:06)
[2016-12-29] MEDS: Cefepime IV 2 gm in Dextrose 2 GM/100 ML BAG IVPB SCH ×2 (09:38→22:05)
[2016-12-29] MEDS: Pantoprazole 40 mg EC Tab PO SCH (09:38)
[2016-12-29] MEDS ORDERED: Lidocaine 2% Inj (20ml) ONE (11:16)
--- NOTE | 2016-12-29 11:28 | PCM.SURG1 ---
Surgeon's Initial Post Op Note - Surgeon's Notes Surgeon: Enrique Franklin MD Swatch Folder: NONE Type of Anesthesia: Local Pre-Operative Diagnosis: Crohn's disease Operative Findings: Right arm picc in SVC. Post-Operative Diagnosis: Crohn's Operation Performed: Right arm picc exchange. A new single lumen picc placed, 34 cm. Tip in SVC. Specimen/Specimens Removed: Old picc Estimated Blood Loss: EBL {In ML}: 0 Blood Products Given: N/A Drains Used: No Drains Post-Op Condition: Fair Date of Surgery/Procedure: 12/29/16 Time of Surgery/Procedure: 11:25
--- NOTE | 2016-12-29 11:46 | SPECPROC ---
PROCEDURE: Date of procedure: 12/29/2016 Procedure: 1. Placement of a right arm PICC with ultrasound and fluoroscopic guidance, CPT 28252 2. PICC tip confirmation with spot radiograph and is in the superior vena cava Medications: 4cc 1 percent lidocaine History Crohn's disease, nonfunctional right arm PICC TECHNIQUE: Following informed consent and procedure time-out, the patient was placed supine on the interventional table and the right arm and existing PICC were prepped and draped in the usual sterile fashion. The existing PICC was removed over a guidewire. The length of a new the single-lumen 4 Bengali PICC was trimmed to 34 centimeters and advanced through a peel-away sheath. The PICC was position with tip of PICC confirm a spot radiograph the superior vena cava. The PICC was secured to the patient's skin. The PICC was flushed. A biopatch and sterile dressing was applied. IMPRESSION: Placement of a new single-lumen 4 Bengali PICC trimmed to 34 centimeters via right basilic vein. The tip of the PICC is confirmed with spot radiograph and is in the superior vena cava.
--- NOTE | 2016-12-29 13:59 | CP.PCM.PN ---
Subjective - Date & Time of Evaluation Date of Evaluation: 12/29/16 Time of Evaluation: 11:20 - Subjective Subjective: clinically same Objective - Vital Signs/Intake and Output Vital Signs (last 24 hours): Temp Pulse Resp BP Pulse Ox 97.8 F 83 19 97/62 L 97 12/29/16 07:00 12/29/16 07:00 12/29/16 07:00 12/29/16 07:00 12/29/16 07:00 Intake and Output: 12/29/16 12/29/16 06:59 18:59 Output Total 1500 Balance -1500 - Medications Medications: Current Medications Acetaminophen (Tylenol 325mg Tab) 650 mg PO Q6 PRN PRN Reason: Headache Cyanocobalamin (Vitamin B12 1000 Mcg Tab) 1,000 mcg PO DAILY [facility] Last Admin: 12/29/16 09:38 Dose: 1,000 mcg Diphenhydramine HCl (Benadryl) 25 mg IVP Q4H PRN PRN Reason: Other Last Admin: 12/29/16 10:06 Dose: 25 mg Hydromorphone HCl (Dilaudid) 2 mg IVP Q4H PRN PRN Reason: Pain, severe (8-10) Last Admin: 12/29/16 10:07 Dose: 2 mg Vancomycin HCl 1,000 mg/ (Sodium Chloride) 250 mls @ 166.6 mls/hr IVPB Q12H [facility] Last Admin: 12/29/16 13:56 Dose: 166.6 mls/hr Cefepime HCl (Maxipime Iv 2 Gm Premix) 2 gm in 100 mls @ 200 mls/hr IVPB Q12H [facility] Stop: 12/29/16 22:01 Last Admin: 12/29/16 09:38 Dose: 200 mls/hr Mesalamine (Delzicol) 800 mg PO TID [facility] Last Admin: 12/29/16 13:56 Dose: 800 mg Ondansetron HCl (Zofran Inj) 4 mg IVP Q8 PRN PRN Reason: Nausea/Vomiting Oxycodone/Acetaminophen (Percocet 5/325 Mg Tab) 2 tab PO Q4H PRN PRN Reason: Pain, moderate (4-7) Stop: 12/30/16 11:16 Pantoprazole Sodium (Protonix Ec Tab) 40 mg PO DAILY [facility] Last Admin: 12/29/16 09:38 Dose: 40 mg Paroxetine HCl (Paxil) 10 mg PO DAILY [facility] Last Admin: 12/29/16 09:38 Dose: 10 mg Trazodone HCl (Desyrel) 50 mg PO HS [facility] Last Admin: 12/28/16 21:55 Dose: 50 mg - Labs Labs: 12/26/16 07:32 12/26/16 07:32 PT 11.0 SECONDS (9.7-12.2) 12/21/16 20:57 INR 1.0 12/21/16 20:57 APTT 23 SECONDS (21-34) 12/21/16 20:57 - Constitutional Appears: Well - Head Exam Head Exam: ATRAUMATIC, NORMAL INSPECTION, NORMOCEPHALIC - Eye Exam Eye Exam: EOMI, Normal appearance, PERRL Pupil Exam: NORMAL ACCOMODATION, PERRL - ENT Exam ENT Exam: Mucous Membranes Moist, Normal Exam - Neck Exam Neck Exam: Full ROM, Normal Inspection. absent: Lymphadenopathy - Respiratory Exam Respiratory Exam: Decreased Breath Sounds - Cardiovascular Exam Cardiovascular Exam: REGULAR RHYTHM, +S1, +S2 - GI/Abdominal Exam GI & Abdominal Exam: Soft, Diminished Bowel Sounds - Rectal Exam Rectal Exam: Deferred
[2016-12-29 14:34] LABS: BASO # 0.1 K/uL (0.0-0.2); BASO % 0.8 % (0.0-2.0); EOS # 0.8 K/uL (0.0-0.7); EOS % 5.6 % (0.0-4.0); HEMATOCRIT 26.7 % (35.0-51.0); LYMPH # 3.1 K/uL (1.0-4.3); LYMPH % 21.9 % (20.0-40.0); MEAN CELL VOLUME 62.9 fL (80.0-94.0); MEAN CORPUSCULAR HEMOGLOBIN 18.9 pg (27.0-31.0); MEAN PLATELET VOLUME 7.5 fL (7.2-11.7); MONO % 7.1 % (0.0-10.0); RED CELL DISTRIBUTION WIDTH 16.9 % (11.5-14.5)
[2016-12-29 14:53] LABS: CHLORIDE 96 mmol/L (98-107); POTASSIUM 3.9 mmol/L (3.6-5.2); SODIUM 132 mmol/L (132-148)
[2016-12-29 14:55] LABS: GFR AFRICAN-AMERICAN > 60
[2016-12-29 14:56] LABS: ALB/GLOB RATIO 0.9 (1.0-2.1); ALKALINE PHOSPHATASE 124 U/L (38-126); ALT/SGPT 39 U/L (21-72); AST/SGOT 36 U/L (17-59); BILIRUBIN,TOTAL < 0.1 mg/dL (0.2-1.3); BLOOD UREA NITROGEN 8 mg/dL (9-20); CALCIUM 8.8 mg/dl (8.6-10.4); CARBON DIOXIDE 30 mmol/L (22-30); GLUCOSE,RANDOM 73 mg/dL (75-110); TOTAL PROTEIN 7.6 g/dL (6.3-8.3)
--- NOTE | 2016-12-29 17:37 | CP.PCM.PN ---
Subjective - Date & Time of Evaluation Date of Evaluation: 12/29/16 Time of Evaluation: 10:00 - Subjective Subjective: PGY2 on medicine Dr. Barrett service: Pt seen and examined at bedside this morning. Pt reports left axillary pain and drainage from his rectal wound. He also complains his colostomy bag leaks near his umbilicus. Patient also wants his pain medication. Objective - Vital Signs/Intake and Output Vital Signs (last 24 hours): Temp Pulse Resp BP Pulse Ox 98.2 F 84 18 103/68 100 12/29/16 15:00 12/29/16 15:00 12/29/16 15:00 12/29/16 15:00 12/29/16 15:00 Intake and Output: 12/29/16 12/29/16 06:59 18:59 Output Total 1500 Balance -1500 - Medications Medications: Current Medications Acetaminophen (Tylenol 325mg Tab) 650 mg PO Q6 PRN PRN Reason: Headache Cyanocobalamin (Vitamin B12 1000 Mcg Tab) 1,000 mcg PO DAILY [facility] Last Admin: 12/29/16 09:38 Dose: 1,000 mcg Diphenhydramine HCl (Benadryl) 25 mg IVP Q4H PRN PRN Reason: Other Last Admin: 12/29/16 14:01 Dose: 25 mg Hydromorphone HCl (Dilaudid) 2 mg IVP Q4H PRN PRN Reason: Pain, severe (8-10) Last Admin: 12/29/16 14:01 Dose: 2 mg Vancomycin HCl 1,000 mg/ (Sodium Chloride) 250 mls @ 166.6 mls/hr IVPB Q12H [facility] Last Admin: 12/29/16 13:56 Dose: 166.6 mls/hr Cefepime HCl (Maxipime Iv 2 Gm Premix) 2 gm in 100 mls @ 200 mls/hr IVPB Q12H [facility] Stop: 12/29/16 22:01 Last Admin: 12/29/16 09:38 Dose: 200 mls/hr Mesalamine (Delzicol) 800 mg PO TID [facility] Last Admin: 12/29/16 13:56 Dose: 800 mg Ondansetron HCl (Zofran Inj) 4 mg IVP Q8 PRN PRN Reason: Nausea/Vomiting Oxycodone/Acetaminophen (Percocet 5/325 Mg Tab) 2 tab PO Q4H PRN PRN Reason: Pain, moderate (4-7) Stop: 12/30/16 11:16 Pantoprazole Sodium (Protonix Ec Tab) 40 mg PO DAILY [facility] Last Admin: 12/29/16 09:38 Dose: 40 mg Paroxetine HCl (Paxil) 10 mg PO DAILY [facility] Last Admin: 12/29/16 09:38 Dose: 10 mg Trazodone HCl (Desyrel) 50 mg PO HS [facility] Last Admin: 12/28/16 21:55 Dose: 50 mg - Labs Labs: 12/29/16 14:29 12/29/16 14:29 PT 11.0 SECONDS (9.7-12.2) 12/21/16 20:57 INR 1.0 12/21/16 20:57 APTT 23 SECONDS (21-34) 12/21/16 20:57 - Constitutional Appears: Non-toxic, No Acute Distress - Head Exam Head Exam: NORMAL INSPECTION, NORMOCEPHALIC - Eye Exam Eye Exam: Normal appearance Pupil Exam: NORMAL ACCOMODATION - Respiratory Exam Respiratory Exam: Clear to Ausculation Bilateral, NORMAL BREATHING PATTERN - Cardiovascular Exam Cardiovascular Exam: REGULAR RHYTHM, +S1, +S2. absent: Gallop, Rubs - GI/Abdominal Exam GI & Abdominal Exam: Soft, Normal Bowel Sounds Additional comments: Colostomy bag with brown stool. mild opening observe on medial side of tape - Extremities Exam Extremities Exam: absent: Pedal Edema, Tenderness - Neurological Exam Neurological Exam: Alert, Awake, Oriented x3 - Psychiatric Exam Psychiatric exam: Normal Mood - Skin Skin Exam: Dry, Intact Additional comments: Patient in pain and refuse exam of anal area. Assessment and Plan - Assessment and Plan (Free Text) Assessment: Perianal abscess Dr. Daniel consulted, help appreciated. Dr. Taylor consulted, help appreciated. Culture showed MRSA and Citrobacter diversus. Initial blood culture showed coag negative Staph. Repeat blood culture negative. CT showed no new inflammation, surgery intervention at this time. Cefepime 2g IV q12H started on 12/24. Vancomycin 1g IV q12H started on 12/22. Crohn's colitis Mesalamine 800mg PO TID. Axillary pain No surgery intervention at this time. Warm compress to axilla. Prophylactic measure SCD, Protonix.
--- NOTE | 2016-12-29 21:54 | CP.PCM.PN ---
Subjective - Date & Time of Evaluation Date of Evaluation: 12/29/16 Time of Evaluation: 04:15 - Subjective Subjective: dictated Objective - Vital Signs/Intake and Output Vital Signs (last 24 hours): Temp Pulse Resp BP Pulse Ox 98.2 F 84 18 103/68 100 12/29/16 15:00 12/29/16 15:00 12/29/16 15:00 12/29/16 15:00 12/29/16 15:00 - Medications Medications: Current Medications Acetaminophen (Tylenol 325mg Tab) 650 mg PO Q6 PRN PRN Reason: Headache Cyanocobalamin (Vitamin B12 1000 Mcg Tab) 1,000 mcg PO DAILY [facility] Last Admin: 12/29/16 09:38 Dose: 1,000 mcg Diphenhydramine HCl (Benadryl) 25 mg IVP Q4H PRN PRN Reason: Other Last Admin: 12/29/16 18:14 Dose: 25 mg Hydromorphone HCl (Dilaudid) 2 mg IVP Q4H PRN PRN Reason: Pain, severe (8-10) Last Admin: 12/29/16 18:15 Dose: 2 mg Vancomycin HCl 1,000 mg/ (Sodium Chloride) 250 mls @ 166.6 mls/hr IVPB Q12H [facility] Last Admin: 12/29/16 13:56 Dose: 166.6 mls/hr Cefepime HCl (Maxipime Iv 2 Gm Premix) 2 gm in 100 mls @ 200 mls/hr IVPB Q12H [facility] Stop: 12/29/16 22:01 Last Admin: 12/29/16 09:38 Dose: 200 mls/hr Cefepime HCl 2 gm/ Sodium (Chloride) 50 mls @ 100 mls/hr IVPB Q12H [facility] Mesalamine (Delzicol) 800 mg PO TID [facility] Last Admin: 12/29/16 18:14 Dose: 800 mg Ondansetron HCl (Zofran Inj) 4 mg IVP Q8 PRN PRN Reason: Nausea/Vomiting Oxycodone/Acetaminophen (Percocet 5/325 Mg Tab) 2 tab PO Q4H PRN PRN Reason: Pain, moderate (4-7) Stop: 12/30/16 11:16 Pantoprazole Sodium (Protonix Ec Tab) 40 mg PO DAILY [facility] Last Admin: 12/29/16 09:38 Dose: 40 mg Paroxetine HCl (Paxil) 10 mg PO DAILY [facility] Last Admin: 12/29/16 09:38 Dose: 10 mg Prednisone (Prednisone Tab) 60 mg PO DAILY [facility] Trazodone HCl (Desyrel) 50 mg PO [facility] Last Admin: 12/28/16 21:55 Dose: 50 mg - Labs Labs: 12/29/16 14:29 12/29/16 14:29 PT 11.0 SECONDS (9.7-12.2) 12/21/16 20:57 INR 1.0 12/21/16 20:57 APTT 23 SECONDS (21-34) 12/21/16 20:57
[2016-12-29] MEDS ORDERED: Cefepime 2 GM in Sodium Chloride 0.9% 50 ML IVPB SCH (22:00)
--- NOTE | 2016-12-29 22:27 | PN ---
DATE: 12/29/2016 SUBJECTIVE: I went to see the patient today and he complained of left leg axilla pain. He was not a ble to stretch arm full and he had a small abscess draining some purulent material and some blood. I took a culture from there and the nurse was there, we sent it. He otherwise was complaining of havi ng a lot of bowel movement and it seems that his bowel had a lot of food particles similar to what he may have eaten and his bag had a small drainage. He says he was still having some bleeding from bel ow, but he looked clinically better. VITAL SIGNS: Temperature is 98.2, pulse 84, blood pressure 103/68, respirations 18. I have told him that he should go to a tertiary care center to get treatment as his Crohn's needs to be controlled. Today I am going to add prednisone 60 mg which should be tapered by 10 mg as I had di scussed this with GI, ____ and I think the inflammatory part of Crohn's can be taken care of by sukumar tello. I discussed with him, but somebody needs to taper and it needs to be tapered by 10 mg. A lso will see if within 1 week, he gets some relief from this. He really needs to go to a [facility] for control of Crohn's. PHYSICAL EXAMINATION: HEENT: Otherwise, he is awake, alert. LUNGS: Clear. HEART: S1, S2 regular. ABDOMEN: Soft. Colostomy is functioning. Since it has to be frequently changed it is developing so me excoriation around site. BACK: The ulceration seems to be a little less in between the buttock area. I could not see his fro nt. EXTREMITIES: No edema, clubbing or cyanosis. LABORATORY DATA: Noted. Labs show white count is 14, hemoglobin 8, hematocrit 26.7, platelet count is 398. Maxipime was , I have renewed. Sodium is 132, potassium 3.9, chloride 96, BUN is 30, creatinine is 0.7. His cultures, we will follow the axillary culture. Will continue vancomycin and cefepime, he came in on so it is like 9 days, he just needs antibio tics for 5 more days. He is also advised the blood cultures are negative now from 12/24. He has a PIC C line. He has acute Crohn's exacerbation along with multiple abscesses and I have ____ to add steroids at th is time. Santosh Daniel MD cc: [id number] TT: 12/29/2016 22:26:31 Confirmation # [id number] Dictation # [id number]
[2016-12-30] MEDS: DiphenhydrAMINE 50 mg/ml Inj IVP PRN ×6 (01:59→22:40)
--- NOTE | 2016-12-30 07:28 | CP.PCM.PN ---
Subjective - Date & Time of Evaluation Date of Evaluation: 12/30/16 Time of Evaluation: 10:00 - Subjective Subjective: PGY2 on medicine Dr. Barrett service: Pt seen and examined at bedside this morning. Pt reports persistent left axila and perianal pain, both with drainage. No acute events overnight. Pt was able to get new colostomy bag yesterday. Objective - Vital Signs/Intake and Output Vital Signs (last 24 hours): Temp Pulse Resp BP Pulse Ox 98 F 94 H 18 103/59 L 99 12/30/16 00:00 12/30/16 00:00 12/30/16 00:00 12/30/16 00:00 12/30/16 00:00 Intake and Output: 12/30/16 12/30/16 06:59 18:59 Output Total 550 Balance -550 - Medications Medications: Current Medications Acetaminophen (Tylenol 325mg Tab) 650 mg PO Q6 PRN PRN Reason: Headache Cyanocobalamin (Vitamin B12 1000 Mcg Tab) 1,000 mcg PO DAILY [facility] Last Admin: 12/29/16 09:38 Dose: 1,000 mcg Diphenhydramine HCl (Benadryl) 25 mg IVP Q4H PRN PRN Reason: Other Last Admin: 12/30/16 06:16 Dose: 25 mg Hydromorphone HCl (Dilaudid) 2 mg IVP Q4H PRN PRN Reason: Pain, severe (8-10) Last Admin: 12/30/16 06:16 Dose: 2 mg Vancomycin HCl 1,000 mg/ (Sodium Chloride) 250 mls @ 166.6 mls/hr IVPB Q12H [facility] Last Admin: 12/29/16 23:44 Dose: 166.6 mls/hr Cefepime HCl (Maxipime Iv 2 Gm Premix) 2 gm in 100 mls @ 200 mls/hr IVPB Q12H [facility] Stop: 01/03/17 22:01 Last Admin: 12/29/16 22:05 Dose: 200 mls/hr Mesalamine (Delzicol) 800 mg PO TID [facility] Last Admin: 12/29/16 18:14 Dose: 800 mg Ondansetron HCl (Zofran Inj) 4 mg IVP Q8 PRN PRN Reason: Nausea/Vomiting Oxycodone/Acetaminophen (Percocet 5/325 Mg Tab) 2 tab PO Q4H PRN PRN Reason: Pain, moderate (4-7) Stop: 12/30/16 11:16 Pantoprazole Sodium (Protonix Ec Tab) 40 mg PO DAILY [facility] Last Admin: 12/29/16 09:38 Dose: 40 mg Paroxetine HCl (Paxil) 10 mg PO DAILY [facility] Last Admin: 12/29/16 09:38 Dose: 10 mg Prednisone (Prednisone Tab) 60 mg PO DAILY [facility] Trazodone HCl (Desyrel) 50 mg PO HS [facility] Last Admin: 12/29/16 22:05 Dose: 50 mg - Labs Labs: 12/29/16 14:29 12/29/16 14:29 PT 11.0 SECONDS (9.7-12.2) 12/21/16 20:57 INR 1.0 12/21/16 20:57 APTT 23 SECONDS (21-34) 12/21/16 20:57 - Constitutional Appears: Non-toxic, No Acute Distress - Head Exam Head Exam: NORMAL INSPECTION, NORMOCEPHALIC - Eye Exam Eye Exam: Normal appearance Pupil Exam: NORMAL ACCOMODATION - Respiratory Exam Respiratory Exam: Clear to Ausculation Bilateral, NORMAL BREATHING PATTERN - Cardiovascular Exam Cardiovascular Exam: REGULAR RHYTHM, +S1, +S2. absent: Gallop, Rubs - GI/Abdominal Exam GI & Abdominal Exam: Soft, Normal Bowel Sounds - Extremities Exam Additional comments: left axilla with purulent drainage and erythema and tender to palpation - Neurological Exam Neurological Exam: Alert, Awake, Oriented x3 - Psychiatric Exam Psychiatric exam: Normal Mood - Skin Skin Exam: Intact Assessment and Plan - Assessment and Plan (Free Text) Assessment: Perianal abscess Dr. Daniel consulted, help appreciated. Dr. Tayolr consulted, help appreciated. Culture showed MRSA and Citrobacter diversus. Initial blood culture showed coag negative Staph. Repeat blood culture negative. CT showed no new inflammation, surgery intervention at this time. Cefepime 2g IV q12H started on 12/24. Vancomycin 1g IV q12H started on 12/22. Crohn's colitis Mesalamine 800mg PO TID. Prednisone 60mg PO daily per Dr. Daniel. Axillary pain OR tomorrow per surgical team, NPO overnight. F/U wound culture per Dr. Daniel. Prophylactic measure SCD, Protonix.
[2016-12-30 07:30] LABS: BASO # 0.1 K/uL (0.0-0.2); BASO % 0.8 % (0.0-2.0); EOS # 0.7 K/uL (0.0-0.7); EOS % 6.9 % (0.0-4.0); HEMATOCRIT 25.1 % (35.0-51.0); LYMPH % 28.5 % (20.0-40.0); MEAN CELL VOLUME 63.2 fL (80.0-94.0); MEAN CORPUSCULAR HEMOGLOBIN 18.6 pg (27.0-31.0); MEAN CORPUSCULAR HGB CONC 29.4 g/dL (33.0-37.0); MEAN PLATELET VOLUME 7.6 fL (7.2-11.7); MONO # 0.8 K/uL (0.0-0.8); MONO % 7.3 % (0.0-10.0); RED CELL DISTRIBUTION WIDTH 17.3 % (11.5-14.5); WHITE BLOOD COUNT 10.5 K/uL (4.8-10.8)
[2016-12-30 08:52] LABS: CHLORIDE 99 mmol/L (98-107)
[2016-12-30 08:53] LABS: POTASSIUM 5.4 mmol/L (3.6-5.2); SODIUM 136 mmol/L (132-148)
[2016-12-30 08:55] LABS: ALB/GLOB RATIO 0.9 (1.0-2.1); ALKALINE PHOSPHATASE 96 U/L (38-126); ALT/SGPT 36 U/L (21-72); AST/SGOT 31 U/L (17-59); BILIRUBIN,TOTAL 0.4 mg/dL (0.2-1.3); BLOOD UREA NITROGEN 13 mg/dL (9-20); CARBON DIOXIDE 28 mmol/L (22-30); GFR AFRICAN-AMERICAN > 60; TOTAL PROTEIN 6.4 g/dL (6.3-8.3)
[2016-12-30 08:56] LABS: GLUCOSE,RANDOM 81 mg/dL (75-110)
[2016-12-30 10:04] LABS: CALCIUM 4.4 mg/dl (8.6-10.4)
[2016-12-30] MEDS: Cefepime IV 2 gm in Dextrose 2 GM/100 ML BAG IVPB SCH ×2 (10:34→21:42)
[2016-12-30] MEDS: Pantoprazole 40 mg EC Tab PO SCH (10:35)
[2016-12-30] MEDS ORDERED: Calcium Gluconate 4.65 mEq/10 ml Inj IVP ONE (10:55)
[2016-12-30 13:33] LABS: MAGNESIUM 2.1 mg/dL (1.6-2.3); PHOSPHOROUS 3.2 mg/dL (2.5-4.5)
--- NOTE | 2016-12-30 14:21 | CP.PCM.PN ---
<Odin Merritt - Last Filed: 12/30/16 14:17> Subjective - Date & Time of Evaluation Date of Evaluation: 12/30/16 Time of Evaluation: 14:18 - Subjective Subjective: Surgery: Dr. Taylor Patient complains of left axilla pain. He denies f/c. Reports Dr. Daniel obtained culture from axilla wound. No acute events. Objective - Vital Signs/Intake and Output Vital Signs (last 24 hours): Temp Pulse Resp BP Pulse Ox 97.7 F 77 20 94/63 L 97 12/30/16 07:00 12/30/16 07:00 12/30/16 07:00 12/30/16 07:00 12/30/16 07:00 Intake and Output: 12/30/16 12/30/16 06:59 18:59 Output Total 550 Balance -550 - Medications Medications: Current Medications Acetaminophen (Tylenol 325mg Tab) 650 mg PO Q6 PRN PRN Reason: Headache Cyanocobalamin (Vitamin B12 1000 Mcg Tab) 1,000 mcg PO DAILY [facility] Last Admin: 12/30/16 10:35 Dose: 1,000 mcg Diphenhydramine HCl (Benadryl) 25 mg IVP Q4H PRN PRN Reason: Other Last Admin: 12/30/16 10:35 Dose: 25 mg Hydromorphone HCl (Dilaudid) 2 mg IVP Q4H PRN PRN Reason: Pain, severe (8-10) Last Admin: 12/30/16 10:36 Dose: 2 mg Vancomycin HCl 1,000 mg/ (Sodium Chloride) 250 mls @ 166.6 mls/hr IVPB Q12H [facility] Last Admin: 12/30/16 13:21 Dose: 166.6 mls/hr Cefepime HCl (Maxipime Iv 2 Gm Premix) 2 gm in 100 mls @ 200 mls/hr IVPB Q12H [facility] Stop: 01/03/17 22:01 Last Admin: 12/30/16 10:34 Dose: 200 mls/hr Mesalamine (Delzicol) 800 mg PO TID [facility] Last Admin: 12/30/16 10:35 Dose: 800 mg Ondansetron HCl (Zofran Inj) 4 mg IVP Q8 PRN PRN Reason: Nausea/Vomiting Pantoprazole Sodium (Protonix Ec Tab) 40 mg PO DAILY [facility] Last Admin: 12/30/16 10:35 Dose: 40 mg Paroxetine HCl (Paxil) 10 mg PO DAILY [facility] Last Admin: 12/30/16 10:35 Dose: 10 mg Prednisone (Prednisone Tab) 60 mg PO DAILY [facility] Last Admin: 12/30/16 10:35 Dose: 60 mg Trazodone HCl (Desyrel) 50 mg PO HS [facility] Last Admin: 12/29/16 22:05 Dose: 50 mg - Labs Labs: 12/30/16 07:18 12/30/16 07:18 PT 11.0 SECONDS (9.7-12.2) 12/21/16 20:57 INR 1.0 12/21/16 20:57 APTT 23 SECONDS (21-34) 12/21/16 20:57 - Constitutional Appears: Well, Non-toxic, No Acute Distress - Head Exam Head Exam: ATRAUMATIC, NORMOCEPHALIC - Eye Exam Eye Exam: EOMI, Normal appearance - ENT Exam ENT Exam: Mucous Membranes Moist - Respiratory Exam Respiratory Exam: NORMAL BREATHING PATTERN. absent: Respiratory Distress - Cardiovascular Exam Cardiovascular Exam: REGULAR RHYTHM. absent: Tachycardia - Skin Additional comments: Left axilla with chronic linear wound in skin fold with ingrowing hair and purulent drainage. Inferior to wound is a fluctuant fluid collection, with overlying erythema. The abscess measures about 2x2 cm and is tender to touch. Assessment and Plan - Assessment and Plan (Free Text) Assessment: 21 y/o male w/ axilla abscess, left Plan: -plan for OR tomorrow afternoon -NPO MN -am labs -cont abx -d/w patient -further recs per Dr. Taylor AKite PGY1 <Temo Taylor - Last Filed: 12/31/16 22:16> Objective - Vital Signs/Intake and Output Vital Signs (last 24 hours): Temp Pulse Resp BP Pulse Ox 97.9 F 87 20 120/77 97 12/31/16 16:15 12/31/16 16:15 12/31/16 16:15 12/31/16 16:15 12/31/16 16:15 Intake and Output: 12/31/16 01/01/17 18:59 06:59 Intake Total 450 Output Total 500 Balance -50 - Medications Medications: Current Medications Acetaminophen (Tylenol 325mg Tab) 650 mg PO Q6 PRN PRN Reason: Headache Cyanocobalamin (Vitamin B12 1000 Mcg Tab) 1,000 mcg PO DAILY [facility] Last Admin: 12/31/16 10:03 Dose: 1,000 mcg Diphenhydramine HCl (Benadryl) 25 mg IVP Q4H PRN PRN Reason: Other Last Admin: 12/31/16 16:19 Dose: 25 mg Hydromorphone HCl (Dilaudid) 2 mg IVP Q4H PRN PRN Reason: Pain, severe (8-10) Last Admin: 12/31/16 16:19 Dose: 2 mg Vancomycin HCl 1,000 mg/ (Sodium Chloride) 250 mls @ 166.6 mls/hr IVPB Q12H [facility] Last Admin: 12/31/16 10:49 Dose: 166.6 mls/hr Cefepime HCl (Maxipime Iv 2 Gm Premix) 2 gm in 100 mls @ 200 mls/hr IVPB Q12H [facility] Stop: 01/03/17 22:01 Last Admin: 12/31/16 22:10 Dose: 200 mls/hr Mesalamine (Delzicol) 800 mg PO TID [facility] Last Admin: 12/31/16 18:56 Dose: 800 mg Ondansetron HCl (Zofran Inj) 4 mg IVP Q8 PRN PRN Reason: Nausea/Vomiting Pantoprazole Sodium (Protonix Ec Tab) 40 mg PO DAILY [facility] Last Admin: 12/31/16 10:02 Dose: 40 mg Paroxetine HCl (Paxil) 10 mg PO DAILY [facility] Last Admin: 12/31/16 10:03 Dose: 10 mg Prednisone (Prednisone Tab) 60 mg PO DAILY [facility] Last Admin: 12/31/16 10:02 Dose: 60 mg Trazodone HCl (Desyrel) 50 mg PO HS [facility] Last Admin: 12/31/16 22:10 Dose: 50 mg - Labs Labs: 12/31/16 04:00 12/31/16 11:43 PT 11.2 SECONDS (9.7-12.2) 12/31/16 11:43 INR 1.0 12/31/16 11:43 APTT 28 SECONDS (21-34) 12/31/16 11:43 Attending/Attestation - Attestation I have personally seen and examined this patient.: Yes I have fully participated in the care of the patient.: Yes I have reviewed all pertinent clinical information, including history, physical exam and plan: Yes Notes (Text): 12/31/16 22:14 Pt was seen and examined at bedside on 12/30/16 Agree with above note and assessment. Pt with Crohns dis with Perineal non healing wound Left axillary abscess OR for I & D and Debridement of Left axillary abscess and wound. Plan d/w pt in detail Consent Risk and benefit explained in detail. 12/31/16 22:15
--- NOTE | 2016-12-30 15:52 | CP.PCM.PN ---
Subjective - Date & Time of Evaluation Date of Evaluation: 12/30/16 Time of Evaluation: 12:00 - Subjective Subjective: clinically same Objective - Vital Signs/Intake and Output Vital Signs (last 24 hours): Temp Pulse Resp BP Pulse Ox 97.7 F 77 20 94/63 L 97 12/30/16 07:00 12/30/16 07:00 12/30/16 07:00 12/30/16 07:00 12/30/16 07:00 Intake and Output: 12/30/16 12/30/16 06:59 18:59 Output Total 550 Balance -550 - Medications Medications: Current Medications Acetaminophen (Tylenol 325mg Tab) 650 mg PO Q6 PRN PRN Reason: Headache Cyanocobalamin (Vitamin B12 1000 Mcg Tab) 1,000 mcg PO DAILY [facility] Last Admin: 12/30/16 10:35 Dose: 1,000 mcg Diphenhydramine HCl (Benadryl) 25 mg IVP Q4H PRN PRN Reason: Other Last Admin: 12/30/16 14:57 Dose: 25 mg Hydromorphone HCl (Dilaudid) 2 mg IVP Q4H PRN PRN Reason: Pain, severe (8-10) Last Admin: 12/30/16 14:56 Dose: 2 mg Vancomycin HCl 1,000 mg/ (Sodium Chloride) 250 mls @ 166.6 mls/hr IVPB Q12H [facility] Last Admin: 12/30/16 13:21 Dose: 166.6 mls/hr Cefepime HCl (Maxipime Iv 2 Gm Premix) 2 gm in 100 mls @ 200 mls/hr IVPB Q12H [facility] Stop: 01/03/17 22:01 Last Admin: 12/30/16 10:34 Dose: 200 mls/hr Mesalamine (Delzicol) 800 mg PO TID [facility] Last Admin: 12/30/16 14:55 Dose: 800 mg Ondansetron HCl (Zofran Inj) 4 mg IVP Q8 PRN PRN Reason: Nausea/Vomiting Pantoprazole Sodium (Protonix Ec Tab) 40 mg PO DAILY [facility] Last Admin: 12/30/16 10:35 Dose: 40 mg Paroxetine HCl (Paxil) 10 mg PO DAILY [facility] Last Admin: 12/30/16 10:35 Dose: 10 mg Prednisone (Prednisone Tab) 60 mg PO DAILY [facility] Last Admin: 12/30/16 10:35 Dose: 60 mg Trazodone HCl (Desyrel) 50 mg PO HS [facility] Last Admin: 12/29/16 22:05 Dose: 50 mg - Labs Labs: 12/30/16 07:18 12/30/16 07:18 PT 11.0 SECONDS (9.7-12.2) 12/21/16 20:57 INR 1.0 12/21/16 20:57 APTT 23 SECONDS (21-34) 12/21/16 20:57 - Constitutional Appears: Well - Head Exam Head Exam: ATRAUMATIC, NORMAL INSPECTION, NORMOCEPHALIC - Eye Exam Eye Exam: EOMI, Normal appearance, PERRL Pupil Exam: NORMAL ACCOMODATION, PERRL - ENT Exam ENT Exam: Mucous Membranes Moist, Normal Exam - Neck Exam Neck Exam: Full ROM, Normal Inspection. absent: Lymphadenopathy - Respiratory Exam Respiratory Exam: Decreased Breath Sounds - Cardiovascular Exam Cardiovascular Exam: REGULAR RHYTHM, +S1, +S2 - GI/Abdominal Exam GI & Abdominal Exam: Soft, Diminished Bowel Sounds - Rectal Exam Rectal Exam: Deferred
[2016-12-30] MEDS ORDERED: Sod Polystyrene Sulf 15 gm/60 ml Oral Susp PO ONE (20:00)
--- NOTE | 2016-12-30 22:07 | CP.PCM.PN ---
Subjective - Date & Time of Evaluation Date of Evaluation: 12/30/16 Time of Evaluation: 02:15 - Subjective Subjective: dictated Objective - Vital Signs/Intake and Output Vital Signs (last 24 hours): Temp Pulse Resp BP Pulse Ox 98.4 F 103 H 20 101/67 98 12/30/16 15:07 12/30/16 15:07 12/30/16 15:07 12/30/16 15:07 12/30/16 15:07 Intake and Output: 12/30/16 12/31/16 18:59 06:59 Intake Total 610 Balance 610 - Medications Medications: Current Medications Acetaminophen (Tylenol 325mg Tab) 650 mg PO Q6 PRN PRN Reason: Headache Cyanocobalamin (Vitamin B12 1000 Mcg Tab) 1,000 mcg PO DAILY [facility] Last Admin: 12/30/16 10:35 Dose: 1,000 mcg Diphenhydramine HCl (Benadryl) 25 mg IVP Q4H PRN PRN Reason: Other Last Admin: 12/30/16 18:55 Dose: 25 mg Hydromorphone HCl (Dilaudid) 2 mg IVP Q4H PRN PRN Reason: Pain, severe (8-10) Last Admin: 12/30/16 18:54 Dose: 2 mg Vancomycin HCl 1,000 mg/ (Sodium Chloride) 250 mls @ 166.6 mls/hr IVPB Q12H [facility] Last Admin: 12/30/16 13:21 Dose: 166.6 mls/hr Cefepime HCl (Maxipime Iv 2 Gm Premix) 2 gm in 100 mls @ 200 mls/hr IVPB Q12H [facility] Stop: 01/03/17 22:01 Last Admin: 12/30/16 21:42 Dose: 200 mls/hr Mesalamine (Delzicol) 800 mg PO TID [facility] Last Admin: 12/30/16 18:54 Dose: 800 mg Ondansetron HCl (Zofran Inj) 4 mg IVP Q8 PRN PRN Reason: Nausea/Vomiting Pantoprazole Sodium (Protonix Ec Tab) 40 mg PO DAILY [facility] Last Admin: 12/30/16 10:35 Dose: 40 mg Paroxetine HCl (Paxil) 10 mg PO DAILY [facility] Last Admin: 12/30/16 10:35 Dose: 10 mg Prednisone (Prednisone Tab) 60 mg PO DAILY [facility] Last Admin: 12/30/16 10:35 Dose: 60 mg Trazodone HCl (Desyrel) 50 mg PO HS [facility] Last Admin: 12/29/16 22:05 Dose: 50 mg - Labs Labs: 12/30/16 07:18 12/30/16 07:18 PT 11.0 SECONDS (9.7-12.2) 12/21/16 20:57 INR 1.0 12/21/16 20:57 APTT 23 SECONDS (21-34) 12/21/16 20:57
--- NOTE | 2016-12-31 02:34 | PN ---
DATE: 12/30/2016 SUBJECTIVE: The patient was saying today that he might be going to the OR for an I and D of his left axilla wound. He is still complaining of left axillary pain. I have also started him on steroids b ecause I think his inflammatory problems from the Crohn's are persisting, hence, leading to all these problems and these steroids can be tapered by 10 mg every week and should follow up with a GI for fu rther stopping these steroids. PHYSICAL EXAMINATION: VITAL SIGNS: T-max is 98.4, pulse 103, blood pressure is 101/67, respirations are 20. HEENT: Head is atraumatic, normocephalic. NECK: Supple. LUNGS: Clear. No crackles or rales present. HEART: S1, S2 regular. ABDOMEN: Soft, nontender, no guarding, no rigidity present, has colostomy bag present. EXTREMITIES: He has perirectal abscesses. Has left axillary abscess. Extremities have no edema. LABORATORY DATA: White count is 10.5, hemoglobin has dropped to 7.4, hematocrit 25.1, platelet count is 352. He did say he was bleeding from the bottom yesterday. Potassium is 5.4 and will note if he is getting any potassium and his needs to be repeated as it was reported to be low, so we will follow. MEDICATIONS: He is on vancomycin and he did receive Kayexalate for hypertension. IMPRESSION: Crohn's disease with this sequela and has abscesses and maybe fistula and has bleeding f rom there. PLAN: He needs aggressive gastrointestinal and wound culture is pending for the left axillary absces s, which I took yesterday and he did come in and had MRSA in the wound and had coagulase-negative sta ph in the blood. Will follow. Santosh Daniel MD cc: [id number] TT: 12/31/2016 02:33:37 Confirmation # [id number] Dictation # [id number]
[2016-12-31] MEDS: DiphenhydrAMINE 50 mg/ml Inj IVP PRN ×6 (02:39→23:00)
--- NOTE | 2016-12-31 09:59 | CP.PCM.PN ---
Subjective - Date & Time of Evaluation Date of Evaluation: 12/31/16 Time of Evaluation: 09:00 - Subjective Subjective: PGY2 on medicine Dr. Barrett service: Pt seen and examined at bedside this morning. Pt complains persistent pain of this left axila and perianal wound. No acute events overnight. Pt NPO for axila procedure with surgery. Objective - Vital Signs/Intake and Output Vital Signs (last 24 hours): Temp Pulse Resp BP Pulse Ox 97.7 F 84 18 109/71 98 12/31/16 07:00 12/31/16 07:00 12/31/16 07:00 12/31/16 07:00 12/31/16 07:00 Intake and Output: 12/31/16 12/31/16 06:59 18:59 Output Total 300 Balance -300 - Medications Medications: Current Medications Acetaminophen (Tylenol 325mg Tab) 650 mg PO Q6 PRN PRN Reason: Headache Cyanocobalamin (Vitamin B12 1000 Mcg Tab) 1,000 mcg PO DAILY [facility] Last Admin: 12/30/16 10:35 Dose: 1,000 mcg Diphenhydramine HCl (Benadryl) 25 mg IVP Q4H PRN PRN Reason: Other Last Admin: 12/31/16 06:40 Dose: 25 mg Hydromorphone HCl (Dilaudid) 2 mg IVP Q4H PRN PRN Reason: Pain, severe (8-10) Last Admin: 12/31/16 06:40 Dose: 2 mg Vancomycin HCl 1,000 mg/ (Sodium Chloride) 250 mls @ 166.6 mls/hr IVPB Q12H [facility] Last Admin: 12/30/16 22:41 Dose: 166.6 mls/hr Cefepime HCl (Maxipime Iv 2 Gm Premix) 2 gm in 100 mls @ 200 mls/hr IVPB Q12H [facility] Stop: 01/03/17 22:01 Last Admin: 12/30/16 21:42 Dose: 200 mls/hr Mesalamine (Delzicol) 800 mg PO TID [facility] Last Admin: 12/30/16 18:54 Dose: 800 mg Ondansetron HCl (Zofran Inj) 4 mg IVP Q8 PRN PRN Reason: Nausea/Vomiting Pantoprazole Sodium (Protonix Ec Tab) 40 mg PO DAILY [facility] Last Admin: 12/30/16 10:35 Dose: 40 mg Paroxetine HCl (Paxil) 10 mg PO DAILY [facility] Last Admin: 12/30/16 10:35 Dose: 10 mg Prednisone (Prednisone Tab) 60 mg PO DAILY [facility] Last Admin: 12/30/16 10:35 Dose: 60 mg Trazodone HCl (Desyrel) 50 mg PO HS [facility] Last Admin: 12/30/16 22:40 Dose: 50 mg - Labs Labs: 12/30/16 07:18 12/30/16 07:18 PT 11.0 SECONDS (9.7-12.2) 12/21/16 20:57 INR 1.0 12/21/16 20:57 APTT 23 SECONDS (21-34) 12/21/16 20:57 - Constitutional Appears: Non-toxic, No Acute Distress, Chronically Ill - Eye Exam Eye Exam: Normal appearance - Respiratory Exam Respiratory Exam: Clear to Ausculation Bilateral, NORMAL BREATHING PATTERN. absent: Rhonchi, Wheezes - Cardiovascular Exam Cardiovascular Exam: REGULAR RHYTHM, +S1, +S2. absent: Gallop, Rubs - GI/Abdominal Exam GI & Abdominal Exam: Soft, Normal Bowel Sounds Additional comments: colostomy bag full - Neurological Exam Neurological Exam: Alert, Awake, Oriented x3 - Psychiatric Exam Psychiatric exam: Normal Mood - Skin Skin Exam: Dry, Intact Assessment and Plan - Assessment and Plan (Free Text) Assessment: Perianal abscess Dr. Daniel consulted, help appreciated. Dr. Taylor consulted, help appreciated. Culture showed MRSA and Citrobacter diversus. Initial blood culture showed coag negative Staph. Repeat blood culture negative. CT showed no new inflammation, surgery intervention at this time. Cefepime 2g IV q12H started on 12/24. Vancomycin 1g IV q12H started on 12/22. Crohn's colitis Mesalamine 800mg PO TID. Prednisone 60mg PO daily per Dr. Daniel. Axillary pain OR today per surgical team. Wound culture grew gram positive cocci. F/U wound culture final report. Prophylactic measure SCD, Protonix. Management per Dr. Barrett
[2016-12-31] MEDS: Pantoprazole 40 mg EC Tab PO SCH (10:02)
[2016-12-31] MEDS: Cefepime IV 2 gm in Dextrose 2 GM/100 ML BAG IVPB SCH ×2 (10:03→22:10)
[2016-12-31 12:07] LABS: BASO # 0.1 K/uL (0.0-0.2); BASO % 0.6 % (0.0-2.0); EOS # 0.6 K/uL (0.0-0.7); EOS % 4.9 % (0.0-4.0); LYMPH # 2.8 K/uL (1.0-4.3); MEAN CELL VOLUME 63.4 fL (80.0-94.0); MEAN CORPUSCULAR HEMOGLOBIN 18.5 pg (27.0-31.0); MEAN CORPUSCULAR HGB CONC 29.2 g/dL (33.0-37.0); MEAN PLATELET VOLUME 7.9 fL (7.2-11.7); MONO # 0.7 K/uL (0.0-0.8); MONO % 5.3 % (0.0-10.0); RED CELL DISTRIBUTION WIDTH 17.4 % (11.5-14.5); WHITE BLOOD COUNT 12.8 K/uL (4.8-10.8)
[2016-12-31 12:16] LABS: CHLORIDE 93 mmol/L (98-107); POTASSIUM 3.8 mmol/L (3.6-5.2); SODIUM 135 mmol/L (132-148)
[2016-12-31 12:19] LABS: BLOOD UREA NITROGEN 13 mg/dL (9-20); CARBON DIOXIDE 31 mmol/L (22-30); GFR AFRICAN-AMERICAN > 60
[2016-12-31 12:20] LABS: GLUCOSE,RANDOM 91 mg/dL (75-110)
[2016-12-31] MEDS ORDERED: Lidocaine 2% w Epi 1:100,000 Inj IJ ONE (13:20)
[2016-12-31] MEDS ORDERED: Bupivacaine HCl 0.25% PF (10 ml) Inj ONE (13:20)
[2016-12-31] MEDS ORDERED: Lactated Ringer's 1,000 ML IV ONE ×2 (13:26→14:05)
[2016-12-31] MEDS ORDERED: Midazolam 2 MG/2 ML VIAL ONE (13:32)
[2016-12-31] MEDS ORDERED: Propofol 10 mg/ml Inj (20 ML) ONE (13:55)
--- NOTE | 2016-12-31 17:03 | PCM.SURG1 ---
Surgeon's Initial Post Op Note - Surgeon's Notes Surgeon: Claudia Engraver Automatic: Andrew PGY2 Type of Anesthesia: IV Sedation, Local Pre-Operative Diagnosis: L axillary abscess Operative Findings: Abscess and lymphadenopathy Post-Operative Diagnosis: same Operation Performed: Incision and drainage of abscess, debridement of abscess wall cavity, lymph node bx Specimen/Specimens Removed: lymph node, wall cavity, cultures Estimated Blood Loss: EBL {In ML}: 20 Blood Products Given: N/A Drains Used: No Drains Post-Op Condition: Good Date of Surgery/Procedure: 12/31/16 Time of Surgery/Procedure: 17:03
--- NOTE | 2016-12-31 18:05 | CP.PCM.PN ---
Subjective - Date & Time of Evaluation Date of Evaluation: 12/31/16 Time of Evaluation: 11:00 - Subjective Subjective: clinically same Objective - Vital Signs/Intake and Output Vital Signs (last 24 hours): Temp Pulse Resp BP Pulse Ox 97.9 F 87 20 120/77 97 12/31/16 16:15 12/31/16 16:15 12/31/16 16:15 12/31/16 16:15 12/31/16 16:15 Intake and Output: 12/31/16 12/31/16 06:59 18:59 Intake Total 450 Output Total 300 500 Balance -300 -50 - Medications Medications: Current Medications Acetaminophen (Tylenol 325mg Tab) 650 mg PO Q6 PRN PRN Reason: Headache Cyanocobalamin (Vitamin B12 1000 Mcg Tab) 1,000 mcg PO DAILY [facility] Last Admin: 12/31/16 10:03 Dose: 1,000 mcg Diphenhydramine HCl (Benadryl) 25 mg IVP Q4H PRN PRN Reason: Other Last Admin: 12/31/16 16:19 Dose: 25 mg Hydromorphone HCl (Dilaudid) 2 mg IVP Q4H PRN PRN Reason: Pain, severe (8-10) Last Admin: 12/31/16 16:19 Dose: 2 mg Vancomycin HCl 1,000 mg/ (Sodium Chloride) 250 mls @ 166.6 mls/hr IVPB Q12H [facility] Last Admin: 12/31/16 10:49 Dose: 166.6 mls/hr Cefepime HCl (Maxipime Iv 2 Gm Premix) 2 gm in 100 mls @ 200 mls/hr IVPB Q12H [facility] Stop: 01/03/17 22:01 Last Admin: 12/31/16 10:03 Dose: 200 mls/hr Mesalamine (Delzicol) 800 mg PO TID [facility] Last Admin: 12/31/16 13:03 Dose: Not Given Ondansetron HCl (Zofran Inj) 4 mg IVP Q8 PRN PRN Reason: Nausea/Vomiting Pantoprazole Sodium (Protonix Ec Tab) 40 mg PO DAILY [facility] Last Admin: 12/31/16 10:02 Dose: 40 mg Paroxetine HCl (Paxil) 10 mg PO DAILY [facility] Last Admin: 12/31/16 10:03 Dose: 10 mg Prednisone (Prednisone Tab) 60 mg PO DAILY [facility] Last Admin: 12/31/16 10:02 Dose: 60 mg Trazodone HCl (Desyrel) 50 mg PO [facility] Last Admin: 12/30/16 22:40 Dose: 50 mg - Labs Labs: 12/31/16 04:00 12/31/16 11:43 PT 11.2 SECONDS (9.7-12.2) 12/31/16 11:43 INR 1.0 12/31/16 11:43 APTT 28 SECONDS (21-34) 12/31/16 11:43 - Constitutional Appears: Well - Head Exam Head Exam: ATRAUMATIC, NORMAL INSPECTION, NORMOCEPHALIC - Eye Exam Eye Exam: EOMI, Normal appearance, PERRL Pupil Exam: NORMAL ACCOMODATION, PERRL - ENT Exam ENT Exam: Mucous Membranes Moist, Normal Exam - Neck Exam Neck Exam: Full ROM, Normal Inspection. absent: Lymphadenopathy - Respiratory Exam Respiratory Exam: Decreased Breath Sounds - Cardiovascular Exam Cardiovascular Exam: REGULAR RHYTHM, +S1, +S2 - GI/Abdominal Exam GI & Abdominal Exam: Soft, Diminished Bowel Sounds - Rectal Exam Rectal Exam: Deferred
--- NOTE | 2016-12-31 20:27 | OP ---
PROCEDURE DATE: 12/31/2016 PREOPERATIVE DIAGNOSIS: Left axillary abscess and palpable mass with open wounds. POSTOPERATIVE DIAGNOSIS 1. Left axillary abscess. 2. Left axillary open wound with hypergranulation tissue. 3. Left axillary enlarged lymph node. PROCEDURE DONE: 1. Incision and drainage of left axillary abscess. 2. Excisional debridement of left exudative wound approximately 5 x 6 cm. 3. Left axillary lymph node excision. SURGEON: Temo Taylor M.D. CHANNEL INSTALLER: Alex Morales. ANESTHESIA: General endotracheal tube anesthesia. ESTIMATED BLOOD LOSS: Around 20 mL. DRAIN: None. PATHOLOGY: 1. Pus was sent for the culture and sensitivity. 2. Debrided tissue was sent for the permanent pathology. 3. Large left axillary lymph node was sent for biopsy. COMPLICATIONS: None. INTRAOPERATIVE FINDINGS: The patient had approximately 3 x 3 cm superficial left axillary abscess made with open wound of approximately 3 x 4 cm site with hypergranulation tissue and large caseating lymph node of left axillary area of approximately 3 x 3 cm size. INTRAOPERATIVE STEPS: This is a 21-year-old male who was diagnosed with a left axillary abscess. The patient had severe pain. The patient also had a left axillary open wound and the patient was consented for incision and drainage of the abscess and debridement of the wound. Brought to the OR and placed supine on the operating table. After induction of the anesthesia, the left axilla was prepped and draped in the usual sterile fashion and incision was made on top of the axillary abscess and extended up to the left axillary wound and after incising the skin and subcutaneous tissue, the abscess cavity was entered and pus was taken for culture and sensitivity. The cavity was debrided. The open wound of the left axilla was included into the abscess cavity wound and the wound was debrided and the patient found to have a large lymph node underneath the left axillary wound. That was also excised and it was sent off the table for the pathology. The wound was irrigated. The wound was packed with iodoform packing and dry sterile dressing was applied. The patient tolerated the procedure well. Count of instruments and gauze was correct. There was no apparent complication. The patient was reversed from sedation and sent to the postanesthesia care in stable condition. Temo Taylor MD cc: [id number] TT: 12/31/2016 20:27:03 sn MICHAELLE
[2017-01-01] MEDS: DiphenhydrAMINE 50 mg/ml Inj IVP PRN ×7 (02:09→21:35)
[2017-01-01 07:24] LABS: BASO # 0.1 K/uL (0.0-0.2); BASO % 0.5 % (0.0-2.0); EOS # 0.2 K/uL (0.0-0.7); EOS % 1.3 % (0.0-4.0); HEMATOCRIT 24.7 % (35.0-51.0); LYMPH # 3.4 K/uL (1.0-4.3); LYMPH % 25.8 % (20.0-40.0); MEAN CELL VOLUME 63.3 fL (80.0-94.0); MEAN CORPUSCULAR HEMOGLOBIN 18.8 pg (27.0-31.0); MEAN CORPUSCULAR HGB CONC 29.7 g/dL (33.0-37.0); MEAN PLATELET VOLUME 7.9 fL (7.2-11.7); MONO % 7.6 % (0.0-10.0); RED CELL DISTRIBUTION WIDTH 16.8 % (11.5-14.5); WHITE BLOOD COUNT 13.3 K/uL (4.8-10.8)
[2017-01-01 07:52] LABS: CHLORIDE 98 mmol/L (98-107); POTASSIUM 3.5 mmol/L (3.6-5.2); SODIUM 136 mmol/L (132-148)
[2017-01-01 07:54] LABS: GFR AFRICAN-AMERICAN > 60
[2017-01-01 07:56] LABS: ALB/GLOB RATIO 0.9 (1.0-2.1); ALKALINE PHOSPHATASE 88 U/L (38-126); ALT/SGPT 33 U/L (21-72); AST/SGOT 29 U/L (17-59); BILIRUBIN,TOTAL 0.4 mg/dL (0.2-1.3); BLOOD UREA NITROGEN 12 mg/dL (9-20); CALCIUM 8.1 mg/dl (8.6-10.4); CARBON DIOXIDE 29 mmol/L (22-30); GLUCOSE,RANDOM 117 mg/dL (75-110); TOTAL PROTEIN 6.7 g/dL (6.3-8.3)
--- NOTE | 2017-01-01 09:12 | CP.PCM.PN ---
Subjective - Date & Time of Evaluation Date of Evaluation: 01/01/17 Time of Evaluation: 10:40 - Subjective Subjective: clinically same Objective - Vital Signs/Intake and Output Vital Signs (last 24 hours): Temp Pulse Resp BP Pulse Ox 98.2 F 101 H 20 103/62 98 01/01/17 00:00 01/01/17 00:00 01/01/17 00:00 01/01/17 00:00 01/01/17 00:00 Intake and Output: 01/01/17 01/01/17 06:59 18:59 Intake Total 1650 Output Total 1600 Balance 50 - Medications Medications: Current Medications Acetaminophen (Tylenol 325mg Tab) 650 mg PO Q6 PRN PRN Reason: Headache Cyanocobalamin (Vitamin B12 1000 Mcg Tab) 1,000 mcg PO DAILY [facility] Last Admin: 12/31/16 10:03 Dose: 1,000 mcg Diphenhydramine HCl (Benadryl) 25 mg IVP Q3H PRN PRN Reason: Other Last Admin: 01/01/17 08:44 Dose: 25 mg Hydromorphone HCl (Dilaudid) 2 mg IVP Q3H PRN PRN Reason: Pain, severe (8-10) Last Admin: 01/01/17 08:44 Dose: 2 mg Vancomycin HCl 1,000 mg/ (Sodium Chloride) 250 mls @ 166.6 mls/hr IVPB Q12H [facility] Last Admin: 01/01/17 02:10 Dose: 166.6 mls/hr Cefepime HCl (Maxipime Iv 2 Gm Premix) 2 gm in 100 mls @ 200 mls/hr IVPB Q12H [facility] Stop: 01/03/17 22:01 Last Admin: 12/31/16 22:10 Dose: 200 mls/hr Mesalamine (Delzicol) 800 mg PO TID [facility] Last Admin: 12/31/16 18:56 Dose: 800 mg Ondansetron HCl (Zofran Inj) 4 mg IVP Q8 PRN PRN Reason: Nausea/Vomiting Pantoprazole Sodium (Protonix Ec Tab) 40 mg PO DAILY [facility] Last Admin: 12/31/16 10:02 Dose: 40 mg Paroxetine HCl (Paxil) 10 mg PO DAILY [facility] Last Admin: 12/31/16 10:03 Dose: 10 mg Potassium Chloride (K-Dur 20 Meq Er Tab) 40 meq PO ONCE ONE Stop: 01/01/17 09:00 Prednisone (Prednisone Tab) 60 mg PO DAILY [facility] Last Admin: 12/31/16 10:02 Dose: 60 mg Trazodone HCl (Desyrel) 50 mg PO HS [facility] Last Admin: 12/31/16 22:10 Dose: 50 mg - Labs Labs: 01/01/17 07:03 01/01/17 07:03 PT 11.2 SECONDS (9.7-12.2) 12/31/16 11:43 INR 1.0 12/31/16 11:43 APTT 28 SECONDS (21-34) 12/31/16 11:43 - Constitutional Appears: Well - Head Exam Head Exam: ATRAUMATIC, NORMAL INSPECTION, NORMOCEPHALIC - Eye Exam Eye Exam: EOMI, Normal appearance, PERRL Pupil Exam: NORMAL ACCOMODATION, PERRL - ENT Exam ENT Exam: Mucous Membranes Moist, Normal Exam - Neck Exam Neck Exam: Full ROM, Normal Inspection. absent: Lymphadenopathy - Respiratory Exam Respiratory Exam: Decreased Breath Sounds - Cardiovascular Exam Cardiovascular Exam: REGULAR RHYTHM, +S1, +S2 - GI/Abdominal Exam GI & Abdominal Exam: Soft, Diminished Bowel Sounds - Rectal Exam Rectal Exam: Deferred
[2017-01-01] MEDS ORDERED: Potassium Chloride 20 mEq ER Tab PO ONE (09:45)
[2017-01-01] MEDS: Cefepime IV 2 gm in Dextrose 2 GM/100 ML BAG IVPB SCH ×2 (09:49→21:13)
[2017-01-01] MEDS: Pantoprazole 40 mg EC Tab PO SCH (09:50)
--- NOTE | 2017-01-01 12:53 | CP.PCM.PN ---
Subjective - Date & Time of Evaluation Date of Evaluation: 01/01/17 Time of Evaluation: 09:40 - Subjective Subjective: Medicine note- Dr. Barrett's service Patient was seen and examined at bedside. Patient reports that he has significant pain from his axillary wound. Patient is eating well, colostomy functioning normally. No events overnight, per nursing. Objective - Vital Signs/Intake and Output Vital Signs (last 24 hours): Temp Pulse Resp BP Pulse Ox 98.2 F 101 H 20 103/62 98 01/01/17 00:00 01/01/17 00:00 01/01/17 00:00 01/01/17 00:00 01/01/17 00:00 Intake and Output: 01/01/17 01/01/17 06:59 18:59 Intake Total 1650 Output Total 1600 Balance 50 - Medications Medications: Current Medications Acetaminophen (Tylenol 325mg Tab) 650 mg PO Q6 PRN PRN Reason: Headache Cyanocobalamin (Vitamin B12 1000 Mcg Tab) 1,000 mcg PO DAILY [facility] Last Admin: 12/31/16 10:03 Dose: 1,000 mcg Diphenhydramine HCl (Benadryl) 25 mg IVP Q3H PRN PRN Reason: Other Last Admin: 01/01/17 12:17 Dose: 25 mg Hydromorphone HCl (Dilaudid) 2 mg IVP Q3H PRN PRN Reason: Pain, severe (8-10) Last Admin: 01/01/17 12:17 Dose: 2 mg Vancomycin HCl 1,000 mg/ (Sodium Chloride) 250 mls @ 166.6 mls/hr IVPB Q12H [facility] Last Admin: 01/01/17 12:00 Dose: 166.6 mls/hr Cefepime HCl (Maxipime Iv 2 Gm Premix) 2 gm in 100 mls @ 200 mls/hr IVPB Q12H [facility] Stop: 01/03/17 22:01 Last Admin: 01/01/17 09:49 Dose: 200 mls/hr Mesalamine (Delzicol) 800 mg PO TID [facility] Last Admin: 01/01/17 09:50 Dose: 800 mg Ondansetron HCl (Zofran Inj) 4 mg IVP Q8 PRN PRN Reason: Nausea/Vomiting Pantoprazole Sodium (Protonix Ec Tab) 40 mg PO DAILY [facility] Last Admin: 01/01/17 09:50 Dose: 40 mg Paroxetine HCl (Paxil) 10 mg PO DAILY [facility] Last Admin: 01/01/17 09:50 Dose: 10 mg Prednisone (Prednisone Tab) 60 mg PO DAILY [facility] Last Admin: 01/01/17 09:50 Dose: 60 mg Trazodone HCl (Desyrel) 50 mg PO HS [facility] Last Admin: 12/31/16 22:10 Dose: 50 mg - Labs Labs: 01/01/17 07:03 01/01/17 07:03 PT 11.2 SECONDS (9.7-12.2) 12/31/16 11:43 INR 1.0 12/31/16 11:43 APTT 28 SECONDS (21-34) 12/31/16 11:43 - Constitutional Appears: Non-toxic, No Acute Distress - Head Exam Head Exam: ATRAUMATIC, NORMAL INSPECTION, NORMOCEPHALIC - Eye Exam Pupil Exam: NORMAL ACCOMODATION, PERRL - ENT Exam ENT Exam: Mucous Membranes Moist - Respiratory Exam Respiratory Exam: Clear to Ausculation Bilateral, NORMAL BREATHING PATTERN - Cardiovascular Exam Cardiovascular Exam: REGULAR RHYTHM, +S1, +S2 - GI/Abdominal Exam GI & Abdominal Exam: Soft, Normal Bowel Sounds. absent: Tenderness, Diminished Bowel Sounds, Hypoactive Bowel Sounds Additional comments: colostomy bag full and functioning. - Extremities Exam Extremities Exam: Normal Capillary Refill, Normal Inspection - Neurological Exam Neurological Exam: Alert, Awake, Oriented x3 - Psychiatric Exam Psychiatric exam: Normal Affect, Normal Mood - Skin Skin Exam: Dry, Intact, Normal Color, Warm Assessment and Plan - Assessment and Plan (Free Text) Assessment: Perianal abscess Dr. Daniel consulted, help appreciated. Dr. Taylor consulted, help appreciated. Culture showed MRSA and Citrobacter diversus. Initial blood culture showed coag negative Staph. Repeat blood culture negative. CT showed no new inflammation, surgery intervention at this time. Cefepime 2g IV q12H started on 12/24. Vancomycin 1g IV q12H started on 12/22. Continue Dilaudid 2mg IVP Q3h Continue Benadryl 25mg IVP Q3h Crohn's colitis Mesalamine 800mg PO TID. Prednisone 60mg PO daily per Dr. Daniel. Axillary pain s/p day #1 Incision and drainage of abscess, debridement of abscess wall cavity , lymph node bx Wound care nurse referral Wound culture - MRSA positive Vancomycin 1g IV q12H started on 12/22. Prophylactic measure SCD, Protonix. Management per Dr. Barrett
--- NOTE | 2017-01-01 15:37 | CP.PCM.PN ---
<Odin Merritt - Last Filed: 01/01/17 15:35> Subjective - Date & Time of Evaluation Date of Evaluation: 01/01/17 Time of Evaluation: 15:35 - Subjective Subjective: Surgery: Claudia Patient doing well today. Patient states pain has improved after I&D. He denies f/c/n/v. Objective - Vital Signs/Intake and Output Vital Signs (last 24 hours): Temp Pulse Resp BP Pulse Ox 98.2 F 101 H 20 103/62 98 01/01/17 00:00 01/01/17 00:00 01/01/17 00:00 01/01/17 00:00 01/01/17 00:00 Intake and Output: 01/01/17 01/01/17 06:59 18:59 Intake Total 1650 Output Total 1600 Balance 50 - Medications Medications: Current Medications Acetaminophen (Tylenol 325mg Tab) 650 mg PO Q6 PRN PRN Reason: Headache Cyanocobalamin (Vitamin B12 1000 Mcg Tab) 1,000 mcg PO DAILY [facility] Last Admin: 01/01/17 11:00 Dose: 1,000 mcg Diphenhydramine HCl (Benadryl) 25 mg IVP Q3H PRN PRN Reason: Other Last Admin: 01/01/17 12:17 Dose: 25 mg Hydromorphone HCl (Dilaudid) 2 mg IVP Q3H PRN PRN Reason: Pain, severe (8-10) Last Admin: 01/01/17 12:17 Dose: 2 mg Vancomycin HCl 1,000 mg/ (Sodium Chloride) 250 mls @ 166.6 mls/hr IVPB Q12H [facility] Last Admin: 01/01/17 12:00 Dose: 166.6 mls/hr Cefepime HCl (Maxipime Iv 2 Gm Premix) 2 gm in 100 mls @ 200 mls/hr IVPB Q12H [facility] Stop: 01/03/17 22:01 Last Admin: 01/01/17 09:49 Dose: 200 mls/hr Mesalamine (Delzicol) 800 mg PO TID [facility] Last Admin: 01/01/17 13:43 Dose: 800 mg Ondansetron HCl (Zofran Inj) 4 mg IVP Q8 PRN PRN Reason: Nausea/Vomiting Pantoprazole Sodium (Protonix Ec Tab) 40 mg PO DAILY [facility] Last Admin: 01/01/17 09:50 Dose: 40 mg Paroxetine HCl (Paxil) 10 mg PO DAILY [facility] Last Admin: 01/01/17 09:50 Dose: 10 mg Prednisone (Prednisone Tab) 60 mg PO DAILY [facility] Last Admin: 01/01/17 09:50 Dose: 60 mg Trazodone HCl (Desyrel) 50 mg PO HS [facility] Last Admin: 12/31/16 22:10 Dose: 50 mg - Labs Labs: 01/01/17 07:03 01/01/17 07:03 PT 11.2 SECONDS (9.7-12.2) 12/31/16 11:43 INR 1.0 12/31/16 11:43 APTT 28 SECONDS (21-34) 12/31/16 11:43 - Constitutional Appears: Well, Non-toxic, No Acute Distress - Head Exam Head Exam: ATRAUMATIC, NORMOCEPHALIC - Eye Exam Eye Exam: EOMI, Normal appearance - ENT Exam ENT Exam: Mucous Membranes Moist - Respiratory Exam Respiratory Exam: NORMAL BREATHING PATTERN. absent: Respiratory Distress - Cardiovascular Exam Cardiovascular Exam: REGULAR RHYTHM. absent: Tachycardia - GI/Abdominal Exam GI & Abdominal Exam: Soft. absent: Distended, Tenderness - Extremities Exam Additional comments: dressing CDI Assessment and Plan - Assessment and Plan (Free Text) Assessment: 21 y/o male w/ axillary abscess s/p I&D pod 1 Plan: -daily packing changes -cont abx per ID -no further surgical intervention at this time -further recs per Dr. Taylor AKWhite PGY1 <Temo Taylor B - Last Filed: 01/03/17 14:19> Objective - Vital Signs/Intake and Output Vital Signs (last 24 hours): Temp Pulse Resp BP Pulse Ox 97.6 F 90 20 103/64 99 01/03/17 08:17 01/03/17 08:17 01/03/17 08:17 01/03/17 08:17 01/03/17 08:17 Intake and Output: 01/03/17 01/03/17 06:59 18:59 Output Total 900 Balance -900 - Medications Medications: Current Medications Acetaminophen (Tylenol 325mg Tab) 650 mg PO Q6 PRN PRN Reason: Headache Cyanocobalamin (Vitamin B12 1000 Mcg Tab) 1,000 mcg PO DAILY [facility] Last Admin: 01/03/17 10:07 Dose: 1,000 mcg Diphenhydramine HCl (Benadryl) 25 mg IVP Q3H PRN PRN Reason: Other Last Admin: 01/03/17 13:33 Dose: 25 mg Hydromorphone HCl (Dilaudid) 2 mg IVP Q3H PRN PRN Reason: Pain, severe (8-10) Last Admin: 01/03/17 13:33 Dose: 2 mg Vancomycin HCl 1,000 mg/ (Sodium Chloride) 250 mls @ 166.6 mls/hr IVPB Q12H [facility] Last Admin: 01/03/17 11:31 Dose: 166.6 mls/hr Cefepime HCl (Maxipime Iv 2 Gm Premix) 2 gm in 100 mls @ 200 mls/hr IVPB Q12H [facility] Last Admin: 01/03/17 10:06 Dose: 200 mls/hr Mesalamine (Delzicol) 800 mg PO TID [facility] Last Admin: 01/03/17 13:32 Dose: 800 mg Mupirocin (Bactroban 2% Nasal) 0.5 gm MEKA BID [facility] Last Admin: 01/03/17 10:05 Dose: 0.5 gm Ondansetron HCl (Zofran Inj) 4 mg IVP Q8 PRN PRN Reason: Nausea/Vomiting Pantoprazole Sodium (Protonix Ec Tab) 40 mg PO DAILY [facility] Last Admin: 01/03/17 10:05 Dose: 40 mg Paroxetine HCl (Paxil) 10 mg PO DAILY [facility] Last Admin: 01/03/17 10:07 Dose: 10 mg Prednisone (Prednisone Tab) 60 mg PO DAILY [facility] Last Admin: 01/03/17 10:06 Dose: 60 mg Trazodone HCl (Desyrel) 50 mg PO HS [facility] Last Admin: 01/02/17 21:37 Dose: 50 mg - Labs Labs: 01/02/17 06:55 01/02/17 06:55 PT 11.2 SECONDS (9.7-12.2) 12/31/16 11:43 INR 1.0 12/31/16 11:43 APTT 28 SECONDS (21-34) 12/31/16 11:43 Attending/Attestation - Attestation I have personally seen and examined this patient.: Yes I have fully participated in the care of the patient.: Yes I have reviewed all pertinent clinical information, including history, physical exam and plan: Yes Notes (Text): 01/03/17 14:19 Pt was seen and examined at bedside on 01/01/17 Agree with above note and assessment
--- NOTE | 2017-01-01 22:01 | CP.PCM.PN ---
Subjective - Date & Time of Evaluation Date of Evaluation: 01/01/17 Time of Evaluation: 03:00 - Subjective Subjective: dictated Objective - Vital Signs/Intake and Output Vital Signs (last 24 hours): Temp Pulse Resp BP Pulse Ox 98.2 F 94 H 20 103/70 98 01/01/17 15:13 01/01/17 15:13 01/01/17 15:13 01/01/17 15:13 01/01/17 15:13 Intake and Output: 01/01/17 01/02/17 18:59 06:59 Intake Total 630 Balance 630 - Medications Medications: Current Medications Acetaminophen (Tylenol 325mg Tab) 650 mg PO Q6 PRN PRN Reason: Headache Cyanocobalamin (Vitamin B12 1000 Mcg Tab) 1,000 mcg PO DAILY [facility] Last Admin: 01/01/17 11:00 Dose: 1,000 mcg Diphenhydramine HCl (Benadryl) 25 mg IVP Q3H PRN PRN Reason: Other Last Admin: 01/01/17 21:35 Dose: 25 mg Hydromorphone HCl (Dilaudid) 2 mg IVP Q3H PRN PRN Reason: Pain, severe (8-10) Last Admin: 01/01/17 21:37 Dose: 2 mg Vancomycin HCl 1,000 mg/ (Sodium Chloride) 250 mls @ 166.6 mls/hr IVPB Q12H [facility] Last Admin: 01/01/17 12:00 Dose: 166.6 mls/hr Cefepime HCl (Maxipime Iv 2 Gm Premix) 2 gm in 100 mls @ 200 mls/hr IVPB Q12H [facility] Stop: 01/03/17 22:01 Last Admin: 01/01/17 21:13 Dose: 200 mls/hr Mesalamine (Delzicol) 800 mg PO TID [facility] Last Admin: 01/01/17 17:47 Dose: 800 mg Ondansetron HCl (Zofran Inj) 4 mg IVP Q8 PRN PRN Reason: Nausea/Vomiting Pantoprazole Sodium (Protonix Ec Tab) 40 mg PO DAILY [facility] Last Admin: 01/01/17 09:50 Dose: 40 mg Paroxetine HCl (Paxil) 10 mg PO DAILY [facility] Last Admin: 01/01/17 09:50 Dose: 10 mg Prednisone (Prednisone Tab) 60 mg PO DAILY [facility] Last Admin: 01/01/17 09:50 Dose: 60 mg Trazodone HCl (Desyrel) 50 mg PO HS [facility] Last Admin: 01/01/17 21:12 Dose: 50 mg - Labs Labs: 01/01/17 07:03 01/01/17 07:03 PT 11.2 SECONDS (9.7-12.2) 12/31/16 11:43 INR 1.0 12/31/16 11:43 APTT 28 SECONDS (21-34) 12/31/16 11:43
--- NOTE | 2017-01-01 23:15 | PN ---
DATE: 01/01/2017 The patient had I and D done, and he was showing me a picture showing that his I and D was _deep____ in the left axilla. When I palpated, it did not seem like that. Obviously, they have to clean out the whole area and he still had pain and he was saying he was going to go to a different GI. I hope he gets a GI, because now he is on steroids and on Asacol; he needs to follow seriously. PHYSICAL EXAMINATION VITAL SIGNS: Temperature is 98.2, pulse 94, blood pressure 103/70, respirations are 20. HEENT: Head is atraumatic, normocephalic. NECK: Supple. LEFT AXILLA: He could not raise and he had packing. LUNGS: Clear. HEART: S1, S2 regular. ABDOMEN: Soft. His colostomy bag fills up fast and there is undigested particles in it. The groin area he says is improving, but I did not evaluate today. EXTREMITIES: Have no edema. LABORATORY DATA: Noted. Labs show white count is 13.3, hemoglobin 7.3, hematocrit 24.7, platelet count is 371. His hemoglobin is low and creatinine is 0.7. ASSESSMENT AND PLAN: He had MRSA in the wound. So we will order mupirocin to his nose and he also may need blood transfusion if his hemoglobin is that low; needs to be repeated tomorrow. We will follow. The blood culture was coagulase negative Staph and the wound had Citrobacter and MRSA, so he does not have MRSA in the blood, but in the wound. He may be colonized with it. We will give him Bactroban twice a day for 10 days in the nares if he is able to tolerate starting tomorrow. He does have abscesses in groin area and he has Crohn disease and he is on steroids at this time, and hopefully, will improve if he follows religiously with GI and his surgeon. Santosh Daniel MD cc: [id number] TT: 01/01/2017 23:15:20 Confirmation # [id number] Dictation # [id number] MICHAELLE
[2017-01-02] MEDS: DiphenhydrAMINE 50 mg/ml Inj IVP PRN ×8 (00:33→21:37)
--- NOTE | 2017-01-02 06:49 | CP.PCM.PN ---
Subjective - Date & Time of Evaluation Date of Evaluation: 01/02/17 Time of Evaluation: 08:45 - Subjective Subjective: Medicine Note- Dr. Barrett's service Patient was seen and examined at bedside. Patient reports he still has significant pain in his left axilla. Otherwise patient has no acute complaints. No events overnight, per nursing. Objective - Vital Signs/Intake and Output Vital Signs (last 24 hours): Temp Pulse Resp BP Pulse Ox 98 F 99 H 20 108/72 99 01/01/17 23:28 01/01/17 23:28 01/01/17 23:28 01/01/17 23:28 01/01/17 23:28 Intake and Output: 01/01/17 01/02/17 18:59 06:59 Intake Total 630 450 Balance 630 450 - Medications Medications: Current Medications Acetaminophen (Tylenol 325mg Tab) 650 mg PO Q6 PRN PRN Reason: Headache Cyanocobalamin (Vitamin B12 1000 Mcg Tab) 1,000 mcg PO DAILY [facility] Last Admin: 01/01/17 11:00 Dose: 1,000 mcg Diphenhydramine HCl (Benadryl) 25 mg IVP Q3H PRN PRN Reason: Other Last Admin: 01/02/17 06:19 Dose: 25 mg Hydromorphone HCl (Dilaudid) 2 mg IVP Q3H PRN PRN Reason: Pain, severe (8-10) Last Admin: 01/02/17 06:21 Dose: 2 mg Vancomycin HCl 1,000 mg/ (Sodium Chloride) 250 mls @ 166.6 mls/hr IVPB Q12H [facility] Last Admin: 01/01/17 22:34 Dose: 166.6 mls/hr Cefepime HCl (Maxipime Iv 2 Gm Premix) 2 gm in 100 mls @ 200 mls/hr IVPB Q12H [facility] Stop: 01/03/17 22:01 Last Admin: 01/01/17 21:13 Dose: 200 mls/hr Mesalamine (Delzicol) 800 mg PO TID [facility] Last Admin: 01/01/17 17:47 Dose: 800 mg Mupirocin (Bactroban 2% Nasal) 0.5 gm MEKA BID [facility] Ondansetron HCl (Zofran Inj) 4 mg IVP Q8 PRN PRN Reason: Nausea/Vomiting Pantoprazole Sodium (Protonix Ec Tab) 40 mg PO DAILY [facility] Last Admin: 01/01/17 09:50 Dose: 40 mg Paroxetine HCl (Paxil) 10 mg PO DAILY [facility] Last Admin: 01/01/17 09:50 Dose: 10 mg Prednisone (Prednisone Tab) 60 mg PO DAILY [facility] Last Admin: 01/01/17 09:50 Dose: 60 mg Trazodone HCl (Desyrel) 50 mg PO HS [facility] Last Admin: 01/01/17 21:12 Dose: 50 mg - Labs Labs: 01/01/17 07:03 01/01/17 07:03 PT 11.2 SECONDS (9.7-12.2) 12/31/16 11:43 INR 1.0 12/31/16 11:43 APTT 28 SECONDS (21-34) 12/31/16 11:43 - Constitutional Appears: Non-toxic, No Acute Distress - Head Exam Head Exam: ATRAUMATIC, NORMAL INSPECTION, NORMOCEPHALIC - Eye Exam Pupil Exam: NORMAL ACCOMODATION, PERRL - ENT Exam ENT Exam: Mucous Membranes Moist - Respiratory Exam Respiratory Exam: Clear to Ausculation Bilateral, NORMAL BREATHING PATTERN. absent: Prolonged Expiratory Phase, Rales, Rhonchi, Wheezes - Cardiovascular Exam Cardiovascular Exam: REGULAR RHYTHM, +S1, +S2 - GI/Abdominal Exam GI & Abdominal Exam: Soft, Normal Bowel Sounds. absent: Tenderness, Diminished Bowel Sounds, Hypoactive Bowel Sounds Additional comments: colostomy bag present and functioning - Extremities Exam Extremities Exam: Normal Capillary Refill, Normal Inspection Additional comments: axillary wound currently packed. - Neurological Exam Neurological Exam: Alert, Awake, Oriented x3 Assessment and Plan - Assessment and Plan (Free Text) Assessment: Perianal abscess Dr. Daniel consulted, help appreciated- As per Dr. Daniel, patient will need to be on antibiotics for an additional [address] Taylor consulted, help appreciated. Culture showed MRSA and Citrobacter diversus. Initial blood culture showed coag negative Staph. Repeat blood culture negative. CT showed no new inflammation, surgery intervention at this time. Cefepime 2g IV q12H started on 12/24. Vancomycin 1g IV q12H started on 12/22. Continue Dilaudid 2mg IVP Q3h Continue Benadryl 25mg IVP Q3h Wound care nursing referral Crohn's colitis Mesalamine 800mg PO TID. Prednisone 60mg PO daily per Dr. Daniel. Axillary pain s/p day #2 Incision and drainage of abscess, debridement of abscess wall cavity , lymph node bx Wound care nurse referral Wound culture - MRSA positive Vancomycin 1g IV q12H started on 12/22. Prophylactic measure SCD, Protonix. Management per Dr. Barrett
[2017-01-02 07:03] LABS: BASO # 0.1 K/uL (0.0-0.2); BASO % 0.8 % (0.0-2.0); EOS # 0.5 K/uL (0.0-0.7); EOS % 4.3 % (0.0-4.0); HEMATOCRIT 25.3 % (35.0-51.0); LYMPH # 4.5 K/uL (1.0-4.3); LYMPH % 35.7 % (20.0-40.0); MEAN CELL VOLUME 62.8 fL (80.0-94.0); MEAN CORPUSCULAR HEMOGLOBIN 19.3 pg (27.0-31.0); MEAN CORPUSCULAR HGB CONC 30.7 g/dL (33.0-37.0); MEAN PLATELET VOLUME 7.7 fL (7.2-11.7); MONO # 0.8 K/uL (0.0-0.8); MONO % 6.2 % (0.0-10.0); RED CELL DISTRIBUTION WIDTH 17.2 % (11.5-14.5); WHITE BLOOD COUNT 12.6 K/uL (4.8-10.8)
[2017-01-02 07:30] LABS: CHLORIDE 97 mmol/L (98-107); SODIUM 135 mmol/L (132-148)
[2017-01-02 07:31] LABS: POTASSIUM 3.7 mmol/L (3.6-5.2)
[2017-01-02 07:33] LABS: ALB/GLOB RATIO 0.9 (1.0-2.1); ALKALINE PHOSPHATASE 86 U/L (38-126); ALT/SGPT 29 U/L (21-72); AST/SGOT 22 U/L (17-59); BILIRUBIN,TOTAL 0.6 mg/dL (0.2-1.3); BLOOD UREA NITROGEN 15 mg/dL (9-20); CARBON DIOXIDE 31 mmol/L (22-30); GFR AFRICAN-AMERICAN > 60; TOTAL PROTEIN 6.6 g/dL (6.3-8.3)
[2017-01-02 07:34] LABS: CALCIUM 8.3 mg/dl (8.6-10.4); GLUCOSE,RANDOM 95 mg/dL (75-110)
[2017-01-02] MEDS: Mupirocin 2% Ointment (NASAL) NAS SCH ×2 (09:24→17:41)
[2017-01-02] MEDS: Pantoprazole 40 mg EC Tab PO SCH (09:26)
--- NOTE | 2017-01-02 10:15 | CP.PCM.PN ---
Subjective - Date & Time of Evaluation Date of Evaluation: 01/02/17 Time of Evaluation: 10:40 - Subjective Subjective: clinically same Objective - Vital Signs/Intake and Output Vital Signs (last 24 hours): Temp Pulse Resp BP Pulse Ox 98.3 F 89 19 112/73 97 01/02/17 09:19 01/02/17 09:19 01/02/17 09:19 01/02/17 09:19 01/02/17 09:19 Intake and Output: 01/02/17 01/02/17 06:59 18:59 Intake Total 450 Balance 450 - Medications Medications: Current Medications Acetaminophen (Tylenol 325mg Tab) 650 mg PO Q6 PRN PRN Reason: Headache Cyanocobalamin (Vitamin B12 1000 Mcg Tab) 1,000 mcg PO DAILY [facility] Last Admin: 01/02/17 09:25 Dose: 1,000 mcg Diphenhydramine HCl (Benadryl) 25 mg IVP Q3H PRN PRN Reason: Other Last Admin: 01/02/17 09:23 Dose: 25 mg Hydromorphone HCl (Dilaudid) 2 mg IVP Q3H PRN PRN Reason: Pain, severe (8-10) Last Admin: 01/02/17 09:22 Dose: 2 mg Vancomycin HCl 1,000 mg/ (Sodium Chloride) 250 mls @ 166.6 mls/hr IVPB Q12H [facility] Last Admin: 01/01/17 22:34 Dose: 166.6 mls/hr Cefepime HCl (Maxipime Iv 2 Gm Premix) 2 gm in 100 mls @ 200 mls/hr IVPB Q12H [facility] Stop: 01/03/17 22:01 Last Admin: 01/01/17 21:13 Dose: 200 mls/hr Mesalamine (Delzicol) 800 mg PO TID [facility] Last Admin: 01/02/17 09:24 Dose: 800 mg Mupirocin (Bactroban 2% Nasal) 0.5 gm MEKA BID [facility] Last Admin: 01/02/17 09:24 Dose: 0.5 gm Ondansetron HCl (Zofran Inj) 4 mg IVP Q8 PRN PRN Reason: Nausea/Vomiting Pantoprazole Sodium (Protonix Ec Tab) 40 mg PO DAILY [facility] Last Admin: 01/02/17 09:26 Dose: 40 mg Paroxetine HCl (Paxil) 10 mg PO DAILY [facility] Last Admin: 01/02/17 09:25 Dose: 10 mg Prednisone (Prednisone Tab) 60 mg PO DAILY [facility] Last Admin: 01/02/17 09:26 Dose: 60 mg Trazodone HCl (Desyrel) 50 mg PO HS [facility] Last Admin: 01/01/17 21:12 Dose: 50 mg - Labs Labs: 01/02/17 06:55 01/02/17 06:55 PT 11.2 SECONDS (9.7-12.2) 12/31/16 11:43 INR 1.0 12/31/16 11:43 APTT 28 SECONDS (21-34) 12/31/16 11:43 - Constitutional Appears: Well - Head Exam Head Exam: ATRAUMATIC, NORMAL INSPECTION, NORMOCEPHALIC - Eye Exam Eye Exam: EOMI, Normal appearance, PERRL Pupil Exam: NORMAL ACCOMODATION, PERRL - ENT Exam ENT Exam: Mucous Membranes Moist, Normal Exam - Neck Exam Neck Exam: Full ROM, Normal Inspection. absent: Lymphadenopathy - Respiratory Exam Respiratory Exam: Decreased Breath Sounds - Cardiovascular Exam Cardiovascular Exam: REGULAR RHYTHM, +S1, +S2 - GI/Abdominal Exam GI & Abdominal Exam: Soft, Diminished Bowel Sounds - Rectal Exam Rectal Exam: Deferred
[2017-01-02] MEDS: Cefepime IV 2 gm in Dextrose 2 GM/100 ML BAG IVPB SCH ×2 (10:41→21:39)
--- NOTE | 2017-01-02 11:24 | CP.PCM.PN ---
<Li Magallanes - Last Filed: 01/02/17 11:24> Subjective - Date & Time of Evaluation Date of Evaluation: 01/02/17 Time of Evaluation: 06:30 - Subjective Subjective: GENERAL SURGERY PROGRESS NOTE FOR DR. TAYLOR Patient seen and examined at bedside. He reports pain in the left axilla. No other complaints. Objective - Vital Signs/Intake and Output Vital Signs (last 24 hours): Temp Pulse Resp BP Pulse Ox 98.3 F 89 19 112/73 97 01/02/17 09:19 01/02/17 09:19 01/02/17 09:19 01/02/17 09:19 01/02/17 09:19 Intake and Output: 01/02/17 01/02/17 06:59 18:59 Intake Total 450 Balance 450 - Medications Medications: Current Medications Acetaminophen (Tylenol 325mg Tab) 650 mg PO Q6 PRN PRN Reason: Headache Cyanocobalamin (Vitamin B12 1000 Mcg Tab) 1,000 mcg PO DAILY [facility] Last Admin: 01/02/17 09:25 Dose: 1,000 mcg Diphenhydramine HCl (Benadryl) 25 mg IVP Q3H PRN PRN Reason: Other Last Admin: 01/02/17 09:23 Dose: 25 mg Hydromorphone HCl (Dilaudid) 2 mg IVP Q3H PRN PRN Reason: Pain, severe (8-10) Last Admin: 01/02/17 09:22 Dose: 2 mg Vancomycin HCl 1,000 mg/ (Sodium Chloride) 250 mls @ 166.6 mls/hr IVPB Q12H [facility] Last Admin: 01/01/17 22:34 Dose: 166.6 mls/hr Cefepime HCl (Maxipime Iv 2 Gm Premix) 2 gm in 100 mls @ 200 mls/hr IVPB Q12H [facility] Stop: 01/03/17 22:01 Last Admin: 01/02/17 10:41 Dose: 200 mls/hr Mesalamine (Delzicol) 800 mg PO TID [facility] Last Admin: 01/02/17 09:24 Dose: 800 mg Mupirocin (Bactroban 2% Nasal) 0.5 gm MEKA BID [facility] Last Admin: 01/02/17 09:24 Dose: 0.5 gm Ondansetron HCl (Zofran Inj) 4 mg IVP Q8 PRN PRN Reason: Nausea/Vomiting Pantoprazole Sodium (Protonix Ec Tab) 40 mg PO DAILY [facility] Last Admin: 01/02/17 09:26 Dose: 40 mg Paroxetine HCl (Paxil) 10 mg PO DAILY [facility] Last Admin: 01/02/17 09:25 Dose: 10 mg Prednisone (Prednisone Tab) 60 mg PO DAILY [facility] Last Admin: 01/02/17 09:26 Dose: 60 mg Trazodone HCl (Desyrel) 50 mg PO HS [facility] Last Admin: 01/01/17 21:12 Dose: 50 mg - Labs Labs: 01/02/17 06:55 01/02/17 06:55 PT 11.2 SECONDS (9.7-12.2) 12/31/16 11:43 INR 1.0 12/31/16 11:43 APTT 28 SECONDS (21-34) 12/31/16 11:43 - Constitutional Appears: Non-toxic, No Acute Distress - Eye Exam Eye Exam: EOMI, Normal appearance - Respiratory Exam Respiratory Exam: NORMAL BREATHING PATTERN. absent: Respiratory Distress - Cardiovascular Exam Cardiovascular Exam: +S1, +S2 - Neurological Exam Neurological Exam: Alert, Awake, Oriented x3 - Psychiatric Exam Psychiatric exam: Normal Affect, Normal Mood - Skin Additional comments: Left axilla: packed with iodaform Dressing with serous drainage Assessment and Plan - Assessment and Plan (Free Text) Assessment: 21yo M with Crohn's disease and now left axillary abscess s/p I&D and lymph node biopsy POD#2 - Afebrile, VSS - Leukocytosis improved, WBC 12.6 today from 13.3 yesterday - Axilla cx from 12/29 grew MRSA - Axilla cx from [place] on 12/31 has no growth @ 24hrs. - Will continue daily packing changes - Dressing changed this morning - Iodaform removed and repacked this AM - Will follow up on pathology from [place] - Discussed plan with Dr. Claudia Magallanes PGY-2 <Temo Taylor - Last Filed: 01/03/17 14:23> Objective - Vital Signs/Intake and Output Vital Signs (last 24 hours): Temp Pulse Resp BP Pulse Ox 97.6 F 90 20 103/64 99 01/03/17 08:17 01/03/17 08:17 01/03/17 08:17 01/03/17 08:17 01/03/17 08:17 Intake and Output: 01/03/17 01/03/17 06:59 18:59 Output Total 900 Balance -900 - Medications Medications: Current Medications Acetaminophen (Tylenol 325mg Tab) 650 mg PO Q6 PRN PRN Reason: Headache Cyanocobalamin (Vitamin B12 1000 Mcg Tab) 1,000 mcg PO DAILY [facility] Last Admin: 01/03/17 10:07 Dose: 1,000 mcg Diphenhydramine HCl (Benadryl) 25 mg IVP Q3H PRN PRN Reason: Other Last Admin: 01/03/17 13:33 Dose: 25 mg Hydromorphone HCl (Dilaudid) 2 mg IVP Q3H PRN PRN Reason: Pain, severe (8-10) Last Admin: 01/03/17 13:33 Dose: 2 mg Vancomycin HCl 1,000 mg/ (Sodium Chloride) 250 mls @ 166.6 mls/hr IVPB Q12H [facility] Last Admin: 01/03/17 11:31 Dose: 166.6 mls/hr Cefepime HCl (Maxipime Iv 2 Gm Premix) 2 gm in 100 mls @ 200 mls/hr IVPB Q12H [facility] Last Admin: 01/03/17 10:06 Dose: 200 mls/hr Mesalamine (Delzicol) 800 mg PO TID [facility] Last Admin: 01/03/17 13:32 Dose: 800 mg Mupirocin (Bactroban 2% Nasal) 0.5 gm MEKA BID [facility] Last Admin: 01/03/17 10:05 Dose: 0.5 gm Ondansetron HCl (Zofran Inj) 4 mg IVP Q8 PRN PRN Reason: Nausea/Vomiting Pantoprazole Sodium (Protonix Ec Tab) 40 mg PO DAILY [facility] Last Admin: 01/03/17 10:05 Dose: 40 mg Paroxetine HCl (Paxil) 10 mg PO DAILY [facility] Last Admin: 01/03/17 10:07 Dose: 10 mg Prednisone (Prednisone Tab) 60 mg PO DAILY [facility] Last Admin: 01/03/17 10:06 Dose: 60 mg Trazodone HCl (Desyrel) 50 mg PO HS [facility] Last Admin: 01/02/17 21:37 Dose: 50 mg - Labs Labs: 01/02/17 06:55 01/02/17 06:55 PT 11.2 SECONDS (9.7-12.2) 12/31/16 11:43 INR 1.0 12/31/16 11:43 APTT 28 SECONDS (21-34) 12/31/16 11:43 Attending/Attestation - Attestation I have personally seen and examined this patient.: Yes I have fully participated in the care of the patient.: Yes I have reviewed all pertinent clinical information, including history, physical exam and plan: Yes Notes (Text): 01/03/17 14:23 Pt was seen and examined at bedside on 01/02/17 Agree with above note and assessment
--- NOTE | 2017-01-02 22:23 | CP.PCM.PN ---
Subjective - Date & Time of Evaluation Date of Evaluation: 01/02/17 Time of Evaluation: 05:00 - Subjective Subjective: dictated Objective - Vital Signs/Intake and Output Vital Signs (last 24 hours): Temp Pulse Resp BP Pulse Ox 98.2 F 108 H 20 126/76 97 01/02/17 16:00 01/02/17 16:00 01/02/17 16:00 01/02/17 16:00 01/02/17 16:00 Intake and Output: 01/02/17 01/03/17 18:59 06:59 Intake Total 1050 Output Total 800 Balance 250 - Medications Medications: Current Medications Acetaminophen (Tylenol 325mg Tab) 650 mg PO Q6 PRN PRN Reason: Headache Cyanocobalamin (Vitamin B12 1000 Mcg Tab) 1,000 mcg PO DAILY [facility] Last Admin: 01/02/17 09:25 Dose: 1,000 mcg Diphenhydramine HCl (Benadryl) 25 mg IVP Q3H PRN PRN Reason: Other Last Admin: 01/02/17 21:37 Dose: 25 mg Hydromorphone HCl (Dilaudid) 2 mg IVP Q3H PRN PRN Reason: Pain, severe (8-10) Last Admin: 01/02/17 21:38 Dose: 2 mg Vancomycin HCl 1,000 mg/ (Sodium Chloride) 250 mls @ 166.6 mls/hr IVPB Q12H [facility] Last Admin: 01/02/17 12:34 Dose: 166.6 mls/hr Cefepime HCl (Maxipime Iv 2 Gm Premix) 2 gm in 100 mls @ 200 mls/hr IVPB Q12H [facility] Last Admin: 01/02/17 21:39 Dose: 200 mls/hr Mesalamine (Delzicol) 800 mg PO TID [facility] Last Admin: 01/02/17 17:41 Dose: 800 mg Mupirocin (Bactroban 2% Nasal) 0.5 gm MEKA BID [facility] Last Admin: 01/02/17 17:41 Dose: 0.5 gm Ondansetron HCl (Zofran Inj) 4 mg IVP Q8 PRN PRN Reason: Nausea/Vomiting Pantoprazole Sodium (Protonix Ec Tab) 40 mg PO DAILY [facility] Last Admin: 01/02/17 09:26 Dose: 40 mg Paroxetine HCl (Paxil) 10 mg PO DAILY [facility] Last Admin: 01/02/17 09:25 Dose: 10 mg Prednisone (Prednisone Tab) 60 mg PO DAILY [facility] Last Admin: 01/02/17 09:26 Dose: 60 mg Trazodone HCl (Desyrel) 50 mg PO [facility] Last Admin: 01/02/17 21:37 Dose: 50 mg - Labs Labs: 01/02/17 06:55 01/02/17 06:55 PT 11.2 SECONDS (9.7-12.2) 12/31/16 11:43 INR 1.0 12/31/16 11:43 APTT 28 SECONDS (21-34) 12/31/16 11:43
--- NOTE | 2017-01-02 22:59 | PN ---
DATE: 01/02/2017 HISTORY OF PRESENT ILLNESS: The patient is still complaining of pain in the left axilla. He still has a packing and the surgeon is going to follow him over a few days to clean the packing out. He remai ns afebrile. PHYSICAL EXAMINATION: VITAL SIGNS: T-max is 98.2, heart rate is 108. Blood pressure 126/76, respirations are 20. HEENT: Head is atraumatic, normocephalic. NECK: Supple. LUNGS: Clear. HEART: S1, S2, tachycardic. ABDOMEN: Soft and nontender. Colostomy is present. EXTREMITIES: No edema, clubbing, or cyanosis. His back wound, he says, is feeling a little less champ nful. LABORATORY DATA: White count is 12.6 today, hemoglobin 7.8, hematocrit is 25.3, platelet count is 32 6. He remains severely anemic. BUN is 11, creatinine is 0.9. ASSESSMENT AND PLAN: The patient has Crohn's disease, has a left axilla abscess status post I and D, and has perineal abscesses. He is on treatment now for Crohn's disease exacerbation and prednisone s hould be tapered by 10 mg per week to come down and he is also on vancomycin and Maxipime. His wound grew methicillin-resistant staphylococcus aureus in the axilla and the perineal ones grew citrobacte r and methicillin-resistant staphylococcus aureus. There was a blood culture which was positive for c oagulase-negative staph and he has been on vancomycin anyway because he did have a PICC line before a nd he has a PICC line right now. Santosh Daniel MD cc: [id number] TT: 01/02/2017 22:58:57 Confirmation # [id number] Dictation # [id number]
[2017-01-03] MEDS: DiphenhydrAMINE 50 mg/ml Inj IVP PRN ×8 (00:36→22:22)
[2017-01-03] MEDS: Pantoprazole 40 mg EC Tab PO SCH (10:05)
[2017-01-03] MEDS: Mupirocin 2% Ointment (NASAL) NAS SCH ×2 (10:05→18:09)
[2017-01-03] MEDS: Cefepime IV 2 gm in Dextrose 2 GM/100 ML BAG IVPB SCH ×2 (10:06→21:39)
--- NOTE | 2017-01-03 11:33 | CP.PCM.PN ---
Subjective - Date & Time of Evaluation Date of Evaluation: 01/03/17 Time of Evaluation: 07:00 - Subjective Subjective: GENERAL SURGERY PROGRESS NOTE FOR DR. WEBB Patient seen and examined at bedside. He reports pain in the left axilla. Receiving Dilaudid for the pain. Tolerating diet. No other complaints. Objective - Vital Signs/Intake and Output Vital Signs (last 24 hours): Temp Pulse Resp BP Pulse Ox 97.6 F 90 20 103/64 99 01/03/17 08:17 01/03/17 08:17 01/03/17 08:17 01/03/17 08:17 01/03/17 08:17 Intake and Output: 01/03/17 01/03/17 06:59 18:59 Output Total 900 Balance -900 - Medications Medications: Current Medications Acetaminophen (Tylenol 325mg Tab) 650 mg PO Q6 PRN PRN Reason: Headache Cyanocobalamin (Vitamin B12 1000 Mcg Tab) 1,000 mcg PO DAILY [facility] Last Admin: 01/03/17 10:07 Dose: 1,000 mcg Diphenhydramine HCl (Benadryl) 25 mg IVP Q3H PRN PRN Reason: Other Last Admin: 01/03/17 10:06 Dose: 25 mg Hydromorphone HCl (Dilaudid) 2 mg IVP Q3H PRN PRN Reason: Pain, severe (8-10) Last Admin: 01/03/17 10:06 Dose: 2 mg Vancomycin HCl 1,000 mg/ (Sodium Chloride) 250 mls @ 166.6 mls/hr IVPB Q12H [facility] Last Admin: 01/02/17 23:17 Dose: 166.6 mls/hr Cefepime HCl (Maxipime Iv 2 Gm Premix) 2 gm in 100 mls @ 200 mls/hr IVPB Q12H [facility] Last Admin: 01/03/17 10:06 Dose: 200 mls/hr Mesalamine (Delzicol) 800 mg PO TID [facility] Last Admin: 01/03/17 10:05 Dose: 800 mg Mupirocin (Bactroban 2% Nasal) 0.5 gm MEKA BID [facility] Last Admin: 01/03/17 10:05 Dose: 0.5 gm Ondansetron HCl (Zofran Inj) 4 mg IVP Q8 PRN PRN Reason: Nausea/Vomiting Pantoprazole Sodium (Protonix Ec Tab) 40 mg PO DAILY [facility] Last Admin: 01/03/17 10:05 Dose: 40 mg Paroxetine HCl (Paxil) 10 mg PO DAILY [facility] Last Admin: 01/03/17 10:07 Dose: 10 mg Prednisone (Prednisone Tab) 60 mg PO DAILY [facility] Last Admin: 01/03/17 10:06 Dose: 60 mg Trazodone HCl (Desyrel) 50 mg PO HS [facility] Last Admin: 01/02/17 21:37 Dose: 50 mg - Labs Labs: 01/02/17 06:55 01/02/17 06:55 PT 11.2 SECONDS (9.7-12.2) 12/31/16 11:43 INR 1.0 12/31/16 11:43 APTT 28 SECONDS (21-34) 12/31/16 11:43 - Constitutional Appears: Non-toxic, No Acute Distress - Respiratory Exam Respiratory Exam: NORMAL BREATHING PATTERN. absent: Respiratory Distress - Cardiovascular Exam Cardiovascular Exam: +S1, +S2 - Neurological Exam Neurological Exam: Alert, Awake, Oriented x3 - Psychiatric Exam Psychiatric exam: Normal Affect, Normal Mood - Skin Additional comments: Left axilla: packed with iodaform Dressing with serous drainage Assessment and Plan - Assessment and Plan (Free Text) Assessment: 21yo M with Crohn's disease and now left axillary abscess s/p I&D and lymph node biopsy POD#3 - Afebrile - Will FU AM labs - Axilla cx from 12/29 grew MRSA - Axilla cx from [place] on 12/31 has no growth @ 24hrs. - Will continue daily packing changes - Dressing changed this morning - Iodaform removed and repacked this AM - Pathology from [place]: 1 reactive lymph node - Discussed plan with Dr. Claudia Magallanes PGY-2
--- NOTE | 2017-01-03 14:39 | CP.PCM.PN ---
Subjective - Date & Time of Evaluation Date of Evaluation: 01/03/17 Time of Evaluation: 11:00 - Subjective Subjective: clinically same Objective - Vital Signs/Intake and Output Vital Signs (last 24 hours): Temp Pulse Resp BP Pulse Ox 97.6 F 90 20 103/64 99 01/03/17 08:17 01/03/17 08:17 01/03/17 08:17 01/03/17 08:17 01/03/17 08:17 Intake and Output: 01/03/17 01/03/17 06:59 18:59 Output Total 900 Balance -900 - Medications Medications: Current Medications Acetaminophen (Tylenol 325mg Tab) 650 mg PO Q6 PRN PRN Reason: Headache Cyanocobalamin (Vitamin B12 1000 Mcg Tab) 1,000 mcg PO DAILY [facility] Last Admin: 01/03/17 10:07 Dose: 1,000 mcg Diphenhydramine HCl (Benadryl) 25 mg IVP Q3H PRN PRN Reason: Other Last Admin: 01/03/17 13:33 Dose: 25 mg Hydromorphone HCl (Dilaudid) 2 mg IVP Q3H PRN PRN Reason: Pain, severe (8-10) Last Admin: 01/03/17 13:33 Dose: 2 mg Vancomycin HCl 1,000 mg/ (Sodium Chloride) 250 mls @ 166.6 mls/hr IVPB Q12H [facility] Last Admin: 01/03/17 11:31 Dose: 166.6 mls/hr Cefepime HCl (Maxipime Iv 2 Gm Premix) 2 gm in 100 mls @ 200 mls/hr IVPB Q12H [facility] Last Admin: 01/03/17 10:06 Dose: 200 mls/hr Mesalamine (Delzicol) 800 mg PO TID [facility] Last Admin: 01/03/17 13:32 Dose: 800 mg Mupirocin (Bactroban 2% Nasal) 0.5 gm MEKA BID [facility] Last Admin: 01/03/17 10:05 Dose: 0.5 gm Ondansetron HCl (Zofran Inj) 4 mg IVP Q8 PRN PRN Reason: Nausea/Vomiting Pantoprazole Sodium (Protonix Ec Tab) 40 mg PO DAILY [facility] Last Admin: 01/03/17 10:05 Dose: 40 mg Paroxetine HCl (Paxil) 10 mg PO DAILY [facility] Last Admin: 01/03/17 10:07 Dose: 10 mg Prednisone (Prednisone Tab) 60 mg PO DAILY [facility] Last Admin: 01/03/17 10:06 Dose: 60 mg Trazodone HCl (Desyrel) 50 mg PO HS [facility] Last Admin: 01/02/17 21:37 Dose: 50 mg - Labs Labs: 01/02/17 06:55 01/02/17 06:55 PT 11.2 SECONDS (9.7-12.2) 12/31/16 11:43 INR 1.0 12/31/16 11:43 APTT 28 SECONDS (21-34) 12/31/16 11:43 - Constitutional Appears: Well - Head Exam Head Exam: ATRAUMATIC, NORMAL INSPECTION, NORMOCEPHALIC - Eye Exam Eye Exam: EOMI, Normal appearance, PERRL Pupil Exam: NORMAL ACCOMODATION, PERRL - ENT Exam ENT Exam: Mucous Membranes Moist, Normal Exam - Neck Exam Neck Exam: Full ROM, Normal Inspection. absent: Lymphadenopathy - Respiratory Exam Respiratory Exam: Decreased Breath Sounds - Cardiovascular Exam Cardiovascular Exam: REGULAR RHYTHM, +S1, +S2 - GI/Abdominal Exam GI & Abdominal Exam: Soft, Diminished Bowel Sounds - Rectal Exam Rectal Exam: Deferred
--- NOTE | 2017-01-03 19:17 | CP.PCM.PN ---
Subjective - Date & Time of Evaluation Date of Evaluation: 01/03/17 Time of Evaluation: 02:00 - Subjective Subjective: dictated Objective - Vital Signs/Intake and Output Vital Signs (last 24 hours): Temp Pulse Resp BP Pulse Ox 98.2 F 111 H 20 126/82 99 01/03/17 15:34 01/03/17 15:34 01/03/17 15:34 01/03/17 15:34 01/03/17 15:34 Intake and Output: 01/03/17 01/04/17 18:59 06:59 Intake Total 550 Balance 550 - Medications Medications: Current Medications Acetaminophen (Tylenol 325mg Tab) 650 mg PO Q6 PRN PRN Reason: Headache Cyanocobalamin (Vitamin B12 1000 Mcg Tab) 1,000 mcg PO DAILY [facility] Last Admin: 01/03/17 10:07 Dose: 1,000 mcg Diphenhydramine HCl (Benadryl) 25 mg IVP Q3H PRN PRN Reason: Other Last Admin: 01/03/17 16:26 Dose: 25 mg Hydromorphone HCl (Dilaudid) 2 mg IVP Q3H PRN PRN Reason: Pain, severe (8-10) Last Admin: 01/03/17 16:26 Dose: 2 mg Vancomycin HCl 1,000 mg/ (Sodium Chloride) 250 mls @ 166.6 mls/hr IVPB Q12H [facility] Last Admin: 01/03/17 11:31 Dose: 166.6 mls/hr Cefepime HCl (Maxipime Iv 2 Gm Premix) 2 gm in 100 mls @ 200 mls/hr IVPB Q12H [facility] Last Admin: 01/03/17 10:06 Dose: 200 mls/hr Mesalamine (Delzicol) 800 mg PO TID [facility] Last Admin: 01/03/17 18:09 Dose: 800 mg Mupirocin (Bactroban 2% Nasal) 0.5 gm MEKA BID [facility] Last Admin: 01/03/17 18:09 Dose: 0.5 gm Ondansetron HCl (Zofran Inj) 4 mg IVP Q8 PRN PRN Reason: Nausea/Vomiting Pantoprazole Sodium (Protonix Ec Tab) 40 mg PO DAILY [facility] Last Admin: 01/03/17 10:05 Dose: 40 mg Paroxetine HCl (Paxil) 10 mg PO DAILY [facility] Last Admin: 01/03/17 10:07 Dose: 10 mg Prednisone (Prednisone Tab) 60 mg PO DAILY [facility] Last Admin: 01/03/17 10:06 Dose: 60 mg Trazodone HCl (Desyrel) 50 mg PO HS [facility] Last Admin: 01/02/17 21:37 Dose: 50 mg - Labs Labs: 01/02/17 06:55 01/02/17 06:55 PT 11.2 SECONDS (9.7-12.2) 12/31/16 11:43 INR 1.0 12/31/16 11:43 APTT 28 SECONDS (21-34) 12/31/16 11:43
--- NOTE | 2017-01-03 19:56 | PN ---
DATE: 01/03/2017 SUBJECTIVE: The patient says he has pain still in the axillary and he showed me his photo on his ashlie ne, showing that how deep the wound is ad he is having a lot of pain because of that. He is on antib iotics and he tells that the Asacol tablet that he took was almost seen in his colostomy bag ab out. It seems that he has not absorbing and his food is undigested and is appearing in the colostomy bag and it seems to me that his bowel is not functioning and maybe he will be better with total yohannes ctomy, but this needs to be discussed with his GI as well as the surgeon. Right now, he is almost ne ar completion of his antibiotics. Hopefully the left axillary wound heals and the back is healing wi th multiple antibiotics and he already has resistant organisms and he is on pain medications and demetrio st getting addicted to this, developing this new axillary abscess, which forces to give him pain medi cation further. PHYSICAL EXAMINATION VITAL SIGNS: T-max is 98.2, heart rate is 111, blood pressure 126/82, respirations are 20. HEENT: Head is atraumatic, normocephalic. NECK: Supple. LUNGS: Clear. No crackles or rales present. HEART: Tachycardic. ABDOMEN: Has a colostomy bag. EXTREMITIES: No edema, clubbing or cyanosis. He is on his other medications, and I want to make sure he is getting the antibiotics, vancomycin and cefepime. He was started on steroids as I was hoping to treat this as an acute exacerbation of Croh n, but will reevaluate on Thursday how the situation is and will follow. The culture from there came out to be MRSA and he was already on vancomycin, but the sensitivity shows , which is pretty ba d for MRSA and the repeat culture, however, is negative so far. IMPRESSION: He has multiple abscesses in the peroneal area, left axillary area and has Crohn disease , which is not controlled, and is status post colostomy, and is dependent on pain medications. Santosh Daniel MD cc: [id number] TT: 01/03/2017 19:55:22 Confirmation # [id number] Dictation # [id number]
[2017-01-04] MEDS: DiphenhydrAMINE 50 mg/ml Inj IVP PRN ×7 (01:22→21:05)
[2017-01-04] MEDS: Mupirocin 2% Ointment (NASAL) NAS SCH ×2 (09:48→20:53)
[2017-01-04] MEDS: Cefepime IV 2 gm in Dextrose 2 GM/100 ML BAG IVPB SCH ×2 (09:48→21:01)
[2017-01-04] MEDS: Pantoprazole 40 mg EC Tab PO SCH (09:48)
--- NOTE | 2017-01-04 11:15 | CP.PCM.PN ---
Subjective - Date & Time of Evaluation Date of Evaluation: 01/04/17 Time of Evaluation: 07:00 - Subjective Subjective: GENERAL SURGERY PROGRESS NOTE FOR DR. WEBB Patient seen and examined at bedside. He reports pain in the left axilla. Receiving Dilaudid for the pain. Dressing was changed last night by nurse. Tolerating diet. His iodaform packing was removed and repacked. Objective - Vital Signs/Intake and Output Vital Signs (last 24 hours): Temp Pulse Resp BP Pulse Ox 98 F 85 20 110/70 99 01/04/17 07:56 01/04/17 07:56 01/04/17 07:56 01/04/17 07:56 01/04/17 07:56 - Medications Medications: Current Medications Acetaminophen (Tylenol 325mg Tab) 650 mg PO Q6 PRN PRN Reason: Headache Cyanocobalamin (Vitamin B12 1000 Mcg Tab) 1,000 mcg PO DAILY [facility] [place] Last Admin: 01/04/17 09:48 Dose: 1,000 mcg Diphenhydramine HCl (Benadryl) 25 mg IVP Q3H PRN PRN Reason: Other Last Admin: 01/04/17 08:22 Dose: 25 mg Hydromorphone HCl (Dilaudid) 2 mg IVP Q3H PRN PRN Reason: Pain, severe (8-10) Last Admin: 01/04/17 08:22 Dose: 2 mg Vancomycin HCl 1,000 mg/ (Sodium Chloride) 250 mls @ 166.6 mls/hr IVPB Q12H [facility] Last Admin: 01/03/17 22:21 Dose: 166.6 mls/hr Cefepime HCl (Maxipime Iv 2 Gm Premix) 2 gm in 100 mls @ 200 mls/hr IVPB Q12H [facility] Last Admin: 01/04/17 09:48 Dose: 200 mls/hr Mesalamine (Delzicol) 800 mg PO TID [facility] Last Admin: 01/04/17 09:48 Dose: 800 mg Mupirocin (Bactroban 2% Nasal) 0.5 gm MEKA BID [facility] [place] Last Admin: 01/04/17 09:48 Dose: 0.5 gm Ondansetron HCl (Zofran Inj) 4 mg IVP Q8 PRN PRN Reason: Nausea/Vomiting Pantoprazole Sodium (Protonix Ec Tab) 40 mg PO DAILY [facility] [place] Last Admin: 01/04/17 09:48 Dose: 40 mg Paroxetine HCl (Paxil) 10 mg PO DAILY [facility] [place] Last Admin: 01/04/17 09:48 Dose: 10 mg Prednisone (Prednisone Tab) 60 mg PO DAILY [facility] [place] Last Admin: 01/04/17 09:48 Dose: 60 mg Trazodone HCl (Desyrel) 50 mg PO HS [facility] Last Admin: 01/03/17 21:39 Dose: 50 mg - Labs Labs: 01/02/17 06:55 01/02/17 06:55 PT 11.2 SECONDS (9.7-12.2) 12/31/16 11:43 INR 1.0 12/31/16 11:43 APTT 28 SECONDS (21-34) 12/31/16 11:43 - Constitutional Appears: Non-toxic, No Acute Distress - Eye Exam Eye Exam: EOMI, Normal appearance - Respiratory Exam Respiratory Exam: NORMAL BREATHING PATTERN. absent: Respiratory Distress - Cardiovascular Exam Cardiovascular Exam: +S1, +S2 - GI/Abdominal Exam GI & Abdominal Exam: Soft. absent: Distended, Firm, Guarding, Rigid, Tenderness Additional comments: Colostomy with lot of stool and gas - Neurological Exam Neurological Exam: Alert, Awake, Oriented x3 - Psychiatric Exam Psychiatric exam: Normal Affect, Normal Mood - Skin Additional comments: Left axilla abscess: no drainage expressed, dressing changed Assessment and Plan - Assessment and Plan (Free Text) Assessment: 21yo M with Crohn's disease and now left axillary abscess s/p I&D and lymph node biopsy POD#4 - Afebrile - Will FU AM labs - Axilla cx from 12/29 grew MRSA - Axilla cx from OR on 12/31 has no growth @ final - Will continue daily packing changes - Dressing changed this morning - Iodaform removed and repacked this AM - Pathology from OR: 1 reactive lymph node - Discussed plan with Dr. Claudia Magallanes PGY-2
--- NOTE | 2017-01-04 16:23 | CP.PCM.PN ---
Subjective - Date & Time of Evaluation Date of Evaluation: 01/04/17 Objective - Vital Signs/Intake and Output Vital Signs (last 24 hours): Temp Pulse Resp BP Pulse Ox 98 F 85 20 110/70 99 01/04/17 07:56 01/04/17 07:56 01/04/17 07:56 01/04/17 07:56 01/04/17 07:56 - Medications Medications: Current Medications Acetaminophen (Tylenol 325mg Tab) 650 mg PO Q6 PRN PRN Reason: Headache Cyanocobalamin (Vitamin B12 1000 Mcg Tab) 1,000 mcg PO DAILY [facility] Last Admin: 01/04/17 09:48 Dose: 1,000 mcg Diphenhydramine HCl (Benadryl) 25 mg IVP Q3H PRN PRN Reason: Other Last Admin: 01/04/17 14:55 Dose: 25 mg Hydromorphone HCl (Dilaudid) 2 mg IVP Q3H PRN PRN Reason: Pain, severe (8-10) Last Admin: 01/04/17 14:57 Dose: 2 mg Vancomycin HCl 1,000 mg/ (Sodium Chloride) 250 mls @ 166.6 mls/hr IVPB Q12H [facility] Last Admin: 01/04/17 11:30 Dose: 166.6 mls/hr Cefepime HCl (Maxipime Iv 2 Gm Premix) 2 gm in 100 mls @ 200 mls/hr IVPB Q12H [facility] Last Admin: 01/04/17 09:48 Dose: 200 mls/hr Mesalamine (Delzicol) 800 mg PO TID [facility] Last Admin: 01/04/17 13:39 Dose: 800 mg Mupirocin (Bactroban 2% Nasal) 0.5 gm MEKA BID [facility] Last Admin: 01/04/17 09:48 Dose: 0.5 gm Ondansetron HCl (Zofran Inj) 4 mg IVP Q8 PRN PRN Reason: Nausea/Vomiting Pantoprazole Sodium (Protonix Ec Tab) 40 mg PO DAILY [facility] Last Admin: 01/04/17 09:48 Dose: 40 mg Paroxetine HCl (Paxil) 10 mg PO DAILY [facility] Last Admin: 01/04/17 09:48 Dose: 10 mg Prednisone (Prednisone Tab) 60 mg PO DAILY [facility] Last Admin: 01/04/17 09:48 Dose: 60 mg Trazodone HCl (Desyrel) 50 mg PO HS [facility] Last Admin: 01/03/17 21:39 Dose: 50 mg - Labs Labs: 01/02/17 06:55 01/02/17 06:55 PT 11.2 SECONDS (9.7-12.2) 12/31/16 11:43 INR 1.0 12/31/16 11:43 APTT 28 SECONDS (21-34) 12/31/16 11:43
[2017-01-05] MEDS: DiphenhydrAMINE 50 mg/ml Inj IVP PRN ×8 (00:07→21:32)
--- NOTE | 2017-01-05 08:57 | CP.PCM.PN ---
<Rita Cowan DO - Last Filed: 01/05/17 11:53> Subjective - Date & Time of Evaluation Date of Evaluation: 01/05/17 Time of Evaluation: 08:46 - Subjective Subjective: PGY1 Progress Note for Dr. Taylor: Patient seen and examined. Patient reports some pain in left axilla but it is well-controlled with current pain regimen. Objective - Vital Signs/Intake and Output Vital Signs (last 24 hours): Temp Pulse Resp BP Pulse Ox 98.2 F 100 H 18 119/71 100 01/04/17 23:35 01/04/17 23:35 01/04/17 23:35 01/04/17 23:35 01/04/17 23:35 Intake and Output: 01/05/17 01/05/17 06:59 18:59 Intake Total 950 Output Total 800 Balance 150 - Medications Medications: Current Medications Acetaminophen (Tylenol 325mg Tab) 650 mg PO Q6 PRN PRN Reason: Headache Cyanocobalamin (Vitamin B12 1000 Mcg Tab) 1,000 mcg PO DAILY [facility] Last Admin: 01/04/17 09:48 Dose: 1,000 mcg Diphenhydramine HCl (Benadryl) 25 mg IVP Q3H PRN PRN Reason: Other Last Admin: 01/05/17 06:30 Dose: 25 mg Hydromorphone HCl (Dilaudid) 2 mg IVP Q3 PRN PRN Reason: Pain, severe (8-10) Last Admin: 01/05/17 06:32 Dose: 2 mg Vancomycin HCl 1,000 mg/ (Sodium Chloride) 250 mls @ 166.6 mls/hr IVPB Q12H [facility] Last Admin: 01/04/17 22:03 Dose: 166.6 mls/hr Cefepime HCl (Maxipime Iv 2 Gm Premix) 2 gm in 100 mls @ 200 mls/hr IVPB Q12H [facility] Last Admin: 01/04/17 21:01 Dose: 200 mls/hr Mesalamine (Delzicol) 800 mg PO TID [facility] Last Admin: 01/04/17 18:04 Dose: 800 mg Mupirocin (Bactroban 2% Nasal) 0.5 gm MEKA BID [facility] Last Admin: 01/04/17 20:53 Dose: 0.5 gm Ondansetron HCl (Zofran Inj) 4 mg IVP Q8 PRN PRN Reason: Nausea/Vomiting Pantoprazole Sodium (Protonix Ec Tab) 40 mg PO DAILY [facility] Last Admin: 01/04/17 09:48 Dose: 40 mg Paroxetine HCl (Paxil) 10 mg PO DAILY [facility] Last Admin: 01/04/17 09:48 Dose: 10 mg Prednisone (Prednisone Tab) 60 mg PO DAILY [facility] Last Admin: 01/04/17 09:48 Dose: 60 mg Trazodone HCl (Desyrel) 50 mg PO HS [facility] Last Admin: 01/04/17 21:01 Dose: 50 mg - Labs Labs: 01/02/17 06:55 01/02/17 06:55 PT 11.2 SECONDS (9.7-12.2) 12/31/16 11:43 INR 1.0 12/31/16 11:43 APTT 28 SECONDS (21-34) 12/31/16 11:43 - Constitutional Appears: Non-toxic, No Acute Distress - Head Exam Head Exam: ATRAUMATIC, NORMOCEPHALIC - Eye Exam Eye Exam: EOMI - Respiratory Exam Respiratory Exam: NORMAL BREATHING PATTERN - GI/Abdominal Exam GI & Abdominal Exam: Soft Additional comments: colostomy with stool - Extremities Exam Additional comments: left axilla abscess- serous drainage, packing and dressing changed Assessment and Plan - Assessment and Plan (Free Text) Assessment: 21yo M with Crohn's disease and now left axillary abscess s/p I&D and lymph node biopsy POD#4 - Afebrile - will order repeat labs for today - Axilla cx from 12/29 grew MRSA, Axilla cx from OR on 12/31 has no growth on final report - Pathology from OR: 1 reactive lymph node - packing changes daily while inhouse, packing and dressing changed this morning - patient can be discharged from surgical standpoint with alternate day packing changes with 1/2 inch iodoform packing for one week, then follow up with Dr. Taylor in the office in 2 weeks. - D/W Dr. Taylor <Temo Taylor - Last Filed: 01/05/17 12:11> Objective - Vital Signs/Intake and Output Vital Signs (last 24 hours): Temp Pulse Resp BP Pulse Ox 97.8 F 103 H 20 112/71 99 01/05/17 08:54 01/05/17 08:54 01/05/17 08:54 01/05/17 08:54 01/05/17 08:54 Intake and Output: 01/05/17 01/05/17 06:59 18:59 Intake Total 950 Output Total 800 Balance 150 - Medications Medications: Current Medications Acetaminophen (Tylenol 325mg Tab) 650 mg PO Q6 PRN PRN Reason: Headache Cyanocobalamin (Vitamin B12 1000 Mcg Tab) 1,000 mcg PO DAILY [facility] Last Admin: 01/05/17 09:43 Dose: 1,000 mcg Diphenhydramine HCl (Benadryl) 25 mg IVP Q3H PRN PRN Reason: Other Last Admin: 01/05/17 09:43 Dose: 25 mg Hydromorphone HCl (Dilaudid) 2 mg IVP Q3 PRN PRN Reason: Pain, severe (8-10) Last Admin: 01/05/17 09:43 Dose: 2 mg Vancomycin HCl 1,000 mg/ (Sodium Chloride) 250 mls @ 166.6 mls/hr IVPB Q12H [facility] Last Admin: 01/05/17 11:33 Dose: 166.6 mls/hr Cefepime HCl (Maxipime Iv 2 Gm Premix) 2 gm in 100 mls @ 200 mls/hr IVPB Q12H [facility] Last Admin: 01/05/17 09:44 Dose: 200 mls/hr Mesalamine (Delzicol) 800 mg PO TID [facility] Last Admin: 01/05/17 09:43 Dose: 800 mg Mupirocin (Bactroban 2% Nasal) 0.5 gm MEKA BID [facility] Last Admin: 01/04/17 20:53 Dose: 0.5 gm Ondansetron HCl (Zofran Inj) 4 mg IVP Q8 PRN PRN Reason: Nausea/Vomiting Pantoprazole Sodium (Protonix Ec Tab) 40 mg PO DAILY [facility] Last Admin: 01/05/17 09:42 Dose: 40 mg Paroxetine HCl (Paxil) 10 mg PO DAILY [facility] Last Admin: 01/05/17 09:43 Dose: 10 mg Prednisone (Prednisone Tab) 60 mg PO DAILY [facility] Last Admin: 01/05/17 09:42 Dose: 60 mg Trazodone HCl (Desyrel) 50 mg PO HS [facility] Last Admin: 01/04/17 21:01 Dose: 50 mg - Labs Labs: 01/05/17 10:25 01/05/17 10:25 PT 11.2 SECONDS (9.7-12.2) 12/31/16 11:43 INR 1.0 12/31/16 11:43 APTT 28 SECONDS (21-34) 12/31/16 11:43 Attending/Attestation - Attestation I have personally seen and examined this patient.: Yes I have fully participated in the care of the patient.: Yes I have reviewed all pertinent clinical information, including history, physical exam and plan: Yes Notes (Text): 01/05/17 12:10 Pt was seen and examined at bedside Agree with above note and assessment Pt can be DC home Alternate day dressing change. Plan d.w pt in detail F.U as out pt.
[2017-01-05] MEDS: Pantoprazole 40 mg EC Tab PO SCH (09:42)
[2017-01-05] MEDS: Cefepime IV 2 gm in Dextrose 2 GM/100 ML BAG IVPB SCH ×2 (09:44→21:31)
--- NOTE | 2017-01-05 09:47 | CP.PCM.PN ---
Subjective - Date & Time of Evaluation Date of Evaluation: 01/05/17 Time of Evaluation: 09:00 - Subjective Subjective: PGY2 on medicine Dr. Barrett service: Patient seen and examined at bedside this morning. POD#4 left axilla I&D with lymph node biopsy. Patient complains colostomy filled up fast and intact Mesalamine was observed in the bag. Patient also complains left axilla and perianal pain. Objective - Vital Signs/Intake and Output Vital Signs (last 24 hours): Temp Pulse Resp BP Pulse Ox 97.8 F 103 H 20 112/71 99 01/05/17 08:54 01/05/17 08:54 01/05/17 08:54 01/05/17 08:54 01/05/17 08:54 Intake and Output: 01/05/17 01/05/17 06:59 18:59 Intake Total 950 Output Total 800 Balance 150 - Medications Medications: Current Medications Acetaminophen (Tylenol 325mg Tab) 650 mg PO Q6 PRN PRN Reason: Headache Cyanocobalamin (Vitamin B12 1000 Mcg Tab) 1,000 mcg PO DAILY [facility] Last Admin: 01/05/17 09:43 Dose: 1,000 mcg Diphenhydramine HCl (Benadryl) 25 mg IVP Q3H PRN PRN Reason: Other Last Admin: 01/05/17 09:43 Dose: 25 mg Hydromorphone HCl (Dilaudid) 2 mg IVP Q3 PRN PRN Reason: Pain, severe (8-10) Last Admin: 01/05/17 09:43 Dose: 2 mg Vancomycin HCl 1,000 mg/ (Sodium Chloride) 250 mls @ 166.6 mls/hr IVPB Q12H [facility] Last Admin: 01/04/17 22:03 Dose: 166.6 mls/hr Cefepime HCl (Maxipime Iv 2 Gm Premix) 2 gm in 100 mls @ 200 mls/hr IVPB Q12H [facility] Last Admin: 01/05/17 09:44 Dose: 200 mls/hr Mesalamine (Delzicol) 800 mg PO TID [facility] Last Admin: 01/05/17 09:43 Dose: 800 mg Mupirocin (Bactroban 2% Nasal) 0.5 gm MEKA BID [facility] Last Admin: 01/04/17 20:53 Dose: 0.5 gm Ondansetron HCl (Zofran Inj) 4 mg IVP Q8 PRN PRN Reason: Nausea/Vomiting Pantoprazole Sodium (Protonix Ec Tab) 40 mg PO DAILY [facility] Last Admin: 01/05/17 09:42 Dose: 40 mg Paroxetine HCl (Paxil) 10 mg PO DAILY [facility] Last Admin: 01/05/17 09:43 Dose: 10 mg Prednisone (Prednisone Tab) 60 mg PO DAILY [facility] Last Admin: 01/05/17 09:42 Dose: 60 mg Trazodone HCl (Desyrel) 50 mg PO HS [facility] Last Admin: 01/04/17 21:01 Dose: 50 mg - Labs Labs: 01/02/17 06:55 01/02/17 06:55 PT 11.2 SECONDS (9.7-12.2) 12/31/16 11:43 INR 1.0 12/31/16 11:43 APTT 28 SECONDS (21-34) 12/31/16 11:43 - Constitutional Appears: Non-toxic, No Acute Distress - Head Exam Head Exam: NORMOCEPHALIC - Eye Exam Eye Exam: Normal appearance Pupil Exam: NORMAL ACCOMODATION - ENT Exam ENT Exam: Mucous Membranes Moist - Respiratory Exam Respiratory Exam: Clear to Ausculation Bilateral, NORMAL BREATHING PATTERN. absent: Rhonchi, Wheezes - Cardiovascular Exam Cardiovascular Exam: REGULAR RHYTHM, +S1, +S2. absent: Gallop, Rubs - GI/Abdominal Exam GI & Abdominal Exam: Soft, Normal Bowel Sounds. absent: Tenderness Additional comments: colostomy bag full with partially digested food, red Mesalamine pill can be seen - Extremities Exam Extremities Exam: absent: Pedal Edema Additional comments: left axilla dressing c/d/i - Neurological Exam Neurological Exam: Alert, Awake, Oriented x3 - Psychiatric Exam Psychiatric exam: Normal Mood - Skin Skin Exam: Dry, Intact Assessment and Plan - Assessment and Plan (Free Text) Assessment: Perianal abscess Dr. Daniel consulted, help appreciated- As per Dr. Daniel, patient will need to be on antibiotics until 01/12. Dr. Taylor consulted, help appreciated. Culture showed MRSA and Citrobacter diversus. Initial blood culture showed coag negative Staph. Repeat blood culture negative. CT showed no new inflammation, surgery intervention at this time. Cefepime 2g IV q12H started on 12/24. Vancomycin 1g IV q12H started on 12/22. Continue Dilaudid 2mg IVP Q3h Continue Benadryl 25mg IVP Q3h Wound care nursing referral Axillary pain s/p day #4 Incision and drainage of abscess, debridement of abscess wall cavity , lymph node pathology showed reactive lymph node. Wound care nurse referral. Wound culture MRSA positive on 12/29, repeat culture from [place] negative Vancomycin 1g IV q12H started on 12/22. Crohn's colitis Mesalamine 800mg PO TID. Prednisone 60mg PO daily per Dr. Daniel. Prophylactic measure SCD, Protonix. Management per Dr. Barrett
[2017-01-05 10:46] LABS: BASO # 0.2 K/uL (0.0-0.2); BASO % 0.9 % (0.0-2.0); EOS # 0.2 K/uL (0.0-0.7); EOS % 1.2 % (0.0-4.0); HEMATOCRIT 29.3 % (35.0-51.0); LYMPH % 32.9 % (20.0-40.0); MEAN CORPUSCULAR HEMOGLOBIN 18.2 pg (27.0-31.0); MEAN CORPUSCULAR HGB CONC 28.9 g/dL (33.0-37.0); MEAN PLATELET VOLUME 8.4 fL (7.2-11.7); MONO # 1.1 K/uL (0.0-0.8); MONO % 6.3 % (0.0-10.0); NRBC % 0.1 % (0.0-2.0); RED CELL DISTRIBUTION WIDTH 17.5 % (11.5-14.5); WHITE BLOOD COUNT 18.1 K/uL (4.8-10.8)
[2017-01-05 10:55] LABS: CHLORIDE 95 mmol/L (98-107); POTASSIUM 3.6 mmol/L (3.6-5.2); SODIUM 136 mmol/L (132-148)
[2017-01-05 10:58] LABS: CARBON DIOXIDE 30 mmol/L (22-30); GFR AFRICAN-AMERICAN > 60
[2017-01-05 10:59] LABS: BLOOD UREA NITROGEN 17 mg/dL (9-20); CALCIUM 8.3 mg/dl (8.6-10.4); GLUCOSE,RANDOM 83 mg/dL (75-110)
[2017-01-05] MEDS: Mupirocin 2% Ointment (NASAL) NAS SCH ×2 (12:46→18:30)
--- NOTE | 2017-01-05 16:02 | CP.PCM.PN ---
Subjective - Date & Time of Evaluation Date of Evaluation: 01/05/17 Time of Evaluation: 03:30 - Subjective Subjective: dictated Objective - Vital Signs/Intake and Output Vital Signs (last 24 hours): Temp Pulse Resp BP Pulse Ox 98.3 F 103 H 18 101/64 96 01/05/17 15:50 01/05/17 15:50 01/05/17 15:50 01/05/17 15:50 01/05/17 15:50 Intake and Output: 01/05/17 01/05/17 06:59 18:59 Intake Total 950 Output Total 800 Balance 150 - Medications Medications: Current Medications Acetaminophen (Tylenol 325mg Tab) 650 mg PO Q6 PRN PRN Reason: Headache Cyanocobalamin (Vitamin B12 1000 Mcg Tab) 1,000 mcg PO DAILY [facility] Last Admin: 01/05/17 09:43 Dose: 1,000 mcg Diphenhydramine HCl (Benadryl) 25 mg IVP Q3H PRN PRN Reason: Other Last Admin: 01/05/17 15:42 Dose: 25 mg Hydromorphone HCl (Dilaudid) 2 mg IVP Q3 PRN PRN Reason: Pain, severe (8-10) Last Admin: 01/05/17 15:41 Dose: 2 mg Vancomycin HCl 1,000 mg/ (Sodium Chloride) 250 mls @ 166.6 mls/hr IVPB Q12H [facility] Last Admin: 01/05/17 11:33 Dose: 166.6 mls/hr Cefepime HCl (Maxipime Iv 2 Gm Premix) 2 gm in 100 mls @ 200 mls/hr IVPB Q12H [facility] Last Admin: 01/05/17 09:44 Dose: 200 mls/hr Mesalamine (Delzicol) 800 mg PO TID [facility] Last Admin: 01/05/17 13:28 Dose: 800 mg Mupirocin (Bactroban 2% Nasal) 0.5 gm MEKA BID [facility] Last Admin: 01/05/17 12:46 Dose: 0.5 gm Ondansetron HCl (Zofran Inj) 4 mg IVP Q8 PRN PRN Reason: Nausea/Vomiting Pantoprazole Sodium (Protonix Ec Tab) 40 mg PO DAILY [facility] Last Admin: 01/05/17 09:42 Dose: 40 mg Paroxetine HCl (Paxil) 10 mg PO DAILY [facility] Last Admin: 01/05/17 09:43 Dose: 10 mg Prednisone (Prednisone Tab) 50 mg PO DAILY [facility] Trazodone HCl (Desyrel) 50 mg PO [facility] Last Admin: 01/04/17 21:01 Dose: 50 mg - Labs Labs: 01/05/17 10:25 01/05/17 10:25 PT 11.2 SECONDS (9.7-12.2) 12/31/16 11:43 INR 1.0 12/31/16 11:43 APTT 28 SECONDS (21-34) 12/31/16 11:43
--- NOTE | 2017-01-05 16:30 | PN ---
DATE: 01/05/2017 SUBJECTIVE: The patient is feeling a little better. His left _axilla is healing and he is able to raise his shouldert and he was cleared by surgery to go home tomorrow and his back is also improving at this time. He was put on steroids. I would taper it by 10. His white count went up, most likely from the steroids. At this time, as he is clinically looking better, he is told to follow with the GI and surgeon in a tertiary care place as he may need total _ colectomy___ as he had undigested food in the colostomy and I will also taper off the steroids by 10 mg as his white count has increased, most likely secondary to steroids. He does have a PICC line, however, at this time. PHYSICAL EXAMINATION: VITAL SIGNS: T-max is 98.3, pulse is 103, blood pressure is 101/64, respirations are 18. HEENT: Head is atraumatic, normocephalic. NECK: Supple and left axilla is healing. He was cleared by surgery. HEART: S1, S2 is regular but tachycardic. LUNGS: Clear. ABDOMEN: He has a colostomy bag. EXTREMITIES: No edema. BACK: Wound is healing according to him. LABORATORY DATA: The patient's white count is 18.1, hemoglobin is 8.5, hematocrit 29.3 and creatinine is 0.6. I have renewed the vancomycin for now and will discuss plan with Dr. Barrett, to let him go home off antibiotics and to continue his medications for the Crohn's and to follow with GI as well as the surgeon if needed. We will follow and hopefully, he could go home off antibiotics. Santosh Daniel MD cc: [id number] TT: 01/05/2017 16:29:15 Confirmation # [id number] Dictation # [id number]
--- NOTE | 2017-01-05 18:00 | CP.PCM.PN ---
Subjective - Date & Time of Evaluation Date of Evaluation: 01/05/17 Time of Evaluation: 10:40 - Subjective Subjective: clinically same Objective - Vital Signs/Intake and Output Vital Signs (last 24 hours): Temp Pulse Resp BP Pulse Ox 98.3 F 103 H 18 101/64 96 01/05/17 15:50 01/05/17 15:50 01/05/17 15:50 01/05/17 15:50 01/05/17 15:50 Intake and Output: 01/05/17 01/05/17 06:59 18:59 Intake Total 950 Output Total 800 Balance 150 - Medications Medications: Current Medications Acetaminophen (Tylenol 325mg Tab) 650 mg PO Q6 PRN PRN Reason: Headache Cyanocobalamin (Vitamin B12 1000 Mcg Tab) 1,000 mcg PO DAILY [facility] Last Admin: 01/05/17 09:43 Dose: 1,000 mcg Diphenhydramine HCl (Benadryl) 25 mg IVP Q3H PRN PRN Reason: Other Last Admin: 01/05/17 15:42 Dose: 25 mg Hydromorphone HCl (Dilaudid) 2 mg IVP Q3 PRN PRN Reason: Pain, severe (8-10) Last Admin: 01/05/17 15:41 Dose: 2 mg Vancomycin HCl 1,000 mg/ (Sodium Chloride) 250 mls @ 166.6 mls/hr IVPB Q12H [facility] Last Admin: 01/05/17 11:33 Dose: 166.6 mls/hr Cefepime HCl (Maxipime Iv 2 Gm Premix) 2 gm in 100 mls @ 200 mls/hr IVPB Q12H [facility] Last Admin: 01/05/17 09:44 Dose: 200 mls/hr Mesalamine (Delzicol) 800 mg PO TID [facility] Last Admin: 01/05/17 13:28 Dose: 800 mg Mupirocin (Bactroban 2% Nasal) 0.5 gm MEKA BID [facility] Last Admin: 01/05/17 12:46 Dose: 0.5 gm Ondansetron HCl (Zofran Inj) 4 mg IVP Q8 PRN PRN Reason: Nausea/Vomiting Pantoprazole Sodium (Protonix Ec Tab) 40 mg PO DAILY [facility] Last Admin: 01/05/17 09:42 Dose: 40 mg Paroxetine HCl (Paxil) 10 mg PO DAILY [facility] Last Admin: 01/05/17 09:43 Dose: 10 mg Prednisone (Prednisone Tab) 40 mg PO DAILY [facility] Prednisone (Prednisone Tab) 10 mg PO DAILY [facility] Trazodone HCl (Desyrel) 50 mg PO HS [facility] Last Admin: 01/04/17 21:01 Dose: 50 mg - Labs Labs: 01/05/17 10:25 01/05/17 10:25 PT 11.2 SECONDS (9.7-12.2) 12/31/16 11:43 INR 1.0 12/31/16 11:43 APTT 28 SECONDS (21-34) 12/31/16 11:43 - Constitutional Appears: Well - Head Exam Head Exam: ATRAUMATIC, NORMAL INSPECTION, NORMOCEPHALIC - Eye Exam Eye Exam: EOMI, Normal appearance, PERRL Pupil Exam: NORMAL ACCOMODATION, PERRL - ENT Exam ENT Exam: Mucous Membranes Moist, Normal Exam - Neck Exam Neck Exam: Full ROM, Normal Inspection. absent: Lymphadenopathy - Respiratory Exam Respiratory Exam: Decreased Breath Sounds - Cardiovascular Exam Cardiovascular Exam: REGULAR RHYTHM, +S1, +S2 - GI/Abdominal Exam GI & Abdominal Exam: Soft, Diminished Bowel Sounds - Rectal Exam Rectal Exam: Deferred
[2017-01-06] MEDS: DiphenhydrAMINE 50 mg/ml Inj IVP PRN ×8 (00:29→22:20)
--- NOTE | 2017-01-06 07:04 | CP.PCM.PN ---
<Antonio Foster - Last Filed: 01/06/17 13:31> Subjective - Date & Time of Evaluation Date of Evaluation: 01/06/17 Time of Evaluation: 07:15 - Subjective Subjective: Medicine note- Dr. Barrett's service Patient was seen and examined at bedside. Patient currently has no acute complaints. He says he no longer follows with the GI doctor in [facility] because that doctor is moving down to [facility] this week. He states he found a Dr. Birch, who he plans to see at [facility]. No events overnight, per nursing. Objective - Vital Signs/Intake and Output Vital Signs (last 24 hours): Temp Pulse Resp BP Pulse Ox 97.9 F 104 H 18 105/65 95 01/06/17 00:00 01/06/17 00:00 01/06/17 00:00 01/06/17 00:00 01/06/17 00:00 Intake and Output: 01/06/17 01/06/17 06:59 18:59 Output Total 1100 Balance -1100 - Medications Medications: Current Medications Acetaminophen (Tylenol 325mg Tab) 650 mg PO Q6 PRN PRN Reason: Headache Cyanocobalamin (Vitamin B12 1000 Mcg Tab) 1,000 mcg PO DAILY [facility] Last Admin: 01/05/17 09:43 Dose: 1,000 mcg Diphenhydramine HCl (Benadryl) 25 mg IVP Q3H PRN PRN Reason: Other Last Admin: 01/06/17 06:20 Dose: 25 mg Hydromorphone HCl (Dilaudid) 2 mg IVP Q3 PRN PRN Reason: Pain, severe (8-10) Last Admin: 01/06/17 06:21 Dose: 2 mg Vancomycin HCl 1,000 mg/ (Sodium Chloride) 250 mls @ 166.6 mls/hr IVPB Q12H [facility] Last Admin: 01/05/17 23:14 Dose: 166.6 mls/hr Cefepime HCl (Maxipime Iv 2 Gm Premix) 2 gm in 100 mls @ 200 mls/hr IVPB Q12H [facility] Last Admin: 01/05/17 21:31 Dose: 200 mls/hr Mesalamine (Delzicol) 800 mg PO TID [facility] Last Admin: 01/05/17 18:30 Dose: 800 mg Mupirocin (Bactroban 2% Nasal) 0.5 gm MEKA BID [facility] Last Admin: 01/05/17 18:30 Dose: 0.5 gm Ondansetron HCl (Zofran Inj) 4 mg IVP Q8 PRN PRN Reason: Nausea/Vomiting Pantoprazole Sodium (Protonix Ec Tab) 40 mg PO DAILY [facility] Last Admin: 01/05/17 09:42 Dose: 40 mg Paroxetine HCl (Paxil) 10 mg PO DAILY [facility] Last Admin: 01/05/17 09:43 Dose: 10 mg Prednisone (Prednisone Tab) 40 mg PO DAILY [facility] Prednisone (Prednisone Tab) 10 mg PO DAILY [facility] Last Admin: 01/05/17 18:38 Dose: 10 mg Trazodone HCl (Desyrel) 50 mg PO HS [facility] Last Admin: 01/05/17 21:31 Dose: 50 mg - Labs Labs: 01/05/17 10:25 01/05/17 10:25 PT 11.2 SECONDS (9.7-12.2) 12/31/16 11:43 INR 1.0 12/31/16 11:43 APTT 28 SECONDS (21-34) 12/31/16 11:43 - Constitutional Appears: Non-toxic, No Acute Distress - Head Exam Head Exam: ATRAUMATIC, NORMAL INSPECTION, NORMOCEPHALIC - Eye Exam Pupil Exam: NORMAL ACCOMODATION, PERRL - ENT Exam ENT Exam: Mucous Membranes Moist - Respiratory Exam Respiratory Exam: Clear to Ausculation Bilateral, NORMAL BREATHING PATTERN. absent: Prolonged Expiratory Phase, Rales, Rhonchi, Wheezes - Cardiovascular Exam Cardiovascular Exam: REGULAR RHYTHM, +S1, +S2 - GI/Abdominal Exam GI & Abdominal Exam: Soft, Normal Bowel Sounds. absent: Distended, Tenderness, Diminished Bowel Sounds, Hernia, Hypoactive Bowel Sounds Additional comments: colostomy bag still present Assessment and Plan - Assessment and Plan (Free Text) Assessment: Perianal abscess Dr. Daniel consulted, help appreciated- As per Dr. Daniel, patient will need to be on antibiotics until 01/12. Dr. Romero consulted, help appreciated. Culture showed MRSA and Citrobacter diversus. Initial blood culture showed coag negative Staph. Repeat blood culture negative. CT showed no new inflammation, surgery intervention at this time. Cefepime 2g IV q12H started on 12/24. Vancomycin 1g IV q12H started on 12/22. Continue Dilaudid 2mg IVP Q3h Continue Benadryl 25mg IVP Q3h Wound care nursing referral Axillary pain s/p day #4 Incision and drainage of abscess, debridement of abscess wall cavity , lymph node pathology showed reactive lymph node. Wound care nurse referral. Wound culture MRSA positive on 12/29, repeat culture from [place] negative Vancomycin 1g IV q12H started on 12/22. Crohn's colitis Mesalamine 800mg PO TID. Prednisone 60mg PO daily per Dr. Daniel. Prophylactic measure SCD, Protonix. Management per Dr. Barrett As per Dr. Barrett, patient is to remain here until cleared by ID to go home. <Osvaldo Barrett S - Last Filed: 01/13/17 23:20> Objective - Vital Signs/Intake and Output Vital Signs (last 24 hours): Temp Pulse Resp BP Pulse Ox 98.1 F 106 H 20 112/77 99 01/13/17 15:51 01/13/17 15:51 01/13/17 15:51 01/13/17 15:51 01/13/17 15:51 Intake and Output: 01/13/17 01/14/17 18:59 06:59 Intake Total 650 Output Total 4 Balance 646 - Medications Medications: Current Medications Diphenhydramine HCl (Benadryl) 25 mg IVP Q3H PRN PRN Reason: Other Last Admin: 01/13/17 21:26 Dose: 25 mg Hydromorphone HCl (Dilaudid) 2 mg IVP Q3 PRN PRN Reason: Pain, severe (8-10) Last Admin: 01/13/17 21:26 Dose: 2 mg Vancomycin HCl 1,000 mg/ (Sodium Chloride) 250 mls @ 166.6 mls/hr IVPB Q12H [facility] Last Admin: 01/13/17 22:57 Dose: 166.6 mls/hr Cefepime HCl (Maxipime Iv 2 Gm Premix) 2 gm in 100 mls @ 200 mls/hr IVPB Q12H [facility] Stop: 01/17/17 22:01 Last Admin: 01/13/17 21:28 Dose: 200 mls/hr Mesalamine (Delzicol) 800 mg PO TID [facility] Last Admin: 01/13/17 18:18 Dose: 800 mg Mupirocin (Bactroban 2% Nasal) 0.5 gm MEKA BID [facility] Last Admin: 01/13/17 18:14 Dose: 0.5 gm Pantoprazole Sodium (Protonix Inj) 40 mg IVP DAILY [facility] Last Admin: 01/13/17 09:23 Dose: 40 mg Paroxetine HCl (Paxil) 10 mg PO DAILY [facility] Last Admin: 01/13/17 09:22 Dose: 10 mg Prednisone (Prednisone Tab) 20 mg PO DAILY [facility] Prednisone (Prednisone Tab) 10 mg PO DAILY [facility] Trazodone HCl (Desyrel) 50 mg PO HS [facility] Last Admin: 01/13/17 21:26 Dose: 50 mg - Labs Labs: 01/13/17 06:49 01/13/17 06:49 PT 11.2 SECONDS (9.7-12.2) 12/31/16 11:43 INR 1.0 12/31/16 11:43 APTT 28 SECONDS (21-34) 12/31/16 11:43 Assessment and Plan (1) Abdominal pain Status: Acute (2) Abscess Status: Acute (3) Constipation Status: Acute (4) Crohn disease Status: Acute (5) Diarrhea Status: Acute (6) Encounter for wound care Status: Acute (7) Fever Status: Acute (8) Foreign body Status: Acute (9) Intractable abdominal pain Status: Acute (10) Intractable pain Status: Acute (11) Prophylactic measure Status: Acute (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 lazaro romero pt been told ot go to [facility] for further work up rather than dr. birch as pt has previous md from [facility] he may move to [facility] as pe pt but adv to see other md and asked pt to have mom or sister [facility]
--- NOTE | 2017-01-06 09:10 | CP.PCM.PN ---
<Rita Cowan DO - Last Filed: 01/06/17 09:06> Subjective - Date & Time of Evaluation Date of Evaluation: 01/06/17 Time of Evaluation: 09:06 - Subjective Subjective: PGY1 Progress Note for Dr. Taylor: Patient seen and examined. Patient eating well, no acute complaints. No events overnight per nursing report. Objective - Vital Signs/Intake and Output Vital Signs (last 24 hours): Temp Pulse Resp BP Pulse Ox 97.9 F 94 H 20 109/65 100 01/06/17 08:30 01/06/17 08:30 01/06/17 08:30 01/06/17 08:30 01/06/17 08:30 Intake and Output: 01/06/17 01/06/17 06:59 18:59 Output Total 1100 Balance -1100 - Medications Medications: Current Medications Cyanocobalamin (Vitamin B12 1000 Mcg Tab) 1,000 mcg PO DAILY [facility] Last Admin: 01/05/17 09:43 Dose: 1,000 mcg Diphenhydramine HCl (Benadryl) 25 mg IVP Q3H PRN PRN Reason: Other Last Admin: 01/06/17 06:20 Dose: 25 mg Hydromorphone HCl (Dilaudid) 2 mg IVP Q3 PRN PRN Reason: Pain, severe (8-10) Last Admin: 01/06/17 06:21 Dose: 2 mg Vancomycin HCl 1,000 mg/ (Sodium Chloride) 250 mls @ 166.6 mls/hr IVPB Q12H [facility] Last Admin: 01/05/17 23:14 Dose: 166.6 mls/hr Cefepime HCl (Maxipime Iv 2 Gm Premix) 2 gm in 100 mls @ 200 mls/hr IVPB Q12H [facility] Last Admin: 01/05/17 21:31 Dose: 200 mls/hr Mesalamine (Delzicol) 800 mg PO TID [facility] Last Admin: 01/05/17 18:30 Dose: 800 mg Mupirocin (Bactroban 2% Nasal) 0.5 gm MEKA BID [facility] Last Admin: 01/05/17 18:30 Dose: 0.5 gm Pantoprazole Sodium (Protonix Ec Tab) 40 mg PO DAILY [facility] Last Admin: 01/05/17 09:42 Dose: 40 mg Paroxetine HCl (Paxil) 10 mg PO DAILY [facility] Last Admin: 01/05/17 09:43 Dose: 10 mg Prednisone (Prednisone Tab) 40 mg PO DAILY [facility] Prednisone (Prednisone Tab) 10 mg PO DAILY [facility] Last Admin: 01/05/17 18:38 Dose: 10 mg Trazodone HCl (Desyrel) 50 mg PO HS [facility] Last Admin: 01/05/17 21:31 Dose: 50 mg - Labs Labs: 01/05/17 10:25 01/05/17 10:25 PT 11.2 SECONDS (9.7-12.2) 12/31/16 11:43 INR 1.0 12/31/16 11:43 APTT 28 SECONDS (21-34) 12/31/16 11:43 - Constitutional Appears: Non-toxic, No Acute Distress - Head Exam Head Exam: ATRAUMATIC, NORMOCEPHALIC - Eye Exam Eye Exam: EOMI - ENT Exam ENT Exam: Mucous Membranes Moist - Respiratory Exam Respiratory Exam: NORMAL BREATHING PATTERN - GI/Abdominal Exam Additional comments: colostomy bag with partially digested food - Extremities Exam Additional comments: left axilla packing changed and repacked, new dressing applied - Neurological Exam Neurological Exam: Alert, Awake - Skin Skin Exam: Warm Assessment and Plan - Assessment and Plan (Free Text) Assessment: 21yo M with Crohn's disease and now left axillary abscess s/p I&D and lymph node biopsy POD#6 - Afebrile - Axilla cx from 12/29 grew MRSA, Axilla cx from OR on 12/31 has no growth on final report - Pathology from OR: 1 reactive lymph node - packing changes daily while inhouse, packing and dressing changed this morning - patient can be discharged from surgical standpoint with alternate day packing changes with 1/2 inch iodoform packing for one week, then follow up with Dr. Taylor in the office in 2 weeks. - D/W Dr. Taylor <Temo Taylor - Last Filed: 01/11/17 22:23> Objective - Vital Signs/Intake and Output Vital Signs (last 24 hours): Temp Pulse Resp BP Pulse Ox 97.9 F 103 H 20 108/72 98 01/11/17 15:56 01/11/17 15:56 01/11/17 15:56 01/11/17 15:56 01/11/17 15:56 Intake and Output: 01/11/17 01/12/17 18:59 06:59 Intake Total 350 350 Balance 350 350 - Medications Medications: Current Medications Diphenhydramine HCl (Benadryl) 25 mg IVP Q3H PRN PRN Reason: Other Last Admin: 01/11/17 21:28 Dose: 25 mg Hydromorphone HCl (Dilaudid) 2 mg IVP Q3 PRN PRN Reason: Pain, severe (8-10) Last Admin: 01/11/17 21:29 Dose: 2 mg Vancomycin HCl 1,000 mg/ (Sodium Chloride) 250 mls @ 166.6 mls/hr IVPB Q12H [facility] Last Admin: 01/11/17 10:50 Dose: 166.6 mls/hr Cefepime HCl (Maxipime Iv 2 Gm Premix) 2 gm in 100 mls @ 200 mls/hr IVPB Q12H [facility] Last Admin: 01/11/17 21:31 Dose: 200 mls/hr Mesalamine (Delzicol) 800 mg PO TID [facility] Last Admin: 01/11/17 17:11 Dose: 800 mg Mupirocin (Bactroban 2% Nasal) 0.5 gm MEKA BID [facility] Last Admin: 01/11/17 17:11 Dose: 0.5 gm Pantoprazole Sodium (Protonix Inj) 40 mg IVP DAILY [facility] Last Admin: 01/11/17 09:31 Dose: 40 mg Paroxetine HCl (Paxil) 10 mg PO DAILY [facility] Last Admin: 01/11/17 09:34 Dose: 10 mg Prednisone (Prednisone Tab) 40 mg PO DAILY [facility] Last Admin: 01/11/17 09:33 Dose: 40 mg Trazodone HCl (Desyrel) 50 mg PO HS [facility] Last Admin: 01/11/17 21:27 Dose: 50 mg - Labs Labs: 01/11/17 07:31 01/10/17 09:19 PT 11.2 SECONDS (9.7-12.2) 12/31/16 11:43 INR 1.0 12/31/16 11:43 APTT 28 SECONDS (21-34) 12/31/16 11:43 Attending/Attestation - Attestation I have personally seen and examined this patient.: Yes I have fully participated in the care of the patient.: Yes I have reviewed all pertinent clinical information, including history, physical exam and plan: Yes Notes (Text): 01/11/17 22:23 Pt was seen and examined at bedside on 01/06/17 Agree with above note and assessment
[2017-01-06] MEDS: Pantoprazole 40 mg EC Tab PO SCH (09:57)
[2017-01-06] MEDS: Cefepime IV 2 gm in Dextrose 2 GM/100 ML BAG IVPB SCH ×2 (09:57→22:01)
[2017-01-06] MEDS: Mupirocin 2% Ointment (NASAL) NAS SCH ×2 (09:58→18:38)
--- NOTE | 2017-01-06 13:52 | CP.PCM.PN ---
Subjective - Date & Time of Evaluation Date of Evaluation: 01/06/17 Time of Evaluation: 09:00 - Subjective Subjective: clinically same Objective - Vital Signs/Intake and Output Vital Signs (last 24 hours): Temp Pulse Resp BP Pulse Ox 97.9 F 94 H 20 109/65 100 01/06/17 08:30 01/06/17 08:30 01/06/17 08:30 01/06/17 08:30 01/06/17 08:30 Intake and Output: 01/06/17 01/06/17 06:59 18:59 Output Total 1100 Balance -1100 - Medications Medications: Current Medications Diphenhydramine HCl (Benadryl) 25 mg IVP Q3H PRN PRN Reason: Other Last Admin: 01/06/17 13:18 Dose: 25 mg Hydromorphone HCl (Dilaudid) 2 mg IVP Q3 PRN PRN Reason: Pain, severe (8-10) Last Admin: 01/06/17 13:17 Dose: 2 mg Vancomycin HCl 1,000 mg/ (Sodium Chloride) 250 mls @ 166.6 mls/hr IVPB Q12H [facility] Last Admin: 01/06/17 12:01 Dose: 166.6 mls/hr Cefepime HCl (Maxipime Iv 2 Gm Premix) 2 gm in 100 mls @ 200 mls/hr IVPB Q12H [facility] Last Admin: 01/06/17 09:57 Dose: 200 mls/hr Mesalamine (Delzicol) 800 mg PO TID [facility] Last Admin: 01/06/17 13:17 Dose: 800 mg Mupirocin (Bactroban 2% Nasal) 0.5 gm MEKA BID [facility] Last Admin: 01/06/17 09:58 Dose: 0.5 gm Prednisone (Prednisone Tab) 40 mg PO DAILY [facility] Last Admin: 01/06/17 09:57 Dose: 40 mg Prednisone (Prednisone Tab) 10 mg PO DAILY [facility] Last Admin: 01/06/17 09:58 Dose: 10 mg Trazodone HCl (Desyrel) 50 mg PO HS [facility] Last Admin: 01/05/17 21:31 Dose: 50 mg - Labs Labs: 01/05/17 10:25 01/05/17 10:25 PT 11.2 SECONDS (9.7-12.2) 12/31/16 11:43 INR 1.0 12/31/16 11:43 APTT 28 SECONDS (21-34) 12/31/16 11:43 - Constitutional Appears: Well - Head Exam Head Exam: ATRAUMATIC, NORMAL INSPECTION, NORMOCEPHALIC - Eye Exam Eye Exam: EOMI, Normal appearance, PERRL Pupil Exam: NORMAL ACCOMODATION, PERRL - ENT Exam ENT Exam: Mucous Membranes Moist, Normal Exam - Neck Exam Neck Exam: Full ROM, Normal Inspection. absent: Lymphadenopathy - Respiratory Exam Respiratory Exam: Decreased Breath Sounds - Cardiovascular Exam Cardiovascular Exam: REGULAR RHYTHM, +S1, +S2 - GI/Abdominal Exam GI & Abdominal Exam: Soft, Diminished Bowel Sounds - Rectal Exam Rectal Exam: Deferred
--- NOTE | 2017-01-06 22:13 | PN ---
DATE: 01/06/2017 SUBJECTIVE: The patient is still having drainage from the left axilla. He also is complaining of a node forming in the right axilla and it is just a never ending ordeal for this patient. Now that he is on steroids I am worried that this had some relation to being on steroids, but he is feeling velma r in the perineal area and so we will keep him on antibiotics as they are doing packing in the left a xilla for now and his colostomy is functioning. PHYSICAL EXAMINATION: VITAL SIGNS: T-max is 98.1, pulse 96, blood pressure 107/72, respirations are 20. HEENT: Head is atraumatic, normocephalic. NECK: Supple. LUNGS: Clear. AXILLARY: He has a left axilla dressing present. ABDOMEN: Soft, has a colostomy bag. EXTREMITIES: Remain without edema. His medications, I took the liberty to renew them as they were and will follow. I would orde r vancomycin peak and trough as he is saying that he had MRSA and will evaluate it again. He is bein g treated for the Crohn's disease as well as perineal abscesses as well as the left axilla abscess. Will follow. Santosh Daniel MD cc: [id number] TT: 01/06/2017 22:12:52 Confirmation # [id number] Dictation # [id number] vidhi
[2017-01-07] MEDS: DiphenhydrAMINE 50 mg/ml Inj IVP PRN ×7 (04:51→22:44)
--- NOTE | 2017-01-07 08:36 | CP.PCM.PN ---
Subjective - Date & Time of Evaluation Date of Evaluation: 01/07/17 Time of Evaluation: 08:33 - Subjective Subjective: PGY1 progress note for Dr. Taylor: Patient seen and examined. Patient states he feels well, mild discomfort in left axilla. No acute events overnight. Objective - Vital Signs/Intake and Output Vital Signs (last 24 hours): Temp Pulse Resp BP Pulse Ox 98.1 F 98 H 20 101/66 100 01/07/17 08:19 01/07/17 08:19 01/07/17 08:19 01/07/17 08:19 01/07/17 08:19 - Medications Medications: Current Medications Diphenhydramine HCl (Benadryl) 25 mg IVP Q3H PRN PRN Reason: Other Last Admin: 01/07/17 04:51 Dose: 25 mg Hydromorphone HCl (Dilaudid) 2 mg IVP Q3 PRN PRN Reason: Pain, severe (8-10) Last Admin: 01/07/17 04:51 Dose: 2 mg Vancomycin HCl 1,000 mg/ (Sodium Chloride) 250 mls @ 166.6 mls/hr IVPB Q12H [facility] Last Admin: 01/06/17 22:54 Dose: 166.6 mls/hr Cefepime HCl (Maxipime Iv 2 Gm Premix) 2 gm in 100 mls @ 200 mls/hr IVPB Q12H [facility] Last Admin: 01/06/17 22:01 Dose: 200 mls/hr Mesalamine (Delzicol) 800 mg PO TID [facility] Last Admin: 01/06/17 18:38 Dose: 800 mg Mupirocin (Bactroban 2% Nasal) 0.5 gm MEKA BID [facility] Last Admin: 01/06/17 18:38 Dose: 0.5 gm Prednisone (Prednisone Tab) 40 mg PO DAILY [facility] Last Admin: 01/06/17 09:57 Dose: 40 mg Prednisone (Prednisone Tab) 10 mg PO DAILY [facility] Last Admin: 01/06/17 09:58 Dose: 10 mg Trazodone HCl (Desyrel) 50 mg PO HS [facility] Last Admin: 01/06/17 22:01 Dose: 50 mg - Labs Labs: 01/05/17 10:25 01/05/17 10:25 PT 11.2 SECONDS (9.7-12.2) 12/31/16 11:43 INR 1.0 12/31/16 11:43 APTT 28 SECONDS (21-34) 12/31/16 11:43 - Constitutional Appears: Non-toxic, No Acute Distress - Head Exam Head Exam: ATRAUMATIC, NORMOCEPHALIC - Eye Exam Eye Exam: EOMI - ENT Exam ENT Exam: Mucous Membranes Moist - Respiratory Exam Respiratory Exam: NORMAL BREATHING PATTERN - Extremities Exam Additional comments: left axilla packing changed, clean bandage applied - Neurological Exam Neurological Exam: Alert, Awake - Psychiatric Exam Psychiatric exam: Normal Affect - Skin Skin Exam: Warm Assessment and Plan - Assessment and Plan (Free Text) Assessment: 21yo M with Crohn's disease and now left axillary abscess s/p I&D and lymph node biopsy POD#7 - Afebrile - Axilla cx from 12/29 grew MRSA, Axilla cx from OR on 12/31 has no growth on final report - Pathology from OR: 1 reactive lymph node - continue antibiotics per ID- as per discussion with Dr. Daniel, patient to remain in hospital for antibiotics until tomorrow or Thursday - packing changes daily while inhouse, packing and dressing changed this morning - patient can be discharged from surgical standpoint with alternate day packing changes with 1/2 inch iodoform packing for one week, then follow up with Dr. Taylor in the office in 2 weeks. - further recs per Dr. Taylor
[2017-01-07] MEDS: Cefepime IV 2 gm in Dextrose 2 GM/100 ML BAG IVPB SCH ×2 (09:22→21:47)
[2017-01-07] MEDS: Mupirocin 2% Ointment (NASAL) NAS SCH ×2 (09:23→18:59)
--- NOTE | 2017-01-07 09:51 | CP.PCM.PN ---
<Jai Ferrer - Last Filed: 01/07/17 12:49> Subjective - Date & Time of Evaluation Date of Evaluation: 01/07/17 Time of Evaluation: 09:00 - Subjective Subjective: PGY2 on medicine Dr. Barrett services: Pt seen and examined at bedside this morning. Pt said pain controlled with pain medication. Pt again complains colostomy bag filled quickly. No other complaints at the moment. Objective - Vital Signs/Intake and Output Vital Signs (last 24 hours): Temp Pulse Resp BP Pulse Ox 98.1 F 98 H 20 101/66 100 01/07/17 08:19 01/07/17 08:19 01/07/17 08:19 01/07/17 08:19 01/07/17 08:19 - Medications Medications: Current Medications Diphenhydramine HCl (Benadryl) 25 mg IVP Q3H PRN PRN Reason: Other Last Admin: 01/07/17 08:48 Dose: 25 mg Hydromorphone HCl (Dilaudid) 2 mg IVP Q3 PRN PRN Reason: Pain, severe (8-10) Last Admin: 01/07/17 08:48 Dose: 2 mg Vancomycin HCl 1,000 mg/ (Sodium Chloride) 250 mls @ 166.6 mls/hr IVPB Q12H [facility] Last Admin: 01/06/17 22:54 Dose: 166.6 mls/hr Cefepime HCl (Maxipime Iv 2 Gm Premix) 2 gm in 100 mls @ 200 mls/hr IVPB Q12H [facility] Last Admin: 01/07/17 09:22 Dose: 200 mls/hr Mesalamine (Delzicol) 800 mg PO TID [facility] Last Admin: 01/07/17 09:23 Dose: 800 mg Mupirocin (Bactroban 2% Nasal) 0.5 gm MEKA BID [facility] Last Admin: 01/07/17 09:23 Dose: 0.5 gm Prednisone (Prednisone Tab) 40 mg PO DAILY [facility] Last Admin: 01/07/17 09:23 Dose: 40 mg Prednisone (Prednisone Tab) 10 mg PO DAILY [facility] Last Admin: 01/07/17 09:23 Dose: 10 mg Trazodone HCl (Desyrel) 50 mg PO HS [facility] Last Admin: 01/06/17 22:01 Dose: 50 mg - Labs Labs: 01/05/17 10:25 01/05/17 10:25 PT 11.2 SECONDS (9.7-12.2) 12/31/16 11:43 INR 1.0 12/31/16 11:43 APTT 28 SECONDS (21-34) 12/31/16 11:43 - Constitutional Appears: Non-toxic, No Acute Distress - Head Exam Head Exam: NORMAL INSPECTION, NORMOCEPHALIC - Eye Exam Eye Exam: Normal appearance Pupil Exam: NORMAL ACCOMODATION - ENT Exam ENT Exam: Mucous Membranes Moist - Respiratory Exam Respiratory Exam: Clear to Ausculation Bilateral, NORMAL BREATHING PATTERN. absent: Rhonchi, Wheezes - Cardiovascular Exam Cardiovascular Exam: REGULAR RHYTHM, +S1, +S2. absent: Gallop, Rubs - GI/Abdominal Exam GI & Abdominal Exam: Soft, Normal Bowel Sounds Additional comments: colostomy bag with yellow stool - Neurological Exam Neurological Exam: Alert, Awake, Oriented x3 - Psychiatric Exam Psychiatric exam: Normal Mood - Skin Skin Exam: Intact Assessment and Plan - Assessment and Plan (Free Text) Assessment: Perianal abscess Dr. Rodriguez consulted, help appreciated- As per Dr. Rodriguez, patient will need to be on antibiotics until 01/09. Dr. Taylor consulted, help appreciated. Culture showed MRSA and Citrobacter diversus. Initial blood culture showed coag negative Staph. Repeat blood culture negative. CT showed no new inflammation, surgery intervention at this time. Cefepime 2g IV q12H started on 12/24. Vancomycin 1g IV q12H started on 12/22. Continue Dilaudid 2mg IVP Q3h Continue Benadryl 25mg IVP Q3h Wound care nursing referral Axillary pain s/p day #7 incision and drainage of abscess, debridement of abscess wall cavity , lymph node pathology showed reactive lymph node. Wound care nurse referral. Wound culture MRSA positive on 12/29, repeat culture from [place] negative Vancomycin 1g IV q12H started on 12/22. Crohn's colitis Mesalamine 800mg PO TID. Prednisone 60mg PO daily per Dr. Rodriguez. Prophylactic measure SCD, Protonix. Management per Dr. Barrett As per Dr. Barrett, patient is to remain here until cleared by ID to go home. <Osvaldo Barrett S - Last Filed: 01/13/17 23:21> Objective - Vital Signs/Intake and Output Vital Signs (last 24 hours): Temp Pulse Resp BP Pulse Ox 98.1 F 106 H 20 112/77 99 01/13/17 15:51 01/13/17 15:51 01/13/17 15:51 01/13/17 15:51 01/13/17 15:51 Intake and Output: 01/13/17 01/14/17 18:59 06:59 Intake Total 650 Output Total 4 Balance 646 - Medications Medications: Current Medications Diphenhydramine HCl (Benadryl) 25 mg IVP Q3H PRN PRN Reason: Other Last Admin: 01/13/17 21:26 Dose: 25 mg Hydromorphone HCl (Dilaudid) 2 mg IVP Q3 PRN PRN Reason: Pain, severe (8-10) Last Admin: 01/13/17 21:26 Dose: 2 mg Vancomycin HCl 1,000 mg/ (Sodium Chloride) 250 mls @ 166.6 mls/hr IVPB Q12H [facility] Last Admin: 01/13/17 22:57 Dose: 166.6 mls/hr Cefepime HCl (Maxipime Iv 2 Gm Premix) 2 gm in 100 mls @ 200 mls/hr IVPB Q12H [facility] Stop: 01/17/17 22:01 Last Admin: 01/13/17 21:28 Dose: 200 mls/hr Mesalamine (Delzicol) 800 mg PO TID [facility] Last Admin: 01/13/17 18:18 Dose: 800 mg Mupirocin (Bactroban 2% Nasal) 0.5 gm MEKA BID [facility] Last Admin: 01/13/17 18:14 Dose: 0.5 gm Pantoprazole Sodium (Protonix Inj) 40 mg IVP DAILY [facility] Last Admin: 01/13/17 09:23 Dose: 40 mg Paroxetine HCl (Paxil) 10 mg PO DAILY [facility] Last Admin: 01/13/17 09:22 Dose: 10 mg Prednisone (Prednisone Tab) 20 mg PO DAILY [facility] Prednisone (Prednisone Tab) 10 mg PO DAILY [facility] Trazodone HCl (Desyrel) 50 mg PO HS [facility] Last Admin: 01/13/17 21:26 Dose: 50 mg - Labs Labs: 01/13/17 06:49 01/13/17 06:49 PT 11.2 SECONDS (9.7-12.2) 12/31/16 11:43 INR 1.0 12/31/16 11:43 APTT 28 SECONDS (21-34) 12/31/16 11:43 Assessment and Plan (1) Abdominal pain Status: Acute (2) Abscess Status: Acute (3) Constipation Status: Acute (4) Crohn disease Status: Acute (5) Diarrhea Status: Acute (6) Encounter for wound care Status: Acute (7) Fever Status: Acute (8) Foreign body Status: Acute (9) Intractable abdominal pain Status: Acute (10) Intractable pain Status: Acute (11) Prophylactic measure Status: Acute (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 rodriguez
--- NOTE | 2017-01-07 10:18 | CP.PCM.PN ---
Subjective - Date & Time of Evaluation Date of Evaluation: 01/07/17 Time of Evaluation: 11:40 - Subjective Subjective: clinically same Objective - Vital Signs/Intake and Output Vital Signs (last 24 hours): Temp Pulse Resp BP Pulse Ox 98.1 F 98 H 20 101/66 100 01/07/17 08:19 01/07/17 08:19 01/07/17 08:19 01/07/17 08:19 01/07/17 08:19 - Medications Medications: Current Medications Diphenhydramine HCl (Benadryl) 25 mg IVP Q3H PRN PRN Reason: Other Last Admin: 01/07/17 08:48 Dose: 25 mg Hydromorphone HCl (Dilaudid) 2 mg IVP Q3 PRN PRN Reason: Pain, severe (8-10) Last Admin: 01/07/17 08:48 Dose: 2 mg Vancomycin HCl 1,000 mg/ (Sodium Chloride) 250 mls @ 166.6 mls/hr IVPB Q12H [facility] Last Admin: 01/06/17 22:54 Dose: 166.6 mls/hr Cefepime HCl (Maxipime Iv 2 Gm Premix) 2 gm in 100 mls @ 200 mls/hr IVPB Q12H [facility] Last Admin: 01/07/17 09:22 Dose: 200 mls/hr Mesalamine (Delzicol) 800 mg PO TID [facility] Last Admin: 01/07/17 09:23 Dose: 800 mg Mupirocin (Bactroban 2% Nasal) 0.5 gm MEKA BID [facility] Last Admin: 01/07/17 09:23 Dose: 0.5 gm Prednisone (Prednisone Tab) 40 mg PO DAILY [facility] Last Admin: 01/07/17 09:23 Dose: 40 mg Prednisone (Prednisone Tab) 10 mg PO DAILY [facility] Last Admin: 01/07/17 09:23 Dose: 10 mg Trazodone HCl (Desyrel) 50 mg PO HS [facility] Last Admin: 01/06/17 22:01 Dose: 50 mg - Labs Labs: 01/05/17 10:25 01/05/17 10:25 PT 11.2 SECONDS (9.7-12.2) 12/31/16 11:43 INR 1.0 12/31/16 11:43 APTT 28 SECONDS (21-34) 12/31/16 11:43 - Constitutional Appears: Well - Head Exam Head Exam: ATRAUMATIC, NORMAL INSPECTION, NORMOCEPHALIC - Eye Exam Eye Exam: EOMI, Normal appearance, PERRL Pupil Exam: NORMAL ACCOMODATION, PERRL - ENT Exam ENT Exam: Mucous Membranes Moist, Normal Exam - Neck Exam Neck Exam: Full ROM, Normal Inspection. absent: Lymphadenopathy - Respiratory Exam Respiratory Exam: Decreased Breath Sounds - Cardiovascular Exam Cardiovascular Exam: +S1, +S2 - GI/Abdominal Exam GI & Abdominal Exam: Soft, Diminished Bowel Sounds - Rectal Exam Rectal Exam: Deferred
[2017-01-07 11:39] LABS: BASO # 0.1 K/uL (0.0-0.2); BASO % 0.6 % (0.0-2.0); EOS # 0.3 K/uL (0.0-0.7); EOS % 1.3 % (0.0-4.0); HEMATOCRIT 27.6 % (35.0-51.0); LYMPH % 20.7 % (20.0-40.0); MEAN CELL VOLUME 61.6 fL (80.0-94.0); MEAN CORPUSCULAR HGB CONC 29.3 g/dL (33.0-37.0); MEAN PLATELET VOLUME 7.9 fL (7.2-11.7); MONO # 1.4 K/uL (0.0-0.8); MONO % 7.1 % (0.0-10.0); WHITE BLOOD COUNT 19.5 K/uL (4.8-10.8)
[2017-01-07 11:43] LABS: CHLORIDE 96 mmol/L (98-107)
[2017-01-07 11:44] LABS: POTASSIUM 3.6 mmol/L (3.6-5.2); SODIUM 133 mmol/L (132-148)
[2017-01-07 11:46] LABS: ALB/GLOB RATIO 0.9 (1.0-2.1); ALKALINE PHOSPHATASE 95 U/L (38-126); AST/SGOT 101 U/L (17-59); BILIRUBIN,TOTAL 0.4 mg/dL (0.2-1.3); BLOOD UREA NITROGEN 16 mg/dL (9-20); CARBON DIOXIDE 30 mmol/L (22-30); GFR AFRICAN-AMERICAN > 60; TOTAL PROTEIN 6.4 g/dL (6.3-8.3)
[2017-01-07 11:47] LABS: ALT/SGPT 93 U/L (21-72); CALCIUM 8.9 mg/dl (8.6-10.4); GLUCOSE,RANDOM 103 mg/dL (75-110)
--- NOTE | 2017-01-07 22:14 | CP.PCM.PN ---
Subjective - Date & Time of Evaluation Date of Evaluation: 01/07/17 Time of Evaluation: 03:15 - Subjective Subjective: dictated Objective - Vital Signs/Intake and Output Vital Signs (last 24 hours): Temp Pulse Resp BP Pulse Ox 97.9 F 102 H 20 121/81 98 01/07/17 15:00 01/07/17 15:00 01/07/17 15:00 01/07/17 15:00 01/07/17 15:00 - Medications Medications: Current Medications Diphenhydramine HCl (Benadryl) 25 mg IVP Q3H PRN PRN Reason: Other Last Admin: 01/07/17 20:00 Dose: 25 mg Hydromorphone HCl (Dilaudid) 2 mg IVP Q3 PRN PRN Reason: Pain, severe (8-10) Last Admin: 01/07/17 19:59 Dose: 2 mg Vancomycin HCl 1,000 mg/ (Sodium Chloride) 250 mls @ 166.6 mls/hr IVPB Q12H [facility] Last Admin: 01/07/17 12:18 Dose: 166.6 mls/hr Cefepime HCl (Maxipime Iv 2 Gm Premix) 2 gm in 100 mls @ 200 mls/hr IVPB Q12H [facility] Last Admin: 01/07/17 21:47 Dose: 200 mls/hr Mesalamine (Delzicol) 800 mg PO TID [facility] Last Admin: 01/07/17 18:59 Dose: 800 mg Mupirocin (Bactroban 2% Nasal) 0.5 gm MEKA BID [facility] Last Admin: 01/07/17 18:59 Dose: 0.5 gm Pantoprazole Sodium (Protonix Inj) 40 mg IVP DAILY [facility] Paroxetine HCl (Paxil) 10 mg PO DAILY [facility] Last Admin: 01/07/17 12:19 Dose: 10 mg Prednisone (Prednisone Tab) 40 mg PO DAILY [facility] Last Admin: 01/07/17 09:23 Dose: 40 mg Prednisone (Prednisone Tab) 10 mg PO DAILY [facility] Last Admin: 01/07/17 09:23 Dose: 10 mg Trazodone HCl (Desyrel) 50 mg PO HS [facility] Last Admin: 01/06/17 22:01 Dose: 50 mg - Labs Labs: 01/07/17 11:24 01/07/17 11:24 PT 11.2 SECONDS (9.7-12.2) 12/31/16 11:43 INR 1.0 12/31/16 11:43 APTT 28 SECONDS (21-34) 12/31/16 11:43
--- NOTE | 2017-01-07 22:33 | PN ---
DATE: 01/07/2017 SUBJECTIVE: The patient is afebrile. He does complain of pain in the right axilla; when I looked ov er, there are no problems there. However, he does have a PICC line in the right arm. I plan to disc ontinue the PICC line on Thursday morning and then he could be discharged home. He is clinically impro ving. His eating is a little better now and left axilla is healing. VITAL SIGNS: T-max is 97.9, pulse 102, blood pressure 121/81, respirations are 20. When he goes home, we will taper the steroids further to 40 and he needs to gradually be stable off a nd to follow with a hris analyst. He is promising that and I told him he needs a good team of gastroenterologists, as well as the surgeons who works in the same field and are able to help him. LABORATORY DATA: His white count today, however, is 19.5, hemoglobin 8.1, hematocrit 27.6, pulse is 398, but the differential on the machine count shows neutrophils of 70.3, so I think it is mostly due to the steroids and creatinine is 0.7. His glucose is 103. IMPRESSION AND PLAN: He came in with acute exacerbation of Crohn's and is also having abscesse s and had a left axillary abscess, which was drained and has MRSA and also was treated for Citrobacte r. We will follow. Santosh Daniel MD cc: [id number] TT: 01/07/2017 22:32:19 Confirmation # [id number] Dictation # [id number]
[2017-01-08] MEDS: Cefepime IV 2 gm in Dextrose 2 GM/100 ML BAG IVPB SCH (21:00)
--- NOTE | 2017-01-08 21:45 | PN ---
DATE: 01/08/2017 SUBJECTIVE: The patient says that he wants to have CAT scan to review what is going on as actual tab let comes out in the colostomy bag and undigested food. His abscesses are better, but they are still draining. He has this excoriated skin along the groin and between the buttocks and it has not been healing. PHYSICAL EXAMINATION: VITAL SIGNS: T-max is 97.6, heart rate is 102, blood pressure is 121/81, respirations are 20. GENERAL: He is eating better, he says. HEENT: Head is atraumatic, normocephalic. NECK: Supple. LUNGS: Clear. His axilla is still painful. White count is 19.5. ABDOMEN: Soft. Colostomy functioning. I saw the back as well as the front. It still has some drai nage in the anterior part of the groin and in the posterior there is excoriated skin, which is not he aling. I did see it several days ago. EXTREMITIES: No edema. LABORATORY DATA: White count is 19.5. We will get a CAT scan before we send him home. I went to see when we did the last one, it was on 12/26 actually. On 12/26 he had a CAT scan and the CAT scan showed ____ hepatic steatosis, no focal masses , no biliary dilatation, evidence of prior right colon resection. So we just did on 12/26, I do not th ink I need to do it again. Other finding was space fistulous tract, left perirectal anal region, thi s appears to be diminished in ____ compared to the prior study. 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 So at this time, we will just repeat the labs again. We will try to decrease the steroids. I do not know if giving is better or not giving is better. I do not want have to be involved in that as azael harrington is following. We will send him on Bactrim p.o. Will follow. Santosh Daniel MD cc: [id number] TT: 01/08/2017 21:44:41 Confirmation # [id number] Dictation # [id number]
[2017-01-08 21:54] LABS: ALB/GLOB RATIO 1.1 (1.0-2.1); ALKALINE PHOSPHATASE 87 U/L (38-126); ALT/SGPT 108 U/L (21-72); AST/SGOT 55 U/L (17-59); BILIRUBIN,TOTAL 0.5 mg/dL (0.2-1.3); BLOOD UREA NITROGEN 16 mg/dL (9-20); CALCIUM 8.8 mg/dl (8.6-10.4); CARBON DIOXIDE 33 mmol/L (22-30); CHLORIDE 94 mmol/L (98-107); GFR AFRICAN-AMERICAN > 60; GLUCOSE,RANDOM 78 mg/dL (75-110); POTASSIUM 3.4 mmol/L (3.6-5.2); SODIUM 134 mmol/L (132-148); TOTAL PROTEIN 6.1 g/dL (6.3-8.3)
[2017-01-08] MEDS: DiphenhydrAMINE 50 mg/ml Inj IVP PRN (22:13)
[2017-01-08 22:16] LABS: BASO # 0.1 K/uL (0.0-0.2); BASO % 0.5 % (0.0-2.0); EOS # 0.3 K/uL (0.0-0.7); EOS % 1.3 % (0.0-4.0); LYMPH # 5.8 K/uL (1.0-4.3); MEAN PLATELET VOLUME 8.1 fL (7.2-11.7); MONO % 9.2 % (0.0-10.0); NRBC % 0.1 % (0.0-2.0); WHITE BLOOD COUNT 21.3 K/uL (4.8-10.8)
--- NOTE | 2017-01-08 22:31 | CP.PCM.PN ---
Objective - Vital Signs/Intake and Output Vital Signs (last 24 hours): Temp Pulse Resp BP Pulse Ox 97.9 F 102 H 20 121/81 98 01/07/17 15:00 01/07/17 15:00 01/07/17 15:00 01/07/17 15:00 01/07/17 15:00 - Medications Medications: Current Medications Diphenhydramine HCl (Benadryl) 25 mg IVP Q3H PRN PRN Reason: Other Last Admin: 01/08/17 22:13 Dose: 25 mg Hydromorphone HCl (Dilaudid) 2 mg IVP Q3 PRN PRN Reason: Pain, severe (8-10) Last Admin: 01/08/17 22:13 Dose: 2 mg Vancomycin HCl 1,000 mg/ (Sodium Chloride) 250 mls @ 166.6 mls/hr IVPB Q12H [facility] Last Admin: 01/08/17 22:12 Dose: 166.6 mls/hr Cefepime HCl (Maxipime Iv 2 Gm Premix) 2 gm in 100 mls @ 200 mls/hr IVPB Q12H [facility] Last Admin: 01/08/17 21:00 Dose: 200 mls/hr Mesalamine (Delzicol) 800 mg PO TID [facility] Last Admin: 01/07/17 18:59 Dose: 800 mg Mupirocin (Bactroban 2% Nasal) 0.5 gm MEKA BID [facility] Last Admin: 01/07/17 18:59 Dose: 0.5 gm Pantoprazole Sodium (Protonix Inj) 40 mg IVP DAILY [facility] Paroxetine HCl (Paxil) 10 mg PO DAILY [facility] Last Admin: 01/07/17 12:19 Dose: 10 mg Prednisone (Prednisone Tab) 40 mg PO DAILY [facility] Last Admin: 01/07/17 09:23 Dose: 40 mg Prednisone (Prednisone Tab) 10 mg PO DAILY [facility] Last Admin: 01/07/17 09:23 Dose: 10 mg Trazodone HCl (Desyrel) 50 mg PO HS [facility] Last Admin: 01/08/17 22:12 Dose: 50 mg - Labs Labs: 01/08/17 04:00 01/08/17 04:00 PT 11.2 SECONDS (9.7-12.2) 12/31/16 11:43 INR 1.0 12/31/16 11:43 APTT 28 SECONDS (21-34) 12/31/16 11:43
[2017-01-09] MEDS: DiphenhydrAMINE 50 mg/ml Inj IVP PRN ×8 (01:16→23:29)
[2017-01-09] MEDS ORDERED: Potassium Chloride 10 mEq ER Tab PO STA (02:46)
[2017-01-09] MEDS ORDERED: Potassium Chloride 20 mEq/15 ml LIQ UD ONE (03:39)
[2017-01-09] MEDS ORDERED: Potassium Chloride 20 mEq ER Tab PO ONE (03:45)
--- NOTE | 2017-01-09 09:39 | CP.PCM.PN ---
Addendum entered and electronically signed by Brianda Bazzi DO 01/09/17 15:56 : Patient's discharge was canceled per ID Dr Daniel due to elevated WBC. Plan to taper steroids starting tomorrow AM. Repeat blood culture, urine culture, and wound culture. Continue IV antibiotics and follow up [facility] tomorrow. Original Note: <Brianda Bazzi - Last Filed: 01/09/17 10:31> Subjective - Date & Time of Evaluation Date of Evaluation: 01/09/17 Time of Evaluation: 10:31 - Subjective Subjective: Medicine Progress Note Patient seen and examined. Patient comfortable and has no acute complaints. Patient is to be discharged home today. Objective - Vital Signs/Intake and Output Vital Signs (last 24 hours): Temp Pulse Resp BP Pulse Ox 97.8 F 107 H 18 113/71 98 01/09/17 00:00 01/09/17 00:00 01/09/17 00:00 01/09/17 00:00 01/09/17 00:00 Intake and Output: 01/09/17 01/09/17 06:59 18:59 Intake Total 950 Balance 950 - Medications Medications: Current Medications Diphenhydramine HCl (Benadryl) 25 mg IVP Q3H PRN PRN Reason: Other Last Admin: 01/09/17 08:12 Dose: 25 mg Hydromorphone HCl (Dilaudid) 2 mg IVP Q3 PRN PRN Reason: Pain, severe (8-10) Last Admin: 01/09/17 08:12 Dose: 2 mg Vancomycin HCl 1,000 mg/ (Sodium Chloride) 250 mls @ 166.6 mls/hr IVPB Q12H [facility] Last Admin: 01/08/17 22:12 Dose: 166.6 mls/hr Cefepime HCl (Maxipime Iv 2 Gm Premix) 2 gm in 100 mls @ 200 mls/hr IVPB Q12H [facility] Last Admin: 01/08/17 21:00 Dose: 200 mls/hr Mesalamine (Delzicol) 800 mg PO TID [facility] Last Admin: 01/07/17 18:59 Dose: 800 mg Mupirocin (Bactroban 2% Nasal) 0.5 gm MEKA BID [facility] Last Admin: 01/07/17 18:59 Dose: 0.5 gm Pantoprazole Sodium (Protonix Inj) 40 mg IVP DAILY [facility] Paroxetine HCl (Paxil) 10 mg PO DAILY [facility] Last Admin: 01/07/17 12:19 Dose: 10 mg Prednisone (Prednisone Tab) 40 mg PO DAILY [facility] Last Admin: 01/07/17 09:23 Dose: 40 mg Prednisone (Prednisone Tab) 10 mg PO DAILY [facility] Last Admin: 01/07/17 09:23 Dose: 10 mg Trazodone HCl (Desyrel) 50 mg PO HS [facility] Last Admin: 01/08/17 22:12 Dose: 50 mg - Labs Labs: 01/08/17 04:00 01/08/17 04:00 PT 11.2 SECONDS (9.7-12.2) 12/31/16 11:43 INR 1.0 12/31/16 11:43 APTT 28 SECONDS (21-34) 12/31/16 11:43 - Additional Findings Additional findings: - Constitutional Appears: Non-toxic, No Acute Distress - Head Exam Head Exam: NORMAL INSPECTION, NORMOCEPHALIC - Eye Exam Eye Exam: Normal appearance Pupil Exam: NORMAL ACCOMODATION - ENT Exam ENT Exam: Mucous Membranes Moist - Respiratory Exam Respiratory Exam: Clear to Ausculation Bilateral, NORMAL BREATHING PATTERN. absent: Rhonchi, Wheezes - Cardiovascular Exam Cardiovascular Exam: REGULAR RHYTHM, +S1, +S2. absent: Gallop, Rubs - GI/Abdominal Exam GI & Abdominal Exam: Soft, Normal Bowel Sounds Additional comments: colostomy bag - Neurological Exam Neurological Exam: Alert, Awake, Oriented x3 - Psychiatric Exam Psychiatric exam: Normal Mood - Skin Skin Exam: Intact Assessment and Plan - Assessment and Plan (Free Text) Assessment: Perianal abscess Dr. Daniel consulted, help appreciated- As per Dr. Daniel, patient will need to be on antibiotics until 01/09. Per Dr Daniel may dc on bactrim today. Dr. Romero consulted, help appreciated. Culture showed MRSA and Citrobacter diversus. Initial blood culture showed coag negative Staph. Repeat blood culture negative. CT showed no new inflammation, surgery intervention at this time. Cefepime 2g IV q12H started on 12/24. Vancomycin 1g IV q12H started on 12/22. Continue Dilaudid 2mg IVP Q3h Continue Benadryl 25mg IVP Q3h Wound care nursing referral Axillary pain s/p incision and drainage of abscess, debridement of abscess wall cavity on 01/01, lymph node pathology showed reactive lymph node. Wound care nurse referral. Wound culture MRSA positive on 12/29, repeat culture from [place] negative Vancomycin 1g IV q12H started on 12/22. Crohn's colitis Mesalamine 800mg PO TID. Prednisone 60mg PO daily per Dr. aDniel. Prophylactic measure SCD, Protonix. Management per Dr. Barrett <Osvaldo Barrett S - Last Filed: 01/13/17 23:17> Objective - Vital Signs/Intake and Output Vital Signs (last 24 hours): Temp Pulse Resp BP Pulse Ox 98.1 F 106 H 20 112/77 99 01/13/17 15:51 01/13/17 15:51 01/13/17 15:51 01/13/17 15:51 01/13/17 15:51 Intake and Output: 01/13/17 01/14/17 18:59 06:59 Intake Total 650 Output Total 4 Balance 646 - Medications Medications: Current Medications Diphenhydramine HCl (Benadryl) 25 mg IVP Q3H PRN PRN Reason: Other Last Admin: 01/13/17 21:26 Dose: 25 mg Hydromorphone HCl (Dilaudid) 2 mg IVP Q3 PRN PRN Reason: Pain, severe (8-10) Last Admin: 01/13/17 21:26 Dose: 2 mg Vancomycin HCl 1,000 mg/ (Sodium Chloride) 250 mls @ 166.6 mls/hr IVPB Q12H [facility] Last Admin: 01/13/17 22:57 Dose: 166.6 mls/hr Cefepime HCl (Maxipime Iv 2 Gm Premix) 2 gm in 100 mls @ 200 mls/hr IVPB Q12H [facility] Stop: 01/17/17 22:01 Last Admin: 01/13/17 21:28 Dose: 200 mls/hr Mesalamine (Delzicol) 800 mg PO TID [facility] Last Admin: 01/13/17 18:18 Dose: 800 mg Mupirocin (Bactroban 2% Nasal) 0.5 gm MEKA BID [facility] Last Admin: 01/13/17 18:14 Dose: 0.5 gm Pantoprazole Sodium (Protonix Inj) 40 mg IVP DAILY [facility] Last Admin: 01/13/17 09:23 Dose: 40 mg Paroxetine HCl (Paxil) 10 mg PO DAILY [facility] Last Admin: 01/13/17 09:22 Dose: 10 mg Prednisone (Prednisone Tab) 20 mg PO DAILY [facility] Prednisone (Prednisone Tab) 10 mg PO DAILY [facility] Trazodone HCl (Desyrel) 50 mg PO HS [facility] Last Admin: 01/13/17 21:26 Dose: 50 mg - Labs Labs: 01/13/17 06:49 01/13/17 06:49 PT 11.2 SECONDS (9.7-12.2) 12/31/16 11:43 INR 1.0 12/31/16 11:43 APTT 28 SECONDS (21-34) 12/31/16 11:43 Assessment and Plan (1) Abscess Status: Acute (2) Crohn disease Status: Acute (3) Diarrhea Status: Acute (4) Intractable pain Status: Acute (5) Wound of right buttock Status: Acute (6) Abdominal pain Status: Acute (7) Constipation Status: Acute (8) Encounter for wound care Status: Acute (9) Fever Status: Acute (10) Foreign body Status: Acute (11) Intractable abdominal pain Status: Acute (12) Prophylactic measure Status: Acute (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 lazaro romero pt been told ot go to [facility] fo rfurther work up as gi prefer him to go to his previosu
[2017-01-09] MEDS: Cefepime IV 2 gm in Dextrose 2 GM/100 ML BAG IVPB SCH ×2 (11:18→21:56)
[2017-01-09] MEDS: Mupirocin 2% Ointment (NASAL) NAS SCH ×2 (11:20→17:16)
--- NOTE | 2017-01-09 17:41 | CP.PCM.PN ---
Subjective - Date & Time of Evaluation Date of Evaluation: 01/09/17 Time of Evaluation: 10:40 - Subjective Subjective: clinically same Objective - Vital Signs/Intake and Output Vital Signs (last 24 hours): Temp Pulse Resp BP Pulse Ox 97.9 F 107 H 20 106/71 97 01/09/17 17:26 01/09/17 17:26 01/09/17 17:26 01/09/17 17:26 01/09/17 17:26 Intake and Output: 01/09/17 01/09/17 06:59 18:59 Intake Total 950 750 Balance 950 750 - Medications Medications: Current Medications Diphenhydramine HCl (Benadryl) 25 mg IVP Q3H PRN PRN Reason: Other Last Admin: 01/09/17 17:15 Dose: 25 mg Hydromorphone HCl (Dilaudid) 2 mg IVP Q3 PRN PRN Reason: Pain, severe (8-10) Last Admin: 01/09/17 17:15 Dose: 2 mg Vancomycin HCl 1,000 mg/ (Sodium Chloride) 250 mls @ 166.6 mls/hr IVPB Q12H [facility] Last Admin: 01/09/17 12:35 Dose: 166.6 mls/hr Cefepime HCl (Maxipime Iv 2 Gm Premix) 2 gm in 100 mls @ 200 mls/hr IVPB Q12H [facility] Last Admin: 01/09/17 11:18 Dose: 200 mls/hr Mesalamine (Delzicol) 800 mg PO TID [facility] Last Admin: 01/09/17 17:15 Dose: 800 mg Mupirocin (Bactroban 2% Nasal) 0.5 gm MEKA BID [facility] Last Admin: 01/09/17 17:16 Dose: 0.5 gm Pantoprazole Sodium (Protonix Inj) 40 mg IVP DAILY [facility] Last Admin: 01/09/17 11:18 Dose: 40 mg Paroxetine HCl (Paxil) 10 mg PO DAILY [facility] Last Admin: 01/09/17 11:20 Dose: 10 mg Prednisone (Prednisone Tab) 40 mg PO DAILY [facility] Last Admin: 01/09/17 11:19 Dose: 40 mg Trazodone HCl (Desyrel) 50 mg PO HS [facility] Last Admin: 01/08/17 22:12 Dose: 50 mg - Labs Labs: 01/08/17 04:00 05/18/17 04:00 PT 11.2 SECONDS (9.7-12.2) 12/31/16 11:43 INR 1.0 12/31/16 11:43 APTT 28 SECONDS (21-34) 12/31/16 11:43 - Constitutional Appears: Well - Head Exam Head Exam: ATRAUMATIC, NORMAL INSPECTION, NORMOCEPHALIC - Eye Exam Eye Exam: EOMI, Normal appearance, PERRL Pupil Exam: NORMAL ACCOMODATION, PERRL - ENT Exam ENT Exam: Mucous Membranes Moist, Normal Exam - Neck Exam Neck Exam: Full ROM, Normal Inspection. absent: Lymphadenopathy - Respiratory Exam Respiratory Exam: Decreased Breath Sounds - Cardiovascular Exam Cardiovascular Exam: REGULAR RHYTHM, +S1, +S2 - GI/Abdominal Exam GI & Abdominal Exam: Soft, Diminished Bowel Sounds - Rectal Exam Rectal Exam: Deferred
[2017-01-10] MEDS: DiphenhydrAMINE 50 mg/ml Inj IVP PRN ×8 (02:33→23:58)
[2017-01-10 07:59] LABS: RBC URINE < 1 /hpf (0-3); URINE BILIRUBIN NEGATIVE (NEGATIVE); URINE BLOOD NEGATIVE (NEGATIVE); URINE COLOR Straw (YELLOW); URINE GLUCOSE (UA) NORMAL (Normal); URINE KETONE NEGATIVE (NEGATIVE); URINE LEUKOCYTE ESTERASE NEG Leu/uL (Negative); URINE PROTEIN NEGATIVE (NEGATIVE); URINE UROBILINOGEN NORMAL mg/dL (0.2-1.0); WBC URINE < 1 /hpf (0-5)
[2017-01-10 09:40] LABS: ALB/GLOB RATIO 1.1 (1.0-2.1); ALKALINE PHOSPHATASE 97 U/L (38-126); ALT/SGPT 87 U/L (21-72); AST/SGOT 46 U/L (17-59); BILIRUBIN,TOTAL 0.6 mg/dL (0.2-1.3); BLOOD UREA NITROGEN 12 mg/dL (9-20); CARBON DIOXIDE 27 mmol/L (22-30); CHLORIDE 97 mmol/L (98-107); GFR AFRICAN-AMERICAN > 60; GLUCOSE,RANDOM 79 mg/dL (75-110); POTASSIUM 3.5 mmol/L (3.6-5.2); SODIUM 136 mmol/L (132-148); TOTAL PROTEIN 6.5 g/dL (6.3-8.3)
[2017-01-10 09:41] LABS: CALCIUM 8.5 mg/dl (8.6-10.4)
[2017-01-10] MEDS: Mupirocin 2% Ointment (NASAL) NAS SCH ×2 (09:51→17:56)
[2017-01-10] MEDS: Cefepime IV 2 gm in Dextrose 2 GM/100 ML BAG IVPB SCH ×2 (09:55→21:39)
[2017-01-10 11:32] LABS: HEMATOCRIT 26.3 % (35.0-51.0); MEAN CELL VOLUME 62.2 fL (80.0-94.0); MEAN CORPUSCULAR HEMOGLOBIN 18.1 pg (27.0-31.0); MEAN CORPUSCULAR HGB CONC 29.1 g/dL (33.0-37.0); MEAN PLATELET VOLUME 7.7 fL (7.2-11.7); RED CELL DISTRIBUTION WIDTH 17.5 % (11.5-14.5); WHITE BLOOD COUNT 17.8 K/uL (4.8-10.8)
--- NOTE | 2017-01-10 12:48 | CP.PCM.PN ---
Subjective - Date & Time of Evaluation Date of Evaluation: 01/10/17 Time of Evaluation: 08:00 - Subjective Subjective: clinically same Objective - Vital Signs/Intake and Output Vital Signs (last 24 hours): Temp Pulse Resp BP Pulse Ox 98.1 F 87 18 115/77 100 01/10/17 08:00 01/10/17 08:00 01/10/17 08:00 01/10/17 08:00 01/10/17 08:00 - Medications Medications: Current Medications Diphenhydramine HCl (Benadryl) 25 mg IVP Q3H PRN PRN Reason: Other Last Admin: 01/10/17 11:40 Dose: 25 mg Hydromorphone HCl (Dilaudid) 2 mg IVP Q3 PRN PRN Reason: Pain, severe (8-10) Last Admin: 01/10/17 11:41 Dose: 2 mg Vancomycin HCl 1,000 mg/ (Sodium Chloride) 250 mls @ 166.6 mls/hr IVPB Q12H [facility] Last Admin: 01/10/17 11:18 Dose: 166.6 mls/hr Cefepime HCl (Maxipime Iv 2 Gm Premix) 2 gm in 100 mls @ 200 mls/hr IVPB Q12H [facility] Last Admin: 01/10/17 09:55 Dose: 200 mls/hr Mesalamine (Delzicol) 800 mg PO TID [facility] Last Admin: 01/10/17 09:52 Dose: 800 mg Mupirocin (Bactroban 2% Nasal) 0.5 gm MEKA BID [facility] Last Admin: 01/10/17 09:51 Dose: 0.5 gm Pantoprazole Sodium (Protonix Inj) 40 mg IVP DAILY [facility] Last Admin: 01/10/17 09:52 Dose: 40 mg Paroxetine HCl (Paxil) 10 mg PO DAILY [facility] Last Admin: 01/10/17 09:51 Dose: 10 mg Prednisone (Prednisone Tab) 40 mg PO DAILY [facility] Last Admin: 01/10/17 09:51 Dose: 40 mg Trazodone HCl (Desyrel) 50 mg PO HS [facility] Last Admin: 01/09/17 21:56 Dose: 50 mg - Labs Labs: 01/10/17 11:17 01/10/17 09:19 PT 11.2 SECONDS (9.7-12.2) 12/31/16 11:43 INR 1.0 12/31/16 11:43 APTT 28 SECONDS (21-34) 12/31/16 11:43 - Constitutional Appears: Well - Head Exam Head Exam: ATRAUMATIC, NORMAL INSPECTION, NORMOCEPHALIC - Eye Exam Eye Exam: EOMI, Normal appearance, PERRL Pupil Exam: NORMAL ACCOMODATION, PERRL - ENT Exam ENT Exam: Mucous Membranes Moist, Normal Exam - Neck Exam Neck Exam: Full ROM, Normal Inspection. absent: Lymphadenopathy - Respiratory Exam Respiratory Exam: Decreased Breath Sounds - Cardiovascular Exam Cardiovascular Exam: REGULAR RHYTHM, +S1, +S2 - GI/Abdominal Exam GI & Abdominal Exam: Soft, Diminished Bowel Sounds - Rectal Exam Rectal Exam: Deferred
[2017-01-10] MEDS ORDERED: Potassium Chloride 20 mEq ER Tab PO ONE (13:30)
[2017-01-11] MEDS: DiphenhydrAMINE 50 mg/ml Inj IVP PRN ×7 (03:02→21:28)
[2017-01-11 07:40] LABS: BASO # 0.1 K/uL (0.0-0.2); BASO % 0.6 % (0.0-2.0); EOS # 0.6 K/uL (0.0-0.7); HEMATOCRIT 26.7 % (35.0-51.0); LYMPH # 6.1 K/uL (1.0-4.3); LYMPH % 31.9 % (20.0-40.0); MEAN CELL VOLUME 61.8 fL (80.0-94.0); MEAN CORPUSCULAR HGB CONC 29.2 g/dL (33.0-37.0); MEAN PLATELET VOLUME 7.7 fL (7.2-11.7); MONO # 1.5 K/uL (0.0-0.8); MONO % 7.6 % (0.0-10.0); RED CELL DISTRIBUTION WIDTH 17.6 % (11.5-14.5); WHITE BLOOD COUNT 19.1 K/uL (4.8-10.8)
[2017-01-11] MEDS: Mupirocin 2% Ointment (NASAL) NAS SCH ×2 (09:31→17:11)
[2017-01-11] MEDS: Cefepime IV 2 gm in Dextrose 2 GM/100 ML BAG IVPB SCH ×2 (09:38→21:31)
--- NOTE | 2017-01-11 14:52 | CP.PCM.PN ---
Subjective - Date & Time of Evaluation Date of Evaluation: 01/11/17 Time of Evaluation: 09:00 - Subjective Subjective: clinically same Objective - Vital Signs/Intake and Output Vital Signs (last 24 hours): Temp Pulse Resp BP Pulse Ox 98.1 F 104 H 20 114/75 99 01/10/17 23:10 01/10/17 23:10 01/10/17 23:10 01/10/17 23:10 01/10/17 23:10 Intake and Output: 01/11/17 01/11/17 06:59 18:59 Intake Total 350 Balance 350 - Medications Medications: Current Medications Diphenhydramine HCl (Benadryl) 25 mg IVP Q3H PRN PRN Reason: Other Last Admin: 01/11/17 12:36 Dose: 25 mg Hydromorphone HCl (Dilaudid) 2 mg IVP Q3 PRN PRN Reason: Pain, severe (8-10) Last Admin: 01/11/17 12:37 Dose: 2 mg Vancomycin HCl 1,000 mg/ (Sodium Chloride) 250 mls @ 166.6 mls/hr IVPB Q12H [facility] Last Admin: 01/11/17 10:50 Dose: 166.6 mls/hr Cefepime HCl (Maxipime Iv 2 Gm Premix) 2 gm in 100 mls @ 200 mls/hr IVPB Q12H [facility] Last Admin: 01/11/17 09:38 Dose: 200 mls/hr Mesalamine (Delzicol) 800 mg PO TID [facility] Last Admin: 01/11/17 13:13 Dose: 800 mg Mupirocin (Bactroban 2% Nasal) 0.5 gm MEKA BID [facility] Last Admin: 01/11/17 09:31 Dose: 0.5 gm Pantoprazole Sodium (Protonix Inj) 40 mg IVP DAILY [facility] Last Admin: 01/11/17 09:31 Dose: 40 mg Paroxetine HCl (Paxil) 10 mg PO DAILY [facility] Last Admin: 01/11/17 09:34 Dose: 10 mg Prednisone (Prednisone Tab) 40 mg PO DAILY [facility] Last Admin: 01/11/17 09:33 Dose: 40 mg Trazodone HCl (Desyrel) 50 mg PO HS [facility] Last Admin: 01/10/17 21:04 Dose: 50 mg - Labs Labs: 01/11/17 07:31 01/10/17 09:19 PT 11.2 SECONDS (9.7-12.2) 12/31/16 11:43 INR 1.0 12/31/16 11:43 APTT 28 SECONDS (21-34) 12/31/16 11:43 - Constitutional Appears: Well - Head Exam Head Exam: ATRAUMATIC, NORMAL INSPECTION, NORMOCEPHALIC - Eye Exam Eye Exam: EOMI, Normal appearance, PERRL Pupil Exam: NORMAL ACCOMODATION, PERRL - ENT Exam ENT Exam: Mucous Membranes Moist, Normal Exam - Neck Exam Neck Exam: Full ROM, Normal Inspection. absent: Lymphadenopathy - Respiratory Exam Respiratory Exam: Decreased Breath Sounds - Cardiovascular Exam Cardiovascular Exam: REGULAR RHYTHM, +S1, +S2 - GI/Abdominal Exam GI & Abdominal Exam: Soft, Diminished Bowel Sounds - Rectal Exam Rectal Exam: Deferred Assessment and Plan (1) Abdominal pain Status: Acute (2) Abscess Status: Acute (3) Constipation Status: Acute (4) Crohn disease Status: Acute (5) Diarrhea Status: Acute (6) Encounter for wound care Status: Acute (7) Fever Status: Acute (8) Foreign body Status: Acute (9) Intractable abdominal pain Status: Acute (10) Intractable pain Status: Acute (11) Prophylactic measure Status: Acute (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 - Assessment and Plan (Free Text) Plan: case seen and discussed with staff and resident iv antibioitc dr. lazaro romero pt been told ot go to [facility] fo rfurther work up as gi prefer him to go to his previosu md bethany lozada
[2017-01-12] MEDS: DiphenhydrAMINE 50 mg/ml Inj IVP PRN ×8 (00:23→22:33)
--- NOTE | 2017-01-12 09:19 | CP.PCM.PN ---
<Jai Ferrer - Last Filed: 01/12/17 13:28> Subjective - Date & Time of Evaluation Date of Evaluation: 01/12/17 Time of Evaluation: 09:00 - Subjective Subjective: PGY2 on medicine Dr. Barrett service: Pt seen and examined at bedside this morning. Pt said he has more blood come out when he pass gas, as well as bleeding from rectum. Pt always have this problem secondary to Crohn's. Pt still complains colostomy bag filling up fast. Objective - Vital Signs/Intake and Output Vital Signs (last 24 hours): Temp Pulse Resp BP Pulse Ox 98.1 F 101 H 20 121/81 98 01/12/17 00:00 01/12/17 00:00 01/12/17 00:00 01/12/17 00:00 01/12/17 00:00 Intake and Output: 01/12/17 01/12/17 06:59 18:59 Intake Total 350 Balance 350 - Medications Medications: Current Medications Diphenhydramine HCl (Benadryl) 25 mg IVP Q3H PRN PRN Reason: Other Last Admin: 01/12/17 06:15 Dose: 25 mg Hydromorphone HCl (Dilaudid) 2 mg IVP Q3 PRN PRN Reason: Pain, severe (8-10) Last Admin: 01/12/17 06:14 Dose: 2 mg Vancomycin HCl 1,000 mg/ (Sodium Chloride) 250 mls @ 166.6 mls/hr IVPB Q12H [facility] Last Admin: 01/11/17 22:34 Dose: 166.6 mls/hr Cefepime HCl (Maxipime Iv 2 Gm Premix) 2 gm in 100 mls @ 200 mls/hr IVPB Q12H [facility] Last Admin: 01/11/17 21:31 Dose: 200 mls/hr Mesalamine (Delzicol) 800 mg PO TID [facility] Last Admin: 01/11/17 17:11 Dose: 800 mg Mupirocin (Bactroban 2% Nasal) 0.5 gm MEKA BID [facility] Last Admin: 01/11/17 17:11 Dose: 0.5 gm Pantoprazole Sodium (Protonix Inj) 40 mg IVP DAILY [facility] Last Admin: 01/11/17 09:31 Dose: 40 mg Paroxetine HCl (Paxil) 10 mg PO DAILY [facility] Last Admin: 01/11/17 09:34 Dose: 10 mg Prednisone (Prednisone Tab) 40 mg PO DAILY [facility] Last Admin: 01/11/17 09:33 Dose: 40 mg Trazodone HCl (Desyrel) 50 mg PO HS [facility] Last Admin: 01/11/17 21:27 Dose: 50 mg - Labs Labs: 01/11/17 07:31 01/10/17 09:19 PT 11.2 SECONDS (9.7-12.2) 12/31/16 11:43 INR 1.0 12/31/16 11:43 APTT 28 SECONDS (21-34) 12/31/16 11:43 - Constitutional Appears: Non-toxic, No Acute Distress - Head Exam Head Exam: NORMOCEPHALIC - Eye Exam Eye Exam: Normal appearance Pupil Exam: NORMAL ACCOMODATION - ENT Exam ENT Exam: Mucous Membranes Moist - Respiratory Exam Respiratory Exam: Clear to Ausculation Bilateral, NORMAL BREATHING PATTERN - Cardiovascular Exam Cardiovascular Exam: REGULAR RHYTHM, +S1, +S2. absent: Gallop, Rubs - GI/Abdominal Exam GI & Abdominal Exam: Soft, Normal Bowel Sounds Additional comments: left colostomy bag - Rectal Exam Rectal Exam: Bloody Stool - Neurological Exam Neurological Exam: Alert, Awake, Oriented x3 - Psychiatric Exam Psychiatric exam: Normal Mood - Skin Skin Exam: Intact Assessment and Plan - Assessment and Plan (Free Text) Assessment: Perianal abscess Dr. Daniel consulted, help appreciated- As per Dr. Daniel, patient will need to be on antibiotics until 01/09. Per Dr Daniel may dc on bactrim today. Dr. Romero consulted, help appreciated. Culture showed MRSA and Citrobacter diversus. Initial blood culture showed coag negative Staph. Repeat blood culture negative. CT showed no new inflammation, surgery intervention at this time. Cefepime 2g IV q12H started on 12/24. Vancomycin 1g IV q12H started on 12/22. Continue Dilaudid 2mg IVP Q3h Continue Benadryl 25mg IVP Q3h Wound care nursing referral Axillary pain s/p incision and drainage of abscess, debridement of abscess wall cavity on 01/01, lymph node pathology showed reactive lymph node. Wound care nurse referral. Wound culture MRSA positive on 12/29, repeat culture from [place] negative Vancomycin 1g IV q12H started on 12/22. Cefepime 2g IV q12H started on 12/24. Crohn's colitis Mesalamine 800mg PO TID. Prednisone 40mg PO daily per Dr. Daniel. Pt currently takes Humira once every 2 weeks. Outpatient evaluation needed as per Dr. Lopez and Dr. Shukla from previous visits. Pt agreed for outpatient follow up after discharge. Prophylactic measure SCD, Protonix. Management per Dr. Barrett <Osvaldo Barrett - Last Filed: 01/13/17 23:16> Objective - Vital Signs/Intake and Output Vital Signs (last 24 hours): Temp Pulse Resp BP Pulse Ox 98.1 F 106 H 20 112/77 99 01/13/17 15:51 01/13/17 15:51 01/13/17 15:51 01/13/17 15:51 01/13/17 15:51 Intake and Output: 01/13/17 01/14/17 18:59 06:59 Intake Total 650 Output Total 4 Balance 646 - Medications Medications: Current Medications Diphenhydramine HCl (Benadryl) 25 mg IVP Q3H PRN PRN Reason: Other Last Admin: 01/13/17 21:26 Dose: 25 mg Hydromorphone HCl (Dilaudid) 2 mg IVP Q3 PRN PRN Reason: Pain, severe (8-10) Last Admin: 01/13/17 21:26 Dose: 2 mg Vancomycin HCl 1,000 mg/ (Sodium Chloride) 250 mls @ 166.6 mls/hr IVPB Q12H [facility] Last Admin: 01/13/17 22:57 Dose: 166.6 mls/hr Cefepime HCl (Maxipime Iv 2 Gm Premix) 2 gm in 100 mls @ 200 mls/hr IVPB Q12H [facility] Stop: 01/17/17 22:01 Last Admin: 01/13/17 21:28 Dose: 200 mls/hr Mesalamine (Delzicol) 800 mg PO TID [facility] Last Admin: 01/13/17 18:18 Dose: 800 mg Mupirocin (Bactroban 2% Nasal) 0.5 gm MEKA BID [facility] Last Admin: 01/13/17 18:14 Dose: 0.5 gm Pantoprazole Sodium (Protonix Inj) 40 mg IVP DAILY [facility] Last Admin: 01/13/17 09:23 Dose: 40 mg Paroxetine HCl (Paxil) 10 mg PO DAILY [facility] Last Admin: 01/13/17 09:22 Dose: 10 mg Prednisone (Prednisone Tab) 20 mg PO DAILY [facility] Prednisone (Prednisone Tab) 10 mg PO DAILY [facility] Trazodone HCl (Desyrel) 50 mg PO HS [facility] Last Admin: 01/13/17 21:26 Dose: 50 mg - Labs Labs: 01/13/17 06:49 01/13/17 06:49 PT 11.2 SECONDS (9.7-12.2) 12/31/16 11:43 INR 1.0 12/31/16 11:43 APTT 28 SECONDS (21-34) 12/31/16 11:43 Assessment and Plan (1) Abscess Status: Acute (2) Crohn disease Status: Acute (3) Diarrhea Status: Acute (4) Intractable pain Status: Acute (5) Wound of right buttock Status: Acute (6) Abdominal pain Status: Acute (7) Constipation Status: Acute (8) Encounter for wound care Status: Acute (9) Fever Status: Acute (10) Foreign body Status: Acute (11) Intractable abdominal pain Status: Acute (12) Prophylactic measure Status: Acute (13) Rectal fistula Status: Acute (14) Rectal pain Status: Acute Attending/Attestation - Attestation I have personally seen and examined this patient.: Yes I have fully participated in the care of the patient.: Yes I have reviewed all pertinent clinical information, including history, physical exam and plan: Yes Notes (Text): case seen and discusse stephen lindsey and resident iv antibioitc dr. lazaro romero pt been told ot go to [facility] fo rfurther work up as gi prefer him to go to his previosu
[2017-01-12] MEDS: Cefepime IV 2 gm in Dextrose 2 GM/100 ML BAG IVPB SCH ×2 (10:09→22:34)
[2017-01-12] MEDS: Mupirocin 2% Ointment (NASAL) NAS SCH ×2 (10:23→17:51)
[2017-01-12 11:51] LABS: EOS # 0.4 K/uL (0.0-0.7)
[2017-01-12 11:59] LABS: BASO # 0.1 K/uL (0.0-0.2); BASO % 0.6 % (0.0-2.0); MEAN CELL VOLUME 61.9 fL (80.0-94.0)
[2017-01-12 12:13] LABS: CHLORIDE 96 mmol/L (98-107); POTASSIUM 3.8 mmol/L (3.6-5.2); SODIUM 136 mmol/L (132-148)
[2017-01-12 12:15] LABS: GFR AFRICAN-AMERICAN > 60
[2017-01-12 12:16] LABS: ALKALINE PHOSPHATASE 124 U/L (38-126); ALT/SGPT 101 U/L (21-72); AST/SGOT 54 U/L (17-59); BILIRUBIN,TOTAL 0.4 mg/dL (0.2-1.3); BLOOD UREA NITROGEN 13 mg/dL (9-20); CARBON DIOXIDE 31 mmol/L (22-30); GLUCOSE,RANDOM 88 mg/dL (75-110); TOTAL PROTEIN 6.4 g/dL (6.3-8.3)
[2017-01-12 12:17] LABS: CALCIUM 8.6 mg/dl (8.6-10.4)
[2017-01-12 12:25] LABS: EOS % 2.3 % (0.0-4.0); HEMATOCRIT 27.2 % (35.0-51.0); LYMPH # 5.3 K/uL (1.0-4.3); LYMPH % 28.7 % (20.0-40.0); MEAN CORPUSCULAR HEMOGLOBIN 18.3 pg (27.0-31.0); MEAN CORPUSCULAR HGB CONC 29.6 g/dL (33.0-37.0); MEAN PLATELET VOLUME 7.5 fL (7.2-11.7); MONO # 1.6 K/uL (0.0-0.8); RED CELL DISTRIBUTION WIDTH 17.7 % (11.5-14.5); WHITE BLOOD COUNT 18.3 K/uL (4.8-10.8)
[2017-01-12] MEDS ORDERED: Cefepime IV 2 gm in Dextrose 2 GM/100 ML BAG IVPB SCH (13:00)
--- NOTE | 2017-01-12 15:06 | CP.PCM.PN ---
Subjective - Date & Time of Evaluation Date of Evaluation: 01/12/17 Time of Evaluation: 03:00 - Subjective Subjective: dictated Objective - Vital Signs/Intake and Output Vital Signs (last 24 hours): Temp Pulse Resp BP Pulse Ox 98.1 F 101 H 20 121/81 98 01/12/17 00:00 01/12/17 00:00 01/12/17 00:00 01/12/17 00:00 01/12/17 00:00 Intake and Output: 01/12/17 01/12/17 06:59 18:59 Intake Total 350 Balance 350 - Medications Medications: Current Medications Diphenhydramine HCl (Benadryl) 25 mg IVP Q3H PRN PRN Reason: Other Last Admin: 01/12/17 13:31 Dose: 25 mg Hydromorphone HCl (Dilaudid) 2 mg IVP Q3 PRN PRN Reason: Pain, severe (8-10) Last Admin: 01/12/17 13:31 Dose: 2 mg Vancomycin HCl 1,000 mg/ (Sodium Chloride) 250 mls @ 166.6 mls/hr IVPB Q12H [facility] Last Admin: 01/12/17 12:15 Dose: 166.6 mls/hr Cefepime HCl (Maxipime Iv 2 Gm Premix) 2 gm in 100 mls @ 200 mls/hr IVPB Q12H [facility] Stop: 01/17/17 22:01 Mesalamine (Delzicol) 800 mg PO TID [facility] Last Admin: 01/12/17 13:31 Dose: 800 mg Mupirocin (Bactroban 2% Nasal) 0.5 gm MEKA BID [facility] Last Admin: 01/12/17 10:23 Dose: 0.5 gm Pantoprazole Sodium (Protonix Inj) 40 mg IVP DAILY [facility] Last Admin: 01/12/17 10:08 Dose: 40 mg Paroxetine HCl (Paxil) 10 mg PO DAILY [facility] Last Admin: 01/12/17 10:09 Dose: 10 mg Prednisone (Prednisone Tab) 40 mg PO DAILY [facility] Last Admin: 01/12/17 10:08 Dose: 40 mg Trazodone HCl (Desyrel) 50 mg PO HS [facility] Last Admin: 01/11/17 21:27 Dose: 50 mg - Labs Labs: 01/12/17 11:36 01/12/17 11:36 PT 11.2 SECONDS (9.7-12.2) 12/31/16 11:43 INR 1.0 12/31/16 11:43 APTT 28 SECONDS (21-34) 12/31/16 11:43
--- NOTE | 2017-01-12 15:35 | PN ---
DATE: 01/12/2017 The patient was held back on Thursday because of increasing WBC count. It was 21.3 and he was having s till bleeding through probably the fistula I would think and patient still has a lot of issues and un able to get a GI on the case. He says when he passes gas, blood comes up and bleeding from the rectu m. He does have a colostomy bag and colostomy bag has undigested food and he is still with problem o f Crohn's. Axilla seems to be healing at this time. PHYSICAL EXAMINATION: VITAL SIGNS: T-max is 98.1, pulse is 101, blood pressure 121/81, respirations are 20. He says he is eating a little better now with steroids on. HEENT: Unremarkable. NECK: Supple. LUNGS: Clear. No crackles or rales present. HEART: S1, S2 is tachy. ABDOMEN: Soft. Colostomy present with undigested food. EXTREMITIES: No edema. LABORATORY DATA: Labs are noted. He does have excoriation of the skin all along the fold between th e buttocks going up to the anterior groin. White count is 18.3, hemoglobin 8.1, hematocrit 27.2, kareem telet count is 385. Sodium is 136, potassium 3.8, chloride 96, CO2 is 31, and creatinine is 0.6 and his ALT is 101. Total protein is at 3.3. Blood cultures from 01/09 came out negative and one set was only done and his PICC line they were not able to draw blood from it but it is functioning otherwise . Able to give fluids. Urine culture is negative. Wound culture is also negative from the axilla, which had MRSA and the axillary wound is healing. So at this time, I think we will plan discharge tomorrow and I have told him to follow with a gastroe nterologist as the issue seems to be to control the Crohn's at this time. We have given him ample am ount of antibiotics and he has already developed resistant organisms and it was from 12/21 and it is , almost 3 weeks of antibiotics, so can stop the antibiotics and keep the steroids and Crohn's mohamud atment on and to decrease by 10 mg every week with the steroids and he needs to get to GI and see how he can be managed for Crohn disease. He says his mother wants to talk to me and I have given my ashlie ne number to him and she can call me and also will discuss the plan with Dr. Eric Barrett. Santosh Daniel MD cc: [id number] TT: 01/12/2017 15:34:40 Confirmation # [id number] Dictation # [id number]
--- NOTE | 2017-01-12 18:12 | CP.PCM.PN ---
Subjective - Date & Time of Evaluation Date of Evaluation: 01/12/17 Time of Evaluation: 08:20 - Subjective Subjective: clinically same Objective - Vital Signs/Intake and Output Vital Signs (last 24 hours): Temp Pulse Resp BP Pulse Ox 98.3 F 102 H 20 118/83 99 01/12/17 15:24 01/12/17 15:24 01/12/17 15:24 01/12/17 15:24 01/12/17 15:24 Intake and Output: 01/12/17 01/12/17 06:59 18:59 Intake Total 350 710 Balance 350 710 - Medications Medications: Current Medications Diphenhydramine HCl (Benadryl) 25 mg IVP Q3H PRN PRN Reason: Other Last Admin: 01/12/17 16:18 Dose: 25 mg Hydromorphone HCl (Dilaudid) 2 mg IVP Q3 PRN PRN Reason: Pain, severe (8-10) Last Admin: 01/12/17 16:18 Dose: 2 mg Vancomycin HCl 1,000 mg/ (Sodium Chloride) 250 mls @ 166.6 mls/hr IVPB Q12H [facility] Last Admin: 01/12/17 12:15 Dose: 166.6 mls/hr Cefepime HCl (Maxipime Iv 2 Gm Premix) 2 gm in 100 mls @ 200 mls/hr IVPB Q12H [facility] Stop: 01/17/17 22:01 Mesalamine (Delzicol) 800 mg PO TID [facility] Last Admin: 01/12/17 17:51 Dose: 800 mg Mupirocin (Bactroban 2% Nasal) 0.5 gm MEKA BID [facility] Last Admin: 01/12/17 17:51 Dose: 0.5 gm Pantoprazole Sodium (Protonix Inj) 40 mg IVP DAILY [facility] Last Admin: 01/12/17 10:08 Dose: 40 mg Paroxetine HCl (Paxil) 10 mg PO DAILY [facility] Last Admin: 01/12/17 10:09 Dose: 10 mg Prednisone (Prednisone Tab) 40 mg PO DAILY [facility] Last Admin: 01/12/17 10:08 Dose: 40 mg Trazodone HCl (Desyrel) 50 mg PO HS [facility] Last Admin: 01/11/17 21:27 Dose: 50 mg - Labs Labs: 01/12/17 11:36 01/12/17 11:36 PT 11.2 SECONDS (9.7-12.2) 12/31/16 11:43 INR 1.0 12/31/16 11:43 APTT 28 SECONDS (21-34) 12/31/16 11:43 - Constitutional Appears: Well - Head Exam Head Exam: ATRAUMATIC, NORMAL INSPECTION, NORMOCEPHALIC - Eye Exam Eye Exam: EOMI, Normal appearance, PERRL Pupil Exam: NORMAL ACCOMODATION, PERRL - ENT Exam ENT Exam: Mucous Membranes Moist, Normal Exam - Respiratory Exam Respiratory Exam: Decreased Breath Sounds - Cardiovascular Exam Cardiovascular Exam: REGULAR RHYTHM, +S1, +S2 - GI/Abdominal Exam GI & Abdominal Exam: Soft, Diminished Bowel Sounds - Rectal Exam Rectal Exam: Deferred Assessment and Plan (1) Abscess Status: Acute (2) Crohn disease Status: Acute (3) Diarrhea Status: Acute (4) Intractable pain Status: Acute (5) Wound of right buttock Status: Acute (6) Abdominal pain Status: Acute (7) Constipation Status: Acute (8) Encounter for wound care Status: Acute (9) Fever Status: Acute (10) Foreign body Status: Acute (11) Intractable abdominal pain Status: Acute (12) Prophylactic measure Status: Acute (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 lazaro romero pt [facility] work [facility] as gi prefer him to go to his previosu
[2017-01-13] MEDS: DiphenhydrAMINE 50 mg/ml Inj IVP PRN ×7 (01:26→21:26)
[2017-01-13 07:00] LABS: BASO # 0.1 K/uL (0.0-0.2); BASO % 0.6 % (0.0-2.0); EOS # 0.3 K/uL (0.0-0.7); EOS % 1.4 % (0.0-4.0); HEMATOCRIT 27.7 % (35.0-51.0); LYMPH # 5.8 K/uL (1.0-4.3); LYMPH % 27.4 % (20.0-40.0); MEAN CELL VOLUME 61.8 fL (80.0-94.0); MEAN CORPUSCULAR HEMOGLOBIN 18.1 pg (27.0-31.0); MEAN CORPUSCULAR HGB CONC 29.3 g/dL (33.0-37.0); MEAN PLATELET VOLUME 7.9 fL (7.2-11.7); MONO # 1.6 K/uL (0.0-0.8); MONO % 7.8 % (0.0-10.0); NRBC % 0.1 % (0.0-2.0); RED CELL DISTRIBUTION WIDTH 17.7 % (11.5-14.5); WHITE BLOOD COUNT 21.2 K/uL (4.8-10.8)
[2017-01-13 07:18] LABS: CHLORIDE 96 mmol/L (98-107)
[2017-01-13 07:19] LABS: POTASSIUM 3.5 mmol/L (3.6-5.2); SODIUM 135 mmol/L (132-148)
[2017-01-13 07:21] LABS: ALB/GLOB RATIO 1.2 (1.0-2.1); AST/SGOT 23 U/L (17-59); BILIRUBIN,TOTAL 0.4 mg/dL (0.2-1.3); BLOOD UREA NITROGEN 13 mg/dL (9-20); CARBON DIOXIDE 29 mmol/L (22-30); GFR AFRICAN-AMERICAN > 60; TOTAL PROTEIN 5.7 g/dL (6.3-8.3)
[2017-01-13 07:22] LABS: ALKALINE PHOSPHATASE 110 U/L (38-126); ALT/SGPT 74 U/L (21-72); CALCIUM 7.8 mg/dl (8.6-10.4); GLUCOSE,RANDOM 100 mg/dL (75-110)
[2017-01-13] MEDS: Mupirocin 2% Ointment (NASAL) NAS SCH ×2 (09:22→18:14)
[2017-01-13] MEDS: Cefepime IV 2 gm in Dextrose 2 GM/100 ML BAG IVPB SCH ×2 (09:24→21:28)
--- NOTE | 2017-01-13 10:04 | CP.PCM.PN ---
<Antonio Foster - Last Filed: 01/13/17 14:12> Subjective - Date & Time of Evaluation Date of Evaluation: 01/13/17 Time of Evaluation: 10:10 - Subjective Subjective: Medicine Note- Dr. Barrett's service Patient was seen and examined at bedside. Patient reports that he still has blood coming out of his colostomy and from his rectum. Patient reports no current pain, he says the axilla pain is well controlled and improved. No additional acute complaints. No events overnight. Objective - Vital Signs/Intake and Output Vital Signs (last 24 hours): Temp Pulse Resp BP Pulse Ox 97.8 F 76 20 114/73 100 01/13/17 08:04 01/13/17 08:04 01/13/17 08:04 01/13/17 08:04 01/13/17 08:04 - Medications Medications: Current Medications Diphenhydramine HCl (Benadryl) 25 mg IVP Q3H PRN PRN Reason: Other Last Admin: 01/13/17 09:04 Dose: 25 mg Hydromorphone HCl (Dilaudid) 2 mg IVP Q3 PRN PRN Reason: Pain, severe (8-10) Last Admin: 01/13/17 09:04 Dose: 2 mg Vancomycin HCl 1,000 mg/ (Sodium Chloride) 250 mls @ 166.6 mls/hr IVPB Q12H [facility] Last Admin: 01/12/17 23:35 Dose: 166.6 mls/hr Cefepime HCl (Maxipime Iv 2 Gm Premix) 2 gm in 100 mls @ 200 mls/hr IVPB Q12H [facility] Stop: 01/17/17 22:01 Last Admin: 01/13/17 09:24 Dose: 200 mls/hr Mesalamine (Delzicol) 800 mg PO TID [facility] Last Admin: 01/13/17 09:23 Dose: 800 mg Mupirocin (Bactroban 2% Nasal) 0.5 gm MEKA BID [facility] Last Admin: 01/13/17 09:22 Dose: 0.5 gm Pantoprazole Sodium (Protonix Inj) 40 mg IVP DAILY [facility] Last Admin: 01/13/17 09:23 Dose: 40 mg Paroxetine HCl (Paxil) 10 mg PO DAILY [facility] Last Admin: 01/13/17 09:22 Dose: 10 mg Prednisone (Prednisone Tab) 40 mg PO DAILY [facility] Last Admin: 01/13/17 09:22 Dose: 40 mg Trazodone HCl (Desyrel) 50 mg PO HS [facility] Last Admin: 01/12/17 22:34 Dose: 50 mg - Labs Labs: 01/13/17 06:49 01/13/17 06:49 PT 11.2 SECONDS (9.7-12.2) 12/31/16 11:43 INR 1.0 12/31/16 11:43 APTT 28 SECONDS (21-34) 12/31/16 11:43 - Constitutional Appears: Non-toxic, No Acute Distress - Head Exam Head Exam: ATRAUMATIC, NORMAL INSPECTION, NORMOCEPHALIC - Eye Exam Pupil Exam: NORMAL ACCOMODATION, PERRL - ENT Exam ENT Exam: Mucous Membranes Moist - Respiratory Exam Respiratory Exam: Clear to Ausculation Bilateral, NORMAL BREATHING PATTERN. absent: Prolonged Expiratory Phase, Rales, Rhonchi, Wheezes - Cardiovascular Exam Cardiovascular Exam: REGULAR RHYTHM, +S1, +S2 - GI/Abdominal Exam GI & Abdominal Exam: Soft, Normal Bowel Sounds. absent: Guarding, Tenderness, Diminished Bowel Sounds, Hernia, Hypoactive Bowel Sounds Additional comments: Colostomy bag functioning - Extremities Exam Extremities Exam: Normal Capillary Refill, Normal Inspection - Neurological Exam Neurological Exam: Alert, Awake, Oriented x3 - Psychiatric Exam Psychiatric exam: Normal Affect, Normal Mood - Skin Skin Exam: Dry, Intact, Normal Color, Warm Assessment and Plan - Assessment and Plan (Free Text) Assessment: Perianal abscess Dr. Daniel consulted, help appreciated- As per Dr. Daniel, patient will need to be on antibiotics until 01/09. Per Dr Daniel may dc on bactrim today. Dr. Taylor consulted, help appreciated. Culture showed MRSA and Citrobacter diversus. Initial blood culture showed coag negative Staph. Repeat blood culture negative. CT showed no new inflammation, surgery intervention at this time. Cefepime 2g IV q12H started on 12/24. Vancomycin 1g IV q12H started on 12/22. Continue Dilaudid 2mg IVP Q3h Continue Benadryl 25mg IVP Q3h Wound care nursing referral Axillary pain s/p incision and drainage of abscess, debridement of abscess wall cavity on 01/01, lymph node pathology showed reactive lymph node. Wound care nurse referral. Wound culture MRSA positive on 12/29, repeat culture from [place] negative Vancomycin 1g IV q12H started on 12/22. Cefepime 2g IV q12H started on 12/24. Crohn's colitis Mesalamine 800mg PO TID. Prednisone 40mg PO daily per Dr. Daniel. Pt currently takes Humira once every 2 weeks. Outpatient evaluation needed as per Dr. Lopez and Dr. Shukla from previous visits. Pt agreed for outpatient follow up after discharge. Prophylactic measure SCD, Protonix. Management per Dr. Arnold MAXWELL Planning <Osvaldo Barrett - Last Filed: 01/13/17 22:57> Objective - Vital Signs/Intake and Output Vital Signs (last 24 hours): Temp Pulse Resp BP Pulse Ox 98.1 F 106 H 20 112/77 99 01/13/17 15:51 01/13/17 15:51 01/13/17 15:51 01/13/17 15:51 01/13/17 15:51 Intake and Output: 01/13/17 01/14/17 18:59 06:59 Intake Total 650 Output Total 4 Balance 646 - Medications Medications: Current Medications Diphenhydramine HCl (Benadryl) 25 mg IVP Q3H PRN PRN Reason: Other Last Admin: 01/13/17 21:26 Dose: 25 mg Hydromorphone HCl (Dilaudid) 2 mg IVP Q3 PRN PRN Reason: Pain, severe (8-10) Last Admin: 01/13/17 21:26 Dose: 2 mg Vancomycin HCl 1,000 mg/ (Sodium Chloride) 250 mls @ 166.6 mls/hr IVPB Q12H [facility] Last Admin: 01/13/17 11:33 Dose: 166.6 mls/hr Cefepime HCl (Maxipime Iv 2 Gm Premix) 2 gm in 100 mls @ 200 mls/hr IVPB Q12H [facility] Stop: 01/17/17 22:01 Last Admin: 01/13/17 21:28 Dose: 200 mls/hr Mesalamine (Delzicol) 800 mg PO TID [facility] Last Admin: 01/13/17 18:18 Dose: 800 mg Mupirocin (Bactroban 2% Nasal) 0.5 gm MEKA BID [facility] Last Admin: 01/13/17 18:14 Dose: 0.5 gm Pantoprazole Sodium (Protonix Inj) 40 mg IVP DAILY [facility] Last Admin: 01/13/17 09:23 Dose: 40 mg Paroxetine HCl (Paxil) 10 mg PO DAILY [facility] Last Admin: 01/13/17 09:22 Dose: 10 mg Prednisone (Prednisone Tab) 20 mg PO DAILY [facility] Prednisone (Prednisone Tab) 10 mg PO DAILY [facility] Trazodone HCl (Desyrel) 50 mg PO HS [facility] Last Admin: 01/13/17 21:26 Dose: 50 mg - Labs Labs: 01/13/17 06:49 01/13/17 06:49 PT 11.2 SECONDS (9.7-12.2) 12/31/16 11:43 INR 1.0 12/31/16 11:43 APTT 28 SECONDS (21-34) 12/31/16 11:43 Attending/Attestation - Attestation I have personally seen and examined this patient.: Yes I have fully participated in the care of the patient.: Yes I have reviewed all pertinent clinical information, including history, physical exam and plan: Yes Notes (Text): 01/13/17 22:51 discuss with maxim laws staff and resident pt [facility] crohns diseaes anemia consultation Dr. Daniel consulted, help appreciated- As per Dr. Daniel, patient will need to be on antibiotics until 01/09. Per Dr Daniel may dc on bactrim today. Dr. Taylor consulted, help appreciated. Culture showed MRSA and Citrobacter diversus. Initial blood culture showed coag negative Staph. Repeat blood culture negative. CT showed no new inflammation, surgery intervention at this time. Cefepime 2g IV q12H started on 12/24. Vancomycin 1g IV q12H started on 12/22. Continue Dilaudid 2mg IVP Q3h Continue Benadryl 25mg IVP Q3h Wound care nursing referral
--- NOTE | 2017-01-13 11:15 | CP.PCM.PN ---
Subjective - Date & Time of Evaluation Date of Evaluation: 01/13/17 Time of Evaluation: 09:00 - Subjective Subjective: clinically same Objective - Vital Signs/Intake and Output Vital Signs (last 24 hours): Temp Pulse Resp BP Pulse Ox 97.8 F 76 20 114/73 100 01/13/17 08:04 01/13/17 08:04 01/13/17 08:04 01/13/17 08:04 01/13/17 08:04 - Medications Medications: Current Medications Diphenhydramine HCl (Benadryl) 25 mg IVP Q3H PRN PRN Reason: Other Last Admin: 01/13/17 09:04 Dose: 25 mg Hydromorphone HCl (Dilaudid) 2 mg IVP Q3 PRN PRN Reason: Pain, severe (8-10) Last Admin: 01/13/17 09:04 Dose: 2 mg Vancomycin HCl 1,000 mg/ (Sodium Chloride) 250 mls @ 166.6 mls/hr IVPB Q12H [facility] Last Admin: 01/12/17 23:35 Dose: 166.6 mls/hr Cefepime HCl (Maxipime Iv 2 Gm Premix) 2 gm in 100 mls @ 200 mls/hr IVPB Q12H [facility] Stop: 01/17/17 22:01 Last Admin: 01/13/17 09:24 Dose: 200 mls/hr Mesalamine (Delzicol) 800 mg PO TID [facility] Last Admin: 01/13/17 09:23 Dose: 800 mg Mupirocin (Bactroban 2% Nasal) 0.5 gm MEKA BID [facility] Last Admin: 01/13/17 09:22 Dose: 0.5 gm Pantoprazole Sodium (Protonix Inj) 40 mg IVP DAILY [facility] Last Admin: 01/13/17 09:23 Dose: 40 mg Paroxetine HCl (Paxil) 10 mg PO DAILY [facility] Last Admin: 01/13/17 09:22 Dose: 10 mg Prednisone (Prednisone Tab) 40 mg PO DAILY [facility] Last Admin: 01/13/17 09:22 Dose: 40 mg Trazodone HCl (Desyrel) 50 mg PO HS [facility] Last Admin: 01/12/17 22:34 Dose: 50 mg - Labs Labs: 01/13/17 06:49 01/13/17 06:49 PT 11.2 SECONDS (9.7-12.2) 12/31/16 11:43 INR 1.0 12/31/16 11:43 APTT 28 SECONDS (21-34) 12/31/16 11:43 - Constitutional Appears: Well - Head Exam Head Exam: ATRAUMATIC, NORMAL INSPECTION, NORMOCEPHALIC - Eye Exam Eye Exam: EOMI, Normal appearance, PERRL Pupil Exam: NORMAL ACCOMODATION, PERRL - ENT Exam ENT Exam: Mucous Membranes Moist, Normal Exam - Neck Exam Neck Exam: Full ROM, Normal Inspection. absent: Lymphadenopathy - Respiratory Exam Respiratory Exam: Decreased Breath Sounds - Cardiovascular Exam Cardiovascular Exam: REGULAR RHYTHM, +S1, +S2 - GI/Abdominal Exam GI & Abdominal Exam: Soft, Diminished Bowel Sounds - Rectal Exam Rectal Exam: Deferred Assessment and Plan (1) Abscess Status: Acute (2) Crohn disease Status: Acute (3) Diarrhea Status: Acute (4) Intractable pain Status: Acute (5) Wound of right buttock Status: Acute (6) Abdominal pain Status: Acute (7) Constipation Status: Acute (8) Encounter for wound care Status: Acute (9) Fever Status: Acute (10) Foreign body Status: Acute (11) Intractable abdominal pain Status: Acute (12) Prophylactic measure Status: Acute (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 Daniel consulted, help appreciated- As per Dr. Daniel, patient will need to be on antibiotics until 01/09. Per Dr Daniel may dc on bactrim today. Dr. Taylor consulted, help appreciated. Culture showed MRSA and Citrobacter diversus. Initial blood culture showed coag negative Staph. Repeat blood culture negative. CT showed no new inflammation, surgery intervention at this time. Cefepime 2g IV q12H started on 12/24. Vancomycin 1g IV q12H started on 12/22. Continue Dilaudid 2mg IVP Q3h Continue Benadryl 25mg IVP Q3h Wound care nursing referral
[2017-01-13] MEDS ORDERED: Potassium Chloride 20 mEq ER Tab PO ONE (14:00)
[2017-01-14] MEDS: DiphenhydrAMINE 50 mg/ml Inj IVP PRN ×8 (00:41→22:48)
[2017-01-14 08:03] LABS: BASO # 0.1 K/uL (0.0-0.2); BASO % 0.4 % (0.0-2.0); EOS # 0.3 K/uL (0.0-0.7); EOS % 1.3 % (0.0-4.0); LYMPH # 6.1 K/uL (1.0-4.3); LYMPH % 27.6 % (20.0-40.0); MEAN CELL VOLUME 61.8 fL (80.0-94.0); MEAN CORPUSCULAR HEMOGLOBIN 18.1 pg (27.0-31.0); MEAN CORPUSCULAR HGB CONC 29.4 g/dL (33.0-37.0); MEAN PLATELET VOLUME 7.9 fL (7.2-11.7); MONO # 1.3 K/uL (0.0-0.8); MONO % 5.8 % (0.0-10.0); NRBC % 0.1 % (0.0-2.0); RED CELL DISTRIBUTION WIDTH 17.6 % (11.5-14.5); WHITE BLOOD COUNT 22.1 K/uL (4.8-10.8)
[2017-01-14 08:32] LABS: CHLORIDE 98 mmol/L (98-107); POTASSIUM 3.5 mmol/L (3.6-5.2); SODIUM 136 mmol/L (132-148)
[2017-01-14 08:34] LABS: AST/SGOT 19 U/L (17-59); BILIRUBIN,TOTAL 0.3 mg/dL (0.2-1.3); CARBON DIOXIDE 28 mmol/L (22-30); GFR AFRICAN-AMERICAN > 60
[2017-01-14 08:35] LABS: ALB/GLOB RATIO 1.1 (1.0-2.1); ALKALINE PHOSPHATASE 102 U/L (38-126); ALT/SGPT 52 U/L (21-72); BLOOD UREA NITROGEN 15 mg/dL (9-20); GLUCOSE,RANDOM 93 mg/dL (75-110); TOTAL PROTEIN 6.2 g/dL (6.3-8.3)
[2017-01-14 08:36] LABS: CALCIUM 7.8 mg/dl (8.6-10.4)
[2017-01-14] MEDS: Mupirocin 2% Ointment (NASAL) NAS SCH ×2 (10:23→17:39)
[2017-01-14] MEDS: Cefepime IV 2 gm in Dextrose 2 GM/100 ML BAG IVPB SCH (10:25)
--- NOTE | 2017-01-14 11:18 | CON ---
DATE: 01/13/2017 REASON FOR CONSULTATION: Called on consult for anemia. HISTORY OF PRESENT ILLNESS: This is a 21-year-old gentleman, known case of Crohn's disease, with per ianal abscess and fistula. Is on IV antibiotics and also on steroids. The patient's hemoglobin is p ersistently low so I am called on consult for further evaluation and suggestions. PAST MEDICAL HISTORY: Significant for Crohn's disease. MEDICATIONS: Include at the present time, cefepime, Benadryl 25 mg, Dilaudid 2 mg q. 3 hourly, Delzi col 800 mg t.i.d., Bactroban 2% nasal spray b.i.d., Protonix 40 mg IV, Paxil 10 mg daily, prednisone 20 mg daily (being tapered off now), trazodone 50 mg p.o. at bedtime, vancomycin IV. ALLERGIES: TO MORPHINE. SOCIAL HISTORY: Denies smoking or ethanol use. REVIEW OF SYSTEMS: Essentially, other than some abdominal discomfort, is doing okay. There is no fe anh or chills. No nausea, vomiting, melena, hemoptysis, or hematemesis. No dysuria or hematuria. PHYSICAL EXAMINATION: GENERAL: Awake and alert, oriented, quiet, pleasant, not in acute distress. VITAL SIGNS: Temperature 97.9, pulse 99, respiration is 20, blood pressure is 124/84. HEAD: Normoc ephalic, atraumatic. EYES: Conjunctivae are pale. Sclerae white. Pupils reacting to light. EARS, NOSE AND THROAT: Within normal limits. LUNGS: Bilaterally good air entry. Clear to auscultation and percussion. HEART: S1, S2, regular. No gallop, no murmur. ABDOMEN: Soft, not distended, not tender. No hepatosplenomegaly. CENTRAL NERVOUS SYSTEM: No gross motor or sensory deficits. LYMPH NODE: No cervical, axillary or inguinal lymph nodes palpable. LABORATORY DATA: WBC 21,200, hemoglobin 8.1, hematocrit 27.7, MCV 62, platelet count 407,000. Neutr ophils are 13,300, lymphocytes are 5800, monocytes are 1600. SMA-18 is essentially normal except alb umin of 3.1 and SGPT of 74. GFR is normal. IMPRESSION: 1. Microcytic anemia, rule out iron deficiency, rule out hemoglobinopathy also. 2. Reactive leukocytosis neutrophilia. 3. Reactive thrombocytosis. PLAN: Clinical status discussed with the patient. Will get iron, TIBC, ferritin, B12 and folate lev els. If those are normal, will get hemoglobin electrophoresis. If those are normal too, patient can be treated with Procrit. The patient has understood that and agreed with that. The patient's react vy leukocytosis neutrophilia can be monitored as an outpatient to make sure that the neutrophilia perales s resolved. Reactive thrombocytosis, which is improving, does not require any treatment. Hematologi radha, I will continue to follow up the patient with you. Thank you for letting me participate in the care of this patient. Vinnie Mccallum MD cc: [id number] TT: 01/14/2017 11:17:41 Confirmation # [id number] Dictation # [id number] vidhi
[2017-01-14 11:33] LABS: IRON 17 ug/dL (49-181)
[2017-01-14 11:38] LABS: IRON 21 ug/dL (49-181)
--- NOTE | 2017-01-14 12:18 | CP.PCM.PN ---
<Jai Ferrer - Last Filed: 01/14/17 14:26> Subjective - Date & Time of Evaluation Date of Evaluation: 01/14/17 Time of Evaluation: 09:00 - Subjective Subjective: PGY2 on medicine Dr. Barrett service: Pt seen and examined at bedside this morning. Pt reports fast transit time and his colostomy bag filled up fast as usual. Pt also reports blood per rectum as usual. Pain is controlled. No other acute events overnight per RN. Objective - Vital Signs/Intake and Output Vital Signs (last 24 hours): Temp Pulse Resp BP Pulse Ox 97.9 F 88 20 109/70 99 01/14/17 08:13 01/14/17 08:13 01/14/17 08:13 01/14/17 08:13 01/14/17 08:13 - Medications Medications: Current Medications Diphenhydramine HCl (Benadryl) 25 mg IVP Q3H PRN PRN Reason: Other Last Admin: 01/14/17 10:32 Dose: 25 mg Hydromorphone HCl (Dilaudid) 2 mg IVP Q3 PRN PRN Reason: Pain, severe (8-10) Last Admin: 01/14/17 10:25 Dose: 2 mg Vancomycin HCl 1,000 mg/ (Sodium Chloride) 250 mls @ 166.6 mls/hr IVPB Q12H [facility] Last Admin: 01/13/17 22:57 Dose: 166.6 mls/hr Cefepime HCl (Maxipime Iv 2 Gm Premix) 2 gm in 100 mls @ 200 mls/hr IVPB Q12H [facility] Stop: 01/17/17 22:01 Last Admin: 01/14/17 10:25 Dose: 200 mls/hr Mesalamine (Delzicol) 800 mg PO TID [facility] Last Admin: 01/14/17 10:24 Dose: 800 mg Mupirocin (Bactroban 2% Nasal) 0.5 gm MEKA BID [facility] Last Admin: 01/14/17 10:23 Dose: 0.5 gm Pantoprazole Sodium (Protonix Inj) 40 mg IVP DAILY [facility] Last Admin: 01/14/17 10:24 Dose: 40 mg Paroxetine HCl (Paxil) 10 mg PO DAILY [facility] Last Admin: 01/14/17 10:24 Dose: 10 mg Prednisone (Prednisone Tab) 20 mg PO DAILY [facility] Last Admin: 01/14/17 10:24 Dose: 20 mg Prednisone (Prednisone Tab) 10 mg PO DAILY [facility] Last Admin: 01/14/17 10:24 Dose: 10 mg Trazodone HCl (Desyrel) 50 mg PO HS [facility] Last Admin: 01/13/17 21:26 Dose: 50 mg - Labs Labs: 01/14/17 07:50 01/14/17 07:50 PT 11.2 SECONDS (9.7-12.2) 12/31/16 11:43 INR 1.0 12/31/16 11:43 APTT 28 SECONDS (21-34) 12/31/16 11:43 - Constitutional Appears: Non-toxic, No Acute Distress - Head Exam Head Exam: NORMOCEPHALIC - Eye Exam Eye Exam: Normal appearance Pupil Exam: NORMAL ACCOMODATION - Respiratory Exam Respiratory Exam: Clear to Ausculation Bilateral, NORMAL BREATHING PATTERN. absent: Wheezes - Cardiovascular Exam Cardiovascular Exam: REGULAR RHYTHM, +S1, +S2. absent: Gallop, Rubs - GI/Abdominal Exam GI & Abdominal Exam: Soft, Normal Bowel Sounds. absent: Hyperactive Bowel Sounds Additional comments: left colostomy bag with brown stool - Neurological Exam Neurological Exam: Alert, Awake, Oriented x3 - Psychiatric Exam Psychiatric exam: Normal Mood - Skin Skin Exam: Intact Assessment and Plan - Assessment and Plan (Free Text) Assessment: Perianal abscess Dr. Daniel consulted, help appreciated- As per Dr. Daniel, patient will need to be on antibiotics until 01/09. Per Dr Daniel may dc on bactrim today. Dr. Taylor consulted, help appreciated. Culture showed MRSA and Citrobacter diversus. Initial blood culture showed coag negative Staph. Repeat blood culture negative. CT showed no new inflammation, surgery intervention at this time. Cefepime 2g IV q12H started on 12/24. Vancomycin 1g IV q12H started on 12/22. Continue Dilaudid 2mg IVP Q3h Continue Benadryl 25mg IVP Q3h Wound care nursing referral Pt can be discharged tmr per Dr. Daniel after repeat CBC. Pt can be discharged with Bactrim DS 1 tab PO BID for 7 more days and Prednisone taper per Dr. Daniel. Axillary pain s/p incision and drainage of abscess, debridement of abscess wall cavity on 01/01, lymph node pathology showed reactive lymph node. Wound care nurse referral. Wound culture MRSA positive on 12/29, repeat culture from [place] negative Vancomycin 1g IV q12H started on 12/22. Cefepime 2g IV q12H started on 12/24. Crohn's colitis Mesalamine 800mg PO TID. Prednisone tapering as per Dr. Daniel. Pt currently takes Humira once every 2 weeks. Outpatient evaluation needed as per Dr. Lopez and Dr. Shukla from previous visits. Pt agreed for outpatient follow up after discharge. Microcytic Anemia Likely secondary to bleeding due to Crohn's. Hgb stable around 7-8, MCV stable at 61. Heme Dr. Mccallum consulted, help appreciated. F/U iron studies and anemia work up. Prophylactic measure SCD, Protonix. Management per Dr. Barrett <Osvaldo Barrett S - Last Filed: 01/14/17 19:56> Objective - Vital Signs/Intake and Output Vital Signs (last 24 hours): Temp Pulse Resp BP Pulse Ox 98.3 F 99 H 20 110/79 97 01/14/17 15:42 01/14/17 15:42 01/14/17 15:42 01/14/17 15:42 01/14/17 15:42 Intake and Output: 01/14/17 01/15/17 18:59 06:59 Intake Total 680 Balance 680 - Medications Medications: Current Medications Diphenhydramine HCl (Benadryl) 25 mg IVP Q3H PRN PRN Reason: Other Last Admin: 01/14/17 19:48 Dose: 25 mg Hydromorphone HCl (Dilaudid) 2 mg IVP Q3 PRN PRN Reason: Pain, severe (8-10) Last Admin: 01/14/17 19:46 Dose: 2 mg Vancomycin HCl 1,000 mg/ (Sodium Chloride) 250 mls @ 166.6 mls/hr IVPB Q12H [facility] Last Admin: 01/14/17 12:15 Dose: 166.6 mls/hr Mesalamine (Delzicol) 800 mg PO TID [facility] Last Admin: 01/14/17 17:38 Dose: 800 mg Mupirocin (Bactroban 2% Nasal) 0.5 gm MEKA BID [facility] Last Admin: 01/14/17 17:39 Dose: 0.5 gm Pantoprazole Sodium (Protonix Inj) 40 mg IVP DAILY [facility] Last Admin: 01/14/17 10:24 Dose: 40 mg Paroxetine HCl (Paxil) 10 mg PO DAILY [facility] Last Admin: 01/14/17 10:24 Dose: 10 mg Prednisone (Prednisone Tab) 20 mg PO DAILY [facility] Last Admin: 01/14/17 10:24 Dose: 20 mg Prednisone (Prednisone Tab) 10 mg PO DAILY [facility] Last Admin: 01/14/17 10:24 Dose: 10 mg Trazodone HCl (Desyrel) 50 mg PO HS [facility] Last Admin: 01/13/17 21:26 Dose: 50 mg - Labs Labs: 01/14/17 07:50 01/14/17 07:50 PT 11.2 SECONDS (9.7-12.2) 12/31/16 11:43 INR 1.0 12/31/16 11:43 APTT 28 SECONDS (21-34) 12/31/16 11:43 Assessment and Plan (1) Abdominal pain Status: Acute (2) Abscess Status: Acute (3) Constipation Status: Acute (4) Crohn disease Status: Acute (5) Diarrhea Status: Acute (6) Encounter for wound care Status: Acute (7) Fever Status: Acute (8) Foreign body Status: Acute (9) Intractable abdominal pain Status: Acute (10) Intractable pain Status: Acute (11) Prophylactic measure Status: Acute (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
[2017-01-14] MEDS ORDERED: Potassium Chloride 20 mEq ER Tab PO ONE (12:21)
[2017-01-14 12:34] LABS: FOLATE 7.1 ng/mL
--- NOTE | 2017-01-14 13:51 | CP.PCM.PN ---
Subjective - Date & Time of Evaluation Date of Evaluation: 01/14/17 Time of Evaluation: 01:35 - Subjective Subjective: dictated Objective - Vital Signs/Intake and Output Vital Signs (last 24 hours): Temp Pulse Resp BP Pulse Ox 97.9 F 88 20 109/70 99 01/14/17 08:13 01/14/17 08:13 01/14/17 08:13 01/14/17 08:13 01/14/17 08:13 - Medications Medications: Current Medications Diphenhydramine HCl (Benadryl) 25 mg IVP Q3H PRN PRN Reason: Other Last Admin: 01/14/17 13:32 Dose: 25 mg Hydromorphone HCl (Dilaudid) 2 mg IVP Q3 PRN PRN Reason: Pain, severe (8-10) Last Admin: 01/14/17 13:32 Dose: 2 mg Vancomycin HCl 1,000 mg/ (Sodium Chloride) 250 mls @ 166.6 mls/hr IVPB Q12H [facility] Last Admin: 01/14/17 12:15 Dose: 166.6 mls/hr Cefepime HCl (Maxipime Iv 2 Gm Premix) 2 gm in 100 mls @ 200 mls/hr IVPB Q12H [facility] Stop: 01/17/17 22:01 Last Admin: 01/14/17 10:25 Dose: 200 mls/hr Mesalamine (Delzicol) 800 mg PO TID [facility] Last Admin: 01/14/17 13:32 Dose: 800 mg Mupirocin (Bactroban 2% Nasal) 0.5 gm MEKA BID [facility] Last Admin: 01/14/17 10:23 Dose: 0.5 gm Pantoprazole Sodium (Protonix Inj) 40 mg IVP DAILY [facility] Last Admin: 01/14/17 10:24 Dose: 40 mg Paroxetine HCl (Paxil) 10 mg PO DAILY [facility] Last Admin: 01/14/17 10:24 Dose: 10 mg Prednisone (Prednisone Tab) 20 mg PO DAILY [facility] Last Admin: 01/14/17 10:24 Dose: 20 mg Prednisone (Prednisone Tab) 10 mg PO DAILY [facility] Last Admin: 01/14/17 10:24 Dose: 10 mg Trazodone HCl (Desyrel) 50 mg PO HS [facility] Last Admin: 01/13/17 21:26 Dose: 50 mg - Labs Labs: 01/14/17 07:50 01/14/17 07:50 PT 11.2 SECONDS (9.7-12.2) 12/31/16 11:43 INR 1.0 12/31/16 11:43 APTT 28 SECONDS (21-34) 12/31/16 11:43
--- NOTE | 2017-01-14 14:35 | PN ---
DATE: 01/14/2017 SUBJECTIVE: The patient is feeling well. He does say he is passing blood through the rectum and he is bleeding from below. He does have a colostomy bag and he has food particles in it. He is otherwi se feeling better; however, his white count came high. Maybe it is related to the steroids as the di fferential does not show much of left shift. He is seen by now for his blood work. PHYSICAL EXAMINATION: VITAL SIGNS: T-max is 97.9, pulse 88, blood pressure 109/70, respirations are 20. He has been here since his admission on 12/21 and it is 01/14 today, so 25 days he has been here gettin g treatment with antibiotics. I have placed him on steroids also and he is now, from today, 30 mg vic ly, which may be given for 5 days and then taper to 20 for 5 days and 10 for 5 days and he needs to s ee a fine arts chair and to continue with his Asacol. Since his white count is increasing, I will change the antibiotic to Tygacil for now based on the previous cultures, 100 one dose today and then 50 q. 12. Discontinue vancomycin and cefepime. Repeat the labs tomorrow if they come, but I think the white count is elevated because of steroids. He does have Crohn disease and his white count may be increased because his PICC line is getting clogged. So at this time, I think a good idea would be to get rid of the line soon. I am going to be away until the 26 of January and I want him to make it home. Santosh Daniel MD cc: [id number] TT: 01/14/2017 14:25:05 Confirmation # [id number] Dictation # [id number] [email or web address]
--- NOTE | 2017-01-14 18:17 | CP.PCM.PN ---
Subjective - Date & Time of Evaluation Date of Evaluation: 01/14/17 Time of Evaluation: 10:20 - Subjective Subjective: clinically same Objective - Vital Signs/Intake and Output Vital Signs (last 24 hours): Temp Pulse Resp BP Pulse Ox 98.3 F 99 H 20 110/79 97 01/14/17 15:42 01/14/17 15:42 01/14/17 15:42 01/14/17 15:42 01/14/17 15:42 Intake and Output: 01/14/17 01/14/17 06:59 18:59 Intake Total 680 Balance 680 - Medications Medications: Current Medications Diphenhydramine HCl (Benadryl) 25 mg IVP Q3H PRN PRN Reason: Other Last Admin: 01/14/17 16:34 Dose: 25 mg Hydromorphone HCl (Dilaudid) 2 mg IVP Q3 PRN PRN Reason: Pain, severe (8-10) Last Admin: 01/14/17 16:35 Dose: 2 mg Vancomycin HCl 1,000 mg/ (Sodium Chloride) 250 mls @ 166.6 mls/hr IVPB Q12H [facility] Last Admin: 01/14/17 12:15 Dose: 166.6 mls/hr Mesalamine (Delzicol) 800 mg PO TID [facility] Last Admin: 01/14/17 17:38 Dose: 800 mg Mupirocin (Bactroban 2% Nasal) 0.5 gm MEKA BID [facility] Last Admin: 01/14/17 17:39 Dose: 0.5 gm Pantoprazole Sodium (Protonix Inj) 40 mg IVP DAILY [facility] Last Admin: 01/14/17 10:24 Dose: 40 mg Paroxetine HCl (Paxil) 10 mg PO DAILY [facility] Last Admin: 01/14/17 10:24 Dose: 10 mg Prednisone (Prednisone Tab) 20 mg PO DAILY [facility] Last Admin: 01/14/17 10:24 Dose: 20 mg Prednisone (Prednisone Tab) 10 mg PO DAILY [facility] Last Admin: 01/14/17 10:24 Dose: 10 mg Trazodone HCl (Desyrel) 50 mg PO HS [facility] Last Admin: 01/13/17 21:26 Dose: 50 mg - Labs Labs: 01/14/17 07:50 01/14/17 07:50 PT 11.2 SECONDS (9.7-12.2) 12/31/16 11:43 INR 1.0 12/31/16 11:43 APTT 28 SECONDS (21-34) 12/31/16 11:43 - Constitutional Appears: Well - Head Exam Head Exam: ATRAUMATIC, NORMAL INSPECTION, NORMOCEPHALIC - Eye Exam Eye Exam: EOMI, Normal appearance, PERRL Pupil Exam: NORMAL ACCOMODATION, PERRL - ENT Exam ENT Exam: Mucous Membranes Moist, Normal Exam - Neck Exam Neck Exam: Full ROM, Normal Inspection. absent: Lymphadenopathy - Respiratory Exam Respiratory Exam: Decreased Breath Sounds - Cardiovascular Exam Cardiovascular Exam: REGULAR RHYTHM, +S1, +S2 - GI/Abdominal Exam GI & Abdominal Exam: Soft, Diminished Bowel Sounds - Rectal Exam Rectal Exam: Deferred Assessment and Plan (1) Abdominal pain Status: Acute (2) Abscess Status: Acute (3) Constipation Status: Acute (4) Crohn disease Status: Acute (5) Diarrhea Status: Acute (6) Encounter for wound care Status: Acute (7) Fever Status: Acute (8) Foreign body Status: Acute (9) Intractable abdominal pain Status: Acute (10) Intractable pain Status: Acute (11) Prophylactic measure Status: Acute (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
[2017-01-15] MEDS: DiphenhydrAMINE 50 mg/ml Inj IVP PRN ×7 (01:48→23:06)
[2017-01-15 07:36] LABS: BASO # 0.2 K/uL (0.0-0.2); BASO % 0.9 % (0.0-2.0); EOS # 0.2 K/uL (0.0-0.7); EOS % 1.1 % (0.0-4.0); HEMATOCRIT 27.2 % (35.0-51.0); LYMPH # 5.6 K/uL (1.0-4.3); LYMPH % 26.6 % (20.0-40.0); MEAN CELL VOLUME 61.2 fL (80.0-94.0); MEAN CORPUSCULAR HEMOGLOBIN 18.1 pg (27.0-31.0); MEAN CORPUSCULAR HGB CONC 29.6 g/dL (33.0-37.0); MEAN PLATELET VOLUME 8.8 fL (7.2-11.7); MONO # 1.3 K/uL (0.0-0.8); NRBC % 0.1 % (0.0-2.0)
[2017-01-15 07:45] LABS: CHLORIDE 96 mmol/L (98-107); SODIUM 135 mmol/L (132-148)
[2017-01-15 07:46] LABS: POTASSIUM 3.5 mmol/L (3.6-5.2)
[2017-01-15 07:48] LABS: ALKALINE PHOSPHATASE 94 U/L (38-126); ALT/SGPT 55 U/L (21-72); AST/SGOT 30 U/L (17-59); BILIRUBIN,TOTAL 0.4 mg/dL (0.2-1.3); BLOOD UREA NITROGEN 12 mg/dL (9-20); CALCIUM 8.5 mg/dl (8.6-10.4); CARBON DIOXIDE 31 mmol/L (22-30); GFR AFRICAN-AMERICAN > 60; GLUCOSE,RANDOM 93 mg/dL (75-110)
[2017-01-15] MEDS: Ferric Sodium Gluconat Complex 62.5 mg/5 ml Vial IVPB SCH (09:43)
[2017-01-15] MEDS: Mupirocin 2% Ointment (NASAL) NAS SCH ×2 (09:43→19:20)
[2017-01-15] MEDS: Potassium Chloride 20 mEq ER Tab PO SCH (09:44)
--- NOTE | 2017-01-15 16:14 | CP.PCM.PN ---
Subjective - Date & Time of Evaluation Date of Evaluation: 01/15/17 Time of Evaluation: 09:00 - Subjective Subjective: PGY2 on medicine Dr. Barrett service: Pt seen and examined. Pt complains fast transit time for his colostomy bag as usual. Pt otherwise have no other complaints at the moment. Pt agreed to make appointment with GI after discharge. Pt also agree to finish Prednisone taper and Bactrim as instructed after discharge. Objective - Vital Signs/Intake and Output Vital Signs (last 24 hours): Temp Pulse Resp BP Pulse Ox 99 F 103 H 20 107/74 99 01/15/17 16:02 01/15/17 16:02 01/15/17 16:02 01/15/17 16:02 01/15/17 16:02 - Medications Medications: Current Medications Diphenhydramine HCl (Benadryl) 25 mg IVP Q3H PRN PRN Reason: Other Last Admin: 01/15/17 13:30 Dose: 25 mg Ferric Sodium Gluconate Complex (Ferrlecit) 125 mg IVPB DAILY [facility] Stop: 01/23/17 10:01 Last Admin: 01/15/17 09:43 Dose: 125 mg Hydromorphone HCl (Dilaudid) 2 mg IVP Q3H PRN PRN Reason: severe pain Last Admin: 01/15/17 13:30 Dose: 2 mg Vancomycin HCl 1,000 mg/ (Sodium Chloride) 250 mls @ 166.6 mls/hr IVPB Q12H [facility] Last Admin: 01/15/17 11:30 Dose: 166.6 mls/hr Mesalamine (Delzicol) 800 mg PO TID [facility] Last Admin: 01/15/17 13:30 Dose: 800 mg Mupirocin (Bactroban 2% Nasal) 0.5 gm MEKA BID [facility] Last Admin: 01/15/17 09:43 Dose: 0.5 gm Pantoprazole Sodium (Protonix Inj) 40 mg IVP DAILY [facility] Last Admin: 01/15/17 09:43 Dose: 40 mg Paroxetine HCl (Paxil) 10 mg PO DAILY [facility] Last Admin: 01/15/17 09:44 Dose: 10 mg Potassium Chloride (K-Dur 20 Meq Er Tab) 20 meq PO DAILY [facility] Last Admin: 01/15/17 09:44 Dose: 20 meq Prednisone (Prednisone Tab) 20 mg PO DAILY [facility] Last Admin: 01/15/17 09:44 Dose: 20 mg Prednisone (Prednisone Tab) 10 mg PO DAILY [facility] Last Admin: 01/15/17 09:44 Dose: 10 mg Trazodone HCl (Desyrel) 50 mg PO HS [facility] Last Admin: 01/14/17 22:49 Dose: 50 mg - Labs Labs: 01/15/17 07:22 01/15/17 07:22 PT 11.2 SECONDS (9.7-12.2) 12/31/16 11:43 INR 1.0 12/31/16 11:43 APTT 28 SECONDS (21-34) 12/31/16 11:43 - Constitutional Appears: Non-toxic, No Acute Distress, Chronically Ill - Head Exam Head Exam: NORMOCEPHALIC - Eye Exam Eye Exam: Normal appearance Pupil Exam: NORMAL ACCOMODATION - Respiratory Exam Respiratory Exam: Clear to Ausculation Bilateral, NORMAL BREATHING PATTERN - Cardiovascular Exam Cardiovascular Exam: REGULAR RHYTHM, +S1, +S2. absent: Gallop, Rubs - GI/Abdominal Exam GI & Abdominal Exam: Soft, Normal Bowel Sounds Additional comments: colostomy bag on left abdomen - Neurological Exam Neurological Exam: Alert, Awake, Oriented x3 - Psychiatric Exam Psychiatric exam: Normal Mood - Skin Skin Exam: Intact Assessment and Plan - Assessment and Plan (Free Text) Assessment: Perianal abscess Dr. Daniel consulted, help appreciated- As per Dr. Daniel, patient will need to be on antibiotics until 01/09. Per Dr Daniel may dc on bactrim today. Dr. Taylor consulted, help appreciated. Culture showed MRSA and Citrobacter diversus. Initial blood culture showed coag negative Staph. Repeat blood culture negative. CT showed no new inflammation, surgery intervention at this time. Cefepime 2g IV q12H started on 12/24. Vancomycin 1g IV q12H started on 12/22. Continue Dilaudid 2mg IVP Q3h Continue Benadryl 25mg IVP Q3h Wound care nursing referral Pt can be discharged per Dr. Daniel after repeat CBC. Pt can be discharged with Bactrim DS 1 tab PO BID for 7 more days and Prednisone taper per Dr. Daniel. Axillary pain s/p incision and drainage of abscess, debridement of abscess wall cavity on 01/01, lymph node pathology showed reactive lymph node. Wound care nurse referral. Wound culture MRSA positive on 12/29, repeat culture from [place] negative Vancomycin 1g IV q12H started on 12/22. Cefepime 2g IV q12H started on 12/24. Crohn's colitis Mesalamine 800mg PO TID. Prednisone tapering as per Dr. Daniel. Pt currently takes Humira once every 2 weeks. Outpatient evaluation needed as per Dr. Lopez and Dr. Shukla from previous visits. Pt agreed for outpatient follow up GI soon after discharge. Microcytic Anemia Likely iron deficiency anemia secondary to bleeding due to Crohn's. Hgb stable around 7-8, MCV stable at 61. Heme Dr. Mccallum consulted, help appreciated. Pt instructed to follow up with Dr. Mccallum outpatient as per Dr. Barrett. Pt will be discharged with Ferrous sulfate. Prophylactic measure SCD, Protonix. Management per Dr. Barrett
--- NOTE | 2017-01-15 18:53 | CP.PCM.PN ---
Subjective - Date & Time of Evaluation Date of Evaluation: 01/15/17 Objective - Vital Signs/Intake and Output Vital Signs (last 24 hours): Temp Pulse Resp BP Pulse Ox 99 F 103 H 20 107/74 99 01/15/17 16:02 01/15/17 16:02 01/15/17 16:02 01/15/17 16:02 01/15/17 16:02 - Medications Medications: Current Medications Diphenhydramine HCl (Benadryl) 25 mg IVP Q3H PRN PRN Reason: Other Last Admin: 01/15/17 16:40 Dose: 25 mg Ferric Sodium Gluconate Complex (Ferrlecit) 125 mg IVPB DAILY [facility] Stop: 01/23/17 10:01 Last Admin: 01/15/17 09:43 Dose: 125 mg Hydromorphone HCl (Dilaudid) 2 mg IVP Q3H PRN PRN Reason: severe pain Last Admin: 01/15/17 16:40 Dose: 2 mg Vancomycin HCl 1,000 mg/ (Sodium Chloride) 250 mls @ 166.6 mls/hr IVPB Q12H [facility] Last Admin: 01/15/17 11:30 Dose: 166.6 mls/hr Mesalamine (Delzicol) 800 mg PO TID [facility] Last Admin: 01/15/17 13:30 Dose: 800 mg Mupirocin (Bactroban 2% Nasal) 0.5 gm MEKA BID [facility] Last Admin: 01/15/17 09:43 Dose: 0.5 gm Pantoprazole Sodium (Protonix Inj) 40 mg IVP DAILY [facility] Last Admin: 01/15/17 09:43 Dose: 40 mg Paroxetine HCl (Paxil) 10 mg PO DAILY [facility] Last Admin: 01/15/17 09:44 Dose: 10 mg Potassium Chloride (K-Dur 20 Meq Er Tab) 20 meq PO DAILY [facility] Last Admin: 01/15/17 09:44 Dose: 20 meq Prednisone (Prednisone Tab) 20 mg PO DAILY [facility] Last Admin: 01/15/17 09:44 Dose: 20 mg Prednisone (Prednisone Tab) 10 mg PO DAILY [facility] Last Admin: 01/15/17 09:44 Dose: 10 mg Trazodone HCl (Desyrel) 50 mg PO HS [facility] Last Admin: 01/14/17 22:49 Dose: 50 mg - Labs Labs: 01/15/17 07:22 01/15/17 07:22 PT 11.2 SECONDS (9.7-12.2) 12/31/16 11:43 INR 1.0 12/31/16 11:43 APTT 28 SECONDS (21-34) 12/31/16 11:43 Assessment and Plan (1) Abdominal pain Status: Acute (2) Abscess Status: Acute (3) Constipation Status: Acute (4) Crohn disease Status: Acute (5) Diarrhea Status: Acute (6) Encounter for wound care Status: Acute (7) Fever Status: Acute (8) Foreign body Status: Acute (9) Intractable abdominal pain Status: Acute (10) Intractable pain Status: Acute (11) Prophylactic measure Status: Acute (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
[2017-01-16] MEDS: DiphenhydrAMINE 50 mg/ml Inj IVP PRN ×6 (01:56→20:55)
[2017-01-16 06:57] LABS: BASO # 0.1 K/uL (0.0-0.2); BASO % 0.5 % (0.0-2.0); EOS # 0.3 K/uL (0.0-0.7); EOS % 1.1 % (0.0-4.0); HEMATOCRIT 27.6 % (35.0-51.0); LYMPH # 6.9 K/uL (1.0-4.3); LYMPH % 26.8 % (20.0-40.0); MEAN CELL VOLUME 61.7 fL (80.0-94.0); MEAN CORPUSCULAR HEMOGLOBIN 17.8 pg (27.0-31.0); MEAN CORPUSCULAR HGB CONC 28.9 g/dL (33.0-37.0); MEAN PLATELET VOLUME 7.9 fL (7.2-11.7); MONO % 7.6 % (0.0-10.0); NRBC % 0.1 % (0.0-2.0); WHITE BLOOD COUNT 25.8 K/uL (4.8-10.8)
[2017-01-16 07:32] LABS: CHLORIDE 97 mmol/L (98-107); POTASSIUM 3.6 mmol/L (3.6-5.2); SODIUM 136 mmol/L (132-148)
[2017-01-16 07:33] LABS: ALB/GLOB RATIO 1.1 (1.0-2.1); GLUCOSE,RANDOM 90 mg/dL (75-110)
[2017-01-16 07:34] LABS: GFR AFRICAN-AMERICAN > 60
[2017-01-16 07:35] LABS: ALKALINE PHOSPHATASE 106 U/L (38-126); ALT/SGPT 56 U/L (21-72); AST/SGOT 29 U/L (17-59); BILIRUBIN,TOTAL 0.4 mg/dL (0.2-1.3); BLOOD UREA NITROGEN 10 mg/dL (9-20); CALCIUM 7.8 mg/dl (8.6-10.4); CARBON DIOXIDE 31 mmol/L (22-30)
[2017-01-16] MEDS: Ferric Sodium Gluconat Complex 62.5 mg/5 ml Vial IVPB SCH (09:53)
[2017-01-16] MEDS: Potassium Chloride 20 mEq ER Tab PO SCH (09:53)
[2017-01-16] MEDS: Mupirocin 2% Ointment (NASAL) NAS SCH ×2 (09:54→17:48)
--- NOTE | 2017-01-16 10:15 | CP.PCM.PN ---
Subjective - Date & Time of Evaluation Date of Evaluation: 01/16/17 Time of Evaluation: 07:25 - Subjective Subjective: Medicine Note- Dr. Barrett's service Patient was seen and examined at his bedside. Patient reports that last night, he was coughing a lot and noticed some blood. He also expresses concern that he isnt absorbing his medications because he sees pills in his colostomy. He is also concerned about seeing blood in his colostomy. No events overnight, per nursing. Objective - Vital Signs/Intake and Output Vital Signs (last 24 hours): Temp Pulse Resp BP Pulse Ox 98.1 F 81 20 105/70 99 01/16/17 07:56 01/16/17 07:56 01/16/17 07:56 01/16/17 07:56 01/16/17 07:56 Intake and Output: 01/16/17 01/16/17 06:59 18:59 Intake Total 400 Output Total 800 Balance -400 - Medications Medications: Current Medications Diphenhydramine HCl (Benadryl) 25 mg IVP Q3H PRN PRN Reason: Other Last Admin: 01/16/17 09:56 Dose: 25 mg Ferric Sodium Gluconate Complex (Ferrlecit) 125 mg IVPB DAILY [facility] Stop: 01/23/17 10:01 Last Admin: 01/16/17 09:53 Dose: 125 mg Hydromorphone HCl (Dilaudid) 2 mg IVP Q3H PRN PRN Reason: severe pain Last Admin: 01/16/17 09:54 Dose: 2 mg Vancomycin HCl 1,000 mg/ (Sodium Chloride) 250 mls @ 166.6 mls/hr IVPB Q12H [facility] Last Admin: 01/16/17 10:05 Dose: 166.6 mls/hr Mesalamine (Delzicol) 800 mg PO TID [facility] Last Admin: 01/16/17 09:53 Dose: 800 mg Mupirocin (Bactroban 2% Nasal) 0.5 gm MEKA BID [facility] Last Admin: 01/16/17 09:54 Dose: 0.5 gm Pantoprazole Sodium (Protonix Inj) 40 mg IVP DAILY [facility] Last Admin: 01/16/17 09:54 Dose: 40 mg Paroxetine HCl (Paxil) 10 mg PO DAILY [facility] Last Admin: 01/16/17 09:53 Dose: 10 mg Potassium Chloride (K-Dur 20 Meq Er Tab) 20 meq PO DAILY [facility] Last Admin: 01/16/17 09:53 Dose: 20 meq Prednisone (Prednisone Tab) 20 mg PO DAILY [facility] Last Admin: 01/16/17 09:53 Dose: 20 mg Prednisone (Prednisone Tab) 10 mg PO DAILY [facility] Last Admin: 01/16/17 09:53 Dose: 10 mg Trazodone HCl (Desyrel) 50 mg PO HS [facility] Last Admin: 01/15/17 21:33 Dose: 50 mg - Labs Labs: 01/16/17 06:50 01/16/17 06:50 PT 11.2 SECONDS (9.7-12.2) 12/31/16 11:43 INR 1.0 12/31/16 11:43 APTT 28 SECONDS (21-34) 12/31/16 11:43 - Constitutional Appears: Non-toxic, No Acute Distress - Head Exam Head Exam: ATRAUMATIC, NORMAL INSPECTION, NORMOCEPHALIC - Eye Exam Pupil Exam: NORMAL ACCOMODATION, PERRL - ENT Exam ENT Exam: Mucous Membranes Moist - Respiratory Exam Respiratory Exam: Clear to Ausculation Bilateral, NORMAL BREATHING PATTERN. absent: Rales, Rhonchi, Wheezes - Cardiovascular Exam Cardiovascular Exam: REGULAR RHYTHM, +S1, +S2 - GI/Abdominal Exam GI & Abdominal Exam: Soft, Normal Bowel Sounds. absent: Tenderness, Diminished Bowel Sounds, Hernia, Hypoactive Bowel Sounds Additional comments: colostomy in place - Extremities Exam Extremities Exam: Normal Capillary Refill - Neurological Exam Neurological Exam: Alert, Awake, Oriented x3 - Psychiatric Exam Psychiatric exam: Normal Affect, Normal Mood - Skin Skin Exam: Dry, Intact, Normal Color, Warm Assessment and Plan - Assessment and Plan (Free Text) Assessment: Perianal abscess Dr. Daniel consulted, help appreciated- As per Dr. Daniel, patient will need to be on antibiotics until 01/09. Per Dr Daniel may dc on bactrim today. Dr. Taylor consulted, help appreciated. Culture showed MRSA and Citrobacter diversus. Initial blood culture showed coag negative Staph. Repeat blood culture negative. CT showed no new inflammation, surgery intervention at this time. Cefepime 2g IV q12H started on 12/24. Vancomycin 1g IV q12H started on 12/22. Continue Dilaudid 2mg IVP Q3h Continue Benadryl 25mg IVP Q3h Wound care nursing referral Pt can be discharged per Dr. Daniel after repeat CBC. Pt can be discharged with Bactrim DS 1 tab PO BID for 7 more days and Prednisone taper per Dr. Daniel. Axillary pain s/p incision and drainage of abscess, debridement of abscess wall cavity on 01/01, lymph node pathology showed reactive lymph node. Wound care nurse referral. Wound culture MRSA positive on 12/29, repeat culture from [place] negative Vancomycin 1g IV q12H started on 12/22. Cefepime 2g IV q12H started on 12/24. Crohn's colitis Mesalamine 800mg PO TID. Prednisone tapering as per Dr. Daniel. Pt currently takes Humira once every 2 weeks. Outpatient evaluation needed as per Dr. Loepz and Dr. Shukla from previous visits. Pt agreed for outpatient follow up GI soon after discharge. Microcytic Anemia Likely iron deficiency anemia secondary to bleeding due to Crohn's. Hgb stable around 7-8, MCV stable at 61. Heme Dr. Mccallum consulted, help appreciated. Pt instructed to follow up with Dr. Mccallum outpatient as per Dr. Barrett. Pt will be discharged with Ferrous sulfate. Prophylactic measure SCD, Protonix. Management per Dr. Barrett DC home, as per Dr. Barrett
--- NOTE | 2017-01-16 13:33 | CP.PCM.PN ---
Subjective - Date & Time of Evaluation Date of Evaluation: 01/16/17 Time of Evaluation: 09:20 - Subjective Subjective: clinically same Objective - Vital Signs/Intake and Output Vital Signs (last 24 hours): Temp Pulse Resp BP Pulse Ox 98.1 F 81 20 105/70 99 01/16/17 07:56 01/16/17 07:56 01/16/17 07:56 01/16/17 07:56 01/16/17 07:56 Intake and Output: 01/16/17 01/16/17 06:59 18:59 Intake Total 400 Output Total 800 Balance -400 - Medications Medications: Current Medications Diphenhydramine HCl (Benadryl) 25 mg IVP Q3H PRN PRN Reason: Other Last Admin: 01/16/17 09:56 Dose: 25 mg Ferric Sodium Gluconate Complex (Ferrlecit) 125 mg IVPB DAILY [facility] Stop: 01/23/17 10:01 Last Admin: 01/16/17 09:53 Dose: 125 mg Hydromorphone HCl (Dilaudid) 2 mg IVP Q3H PRN PRN Reason: severe pain Last Admin: 01/16/17 09:54 Dose: 2 mg Vancomycin HCl 1,000 mg/ (Sodium Chloride) 250 mls @ 166.6 mls/hr IVPB Q12H [facility] Last Admin: 01/16/17 10:05 Dose: 166.6 mls/hr Mesalamine (Delzicol) 800 mg PO TID [facility] Last Admin: 01/16/17 09:53 Dose: 800 mg Mupirocin (Bactroban 2% Nasal) 0.5 gm MEKA BID [facility] Last Admin: 01/16/17 09:54 Dose: 0.5 gm Pantoprazole Sodium (Protonix Inj) 40 mg IVP DAILY [facility] Last Admin: 01/16/17 09:54 Dose: 40 mg Paroxetine HCl (Paxil) 10 mg PO DAILY [facility] Last Admin: 01/16/17 09:53 Dose: 10 mg Potassium Chloride (K-Dur 20 Meq Er Tab) 20 meq PO DAILY [facility] Last Admin: 01/16/17 09:53 Dose: 20 meq Prednisone (Prednisone Tab) 20 mg PO DAILY [facility] Last Admin: 01/16/17 09:53 Dose: 20 mg Prednisone (Prednisone Tab) 10 mg PO DAILY [facility] Last Admin: 01/16/17 09:53 Dose: 10 mg Trazodone HCl (Desyrel) 50 mg PO HS [facility] Last Admin: 01/15/17 21:33 Dose: 50 mg - Labs Labs: 01/16/17 06:50 01/16/17 06:50 PT 11.2 SECONDS (9.7-12.2) 12/31/16 11:43 INR 1.0 12/31/16 11:43 APTT 28 SECONDS (21-34) 12/31/16 11:43 - Constitutional Appears: Well - Head Exam Head Exam: ATRAUMATIC, NORMAL INSPECTION, NORMOCEPHALIC - Eye Exam Eye Exam: EOMI, Normal appearance, PERRL Pupil Exam: NORMAL ACCOMODATION, PERRL - ENT Exam ENT Exam: Mucous Membranes Moist, Normal Exam - Neck Exam Neck Exam: Full ROM, Normal Inspection. absent: Lymphadenopathy - Respiratory Exam Respiratory Exam: Decreased Breath Sounds - Cardiovascular Exam Cardiovascular Exam: REGULAR RHYTHM, +S1, +S2 - GI/Abdominal Exam GI & Abdominal Exam: Soft, Diminished Bowel Sounds - Rectal Exam Rectal Exam: Deferred Assessment and Plan (1) Abdominal pain Status: Acute (2) Abscess Status: Acute (3) Constipation Status: Acute (4) Crohn disease Status: Acute (5) Diarrhea Status: Acute (6) Encounter for wound care Status: Acute (7) Fever Status: Acute (8) Foreign body Status: Acute (9) Intractable abdominal pain Status: Acute (10) Intractable pain Status: Acute (11) Prophylactic measure Status: Acute (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
--- NOTE | 2017-01-16 14:50 | PN ---
DATE: 01/16/2017 The patient is still anemic, complaining of abdominal ____ and blood in the stool. Already started o n iron supplement intravenously. Tolerating the IV iron very well. REVIEW OF SYSTEM: Nausea or vomiting. Denies any fever or chills. No dysuria or hematuria. Feelin g weak and tired. PHYSICAL EXAMINATION: GENERAL: The patient is awake and alert, quiet, in moderate distress secondary to pain. VITAL SIGNS: Temperature 98.4, pulse 103, respiration 18, blood pressure 116/75. HEENT: Normocephalic, atraumatic. Eyes: Conjunctivae are pale. Sclerae white. Pupils reacting to light. EARS, NOSE AND THROAT: Within normal limits. LUNGS: Bilaterally good air entry. Clear to auscultation and percussion. HEART: S1, S2, regular. No gallop, no murmur. ABDOMEN: Soft, generalized tenderness. No hepatosplenomegaly. CENTRAL NERVOUS SYSTEM: No gross motor or sensory deficits. LYMPH NODE: No cervical, axillary or inguinal lymph nodes palpable. LABORATORY DATA: WBC 21,200, hemoglobin 8.1, hematocrit 27.7, MCV 62, platelet count 407,000. Serum iron was 17, iron binding capacity 526, iron saturation was 4, ferritin was 4. IMPRESSION: Iron deficiency anemia secondary to the gastrointestinal bleeding and Crohn's disease. Serum B12 level was 233, folate level was 6.7. IMPRESSION: 1. Anemia secondary to iron deficiency and B12 deficiency. 2. Reactive leukocytosis, neutrophilia. 3 Reactive thrombocytosis. PLAN: Start the patient on IV Ferrlecit 125 mg in 100 mL of normal saline over 1 hour daily. Will s tart the patient on B12. Upon discharge, I will follow up the patient in the office. Discussed with the patient briefly. Thank you for letting me participate in the care of this patient. Vinnie Mccallum MD cc: [id number] TT: 01/16/2017 14:06:31 Confirmation # [id number] Dictation # [id number] mn
[2017-01-16] MEDS ORDERED: HYDROmorphone 1 mg/ml ISec IVP SCH (20:39)
[2017-01-17] MEDS: HYDROmorphone 1 mg/ml ISec IVP PRN ×7 (00:50→20:00)
[2017-01-17] MEDS: DiphenhydrAMINE 50 mg/ml Inj IVP PRN ×7 (00:51→20:00)
[2017-01-17 03:16] VITALS: RESP 20
[2017-01-17 08:15] VITALS: O2SAT 97
--- NOTE | 2017-01-17 10:36 | CP.PCM.PN ---
Subjective - Date & Time of Evaluation Date of Evaluation: 01/17/17 Time of Evaluation: 07:00 - Subjective Subjective: clinically same Objective - Vital Signs/Intake and Output Vital Signs (last 24 hours): Temp Pulse Resp BP Pulse Ox 97.7 F 87 20 115/80 97 01/17/17 08:13 01/17/17 08:13 01/17/17 08:13 01/17/17 08:13 01/17/17 08:13 Intake and Output: 01/17/17 01/17/17 06:59 18:59 Intake Total 460 Output Total 750 Balance -290 - Medications Medications: Current Medications Cyanocobalamin (Vitamin B12 1000 Mcg/Ml Inj) 1,000 mcg IM DAILY [facility] Stop: 01/21/17 14:01 Last Admin: 01/16/17 14:46 Dose: 1,000 mcg Diphenhydramine HCl (Benadryl) 25 mg IVP Q3H PRN PRN Reason: Other Last Admin: 01/17/17 07:10 Dose: 25 mg Ferric Sodium Gluconate Complex (Ferrlecit) 125 mg IVPB DAILY [facility] Stop: 01/23/17 10:01 Last Admin: 01/16/17 09:53 Dose: 125 mg Hydromorphone HCl (Dilaudid) 1 mg IVP Q3H PRN PRN Reason: Pain, severe (8-10) Last Admin: 01/17/17 07:10 Dose: 1 mg Vancomycin HCl 1,000 mg/ (Sodium Chloride) 250 mls @ 166.6 mls/hr IVPB Q12H [facility] Last Admin: 01/16/17 22:06 Dose: 166.6 mls/hr Mesalamine (Delzicol) 800 mg PO TID [facility] Last Admin: 01/16/17 18:01 Dose: 800 mg Pantoprazole Sodium (Protonix Inj) 40 mg IVP DAILY [facility] Last Admin: 01/16/17 09:54 Dose: 40 mg Paroxetine HCl (Paxil) 10 mg PO DAILY [facility] Last Admin: 01/16/17 09:53 Dose: 10 mg Potassium Chloride (K-Dur 20 Meq Er Tab) 20 meq PO DAILY [facility] Last Admin: 01/16/17 09:53 Dose: 20 meq Prednisone (Prednisone Tab) 20 mg PO DAILY [facility] Last Admin: 01/16/17 09:53 Dose: 20 mg Prednisone (Prednisone Tab) 10 mg PO DAILY [facility] Last Admin: 01/16/17 09:53 Dose: 10 mg Trazodone HCl (Desyrel) 50 mg PO HS [facility] Last Admin: 01/16/17 22:06 Dose: 50 mg - Labs Labs: 01/16/17 06:50 01/16/17 06:50 PT 11.2 SECONDS (9.7-12.2) 12/31/16 11:43 INR 1.0 12/31/16 11:43 APTT 28 SECONDS (21-34) 12/31/16 11:43 - Constitutional Appears: Well - Head Exam Head Exam: ATRAUMATIC, NORMAL INSPECTION, NORMOCEPHALIC - Eye Exam Eye Exam: EOMI, Normal appearance, PERRL Pupil Exam: NORMAL ACCOMODATION, PERRL - ENT Exam ENT Exam: Mucous Membranes Moist, Normal Exam - Neck Exam Neck Exam: Full ROM, Normal Inspection. absent: Lymphadenopathy - Respiratory Exam Respiratory Exam: Decreased Breath Sounds - Cardiovascular Exam Cardiovascular Exam: REGULAR RHYTHM, +S1, +S2 - GI/Abdominal Exam GI & Abdominal Exam: Soft, Diminished Bowel Sounds - Rectal Exam Rectal Exam: Deferred Assessment and Plan (1) Abdominal pain Status: Acute (2) Abscess Status: Acute (3) Constipation Status: Acute (4) Crohn disease Status: Acute (5) Diarrhea Status: Acute (6) Encounter for wound care Status: Acute (7) Fever Status: Acute (8) Foreign body Status: Acute (9) Intractable abdominal pain Status: Acute (10) Intractable pain Status: Acute (11) Prophylactic measure Status: Acute (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
[2017-01-17] MEDS: Potassium Chloride 20 mEq ER Tab PO SCH (10:51)
[2017-01-17] MEDS: Ferric Sodium Gluconat Complex 62.5 mg/5 ml Vial IVPB SCH (10:51)
[2017-01-17 11:32] LABS: BASO # 0.2 K/uL (0.0-0.2); BASO % 0.9 % (0.0-2.0); EOS # 0.4 K/uL (0.0-0.7); EOS % 1.7 % (0.0-4.0); HEMATOCRIT 27.6 % (35.0-51.0); LYMPH # 7.3 K/uL (1.0-4.3); LYMPH % 28.3 % (20.0-40.0); MEAN CELL VOLUME 62.7 fL (80.0-94.0); MEAN CORPUSCULAR HEMOGLOBIN 18.2 pg (27.0-31.0); MEAN PLATELET VOLUME 8.7 fL (7.2-11.7); MONO # 1.3 K/uL (0.0-0.8); MONO % 5.1 % (0.0-10.0); NRBC % 0.1 % (0.0-2.0); RED CELL DISTRIBUTION WIDTH 17.7 % (11.5-14.5); WHITE BLOOD COUNT 25.8 K/uL (4.8-10.8)
[2017-01-17 11:54] LABS: CHLORIDE 101 mmol/L (98-107)
[2017-01-17 11:55] LABS: POTASSIUM 3.8 mmol/L (3.6-5.2); SODIUM 135 mmol/L (132-148)
[2017-01-17 11:57] LABS: ALKALINE PHOSPHATASE 100 U/L (38-126); ALT/SGPT 50 U/L (21-72); AST/SGOT 29 U/L (17-59); BILIRUBIN,TOTAL 0.6 mg/dL (0.2-1.3); CARBON DIOXIDE 24 mmol/L (22-30); GFR AFRICAN-AMERICAN > 60; GLUCOSE,RANDOM 69 mg/dL (75-110)
[2017-01-17 11:58] LABS: CALCIUM 8.1 mg/dl (8.6-10.4)
[2017-01-17] MEDS: Mupirocin 2% Ointment (NASAL) NAS SCH (12:27)
[2017-01-17 12:41] LABS: BLOOD UREA NITROGEN 7 mg/dL (9-20)
[2017-01-17 12:42] LABS: TOTAL PROTEIN 5.9 g/dL (6.3-8.3)
[2017-01-17 16:26] VITALS: BP 102/60; PULSE 95; TEMP 98
== END 2017-01-17 22:00 | disposition home or self-care (01) | DRG 553 ==
LOC: SUPCPDRO 19:59 → C.ER 19:59 → C.9E 22:48 → C.5T 12-22 06:07 → C.3T 01-16 23:19
PROVIDERS: ADMIT Internal Medicine Nephrology; ATTEND Internal Medicine Nephrology
PROC: 02HV33Z Insertion of Infusion Device into Superior Vena Cava, Percutaneous Approach (ICD-10-PCS; 2016-12-22)
PROC: 02PYX3Z Removal of Infusion Device from Great Vessel, External Approach (ICD-10-PCS; 2016-12-29)
PROC: 02HV33Z Insertion of Infusion Device into Superior Vena Cava, Percutaneous Approach (ICD-10-PCS; 2016-12-29)
PROC: 07B60ZZ Excision of Left Axillary Lymphatic, Open Approach (ICD-10-PCS; 2016-12-31)
PROC: 0X950ZZ Drainage of Left Axilla, Open Approach (ICD-10-PCS; principal; 2016-12-31 16:15)
DX: K50.10 Crohn's disease of large intestine without complications (principal); R78.81 Bacteremia; K61.0 Anal abscess; F32.9 Major depressive disorder, single episode, unspecified; F55.8 Abuse of other non-psychoactive substances; D50.0 Iron deficiency anemia secondary to blood loss (chronic); L03.112 Cellulitis of left axilla; K62.5 Hemorrhage of anus and rectum; L98.419 Non-pressure chronic ulcer of buttock with unspecified severity; R59.9 Enlarged lymph nodes, unspecified; Z93.3 Colostomy status; D47.3 Essential (hemorrhagic) thrombocythemia; S30.810A Abrasion of lower back and pelvis, initial encounter; S30.811A Abrasion of abdominal wall, initial encounter; B95.62 Methicillin resistant Staphylococcus aureus infection as the cause of diseases classified elsewhere; K59.00 Constipation, unspecified

== ENCOUNTER 2017-01-30 16:49 | Inpatient (IN) | payer MEDICAID ==
[2017-01-30 17:09] VITALS: BMI 20.6
[2017-01-30] MEDS ORDERED: DiphenhydrAMINE 50 mg/ml Inj IVP STA (19:25)
[2017-01-30] MEDS ORDERED: HYDROmorphone 1 mg/ml ISec IVP STA (19:25)
[2017-01-30] MEDS ORDERED: Sodium Chloride 0.9% 1,000 ML IV ONE (19:25)
--- NOTE | 2017-01-30 19:29 | C.PDOC ---
History Of Present Illness 21 yr old male presents to the ER with complaints of liquid stool in his colostomy bag for the past 3 days, persistent perineal wound oozing and right jaw pain. Patient states he has been taking his oral narcotics but they have been coming out whole in the colostomy bag. Denies fever, chills, nausea, vomiting, weakness or numbness. Time Seen by Provider: 01/30/17 18:59 Chief Complaint (Nursing): Abnormal Skin Integrity History Per: Patient History/Exam Limitations: no limitations Onset/Duration Of Symptoms: Days, Persistent Past Medical History Reviewed: Historical Data, Nursing Documentation, Vital Signs Vital Signs: Last Vital Signs Temp 100 F H 01/30/17 22:00 Pulse 113 H 01/30/17 22:00 Resp 20 01/30/17 22:00 BP 111/71 01/30/17 22:00 Pulse Ox 100 01/30/17 22:00 - Medical History PMH: Crohn's Disease (COLOSTOMY 2015), Depression - [facility] Procedures DRAINAGE OF BACK SUBCU/FASCIA, OPEN APPROACH (10/21/16) DRAINAGE OF BUTTOCK SKIN, EXTERNAL APPROACH, DIAGNOSTIC (09/23/16) DRAINAGE OF BUTTOCK SUBCU/FASCIA, OPEN APPROACH (10/21/16) DRAINAGE OF LEFT AXILLA, OPEN APPROACH (12/21/16) EXCISION OF BACK SKIN, EXTERNAL APPROACH (09/23/16) EXCISION OF BACK SUBCU/FASCIA, OPEN APPROACH (10/21/16) EXCISION OF BUTTOCK SUBCU/FASCIA, OPEN APPROACH (10/21/16) EXCISION OF LEFT AXILLARY LYMPHATIC, OPEN APPROACH (12/21/16) EXCISION OF PERINEUM SKIN, EXTERNAL APPROACH (09/23/16) EXTRACTION OF BUTTOCK SKIN, EXTERNAL APPROACH (09/23/16) GROUP PSYCHOTHERAPY (11/25/16) INDIVIDUAL PSYCHOTHERAPY, COGNITIVE-BEHAVIORAL (11/25/16) INDIVIDUAL PSYCHOTHERAPY, SUPPORTIVE (11/25/16) INSERTION OF INFUSION DEV INTO SUP VENA CAVA, PERC APPROACH (12/21/16) REMOVAL OF INFUSION DEV FROM GREAT [employer]SEL, FAMILY [employer]ER APPROACH (12/21/16) Family History: States: No Known Family Hx - Social History Hx Alcohol Use: No Hx Substance Use: No - Immunization History Hx Tetanus Toxoid Vaccination: No Hx Influenza Vaccination: No Hx Pneumococcal Vaccination: No Review Of Systems Except As Marked, All Systems Reviewed And Found Negative. (Liquid stool in colostomy bag) Constitutional: Positive for: Other ((+) Right jaw pain ). Negative for: Fever , Chills Gastrointestinal: Positive for: Other ((+) liquid stool in colostomy bag). Negative for: Nausea, Vomiting Skin: Positive for: Other ((+) Perineal wound oozing) Neurological: Negative for: Weakness, Numbness Physical Exam - Physical Exam Appears: Non-toxic, In Acute Distress (Moderate) Skin: Warm, Dry, Other (Mild right side facial swelling and pain. Large perineal wound macerated with foul smelling discharge. ) Head: Atraumatic, Normacephalic Oral Mucosa: Moist Chest: Symmetrical, No Tenderness Cardiovascular: Rhythm Regular, No Murmur Respiratory: Normal Breath Sounds, No Rales, No Rhonchi, No Wheezing Gastrointestinal/Abdominal: Soft, No Tenderness, No Guarding, No Rebound, Other ((+) Loop colostomy bag) Neurological/Psych: Oriented x3, Normal Speech, Normal Motor ED Course And Treatment - Laboratory Results Result Diagrams: 01/30/17 20:56 01/30/17 20:03 Lab Interpretation: Abnormal O2 Sat by Pulse Oximetry: 100 - Radiology CXR: Interpreted by Me CXR Interpretation: Yes: No Acute Disease - Other Rad abd x 2 X-Ray: Interpreted by Me (colostomy LLQ, moderate stool/gas throughout.) Reevaluation Time: 22:00 Reassessment Condition: Improved - Physician Consult Information Outcome Of Conversation: 1914: d/w Dr. Eric Barrett- Medical Decision Making Medical Decision Making: PLAN: * X-Ray - Obstructive Series * CBC * CMP * Urinalysis * Benadryl IVP * Dilaudid IVP * Sodium Chloride IV Disposition Doctor Will See Patient In The: Hospital Counseled Patient/Family Regarding: Studies Performed, Diagnosis - Disposition Disposition: HOSPITALIZED Disposition Time: 21:00 Condition: GOOD - Clinical Impression Clinical Impression: Wound of right buttock, Intractable pain, Diarrhea - Scribe Statement The provider has reviewed the documentation as recorded by the Delroy Mahoney Provider Attestation: All medical record entries made by the Delroy were at my direction and personally dictated by me. I have reviewed the chart and agree that the record accurately reflects my personal performance of the history, physical exam, medical decision making, and the department course for this patient. I have also personally directed, reviewed, and agree with the discharge instructions and disposition.
[2017-01-30] MEDS ORDERED: Sodium Chloride 0.9% 1,000 ML ONE (19:31)
[2017-01-30] MEDS ORDERED: DiphenhydrAMINE 50 mg/ml Inj ONE (19:31)
[2017-01-30] MEDS ORDERED: HYDROmorphone 1 mg/ml ISec ONE (19:32)
[2017-01-30 20:20] LABS: INR 1.1; PROTHROMBIN TIME 12.2 SECONDS (9.7-12.2)
[2017-01-30 20:34] LABS: AST/SGOT 68 U/L (17-59); GFR AFRICAN-AMERICAN > 60; GFR NON-AFRICAN AMERICAN > 60
[2017-01-30 20:35] LABS: ALT/SGPT 27 U/L (21-72); BLOOD UREA NITROGEN 11 mg/dL (9-20); CALCIUM 8.7 mg/dl (8.6-10.4); LIPASE 82 U/L (23-300)
[2017-01-30 21:00] LABS: BASO % 0.3 % (0.0-2.0); EOS # 0.3 K/uL (0.0-0.7); HEMOGLOBIN 8.4 g/dL (12.0-18.0); LYMPH # 3.3 K/uL (1.0-4.3); LYMPH % 24.6 % (20.0-40.0); MEAN CELL VOLUME 68.4 fL (80.0-94.0); MEAN CORPUSCULAR HEMOGLOBIN 20.6 pg (27.0-31.0); MEAN CORPUSCULAR HGB CONC 30.1 g/dL (33.0-37.0); MEAN PLATELET VOLUME 7.6 fL (7.2-11.7); MONO # 0.7 K/uL (0.0-0.8); MONO % 5.6 % (0.0-10.0); NEUT % 67.5 % (50.0-75.0); RBC 4.06 Mil/uL (4.40-5.90); RED CELL DISTRIBUTION WIDTH 27.9 % (11.5-14.5); WHITE BLOOD COUNT 13.3 K/uL (4.8-10.8)
[2017-01-30 21:08] LABS: SQUAMOUS EPITHIAL 4 /hpf (0-5); URINE BACTERIA RARE (<OCC); URINE BILIRUBIN NEGATIVE (NEGATIVE); URINE CLARITY Hazy (Clear); URINE COLOR Yellow (YELLOW); URINE GLUCOSE (UA) NORMAL (Normal); URINE NITRATE NEGATIVE (NEGATIVE); URINE PROTEIN NEGATIVE (NEGATIVE); URINE UROBILINOGEN NORMAL mg/dL (0.2-1.0)
[2017-01-30 21:09] LABS: URINE BLOOD 1+ (NEGATIVE); URINE LEUKOCYTE ESTERASE TRACE Leu/uL (Negative)
--- NOTE | 2017-01-30 21:50 | CP.PCM.HP ---
Past Patient History - Infectious Disease Hx of Infectious Diseases: None - Past Medical History & Family History Past Medical History?: Yes - Past Social History Smoking Status: Never Smoked - CARDIAC Hx Cardiac Disorders: No - PULMONARY Hx Respiratory Disorders: No - NEUROLOGICAL Hx Neurological Disorder: No - HEENT Hx HEENT Problems: No - RENAL Hx Chronic Kidney Disease: No - ENDOCRINE/METABOLIC Hx Endocrine Disorders: No - HEMATOLOGICAL/ONCOLOGICAL Hx Blood Disorders: No - INTEGUMENTARY Hx Dermatological Problems: Yes Other/Comment: Perineal wound. Rectal abcess - MUSCULOSKELETAL/RHEUMATOLOGICAL Hx Musculoskeletal Disorders: No Hx Falls: No - GASTROINTESTINAL Hx Crohn's Disease: Yes (COLOSTOMY 2016) - GENITOURINARY/GYNECOLOGICAL Hx Genitourinary Disorders: No - PSYCHIATRIC Hx Depression: Yes Hx Substance Use: No - SURGICAL HISTORY Hx Surgeries: Yes (SEE COMMENT) Other/Comment: LOOP COLOSTOMY. Perineal wound. Right upper arm PICC line. COLON RESECTION - ANESTHESIA Hx Anesthesia: Yes Hx Anesthesia Reactions: No Hx Malignant Hyperthermia: No Meds Allergies/Adverse Reactions: Allergies Allergy/AdvReac Type Severity Reaction Status Date / Time morphine Allergy ITCHING Verified 01/30/17 17:09 Results - Vital Signs Recent Vital Signs: Last Vital Signs Temp 99.3 F 01/30/17 17:09 Pulse 108 H 01/30/17 17:09 Resp 20 01/30/17 17:09 BP 111/62 01/30/17 17:09 Pulse Ox 100 01/30/17 19:34 - Labs Result Diagrams: 01/30/17 20:56 01/30/17 20:03 Labs: Laboratory Results - last 24 hr 01/30/17 01/30/17 01/30/17 20:03 20:03 20:56 WBC RBC Hgb Hct MCV MCH MCHC RDW Plt Count MPV Neut % (Auto) Lymph % (Auto) [place] % (Auto) Eos % (Auto) Baso % (Auto) Neut # Lymph # [place] # Eos # Baso # PT 12.2 INR 1.1 APTT 22 Sodium 138 Potassium 5.2 Chloride 106 Carbon Dioxide 22 Anion Gap 16 BUN 11 Creatinine 0.7 L Est GFR ( Amer) > 60 Est GFR (Non-Af Amer) > 60 Random Glucose 77 Calcium 8.7 Total Bilirubin 0.9 AST 68 H D ALT 27 Alkaline Phosphatase 122 Total Protein 7.8 Albumin 4.0 Globulin 3.8 Albumin/Globulin Ratio 1.0 Lipase 82 Urine Color Yellow Urine Clarity Hazy Urine pH 5.0 Ur Specific [place] 1.019 Urine Protein Negative Urine Glucose (UA) Normal Urine Ketones Negative Urine Blood 1+ H Urine Nitrate Negative Urine Bilirubin Negative Urine Urobilinogen Normal Ur Leukocyte Esterase Trace H Urine WBC (Auto) 5 Urine RBC (Auto) 9 H Ur Squamous Epith Cells 4 Urine Bacteria Rare 01/30/17 20:56 WBC 13.3 H RBC 4.06 L Hgb 8.4 L Hct 27.8 L MCV 68.4 L D MCH 20.6 L MCHC 30.1 L RDW 27.9 H Plt Count 588 H D MPV 7.6 Neut % (Auto) 67.5 Lymph % (Auto) 24.6 [place] % (Auto) 5.6 Eos % (Auto) 2.0 Baso % (Auto) 0.3 Neut # 9.0 H Lymph # 3.3 [place] # 0.7 Eos # 0.3 Baso # 0.0 PT INR APTT Sodium Potassium Chloride Carbon Dioxide Anion Gap BUN Creatinine Est GFR ( Amer) Est GFR (Non-Af Amer) Random Glucose Calcium Total Bilirubin AST ALT Alkaline Phosphatase Total Protein Albumin Globulin Albumin/Globulin Ratio Lipase Urine Color Urine Clarity Urine pH Ur Specific [place] Urine Protein Urine Glucose (UA) Urine Ketones Urine Blood Urine Nitrate Urine Bilirubin Urine Urobilinogen Ur Leukocyte Esterase Urine WBC (Auto) Urine RBC (Auto) Ur Squamous Epith Cells Urine Bacteria
[2017-01-30] MEDS: Tmp-Smz 800 mg-160 mg DS Tab PO SCH (22:20)
[2017-01-30] MEDS ORDERED: HYDROmorphone 1 mg/ml ISec IVP PRN (22:44)
--- NOTE | 2017-01-31 08:10 | CP.PCM.CON ---
<Venkat Teran - Last Filed: 01/31/17 08:34> History of Present Illness - History of Present Illness History of Present Illness: Gen Sx: Dr Taylor Pt is a 22 y.o M w/ PMHx of Crohn's disease and recurrent abscesses. Pt reports after last d/c from he was admitted to [facility] for tx of Crohn' s. Pt reports they found abscess in groin, drained it, and d/kasi him after one week. Pt reports abscess worsened in week since discharge from [facility] w/ increased discharge of blood and puss. Pt further reports concurrent non-healing ulcer on right buttock. Pt also suspects he has ulcer in right base of neck. Pt states he is in pain 8/10 that is not relieved with his percocet home medication. Claims the percocet are coming out whole into his ostomy bag. Patient admits to fever, weight loss of 30lbs over past few months, headache, diarrhea, bloody emesis, intermittent SOB w/ exertion, epigastric pain , fatigue, and dry skin. PMHx - see above PSHx - colon resection, colostomy, multiple I&D Allergies - Morphine Social - denies drug use, alcohol use, tobacco use Review of Systems - Constitutional Constitutional: Fever, Weight Loss. absent: Chills, Weight Gain - EENT Eyes: absent: Change in Vision Ears: Ear Pain Nose/Mouth/Throat: Neck Pain - Cardiovascular Cardiovascular: absent: Chest Pain, Palpitations - Respiratory Respiratory: Dyspnea on Exertion. absent: Cough, Chest Congestion - Gastrointestinal Gastrointestinal: Diarrhea, Vomiting (bloody). absent: Constipation, Nausea - Genitourinary Genitourinary: absent: Dysuria, Urinary Frequency - Musculoskeletal Musculoskeletal: Neck Pain. absent: Joint Swelling - Integumentary Integumentary: Dry Skin, Sores. absent: Rash - Neurological Neurological: Weakness. absent: Dizziness - Endocrine Endocrine: absent: Excessive Sweating, Palpitations Past Patient History - Infectious Disease Hx of Infectious Diseases: None - Past Medical History & Family History Past Medical History?: Yes - Past Social History Smoking Status: Never Smoked - CARDIAC Hx Cardiac Disorders: No - PULMONARY Hx Respiratory Disorders: No - NEUROLOGICAL Hx Neurological Disorder: No - HEENT Hx HEENT Problems: No - RENAL Hx Chronic Kidney Disease: No - ENDOCRINE/METABOLIC Hx Endocrine Disorders: No - HEMATOLOGICAL/ONCOLOGICAL Hx Blood Disorders: No - INTEGUMENTARY Hx Dermatological Problems: Yes Other/Comment: Perineal wound. Rectal abcess - MUSCULOSKELETAL/RHEUMATOLOGICAL Hx Falls: No - GASTROINTESTINAL Hx Crohn's Disease: Yes (COLOSTOMY 2016) - GENITOURINARY/GYNECOLOGICAL Hx Genitourinary Disorders: No - PSYCHIATRIC Hx Depression: Yes Hx Substance Use: No - SURGICAL HISTORY Hx Surgeries: Yes (SEE COMMENT) Other/Comment: LOOP COLOSTOMY. Perineal wound. Right upper arm PICC line. COLON RESECTION - ANESTHESIA Hx Anesthesia: Yes Hx Anesthesia Reactions: No Hx Malignant Hyperthermia: No Meds Allergies/Adverse Reactions: Allergies Allergy/AdvReac Type Severity Reaction Status Date / Time morphine Allergy ITCHING Verified 01/30/17 17:09 - Medications Medications: Current Medications Diphenhydramine HCl (Benadryl) 25 mg PO BID [facility] Ferrous Sulfate (Feosol) 325 mg PO BID [facility] Hydromorphone HCl (Dilaudid) 2 mg IVP Q4H PRN PRN Reason: Pain, moderate (4-7) Last Admin: 01/31/17 03:56 Dose: 2 mg Mesalamine (Delzicol) 800 mg PO DAILY [facility] Methylprednisolone (Medrol) 4 mg PO DAILY [facility] Pantoprazole Sodium (Protonix Ec Tab) 40 mg PO DAILY [facility] Trimethoprim/Sulfamethoxazole (Bactrim Ds Tab) 1 tab PO Q12H [facility] Last Admin: 01/30/17 22:20 Dose: 1 tab Physical Exam - Constitutional Appears: Well, Non-toxic - Head Exam Head Exam: ATRAUMATIC, NORMAL INSPECTION, NORMOCEPHALIC - Eye Exam Eye Exam: Normal appearance - ENT Exam ENT Exam: Normal Exam - Neck Exam Neck exam: Positive for: Tenderness - Respiratory Exam Respiratory Exam: NORMAL BREATHING PATTERN - Cardiovascular Exam Cardiovascular Exam: REGULAR RHYTHM, +S1, +S2 - GI/Abdominal Exam GI & Abdominal Exam: Soft. absent: Distended - Exam External exam: Erythema, Lesions (Purulent, erythematous draining ulcer at base of scrotum, draining purulent ulcer at gluteal cleft) - Extremities Exam Extremities exam: Negative for: calf tenderness - Neurological Exam Neurological exam: Alert, Oriented x3 - Psychiatric Exam Psychiatric exam: Normal Affect, Normal Mood - Skin Skin Exam: Dry Results - Vital Signs Recent Vital Signs: Last Vital Signs Temp 99.3 F 01/31/17 00:00 Pulse 103 H 01/31/17 00:00 Resp 20 01/31/17 00:00 BP 98/60 L 01/31/17 00:00 Pulse Ox 100 01/31/17 00:52 - Labs Result Diagrams: 01/30/17 20:56 01/30/17 20:03 Labs: Laboratory Results - last 24 hr 01/30/17 01/30/17 01/30/17 20:03 20:03 20:56 WBC RBC Hgb Hct MCV MCH MCHC RDW Plt Count MPV Neut % (Auto) Lymph % (Auto) [place] % (Auto) Eos % (Auto) Baso % (Auto) Neut # Lymph # [place] # Eos # Baso # PT 12.2 INR 1.1 APTT 22 Sodium 138 Potassium 5.2 Chloride 106 Carbon Dioxide 22 Anion Gap 16 BUN 11 Creatinine 0.7 L Est GFR ( Amer) > 60 Est GFR (Non-Af Amer) > 60 Random Glucose 77 Calcium 8.7 Total Bilirubin 0.9 AST 68 H D ALT 27 Alkaline Phosphatase 122 Total Protein 7.8 Albumin 4.0 Globulin 3.8 Albumin/Globulin Ratio 1.0 Lipase 82 Urine Color Yellow Urine Clarity Hazy Urine pH 5.0 Ur Specific [place] 1.019 Urine Protein Negative Urine Glucose (UA) Normal Urine Ketones Negative Urine Blood 1+ H Urine Nitrate Negative Urine Bilirubin Negative Urine Urobilinogen Normal Ur Leukocyte Esterase Trace H Urine WBC (Auto) 5 Urine RBC (Auto) 9 H Ur Squamous Epith Cells 4 Urine Bacteria Rare 01/30/17 20:56 WBC 13.3 H RBC 4.06 L Hgb 8.4 L Hct 27.8 L MCV 68.4 L D MCH 20.6 L MCHC 30.1 L RDW 27.9 H Plt Count 588 H D MPV 7.6 Neut % (Auto) 67.5 Lymph % (Auto) 24.6 [place] % (Auto) 5.6 Eos % (Auto) 2.0 Baso % (Auto) 0.3 Neut # 9.0 H Lymph # 3.3 Dare # 0.7 Eos # 0.3 Baso # 0.0 PT INR APTT Sodium Potassium Chloride Carbon Dioxide Anion Gap BUN Creatinine Est GFR ( Amer) Est GFR (Non-Af Amer) Random Glucose Calcium Total Bilirubin AST ALT Alkaline Phosphatase Total Protein Albumin Globulin Albumin/Globulin Ratio Lipase Urine Color Urine Clarity Urine pH Ur Specific [place] Urine Protein Urine Glucose (UA) Urine Ketones Urine Blood Urine Nitrate Urine Bilirubin Urine Urobilinogen Ur Leukocyte Esterase Urine WBC (Auto) Urine RBC (Auto) Ur Squamous Epith Cells Urine Bacteria Assessment & Plan - Assessment and Plan (Free Text) Assessment: 21 yo M w/ draining abscesses in gluteal cleft and perineum near base of scrotum Plan: Currently abscess are both draining, so no I&D needed at this time Local wound care Abx as per ID Recommend GI consult will cont to follow will discuss with Dr Claudia Teran, DO, PGY2 - Date & Time Date: 01/31/17 Time: 08:37 <Temo Taylor - Last Filed: 02/03/17 16:22> Meds - Medications Medications: Current Medications Diphenhydramine HCl (Benadryl) 25 mg IVP Q3 PRN PRN Reason: Itching / Pruritus Last Admin: 02/03/17 13:55 Dose: 25 mg Enoxaparin Sodium (Lovenox) 60 mg SC Q12 [facility] Last Admin: 02/03/17 09:39 Dose: 60 mg Ferrous Sulfate (Feosol) 325 mg PO BID [facility] Last Admin: 02/03/17 09:40 Dose: 325 mg Hydromorphone HCl (Dilaudid) 2 mg IVP Q3H PRN PRN Reason: Pain, moderate (4-7) Last Admin: 02/03/17 13:57 Dose: 2 mg Vancomycin/Sodium Chloride (Vancocin) 1 gm in 200 mls @ 129.032 mls/hr IVPB Q12H [facility] Stop: 02/05/17 17:01 Last Admin: 02/03/17 05:30 Dose: 129.032 mls/hr Imipenem/Cilastatin Sodium 500 (mg/ Sodium Chloride) 100 mls @ 100 mls/hr IVPB Q6H [facility] Last Admin: 02/03/17 16:15 Dose: 100 mls/hr Mesalamine (Delzicol) 800 mg PO TID [facility] Last Admin: 02/03/17 13:54 Dose: 800 mg Methylprednisolone (Medrol) 3 mg PO DAILY [facility] Pantoprazole Sodium (Protonix Ec Tab) 40 mg PO DAILY [facility] Last Admin: 02/03/17 09:40 Dose: 40 mg Results - Vital Signs Recent Vital Signs: Last Vital Signs Temp 98.9 F 02/03/17 09:29 Pulse 89 02/03/17 09:29 Resp 20 02/03/17 09:29 BP 103/70 02/03/17 09:29 Pulse Ox 98 02/03/17 09:29 - Labs Result Diagrams: 02/02/17 16:50 02/02/17 16:50 Labs: Laboratory Results - last 24 hr 02/02/17 02/02/17 02/02/17 16:50 16:50 16:50 WBC 9.0 RBC 4.10 L Hgb 8.5 L Hct 28.6 L MCV 69.8 L MCH 20.7 L MCHC 29.6 L RDW 26.5 H Plt Count 590 H MPV 7.8 Neut % (Auto) 79.4 H Lymph % (Auto) 14.7 L [place] % (Auto) 3.4 Eos % (Auto) 1.8 Baso % (Auto) 0.7 Neut # 7.2 H Lymph # 1.3 Dare # 0.3 Eos # 0.2 Baso # 0.1 PT 12.2 INR 1.1 APTT 31 D Sodium 137 Potassium 3.9 Chloride 102 Carbon Dioxide 23 Anion Gap 15 BUN 8 L Creatinine 0.7 L Est GFR ( Amer) > 60 Est GFR (Non-Af Amer) > 60 Random Glucose 110 Calcium 8.4 L Stool Occult Blood 02/03/17 14:37 WBC RBC Hgb Hct MCV MCH MCHC RDW Plt Count MPV Neut % (Auto) Lymph % (Auto) [place] % (Auto) Eos % (Auto) Baso % (Auto) Neut # Lymph # [place] # Eos # Baso # PT INR APTT Sodium Potassium Chloride Carbon Dioxide Anion Gap BUN Creatinine Est GFR ( Amer) Est GFR (Non-Af Amer) Random Glucose Calcium Stool Occult Blood Negative Attending/Attestation - Attestation I have personally seen and examined this patient.: Yes I have fully participated in the care of the patient.: Yes I have reviewed all pertinent clinical information: Yes Notes (Text): 02/03/17 16:18 Pt was seen and examined at bedside on 02/02/17 Agree with above note and assessment. 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
--- NOTE | 2017-01-31 09:16 | RAD ---
Abdomen four views History: Abdominal pain. Comparison: None. Findings: Lung damon are clear. Heart size within limits. Ostomy seen within the left lower quadrant of the abdomen. Moderate fecal retention within the visualized colon. No evidence of gross obstruction. Impression: Fecal retention in the colon. Ostomy in place.
[2017-01-31] MEDS ORDERED: Enoxaparin 40 mg Syringe SC SCH (10:00)
[2017-01-31] MEDS: Tmp-Smz 800 mg-160 mg DS Tab PO SCH ×2 (10:25→21:11)
[2017-01-31] MEDS: Enoxaparin 40 mg Syringe SC SCH (10:25)
[2017-01-31] MEDS: Pantoprazole 40 mg EC Tab PO SCH (10:25)
--- NOTE | 2017-01-31 12:41 | CP.PCM.PN ---
Subjective - Date & Time of Evaluation Date of Evaluation: 01/31/17 Time of Evaluation: 09:40 - Subjective Subjective: clinically same Objective - Vital Signs/Intake and Output Vital Signs (last 24 hours): Temp Pulse Resp BP Pulse Ox 99.2 F 105 H 20 103/66 98 01/31/17 08:36 01/31/17 08:36 01/31/17 08:36 01/31/17 08:36 01/31/17 08:36 Intake and Output: 01/31/17 01/31/17 06:59 18:59 Intake Total 400 Output Total 100 Balance 300 - Medications Medications: Current Medications Diphenhydramine HCl (Benadryl) 25 mg PO BID [facility] Last Admin: 01/31/17 10:25 Dose: 25 mg Enoxaparin Sodium (Lovenox) 40 mg SC DAILY [facility] Last Admin: 01/31/17 10:25 Dose: 40 mg Ferrous Sulfate (Feosol) 325 mg PO BID [facility] Last Admin: 01/31/17 10:25 Dose: 325 mg Hydromorphone HCl (Dilaudid) 2 mg IVP Q4H PRN PRN Reason: Pain, moderate (4-7) Last Admin: 01/31/17 08:38 Dose: 2 mg Mesalamine (Delzicol) 800 mg PO DAILY [facility] Last Admin: 01/31/17 10:25 Dose: 800 mg Methylprednisolone (Medrol) 4 mg PO DAILY [facility] Last Admin: 01/31/17 10:25 Dose: 4 mg Pantoprazole Sodium (Protonix Ec Tab) 40 mg PO DAILY [facility] Last Admin: 01/31/17 10:25 Dose: 40 mg Trimethoprim/Sulfamethoxazole (Bactrim Ds Tab) 1 tab PO Q12H [facility] Last Admin: 01/31/17 10:25 Dose: 1 tab - Labs Labs: 01/30/17 20:56 01/30/17 20:03 PT 12.2 SECONDS (9.7-12.2) 01/30/17 20:03 INR 1.1 01/30/17 20:03 APTT 22 SECONDS (21-34) 01/30/17 20:03 - Constitutional Appears: Well - Head Exam Head Exam: ATRAUMATIC, NORMAL INSPECTION, NORMOCEPHALIC - Eye Exam Eye Exam: EOMI, Normal appearance, PERRL Pupil Exam: NORMAL ACCOMODATION, PERRL - ENT Exam ENT Exam: Mucous Membranes Moist, Normal Exam - Neck Exam Neck Exam: Full ROM, Normal Inspection. absent: Lymphadenopathy - Respiratory Exam Respiratory Exam: Decreased Breath Sounds - Cardiovascular Exam Cardiovascular Exam: REGULAR RHYTHM, +S1, +S2 - GI/Abdominal Exam GI & Abdominal Exam: Soft, Diminished Bowel Sounds - Rectal Exam Rectal Exam: Deferred Assessment and Plan - Assessment and Plan (Free Text) Plan: plan:- * ID consult * Surgery consult for abscess * psychiatry consult * perineal wound care * IV ABX * Sepsis workup
--- NOTE | 2017-01-31 15:21 | CP.PCM.CON ---
History of Present Illness - History of Present Illness History of Present Illness: dictated Past Patient History - Infectious Disease Hx of Infectious Diseases: None - Past Medical History & Family History Past Medical History?: Yes - Past Social History Smoking Status: Never Smoked - CARDIAC Hx Cardiac Disorders: No - PULMONARY Hx Respiratory Disorders: No - NEUROLOGICAL Hx Neurological Disorder: No - HEENT Hx HEENT Problems: No - RENAL Hx Chronic Kidney Disease: No - ENDOCRINE/METABOLIC Hx Endocrine Disorders: No - HEMATOLOGICAL/ONCOLOGICAL Hx Blood Disorders: No - INTEGUMENTARY Hx Dermatological Problems: Yes Other/Comment: Perineal wound. Rectal abcess - MUSCULOSKELETAL/RHEUMATOLOGICAL Hx Falls: No - GASTROINTESTINAL Hx Crohn's Disease: Yes (COLOSTOMY 2016) - GENITOURINARY/GYNECOLOGICAL Hx Genitourinary Disorders: No - PSYCHIATRIC Hx Depression: Yes Hx Substance Use: No - SURGICAL HISTORY Hx Surgeries: Yes (SEE COMMENT) Other/Comment: LOOP COLOSTOMY. Perineal wound. Right upper arm PICC line. COLON RESECTION - ANESTHESIA Hx Anesthesia: Yes Hx Anesthesia Reactions: No Hx Malignant Hyperthermia: No Meds Allergies/Adverse Reactions: Allergies Allergy/AdvReac Type Severity Reaction Status Date / Time morphine Allergy ITCHING Verified 01/30/17 17:09 - Medications Medications: Current Medications Diphenhydramine HCl (Benadryl) 25 mg PO BID [facility] Last Admin: 01/31/17 10:25 Dose: 25 mg Enoxaparin Sodium (Lovenox) 40 mg SC DAILY [facility] Last Admin: 01/31/17 10:25 Dose: 40 mg Ferrous Sulfate (Feosol) 325 mg PO BID [facility] Last Admin: 01/31/17 10:25 Dose: 325 mg Hydromorphone HCl (Dilaudid) 2 mg IVP Q3H PRN PRN Reason: Pain, moderate (4-7) Vancomycin HCl 1 gm/ Sodium (Chloride) 250 mls @ 166.7 mls/hr IVPB Q12H [facility] Mesalamine (Delzicol) 800 mg PO DAILY [facility] Last Admin: 01/31/17 10:25 Dose: 800 mg Methylprednisolone (Medrol) 4 mg PO DAILY [facility] Last Admin: 01/31/17 10:25 Dose: 4 mg Pantoprazole Sodium (Protonix Ec Tab) 40 mg PO DAILY [facility] Last Admin: 01/31/17 10:25 Dose: 40 mg Trimethoprim/Sulfamethoxazole (Bactrim Ds Tab) 1 tab PO Q12H [facility] Last Admin: 01/31/17 10:25 Dose: 1 tab Results - Vital Signs Recent Vital Signs: Last Vital Signs Temp 99.2 F 01/31/17 08:36 Pulse 105 H 01/31/17 08:36 Resp 20 01/31/17 08:36 BP 103/66 01/31/17 08:36 Pulse Ox 98 01/31/17 08:36 - Labs Result Diagrams: 01/30/17 20:56 01/30/17 20:03 Labs: Laboratory Results - last 24 hr 01/30/17 01/30/17 01/30/17 20:03 20:03 20:56 WBC RBC Hgb Hct MCV MCH MCHC RDW Plt Count MPV Neut % (Auto) Lymph % (Auto) [place] % (Auto) Eos % (Auto) Baso % (Auto) Neut # Lymph # [place] # Eos # Baso # PT 12.2 INR 1.1 APTT 22 Sodium 138 Potassium 5.2 Chloride 106 Carbon Dioxide 22 Anion Gap 16 BUN 11 Creatinine 0.7 L Est GFR ( Amer) > 60 Est GFR (Non-Af Amer) > 60 Random Glucose 77 Calcium 8.7 Total Bilirubin 0.9 AST 68 H D ALT 27 Alkaline Phosphatase 122 Total Protein 7.8 Albumin 4.0 Globulin 3.8 Albumin/Globulin Ratio 1.0 Lipase 82 Urine Color Yellow Urine Clarity Hazy Urine pH 5.0 Ur Specific [place] 1.019 Urine Protein Negative Urine Glucose (UA) Normal Urine Ketones Negative Urine Blood 1+ H Urine Nitrate Negative Urine Bilirubin Negative Urine Urobilinogen Normal Ur Leukocyte Esterase Trace H Urine WBC (Auto) 5 Urine RBC (Auto) 9 H Ur Squamous Epith Cells 4 Urine Bacteria Rare 01/30/17 20:56 WBC 13.3 H RBC 4.06 L Hgb 8.4 L Hct 27.8 L MCV 68.4 L D MCH 20.6 L MCHC 30.1 L RDW 27.9 H Plt Count 588 H D MPV 7.6 Neut % (Auto) 67.5 Lymph % (Auto) 24.6 [place] % (Auto) 5.6 Eos % (Auto) 2.0 Baso % (Auto) 0.3 Neut # 9.0 H Lymph # 3.3 [place] # 0.7 Eos # 0.3 Baso # 0.0 PT INR APTT Sodium Potassium Chloride Carbon Dioxide Anion Gap BUN Creatinine Est GFR ( Amer) Est GFR (Non-Af Amer) Random Glucose Calcium Total Bilirubin AST ALT Alkaline Phosphatase Total Protein Albumin Globulin Albumin/Globulin Ratio Lipase Urine Color Urine Clarity Urine pH Ur Specific [place] Urine Protein Urine Glucose (UA) Urine Ketones Urine Blood Urine Nitrate Urine Bilirubin Urine Urobilinogen Ur Leukocyte Esterase Urine WBC (Auto) Urine RBC (Auto) Ur Squamous Epith Cells Urine Bacteria
[2017-01-31] MEDS ORDERED: Vancomycin 1 gm/NS 200 ml 1 GM/200 ML BAG IVPB SCH (15:30)
[2017-01-31] MEDS: Vancomycin 1 gm/NS 200 ml 1 GM/200 ML BAG IVPB SCH (17:17)
[2017-01-31] MEDS ORDERED: DiphenhydrAMINE 50 mg/ml Inj IVP SCH (22:00)
[2017-02-01] MEDS: DiphenhydrAMINE 50 mg/ml Inj IVP PRN ×8 (00:14→22:31)
[2017-02-01] MEDS: Vancomycin 1 gm/NS 200 ml 1 GM/200 ML BAG IVPB SCH ×2 (05:24→17:24)
--- NOTE | 2017-02-01 09:38 | CP.PCM.PN ---
<Edward Padilla - Last Filed: 02/01/17 12:36> Subjective - Date & Time of Evaluation Date of Evaluation: 02/01/17 Time of Evaluation: 09:31 - Subjective Subjective: Surgery progress note: Dr. Taylor Pt seen and examined at bedside. He complains of sharp right neck pain, and groin pain due to his abscesses. He has no complaints otherwise. Denies fever/ chills/chest pain. Objective - Vital Signs/Intake and Output Vital Signs (last 24 hours): Temp Pulse Resp BP Pulse Ox 98.9 F 99 H 20 97/67 L 98 02/01/17 08:33 02/01/17 08:33 02/01/17 08:33 02/01/17 08:33 02/01/17 08:33 - Medications Medications: Current Medications Diphenhydramine HCl (Benadryl) 25 mg PO BID [facility] Last Admin: 01/31/17 17:46 Dose: 25 mg Diphenhydramine HCl (Benadryl) 25 mg IVP Q3 PRN PRN Reason: Itching / Pruritus Last Admin: 02/01/17 09:23 Dose: 25 mg Enoxaparin Sodium (Lovenox) 40 mg SC DAILY [facility] Last Admin: 01/31/17 10:25 Dose: 40 mg Ferrous Sulfate (Feosol) 325 mg PO BID [facility] Last Admin: 01/31/17 17:46 Dose: 325 mg Hydromorphone HCl (Dilaudid) 2 mg IVP Q3H PRN PRN Reason: Pain, moderate (4-7) Last Admin: 02/01/17 09:20 Dose: 2 mg Vancomycin/Sodium Chloride (Vancocin) 1 gm in 200 mls @ 129.032 mls/hr IVPB Q12H [facility] Stop: 02/05/17 17:01 Last Admin: 02/01/17 05:24 Dose: 129.032 mls/hr Mesalamine (Delzicol) 800 mg PO TID [facility] Methylprednisolone (Medrol) 4 mg PO DAILY [facility] Last Admin: 01/31/17 10:25 Dose: 4 mg Pantoprazole Sodium (Protonix Ec Tab) 40 mg PO DAILY [facility] Last Admin: 01/31/17 10:25 Dose: 40 mg Trimethoprim/Sulfamethoxazole (Bactrim Ds Tab) 1 tab PO Q12H [facility] Last Admin: 01/31/17 21:11 Dose: 1 tab - Labs Labs: 01/30/17 20:56 01/30/17 20:03 PT 12.2 SECONDS (9.7-12.2) 01/30/17 20:03 INR 1.1 01/30/17 20:03 APTT 22 SECONDS (21-34) 01/30/17 20:03 - Constitutional Appears: No Acute Distress - Head Exam Head Exam: NORMAL INSPECTION, NORMOCEPHALIC - Neck Exam Neck Exam: Tenderness Additional comments: right neck tenderness - Respiratory Exam Respiratory Exam: Decreased Breath Sounds. absent: Accessory Muscle Use, Respiratory Distress - Cardiovascular Exam Cardiovascular Exam: REGULAR RHYTHM - GI/Abdominal Exam GI & Abdominal Exam: Soft. absent: Distended, Tenderness Additional comments: colostomy bag inplace - Exam External exam: Erythema, Swelling (Erythema, Lesions (Purulent, erythematous draining ulcer at base of scrotum, draining purulent ulcer at gluteal cleft)) - Skin Skin Exam: Normal Color, Warm Assessment and Plan - Assessment and Plan (Free Text) Assessment: 21 yo M w/ PMH of Crohn's disease with draining abscesses in gluteal cleft and perineum near base of scrotum Plan: Currently abscesses are both draining, so no I&D needed at this time Local wound care Abx as per ID will cont to follow will discuss with Dr Claudia Padilla DO, PGY1 <Temo Taylor - Last Filed: 02/03/17 16:24> Objective - Vital Signs/Intake and Output Vital Signs (last 24 hours): Temp Pulse Resp BP Pulse Ox 98.9 F 89 20 103/70 98 02/03/17 09:29 02/03/17 09:29 02/03/17 09:29 02/03/17 09:29 02/03/17 09:29 Intake and Output: 02/03/17 02/03/17 06:59 18:59 Intake Total 1680 Output Total 1050 Balance 630 - Medications Medications: Current Medications Diphenhydramine HCl (Benadryl) 25 mg IVP Q3 PRN PRN Reason: Itching / Pruritus Last Admin: 02/03/17 13:55 Dose: 25 mg Enoxaparin Sodium (Lovenox) 60 mg SC Q12 [facility] Last Admin: 02/03/17 09:39 Dose: 60 mg Ferrous Sulfate (Feosol) 325 mg PO BID [facility] Last Admin: 02/03/17 09:40 Dose: 325 mg Hydromorphone HCl (Dilaudid) 2 mg IVP Q3H PRN PRN Reason: Pain, moderate (4-7) Last Admin: 02/03/17 13:57 Dose: 2 mg Vancomycin/Sodium Chloride (Vancocin) 1 gm in 200 mls @ 129.032 mls/hr IVPB Q12H [facility] Stop: 02/05/17 17:01 Last Admin: 02/03/17 05:30 Dose: 129.032 mls/hr Imipenem/Cilastatin Sodium 500 (mg/ Sodium Chloride) 100 mls @ 100 mls/hr IVPB Q6H [facility] Last Admin: 02/03/17 16:15 Dose: 100 mls/hr Mesalamine (Delzicol) 800 mg PO TID [facility] Last Admin: 02/03/17 13:54 Dose: 800 mg Methylprednisolone (Medrol) 3 mg PO DAILY [facility] Pantoprazole Sodium (Protonix Ec Tab) 40 mg PO DAILY [facility] Last Admin: 02/03/17 09:40 Dose: 40 mg - Labs Labs: 02/02/17 16:50 02/02/17 16:50 PT 12.2 SECONDS (9.7-12.2) 02/02/17 16:50 INR 1.1 02/02/17 16:50 APTT 31 SECONDS (21-34) D 02/02/17 16:50
[2017-02-01] MEDS: Tmp-Smz 800 mg-160 mg DS Tab PO SCH ×2 (10:13→21:37)
[2017-02-01] MEDS: Pantoprazole 40 mg EC Tab PO SCH (10:13)
[2017-02-01] MEDS: Enoxaparin 40 mg Syringe SC SCH (10:13)
--- NOTE | 2017-02-01 11:25 | CT ---
CT neck History: Right-sided neck pain. Comparison: None available. Technique: Multiple contiguous axial images were performed through the soft tissues of the right neck without the use of intravenous contrast. Subsequently, sagittal and coronal reformatted images were obtained. This CT exam was performed using one or more of the following dose reduction techniques: Automated exposure control, adjustment of the mA and/or kV according to patient size, and/or use of iterative reconstruction technique. Findings: Within the right neck, adjacent to the right lobe of the thyroid, there is a large area of prominent soft tissue thickening, reticulation, and edema seen deep to the sternocleidomastoid, lateral to the right lobe of the thyroid, and centered at the level of the carotid and jugular vessels. This is best seen on series 2, image 50. This area measures approximately 4.7 x 2.7 centimeters. There may be some focal thickening and or enlargement of the right internal jugular vein at this level measuring up to 1.2 centimeters. Some reactive thickening of the posterior aspect of the right sternocleidomastoid muscle at this level as well as some mild tracheal deviation to the left. This is of uncertain clinical etiology. Underlying jugular vein thrombosis with associated surrounding acute infectious and or inflammatory changes cannot be excluded. Alternatively, underlying phlegmonous and or developing abscess changes at this level can't be excluded. Adjacent prominent and shotty lymphadenopathy within the cervical neck region is noted for example prominent cervical chain lymph nodes on the right at this level measure up to 1.5 centimeters as seen on series 601, image 51. Bilateral parotids are preserved. Submandibular glands are preserved. Hypo and oral pharynx are preserved. Remainder of the visualized trachea appears grossly preserved. Heterogeneity of the right lobe of the thyroid gland which may be reactive. Remainder of the thyroid gland appears grossly preserved. Visualized paranasal sinuses are preserved. Visualized lung apices are preserved. Impression: Within the right neck, adjacent to the right lobe of the thyroid, there is a large area of prominent soft tissue thickening, reticulation, and edema seen deep to the sternocleidomastoid, lateral to the right lobe of the thyroid, and centered at the level of the carotid and jugular vessels. This is best seen on series 2, image 50. This area measures approximately 4.7 x 2.7 centimeters. There may be some focal thickening and or enlargement of the right internal jugular vein at this level measuring up to 1.2 centimeters. Some reactive thickening of the posterior aspect of the right sternocleidomastoid muscle at this level as well as some mild tracheal deviation to the left. This is of uncertain clinical etiology. Underlying jugular vein thrombosis with associated surrounding acute infectious and or inflammatory changes cannot be excluded. Alternatively, underlying phlegmonous and or developing abscess changes at this level can't be excluded. Adjacent prominent and shotty lymphadenopathy within the cervical neck region is noted for example prominent cervical chain lymph nodes on the right at this level measure up to 1.5 centimeters as seen on series 601, image 51. Correlation with vascular ultrasound of the neck and or contrast-enhanced CT may be helpful if clinically indicated. Additional findings as above.
--- NOTE | 2017-02-01 11:40 | CT ---
CT chest History: Right neck pain and swelling. Comparison: None available. Technique: Multiple contiguous axial images were performed through the chest without the use of intravenous contrast. Subsequently, sagittal and coronal reformatted images were obtained. Findings: Please see separate report for evaluation of the right neck. Within the right neck, adjacent to the right lobe of the thyroid, there is a large area of prominent soft tissue thickening, reticulation, and edema seen deep to the sternocleidomastoid, lateral to the right lobe of the thyroid, and centered at the level of the carotid and jugular vessels. This is best seen on series 2, image 50. This area measures approximately 4.7 x 2.7 centimeters. There may be some focal thickening and or enlargement of the right internal jugular vein at this level measuring up to 1.2 centimeters. Some reactive thickening of the posterior aspect of the right sternocleidomastoid muscle at this level as well as some mild tracheal deviation to the left. This is of uncertain clinical etiology. Underlying jugular vein thrombosis with associated surrounding acute infectious and or inflammatory changes cannot be excluded. Alternatively, underlying phlegmonous and or developing abscess changes at this level can't be excluded. Adjacent prominent and shotty lymphadenopathy within the cervical neck region is noted for example prominent cervical chain lymph nodes on the right at this level measure up to 1.5 centimeters as seen on series 601, image 51. Correlation with vascular ultrasound of the neck and or contrast-enhanced CT may be helpful if clinically indicated. Right lung: Linear atelectasis within the superior segment of the right lower lobe. Additional basilar atelectasis within the right lower lobe more inferiorly. Left lun millimeter pulmonary nodule within the inferior aspect of the left upper lobe on series 3, image 56. Atelectatic changes at the left lung base with some linear atelectasis seen at the anterior aspect of the left lower lobe. Trachea thru central airways are patent. Suggestion of some focal aeration along the distal aspect of the esophagus. Few shotty right axillary lymph nodes noted. No significant left axillary adenopathy. Heterogeneity of the right lobe of the thyroid. Trace pericardial fluid noted. Few shotty right paratracheal lymph nodes measuring up to 9 millimeters. Prominent liver and spleen. Mild nodularity of the adrenals. Under distended stomach. Degenerative changes in the osseous structures. Impression: Please see separate report for evaluation of the right neck. 1. Within the right neck, adjacent to the right lobe of the thyroid, there is a large area of prominent soft tissue thickening, reticulation, and edema seen deep to the sternocleidomastoid, lateral to the right lobe of the thyroid, and centered at the level of the carotid and jugular vessels. This is best seen on series 2, image 50. This area measures approximately 4.7 x 2.7 centimeters. There may be some focal thickening and or enlargement of the right internal jugular vein at this level measuring up to 1.2 centimeters. Some reactive thickening of the posterior aspect of the right sternocleidomastoid muscle at this level as well as some mild tracheal deviation to the left. This is of uncertain clinical etiology. Underlying jugular vein thrombosis with associated surrounding acute infectious and or inflammatory changes cannot be excluded. Alternatively, underlying phlegmonous and or developing abscess changes at this level can't be excluded. Adjacent prominent and shotty lymphadenopathy within the cervical neck region is noted for example prominent cervical chain lymph nodes on the right at this level measure up to 1.5 centimeters as seen on series 601, image 51. Correlation with vascular ultrasound of the neck and or contrast-enhanced CT may be helpful if clinically indicated. 2. Linear atelectasis within the superior segment of the right lower lobe. Additional basilar atelectasis within the right lower lobe more inferiorly. 3.1 millimeter pulmonary nodule within the inferior aspect of the left upper lobe on series 3, image 56. Atelectatic changes at the left lung base with some linear atelectasis seen at the anterior aspect of the left lower lobe. 4. Trace pericardial fluid noted. 5. Few shotty right paratracheal lymph nodes measuring up to 9 millimeters. Additional findings as above.
--- NOTE | 2017-02-01 15:28 | CP.PCM.PN ---
Subjective - Date & Time of Evaluation Date of Evaluation: 02/01/17 Time of Evaluation: 12:25 - Subjective Subjective: clinically same Objective - Vital Signs/Intake and Output Vital Signs (last 24 hours): Temp Pulse Resp BP Pulse Ox 98.9 F 99 H 20 97/67 L 98 02/01/17 08:33 02/01/17 08:33 02/01/17 08:33 02/01/17 08:33 02/01/17 08:33 Intake and Output: 02/01/17 02/01/17 06:59 18:59 Intake Total 400 Balance 400 - Medications Medications: Current Medications Diphenhydramine HCl (Benadryl) 25 mg PO BID [facility] Last Admin: 02/01/17 10:12 Dose: Not Given Diphenhydramine HCl (Benadryl) 25 mg IVP Q3 PRN PRN Reason: Itching / Pruritus Last Admin: 02/01/17 12:38 Dose: 25 mg Enoxaparin Sodium (Lovenox) 40 mg SC DAILY [facility] Last Admin: 02/01/17 10:13 Dose: 40 mg Ferrous Sulfate (Feosol) 325 mg PO BID [facility] Last Admin: 02/01/17 10:13 Dose: 325 mg Hydromorphone HCl (Dilaudid) 2 mg IVP Q3H PRN PRN Reason: Pain, moderate (4-7) Last Admin: 02/01/17 12:39 Dose: 2 mg Vancomycin/Sodium Chloride (Vancocin) 1 gm in 200 mls @ 129.032 mls/hr IVPB Q12H [facility] Stop: 02/05/17 17:01 Last Admin: 02/01/17 05:24 Dose: 129.032 mls/hr Mesalamine (Delzicol) 800 mg PO TID [facility] Last Admin: 02/01/17 13:56 Dose: 800 mg Methylprednisolone (Medrol) 4 mg PO DAILY [facility] Last Admin: 02/01/17 10:19 Dose: 4 mg Pantoprazole Sodium (Protonix Ec Tab) 40 mg PO DAILY [facility] Last Admin: 02/01/17 10:13 Dose: 40 mg Trimethoprim/Sulfamethoxazole (Bactrim Ds Tab) 1 tab PO Q12H [facility] Last Admin: 02/01/17 10:13 Dose: 1 tab - Labs Labs: 01/30/17 20:56 01/30/17 20:03 PT 12.2 SECONDS (9.7-12.2) 01/30/17 20:03 INR 1.1 01/30/17 20:03 APTT 22 SECONDS (21-34) 01/30/17 20:03 Assessment and Plan - Assessment and Plan (Free Text) Plan: Dr. Claudia momin. wound care irina. Bactrim irina. Delzicol irina. Dilaudid conit. lovenox medrol vancomycin
[2017-02-02] MEDS: DiphenhydrAMINE 50 mg/ml Inj IVP PRN ×7 (01:31→22:24)
[2017-02-02] MEDS: Vancomycin 1 gm/NS 200 ml 1 GM/200 ML BAG IVPB SCH ×2 (04:22→18:13)
--- NOTE | 2017-02-02 07:03 | CON ---
DATE: 01/31/2017 HISTORY OF PRESENT ILLNESS: This patient is a 21-year-old male. He presented to the Emergency Room. This patient has been here before. He called me and he told me that he was in [facility] for a week and he was discharged without any antibiotics, and they told him that he still has abscesses. He had an I and D done and was sent home without any antibiotics. He says he was having again pain and swelli ng, wound was oozing and had a lot of pain, and he said he was having liquidy diarrhea in the colosto my bag. He also is complaining of right now right neck pain. He denied any fever, chills, nausea, v omiting, but he does have extensive skin problems in his perineal area and has been here before. Whe n he came in, his temperature was 100, pulse 113, blood pressure was 111/71, respirations were 20. Blair pierson has had debridement before. He has had multiple admissions here. He suffers from Crohn's disease and has a colostomy which was done in 2015. He also suffers from depression. He has had multiple co urses of antibiotics and did have MRSA. Also was treated with the imipenem at one point, but he has been so frequently on antibiotics and now having diarrhea which may be due to Crohn's or due to C. di ff. FAMILY HISTORY: Not known. SOCIAL HISTORY: Negative for smoking or drinking. REVIEW OF SYSTEMS: He did complain of right jaw and right neck pain. He denies any fever or chills. He denies any chest pain, no shortness of breath, no nausea, no vomiting. Has been having wounds w hich are oozing and has poor skin healing in the groin area, and has had frequent admissions and rece ntly was in [facility] as we told him to follow up there. MEDICATIONS: I just put him on vancomycin thinking of the MRSA he had. He is on mesalamine 800 p.o. daily (I think he should be 3 times a day____) and he is on prednisone 4 mg p.o. daily, pantoprazole , Bactrim, vancomycin we just started, and he is on hydromorphone, ferrous sulfate, Lovenox and Benad ryl. I think the mesalamine he was on 800 t.i.d. ____, and he says he was not on any prednisone/meth ylprednisolone in the other. He is on Bactrim at this time, which we will continue for now. He shou ld be on t.i.d. I would think ____. PHYSICAL EXAMINATION: GENERAL: I find temperature is 98.8, pulse is 108, blood pressure 106/73, respirations are 20. HEENT: Head is atraumatic, normocephalic. He is alert, oriented x 3. NECK: His right neck had no cellulitis, no warmth, no redness. I think it is probably torticollis. He has no PICC lines at this time. He has a peripheral IV. He said in [facility] also he did not have a PICC line. LUNGS: Clear. HEART: S1, S2 regular. ABDOMEN: Soft. Colostomy is present. EXTREMITIES: Have no edema, no clubbing. I did see his perirectal area in the back which extends to the perineum with extensive skin break and it is moist and has not been healing. I am not sure if t here is any abscesses, but it does appear moist and has not shown any improvement. It actually has d eteriorated from past. LABORATORY DATA: White count is 13.3 when he came. BUN is 8, hemoglobin 8.4, hematocrit 27.8, plate let count is 588. Neutrophils are 67.5, lymphs are 24.5. Creatinine is 0.7. UA showed blood ____, and leukocyte trace, RBC 9; it is probably due to the wounds present in the peritoneum. So at this time, he has these open skin wounds which probably, is hard to say, is continuation of the abscesses, but due to his poor immune status, these skin lesions in the perineum are not improving, and he does have some leakage at times of feces in the past so I am not sure if he has any fistula th at is causing a problem. He will need to follow with GI. Will give him antibiotics for some time to see if it improves. Santosh Daniel MD cc: [id number] TT: 02/01/2017 08:10:56 Confirmation # [id number] Dictation # [id number] [place]n
--- NOTE | 2017-02-02 07:37 | CP.PCM.PN ---
<Venkat Teran Kyree - Last Filed: 02/02/17 17:13> Subjective - Date & Time of Evaluation Date of Evaluation: 02/02/17 Time of Evaluation: 17:13 - Subjective Subjective: Gen Sx: Dr Taylor Pt S&E. MEHRAN. Perineal abscesses draining. Still complaining of pain in neck. Objective - Vital Signs/Intake and Output Vital Signs (last 24 hours): Temp Pulse Resp BP Pulse Ox 98 F 88 20 100/63 98 02/02/17 00:00 02/02/17 00:00 02/02/17 00:00 02/02/17 00:00 02/02/17 00:00 - Medications Medications: Current Medications Diphenhydramine HCl (Benadryl) 25 mg IVP Q3 PRN PRN Reason: Itching / Pruritus Last Admin: 02/02/17 04:21 Dose: 25 mg Enoxaparin Sodium (Lovenox) 40 mg SC DAILY [facility] Last Admin: 02/01/17 10:13 Dose: 40 mg Ferrous Sulfate (Feosol) 325 mg PO BID [facility] Last Admin: 02/01/17 17:25 Dose: 325 mg Hydromorphone HCl (Dilaudid) 2 mg IVP Q3H PRN PRN Reason: Pain, moderate (4-7) Last Admin: 02/02/17 04:23 Dose: 2 mg Vancomycin/Sodium Chloride (Vancocin) 1 gm in 200 mls @ 129.032 mls/hr IVPB Q12H [facility] Stop: 02/05/17 17:01 Last Admin: 02/02/17 04:22 Dose: 129.032 mls/hr Mesalamine (Delzicol) 800 mg PO TID [facility] Last Admin: 02/01/17 17:26 Dose: 800 mg Methylprednisolone (Medrol) 4 mg PO DAILY [facility] Last Admin: 02/01/17 10:19 Dose: 4 mg Pantoprazole Sodium (Protonix Ec Tab) 40 mg PO DAILY [facility] Last Admin: 02/01/17 10:13 Dose: 40 mg Trimethoprim/Sulfamethoxazole (Bactrim Ds Tab) 1 tab PO Q12H [facility] Last Admin: 02/01/17 21:37 Dose: 1 tab - Labs Labs: 01/30/17 20:56 01/30/17 20:03 PT 12.2 SECONDS (9.7-12.2) 01/30/17 20:03 INR 1.1 01/30/17 20:03 APTT 22 SECONDS (21-34) 01/30/17 20:03 - Constitutional Appears: Non-toxic, No Acute Distress - Head Exam Head Exam: NORMOCEPHALIC - ENT Exam Additional comments: right palpable swelling of right neck supraclavicular under SCM - Neck Exam Neck Exam: Tenderness - GI/Abdominal Exam GI & Abdominal Exam: Soft. absent: Distended, Tenderness - Neurological Exam Neurological Exam: Alert, Awake, Oriented x3 Assessment and Plan - Assessment and Plan (Free Text) Assessment: 21M with multiple recurrent abscesses - now with swelling to right lateral neck Plan: recommend ENT consult for neck swelling cont local wound care to abscess no general surgery intervention d/w Dr Claudia Teran ,PGY2 <Temo Taylor - Last Filed: 02/03/17 16:23> Objective - Vital Signs/Intake and Output Vital Signs (last 24 hours): Temp Pulse Resp BP Pulse Ox 98.9 F 89 20 103/70 98 02/03/17 09:29 02/03/17 09:29 02/03/17 09:29 02/03/17 09:29 02/03/17 09:29 Intake and Output: 02/03/17 02/03/17 06:59 18:59 Intake Total 1680 Output Total 1050 Balance 630 - Medications Medications: Current Medications Diphenhydramine HCl (Benadryl) 25 mg IVP Q3 PRN PRN Reason: Itching / Pruritus Last Admin: 02/03/17 13:55 Dose: 25 mg Enoxaparin Sodium (Lovenox) 60 mg SC Q12 [facility] Last Admin: 02/03/17 09:39 Dose: 60 mg Ferrous Sulfate (Feosol) 325 mg PO BID [facility] Last Admin: 02/03/17 09:40 Dose: 325 mg Hydromorphone HCl (Dilaudid) 2 mg IVP Q3H PRN PRN Reason: Pain, moderate (4-7) Last Admin: 02/03/17 13:57 Dose: 2 mg Vancomycin/Sodium Chloride (Vancocin) 1 gm in 200 mls @ 129.032 mls/hr IVPB Q12H [facility] Stop: 02/05/17 17:01 Last Admin: 02/03/17 05:30 Dose: 129.032 mls/hr Imipenem/Cilastatin Sodium 500 (mg/ Sodium Chloride) 100 mls @ 100 mls/hr IVPB Q6H [facility] Last Admin: 02/03/17 16:15 Dose: 100 mls/hr Mesalamine (Delzicol) 800 mg PO TID [facility] Last Admin: 02/03/17 13:54 Dose: 800 mg Methylprednisolone (Medrol) 3 mg PO DAILY [facility] Pantoprazole Sodium (Protonix Ec Tab) 40 mg PO DAILY [facility] Last Admin: 02/03/17 09:40 Dose: 40 mg - Labs Labs: 02/02/17 16:50 02/02/17 16:50 PT 12.2 SECONDS (9.7-12.2) 02/02/17 16:50 INR 1.1 02/02/17 16:50 APTT 31 SECONDS (21-34) D 02/02/17 16:50 Attending/Attestation - Attestation I have personally seen and examined this patient.: Yes I have fully participated in the care of the patient.: Yes I have reviewed all pertinent clinical information, including history, physical exam and plan: Yes Notes (Text): 02/03/17 16:23 Pt was seen and examined at bedside on 02/02/17 Agree with above note and assessment. 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
[2017-02-02] MEDS ORDERED: Enoxaparin 80 mg Syringe SC SCH (10:00)
[2017-02-02] MEDS: Pantoprazole 40 mg EC Tab PO SCH (10:49)
[2017-02-02] MEDS: Enoxaparin 60 mg Syringe SC SCH ×2 (10:49→22:23)
[2017-02-02] MEDS: Tmp-Smz 800 mg-160 mg DS Tab PO SCH (10:57)
--- NOTE | 2017-02-02 14:27 | CP.PCM.PN ---
Subjective - Date & Time of Evaluation Date of Evaluation: 02/02/17 Time of Evaluation: 02:20 - Subjective Subjective: dictated Objective - Vital Signs/Intake and Output Vital Signs (last 24 hours): Temp Pulse Resp BP Pulse Ox 98.7 F 102 H 20 95/63 L 98 02/02/17 08:09 02/02/17 08:09 02/02/17 08:09 02/02/17 08:09 02/02/17 08:09 Intake and Output: 02/02/17 02/02/17 06:59 18:59 Intake Total 240 Balance 240 - Medications Medications: Current Medications Diphenhydramine HCl (Benadryl) 25 mg IVP Q3 PRN PRN Reason: Itching / Pruritus Last Admin: 02/02/17 12:04 Dose: 25 mg Enoxaparin Sodium (Lovenox) 60 mg SC Q12 [facility] Last Admin: 02/02/17 10:49 Dose: 60 mg Ferrous Sulfate (Feosol) 325 mg PO BID [facility] Last Admin: 02/02/17 10:49 Dose: 325 mg Hydromorphone HCl (Dilaudid) 2 mg IVP Q3H PRN PRN Reason: Pain, moderate (4-7) Last Admin: 02/02/17 12:05 Dose: 2 mg Vancomycin/Sodium Chloride (Vancocin) 1 gm in 200 mls @ 129.032 mls/hr IVPB Q12H [facility] Stop: 02/05/17 17:01 Last Admin: 02/02/17 04:22 Dose: 129.032 mls/hr Imipenem/Cilastatin Sodium 500 (mg/ Dextrose) 100 mls @ 100 mls/hr IVPB Q6H [facility] Mesalamine (Delzicol) 800 mg PO TID [facility] Last Admin: 02/02/17 14:05 Dose: 800 mg Methylprednisolone (Medrol) 4 mg PO DAILY [facility] Last Admin: 02/02/17 10:49 Dose: 4 mg Pantoprazole Sodium (Protonix Ec Tab) 40 mg PO DAILY [facility] Last Admin: 02/02/17 10:49 Dose: 40 mg - Labs Labs: 01/30/17 20:56 01/30/17 20:03 PT 12.2 SECONDS (9.7-12.2) 01/30/17 20:03 INR 1.1 01/30/17 20:03 APTT 22 SECONDS (21-34) 01/30/17 20:03
[2017-02-02] MEDS ORDERED: Imipenem/Cilastatin 500 MG in Dextrose 5% In Water 100 ML IVPB SCH (14:30)
--- NOTE | 2017-02-02 15:25 | RAD ---
HISTORY: verify left PICC COMPARISON: 11/26/2016 FINDINGS: The left PICC line terminates in the SVC. LUNGS: The lungs are well inflated and clear. PLEURA: No significant pleural effusion identified, no pneumothorax apparent. CARDIOVASCULAR: Normal. OSSEOUS STRUCTURES: No significant abnormalities. VISUALIZED UPPER ABDOMEN: Normal. OTHER FINDINGS: None. IMPRESSION: Left PICC line terminates in the SVC. No acute findings.
--- NOTE | 2017-02-02 15:28 | PN ---
DATE: 02/02/2017 The patient was having too much neck pain, and he was also saying that when he would eat ice cream, i t would burn on that side. He did have PICC lines in the past. However, recently he says he was in [facility], and he did not have any line there - only peripheral IV, ____ he was only there for a couple o f days, and most of the time, he does not have any IV access, and he has spent many weeks in the hosp ital because of the perineal infection. He does say to me that he took Humira on Thursday, and he came here on Thursday. At this time, the question is that he has a DVT as well as an abscess ____ I will go over the report of the CAT scan myself, and would broaden the coverage of antibiotics as Dr. Genia horton was here and said the abscess needs to be well-covered with antibiotics further, and he has al ways had resistant organisms. So will add imipenem and discontinue the Bactrim and leave him on vanc omycin. PHYSICAL EXAMINATION: VITAL SIGNS: T-max is 98.7. Heart rate is 102. Blood pressure is 95/63. Respirations are 20. GENERAL: He is awake, alert. HEENT: Head is atraumatic. He is tender on the right neck. LUNGS: Clear. No crackles or rales present. HEART: S1, S2, tachycardic. ABDOMEN: Soft, nontender. He has a colostomy present. EXTREMITIES: No edema, clubbing, or cyanosis. He does have excoriation of the skin extending from t he lumbar area down to the perineum anteriorly, and wound cultures are pending. Blood culture x 2 is negative. LABORATORY DATA: His white count is 13.3. Hemoglobin is 8.4. This is old. So we will repeat the t est today stat. His CBC with diff stat, and also do a BMP stat so that we have recent labs, and I perales ve written the order for Primaxin, which will be started. He was on vancomycin and Bactrim, and I wa s hoping to get him better faster than previous time. Chest CT was done on 02/01 and shows right ____ adjacent to the right lobe of the thyroid, there is a large area of prominent soft tissue thickening, ____ and edema seen deep to the sternocleidomastoid l ateral to the right lobe of the thyroid. This is best seen and measured 4.7 x 2.7 cm. They may be s ome focal thickening and/or enlargement of the right internal jugular vein at this time measuring up to 1.2 cm, some reactive thickening of the posterior aspect of the right sternocleidomastoid at this level, and some mild tracheal deviation. Underlying jugular vein thrombosis was associated. Anuradha frost acute infection and/or inflammatory changes cannot be excluded. He also has a 3.1 mm pulmonary nodule within the inferior aspect of the left upper lobe, atelectatic changes in left lung base with ____ atelectasis seen at the anterior aspect of the left lobe, trace p ericardial fluid ____ lymph nodes measuring up to 9 mm. At this time, surgeon is aware of it, and he is going to get further help with other specialties, and duplex scan was done, report of which is pending of the artery. At this time on my end, I would bro flora the coverage to vancomycin and Primaxin, and will follow, unclear whether he has this, and vascu lar line is also needed remains to be another problem with this patient who has constant abscesses of the perineal area and the lumbar area, Crohn's disease, and now with thrombosis and infection of the right neck area. Santosh Daniel MD cc: [id number] TT: 02/02/2017 15:27:19 Confirmation # [id number] Dictation # [id number] [place]
--- NOTE | 2017-02-02 16:56 | CP.PCM.PN ---
Subjective - Date & Time of Evaluation Date of Evaluation: 02/02/17 Time of Evaluation: 08:40 - Subjective Subjective: clincally same Objective - Vital Signs/Intake and Output Vital Signs (last 24 hours): Temp Pulse Resp BP Pulse Ox 98.7 F 102 H 20 95/63 L 98 02/02/17 08:09 02/02/17 08:09 02/02/17 08:09 02/02/17 08:09 02/02/17 08:09 Intake and Output: 02/02/17 02/02/17 06:59 18:59 Intake Total 240 Balance 240 - Medications Medications: Current Medications Diphenhydramine HCl (Benadryl) 25 mg IVP Q3 PRN PRN Reason: Itching / Pruritus Last Admin: 02/02/17 16:09 Dose: 25 mg Enoxaparin Sodium (Lovenox) 60 mg SC Q12 [facility] Last Admin: 02/02/17 10:49 Dose: 60 mg Ferrous Sulfate (Feosol) 325 mg PO BID [facility] Last Admin: 02/02/17 10:49 Dose: 325 mg Hydromorphone HCl (Dilaudid) 2 mg IVP Q3H PRN PRN Reason: Pain, moderate (4-7) Last Admin: 02/02/17 16:11 Dose: 2 mg Vancomycin/Sodium Chloride (Vancocin) 1 gm in 200 mls @ 129.032 mls/hr IVPB Q12H [facility] Stop: 02/05/17 17:01 Last Admin: 02/02/17 04:22 Dose: 129.032 mls/hr Imipenem/Cilastatin Sodium 500 (mg/ Sodium Chloride) 100 mls @ 100 mls/hr IVPB Q6H [facility] Last Admin: 02/02/17 16:46 Dose: 100 mls/hr Mesalamine (Delzicol) 800 mg PO TID [facility] Last Admin: 02/02/17 14:05 Dose: 800 mg Methylprednisolone (Medrol) 4 mg PO DAILY [facility] Last Admin: 02/02/17 10:49 Dose: 4 mg Pantoprazole Sodium (Protonix Ec Tab) 40 mg PO DAILY [facility] Last Admin: 02/02/17 10:49 Dose: 40 mg - Labs Labs: 01/30/17 20:56 01/30/17 20:03 PT 12.2 SECONDS (9.7-12.2) 01/30/17 20:03 INR 1.1 01/30/17 20:03 APTT 22 SECONDS (21-34) 01/30/17 20:03 - Constitutional Appears: Well - Head Exam Head Exam: ATRAUMATIC, NORMAL INSPECTION, NORMOCEPHALIC - Eye Exam Eye Exam: EOMI, Normal appearance, PERRL Pupil Exam: NORMAL ACCOMODATION, PERRL - ENT Exam ENT Exam: Mucous Membranes Moist, Normal Exam - Neck Exam Neck Exam: Full ROM, Normal Inspection. absent: Lymphadenopathy - Respiratory Exam Respiratory Exam: Decreased Breath Sounds - Cardiovascular Exam Cardiovascular Exam: REGULAR RHYTHM, +S1, +S2 - GI/Abdominal Exam GI & Abdominal Exam: Soft, Diminished Bowel Sounds - Rectal Exam Rectal Exam: Deferred Assessment and Plan - Assessment and Plan (Free Text) Plan: * Pt seen and Examined * Pt with Right side of neck abscess * Doppler- Acute Thrombosis of right internal jugular, subclavian and axillary veins with sever reduction of the venous return, Left - no evidence of vein thrombosis * Lovenox * Vascular surgery consult w/Dr. Chung * IV Zosybn * Continue Wound Care
[2017-02-02 17:01] LABS: BASO # 0.1 K/uL (0.0-0.2); BASO % 0.7 % (0.0-2.0); EOS # 0.2 K/uL (0.0-0.7); EOS % 1.8 % (0.0-4.0); HEMOGLOBIN 8.5 g/dL (12.0-18.0); LYMPH # 1.3 K/uL (1.0-4.3); LYMPH % 14.7 % (20.0-40.0); MEAN CELL VOLUME 69.8 fL (80.0-94.0); MEAN CORPUSCULAR HEMOGLOBIN 20.7 pg (27.0-31.0); MEAN CORPUSCULAR HGB CONC 29.6 g/dL (33.0-37.0); MEAN PLATELET VOLUME 7.8 fL (7.2-11.7); MONO # 0.3 K/uL (0.0-0.8); MONO % 3.4 % (0.0-10.0); NEUT # 7.2 K/uL (1.8-7.0); NEUT % 79.4 % (50.0-75.0); RBC 4.1 Mil/uL (4.40-5.90); RED CELL DISTRIBUTION WIDTH 26.5 % (11.5-14.5)
[2017-02-02 17:10] LABS: INR 1.1; PROTHROMBIN TIME 12.2 SECONDS (9.7-12.2)
[2017-02-02 17:15] LABS: BLOOD UREA NITROGEN 8 mg/dL (9-20); CALCIUM 8.4 mg/dl (8.6-10.4); GFR AFRICAN-AMERICAN > 60; GFR NON-AFRICAN AMERICAN > 60
[2017-02-03] MEDS: DiphenhydrAMINE 50 mg/ml Inj IVP PRN ×8 (01:20→22:59)
[2017-02-03] MEDS: Vancomycin 1 gm/NS 200 ml 1 GM/200 ML BAG IVPB SCH ×2 (05:30→17:29)
[2017-02-03] MEDS: Enoxaparin 60 mg Syringe SC SCH ×2 (09:39→21:21)
[2017-02-03] MEDS: Pantoprazole 40 mg EC Tab PO SCH (09:40)
--- NOTE | 2017-02-03 13:31 | CP.PCM.PN ---
Subjective - Date & Time of Evaluation Date of Evaluation: 02/03/17 Time of Evaluation: 08:20 - Subjective Subjective: clinically same Objective - Vital Signs/Intake and Output Vital Signs (last 24 hours): Temp Pulse Resp BP Pulse Ox 98.9 F 89 20 103/70 98 02/03/17 09:29 02/03/17 09:29 02/03/17 09:29 02/03/17 09:29 02/03/17 09:29 Intake and Output: 02/03/17 02/03/17 06:59 18:59 Intake Total 660 Output Total 650 Balance 10 - Medications Medications: Current Medications Diphenhydramine HCl (Benadryl) 25 mg IVP Q3 PRN PRN Reason: Itching / Pruritus Last Admin: 02/03/17 10:56 Dose: 25 mg Enoxaparin Sodium (Lovenox) 60 mg SC Q12 [facility] Last Admin: 02/03/17 09:39 Dose: 60 mg Ferrous Sulfate (Feosol) 325 mg PO BID [facility] Last Admin: 02/03/17 09:40 Dose: 325 mg Hydromorphone HCl (Dilaudid) 2 mg IVP Q3H PRN PRN Reason: Pain, moderate (4-7) Last Admin: 02/03/17 10:58 Dose: 2 mg Vancomycin/Sodium Chloride (Vancocin) 1 gm in 200 mls @ 129.032 mls/hr IVPB Q12H [facility] Stop: 02/05/17 17:01 Last Admin: 02/03/17 05:30 Dose: 129.032 mls/hr Imipenem/Cilastatin Sodium 500 (mg/ Sodium Chloride) 100 mls @ 100 mls/hr IVPB Q6H [facility] Last Admin: 02/03/17 09:38 Dose: 100 mls/hr Mesalamine (Delzicol) 800 mg PO TID [facility] Last Admin: 02/03/17 09:40 Dose: 800 mg Methylprednisolone (Medrol) 4 mg PO DAILY [facility] Last Admin: 02/03/17 09:40 Dose: 4 mg Pantoprazole Sodium (Protonix Ec Tab) 40 mg PO DAILY [facility] Last Admin: 02/03/17 09:40 Dose: 40 mg - Labs Labs: 02/02/17 16:50 02/02/17 16:50 PT 12.2 SECONDS (9.7-12.2) 02/02/17 16:50 INR 1.1 02/02/17 16:50 APTT 31 SECONDS (21-34) D 02/02/17 16:50 - Constitutional Appears: Well - Head Exam Head Exam: ATRAUMATIC, NORMAL INSPECTION, NORMOCEPHALIC - Eye Exam Eye Exam: EOMI, Normal appearance, PERRL Pupil Exam: NORMAL ACCOMODATION, PERRL - ENT Exam ENT Exam: Mucous Membranes Moist, Normal Exam - Neck Exam Neck Exam: Full ROM, Normal Inspection. absent: Lymphadenopathy - Respiratory Exam Respiratory Exam: Decreased Breath Sounds - Cardiovascular Exam Cardiovascular Exam: REGULAR RHYTHM, +S1, +S2 - GI/Abdominal Exam GI & Abdominal Exam: Soft, Diminished Bowel Sounds - Rectal Exam Rectal Exam: Deferred Assessment and Plan - Assessment and Plan (Free Text) Plan: ENT consult with Dr. angelia beach but I spoke to Dr. Newton but if by HEENT wound to the surgery then Dr. Newton but may consider doing the surgery Continue same IV antibiotic ID consult
--- NOTE | 2017-02-03 13:40 | CP.PCM.PN ---
<Edward Padilla - Last Filed: 02/03/17 17:13> Subjective - Date & Time of Evaluation Date of Evaluation: 02/03/17 Time of Evaluation: 07:10 - Subjective Subjective: SURGERY PROGRESS NOTE FOR DR. WEBB 21M seen and examined at bedside. Patient continues to complain of right neck pain and groin pain. Objective - Vital Signs/Intake and Output Vital Signs (last 24 hours): Temp Pulse Resp BP Pulse Ox 98.9 F 89 20 103/70 98 02/03/17 09:29 02/03/17 09:29 02/03/17 09:29 02/03/17 09:29 02/03/17 09:29 Intake and Output: 02/03/17 02/03/17 06:59 18:59 Intake Total 660 Output Total 650 Balance 10 - Medications Medications: Current Medications Diphenhydramine HCl (Benadryl) 25 mg IVP Q3 PRN PRN Reason: Itching / Pruritus Last Admin: 02/03/17 10:56 Dose: 25 mg Enoxaparin Sodium (Lovenox) 60 mg SC Q12 [facility] Last Admin: 02/03/17 09:39 Dose: 60 mg Ferrous Sulfate (Feosol) 325 mg PO BID [facility] Last Admin: 02/03/17 09:40 Dose: 325 mg Hydromorphone HCl (Dilaudid) 2 mg IVP Q3H PRN PRN Reason: Pain, moderate (4-7) Last Admin: 02/03/17 10:58 Dose: 2 mg Vancomycin/Sodium Chloride (Vancocin) 1 gm in 200 mls @ 129.032 mls/hr IVPB Q12H [facility] Stop: 02/05/17 17:01 Last Admin: 02/03/17 05:30 Dose: 129.032 mls/hr Imipenem/Cilastatin Sodium 500 (mg/ Sodium Chloride) 100 mls @ 100 mls/hr IVPB Q6H [facility] Last Admin: 02/03/17 09:38 Dose: 100 mls/hr Mesalamine (Delzicol) 800 mg PO TID [facility] Last Admin: 02/03/17 09:40 Dose: 800 mg Methylprednisolone (Medrol) 4 mg PO DAILY [facility] Last Admin: 02/03/17 09:40 Dose: 4 mg Pantoprazole Sodium (Protonix Ec Tab) 40 mg PO DAILY [facility] Last Admin: 02/03/17 09:40 Dose: 40 mg - Labs Labs: 02/02/17 16:50 02/02/17 16:50 PT 12.2 SECONDS (9.7-12.2) 02/02/17 16:50 INR 1.1 02/02/17 16:50 APTT 31 SECONDS (21-34) D 02/02/17 16:50 - Constitutional Appears: Non-toxic, No Acute Distress - Head Exam Head Exam: ATRAUMATIC - ENT Exam ENT Exam: Mucous Membranes Moist - Neck Exam Additional comments: right side neck pain on palpation - Respiratory Exam Respiratory Exam: Clear to Ausculation Bilateral, NORMAL BREATHING PATTERN - Cardiovascular Exam Cardiovascular Exam: REGULAR RHYTHM, +S1, +S2 - Rectal Exam Additional comments: two groin abscesses currently draining. - Neurological Exam Neurological Exam: Alert, Awake Assessment and Plan - Assessment and Plan (Free Text) Assessment: 21M presents with groin abscess and right neck abscess seen on CT - continue current antibiotics and pain control - Groin abscess currently draining - Recommend ENT Dr. Hill to evaluate neck abscess Discussed with Dr Claudia Padilla, PGY1 <Temo Webb - Last Filed: 02/06/17 13:28> Objective - Vital Signs/Intake and Output Vital Signs (last 24 hours): Temp Pulse Resp BP Pulse Ox 98 F 76 20 102/67 100 02/06/17 07:40 02/06/17 07:40 02/06/17 07:40 02/06/17 07:40 02/06/17 07:40 Intake and Output: 02/06/17 02/06/17 06:59 18:59 Intake Total 1000 Output Total 600 Balance 400 - Medications Medications: Current Medications Diphenhydramine HCl (Benadryl) 25 mg IVP Q3 PRN PRN Reason: Itching / Pruritus Last Admin: 02/06/17 11:52 Dose: 25 mg Enoxaparin Sodium (Lovenox) 60 mg SC Q12 [facility] Last Admin: 02/06/17 10:50 Dose: 60 mg Ferrous Sulfate (Feosol) 325 mg PO BID [facility] Last Admin: 02/06/17 10:50 Dose: 325 mg Hydromorphone HCl (Dilaudid) 1.5 mg IVP Q3 PRN PRN Reason: Pain, severe (8-10) Last Admin: 02/06/17 11:51 Dose: 1.5 mg Imipenem/Cilastatin Sodium 500 (mg/ Sodium Chloride) 100 mls @ 100 mls/hr IVPB Q6H [facility] Last Admin: 02/06/17 10:49 Dose: 100 mls/hr Daptomycin 360 mg/ Sodium (Chloride) 100 mls @ 100 mls/hr IV Q24H [facility] Stop: 02/14/17 12:01 Last Admin: 02/06/17 12:02 Dose: 100 mls/hr Mesalamine (Delzicol) 800 mg PO TID [facility] Last Admin: 02/06/17 10:53 Dose: 800 mg Pantoprazole Sodium (Protonix Ec Tab) 40 mg PO DAILY [facility] Last Admin: 02/06/17 10:50 Dose: 40 mg - Labs Labs: 02/06/17 05:58 02/06/17 05:58 PT 12.2 SECONDS (9.7-12.2) 02/02/17 16:50 INR 1.1 02/02/17 16:50 APTT 31 SECONDS (21-34) D 02/02/17 16:50 Attending/Attestation - Attestation I have personally seen and examined this patient.: Yes I have fully participated in the care of the patient.: Yes I have reviewed all pertinent clinical information, including history, physical exam and plan: Yes Notes (Text): 02/06/17 13:25 Pt was seen and examined at bedside on 02/03/17 Agree with above note and assessment Awaiting Vascular surgery in put for Jugular vein thrombosis Awaiting ENT consult for possible neck abscess C.w current mx Plan d.w pt in detail Risk and benefit explained in detail.
--- NOTE | 2017-02-03 14:51 | VASCLAB ---
PROCEDURE: Upper Extremity Venous Duplex Exam HISTORY: possible thrombosed right jugular vein PRIORS: None. TECHNIQUE: Bilateral upper extremity, internal jugular, subclavian, axillary, brachial, ulnar, radial, basilic and upper cephalic veins were evaluated. Flow was assessed with color Doppler, compressibility, assessment of phasic flow and augmentation response. Report prepared by Carlos Enrique Quiroz, MANUEL, RVT FINDINGS: RIGHT: 1. Internal Jugular: 1.1. Compressibility - Partial: Thrombus - Acute : Flow - Reduced : Augmentation -None: Reflux - None. 2. Subclavian: 2.1. Compressibility - Partial: Thrombus - Acute : Flow - Reduced : Augmentation -None: Reflux - None. 3. Axillary: 3.1. Compressibility - Partial: Thrombus - Acute : Flow - Reduced : Augmentation -None: Reflux - None. 4. Brachial: 4.1. Compressibility - Fully compressible: Thrombus - None: Flow - Phasic: Augmentation -Normal: Reflux - None. 5. Ulnar: 5.1. Compressibility - Fully compressible: Thrombus - None: Flow - Phasic: Augmentation -Normal: Reflux - None. 6. Radial: 6.1. Compressibility - Fully compressible: Thrombus - None: Flow - Phasic: Augmentation - Normal: Reflux - None. 7. Cephalic: 7.1. Compressibility - Fully compressible: Thrombus - None: Flow - Phasic: Augmentation -Normal: Reflux - None. 8. Basilic: 8.1. Compressibility - Fully compressible: Thrombus - None: Flow - Phasic: Augmentation -Normal: Reflux - None. LEFT: 1. Internal Jugular: 1.1. Compressibility - Fully compressible: Thrombus - None : Flow - Phasic: Augmentation -Normal: Reflux - None. 2. Subclavian: 2.1. Compressibility - Fully compressible: Thrombus - None : Flow - Phasic: Augmentation -Normal: Reflux - None. 3. Axillary: 3.1. Compressibility - Fully compressible: Thrombus - None : Flow - Phasic: Augmentation -Normal: Reflux - None. 4. Brachial: 4.1. Compressibility - Fully compressible: Thrombus - None: Flow - Phasic: Augmentation -Normal: Reflux - None. 5. Ulnar: 5.1. Compressibility - Fully compressible: Thrombus - None: Flow - Phasic: Augmentation -Normal: Reflux - None. 6. Radial: 6.1. Compressibility - Fully compressible: Thrombus - None: Flow - Phasic: Augmentation - Normal: Reflux - None. 7. Cephalic: 7.1. Compressibility - Fully compressible: Thrombus - None: Flow - Phasic: Augmentation -Normal: Reflux - None. 8. Basilic: 8.1. Compressibility - Fully compressible: Thrombus - None: Flow - Phasic: Augmentation -Normal: Reflux - None. OTHER FINDINGS: ASAF Camarena notified about the findings. IMPRESSION: Right: Acute thrombosis of the right internal jugular, subclavian and axillary veins with sever reduction of the venous return. Left: No evidence of vein thrombosis of the left upper extremity with excellent venous flow. Normal valve function noted of the left side.
--- NOTE | 2017-02-03 15:38 | CP.PCM.PN ---
Subjective - Date & Time of Evaluation Date of Evaluation: 02/03/17 Time of Evaluation: 03:30 - Subjective Subjective: dictated Objective - Vital Signs/Intake and Output Vital Signs (last 24 hours): Temp Pulse Resp BP Pulse Ox 98.9 F 89 20 103/70 98 02/03/17 09:29 02/03/17 09:29 02/03/17 09:29 02/03/17 09:29 02/03/17 09:29 Intake and Output: 02/03/17 02/03/17 06:59 18:59 Intake Total 1680 Output Total 1050 Balance 630 - Medications Medications: Current Medications Diphenhydramine HCl (Benadryl) 25 mg IVP Q3 PRN PRN Reason: Itching / Pruritus Last Admin: 02/03/17 13:55 Dose: 25 mg Enoxaparin Sodium (Lovenox) 60 mg SC Q12 [facility] Last Admin: 02/03/17 09:39 Dose: 60 mg Ferrous Sulfate (Feosol) 325 mg PO BID [facility] Last Admin: 02/03/17 09:40 Dose: 325 mg Hydromorphone HCl (Dilaudid) 2 mg IVP Q3H PRN PRN Reason: Pain, moderate (4-7) Last Admin: 02/03/17 13:57 Dose: 2 mg Vancomycin/Sodium Chloride (Vancocin) 1 gm in 200 mls @ 129.032 mls/hr IVPB Q12H [facility] Stop: 02/05/17 17:01 Last Admin: 02/03/17 05:30 Dose: 129.032 mls/hr Imipenem/Cilastatin Sodium 500 (mg/ Sodium Chloride) 100 mls @ 100 mls/hr IVPB Q6H [facility] Last Admin: 02/03/17 09:38 Dose: 100 mls/hr Mesalamine (Delzicol) 800 mg PO TID [facility] Last Admin: 02/03/17 13:54 Dose: 800 mg Methylprednisolone (Medrol) 4 mg PO DAILY [facility] Last Admin: 02/03/17 09:40 Dose: 4 mg Pantoprazole Sodium (Protonix Ec Tab) 40 mg PO DAILY [facility] Last Admin: 02/03/17 09:40 Dose: 40 mg - Labs Labs: 02/02/17 16:50 02/02/17 16:50 PT 12.2 SECONDS (9.7-12.2) 02/02/17 16:50 INR 1.1 02/02/17 16:50 APTT 31 SECONDS (21-34) D 02/02/17 16:50
--- NOTE | 2017-02-03 16:07 | PN ---
DATE: 02/03/2017 SUBJECTIVE: The patient is getting IV antibiotics. I do not see any plans for surgery at this time, but he is being evaluated. He does have an abscess on the right neck area and left arm, a new PICC line was placed. He did have the bleeding, also, and he has an abscess in the perianal area, which i s being evaluated. PHYSICAL EXAMINATION: VITAL SIGNS: T-max is 98.9, pulse 89, blood pressure 103/70, respirations are 20. HEENT: Head is atraumatic, normocephalic. Right, the anterior sternocleidomastoid is prominent at t his time. LUNGS: Are clear. HEART: S1, S2 are regular. ABDOMEN: Soft. Colostomy is functioning. EXTREMITIES: Have no edema, clubbing, or cyanosis. MEDICATIONS: He is on Lovenox q. 12 hours, and Benadryl, Feosol, Dilaudid, imipenem, Asacol, and jaylene l try to decrease the Medrol gradually as this was just started here and may be causing problems. He is on Protonix and vancomycin at this time. The wound culture came out gram-negative and gram-negative wound culture in the sacral wound and groi n wound, and will continue vancomycin and Primaxin at this time. He does have maybe a clot and an ab scess in the jugular area, right jugular, and has perianal abscesses and Crohn disease. Will follow and will try to decrease the Medrol here at this time and will follow. Santosh Daniel MD cc: [id number] TT: 02/03/2017 16:06:47 Confirmation # [id number] Dictation # [id number] adriana
[2017-02-04] MEDS: DiphenhydrAMINE 50 mg/ml Inj IVP PRN ×7 (02:08→21:28)
[2017-02-04] MEDS: Vancomycin 1 gm/NS 200 ml 1 GM/200 ML BAG IVPB SCH (05:06)
[2017-02-04] MEDS: Pantoprazole 40 mg EC Tab PO SCH (09:50)
[2017-02-04] MEDS: Enoxaparin 60 mg Syringe SC SCH ×2 (09:50→21:28)
--- NOTE | 2017-02-04 11:04 | CP.PCM.PN ---
Subjective - Date & Time of Evaluation Date of Evaluation: 02/04/17 Time of Evaluation: 11:01 - Subjective Subjective: Surgery: Dr. Chung Pt seen and examined. Continues to have R side neck pain. Objective - Vital Signs/Intake and Output Vital Signs (last 24 hours): Temp Pulse Resp BP Pulse Ox 98.2 F 108 H 20 99/67 L 100 02/04/17 08:24 02/04/17 08:24 02/04/17 08:24 02/04/17 08:24 02/04/17 08:24 Intake and Output: 02/04/17 02/04/17 06:59 18:59 Intake Total 550 Output Total 600 Balance -50 - Medications Medications: Current Medications Diphenhydramine HCl (Benadryl) 25 mg IVP Q3 PRN PRN Reason: Itching / Pruritus Last Admin: 02/04/17 08:10 Dose: 25 mg Enoxaparin Sodium (Lovenox) 60 mg SC Q12 [facility] Last Admin: 02/04/17 09:50 Dose: 60 mg Ferrous Sulfate (Feosol) 325 mg PO BID [facility] Last Admin: 02/04/17 09:50 Dose: 325 mg Hydromorphone HCl (Dilaudid) 2 mg IVP Q3H PRN PRN Reason: Pain, moderate (4-7) Last Admin: 02/04/17 08:12 Dose: 2 mg Imipenem/Cilastatin Sodium 500 (mg/ Sodium Chloride) 100 mls @ 100 mls/hr IVPB Q6H [facility] Last Admin: 02/04/17 04:01 Dose: 100 mls/hr Daptomycin 360 mg/ Sodium (Chloride) 100 mls @ 100 mls/hr IV Q24H [facility] Stop: 02/14/17 12:01 Mesalamine (Delzicol) 800 mg PO TID [facility] Last Admin: 02/04/17 09:51 Dose: 800 mg Methylprednisolone (Medrol) 2 mg PO DAILY [facility] Stop: 02/06/17 10:01 Last Admin: 02/04/17 09:51 Dose: 2 mg Pantoprazole Sodium (Protonix Ec Tab) 40 mg PO DAILY [facility] Last Admin: 02/04/17 09:50 Dose: 40 mg - Labs Labs: 02/02/17 16:50 02/02/17 16:50 PT 12.2 SECONDS (9.7-12.2) 02/02/17 16:50 INR 1.1 02/02/17 16:50 APTT 31 SECONDS (21-34) D 02/02/17 16:50 - Constitutional Appears: Non-toxic, No Acute Distress - Head Exam Head Exam: ATRAUMATIC, NORMOCEPHALIC - Eye Exam Eye Exam: EOMI - ENT Exam ENT Exam: Mucous Membranes Moist - Neck Exam Neck Exam: Tenderness (R side). absent: Full ROM (pain w. movement) - Respiratory Exam Respiratory Exam: NORMAL BREATHING PATTERN. absent: Accessory Muscle Use, Respiratory Distress - GI/Abdominal Exam GI & Abdominal Exam: Soft. absent: Tenderness - Extremities Exam Extremities Exam: absent: Calf Tenderness, Pedal Edema - Neurological Exam Neurological Exam: Alert, Awake, Oriented x3 Assessment and Plan - Assessment and Plan (Free Text) Assessment: 21M w. Acute thrombosis of R IJ, subclavain, and axillary veins -c/w therapeutic lovenox -no plans for surgery from vascular standpoint -d/w Dr. Juliet Morales PGY2
--- NOTE | 2017-02-04 11:08 | CP.PCM.PN ---
Subjective - Date & Time of Evaluation Date of Evaluation: 02/04/17 Time of Evaluation: 08:20 - Subjective Subjective: * Continue Antibiotics * Lovenox * Wound care * Objective - Vital Signs/Intake and Output Vital Signs (last 24 hours): Temp Pulse Resp BP Pulse Ox 98.2 F 108 H 20 99/67 L 100 02/04/17 08:24 02/04/17 08:24 02/04/17 08:24 02/04/17 08:24 02/04/17 08:24 Intake and Output: 02/04/17 02/04/17 06:59 18:59 Intake Total 550 Output Total 600 Balance -50 - Medications Medications: Current Medications Diphenhydramine HCl (Benadryl) 25 mg IVP Q3 PRN PRN Reason: Itching / Pruritus Last Admin: 02/04/17 08:10 Dose: 25 mg Enoxaparin Sodium (Lovenox) 60 mg SC Q12 [facility] Last Admin: 02/04/17 09:50 Dose: 60 mg Ferrous Sulfate (Feosol) 325 mg PO BID [facility] Last Admin: 02/04/17 09:50 Dose: 325 mg Hydromorphone HCl (Dilaudid) 2 mg IVP Q3H PRN PRN Reason: Pain, moderate (4-7) Last Admin: 02/04/17 08:12 Dose: 2 mg Imipenem/Cilastatin Sodium 500 (mg/ Sodium Chloride) 100 mls @ 100 mls/hr IVPB Q6H [facility] Last Admin: 02/04/17 04:01 Dose: 100 mls/hr Daptomycin 360 mg/ Sodium (Chloride) 100 mls @ 100 mls/hr IV Q24H [facility] Stop: 02/14/17 12:01 Mesalamine (Delzicol) 800 mg PO TID [facility] Last Admin: 02/04/17 09:51 Dose: 800 mg Methylprednisolone (Medrol) 2 mg PO DAILY [facility] Stop: 02/06/17 10:01 Last Admin: 02/04/17 09:51 Dose: 2 mg Pantoprazole Sodium (Protonix Ec Tab) 40 mg PO DAILY [facility] Last Admin: 02/04/17 09:50 Dose: 40 mg - Labs Labs: 02/02/17 16:50 02/02/17 16:50 PT 12.2 SECONDS (9.7-12.2) 02/02/17 16:50 INR 1.1 02/02/17 16:50 APTT 31 SECONDS (21-34) D 02/02/17 16:50 - Constitutional Appears: Well - Head Exam Head Exam: ATRAUMATIC, NORMAL INSPECTION, NORMOCEPHALIC - Eye Exam Eye Exam: EOMI, Normal appearance, PERRL Pupil Exam: NORMAL ACCOMODATION, PERRL - ENT Exam ENT Exam: Mucous Membranes Moist, Normal Exam - Neck Exam Neck Exam: Full ROM, Normal Inspection. absent: Lymphadenopathy - Respiratory Exam Respiratory Exam: Decreased Breath Sounds - Cardiovascular Exam Cardiovascular Exam: REGULAR RHYTHM, +S1, +S2 - GI/Abdominal Exam GI & Abdominal Exam: Soft, Diminished Bowel Sounds - Rectal Exam Rectal Exam: Deferred
--- NOTE | 2017-02-04 18:14 | CON ---
DATE: 02/04/2017 The patient is a 21-year-old man with Crohn disease admitted. I was asked to see him for swelling in the neck and at this time after evaluation it appears that he has a thrombosis of the right jugular vein as well as subclavian veins. Our plan at present is to treat the patient with anticoagulation. The catheter has previously been removed and this appears to be the inciting cause. I would not rec ommend any surgical or endovascular intervention at this time and he should be anticoagulated for a p eriod of time depending on all his other medical conditions, etc. There are no plans for any other i ntervention. Shawn Chung Jr., MD cc: [id number] TT: 02/04/2017 18:14:01 Confirmation # [id number] Dictation # [id number]
[2017-02-05] MEDS: DiphenhydrAMINE 50 mg/ml Inj IVP PRN ×7 (00:32→22:18)
[2017-02-05] MEDS: Pantoprazole 40 mg EC Tab PO SCH (09:52)
[2017-02-05] MEDS: Enoxaparin 60 mg Syringe SC SCH ×2 (09:55→21:23)
--- NOTE | 2017-02-05 11:27 | CP.PCM.PN ---
Subjective - Date & Time of Evaluation Date of Evaluation: 02/05/17 Time of Evaluation: 11:26 - Subjective Subjective: Surgery: Dr. Chung Pt seen and examined. Resting comfortably in bed. Has mild R side neck discmofort. Objective - Vital Signs/Intake and Output Vital Signs (last 24 hours): Temp Pulse Resp BP Pulse Ox 98.4 F 78 20 105/68 100 02/05/17 07:42 02/05/17 07:42 02/05/17 07:42 02/05/17 07:42 02/05/17 07:42 Intake and Output: 02/05/17 02/05/17 06:59 18:59 Intake Total 400 Output Total 550 Balance -150 - Medications Medications: Current Medications Diphenhydramine HCl (Benadryl) 25 mg IVP Q3 PRN PRN Reason: Itching / Pruritus Last Admin: 02/05/17 09:52 Dose: 25 mg Enoxaparin Sodium (Lovenox) 60 mg SC Q12 [facility] Last Admin: 02/05/17 09:55 Dose: 60 mg Ferrous Sulfate (Feosol) 325 mg PO BID [facility] Last Admin: 02/05/17 09:55 Dose: 325 mg Hydromorphone HCl (Dilaudid) 1.5 mg IVP Q3 PRN PRN Reason: Pain, severe (8-10) Last Admin: 02/05/17 09:53 Dose: 1.5 mg Imipenem/Cilastatin Sodium 500 (mg/ Sodium Chloride) 100 mls @ 100 mls/hr IVPB Q6H [facility] Last Admin: 02/05/17 10:18 Dose: 100 mls/hr Daptomycin 360 mg/ Sodium (Chloride) 100 mls @ 100 mls/hr IV Q24H [facility] Stop: 02/14/17 12:01 Last Admin: 02/04/17 13:11 Dose: 100 mls/hr Mesalamine (Delzicol) 800 mg PO TID [facility] Last Admin: 02/05/17 10:01 Dose: 800 mg Methylprednisolone (Medrol) 2 mg PO DAILY [facility] Stop: 02/06/17 10:01 Last Admin: 02/05/17 10:04 Dose: 2 mg Pantoprazole Sodium (Protonix Ec Tab) 40 mg PO DAILY [facility] Last Admin: 02/05/17 09:52 Dose: 40 mg - Labs Labs: 02/02/17 16:50 02/02/17 16:50 PT 12.2 SECONDS (9.7-12.2) 02/02/17 16:50 INR 1.1 02/02/17 16:50 APTT 31 SECONDS (21-34) D 02/02/17 16:50 - Constitutional Appears: Non-toxic, No Acute Distress - Head Exam Head Exam: ATRAUMATIC, NORMOCEPHALIC - Eye Exam Eye Exam: EOMI - ENT Exam ENT Exam: Mucous Membranes Moist - Neck Exam Neck Exam: Full ROM Additional comments: R side tender to palpation - GI/Abdominal Exam GI & Abdominal Exam: Soft. absent: Tenderness - Neurological Exam Neurological Exam: Alert, Awake, Oriented x3 Assessment and Plan - Assessment and Plan (Free Text) Assessment: 21M w. Acute thrombosis of R IJ, subclavain, and axillary veins -c/w therapeutic lovenox -no further intervention from vascular standpoint at this time -d/w attending Zemaitis PGY2
--- NOTE | 2017-02-05 11:32 | CP.PCM.PN ---
<Alex Morales - Last Filed: 02/05/17 11:29> Subjective - Date & Time of Evaluation Date of Evaluation: 02/05/17 Time of Evaluation: 11:29 - Subjective Subjective: Surgery: Dr. Taylor Pt seen and examined. Has mild discomfort at L buttock, where prior ID was done for abscess. Objective - Vital Signs/Intake and Output Vital Signs (last 24 hours): Temp Pulse Resp BP Pulse Ox 98.4 F 78 20 105/68 100 02/05/17 07:42 02/05/17 07:42 02/05/17 07:42 02/05/17 07:42 02/05/17 07:42 Intake and Output: 02/05/17 02/05/17 06:59 18:59 Intake Total 400 Output Total 550 Balance -150 - Medications Medications: Current Medications Diphenhydramine HCl (Benadryl) 25 mg IVP Q3 PRN PRN Reason: Itching / Pruritus Last Admin: 02/05/17 09:52 Dose: 25 mg Enoxaparin Sodium (Lovenox) 60 mg SC Q12 [facility] Last Admin: 02/05/17 09:55 Dose: 60 mg Ferrous Sulfate (Feosol) 325 mg PO BID [facility] Last Admin: 02/05/17 09:55 Dose: 325 mg Hydromorphone HCl (Dilaudid) 1.5 mg IVP Q3 PRN PRN Reason: Pain, severe (8-10) Last Admin: 02/05/17 09:53 Dose: 1.5 mg Imipenem/Cilastatin Sodium 500 (mg/ Sodium Chloride) 100 mls @ 100 mls/hr IVPB Q6H [facility] Last Admin: 02/05/17 10:18 Dose: 100 mls/hr Daptomycin 360 mg/ Sodium (Chloride) 100 mls @ 100 mls/hr IV Q24H [facility] Stop: 02/14/17 12:01 Last Admin: 02/04/17 13:11 Dose: 100 mls/hr Mesalamine (Delzicol) 800 mg PO TID [facility] Last Admin: 02/05/17 10:01 Dose: 800 mg Methylprednisolone (Medrol) 2 mg PO DAILY [facility] Stop: 02/06/17 10:01 Last Admin: 02/05/17 10:04 Dose: 2 mg Pantoprazole Sodium (Protonix Ec Tab) 40 mg PO DAILY [facility] Last Admin: 02/05/17 09:52 Dose: 40 mg - Labs Labs: 02/02/17 16:50 02/02/17 16:50 PT 12.2 SECONDS (9.7-12.2) 02/02/17 16:50 INR 1.1 02/02/17 16:50 APTT 31 SECONDS (21-34) D 02/02/17 16:50 - Constitutional Appears: Non-toxic, No Acute Distress - Head Exam Head Exam: ATRAUMATIC, NORMOCEPHALIC - Eye Exam Eye Exam: EOMI - ENT Exam ENT Exam: Mucous Membranes Moist - Neck Exam Neck Exam: Full ROM - GI/Abdominal Exam GI & Abdominal Exam: Soft. absent: Tenderness - Back Exam Additional comments: L buttock 4x2 cm area of exposed subq tissue from prior ID, clean wound bed, no odor, no drainage/pus, tender to palpation, no fluctuance Assessment and Plan - Assessment and Plan (Free Text) Assessment: 21M w. L buttock wound from prior I&D of abscess -no drainable collection at this time -local wound care - medihoney -no plans for surgical intervention at this time -will sing off, please re-consult if needed -d/w attending Zemaitis PGY2 <Temo Taylor - Last Filed: 02/06/17 13:40> Objective - Vital Signs/Intake and Output Vital Signs (last 24 hours): Temp Pulse Resp BP Pulse Ox 98 F 76 20 102/67 100 02/06/17 07:40 02/06/17 07:40 02/06/17 07:40 02/06/17 07:40 02/06/17 07:40 Intake and Output: 02/06/17 02/06/17 06:59 18:59 Intake Total 1000 Output Total 600 Balance 400 - Medications Medications: Current Medications Diphenhydramine HCl (Benadryl) 25 mg IVP Q3 PRN PRN Reason: Itching / Pruritus Last Admin: 02/06/17 11:52 Dose: 25 mg Enoxaparin Sodium (Lovenox) 60 mg SC Q12 [facility] Last Admin: 02/06/17 10:50 Dose: 60 mg Ferrous Sulfate (Feosol) 325 mg PO BID [facility] Last Admin: 02/06/17 10:50 Dose: 325 mg Hydromorphone HCl (Dilaudid) 1.5 mg IVP Q3 PRN PRN Reason: Pain, severe (8-10) Last Admin: 02/06/17 11:51 Dose: 1.5 mg Imipenem/Cilastatin Sodium 500 (mg/ Sodium Chloride) 100 mls @ 100 mls/hr IVPB Q6H [facility] Last Admin: 02/06/17 10:49 Dose: 100 mls/hr Daptomycin 360 mg/ Sodium (Chloride) 100 mls @ 100 mls/hr IV Q24H [facility] Stop: 02/14/17 12:01 Last Admin: 02/06/17 12:02 Dose: 100 mls/hr Mesalamine (Delzicol) 800 mg PO TID [facility] Last Admin: 02/06/17 10:53 Dose: 800 mg Pantoprazole Sodium (Protonix Ec Tab) 40 mg PO DAILY [facility] Last Admin: 02/06/17 10:50 Dose: 40 mg - Labs Labs: 02/06/17 05:58 02/06/17 05:58 PT 12.2 SECONDS (9.7-12.2) 02/02/17 16:50 INR 1.1 02/02/17 16:50 APTT 31 SECONDS (21-34) D 02/02/17 16:50 Attending/Attestation - Attestation I have personally seen and examined this patient.: Yes I have fully participated in the care of the patient.: Yes I have reviewed all pertinent clinical information, including history, physical exam and plan: Yes Notes (Text): 02/06/17 13:36 Pt was seen and examined at bedside on 02/05/17 Agree with above note and assessment 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 Plan d.w pt in detail Risk and benefit explained in detail.
--- NOTE | 2017-02-05 15:20 | CP.PCM.PN ---
Subjective - Date & Time of Evaluation Date of Evaluation: 02/05/17 Time of Evaluation: 03:00 - Subjective Subjective: dictated Objective - Vital Signs/Intake and Output Vital Signs (last 24 hours): Temp Pulse Resp BP Pulse Ox 98.4 F 78 20 105/68 100 02/05/17 07:42 02/05/17 07:42 02/05/17 07:42 02/05/17 07:42 02/05/17 07:42 Intake and Output: 02/05/17 02/05/17 06:59 18:59 Intake Total 400 Output Total 550 Balance -150 - Medications Medications: Current Medications Diphenhydramine HCl (Benadryl) 25 mg IVP Q3 PRN PRN Reason: Itching / Pruritus Last Admin: 02/05/17 09:52 Dose: 25 mg Enoxaparin Sodium (Lovenox) 60 mg SC Q12 [facility] Last Admin: 02/05/17 09:55 Dose: 60 mg Ferrous Sulfate (Feosol) 325 mg PO BID [facility] Last Admin: 02/05/17 09:55 Dose: 325 mg Hydromorphone HCl (Dilaudid) 1.5 mg IVP Q3 PRN PRN Reason: Pain, severe (8-10) Last Admin: 02/05/17 12:44 Dose: 1.5 mg Imipenem/Cilastatin Sodium 500 (mg/ Sodium Chloride) 100 mls @ 100 mls/hr IVPB Q6H [facility] Last Admin: 02/05/17 10:18 Dose: 100 mls/hr Daptomycin 360 mg/ Sodium (Chloride) 100 mls @ 100 mls/hr IV Q24H [facility] Stop: 02/14/17 12:01 Last Admin: 02/05/17 14:35 Dose: 100 mls/hr Mesalamine (Delzicol) 800 mg PO TID [facility] Last Admin: 02/05/17 14:36 Dose: 800 mg Methylprednisolone (Medrol) 2 mg PO DAILY [facility] Stop: 02/06/17 10:01 Last Admin: 02/05/17 10:04 Dose: 2 mg Pantoprazole Sodium (Protonix Ec Tab) 40 mg PO DAILY [facility] Last Admin: 02/05/17 09:52 Dose: 40 mg - Labs Labs: 02/02/17 16:50 02/02/17 16:50 PT 12.2 SECONDS (9.7-12.2) 02/02/17 16:50 INR 1.1 02/02/17 16:50 APTT 31 SECONDS (21-34) D 02/02/17 16:50
--- NOTE | 2017-02-05 16:10 | PN ---
DATE: 02/05/2017 SUBJECTIVE: The patient says he still has lot of neck pain. He is on Lovenox as well as on antibiot ics at this time. Also complains of discomfort in the left buttock. Was seen by the surgical team. He says he is draining more, but the wounds are open according to the surgical team. PHYSICAL EXAMINATION: VITAL SIGNS: Now his T-max is 98.4, pulse 78, blood pressure 105/68, respirations are 20. HEENT: Head is atraumatic, normocephalic. NECK: Right neck: He has prominent sternocleidomastoid and complains of pain there; most probably h as a clot. LUNGS: Clear. No crackles or rales present. HEART: S1, S2 regular. ABDOMEN: Soft, nontender. He does have perigluteal abscess between the 2 buttock folds and that has been chronically creeping u p, even though he has had many I and D's. At this time has resistant organisms; hence, he is placed in isolation. Will continue the IV antibio tics. He does have a PICC line on the left arm, which is unremarkable at this time. Would have to b e careful as he did develop a clot. LABORATORY DATA: Labs show white count is 9, hemoglobin 8.5, hematocrit 28; this is from 02/05/2017 however. Will repeat the labs tomorrow. He was changed to daptomycin and imipenem based on his cult ure reports and will repeat labs tomorrow. He has gluteal and perineal abscesses, and also has this new problem of clots in the neck area. Santosh Daniel MD cc: [id number] TT: 02/05/2017 16:09:35 Confirmation # [id number] Dictation # [id number] mn
--- NOTE | 2017-02-05 17:13 | CP.PCM.PN ---
Subjective - Date & Time of Evaluation Date of Evaluation: 02/05/17 Time of Evaluation: 07:40 - Subjective Subjective: clinically same Objective - Vital Signs/Intake and Output Vital Signs (last 24 hours): Temp Pulse Resp BP Pulse Ox 98.6 F 96 H 20 104/64 100 02/05/17 15:00 02/05/17 15:00 02/05/17 15:00 02/05/17 15:00 02/05/17 15:00 Intake and Output: 02/05/17 02/05/17 06:59 18:59 Intake Total 400 Output Total 550 Balance -150 - Medications Medications: Current Medications Diphenhydramine HCl (Benadryl) 25 mg IVP Q3 PRN PRN Reason: Itching / Pruritus Last Admin: 02/05/17 15:57 Dose: 25 mg Enoxaparin Sodium (Lovenox) 60 mg SC Q12 [facility] Last Admin: 02/05/17 09:55 Dose: 60 mg Ferrous Sulfate (Feosol) 325 mg PO BID [facility] Last Admin: 02/05/17 09:55 Dose: 325 mg Hydromorphone HCl (Dilaudid) 1.5 mg IVP Q3 PRN PRN Reason: Pain, severe (8-10) Last Admin: 02/05/17 15:57 Dose: 1.5 mg Imipenem/Cilastatin Sodium 500 (mg/ Sodium Chloride) 100 mls @ 100 mls/hr IVPB Q6H [facility] Last Admin: 02/05/17 15:59 Dose: 100 mls/hr Daptomycin 360 mg/ Sodium (Chloride) 100 mls @ 100 mls/hr IV Q24H [facility] Stop: 02/14/17 12:01 Last Admin: 02/05/17 14:35 Dose: 100 mls/hr Mesalamine (Delzicol) 800 mg PO TID [facility] Last Admin: 02/05/17 14:36 Dose: 800 mg Methylprednisolone (Medrol) 2 mg PO DAILY [facility] Stop: 02/06/17 10:01 Last Admin: 02/05/17 10:04 Dose: 2 mg Pantoprazole Sodium (Protonix Ec Tab) 40 mg PO DAILY [facility] Last Admin: 02/05/17 09:52 Dose: 40 mg - Labs Labs: 02/02/17 16:50 02/02/17 16:50 PT 12.2 SECONDS (9.7-12.2) 02/02/17 16:50 INR 1.1 02/02/17 16:50 APTT 31 SECONDS (21-34) D 02/02/17 16:50 - Constitutional Appears: Well - Head Exam Head Exam: ATRAUMATIC, NORMAL INSPECTION, NORMOCEPHALIC - Eye Exam Eye Exam: EOMI, Normal appearance, PERRL Pupil Exam: NORMAL ACCOMODATION, PERRL - ENT Exam ENT Exam: Mucous Membranes Moist, Normal Exam - Neck Exam Neck Exam: Full ROM, Normal Inspection. absent: Lymphadenopathy - Respiratory Exam Respiratory Exam: Decreased Breath Sounds - Cardiovascular Exam Cardiovascular Exam: REGULAR RHYTHM, +S1, +S2 - GI/Abdominal Exam GI & Abdominal Exam: Soft, Diminished Bowel Sounds - Rectal Exam Rectal Exam: Deferred
[2017-02-06] MEDS: DiphenhydrAMINE 50 mg/ml Inj IVP PRN ×8 (01:42→23:48)
[2017-02-06 06:15] LABS: BASO # 0.1 K/uL (0.0-0.2); BASO % 0.8 % (0.0-2.0); EOS # 0.6 K/uL (0.0-0.7); EOS % 5.7 % (0.0-4.0); HEMOGLOBIN 9.7 g/dL (12.0-18.0); LYMPH # 4.3 K/uL (1.0-4.3); LYMPH % 44.1 % (20.0-40.0); MEAN CELL VOLUME 69.1 fL (80.0-94.0); MEAN CORPUSCULAR HGB CONC 30.4 g/dL (33.0-37.0); MEAN PLATELET VOLUME 7.4 fL (7.2-11.7); MONO # 0.5 K/uL (0.0-0.8); NEUT # 4.3 K/uL (1.8-7.0); NEUT % 44.4 % (50.0-75.0); RBC 4.62 Mil/uL (4.40-5.90); RED CELL DISTRIBUTION WIDTH 25.2 % (11.5-14.5); WHITE BLOOD COUNT 9.8 K/uL (4.8-10.8)
[2017-02-06 06:42] LABS: ALBUMIN 3.8 g/dL (3.5-5.0)
[2017-02-06 06:44] LABS: GFR AFRICAN-AMERICAN > 60; GFR NON-AFRICAN AMERICAN > 60
[2017-02-06 06:45] LABS: ALB/GLOB RATIO 1.1 (1.0-2.1); ALT/SGPT 26 U/L (21-72); AST/SGOT 20 U/L (17-59); BLOOD UREA NITROGEN 9 mg/dL (9-20); CALCIUM 9.2 mg/dl (8.6-10.4)
[2017-02-06] MEDS: Enoxaparin 60 mg Syringe SC SCH ×2 (10:50→21:02)
[2017-02-06] MEDS: Pantoprazole 40 mg EC Tab PO SCH (10:50)
--- NOTE | 2017-02-06 12:11 | CP.PCM.PN ---
Subjective - Date & Time of Evaluation Date of Evaluation: 02/06/17 Time of Evaluation: 07:40 - Subjective Subjective: clinically same Objective - Vital Signs/Intake and Output Vital Signs (last 24 hours): Temp Pulse Resp BP Pulse Ox 98 F 76 20 102/67 100 02/06/17 07:40 02/06/17 07:40 02/06/17 07:40 02/06/17 07:40 02/06/17 07:40 Intake and Output: 02/06/17 02/06/17 06:59 18:59 Intake Total 1000 Output Total 600 Balance 400 - Medications Medications: Current Medications Diphenhydramine HCl (Benadryl) 25 mg IVP Q3 PRN PRN Reason: Itching / Pruritus Last Admin: 02/06/17 11:52 Dose: 25 mg Enoxaparin Sodium (Lovenox) 60 mg SC Q12 [facility] Last Admin: 02/06/17 10:50 Dose: 60 mg Ferrous Sulfate (Feosol) 325 mg PO BID [facility] Last Admin: 02/06/17 10:50 Dose: 325 mg Hydromorphone HCl (Dilaudid) 1.5 mg IVP Q3 PRN PRN Reason: Pain, severe (8-10) Last Admin: 02/06/17 11:51 Dose: 1.5 mg Imipenem/Cilastatin Sodium 500 (mg/ Sodium Chloride) 100 mls @ 100 mls/hr IVPB Q6H [facility] Last Admin: 02/06/17 10:49 Dose: 100 mls/hr Daptomycin 360 mg/ Sodium (Chloride) 100 mls @ 100 mls/hr IV Q24H [facility] Stop: 02/14/17 12:01 Last Admin: 02/06/17 12:02 Dose: 100 mls/hr Mesalamine (Delzicol) 800 mg PO TID [facility] Last Admin: 02/06/17 10:53 Dose: 800 mg Pantoprazole Sodium (Protonix Ec Tab) 40 mg PO DAILY [facility] Last Admin: 02/06/17 10:50 Dose: 40 mg - Labs Labs: 02/06/17 05:58 02/06/17 05:58 PT 12.2 SECONDS (9.7-12.2) 02/02/17 16:50 INR 1.1 02/02/17 16:50 APTT 31 SECONDS (21-34) D 02/02/17 16:50 - Constitutional Appears: Well - Head Exam Head Exam: ATRAUMATIC, NORMAL INSPECTION, NORMOCEPHALIC - Eye Exam Eye Exam: EOMI, Normal appearance, PERRL Pupil Exam: NORMAL ACCOMODATION, PERRL - ENT Exam ENT Exam: Mucous Membranes Moist, Normal Exam - Neck Exam Neck Exam: Full ROM, Normal Inspection. absent: Lymphadenopathy - Respiratory Exam Respiratory Exam: Decreased Breath Sounds - Cardiovascular Exam Cardiovascular Exam: REGULAR RHYTHM, +S1, +S2 - GI/Abdominal Exam GI & Abdominal Exam: Soft, Diminished Bowel Sounds - Rectal Exam Rectal Exam: Deferred
--- NOTE | 2017-02-06 15:14 | CP.PCM.PN ---
Subjective - Date & Time of Evaluation Date of Evaluation: 02/06/17 Time of Evaluation: 03:00 - Subjective Subjective: dictated Objective - Vital Signs/Intake and Output Vital Signs (last 24 hours): Temp Pulse Resp BP Pulse Ox 98 F 76 20 102/67 100 02/06/17 07:40 02/06/17 07:40 02/06/17 07:40 02/06/17 07:40 02/06/17 07:40 Intake and Output: 02/06/17 02/06/17 06:59 18:59 Intake Total 1000 550 Output Total 600 750 Balance 400 -200 - Medications Medications: Current Medications Ascorbic Acid (Vitamin C 500 Mg Tab) 500 mg PO DAILY [facility] Cyanocobalamin (Vitamin B12 1000 Mcg Tab) 1,000 mcg PO DAILY [facility] Diphenhydramine HCl (Benadryl) 25 mg IVP Q3 PRN PRN Reason: Itching / Pruritus Last Admin: 02/06/17 14:53 Dose: 25 mg Enoxaparin Sodium (Lovenox) 60 mg SC Q12 [facility] Last Admin: 02/06/17 10:50 Dose: 60 mg Ferrous Sulfate (Feosol) 325 mg PO BID [facility] Last Admin: 02/06/17 10:50 Dose: 325 mg Hydromorphone HCl (Dilaudid) 1.5 mg IVP Q3 PRN PRN Reason: Pain, severe (8-10) Last Admin: 02/06/17 14:54 Dose: 1.5 mg Imipenem/Cilastatin Sodium 500 (mg/ Sodium Chloride) 100 mls @ 100 mls/hr IVPB Q6H [facility] Last Admin: 02/06/17 10:49 Dose: 100 mls/hr Daptomycin 360 mg/ Sodium (Chloride) 100 mls @ 100 mls/hr IV Q24H [facility] Stop: 02/14/17 12:01 Last Admin: 02/06/17 12:02 Dose: 100 mls/hr Mesalamine (Delzicol) 800 mg PO TID [facility] Last Admin: 02/06/17 13:39 Dose: 800 mg Pantoprazole Sodium (Protonix Ec Tab) 40 mg PO DAILY [facility] Last Admin: 02/06/17 10:50 Dose: 40 mg - Labs Labs: 02/06/17 05:58 02/06/17 05:58 PT 12.2 SECONDS (9.7-12.2) 02/02/17 16:50 INR 1.1 02/02/17 16:50 APTT 31 SECONDS (21-34) D 02/02/17 16:50
--- NOTE | 2017-02-07 00:17 | PN ---
DATE: 02/06/2017 SUBJECTIVE: The patient remains in pain. He says he is not able to turn his neck to the right side and he has to hold it with the hand to turn it on the right, so that there is less pain. He is on an ticoagulants and he still is draining from the abscesses in the perineal area, but they are open he i s told. He also wanted to take a shower, but I will defer it to the surgeon as well as to Dr. Barrett. He does have a PICC line also that needs to be secured. PHYSICAL EXAMINATION: VITAL SIGNS: T-max is 98, pulse 89, blood pressure 100/66, respirations 20. HEENT: Head is atraumatic, normocephalic. NECK: Supple otherwise except limited movement on the right side, but there is no redness or externa l swelling. LUNGS: Clear. HEART: S1, S2 is regular. No murmurs appreciated. ABDOMEN: Soft, nontender. Colostomy is present. He is concerned about those capsules and tablets s till showing up in his colostomy bag. Remains with perineal moisture as well as drainage in the [place] area and the groin area. EXTREMITIES: Have no edema, clubbing or cyanosis otherwise. LABORATORY DATA: Noted. Labs show white count is 9.8, hemoglobin 9.7, hematocrit 31.9, and platelet s are 570. BUN is 9, creatinine 0.6. The repeat culture came out to be Proteus and imipenem is one sensitivity. We will leave it for now and needs renewal of the medications, will renew those and jaylene l follow. Santosh Daniel MD cc: [id number] TT: 02/07/2017 00:15:59 Confirmation # [id number] Dictation # [id number]
[2017-02-07] MEDS: DiphenhydrAMINE 50 mg/ml Inj IVP PRN ×7 (03:02→21:19)
[2017-02-07] MEDS: Pantoprazole 40 mg EC Tab PO SCH (10:11)
[2017-02-07] MEDS: Enoxaparin 60 mg Syringe SC SCH ×2 (10:13→21:20)
--- NOTE | 2017-02-07 10:14 | CP.PCM.PN ---
Subjective - Date & Time of Evaluation Date of Evaluation: 02/07/17 Time of Evaluation: 07:40 - Subjective Subjective: clinically same Objective - Vital Signs/Intake and Output Vital Signs (last 24 hours): Temp Pulse Resp BP Pulse Ox 98.6 F 107 H 20 106/59 L 100 02/07/17 00:00 02/07/17 00:00 02/07/17 00:00 02/07/17 00:00 02/07/17 00:00 Intake and Output: 02/07/17 02/07/17 06:59 18:59 Intake Total 1000 Output Total 1999 Balance -1000 - Medications Medications: Current Medications Ascorbic Acid (Vitamin C 500 Mg Tab) 500 mg PO DAILY [facility] Cyanocobalamin (Vitamin B12 1000 Mcg Tab) 1,000 mcg PO DAILY [facility] Diphenhydramine HCl (Benadryl) 25 mg IVP Q3 PRN PRN Reason: Itching / Pruritus Last Admin: 02/07/17 08:55 Dose: 25 mg Enoxaparin Sodium (Lovenox) 60 mg SC Q12 [facility] Last Admin: 02/06/17 21:02 Dose: 60 mg Ferrous Sulfate (Feosol) 325 mg PO BID [facility] Last Admin: 02/06/17 17:24 Dose: 325 mg Hydromorphone HCl (Dilaudid) 1.5 mg IVP Q3 PRN PRN Reason: Pain, severe (8-10) Last Admin: 02/07/17 08:57 Dose: 1.5 mg Imipenem/Cilastatin Sodium 500 (mg/ Sodium Chloride) 100 mls @ 100 mls/hr IVPB Q6H [facility] Last Admin: 02/07/17 04:04 Dose: 100 mls/hr Daptomycin 360 mg/ Sodium (Chloride) 100 mls @ 100 mls/hr IV Q24H [facility] Stop: 02/14/17 12:01 Last Admin: 02/06/17 12:02 Dose: 100 mls/hr Mesalamine (Delzicol) 800 mg PO TID [facility] Last Admin: 02/06/17 17:24 Dose: 800 mg Pantoprazole Sodium (Protonix Ec Tab) 40 mg PO DAILY [facility] Last Admin: 02/06/17 10:50 Dose: 40 mg - Labs Labs: 02/06/17 05:58 02/06/17 05:58 PT 12.2 SECONDS (9.7-12.2) 02/02/17 16:50 INR 1.1 02/02/17 16:50 APTT 31 SECONDS (21-34) D 02/02/17 16:50 - Constitutional Appears: Well - Head Exam Head Exam: ATRAUMATIC, NORMAL INSPECTION, NORMOCEPHALIC - Eye Exam Eye Exam: EOMI, Normal appearance, PERRL Pupil Exam: NORMAL ACCOMODATION, PERRL - ENT Exam ENT Exam: Mucous Membranes Moist, Normal Exam - Neck Exam Neck Exam: Full ROM, Normal Inspection. absent: Lymphadenopathy - Respiratory Exam Respiratory Exam: Decreased Breath Sounds - Cardiovascular Exam Cardiovascular Exam: REGULAR RHYTHM, +S1, +S2 - GI/Abdominal Exam GI & Abdominal Exam: Soft, Diminished Bowel Sounds - Rectal Exam Rectal Exam: Deferred
[2017-02-08] MEDS: DiphenhydrAMINE 50 mg/ml Inj IVP PRN ×8 (00:22→21:30)
[2017-02-08] MEDS: Enoxaparin 60 mg Syringe SC SCH ×2 (09:30→21:43)
[2017-02-08] MEDS: Pantoprazole 40 mg EC Tab PO SCH (09:31)
[2017-02-08] MEDS: HYDROmorphone 1 mg/ml ISec IVP PRN (21:30)
[2017-02-09] MEDS: HYDROmorphone 1 mg/ml ISec IVP PRN ×8 (00:30→22:08)
[2017-02-09] MEDS: DiphenhydrAMINE 50 mg/ml Inj IVP PRN ×8 (00:31→22:06)
[2017-02-09] MEDS: Pantoprazole 40 mg EC Tab PO SCH (09:27)
[2017-02-09] MEDS: Enoxaparin 60 mg Syringe SC SCH (10:00)
--- NOTE | 2017-02-09 15:56 | CP.PCM.PN ---
Subjective - Date & Time of Evaluation Date of Evaluation: 02/09/17 Time of Evaluation: 07:40 - Subjective Subjective: clinically same Objective - Vital Signs/Intake and Output Vital Signs (last 24 hours): Temp Pulse Resp BP Pulse Ox 98.4 F 94 H 20 101/70 97 02/09/17 07:31 02/09/17 07:31 02/09/17 07:31 02/09/17 07:31 02/09/17 07:31 Intake and Output: 02/09/17 02/09/17 06:59 18:59 Intake Total 850 700 Output Total 1050 300 Balance -200 400 - Medications Medications: Current Medications Ascorbic Acid (Vitamin C 500 Mg Tab) 500 mg PO DAILY [facility] Last Admin: 02/09/17 09:27 Dose: 500 mg Cyanocobalamin (Vitamin B12 1000 Mcg Tab) 1,000 mcg PO DAILY [facility] Last Admin: 02/09/17 09:27 Dose: 1,000 mcg Diphenhydramine HCl (Benadryl) 25 mg IVP Q3 PRN PRN Reason: Itching / Pruritus Last Admin: 02/09/17 12:57 Dose: 25 mg Ferrous Sulfate (Feosol) 325 mg PO BID [facility] Last Admin: 02/09/17 09:27 Dose: 325 mg Hydromorphone HCl (Dilaudid) 1.5 mg IVP Q3 PRN PRN Reason: Pain, severe (8-10) Last Admin: 02/09/17 12:59 Dose: 1.5 mg Imipenem/Cilastatin Sodium 500 (mg/ Sodium Chloride) 100 mls @ 100 mls/hr IVPB Q6H [facility] Last Admin: 02/09/17 09:24 Dose: 100 mls/hr Daptomycin 360 mg/ Sodium (Chloride) 100 mls @ 100 mls/hr IV Q24H [facility] Stop: 02/14/17 12:01 Last Admin: 02/09/17 12:16 Dose: 100 mls/hr Mesalamine (Delzicol) 800 mg PO TID [facility] Last Admin: 02/09/17 13:54 Dose: 800 mg Pantoprazole Sodium (Protonix Ec Tab) 40 mg PO DAILY [facility] Last Admin: 02/09/17 09:27 Dose: 40 mg - Labs Labs: 02/06/17 05:58 02/06/17 05:58 PT 12.2 SECONDS (9.7-12.2) 02/02/17 16:50 INR 1.1 02/02/17 16:50 APTT 31 SECONDS (21-34) D 02/02/17 16:50 - Constitutional Appears: Well - Head Exam Head Exam: ATRAUMATIC, NORMAL INSPECTION, NORMOCEPHALIC - Eye Exam Eye Exam: EOMI, Normal appearance, PERRL Pupil Exam: NORMAL ACCOMODATION, PERRL - ENT Exam ENT Exam: Mucous Membranes Moist, Normal Exam - Neck Exam Neck Exam: Full ROM, Normal Inspection. absent: Lymphadenopathy - Respiratory Exam Respiratory Exam: Decreased Breath Sounds - Cardiovascular Exam Cardiovascular Exam: REGULAR RHYTHM, +S1, +S2 - GI/Abdominal Exam GI & Abdominal Exam: Soft, Diminished Bowel Sounds - Rectal Exam Rectal Exam: Deferred
[2017-02-10] MEDS: DiphenhydrAMINE 50 mg/ml Inj IVP PRN ×8 (01:20→22:29)
[2017-02-10] MEDS: HYDROmorphone 1 mg/ml ISec IVP PRN ×8 (01:20→22:30)
[2017-02-10] MEDS: Pantoprazole 40 mg EC Tab PO SCH (09:36)
--- NOTE | 2017-02-10 12:19 | CP.PCM.PN ---
Subjective - Date & Time of Evaluation Date of Evaluation: 02/10/17 Time of Evaluation: 11:40 - Subjective Subjective: dictated Objective - Vital Signs/Intake and Output Vital Signs (last 24 hours): Temp Pulse Resp BP Pulse Ox 98.1 F 77 20 125/74 97 02/10/17 08:16 02/10/17 08:16 02/10/17 08:16 02/10/17 08:16 02/10/17 08:16 Intake and Output: 02/10/17 02/10/17 06:59 18:59 Intake Total 990 Output Total 1100 Balance -110 - Medications Medications: Current Medications Ascorbic Acid (Vitamin C 500 Mg Tab) 500 mg PO DAILY [facility] Last Admin: 02/10/17 09:37 Dose: 500 mg Cyanocobalamin (Vitamin B12 1000 Mcg Tab) 1,000 mcg PO DAILY [facility] Last Admin: 02/10/17 09:37 Dose: 1,000 mcg Diphenhydramine HCl (Benadryl) 25 mg IVP Q3 PRN PRN Reason: Itching / Pruritus Last Admin: 02/10/17 10:28 Dose: 25 mg Ferrous Sulfate (Feosol) 325 mg PO BID [facility] Last Admin: 02/10/17 09:36 Dose: 325 mg Hydromorphone HCl (Dilaudid) 1.5 mg IVP Q3 PRN PRN Reason: Pain, severe (8-10) Last Admin: 02/10/17 10:28 Dose: 1.5 mg Imipenem/Cilastatin Sodium 500 (mg/ Sodium Chloride) 100 mls @ 100 mls/hr IVPB Q6H [facility] Last Admin: 02/10/17 10:29 Dose: 100 mls/hr Daptomycin 360 mg/ Sodium (Chloride) 100 mls @ 100 mls/hr IV Q24H [facility] Stop: 02/14/17 12:01 Last Admin: 02/10/17 11:06 Dose: 100 mls/hr Mesalamine (Delzicol) 800 mg PO TID [facility] Last Admin: 02/10/17 09:37 Dose: 800 mg Pantoprazole Sodium (Protonix Ec Tab) 40 mg PO DAILY [facility] Last Admin: 02/10/17 09:36 Dose: 40 mg - Labs Labs: 02/06/17 05:58 02/06/17 05:58 PT 12.2 SECONDS (9.7-12.2) 02/02/17 16:50 INR 1.1 02/02/17 16:50 APTT 31 SECONDS (21-34) D 02/02/17 16:50
[2017-02-10] MEDS: Enoxaparin 60 mg Syringe SC SCH ×2 (13:26→21:40)
[2017-02-10 14:21] LABS: BASO # 0.1 K/uL (0.0-0.2); BASO % 0.8 % (0.0-2.0); EOS # 0.4 K/uL (0.0-0.7); EOS % 4.7 % (0.0-4.0); HEMOGLOBIN 9.9 g/dL (12.0-18.0); LYMPH # 2.8 K/uL (1.0-4.3); LYMPH % 31.2 % (20.0-40.0); MEAN CELL VOLUME 69.5 fL (80.0-94.0); MEAN CORPUSCULAR HEMOGLOBIN 20.5 pg (27.0-31.0); MEAN CORPUSCULAR HGB CONC 29.5 g/dL (33.0-37.0); MEAN PLATELET VOLUME 8.1 fL (7.2-11.7); MONO # 0.7 K/uL (0.0-0.8); MONO % 7.8 % (0.0-10.0); NEUT % 55.5 % (50.0-75.0); NRBC % 0.1 % (0.0-2.0); RBC 4.82 Mil/uL (4.40-5.90); RED CELL DISTRIBUTION WIDTH 24.6 % (11.5-14.5)
[2017-02-10 14:43] LABS: ALBUMIN 3.7 g/dL (3.5-5.0)
[2017-02-10 14:45] LABS: GFR AFRICAN-AMERICAN > 60; GFR NON-AFRICAN AMERICAN > 60
[2017-02-10 14:46] LABS: ALB/GLOB RATIO 1.1 (1.0-2.1); ALT/SGPT 42 U/L (21-72); AST/SGOT 43 U/L (17-59); BLOOD UREA NITROGEN 10 mg/dL (9-20); CALCIUM 8.9 mg/dl (8.6-10.4)
--- NOTE | 2017-02-10 15:17 | CP.PCM.PN ---
Subjective - Date & Time of Evaluation Date of Evaluation: 02/10/17 Time of Evaluation: 07:40 - Subjective Subjective: clinically same Objective - Vital Signs/Intake and Output Vital Signs (last 24 hours): Temp Pulse Resp BP Pulse Ox 98.1 F 77 20 125/74 97 02/10/17 08:16 02/10/17 08:16 02/10/17 08:16 02/10/17 08:16 02/10/17 08:16 Intake and Output: 02/10/17 02/10/17 06:59 18:59 Intake Total 990 600 Output Total 1100 1450 Balance -110 -850 - Medications Medications: Current Medications Ascorbic Acid (Vitamin C 500 Mg Tab) 500 mg PO DAILY [facility] Last Admin: 02/10/17 09:37 Dose: 500 mg Cyanocobalamin (Vitamin B12 1000 Mcg Tab) 1,000 mcg PO DAILY [facility] Last Admin: 02/10/17 09:37 Dose: 1,000 mcg Diphenhydramine HCl (Benadryl) 25 mg IVP Q3 PRN PRN Reason: Itching / Pruritus Last Admin: 02/10/17 13:24 Dose: 25 mg Enoxaparin Sodium (Lovenox) 60 mg SC Q12 [facility] Last Admin: 02/10/17 13:26 Dose: 60 mg Ferrous Sulfate (Feosol) 325 mg PO BID [facility] Last Admin: 02/10/17 09:36 Dose: 325 mg Hydromorphone HCl (Dilaudid) 1.5 mg IVP Q3 PRN PRN Reason: Pain, severe (8-10) Last Admin: 02/10/17 13:24 Dose: 1.5 mg Imipenem/Cilastatin Sodium 500 (mg/ Sodium Chloride) 100 mls @ 100 mls/hr IVPB Q6H [facility] Last Admin: 02/10/17 10:29 Dose: 100 mls/hr Daptomycin 360 mg/ Sodium (Chloride) 100 mls @ 100 mls/hr IV Q24H [facility] Stop: 02/14/17 12:01 Last Admin: 02/10/17 11:06 Dose: 100 mls/hr Mesalamine (Delzicol) 800 mg PO TID [facility] Last Admin: 02/10/17 13:25 Dose: 800 mg Pantoprazole Sodium (Protonix Ec Tab) 40 mg PO DAILY [facility] Last Admin: 02/10/17 09:36 Dose: 40 mg - Labs Labs: 02/10/17 14:13 02/10/17 14:13 PT 12.2 SECONDS (9.7-12.2) 02/02/17 16:50 INR 1.1 02/02/17 16:50 APTT 31 SECONDS (21-34) D 02/02/17 16:50 - Constitutional Appears: Well - Head Exam Head Exam: ATRAUMATIC, NORMAL INSPECTION, NORMOCEPHALIC - Eye Exam Eye Exam: EOMI, Normal appearance, PERRL Pupil Exam: NORMAL ACCOMODATION, PERRL - ENT Exam ENT Exam: Mucous Membranes Moist, Normal Exam - Neck Exam Neck Exam: Full ROM, Normal Inspection. absent: Lymphadenopathy - Respiratory Exam Respiratory Exam: Decreased Breath Sounds - Cardiovascular Exam Cardiovascular Exam: REGULAR RHYTHM, +S1, +S2 - GI/Abdominal Exam GI & Abdominal Exam: Soft, Diminished Bowel Sounds - Rectal Exam Rectal Exam: Deferred
[2017-02-11] MEDS: HYDROmorphone 1 mg/ml ISec IVP PRN ×8 (01:35→23:45)
[2017-02-11] MEDS: DiphenhydrAMINE 50 mg/ml Inj IVP PRN ×8 (01:35→23:45)
--- NOTE | 2017-02-11 06:50 | PN ---
DATE: 02/10/2017 The patient says he is still having neck pain. He still has right sternocleidomastoid muscle i nsertion appears very prominent. He still continues to have pain. He still has abscesses in the per ineum and I am surprised that they are not healing. He is now off steroids and has and has bee n on Lovenox. He is on daptomycin as well as imipenem and still continues to develop abscesses. He remains, however, afebrile. He is in lot of pain. PHYSICAL EXAMINATION: VITAL SIGNS: T-max is 98.1, pulse 77, blood pressure 125/74, respirations are 20. HEENT: Head is atraumatic, normocephalic. NECK: Supple, but has prominence and a knot sort of on the right sternocleidomastoid. LUNGS: Clear. HEART: S1, S2 regular. ABDOMEN: Soft, nontender. Colostomy is present and pills are still coming out in his colostomy. Un clear how his absorption is as he has Crohn's and has these abscesses which are developing in the per ineum. SKIN: On the back, he still has excoriation of the skin between the buttock folds and there is oozin g. Needs wound care daily aggressively and also will probably need an I and D now again. White count, we have not repeated it again, so we will follow that and we will continue the antibioti c. I do not have any good suggestion here now as he is on strong antibiotics. He is off steroids. He is, however, on mesalamine. I do not know if it could be a problem in healing. We will continue these medications, antibiotics for now. His PICC line in the left arm appears fine at this time and he needs to be followed. Santosh Daniel MD cc: [id number] TT: 02/10/2017 12:52:34 Confirmation # [id number] Dictation # [id number]
[2017-02-11 06:52] LABS: ALBUMIN 3.7 g/dL (3.5-5.0)
[2017-02-11 06:54] LABS: GFR AFRICAN-AMERICAN > 60; GFR NON-AFRICAN AMERICAN > 60
[2017-02-11 06:55] LABS: ALB/GLOB RATIO 1.1 (1.0-2.1); ALT/SGPT 32 U/L (21-72); AST/SGOT 36 U/L (17-59); BLOOD UREA NITROGEN 10 mg/dL (9-20)
[2017-02-11 06:56] LABS: BASO # 0.1 K/uL (0.0-0.2); CALCIUM 8.5 mg/dl (8.6-10.4); EOS # 0.5 K/uL (0.0-0.7); EOS % 5.3 % (0.0-4.0); HEMOGLOBIN 10.1 g/dL (12.0-18.0); LYMPH # 3.6 K/uL (1.0-4.3); LYMPH % 41.6 % (20.0-40.0); MEAN CELL VOLUME 69.7 fL (80.0-94.0); MEAN CORPUSCULAR HEMOGLOBIN 20.7 pg (27.0-31.0); MEAN CORPUSCULAR HGB CONC 29.7 g/dL (33.0-37.0); MEAN PLATELET VOLUME 8.1 fL (7.2-11.7); MONO # 0.6 K/uL (0.0-0.8); MONO % 6.7 % (0.0-10.0); NEUT # 3.9 K/uL (1.8-7.0); NEUT % 45.4 % (50.0-75.0); RBC 4.86 Mil/uL (4.40-5.90); RED CELL DISTRIBUTION WIDTH 24.7 % (11.5-14.5); WHITE BLOOD COUNT 8.5 K/uL (4.8-10.8)
[2017-02-11] MEDS: Enoxaparin 60 mg Syringe SC SCH ×2 (11:03→21:48)
[2017-02-11] MEDS: Pantoprazole 40 mg EC Tab PO SCH (11:08)
--- NOTE | 2017-02-11 16:45 | CP.PCM.PN ---
Subjective - Date & Time of Evaluation Date of Evaluation: 02/11/17 Time of Evaluation: 07:40 - Subjective Subjective: clinically same Objective - Vital Signs/Intake and Output Vital Signs (last 24 hours): Temp Pulse Resp BP Pulse Ox 98.7 F 98 H 20 109/77 100 02/11/17 15:00 02/11/17 15:00 02/11/17 15:00 02/11/17 15:00 02/11/17 15:00 Intake and Output: 02/11/17 02/11/17 06:59 18:59 Intake Total 790 Output Total 1500 Balance -710 - Medications Medications: Current Medications Ascorbic Acid (Vitamin C 500 Mg Tab) 500 mg PO DAILY [facility] Last Admin: 02/11/17 11:08 Dose: 500 mg Cyanocobalamin (Vitamin B12 1000 Mcg Tab) 1,000 mcg PO DAILY [facility] Last Admin: 02/11/17 11:08 Dose: 1,000 mcg Diphenhydramine HCl (Benadryl) 25 mg IVP Q3 PRN PRN Reason: Itching / Pruritus Last Admin: 02/11/17 14:10 Dose: 25 mg Enoxaparin Sodium (Lovenox) 60 mg SC Q12 [facility] Last Admin: 02/11/17 11:03 Dose: 60 mg Ferrous Sulfate (Feosol) 325 mg PO BID [facility] Last Admin: 02/11/17 11:02 Dose: 325 mg Hydromorphone HCl (Dilaudid) 1.5 mg IVP Q3 PRN PRN Reason: Pain, severe (8-10) Last Admin: 02/11/17 14:11 Dose: 1.5 mg Imipenem/Cilastatin Sodium 500 (mg/ Sodium Chloride) 100 mls @ 100 mls/hr IVPB Q6H [facility] Last Admin: 02/11/17 16:23 Dose: 100 mls/hr Daptomycin 360 mg/ Sodium (Chloride) 100 mls @ 100 mls/hr IV Q24H [facility] Stop: 02/14/17 12:01 Last Admin: 02/11/17 11:17 Dose: 100 mls/hr Mesalamine (Delzicol) 800 mg PO TID [facility] Last Admin: 02/11/17 14:12 Dose: 800 mg Pantoprazole Sodium (Protonix Ec Tab) 40 mg PO DAILY [facility] Last Admin: 06/21/17 11:08 Dose: 40 mg - Labs Labs: 02/11/17 06:23 02/11/17 06:23 PT 12.2 SECONDS (9.7-12.2) 02/02/17 16:50 INR 1.1 02/02/17 16:50 APTT 31 SECONDS (21-34) D 02/02/17 16:50
--- NOTE | 2017-02-11 17:04 | CP.PCM.PN ---
Subjective - Date & Time of Evaluation Date of Evaluation: 02/11/17 Time of Evaluation: 10:00 - Subjective Subjective: PGY2 Medicine Note- Dr. Barrett's service: Patient seen and examined. Patient with complaint of undigested food and medications in his colostomy bag. Patient also with complaint of pain in right side of neck. Objective - Vital Signs/Intake and Output Vital Signs (last 24 hours): Temp Pulse Resp BP Pulse Ox 98.7 F 98 H 20 109/77 100 02/11/17 15:00 02/11/17 15:00 02/11/17 15:00 02/11/17 15:00 02/11/17 15:00 Intake and Output: 02/11/17 02/11/17 06:59 18:59 Intake Total 790 Output Total 1500 Balance -710 - Medications Medications: Current Medications Ascorbic Acid (Vitamin C 500 Mg Tab) 500 mg PO DAILY [facility] Last Admin: 02/11/17 11:08 Dose: 500 mg Cyanocobalamin (Vitamin B12 1000 Mcg Tab) 1,000 mcg PO DAILY [facility] Last Admin: 02/11/17 11:08 Dose: 1,000 mcg Diphenhydramine HCl (Benadryl) 25 mg IVP Q3 PRN PRN Reason: Itching / Pruritus Last Admin: 02/11/17 14:10 Dose: 25 mg Enoxaparin Sodium (Lovenox) 60 mg SC Q12 [facility] Last Admin: 02/11/17 11:03 Dose: 60 mg Ferrous Sulfate (Feosol) 325 mg PO BID [facility] Last Admin: 02/11/17 11:02 Dose: 325 mg Hydromorphone HCl (Dilaudid) 1.5 mg IVP Q3 PRN PRN Reason: Pain, severe (8-10) Last Admin: 02/11/17 14:11 Dose: 1.5 mg Imipenem/Cilastatin Sodium 500 (mg/ Sodium Chloride) 100 mls @ 100 mls/hr IVPB Q6H [facility] Last Admin: 02/11/17 16:23 Dose: 100 mls/hr Daptomycin 360 mg/ Sodium (Chloride) 100 mls @ 100 mls/hr IV Q24H [facility] Stop: 02/14/17 12:01 Last Admin: 02/11/17 11:17 Dose: 100 mls/hr Mesalamine (Delzicol) 800 mg PO TID [facility] Last Admin: 02/11/17 14:12 Dose: 800 mg Pantoprazole Sodium (Protonix Ec Tab) 40 mg PO DAILY [facility] Last Admin: 02/11/17 11:08 Dose: 40 mg - Labs Labs: 02/11/17 06:23 02/11/17 06:23 PT 12.2 SECONDS (9.7-12.2) 02/02/17 16:50 INR 1.1 02/02/17 16:50 APTT 31 SECONDS (21-34) D 02/02/17 16:50 - Constitutional Appears: Non-toxic, No Acute Distress - Head Exam Head Exam: ATRAUMATIC, NORMOCEPHALIC - Eye Exam Eye Exam: EOMI - ENT Exam ENT Exam: Mucous Membranes Moist - Respiratory Exam Respiratory Exam: Clear to Ausculation Bilateral, NORMAL BREATHING PATTERN - Cardiovascular Exam Cardiovascular Exam: +S1, +S2 - GI/Abdominal Exam GI & Abdominal Exam: Soft, Normal Bowel Sounds. absent: Tenderness Additional comments: colostomy with undigested food and medications - Extremities Exam Extremities Exam: absent: Pedal Edema - Neurological Exam Neurological Exam: Alert, Awake - Psychiatric Exam Psychiatric exam: Normal Affect - Skin Skin Exam: Warm Assessment and Plan - Assessment and Plan (Free Text) Assessment: Venous thrombosis Venous doppler: Acute thrombosis Right IJ, subclavian, axillary veins continue therapeutic lovenox 60mg q12 Dr. Chung consulted-no surgical intervention at this time Multiple skin abscesses Continue primaxin q6h, daptomycin q24h cultures positive for proteus mirabilis, E. coli, VRE Dr. Daniel, ID, on the case Crohn's disease continue mesalamine 800mg PO TID Anemia continue Ferrous sulfate 325mg PO BID Prophylactic measure protonix 40mg PO daily therapeutic Lovenox All medical management per Dr. Barrett
[2017-02-12] MEDS: HYDROmorphone 1 mg/ml ISec IVP PRN ×7 (02:50→21:03)
[2017-02-12] MEDS: DiphenhydrAMINE 50 mg/ml Inj IVP PRN ×7 (02:50→21:01)
[2017-02-12 08:06] LABS: ALBUMIN 3.4 g/dL (3.5-5.0)
[2017-02-12 08:08] LABS: GFR AFRICAN-AMERICAN > 60; GFR NON-AFRICAN AMERICAN > 60
[2017-02-12 08:09] LABS: ALT/SGPT 40 U/L (21-72); AST/SGOT 38 U/L (17-59); BLOOD UREA NITROGEN 6 mg/dL (9-20); CALCIUM 8.6 mg/dl (8.6-10.4)
[2017-02-12 08:10] LABS: MAGNESIUM 1.6 mg/dL (1.6-2.3)
[2017-02-12 08:25] LABS: BASO # 0.1 K/uL (0.0-0.2); BASO % 0.9 % (0.0-2.0); EOS # 0.4 K/uL (0.0-0.7); EOS % 4.1 % (0.0-4.0); HEMOGLOBIN 9.7 g/dL (12.0-18.0); LYMPH # 3.5 K/uL (1.0-4.3); LYMPH % 39.1 % (20.0-40.0); MEAN CELL VOLUME 70.5 fL (80.0-94.0); MEAN CORPUSCULAR HGB CONC 29.7 g/dL (33.0-37.0); MEAN PLATELET VOLUME 8.2 fL (7.2-11.7); MONO # 0.5 K/uL (0.0-0.8); MONO % 5.7 % (0.0-10.0); NEUT # 4.5 K/uL (1.8-7.0); NEUT % 50.2 % (50.0-75.0); NRBC % 0.1 % (0.0-2.0); RBC 4.62 Mil/uL (4.40-5.90); RED CELL DISTRIBUTION WIDTH 24.3 % (11.5-14.5)
[2017-02-12] MEDS: Pantoprazole 40 mg EC Tab PO SCH (09:24)
[2017-02-12] MEDS: Enoxaparin 60 mg Syringe SC SCH ×2 (09:24→21:09)
--- NOTE | 2017-02-12 15:18 | CP.PCM.PN ---
Subjective - Date & Time of Evaluation Date of Evaluation: 02/12/17 Time of Evaluation: 10:00 - Subjective Subjective: PGY2- Medicine Note- Dr. Barrett's service Patient seen and examined. Patient reports more liquid stools yesterday evening. Patient still reporting undigested appearing pills in colostomy. Patient also reports drainage from perineal abscess as well as pain on buttocks. Objective - Vital Signs/Intake and Output Vital Signs (last 24 hours): Temp Pulse Resp BP Pulse Ox 98.5 F 85 20 101/63 99 02/12/17 07:42 02/12/17 07:42 02/12/17 07:42 02/12/17 07:42 02/12/17 07:42 Intake and Output: 02/12/17 02/12/17 06:59 18:59 Intake Total 1260 800 Output Total 1400 Balance 1260 -600 - Medications Medications: Current Medications Ascorbic Acid (Vitamin C 500 Mg Tab) 500 mg PO DAILY [facility] Last Admin: 02/12/17 09:24 Dose: 500 mg Cyanocobalamin (Vitamin B12 1000 Mcg Tab) 1,000 mcg PO DAILY [facility] Last Admin: 02/12/17 09:24 Dose: 1,000 mcg Diphenhydramine HCl (Benadryl) 25 mg IVP Q3 PRN PRN Reason: Itching / Pruritus Last Admin: 02/12/17 15:03 Dose: 25 mg Enoxaparin Sodium (Lovenox) 60 mg SC Q12 [facility] Last Admin: 02/12/17 09:24 Dose: 60 mg Ferrous Sulfate (Feosol) 325 mg PO BID [facility] Last Admin: 02/12/17 09:25 Dose: 325 mg Hydromorphone HCl (Dilaudid) 1.5 mg IVP Q3 PRN PRN Reason: Pain, severe (8-10) Last Admin: 02/12/17 15:01 Dose: 1.5 mg Imipenem/Cilastatin Sodium 500 (mg/ Sodium Chloride) 100 mls @ 100 mls/hr IVPB Q6H [facility] Last Admin: 02/12/17 09:23 Dose: 100 mls/hr Daptomycin 360 mg/ Sodium (Chloride) 100 mls @ 100 mls/hr IV Q24H [facility] Stop: 02/14/17 12:01 Last Admin: 02/12/17 11:51 Dose: 100 mls/hr Mesalamine (Delzicol) 800 mg PO TID [facility] Last Admin: 02/12/17 13:39 Dose: 800 mg Pantoprazole Sodium (Protonix Ec Tab) 40 mg PO DAILY [facility] Last Admin: 02/12/17 09:24 Dose: 40 mg - Labs Labs: 02/12/17 07:39 02/12/17 07:39 PT 12.2 SECONDS (9.7-12.2) 02/02/17 16:50 INR 1.1 02/02/17 16:50 APTT 31 SECONDS (21-34) D 02/02/17 16:50 - Constitutional Appears: Non-toxic, No Acute Distress - Head Exam Head Exam: ATRAUMATIC, NORMOCEPHALIC - Eye Exam Eye Exam: EOMI - ENT Exam ENT Exam: Mucous Membranes Moist - Respiratory Exam Respiratory Exam: Clear to Ausculation Bilateral, NORMAL BREATHING PATTERN - Cardiovascular Exam Cardiovascular Exam: +S1, +S2 - GI/Abdominal Exam GI & Abdominal Exam: Soft, Normal Bowel Sounds. absent: Tenderness Additional comments: pink stoma, colostomy with small amount brown liquid stool - Extremities Exam Extremities Exam: absent: Pedal Edema - Neurological Exam Neurological Exam: Alert, Awake - Psychiatric Exam Psychiatric exam: Normal Affect - Skin Skin Exam: Dry, Warm Assessment and Plan - Assessment and Plan (Free Text) Assessment: Venous thrombosis Venous doppler: Acute thrombosis Right IJ, subclavian, axillary veins continue therapeutic lovenox 60mg q12 Dr. Chung consulted-no surgical intervention at this time Multiple skin abscesses Continue primaxin q6h, daptomycin q24h cultures positive for proteus mirabilis, E. coli, VRE Dr. Daniel, [place], on the case Crohn's disease continue mesalamine 800mg PO TID patient off steroids patient to follow up with GI at [facility] patient may need immune modulating therapy Anemia continue Ferrous sulfate 325mg PO BID Prophylactic measure protonix 40mg PO daily therapeutic Lovenox All medical management per Dr. Barrett
--- NOTE | 2017-02-12 15:50 | CP.PCM.PN ---
Subjective - Date & Time of Evaluation Date of Evaluation: 02/12/17 Time of Evaluation: 07:40 - Subjective Subjective: clincally same Objective - Vital Signs/Intake and Output Vital Signs (last 24 hours): Temp Pulse Resp BP Pulse Ox 98.5 F 85 20 101/63 99 02/12/17 07:42 02/12/17 07:42 02/12/17 07:42 02/12/17 07:42 02/12/17 07:42 Intake and Output: 02/12/17 02/12/17 06:59 18:59 Intake Total 1260 800 Output Total 1400 Balance 1260 -600 - Medications Medications: Current Medications Ascorbic Acid (Vitamin C 500 Mg Tab) 500 mg PO DAILY [facility] Last Admin: 02/12/17 09:24 Dose: 500 mg Cyanocobalamin (Vitamin B12 1000 Mcg Tab) 1,000 mcg PO DAILY [facility] Last Admin: 02/12/17 09:24 Dose: 1,000 mcg Diphenhydramine HCl (Benadryl) 25 mg IVP Q3 PRN PRN Reason: Itching / Pruritus Last Admin: 02/12/17 15:03 Dose: 25 mg Enoxaparin Sodium (Lovenox) 60 mg SC Q12 [facility] Last Admin: 02/12/17 09:24 Dose: 60 mg Ferrous Sulfate (Feosol) 325 mg PO BID [facility] Last Admin: 02/12/17 09:25 Dose: 325 mg Hydromorphone HCl (Dilaudid) 1.5 mg IVP Q3 PRN PRN Reason: Pain, severe (8-10) Last Admin: 02/12/17 15:01 Dose: 1.5 mg Imipenem/Cilastatin Sodium 500 (mg/ Sodium Chloride) 100 mls @ 100 mls/hr IVPB Q6H [facility] Last Admin: 02/12/17 09:23 Dose: 100 mls/hr Daptomycin 360 mg/ Sodium (Chloride) 100 mls @ 100 mls/hr IV Q24H [facility] Stop: 02/14/17 12:01 Last Admin: 02/12/17 11:51 Dose: 100 mls/hr Mesalamine (Delzicol) 800 mg PO TID [facility] Last Admin: 02/12/17 13:39 Dose: 800 mg Pantoprazole Sodium (Protonix Ec Tab) 40 mg PO DAILY [facility] Last Admin: 02/12/17 09:24 Dose: 40 mg - Labs Labs: 02/12/17 07:39 02/12/17 07:39 PT 12.2 SECONDS (9.7-12.2) 02/02/17 16:50 INR 1.1 02/02/17 16:50 APTT 31 SECONDS (21-34) D 02/02/17 16:50 - Constitutional Appears: Well - Head Exam Head Exam: ATRAUMATIC, NORMAL INSPECTION, NORMOCEPHALIC - Eye Exam Eye Exam: EOMI, Normal appearance, PERRL Pupil Exam: NORMAL ACCOMODATION, PERRL - ENT Exam ENT Exam: Mucous Membranes Moist, Normal Exam - Neck Exam Neck Exam: Full ROM, Normal Inspection. absent: Lymphadenopathy - Respiratory Exam Respiratory Exam: Decreased Breath Sounds - Cardiovascular Exam Cardiovascular Exam: REGULAR RHYTHM, +S1, +S2 - GI/Abdominal Exam GI & Abdominal Exam: Soft, Diminished Bowel Sounds - Rectal Exam Rectal Exam: Deferred
[2017-02-13] MEDS: HYDROmorphone 1 mg/ml ISec IVP PRN ×2 (00:15→03:27)
[2017-02-13] MEDS: DiphenhydrAMINE 50 mg/ml Inj IVP PRN ×7 (00:15→19:41)
[2017-02-13 07:29] LABS: BASO # 0.1 K/uL (0.0-0.2); BASO % 0.9 % (0.0-2.0); EOS # 0.5 K/uL (0.0-0.7); EOS % 5.2 % (0.0-4.0); LYMPH # 3.5 K/uL (1.0-4.3); LYMPH % 35.9 % (20.0-40.0); MEAN CELL VOLUME 69.2 fL (80.0-94.0); MEAN CORPUSCULAR HGB CONC 30.3 g/dL (33.0-37.0); MEAN PLATELET VOLUME 8.5 fL (7.2-11.7); MONO # 0.6 K/uL (0.0-0.8); MONO % 6.6 % (0.0-10.0); NEUT # 4.9 K/uL (1.8-7.0); NEUT % 51.4 % (50.0-75.0); NRBC % 0.1 % (0.0-2.0); RBC 4.78 Mil/uL (4.40-5.90); RED CELL DISTRIBUTION WIDTH 24.2 % (11.5-14.5); WHITE BLOOD COUNT 9.6 K/uL (4.8-10.8)
[2017-02-13 07:53] LABS: ALBUMIN 3.6 g/dL (3.5-5.0)
[2017-02-13 07:55] LABS: GFR AFRICAN-AMERICAN > 60; GFR NON-AFRICAN AMERICAN > 60
[2017-02-13 07:56] LABS: ALT/SGPT 29 U/L (21-72); AST/SGOT 31 U/L (17-59); BLOOD UREA NITROGEN 6 mg/dL (9-20)
[2017-02-13 07:57] LABS: CALCIUM 9.6 mg/dl (8.6-10.4); MAGNESIUM 1.8 mg/dL (1.6-2.3)
[2017-02-13] MEDS: Enoxaparin 60 mg Syringe SC SCH ×2 (10:30→22:35)
[2017-02-13] MEDS: Pantoprazole 40 mg EC Tab PO SCH (10:31)
--- NOTE | 2017-02-13 15:54 | CP.PCM.PN ---
Subjective - Date & Time of Evaluation Date of Evaluation: 02/13/17 Time of Evaluation: 09:25 - Subjective Subjective: PGY2 Medicine Note- Dr. Barrett's service Patient seen and examined. Patient still with complaint of drainage from perineal abscess. Objective - Vital Signs/Intake and Output Vital Signs (last 24 hours): Temp Pulse Resp BP Pulse Ox 99.2 F 108 H 20 107/72 107 H 02/13/17 00:00 02/13/17 00:00 02/13/17 00:00 02/13/17 00:00 02/13/17 00:00 Intake and Output: 02/13/17 02/13/17 06:59 18:59 Intake Total 960 550 Balance 960 550 - Medications Medications: Current Medications Ascorbic Acid (Vitamin C 500 Mg Tab) 500 mg PO DAILY [facility] Last Admin: 02/13/17 10:31 Dose: 500 mg Cyanocobalamin (Vitamin B12 1000 Mcg Tab) 1,000 mcg PO DAILY [facility] Last Admin: 02/13/17 10:31 Dose: 1,000 mcg Diphenhydramine HCl (Benadryl) 25 mg IVP Q3 PRN PRN Reason: Itching / Pruritus Last Admin: 02/13/17 13:21 Dose: 25 mg Enoxaparin Sodium (Lovenox) 60 mg SC Q12 [facility] Last Admin: 02/13/17 10:30 Dose: 60 mg Ferrous Sulfate (Feosol) 325 mg PO BID [facility] Last Admin: 02/13/17 10:31 Dose: 325 mg Hydromorphone HCl (Dilaudid) 1.5 mg IVP Q3 PRN PRN Reason: Pain, severe (8-10) Last Admin: 02/13/17 13:21 Dose: 1.5 mg Imipenem/Cilastatin Sodium 500 (mg/ Sodium Chloride) 100 mls @ 100 mls/hr IVPB Q6H [facility] Last Admin: 02/13/17 10:32 Dose: 100 mls/hr Daptomycin 360 mg/ Sodium (Chloride) 100 mls @ 100 mls/hr IV Q24H [facility] Stop: 02/14/17 12:01 Last Admin: 02/13/17 12:22 Dose: 100 mls/hr Mesalamine (Delzicol) 800 mg PO TID [facility] Last Admin: 02/13/17 13:26 Dose: 800 mg Pantoprazole Sodium (Protonix Ec Tab) 40 mg PO DAILY [facility] Last Admin: 02/13/17 10:31 Dose: 40 mg - Labs Labs: 02/13/17 07:08 02/13/17 07:08 PT 12.2 SECONDS (9.7-12.2) 02/02/17 16:50 INR 1.1 02/02/17 16:50 APTT 31 SECONDS (21-34) D 02/02/17 16:50 - Constitutional Appears: No Acute Distress - Head Exam Head Exam: ATRAUMATIC, NORMOCEPHALIC - Eye Exam Eye Exam: EOMI - ENT Exam ENT Exam: Mucous Membranes Moist - Respiratory Exam Respiratory Exam: Clear to Ausculation Bilateral, NORMAL BREATHING PATTERN - Cardiovascular Exam Cardiovascular Exam: +S1, +S2 - GI/Abdominal Exam GI & Abdominal Exam: Soft, Normal Bowel Sounds. absent: Tenderness Additional comments: colostomy with pink stoma - Extremities Exam Extremities Exam: Normal Inspection. absent: Pedal Edema - Neurological Exam Neurological Exam: Alert, Awake - Psychiatric Exam Psychiatric exam: Normal Affect - Skin Skin Exam: Warm Assessment and Plan - Assessment and Plan (Free Text) Assessment: Venous thrombosis Venous doppler: Acute thrombosis Right IJ, subclavian, axillary veins continue therapeutic lovenox 60mg q12, patient will need [address] Chung consulted-no surgical intervention at this time Multiple skin abscesses Continue primaxin q6h, daptomycin q24h cultures positive for proteus mirabilis, E. coli, VRE Dr. Daniel, ID, on the case Crohn's disease continue mesalamine 800mg PO TID patient off steroids patient to follow up with GI at [facility], patient on Humira as outpt Anemia continue Ferrous sulfate 325mg PO BID Prophylactic measure protonix 40mg PO daily therapeutic Lovenox All medical management per Dr. Barrett
--- NOTE | 2017-02-13 17:38 | CP.PCM.PN ---
Subjective - Date & Time of Evaluation Date of Evaluation: 02/13/17 Time of Evaluation: 07:40 - Subjective Subjective: clinically same Objective - Vital Signs/Intake and Output Vital Signs (last 24 hours): Temp Pulse Resp BP Pulse Ox 98.2 F 79 20 100/65 100 02/13/17 15:00 02/13/17 15:00 02/13/17 15:00 02/13/17 15:00 02/13/17 15:00 Intake and Output: 02/13/17 02/13/17 06:59 18:59 Intake Total 960 550 Balance 960 550 - Medications Medications: Current Medications Ascorbic Acid (Vitamin C 500 Mg Tab) 500 mg PO DAILY [facility] Last Admin: 02/13/17 10:31 Dose: 500 mg Cyanocobalamin (Vitamin B12 1000 Mcg Tab) 1,000 mcg PO DAILY [facility] Last Admin: 02/13/17 10:31 Dose: 1,000 mcg Diphenhydramine HCl (Benadryl) 25 mg IVP Q3 PRN PRN Reason: Itching / Pruritus Last Admin: 02/13/17 16:32 Dose: 25 mg Enoxaparin Sodium (Lovenox) 60 mg SC Q12 [facility] Last Admin: 02/13/17 10:30 Dose: 60 mg Ferrous Sulfate (Feosol) 325 mg PO BID [facility] Last Admin: 02/13/17 10:31 Dose: 325 mg Hydromorphone HCl (Dilaudid) 1.5 mg IVP Q3 PRN PRN Reason: Pain, severe (8-10) Last Admin: 02/13/17 16:32 Dose: 1.5 mg Imipenem/Cilastatin Sodium 500 (mg/ Sodium Chloride) 100 mls @ 100 mls/hr IVPB Q6H [facility] Last Admin: 02/13/17 16:38 Dose: 100 mls/hr Daptomycin 360 mg/ Sodium (Chloride) 100 mls @ 100 mls/hr IV Q24H [facility] Stop: 02/14/17 12:01 Last Admin: 02/13/17 12:22 Dose: 100 mls/hr Mesalamine (Delzicol) 800 mg PO TID [facility] Last Admin: 02/13/17 17:30 Dose: 800 mg Pantoprazole Sodium (Protonix Ec Tab) 40 mg PO DAILY [facility] Last Admin: 02/13/17 10:31 Dose: 40 mg - Labs Labs: 02/13/17 07:08 02/13/17 07:08 PT 12.2 SECONDS (9.7-12.2) 02/02/17 16:50 INR 1.1 02/02/17 16:50 APTT 31 SECONDS (21-34) D 02/02/17 16:50 - Constitutional Appears: Well - Head Exam Head Exam: ATRAUMATIC, NORMAL INSPECTION, NORMOCEPHALIC - Eye Exam Eye Exam: EOMI, Normal appearance, PERRL Pupil Exam: NORMAL ACCOMODATION, PERRL - ENT Exam ENT Exam: Mucous Membranes Moist, Normal Exam - Neck Exam Neck Exam: Full ROM, Normal Inspection. absent: Lymphadenopathy - Respiratory Exam Respiratory Exam: Decreased Breath Sounds - Cardiovascular Exam Cardiovascular Exam: REGULAR RHYTHM, +S1, +S2 - GI/Abdominal Exam GI & Abdominal Exam: Soft, Diminished Bowel Sounds - Rectal Exam Rectal Exam: Deferred
--- NOTE | 2017-02-13 22:37 | CP.PCM.PN ---
Subjective - Date & Time of Evaluation Date of Evaluation: 02/13/17 Time of Evaluation: 04:00 - Subjective Subjective: dictated Objective - Vital Signs/Intake and Output Vital Signs (last 24 hours): Temp Pulse Resp BP Pulse Ox 98.2 F 79 20 100/65 100 02/13/17 15:00 02/13/17 15:00 02/13/17 15:00 02/13/17 15:00 02/13/17 15:00 Intake and Output: 02/13/17 02/14/17 18:59 06:59 Intake Total 550 500 Output Total 1000 Balance 550 -500 - Medications Medications: Current Medications Ascorbic Acid (Vitamin C 500 Mg Tab) 500 mg PO DAILY [facility] Last Admin: 02/13/17 10:31 Dose: 500 mg Cyanocobalamin (Vitamin B12 1000 Mcg Tab) 1,000 mcg PO DAILY [facility] Last Admin: 02/13/17 10:31 Dose: 1,000 mcg Diphenhydramine HCl (Benadryl) 25 mg IVP Q3 PRN PRN Reason: Itching / Pruritus Last Admin: 02/13/17 19:41 Dose: 25 mg Enoxaparin Sodium (Lovenox) 60 mg SC Q12 [facility] Last Admin: 02/13/17 22:35 Dose: 60 mg Ferrous Sulfate (Feosol) 325 mg PO BID [facility] Last Admin: 02/13/17 22:35 Dose: 325 mg Hydromorphone HCl (Dilaudid) 1.5 mg IVP Q3 PRN PRN Reason: Pain, severe (8-10) Last Admin: 02/13/17 19:42 Dose: 1.5 mg Imipenem/Cilastatin Sodium 500 (mg/ Sodium Chloride) 100 mls @ 100 mls/hr IVPB Q6H [facility] Last Admin: 02/13/17 16:38 Dose: 100 mls/hr Daptomycin 360 mg/ Sodium (Chloride) 100 mls @ 100 mls/hr IV Q24H [facility] Stop: 02/14/17 12:01 Last Admin: 02/13/17 12:22 Dose: 100 mls/hr Daptomycin 360 mg/ Sodium (Chloride) 100 mls @ 100 mls/hr IV Q24H [facility] Stop: 02/19/17 10:01 Mesalamine (Delzicol) 800 mg PO TID [facility] Last Admin: 02/13/17 17:30 Dose: 800 mg Pantoprazole Sodium (Protonix Ec Tab) 40 mg PO DAILY [facility] Last Admin: 02/13/17 10:31 Dose: 40 mg - Labs Labs: 02/13/17 07:08 02/13/17 07:08 PT 12.2 SECONDS (9.7-12.2) 02/02/17 16:50 INR 1.1 02/02/17 16:50 APTT 31 SECONDS (21-34) D 02/02/17 16:50
[2017-02-14] MEDS: DiphenhydrAMINE 50 mg/ml Inj IVP PRN ×7 (01:34→20:59)
--- NOTE | 2017-02-14 10:03 | CP.PCM.PN ---
Subjective - Date & Time of Evaluation Date of Evaluation: 02/14/17 Time of Evaluation: 07:40 - Subjective Subjective: clinically same Objective - Vital Signs/Intake and Output Vital Signs (last 24 hours): Temp Pulse Resp BP Pulse Ox 98.1 F 81 20 103/70 99 02/14/17 08:01 02/14/17 08:01 02/14/17 08:01 02/14/17 08:01 02/14/17 08:01 Intake and Output: 02/14/17 02/14/17 06:59 18:59 Intake Total 1040 Output Total 1700 Balance -660 - Medications Medications: Current Medications Ascorbic Acid (Vitamin C 500 Mg Tab) 500 mg PO DAILY [facility] Last Admin: 02/13/17 10:31 Dose: 500 mg Cyanocobalamin (Vitamin B12 1000 Mcg Tab) 1,000 mcg PO DAILY [facility] Last Admin: 02/13/17 10:31 Dose: 1,000 mcg Diphenhydramine HCl (Benadryl) 25 mg IVP Q3 PRN PRN Reason: Itching / Pruritus Last Admin: 02/14/17 08:01 Dose: 25 mg Enoxaparin Sodium (Lovenox) 60 mg SC Q12 [facility] Last Admin: 02/13/17 22:35 Dose: 60 mg Ferrous Sulfate (Feosol) 325 mg PO BID [facility] Last Admin: 02/13/17 22:35 Dose: 325 mg Hydromorphone HCl (Dilaudid) 1.5 mg IVP Q3 PRN PRN Reason: Pain, severe (8-10) Last Admin: 02/14/17 08:01 Dose: 1.5 mg Imipenem/Cilastatin Sodium 500 (mg/ Sodium Chloride) 100 mls @ 100 mls/hr IVPB Q6H [facility] Last Admin: 02/14/17 04:35 Dose: 100 mls/hr Daptomycin 360 mg/ Sodium (Chloride) 100 mls @ 100 mls/hr IV Q24H [facility] Stop: 02/19/17 10:01 Mesalamine (Delzicol) 800 mg PO TID [facility] Last Admin: 02/13/17 17:30 Dose: 800 mg Pantoprazole Sodium (Protonix Ec Tab) 40 mg PO DAILY [facility] Last Admin: 02/13/17 10:31 Dose: 40 mg - Labs Labs: 02/13/17 07:08 02/13/17 07:08 PT 12.2 SECONDS (9.7-12.2) 02/02/17 16:50 INR 1.1 02/02/17 16:50 APTT 31 SECONDS (21-34) D 02/02/17 16:50 - Constitutional Appears: Well - Head Exam Head Exam: ATRAUMATIC, NORMAL INSPECTION, NORMOCEPHALIC - Eye Exam Eye Exam: EOMI, Normal appearance, PERRL Pupil Exam: NORMAL ACCOMODATION, PERRL - ENT Exam ENT Exam: Mucous Membranes Moist, Normal Exam - Neck Exam Neck Exam: Full ROM, Normal Inspection. absent: Lymphadenopathy - Respiratory Exam Respiratory Exam: Decreased Breath Sounds - Cardiovascular Exam Cardiovascular Exam: REGULAR RHYTHM, +S1, +S2 - GI/Abdominal Exam GI & Abdominal Exam: Soft, Diminished Bowel Sounds - Rectal Exam Rectal Exam: Deferred
[2017-02-14] MEDS: Enoxaparin 60 mg Syringe SC SCH ×2 (11:06→22:24)
[2017-02-14] MEDS: Pantoprazole 40 mg EC Tab PO SCH (11:06)
--- NOTE | 2017-02-14 18:24 | PN ---
DATE: 02/13/2017 SUBJECTIVE: The patient was complaining of still having new perineal abscess and it needs drainage. He is to be followed by the surgery and we are waiting for it and he is still on IV antibiotics. He says when he walks he gets a lot of pain because of the abscesses and unable to ambulate. So he jaylene l need another I and D. PHYSICAL EXAMINATION: VITAL SIGNS: T-max is 98.2, pulse 79, blood pressure 100/65, respirations are 20. NECK: Feeling a little better and is able to move slightly better, range of movement on the right si de at this time. HEENT: Head is atraumatic, normocephalic. NECK: Supple. LUNGS: Clear. No crackles or rales present. HEART: S1, S2 regular. ABDOMEN: Soft, nontender, no guarding, no rigidity present. Has a colostomy bag and perineal absces ses have a dressing at this time. EXTREMITIES: Have no edema. LABORATORY DATA: Noted. Labs show white count is 9.6, hemoglobin 10, hematocrit 33, platelet count is 354. He is off the steroids now, but he says he has lost his appetite. He is not eating as much. BUN is 6, creatinine 0.6. His wound culture on ____ was Proteus. At this time, will need a followup with the surgical team and to continue IV antibiotics. Santosh Daniel MD cc: [id number] TT: 02/13/2017 23:52:05 Confirmation # [id number] Dictation # [id number] vidhi
[2017-02-15] MEDS: DiphenhydrAMINE 50 mg/ml Inj IVP PRN ×9 (00:10→21:56)
[2017-02-15] MEDS: Pantoprazole 40 mg EC Tab PO SCH (09:34)
[2017-02-15] MEDS: Enoxaparin 60 mg Syringe SC SCH ×2 (09:42→22:00)
--- NOTE | 2017-02-15 15:15 | CP.PCM.PN ---
Subjective - Date & Time of Evaluation Date of Evaluation: 02/15/17 Time of Evaluation: 09:00 Objective - Vital Signs/Intake and Output Vital Signs (last 24 hours): Temp Pulse Resp BP Pulse Ox 98.2 F 89 20 103/69 98 02/15/17 08:01 02/15/17 08:01 02/15/17 08:01 02/15/17 08:01 02/15/17 08:01 Intake and Output: 02/15/17 02/15/17 06:59 18:59 Intake Total 1110 600 Output Total 1000 500 Balance 110 100 - Medications Medications: Current Medications Ascorbic Acid (Vitamin C 500 Mg Tab) 500 mg PO DAILY [facility] Last Admin: 02/15/17 09:42 Dose: 500 mg Cyanocobalamin (Vitamin B12 1000 Mcg Tab) 1,000 mcg PO DAILY [facility] Last Admin: 02/15/17 09:34 Dose: 1,000 mcg Diphenhydramine HCl (Benadryl) 25 mg IVP Q3 PRN PRN Reason: Itching / Pruritus Last Admin: 02/15/17 12:35 Dose: 25 mg Enoxaparin Sodium (Lovenox) 60 mg SC Q12 [facility] Last Admin: 02/15/17 09:42 Dose: Not Given Ferrous Sulfate (Feosol) 325 mg PO BID [facility] Last Admin: 02/15/17 09:34 Dose: 325 mg Hydromorphone HCl (Dilaudid) 1.5 mg IVP Q3 PRN PRN Reason: Pain, severe (8-10) Last Admin: 02/15/17 12:34 Dose: 1.5 mg Imipenem/Cilastatin Sodium 500 (mg/ Sodium Chloride) 100 mls @ 100 mls/hr IVPB Q6H [facility] Last Admin: 02/15/17 09:35 Dose: 100 mls/hr Daptomycin 360 mg/ Sodium (Chloride) 100 mls @ 100 mls/hr IV Q24H [facility] Stop: 02/19/17 10:01 Last Admin: 02/15/17 10:45 Dose: 100 mls/hr Mesalamine (Delzicol) 800 mg PO TID [facility] Last Admin: 02/15/17 13:16 Dose: 800 mg Pantoprazole Sodium (Protonix Ec Tab) 40 mg PO DAILY [facility] Last Admin: 02/15/17 09:34 Dose: 40 mg - Labs Labs: 02/13/17 07:08 02/13/17 07:08 PT 12.2 SECONDS (9.7-12.2) 02/02/17 16:50 INR 1.1 02/02/17 16:50 APTT 31 SECONDS (21-34) D 02/02/17 16:50
[2017-02-15 22:35] LABS: BASO % 0.3 % (0.0-2.0); EOS # 0.4 K/uL (0.0-0.7); EOS % 4.2 % (0.0-4.0); HEMOGLOBIN 9.7 g/dL (12.0-18.0); LYMPH # 2.8 K/uL (1.0-4.3); LYMPH % 33.4 % (20.0-40.0); MEAN CELL VOLUME 69.4 fL (80.0-94.0); MEAN CORPUSCULAR HEMOGLOBIN 20.7 pg (27.0-31.0); MEAN CORPUSCULAR HGB CONC 29.8 g/dL (33.0-37.0); MONO # 0.7 K/uL (0.0-0.8); MONO % 7.9 % (0.0-10.0); NEUT # 4.5 K/uL (1.8-7.0); NEUT % 54.2 % (50.0-75.0); NRBC % 0.1 % (0.0-2.0); RBC 4.69 Mil/uL (4.40-5.90); RED CELL DISTRIBUTION WIDTH 23.1 % (11.5-14.5); WHITE BLOOD COUNT 8.3 K/uL (4.8-10.8)
[2017-02-15 22:42] LABS: INR 1.1; PROTHROMBIN TIME 12.3 SECONDS (9.7-12.2)
[2017-02-15 22:45] LABS: GFR AFRICAN-AMERICAN > 60; GFR NON-AFRICAN AMERICAN > 60
[2017-02-15 22:46] LABS: BLOOD UREA NITROGEN 9 mg/dL (9-20)
[2017-02-16] MEDS: DiphenhydrAMINE 50 mg/ml Inj IVP PRN ×7 (01:03→20:36)
--- NOTE | 2017-02-16 09:10 | CP.PCM.PN ---
Subjective - Date & Time of Evaluation Date of Evaluation: 02/16/17 Time of Evaluation: 07:40 - Subjective Subjective: clinically same Objective - Vital Signs/Intake and Output Vital Signs (last 24 hours): Temp Pulse Resp BP Pulse Ox 98.9 F 102 H 20 107/68 100 02/16/17 08:00 02/16/17 08:00 02/16/17 08:00 02/16/17 08:00 02/16/17 08:00 Intake and Output: 02/16/17 02/16/17 06:59 18:59 Output Total 400 Balance -400 - Medications Medications: Current Medications Ascorbic Acid (Vitamin C 500 Mg Tab) 500 mg PO DAILY [facility] Last Admin: 02/15/17 09:42 Dose: 500 mg Cyanocobalamin (Vitamin B12 1000 Mcg Tab) 1,000 mcg PO DAILY [facility] Last Admin: 02/15/17 09:34 Dose: 1,000 mcg Diphenhydramine HCl (Benadryl) 25 mg IVP Q3 PRN PRN Reason: Allergy symptoms Last Admin: 02/16/17 08:15 Dose: 25 mg Enoxaparin Sodium (Lovenox) 60 mg SC Q12 [facility] Last Admin: 02/15/17 22:00 Dose: Not Given Ferrous Sulfate (Feosol) 325 mg PO BID [facility] Last Admin: 02/15/17 17:42 Dose: 325 mg Hydromorphone HCl (Dilaudid) 1.5 mg IVP Q3 PRN PRN Reason: Pain, severe (8-10) Last Admin: 02/16/17 08:16 Dose: 1.5 mg Imipenem/Cilastatin Sodium 500 (mg/ Sodium Chloride) 100 mls @ 100 mls/hr IVPB Q6H [facility] Last Admin: 02/16/17 04:05 Dose: 100 mls/hr Daptomycin 360 mg/ Sodium (Chloride) 100 mls @ 100 mls/hr IV Q24H [facility] Stop: 02/19/17 10:01 Last Admin: 02/15/17 10:45 Dose: 100 mls/hr Mesalamine (Delzicol) 800 mg PO TID [facility] Last Admin: 02/15/17 17:43 Dose: 800 mg Pantoprazole Sodium (Protonix Ec Tab) 40 mg PO DAILY [facility] Last Admin: 02/15/17 09:34 Dose: 40 mg - Labs Labs: 02/15/17 22:32 02/15/17 22:32 PT 12.3 SECONDS (9.7-12.2) H 02/15/17 22:32 INR 1.1 02/15/17 22:32 APTT 27 SECONDS (21-34) 02/15/17 22:32 - Constitutional Appears: Well - Head Exam Head Exam: ATRAUMATIC, NORMAL INSPECTION, NORMOCEPHALIC - Eye Exam Eye Exam: EOMI, Normal appearance, PERRL Pupil Exam: NORMAL ACCOMODATION, PERRL - ENT Exam ENT Exam: Mucous Membranes Moist, Normal Exam - Neck Exam Neck Exam: Full ROM, Normal Inspection. absent: Lymphadenopathy - Respiratory Exam Respiratory Exam: Decreased Breath Sounds - Cardiovascular Exam Cardiovascular Exam: REGULAR RHYTHM, +S1, +S2 - GI/Abdominal Exam GI & Abdominal Exam: Soft, Diminished Bowel Sounds - Rectal Exam Rectal Exam: Deferred
--- NOTE | 2017-02-16 11:39 | CP.PCM.CON ---
<Mikey Hicks - Last Filed: 02/16/17 11:32> History of Present Illness - History of Present Illness History of Present Illness: PGY4 GI Fellow Consult Note Patient is a 21yo male with PMHx significant for Crohn's Disease diagnosed 5 years ago, complicated by multiple intraabdominal/pelvic abscesses s/p multiple I&Ds, who presented to the ED with pain and swelling in his groin and the right side of his neck. He has been admitted multiple times with similar complaints and has been on continuous treatment for ongoing intraabdominal abscesses. He is previously nonadherent to therapy and had poor follow up outpatient with his primary electronics commodity manager at [facility]. Patient has split most of his care between [facility] in [place] and [facility]. He recently resumed Humira therapy with his primary electronics commodity manager at [facility] and is getting infusions Q2 weeks. He claimed that he was admitted at [facility] one week prior to arrival a and was treated for an abscess with I&D and antibiotic therapy. He was D/C home without medications and noted increasing swelling/pain in the groin as well as right neck. Since admission, he has been found to have a thrombus of the right IJ, subclavian and axillary veins and is being treated with Lovenox BID. He has not had any repeat abdominal imaging and has been on broad spectrum antibiotics. Our service has been consulted for concern of bloody stool per rectum. Patient admits that he is passing formed brown stool to his ostomy but notes mucoid, liquid discharge per rectum with some specs of blood. PMHx: See HPI PSHx: Partial colectomy 02/2015, loop colostomy 04/2016, multiple I&Ds perianal abscesses FHx: Paternal aunt - Crohn's Social: Denies tobacco, EtOH or illicit drug use Endo: Last colonoscopy in August 2016 @ [facility] Review of Systems - Constitutional Constitutional: absent: Anorexia, Chills, Fever - EENT Eyes: absent: Change in Vision Nose/Mouth/Throat: Neck Pain. absent: Sore Throat - Cardiovascular Cardiovascular: absent: Chest Pain, Dyspnea, Edema - Respiratory Respiratory: absent: Cough, Dyspnea, Excessive Mucous Production - Gastrointestinal Gastrointestinal: Hematochezia. absent: Abdominal Pain, Belching, Bloating, Constipation, Cramping, Diarrhea, Heartburn, Hematemesis, Loose Stools, Melena, Nausea, Odynophagia, Temesmus, Vomiting - Genitourinary Genitourinary: absent: Dysuria, Urinary Frequency, Urinary Urgency - Musculoskeletal Musculoskeletal: absent: Back Pain, Neck Pain - Integumentary Integumentary: Bleeding Lesions, Skin Ulcer, Sores. absent: New Lesions, Rash - Neurological Neurological: absent: Dizziness, Numbness, Focal Weakness - Psychiatric Psychiatric: absent: Anxiety, Depression - Endocrine Endocrine: absent: Polydipsia, Polyphagia, Polyuria - Hematologic/Lymphatic Hematologic: absent: Easy Bleeding, Easy Bruising, Lymphadenopathy Past Patient History - Infectious Disease Hx of Infectious Diseases: None - Past Medical History & Family History Past Medical History?: Yes - Past Social History Smoking Status: Never Smoked - CARDIAC Hx Cardiac Disorders: No - PULMONARY Hx Respiratory Disorders: No - NEUROLOGICAL Hx Neurological Disorder: No - HEENT Hx HEENT Problems: No - RENAL Hx Chronic Kidney Disease: No - ENDOCRINE/METABOLIC Hx Endocrine Disorders: No - HEMATOLOGICAL/ONCOLOGICAL Hx Blood Disorders: No - INTEGUMENTARY Hx Dermatological Problems: Yes Other/Comment: Perineal wound. Rectal abcess - MUSCULOSKELETAL/RHEUMATOLOGICAL Hx Falls: No - GASTROINTESTINAL Hx Crohn's Disease: Yes (COLOSTOMY 2016) - GENITOURINARY/GYNECOLOGICAL Hx Genitourinary Disorders: No - PSYCHIATRIC Hx Depression: Yes Hx Substance Use: No - SURGICAL HISTORY Hx Surgeries: Yes (SEE COMMENT) Other/Comment: LOOP COLOSTOMY. Perineal wound. Right upper arm PICC line. COLON RESECTION - ANESTHESIA Hx Anesthesia: Yes Hx Anesthesia Reactions: No Hx Malignant Hyperthermia: No Meds Allergies/Adverse Reactions: Allergies Allergy/AdvReac Type Severity Reaction Status Date / Time morphine Allergy ITCHING Verified 01/30/17 17:09 - Medications Medications: Current Medications Ascorbic Acid (Vitamin C 500 Mg Tab) 500 mg PO DAILY [facility] Last Admin: 02/15/17 09:42 Dose: 500 mg Cyanocobalamin (Vitamin B12 1000 Mcg Tab) 1,000 mcg PO DAILY [facility] Last Admin: 02/15/17 09:34 Dose: 1,000 mcg Diphenhydramine HCl (Benadryl) 25 mg IVP Q3 PRN PRN Reason: Allergy symptoms Last Admin: 02/16/17 08:15 Dose: 25 mg Enoxaparin Sodium (Lovenox) 60 mg SC Q12 [facility] Last Admin: 02/15/17 22:00 Dose: Not Given Ferrous Sulfate (Feosol) 325 mg PO BID [facility] Last Admin: 02/15/17 17:42 Dose: 325 mg Hydromorphone HCl (Dilaudid) 1.5 mg IVP Q3 PRN PRN Reason: Pain, severe (8-10) Last Admin: 02/16/17 08:16 Dose: 1.5 mg Imipenem/Cilastatin Sodium 500 (mg/ Sodium Chloride) 100 mls @ 100 mls/hr IVPB Q6H [facility] Last Admin: 02/16/17 04:05 Dose: 100 mls/hr Daptomycin 360 mg/ Sodium (Chloride) 100 mls @ 100 mls/hr IV Q24H [facility] Stop: 02/19/17 10:01 Last Admin: 02/15/17 10:45 Dose: 100 mls/hr Pantoprazole Sodium (Protonix Ec Tab) 40 mg PO DAILY [facility] Last Admin: 02/15/17 09:34 Dose: 40 mg Physical Exam - Constitutional Appears: No Acute Distress Additional comments: unkempt - Eye Exam Eye Exam: EOMI, PERRL - ENT Exam ENT Exam: Mucous Membranes Moist - Respiratory Exam Respiratory Exam: Clear to Auscultation Bilateral. absent: Rales, Rhonchi, Wheezes - Cardiovascular Exam Cardiovascular Exam: RRR, +S1, +S2 - GI/Abdominal Exam GI & Abdominal Exam: Normal Bowel Sounds, Soft, Tenderness. absent: Distended, Firm, Guarding, Organomegaly, Rigid Additional comments: ostomy in LUQ filled with formed, brown stool - Rectal Exam Additional comments: Ulceration and purulent discharge noted at site of perirectal abscess - Back Exam Additional comments: punctate opening with purulent drainage at level of sacral base - Neurological Exam Neurological exam: Alert, Oriented x3 - Psychiatric Exam Psychiatric exam: Normal Affect, Normal Mood - Skin Skin Exam: Dry, Warm Results - Vital Signs Recent Vital Signs: Last Vital Signs Temp 98.9 F 02/16/17 08:00 Pulse 102 H 02/16/17 08:00 Resp 20 02/16/17 08:00 BP 107/68 02/16/17 08:00 Pulse Ox 100 02/16/17 08:00 - Labs Result Diagrams: 02/15/17 22:32 02/15/17 22:32 Labs: Laboratory Results - last 24 hr 02/15/17 02/15/17 02/15/17 22:32 22:32 22:32 WBC 8.3 RBC 4.69 Hgb 9.7 L Hct 32.5 L MCV 69.4 L MCH 20.7 L MCHC 29.8 L RDW 23.1 H Plt Count 329 MPV 8.0 Neut % (Auto) 54.2 Lymph % (Auto) 33.4 [place] % (Auto) 7.9 Eos % (Auto) 4.2 H Baso % (Auto) 0.3 Neut # 4.5 Lymph # 2.8 [place] # 0.7 Eos # 0.4 Baso # 0.0 PT 12.3 H INR 1.1 APTT 27 Sodium 136 Potassium 4.1 Chloride 101 Carbon Dioxide 26 Anion Gap 13 BUN 9 Creatinine 0.5 L Est GFR ( Amer) > 60 Est GFR (Non-Af Amer) > 60 Random Glucose 100 Calcium 8.0 L Assessment & Plan - Assessment and Plan (Free Text) Assessment: Patient is a 21yo male with PMHx significant for Crohn's Disease diagnosed 5 years ago, complicated by multiple intraabdominal/pelvic abscesses s/p multiple I&Ds, who presented to the ED with pain and swelling in his groin and the right side of his neck. -Crohn's Disease complicated by multiple abscesses, fistulous disease -Acute thrombus of the right IJ, subclavian and axillary veins -Perirectal wound/abscess Plan: -Continue broad spectrum antibiotics as ordered -Lovenox as ordered -Bloody discharge likely a result of mucoid discharge from rectum mixing with blood at perirectal wound; exacerbated by Lovenox therapy -Brown stool in ostomy with no evidence of blood -Diet as tolerated -Recommend this patient follow up and seek medical care at one location; likely best served in the [facility] setting at [facility] as his physicians are there and his case is rather complex -He may benefit from transfer to their facility for ongoing care -No plan for inpatient endoscopic intervention - Date & Time Date: 02/16/17 Time: 07:15 <Stevie Tobin - Last Filed: 02/16/17 14:30> Meds - Medications Medications: Current Medications Ascorbic Acid (Vitamin C 500 Mg Tab) 500 mg PO DAILY [facility] Last Admin: 02/16/17 11:53 Dose: Not Given Cyanocobalamin (Vitamin B12 1000 Mcg Tab) 1,000 mcg PO DAILY [facility] Last Admin: 02/16/17 11:53 Dose: Not Given Diphenhydramine HCl (Benadryl) 25 mg IVP Q3 PRN PRN Reason: Allergy symptoms Last Admin: 02/16/17 11:56 Dose: 25 mg Enoxaparin Sodium (Lovenox) 60 mg SC Q12 [facility] Last Admin: 02/15/17 22:00 Dose: Not Given Ferrous Sulfate (Feosol) 325 mg PO BID [facility] Last Admin: 02/16/17 11:53 Dose: Not Given Hydromorphone HCl (Dilaudid) 1.5 mg IVP Q3 PRN PRN Reason: Pain, severe (8-10) Last Admin: 02/16/17 11:54 Dose: 1.5 mg Imipenem/Cilastatin Sodium 500 (mg/ Sodium Chloride) 100 mls @ 100 mls/hr IVPB Q6H [facility] Last Admin: 02/16/17 11:58 Dose: 100 mls/hr Daptomycin 360 mg/ Sodium (Chloride) 100 mls @ 100 mls/hr IV Q24H [facility] Stop: 02/19/17 10:01 Last Admin: 02/16/17 11:59 Dose: 100 mls/hr Pantoprazole Sodium (Protonix Ec Tab) 40 mg PO DAILY [facility] Last Admin: 02/16/17 11:53 Dose: Not Given Results - Vital Signs Recent Vital Signs: Last Vital Signs Temp 98.9 F 02/16/17 08:00 Pulse 102 H 02/16/17 08:00 Resp 20 02/16/17 08:00 BP 107/68 02/16/17 08:00 Pulse Ox 100 02/16/17 08:00 - Labs Result Diagrams: 02/15/17 22:32 02/15/17 22:32 Labs: Laboratory Results - last 24 hr 02/15/17 02/15/17 02/15/17 22:32 22:32 22:32 WBC 8.3 RBC 4.69 Hgb 9.7 L Hct 32.5 L MCV 69.4 L MCH 20.7 L MCHC 29.8 L RDW 23.1 H Plt Count 329 MPV 8.0 Neut % (Auto) 54.2 Lymph % (Auto) 33.4 [place] % (Auto) 7.9 Eos % (Auto) 4.2 H Baso % (Auto) 0.3 Neut # 4.5 Lymph # 2.8 [place] # 0.7 Eos # 0.4 Baso # 0.0 PT 12.3 H INR 1.1 APTT 27 Sodium 136 Potassium 4.1 Chloride 101 Carbon Dioxide 26 Anion Gap 13 BUN 9 Creatinine 0.5 L Est GFR ( Amer) > 60 Est GFR (Non-Af Amer) > 60 Random Glucose 100 Calcium 8.0 L Attending/Attestation - Attestation I have personally seen and examined this patient.: Yes I have fully participated in the care of the patient.: Yes I have reviewed all pertinent clinical information: Yes Notes (Text): 02/16/17 14:26 21 year old male with h/o complicated Crohn's Disease, originally diagnosed 5 years ago, with multiple intraabdominal/pelvic abscesses s/p multiple I&Ds, s/p colostomy, admitted with abdominal pain, neck swelling, found to have IJ thrombus, also with rectal bleeding with anticoagulation. 1. Crohn's Disease 2. Intra-abdominal abscess 3. Rectal bleeding Plan: -recommend supportive measures, including broad spectrum antibiotics -appreciate surgical evaluation re: abscess -mild bleeding noted in the setting of anticoagulation -would continue anticoagulation for now as bleeding has been minimal and he needs therapy for IJ thrombus -recommend outpatient Humira therapy per his GI -recommend transfer of care to [facility] as this is a complicated patient with Crohn 's disease, either now as inpatient, or else as outpatient -diet as tolerated -no plans for endoscopy or inpatient interventions/therapy from GI standpoint -will sign off
[2017-02-16] MEDS: Pantoprazole 40 mg EC Tab PO SCH ×2 (11:53→17:47)
--- NOTE | 2017-02-16 20:43 | CP.PCM.PN ---
Subjective - Date & Time of Evaluation Date of Evaluation: 02/16/17 Time of Evaluation: 04:00 - Subjective Subjective: Patient seen still with complains of pain in perineum and abscesses ,neck pain slightly better Objective - Vital Signs/Intake and Output Vital Signs (last 24 hours): Temp Pulse Resp BP Pulse Ox 98.9 F 102 H 20 107/68 100 02/16/17 08:00 02/16/17 08:00 02/16/17 08:00 02/16/17 08:00 02/16/17 08:00 Intake and Output: 02/16/17 02/17/17 18:59 06:59 Intake Total 600 Output Total 1200 Balance -600 - Medications Medications: Current Medications Ascorbic Acid (Vitamin C 500 Mg Tab) 500 mg PO DAILY [facility] Last Admin: 02/16/17 17:47 Dose: 500 mg Cyanocobalamin (Vitamin B12 1000 Mcg Tab) 1,000 mcg PO DAILY [facility] Last Admin: 02/16/17 17:47 Dose: 1,000 mcg Diphenhydramine HCl (Benadryl) 25 mg IVP Q3 PRN PRN Reason: Allergy symptoms Last Admin: 02/16/17 17:37 Dose: 25 mg Enoxaparin Sodium (Lovenox) 60 mg SC Q12 [facility] Last Admin: 02/15/17 22:00 Dose: Not Given Ferrous Sulfate (Feosol) 325 mg PO BID [facility] Last Admin: 02/16/17 17:42 Dose: 325 mg Hydromorphone HCl (Dilaudid) 1.5 mg IVP Q3 PRN PRN Reason: Pain, severe (8-10) Last Admin: 02/16/17 17:39 Dose: 1.5 mg Imipenem/Cilastatin Sodium 500 (mg/ Sodium Chloride) 100 mls @ 100 mls/hr IVPB Q6H [facility] Last Admin: 02/16/17 16:22 Dose: 100 mls/hr Daptomycin 360 mg/ Sodium (Chloride) 100 mls @ 100 mls/hr IV Q24H [facility] Stop: 02/19/17 10:01 Last Admin: 02/16/17 11:59 Dose: 100 mls/hr Mesalamine (Delzicol) 800 mg PO TID [facility] Last Admin: 02/16/17 17:50 Dose: 800 mg Pantoprazole Sodium (Protonix Ec Tab) 40 mg PO DAILY [facility] Last Admin: 02/16/17 17:47 Dose: 40 mg - Labs Labs: 02/15/17 22:32 02/15/17 22:32 PT 12.3 SECONDS (9.7-12.2) H 02/15/17 22:32 INR 1.1 02/15/17 22:32 APTT 27 SECONDS (21-34) 02/15/17 22:32 - Constitutional Appears: No Acute Distress - Head Exam Head Exam: ATRAUMATIC, NORMOCEPHALIC - Eye Exam Eye Exam: Normal appearance - ENT Exam ENT Exam: Normal Exam - Neck Exam Additional comments: neck tenderness is decreased - Respiratory Exam Respiratory Exam: Clear to Ausculation Bilateral, NORMAL BREATHING PATTERN. absent: Accessory Muscle Use, Chest Wall Tenderness, Decreased Breath Sounds, Prolonged Expiratory Phase, Rales, Rhonchi, Wheezes, Respiratory Distress, Stridor - Cardiovascular Exam Cardiovascular Exam: REGULAR RHYTHM, RRR. absent: Bradycardia, Tachycardia, Clicks, Diastolic murmur, Gallop, Irregular Rhythm, JVD, Rubs, +S1, +S2, +S4, Murmur - GI/Abdominal Exam GI & Abdominal Exam: Soft Additional comments: colostomy present - Extremities Exam Extremities Exam: Normal Inspection - Skin Additional comments: perneum abscess persist and excoriation of back betwen the buttocks persists.patient to be seen by surgery teami Assessment and Plan (1) Abscess Status: Acute (2) Crohn disease Status: Acute (3) DVT (deep venous thrombosis) Status: Acute (4) Rectal pain Status: Acute
--- NOTE | 2017-02-16 22:14 | PN ---
DATE: 02/16/2017 PHYSICAL EXAMINATION: VITAL SIGNS: The patient is afebrile. T-max is 98.9, heart rate of 102, blood pressure 107/68, resp irations are 20. HEENT: Head is atraumatic, normocephalic. NECK: Supple. He has refused Lovenox, because he was bleeding from rectum, but he has been having constant small am ount of bleeding from the abscess site and excoriated skin in the perineum. He needs debridement of lancing of one of the abscesses, so he could go home. He has been here more than 2 weeks and has bee n on antibiotics. LABORATORY DATA: White count remains normal. BUN is 9, creatinine 0.5. He has received treatment for Proteus, as well as E. coli and VRE, and will continue antibiotics for now. We will leave a message for the surgeon to tish the abscess so that he could go. IMPRESSION: He has Crohn disease and he has multiple abscesses and cellulitis and abscesses in the p erineum. Santosh Daniel MD cc: [id number] TT: 02/16/2017 22:13:58 Confirmation # [id number] Dictation # [id number] mn
[2017-02-17] MEDS: DiphenhydrAMINE 50 mg/ml Inj IVP PRN ×7 (03:30→21:52)
[2017-02-17] MEDS: Pantoprazole 40 mg EC Tab PO SCH (10:48)
--- NOTE | 2017-02-17 14:19 | CP.PCM.PN ---
Subjective - Date & Time of Evaluation Date of Evaluation: 02/17/17 Time of Evaluation: 07:40 - Subjective Subjective: clinically same Objective - Vital Signs/Intake and Output Vital Signs (last 24 hours): Temp Pulse Resp BP Pulse Ox 98.3 F 96 H 20 99/62 L 99 02/17/17 07:59 02/17/17 07:59 02/17/17 07:59 02/17/17 07:59 02/17/17 07:59 Intake and Output: 02/17/17 02/17/17 06:59 18:59 Intake Total 460 Balance 460 - Medications Medications: Current Medications Ascorbic Acid (Vitamin C 500 Mg Tab) 500 mg PO DAILY [facility] Last Admin: 02/17/17 10:48 Dose: 500 mg Cyanocobalamin (Vitamin B12 1000 Mcg Tab) 1,000 mcg PO DAILY [facility] Last Admin: 02/17/17 10:48 Dose: 1,000 mcg Diphenhydramine HCl (Benadryl) 25 mg IVP Q3 PRN PRN Reason: Allergy symptoms Last Admin: 02/17/17 09:30 Dose: 25 mg Enoxaparin Sodium (Lovenox) 60 mg SC Q12 [facility] Last Admin: 02/15/17 22:00 Dose: Not Given Ferrous Sulfate (Feosol) 325 mg PO BID [facility] Last Admin: 02/17/17 10:47 Dose: 325 mg Hydromorphone HCl (Dilaudid) 1.5 mg IVP Q3 PRN PRN Reason: Pain, severe (8-10) Last Admin: 02/17/17 12:34 Dose: 1.5 mg Imipenem/Cilastatin Sodium 500 (mg/ Sodium Chloride) 100 mls @ 100 mls/hr IVPB Q6H [facility] Last Admin: 02/17/17 10:54 Dose: 100 mls/hr Daptomycin 360 mg/ Sodium (Chloride) 100 mls @ 100 mls/hr IV Q24H [facility] Stop: 02/19/17 10:01 Last Admin: 02/17/17 10:52 Dose: 100 mls/hr Mesalamine (Delzicol) 800 mg PO TID [facility] Last Admin: 02/17/17 10:49 Dose: 800 mg Pantoprazole Sodium (Protonix Ec Tab) 40 mg PO DAILY [facility] Last Admin: 02/17/17 10:48 Dose: 40 mg - Labs Labs: 02/15/17 22:32 02/15/17 22:32 PT 12.3 SECONDS (9.7-12.2) H 02/15/17 22:32 INR 1.1 02/15/17 22:32 APTT 27 SECONDS (21-34) 02/15/17 22:32 - Constitutional Appears: Well - Head Exam Head Exam: ATRAUMATIC, NORMAL INSPECTION, NORMOCEPHALIC - Eye Exam Eye Exam: EOMI, Normal appearance, PERRL Pupil Exam: NORMAL ACCOMODATION, PERRL - ENT Exam ENT Exam: Mucous Membranes Moist, Normal Exam - Neck Exam Neck Exam: Full ROM, Normal Inspection. absent: Lymphadenopathy - Respiratory Exam Respiratory Exam: Decreased Breath Sounds - Cardiovascular Exam Cardiovascular Exam: REGULAR RHYTHM, +S1, +S2 - GI/Abdominal Exam GI & Abdominal Exam: Soft, Diminished Bowel Sounds - Rectal Exam Rectal Exam: Deferred
[2017-02-18] MEDS: DiphenhydrAMINE 50 mg/ml Inj IVP PRN ×8 (01:10→23:55)
[2017-02-18] MEDS: Pantoprazole 40 mg EC Tab PO SCH (09:25)
--- NOTE | 2017-02-18 22:16 | CP.PCM.PN ---
Subjective - Date & Time of Evaluation Date of Evaluation: 02/18/17 Time of Evaluation: 02:00 - Subjective Subjective: Patient is not taking mlovenox and has blood from abscess in perineum,one abscess is bothering him in the perineum unable to walk even will probably need I and D I informed Dr Bueno to check him and also told the nurse to call residential tech Objective - Vital Signs/Intake and Output Vital Signs (last 24 hours): Temp Pulse Resp BP Pulse Ox 98.6 F 101 H 20 110/69 100 02/18/17 15:00 02/18/17 15:00 02/18/17 15:00 02/18/17 15:00 02/18/17 15:00 Intake and Output: 02/18/17 02/19/17 18:59 06:59 Intake Total 250 Output Total 800 Balance -550 - Medications Medications: Current Medications Ascorbic Acid (Vitamin C 500 Mg Tab) 500 mg PO DAILY [facility] Last Admin: 02/18/17 11:21 Dose: 500 mg Cyanocobalamin (Vitamin B12 1000 Mcg Tab) 1,000 mcg PO DAILY [facility] Last Admin: 02/18/17 09:26 Dose: 1,000 mcg Diphenhydramine HCl (Benadryl) 25 mg IVP Q3 PRN PRN Reason: Allergy symptoms Last Admin: 02/18/17 20:44 Dose: 25 mg Enoxaparin Sodium (Lovenox) 60 mg SC Q12 [facility] Last Admin: 02/15/17 22:00 Dose: Not Given Ferrous Sulfate (Feosol) 325 mg PO BID [facility] Last Admin: 02/18/17 17:26 Dose: 325 mg Hydromorphone HCl (Dilaudid) 1.5 mg IVP Q3 PRN PRN Reason: Pain, severe (8-10) Last Admin: 02/18/17 20:45 Dose: 1.5 mg Imipenem/Cilastatin Sodium 500 (mg/ Sodium Chloride) 100 mls @ 100 mls/hr IVPB Q6H [facility] Last Admin: 02/18/17 21:43 Dose: 100 mls/hr Daptomycin 360 mg/ Sodium (Chloride) 100 mls @ 100 mls/hr IV Q24H [facility] Stop: 02/19/17 10:01 Last Admin: 02/18/17 09:29 Dose: 100 mls/hr Mesalamine (Delzicol) 800 mg PO TID [facility] Last Admin: 02/18/17 17:26 Dose: 800 mg Pantoprazole Sodium (Protonix Ec Tab) 40 mg PO DAILY [facility] Last Admin: 02/18/17 09:25 Dose: 40 mg - Labs Labs: 02/15/17 22:32 02/15/17 22:32 PT 12.3 SECONDS (9.7-12.2) H 02/15/17 22:32 INR 1.1 02/15/17 22:32 APTT 27 SECONDS (21-34) 02/15/17 22:32 - Constitutional Appears: No Acute Distress - Head Exam Head Exam: ATRAUMATIC, NORMOCEPHALIC - Eye Exam Eye Exam: Normal appearance - ENT Exam ENT Exam: Mucous Membranes Moist - Neck Exam Additional comments: neck movement is betetr less tenderness on the right neck - Respiratory Exam Respiratory Exam: Clear to Ausculation Bilateral - Cardiovascular Exam Cardiovascular Exam: REGULAR RHYTHM, RRR - GI/Abdominal Exam GI & Abdominal Exam: Soft, Normal Bowel Sounds - Extremities Exam Extremities Exam: Normal Inspection Assessment and Plan (1) Abscess Assessment & Plan: needs further debridment and I & D Status: Acute (2) Crohn disease Assessment & Plan: GI recommendations noted Status: Acute (3) DVT (deep venous thrombosis) Assessment & Plan: in neck needs to be on anticoag Status: Acute
[2017-02-19] MEDS: DiphenhydrAMINE 50 mg/ml Inj IVP PRN ×7 (03:00→23:55)
[2017-02-19 07:02] LABS: INR 1.2; PROTHROMBIN TIME 13.5 SECONDS (9.7-12.2)
[2017-02-19 07:06] LABS: BASO # 0.1 K/uL (0.0-0.2); BASO % 0.8 % (0.0-2.0); EOS # 0.5 K/uL (0.0-0.7); EOS % 4.7 % (0.0-4.0); HEMOGLOBIN 10.1 g/dL (12.0-18.0); LYMPH # 3.7 K/uL (1.0-4.3); LYMPH % 33.5 % (20.0-40.0); MEAN CELL VOLUME 69.5 fL (80.0-94.0); MEAN CORPUSCULAR HEMOGLOBIN 21.3 pg (27.0-31.0); MEAN CORPUSCULAR HGB CONC 30.7 g/dL (33.0-37.0); MONO # 0.6 K/uL (0.0-0.8); MONO % 5.8 % (0.0-10.0); NEUT # 6.1 K/uL (1.8-7.0); NEUT % 55.2 % (50.0-75.0); RBC 4.75 Mil/uL (4.40-5.90); RED CELL DISTRIBUTION WIDTH 22.8 % (11.5-14.5)
[2017-02-19 07:22] LABS: ALBUMIN 3.4 g/dL (3.5-5.0)
[2017-02-19 07:25] LABS: AST/SGOT 23 U/L (17-59); BLOOD UREA NITROGEN 6 mg/dL (9-20); GFR AFRICAN-AMERICAN > 60; GFR NON-AFRICAN AMERICAN > 60
[2017-02-19 07:26] LABS: ALT/SGPT 24 U/L (21-72); CALCIUM 9.2 mg/dl (8.6-10.4)
[2017-02-19 07:38] LABS: ALB/GLOB RATIO 0.9 (1.0-2.1)
[2017-02-19] MEDS: Pantoprazole 40 mg EC Tab PO SCH (10:16)
--- NOTE | 2017-02-19 10:29 | CP.PCM.PN ---
Subjective - Date & Time of Evaluation Date of Evaluation: 02/19/17 Time of Evaluation: 07:40 - Subjective Subjective: clinically same Objective - Vital Signs/Intake and Output Vital Signs (last 24 hours): Temp Pulse Resp BP Pulse Ox 98.3 F 100 H 20 112/69 100 02/19/17 10:11 02/19/17 10:11 02/19/17 10:11 02/19/17 10:11 02/19/17 10:11 Intake and Output: 02/19/17 02/19/17 06:59 18:59 Intake Total 410 Output Total 800 Balance -390 - Medications Medications: Current Medications Ascorbic Acid (Vitamin C 500 Mg Tab) 500 mg PO DAILY [facility] Last Admin: 02/19/17 10:15 Dose: 500 mg Cyanocobalamin (Vitamin B12 1000 Mcg Tab) 1,000 mcg PO DAILY [facility] Last Admin: 02/19/17 10:16 Dose: 1,000 mcg Diphenhydramine HCl (Benadryl) 25 mg IVP Q3 PRN PRN Reason: Allergy symptoms Last Admin: 02/19/17 10:08 Dose: 25 mg Enoxaparin Sodium (Lovenox) 60 mg SC Q12 [facility] Last Admin: 02/15/17 22:00 Dose: Not Given Ferrous Sulfate (Feosol) 325 mg PO BID [facility] Last Admin: 02/19/17 10:16 Dose: 325 mg Hydromorphone HCl (Dilaudid) 1.5 mg IVP Q3 PRN PRN Reason: Pain, severe (8-10) Last Admin: 02/19/17 10:09 Dose: 1.5 mg Imipenem/Cilastatin Sodium 500 (mg/ Sodium Chloride) 100 mls @ 100 mls/hr IVPB Q6H [facility] Last Admin: 02/19/17 10:18 Dose: 100 mls/hr Mesalamine (Delzicol) 800 mg PO TID [facility] Last Admin: 02/19/17 10:16 Dose: 800 mg Pantoprazole Sodium (Protonix Ec Tab) 40 mg PO DAILY [facility] Last Admin: 02/19/17 10:16 Dose: 40 mg - Labs Labs: 02/19/17 06:35 02/19/17 06:35 PT 13.5 SECONDS (9.7-12.2) H 02/19/17 06:35 INR 1.2 02/19/17 06:35 APTT 31 SECONDS (21-34) 02/19/17 06:35 - Constitutional Appears: Well - Head Exam Head Exam: ATRAUMATIC, NORMAL INSPECTION, NORMOCEPHALIC - Eye Exam Eye Exam: EOMI, Normal appearance, PERRL Pupil Exam: NORMAL ACCOMODATION, PERRL - ENT Exam ENT Exam: Mucous Membranes Moist, Normal Exam - Neck Exam Neck Exam: Full ROM, Normal Inspection. absent: Lymphadenopathy - Respiratory Exam Respiratory Exam: Decreased Breath Sounds - Cardiovascular Exam Cardiovascular Exam: REGULAR RHYTHM, +S1, +S2 - GI/Abdominal Exam GI & Abdominal Exam: Soft, Diminished Bowel Sounds - Rectal Exam Rectal Exam: Deferred
--- NOTE | 2017-02-19 14:05 | CP.PCM.PN ---
<Alex Morales - Last Filed: 02/19/17 14:02> Subjective - Date & Time of Evaluation Date of Evaluation: 02/19/17 Time of Evaluation: 14:03 - Subjective Subjective: Surgery: Dr. Taylor Pt was seen and examined. Pt continues to have pain in the perineal area. Objective - Vital Signs/Intake and Output Vital Signs (last 24 hours): Temp Pulse Resp BP Pulse Ox 98.3 F 100 H 20 112/69 100 02/19/17 10:11 02/19/17 10:11 02/19/17 10:11 02/19/17 10:11 02/19/17 10:11 Intake and Output: 02/19/17 02/19/17 06:59 18:59 Intake Total 410 Output Total 800 Balance -390 - Medications Medications: Current Medications Ascorbic Acid (Vitamin C 500 Mg Tab) 500 mg PO DAILY [facility] Last Admin: 02/19/17 10:15 Dose: 500 mg Cyanocobalamin (Vitamin B12 1000 Mcg Tab) 1,000 mcg PO DAILY [facility] Last Admin: 02/19/17 10:16 Dose: 1,000 mcg Diphenhydramine HCl (Benadryl) 25 mg IVP Q3 PRN PRN Reason: Allergy symptoms Last Admin: 02/19/17 13:16 Dose: 25 mg Enoxaparin Sodium (Lovenox) 60 mg SC Q12 [facility] Last Admin: 02/15/17 22:00 Dose: Not Given Ferrous Sulfate (Feosol) 325 mg PO BID [facility] Last Admin: 02/19/17 10:16 Dose: 325 mg Hydromorphone HCl (Dilaudid) 1.5 mg IVP Q3 PRN PRN Reason: Pain, severe (8-10) Last Admin: 02/19/17 13:15 Dose: 1.5 mg Imipenem/Cilastatin Sodium 500 (mg/ Sodium Chloride) 100 mls @ 100 mls/hr IVPB Q6H [facility] Last Admin: 02/19/17 10:18 Dose: 100 mls/hr Mesalamine (Delzicol) 800 mg PO TID [facility] Last Admin: 02/19/17 13:15 Dose: 800 mg Pantoprazole Sodium (Protonix Ec Tab) 40 mg PO DAILY [facility] Last Admin: 02/19/17 10:16 Dose: 40 mg - Labs Labs: 02/19/17 06:35 06/29/17 06:35 PT 13.5 SECONDS (9.7-12.2) H 02/19/17 06:35 INR 1.2 02/19/17 06:35 APTT 31 SECONDS (21-34) 02/19/17 06:35 - Constitutional Appears: Non-toxic, No Acute Distress - Head Exam Head Exam: ATRAUMATIC, NORMOCEPHALIC - Eye Exam Eye Exam: EOMI - ENT Exam ENT Exam: Mucous Membranes Moist - Neck Exam Neck Exam: Full ROM - Respiratory Exam Respiratory Exam: NORMAL BREATHING PATTERN. absent: Accessory Muscle Use, Respiratory Distress - Rectal Exam Additional comments: chronic non-healing wound of perineum - Neurological Exam Neurological Exam: Alert, Awake, Oriented x3 Assessment and Plan - Assessment and Plan (Free Text) Assessment: 21M w. chron's and chronic wound on perineum -OR tomorrow for debridement -NPO at midnight -It was explained to pt in great detail that his wound is not healing 2/2 to poor wound care. Pt is perfectly capable to providing his own wound care. Pt was told that he needs to shower ideally 3xs/day to clean perineum. Showering 2xs/s day, morning and night, is also an option if pt uses sitz bath in afternoon. After each washing pt needs to apply dry dressing wMeseret jordan to wound. -recommend psych consult R/O malingering/failure to thrive -d/w attending Zemaitis PGY2 <Temo Taylor - Last Filed: 03/01/17 16:21> Objective - Vital Signs/Intake and Output Vital Signs (last 24 hours): Temp Pulse Resp BP Pulse Ox 98.7 F 105 H 20 105/71 100 03/01/17 00:00 03/01/17 00:00 03/01/17 00:00 03/01/17 00:00 03/01/17 00:00 Intake and Output: 03/01/17 03/01/17 06:59 18:59 Intake Total 450 500 Output Total 950 700 Balance -500 -200 - Medications Medications: Current Medications Diphenhydramine HCl (Benadryl) 25 mg IVP Q4H PRN PRN Reason: Itching / Pruritus Last Admin: 03/01/17 13:31 Dose: 25 mg Enoxaparin Sodium (Lovenox) 60 mg SC Q12 [facility] Last Admin: 03/01/17 09:27 Dose: Not Given Escitalopram Oxalate (Lexapro) 5 mg PO DAILY [facility] Last Admin: 03/01/17 09:27 Dose: 5 mg Hydromorphone HCl (Dilaudid) 1 mg IVP Q4H PRN PRN Reason: Pain, severe (8-10) Last Admin: 03/01/17 13:31 Dose: 1 mg Ciprofloxacin (Cipro 400mg/200ml Dsw) 400 mg in 200 mls @ 133 mls/hr IVPB Q12H [facility] Last Admin: 03/01/17 05:22 Dose: 133 mls/hr Lactobacillus Acidophilus (Bacid Acidophilus) 1 cap PO BID [facility] Last Admin: 03/01/17 09:27 Dose: 1 cap Mesalamine (Delzicol) 800 mg PO TID [facility] Last Admin: 03/01/17 13:31 Dose: 800 mg Ondansetron HCl (Zofran Inj) 4 mg IVP Q6 PRN PRN Reason: Nausea/Vomiting Last Admin: 02/24/17 17:56 Dose: 4 mg Quetiapine Fumarate (Seroquel) 100 mg PO HS [facility] Last Admin: 02/28/17 21:39 Dose: 100 mg - Labs Labs: 02/26/17 06:49 02/26/17 06:49 PT 13.5 SECONDS (9.7-12.2) H 02/19/17 06:35 INR 1.2 02/19/17 06:35 APTT 31 SECONDS (21-34) 02/19/17 06:35 Attending/Attestation - Attestation I have personally seen and examined this patient.: Yes I have fully participated in the care of the patient.: Yes I have reviewed all pertinent clinical information, including history, physical exam and plan: Yes Notes (Text): 03/01/17 16:20 Pt was seen and examined at bedside on 02/19/17 Agree with above note and assessment Pt with Perineal abscess and non healing wound in perineum OR for I & D and Debridement Consent NPO, IVF C/w current mx Plan d/w pt and PMD in detail Risk and benefit explained in detail.
[2017-02-20] MEDS: DiphenhydrAMINE 50 mg/ml Inj IVP PRN ×6 (03:00→21:07)
[2017-02-20] MEDS: Pantoprazole 40 mg EC Tab PO SCH (09:41)
--- NOTE | 2017-02-20 11:09 | CP.PCM.PN ---
Subjective - Date & Time of Evaluation Date of Evaluation: 02/20/17 Time of Evaluation: 07:40 - Subjective Subjective: clinically same Objective - Vital Signs/Intake and Output Vital Signs (last 24 hours): Temp Pulse Resp BP Pulse Ox 97.5 F L 82 20 99/64 L 98 02/20/17 07:56 02/20/17 07:56 02/20/17 07:56 02/20/17 07:56 02/20/17 07:56 Intake and Output: 02/20/17 02/20/17 06:59 18:59 Intake Total 460 Output Total 1500 Balance -1040 - Medications Medications: Current Medications Ascorbic Acid (Vitamin C 500 Mg Tab) 500 mg PO DAILY [facility] Last Admin: 02/20/17 09:41 Dose: 500 mg Cyanocobalamin (Vitamin B12 1000 Mcg Tab) 1,000 mcg PO DAILY [facility] Last Admin: 02/20/17 09:41 Dose: 1,000 mcg Diphenhydramine HCl (Benadryl) 25 mg IVP Q3 PRN PRN Reason: Allergy symptoms Last Admin: 02/20/17 09:51 Dose: 25 mg Enoxaparin Sodium (Lovenox) 60 mg SC Q12 [facility] Last Admin: 02/15/17 22:00 Dose: Not Given Ferrous Sulfate (Feosol) 325 mg PO BID [facility] Last Admin: 02/20/17 09:50 Dose: 325 mg Hydromorphone HCl (Dilaudid) 1.5 mg IVP Q3 PRN PRN Reason: Pain, severe (8-10) Last Admin: 02/20/17 09:41 Dose: 1.5 mg Imipenem/Cilastatin Sodium 500 (mg/ Sodium Chloride) 100 mls @ 100 mls/hr IVPB Q6H [facility] Last Admin: 02/20/17 09:42 Dose: 100 mls/hr Mesalamine (Delzicol) 800 mg PO TID [facility] Last Admin: 02/20/17 09:42 Dose: 800 mg Pantoprazole Sodium (Protonix Ec Tab) 40 mg PO DAILY [facility] Last Admin: 02/20/17 09:41 Dose: 40 mg - Labs Labs: 02/19/17 06:35 02/19/17 06:35 PT 13.5 SECONDS (9.7-12.2) H 02/19/17 06:35 INR 1.2 02/19/17 06:35 APTT 31 SECONDS (21-34) 02/19/17 06:35 - Constitutional Appears: Well - Head Exam Head Exam: ATRAUMATIC, NORMAL INSPECTION, NORMOCEPHALIC - Eye Exam Eye Exam: EOMI, Normal appearance, PERRL Pupil Exam: NORMAL ACCOMODATION, PERRL - ENT Exam ENT Exam: Mucous Membranes Moist, Normal Exam - Neck Exam Neck Exam: Full ROM, Normal Inspection. absent: Lymphadenopathy - Respiratory Exam Respiratory Exam: Decreased Breath Sounds - Cardiovascular Exam Cardiovascular Exam: REGULAR RHYTHM, +S1, +S2 - GI/Abdominal Exam GI & Abdominal Exam: Soft, Diminished Bowel Sounds - Rectal Exam Rectal Exam: Deferred Assessment and Plan (1) DVT (deep venous thrombosis) Status: Acute (2) Diarrhea Status: Acute (3) Intractable pain Status: Acute (4) Wound of right buttock Status: Acute (5) Abdominal pain Status: Acute (6) Abscess Status: Acute (7) Constipation Status: Acute (8) Crohn disease Status: Acute (9) Diarrhea Status: Acute (10) Encounter for wound care Status: Acute (11) Fever Status: Acute (12) Foreign body Status: Acute (13) Intractable abdominal pain Status: Acute (14) Prophylactic measure Status: Acute (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 Taylor to discuss with
[2017-02-20] MEDS ORDERED: Lidocaine 1% Inj (20ml) ONE (11:49)
[2017-02-20] MEDS ORDERED: Bupivacaine-Epi 0.25%-1:200,000 PF Inj ONE (11:49)
[2017-02-20] MEDS ORDERED: Propofol 10 mg/ml Inj (20 ML) ONE (12:33)
[2017-02-20] MEDS ORDERED: Midazolam 2 MG/2 ML VIAL ONE (12:33)
[2017-02-20] MEDS ORDERED: Lactated Ringer's 1,000 ML IV ONE ×2 (12:35→13:37)
[2017-02-20] MEDS ORDERED: HYDROmorphone 0.5 mg/0.5 ml ISec IVP PRN (13:37)
--- NOTE | 2017-02-20 13:38 | PCM.SURG1 ---
Surgeon's Initial Post Op Note - Surgeon's Notes Surgeon: Claudia Guest Services Assistant: Randy Pre-Operative Diagnosis: perineal abscess, perineal non-healing wound Operative Findings: perineal abscess, chronic non-healing wound Post-Operative Diagnosis: same Operation Performed: incision and drainage of abscess in perineal region, blunt debridement of hypergranulated perineal wounds, use of simpulse for further cleaning and debridement Specimen/Specimens Removed: hypergranulated tissue on perineal wounds Estimated Blood Loss: EBL {In ML}: 15 Date of Surgery/Procedure: 02/20/17 Time of Surgery/Procedure: 12:30
[2017-02-20] MEDS ORDERED: HYDROmorphone 1 mg/ml ISec IVP PRN (13:40)
[2017-02-20] MEDS: HYDROmorphone 1 mg/ml ISec IVP PRN ×2 (18:00→21:08)
[2017-02-21 00:36] VITALS: RESP 20
[2017-02-21] MEDS: DiphenhydrAMINE 50 mg/ml Inj IVP PRN ×6 (03:05→22:02)
[2017-02-21] MEDS: HYDROmorphone 1 mg/ml ISec IVP PRN ×5 (03:05→22:02)
[2017-02-21] MEDS: Pantoprazole 40 mg EC Tab PO SCH (09:25)
--- NOTE | 2017-02-21 20:43 | CP.PCM.PN ---
Subjective - Date & Time of Evaluation Date of Evaluation: 02/21/17 Objective - Vital Signs/Intake and Output Vital Signs (last 24 hours): Temp Pulse Resp BP Pulse Ox 98.5 F 73 20 107/74 98 02/21/17 09:15 02/21/17 09:15 02/21/17 09:15 02/21/17 09:15 02/21/17 09:15 - Medications Medications: Current Medications Ascorbic Acid (Vitamin C 500 Mg Tab) 500 mg PO DAILY [facility] Last Admin: 02/21/17 09:25 Dose: 500 mg Cyanocobalamin (Vitamin B12 1000 Mcg Tab) 1,000 mcg PO DAILY [facility] Last Admin: 02/21/17 10:43 Dose: 1,000 mcg Diphenhydramine HCl (Benadryl) 25 mg IVP Q3 PRN PRN Reason: Allergy symptoms Last Admin: 02/21/17 13:00 Dose: 25 mg Enoxaparin Sodium (Lovenox) 60 mg SC Q12 [facility] Last Admin: 02/15/17 22:00 Dose: Not Given Ferrous Sulfate (Feosol) 325 mg PO BID [facility] Last Admin: 02/21/17 09:25 Dose: 325 mg Hydromorphone HCl (Dilaudid) 1 mg IVP Q3 PRN PRN Reason: Pain, severe (8-10) Last Admin: 02/21/17 09:18 Dose: 1 mg Imipenem/Cilastatin Sodium 500 (mg/ Sodium Chloride) 100 mls @ 100 mls/hr IVPB Q6H [facility] Last Admin: 02/21/17 10:43 Dose: 100 mls/hr Mesalamine (Delzicol) 800 mg PO TID [facility] Last Admin: 02/21/17 14:15 Dose: Not Given Pantoprazole Sodium (Protonix Ec Tab) 40 mg PO DAILY [facility] Last Admin: 02/21/17 09:25 Dose: 40 mg - Labs Labs: 02/19/17 06:35 02/19/17 06:35 PT 13.5 SECONDS (9.7-12.2) H 02/19/17 06:35 INR 1.2 02/19/17 06:35 APTT 31 SECONDS (21-34) 02/19/17 06:35 Assessment and Plan (1) DVT (deep venous thrombosis) Status: Acute (2) Diarrhea Status: Acute (3) Intractable pain Status: Acute (4) Wound of right buttock Status: Acute (5) Abdominal pain Status: Acute (6) Abscess Status: Acute (7) Constipation Status: Acute (8) Crohn disease Status: Acute (9) Diarrhea Status: Acute (10) Encounter for wound care Status: Acute (11) Fever Status: Acute (12) Foreign body Status: Acute (13) Intractable abdominal pain Status: Acute (14) Prophylactic measure Status: Acute (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
--- NOTE | 2017-02-21 20:54 | CP.PCM.PN ---
Subjective - Date & Time of Evaluation Date of Evaluation: 02/21/17 Time of Evaluation: 08:00 - Subjective Subjective: General sx progress note for Dr. Kim Lees, PGY-1 Pt S & E at bedside this AM. Pt reports pain not well controlled overnight, insomnia (chronic) and discomfort at surgical wound sites. Denies N/V/F/C, is tolerating diet. Objective - Vital Signs/Intake and Output Vital Signs (last 24 hours): Temp Pulse Resp BP Pulse Ox 98.5 F 73 20 107/74 98 02/21/17 09:15 02/21/17 09:15 02/21/17 09:15 02/21/17 09:15 02/21/17 09:15 - Medications Medications: Current Medications Ascorbic Acid (Vitamin C 500 Mg Tab) 500 mg PO DAILY [facility] Last Admin: 02/21/17 09:25 Dose: 500 mg Cyanocobalamin (Vitamin B12 1000 Mcg Tab) 1,000 mcg PO DAILY [facility] Last Admin: 02/21/17 10:43 Dose: 1,000 mcg Diphenhydramine HCl (Benadryl) 25 mg IVP Q3 PRN PRN Reason: Allergy symptoms Last Admin: 02/21/17 13:00 Dose: 25 mg Enoxaparin Sodium (Lovenox) 60 mg SC Q12 [facility] Last Admin: 02/15/17 22:00 Dose: Not Given Ferrous Sulfate (Feosol) 325 mg PO BID [facility] Last Admin: 02/21/17 09:25 Dose: 325 mg Hydromorphone HCl (Dilaudid) 1 mg IVP Q3 PRN PRN Reason: Pain, severe (8-10) Last Admin: 02/21/17 09:18 Dose: 1 mg Imipenem/Cilastatin Sodium 500 (mg/ Sodium Chloride) 100 mls @ 100 mls/hr IVPB Q6H [facility] Last Admin: 02/21/17 10:43 Dose: 100 mls/hr Mesalamine (Delzicol) 800 mg PO TID [facility] Last Admin: 02/21/17 14:15 Dose: Not Given Pantoprazole Sodium (Protonix Ec Tab) 40 mg PO DAILY [facility] Last Admin: 02/21/17 09:25 Dose: 40 mg - Labs Labs: 02/19/17 06:35 02/19/17 06:35 PT 13.5 SECONDS (9.7-12.2) H 02/19/17 06:35 INR 1.2 02/19/17 06:35 APTT 31 SECONDS (21-34) 02/19/17 06:35 - Constitutional Appears: Non-toxic, No Acute Distress - Head Exam Head Exam: ATRAUMATIC, NORMAL INSPECTION, NORMOCEPHALIC - Eye Exam Eye Exam: EOMI, Normal appearance - ENT Exam ENT Exam: Mucous Membranes Moist, Normal Exam - Neck Exam Neck Exam: Full ROM, Normal Inspection - Respiratory Exam Respiratory Exam: Clear to Ausculation Bilateral, NORMAL BREATHING PATTERN - Cardiovascular Exam Cardiovascular Exam: REGULAR RHYTHM, +S1, +S2 - GI/Abdominal Exam GI & Abdominal Exam: Soft, Normal Bowel Sounds. absent: Tenderness - Extremities Exam Extremities Exam: Full ROM - Back Exam Back Exam: NORMAL INSPECTION - Neurological Exam Neurological Exam: Alert, Awake, CN II-XII Intact, Oriented x3 - Psychiatric Exam Psychiatric exam: Normal Affect, Normal Mood - Skin Skin Exam: Dry, Normal Color. absent: Intact Additional comments: Pernieum with 2 x 3 cm superficial wound with granulation tissue at edges. Gluteal cleft with midline surgical incisions x 3 w/packing and dressing in place with moderate amount of serous with scant amount of sanguinous strike through. TTP over incisional sites and perineal wound. Assessment and Plan - Assessment and Plan (Free Text) Assessment: 21M POD#1 s/p nitza-anal abscess drainage and debridement 2/2 nitza-rectal fistulas and multiple abscesses due to Crohns. Pt with minimally controlled pain overnight. Plan: POD#1 s/p nitza-anal abscess drainage and debridement 2/2 nitza-rectal fistulas and multiple abscesses due to Crohns -continue current pain mgmt -packing and dressing changed w/iodoform -Cont daily dressing & packing changes with pre-medication -Medihoney and gauze to perineal wound -All other mgmt as per primary team SIDRA attending Yoana PGY-1
[2017-02-21] MEDS: Enoxaparin 60 mg Syringe SC SCH (22:00)
[2017-02-22] MEDS: HYDROmorphone 1 mg/ml ISec IVP PRN ×8 (01:02→22:07)
[2017-02-22] MEDS: DiphenhydrAMINE 50 mg/ml Inj IVP PRN ×8 (01:02→22:07)
--- NOTE | 2017-02-22 06:58 | CP.PCM.PN ---
Subjective - Date & Time of Evaluation Date of Evaluation: 02/22/17 Time of Evaluation: 07:40 - Subjective Subjective: cllinically same Objective - Vital Signs/Intake and Output Vital Signs (last 24 hours): Temp Pulse Resp BP Pulse Ox 98.6 F 101 H 20 102/68 100 02/22/17 00:00 02/22/17 00:00 02/22/17 00:00 02/22/17 00:00 02/22/17 00:00 Intake and Output: 02/21/17 02/22/17 18:59 06:59 Intake Total 350 Balance 350 - Medications Medications: Current Medications Ascorbic Acid (Vitamin C 500 Mg Tab) 500 mg PO DAILY [facility] Last Admin: 02/21/17 09:25 Dose: 500 mg Cyanocobalamin (Vitamin B12 1000 Mcg Tab) 1,000 mcg PO DAILY [facility] Last Admin: 02/21/17 10:43 Dose: 1,000 mcg Diphenhydramine HCl (Benadryl) 25 mg IVP Q3 PRN PRN Reason: Allergy symptoms Last Admin: 02/22/17 03:58 Dose: 25 mg Enoxaparin Sodium (Lovenox) 60 mg SC Q12 [facility] Last Admin: 02/21/17 22:00 Dose: 60 mg Ferrous Sulfate (Feosol) 325 mg PO BID [facility] Last Admin: 02/21/17 09:25 Dose: 325 mg Hydromorphone HCl (Dilaudid) 1 mg IVP Q3 PRN PRN Reason: Pain, severe (8-10) Last Admin: 02/22/17 03:58 Dose: 1 mg Imipenem/Cilastatin Sodium 500 (mg/ Sodium Chloride) 100 mls @ 100 mls/hr IVPB Q6H [facility] Last Admin: 02/22/17 03:58 Dose: 100 mls/hr Mesalamine (Delzicol) 800 mg PO TID [facility] Last Admin: 02/21/17 14:15 Dose: Not Given Pantoprazole Sodium (Protonix Ec Tab) 40 mg PO DAILY [facility] Last Admin: 02/21/17 09:25 Dose: 40 mg - Labs Labs: 02/19/17 06:35 02/19/17 06:35 PT 13.5 SECONDS (9.7-12.2) H 02/19/17 06:35 INR 1.2 02/19/17 06:35 APTT 31 SECONDS (21-34) 02/19/17 06:35 - Constitutional Appears: Well - Head Exam Head Exam: ATRAUMATIC, NORMAL INSPECTION, NORMOCEPHALIC - Eye Exam Eye Exam: EOMI, Normal appearance, PERRL Pupil Exam: NORMAL ACCOMODATION, PERRL - ENT Exam ENT Exam: Mucous Membranes Moist, Normal Exam - Neck Exam Neck Exam: Full ROM, Normal Inspection. absent: Lymphadenopathy - Respiratory Exam Respiratory Exam: Decreased Breath Sounds - Cardiovascular Exam Cardiovascular Exam: REGULAR RHYTHM, +S1, +S2 - GI/Abdominal Exam GI & Abdominal Exam: Soft, Diminished Bowel Sounds - Rectal Exam Rectal Exam: Deferred Assessment and Plan (1) DVT (deep venous thrombosis) Status: Acute (2) Diarrhea Status: Acute (3) Intractable pain Status: Acute (4) Wound of right buttock Status: Acute (5) Abdominal pain Status: Acute (6) Abscess Status: Acute (7) Constipation Status: Acute (8) Crohn disease Status: Acute (9) Diarrhea Status: Acute (10) Encounter for wound care Status: Acute (11) Fever Status: Acute (12) Foreign body Status: Acute (13) Intractable abdominal pain Status: Acute (14) Prophylactic measure Status: Acute (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
--- NOTE | 2017-02-22 07:58 | CP.PCM.PN ---
<Janeth Lees - Last Filed: 02/22/17 07:56> Subjective - Date & Time of Evaluation Date of Evaluation: 02/22/17 Time of Evaluation: 07:36 - Subjective Subjective: General sx progress note for Dr. Taylor-Janeth Lees, PGY-1 Pt S & E at bedside this AM. Pt continues to report pain not well controlled overnight/unable to lay on back due to buttock pain, insomnia (chronic) and discomfort at surgical wound sites. Denies N/V/F/C, is tolerating diet, reports decreased appetite. Objective - Vital Signs/Intake and Output Vital Signs (last 24 hours): Temp Pulse Resp BP Pulse Ox 98.6 F 101 H 20 102/68 100 02/22/17 00:00 02/22/17 00:00 02/22/17 00:00 02/22/17 00:00 02/22/17 00:00 Intake and Output: 02/22/17 02/22/17 06:59 18:59 Intake Total 350 Balance 350 - Medications Medications: Current Medications Ascorbic Acid (Vitamin C 500 Mg Tab) 500 mg PO DAILY [facility] Last Admin: 02/21/17 09:25 Dose: 500 mg Cyanocobalamin (Vitamin B12 1000 Mcg Tab) 1,000 mcg PO DAILY [facility] Last Admin: 02/21/17 10:43 Dose: 1,000 mcg Diphenhydramine HCl (Benadryl) 25 mg IVP Q3 PRN PRN Reason: Allergy symptoms Last Admin: 02/22/17 07:00 Dose: 25 mg Enoxaparin Sodium (Lovenox) 60 mg SC Q12 [facility] Last Admin: 02/21/17 22:00 Dose: 60 mg Ferrous Sulfate (Feosol) 325 mg PO BID [facility] Last Admin: 02/21/17 09:25 Dose: 325 mg Hydromorphone HCl (Dilaudid) 1 mg IVP Q3 PRN PRN Reason: Pain, severe (8-10) Last Admin: 02/22/17 07:00 Dose: 1 mg Imipenem/Cilastatin Sodium 500 (mg/ Sodium Chloride) 100 mls @ 100 mls/hr IVPB Q6H [facility] Last Admin: 02/22/17 03:58 Dose: 100 mls/hr Mesalamine (Delzicol) 800 mg PO TID [facility] Last Admin: 02/21/17 14:15 Dose: Not Given Pantoprazole Sodium (Protonix Ec Tab) 40 mg PO DAILY [facility] Last Admin: 02/21/17 09:25 Dose: 40 mg - Labs Labs: 02/19/17 06:35 02/19/17 06:35 PT 13.5 SECONDS (9.7-12.2) H 02/19/17 06:35 INR 1.2 02/19/17 06:35 APTT 31 SECONDS (21-34) 02/19/17 06:35 - Constitutional Appears: Non-toxic, No Acute Distress - Head Exam Head Exam: ATRAUMATIC, NORMAL INSPECTION, NORMOCEPHALIC - Eye Exam Eye Exam: EOMI, Normal appearance - ENT Exam ENT Exam: Mucous Membranes Moist, Normal Exam - Neck Exam Neck Exam: Full ROM, Normal Inspection - Respiratory Exam Respiratory Exam: Clear to Ausculation Bilateral, NORMAL BREATHING PATTERN - Cardiovascular Exam Cardiovascular Exam: REGULAR RHYTHM, +S1, +S2 - GI/Abdominal Exam GI & Abdominal Exam: Soft, Normal Bowel Sounds. absent: Distended, Firm, Guarding, Rigid, Tenderness Additional comments: Colostomy with large amount of dark brown formed stool - Extremities Exam Extremities Exam: absent: Tenderness - Back Exam Back Exam: NORMAL INSPECTION - Neurological Exam Neurological Exam: Alert, Awake, Oriented x3 - Psychiatric Exam Psychiatric exam: Normal Affect, Normal Mood - Skin Skin Exam: Dry, Normal Color, Warm. absent: Intact Additional comments: gluteal cleft with 3 midline incisions with packing in place, scant amount of serosanguinous drainage and strike through on dressings and packing. Perineal would with granulation tissue- tender to palpation and pressure Assessment and Plan - Assessment and Plan (Free Text) Assessment: 21M POD#2 s/p nitza-anal abscess drainage and debridement 2/2 nitza-rectal fistulas and multiple abscesses due to Crohns. Pt with minimally controlled pain overnight. 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 -cont current pain mgmt -Cont daily dressing & packing changes with pre-medication -Medihoney and gauze to perineal wound -All other mgmt as per primary team SIDRA attending Yoana PGY-1 <Temo Taylor - Last Filed: 03/01/17 16:24> Objective - Vital Signs/Intake and Output Vital Signs (last 24 hours): Temp Pulse Resp BP Pulse Ox 98.7 F 105 H 20 105/71 100 03/01/17 00:00 03/01/17 00:00 03/01/17 00:00 03/01/17 00:00 03/01/17 00:00 Intake and Output: 03/01/17 03/01/17 06:59 18:59 Intake Total 450 500 Output Total 950 700 Balance -500 -200 - Medications Medications: Current Medications Diphenhydramine HCl (Benadryl) 25 mg IVP Q4H PRN PRN Reason: Itching / Pruritus Last Admin: 03/01/17 13:31 Dose: 25 mg Enoxaparin Sodium (Lovenox) 60 mg SC Q12 [facility] Last Admin: 03/01/17 09:27 Dose: Not Given Escitalopram Oxalate (Lexapro) 5 mg PO DAILY [facility] Last Admin: 03/01/17 09:27 Dose: 5 mg Hydromorphone HCl (Dilaudid) 1 mg IVP Q4H PRN PRN Reason: Pain, severe (8-10) Last Admin: 03/01/17 13:31 Dose: 1 mg Ciprofloxacin (Cipro 400mg/200ml Dsw) 400 mg in 200 mls @ 133 mls/hr IVPB Q12H [facility] Last Admin: 03/01/17 05:22 Dose: 133 mls/hr Lactobacillus Acidophilus (Bacid Acidophilus) 1 cap PO BID [facility] Last Admin: 03/01/17 09:27 Dose: 1 cap Mesalamine (Delzicol) 800 mg PO TID [facility] Last Admin: 03/01/17 13:31 Dose: 800 mg Ondansetron HCl (Zofran Inj) 4 mg IVP Q6 PRN PRN Reason: Nausea/Vomiting Last Admin: 02/24/17 17:56 Dose: 4 mg Quetiapine Fumarate (Seroquel) 100 mg PO HS [facility] Last Admin: 02/28/17 21:39 Dose: 100 mg - Labs Labs: 02/26/17 06:49 02/26/17 06:49 PT 13.5 SECONDS (9.7-12.2) H 02/19/17 06:35 INR 1.2 02/19/17 06:35 APTT 31 SECONDS (21-34) 02/19/17 06:35 Attending/Attestation - Attestation I have personally seen and examined this patient.: Yes I have fully participated in the care of the patient.: Yes I have reviewed all pertinent clinical information, including history, physical exam and plan: Yes Notes (Text): 03/01/17 16:24 Pt was seen and examined at bedside on 02/22/17 Agree with above note and assessment Local wound care C/w IV antibiotics
[2017-02-22] MEDS: Pantoprazole 40 mg EC Tab PO SCH (10:01)
[2017-02-22] MEDS: Enoxaparin 60 mg Syringe SC SCH ×3 (10:01→22:07)
--- NOTE | 2017-02-22 17:30 | CP.PCM.PN ---
Subjective - Date & Time of Evaluation Date of Evaluation: 02/22/17 Time of Evaluation: 05:30 - Subjective Subjective: Patient sasy they found three abscess and has packing and dressing,I renewed antibiotics but he will need sitz bath and aggresive therapy to get him off pain meds and also proper cleaning He is also of lovenox but should be restarted. offers no new complaints Objective - Vital Signs/Intake and Output Vital Signs (last 24 hours): Temp Pulse Resp BP Pulse Ox 98.6 F 99 H 20 99/67 L 99 02/22/17 15:00 02/22/17 15:00 02/22/17 15:00 02/22/17 15:00 02/22/17 15:00 Intake and Output: 02/22/17 02/22/17 06:59 18:59 Intake Total 350 400 Output Total 450 Balance 350 -50 - Medications Medications: Current Medications Diphenhydramine HCl (Benadryl) 25 mg IVP Q3 PRN PRN Reason: Allergy symptoms Last Admin: 02/22/17 16:00 Dose: 25 mg Enoxaparin Sodium (Lovenox) 60 mg SC Q12 [facility] Last Admin: 02/22/17 10:10 Dose: Not Given Ferrous Sulfate (Feosol) 325 mg PO BID [facility] Last Admin: 02/22/17 10:00 Dose: 325 mg Hydromorphone HCl (Dilaudid) 1 mg IVP Q3 PRN PRN Reason: Pain, severe (8-10) Last Admin: 02/22/17 16:00 Dose: 1 mg Imipenem/Cilastatin Sodium 500 (mg/ Sodium Chloride) 100 mls @ 100 mls/hr IVPB Q6H [facility] Last Admin: 02/22/17 14:18 Dose: 100 mls/hr Mesalamine (Delzicol) 800 mg PO TID [facility] Last Admin: 02/22/17 13:00 Dose: 800 mg Pantoprazole Sodium (Protonix Ec Tab) 40 mg PO DAILY [facility] Last Admin: 02/22/17 10:01 Dose: 40 mg - Labs Labs: 02/19/17 06:35 02/19/17 06:35 PT 13.5 SECONDS (9.7-12.2) H 02/19/17 06:35 INR 1.2 02/19/17 06:35 APTT 31 SECONDS (21-34) 02/19/17 06:35 - Constitutional Appears: No Acute Distress - Head Exam Head Exam: ATRAUMATIC, NORMOCEPHALIC - Eye Exam Eye Exam: Normal appearance - ENT Exam ENT Exam: Normal Exam - Neck Exam Neck Exam: Normal Inspection - Respiratory Exam Respiratory Exam: Clear to Ausculation Bilateral, NORMAL BREATHING PATTERN - Cardiovascular Exam Cardiovascular Exam: REGULAR RHYTHM - GI/Abdominal Exam GI & Abdominal Exam: Soft Additional comments: colostomy present - Extremities Exam Extremities Exam: Normal Inspection Assessment and Plan (1) Abscess Status: Acute (2) Crohn disease Status: Acute (3) DVT (deep venous thrombosis) Status: Acute - Assessment and Plan (Free Text) Assessment: patient continued on imipenem at present only gram negative isolated on recent culture will need to be put back on lovenox as had Dvt in neck
[2017-02-23] MEDS: DiphenhydrAMINE 50 mg/ml Inj IVP PRN ×8 (01:00→22:07)
[2017-02-23] MEDS: HYDROmorphone 1 mg/ml ISec IVP PRN ×2 (01:00→04:04)
[2017-02-23] MEDS: HYDROmorphone 0.5 mg/0.5 ml ISec IVP PRN ×6 (07:07→22:08)
--- NOTE | 2017-02-23 07:24 | CP.PCM.PN ---
<Janeth Lees - Last Filed: 02/23/17 16:42> Subjective - Date & Time of Evaluation Date of Evaluation: 02/23/17 Time of Evaluation: 07:00 - Subjective Subjective: General sx progress note for Dr. Taylor-Janeth Lees, PGY-1 Pt S & E at bedside this AM. Pt continues to be unable to lay on back while sleeping due to buttock pain. Denies N/V/F/C, is tolerating diet. Objective - Vital Signs/Intake and Output Vital Signs (last 24 hours): Temp Pulse Resp BP Pulse Ox 98.4 F 89 20 101/69 99 02/23/17 00:00 02/23/17 00:00 02/23/17 00:00 02/23/17 00:00 02/23/17 00:00 Intake and Output: 02/23/17 02/23/17 06:59 18:59 Intake Total 930 Balance 930 - Medications Medications: Current Medications Diphenhydramine HCl (Benadryl) 25 mg IVP Q3 PRN PRN Reason: Allergy symptoms Last Admin: 02/23/17 07:07 Dose: 25 mg Enoxaparin Sodium (Lovenox) 60 mg SC Q12 [facility] Last Admin: 02/22/17 22:07 Dose: 60 mg Ferrous Sulfate (Feosol) 325 mg PO BID [facility] Last Admin: 02/22/17 17:40 Dose: 325 mg Hydromorphone HCl (Dilaudid) 1 mg IVP Q3 PRN PRN Reason: Pain, severe (8-10) Last Admin: 02/23/17 07:07 Dose: 1 mg Imipenem/Cilastatin Sodium 500 (mg/ Sodium Chloride) 100 mls @ 100 mls/hr IVPB Q6H [facility] Last Admin: 02/23/17 01:19 Dose: 100 mls/hr Mesalamine (Delzicol) 800 mg PO TID [facility] Last Admin: 02/22/17 17:41 Dose: 800 mg Pantoprazole Sodium (Protonix Ec Tab) 40 mg PO DAILY [facility] Last Admin: 02/22/17 10:01 Dose: 40 mg - Labs Labs: 02/19/17 06:35 02/19/17 06:35 PT 13.5 SECONDS (9.7-12.2) H 02/19/17 06:35 INR 1.2 02/19/17 06:35 APTT 31 SECONDS (21-34) 02/19/17 06:35 - Constitutional Appears: Non-toxic, No Acute Distress - Head Exam Head Exam: ATRAUMATIC, NORMAL INSPECTION, NORMOCEPHALIC - Eye Exam Eye Exam: EOMI, Normal appearance - ENT Exam ENT Exam: Mucous Membranes Moist, Normal Exam - Respiratory Exam Respiratory Exam: Clear to Ausculation Bilateral, NORMAL BREATHING PATTERN - Cardiovascular Exam Cardiovascular Exam: REGULAR RHYTHM, +S1, +S2 - GI/Abdominal Exam GI & Abdominal Exam: Soft, Normal Bowel Sounds. absent: Tenderness Additional comments: colostomy in place - Extremities Exam Extremities Exam: absent: Pedal Edema - Back Exam Back Exam: NORMAL INSPECTION - Neurological Exam Neurological Exam: Alert, Awake, Oriented x3 - Psychiatric Exam Psychiatric exam: Normal Affect, Normal Mood - Skin Skin Exam: Dry, Normal Color, Warm. absent: Intact Additional comments: gluteal cleft with 3 midline incisions with packing in place, scant amount of purulent drainage and strike through on dressings and packing. 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 -cont current pain mgmt -Cont daily dressing & packing changes with pre-medication -Medihoney and gauze to perineal wound -Wound cx pos for citrobacter diversus -All other mgmt as per primary team and consultants DW attending Yoana PGY-1 <Temo Taylor B - Last Filed: 03/01/17 16:25> Objective - Vital Signs/Intake and Output Vital Signs (last 24 hours): Temp Pulse Resp BP Pulse Ox 98.7 F 105 H 20 105/71 100 03/01/17 00:00 03/01/17 00:00 03/01/17 00:00 03/01/17 00:00 03/01/17 00:00 Intake and Output: 03/01/17 03/01/17 06:59 18:59 Intake Total 450 500 Output Total 950 700 Balance -500 -200 - Medications Medications: Current Medications Diphenhydramine HCl (Benadryl) 25 mg IVP Q4H PRN PRN Reason: Itching / Pruritus Last Admin: 03/01/17 13:31 Dose: 25 mg Enoxaparin Sodium (Lovenox) 60 mg SC Q12 [facility] Last Admin: 03/01/17 09:27 Dose: Not Given Escitalopram Oxalate (Lexapro) 5 mg PO DAILY [facility] Last Admin: 03/01/17 09:27 Dose: 5 mg Hydromorphone HCl (Dilaudid) 1 mg IVP Q4H PRN PRN Reason: Pain, severe (8-10) Last Admin: 03/01/17 13:31 Dose: 1 mg Ciprofloxacin (Cipro 400mg/200ml Dsw) 400 mg in 200 mls @ 133 mls/hr IVPB Q12H [facility] Last Admin: 03/01/17 05:22 Dose: 133 mls/hr Lactobacillus Acidophilus (Bacid Acidophilus) 1 cap PO BID [facility] Last Admin: 03/01/17 09:27 Dose: 1 cap Mesalamine (Delzicol) 800 mg PO TID [facility] Last Admin: 03/01/17 13:31 Dose: 800 mg Ondansetron HCl (Zofran Inj) 4 mg IVP Q6 PRN PRN Reason: Nausea/Vomiting Last Admin: 02/24/17 17:56 Dose: 4 mg Quetiapine Fumarate (Seroquel) 100 mg PO HS [facility] Last Admin: 02/28/17 21:39 Dose: 100 mg - Labs Labs: 02/26/17 06:49 02/26/17 06:49 PT 13.5 SECONDS (9.7-12.2) H 02/19/17 06:35 INR 1.2 02/19/17 06:35 APTT 31 SECONDS (21-34) 02/19/17 06:35 Attending/Attestation - Attestation I have personally seen and examined this patient.: Yes I have fully participated in the care of the patient.: Yes I have reviewed all pertinent clinical information, including history, physical exam and plan: Yes Notes (Text): 03/01/17 16:25 Pt was seen and examined at bedside on 02/23/17 Agree with above note and assessment .
[2017-02-23] MEDS: Enoxaparin 60 mg Syringe SC SCH ×2 (09:18→22:07)
[2017-02-23] MEDS: Pantoprazole 40 mg EC Tab PO SCH (09:18)
[2017-02-23 10:59] LABS: HEMOGLOBIN 9.1 g/dL (12.0-18.0); MEAN CELL VOLUME 70.3 fL (80.0-94.0); MEAN CORPUSCULAR HEMOGLOBIN 21.5 pg (27.0-31.0); MEAN CORPUSCULAR HGB CONC 30.6 g/dL (33.0-37.0); MEAN PLATELET VOLUME 8.1 fL (7.2-11.7); RBC 4.26 Mil/uL (4.40-5.90); RED CELL DISTRIBUTION WIDTH 22.1 % (11.5-14.5); WHITE BLOOD COUNT 8.8 K/uL (4.8-10.8)
[2017-02-23 11:30] LABS: BLOOD UREA NITROGEN 9 mg/dL (9-20); GFR AFRICAN-AMERICAN > 60; GFR NON-AFRICAN AMERICAN > 60
[2017-02-23 11:31] LABS: CALCIUM 8.8 mg/dl (8.6-10.4)
--- NOTE | 2017-02-23 13:37 | CP.PCM.PN ---
Subjective - Date & Time of Evaluation Date of Evaluation: 02/23/17 Time of Evaluation: 13:37 Objective - Vital Signs/Intake and Output Vital Signs (last 24 hours): Temp Pulse Resp BP Pulse Ox 98.1 F 82 20 95/59 L 98 02/23/17 07:56 02/23/17 07:56 02/23/17 07:56 02/23/17 07:56 02/23/17 07:56 Intake and Output: 02/23/17 02/23/17 06:59 18:59 Intake Total 930 Balance 930 - Medications Medications: Current Medications Diphenhydramine HCl (Benadryl) 25 mg IVP Q3 PRN PRN Reason: Allergy symptoms Last Admin: 02/23/17 13:06 Dose: 25 mg Enoxaparin Sodium (Lovenox) 60 mg SC Q12 [facility] Last Admin: 02/23/17 09:18 Dose: Not Given Ferrous Sulfate (Feosol) 325 mg PO BID [facility] Last Admin: 02/23/17 09:18 Dose: 325 mg Hydromorphone HCl (Dilaudid) 1 mg IVP Q3 PRN PRN Reason: Pain, severe (8-10) Last Admin: 02/23/17 13:05 Dose: 1 mg Imipenem/Cilastatin Sodium 500 (mg/ Sodium Chloride) 100 mls @ 100 mls/hr IVPB Q6H [facility] Last Admin: 02/23/17 13:25 Dose: 100 mls/hr Mesalamine (Delzicol) 800 mg PO TID [facility] Last Admin: 02/23/17 13:06 Dose: 800 mg Pantoprazole Sodium (Protonix Ec Tab) 40 mg PO DAILY [facility] Last Admin: 02/23/17 09:18 Dose: 40 mg - Labs Labs: 02/23/17 10:33 02/23/17 10:33 PT 13.5 SECONDS (9.7-12.2) H 02/19/17 06:35 INR 1.2 02/19/17 06:35 APTT 31 SECONDS (21-34) 02/19/17 06:35
[2017-02-23] MEDS ORDERED: Tigecycline 100 MG in Dextrose 5% In Water 100 ML IVPB ONE (16:05)
--- NOTE | 2017-02-23 16:05 | CP.PCM.PN ---
Subjective - Date & Time of Evaluation Date of Evaluation: 02/23/17 Time of Evaluation: 04:05 - Subjective Subjective: Patient was seen today he just had a shower and was waiting for surgical instrument repair specialist to do the dressing,I told him of citrobacter in the wound and that if wounds improve he need to go home soon Objective - Vital Signs/Intake and Output Vital Signs (last 24 hours): Temp Pulse Resp BP Pulse Ox 98.1 F 82 20 95/59 L 98 02/23/17 07:56 02/23/17 07:56 02/23/17 07:56 02/23/17 07:56 02/23/17 07:56 Intake and Output: 02/23/17 02/23/17 06:59 18:59 Intake Total 930 200 Output Total 400 Balance 930 -200 - Medications Medications: Current Medications Diphenhydramine HCl (Benadryl) 25 mg IVP Q3 PRN PRN Reason: Allergy symptoms Last Admin: 02/23/17 13:06 Dose: 25 mg Enoxaparin Sodium (Lovenox) 60 mg SC Q12 [facility] Last Admin: 02/23/17 09:18 Dose: Not Given Ferrous Sulfate (Feosol) 325 mg PO BID [facility] Last Admin: 02/23/17 09:18 Dose: 325 mg Hydromorphone HCl (Dilaudid) 1 mg IVP Q3 PRN PRN Reason: Pain, severe (8-10) Last Admin: 02/23/17 13:05 Dose: 1 mg Imipenem/Cilastatin Sodium 500 (mg/ Sodium Chloride) 100 mls @ 100 mls/hr IVPB Q6H [facility] Last Admin: 02/23/17 13:25 Dose: 100 mls/hr Mesalamine (Delzicol) 800 mg PO TID [facility] Last Admin: 02/23/17 13:06 Dose: 800 mg Pantoprazole Sodium (Protonix Ec Tab) 40 mg PO DAILY [facility] Last Admin: 02/23/17 09:18 Dose: 40 mg - Labs Labs: 02/23/17 10:33 02/23/17 10:33 PT 13.5 SECONDS (9.7-12.2) H 02/19/17 06:35 INR 1.2 02/19/17 06:35 APTT 31 SECONDS (21-34) 02/19/17 06:35 - Constitutional Appears: No Acute Distress - Head Exam Head Exam: NORMAL INSPECTION - Eye Exam Eye Exam: Normal appearance Pupil Exam: PERRL - ENT Exam ENT Exam: Mucous Membranes Moist - Neck Exam Additional comments: neck movement improving - Respiratory Exam Respiratory Exam: Clear to Ausculation Bilateral - Cardiovascular Exam Cardiovascular Exam: REGULAR RHYTHM, RRR. absent: Bradycardia, Tachycardia, Clicks, Diastolic murmur, Gallop, Irregular Rhythm, JVD, Rubs, +S1, +S2, +S4, Murmur - GI/Abdominal Exam GI & Abdominal Exam: Normal Bowel Sounds. absent: Bruit, Distended, Firm, Guarding, Rigid, Soft, Tenderness, Diminished Bowel Sounds, Hernia, Hyperactive Bowel Sounds, Hypoactive Bowel Sounds, Organomegaly, Pulsatile Mass, Rebound, Mass Additional comments: colostomy present - Extremities Exam Extremities Exam: Normal Inspection - Psychiatric Exam Psychiatric exam: Flat Affect - Skin Additional comments: has perineal abscess and skin excoriation between his buttocks with dressing present Assessment and Plan (1) Abscess Assessment & Plan: pt continues to have infected abscess and skin excoriation in between the buttock Status: Acute (2) Crohn disease Assessment & Plan: patient sAYS PILLS ARE SEEN UNABSORBED IN HIS COLOSTOMY BAG Status: Acute (3) DVT (deep venous thrombosis) Assessment & Plan: NEED TO ON LOVENOX FOR THE NECK DVT Status: Acute - Assessment and Plan (Free Text) Assessment: hoping that with i&D patient abscess will be lanced and by the end of this week can get him home
[2017-02-24] MEDS: DiphenhydrAMINE 50 mg/ml Inj IVP PRN ×8 (01:03→22:07)
[2017-02-24] MEDS: HYDROmorphone 0.5 mg/0.5 ml ISec IVP PRN ×8 (01:04→22:07)
[2017-02-24] MEDS ORDERED: Tigecycline 50 MG in Dextrose 5% In Water 100 ML IVPB SCH (05:00)
[2017-02-24] MEDS: Enoxaparin 60 mg Syringe SC SCH ×2 (09:55→22:08)
[2017-02-24] MEDS: Pantoprazole 40 mg EC Tab PO SCH (10:30)
--- NOTE | 2017-02-24 13:19 | CP.PCM.PN ---
Objective - Vital Signs/Intake and Output Vital Signs (last 24 hours): Temp Pulse Resp BP Pulse Ox 98.3 F 82 20 100/60 97 02/24/17 07:44 02/24/17 07:44 02/24/17 07:44 02/24/17 07:44 02/24/17 07:44 Intake and Output: 02/24/17 02/24/17 06:59 18:59 Intake Total 1040 Balance 1040 - Medications Medications: Current Medications Diphenhydramine HCl (Benadryl) 25 mg IVP Q3 PRN PRN Reason: Allergy symptoms Last Admin: 02/24/17 13:00 Dose: 25 mg Enoxaparin Sodium (Lovenox) 60 mg SC Q12 [facility] Last Admin: 02/24/17 09:55 Dose: 60 mg Ferrous Sulfate (Feosol) 325 mg PO BID [facility] Last Admin: 02/24/17 09:55 Dose: 325 mg Hydromorphone HCl (Dilaudid) 1 mg IVP Q3 PRN PRN Reason: Pain, severe (8-10) Last Admin: 02/24/17 13:00 Dose: 1 mg Imipenem/Cilastatin Sodium 500 (mg/ Sodium Chloride) 100 mls @ 100 mls/hr IVPB Q6H [facility] Last Admin: 02/24/17 08:18 Dose: 100 mls/hr Tigecycline 50 mg/ Sodium (Chloride) 100 mls @ 100 mls/hr IVPB Q12H [facility] Mesalamine (Delzicol) 800 mg PO TID [facility] Last Admin: 02/24/17 09:56 Dose: 800 mg Pantoprazole Sodium (Protonix Ec Tab) 40 mg PO DAILY [facility] Last Admin: 02/24/17 10:30 Dose: 40 mg - Labs Labs: 02/23/17 10:33 02/23/17 10:33 PT 13.5 SECONDS (9.7-12.2) H 02/19/17 06:35 INR 1.2 02/19/17 06:35 APTT 31 SECONDS (21-34) 02/19/17 06:35
--- NOTE | 2017-02-24 18:55 | CP.PCM.PN ---
Subjective - Date & Time of Evaluation Date of Evaluation: 02/24/17 Time of Evaluation: 18:52 - Subjective Subjective: Surgery: Dr. Taylor Patient reports nausea and says he vomited yellow mucous fluid last night. He denies f/c. Per nursing no acute events. Objective - Vital Signs/Intake and Output Vital Signs (last 24 hours): Temp Pulse Resp BP Pulse Ox 98.2 F 101 H 20 100/64 97 02/24/17 15:00 02/24/17 15:00 02/24/17 15:00 02/24/17 15:00 02/24/17 15:00 Intake and Output: 02/24/17 02/24/17 06:59 18:59 Intake Total 1040 580 Output Total 500 Balance 1040 80 - Medications Medications: Current Medications Diphenhydramine HCl (Benadryl) 25 mg IVP Q3 PRN PRN Reason: Allergy symptoms Last Admin: 02/24/17 16:04 Dose: 25 mg Enoxaparin Sodium (Lovenox) 60 mg SC Q12 [facility] Last Admin: 02/24/17 09:55 Dose: 60 mg Ferrous Sulfate (Feosol) 325 mg PO BID [facility] Last Admin: 02/24/17 17:56 Dose: 325 mg Hydromorphone HCl (Dilaudid) 1 mg IVP Q3 PRN PRN Reason: Pain, severe (8-10) Last Admin: 02/24/17 16:05 Dose: 1 mg Imipenem/Cilastatin Sodium 500 (mg/ Sodium Chloride) 100 mls @ 100 mls/hr IVPB Q6H [facility] Last Admin: 02/24/17 14:22 Dose: 100 mls/hr Tigecycline 50 mg/ Sodium (Chloride) 100 mls @ 100 mls/hr IVPB Q12H [facility] Last Admin: 02/24/17 16:13 Dose: 100 mls/hr Mesalamine (Delzicol) 800 mg PO TID [facility] Last Admin: 02/24/17 17:56 Dose: 800 mg Ondansetron HCl (Zofran Inj) 4 mg IVP Q6 PRN PRN Reason: Nausea/Vomiting Last Admin: 02/24/17 17:56 Dose: 4 mg Pantoprazole Sodium (Protonix Ec Tab) 40 mg PO DAILY [facility] Last Admin: 02/24/17 10:30 Dose: 40 mg - Labs Labs: 02/23/17 10:33 02/23/17 10:33 PT 13.5 SECONDS (9.7-12.2) H 02/19/17 06:35 INR 1.2 02/19/17 06:35 APTT 31 SECONDS (21-34) 02/19/17 06:35 - Constitutional Appears: Non-toxic, No Acute Distress - Head Exam Head Exam: ATRAUMATIC, NORMOCEPHALIC - Eye Exam Eye Exam: EOMI, Normal appearance - ENT Exam ENT Exam: Mucous Membranes Moist - Respiratory Exam Respiratory Exam: NORMAL BREATHING PATTERN. absent: Respiratory Distress - Cardiovascular Exam Cardiovascular Exam: REGULAR RHYTHM. absent: Tachycardia - Rectal Exam Additional comments: nitza-gluteal area w/ 3 incisions and iodoform packing. All removed w/ seropurulent fluid discharge draining from cavities. iodoform packing replaced. Surrounding skin is excoriated. medihoney placed in perineum. Assessment and Plan - Assessment and Plan (Free Text) Assessment: 21 y/o male w/ Crohn's disease s/p nitza-anal abscess drainage x3 and debridement , POD4 -cont current pain mgmt -Cont daily dressing & packing changes with pre-medication, patient must shower prior to packing change -Medihoney and gauze to perineal wound -d/w Dr. Claudia Merritt PGY3
[2017-02-25] MEDS: HYDROmorphone 0.5 mg/0.5 ml ISec IVP PRN ×5 (01:03→13:05)
[2017-02-25] MEDS: DiphenhydrAMINE 50 mg/ml Inj IVP PRN ×6 (01:04→17:00)
--- NOTE | 2017-02-25 08:10 | CP.PCM.PN ---
Subjective - Date & Time of Evaluation Date of Evaluation: 02/25/17 Time of Evaluation: 06:30 Objective - Vital Signs/Intake and Output Vital Signs (last 24 hours): Temp Pulse Resp BP Pulse Ox 98.9 F 97 H 20 100/65 99 02/25/17 00:00 02/25/17 00:00 02/25/17 00:00 02/25/17 00:00 02/25/17 00:00 Intake and Output: 02/25/17 02/25/17 06:59 18:59 Intake Total 1080 Balance 1080 - Medications Medications: Current Medications Diphenhydramine HCl (Benadryl) 25 mg IVP Q3 PRN PRN Reason: Allergy symptoms Last Admin: 02/25/17 07:03 Dose: 25 mg Enoxaparin Sodium (Lovenox) 60 mg SC Q12 [facility] Last Admin: 02/24/17 22:08 Dose: Not Given Ferrous Sulfate (Feosol) 325 mg PO BID [facility] Last Admin: 02/24/17 17:56 Dose: 325 mg Hydromorphone HCl (Dilaudid) 1 mg IVP Q3 PRN PRN Reason: Pain, severe (8-10) Last Admin: 02/25/17 07:03 Dose: 1 mg Imipenem/Cilastatin Sodium 500 (mg/ Sodium Chloride) 100 mls @ 100 mls/hr IVPB Q6H [facility] Last Admin: 02/25/17 01:02 Dose: 100 mls/hr Tigecycline 50 mg/ Sodium (Chloride) 100 mls @ 100 mls/hr IVPB Q12H [facility] Last Admin: 02/25/17 04:03 Dose: 100 mls/hr Mesalamine (Delzicol) 800 mg PO TID [facility] Last Admin: 02/24/17 17:56 Dose: 800 mg Ondansetron HCl (Zofran Inj) 4 mg IVP Q6 PRN PRN Reason: Nausea/Vomiting Last Admin: 02/24/17 17:56 Dose: 4 mg Pantoprazole Sodium (Protonix Ec Tab) 40 mg PO DAILY [facility] Last Admin: 02/24/17 10:30 Dose: 40 mg - Labs Labs: 02/23/17 10:33 02/23/17 10:33 PT 13.5 SECONDS (9.7-12.2) H 02/19/17 06:35 INR 1.2 02/19/17 06:35 APTT 31 SECONDS (21-34) 02/19/17 06:35
[2017-02-25] MEDS: Pantoprazole 40 mg EC Tab PO SCH (10:17)
[2017-02-25] MEDS: Enoxaparin 60 mg Syringe SC SCH ×3 (10:20→21:55)
--- NOTE | 2017-02-25 14:18 | PCM.PSYCH ---
Initial Psychiatric Evaluation - Initial Psychiatric Evaluation Type of Admission: Voluntary Legal Status: Capacity Chief Complaint (in patient's own words): "I feel sad" History of Present Illness and Precipitating Events: The patient seen, chart reviewed and case discussed. Consultation is requested for patient's depression. This is a 21-year-old [place] male, single, unemployed, living with his mother and sister. The patient has Crohn's disease and he has been hospitalized many times back-to- back. 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 He claims he is depressed because of coming back to the hospital again, and pain. However he states he is better than before and that Lexapro had helped in the past. He reports poor sleep, poor appetite, somewhat low self-esteem, anhedonia and poor concentration. He denies feeling suicidal or homicidal. He has no manic or psychotic symptoms. Past psych history: No admissions but used antidepressants on and off. No suicide attempts Family psych history: Denies Medical history: Crohn's disease Current Medications: Active Medications Generic Name Dose Route Start Last Admin Trade Name Freq PRN Reason Stop Dose Admin Diphenhydramine HCl 25 mg 02/16/17 00:53 02/25/17 13:02 Benadryl IVP 25 mg Q3 PRN Administration Allergy symptoms Enoxaparin Sodium 60 mg 02/10/17 12:30 02/25/17 10:20 Lovenox SC Not Given Q12 [facility] Ferrous Sulfate 325 mg 01/31/17 10:00 02/25/17 10:20 Feosol PO 325 mg BID [facility] Administration Hydromorphone HCl 1 mg 02/23/17 07:15 02/25/17 13:05 Dilaudid IVP 1 mg Q3 PRN Administration Pain, severe (8-10) Imipenem/Cilastatin Sodium 500 100 mls @ 100 mls/hr 02/22/17 14:00 02/25/17 13:59 mg/ Sodium Chloride IVPB 100 mls/hr Q6H [facility] Administration Tigecycline 50 mg/ Sodium 100 mls @ 100 mls/hr 02/24/17 17:00 02/25/17 04:03 Chloride IVPB 100 mls/hr Q12H [facility] Administration Mesalamine 800 mg 02/16/17 18:00 02/25/17 13:59 Delzicol PO 800 mg TID [facility] Administration Ondansetron HCl 4 mg 02/24/17 17:45 02/24/17 17:56 Zofran Inj IVP 4 mg Q6 PRN Administration Nausea/Vomiting Pantoprazole Sodium 40 mg 01/31/17 10:00 02/25/17 10:17 Protonix Ec Tab PO 40 mg DAILY [facility] Administration Past Psychiatric History - Past Psychiatric History Previous Treatment History: None Pertinent Medical Hx (Current Medical&Sleep Prob, Allergies): Allergies Allergy/AdvReac Type Severity Reaction Status Date / Time morphine Allergy ITCHING Verified 01/30/17 17:09 oxyCODONE/Acetaminophen [Percocet 5/325 mg Tab] 1 tab PO Q6H PRN #20 tab Cyanocobalamin [Vitamin B12 1000 mcg Tab] 1 tab PO DAILY 12/21/16 Methylprednisolone [Medrol Dose Pack (21 tabs)] 4 mg PO DAILY #21 mg 01/09/17 Sulfamethoxazole/Trimethoprim [Bactrim DS 800 mg-160 mg] 1 tab PO Q12H #28 tab 01/09/17 Ferrous Sulfate 325 mg PO BID #60 tablet 01/15/17 Adalimumab [Humira] 40 mg SQ Q2W 01/30/17 DiphenhydrAMINE [Benadryl] 25 mg PO BID 01/30/17 Mesalamine [Asacol HD 800mg] 800 mg PO DAILY 01/30/17 Oxycodone HCl/Acetaminophen [Acetaminophen-Oxycodone 325 mg-5 mg] 1 tab PO BID 01/30/17 Review of Systems - Psychiatric Psychiatric: Abnormal Sleep Pattern, Anhedonia, Anxiety, Depression, Difficulty Concentrating. absent: Hallucinations, Homicidal Ideation, Suicidal Ideation Mental Status Examination - Personal Presentation Personal Presentation: Looks older than stated age - Affect Affect: Constricted - Motor Activity Motor Activity: Calm - Reliability in Providing Information Reliability in Providing Information: Good - Speech Speech: Organized - Mood Mood: Depressed, Anxious - Formal Thought Process Formal Thought Process: No Impairment - Cognitive Functions Orientation: Person, Place, Situation, Time Sensorium: Alert Attention/Concentration: Attentive Estimate of Intelligence: Average Judgement: Intact, as evidence by: Insight regarding need for hospitalization Memory: Recent intact, as evidence by: Ability to recall events of the day, Remote intact, as evidenced by: Abilit to recall sig. life events - Risk Risk: Diminished functioning - Strength & Assets Inventory Strength & Assets Inventory: Family support, Cooperative DSM 5 DX - DSM 5 DSM 5 Diagnosis: Major depression, recurrent, moderate Anxiety d/o - unspecified - Recommended/Plan of Treatment Treatment Recommendations and Plan of Treatment: Lexapro for depression and anxiety Seroquel for insomnia and also dep/anx Support, CBt and psychoeducation Will follow up
[2017-02-25] MEDS ORDERED: Ciprofloxacin 400mg/200ml D5W 400 MG/200 ML BAG IVPB SCH (15:00)
[2017-02-25] MEDS: HYDROmorphone 1 mg/ml ISec IVP PRN ×2 (17:00→21:00)
[2017-02-25] MEDS: Ciprofloxacin 400mg/200ml D5W 400 MG/200 ML BAG IVPB SCH (17:41)
--- NOTE | 2017-02-25 17:54 | CP.PCM.PN ---
<Janeth Lees - Last Filed: 02/25/17 17:51> Subjective - Date & Time of Evaluation Date of Evaluation: 02/25/17 Time of Evaluation: 17:51 - Subjective Subjective: General sx progress note for Dr. Taylor-Janeth Lees, PGY-1 Pt S & E at bedside. Pt reports continued pain, mostly with pressure to gluteal surgical wounds, insomnia. Is tolerating diet. Denies N/V/F/C, SOB, CP, abdominal pain. No acute events overnight per nursing. Objective - Vital Signs/Intake and Output Vital Signs (last 24 hours): Temp Pulse Resp BP Pulse Ox 98.9 F 97 H 20 100/65 99 02/25/17 00:00 02/25/17 00:00 02/25/17 00:00 02/25/17 00:00 02/25/17 00:00 Intake and Output: 02/25/17 02/25/17 06:59 18:59 Intake Total 1080 800 Output Total 1100 Balance 1080 -300 - Medications Medications: Current Medications Diphenhydramine HCl (Benadryl) 25 mg IVP Q6H PRN PRN Reason: Anxiety Enoxaparin Sodium (Lovenox) 60 mg SC Q12 [facility] Last Admin: 02/25/17 10:20 Dose: Not Given Escitalopram Oxalate (Lexapro) 5 mg PO DAILY [facility] Last Admin: 02/25/17 14:48 Dose: 5 mg Ferrous Sulfate (Feosol) 325 mg PO BID [facility] Last Admin: 02/25/17 17:36 Dose: 325 mg Hydromorphone HCl (Dilaudid) 1 mg IVP Q4H PRN PRN Reason: Pain, severe (8-10) Last Admin: 02/25/17 17:00 Dose: 1 mg Imipenem/Cilastatin Sodium 500 (mg/ Sodium Chloride) 100 mls @ 100 mls/hr IVPB Q6H [facility] Last Admin: 02/25/17 13:59 Dose: 100 mls/hr Ciprofloxacin (Cipro 400mg/200ml Dsw) 400 mg in 200 mls @ 133 mls/hr IVPB Q12H [facility] Last Admin: 02/25/17 17:41 Dose: 133 mls/hr Lactobacillus Acidophilus (Bacid Acidophilus) 1 cap PO BID [facility] Mesalamine (Delzicol) 800 mg PO TID [facility] Last Admin: 02/25/17 17:37 Dose: 800 mg Ondansetron HCl (Zofran Inj) 4 mg IVP Q6 PRN PRN Reason: Nausea/Vomiting Last Admin: 02/24/17 17:56 Dose: 4 mg Pantoprazole Sodium (Protonix Ec Tab) 40 mg PO DAILY [facility] Last Admin: 02/25/17 10:17 Dose: 40 mg Quetiapine Fumarate (Seroquel) 50 mg PO HS [facility] - Labs Labs: 02/23/17 10:33 02/23/17 10:33 PT 13.5 SECONDS (9.7-12.2) H 02/19/17 06:35 INR 1.2 02/19/17 06:35 APTT 31 SECONDS (21-34) 02/19/17 06:35 - Constitutional Appears: Non-toxic, No Acute Distress - Head Exam Head Exam: ATRAUMATIC, NORMAL INSPECTION, NORMOCEPHALIC - Eye Exam Eye Exam: EOMI, Normal appearance - ENT Exam ENT Exam: Mucous Membranes Moist, Normal Exam - Neck Exam Neck Exam: Full ROM, Normal Inspection - Respiratory Exam Respiratory Exam: Clear to Ausculation Bilateral, NORMAL BREATHING PATTERN - Cardiovascular Exam Cardiovascular Exam: REGULAR RHYTHM, +S1, +S2 - GI/Abdominal Exam GI & Abdominal Exam: Soft, Normal Bowel Sounds. absent: Tenderness Additional comments: colostomy in place with moderate amount of dark brown formed stool - Back Exam Back Exam: NORMAL INSPECTION - Neurological Exam Neurological Exam: Alert, Awake, CN II-XII Intact, Oriented x3 - Psychiatric Exam Psychiatric exam: Normal Affect, Normal Mood - Skin Skin Exam: Dry, Normal Color, Warm. absent: Intact Additional comments: midline gluteal incisions x 3 with no drainage noted, packing removed; perineal wound with granulation tissue and large ulcerated lesion- no drainage noted, tender to palpation Assessment and Plan - Assessment and Plan (Free Text) Assessment: 21M w/ Crohn's disease s/p nitza-anal abscess drainage x3 and debridement, POD5 Plan: -cont current pain mgmt -cont daily dressing with gauze -no longer requiring packing -Continue showers 2x daily -Medihoney and gauze to perineal wound -Continued wound care as per nursing -Please re-consult as needed DW attending Yoana, PGY-1 <Temo Taylor - Last Filed: 03/01/17 16:32> Objective - Vital Signs/Intake and Output Vital Signs (last 24 hours): Temp Pulse Resp BP Pulse Ox 98.7 F 105 H 20 105/71 100 03/01/17 00:00 03/01/17 00:00 03/01/17 00:00 03/01/17 00:00 03/01/17 00:00 Intake and Output: 03/01/17 03/01/17 06:59 18:59 Intake Total 450 500 Output Total 950 700 Balance -500 -200 - Medications Medications: Current Medications Diphenhydramine HCl (Benadryl) 25 mg IVP Q4H PRN PRN Reason: Itching / Pruritus Last Admin: 03/01/17 13:31 Dose: 25 mg Enoxaparin Sodium (Lovenox) 60 mg SC Q12 [facility] Last Admin: 03/01/17 09:27 Dose: Not Given Escitalopram Oxalate (Lexapro) 5 mg PO DAILY [facility] Last Admin: 03/01/17 09:27 Dose: 5 mg Hydromorphone HCl (Dilaudid) 1 mg IVP Q4H PRN PRN Reason: Pain, severe (8-10) Last Admin: 03/01/17 13:31 Dose: 1 mg Ciprofloxacin (Cipro 400mg/200ml Dsw) 400 mg in 200 mls @ 133 mls/hr IVPB Q12H [facility] Last Admin: 03/01/17 05:22 Dose: 133 mls/hr Lactobacillus Acidophilus (Bacid Acidophilus) 1 cap PO BID [facility] Last Admin: 03/01/17 09:27 Dose: 1 cap Mesalamine (Delzicol) 800 mg PO TID [facility] Last Admin: 03/01/17 13:31 Dose: 800 mg Ondansetron HCl (Zofran Inj) 4 mg IVP Q6 PRN PRN Reason: Nausea/Vomiting Last Admin: 02/24/17 17:56 Dose: 4 mg Quetiapine Fumarate (Seroquel) 100 mg PO HS [facility] Last Admin: 02/28/17 21:39 Dose: 100 mg - Labs Labs: 02/26/17 06:49 02/26/17 06:49 PT 13.5 SECONDS (9.7-12.2) H 02/19/17 06:35 INR 1.2 02/19/17 06:35 APTT 31 SECONDS (21-34) 02/19/17 06:35 Attending/Attestation - Attestation I have personally seen and examined this patient.: Yes I have fully participated in the care of the patient.: Yes I have reviewed all pertinent clinical information, including history, physical exam and plan: Yes Notes (Text): 03/01/17 16:31 Pt was seen and examined at bedside on 02/25/17 Agree with above note and assessment DC Plan Local wound care Plan d/w pt and PMD in detail Risk and benefit explained in detail.
[2017-02-25] MEDS ORDERED: Tramadol 25 mg PO SCH (18:00)
[2017-02-25] MEDS: Lactobacillus Acidophilus 500 MU Cap PO SCH (18:40)
--- NOTE | 2017-02-25 19:41 | CP.PCM.PN ---
Subjective - Date & Time of Evaluation Date of Evaluation: 02/25/17 Objective - Vital Signs/Intake and Output Vital Signs (last 24 hours): Temp Pulse Resp BP Pulse Ox 98.9 F 97 H 20 100/65 99 02/25/17 00:00 02/25/17 00:00 02/25/17 00:00 02/25/17 00:00 02/25/17 00:00 Intake and Output: 02/25/17 02/26/17 18:59 06:59 Intake Total 800 Output Total 1100 Balance -300 - Medications Medications: Current Medications Diphenhydramine HCl (Benadryl) 25 mg IVP Q6H PRN PRN Reason: Anxiety Enoxaparin Sodium (Lovenox) 60 mg SC Q12 [facility] Last Admin: 02/25/17 10:20 Dose: Not Given Escitalopram Oxalate (Lexapro) 5 mg PO DAILY [facility] Last Admin: 02/25/17 14:48 Dose: 5 mg Ferrous Sulfate (Feosol) 325 mg PO BID [facility] Last Admin: 02/25/17 17:36 Dose: 325 mg Hydromorphone HCl (Dilaudid) 1 mg IVP Q4H PRN PRN Reason: Pain, severe (8-10) Last Admin: 02/25/17 17:00 Dose: 1 mg Imipenem/Cilastatin Sodium 500 (mg/ Sodium Chloride) 100 mls @ 100 mls/hr IVPB Q6H [facility] Last Admin: 02/25/17 13:59 Dose: 100 mls/hr Ciprofloxacin (Cipro 400mg/200ml Dsw) 400 mg in 200 mls @ 133 mls/hr IVPB Q12H [facility] Last Admin: 02/25/17 17:41 Dose: 133 mls/hr Lactobacillus Acidophilus (Bacid Acidophilus) 1 cap PO BID [facility] Mesalamine (Delzicol) 800 mg PO TID [facility] Last Admin: 02/25/17 17:37 Dose: 800 mg Ondansetron HCl (Zofran Inj) 4 mg IVP Q6 PRN PRN Reason: Nausea/Vomiting Last Admin: 02/24/17 17:56 Dose: 4 mg Pantoprazole Sodium (Protonix Ec Tab) 40 mg PO DAILY [facility] Last Admin: 02/25/17 10:17 Dose: 40 mg Quetiapine Fumarate (Seroquel) 50 mg PO HS [facility] - Labs Labs: 02/23/17 10:33 02/23/17 10:33 PT 13.5 SECONDS (9.7-12.2) H 02/19/17 06:35 INR 1.2 02/19/17 06:35 APTT 31 SECONDS (21-34) 02/19/17 06:35 Assessment and Plan (1) DVT (deep venous thrombosis) Status: Acute (2) Diarrhea Status: Acute (3) Intractable pain Status: Acute (4) Wound of right buttock Status: Acute (5) Abdominal pain Status: Acute (6) Abscess Status: Acute (7) Constipation Status: Acute (8) Crohn disease Status: Acute (9) Diarrhea Status: Acute (10) Encounter for wound care Status: Acute (11) Fever Status: Acute (12) Foreign body Status: Acute (13) Intractable abdominal pain Status: Acute (14) Prophylactic measure Status: Acute (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
--- NOTE | 2017-02-25 22:05 | CP.PCM.PN ---
Subjective - Date & Time of Evaluation Date of Evaluation: 02/25/17 Time of Evaluation: 03:00 - Subjective Subjective: Patient says he still has pain when he ambulates and still has dressings on the abscess,tygacil made him nauseous and he wants me to take it out. He was also on imipenem. Case discussed with Dr Taylor. he also does not know how the abscess not resolving He needs good nutrition,need to clean himself properly and he thinks this pt does not have fecal fistula as the bottom blind loop was tightly closed when clostomy was made He has less pain in neck. He refuses at times lovenox which is needed due to DVT neck Objective - Vital Signs/Intake and Output Vital Signs (last 24 hours): Temp Pulse Resp BP Pulse Ox 97.5 F L 86 20 99/65 L 98 02/25/17 15:00 02/25/17 15:00 02/25/17 15:00 02/25/17 15:00 02/25/17 15:00 Intake and Output: 02/25/17 02/26/17 18:59 06:59 Intake Total 800 Output Total 1100 Balance -300 - Medications Medications: Current Medications Diphenhydramine HCl (Benadryl) 25 mg IVP Q6H PRN PRN Reason: Anxiety Last Admin: 02/25/17 17:00 Dose: 25 mg Enoxaparin Sodium (Lovenox) 60 mg SC Q12 [facility] Last Admin: 02/25/17 21:55 Dose: Not Given Escitalopram Oxalate (Lexapro) 5 mg PO DAILY [facility] Last Admin: 02/25/17 14:48 Dose: 5 mg Ferrous Sulfate (Feosol) 325 mg PO BID [facility] Last Admin: 02/25/17 17:36 Dose: 325 mg Hydromorphone HCl (Dilaudid) 1 mg IVP Q4H PRN PRN Reason: Pain, severe (8-10) Last Admin: 02/25/17 21:00 Dose: 1 mg Ciprofloxacin (Cipro 400mg/200ml Dsw) 400 mg in 200 mls @ 133 mls/hr IVPB Q12H [facility] Last Admin: 02/25/17 17:41 Dose: 133 mls/hr Lactobacillus Acidophilus (Bacid Acidophilus) 1 cap PO BID [facility] Last Admin: 02/25/17 18:40 Dose: 1 cap Mesalamine (Delzicol) 800 mg PO TID [facility] Last Admin: 02/25/17 17:37 Dose: 800 mg Ondansetron HCl (Zofran Inj) 4 mg IVP Q6 PRN PRN Reason: Nausea/Vomiting Last Admin: 02/24/17 17:56 Dose: 4 mg Pantoprazole Sodium (Protonix Ec Tab) 40 mg PO DAILY [facility] Last Admin: 02/25/17 10:17 Dose: 40 mg Quetiapine Fumarate (Seroquel) 50 mg PO HS [facility] Last Admin: 02/25/17 21:44 Dose: 50 mg - Labs Labs: 02/23/17 10:33 02/23/17 10:33 PT 13.5 SECONDS (9.7-12.2) H 02/19/17 06:35 INR 1.2 02/19/17 06:35 APTT 31 SECONDS (21-34) 02/19/17 06:35 - Constitutional Appears: No Acute Distress - Head Exam Head Exam: ATRAUMATIC, NORMOCEPHALIC Additional comments: always in bed with lights of,says does not eat hospital food is eating what ever his friend brings ,his family is coming back on Thursday - Eye Exam Eye Exam: PERRL - ENT Exam ENT Exam: Mucous Membranes Moist - Neck Exam Neck Exam: Normal Inspection - Respiratory Exam Respiratory Exam: Clear to Ausculation Bilateral, NORMAL BREATHING PATTERN - Cardiovascular Exam Cardiovascular Exam: REGULAR RHYTHM, RRR - GI/Abdominal Exam GI & Abdominal Exam: Soft, Normal Bowel Sounds Additional comments: colostomy - Extremities Exam Extremities Exam: Normal Inspection Assessment and Plan (1) Abscess Status: Acute (2) Crohn disease Status: Acute (3) DVT (deep venous thrombosis) Status: Acute - Assessment and Plan (Free Text) Assessment: now there is citrobacter in micro lab will change to cipro iv and follow ,he needs sitz bath should be started here Plan: so that he can continue at home
[2017-02-26] MEDS: DiphenhydrAMINE 50 mg/ml Inj IVP PRN ×4 (00:59→17:45)
[2017-02-26] MEDS: HYDROmorphone 1 mg/ml ISec IVP PRN ×6 (01:00→21:54)
[2017-02-26] MEDS: Ciprofloxacin 400mg/200ml D5W 400 MG/200 ML BAG IVPB SCH ×2 (05:00→17:54)
[2017-02-26 07:14] LABS: BASO # 0.1 K/uL (0.0-0.2); BASO % 0.7 % (0.0-2.0); EOS # 0.8 K/uL (0.0-0.7); EOS % 7.4 % (0.0-4.0); LYMPH # 3.5 K/uL (1.0-4.3); LYMPH % 32.9 % (20.0-40.0); MEAN CELL VOLUME 69.5 fL (80.0-94.0); MEAN CORPUSCULAR HEMOGLOBIN 21.3 pg (27.0-31.0); MEAN CORPUSCULAR HGB CONC 30.7 g/dL (33.0-37.0); MEAN PLATELET VOLUME 8.2 fL (7.2-11.7); MONO # 0.5 K/uL (0.0-0.8); MONO % 4.9 % (0.0-10.0); NEUT # 5.8 K/uL (1.8-7.0); NEUT % 54.1 % (50.0-75.0); NRBC % 0.1 % (0.0-2.0); RBC 4.67 Mil/uL (4.40-5.90); RED CELL DISTRIBUTION WIDTH 21.2 % (11.5-14.5); WHITE BLOOD COUNT 10.8 K/uL (4.8-10.8)
[2017-02-26 07:30] LABS: BLOOD UREA NITROGEN 12 mg/dL (9-20); CALCIUM 8.8 mg/dl (8.6-10.4); GFR AFRICAN-AMERICAN > 60; GFR NON-AFRICAN AMERICAN > 60
[2017-02-26] MEDS: Lactobacillus Acidophilus 500 MU Cap PO SCH ×2 (09:50→17:53)
[2017-02-26] MEDS: Enoxaparin 60 mg Syringe SC SCH ×2 (09:52→22:58)
[2017-02-26] MEDS: Pantoprazole 40 mg EC Tab PO SCH (09:52)
--- NOTE | 2017-02-26 15:30 | CP.PCM.PN ---
Subjective - Date & Time of Evaluation Date of Evaluation: 02/26/17 Time of Evaluation: 07:20 - Subjective Subjective: clinically same Objective - Vital Signs/Intake and Output Vital Signs (last 24 hours): Temp Pulse Resp BP Pulse Ox 98.1 F 86 20 109/77 100 02/26/17 00:00 02/26/17 00:00 02/26/17 00:00 02/26/17 00:00 02/26/17 00:00 Intake and Output: 02/26/17 02/26/17 06:59 18:59 Intake Total 730 Output Total 950 300 Balance -220 -300 - Medications Medications: Current Medications Diphenhydramine HCl (Benadryl) 25 mg IVP Q4H PRN PRN Reason: Itching / Pruritus Enoxaparin Sodium (Lovenox) 60 mg SC Q12 [facility] Last Admin: 02/26/17 09:52 Dose: Not Given Escitalopram Oxalate (Lexapro) 5 mg PO DAILY [facility] Last Admin: 02/26/17 09:50 Dose: 5 mg Ferrous Sulfate (Feosol) 325 mg PO BID [facility] Last Admin: 02/26/17 09:52 Dose: 325 mg Hydromorphone HCl (Dilaudid) 1 mg IVP Q4H PRN PRN Reason: Pain, severe (8-10) Last Admin: 02/26/17 13:45 Dose: 1 mg Ciprofloxacin (Cipro 400mg/200ml Dsw) 400 mg in 200 mls @ 133 mls/hr IVPB Q12H [facility] Last Admin: 02/26/17 05:00 Dose: 133 mls/hr Lactobacillus Acidophilus (Bacid Acidophilus) 1 cap PO BID [facility] Last Admin: 02/26/17 09:50 Dose: 1 cap Mesalamine (Delzicol) 800 mg PO TID [facility] Last Admin: 02/26/17 13:50 Dose: 800 mg Ondansetron HCl (Zofran Inj) 4 mg IVP Q6 PRN PRN Reason: Nausea/Vomiting Last Admin: 02/24/17 17:56 Dose: 4 mg Pantoprazole Sodium (Protonix Ec Tab) 40 mg PO DAILY [facility] Last Admin: 02/26/17 09:52 Dose: 40 mg Quetiapine Fumarate (Seroquel) 50 mg PO HS [facility] Last Admin: 02/25/17 21:44 Dose: 50 mg - Labs Labs: 02/26/17 06:49 02/26/17 06:49 PT 13.5 SECONDS (9.7-12.2) H 02/19/17 06:35 INR 1.2 02/19/17 06:35 APTT 31 SECONDS (21-34) 02/19/17 06:35 - Constitutional Appears: Well - Head Exam Head Exam: ATRAUMATIC, NORMAL INSPECTION, NORMOCEPHALIC - Eye Exam Eye Exam: EOMI, Normal appearance, PERRL Pupil Exam: NORMAL ACCOMODATION, PERRL - ENT Exam ENT Exam: Mucous Membranes Moist, Normal Exam - Neck Exam Neck Exam: Full ROM - Respiratory Exam Respiratory Exam: Decreased Breath Sounds - Cardiovascular Exam Cardiovascular Exam: REGULAR RHYTHM, +S1, +S2 - GI/Abdominal Exam GI & Abdominal Exam: Soft, Diminished Bowel Sounds - Rectal Exam Rectal Exam: Deferred Assessment and Plan (1) DVT (deep venous thrombosis) Status: Acute (2) Diarrhea Status: Acute (3) Intractable pain Status: Acute (4) Wound of right buttock Status: Acute (5) Abdominal pain Status: Acute (6) Abscess Status: Acute (7) Constipation Status: Acute (8) Crohn disease Status: Acute (9) Diarrhea Status: Acute (10) Encounter for wound care Status: Acute (11) Fever Status: Acute (12) Foreign body Status: Acute (13) Intractable abdominal pain Status: Acute (14) Prophylactic measure Status: Acute (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
--- NOTE | 2017-02-26 17:55 | CP.PCM.PN ---
Subjective - Date & Time of Evaluation Date of Evaluation: 02/26/17 Time of Evaluation: 04:00 - Subjective Subjective: dictated Objective - Vital Signs/Intake and Output Vital Signs (last 24 hours): Temp Pulse Resp BP Pulse Ox 97 F L 91 H 20 106/68 97 02/26/17 15:00 02/26/17 15:00 02/26/17 15:00 02/26/17 15:00 02/26/17 15:00 Intake and Output: 02/26/17 02/26/17 06:59 18:59 Intake Total 730 Output Total 950 300 Balance -220 -300 - Medications Medications: Current Medications Diphenhydramine HCl (Benadryl) 25 mg IVP Q4H PRN PRN Reason: Itching / Pruritus Enoxaparin Sodium (Lovenox) 60 mg SC Q12 [facility] Last Admin: 02/26/17 09:52 Dose: Not Given Escitalopram Oxalate (Lexapro) 5 mg PO DAILY [facility] Last Admin: 02/26/17 09:50 Dose: 5 mg Ferrous Sulfate (Feosol) 325 mg PO BID [facility] Last Admin: 02/26/17 09:52 Dose: 325 mg Hydromorphone HCl (Dilaudid) 1 mg IVP Q4H PRN PRN Reason: Pain, severe (8-10) Last Admin: 02/26/17 13:45 Dose: 1 mg Ciprofloxacin (Cipro 400mg/200ml Dsw) 400 mg in 200 mls @ 133 mls/hr IVPB Q12H [facility] Last Admin: 02/26/17 05:00 Dose: 133 mls/hr Lactobacillus Acidophilus (Bacid Acidophilus) 1 cap PO BID [facility] Last Admin: 02/26/17 09:50 Dose: 1 cap Mesalamine (Delzicol) 800 mg PO TID [facility] Last Admin: 02/26/17 13:50 Dose: 800 mg Ondansetron HCl (Zofran Inj) 4 mg IVP Q6 PRN PRN Reason: Nausea/Vomiting Last Admin: 02/24/17 17:56 Dose: 4 mg Pantoprazole Sodium (Protonix Ec Tab) 40 mg PO DAILY [facility] Last Admin: 02/26/17 09:52 Dose: 40 mg Quetiapine Fumarate (Seroquel) 50 mg PO HS [facility] Last Admin: 02/25/17 21:44 Dose: 50 mg - Labs Labs: 02/26/17 06:49 02/26/17 06:49 PT 13.5 SECONDS (9.7-12.2) H 02/19/17 06:35 INR 1.2 02/19/17 06:35 APTT 31 SECONDS (21-34) 02/19/17 06:35 Assessment and Plan (1) Abscess Status: Acute (2) Crohn disease Status: Acute (3) DVT (deep venous thrombosis) Status: Acute
[2017-02-27] MEDS: DiphenhydrAMINE 50 mg/ml Inj IVP PRN ×6 (01:46→21:48)
[2017-02-27] MEDS: HYDROmorphone 1 mg/ml ISec IVP PRN ×6 (01:46→21:49)
[2017-02-27] MEDS: Ciprofloxacin 400mg/200ml D5W 400 MG/200 ML BAG IVPB SCH ×2 (05:45→17:18)
[2017-02-27] MEDS: Enoxaparin 60 mg Syringe SC SCH ×2 (09:54→22:00)
[2017-02-27] MEDS: Pantoprazole 40 mg EC Tab PO SCH (09:54)
[2017-02-27] MEDS: Lactobacillus Acidophilus 500 MU Cap PO SCH ×2 (09:55→17:18)
--- NOTE | 2017-02-27 11:12 | PCM.PYCHPN ---
Psychiatric Progress Note - Psychiatric Progress Note Patient seen today, length of contact: 16 min Patient Chief Complaint: "I can't sleep at night" Problems Identified/Issues Discussed: The pt is seen, chart reviewed, case discussed with staff. Support given, CBT used briefly No new symptoms reported, improving slowly and needs more time Seroquel increased for insomnia No SEs from medications, risks discussed. After care discussed psych will sign off Pls RX his psych meds if discharged Medication Change: Yes (increase seroquel) Medical Record Reviewed: Yes Mental Status Examination - Cognitive Function Orientation: Person, Place, Situation, Time Memory: Intact Attention: WNL Concentration: Poor Association: WNL Fund of Knowledge: WNL - Mood Mood: Depressed, Anxious - Affect Affect: Constricted - Speech Speech: Appropriate - Formal Thought Process Formal Thought Process: No Impairment - Suicidal Ideation Suicidal Ideation: No - Homicidal Ideation Homicidal Ideation: No Goal/Treatment Plan - Goal/Treatment Plan Need for Continued Stay: Other (medical) Progress Toward Problem(s) and Goals/Treatment Plan: Lexapro for depression and anxiety Seroquel for insomnia and also dep/anx Support, CBt and psychoeducation Will sign off
--- NOTE | 2017-02-27 12:56 | CP.PCM.PN ---
Subjective - Date & Time of Evaluation Date of Evaluation: 02/27/17 Time of Evaluation: 07:20 - Subjective Subjective: clinically same Objective - Vital Signs/Intake and Output Vital Signs (last 24 hours): Temp Pulse Resp BP Pulse Ox 98 F 82 20 93/63 L 95 02/27/17 08:00 02/27/17 08:00 02/27/17 08:00 02/27/17 08:00 02/27/17 08:00 Intake and Output: 02/27/17 02/27/17 06:59 18:59 Intake Total 400 Balance 400 - Medications Medications: Current Medications Diphenhydramine HCl (Benadryl) 25 mg IVP Q4H PRN PRN Reason: Itching / Pruritus Last Admin: 02/27/17 09:54 Dose: 25 mg Enoxaparin Sodium (Lovenox) 60 mg SC Q12 [facility] Last Admin: 02/27/17 09:54 Dose: Not Given Escitalopram Oxalate (Lexapro) 5 mg PO DAILY [facility] Last Admin: 02/27/17 09:55 Dose: 5 mg Ferrous Sulfate (Feosol) 325 mg PO BID [facility] Last Admin: 02/27/17 09:54 Dose: 325 mg Hydromorphone HCl (Dilaudid) 1 mg IVP Q4H PRN PRN Reason: Pain, severe (8-10) Last Admin: 02/27/17 09:53 Dose: 1 mg Ciprofloxacin (Cipro 400mg/200ml Dsw) 400 mg in 200 mls @ 133 mls/hr IVPB Q12H [facility] Last Admin: 02/27/17 05:45 Dose: 133 mls/hr Lactobacillus Acidophilus (Bacid Acidophilus) 1 cap PO BID [facility] Last Admin: 02/27/17 09:55 Dose: 1 cap Mesalamine (Delzicol) 800 mg PO TID [facility] Last Admin: 02/27/17 09:55 Dose: 800 mg Ondansetron HCl (Zofran Inj) 4 mg IVP Q6 PRN PRN Reason: Nausea/Vomiting Last Admin: 02/24/17 17:56 Dose: 4 mg Pantoprazole Sodium (Protonix Ec Tab) 40 mg PO DAILY [facility] Last Admin: 02/27/17 09:54 Dose: 40 mg Quetiapine Fumarate (Seroquel) 100 mg PO HS [facility] - Labs Labs: 02/26/17 06:49 02/26/17 06:49 PT 13.5 SECONDS (9.7-12.2) H 02/19/17 06:35 INR 1.2 02/19/17 06:35 APTT 31 SECONDS (21-34) 02/19/17 06:35 - Constitutional Appears: Well - Head Exam Head Exam: ATRAUMATIC, NORMAL INSPECTION, NORMOCEPHALIC - Eye Exam Eye Exam: EOMI, Normal appearance, PERRL Pupil Exam: NORMAL ACCOMODATION, PERRL - ENT Exam ENT Exam: Mucous Membranes Moist, Normal Exam - Neck Exam Neck Exam: Full ROM, Normal Inspection. absent: Lymphadenopathy - Respiratory Exam Respiratory Exam: Decreased Breath Sounds - Cardiovascular Exam Cardiovascular Exam: REGULAR RHYTHM, +S1, +S2 - GI/Abdominal Exam GI & Abdominal Exam: Soft, Diminished Bowel Sounds - Rectal Exam Rectal Exam: Deferred Assessment and Plan (1) DVT (deep venous thrombosis) Status: Acute (2) Diarrhea Status: Acute (3) Intractable pain Status: Acute (4) Wound of right buttock Status: Acute (5) Abdominal pain Status: Acute (6) Abscess Status: Acute (7) Constipation Status: Acute (8) Crohn disease Status: Acute (9) Diarrhea Status: Acute (10) Encounter for wound care Status: Acute (11) Fever Status: Acute (12) Foreign body Status: Acute (13) Intractable abdominal pain Status: Acute (14) Prophylactic measure Status: Acute (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
[2017-02-28] MEDS: DiphenhydrAMINE 50 mg/ml Inj IVP PRN ×6 (01:40→21:39)
[2017-02-28] MEDS: HYDROmorphone 1 mg/ml ISec IVP PRN ×6 (01:41→21:40)
[2017-02-28] MEDS: Ciprofloxacin 400mg/200ml D5W 400 MG/200 ML BAG IVPB SCH ×2 (05:37→17:39)
[2017-02-28] MEDS: Pantoprazole 40 mg EC Tab PO SCH (09:45)
[2017-02-28] MEDS: Enoxaparin 60 mg Syringe SC SCH ×2 (09:46→21:52)
[2017-02-28] MEDS: Lactobacillus Acidophilus 500 MU Cap PO SCH ×2 (09:47→17:37)
--- NOTE | 2017-02-28 14:19 | CP.PCM.PN ---
Subjective - Date & Time of Evaluation Date of Evaluation: 02/28/17 Time of Evaluation: 07:20 - Subjective Subjective: clinically same Objective - Vital Signs/Intake and Output Vital Signs (last 24 hours): Temp Pulse Resp BP Pulse Ox 97.7 F 78 20 92/63 L 96 02/28/17 07:35 02/28/17 07:35 02/28/17 07:35 02/28/17 07:35 02/28/17 07:35 Intake and Output: 02/28/17 02/28/17 06:59 18:59 Intake Total 430 Balance 430 - Medications Medications: Current Medications Diphenhydramine HCl (Benadryl) 25 mg IVP Q4H PRN PRN Reason: Itching / Pruritus Last Admin: 02/28/17 13:33 Dose: 25 mg Enoxaparin Sodium (Lovenox) 60 mg SC Q12 [facility] Last Admin: 02/28/17 09:46 Dose: Not Given Escitalopram Oxalate (Lexapro) 5 mg PO DAILY [facility] Last Admin: 02/28/17 09:48 Dose: 5 mg Hydromorphone HCl (Dilaudid) 1 mg IVP Q4H PRN PRN Reason: Pain, severe (8-10) Last Admin: 02/28/17 13:33 Dose: 1 mg Ciprofloxacin (Cipro 400mg/200ml Dsw) 400 mg in 200 mls @ 133 mls/hr IVPB Q12H [facility] Last Admin: 02/28/17 05:37 Dose: 133 mls/hr Lactobacillus Acidophilus (Bacid Acidophilus) 1 cap PO BID [facility] Last Admin: 02/28/17 09:47 Dose: 1 cap Mesalamine (Delzicol) 800 mg PO TID [facility] Last Admin: 02/28/17 13:33 Dose: 800 mg Ondansetron HCl (Zofran Inj) 4 mg IVP Q6 PRN PRN Reason: Nausea/Vomiting Last Admin: 02/24/17 17:56 Dose: 4 mg Quetiapine Fumarate (Seroquel) 100 mg PO HS [facility] Last Admin: 02/27/17 21:43 Dose: 100 mg - Labs Labs: 02/26/17 06:49 02/26/17 06:49 PT 13.5 SECONDS (9.7-12.2) H 02/19/17 06:35 INR 1.2 06/29/17 06:35 APTT 31 SECONDS (21-34) 02/19/17 06:35 - Constitutional Appears: Well - Head Exam Head Exam: ATRAUMATIC, NORMAL INSPECTION, NORMOCEPHALIC - Eye Exam Eye Exam: EOMI, Normal appearance, PERRL Pupil Exam: NORMAL ACCOMODATION, PERRL - ENT Exam ENT Exam: Mucous Membranes Moist, Normal Exam - Neck Exam Neck Exam: Full ROM, Normal Inspection. absent: Lymphadenopathy - Respiratory Exam Respiratory Exam: Decreased Breath Sounds - Cardiovascular Exam Cardiovascular Exam: REGULAR RHYTHM, +S1, +S2 - GI/Abdominal Exam GI & Abdominal Exam: Soft, Diminished Bowel Sounds - Rectal Exam Rectal Exam: Deferred Assessment and Plan (1) DVT (deep venous thrombosis) Status: Acute (2) Diarrhea Status: Acute (3) Intractable pain Status: Acute (4) Wound of right buttock Status: Acute (5) Abdominal pain Status: Acute (6) Abscess Status: Acute (7) Constipation Status: Acute (8) Crohn disease Status: Acute (9) Diarrhea Status: Acute (10) Encounter for wound care Status: Acute (11) Fever Status: Acute (12) Foreign body Status: Acute (13) Intractable abdominal pain Status: Acute (14) Prophylactic measure Status: Acute (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
[2017-03-01] MEDS: HYDROmorphone 1 mg/ml ISec IVP PRN ×6 (01:31→21:34)
[2017-03-01] MEDS: DiphenhydrAMINE 50 mg/ml Inj IVP PRN ×6 (01:31→21:34)
[2017-03-01] MEDS: Ciprofloxacin 400mg/200ml D5W 400 MG/200 ML BAG IVPB SCH ×2 (05:22→17:30)
[2017-03-01] MEDS: Enoxaparin 60 mg Syringe SC SCH ×2 (09:27→22:00)
[2017-03-01] MEDS: Lactobacillus Acidophilus 500 MU Cap PO SCH ×2 (09:27→17:31)
--- NOTE | 2017-03-01 20:51 | CP.PCM.PN ---
Subjective - Date & Time of Evaluation Date of Evaluation: 03/01/17 Time of Evaluation: 07:20 - Subjective Subjective: clinically same Objective - Vital Signs/Intake and Output Vital Signs (last 24 hours): Temp Pulse Resp BP Pulse Ox 97.9 F 74 20 109/75 98 03/01/17 16:00 03/01/17 16:00 03/01/17 16:00 03/01/17 16:00 03/01/17 16:00 Intake and Output: 03/01/17 03/02/17 18:59 06:59 Intake Total 500 Output Total 700 Balance -200 - Medications Medications: Current Medications Diphenhydramine HCl (Benadryl) 25 mg IVP Q4H PRN PRN Reason: Itching / Pruritus Last Admin: 03/01/17 17:31 Dose: 25 mg Enoxaparin Sodium (Lovenox) [address] [facility] Last Admin: 03/01/17 09:27 Dose: Not Given Escitalopram Oxalate (Lexapro) [address] [facility] Last Admin: 03/01/17 09:27 Dose: 5 mg Hydromorphone HCl (Dilaudid) 1 mg IVP Q4H PRN PRN Reason: Pain, severe (8-10) Last Admin: 03/01/17 17:32 Dose: 1 mg Ciprofloxacin (Cipro 400mg/200ml Dsw) 400 mg in 200 mls @ 133 mls/hr IVPB Q12H [facility] Last Admin: 03/01/17 17:30 Dose: 133 mls/hr Lactobacillus Acidophilus (Bacid Acidophilus) [address] [facility] Last Admin: 03/01/17 17:31 Dose: 1 cap Mesalamine (Delzicol) [address] [facility] Last Admin: 03/01/17 17:31 Dose: 800 mg Ondansetron HCl (Zofran Inj) 4 mg IVP Q6 PRN PRN Reason: Nausea/Vomiting Last Admin: 02/24/17 17:56 Dose: 4 mg Quetiapine Fumarate (Seroquel) [address] [facility] Last Admin: 02/28/17 21:39 Dose: 100 mg - Labs Labs: 02/26/17 06:49 02/26/17 06:49 PT 13.5 SECONDS (9.7-12.2) H 02/19/17 06:35 INR 1.2 02/19/17 06:35 APTT 31 SECONDS (21-34) 02/19/17 06:35 - Constitutional Appears: Well - Head Exam Head Exam: ATRAUMATIC, NORMAL INSPECTION, NORMOCEPHALIC - Eye Exam Eye Exam: EOMI, Normal appearance, PERRL Pupil Exam: NORMAL ACCOMODATION, PERRL - ENT Exam ENT Exam: Mucous Membranes Moist, Normal Exam - Neck Exam Neck Exam: Full ROM, Normal Inspection. absent: Lymphadenopathy - Respiratory Exam Respiratory Exam: Decreased Breath Sounds - Cardiovascular Exam Cardiovascular Exam: REGULAR RHYTHM, +S1, +S2 - GI/Abdominal Exam GI & Abdominal Exam: Soft, Diminished Bowel Sounds - Rectal Exam Rectal Exam: Deferred Assessment and Plan (1) DVT (deep venous thrombosis) Status: Acute (2) Diarrhea Status: Acute (3) Intractable pain Status: Acute (4) Wound of right buttock Status: Acute (5) Abdominal pain Status: Acute (6) Abscess Status: Acute (7) Constipation Status: Acute (8) Crohn disease Status: Acute (9) Diarrhea Status: Acute (10) Encounter for wound care Status: Acute (11) Fever Status: Acute (12) Foreign body Status: Acute (13) Intractable abdominal pain Status: Acute (14) Prophylactic measure Status: Acute (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
[2017-03-02] MEDS: DiphenhydrAMINE 50 mg/ml Inj IVP PRN ×6 (01:30→21:40)
[2017-03-02] MEDS: HYDROmorphone 1 mg/ml ISec IVP PRN ×6 (01:30→21:39)
[2017-03-02] MEDS: Ciprofloxacin 400mg/200ml D5W 400 MG/200 ML BAG IVPB SCH ×2 (05:40→18:40)
[2017-03-02] MEDS: Lactobacillus Acidophilus 500 MU Cap PO SCH ×2 (09:33→18:39)
[2017-03-02] MEDS: Enoxaparin 60 mg Syringe SC SCH ×2 (09:34→22:53)
--- NOTE | 2017-03-02 14:01 | CP.PCM.PN ---
Subjective - Date & Time of Evaluation Date of Evaluation: 03/02/17 Time of Evaluation: 07:20 - Subjective Subjective: * Continue IV Antibiotics * Pt continue refusing Lovenox - Pt explained the benefits of the drug, and the risk of not taking it * wound care * ID consult Objective - Vital Signs/Intake and Output Vital Signs (last 24 hours): Temp Pulse Resp BP Pulse Ox 97.5 F L 80 20 98/65 L 98 03/02/17 07:39 03/02/17 07:39 03/02/17 07:39 03/02/17 07:39 03/02/17 07:39 Intake and Output: 03/02/17 03/02/17 06:59 18:59 Intake Total 800 450 Output Total 800 250 Balance 0 200 - Medications Medications: Current Medications Diphenhydramine HCl (Benadryl) 25 mg IVP Q4H PRN PRN Reason: Itching / Pruritus Last Admin: 03/02/17 13:38 Dose: 25 mg Enoxaparin Sodium (Lovenox) 60 mg SC Q12 [facility] Last Admin: 03/02/17 09:34 Dose: Not Given Escitalopram Oxalate (Lexapro) 5 mg PO DAILY [facility] Last Admin: 03/02/17 09:33 Dose: 5 mg Hydromorphone HCl (Dilaudid) 1 mg IVP Q4H PRN PRN Reason: Pain, severe (8-10) Last Admin: 03/02/17 13:38 Dose: 1 mg Ciprofloxacin (Cipro 400mg/200ml Dsw) 400 mg in 200 mls @ 133 mls/hr IVPB Q12H [facility] Last Admin: 03/02/17 05:40 Dose: 133 mls/hr Lactobacillus Acidophilus (Bacid Acidophilus) 1 cap PO BID [facility] Last Admin: 03/02/17 09:33 Dose: 1 cap Mesalamine (Delzicol) 800 mg PO TID [facility] Last Admin: 03/02/17 13:40 Dose: 800 mg Ondansetron HCl (Zofran Inj) 4 mg IVP Q6 PRN PRN Reason: Nausea/Vomiting Last Admin: 02/24/17 17:56 Dose: 4 mg Quetiapine Fumarate (Seroquel) 100 mg PO HS [facility] Last Admin: 03/01/17 21:31 Dose: 100 mg - Labs Labs: 02/26/17 06:49 02/26/17 06:49 PT 13.5 SECONDS (9.7-12.2) H 02/19/17 06:35 INR 1.2 02/19/17 06:35 APTT 31 SECONDS (21-34) 02/19/17 06:35 - Constitutional Appears: Well - Head Exam Head Exam: ATRAUMATIC, NORMAL INSPECTION, NORMOCEPHALIC - Eye Exam Eye Exam: EOMI, Normal appearance, PERRL Pupil Exam: NORMAL ACCOMODATION, PERRL - ENT Exam ENT Exam: Mucous Membranes Moist, Normal Exam - Neck Exam Neck Exam: Full ROM, Normal Inspection. absent: Lymphadenopathy - Respiratory Exam Respiratory Exam: Decreased Breath Sounds - Cardiovascular Exam Cardiovascular Exam: REGULAR RHYTHM, +S1, +S2 - GI/Abdominal Exam GI & Abdominal Exam: Soft, Diminished Bowel Sounds - Rectal Exam Rectal Exam: Deferred Assessment and Plan (1) DVT (deep venous thrombosis) Status: Acute (2) Diarrhea Status: Acute (3) Intractable pain Status: Acute (4) Wound of right buttock Status: Acute (5) Abdominal pain Status: Acute (6) Abscess Status: Acute (7) Constipation Status: Acute (8) Crohn disease Status: Acute (9) Diarrhea Status: Acute (10) Encounter for wound care Status: Acute (11) Fever Status: Acute (12) Foreign body Status: Acute (13) Intractable abdominal pain Status: Acute (14) Prophylactic measure Status: Acute (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
--- NOTE | 2017-03-02 21:16 | CP.PCM.PN ---
Subjective - Date & Time of Evaluation Date of Evaluation: 03/02/17 Time of Evaluation: 03:20 - Subjective Subjective: Patient mom was in his room today discussed with her that pt need to have sitz bath and also showers twice a day,stay away from pain meds and also learn how to do his dressings from the nurse and to give his lovenox injection for next few months. he needs to follow with Gi Objective - Vital Signs/Intake and Output Vital Signs (last 24 hours): Temp Pulse Resp BP Pulse Ox 98.5 F 101 H 20 118/72 98 03/02/17 15:00 03/02/17 15:00 03/02/17 15:00 03/02/17 15:00 03/02/17 15:00 Intake and Output: 03/02/17 03/03/17 18:59 06:59 Intake Total 450 Output Total 250 Balance 200 - Medications Medications: Current Medications Diphenhydramine HCl (Benadryl) 25 mg IVP Q4H PRN PRN Reason: Itching / Pruritus Last Admin: 03/02/17 17:41 Dose: 25 mg Enoxaparin Sodium (Lovenox) 60 mg SC Q12 [facility] Last Admin: 03/02/17 09:34 Dose: Not Given Escitalopram Oxalate (Lexapro) 5 mg PO DAILY [facility] Last Admin: 03/02/17 09:33 Dose: 5 mg Hydromorphone HCl (Dilaudid) 1 mg IVP Q4H PRN PRN Reason: Pain, severe (8-10) Last Admin: 03/02/17 17:40 Dose: 1 mg Ciprofloxacin (Cipro 400mg/200ml Dsw) 400 mg in 200 mls @ 133 mls/hr IVPB Q12H [facility] Last Admin: 03/02/17 18:40 Dose: 133 mls/hr Lactobacillus Acidophilus (Bacid Acidophilus) 1 cap PO BID [facility] Last Admin: 03/02/17 18:39 Dose: 1 cap Mesalamine (Delzicol) 800 mg PO TID [facility] Last Admin: 03/02/17 18:39 Dose: 800 mg Ondansetron HCl (Zofran Inj) 4 mg IVP Q6 PRN PRN Reason: Nausea/Vomiting Last Admin: 02/24/17 17:56 Dose: 4 mg Quetiapine Fumarate (Seroquel) 100 mg PO HS [facility] Last Admin: 03/01/17 21:31 Dose: 100 mg - Labs Labs: 02/26/17 06:49 02/26/17 06:49 PT 13.5 SECONDS (9.7-12.2) H 02/19/17 06:35 INR 1.2 02/19/17 06:35 APTT 31 SECONDS (21-34) 02/19/17 06:35 - Head Exam Head Exam: ATRAUMATIC, NORMOCEPHALIC - Eye Exam Eye Exam: Normal appearance - ENT Exam ENT Exam: Mucous Membranes Moist - Neck Exam Neck Exam: Normal Inspection - Respiratory Exam Respiratory Exam: NORMAL BREATHING PATTERN - GI/Abdominal Exam GI & Abdominal Exam: Soft, Normal Bowel Sounds Additional comments: colostomy present - Rectal Exam Additional comments: has excoriation of skin at the perineum and the perineum with dressing Assessment and Plan (1) Abscess Assessment & Plan: patient has no fever received antibiotics and I7D and should go home with sitz bath and cipro should be stopped and line dced and to continue local wound care and lovenox for his dvt Status: Acute (2) Crohn disease Status: Acute (3) DVT (deep venous thrombosis) Status: Acute
[2017-03-03] MEDS: HYDROmorphone 1 mg/ml ISec IVP PRN ×6 (01:40→21:57)
[2017-03-03] MEDS: DiphenhydrAMINE 50 mg/ml Inj IVP PRN ×6 (01:40→21:57)
[2017-03-03] MEDS: Ciprofloxacin 400mg/200ml D5W 400 MG/200 ML BAG IVPB SCH ×2 (05:18→17:54)
[2017-03-03] MEDS: Enoxaparin 60 mg Syringe SC SCH ×2 (09:52→21:53)
[2017-03-03] MEDS: Lactobacillus Acidophilus 500 MU Cap PO SCH ×2 (09:52→17:55)
--- NOTE | 2017-03-03 11:13 | CP.PCM.PN ---
Subjective - Date & Time of Evaluation Date of Evaluation: 03/03/17 Time of Evaluation: 07:20 - Subjective Subjective: clinically same Objective - Vital Signs/Intake and Output Vital Signs (last 24 hours): Temp Pulse Resp BP Pulse Ox 98.4 F 107 H 20 109/73 95 03/03/17 00:00 03/03/17 00:00 03/03/17 00:00 03/03/17 00:00 03/03/17 00:00 Intake and Output: 03/03/17 03/03/17 06:59 18:59 Intake Total 900 Output Total 800 Balance 100 - Medications Medications: Current Medications Diphenhydramine HCl (Benadryl) 25 mg IVP Q4H PRN PRN Reason: Itching / Pruritus Last Admin: 03/03/17 09:52 Dose: 25 mg Enoxaparin Sodium (Lovenox) 60 mg SC Q12 [facility] Last Admin: 03/03/17 09:52 Dose: Not Given Escitalopram Oxalate (Lexapro) 5 mg PO DAILY [facility] Last Admin: 03/03/17 09:52 Dose: 5 mg Hydromorphone HCl (Dilaudid) 1 mg IVP Q4H PRN PRN Reason: Pain, severe (8-10) Last Admin: 03/03/17 09:51 Dose: 1 mg Ciprofloxacin (Cipro 400mg/200ml Dsw) 400 mg in 200 mls @ 133 mls/hr IVPB Q12H [facility] Last Admin: 03/03/17 05:18 Dose: 133 mls/hr Lactobacillus Acidophilus (Bacid Acidophilus) 1 cap PO BID [facility] Last Admin: 03/03/17 09:52 Dose: 1 cap Mesalamine (Delzicol) 800 mg PO TID [facility] Last Admin: 03/03/17 09:53 Dose: 800 mg Ondansetron HCl (Zofran Inj) 4 mg IVP Q6 PRN PRN Reason: Nausea/Vomiting Last Admin: 02/24/17 17:56 Dose: 4 mg Quetiapine Fumarate (Seroquel) 100 mg PO HS [facility] Last Admin: 03/02/17 22:52 Dose: 100 mg - Labs Labs: 02/26/17 06:49 02/26/17 06:49 PT 13.5 SECONDS (9.7-12.2) H 02/19/17 06:35 INR 1.2 02/19/17 06:35 APTT 31 SECONDS (21-34) 02/19/17 06:35 - Constitutional Appears: Well - Head Exam Head Exam: ATRAUMATIC, NORMAL INSPECTION, NORMOCEPHALIC - Eye Exam Eye Exam: EOMI, Normal appearance, PERRL Pupil Exam: NORMAL ACCOMODATION, PERRL - ENT Exam ENT Exam: Mucous Membranes Moist, Normal Exam - Neck Exam Neck Exam: Full ROM, Normal Inspection. absent: Lymphadenopathy - Respiratory Exam Respiratory Exam: Decreased Breath Sounds - Cardiovascular Exam Cardiovascular Exam: REGULAR RHYTHM, +S1, +S2 - GI/Abdominal Exam GI & Abdominal Exam: Soft, Diminished Bowel Sounds - Rectal Exam Rectal Exam: Deferred Assessment and Plan (1) DVT (deep venous thrombosis) Status: Acute (2) Diarrhea Status: Acute (3) Intractable pain Status: Acute (4) Wound of right buttock Status: Acute (5) Abdominal pain Status: Acute (6) Abscess Status: Acute (7) Constipation Status: Acute (8) Crohn disease Status: Acute (9) Diarrhea Status: Acute (10) Encounter for wound care Status: Acute (11) Fever Status: Acute (12) Foreign body Status: Acute (13) Intractable abdominal pain Status: Acute (14) Prophylactic measure Status: Acute (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 consuelo Grace patient encouraged to take anticoagulations Patient continues to refuse Lovenox and and adverse consequences
--- NOTE | 2017-03-03 22:46 | CP.PCM.PN ---
Subjective - Date & Time of Evaluation Date of Evaluation: 03/03/17 Time of Evaluation: 04:00 - Subjective Subjective: Patient is asking for nurse for wound care and his wounds need to followed as he has crohns disease,no abdominal pain,no sob Objective - Vital Signs/Intake and Output Vital Signs (last 24 hours): Temp Pulse Resp BP Pulse Ox 98.1 F 99 H 20 113/70 98 03/03/17 15:00 03/03/17 16:49 03/03/17 15:00 03/03/17 16:49 03/03/17 16:49 Intake and Output: 03/03/17 03/04/17 18:59 06:59 Intake Total 350 Output Total 500 Balance -150 - Medications Medications: Current Medications Diphenhydramine HCl (Benadryl) 25 mg IVP Q4H PRN PRN Reason: Itching / Pruritus Last Admin: 03/03/17 21:57 Dose: 25 mg Enoxaparin Sodium (Lovenox) 60 mg SC Q12 [facility] Last Admin: 03/03/17 21:53 Dose: Not Given Escitalopram Oxalate (Lexapro) 5 mg PO DAILY [facility] Last Admin: 03/03/17 09:52 Dose: 5 mg Hydromorphone HCl (Dilaudid) 1 mg IVP Q4H PRN PRN Reason: Pain, severe (8-10) Last Admin: 03/03/17 21:57 Dose: 1 mg Ciprofloxacin (Cipro 400mg/200ml Dsw) 400 mg in 200 mls @ 133 mls/hr IVPB Q12H [facility] Last Admin: 03/03/17 17:54 Dose: 133 mls/hr Lactobacillus Acidophilus (Bacid Acidophilus) 1 cap PO BID [facility] Last Admin: 03/03/17 17:55 Dose: 1 cap Ondansetron HCl (Zofran Inj) 4 mg IVP Q6 PRN PRN Reason: Nausea/Vomiting Last Admin: 02/24/17 17:56 Dose: 4 mg Quetiapine Fumarate (Seroquel) 100 mg PO HS [facility] Last Admin: 03/03/17 22:25 Dose: 100 mg - Labs Labs: 02/26/17 06:49 02/26/17 06:49 PT 13.5 SECONDS (9.7-12.2) H 06/29/17 06:35 INR 1.2 02/19/17 06:35 APTT 31 SECONDS (21-34) 02/19/17 06:35 - Constitutional Appears: No Acute Distress - Head Exam Head Exam: ATRAUMATIC, NORMOCEPHALIC - Eye Exam Eye Exam: Normal appearance Pupil Exam: NORMAL ACCOMODATION - ENT Exam ENT Exam: Mucous Membranes Moist - Neck Exam Neck Exam: Normal Inspection - Respiratory Exam Respiratory Exam: Clear to Ausculation Bilateral, NORMAL BREATHING PATTERN - Cardiovascular Exam Cardiovascular Exam: REGULAR RHYTHM - GI/Abdominal Exam GI & Abdominal Exam: Soft Additional comments: colostomy present - Extremities Exam Extremities Exam: Normal Inspection - Skin Additional comments: excoriation of perineum with dressing present Assessment and Plan (1) Abscess Status: Acute (2) Crohn disease Status: Acute (3) DVT (deep venous thrombosis) Status: Acute - Assessment and Plan (Free Text) Assessment: patient to go home off antibotics as he is betetr,no fever,no wbc and picc line to be removed also pt going on blood thinner hence antibiotic will have interaction
[2017-03-04] MEDS: DiphenhydrAMINE 50 mg/ml Inj IVP PRN ×6 (01:54→22:36)
[2017-03-04] MEDS: HYDROmorphone 1 mg/ml ISec IVP PRN ×6 (01:59→22:39)
[2017-03-04] MEDS: Ciprofloxacin 400mg/200ml D5W 400 MG/200 ML BAG IVPB SCH ×2 (05:09→18:00)
[2017-03-04] MEDS: Lactobacillus Acidophilus 500 MU Cap PO SCH ×2 (10:28→20:14)
[2017-03-04] MEDS: Enoxaparin 60 mg Syringe SC SCH ×2 (10:28→21:57)
--- NOTE | 2017-03-04 18:13 | CP.PCM.PN ---
Subjective - Date & Time of Evaluation Date of Evaluation: 03/04/17 Time of Evaluation: 07:20 - Subjective Subjective: clinically same Objective - Vital Signs/Intake and Output Vital Signs (last 24 hours): Temp Pulse Resp BP Pulse Ox 98.6 F 93 H 20 112/79 100 03/04/17 16:00 03/04/17 16:00 03/04/17 16:00 03/04/17 16:00 03/04/17 16:00 Intake and Output: 03/04/17 03/04/17 06:59 18:59 Intake Total 800 400 Output Total 1450 250 Balance -650 150 - Medications Medications: Current Medications Diphenhydramine HCl (Benadryl) 25 mg IVP Q4H PRN PRN Reason: Itching / Pruritus Last Admin: 03/04/17 14:03 Dose: 25 mg Enoxaparin Sodium (Lovenox) 60 mg SC Q12 [facility] Last Admin: 03/04/17 10:28 Dose: Not Given Escitalopram Oxalate (Lexapro) 5 mg PO DAILY [facility] Last Admin: 03/04/17 10:27 Dose: 5 mg Hydromorphone HCl (Dilaudid) 1 mg IVP Q4H PRN PRN Reason: Pain, severe (8-10) Last Admin: 03/04/17 14:03 Dose: 1 mg Ciprofloxacin (Cipro 400mg/200ml Dsw) 400 mg in 200 mls @ 133 mls/hr IVPB Q12H [facility] Last Admin: 03/04/17 05:09 Dose: 133 mls/hr Lactobacillus Acidophilus (Bacid Acidophilus) 1 cap PO BID [facility] Last Admin: 03/04/17 10:28 Dose: 1 cap Mesalamine (Delzicol) 800 mg PO TID [facility] Last Admin: 03/04/17 14:04 Dose: 800 mg Ondansetron HCl (Zofran Inj) 4 mg IVP Q6 PRN PRN Reason: Nausea/Vomiting Last Admin: 02/24/17 17:56 Dose: 4 mg Quetiapine Fumarate (Seroquel) 100 mg PO HS [facility] Last Admin: 03/03/17 22:25 Dose: 100 mg - Labs Labs: 02/26/17 06:49 02/26/17 06:49 PT 13.5 SECONDS (9.7-12.2) H 02/19/17 06:35 INR 1.2 02/19/17 06:35 APTT 31 SECONDS (21-34) 02/19/17 06:35 Assessment and Plan (1) DVT (deep venous thrombosis) Status: Acute (2) Diarrhea Status: Acute (3) Intractable pain Status: Acute (4) Wound of right buttock Status: Acute (5) Abdominal pain Status: Acute (6) Abscess Status: Acute (7) Constipation Status: Acute (8) Crohn disease Status: Acute (9) Diarrhea Status: Acute (10) Encounter for wound care Status: Acute (11) Fever Status: Acute (12) Foreign body Status: Acute (13) Intractable abdominal pain Status: Acute (14) Prophylactic measure Status: Acute (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
[2017-03-05] MEDS: DiphenhydrAMINE 50 mg/ml Inj IVP PRN ×5 (02:45→23:01)
[2017-03-05] MEDS: HYDROmorphone 1 mg/ml ISec IVP PRN ×3 (02:46→10:49)
[2017-03-05] MEDS: Ciprofloxacin 400mg/200ml D5W 400 MG/200 ML BAG IVPB SCH ×2 (06:49→17:35)
[2017-03-05] MEDS: Enoxaparin 60 mg Syringe SC SCH ×2 (10:50→22:27)
[2017-03-05] MEDS: Lactobacillus Acidophilus 500 MU Cap PO SCH ×2 (12:35→17:37)
[2017-03-05] MEDS: HYDROmorphone 0.5 mg/0.5 ml ISec IVP PRN ×3 (14:51→23:03)
[2017-03-06] MEDS: HYDROmorphone 0.5 mg/0.5 ml ISec IVP PRN ×6 (03:04→23:09)
[2017-03-06] MEDS: DiphenhydrAMINE 50 mg/ml Inj IVP PRN ×6 (03:06→23:09)
[2017-03-06] MEDS: Ciprofloxacin 400mg/200ml D5W 400 MG/200 ML BAG IVPB SCH ×2 (05:14→17:52)
[2017-03-06 07:27] LABS: ALBUMIN 3.4 g/dL (3.5-5.0)
[2017-03-06 07:30] LABS: ALT/SGPT 32 U/L (21-72); AST/SGOT 30 U/L (17-59); BLOOD UREA NITROGEN 13 mg/dL (9-20); GFR AFRICAN-AMERICAN > 60; GFR NON-AFRICAN AMERICAN > 60
[2017-03-06 07:31] LABS: CALCIUM 8.5 mg/dl (8.6-10.4)
[2017-03-06 07:33] LABS: BASO # 0.1 K/uL (0.0-0.2); BASO % 0.6 % (0.0-2.0); EOS # 0.7 K/uL (0.0-0.7); EOS % 6.4 % (0.0-4.0); HEMOGLOBIN 9.6 g/dL (12.0-18.0); LYMPH # 3.5 K/uL (1.0-4.3); LYMPH % 30.6 % (20.0-40.0); MEAN CELL VOLUME 69.9 fL (80.0-94.0); MEAN CORPUSCULAR HEMOGLOBIN 21.2 pg (27.0-31.0); MEAN CORPUSCULAR HGB CONC 30.4 g/dL (33.0-37.0); MEAN PLATELET VOLUME 8.2 fL (7.2-11.7); MONO # 0.6 K/uL (0.0-0.8); MONO % 5.7 % (0.0-10.0); NEUT # 6.4 K/uL (1.8-7.0); NEUT % 56.7 % (50.0-75.0); RBC 4.51 Mil/uL (4.40-5.90); WHITE BLOOD COUNT 11.3 K/uL (4.8-10.8)
[2017-03-06] MEDS ORDERED: Potassium Chloride 20 mEq ER Tab PO STA (09:08)
--- NOTE | 2017-03-06 09:30 | CP.PCM.PN ---
Subjective - Date & Time of Evaluation Date of Evaluation: 03/06/17 Time of Evaluation: 07:20 - Subjective Subjective: clinically same Objective - Vital Signs/Intake and Output Vital Signs (last 24 hours): Temp Pulse Resp BP Pulse Ox 99.1 F 101 H 20 105/73 99 03/06/17 00:00 03/06/17 00:00 03/06/17 00:00 03/06/17 00:00 03/06/17 00:00 Intake and Output: 03/06/17 03/06/17 06:59 18:59 Intake Total 470 Output Total 600 Balance -130 - Medications Medications: Current Medications Diphenhydramine HCl (Benadryl) 25 mg IVP Q4H PRN PRN Reason: Itching / Pruritus Last Admin: 03/06/17 06:59 Dose: 25 mg Enoxaparin Sodium (Lovenox) 60 mg SC Q12 [facility] Last Admin: 03/05/17 22:27 Dose: Not Given Escitalopram Oxalate (Lexapro) 5 mg PO DAILY [facility] Last Admin: 03/05/17 10:50 Dose: 5 mg Hydromorphone HCl (Dilaudid) 0.5 mg IVP Q4H PRN PRN Reason: Pain, severe (8-10) Last Admin: 03/06/17 07:00 Dose: 0.5 mg Ciprofloxacin (Cipro 400mg/200ml Dsw) 400 mg in 200 mls @ 133 mls/hr IVPB Q12H [facility] Last Admin: 03/06/17 05:14 Dose: 133 mls/hr Lactobacillus Acidophilus (Bacid Acidophilus) 1 cap PO BID [facility] Last Admin: 03/05/17 17:37 Dose: 1 cap Mesalamine (Delzicol) 800 mg PO TID [facility] Last Admin: 03/05/17 17:37 Dose: 800 mg Ondansetron HCl (Zofran Inj) 4 mg IVP Q6 PRN PRN Reason: Nausea/Vomiting Last Admin: 02/24/17 17:56 Dose: 4 mg Quetiapine Fumarate (Seroquel) 100 mg PO HS [facility] Last Admin: 03/05/17 22:27 Dose: 100 mg - Labs Labs: 03/06/17 07:05 03/06/17 07:05 PT 13.5 SECONDS (9.7-12.2) H 02/19/17 06:35 INR 1.2 02/19/17 06:35 APTT 31 SECONDS (21-34) 02/19/17 06:35 - Constitutional Appears: Well - Head Exam Head Exam: ATRAUMATIC, NORMAL INSPECTION, NORMOCEPHALIC - Eye Exam Eye Exam: EOMI, Normal appearance, PERRL Pupil Exam: NORMAL ACCOMODATION, PERRL - ENT Exam ENT Exam: Mucous Membranes Moist, Normal Exam - Neck Exam Neck Exam: Full ROM, Normal Inspection. absent: Lymphadenopathy - Respiratory Exam Respiratory Exam: Decreased Breath Sounds - Cardiovascular Exam Cardiovascular Exam: REGULAR RHYTHM, +S1, +S2 - GI/Abdominal Exam GI & Abdominal Exam: Soft, Diminished Bowel Sounds - Rectal Exam Rectal Exam: Deferred Assessment and Plan (1) DVT (deep venous thrombosis) Status: Acute (2) Diarrhea Status: Acute (3) Intractable pain Status: Acute (4) Wound of right buttock Status: Acute (5) Abdominal pain Status: Acute (6) Abscess Status: Acute (7) Constipation Status: Acute (8) Crohn disease Status: Acute (9) Diarrhea Status: Acute (10) Encounter for wound care Status: Acute (11) Fever Status: Acute (12) Foreign body Status: Acute (13) Intractable abdominal pain Status: Acute (14) Prophylactic measure Status: Acute (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
[2017-03-06] MEDS: Lactobacillus Acidophilus 500 MU Cap PO SCH ×2 (10:12→17:49)
[2017-03-06] MEDS: Enoxaparin 60 mg Syringe SC SCH (10:13)
[2017-03-06 15:48] VITALS: TEMP 98.1
--- NOTE | 2017-03-06 19:18 | CP.PCM.PN ---
Subjective - Date & Time of Evaluation Date of Evaluation: 03/06/17 Time of Evaluation: 02:00 - Subjective Subjective: Patient says he is going to rehab and IF not he will be released to home tomorrow,he does not feel better as he is not eating Objective - Vital Signs/Intake and Output Vital Signs (last 24 hours): Temp Pulse Resp BP Pulse Ox 98.1 F 83 20 103/68 99 03/06/17 15:00 03/06/17 15:00 03/06/17 15:00 03/06/17 15:00 03/06/17 15:00 Intake and Output: 03/06/17 03/07/17 18:59 06:59 Intake Total 400 Output Total 700 Balance -300 - Medications Medications: Current Medications Apixaban (Eliquis) 2.5 mg PO BID [facility] Last Admin: 03/06/17 18:07 Dose: 2.5 mg Diphenhydramine HCl (Benadryl) 25 mg IVP Q4H PRN PRN Reason: Itching / Pruritus Last Admin: 03/06/17 19:09 Dose: 25 mg Escitalopram Oxalate (Lexapro) 5 mg PO DAILY [facility] Last Admin: 03/06/17 10:12 Dose: 5 mg Hydromorphone HCl (Dilaudid) 0.5 mg IVP Q4H PRN PRN Reason: Pain, severe (8-10) Last Admin: 03/06/17 19:09 Dose: 0.5 mg Ciprofloxacin (Cipro 400mg/200ml Dsw) 400 mg in 200 mls @ 133 mls/hr IVPB Q12H [facility] Last Admin: 03/06/17 17:52 Dose: 133 mls/hr Lactobacillus Acidophilus (Bacid Acidophilus) 1 cap PO BID [facility] Last Admin: 03/06/17 17:49 Dose: 1 cap Mesalamine (Delzicol) 800 mg PO TID [facility] Last Admin: 03/06/17 17:50 Dose: 800 mg Ondansetron HCl (Zofran Inj) 4 mg IVP Q6 PRN PRN Reason: Nausea/Vomiting Last Admin: 02/24/17 17:56 Dose: 4 mg Quetiapine Fumarate (Seroquel) 100 mg PO HS [facility] Last Admin: 03/05/17 22:27 Dose: 100 mg - Labs Labs: 03/06/17 07:05 03/06/17 07:05 PT 13.5 SECONDS (9.7-12.2) H 02/19/17 06:35 INR 1.2 02/19/17 06:35 APTT 31 SECONDS (21-34) 02/19/17 06:35 - Constitutional Appears: No Acute Distress - Head Exam Head Exam: ATRAUMATIC, NORMOCEPHALIC - Eye Exam Eye Exam: Normal appearance - ENT Exam ENT Exam: Mucous Membranes Moist - Respiratory Exam Respiratory Exam: Clear to Ausculation Bilateral - Cardiovascular Exam Cardiovascular Exam: REGULAR RHYTHM - GI/Abdominal Exam GI & Abdominal Exam: Soft Additional comments: colostomy present - Extremities Exam Extremities Exam: Normal Inspection - Skin Additional comments: abscesses with dressings in perineum and sacral cleft Assessment and Plan (1) Abscess Assessment & Plan: patient has had multiples of abscess and will need to keep good hygiene and follow with GI to see how he can increase his immunity by having better nutrition Status: Acute (2) Crohn disease Status: Acute (3) DVT (deep venous thrombosis) Status: Acute
--- NOTE | 2017-03-06 23:37 | PCM.PYCHPN ---
Psychiatric Progress Note - Psychiatric Progress Note Patient seen today, length of contact: 15 min Patient Chief Complaint: "I still can't sleep" Problems Identified/Issues Discussed: The pt is seen, chart reviewed, case discussed with staff. Support given, CBT used briefly Seroquel increased - no SEs He switched day and night cycles almost Ways to deal discussed Cleared for discharge Medication Change: Yes (increase seroquel) Medical Record Reviewed: Yes Mental Status Examination - Cognitive Function Orientation: Person, Place, Situation, Time Memory: Intact Attention: WNL Concentration: Poor Association: WNL Fund of Knowledge: WNL - Mood Mood: Depressed, Anxious - Affect Affect: Constricted - Speech Speech: Appropriate - Formal Thought Process Formal Thought Process: No Impairment - Suicidal Ideation Suicidal Ideation: No - Homicidal Ideation Homicidal Ideation: No Goal/Treatment Plan - Goal/Treatment Plan Need for Continued Stay: Other (medical) Progress Toward Problem(s) and Goals/Treatment Plan: Lexapro for depression and anxiety Seroquel for insomnia and also dep/anx Support, CBt and psychoeducation Will sign off again Cleared for d/c
[2017-03-07] MEDS: HYDROmorphone 0.5 mg/0.5 ml ISec IVP PRN ×3 (03:09→11:18)
[2017-03-07] MEDS: DiphenhydrAMINE 50 mg/ml Inj IVP PRN ×3 (03:09→11:21)
[2017-03-07] MEDS: Ciprofloxacin 400mg/200ml D5W 400 MG/200 ML BAG IVPB SCH (05:15)
[2017-03-07] MEDS: Lactobacillus Acidophilus 500 MU Cap PO SCH (09:31)
[2017-03-07 12:21] VITALS: BP 104/74; PULSE 91; O2SAT 100
--- NOTE | 2017-03-07 13:33 | CP.PCM.PN ---
Subjective - Date & Time of Evaluation Date of Evaluation: 03/07/17 Time of Evaluation: 13:30 - Subjective Subjective: 22 Y/O MALE SEEN AND EXAMINED, ADMITTED FOR CHRON'S DISEASE, DVT AND RECURRENT ABSCESS, PT DENIES ANY CP, SOB, RESP EASY AND UNLABORED, NAD, PT CLEARED FOR D/ C PER DR Eric WALKER AND DR SMITH, RX FOR ABX, ELIQUIS, ACIDOPHILUS GIVEN, EMELYN PICC LINE REMOVED, TIP INTACT, TOLERATED WELL, PT EDUCATED TO F/U W/DR. Eric WALKER IN THE OFFICE IN ONE WEEK, CONTINUE WOUND CARE, RETURN TO ER IF ANY WORSENING S/S, AGREE, VERBALIZE UNDERSTANDING. Objective - Vital Signs/Intake and Output Vital Signs (last 24 hours): Temp Pulse Resp BP Pulse Ox 98.1 F 91 H 20 104/74 100 03/07/17 00:00 03/07/17 00:00 03/07/17 00:00 03/07/17 00:00 03/07/17 00:00 Intake and Output: 03/07/17 03/07/17 06:59 18:59 Intake Total 1140 Output Total 650 Balance 490 - Medications Medications: Current Medications Apixaban (Eliquis) 2.5 mg PO BID [facility] Last Admin: 03/07/17 09:30 Dose: 2.5 mg Diphenhydramine HCl (Benadryl) 25 mg IVP Q4H PRN PRN Reason: Itching / Pruritus Last Admin: 03/07/17 11:21 Dose: 25 mg Escitalopram Oxalate (Lexapro) 5 mg PO DAILY [facility] Last Admin: 03/07/17 09:32 Dose: 5 mg Hydromorphone HCl (Dilaudid) 0.5 mg IVP Q4H PRN PRN Reason: Pain, severe (8-10) Last Admin: 03/07/17 11:18 Dose: 0.5 mg Ciprofloxacin (Cipro 400mg/200ml Dsw) 400 mg in 200 mls @ 133 mls/hr IVPB Q12H [facility] Last Admin: 03/07/17 05:15 Dose: 133 mls/hr Lactobacillus Acidophilus (Bacid Acidophilus) 1 cap PO BID [facility] Last Admin: 03/07/17 09:31 Dose: 1 cap Mesalamine (Delzicol) 800 mg PO TID [facility] Last Admin: 03/07/17 11:12 Dose: 800 mg Ondansetron HCl (Zofran Inj) 4 mg IVP Q6 PRN PRN Reason: Nausea/Vomiting Last Admin: 02/24/17 17:56 Dose: 4 mg Quetiapine Fumarate (Seroquel) 200 mg PO HS [facility] - Labs Labs: 03/06/17 07:05 03/06/17 07:05 PT 13.5 SECONDS (9.7-12.2) H 02/19/17 06:35 INR 1.2 02/19/17 06:35 APTT 31 SECONDS (21-34) 02/19/17 06:35
--- NOTE | 2017-03-10 14:42 | PCM.OP ---
Operative Report - Operative Report Date of Surgery/Procedure: 02/20/17 Time of Surgery/Procedure: 14:00 Surgeon: Temo Taylor MD. Counterintelligence Agent: Wong Padilla MD. Anesthesia/Sedation: General anesthesia Pre-Operative Diagnosis: 1. Perineal abscess. 2. Unknown healing chronic perineal wound. 3. Crohn's Disease. Post-Operative Diagnosis: 1. Perineal abscess. 2. Unknown healing chronic perineal wound. 3. Crohn's Disease. Indication for Surgery: 1. Perineal abscess. 2. Unknown healing chronic perineal wound. Operative Findings: Patient had an abscess at the presacral area with a necrotic tissue. Patient had a open non-healing hypergranulating perineal wound posteriorly, medially as well as anteriorly below the scrotum. The whole perineum was completely inwalled of the wound. Procedure/Operation Description: 1. Incision and drainage of perineal abscess. 2. Excisional debridement of the abscess cavity wound. 3. Excisional debridement of mid perineal wound. 4. Excisional debridement of anterior perineal wound below scrotum. 21 y/o male was diagnosed with a perineal abscess as well as a non-healing perineal wound. Patient was consented for the incision and drainage and debridement of the perineal wound. Brought to [facility], and placed in a left lateral position and the right leg was lifted up with the stirrup and the perineal area was and prepped and draped. Post- abscess cavity was drained in the presacral area posteriorly and the abscess cavity was debrided. The excisional debridement was done with blunt and sharp dissection. The size of the wound was approximately 3 cm x 4 cm. Now, the posterior perineal wound was debrided and the size of the wound was approximately 5 cm x 4 cm x 3 cm. Now, the mid perineal wound was debrided behind the anterior anal opening and was approximately 5 cm x 6 cm x 4 cm. The anterior perineal wound below the scrotum was also debrided and all of the debrided tissue was sent for the pathology. Hemostasis was achieved. Packed without uniform packing and dry, sterile dressing applied. Patient tolerated procedure well. Count of instruments was correct. Estimated Blood Loss: 50 cc. Drains: None. Complications: None. Specimen: 1. The pus was sent for the culture and sensitivity. 2. Excisional debridement tissue was sent for pathology. Discharge & Condition: Stable
== END 2017-03-07 14:19 | disposition home or self-care (01) | DRG 269 ==
LOC: C.ER 16:49 → C.9E 19:39 → C.3T 21:26
PROVIDERS: ADMIT Internal Medicine Nephrology; ATTEND Internal Medicine Nephrology
PROC: 02HV33Z Insertion of Infusion Device into Superior Vena Cava, Percutaneous Approach (ICD-10-PCS; 2017-02-02)
PROC: 0J9B0ZZ Drainage of Perineum Subcutaneous Tissue and Fascia, Open Approach (ICD-10-PCS; principal; 2017-02-20 11:00)
PROC: 0JDB0ZZ Extraction of Perineum Subcutaneous Tissue and Fascia, Open Approach (ICD-10-PCS; 2017-02-20 11:00)
DX: L02.215 Cutaneous abscess of perineum (principal); K50.111 Crohn's disease of large intestine with rectal bleeding; I82.C11 Acute embolism and thrombosis of right internal jugular vein; K61.1 Rectal abscess; K92.0 Hematemesis; L02.11 Cutaneous abscess of neck; L98.419 Non-pressure chronic ulcer of buttock with unspecified severity; F33.1 Major depressive disorder, recurrent, moderate; L02.214 Cutaneous abscess of groin; D64.9 Anemia, unspecified; F41.9 Anxiety disorder, unspecified; G47.00 Insomnia, unspecified; K59.00 Constipation, unspecified; Z93.3 Colostomy status; Z90.49 Acquired absence of other specified parts of digestive tract

== ENCOUNTER 2017-03-22 18:27 | Inpatient (IN) | payer MEDICAID ==
[2017-03-22 18:28] VITALS: BMI 20.6
--- NOTE | 2017-03-22 18:44 | C.PDOC ---
History Of Present Illness 22 year old male presents to the emergency department, with history of Chron's Disease and chronic perianal abscesses that is ongoing for years, presents with exacerbation of chronic abscesses. Patient states his GI doctor recommended he go to the emergency department to control infection to allow for Remicade for Chron's disease. He also reports diffuse anterior chest pain for two hours prior to arrival with no exacerbating or relieving factors and intermittent episodes of subjective fever. Patient denies any other complaints at this time. Time Seen by Provider: 03/22/17 18:43 Chief Complaint (Nursing): Chest Pain History Per: Patient History/Exam Limitations: no limitations Onset/Duration Of Symptoms: Hrs (chest pain two hours prior to arrival), Intermittent Episodes (subjective fever), Persistent (Chronic perianal abscesses and Chron's disease for years) Current Symptoms Are (Timing): Still Present Quality: "Pain" Associated Symptoms: denies: Nausea, Dyspnea, Diaphoresis, Syncope Exacerbating Factors: None Recent travel outside of the [place]: No Additional History Per: Prior Records Past Medical History Reviewed: Historical Data, Nursing Documentation, Vital Signs Vital Signs: Last Vital Signs Temp 98.1 F 03/27/17 15:46 Pulse 105 H 03/27/17 15:46 Resp 18 03/27/17 15:46 BP 102/64 03/27/17 15:46 Pulse Ox 98 03/27/17 19:35 - Medical History PMH: Crohn's Disease (COLOSTOMY 2016), Depression - [facility] Procedures DRAINAGE OF BACK SUBCU/FASCIA, OPEN APPROACH (10/21/16) DRAINAGE OF BUTTOCK SKIN, EXTERNAL APPROACH, DIAGNOSTIC (09/23/16) DRAINAGE OF BUTTOCK SUBCU/FASCIA, OPEN APPROACH (10/21/16) DRAINAGE OF LEFT AXILLA, OPEN APPROACH (12/21/16) DRAINAGE OF PERINEUM SUBCU/FASCIA, OPEN APPROACH (01/30/17) EXCISION OF BACK SKIN, EXTERNAL APPROACH (09/23/16) EXCISION OF BACK SUBCU/FASCIA, OPEN APPROACH (10/21/16) EXCISION OF BUTTOCK SUBCU/FASCIA, OPEN APPROACH (10/21/16) EXCISION OF LEFT AXILLARY LYMPHATIC, OPEN APPROACH (12/21/16) EXCISION OF PERINEUM SKIN, EXTERNAL APPROACH (09/23/16) EXTRACTION OF BUTTOCK SKIN, EXTERNAL APPROACH (09/23/16) EXTRACTION OF PERINEUM SUBCU/FASCIA, OPEN APPROACH (01/30/17) GROUP PSYCHOTHERAPY (11/25/16) INDIVIDUAL PSYCHOTHERAPY, COGNITIVE-BEHAVIORAL (11/25/16) INDIVIDUAL PSYCHOTHERAPY, SUPPORTIVE (11/25/16) INSERTION OF INFUSION DEV INTO SUP VENA CAVA, PERC APPROACH (01/30/17) REMOVAL OF INFUSION DEV FROM GREAT VESSEL, IN STORE MARKETING ASSOCIATE APPROACH (12/21/16) Family History: States: Other Other Family History: Non-contributory. - Social History Hx Alcohol Use: No Hx Substance Use: No - Immunization History Hx Tetanus Toxoid Vaccination: No Hx Influenza Vaccination: No Hx Pneumococcal Vaccination: No Review Of Systems Except As Marked, All Systems Reviewed And Found Negative. Constitutional: Positive for: Fever (intermittent subjective fever) Cardiovascular: Positive for: Chest Pain Respiratory: Negative for: Cough, Shortness of Breath Gastrointestinal: Negative for: Vomiting Skin: Positive for: Other (Perianal abscesses ) Physical Exam - Physical Exam Appears: Non-toxic, No Acute Distress Skin: Warm, Dry, Other (Multiple draining wounds on sacrum and gluteal folds. Clots presents in the IJ. ) Head: Atraumatic Eye(s): bilateral: Normal Inspection, PERRL, EOMI Oral Mucosa: Moist Neck: Supple Chest: Symmetrical, No Deformity Cardiovascular: Other (sinus tachycardia 119 bpm) Respiratory: Normal Breath Sounds, No Rhonchi, No Wheezing Extremity: Normal ROM, No Tenderness Neurological/Psych: Oriented x3 ED Course And Treatment - Laboratory Results Result Diagrams: 03/26/17 04:38 03/26/17 04:38 ECG Rhythm: Sinus Tachycardia (119 bpm) O2 Sat by Pulse Oximetry: 98 (room air ) Progress Note: EKG, blood work, CXR, Angio Chest PE protocol were ordered. Patient was given dilaudid, piperacill, and Vancomycin. Disposition - Disposition Disposition: HOSPITALIZED Disposition Time: 22:00 Condition: STABLE - Clinical Impression Clinical Impression: Pulmonary embolism, Abscess, Crohn disease - Scribe Statement The provider has reviewed the documentation as recorded by the Laneyibkenna Olivia All medical record entries made by the Laneyibkenna were at my direction and personally dictated by me. I have reviewed the chart and agree that the record accurately reflects my personal performance of the history, physical exam, medical decision making, and the department course for this patient. I have also personally directed, reviewed, and agree with the discharge instructions and disposition.
[2017-03-22] MEDS ORDERED: HYDROmorphone 1 mg/ml ISec IVP STA ×2 (19:29→23:37)
[2017-03-22] MEDS ORDERED: Sodium Chloride 0.9% 1,000 ML IV ONE (19:29)
[2017-03-22] MEDS ORDERED: Piperacill/Tazo 3.375gm in Dex 3.375 GM/50 ML BAG IVPB STA (19:37)
[2017-03-22] MEDS ORDERED: Vancomycin 500 mg Inj IVPB STA (19:37)
[2017-03-22 20:00] LABS: VENOUS BLOOD GAS BASE EXCESS 1.7 mmol/L (0.0-2.0); VENOUS BLOOD GAS PCO2 45 mmHg (40-60); VENOUS BLOOD PH 7.39 (7.32-7.43)
[2017-03-22] MEDS ORDERED: Vancomycin 0.9 GM in Sodium Chloride 0.9% 250 ML IVPB ONE (20:00)
[2017-03-22] MEDS ORDERED: Piperacillin/Tazobact 3.375 gm 100 ML IVPB ONE (20:03)
[2017-03-22] MEDS ORDERED: Vancomycin 1 GM 1 GM/250 ML BAG IVPB ONE (20:04)
[2017-03-22 21:19] LABS: BASO # 0.1 K/uL (0.0-0.2); BASO % 0.6 % (0.0-2.0); EOS # 0.2 K/uL (0.0-0.7); EOS % 1.4 % (0.0-4.0); HEMATOCRIT 31.4 % (35.0-51.0); LYMPH % 24.3 % (20.0-40.0); MEAN CORPUSCULAR HGB CONC 30.9 g/dL (33.0-37.0); MEAN PLATELET VOLUME 8.6 fL (7.2-11.7); MONO % 6.2 % (0.0-10.0); WHITE BLOOD COUNT 16.3 K/uL (4.8-10.8)
[2017-03-22 21:38] LABS: CHLORIDE 99 mmol/L (98-107); POTASSIUM 3.6 mmol/L (3.6-5.2); SODIUM 139 mmol/L (132-148)
[2017-03-22 21:40] LABS: ALB/GLOB RATIO 1.1 (1.0-2.1); ALKALINE PHOSPHATASE 132 U/L (38-126); AST/SGOT 18 U/L (17-59); BILIRUBIN,TOTAL 0.5 mg/dL (0.2-1.3); CARBON DIOXIDE 25 mmol/L (22-30); GFR AFRICAN-AMERICAN > 60; TOTAL PROTEIN 7.3 g/dL (6.3-8.3)
[2017-03-22 21:41] LABS: ALT/SGPT 35 U/L (21-72); BLOOD UREA NITROGEN 13 mg/dL (9-20); CALCIUM 8.6 mg/dl (8.6-10.4); GLUCOSE,RANDOM 76 mg/dL (75-110)
[2017-03-22] MEDS ORDERED: Iodixanol 320 MG/ML 100 ML BOTTLE IV ONE (21:59)
[2017-03-22] MEDS ORDERED: DiphenhydrAMINE 50 mg/ml Inj IVP STA (22:08)
[2017-03-22] MEDS ORDERED: DiphenhydrAMINE 50 mg/ml Inj ONE (22:13)
--- NOTE | 2017-03-22 22:58 | CT ---
EXAM: CT Angiography Chest With Intravenous Contrast CLINICAL HISTORY: 22 years old, male; Pain; Chest pain; Type not specified; Additional info: Chest pain HX ox dvt in ij; Crohn's disease TECHNIQUE: Axial computed tomographic angiography images of the chest with intravenous contrast using pulmonary embolism protocol. This CT exam was performed using one or more of the following dose reduction techniques: automated exposure control, adjustment of the mA and/or kV according to patient size, and/or use of iterative reconstruction technique. MIP reconstructed images were created and reviewed. Coronal and sagittal reformatted images were created and reviewed. CONTRAST: 100 mL of [id number] administered intravenously. EXAM DATE/TIME: 03/22/2017 7:28 PM COMPARISON: There are no prior studies for comparison. FINDINGS: Heart, aorta and Pulmonary arteries: Heart size is normal.There is fluid in the pericardial recesses.There is no aneurysm or dissection. There is perfusion of the arch vessels. There is a linear nonocclusive filling defect in a peripheral right lower lobe pulmonary artery, image 123 series 2, image 33 series 604. There are no other filling defects. Lungs and pleural spaces: Trachea and main bronchi are patent. There is minimal groundglass opacity at the lung bases. There is no lobar or segmental consolidation. There are no effusions. Mediastinum: Esophagus is unremarkable.There are no pathologically enlarged mediastinal or hilar nodes Thyroid: Thyroid is unremarkable Bones/joints: There are no acute osseous abnormalities Soft tissues: unremarkable Upper abdomen: There are no acute abnormalities in the visualized portion of the abdomen. IMPRESSION: Small peripheral right lower lobe pulmonary embolus
[2017-03-22] MEDS ORDERED: Enoxaparin 60 mg Syringe SC STA (23:01)
[2017-03-22] MEDS ORDERED: Enoxaparin 60 mg Syringe ONE (23:12)
[2017-03-23] MEDS ORDERED: HYDROmorphone 1 mg/ml ISec IVP ONE (03:30)
[2017-03-23] MEDS ORDERED: DiphenhydrAMINE 50 mg/ml Inj IVP ONE (03:30)
--- NOTE | 2017-03-23 05:52 | CP.PCM.CON ---
<Mikal Rashid - Last Filed: 03/23/17 05:54> History of Present Illness - History of Present Illness History of Present Illness: Pt is a 22 y.o M w/ PMHx of Crohn's disease and recurrent abscesses. Patient reported to the ED w/ complaints of chest pain. On chest CT patient was found to have small peripheral right pulmonary embolus. General Surgery was consulted for patient's chronic wounds. Pt reports non-healing ulcers along mid gluteal region and perineal region. At time of examination there was no active drainage from open wounds. Patient reports mild to moderate pain along wound sites. At time of examination patient was still experiencing some chest pain but states it had improved since admission he denied any shortness of breath, fever/ chills. Patient has a region of fluctuant skin along the right middle gluteal fold, no erythema noted. PMHx - see above PSHx - colon resection, colostomy, multiple I&D Allergies - Morphine Social - denies drug use, alcohol use, tobacco use Review of Systems - Review of Systems Review of Systems: 12 pt ROS carried out, unremarkable, except as stated in HPI Past Patient History - Infectious Disease Hx of Infectious Diseases: None - Past Medical History & Family History Past Medical History?: Yes - Past Social History Smoking Status: Never Smoked - CARDIAC Hx Cardiac Disorders: No - PULMONARY Hx Respiratory Disorders: No - NEUROLOGICAL Hx Neurological Disorder: No - HEENT Hx HEENT Problems: No - RENAL Hx Chronic Kidney Disease: No - ENDOCRINE/METABOLIC Hx Endocrine Disorders: No - HEMATOLOGICAL/ONCOLOGICAL Hx Blood Disorders: No - INTEGUMENTARY Hx Dermatological Problems: Yes Other/Comment: Perineal wound. Rectal abcess - MUSCULOSKELETAL/RHEUMATOLOGICAL Hx Musculoskeletal Disorders: No Hx Falls: No - GASTROINTESTINAL Hx Gastrointestinal Disorders: Yes Hx Colostomy: Yes Hx Crohn's Disease: Yes (COLOSTOMY 2016) - GENITOURINARY/GYNECOLOGICAL Hx Genitourinary Disorders: No - PSYCHIATRIC Hx Psychophysiologic Disorder: Yes Hx Depression: Yes Hx Substance Use: No - SURGICAL HISTORY Hx Surgeries: Yes (SEE COMMENT) Other/Comment: LOOP COLOSTOMY. Perineal wound. Right upper arm PICC line. COLON RESECTION - ANESTHESIA Hx Anesthesia: Yes Hx Anesthesia Reactions: No Hx Malignant Hyperthermia: No Has any member of the family had a problem w/ anesthesia?: No Meds Allergies/Adverse Reactions: Allergies Allergy/AdvReac Type Severity Reaction Status Date / Time morphine Allergy Severe ITCHING Verified 03/22/17 18:32 - Medications Medications: Current Medications Apixaban (Eliquis) 5 mg PO BID [facility] Cyanocobalamin (Vitamin B12 1000 Mcg Tab) 1,000 mcg PO DAILY [facility] Ferrous Sulfate (Feosol) 325 mg PO BID [facility] Vancomycin HCl 1 gm/ Sodium (Chloride) 250 mls @ 166.7 mls/hr IVPB STAT STA Stop: 03/23/17 05:14 Last Admin: 03/23/17 04:28 Dose: Not Given Piperacillin Sod/Tazobactam (Sod 3.375 gm/ Sodium Chloride) 100 mls @ 200 mls/ hr IVPB Q8H [facility] Mesalamine (Delzicol) 800 mg PO DAILY [facility] Pantoprazole Sodium (Protonix Ec Tab) 40 mg PO DAILY [facility] Physical Exam - Constitutional Appears: No Acute Distress - Head Exam Head Exam: NORMOCEPHALIC - Eye Exam Eye Exam: Normal appearance - ENT Exam ENT Exam: Mucous Membranes Moist - Respiratory Exam Respiratory Exam: NORMAL BREATHING PATTERN. absent: Accessory Muscle Use - Cardiovascular Exam Cardiovascular Exam: +S1, +S2 - GI/Abdominal Exam GI & Abdominal Exam: Soft. absent: Distended, Firm, Guarding, Tenderness - Neurological Exam Neurological exam: Alert, Oriented x3 - Psychiatric Exam Psychiatric exam: Normal Mood - Skin Skin Exam: Dry, Warm Results - Vital Signs Recent Vital Signs: Last Vital Signs Temp 98 F 03/23/17 00:10 Pulse 92 H 03/23/17 04:28 Resp 20 03/23/17 00:20 BP 112/72 03/23/17 00:10 Pulse Ox 99 03/23/17 00:20 - Labs Result Diagrams: 03/22/17 21:15 03/22/17 21:15 Assessment & Plan - Assessment and Plan (Free Text) Assessment: 22M w/ chronic wounds along gluteal and perineal regions 2/2 Chron's disease -Abx -Wound care management -Fluctuant site may warrant I&D -PE medical management per primary team -Analgesic -DVT/GI ppx -Further recs per Dr. Taylor <Temo Taylor - Last Filed: 03/24/17 19:44> Meds - Medications Medications: Current Medications Apixaban (Eliquis) 5 mg PO BID [facility] Last Admin: 03/23/17 10:07 Dose: 5 mg Cyanocobalamin (Vitamin B12 1000 Mcg Tab) 1,000 mcg PO DAILY [facility] Last Admin: 03/24/17 09:37 Dose: 1,000 mcg Diphenhydramine HCl (Benadryl) 25 mg IVP Q3 PRN PRN Reason: Itching / Pruritus Last Admin: 03/24/17 19:14 Dose: 25 mg Ferrous Sulfate (Feosol) 325 mg PO BID [facility] Last Admin: 03/24/17 17:26 Dose: 325 mg Hydromorphone HCl (Dilaudid) 1 mg IVP Q3 PRN PRN Reason: Pain, severe (8-10) Last Admin: 03/24/17 19:14 Dose: 1 mg Piperacillin Sod/Tazobactam (Sod 3.375 gm/ Sodium Chloride) 100 mls @ 200 mls/ hr IVPB Q8H [facility] Last Admin: 03/24/17 12:58 Dose: 200 mls/hr Heparin Sodium/Sodium Chloride (Heparin 57162 Units/250ml 1/2 Normal Saline) 25 ,000 units in 250 mls @ 12.773 mls/hr IV .[id number] PRN; Protocol; 22 UNITS/KG/HR PRN Reason: PROTOCOL Last Admin: 03/24/17 12:45 Dose: 22 units/kg/hr, 12.773 mls/hr Mesalamine (Delzicol) 800 mg PO DAILY [facility] Last Admin: 03/24/17 09:36 Dose: 800 mg Pantoprazole Sodium (Protonix Ec Tab) 40 mg PO DAILY [facility] Last Admin: 03/24/17 09:37 Dose: 40 mg Results - Vital Signs Recent Vital Signs: Last Vital Signs Temp 98.8 F 03/24/17 16:30 Pulse 104 H 03/24/17 16:45 Resp 20 03/24/17 16:30 BP 121/79 03/24/17 16:30 Pulse Ox 97 03/24/17 16:30 - Labs Result Diagrams: 03/24/17 04:12 03/24/17 11:37 Labs: Laboratory Results - last 24 hr 03/23/17 03/24/17 03/24/17 21:25 04:12 04:12 WBC 10.8 RBC 4.16 L Hgb 9.0 L Hct 28.7 L MCV 68.9 L MCH 21.5 L MCHC 31.2 L RDW 18.6 H Plt Count 374 MPV 7.9 APTT 24 84 H D Sodium Potassium Chloride Carbon Dioxide Anion Gap BUN Creatinine Est GFR ( Amer) Est GFR (Non-Af Amer) Random Glucose Calcium 03/24/17 03/24/17 11:37 11:37 WBC RBC Hgb Hct MCV MCH MCHC RDW Plt Count MPV APTT 55 H D Sodium 137 Potassium 4.3 Chloride 97 L Carbon Dioxide 26 Anion Gap 18 BUN 9 Creatinine 0.8 Est GFR ( Amer) > 60 Est GFR (Non-Af Amer) > 60 Random Glucose 81 Calcium 9.1 Attending/Attestation - Attestation I have personally seen and examined this patient.: Yes I have fully participated in the care of the patient.: Yes I have reviewed all pertinent clinical information: Yes Notes (Text): 03/24/17 19:41 Pt was seen and examined at bedside on 03/23/17 Agree with above note and assessment Pt with Perineal wound and crohn's dis Pt has small perineal abscess C/w IV antibiotics OR for I & D of abscess Consent Stop Elequis, start heparin Plan d.w pt and PMD Risk and benefit explained in detail.
[2017-03-23] MEDS: Piperacillin/Tazobact 3.375 GM in Sodium Chloride 100 ML IVPB SCH ×3 (07:00→20:53)
[2017-03-23] MEDS: DiphenhydrAMINE 50 mg/ml Inj IVP PRN ×5 (07:00→20:46)
--- NOTE | 2017-03-23 09:16 | RAD ---
HISTORY: Chest pain COMPARISON: No prior. FINDINGS: LUNGS: Mild venous congestion. PLEURA: No significant pleural effusion identified, no pneumothorax apparent. CARDIOVASCULAR: Normal. OSSEOUS STRUCTURES: No significant abnormalities. VISUALIZED UPPER ABDOMEN: Normal. OTHER FINDINGS: None. IMPRESSION: Mild venous congestion.
[2017-03-23] MEDS: Pantoprazole 40 mg EC Tab PO SCH (10:07)
[2017-03-23 11:36] LABS: BASO # 0.1 K/uL (0.0-0.2); BASO % 0.7 % (0.0-2.0); EOS # 0.4 K/uL (0.0-0.7); EOS % 3.3 % (0.0-4.0); HEMATOCRIT 33.2 % (35.0-51.0); LYMPH % 37.3 % (20.0-40.0); MEAN CELL VOLUME 69.2 fL (80.0-94.0); MEAN CORPUSCULAR HEMOGLOBIN 21.3 pg (27.0-31.0); MEAN CORPUSCULAR HGB CONC 30.7 g/dL (33.0-37.0); MEAN PLATELET VOLUME 8.5 fL (7.2-11.7); MONO # 0.8 K/uL (0.0-0.8); MONO % 7.2 % (0.0-10.0); NRBC % 0.1 % (0.0-2.0); RED CELL DISTRIBUTION WIDTH 18.5 % (11.5-14.5); WHITE BLOOD COUNT 10.7 K/uL (4.8-10.8)
[2017-03-23] MEDS ORDERED: Heparin25000 units/250ml 1/2NS 25,000 UNITS/250 ML BAG IV PRN (13:13)
[2017-03-23] MEDS ORDERED: HYDROmorphone 1 mg/ml ISec IVP PRN ×2 (13:45→14:10)
--- NOTE | 2017-03-23 13:48 | CARD ---
APPROVED REPORT EKG Measurement Heart [id number] <Conclusion> Sinus tachycardia Otherwise normal ECG
[2017-03-23] MEDS ORDERED: DiphenhydrAMINE 50 mg/ml Inj IVP PRN (14:10)
[2017-03-23 14:16] LABS: CHLORIDE 100 mmol/L (98-107)
[2017-03-23 14:17] LABS: POTASSIUM 4.1 mmol/L (3.6-5.2); SODIUM 138 mmol/L (132-148)
[2017-03-23 14:19] LABS: ALB/GLOB RATIO 1.1 (1.0-2.1); AST/SGOT 22 U/L (17-59); BILIRUBIN,TOTAL 0.7 mg/dL (0.2-1.3); BLOOD UREA NITROGEN 8 mg/dL (9-20); CARBON DIOXIDE 21 mmol/L (22-30); GFR AFRICAN-AMERICAN > 60
[2017-03-23 14:20] LABS: ALKALINE PHOSPHATASE 126 U/L (38-126); ALT/SGPT 33 U/L (21-72); CALCIUM 8.6 mg/dl (8.6-10.4); GLUCOSE,RANDOM 66 mg/dL (75-110)
--- NOTE | 2017-03-23 15:07 | CP.PCM.PN ---
Subjective - Date & Time of Evaluation Date of Evaluation: 03/23/17 Time of Evaluation: 13:00 - Subjective Subjective: [facility] called at 1:08 PM. Patient states he was in the bathroom and slipped on the wet floor because there was water on the floor. He hit his hip on the left side. He denies hitting his head, LOC, or any other injuries. Exam was normal and patient did not have any point tenderness at the hip joints. No lacerations or ecchymosis observed. Patient only complained of pain over his buttock abscess which is chronic for him. He was observed walking around the room with normal gait. Neuro exam normal. Patient was reexamined one hour later and was again ambulating around the room and had no complaints. He was awake and oriented as he was before. No changes in mental status. Nursing made aware to check on the patient frequently and page if any changes in mental status noted. Patient on frequent Dilaudid and benadyl. Dosing changed to every 4 hours as needed prn. Primary team to monitor pain medication dosing to make sure patient is not being overly sedated. Objective - Vital Signs/Intake and Output Vital Signs (last 24 hours): Temp Pulse Resp BP Pulse Ox 98.5 F 109 H 18 111/61 100 03/23/17 13:25 03/23/17 13:25 03/23/17 13:25 03/23/17 13:25 03/23/17 13:25 - Medications Medications: Current Medications Apixaban (Eliquis) 5 mg PO BID [facility] Last Admin: 03/23/17 10:07 Dose: 5 mg Cyanocobalamin (Vitamin B12 1000 Mcg Tab) 1,000 mcg PO DAILY [facility] Last Admin: 03/23/17 10:28 Dose: 1,000 mcg Diphenhydramine HCl (Benadryl) 25 mg IVP Q4 PRN PRN Reason: Itching / Pruritus Ferrous Sulfate (Feosol) 325 mg PO BID [facility] Last Admin: 03/23/17 10:12 Dose: 325 mg Hydromorphone HCl (Dilaudid) 1 mg IVP Q4 PRN PRN Reason: Pain, severe (8-10) Piperacillin Sod/Tazobactam (Sod 3.375 gm/ Sodium Chloride) 100 mls @ 200 mls/ hr IVPB Q8H [facility] Last Admin: 03/23/17 13:37 Dose: 200 mls/hr Heparin Sodium/Sodium Chloride (Heparin 80198 Units/250ml 1/2 Normal Saline) 25 ,000 units in 250 mls @ 10.451 mls/hr IV .[id number] PRN; Protocol; 18 UNITS/KG/HR PRN Reason: PROTOCOL Last Admin: 03/23/17 14:58 Dose: 18 units/kg/hr, 10.451 mls/hr Mesalamine (Delzicol) 800 mg PO DAILY [facility] Last Admin: 03/23/17 10:09 Dose: 800 mg Pantoprazole Sodium (Protonix Ec Tab) 40 mg PO DAILY [facility] Last Admin: 03/23/17 10:07 Dose: 40 mg - Labs Labs: 03/23/17 11:25 03/23/17 11:25 PT 11.9 SECONDS (9.7-12.2) 03/22/17 21:15 INR 1.0 03/22/17 21:15 APTT 28 SECONDS (21-34) 03/22/17 21:15
[2017-03-23] MEDS: HYDROmorphone 1 mg/ml ISec IVP PRN ×2 (17:21→20:47)
--- NOTE | 2017-03-23 18:33 | CP.PCM.HP ---
Past Patient History - Infectious Disease Hx of Infectious Diseases: None - Past Medical History & Family History Past Medical History?: Yes - Past Social History Smoking Status: Never Smoked - CARDIAC Hx Cardiac Disorders: No - PULMONARY Hx Respiratory Disorders: No - NEUROLOGICAL Hx Neurological Disorder: No - HEENT Hx HEENT Problems: No - RENAL Hx Chronic Kidney Disease: No - ENDOCRINE/METABOLIC Hx Endocrine Disorders: No - HEMATOLOGICAL/ONCOLOGICAL Hx Blood Disorders: No - INTEGUMENTARY Hx Dermatological Problems: Yes Other/Comment: Perineal wound. Rectal abcess - MUSCULOSKELETAL/RHEUMATOLOGICAL Hx Musculoskeletal Disorders: No Hx Falls: No - GASTROINTESTINAL Hx Gastrointestinal Disorders: Yes Hx Colostomy: Yes Hx Crohn's Disease: Yes (COLOSTOMY 2016) - GENITOURINARY/GYNECOLOGICAL Hx Genitourinary Disorders: No - PSYCHIATRIC Hx Psychophysiologic Disorder: Yes Hx Depression: Yes Hx Substance Use: No - SURGICAL HISTORY Hx Surgeries: Yes (SEE COMMENT) Other/Comment: LOOP COLOSTOMY. Perineal wound. Right upper arm PICC line. COLON RESECTION - ANESTHESIA Hx Anesthesia: Yes Hx Anesthesia Reactions: No Hx Malignant Hyperthermia: No Has any member of the family had a problem w/ anesthesia?: No Meds Allergies/Adverse Reactions: Allergies Allergy/AdvReac Type Severity Reaction Status Date / Time morphine Allergy Severe ITCHING Verified 03/22/17 18:32 Physical Exam - Constitutional Appears: Well - Head Exam Head Exam: ATRAUMATIC, NORMAL INSPECTION, NORMOCEPHALIC - Eye Exam Eye Exam: EOMI, Normal appearance, PERRL Pupil Exam: NORMAL ACCOMODATION, PERRL - ENT Exam ENT Exam: Mucous Membranes Moist, Normal Exam - Neck Exam Neck exam: Positive for: Normal Inspection - Respiratory Exam Respiratory Exam: Decreased Breath Sounds - Cardiovascular Exam Cardiovascular Exam: REGULAR RHYTHM, +S1, +S2 - GI/Abdominal Exam GI & Abdominal Exam: Diminished Bowel Sounds, Soft - Rectal Exam Rectal Exam: Deferred Results - Vital Signs Recent Vital Signs: Last Vital Signs Temp 98.4 F 03/23/17 15:20 Pulse 96 H 03/23/17 17:25 Resp 20 03/23/17 17:25 BP 114/68 03/23/17 17:25 Pulse Ox 100 03/23/17 15:20 - Labs Result Diagrams: 03/23/17 11:25 03/23/17 11:25 Labs: Laboratory Results - last 24 hr 03/23/17 03/23/17 11:25 11:25 WBC 10.7 RBC 4.80 Hgb 10.2 L Hct 33.2 L MCV 69.2 L MCH 21.3 L MCHC 30.7 L RDW 18.5 H Plt Count 366 MPV 8.5 Neut % (Auto) 51.5 Lymph % (Auto) 37.3 Bertie % (Auto) 7.2 Eos % (Auto) 3.3 Baso % (Auto) 0.7 Neut # 5.5 Lymph # 4.0 Bertie # 0.8 Eos # 0.4 Baso # 0.1 Sodium 138 Potassium 4.1 Chloride 100 Carbon Dioxide 21 L Anion Gap 21 H BUN 8 L Creatinine 0.7 L Est GFR ( Amer) > 60 Est GFR (Non-Af Amer) > 60 Random Glucose 66 L Calcium 8.6 Total Bilirubin 0.7 AST 22 ALT 33 Alkaline Phosphatase 126 Total Protein 7.0 Albumin 3.6 Globulin 3.4 Albumin/Globulin Ratio 1.1
[2017-03-23] MEDS: Heparin25000 units/250ml 1/2NS 25,000 UNITS/250 ML BAG IV PRN (22:06)
[2017-03-24] MEDS: DiphenhydrAMINE 50 mg/ml Inj IVP PRN ×8 (00:11→22:36)
[2017-03-24] MEDS: HYDROmorphone 1 mg/ml ISec IVP PRN ×8 (00:12→22:35)
[2017-03-24 04:28] LABS: HEMATOCRIT 28.7 % (35.0-51.0); MEAN CELL VOLUME 68.9 fL (80.0-94.0); MEAN CORPUSCULAR HEMOGLOBIN 21.5 pg (27.0-31.0); MEAN CORPUSCULAR HGB CONC 31.2 g/dL (33.0-37.0); MEAN PLATELET VOLUME 7.9 fL (7.2-11.7); RED CELL DISTRIBUTION WIDTH 18.6 % (11.5-14.5); WHITE BLOOD COUNT 10.8 K/uL (4.8-10.8)
[2017-03-24] MEDS: Piperacillin/Tazobact 3.375 GM in Sodium Chloride 100 ML IVPB SCH ×3 (04:56→21:58)
[2017-03-24] MEDS: Pantoprazole 40 mg EC Tab PO SCH (09:37)
--- NOTE | 2017-03-24 09:56 | CP.PCM.PN ---
Subjective - Date & Time of Evaluation Date of Evaluation: 03/24/17 Time of Evaluation: 07:15 - Subjective Subjective: Patient seen and examined this morning. Reports he is feeling well. No acute events over night. Scheduled for I&D of gluteal abscess tomorrow AM. Objective - Vital Signs/Intake and Output Vital Signs (last 24 hours): Temp Pulse Resp BP Pulse Ox 98.3 F 88 20 116/77 100 03/24/17 08:55 03/24/17 08:55 03/24/17 08:55 03/24/17 08:55 03/24/17 08:55 Intake and Output: 03/24/17 03/24/17 06:59 18:59 Intake Total 585.5 Output Total 550 Balance 35.5 - Medications Medications: Current Medications Apixaban (Eliquis) 5 mg PO BID [facility] Last Admin: 03/23/17 10:07 Dose: 5 mg Cyanocobalamin (Vitamin B12 1000 Mcg Tab) 1,000 mcg PO DAILY [facility] Last Admin: 03/24/17 09:37 Dose: 1,000 mcg Diphenhydramine HCl (Benadryl) 25 mg IVP Q3 PRN PRN Reason: Itching / Pruritus Last Admin: 03/24/17 09:35 Dose: 25 mg Ferrous Sulfate (Feosol) 325 mg PO BID [facility] Last Admin: 03/24/17 09:36 Dose: 325 mg Hydromorphone HCl (Dilaudid) 1 mg IVP Q3 PRN PRN Reason: Pain, severe (8-10) Last Admin: 03/24/17 09:34 Dose: 1 mg Piperacillin Sod/Tazobactam (Sod 3.375 gm/ Sodium Chloride) 100 mls @ 200 mls/ hr IVPB Q8H [facility] Last Admin: 03/24/17 04:56 Dose: 200 mls/hr Heparin Sodium/Sodium Chloride (Heparin 97472 Units/250ml 1/2 Normal Saline) 25 ,000 units in 250 mls @ 12.773 mls/hr IV .[id number] PRN; Protocol; 22 UNITS/KG/HR PRN Reason: PROTOCOL Last Admin: 03/23/17 22:06 Dose: 22 units/kg/hr, 12.773 mls/hr Mesalamine (Delzicol) 800 mg PO DAILY [facility] Last Admin: 03/24/17 09:36 Dose: 800 mg Pantoprazole Sodium (Protonix Ec Tab) 40 mg PO DAILY [facility] Last Admin: 03/24/17 09:37 Dose: 40 mg - Labs Labs: 03/24/17 04:12 03/23/17 11:25 PT 11.9 SECONDS (9.7-12.2) 03/22/17 21:15 INR 1.0 03/22/17 21:15 APTT 84 SECONDS (21-34) H D 03/24/17 04:12 - Constitutional Appears: No Acute Distress - Head Exam Head Exam: NORMOCEPHALIC - Eye Exam Eye Exam: Normal appearance - ENT Exam ENT Exam: Mucous Membranes Moist - Respiratory Exam Respiratory Exam: NORMAL BREATHING PATTERN - Cardiovascular Exam Cardiovascular Exam: +S1, +S2 - GI/Abdominal Exam GI & Abdominal Exam: Soft - Neurological Exam Neurological Exam: Alert, Awake, Oriented x3 - Skin Skin Exam: Warm Additional comments: skin flunctuant along right medial gluteal region No active drainage from the chronic wound sites Assessment and Plan - Assessment and Plan (Free Text) Assessment: 22M w/ chronic wounds along gluteal and perineal regions 2/2 Chron's disease -Abx -Wound care management -Scheduled for OR tomorrow AM for I&D of right gluteal abscess -PE medical management per primary team -Analgesic -Hold eliquis -hold heparin at least 6 hours prior to OR -DVT/GI ppx -Further recs per Dr. Claudia Rashid PGY-2
[2017-03-24 12:10] LABS: CHLORIDE 97 mmol/L (98-107)
[2017-03-24 12:11] LABS: POTASSIUM 4.3 mmol/L (3.6-5.2); SODIUM 137 mmol/L (132-148)
[2017-03-24 12:13] LABS: BLOOD UREA NITROGEN 9 mg/dL (9-20); CARBON DIOXIDE 26 mmol/L (22-30); GFR AFRICAN-AMERICAN > 60
[2017-03-24 12:14] LABS: CALCIUM 9.1 mg/dl (8.6-10.4); GLUCOSE,RANDOM 81 mg/dL (75-110)
[2017-03-24] MEDS: Heparin25000 units/250ml 1/2NS 25,000 UNITS/250 ML BAG IV PRN (12:45)
--- NOTE | 2017-03-24 17:12 | CP.PCM.PN ---
Subjective - Date & Time of Evaluation Date of Evaluation: 03/24/17 Time of Evaluation: 14:00 - Subjective Subjective: clinically same Objective - Vital Signs/Intake and Output Vital Signs (last 24 hours): Temp Pulse Resp BP Pulse Ox 98.8 F 104 H 20 121/79 97 03/24/17 16:30 03/24/17 16:45 03/24/17 16:30 03/24/17 16:30 03/24/17 16:30 Intake and Output: 03/24/17 03/24/17 06:59 18:59 Intake Total 585.5 452.4 Output Total 550 1200 Balance 35.5 -747.6 - Medications Medications: Current Medications Apixaban (Eliquis) 5 mg PO BID [facility] Last Admin: 03/23/17 10:07 Dose: 5 mg Cyanocobalamin (Vitamin B12 1000 Mcg Tab) 1,000 mcg PO DAILY [facility] Last Admin: 03/24/17 09:37 Dose: 1,000 mcg Diphenhydramine HCl (Benadryl) 25 mg IVP Q3 PRN PRN Reason: Itching / Pruritus Last Admin: 03/24/17 16:09 Dose: 25 mg Ferrous Sulfate (Feosol) 325 mg PO BID [facility] Last Admin: 03/24/17 09:36 Dose: 325 mg Hydromorphone HCl (Dilaudid) 1 mg IVP Q3 PRN PRN Reason: Pain, severe (8-10) Last Admin: 03/24/17 16:09 Dose: 1 mg Piperacillin Sod/Tazobactam (Sod 3.375 gm/ Sodium Chloride) 100 mls @ 200 mls/ hr IVPB Q8H [facility] Last Admin: 03/24/17 12:58 Dose: 200 mls/hr Heparin Sodium/Sodium Chloride (Heparin 06165 Units/250ml 1/2 Normal Saline) 25 ,000 units in 250 mls @ 12.773 mls/hr IV .[id number] PRN; Protocol; 22 UNITS/KG/HR PRN Reason: PROTOCOL Last Admin: 03/24/17 12:45 Dose: 22 units/kg/hr, 12.773 mls/hr Mesalamine (Delzicol) 800 mg PO DAILY [facility] Last Admin: 03/24/17 09:36 Dose: 800 mg Pantoprazole Sodium (Protonix Ec Tab) 40 mg PO DAILY [facility] Last Admin: 03/24/17 09:37 Dose: 40 mg - Labs Labs: 03/24/17 04:12 03/24/17 11:37 PT 11.9 SECONDS (9.7-12.2) 03/22/17 21:15 INR 1.0 03/22/17 21:15 APTT 55 SECONDS (21-34) H D 03/24/17 11:37 - Constitutional Appears: Well - Head Exam Head Exam: ATRAUMATIC, NORMAL INSPECTION, NORMOCEPHALIC - Eye Exam Eye Exam: EOMI, Normal appearance, PERRL Pupil Exam: NORMAL ACCOMODATION, PERRL - ENT Exam ENT Exam: Mucous Membranes Moist, Normal Exam - Neck Exam Neck Exam: Full ROM, Normal Inspection. absent: Lymphadenopathy - Respiratory Exam Respiratory Exam: Decreased Breath Sounds - Cardiovascular Exam Cardiovascular Exam: REGULAR RHYTHM, +S1, +S2 - GI/Abdominal Exam GI & Abdominal Exam: Soft, Diminished Bowel Sounds - Rectal Exam Rectal Exam: Deferred Assessment and Plan - Assessment and Plan (Free Text) Plan: Continue same ID consult IV antibiotic relief docking master called today as patient complained of the chest pain in the setting of pulmonary embolism for which patient is getting her medications blood thinner continue same I and D as per surgery
--- NOTE | 2017-03-24 17:59 | CP.PCM.CON ---
History of Present Illness - History of Present Illness History of Present Illness: 22 year old man came to [facility] for worsening perineal abscess and chest pain. Pain is sharp in character. Worse with inspiration. Not modified by any particular maneuver. Pain is occurring in the setting of small pulmonary embolism. Review of Systems - Review of Systems All systems: reviewed and no additional remarkable complaints except Past Patient History - Infectious Disease Hx of Infectious Diseases: None - Past Medical History & Family History Past Medical History?: Yes - Past Social History Smoking Status: Never Smoked - CARDIAC Hx Cardiac Disorders: No - PULMONARY Hx Respiratory Disorders: No - NEUROLOGICAL Hx Neurological Disorder: No - HEENT Hx HEENT Problems: No - RENAL Hx Chronic Kidney Disease: No - ENDOCRINE/METABOLIC Hx Endocrine Disorders: No - HEMATOLOGICAL/ONCOLOGICAL Hx Blood Disorders: No - INTEGUMENTARY Hx Dermatological Problems: Yes Other/Comment: Perineal wound. Rectal abcess - MUSCULOSKELETAL/RHEUMATOLOGICAL Hx Musculoskeletal Disorders: No Hx Falls: No - GASTROINTESTINAL Hx Gastrointestinal Disorders: Yes Hx Colostomy: Yes Hx Crohn's Disease: Yes (COLOSTOMY 2015) - GENITOURINARY/GYNECOLOGICAL Hx Genitourinary Disorders: No - PSYCHIATRIC Hx Psychophysiologic Disorder: Yes Hx Depression: Yes Hx Substance Use: No - SURGICAL HISTORY Hx Surgeries: Yes (SEE COMMENT) Other/Comment: LOOP COLOSTOMY. Perineal wound. Right upper arm PICC line. COLON RESECTION - ANESTHESIA Hx Anesthesia: Yes Hx Anesthesia Reactions: No Hx Malignant Hyperthermia: No Has any member of the family had a problem w/ anesthesia?: No Meds Allergies/Adverse Reactions: Allergies Allergy/AdvReac Type Severity Reaction Status Date / Time morphine Allergy Severe ITCHING Verified 03/22/17 18:32 - Medications Medications: Current Medications Apixaban (Eliquis) 5 mg PO BID [facility] Last Admin: 03/23/17 10:07 Dose: 5 mg Cyanocobalamin (Vitamin B12 1000 Mcg Tab) 1,000 mcg PO DAILY [facility] Last Admin: 03/24/17 09:37 Dose: 1,000 mcg Diphenhydramine HCl (Benadryl) 25 mg IVP Q3 PRN PRN Reason: Itching / Pruritus Last Admin: 03/24/17 16:09 Dose: 25 mg Ferrous Sulfate (Feosol) 325 mg PO BID [facility] Last Admin: 03/24/17 17:26 Dose: 325 mg Hydromorphone HCl (Dilaudid) 1 mg IVP Q3 PRN PRN Reason: Pain, severe (8-10) Last Admin: 03/24/17 16:09 Dose: 1 mg Piperacillin Sod/Tazobactam (Sod 3.375 gm/ Sodium Chloride) 100 mls @ 200 mls/ hr IVPB Q8H [facility] Last Admin: 03/24/17 12:58 Dose: 200 mls/hr Heparin Sodium/Sodium Chloride (Heparin 02223 Units/250ml 1/2 Normal Saline) 25 ,000 units in 250 mls @ 12.773 mls/hr IV .[id number] PRN; Protocol; 22 UNITS/KG/HR PRN Reason: PROTOCOL Last Admin: 03/24/17 12:45 Dose: 22 units/kg/hr, 12.773 mls/hr Mesalamine (Delzicol) 800 mg PO DAILY [facility] Last Admin: 03/24/17 09:36 Dose: 800 mg Pantoprazole Sodium (Protonix Ec Tab) 40 mg PO DAILY [facility] Last Admin: 03/24/17 09:37 Dose: 40 mg Physical Exam - Constitutional Appears: Well, Non-toxic - Head Exam Head Exam: ATRAUMATIC, NORMAL INSPECTION - Eye Exam Eye Exam: PERRL. absent: Scleral icterus - ENT Exam ENT Exam: Mucous Membranes Moist, Normal External Ear Exam - Neck Exam Neck exam: Positive for: Full Rom. Negative for: Thyromegaly - Respiratory Exam Respiratory Exam: NORMAL BREATHING PATTERN. absent: Accessory Muscle Use - Cardiovascular Exam Cardiovascular Exam: REGULAR RHYTHM, RRR, +S1, +S2. absent: JVD - GI/Abdominal Exam GI & Abdominal Exam: Normal Bowel Sounds Additional comments: +ostomy - Neurological Exam Neurological exam: CN II-XII Intact, Oriented x3 - Psychiatric Exam Psychiatric exam: Normal Affect, Normal Mood Results - Vital Signs Recent Vital Signs: Last Vital Signs Temp 98.8 F 03/24/17 16:30 Pulse 104 H 03/24/17 16:45 Resp 20 03/24/17 16:30 BP 121/79 03/24/17 16:30 Pulse Ox 97 03/24/17 16:30 - Labs Result Diagrams: 03/24/17 04:12 03/24/17 11:37 Labs: Laboratory Results - last 24 hr 03/23/17 03/24/17 03/24/17 21:25 04:12 04:12 WBC 10.8 RBC 4.16 L Hgb 9.0 L Hct 28.7 L MCV 68.9 L MCH 21.5 L MCHC 31.2 L RDW 18.6 H Plt Count 374 MPV 7.9 APTT 24 84 H D Sodium Potassium Chloride Carbon Dioxide Anion Gap BUN Creatinine Est GFR ( Amer) Est GFR (Non-Af Amer) Random Glucose Calcium 03/24/17 03/24/17 11:37 11:37 WBC RBC Hgb Hct MCV MCH MCHC RDW Plt Count MPV APTT 55 H D Sodium 137 Potassium 4.3 Chloride 97 L Carbon Dioxide 26 Anion Gap 18 BUN 9 Creatinine 0.8 Est GFR ( Amer) > 60 Est GFR (Non-Af Amer) > 60 Random Glucose 81 Calcium 9.1 - EKG Data EKG Interpreted by: Myself EKG shows normal: Sinus rhythm - Imaging and Cardiology Chest x-ray Additional comment: No infiltrates or effusions Assessment & Plan - Assessment and Plan (Free Text) Assessment: 22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 NO FURTHER CARDIAC WORK UP REQUIRED FOR THIS SURGERY. Pulmonary Embolism - small, check 2D echo for evidence of RV strain but very unlikely due to small clot burden. Agree with [facility] for anticoagulation Crohnes disease immune modulation, ostomy
[2017-03-25] MEDS: DiphenhydrAMINE 50 mg/ml Inj IVP PRN ×6 (01:46→23:41)
[2017-03-25] MEDS: HYDROmorphone 1 mg/ml ISec IVP PRN ×6 (01:47→23:42)
[2017-03-25] MEDS: Piperacillin/Tazobact 3.375 GM in Sodium Chloride 100 ML IVPB SCH ×3 (04:46→20:40)
[2017-03-25 07:09] LABS: BASO # 0.1 K/uL (0.0-0.2); BASO % 0.6 % (0.0-2.0); EOS # 0.5 K/uL (0.0-0.7); HEMATOCRIT 32.6 % (35.0-51.0); LYMPH % 33.7 % (20.0-40.0); MEAN CELL VOLUME 68.6 fL (80.0-94.0); MEAN CORPUSCULAR HEMOGLOBIN 21.1 pg (27.0-31.0); MEAN CORPUSCULAR HGB CONC 30.7 g/dL (33.0-37.0); MEAN PLATELET VOLUME 7.6 fL (7.2-11.7); MONO # 0.6 K/uL (0.0-0.8); RED CELL DISTRIBUTION WIDTH 18.5 % (11.5-14.5)
[2017-03-25 07:39] LABS: CHLORIDE 98 mmol/L (98-107); POTASSIUM 4.3 mmol/L (3.6-5.2); SODIUM 139 mmol/L (132-148)
[2017-03-25 07:42] LABS: BLOOD UREA NITROGEN 10 mg/dL (9-20); CARBON DIOXIDE 27 mmol/L (22-30); GFR AFRICAN-AMERICAN > 60; GLUCOSE,RANDOM 87 mg/dL (75-110)
[2017-03-25] MEDS ORDERED: Magnesium Hydroxide Susp 30 ml UD PO ONE (08:15)
[2017-03-25] MEDS ORDERED: Lidocaine 1% Inj (20ml) ONE (08:59)
[2017-03-25] MEDS ORDERED: Bupivacaine-Epi 0.25%-1:200,000 PF Inj ONE (08:59)
--- NOTE | 2017-03-25 08:59 | PCM.SURG1 ---
Surgeon's Initial Post Op Note - Surgeon's Notes Surgeon: Brenda Hair Spinner: None Type of Anesthesia: Local Pre-Operative Diagnosis: IBD and need for IV access. Operative Findings: Patent right brachial vein. Central occlusion or narrowing suspected as guidewire failed to extend to the SVC Post-Operative Diagnosis: IBD and need for IV access. Operation Performed: Right brachial vein 22cm 4F Sl PICC placed with the tip in the right subclavian vein. Specimen/Specimens Removed: None Estimated Blood Loss: EBL {In ML}: 1 Date of Surgery/Procedure: 03/25/17 Time of Surgery/Procedure: 08:40
[2017-03-25] MEDS ORDERED: Midazolam 2 MG/2 ML VIAL ONE (10:11)
[2017-03-25] MEDS ORDERED: Propofol 10 mg/ml Inj (20 ML) ONE (10:11)
[2017-03-25] MEDS ORDERED: Piperacillin/Tazobact 3.375 gm 100 ML IVPB ONE (10:15)
[2017-03-25] MEDS ORDERED: Lactated Ringer's 1,000 ML IV ONE (10:15)
--- NOTE | 2017-03-25 11:05 | PCM.SURG1 ---
Surgeon's Initial Post Op Note - Surgeon's Notes Surgeon: Claudia KUMARI Enforcement Officer: PGY4; Dilip OMS3 Type of Anesthesia: IV Sedation, Local Pre-Operative Diagnosis: Crohns Disease, Fiona Rectal Abscess Operative Findings: No pus found on exploration, fluid collection drained, left open for secondary intention. Culture taken from superior gluteal cleft. Post-Operative Diagnosis: Crohns Disease, Gluteal Abscess Operation Performed: Incision and drainage of gluteal fluid collection. Revision of scar. Specimen/Specimens Removed: Scar tissue. Culture. Estimated Blood Loss: EBL {In ML}: 10 Blood Products Given: N/A Drains Used: No Drains Post-Op Condition: Good Date of Surgery/Procedure: 03/25/17 Time of Surgery/Procedure: 10:30
[2017-03-25] MEDS: HYDROmorphone 0.5 mg/0.5 ml ISec IVP PRN ×3 (11:30→11:51)
--- NOTE | 2017-03-25 11:31 | CP.PCM.PN ---
Subjective - Date & Time of Evaluation Date of Evaluation: 03/25/17 Time of Evaluation: 12:40 - Subjective Subjective: clinically same Objective - Vital Signs/Intake and Output Vital Signs (last 24 hours): Temp Pulse Resp BP Pulse Ox 97 F L 83 18 114/62 100 03/25/17 10:58 03/25/17 11:15 03/25/17 11:15 03/25/17 11:15 03/25/17 11:15 Intake and Output: 03/25/17 03/25/17 06:59 18:59 Intake Total 700 100 Balance 700 100 - Medications Medications: Current Medications Acetaminophen (Tylenol 325mg Tab) 975 mg PO Q8 [facility] Apixaban (Eliquis) 5 mg PO BID [facility] Last Admin: 03/23/17 10:07 Dose: 5 mg Cyanocobalamin (Vitamin B12 1000 Mcg Tab) 1,000 mcg PO DAILY [facility] Last Admin: 03/24/17 09:37 Dose: 1,000 mcg Diphenhydramine HCl (Benadryl) 25 mg IVP Q3 PRN PRN Reason: Itching / Pruritus Last Admin: 03/25/17 04:44 Dose: 25 mg Ferrous Sulfate (Feosol) 325 mg PO BID [facility] Last Admin: 03/24/17 17:26 Dose: 325 mg Hydromorphone HCl (Dilaudid) 1 mg IVP Q3 PRN PRN Reason: Pain, severe (8-10) Last Admin: 03/25/17 04:45 Dose: 1 mg Hydromorphone HCl (Dilaudid) 0.5 mg IVP Q10M PRN PRN Reason: Pain, moderate (4-7) Piperacillin Sod/Tazobactam (Sod 3.375 gm/ Sodium Chloride) 100 mls @ 200 mls/ hr IVPB Q8H [facility] Last Admin: 03/25/17 04:46 Dose: 200 mls/hr Heparin Sodium/Sodium Chloride (Heparin 50572 Units/250ml 1/2 Normal Saline) 25 ,000 units in 250 mls @ 12.773 mls/hr IV .[id number] PRN; Protocol; 22 UNITS/KG/HR PRN Reason: PROTOCOL Last Admin: 03/24/17 12:45 Dose: 22 units/kg/hr, 12.773 mls/hr Mesalamine (Delzicol) 800 mg PO DAILY [facility] Last Admin: 03/24/17 09:36 Dose: 800 mg Ondansetron HCl (Zofran Inj) 4 mg IVP ONCE PRN PRN Reason: Nausea/Vomiting Stop: 03/25/17 12:26 Pantoprazole Sodium (Protonix Ec Tab) 40 mg PO DAILY [facility] Last Admin: 03/24/17 09:37 Dose: 40 mg - Labs Labs: 03/25/17 07:03 03/25/17 07:03 PT 11.5 SECONDS (9.7-12.2) 03/25/17 07:03 INR 1.0 03/25/17 07:03 APTT 29 SECONDS (21-34) D 03/25/17 07:03 - Constitutional Appears: Well - Head Exam Head Exam: ATRAUMATIC, NORMAL INSPECTION, NORMOCEPHALIC - Eye Exam Eye Exam: EOMI, Normal appearance, PERRL Pupil Exam: NORMAL ACCOMODATION, PERRL - ENT Exam ENT Exam: Mucous Membranes Moist, Normal Exam - Neck Exam Neck Exam: Full ROM, Normal Inspection. absent: Lymphadenopathy - Respiratory Exam Respiratory Exam: Decreased Breath Sounds - Cardiovascular Exam Cardiovascular Exam: REGULAR RHYTHM, +S1, +S2 - GI/Abdominal Exam GI & Abdominal Exam: Soft, Diminished Bowel Sounds - Rectal Exam Rectal Exam: Deferred Assessment and Plan - Assessment and Plan (Free Text) Plan: Status post surgery follow-up with the GI follow-up with the septic workup next continue same follow-up with the surgery follow-up with the GI
[2017-03-25] MEDS: Pantoprazole 40 mg EC Tab PO SCH (12:38)
--- NOTE | 2017-03-25 12:43 | CARD ---
APPROVED REPORT EXAM: Two-dimensional and M-mode echocardiogram with Doppler and color Doppler. Other Information Quality : GoodRhythm : NSR INDICATION Pulmonary Embolism CARDIAC CLEARANCE, FEVER 2D DIMENSIONS IVSd0.9 (0.7-1.1cm)LVDd3.8 (3.9-5.9cm) LVOT Diameter1.4 (1.8-2.4cm)PWd0.8 (0.7-1.1cm) IVSs1.1 (0.8-1.2cm)LVDs2.6 (2.5-4.0cm) FS (%) 31.7 %PWs1.2 (0.8-1.2cm) LVEF (%)60.5 (>50%) M-Mode DIMENSIONS RVDd1.54 (2.1-3.2cm)Left Atrium (MM)2.55 (2.5-4.0cm) IVSd0.65 (0.7-1.1cm)Aortic Root2.37 (2.2-3.7cm) LVDd4.27 (4.0-5.6cm)Aortic Cusp Exc.1.74 (1.5-2.0cm) PWd0.73 (0.7-1.1cm)FS (%) 35 % LVDs2.79 (2.0-3.8cm)LVEF (%)64 (>50%) Aortic Valve AoV Peak Troglkwb354.6cm/sAoV VTI21.1cmAO Peak GR.5mmHg LVOT Peak Tbvwqjnw38.0cm/Vinnie Mean GR.3mmHgAVA (VMAX)1.50cm2 Mitral Valve MV E Qhvacedp25.9cm/sMV A Drptwljw17.3cm/sE/A ratio1.3 TDI E/Lateral E'0.0E/Medial E'0.0 Pulmonary Valve PV Peak Mchevzmt81.1cm/sPV Peak Grad.4mmHg Tricuspid Valve TR Peak Ddxrsjkv180pv/sTR Peak Gr.89jrPlIFSJ30mkLz LEFT VENTRICLE The left ventricle is normal size. There is normal left ventricular wall thickness. Left ventricle systolic function is normal. The Ejection Fraction is 65-70%. There is normal LV segmental wall motion. The left ventricular diastolic function is normal. There is no ventricular septal defect visualized. RIGHT VENTRICLE The right ventricle is normal size. The right ventricular systolic function is normal. ATRIA The left atrium size is normal. The right atrium size is normal. AORTIC VALVE The aortic valve is tri-cuspid. The aortic valve is normal in structure. No aortic regurgitation is present. There is no aortic valvular stenosis. MITRAL VALVE The mitral valve is normal in structure. There is no evidence of mitral valve prolapse. There is no mitral valve regurgitation noted. TRICUSPID VALVE The tricuspid valve is normal in structure. There is trace tricuspid regurgitation. Right ventricular systolic pressure is estimated at less than 30 mmHg. There is no pulmonary hypertension. PULMONIC VALVE The pulmonary valve is normal in structure. There is trace pulmonic valvular regurgitation. GREAT VESSELS The IVC is normal in size and collapses >50% with inspiration. PERICARDIAL EFFUSION There is a trace circumferential pericardial effusion. <Conclusion> Left ventricle systolic function is normal. The Ejection Fraction is 65-70%. The left ventricular diastolic function is normal. There is trace tricuspid regurgitation. There is a trace circumferential pericardial effusion.
[2017-03-25] MEDS ORDERED: Sodium Chloride 0.9% 500 ML IV ONE (14:21)
[2017-03-25 15:15] LABS: BASO # 0.1 K/uL (0.0-0.2); BASO % 0.6 % (0.0-2.0); EOS # 0.3 K/uL (0.0-0.7); EOS % 2.9 % (0.0-4.0); HEMATOCRIT 28.8 % (35.0-51.0); LYMPH # 2.6 K/uL (1.0-4.3); LYMPH % 23.7 % (20.0-40.0); MEAN CELL VOLUME 68.8 fL (80.0-94.0); MEAN CORPUSCULAR HGB CONC 30.5 g/dL (33.0-37.0); MEAN PLATELET VOLUME 7.8 fL (7.2-11.7); MONO # 0.6 K/uL (0.0-0.8); MONO % 5.5 % (0.0-10.0); RED CELL DISTRIBUTION WIDTH 18.3 % (11.5-14.5); WHITE BLOOD COUNT 10.8 K/uL (4.8-10.8)
[2017-03-25 15:21] LABS: CHLORIDE 100 mmol/L (98-107)
[2017-03-25 15:22] LABS: SODIUM 138 mmol/L (132-148)
[2017-03-25 15:23] LABS: POTASSIUM 3.7 mmol/L (3.6-5.2)
[2017-03-25 15:25] LABS: ALKALINE PHOSPHATASE 94 U/L (38-126); ALT/SGPT 24 U/L (21-72); AST/SGOT 18 U/L (17-59); BILIRUBIN,TOTAL 0.4 mg/dL (0.2-1.3); BLOOD UREA NITROGEN 9 mg/dL (9-20); CARBON DIOXIDE 26 mmol/L (22-30); GFR AFRICAN-AMERICAN > 60; GLUCOSE,RANDOM 123 mg/dL (75-110); INR 1.1; TOTAL PROTEIN 6.8 g/dL (6.3-8.3)
[2017-03-25 15:26] LABS: CALCIUM 8.2 mg/dl (8.6-10.4)
--- NOTE | 2017-03-25 16:51 | CP.PCM.CON ---
History of Present Illness - History of Present Illness History of Present Illness: 22 year old man came to [facility] for worsening perineal abscess and chest pain. Pain is sharp in character. Worse with inspiration. Not modified by any particular maneuver. Pain is occurring in the setting of small pulmonary embolism. Review of Systems - Constitutional Constitutional: As Per HPI - EENT Eyes: absent: As Per HPI, Blind Spots, Blurred Vision, Change in Vision, Decreased Night Vision, Diplopia, Discharge, Dry Eye, Exophthalmos, Floaters, Irritation, Itchy Eyes, Loss of Peripheral Vision, Pain, Photophobia, Requires Corrective Lenses, Sees Flashes, Spots in Vision, Tunnel Vision, Other Visual Disturbances, Loss of Vision, Other Ears: absent: As Per HPI, Decreased Hearing, Ear Discharge, Ear Pain, Tinnitus, Abnormal Hearing, Disequilibrium, Dizziness, Other Nose/Mouth/Throat: absent: As Per HPI, Epistaxis, Nasal Congestion, Nasal Discharge, Nasal Obstruction, Nasal Trauma, Nose Pain, Post Nasal Drip, Sinus Pain, Sinus Pressure, Bleeding Gums, Change in Voice, Dental Pain, Dry Mouth, Dysphagia, Halitosis, Hoarsness, Lip Swelling, Mouth Lesions, Mouth Pain, Odynophagia, Sore Throat, Throat Swelling, Tongue Swelling, Facial Pain, Neck Pain, Neck Mass, Other - Cardiovascular Cardiovascular: absent: As Per HPI, Acrocyanosis, Chest Pain, Chest Pain at Rest , Chest Pain with Activity, Claudication, Diaphoresis, Dyspnea, Dyspnea on Exertion, Edema, Irregular Heart Rhythm, Pain Radiating to Arm/Neck/Jaw, Leg Edema, Leg Ulcers, Lightheadedness, Orthopnea, Palpitations, Paroxysmal Nocturnal Dyspnea, Pedal Edema, Radiating Pain, Rapid Heart Rate, Slow Heart Rate, Syncope, Other - Respiratory Respiratory: absent: As Per HPI, Cough, Dyspnea, Hemoptysis, Dyspnea on Exertion , Wheezing, Snoring, Stridor, Pain on Inspiration, Chest Congestion, Excessive Mucous Production, Change in Mucous Color, Pain with Coughing, Other - Genitourinary Genitourinary: absent: As Per HPI, Change in Urinary Stream, Difficulty Urinating, Dysuria, Flank Pain, Hematuria, Pyuria, Nocturia, Urinary Incontinence, Urinary Frequency, Urinary Hesitance, Urinary Urgency, Voiding Freq/Small Amts, Freq UTI, Hx Renal/Bladder Calculi, Hx /Renal Surgery, Bladder Distension, Other - Musculoskeletal Musculoskeletal: As Per HPI - Integumentary Integumentary: As Per HPI, Skin Pain, Wounds - Neurological Neurological: absent: As Per HPI, Abnormal Gait, Abnormal Hearing, Abnormal Movements, Abnormal Speech, Behavioral Changes, Burning Sensations, Confusion, Convulsions, Disequilibrium, Dizziness, Numbness, Focal Weakness, Frequent Falls , Headaches, Lack of Coordination, Loss of Vision, Memory Loss, Paresthesias, Radicular Pain, Restless Legs, Sensory Deficit, Syncope, Tingling, Tremor, Vertigo, Weakness, Other Visual Disturbances, Other - Psychiatric Psychiatric: absent: As Per HPI, Abnormal Sleep Pattern, Anhedonia, Anxiety, Auditory Hallucinations, Behavioral Changes, Change in Appetite, Change in Libido, Confusion, Depression, Difficulty Concentrating, Hallucinations, Homicidal Ideation, Hopelessness, Irritability, Memory Loss, Mood Swings, Panic Attacks, Paranoia, Suicidal Ideation, Visual Hallucinations, Tactile Hallucinations, Other - Endocrine Endocrine: absent: As Per HPI, Change in Body Appearance, Change in Libido, Cold Intolorance, Deepening of Voice, Excessive Sweating, Fatigue, Flushing, Heat Intolorance, Increase in Ring/Shoe/Hat Size, Palpitations, Polydipsia, Polyphagia, Polyuria, Other - Hematologic/Lymphatic Hematologic: absent: As Per HPI, Easy Bleeding, Easy Bruising, Lymphadenopathy, Other Past Patient History - Infectious Disease Hx of Infectious Diseases: None - Past Medical History & Family History Past Medical History?: Yes - Past Social History Smoking Status: Never Smoked - CARDIAC Hx Cardiac Disorders: No - PULMONARY Hx Respiratory Disorders: No - NEUROLOGICAL Hx Neurological Disorder: No - HEENT Hx HEENT Problems: No - RENAL Hx Chronic Kidney Disease: No - ENDOCRINE/METABOLIC Hx Endocrine Disorders: No - HEMATOLOGICAL/ONCOLOGICAL Hx Blood Disorders: No - INTEGUMENTARY Hx Dermatological Problems: Yes Other/Comment: Perineal wound. Rectal abcess - MUSCULOSKELETAL/RHEUMATOLOGICAL Hx Musculoskeletal Disorders: No Hx Falls: No - GASTROINTESTINAL Hx Gastrointestinal Disorders: Yes Hx Colostomy: Yes Hx Crohn's Disease: Yes (COLOSTOMY 2015) - GENITOURINARY/GYNECOLOGICAL Hx Genitourinary Disorders: No - PSYCHIATRIC Hx Psychophysiologic Disorder: Yes Hx Depression: Yes Hx Substance Use: No - SURGICAL HISTORY Hx Surgeries: Yes (SEE COMMENT) Other/Comment: LOOP COLOSTOMY. Perineal wound. Right upper arm PICC line. COLON RESECTION - ANESTHESIA Hx Anesthesia: Yes Hx Anesthesia Reactions: No Hx Malignant Hyperthermia: No Has any member of the family had a problem w/ anesthesia?: No Meds Allergies/Adverse Reactions: Allergies Allergy/AdvReac Type Severity Reaction Status Date / Time morphine Allergy Severe ITCHING Verified 03/22/17 18:32 - Medications Medications: Current Medications Acetaminophen (Tylenol 325mg Tab) 975 mg PO Q8 [facility] Last Admin: 03/25/17 14:32 Dose: 975 mg Apixaban (Eliquis) 5 mg PO BID [facility] Last Admin: 03/23/17 10:07 Dose: 5 mg Cyanocobalamin (Vitamin B12 1000 Mcg Tab) 1,000 mcg PO DAILY [facility] Last Admin: 03/25/17 12:40 Dose: 1,000 mcg Diphenhydramine HCl (Benadryl) 25 mg IVP Q3 PRN PRN Reason: Itching / Pruritus Last Admin: 03/25/17 14:21 Dose: 25 mg Ferrous Sulfate (Feosol) 325 mg PO BID [facility] Last Admin: 03/25/17 12:39 Dose: 325 mg Heparin Sodium (Porcine) (Heparin) 4,600 units 80 units/kg (4600 units) IV ONCE ONE Stop: 03/25/17 20:01 Hydromorphone HCl (Dilaudid) 1 mg IVP Q3 PRN PRN Reason: Pain, severe (8-10) Last Admin: 03/25/17 14:22 Dose: 0.5 mg Hydromorphone HCl (Dilaudid) 0.5 mg IVP Q10M PRN PRN Reason: Pain, moderate (4-7) Last Admin: 03/25/17 11:51 Dose: 0.5 mg Piperacillin Sod/Tazobactam (Sod 3.375 gm/ Sodium Chloride) 100 mls @ 200 mls/ hr IVPB Q8H [facility] Last Admin: 03/25/17 12:38 Dose: 200 mls/hr Heparin Sodium/Sodium Chloride (Heparin 86169 Units/250ml 1/2 Normal Saline) 25 ,000 units in 250 mls @ 10.451 mls/hr IV .[id number] PRN; Protocol; 18 UNITS/KG/HR PRN Reason: PROTOCOL Mesalamine (Delzicol) 800 mg PO DAILY [facility] Last Admin: 03/25/17 12:40 Dose: 800 mg Pantoprazole Sodium (Protonix Ec Tab) 40 mg PO DAILY [facility] Last Admin: 03/25/17 12:38 Dose: 40 mg Physical Exam - Constitutional Appears: Non-toxic, Chronically Ill - Head Exam Head Exam: ATRAUMATIC, NORMAL INSPECTION, NORMOCEPHALIC - Eye Exam Eye Exam: PERRL. absent: Scleral icterus - ENT Exam ENT Exam: Mucous Membranes Dry, Normal External Ear Exam - Neck Exam Neck exam: Negative for: Lymphadenopathy - Respiratory Exam Respiratory Exam: Decreased Breath Sounds, Clear to Auscultation Bilateral - Cardiovascular Exam Cardiovascular Exam: REGULAR RHYTHM, +S1, +S2 - GI/Abdominal Exam GI & Abdominal Exam: Diminished Bowel Sounds, Soft. absent: Tenderness - Rectal Exam Rectal Exam: Deferred - Exam Exam: NORMAL INSPECTION - Extremities Exam Extremities exam: Positive for: pedal pulses present. Negative for: calf tenderness, pedal edema, tenderness - Back Exam Back exam: absent: CVA tenderness (L), CVA tenderness (R), paraspinal tenderness - Neurological Exam Neurological exam: Alert, CN II-XII Intact, Oriented x3 - Psychiatric Exam Psychiatric exam: Depressed - Skin Skin Exam: Dry Results - Vital Signs Recent Vital Signs: Last Vital Signs Temp 98.5 F 03/25/17 15:06 Pulse 114 H 03/25/17 15:06 Resp 18 03/25/17 15:06 BP 100/71 03/25/17 15:06 Pulse Ox 99 03/25/17 15:06 - Labs Result Diagrams: 03/25/17 15:09 03/25/17 15:09 Labs: Laboratory Results - last 24 hr 03/25/17 03/25/17 03/25/17 07:03 07:03 07:03 WBC 9.0 RBC 4.75 Hgb 10.0 L Hct 32.6 L MCV 68.6 L MCH 21.1 L MCHC 30.7 L RDW 18.5 H Plt Count 398 MPV 7.6 Neut % (Auto) 53.7 Lymph % (Auto) 33.7 [place] % (Auto) 7.0 Eos % (Auto) 5.0 H Baso % (Auto) 0.6 Neut # 4.8 Lymph # 3.0 [place] # 0.6 Eos # 0.5 Baso # 0.1 PT 11.5 INR 1.0 APTT 29 D Sodium 139 Potassium 4.3 Chloride 98 Carbon Dioxide 27 Anion Gap 19 BUN 10 Creatinine 0.8 Est GFR ( Amer) > 60 Est GFR (Non-Af Amer) > 60 Random Glucose 87 Calcium 9.0 Total Bilirubin AST ALT Alkaline Phosphatase Total Protein Albumin Globulin Albumin/Globulin Ratio 03/25/17 03/25/17 03/25/17 15:09 15:09 15:09 WBC 10.8 RBC 4.18 L Hgb 8.8 L Hct 28.8 L MCV 68.8 L MCH 21.0 L MCHC 30.5 L RDW 18.3 H Plt Count 343 MPV 7.8 Neut % (Auto) 67.3 Lymph % (Auto) 23.7 [place] % (Auto) 5.5 Eos % (Auto) 2.9 Baso % (Auto) 0.6 Neut # 7.3 H Lymph # 2.6 [place] # 0.6 Eos # 0.3 Baso # 0.1 PT 12.0 INR 1.1 APTT 27 Sodium 138 Potassium 3.7 Chloride 100 Carbon Dioxide 26 Anion Gap 16 BUN 9 Creatinine 0.8 Est GFR ( Amer) > 60 Est GFR (Non-Af Amer) > 60 Random Glucose 123 H Calcium 8.2 L Total Bilirubin 0.4 AST 18 ALT 24 Alkaline Phosphatase 94 Total Protein 6.8 Albumin 3.4 L Globulin 3.4 Albumin/Globulin Ratio 1.0 Assessment & Plan (1) Abdominal pain Status: Acute (2) Abscess Status: Acute (3) Crohn disease Status: Acute (4) DVT (deep venous thrombosis) Status: Acute (5) Wound of right buttock Status: Acute (6) Pulmonary embolism Status: Acute
--- NOTE | 2017-03-25 20:06 | OP ---
PROCEDURE DATE: 03/25/2017 PREOPERATIVE DIAGNOSES: 1. Crohn's disease with multiple perineal wound. 2. Perineal abscess. POSTOPERATIVE DIAGNOSES: 1. Crohn's disease with multiple perineal wound. 2. Perineal abscess. 3. Right gluteal collection. PROCEDURE DONE: 1. Incision and drainage of right gluteal collection. 2. Excision of the old scar at approximately 4 x 2 cm size. SURGEON: Dr. Temo Taylor TYPE OF ANESTHESIA: General endotracheal tube anesthesia. ESTIMATED BLOOD LOSS: Around 10 mL. DRAINS: None. PATHOLOGY: 1. The pus was sent for culture and sensitivity. 2. Excised scar tissue, was sent for the pathology. COMPLICATIONS: None. INTRAOPERATIVE FINDINGS: The patient had right gluteal fluid collection and the patient also had multiple perineal wound and the patient had thickened scar tissue of the right gluteal region. DESCRIPTION OF PROCEDURE: On intraoperative steps, this is a 22-year-old male who was diagnosed with Crohn's disease and multiple perineal wound. The patient also had multiple debridement as well as abscess drainage done before and again the patient was presented with right gluteal lump with fluid collection and pus drainage and surgery was consulted and the patient was consented for incision and drainage and debridement, who was brought to the OR, placed supine on the operating table. After induction of anesthesia, the patient was placed in right lateral position and right gluteal area was prepped and draped as well as perineal area and the local anesthesia was injected and first elliptical incision was made surrounding the scar tissue of the right gluteal area. The old scar was completely excised. The cavity was entered and fluid collection was drained and there was a first discharge from the upper part of the perineal wound that was sent for the culture and sensitivity and after that the wound was irrigated and wound was packed with Iodoform packing and dry sterile dressing was applied. The patient tolerated the procedure well. Count of the instrument was correct. There was no apparent complication. Temo Taylor MD
[2017-03-25] MEDS: Heparin25000 units/250ml 1/2NS 25,000 UNITS/250 ML BAG IV PRN (21:56)
[2017-03-26] MEDS: DiphenhydrAMINE 50 mg/ml Inj IVP PRN ×7 (02:41→20:59)
[2017-03-26] MEDS: HYDROmorphone 1 mg/ml ISec IVP PRN ×7 (02:42→21:00)
[2017-03-26 04:43] LABS: BASO # 0.1 K/uL (0.0-0.2); BASO % 0.8 % (0.0-2.0); EOS # 0.5 K/uL (0.0-0.7); EOS % 5.9 % (0.0-4.0); HEMATOCRIT 30.1 % (35.0-51.0); LYMPH # 3.3 K/uL (1.0-4.3); LYMPH % 37.5 % (20.0-40.0); MEAN CELL VOLUME 68.9 fL (80.0-94.0); MEAN CORPUSCULAR HEMOGLOBIN 21.4 pg (27.0-31.0); MEAN CORPUSCULAR HGB CONC 31.1 g/dL (33.0-37.0); MONO # 0.6 K/uL (0.0-0.8); MONO % 6.5 % (0.0-10.0); RED CELL DISTRIBUTION WIDTH 18.2 % (11.5-14.5); WHITE BLOOD COUNT 8.9 K/uL (4.8-10.8)
[2017-03-26 04:54] LABS: CHLORIDE 101 mmol/L (98-107)
[2017-03-26 04:55] LABS: POTASSIUM 4.1 mmol/L (3.6-5.2); SODIUM 138 mmol/L (132-148)
[2017-03-26 04:57] LABS: AST/SGOT 19 U/L (17-59); BILIRUBIN,TOTAL 0.5 mg/dL (0.2-1.3); CARBON DIOXIDE 23 mmol/L (22-30); GFR AFRICAN-AMERICAN > 60; TOTAL PROTEIN 7.1 g/dL (6.3-8.3)
[2017-03-26 04:58] LABS: ALKALINE PHOSPHATASE 108 U/L (38-126); ALT/SGPT 31 U/L (21-72); BLOOD UREA NITROGEN 9 mg/dL (9-20); CALCIUM 8.5 mg/dl (8.6-10.4); GLUCOSE,RANDOM 84 mg/dL (75-110)
[2017-03-26] MEDS: Piperacillin/Tazobact 3.375 GM in Sodium Chloride 100 ML IVPB SCH ×3 (04:59→20:54)
[2017-03-26] MEDS: Pantoprazole 40 mg EC Tab PO SCH (09:08)
--- NOTE | 2017-03-26 10:08 | CP.PCM.PN ---
Subjective - Date & Time of Evaluation Date of Evaluation: 03/26/17 Time of Evaluation: 08:15 - Subjective Subjective: General Surgery- Dr. Taylor Pt S&E at bedside this AM. No acute events overnight. Pt tolerating diet. Ostomy pink and patent. Denies F/C SOB/CP N/V. Objective - Vital Signs/Intake and Output Vital Signs (last 24 hours): Temp Pulse Resp BP Pulse Ox 97.7 F 75 18 110/73 100 03/26/17 07:10 03/26/17 07:10 03/26/17 07:10 03/26/17 07:10 03/26/17 07:10 Intake and Output: 03/26/17 03/26/17 06:59 18:59 Intake Total 250.4 180 Output Total 100 Balance 150.4 180 - Medications Medications: Current Medications Acetaminophen (Tylenol 325mg Tab) 975 mg PO Q8 [facility] Last Admin: 03/25/17 21:50 Dose: 975 mg Apixaban (Eliquis) 5 mg PO BID [facility] Last Admin: 03/23/17 10:07 Dose: 5 mg Cyanocobalamin (Vitamin B12 1000 Mcg Tab) 1,000 mcg PO DAILY [facility] Last Admin: 03/26/17 09:08 Dose: 1,000 mcg Diphenhydramine HCl (Benadryl) 25 mg IVP Q3 PRN PRN Reason: Itching / Pruritus Last Admin: 03/26/17 08:42 Dose: 25 mg Ferrous Sulfate (Feosol) 325 mg PO BID [facility] Last Admin: 03/26/17 09:08 Dose: 325 mg Hydromorphone HCl (Dilaudid) 1 mg IVP Q3 PRN PRN Reason: Pain, severe (8-10) Last Admin: 03/26/17 08:43 Dose: 1 mg Hydromorphone HCl (Dilaudid) 0.5 mg IVP Q10M PRN PRN Reason: Pain, moderate (4-7) Last Admin: 03/25/17 11:51 Dose: 0.5 mg Piperacillin Sod/Tazobactam (Sod 3.375 gm/ Sodium Chloride) 100 mls @ 200 mls/ hr IVPB Q8H [facility] Last Admin: 03/26/17 04:59 Dose: 200 mls/hr Heparin Sodium/Sodium Chloride (Heparin 73333 Units/250ml 1/2 Normal Saline) 25 ,000 units in 250 mls @ 10.451 mls/hr IV .[id number] PRN; Protocol; 18 UNITS/KG/HR PRN Reason: PROTOCOL Last Admin: 03/25/17 21:56 Dose: 18 units/kg/hr, 10.451 mls/hr Mesalamine (Delzicol) 800 mg PO DAILY [facility] Last Admin: 03/26/17 09:08 Dose: 800 mg Pantoprazole Sodium (Protonix Ec Tab) 40 mg PO DAILY [facility] Last Admin: 03/26/17 09:08 Dose: 40 mg - Labs Labs: 03/26/17 04:38 03/26/17 04:38 PT 12.0 SECONDS (9.7-12.2) 03/25/17 15:09 INR 1.1 03/25/17 15:09 APTT 61 SECONDS (21-34) H D 03/26/17 04:38 - Constitutional Appears: Well, No Acute Distress - Eye Exam Eye Exam: EOMI - Respiratory Exam Respiratory Exam: NORMAL BREATHING PATTERN. absent: Accessory Muscle Use, Rhonchi, Wheezes - Cardiovascular Exam Cardiovascular Exam: REGULAR RHYTHM, +S1, +S2 - GI/Abdominal Exam GI & Abdominal Exam: Soft. absent: Distended, Tenderness Additional comments: ostomy pink and patent. good output. - Rectal Exam Additional comments: dressing changed at bedside - Neurological Exam Neurological Exam: Alert, Awake, Oriented x3 - Psychiatric Exam Psychiatric exam: Normal Affect - Skin Skin Exam: Intact, Normal Color Assessment and Plan - Assessment and Plan (Free Text) Assessment: 22M hx of Crohns s/p perianal I&D POD1 Plan: - Daily dressing change - encourage ambulation and good hygiene - milk of mag around stoma site - monitor ostomy output - further recs per Dr. Cluadia Sears PGY1
[2017-03-26] MEDS ORDERED: Magnesium Hydroxide Susp 30 ml UD GT PRN (10:12)
--- NOTE | 2017-03-26 12:58 | CP.PCM.PN ---
Subjective - Date & Time of Evaluation Date of Evaluation: 03/26/17 Time of Evaluation: 12:55 - Subjective Subjective: Events reviewed Objective - Vital Signs/Intake and Output Vital Signs (last 24 hours): Temp Pulse Resp BP Pulse Ox 97.7 F 75 18 110/73 100 03/26/17 07:10 03/26/17 07:10 03/26/17 07:10 03/26/17 07:10 03/26/17 07:10 Intake and Output: 03/26/17 03/26/17 06:59 18:59 Intake Total 250.4 180 Output Total 100 Balance 150.4 180 - Medications Medications: Current Medications Acetaminophen (Tylenol 325mg Tab) 975 mg PO Q8 [facility] Last Admin: 03/25/17 21:50 Dose: 975 mg Apixaban (Eliquis) 5 mg PO BID [facility] Last Admin: 03/23/17 10:07 Dose: 5 mg Cyanocobalamin (Vitamin B12 1000 Mcg Tab) 1,000 mcg PO DAILY [facility] Last Admin: 03/26/17 09:08 Dose: 1,000 mcg Diphenhydramine HCl (Benadryl) 25 mg IVP Q3 PRN PRN Reason: Itching / Pruritus Last Admin: 03/26/17 11:44 Dose: 25 mg Ferrous Sulfate (Feosol) 325 mg PO BID [facility] Last Admin: 03/26/17 09:08 Dose: 325 mg Hydromorphone HCl (Dilaudid) 1 mg IVP Q3 PRN PRN Reason: Pain, severe (8-10) Last Admin: 03/26/17 11:44 Dose: 1 mg Hydromorphone HCl (Dilaudid) 0.5 mg IVP Q10M PRN PRN Reason: Pain, moderate (4-7) Last Admin: 03/25/17 11:51 Dose: 0.5 mg Piperacillin Sod/Tazobactam (Sod 3.375 gm/ Sodium Chloride) 100 mls @ 200 mls/ hr IVPB Q8H [facility] Last Admin: 03/26/17 04:59 Dose: 200 mls/hr Heparin Sodium/Sodium Chloride (Heparin 50010 Units/250ml 1/2 Normal Saline) 25 ,000 units in 250 mls @ 10.451 mls/hr IV .[id number] PRN; Protocol; 18 UNITS/KG/HR PRN Reason: PROTOCOL Last Admin: 03/25/17 21:56 Dose: 18 units/kg/hr, 10.451 mls/hr Magnesium Hydroxide (Milk Of Magnesia) 0 ml GT DAILY PRN PRN Reason: EXCORIATION Mesalamine (Delzicol) 800 mg PO DAILY [facility] Last Admin: 03/26/17 09:08 Dose: 800 mg Pantoprazole Sodium (Protonix Ec Tab) 40 mg PO DAILY [facility] Last Admin: 03/26/17 09:08 Dose: 40 mg - Labs Labs: 03/26/17 04:38 03/26/17 04:38 PT 12.0 SECONDS (9.7-12.2) 03/25/17 15:09 INR 1.1 03/25/17 15:09 APTT 45 SECONDS (21-34) H D 03/26/17 11:26 - Constitutional Appears: Well, Non-toxic - Respiratory Exam Respiratory Exam: Clear to Ausculation Bilateral, NORMAL BREATHING PATTERN - Cardiovascular Exam Cardiovascular Exam: REGULAR RHYTHM, RRR, +S1, +S2. 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 Will discuss work up as an outpatient when his greater issues are stable Pulmonary embolism - small, no evidence of RV strain or enlargement, anticoagulate with NOAC Crohne's disease - immunotherapy as tolerated Perineal abcess - abx post op supportive wound care Cleared for D/C from cardiac standpoint please call back if needed.
--- NOTE | 2017-03-26 15:35 | CP.PCM.PN ---
Subjective - Date & Time of Evaluation Date of Evaluation: 03/26/17 Time of Evaluation: 11:40 - Subjective Subjective: clinically same Objective - Vital Signs/Intake and Output Vital Signs (last 24 hours): Temp Pulse Resp BP Pulse Ox 97.7 F 75 18 110/73 100 03/26/17 07:10 03/26/17 07:10 03/26/17 07:10 03/26/17 07:10 03/26/17 07:10 Intake and Output: 03/26/17 03/26/17 06:59 18:59 Intake Total 250.4 180 Output Total 100 Balance 150.4 180 - Medications Medications: Current Medications Acetaminophen (Tylenol 325mg Tab) 975 mg PO Q8 [facility] Last Admin: 03/26/17 14:46 Dose: Not Given Apixaban (Eliquis) 5 mg PO BID [facility] Last Admin: 03/23/17 10:07 Dose: 5 mg Cyanocobalamin (Vitamin B12 1000 Mcg Tab) 1,000 mcg PO DAILY [facility] Last Admin: 03/26/17 09:08 Dose: 1,000 mcg Diphenhydramine HCl (Benadryl) 25 mg IVP Q3 PRN PRN Reason: Itching / Pruritus Last Admin: 03/26/17 14:44 Dose: 25 mg Ferrous Sulfate (Feosol) 325 mg PO BID [facility] Last Admin: 03/26/17 09:08 Dose: 325 mg Hydromorphone HCl (Dilaudid) 1 mg IVP Q3 PRN PRN Reason: Pain, severe (8-10) Last Admin: 03/26/17 14:45 Dose: 1 mg Hydromorphone HCl (Dilaudid) 0.5 mg IVP Q10M PRN PRN Reason: Pain, moderate (4-7) Last Admin: 03/25/17 11:51 Dose: 0.5 mg Piperacillin Sod/Tazobactam (Sod 3.375 gm/ Sodium Chloride) 100 mls @ 200 mls/ hr IVPB Q8H [facility] Last Admin: 03/26/17 13:15 Dose: 200 mls/hr Heparin Sodium/Sodium Chloride (Heparin 23011 Units/250ml 1/2 Normal Saline) 25 ,000 units in 250 mls @ 10.451 mls/hr IV .[id number] PRN; Protocol; 18 UNITS/KG/HR PRN Reason: PROTOCOL Last Admin: 03/25/17 21:56 Dose: 18 units/kg/hr, 10.451 mls/hr Magnesium Hydroxide (Milk Of Magnesia) 0 ml GT DAILY PRN PRN Reason: EXCORIATION Mesalamine (Delzicol) 800 mg PO DAILY [facility] Last Admin: 03/26/17 09:08 Dose: 800 mg Pantoprazole Sodium (Protonix Ec Tab) 40 mg PO DAILY [facility] Last Admin: 03/26/17 09:08 Dose: 40 mg - Labs Labs: 03/26/17 04:38 03/26/17 04:38 PT 12.0 SECONDS (9.7-12.2) 03/25/17 15:09 INR 1.1 03/25/17 15:09 APTT 45 SECONDS (21-34) H D 03/26/17 11:26 - Constitutional Appears: Well - Head Exam Head Exam: ATRAUMATIC, NORMAL INSPECTION, NORMOCEPHALIC - Eye Exam Eye Exam: EOMI, Normal appearance, PERRL Pupil Exam: NORMAL ACCOMODATION, PERRL - ENT Exam ENT Exam: Mucous Membranes Moist, Normal Exam - Neck Exam Neck Exam: Full ROM, Normal Inspection. absent: Lymphadenopathy - Respiratory Exam Respiratory Exam: Decreased Breath Sounds - Cardiovascular Exam Cardiovascular Exam: REGULAR RHYTHM, +S1, +S2 - GI/Abdominal Exam GI & Abdominal Exam: Soft, Diminished Bowel Sounds - Rectal Exam Rectal Exam: Deferred
--- NOTE | 2017-03-26 18:30 | CP.PCM.PN ---
Subjective - Date & Time of Evaluation Date of Evaluation: 03/26/17 Time of Evaluation: 10:00 - Subjective Subjective: cultures noted s/p I and D Objective - Vital Signs/Intake and Output Vital Signs (last 24 hours): Temp Pulse Resp BP Pulse Ox 97.7 F 75 18 110/73 100 03/26/17 07:10 03/26/17 07:10 03/26/17 07:10 03/26/17 07:10 03/26/17 07:10 Intake and Output: 03/26/17 03/26/17 06:59 18:59 Intake Total 250.4 180 Output Total 100 Balance 150.4 180 - Medications Medications: Current Medications Acetaminophen (Tylenol 325mg Tab) 975 mg PO Q8 [facility] Last Admin: 03/26/17 14:46 Dose: Not Given Apixaban (Eliquis) 5 mg PO BID [facility] Last Admin: 03/23/17 10:07 Dose: 5 mg Cyanocobalamin (Vitamin B12 1000 Mcg Tab) 1,000 mcg PO DAILY [facility] Last Admin: 03/26/17 09:08 Dose: 1,000 mcg Diphenhydramine HCl (Benadryl) 25 mg IVP Q3 PRN PRN Reason: Itching / Pruritus Last Admin: 03/26/17 17:53 Dose: 25 mg Ferrous Sulfate (Feosol) 325 mg PO BID [facility] Last Admin: 03/26/17 17:53 Dose: 325 mg Hydromorphone HCl (Dilaudid) 1 mg IVP Q3 PRN PRN Reason: Pain, severe (8-10) Last Admin: 03/26/17 17:54 Dose: 1 mg Hydromorphone HCl (Dilaudid) 0.5 mg IVP Q10M PRN PRN Reason: Pain, moderate (4-7) Last Admin: 03/25/17 11:51 Dose: 0.5 mg Piperacillin Sod/Tazobactam (Sod 3.375 gm/ Sodium Chloride) 100 mls @ 200 mls/ hr IVPB Q8H [facility] Last Admin: 03/26/17 13:15 Dose: 200 mls/hr Heparin Sodium/Sodium Chloride (Heparin 32462 Units/250ml 1/2 Normal Saline) 25 ,000 units in 250 mls @ 10.451 mls/hr IV .[id number] PRN; Protocol; 18 UNITS/KG/HR PRN Reason: PROTOCOL Last Admin: 03/25/17 21:56 Dose: 18 units/kg/hr, 10.451 mls/hr Magnesium Hydroxide (Milk Of Magnesia) 0 ml GT DAILY PRN PRN Reason: EXCORIATION Mesalamine (Delzicol) 800 mg PO DAILY [facility] Last Admin: 03/26/17 09:08 Dose: 800 mg Pantoprazole Sodium (Protonix Ec Tab) 40 mg PO DAILY [facility] Last Admin: 03/26/17 09:08 Dose: 40 mg - Labs Labs: 03/26/17 04:38 03/26/17 04:38 PT 12.0 SECONDS (9.7-12.2) 03/25/17 15:09 INR 1.1 03/25/17 15:09 APTT 45 SECONDS (21-34) H D 03/26/17 11:26 - Constitutional Appears: Non-toxic, Chronically Ill - Head Exam Head Exam: NORMOCEPHALIC - Eye Exam Eye Exam: PERRL. absent: Scleral icterus - ENT Exam ENT Exam: Mucous Membranes Dry - Neck Exam Neck Exam: absent: Lymphadenopathy - Respiratory Exam Respiratory Exam: Decreased Breath Sounds - Cardiovascular Exam Cardiovascular Exam: REGULAR RHYTHM - GI/Abdominal Exam GI & Abdominal Exam: Distended Additional comments: + colostomy - Rectal Exam Rectal Exam: Deferred - Exam Exam: NORMAL INSPECTION - Extremities Exam Extremities Exam: absent: Pedal Edema - Back Exam Back Exam: absent: CVA tenderness (L), CVA tenderness (R) Assessment and Plan (1) Abdominal pain Status: Acute (2) Abscess Status: Acute (3) Crohn disease Status: Acute (4) DVT (deep venous thrombosis) Status: Acute (5) Wound of right buttock Status: Acute (6) Pulmonary embolism Status: Acute - Assessment and Plan (Free Text) Assessment: cont iv then po rx start remicade upon healing then reversal of colostomy
[2017-03-26] MEDS: Heparin25000 units/250ml 1/2NS 25,000 UNITS/250 ML BAG IV PRN (21:57)
[2017-03-27] MEDS: DiphenhydrAMINE 50 mg/ml Inj IVP PRN ×8 (00:04→21:12)
[2017-03-27] MEDS: HYDROmorphone 1 mg/ml ISec IVP PRN ×8 (00:05→21:12)
[2017-03-27] MEDS: Piperacillin/Tazobact 3.375 GM in Sodium Chloride 100 ML IVPB SCH ×3 (06:06→21:11)
--- NOTE | 2017-03-27 08:25 | CP.PCM.PN ---
<Manuel Sears - Last Filed: 03/27/17 08:21> Subjective - Date & Time of Evaluation Date of Evaluation: 03/27/17 Time of Evaluation: 07:00 - Subjective Subjective: General Surgery- Dr. Taylor Pt S&E at bedside this AM. No acute events overnight. Pt tolerating diet. complaining of appropriate pain around incision site. leakage from ostomy site on medial side. Pt described Milk of Mag did not work around ostomy site. Ostomy is pink and patent. Denies FC SOB/CP N/V Objective - Vital Signs/Intake and Output Vital Signs (last 24 hours): Temp Pulse Resp BP Pulse Ox 98.3 F 109 H 20 100/65 100 03/26/17 23:30 03/27/17 01:00 03/26/17 23:30 03/26/17 23:30 03/26/17 23:30 Intake and Output: 03/27/17 03/27/17 06:59 18:59 Intake Total 1176.808 Output Total 1850 Balance -673.192 - Medications Medications: Current Medications Acetaminophen (Tylenol 325mg Tab) 975 mg PO Q8 [facility] Last Admin: 03/27/17 05:30 Dose: Not Given Apixaban (Eliquis) 5 mg PO BID [facility] Last Admin: 03/23/17 10:07 Dose: 5 mg Cyanocobalamin (Vitamin B12 1000 Mcg Tab) 1,000 mcg PO DAILY [facility] Last Admin: 03/26/17 09:08 Dose: 1,000 mcg Diphenhydramine HCl (Benadryl) 25 mg IVP Q3 PRN PRN Reason: Itching / Pruritus Last Admin: 03/27/17 06:06 Dose: 25 mg Ferrous Sulfate (Feosol) 325 mg PO BID [facility] Last Admin: 03/26/17 17:53 Dose: 325 mg Hydromorphone HCl (Dilaudid) 1 mg IVP Q3 PRN PRN Reason: Pain, severe (8-10) Last Admin: 03/27/17 06:07 Dose: 1 mg Hydromorphone HCl (Dilaudid) 0.5 mg IVP Q10M PRN PRN Reason: Pain, moderate (4-7) Last Admin: 03/25/17 11:51 Dose: 0.5 mg Piperacillin Sod/Tazobactam (Sod 3.375 gm/ Sodium Chloride) 100 mls @ 200 mls/ hr IVPB Q8H [facility] Last Admin: 03/27/17 06:06 Dose: 200 mls/hr Heparin Sodium/Sodium Chloride (Heparin 07317 Units/250ml 1/2 Normal Saline) 25 ,000 units in 250 mls @ 10.451 mls/hr IV .[id number] PRN; Protocol; 18 UNITS/KG/HR PRN Reason: PROTOCOL Last Admin: 03/26/17 21:57 Dose: 18 units/kg/hr, 10.451 mls/hr Magnesium Hydroxide (Milk Of Magnesia) 0 ml GT DAILY PRN PRN Reason: EXCORIATION Mesalamine (Delzicol) 800 mg PO DAILY [facility] Last Admin: 03/26/17 09:08 Dose: 800 mg Pantoprazole Sodium (Protonix Ec Tab) 40 mg PO DAILY [facility] Last Admin: 03/26/17 09:08 Dose: 40 mg - Labs Labs: 03/26/17 04:38 03/26/17 04:38 PT 12.0 SECONDS (9.7-12.2) 03/25/17 15:09 INR 1.1 03/25/17 15:09 APTT 41 SECONDS (21-34) H 03/27/17 07:50 - Constitutional Appears: Non-toxic, No Acute Distress - Eye Exam Eye Exam: EOMI - ENT Exam ENT Exam: Mucous Membranes Moist - Respiratory Exam Respiratory Exam: NORMAL BREATHING PATTERN. absent: Accessory Muscle Use, Rhonchi, Wheezes - Cardiovascular Exam Cardiovascular Exam: REGULAR RHYTHM, +S1, +S2 - GI/Abdominal Exam GI & Abdominal Exam: Soft, Normal Bowel Sounds. absent: Tenderness, Rebound - Rectal Exam Additional comments: coccyx has serous fluid actively draining - Extremities Exam Extremities Exam: Full ROM - Neurological Exam Neurological Exam: Awake, Oriented x3 Assessment and Plan - Assessment and Plan (Free Text) Assessment: 22M hx of Crohns s/p perianal I&D POD2 Plan: - Daily dressing change no packing - encourage ambulation and good hygiene - mastasol and barrier ring around ostomy bag - monitor ostomy output - ID recs appreciated for home abx - further recs per Dr. Claudia Sears PGY1 <Temo Taylor - Last Filed: 03/27/17 09:07> Objective - Vital Signs/Intake and Output Vital Signs (last 24 hours): Temp Pulse Resp BP Pulse Ox 98.6 F 92 H 20 100/71 100 03/27/17 07:55 03/27/17 07:55 03/27/17 07:55 03/27/17 07:55 03/27/17 07:55 Intake and Output: 03/27/17 03/27/17 06:59 18:59 Intake Total 1176.808 Output Total 1850 Balance -673.192 - Medications Medications: Current Medications Acetaminophen (Tylenol 325mg Tab) 975 mg PO Q8 [facility] Last Admin: 03/27/17 05:30 Dose: Not Given Apixaban (Eliquis) 5 mg PO BID [facility] Last Admin: 03/23/17 10:07 Dose: 5 mg Cyanocobalamin (Vitamin B12 1000 Mcg Tab) 1,000 mcg PO DAILY [facility] Last Admin: 03/26/17 09:08 Dose: 1,000 mcg Diphenhydramine HCl (Benadryl) 25 mg IVP Q3 PRN PRN Reason: Itching / Pruritus Last Admin: 03/27/17 06:06 Dose: 25 mg Ferrous Sulfate (Feosol) 325 mg PO BID [facility] Last Admin: 03/26/17 17:53 Dose: 325 mg Hydromorphone HCl (Dilaudid) 1 mg IVP Q3 PRN PRN Reason: Pain, severe (8-10) Last Admin: 03/27/17 06:07 Dose: 1 mg Hydromorphone HCl (Dilaudid) 0.5 mg IVP Q10M PRN PRN Reason: Pain, moderate (4-7) Last Admin: 03/25/17 11:51 Dose: 0.5 mg Piperacillin Sod/Tazobactam (Sod 3.375 gm/ Sodium Chloride) 100 mls @ 200 mls/ hr IVPB Q8H [facility] Last Admin: 03/27/17 06:06 Dose: 200 mls/hr Heparin Sodium/Sodium Chloride (Heparin 00922 Units/250ml 1/2 Normal Saline) 25 ,000 units in 250 mls @ 10.451 mls/hr IV .[id number] PRN; Protocol; 18 UNITS/KG/HR PRN Reason: PROTOCOL Last Admin: 03/26/17 21:57 Dose: 18 units/kg/hr, 10.451 mls/hr Magnesium Hydroxide (Milk Of Magnesia) 0 ml GT DAILY PRN PRN Reason: EXCORIATION Mesalamine (Delzicol) 800 mg PO DAILY [facility] Last Admin: 03/26/17 09:08 Dose: 800 mg Pantoprazole Sodium (Protonix Ec Tab) 40 mg PO DAILY [facility] Last Admin: 03/26/17 09:08 Dose: 40 mg - Labs Labs: 03/26/17 04:38 03/26/17 04:38 PT 12.0 SECONDS (9.7-12.2) 03/25/17 15:09 INR 1.1 03/25/17 15:09 APTT 41 SECONDS (21-34) H 03/27/17 07:50 Attending/Attestation - Attestation I have personally seen and examined this patient.: Yes I have fully participated in the care of the patient.: Yes I have reviewed all pertinent clinical information, including history, physical exam and plan: Yes Notes (Text): 03/27/17 09:05 Pt was seen and examined at bedside on 03/27/17 Agree with above note and assessment.
[2017-03-27] MEDS: Pantoprazole 40 mg EC Tab PO SCH (10:31)
--- NOTE | 2017-03-27 10:50 | US ---
Procedure: Ultrasound and fluoroscopically placed Right upper extremity PICC. Clinical indication: Long-term IV antibiotics. Technique: The relative risks and indications of the procedure were explained to the patient and written informed consent obtained. The patient was placed supine on the angiographic table and the right arm prepped and draped in the usual sterile fashion. A tourniquet was applied to the right axilla. 1% lidocaine was used to anesthetize the skin and soft tissues at the puncture site above the elbow. The right brachial vein was punctured under direct ultrasound guidance with a micropuncture set. A permanent image was stored. A 0.018 guidewire was advanced centrally, however the wire could only extended to the subclavian vein segment. A 4 [place] single-lumen PICC, size 22 cm, was advanced to the subclavian vein segment under fluoroscopic guidance. The catheter was flushed and secured. The patient tolerated the procedure well. Postprocedure chest image was obtained to ensure location of the catheter tip at the subclavian vein segment. Impression: Ultrasound and fluoroscopically placed right upper extremity PICC. A 4 [place] single-lumen PICC, size 22 cm was advanced to the subclavian vein segment. PICC ready for use.
--- NOTE | 2017-03-27 16:39 | CP.PCM.PN ---
Subjective - Date & Time of Evaluation Date of Evaluation: 03/27/17 Time of Evaluation: 12:00 - Subjective Subjective: Clinically same Objective - Vital Signs/Intake and Output Vital Signs (last 24 hours): Temp Pulse Resp BP Pulse Ox 98.1 F 105 H 18 102/64 99 03/27/17 15:46 03/27/17 15:46 03/27/17 15:46 03/27/17 15:46 03/27/17 15:46 Intake and Output: 03/27/17 03/27/17 06:59 18:59 Intake Total 1176.808 Output Total 1850 Balance -673.192 - Medications Medications: Current Medications Acetaminophen (Tylenol 325mg Tab) 975 mg PO Q8 [facility] Last Admin: 03/27/17 13:19 Dose: Not Given Apixaban (Eliquis) 5 mg PO BID [facility] Last Admin: 03/27/17 12:01 Dose: 5 mg Cyanocobalamin (Vitamin B12 1000 Mcg Tab) 1,000 mcg PO DAILY [facility] Last Admin: 03/27/17 10:31 Dose: 1,000 mcg Diphenhydramine HCl (Benadryl) 25 mg IVP Q3 PRN PRN Reason: Itching / Pruritus Last Admin: 03/27/17 14:55 Dose: 25 mg Ferrous Sulfate (Feosol) 325 mg PO BID [facility] Last Admin: 03/27/17 10:31 Dose: 325 mg Hydromorphone HCl (Dilaudid) 1 mg IVP Q3 PRN PRN Reason: Pain, severe (8-10) Last Admin: 03/27/17 14:56 Dose: 1 mg Piperacillin Sod/Tazobactam (Sod 3.375 gm/ Sodium Chloride) 100 mls @ 200 mls/ hr IVPB Q8H [facility] Last Admin: 03/27/17 13:18 Dose: 200 mls/hr Magnesium Hydroxide (Milk Of Magnesia) 0 ml GT DAILY PRN PRN Reason: EXCORIATION Mesalamine (Delzicol) 800 mg PO DAILY [facility] Last Admin: 03/27/17 10:31 Dose: 800 mg Pantoprazole Sodium (Protonix Ec Tab) 40 mg PO DAILY [facility] Last Admin: 03/27/17 10:31 Dose: 40 mg - Labs Labs: 03/26/17 04:38 03/26/17 04:38 PT 12.0 SECONDS (9.7-12.2) 03/25/17 15:09 INR 1.1 03/25/17 15:09 APTT 41 SECONDS (21-34) H 03/27/17 07:50 - Constitutional Appears: Well - Head Exam Head Exam: ATRAUMATIC, NORMAL INSPECTION, NORMOCEPHALIC - Eye Exam Eye Exam: EOMI, Normal appearance, PERRL Pupil Exam: NORMAL ACCOMODATION, PERRL - ENT Exam ENT Exam: Mucous Membranes Moist, Normal Exam - Neck Exam Neck Exam: Full ROM, Normal Inspection. absent: Lymphadenopathy - Respiratory Exam Respiratory Exam: Decreased Breath Sounds - Cardiovascular Exam Cardiovascular Exam: REGULAR RHYTHM, +S1, +S2 - GI/Abdominal Exam GI & Abdominal Exam: Soft, Diminished Bowel Sounds - Rectal Exam Rectal Exam: Deferred
[2017-03-28] MEDS: HYDROmorphone 1 mg/ml ISec IVP PRN ×8 (00:10→23:38)
[2017-03-28] MEDS: DiphenhydrAMINE 50 mg/ml Inj IVP PRN ×8 (00:10→23:37)
[2017-03-28] MEDS: Piperacillin/Tazobact 3.375 GM in Sodium Chloride 100 ML IVPB SCH ×3 (05:45→20:52)
[2017-03-28] MEDS: Pantoprazole 40 mg EC Tab PO SCH (10:14)
--- NOTE | 2017-03-28 13:52 | CP.PCM.PN ---
Subjective - Date & Time of Evaluation Date of Evaluation: 03/28/17 Time of Evaluation: 09:40 - Subjective Subjective: clinically same Objective - Vital Signs/Intake and Output Vital Signs (last 24 hours): Temp Pulse Resp BP Pulse Ox 97.9 F 118 H 18 103/74 98 03/28/17 08:48 03/28/17 09:00 03/28/17 08:48 03/28/17 08:48 03/28/17 08:48 Intake and Output: 03/28/17 03/28/17 06:59 18:59 Intake Total 340 350 Output Total 950 Balance -610 350 - Medications Medications: Current Medications Acetaminophen (Tylenol 325mg Tab) 975 mg PO Q8 [facility] Last Admin: 03/28/17 13:10 Dose: Not Given Apixaban (Eliquis) 5 mg PO BID [facility] Last Admin: 03/28/17 10:14 Dose: 5 mg Cyanocobalamin (Vitamin B12 1000 Mcg Tab) 1,000 mcg PO DAILY [facility] Last Admin: 03/28/17 10:16 Dose: 1,000 mcg Diphenhydramine HCl (Benadryl) 25 mg IVP Q3 PRN PRN Reason: Itching / Pruritus Last Admin: 03/28/17 13:10 Dose: 25 mg Ferrous Sulfate (Feosol) 325 mg PO BID [facility] Last Admin: 03/28/17 10:15 Dose: 325 mg Hydromorphone HCl (Dilaudid) 1 mg IVP Q3 PRN PRN Reason: Pain, severe (8-10) Last Admin: 03/28/17 13:10 Dose: 1 mg Piperacillin Sod/Tazobactam (Sod 3.375 gm/ Sodium Chloride) 100 mls @ 200 mls/ hr IVPB Q8H [facility] Last Admin: 03/28/17 05:45 Dose: 200 mls/hr Magnesium Hydroxide (Milk Of Magnesia) 0 ml GT DAILY PRN PRN Reason: EXCORIATION Mesalamine (Delzicol) 800 mg PO DAILY [facility] Last Admin: 03/28/17 10:15 Dose: 800 mg Pantoprazole Sodium (Protonix Ec Tab) 40 mg PO DAILY [facility] Last Admin: 03/28/17 10:14 Dose: 40 mg - Labs Labs: 03/26/17 04:38 03/26/17 04:38 PT 12.0 SECONDS (9.7-12.2) 03/25/17 15:09 INR 1.1 03/25/17 15:09 APTT 41 SECONDS (21-34) H 03/27/17 07:50 - Constitutional Appears: Well - Head Exam Head Exam: ATRAUMATIC, NORMAL INSPECTION, NORMOCEPHALIC - Eye Exam Eye Exam: EOMI, Normal appearance, PERRL Pupil Exam: NORMAL ACCOMODATION, PERRL - ENT Exam ENT Exam: Mucous Membranes Moist, Normal Exam - Neck Exam Neck Exam: Full ROM, Normal Inspection. absent: Lymphadenopathy - Respiratory Exam Respiratory Exam: Decreased Breath Sounds - Cardiovascular Exam Cardiovascular Exam: REGULAR RHYTHM, +S1, +S2 - GI/Abdominal Exam GI & Abdominal Exam: Soft, Diminished Bowel Sounds - Rectal Exam Rectal Exam: Deferred
[2017-03-28] MEDS: Linezolid 600 mg in D5W 300 ml 600 MG/300 ML BAG IVPB SCH (22:08)
[2017-03-29] MEDS: HYDROmorphone 1 mg/ml ISec IVP PRN ×7 (02:42→21:03)
[2017-03-29] MEDS: DiphenhydrAMINE 50 mg/ml Inj IVP PRN ×7 (02:42→21:04)
[2017-03-29] MEDS: Piperacillin/Tazobact 3.375 GM in Sodium Chloride 100 ML IVPB SCH (05:10)
[2017-03-29] MEDS: Pantoprazole 40 mg EC Tab PO SCH (09:17)
[2017-03-29] MEDS: Linezolid 600 mg in D5W 300 ml 600 MG/300 ML BAG IVPB SCH ×2 (09:18→21:05)
--- NOTE | 2017-03-29 14:47 | CP.PCM.PN ---
Subjective - Date & Time of Evaluation Date of Evaluation: 03/29/17 Time of Evaluation: 08:00 - Subjective Subjective: culture from abscess + MRSA zyvox added cont same Objective - Vital Signs/Intake and Output Vital Signs (last 24 hours): Temp Pulse Resp BP Pulse Ox 98.1 F 88 18 106/71 95 03/29/17 08:06 03/29/17 12:15 03/29/17 08:06 03/29/17 11:59 03/29/17 08:06 Intake and Output: 03/29/17 03/29/17 06:59 18:59 Output Total 300 Balance -300 - Medications Medications: Current Medications Acetaminophen (Tylenol 325mg Tab) 975 mg PO Q8 [facility] Last Admin: 03/29/17 14:35 Dose: Not Given Apixaban (Eliquis) 5 mg PO BID [facility] Last Admin: 03/29/17 09:18 Dose: 5 mg Cyanocobalamin (Vitamin B12 1000 Mcg Tab) 1,000 mcg PO DAILY [facility] Last Admin: 03/29/17 09:17 Dose: 1,000 mcg Diphenhydramine HCl (Benadryl) 25 mg IVP Q3 PRN PRN Reason: Itching / Pruritus Last Admin: 03/29/17 12:00 Dose: 25 mg Ferrous Sulfate (Feosol) 325 mg PO BID [facility] Last Admin: 03/29/17 09:17 Dose: 325 mg Hydromorphone HCl (Dilaudid) 1 mg IVP Q3 PRN PRN Reason: Pain, severe (8-10) Last Admin: 03/29/17 12:01 Dose: 1 mg Linezolid (Zyvox 600mg/300ml D5w) 600 mg in 300 mls @ 200 mls/hr IVPB Q12 [facility] Last Admin: 03/29/17 09:18 Dose: 200 mls/hr Magnesium Hydroxide (Milk Of Magnesia) 0 ml GT DAILY PRN PRN Reason: EXCORIATION Mesalamine (Delzicol) 800 mg PO DAILY [facility] Last Admin: 03/29/17 09:18 Dose: 800 mg Pantoprazole Sodium (Protonix Ec Tab) 40 mg PO DAILY [facility] Last Admin: 03/29/17 09:17 Dose: 40 mg - Labs Labs: 03/26/17 04:38 03/26/17 04:38 PT 12.0 SECONDS (9.7-12.2) 03/25/17 15:09 INR 1.1 03/25/17 15:09 APTT 41 SECONDS (21-34) H 03/27/17 07:50 - Constitutional Appears: Non-toxic, Chronically Ill - Head Exam Head Exam: NORMOCEPHALIC - Eye Exam Eye Exam: PERRL - ENT Exam ENT Exam: Mucous Membranes Dry - Neck Exam Neck Exam: absent: Lymphadenopathy - Respiratory Exam Respiratory Exam: Decreased Breath Sounds - Cardiovascular Exam Cardiovascular Exam: REGULAR RHYTHM - GI/Abdominal Exam GI & Abdominal Exam: Distended, Soft Assessment and Plan (1) Abdominal pain Status: Acute (2) Abscess Status: Acute (3) Crohn disease Status: Acute (4) DVT (deep venous thrombosis) Status: Acute (5) Wound of right buttock Status: Acute (6) Pulmonary embolism Status: Acute
--- NOTE | 2017-03-29 22:05 | CP.PCM.PN ---
Subjective - Date & Time of Evaluation Date of Evaluation: 03/29/17 Time of Evaluation: 10:55 - Subjective Subjective: clinically same Objective - Vital Signs/Intake and Output Vital Signs (last 24 hours): Temp Pulse Resp BP Pulse Ox 98.5 F 115 H 20 112/68 99 03/29/17 16:51 03/29/17 18:00 03/29/17 16:51 03/29/17 16:51 03/29/17 16:51 Intake and Output: 03/29/17 03/30/17 18:59 06:59 Intake Total 700 Balance 700 - Medications Medications: Current Medications Acetaminophen (Tylenol 325mg Tab) 975 mg PO Q8 [facility] Last Admin: 03/29/17 21:06 Dose: Not Given Apixaban (Eliquis) 5 mg PO BID [facility] Last Admin: 03/29/17 18:06 Dose: 5 mg Cyanocobalamin (Vitamin B12 1000 Mcg Tab) 1,000 mcg PO DAILY [facility] Last Admin: 03/29/17 09:17 Dose: 1,000 mcg Diphenhydramine HCl (Benadryl) 25 mg IVP Q3 PRN PRN Reason: Itching / Pruritus Last Admin: 03/29/17 21:04 Dose: 25 mg Ferrous Sulfate (Feosol) 325 mg PO BID [facility] Last Admin: 03/29/17 18:06 Dose: 325 mg Hydromorphone HCl (Dilaudid) 1 mg IVP Q3 PRN PRN Reason: Pain, severe (8-10) Last Admin: 03/29/17 21:03 Dose: 1 mg Linezolid (Zyvox 600mg/300ml D5w) 600 mg in 300 mls @ 200 mls/hr IVPB Q12 [facility] Last Admin: 03/29/17 21:05 Dose: 200 mls/hr Magnesium Hydroxide (Milk Of Magnesia) 0 ml GT DAILY PRN PRN Reason: EXCORIATION Mesalamine (Delzicol) 800 mg PO DAILY [facility] Last Admin: 03/29/17 09:18 Dose: 800 mg Pantoprazole Sodium (Protonix Ec Tab) 40 mg PO DAILY [facility] Last Admin: 03/29/17 09:17 Dose: 40 mg - Labs Labs: 03/26/17 04:38 03/26/17 04:38 PT 12.0 SECONDS (9.7-12.2) 03/25/17 15:09 INR 1.1 03/25/17 15:09 APTT 41 SECONDS (21-34) H 03/27/17 07:50 - Constitutional Appears: Well - Head Exam Head Exam: ATRAUMATIC, NORMAL INSPECTION, NORMOCEPHALIC - Eye Exam Eye Exam: EOMI, Normal appearance, PERRL - ENT Exam ENT Exam: Mucous Membranes Moist, Normal Exam - Neck Exam Neck Exam: Full ROM, Normal Inspection. absent: Lymphadenopathy - Respiratory Exam Respiratory Exam: Decreased Breath Sounds - Cardiovascular Exam Cardiovascular Exam: REGULAR RHYTHM, +S1, +S2. absent: Murmur - GI/Abdominal Exam GI & Abdominal Exam: Soft, Diminished Bowel Sounds - Rectal Exam Rectal Exam: Deferred Assessment and Plan (1) Abscess Status: Acute (2) Crohn disease Status: Acute (3) Pulmonary embolism Status: Acute (4) Abdominal pain Status: Acute (5) Constipation Status: Acute (6) DVT (deep venous thrombosis) Status: Acute (7) Diarrhea Status: Acute (8) Diarrhea Status: Acute (9) Encounter for wound care Status: Acute (10) Fever Status: Acute (11) Foreign body Status: Acute (12) Intractable abdominal pain Status: Acute (13) Intractable pain Status: Acute (14) Prophylactic measure Status: Acute (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
[2017-03-30] MEDS: DiphenhydrAMINE 50 mg/ml Inj IVP PRN ×8 (00:04→22:32)
[2017-03-30] MEDS: HYDROmorphone 1 mg/ml ISec IVP PRN ×8 (00:05→22:33)
[2017-03-30] MEDS: Pantoprazole 40 mg EC Tab PO SCH (09:41)
[2017-03-30] MEDS: Linezolid 600 mg in D5W 300 ml 600 MG/300 ML BAG IVPB SCH ×2 (09:52→22:10)
--- NOTE | 2017-03-30 17:54 | CP.PCM.PN ---
Subjective - Date & Time of Evaluation Date of Evaluation: 03/30/17 Time of Evaluation: 10:20 - Subjective Subjective: clinically same Objective - Vital Signs/Intake and Output Vital Signs (last 24 hours): Temp Pulse Resp BP Pulse Ox 98 F 100 H 18 101/64 97 03/30/17 07:54 03/30/17 13:40 03/30/17 07:54 03/30/17 09:40 03/30/17 07:54 Intake and Output: 03/30/17 03/30/17 06:59 18:59 Intake Total 650 Output Total 400 1200 Balance -400 -550 - Medications Medications: Current Medications Acetaminophen (Tylenol 325mg Tab) 975 mg PO Q8 [facility] Last Admin: 03/30/17 14:56 Dose: Not Given Apixaban (Eliquis) 5 mg PO BID [facility] Last Admin: 03/30/17 10:46 Dose: 5 mg Cyanocobalamin (Vitamin B12 1000 Mcg Tab) 1,000 mcg PO DAILY [facility] Last Admin: 03/30/17 09:45 Dose: 1,000 mcg Diphenhydramine HCl (Benadryl) 25 mg IVP Q3 PRN PRN Reason: Itching / Pruritus Last Admin: 03/30/17 16:13 Dose: 25 mg Ferrous Sulfate (Feosol) 325 mg PO BID [facility] Last Admin: 03/30/17 09:41 Dose: 325 mg Hydromorphone HCl (Dilaudid) 1 mg IVP Q3 PRN PRN Reason: Pain, severe (8-10) Last Admin: 03/30/17 16:14 Dose: 1 mg Linezolid (Zyvox 600mg/300ml D5w) 600 mg in 300 mls @ 200 mls/hr IVPB Q12 [facility] Last Admin: 03/30/17 09:52 Dose: 200 mls/hr Magnesium Hydroxide (Milk Of Magnesia) 0 ml GT DAILY PRN PRN Reason: EXCORIATION Mesalamine (Delzicol) 800 mg PO DAILY [facility] Last Admin: 03/30/17 09:45 Dose: 800 mg Pantoprazole Sodium (Protonix Ec Tab) 40 mg PO DAILY [facility] Last Admin: 03/30/17 09:41 Dose: 40 mg - Labs Labs: 03/26/17 04:38 03/26/17 04:38 PT 12.0 SECONDS (9.7-12.2) 03/25/17 15:09 INR 1.1 03/25/17 15:09 APTT 41 SECONDS (21-34) H 03/27/17 07:50 - Constitutional Appears: Well - Head Exam Head Exam: ATRAUMATIC, NORMAL INSPECTION, NORMOCEPHALIC - Eye Exam Eye Exam: EOMI, Normal appearance, PERRL Pupil Exam: NORMAL ACCOMODATION, PERRL - ENT Exam ENT Exam: Mucous Membranes Moist, Normal Exam - Neck Exam Neck Exam: Full ROM, Normal Inspection. absent: Lymphadenopathy - Respiratory Exam Respiratory Exam: Decreased Breath Sounds - Cardiovascular Exam Cardiovascular Exam: REGULAR RHYTHM, +S1, +S2 - GI/Abdominal Exam GI & Abdominal Exam: Soft, Diminished Bowel Sounds - Rectal Exam Rectal Exam: Deferred Assessment and Plan (1) Abscess Status: Acute (2) Crohn disease Status: Acute (3) Pulmonary embolism Status: Acute (4) Abdominal pain Status: Acute (5) Constipation Status: Acute (6) DVT (deep venous thrombosis) Status: Acute (7) Diarrhea Status: Acute (8) Diarrhea Status: Acute (9) Encounter for wound care Status: Acute (10) Fever Status: Acute (11) Foreign body Status: Acute (12) Intractable abdominal pain Status: Acute (13) Intractable pain Status: Acute (14) Prophylactic measure Status: Acute (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
[2017-03-31] MEDS: DiphenhydrAMINE 50 mg/ml Inj IVP PRN ×8 (01:42→23:54)
[2017-03-31] MEDS: HYDROmorphone 1 mg/ml ISec IVP PRN ×8 (01:42→23:57)
[2017-03-31] MEDS: Pantoprazole 40 mg EC Tab PO SCH (10:57)
[2017-03-31] MEDS: Linezolid 600 mg in D5W 300 ml 600 MG/300 ML BAG IVPB SCH ×2 (10:59→21:47)
--- NOTE | 2017-03-31 11:48 | CP.PCM.PN ---
Subjective - Date & Time of Evaluation Date of Evaluation: 03/31/17 Time of Evaluation: 09:00 - Subjective Subjective: afeb on zyvox to cont same for 10 days Objective - Vital Signs/Intake and Output Vital Signs (last 24 hours): Temp Pulse Resp BP Pulse Ox 98.0 F 81 20 104/70 100 03/31/17 07:50 03/31/17 08:00 03/31/17 07:50 03/31/17 08:00 03/31/17 07:50 Intake and Output: 03/31/17 03/31/17 06:59 18:59 Intake Total 350 Output Total 600 Balance -250 - Medications Medications: Current Medications Acetaminophen (Tylenol 325mg Tab) 975 mg PO Q8 [facility] Last Admin: 03/30/17 22:11 Dose: Not Given Apixaban (Eliquis) 5 mg PO BID [facility] Last Admin: 03/31/17 10:58 Dose: 5 mg Cyanocobalamin (Vitamin B12 1000 Mcg Tab) 1,000 mcg PO DAILY [facility] Last Admin: 03/31/17 10:58 Dose: 1,000 mcg Diphenhydramine HCl (Benadryl) 25 mg IVP Q3 PRN PRN Reason: Itching / Pruritus Last Admin: 03/31/17 11:12 Dose: 25 mg Ferrous Sulfate (Feosol) 325 mg PO BID [facility] Last Admin: 03/31/17 10:57 Dose: 325 mg Hydromorphone HCl (Dilaudid) 1 mg IVP Q3 PRN PRN Reason: Pain, severe (8-10) Last Admin: 03/31/17 11:13 Dose: 1 mg Linezolid (Zyvox 600mg/300ml D5w) 600 mg in 300 mls @ 200 mls/hr IVPB Q12 [facility] Last Admin: 03/31/17 10:59 Dose: 200 mls/hr Magnesium Hydroxide (Milk Of Magnesia) 0 ml GT DAILY PRN PRN Reason: EXCORIATION Mesalamine (Delzicol) 800 mg PO DAILY [facility] Last Admin: 03/31/17 10:58 Dose: 800 mg Pantoprazole Sodium (Protonix Ec Tab) 40 mg PO DAILY [facility] Last Admin: 03/31/17 10:57 Dose: 40 mg - Labs Labs: 03/26/17 04:38 03/26/17 04:38 PT 12.0 SECONDS (9.7-12.2) 03/25/17 15:09 INR 1.1 03/25/17 15:09 APTT 41 SECONDS (21-34) H 03/27/17 07:50 Assessment and Plan (1) Abdominal pain Status: Acute (2) Abscess Status: Acute (3) Crohn disease Status: Acute (4) DVT (deep venous thrombosis) Status: Acute (5) Wound of right buttock Status: Acute (6) Pulmonary embolism Status: Acute
--- NOTE | 2017-03-31 12:06 | CP.PCM.PN ---
Subjective - Date & Time of Evaluation Date of Evaluation: 03/31/17 Time of Evaluation: 11:59 - Subjective Subjective: IT WAS REQUESTED BY PAT CM FOR [employer] TO WRITE RX FOR ZYVOX TO PREPARE PT'S DISCHARGE PLAN. DAY CARE WORKER SPOKE W DR. BERGERON IN PERSON AND HE STATES TO GIVE ZYVOX 600 MG PO BID X10 DAY (#20 TABS). DAY CARE WORKER WILL ISSUE RX FOR THIS MEDICATION IN COLLABORATION W ID. RX GIVEN TO CM PAT. NO FURTHER ORDERS. Objective - Vital Signs/Intake and Output Vital Signs (last 24 hours): Temp Pulse Resp BP Pulse Ox 98.0 F 81 20 104/70 100 03/31/17 07:50 03/31/17 08:00 03/31/17 07:50 03/31/17 08:00 03/31/17 07:50 Intake and Output: 03/31/17 03/31/17 06:59 18:59 Intake Total 350 Output Total 600 Balance -250 - Medications Medications: Current Medications Acetaminophen (Tylenol 325mg Tab) 975 mg PO Q8 [facility] Last Admin: 03/30/17 22:11 Dose: Not Given Apixaban (Eliquis) 5 mg PO BID [facility] Last Admin: 03/31/17 10:58 Dose: 5 mg Cyanocobalamin (Vitamin B12 1000 Mcg Tab) 1,000 mcg PO DAILY [facility] Last Admin: 03/31/17 10:58 Dose: 1,000 mcg Diphenhydramine HCl (Benadryl) 25 mg IVP Q3 PRN PRN Reason: Itching / Pruritus Last Admin: 03/31/17 11:12 Dose: 25 mg Ferrous Sulfate (Feosol) 325 mg PO BID [facility] Last Admin: 03/31/17 10:57 Dose: 325 mg Hydromorphone HCl (Dilaudid) 1 mg IVP Q3 PRN PRN Reason: Pain, severe (8-10) Last Admin: 03/31/17 11:13 Dose: 1 mg Linezolid (Zyvox 600mg/300ml D5w) 600 mg in 300 mls @ 200 mls/hr IVPB Q12 [facility] Last Admin: 03/31/17 10:59 Dose: 200 mls/hr Magnesium Hydroxide (Milk Of Magnesia) 0 ml GT DAILY PRN PRN Reason: EXCORIATION Mesalamine (Delzicol) 800 mg PO DAILY [facility] Last Admin: 03/31/17 10:58 Dose: 800 mg Pantoprazole Sodium (Protonix Ec Tab) 40 mg PO DAILY [facility] Last Admin: 03/31/17 10:57 Dose: 40 mg - Labs Labs: 03/26/17 04:38 03/26/17 04:38 PT 12.0 SECONDS (9.7-12.2) 03/25/17 15:09 INR 1.1 03/25/17 15:09 APTT 41 SECONDS (21-34) H 03/27/17 07:50
--- NOTE | 2017-03-31 18:09 | CP.PCM.PN ---
Subjective - Date & Time of Evaluation Date of Evaluation: 03/31/17 Time of Evaluation: 10:40 - Subjective Subjective: clinically same Objective - Vital Signs/Intake and Output Vital Signs (last 24 hours): Temp Pulse Resp BP Pulse Ox 98.1 F 91 H 18 101/65 100 03/31/17 16:00 03/31/17 16:00 03/31/17 16:00 03/31/17 16:00 03/31/17 16:00 Intake and Output: 03/31/17 03/31/17 06:59 18:59 Intake Total 350 750 Output Total 600 900 Balance -250 -150 - Medications Medications: Current Medications Acetaminophen (Tylenol 325mg Tab) 975 mg PO Q8 [facility] Last Admin: 03/31/17 14:19 Dose: Not Given Apixaban (Eliquis) 5 mg PO BID [facility] Last Admin: 03/31/17 17:29 Dose: 5 mg Cyanocobalamin (Vitamin B12 1000 Mcg Tab) 1,000 mcg PO DAILY [facility] Last Admin: 03/31/17 10:58 Dose: 1,000 mcg Diphenhydramine HCl (Benadryl) 25 mg IVP Q3 PRN PRN Reason: Itching / Pruritus Last Admin: 03/31/17 17:30 Dose: 25 mg Ferrous Sulfate (Feosol) 325 mg PO BID [facility] Last Admin: 03/31/17 17:30 Dose: 325 mg Hydromorphone HCl (Dilaudid) 1 mg IVP Q3 PRN PRN Reason: Pain Last Admin: 03/31/17 17:30 Dose: 1 mg Linezolid (Zyvox 600mg/300ml D5w) 600 mg in 300 mls @ 200 mls/hr IVPB Q12 [facility] Last Admin: 03/31/17 10:59 Dose: 200 mls/hr Magnesium Hydroxide (Milk Of Magnesia) 0 ml GT DAILY PRN PRN Reason: EXCORIATION Mesalamine (Delzicol) 800 mg PO DAILY [facility] Last Admin: 03/31/17 10:58 Dose: 800 mg Pantoprazole Sodium (Protonix Ec Tab) 40 mg PO DAILY [facility] Last Admin: 03/31/17 10:57 Dose: 40 mg - Labs Labs: 03/26/17 04:38 03/26/17 04:38 PT 12.0 SECONDS (9.7-12.2) 03/25/17 15:09 INR 1.1 03/25/17 15:09 APTT 41 SECONDS (21-34) H 03/27/17 07:50 - Constitutional Appears: Well - Head Exam Head Exam: ATRAUMATIC, NORMAL INSPECTION, NORMOCEPHALIC - Eye Exam Eye Exam: EOMI, Normal appearance, PERRL Pupil Exam: NORMAL ACCOMODATION, PERRL - ENT Exam ENT Exam: Mucous Membranes Moist, Normal Exam - Neck Exam Neck Exam: Full ROM, Normal Inspection. absent: Lymphadenopathy - Respiratory Exam Respiratory Exam: Decreased Breath Sounds - Cardiovascular Exam Cardiovascular Exam: REGULAR RHYTHM, +S1, +S2 - GI/Abdominal Exam GI & Abdominal Exam: Soft, Diminished Bowel Sounds - Rectal Exam Rectal Exam: Deferred Assessment and Plan (1) Abscess Status: Acute (2) Crohn disease Status: Acute (3) Pulmonary embolism Status: Acute (4) Abdominal pain Status: Acute (5) Constipation Status: Acute (6) DVT (deep venous thrombosis) Status: Acute (7) Diarrhea Status: Acute (8) Diarrhea Status: Acute (9) Encounter for wound care Status: Acute (10) Fever Status: Acute (11) Foreign body Status: Acute (12) Intractable abdominal pain Status: Acute (13) Intractable pain Status: Acute (14) Prophylactic measure Status: Acute (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
[2017-04-01] MEDS: DiphenhydrAMINE 50 mg/ml Inj IVP PRN ×7 (03:03→22:27)
[2017-04-01] MEDS: HYDROmorphone 1 mg/ml ISec IVP PRN ×7 (03:04→22:27)
[2017-04-01] MEDS: Linezolid 600 mg in D5W 300 ml 600 MG/300 ML BAG IVPB SCH ×2 (09:29→22:28)
[2017-04-01] MEDS: Pantoprazole 40 mg EC Tab PO SCH (09:30)
[2017-04-01 13:18] LABS: BASO % 0.4 % (0.0-2.0); EOS # 0.5 K/uL (0.0-0.7); EOS % 3.8 % (0.0-4.0); HEMATOCRIT 33.9 % (35.0-51.0); LYMPH # 2.5 K/uL (1.0-4.3); MEAN CELL VOLUME 69.6 fL (80.0-94.0); MEAN CORPUSCULAR HEMOGLOBIN 20.9 pg (27.0-31.0); MEAN PLATELET VOLUME 8.1 fL (7.2-11.7); MONO # 0.5 K/uL (0.0-0.8); MONO % 4.2 % (0.0-10.0); RED CELL DISTRIBUTION WIDTH 18.4 % (11.5-14.5); WHITE BLOOD COUNT 12.5 K/uL (4.8-10.8)
[2017-04-01 13:31] LABS: ALB/GLOB RATIO 1.1 (1.0-2.1); ALKALINE PHOSPHATASE 89 U/L (38-126); ALT/SGPT 23 U/L (21-72); AST/SGOT 21 U/L (17-59); BILIRUBIN,TOTAL 0.3 mg/dL (0.2-1.3); BLOOD UREA NITROGEN 9 mg/dL (9-20); CALCIUM 8.9 mg/dl (8.6-10.4); CARBON DIOXIDE 25 mmol/L (22-30); CHLORIDE 99 mmol/L (98-107); GFR AFRICAN-AMERICAN > 60; GLUCOSE,RANDOM 86 mg/dL (75-110); POTASSIUM 3.8 mmol/L (3.6-5.2); SODIUM 137 mmol/L (132-148); TOTAL PROTEIN 7.2 g/dL (6.3-8.3)
--- NOTE | 2017-04-01 19:00 | CP.PCM.PN ---
Subjective - Date & Time of Evaluation Date of Evaluation: 04/01/17 Time of Evaluation: 10:20 - Subjective Subjective: clinically same Objective - Vital Signs/Intake and Output Vital Signs (last 24 hours): Temp Pulse Resp BP Pulse Ox 98.4 F 100 H 20 107/74 99 04/01/17 17:00 04/01/17 17:00 04/01/17 17:00 04/01/17 17:00 04/01/17 17:00 Intake and Output: 04/01/17 04/02/17 18:59 06:59 Intake Total 750 Balance 750 - Medications Medications: Current Medications Acetaminophen (Tylenol 325mg Tab) 975 mg PO Q8 [facility] Last Admin: 04/01/17 14:28 Dose: Not Given Apixaban (Eliquis) 5 mg PO BID [facility] Last Admin: 04/01/17 18:11 Dose: 5 mg Cyanocobalamin (Vitamin B12 1000 Mcg Tab) 1,000 mcg PO DAILY [facility] Last Admin: 04/01/17 09:31 Dose: 1,000 mcg Diphenhydramine HCl (Benadryl) 25 mg IVP Q3 PRN PRN Reason: Itching / Pruritus Last Admin: 04/01/17 16:11 Dose: 25 mg Ferrous Sulfate (Feosol) 325 mg PO BID [facility] Last Admin: 04/01/17 18:11 Dose: 325 mg Hydromorphone HCl (Dilaudid) 1 mg IVP Q3 PRN PRN Reason: Pain Last Admin: 04/01/17 16:12 Dose: 1 mg Linezolid (Zyvox 600mg/300ml D5w) 600 mg in 300 mls @ 200 mls/hr IVPB Q12 [facility] Last Admin: 04/01/17 09:29 Dose: 200 mls/hr Magnesium Hydroxide (Milk Of Magnesia) 0 ml GT DAILY PRN PRN Reason: EXCORIATION Mesalamine (Delzicol) 800 mg PO DAILY [facility] Last Admin: 04/01/17 09:34 Dose: 800 mg Pantoprazole Sodium (Protonix Ec Tab) 40 mg PO DAILY [facility] Last Admin: 04/01/17 09:30 Dose: 40 mg - Labs Labs: 04/01/17 13:12 04/01/17 13:12 PT 12.0 SECONDS (9.7-12.2) 03/25/17 15:09 INR 1.1 03/25/17 15:09 APTT 41 SECONDS (21-34) H 03/27/17 07:50 - Constitutional Appears: Well - Head Exam Head Exam: ATRAUMATIC, NORMAL INSPECTION, NORMOCEPHALIC - Eye Exam Eye Exam: EOMI, Normal appearance, PERRL Pupil Exam: NORMAL ACCOMODATION, PERRL - ENT Exam ENT Exam: Mucous Membranes Moist, Normal Exam - Neck Exam Neck Exam: Full ROM, Normal Inspection. absent: Lymphadenopathy - Respiratory Exam Respiratory Exam: Decreased Breath Sounds - Cardiovascular Exam Cardiovascular Exam: REGULAR RHYTHM, +S1, +S2 - GI/Abdominal Exam GI & Abdominal Exam: Soft, Diminished Bowel Sounds - Rectal Exam Rectal Exam: Deferred Assessment and Plan (1) Abscess Status: Acute (2) Crohn disease Status: Acute (3) Pulmonary embolism Status: Acute (4) Abdominal pain Status: Acute (5) Constipation Status: Acute (6) DVT (deep venous thrombosis) Status: Acute (7) Diarrhea Status: Acute (8) Diarrhea Status: Acute (9) Encounter for wound care Status: Acute (10) Fever Status: Acute (11) Foreign body Status: Acute (12) Intractable abdominal pain Status: Acute (13) Intractable pain Status: Acute (14) Prophylactic measure Status: Acute (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
[2017-04-02] MEDS: DiphenhydrAMINE 50 mg/ml Inj IVP PRN ×8 (01:29→23:59)
[2017-04-02] MEDS: HYDROmorphone 1 mg/ml ISec IVP PRN ×7 (01:30→20:42)
--- NOTE | 2017-04-02 07:46 | CP.PCM.PN ---
Subjective - Date & Time of Evaluation Date of Evaluation: 04/02/17 Time of Evaluation: 07:46 - Subjective Subjective: Medicine Progress Note for Dr. Barrett's Service Pt seen and examined at bedside. He is tolerating PO intake but states that he seeing loose stools in his ostomy bag. He denies any acute changes in clinical status including f/c/n/v/cp/sob. No acute events overnight as per nursing staff. Culture results noted; patient maintained under contact precautions. Objective - Vital Signs/Intake and Output Vital Signs (last 24 hours): Temp Pulse Resp BP Pulse Ox 97.9 F 104 H 20 113/79 99 04/01/17 23:20 04/01/17 23:20 04/01/17 23:20 04/01/17 23:20 04/01/17 23:20 Intake and Output: 04/02/17 04/02/17 06:59 18:59 Intake Total 350 Output Total 500 Balance -150 - Medications Medications: Current Medications Acetaminophen (Tylenol 325mg Tab) 975 mg PO Q8 [facility] Last Admin: 04/01/17 22:28 Dose: Not Given Apixaban (Eliquis) 5 mg PO BID [facility] Last Admin: 04/01/17 18:11 Dose: 5 mg Cyanocobalamin (Vitamin B12 1000 Mcg Tab) 1,000 mcg PO DAILY [facility] Last Admin: 04/01/17 09:31 Dose: 1,000 mcg Diphenhydramine HCl (Benadryl) 25 mg IVP Q3 PRN PRN Reason: Itching / Pruritus Last Admin: 04/02/17 04:52 Dose: 25 mg Ferrous Sulfate (Feosol) 325 mg PO BID [facility] Last Admin: 04/01/17 18:11 Dose: 325 mg Hydromorphone HCl (Dilaudid) 1 mg IVP Q3 PRN PRN Reason: Pain Last Admin: 04/02/17 04:52 Dose: 1 mg Linezolid (Zyvox 600mg/300ml D5w) 600 mg in 300 mls @ 200 mls/hr IVPB Q12 [facility] Last Admin: 04/01/17 22:28 Dose: 200 mls/hr Magnesium Hydroxide (Milk Of Magnesia) 0 ml GT DAILY PRN PRN Reason: EXCORIATION Mesalamine (Delzicol) 800 mg PO DAILY [facility] Last Admin: 04/01/17 09:34 Dose: 800 mg Pantoprazole Sodium (Protonix Ec Tab) 40 mg PO DAILY [facility] Last Admin: 04/01/17 09:30 Dose: 40 mg - Labs Labs: 04/01/17 13:12 04/01/17 13:12 PT 12.0 SECONDS (9.7-12.2) 03/25/17 15:09 INR 1.1 03/25/17 15:09 APTT 41 SECONDS (21-34) H 03/27/17 07:50 - Constitutional Appears: No Acute Distress - Head Exam Head Exam: ATRAUMATIC, NORMAL INSPECTION - Eye Exam Eye Exam: EOMI - ENT Exam ENT Exam: Mucous Membranes Moist - Respiratory Exam Respiratory Exam: Clear to Ausculation Bilateral, NORMAL BREATHING PATTERN - Cardiovascular Exam Cardiovascular Exam: REGULAR RHYTHM, +S1, +S2 - GI/Abdominal Exam GI & Abdominal Exam: Soft, Tenderness (appropriately; ostomy bag with diarrhea) - Extremities Exam Extremities Exam: absent: Calf Tenderness - Neurological Exam Neurological Exam: Alert, Awake, Oriented x3 - Skin Additional comments: rectal ulcers Assessment and Plan - Assessment and Plan (Free Text) Plan: Crohns s/p perianal I&D POD 6 Follow up further recs per Dr. Taylor Currently monitoring ostomy output- loose stools daily dressing changes as per surgery dilauded 1mg IVP q3hrs prn ID consulted- Dr. 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 Galvin; recs appreciated Pulmonary embolism - small, no evidence of RV strain or enlargement, anticoagulate with NOAC Eliquis 5mg PO BID Will discuss work up as an outpatient when his greater issues are stable Echo- normal LV function- EF 65-70% Prophylaxis Continue Protonix Case discussed with Dr. Barrett. All management as per Dr. Barrett.
[2017-04-02] MEDS: Pantoprazole 40 mg EC Tab PO SCH (09:45)
[2017-04-02] MEDS: Linezolid 600 mg in D5W 300 ml 600 MG/300 ML BAG IVPB SCH ×2 (09:45→22:29)
--- NOTE | 2017-04-02 16:27 | CP.PCM.PN ---
Subjective - Date & Time of Evaluation Date of Evaluation: 04/02/17 Time of Evaluation: 10:20 - Subjective Subjective: clinically same Objective - Vital Signs/Intake and Output Vital Signs (last 24 hours): Temp Pulse Resp BP Pulse Ox 98.4 F 100 H 18 114/73 99 04/02/17 07:59 04/02/17 14:13 04/02/17 07:59 04/02/17 14:13 04/02/17 07:59 Intake and Output: 04/02/17 04/02/17 06:59 18:59 Intake Total 350 800 Output Total 500 900 Balance -150 -100 - Medications Medications: Current Medications Acetaminophen (Tylenol 325mg Tab) 975 mg PO Q8 [facility] Last Admin: 04/02/17 15:00 Dose: Not Given Apixaban (Eliquis) 5 mg PO BID [facility] Last Admin: 04/02/17 09:45 Dose: 5 mg Cyanocobalamin (Vitamin B12 1000 Mcg Tab) 1,000 mcg PO DAILY [facility] Last Admin: 04/02/17 09:45 Dose: 1,000 mcg Diphenhydramine HCl (Benadryl) 25 mg IVP Q3 PRN PRN Reason: Itching / Pruritus Last Admin: 04/02/17 14:13 Dose: 25 mg Ferrous Sulfate (Feosol) 325 mg PO BID [facility] Last Admin: 04/02/17 09:45 Dose: 325 mg Hydromorphone HCl (Dilaudid) 1 mg IVP Q3 PRN PRN Reason: Pain Last Admin: 04/02/17 14:14 Dose: 1 mg Linezolid (Zyvox 600mg/300ml D5w) 600 mg in 300 mls @ 200 mls/hr IVPB Q12 [facility] Last Admin: 04/02/17 09:45 Dose: 200 mls/hr Magnesium Hydroxide (Milk Of Magnesia) 0 ml GT DAILY PRN PRN Reason: EXCORIATION Mesalamine (Delzicol) 800 mg PO DAILY [facility] Last Admin: 04/02/17 09:45 Dose: 800 mg Pantoprazole Sodium (Protonix Ec Tab) 40 mg PO DAILY [facility] Last Admin: 04/02/17 09:45 Dose: 40 mg - Labs Labs: 04/01/17 13:12 04/01/17 13:12 PT 12.0 SECONDS (9.7-12.2) 03/25/17 15:09 INR 1.1 03/25/17 15:09 APTT 41 SECONDS (21-34) H 03/27/17 07:50 - Constitutional Appears: Well - Head Exam Head Exam: ATRAUMATIC, NORMAL INSPECTION, NORMOCEPHALIC - Eye Exam Eye Exam: EOMI, Normal appearance, PERRL Pupil Exam: NORMAL ACCOMODATION, PERRL - ENT Exam ENT Exam: Mucous Membranes Moist, Normal Exam - Neck Exam Neck Exam: Full ROM, Normal Inspection. absent: Lymphadenopathy - Respiratory Exam Respiratory Exam: Decreased Breath Sounds - Cardiovascular Exam Cardiovascular Exam: REGULAR RHYTHM, +S1, +S2 - GI/Abdominal Exam GI & Abdominal Exam: Soft, Diminished Bowel Sounds - Rectal Exam Rectal Exam: Deferred Assessment and Plan (1) Abscess Status: Acute (2) Crohn disease Status: Acute (3) Pulmonary embolism Status: Acute (4) Abdominal pain Status: Acute (5) Constipation Status: Acute (6) DVT (deep venous thrombosis) Status: Acute (7) Diarrhea Status: Acute (8) Diarrhea Status: Acute (9) Encounter for wound care Status: Acute (10) Fever Status: Acute (11) Foreign body Status: Acute (12) Intractable abdominal pain Status: Acute (13) Intractable pain Status: Acute (14) Prophylactic measure Status: Acute (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
[2017-04-03] MEDS: DiphenhydrAMINE 50 mg/ml Inj IVP PRN ×7 (03:02→22:09)
[2017-04-03] MEDS: HYDROmorphone 1 mg/ml ISec IVP PRN ×8 (03:03→22:08)
[2017-04-03 07:27] LABS: BASO # 0.1 K/uL (0.0-0.2); BASO % 0.7 % (0.0-2.0); EOS # 0.6 K/uL (0.0-0.7); EOS % 5.7 % (0.0-4.0); HEMATOCRIT 33.1 % (35.0-51.0); LYMPH # 3.6 K/uL (1.0-4.3); LYMPH % 36.1 % (20.0-40.0); MEAN CELL VOLUME 69.2 fL (80.0-94.0); MEAN CORPUSCULAR HEMOGLOBIN 21.7 pg (27.0-31.0); MEAN CORPUSCULAR HGB CONC 31.4 g/dL (33.0-37.0); MONO # 0.5 K/uL (0.0-0.8); NRBC % 0.1 % (0.0-2.0); RED CELL DISTRIBUTION WIDTH 18.4 % (11.5-14.5)
[2017-04-03 07:48] LABS: CHLORIDE 100 mmol/L (98-107); SODIUM 138 mmol/L (132-148)
[2017-04-03 07:49] LABS: POTASSIUM 4.1 mmol/L (3.6-5.2)
[2017-04-03 07:51] LABS: ALB/GLOB RATIO 1.1 (1.0-2.1); ALKALINE PHOSPHATASE 99 U/L (38-126); ALT/SGPT 23 U/L (21-72); AST/SGOT 22 U/L (17-59); BILIRUBIN,TOTAL 0.4 mg/dL (0.2-1.3); BLOOD UREA NITROGEN 8 mg/dL (9-20); CALCIUM 8.7 mg/dl (8.6-10.4); CARBON DIOXIDE 27 mmol/L (22-30); GFR AFRICAN-AMERICAN > 60; GLUCOSE,RANDOM 90 mg/dL (75-110); TOTAL PROTEIN 7.4 g/dL (6.3-8.3)
[2017-04-03] MEDS: Pantoprazole 40 mg EC Tab PO SCH (09:28)
[2017-04-03] MEDS: Linezolid 600 mg in D5W 300 ml 600 MG/300 ML BAG IVPB SCH ×2 (09:39→22:10)
--- NOTE | 2017-04-03 11:46 | CP.PCM.PN ---
Subjective - Date & Time of Evaluation Date of Evaluation: 04/03/17 Time of Evaluation: 09:55 - Subjective Subjective: Medicine Note- Dr. Barrett's service Patient was seen and examined at bedside. Patient reports no acute complaints at this time. He still has pain in his perineum. He is tolerating PO well, colostomy is still functioning well. No events overnight, per nursing. Objective - Vital Signs/Intake and Output Vital Signs (last 24 hours): Temp Pulse Resp BP Pulse Ox 97.9 F 88 20 110/76 100 04/03/17 08:46 04/03/17 09:25 04/03/17 08:46 04/03/17 09:25 04/03/17 08:46 - Medications Medications: Current Medications Acetaminophen (Tylenol 325mg Tab) 975 mg PO Q8 [facility] Last Admin: 04/02/17 22:38 Dose: Not Given Apixaban (Eliquis) 5 mg PO BID [facility] Last Admin: 04/03/17 09:29 Dose: 5 mg Cyanocobalamin (Vitamin B12 1000 Mcg Tab) 1,000 mcg PO DAILY [facility] Last Admin: 04/03/17 09:28 Dose: 1,000 mcg Diphenhydramine HCl (Benadryl) 25 mg IVP Q3 PRN PRN Reason: Itching / Pruritus Last Admin: 04/03/17 09:30 Dose: 25 mg Ferrous Sulfate (Feosol) 325 mg PO BID [facility] Last Admin: 04/03/17 09:29 Dose: 325 mg Hydromorphone HCl (Dilaudid) 1 mg IVP Q3 PRN PRN Reason: Pain Last Admin: 04/03/17 09:29 Dose: 1 mg Linezolid (Zyvox 600mg/300ml D5w) 600 mg in 300 mls @ 200 mls/hr IVPB Q12 [facility] Last Admin: 04/03/17 09:39 Dose: 200 mls/hr Magnesium Hydroxide (Milk Of Magnesia) 0 ml GT DAILY PRN PRN Reason: EXCORIATION Mesalamine (Delzicol) 800 mg PO DAILY [facility] Last Admin: 04/03/17 09:29 Dose: 800 mg Pantoprazole Sodium (Protonix Ec Tab) 40 mg PO DAILY [facility] Last Admin: 04/03/17 09:28 Dose: 40 mg - Labs Labs: 04/03/17 07:08 04/03/17 07:08 PT 12.0 SECONDS (9.7-12.2) 03/25/17 15:09 INR 1.1 03/25/17 15:09 APTT 41 SECONDS (21-34) H 03/27/17 07:50 - Constitutional Appears: Non-toxic, No Acute Distress - Head Exam Head Exam: ATRAUMATIC, NORMAL INSPECTION, NORMOCEPHALIC - Eye Exam Pupil Exam: NORMAL ACCOMODATION - ENT Exam ENT Exam: Mucous Membranes Moist - Respiratory Exam Respiratory Exam: Clear to Ausculation Bilateral, NORMAL BREATHING PATTERN. absent: Prolonged Expiratory Phase, Rales, Rhonchi, Wheezes - Cardiovascular Exam Cardiovascular Exam: REGULAR RHYTHM, +S1, +S2 - GI/Abdominal Exam GI & Abdominal Exam: Soft, Normal Bowel Sounds. absent: Diminished Bowel Sounds , Hernia, Hypoactive Bowel Sounds Additional comments: colostomy functioning and in place - Exam Exam: absent: NORMAL INSPECTION External exam: absent: NORMAL EXTERNAL EXAM - Neurological Exam Neurological Exam: Alert, Awake, Oriented x3 - Psychiatric Exam Psychiatric exam: Normal Affect, Normal Mood - Skin Skin Exam: Dry, Intact, Normal Color, Warm Assessment and Plan - Assessment and Plan (Free Text) Assessment: Crohns s/p perianal I&D POD 7 Follow up further recs per Dr. Taylor Currently monitoring ostomy output- loose stools daily dressing changes as per surgery dilauded 1mg IVP q3hrs prn ID consulted- Dr. 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 Galvin; recs appreciated Pulmonary embolism - small, no evidence of RV strain or enlargement, anticoagulate with NOAC Eliquis 5mg PO BID Will discuss work up as an outpatient when his greater issues are stable Echo- normal LV function- EF 65-70% Prophylaxis Continue Protonix on full anticoagulation- NOAC Case discussed with Dr. Barrett. All management as per Dr. Barrett.
--- NOTE | 2017-04-03 17:53 | CP.PCM.PN ---
Subjective - Date & Time of Evaluation Date of Evaluation: 04/03/17 Time of Evaluation: 10:00 - Subjective Subjective: clinically same Objective - Vital Signs/Intake and Output Vital Signs (last 24 hours): Temp Pulse Resp BP Pulse Ox 98.1 F 114 H 18 108/73 100 04/03/17 15:35 04/03/17 15:35 04/03/17 15:35 04/03/17 15:35 04/03/17 15:35 Intake and Output: 04/03/17 04/03/17 06:59 18:59 Intake Total 500 Output Total 300 Balance 200 - Medications Medications: Current Medications Acetaminophen (Tylenol 325mg Tab) 975 mg PO Q8 [facility] Last Admin: 04/03/17 13:25 Dose: Not Given Apixaban (Eliquis) 5 mg PO BID [facility] Last Admin: 04/03/17 09:29 Dose: 5 mg Cyanocobalamin (Vitamin B12 1000 Mcg Tab) 1,000 mcg PO DAILY [facility] Last Admin: 04/03/17 09:28 Dose: 1,000 mcg Diphenhydramine HCl (Benadryl) 25 mg IVP Q3 PRN PRN Reason: Itching / Pruritus Last Admin: 04/03/17 15:51 Dose: 25 mg Ferrous Sulfate (Feosol) 325 mg PO BID [facility] Last Admin: 04/03/17 09:29 Dose: 325 mg Hydromorphone HCl (Dilaudid) 1 mg IVP Q3 PRN PRN Reason: Pain Last Admin: 04/03/17 15:51 Dose: 1 mg Linezolid (Zyvox 600mg/300ml D5w) 600 mg in 300 mls @ 200 mls/hr IVPB Q12 [facility] Last Admin: 04/03/17 09:39 Dose: 200 mls/hr Magnesium Hydroxide (Milk Of Magnesia) 0 ml GT DAILY PRN PRN Reason: EXCORIATION Mesalamine (Delzicol) 800 mg PO DAILY [facility] Last Admin: 04/03/17 09:29 Dose: 800 mg Pantoprazole Sodium (Protonix Ec Tab) 40 mg PO DAILY [facility] Last Admin: 04/03/17 09:28 Dose: 40 mg - Labs Labs: 04/03/17 07:08 04/03/17 07:08 PT 12.0 SECONDS (9.7-12.2) 03/25/17 15:09 INR 1.1 03/25/17 15:09 APTT 41 SECONDS (21-34) H 03/27/17 07:50 - Constitutional Appears: Well - Head Exam Head Exam: ATRAUMATIC, NORMAL INSPECTION, NORMOCEPHALIC - Eye Exam Eye Exam: EOMI, Normal appearance, PERRL Pupil Exam: NORMAL ACCOMODATION, PERRL - ENT Exam ENT Exam: Mucous Membranes Moist, Normal Exam - Neck Exam Neck Exam: Full ROM, Normal Inspection. absent: Lymphadenopathy - Respiratory Exam Respiratory Exam: Decreased Breath Sounds - Cardiovascular Exam Cardiovascular Exam: REGULAR RHYTHM, +S1, +S2 - GI/Abdominal Exam GI & Abdominal Exam: Soft, Diminished Bowel Sounds - Rectal Exam Rectal Exam: Deferred Assessment and Plan (1) Abscess Status: Acute (2) Crohn disease Status: Acute (3) Pulmonary embolism Status: Acute (4) Abdominal pain Status: Acute (5) Constipation Status: Acute (6) DVT (deep venous thrombosis) Status: Acute (7) Diarrhea Status: Acute (8) Diarrhea Status: Acute (9) Encounter for wound care Status: Acute (10) Fever Status: Acute (11) Foreign body Status: Acute (12) Intractable abdominal pain Status: Acute (13) Intractable pain Status: Acute (14) Prophylactic measure Status: Acute (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
--- NOTE | 2017-04-03 18:08 | CP.PCM.PN ---
Subjective - Date & Time of Evaluation Date of Evaluation: 04/03/17 Time of Evaluation: 03:05 - Subjective Subjective: dictated Objective - Vital Signs/Intake and Output Vital Signs (last 24 hours): Temp Pulse Resp BP Pulse Ox 98.1 F 114 H 18 108/73 100 04/03/17 15:35 04/03/17 15:35 04/03/17 15:35 04/03/17 15:35 04/03/17 15:35 Intake and Output: 04/03/17 04/03/17 06:59 18:59 Intake Total 500 Output Total 300 Balance 200 - Medications Medications: Current Medications Acetaminophen (Tylenol 325mg Tab) 975 mg PO Q8 [facility] Last Admin: 04/03/17 13:25 Dose: Not Given Apixaban (Eliquis) 5 mg PO BID [facility] Last Admin: 04/03/17 18:01 Dose: 5 mg Cyanocobalamin (Vitamin B12 1000 Mcg Tab) 1,000 mcg PO DAILY [facility] Last Admin: 04/03/17 09:28 Dose: 1,000 mcg Diphenhydramine HCl (Benadryl) 25 mg IVP Q3 PRN PRN Reason: Itching / Pruritus Last Admin: 04/03/17 15:51 Dose: 25 mg Ferrous Sulfate (Feosol) 325 mg PO BID [facility] Last Admin: 04/03/17 18:01 Dose: 325 mg Hydromorphone HCl (Dilaudid) 1 mg IVP Q3 PRN PRN Reason: Pain Last Admin: 04/03/17 15:51 Dose: 1 mg Linezolid (Zyvox 600mg/300ml D5w) 600 mg in 300 mls @ 200 mls/hr IVPB Q12 [facility] Last Admin: 04/03/17 09:39 Dose: 200 mls/hr Magnesium Hydroxide (Milk Of Magnesia) 0 ml GT DAILY PRN PRN Reason: EXCORIATION Mesalamine (Delzicol) 800 mg PO DAILY [facility] Last Admin: 04/03/17 09:29 Dose: 800 mg Pantoprazole Sodium (Protonix Ec Tab) 40 mg PO DAILY [facility] Last Admin: 04/03/17 09:28 Dose: 40 mg - Labs Labs: 04/03/17 07:08 04/03/17 07:08 PT 12.0 SECONDS (9.7-12.2) 03/25/17 15:09 INR 1.1 03/25/17 15:09 APTT 41 SECONDS (21-34) H 03/27/17 07:50
--- NOTE | 2017-04-03 22:31 | PN ---
DATE: SUBJECTIVE: The patient was seen today. He was admitted again with the abscesses and he had a drain. He is on IV Zyvox at this time. He remains in bed, but he says he is not able to walk because of the friction between his buttocks and he has had new abscesses. At this time, it was MRSA, again he is on Zyvox and hopefully, he will improve with that. PHYSICAL EXAMINATION VITAL SIGNS: T-max is 98.1, pulse 114, blood pressure 108/73, respirations 18. HEENT: Atraumatic and normocephalic. NECK: Supple. CARDIOPULMONARY: S1 and S2, tachycardia. LUNGS: Clear. No crackles or rales present. ABDOMEN: Soft, nontender, no guarding, no rigidity present. He has a colostomy bag and remains with perineal abscesses. EXTREMITIES: No edema. LABORATORY DATA: White count is 10, hemoglobin 10.4, hematocrit 33.1, platelet count 445. BUN 16, creatinine 0.8. MEDICATIONS: He is on Eliquis 5 mg b.i.d., Tylenol, B12, Benadryl, Feosol, Dilaudid and he is on Zyvox and MOM p.r.n. IMPRESSION: He is admitted with perineal abscesses and Crohn's disease, history of pulmonary embolism, abdominal pain, and he had a deep venous thrombosis recently, so we will continue all these medications at this time and we will follow and when it is appropriate from the surgeon, we will discharge him home. At this time, he was started on Zyvox on 03/29/2017 and today is 04/03/2017 today is only 5 days after the Zyvox. Santosh Daniel MD
[2017-04-04] MEDS: HYDROmorphone 1 mg/ml ISec IVP PRN ×8 (01:06→23:00)
[2017-04-04] MEDS: DiphenhydrAMINE 50 mg/ml Inj IVP PRN ×8 (01:06→23:00)
[2017-04-04] MEDS: Pantoprazole 40 mg EC Tab PO SCH (10:20)
[2017-04-04] MEDS: Linezolid 600 mg in D5W 300 ml 600 MG/300 ML BAG IVPB SCH ×2 (10:23→23:00)
--- NOTE | 2017-04-04 11:40 | CP.PCM.PN ---
Subjective - Date & Time of Evaluation Date of Evaluation: 04/04/17 Time of Evaluation: 11:00 - Subjective Subjective: clinically same Objective - Vital Signs/Intake and Output Vital Signs (last 24 hours): Temp Pulse Resp BP Pulse Ox 98 F 102 H 20 104/73 96 04/04/17 07:00 04/04/17 10:18 04/04/17 07:00 04/04/17 10:18 04/04/17 07:00 Intake and Output: 04/04/17 04/04/17 06:59 18:59 Intake Total 400 Output Total 1150 Balance -750 - Medications Medications: Current Medications Acetaminophen (Tylenol 325mg Tab) 975 mg PO Q8 [facility] Last Admin: 04/04/17 06:09 Dose: Not Given Apixaban (Eliquis) 5 mg PO BID [facility] Last Admin: 04/04/17 10:20 Dose: 5 mg Cyanocobalamin (Vitamin B12 1000 Mcg Tab) 1,000 mcg PO DAILY [facility] Last Admin: 04/04/17 10:21 Dose: 1,000 mcg Diphenhydramine HCl (Benadryl) 25 mg IVP Q3 PRN PRN Reason: Itching / Pruritus Last Admin: 04/04/17 10:21 Dose: 25 mg Ferrous Sulfate (Feosol) 325 mg PO BID [facility] Last Admin: 04/04/17 10:21 Dose: 325 mg Hydromorphone HCl (Dilaudid) 1 mg IVP Q3 PRN PRN Reason: Pain Last Admin: 04/04/17 10:21 Dose: 1 mg Linezolid (Zyvox 600mg/300ml D5w) 600 mg in 300 mls @ 200 mls/hr IVPB Q12 [facility] Last Admin: 04/04/17 10:23 Dose: 200 mls/hr Magnesium Hydroxide (Milk Of Magnesia) 0 ml GT DAILY PRN PRN Reason: EXCORIATION Mesalamine (Delzicol) 800 mg PO DAILY [facility] Last Admin: 04/04/17 10:20 Dose: 800 mg Pantoprazole Sodium (Protonix Ec Tab) 40 mg PO DAILY [facility] Last Admin: 04/04/17 10:20 Dose: 40 mg - Labs Labs: 04/03/17 07:08 04/03/17 07:08 PT 12.0 SECONDS (9.7-12.2) 03/25/17 15:09 INR 1.1 03/25/17 15:09 APTT 41 SECONDS (21-34) H 03/27/17 07:50 - Constitutional Appears: Well - Head Exam Head Exam: ATRAUMATIC, NORMAL INSPECTION, NORMOCEPHALIC - Eye Exam Eye Exam: EOMI, Normal appearance, PERRL Pupil Exam: NORMAL ACCOMODATION, PERRL - ENT Exam ENT Exam: Mucous Membranes Moist, Normal Exam - Neck Exam Neck Exam: Full ROM, Normal Inspection. absent: Lymphadenopathy - Respiratory Exam Respiratory Exam: Decreased Breath Sounds - Cardiovascular Exam Cardiovascular Exam: REGULAR RHYTHM, +S1, +S2 - GI/Abdominal Exam GI & Abdominal Exam: Soft, Diminished Bowel Sounds - Rectal Exam Rectal Exam: Deferred Assessment and Plan (1) Abscess Status: Acute (2) Crohn disease Status: Acute (3) Pulmonary embolism Status: Acute (4) Abdominal pain Status: Acute (5) Constipation Status: Acute (6) DVT (deep venous thrombosis) Status: Acute (7) Diarrhea Status: Acute (8) Diarrhea Status: Acute (9) Encounter for wound care Status: Acute (10) Fever Status: Acute (11) Foreign body Status: Acute (12) Intractable abdominal pain Status: Acute (13) Intractable pain Status: Acute (14) Prophylactic measure Status: Acute (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
[2017-04-05] MEDS: DiphenhydrAMINE 50 mg/ml Inj IVP PRN ×7 (02:02→20:45)
[2017-04-05] MEDS: HYDROmorphone 1 mg/ml ISec IVP PRN ×7 (02:02→20:45)
[2017-04-05] MEDS: Pantoprazole 40 mg EC Tab PO SCH (09:25)
[2017-04-05] MEDS: Linezolid 600 mg in D5W 300 ml 600 MG/300 ML BAG IVPB SCH ×2 (09:26→21:24)
--- NOTE | 2017-04-05 09:57 | CP.PCM.PN ---
Subjective - Date & Time of Evaluation Date of Evaluation: 04/05/17 Time of Evaluation: 11:40 - Subjective Subjective: clinically same Objective - Vital Signs/Intake and Output Vital Signs (last 24 hours): Temp Pulse Resp BP Pulse Ox 98.1 F 83 18 109/67 100 04/05/17 07:25 04/05/17 08:21 04/05/17 07:25 04/05/17 08:21 04/05/17 07:25 Intake and Output: 04/05/17 04/05/17 06:59 18:59 Intake Total 920 Output Total 625 Balance 295 - Medications Medications: Current Medications Acetaminophen (Tylenol 325mg Tab) 975 mg PO Q8 [facility] Last Admin: 04/05/17 05:34 Dose: Not Given Apixaban (Eliquis) 5 mg PO BID [facility] Last Admin: 04/05/17 09:26 Dose: 5 mg Cyanocobalamin (Vitamin B12 1000 Mcg Tab) 1,000 mcg PO DAILY [facility] Last Admin: 04/05/17 09:26 Dose: 1,000 mcg Diphenhydramine HCl (Benadryl) 25 mg IVP Q3 PRN PRN Reason: Itching / Pruritus Last Admin: 04/05/17 08:23 Dose: 25 mg Ferrous Sulfate (Feosol) 325 mg PO BID [facility]S [facility] Last Admin: 04/05/17 09:25 Dose: 325 mg Hydromorphone HCl (Dilaudid) 1 mg IVP Q3 PRN PRN Reason: Pain Last Admin: 04/05/17 08:23 Dose: 1 mg Linezolid (Zyvox 600mg/300ml D5w) 600 mg in 300 mls @ 200 mls/hr IVPB Q12 [facility] Last Admin: 04/05/17 09:26 Dose: 200 mls/hr Magnesium Hydroxide (Milk Of Magnesia) 0 ml GT DAILY PRN PRN Reason: EXCORIATION Mesalamine (Delzicol) 800 mg PO DAILY [facility] Last Admin: 04/05/17 09:26 Dose: 800 mg Pantoprazole Sodium (Protonix Ec Tab) 40 mg PO DAILY [facility] Last Admin: 04/05/17 09:25 Dose: 40 mg - Labs Labs: 04/03/17 07:08 04/03/17 07:08 PT 12.0 SECONDS (9.7-12.2) 03/25/17 15:09 INR 1.1 03/25/17 15:09 APTT 41 SECONDS (21-34) H 03/27/17 07:50 - Constitutional Appears: Well - Head Exam Head Exam: ATRAUMATIC, NORMAL INSPECTION, NORMOCEPHALIC - Eye Exam Eye Exam: EOMI, Normal appearance, PERRL Pupil Exam: NORMAL ACCOMODATION, PERRL - ENT Exam ENT Exam: Mucous Membranes Moist, Normal Exam - Neck Exam Neck Exam: Full ROM, Normal Inspection. absent: Lymphadenopathy - Respiratory Exam Respiratory Exam: Decreased Breath Sounds - Cardiovascular Exam Cardiovascular Exam: REGULAR RHYTHM, +S2 - GI/Abdominal Exam GI & Abdominal Exam: Soft, Diminished Bowel Sounds - Rectal Exam Rectal Exam: Deferred Assessment and Plan (1) Abscess Status: Acute (2) Crohn disease Status: Acute (3) Pulmonary embolism Status: Acute (4) Abdominal pain Status: Acute (5) Constipation Status: Acute (6) DVT (deep venous thrombosis) Status: Acute (7) Diarrhea Status: Acute (8) Diarrhea Status: Acute (9) Encounter for wound care Status: Acute (10) Fever Status: Acute (11) Foreign body Status: Acute (12) Intractable abdominal pain Status: Acute (13) Intractable pain Status: Acute (14) Prophylactic measure Status: Acute (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
--- NOTE | 2017-04-05 13:16 | CP.PCM.PN ---
Subjective - Date & Time of Evaluation Date of Evaluation: 04/05/17 Time of Evaluation: 08:00 - Subjective Subjective: discussed on rounds cont rx Objective - Vital Signs/Intake and Output Vital Signs (last 24 hours): Temp Pulse Resp BP Pulse Ox 98.1 F 100 H 18 113/75 100 04/05/17 07:25 04/05/17 11:32 04/05/17 07:25 04/05/17 11:32 04/05/17 07:25 Intake and Output: 04/05/17 04/05/17 06:59 18:59 Intake Total 920 Output Total 625 Balance 295 - Medications Medications: Current Medications Acetaminophen (Tylenol 325mg Tab) 975 mg PO Q8 [facility] Last Admin: 04/05/17 05:34 Dose: Not Given Apixaban (Eliquis) 5 mg PO BID [facility] Last Admin: 04/05/17 09:26 Dose: 5 mg Cyanocobalamin (Vitamin B12 1000 Mcg Tab) 1,000 mcg PO DAILY [facility] Last Admin: 04/05/17 09:26 Dose: 1,000 mcg Diphenhydramine HCl (Benadryl) 25 mg IVP Q3 PRN PRN Reason: Itching / Pruritus Last Admin: 04/05/17 11:34 Dose: 25 mg Ferrous Sulfate (Feosol) 325 mg PO BID [facility] Last Admin: 04/05/17 09:25 Dose: 325 mg Hydromorphone HCl (Dilaudid) 1 mg IVP Q3 PRN PRN Reason: Pain Last Admin: 04/05/17 11:34 Dose: 1 mg Linezolid (Zyvox 600mg/300ml D5w) 600 mg in 300 mls @ 200 mls/hr IVPB Q12 [facility] Last Admin: 04/05/17 09:26 Dose: 200 mls/hr Magnesium Hydroxide (Milk Of Magnesia) 0 ml GT DAILY PRN PRN Reason: EXCORIATION Mesalamine (Delzicol) 800 mg PO DAILY [facility] Last Admin: 04/05/17 09:26 Dose: 800 mg Pantoprazole Sodium (Protonix Ec Tab) 40 mg PO DAILY [facility] Last Admin: 04/05/17 09:25 Dose: 40 mg - Labs Labs: 04/03/17 07:08 04/03/17 07:08 PT 12.0 SECONDS (9.7-12.2) 03/25/17 15:09 INR 1.1 03/25/17 15:09 APTT 41 SECONDS (21-34) H 03/27/17 07:50 - Constitutional Appears: Non-toxic, Cachectic, Chronically Ill - Head Exam Head Exam: NORMOCEPHALIC - Eye Exam Eye Exam: PERRL - ENT Exam ENT Exam: Mucous Membranes Dry, Normal External Ear Exam - Neck Exam Neck Exam: absent: Lymphadenopathy - Respiratory Exam Respiratory Exam: Decreased Breath Sounds - Cardiovascular Exam Cardiovascular Exam: REGULAR RHYTHM - GI/Abdominal Exam GI & Abdominal Exam: Distended, Soft - Rectal Exam Rectal Exam: Deferred - Exam Exam: NORMAL INSPECTION Assessment and Plan (1) Abdominal pain Status: Acute (2) Abscess Status: Acute (3) Crohn disease Status: Acute (4) DVT (deep venous thrombosis) Status: Acute (5) Wound of right buttock Status: Acute (6) Pulmonary embolism Status: Acute
[2017-04-06] MEDS: DiphenhydrAMINE 50 mg/ml Inj IVP PRN ×8 (00:28→22:36)
[2017-04-06] MEDS: HYDROmorphone 1 mg/ml ISec IVP PRN ×8 (00:29→22:36)
[2017-04-06] MEDS: Pantoprazole 40 mg EC Tab PO SCH (10:02)
[2017-04-06] MEDS: Linezolid 600 mg in D5W 300 ml 600 MG/300 ML BAG IVPB SCH ×2 (10:07→22:33)
--- NOTE | 2017-04-06 13:20 | CP.PCM.PN ---
Subjective - Date & Time of Evaluation Date of Evaluation: 04/06/17 Time of Evaluation: 11:40 - Subjective Subjective: clinically same Objective - Vital Signs/Intake and Output Vital Signs (last 24 hours): Temp Pulse Resp BP Pulse Ox 98.2 F 86 18 117/83 100 04/06/17 08:25 04/06/17 13:05 04/06/17 08:25 04/06/17 13:05 04/06/17 08:25 Intake and Output: 04/06/17 04/06/17 06:59 18:59 Intake Total 820 Output Total 300 Balance 520 - Medications Medications: Current Medications Acetaminophen (Tylenol 325mg Tab) 975 mg PO Q8 [facility] Last Admin: 04/06/17 13:09 Dose: Not Given Apixaban (Eliquis) 5 mg PO BID [facility] Last Admin: 04/06/17 10:03 Dose: 5 mg Cyanocobalamin (Vitamin B12 1000 Mcg Tab) 1,000 mcg PO DAILY [facility] Last Admin: 04/06/17 10:03 Dose: 1,000 mcg Diphenhydramine HCl (Benadryl) 25 mg IVP Q3 PRN PRN Reason: Itching / Pruritus Last Admin: 04/06/17 13:08 Dose: 25 mg Ferrous Sulfate (Feosol) 325 mg PO BID [facility] Last Admin: 04/06/17 10:03 Dose: 325 mg Hydromorphone HCl (Dilaudid) 1 mg IVP Q3 PRN PRN Reason: Pain Last Admin: 04/06/17 13:08 Dose: 1 mg Linezolid (Zyvox 600mg/300ml D5w) 600 mg in 300 mls @ 200 mls/hr IVPB Q12 [facility] Last Admin: 04/06/17 10:07 Dose: 200 mls/hr Magnesium Hydroxide (Milk Of Magnesia) 0 ml GT DAILY PRN PRN Reason: EXCORIATION Mesalamine (Delzicol) 800 mg PO DAILY [facility] Last Admin: 04/06/17 10:03 Dose: 800 mg Pantoprazole Sodium (Protonix Ec Tab) 40 mg PO DAILY [facility] Last Admin: 04/06/17 10:02 Dose: 40 mg - Labs Labs: 04/03/17 07:08 04/03/17 07:08 PT 12.0 SECONDS (9.7-12.2) 03/25/17 15:09 INR 1.1 03/25/17 15:09 APTT 41 SECONDS (21-34) H 03/27/17 07:50 - Constitutional Appears: Well - Head Exam Head Exam: ATRAUMATIC, NORMAL INSPECTION, NORMOCEPHALIC - Eye Exam Eye Exam: EOMI, Normal appearance, PERRL Pupil Exam: NORMAL ACCOMODATION, PERRL - ENT Exam ENT Exam: Mucous Membranes Moist, Normal Exam - Neck Exam Neck Exam: Full ROM, Normal Inspection. absent: Lymphadenopathy - Respiratory Exam Respiratory Exam: Decreased Breath Sounds - Cardiovascular Exam Cardiovascular Exam: REGULAR RHYTHM, +S1, +S2 - GI/Abdominal Exam GI & Abdominal Exam: Soft, Diminished Bowel Sounds - Rectal Exam Rectal Exam: Deferred Assessment and Plan (1) Abscess Status: Acute (2) Crohn disease Status: Acute (3) Pulmonary embolism Status: Acute (4) Abdominal pain Status: Acute (5) Constipation Status: Acute (6) DVT (deep venous thrombosis) Status: Acute (7) Diarrhea Status: Acute (8) Diarrhea Status: Acute (9) Encounter for wound care Status: Acute (10) Fever Status: Acute (11) Foreign body Status: Acute (12) Intractable abdominal pain Status: Acute (13) Intractable pain Status: Acute (14) Prophylactic measure Status: Acute (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
--- NOTE | 2017-04-06 14:04 | CP.PCM.PN ---
Subjective - Date & Time of Evaluation Date of Evaluation: 04/06/17 Time of Evaluation: 14:02 - Subjective Subjective: Medicine Note for Dr. Barrett's service Patient seen and examined at bedside. Patient reports that his ostomy bag output has been more solid lately. He still has continued pain in his perineum and states that surgery residents have told him that he appears to be forming a second ulcer in this area. He is tolerating PO well. Colostomy is still functioning well. No events overnight, per nursing. Objective - Vital Signs/Intake and Output Vital Signs (last 24 hours): Temp Pulse Resp BP Pulse Ox 98.2 F 86 18 117/83 100 04/06/17 08:25 04/06/17 13:05 04/06/17 08:25 04/06/17 13:05 04/06/17 08:25 Intake and Output: 04/06/17 04/06/17 06:59 18:59 Intake Total 820 Output Total 300 Balance 520 - Medications Medications: Current Medications Acetaminophen (Tylenol 325mg Tab) 975 mg PO Q8 [facility] Last Admin: 04/06/17 13:09 Dose: Not Given Apixaban (Eliquis) 5 mg PO BID [facility] Last Admin: 04/06/17 10:03 Dose: 5 mg Cyanocobalamin (Vitamin B12 1000 Mcg Tab) 1,000 mcg PO DAILY [facility] Last Admin: 04/06/17 10:03 Dose: 1,000 mcg Diphenhydramine HCl (Benadryl) 25 mg IVP Q3 PRN PRN Reason: Itching / Pruritus Last Admin: 04/06/17 13:08 Dose: 25 mg Ferrous Sulfate (Feosol) 325 mg PO BID [facility] Last Admin: 04/06/17 10:03 Dose: 325 mg Hydromorphone HCl (Dilaudid) 1 mg IVP Q3 PRN PRN Reason: Pain Last Admin: 04/06/17 13:08 Dose: 1 mg Linezolid (Zyvox 600mg/300ml D5w) 600 mg in 300 mls @ 200 mls/hr IVPB Q12 [facility] Last Admin: 04/06/17 10:07 Dose: 200 mls/hr Magnesium Hydroxide (Milk Of Magnesia) 0 ml GT DAILY PRN PRN Reason: EXCORIATION Mesalamine (Delzicol) 800 mg PO DAILY [facility] Last Admin: 04/06/17 10:03 Dose: 800 mg Pantoprazole Sodium (Protonix Ec Tab) 40 mg PO DAILY [facility] Last Admin: 04/06/17 10:02 Dose: 40 mg - Labs Labs: 04/03/17 07:08 04/03/17 07:08 PT 12.0 SECONDS (9.7-12.2) 03/25/17 15:09 INR 1.1 03/25/17 15:09 APTT 41 SECONDS (21-34) H 03/27/17 07:50 - Constitutional Appears: No Acute Distress - Head Exam Head Exam: ATRAUMATIC, NORMOCEPHALIC - Eye Exam Eye Exam: EOMI, Normal appearance - ENT Exam ENT Exam: Mucous Membranes Moist - Cardiovascular Exam Cardiovascular Exam: REGULAR RHYTHM, +S1, +S2 - GI/Abdominal Exam GI & Abdominal Exam: Soft. absent: Tenderness Additional comments: ostomy functioning with solid output/non-bloody - Neurological Exam Neurological Exam: Alert, Awake, Oriented x3 Assessment and Plan - Assessment and Plan (Free Text) Plan: Crohns s/p perianal I&D POD 10 Follow up further recs per Dr. Taylor Continue monitoring ostomy output- currently solid stool formation Daily dressing changes as per surgery Dilauded 1mg IVP q3hrs prn Follow up surgery recs for progressive perianal ulceration ID consulted- Dr. Xavier; recs appreciated Perirectal abscess cx 03/25: MRSA Rectum cx 03/22: Corynebacterium Continue Zyvoxx 600mg IVPB q12hrs for 10 days started on 03/29 Cycle will end Thursday04/08/17 Follow up ID recs for continued abx Contact precautions Continue mesalamine Pulmonary embolism Small peripheral RLL PE identified on CT chest 03/22 Cardio consulted- Dr. Galvin; recs appreciated Pulmonary embolism - small, no evidence of RV strain or enlargement, anticoagulate with NOAC Eliquis 5mg PO BID Will discuss work up as an outpatient when his greater issues are stable Echo- normal LV function- EF 65-70% Prophylaxis Continue Protonix on full anticoagulation- NOAC Case discussed with Dr. Barrett. All management as per Dr. Barrett.
[2017-04-07] MEDS: DiphenhydrAMINE 50 mg/ml Inj IVP PRN ×3 (01:40→08:27)
[2017-04-07] MEDS: HYDROmorphone 1 mg/ml ISec IVP PRN ×7 (01:40→21:16)
[2017-04-07 06:29] LABS: BASO # 0.1 K/uL (0.0-0.2); BASO % 1.1 % (0.0-2.0); EOS # 0.5 K/uL (0.0-0.7); EOS % 6.3 % (0.0-4.0); HEMATOCRIT 32.1 % (35.0-51.0); LYMPH # 3.3 K/uL (1.0-4.3); LYMPH % 37.9 % (20.0-40.0); MEAN CELL VOLUME 69.3 fL (80.0-94.0); MEAN CORPUSCULAR HEMOGLOBIN 21.4 pg (27.0-31.0); MEAN CORPUSCULAR HGB CONC 30.9 g/dL (33.0-37.0); MEAN PLATELET VOLUME 7.7 fL (7.2-11.7); MONO # 0.4 K/uL (0.0-0.8); MONO % 4.8 % (0.0-10.0); RED CELL DISTRIBUTION WIDTH 18.3 % (11.5-14.5); WHITE BLOOD COUNT 8.7 K/uL (4.8-10.8)
[2017-04-07 07:12] LABS: CHLORIDE 101 mmol/L (98-107); SODIUM 137 mmol/L (132-148)
[2017-04-07 07:14] LABS: GFR AFRICAN-AMERICAN > 60
[2017-04-07 07:15] LABS: ALKALINE PHOSPHATASE 97 U/L (38-126); ALT/SGPT 24 U/L (21-72); AST/SGOT 22 U/L (17-59); BILIRUBIN,TOTAL 0.4 mg/dL (0.2-1.3); BLOOD UREA NITROGEN 7 mg/dL (9-20); CALCIUM 8.9 mg/dl (8.6-10.4); CARBON DIOXIDE 25 mmol/L (22-30); GLUCOSE,RANDOM 87 mg/dL (75-110)
--- NOTE | 2017-04-07 09:16 | CP.PCM.PN ---
Subjective - Date & Time of Evaluation Date of Evaluation: 04/07/17 Time of Evaluation: 09:16 - Subjective Subjective: Medicine Note for Dr. Barrett's Service Pt seen and examined at bedside. He states that he continues to have pain at the abscess sites, perianal. He displays his ostomy bag which contains solid bowel movements. He denies all other symptoms, other than the pain at his wound sites. He states that he was told by surgery that there appears to be another abscess forming and that Dr. Taylor will be coming to look at it today and make recommendations. As per nursing staff, no acute events overnight. Objective - Vital Signs/Intake and Output Vital Signs (last 24 hours): Temp Pulse Resp BP Pulse Ox 98.1 F 70 18 100/64 98 04/07/17 08:09 04/07/17 08:09 04/07/17 08:09 04/07/17 08:09 04/07/17 08:09 Intake and Output: 04/07/17 04/07/17 06:59 18:59 Intake Total 620 Output Total 1300 Balance -680 - Medications Medications: Current Medications Acetaminophen (Tylenol 325mg Tab) 975 mg PO Q8 [facility] Last Admin: 04/07/17 05:10 Dose: Not Given Apixaban (Eliquis) 5 mg PO BID [facility] Last Admin: 04/06/17 18:47 Dose: 5 mg Cyanocobalamin (Vitamin B12 1000 Mcg Tab) 1,000 mcg PO DAILY [facility] Last Admin: 04/06/17 10:03 Dose: 1,000 mcg Diphenhydramine HCl (Benadryl) 25 mg IVP Q3 PRN PRN Reason: Itching / Pruritus Last Admin: 04/07/17 08:27 Dose: 25 mg Ferrous Sulfate (Feosol) 325 mg PO BID [facility] Last Admin: 04/06/17 18:47 Dose: 325 mg Hydromorphone HCl (Dilaudid) 1 mg IVP Q3 PRN PRN Reason: Pain Last Admin: 04/07/17 08:28 Dose: 1 mg Linezolid (Zyvox 600mg/300ml D5w) 600 mg in 300 mls @ 200 mls/hr IVPB Q12 [facility] Last Admin: 04/06/17 22:33 Dose: 200 mls/hr Magnesium Hydroxide (Milk Of Magnesia) 0 ml GT DAILY PRN PRN Reason: EXCORIATION Mesalamine (Delzicol) 800 mg PO DAILY [facility] Last Admin: 04/06/17 10:03 Dose: 800 mg Pantoprazole Sodium (Protonix Ec Tab) 40 mg PO DAILY [facility] Last Admin: 04/06/17 10:02 Dose: 40 mg - Labs Labs: 04/07/17 06:07 04/07/17 06:07 PT 12.0 SECONDS (9.7-12.2) 03/25/17 15:09 INR 1.1 03/25/17 15:09 APTT 41 SECONDS (21-34) H 03/27/17 07:50 - Constitutional Appears: No Acute Distress - Head Exam Head Exam: ATRAUMATIC, NORMAL INSPECTION - Eye Exam Eye Exam: EOMI, Normal appearance - ENT Exam ENT Exam: Mucous Membranes Moist - Respiratory Exam Respiratory Exam: Clear to Ausculation Bilateral, NORMAL BREATHING PATTERN - Cardiovascular Exam Cardiovascular Exam: REGULAR RHYTHM - GI/Abdominal Exam GI & Abdominal Exam: Soft. absent: Distended, Tenderness - Extremities Exam Extremities Exam: absent: Calf Tenderness, Pedal Edema - Neurological Exam Neurological Exam: Alert, Awake, Oriented x3 - Psychiatric Exam Psychiatric exam: Normal Mood Assessment and Plan - Assessment and Plan (Free Text) Plan: Crohns s/p perianal I&D POD 11 Follow up further recs per Dr. Taylor Continue monitoring ostomy output- currently solid stool formation Daily dressing changes as per surgery Dilauded 1mg IVP q3hrs prn Follow up surgery recs for progressive perianal abscess ID consulted- Dr. Xavier; recs appreciated Perirectal abscess cx 03/25: MRSA Rectum cx 03/22: Corynebacterium Continue Zyvoxx 600mg IVPB q12hrs for 10 days started on 03/29 Cycle will end Thursday04/08/17 Follow up ID recs for continued abx Contact precautions Continue mesalamine Pulmonary embolism Small peripheral RLL PE identified on CT chest 03/22 Cardio consulted- Dr. Galvin; recs appreciated Pulmonary embolism - small, no evidence of RV strain or enlargement, anticoagulate with NOAC Eliquis 5mg PO BID Will discuss work up as an outpatient when his greater issues are stable Echo- normal LV function- EF 65-70% Prophylaxis Continue Protonix on full anticoagulation- NOAC Case discussed with Dr. Barrett. All management as per Dr. Barrett.
[2017-04-07] MEDS: Pantoprazole 40 mg EC Tab PO SCH (10:25)
[2017-04-07] MEDS: Linezolid 600 mg in D5W 300 ml 600 MG/300 ML BAG IVPB SCH ×2 (10:27→21:16)
--- NOTE | 2017-04-07 17:12 | CP.PCM.PN ---
Subjective - Date & Time of Evaluation Date of Evaluation: 04/07/17 Time of Evaluation: 10:40 - Subjective Subjective: clinically same Objective - Vital Signs/Intake and Output Vital Signs (last 24 hours): Temp Pulse Resp BP Pulse Ox 97.7 F 82 20 111/67 100 04/07/17 15:00 04/07/17 15:00 04/07/17 15:00 04/07/17 15:00 04/07/17 15:00 Intake and Output: 04/07/17 04/07/17 06:59 18:59 Intake Total 620 Output Total 1300 Balance -680 - Medications Medications: Current Medications Acetaminophen (Tylenol 325mg Tab) 975 mg PO Q8 [facility] Last Admin: 04/07/17 14:28 Dose: Not Given Apixaban (Eliquis) 5 mg PO BID [facility] Last Admin: 04/07/17 10:25 Dose: 5 mg Hydromorphone HCl (Dilaudid) 1 mg IVP Q3 PRN PRN Reason: Pain Last Admin: 04/07/17 14:46 Dose: 1 mg Linezolid (Zyvox 600mg/300ml D5w) 600 mg in 300 mls @ 200 mls/hr IVPB Q12 [facility] Last Admin: 04/07/17 10:27 Dose: 200 mls/hr Magnesium Hydroxide (Milk Of Magnesia) 0 ml GT DAILY PRN PRN Reason: EXCORIATION - Labs Labs: 04/07/17 06:07 04/07/17 06:07 PT 12.0 SECONDS (9.7-12.2) 03/25/17 15:09 INR 1.1 03/25/17 15:09 APTT 41 SECONDS (21-34) H 03/27/17 07:50 - Constitutional Appears: Well - Head Exam Head Exam: ATRAUMATIC, NORMAL INSPECTION, NORMOCEPHALIC - Eye Exam Eye Exam: EOMI, Normal appearance, PERRL Pupil Exam: NORMAL ACCOMODATION, PERRL - ENT Exam ENT Exam: Mucous Membranes Moist, Normal Exam - Neck Exam Neck Exam: Full ROM, Normal Inspection. absent: Lymphadenopathy - Respiratory Exam Respiratory Exam: Decreased Breath Sounds - Cardiovascular Exam Cardiovascular Exam: REGULAR RHYTHM, +S1, +S2 - GI/Abdominal Exam GI & Abdominal Exam: Soft, Diminished Bowel Sounds - Rectal Exam Rectal Exam: Deferred Assessment and Plan (1) Abscess Status: Acute (2) Crohn disease Status: Acute (3) Pulmonary embolism Status: Acute (4) Abdominal pain Status: Acute (5) Constipation Status: Acute (6) DVT (deep venous thrombosis) Status: Acute (7) Diarrhea Status: Acute (8) Diarrhea Status: Acute (9) Encounter for wound care Status: Acute (10) Fever Status: Acute (11) Foreign body Status: Acute (12) Intractable abdominal pain Status: Acute (13) Intractable pain Status: Acute (14) Prophylactic measure Status: Acute (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
[2017-04-08] MEDS: DiphenhydrAMINE 50 mg/ml Inj IVP PRN ×7 (00:31→21:21)
[2017-04-08] MEDS: HYDROmorphone 1 mg/ml ISec IVP PRN ×7 (00:31→21:21)
[2017-04-08 07:31] LABS: BASO # 0.1 K/uL (0.0-0.2); BASO % 0.8 % (0.0-2.0); EOS # 0.4 K/uL (0.0-0.7); EOS % 4.4 % (0.0-4.0); HEMATOCRIT 36.2 % (35.0-51.0); LYMPH # 3.5 K/uL (1.0-4.3); LYMPH % 35.5 % (20.0-40.0); MEAN CELL VOLUME 69.4 fL (80.0-94.0); MEAN CORPUSCULAR HEMOGLOBIN 21.3 pg (27.0-31.0); MEAN CORPUSCULAR HGB CONC 30.7 g/dL (33.0-37.0); MEAN PLATELET VOLUME 7.5 fL (7.2-11.7); MONO # 0.4 K/uL (0.0-0.8); MONO % 4.2 % (0.0-10.0); NRBC % 0.1 % (0.0-2.0); RED CELL DISTRIBUTION WIDTH 18.1 % (11.5-14.5); WHITE BLOOD COUNT 9.9 K/uL (4.8-10.8)
[2017-04-08 07:38] LABS: CHLORIDE 100 mmol/L (98-107)
[2017-04-08 07:39] LABS: SODIUM 137 mmol/L (132-148)
[2017-04-08 07:41] LABS: BILIRUBIN,TOTAL 0.4 mg/dL (0.2-1.3); CARBON DIOXIDE 24 mmol/L (22-30); GFR AFRICAN-AMERICAN > 60
[2017-04-08 07:42] LABS: ALKALINE PHOSPHATASE 108 U/L (38-126); ALT/SGPT 22 U/L (21-72); AST/SGOT 17 U/L (17-59); BLOOD UREA NITROGEN 7 mg/dL (9-20); CALCIUM 9.2 mg/dl (8.6-10.4); GLUCOSE,RANDOM 82 mg/dL (75-110); TOTAL PROTEIN 7.6 g/dL (6.3-8.3)
[2017-04-08] MEDS: Pantoprazole 40 mg EC Tab PO SCH (10:06)
[2017-04-08] MEDS: Linezolid 600 mg in D5W 300 ml 600 MG/300 ML BAG IVPB SCH ×2 (10:10→21:21)
--- NOTE | 2017-04-08 12:15 | CP.PCM.PN ---
Subjective - Date & Time of Evaluation Date of Evaluation: 04/08/17 Time of Evaluation: 10:40 - Subjective Subjective: Resident Progress Note for Dr. Barrett Patient seen and examined at bedside. Patient reports to blood coming out off rectum after using the restroom. Patient has been getting pain medication and stating the pain is being controlled well. Patient denies headache, fever, chills, shortness of breath, chest pain, nausea, or vomiting. Objective - Vital Signs/Intake and Output Vital Signs (last 24 hours): Temp Pulse Resp BP Pulse Ox 98.4 F 79 18 115/74 100 04/08/17 09:31 04/08/17 09:31 04/08/17 09:31 04/08/17 09:31 04/08/17 09:31 Intake and Output: 04/08/17 04/08/17 06:59 18:59 Intake Total 900 Output Total 1500 Balance -600 - Medications Medications: Current Medications Acetaminophen (Tylenol 325mg Tab) 975 mg PO Q8 [facility] Last Admin: 04/08/17 05:38 Dose: Not Given Apixaban (Eliquis) 5 mg PO BID [facility] Last Admin: 04/08/17 10:08 Dose: 5 mg Cyanocobalamin (Vitamin B12 1000 Mcg Tab) 1,000 mcg PO DAILY [facility] Last Admin: 04/08/17 10:09 Dose: 1,000 mcg Diphenhydramine HCl (Benadryl) 25 mg IVP Q3 PRN PRN Reason: Itching / Pruritus Last Admin: 04/08/17 11:49 Dose: 25 mg Ferrous Sulfate (Feosol) 325 mg PO BID [facility] Last Admin: 04/08/17 10:06 Dose: 325 mg Hydromorphone HCl (Dilaudid) 1 mg IVP Q3 PRN PRN Reason: Pain Last Admin: 04/08/17 11:51 Dose: 1 mg Hydromorphone HCl (Dilaudid) 1 mg IVP Q3 PRN PRN Reason: Pain, moderate (4-7) Last Admin: 04/08/17 08:29 Dose: 1 mg Linezolid (Zyvox 600mg/300ml D5w) 600 mg in 300 mls @ 200 mls/hr IVPB Q12 [facility] Last Admin: 04/08/17 10:10 Dose: 200 mls/hr Magnesium Hydroxide (Milk Of Magnesia) 0 ml GT DAILY PRN PRN Reason: EXCORIATION Mesalamine (Delzicol) 800 mg PO DAILY [facility] Last Admin: 04/08/17 10:10 Dose: 800 mg Pantoprazole Sodium (Protonix Ec Tab) 40 mg PO DAILY [facility] Last Admin: 04/08/17 10:06 Dose: 40 mg - Labs Labs: 04/08/17 07:00 04/08/17 07:00 PT 12.0 SECONDS (9.7-12.2) 03/25/17 15:09 INR 1.1 03/25/17 15:09 APTT 41 SECONDS (21-34) H 03/27/17 07:50 - Constitutional Appears: Non-toxic, No Acute Distress - Head Exam Head Exam: ATRAUMATIC, NORMAL INSPECTION - Eye Exam Eye Exam: EOMI, Normal appearance - ENT Exam ENT Exam: Mucous Membranes Moist - Neck Exam Neck Exam: Normal Inspection - Respiratory Exam Respiratory Exam: Clear to Ausculation Bilateral, NORMAL BREATHING PATTERN - Cardiovascular Exam Cardiovascular Exam: REGULAR RHYTHM, +S1, +S2. absent: Murmur - GI/Abdominal Exam GI & Abdominal Exam: Soft, Normal Bowel Sounds. absent: Tenderness - Extremities Exam Extremities Exam: absent: Calf Tenderness, Pedal Edema - Neurological Exam Neurological Exam: Alert, Awake, Oriented x3 - Psychiatric Exam Psychiatric exam: Normal Affect, Normal Mood - Skin Skin Exam: Normal Color, Warm Assessment and Plan - Assessment and Plan (Free Text) Assessment: Crohns s/p perianal I&D POD 11 Follow up further recs per Dr. Taylor Continue monitoring ostomy output- currently solid stool formation Daily dressing changes as per surgery Dilauded 1mg IVP q3hrs prn Follow up Surgery team's reevaluation ID consulted- Dr. Xavier; recs appreciated Perirectal abscess cx 03/25: MRSA Rectum cx 03/22: Corynebacterium Continue Zyvoxx 600mg IVPB q12hrs for 10 days started on 03/29 Follow up ID recs for continued abx Contact precautions Continue mesalamine Pulmonary embolism Small peripheral RLL PE identified on CT chest 03/22 Cardio consulted- Dr. Galvin; recs appreciated Pulmonary embolism - small, no evidence of RV strain or enlargement, anticoagulate with NOAC Eliquis 5mg PO BID Will discuss work up as an outpatient when his greater issues are stable Echo- normal LV function- EF 65-70% Prophylaxis Continue Protonix on full anticoagulation- NOAC Case discussed with Dr. Barrett. All management as per Dr. Barrett.
--- NOTE | 2017-04-08 18:01 | CP.PCM.PN ---
Subjective - Date & Time of Evaluation Date of Evaluation: 04/08/17 Time of Evaluation: 11:40 - Subjective Subjective: clinically same Objective - Vital Signs/Intake and Output Vital Signs (last 24 hours): Temp Pulse Resp BP Pulse Ox 98.6 F 110 H 20 114/76 99 04/08/17 16:24 04/08/17 16:24 04/08/17 16:24 04/08/17 16:24 04/08/17 16:24 Intake and Output: 04/08/17 04/08/17 06:59 18:59 Intake Total 900 300 Output Total 1500 Balance -600 300 - Medications Medications: Current Medications Acetaminophen (Tylenol 325mg Tab) 975 mg PO Q8 [facility] Last Admin: 04/08/17 14:09 Dose: Not Given Apixaban (Eliquis) 5 mg PO BID [facility] Last Admin: 04/08/17 10:08 Dose: 5 mg Cyanocobalamin (Vitamin B12 1000 Mcg Tab) 1,000 mcg PO DAILY [facility] Last Admin: 04/08/17 10:09 Dose: 1,000 mcg Diphenhydramine HCl (Benadryl) 25 mg IVP Q3 PRN PRN Reason: Itching / Pruritus Last Admin: 04/08/17 15:12 Dose: 25 mg Ferrous Sulfate (Feosol) 325 mg PO BID [facility] Last Admin: 04/08/17 10:06 Dose: 325 mg Hydromorphone HCl (Dilaudid) 1 mg IVP Q3 PRN PRN Reason: Pain, moderate (4-7) Last Admin: 04/08/17 15:10 Dose: 1 mg Linezolid (Zyvox 600mg/300ml D5w) 600 mg in 300 mls @ 200 mls/hr IVPB Q12 [facility] Last Admin: 04/08/17 10:10 Dose: 200 mls/hr Magnesium Hydroxide (Milk Of Magnesia) 0 ml GT DAILY PRN PRN Reason: EXCORIATION Mesalamine (Delzicol) 800 mg PO DAILY [facility] Last Admin: 04/08/17 10:10 Dose: 800 mg Pantoprazole Sodium (Protonix Ec Tab) 40 mg PO DAILY [facility] Last Admin: 04/08/17 10:06 Dose: 40 mg - Labs Labs: 04/08/17 07:00 04/08/17 07:00 PT 12.0 SECONDS (9.7-12.2) 03/25/17 15:09 INR 1.1 03/25/17 15:09 APTT 41 SECONDS (21-34) H 03/27/17 07:50 - Constitutional Appears: Well - Head Exam Head Exam: ATRAUMATIC, NORMAL INSPECTION, NORMOCEPHALIC - Eye Exam Eye Exam: EOMI, Normal appearance, PERRL Pupil Exam: NORMAL ACCOMODATION, PERRL - ENT Exam ENT Exam: Mucous Membranes Moist, Normal Exam - Neck Exam Neck Exam: Full ROM, Normal Inspection. absent: Lymphadenopathy - Respiratory Exam Respiratory Exam: Decreased Breath Sounds - Cardiovascular Exam Cardiovascular Exam: REGULAR RHYTHM, +S1, +S2 - GI/Abdominal Exam GI & Abdominal Exam: Soft, Diminished Bowel Sounds - Rectal Exam Rectal Exam: Deferred Assessment and Plan (1) Abscess Status: Acute (2) Crohn disease Status: Acute (3) Pulmonary embolism Status: Acute (4) Abdominal pain Status: Acute (5) Constipation Status: Acute (6) DVT (deep venous thrombosis) Status: Acute (7) Diarrhea Status: Acute (8) Diarrhea Status: Acute (9) Encounter for wound care Status: Acute (10) Fever Status: Acute (11) Foreign body Status: Acute (12) Intractable abdominal pain Status: Acute (13) Intractable pain Status: Acute (14) Prophylactic measure Status: Acute (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
[2017-04-09] MEDS: DiphenhydrAMINE 50 mg/ml Inj IVP PRN ×7 (00:22→21:05)
[2017-04-09] MEDS: HYDROmorphone 1 mg/ml ISec IVP PRN ×7 (00:23→21:05)
[2017-04-09 06:13] LABS: BASO # 0.1 K/uL (0.0-0.2); BASO % 1.2 % (0.0-2.0); EOS # 0.5 K/uL (0.0-0.7); HEMATOCRIT 33.4 % (35.0-51.0); LYMPH % 31.3 % (20.0-40.0); MEAN CELL VOLUME 70.5 fL (80.0-94.0); MEAN CORPUSCULAR HEMOGLOBIN 21.6 pg (27.0-31.0); MEAN CORPUSCULAR HGB CONC 30.7 g/dL (33.0-37.0); MEAN PLATELET VOLUME 7.5 fL (7.2-11.7); MONO # 0.5 K/uL (0.0-0.8); MONO % 5.1 % (0.0-10.0); NRBC % 0.1 % (0.0-2.0); RED CELL DISTRIBUTION WIDTH 17.8 % (11.5-14.5); WHITE BLOOD COUNT 9.4 K/uL (4.8-10.8)
[2017-04-09 06:29] LABS: ALB/GLOB RATIO 1.1 (1.0-2.1); ALKALINE PHOSPHATASE 111 U/L (38-126); ALT/SGPT 25 U/L (21-72); AST/SGOT 17 U/L (17-59); BILIRUBIN,TOTAL 0.2 mg/dL (0.2-1.3); BLOOD UREA NITROGEN 11 mg/dL (9-20); CALCIUM 8.8 mg/dl (8.6-10.4); CARBON DIOXIDE 27 mmol/L (22-30); CHLORIDE 100 mmol/L (98-107); GFR AFRICAN-AMERICAN > 60; GLUCOSE,RANDOM 90 mg/dL (75-110); POTASSIUM 4.1 mmol/L (3.6-5.2); SODIUM 138 mmol/L (132-148)
--- NOTE | 2017-04-09 09:14 | CP.PCM.PN ---
Subjective - Date & Time of Evaluation Date of Evaluation: 04/09/17 Time of Evaluation: 09:14 - Subjective Subjective: Medicine Note for Dr. Barrett's Service Pt seen and examined at bedside. Continues to have blood per rectum. States that he was told that Dr. Taylor was supposed to see him but has not yet. Has solid ostomy output. Pain is well contolled. Denies any acute changes/ symptoms. Objective - Vital Signs/Intake and Output Vital Signs (last 24 hours): Temp Pulse Resp BP Pulse Ox 98.1 F 84 20 103/59 L 98 04/09/17 07:12 04/09/17 07:12 04/09/17 07:12 04/09/17 07:12 04/09/17 07:12 Intake and Output: 04/09/17 04/09/17 06:59 18:59 Intake Total 740 Output Total 900 Balance -160 - Medications Medications: Current Medications Acetaminophen (Tylenol 325mg Tab) 975 mg PO Q8 [facility] Last Admin: 04/09/17 05:01 Dose: Not Given Apixaban (Eliquis) 5 mg PO BID [facility] Last Admin: 04/08/17 18:09 Dose: 5 mg Cyanocobalamin (Vitamin B12 1000 Mcg Tab) 1,000 mcg PO DAILY [facility] Last Admin: 04/08/17 10:09 Dose: 1,000 mcg Diphenhydramine HCl (Benadryl) 25 mg IVP Q3 PRN PRN Reason: Itching / Pruritus Last Admin: 04/09/17 07:51 Dose: 25 mg Ferrous Sulfate (Feosol) 325 mg PO BID [facility] Last Admin: 04/08/17 18:09 Dose: 325 mg Hydromorphone HCl (Dilaudid) 1 mg IVP Q3 PRN PRN Reason: Pain, moderate (4-7) Last Admin: 04/09/17 07:52 Dose: 1 mg Linezolid (Zyvox 600mg/300ml D5w) 600 mg in 300 mls @ 200 mls/hr IVPB Q12 [facility] Last Admin: 04/08/17 21:21 Dose: 200 mls/hr Magnesium Hydroxide (Milk Of Magnesia) 0 ml GT DAILY PRN PRN Reason: EXCORIATION Mesalamine (Delzicol) 800 mg PO DAILY [facility] Last Admin: 04/08/17 10:10 Dose: 800 mg Pantoprazole Sodium (Protonix Ec Tab) 40 mg PO DAILY [facility] Last Admin: 04/08/17 10:06 Dose: 40 mg - Labs Labs: 04/09/17 06:03 04/09/17 06:03 PT 12.0 SECONDS (9.7-12.2) 03/25/17 15:09 INR 1.1 03/25/17 15:09 APTT 41 SECONDS (21-34) H 03/27/17 07:50 - Constitutional Appears: No Acute Distress - Head Exam Head Exam: ATRAUMATIC, NORMAL INSPECTION - Eye Exam Eye Exam: Normal appearance - ENT Exam ENT Exam: Mucous Membranes Moist - Respiratory Exam Respiratory Exam: Clear to Ausculation Bilateral, NORMAL BREATHING PATTERN - Cardiovascular Exam Cardiovascular Exam: REGULAR RHYTHM - GI/Abdominal Exam GI & Abdominal Exam: Soft Additional comments: ostomy with solid output - Neurological Exam Neurological Exam: Alert, Awake, Oriented x3 Assessment and Plan - Assessment and Plan (Free Text) Plan: Crohns s/p perianal I&D POD 11 Follow up further recs per Dr. Taylor Continue monitoring ostomy output- currently solid stool formation Daily dressing changes as per surgery Dilauded 1mg IVP q3hrs prn Follow up Surgery team's re-evaluation for worsening/progressive perianal wounds ID consulted- Dr. Xavier; recs appreciated Perirectal abscess cx 03/25: MRSA Rectum cx 03/22: Corynebacterium Continue Zyvoxx 600mg IVPB q12hrs for 10 days started on 03/29 Follow up ID recs for continued abx Contact precautions Continue mesalamine Pulmonary embolism Small peripheral RLL PE identified on CT chest 03/22 Cardio consulted- Dr. Galvin; recs appreciated Pulmonary embolism - small, no evidence of RV strain or enlargement, anticoagulate with NOAC Eliquis 5mg PO BID Will discuss work up as an outpatient when his greater issues are stable Echo- normal LV function- EF 65-70% Prophylaxis Continue Protonix on full anticoagulation- NOAC Case discussed with Dr. Barrett. All management as per Dr. Barrett.
[2017-04-09] MEDS: Pantoprazole 40 mg EC Tab PO SCH (11:00)
[2017-04-09] MEDS: Linezolid 600 mg in D5W 300 ml 600 MG/300 ML BAG IVPB SCH ×2 (11:04→21:04)
[2017-04-10] MEDS: DiphenhydrAMINE 50 mg/ml Inj IVP PRN ×8 (00:10→22:20)
[2017-04-10] MEDS: HYDROmorphone 1 mg/ml ISec IVP PRN ×8 (00:12→22:20)
[2017-04-10 07:19] LABS: BASO # 0.1 K/uL (0.0-0.2); BASO % 1.5 % (0.0-2.0); EOS # 0.4 K/uL (0.0-0.7); EOS % 4.7 % (0.0-4.0); LYMPH # 3.3 K/uL (1.0-4.3); LYMPH % 37.1 % (20.0-40.0); MEAN CELL VOLUME 70.1 fL (80.0-94.0); MEAN CORPUSCULAR HEMOGLOBIN 21.9 pg (27.0-31.0); MEAN CORPUSCULAR HGB CONC 31.2 g/dL (33.0-37.0); MEAN PLATELET VOLUME 7.4 fL (7.2-11.7); MONO # 0.5 K/uL (0.0-0.8); MONO % 5.1 % (0.0-10.0); NRBC % 0.1 % (0.0-2.0); RED CELL DISTRIBUTION WIDTH 17.8 % (11.5-14.5)
[2017-04-10 07:32] LABS: CHLORIDE 101 mmol/L (98-107); POTASSIUM 4.2 mmol/L (3.6-5.2); SODIUM 139 mmol/L (132-148)
[2017-04-10 07:34] LABS: BILIRUBIN,TOTAL 0.4 mg/dL (0.2-1.3); GFR AFRICAN-AMERICAN > 60
[2017-04-10 07:35] LABS: ALB/GLOB RATIO 1.1 (1.0-2.1); ALKALINE PHOSPHATASE 108 U/L (38-126); ALT/SGPT 25 U/L (21-72); AST/SGOT 20 U/L (17-59); BLOOD UREA NITROGEN 11 mg/dL (9-20); CALCIUM 8.9 mg/dl (8.6-10.4); CARBON DIOXIDE 25 mmol/L (22-30); GLUCOSE,RANDOM 84 mg/dL (75-110); TOTAL PROTEIN 7.4 g/dL (6.3-8.3)
[2017-04-10] MEDS: Linezolid 600 mg in D5W 300 ml 600 MG/300 ML BAG IVPB SCH ×2 (09:32→21:50)
[2017-04-10] MEDS: Pantoprazole 40 mg EC Tab PO SCH (09:34)
--- NOTE | 2017-04-10 16:36 | CP.PCM.PN ---
Subjective - Date & Time of Evaluation Date of Evaluation: 04/10/17 Time of Evaluation: 03:30 - Subjective Subjective: dictated Objective - Vital Signs/Intake and Output Vital Signs (last 24 hours): Temp Pulse Resp BP Pulse Ox 98.4 F 111 H 20 98/67 L 100 04/10/17 15:06 04/10/17 15:06 04/10/17 15:06 04/10/17 15:06 04/10/17 15:06 Intake and Output: 04/10/17 04/10/17 06:59 18:59 Intake Total 620 1200 Output Total 800 Balance -180 1200 - Medications Medications: Current Medications Apixaban (Eliquis) 5 mg PO BID [facility] Last Admin: 04/10/17 09:34 Dose: 5 mg Cyanocobalamin (Vitamin B12 1000 Mcg Tab) 1,000 mcg PO DAILY [facility] Last Admin: 04/10/17 09:33 Dose: 1,000 mcg Diphenhydramine HCl (Benadryl) 25 mg IVP Q3 PRN PRN Reason: Itching / Pruritus Last Admin: 04/10/17 16:17 Dose: 25 mg Ferrous Sulfate (Feosol) 325 mg PO BID [facility] Last Admin: 04/10/17 09:34 Dose: 325 mg Hydromorphone HCl (Dilaudid) 1 mg IVP Q3 PRN PRN Reason: Pain, moderate (4-7) Last Admin: 04/10/17 16:16 Dose: 1 mg Linezolid (Zyvox 600mg/300ml D5w) 600 mg in 300 mls @ 200 mls/hr IVPB Q12 [facility] Last Admin: 04/10/17 09:32 Dose: 200 mls/hr Mesalamine (Delzicol) 800 mg PO DAILY [facility] Last Admin: 04/10/17 09:33 Dose: 800 mg Pantoprazole Sodium (Protonix Ec Tab) 40 mg PO DAILY [facility] Last Admin: 04/10/17 09:34 Dose: 40 mg - Labs Labs: 04/10/17 07:05 04/10/17 07:05 PT 12.0 SECONDS (9.7-12.2) 03/25/17 15:09 INR 1.1 03/25/17 15:09 APTT 41 SECONDS (21-34) H 03/27/17 07:50
--- NOTE | 2017-04-10 19:01 | CP.PCM.PN ---
Subjective - Date & Time of Evaluation Date of Evaluation: 04/10/17 Time of Evaluation: 09:40 - Subjective Subjective: clinically same Objective - Vital Signs/Intake and Output Vital Signs (last 24 hours): Temp Pulse Resp BP Pulse Ox 98.4 F 111 H 20 98/67 L 100 04/10/17 15:06 04/10/17 15:06 04/10/17 15:06 04/10/17 15:06 04/10/17 15:06 Intake and Output: 04/10/17 04/11/17 18:59 06:59 Intake Total 1200 Balance 1200 - Medications Medications: Current Medications Apixaban (Eliquis) 5 mg PO BID [facility] Last Admin: 04/10/17 18:24 Dose: 5 mg Cyanocobalamin (Vitamin B12 1000 Mcg Tab) 1,000 mcg PO DAILY [facility] Last Admin: 04/10/17 09:33 Dose: 1,000 mcg Diphenhydramine HCl (Benadryl) 25 mg IVP Q3 PRN PRN Reason: Itching / Pruritus Last Admin: 04/10/17 16:17 Dose: 25 mg Ferrous Sulfate (Feosol) 325 mg PO BID [facility] Last Admin: 04/10/17 18:24 Dose: 325 mg Hydromorphone HCl (Dilaudid) 1 mg IVP Q3 PRN PRN Reason: Pain, moderate (4-7) Last Admin: 04/10/17 16:16 Dose: 1 mg Linezolid (Zyvox 600mg/300ml D5w) 600 mg in 300 mls @ 200 mls/hr IVPB Q12 [facility] Last Admin: 04/10/17 09:32 Dose: 200 mls/hr Mesalamine (Delzicol) 800 mg PO DAILY [facility] Last Admin: 04/10/17 09:33 Dose: 800 mg Pantoprazole Sodium (Protonix Ec Tab) 40 mg PO DAILY [facility] Last Admin: 04/10/17 09:34 Dose: 40 mg - Labs Labs: 04/10/17 07:05 04/10/17 07:05 PT 12.0 SECONDS (9.7-12.2) 03/25/17 15:09 INR 1.1 03/25/17 15:09 APTT 41 SECONDS (21-34) H 03/27/17 07:50 - Constitutional Appears: Well - Head Exam Head Exam: ATRAUMATIC, NORMAL INSPECTION, NORMOCEPHALIC - Eye Exam Eye Exam: EOMI, Normal appearance, PERRL - ENT Exam ENT Exam: Mucous Membranes Moist, Normal Exam - Neck Exam Neck Exam: Full ROM, Normal Inspection. absent: Lymphadenopathy - Respiratory Exam Respiratory Exam: Decreased Breath Sounds - Cardiovascular Exam Cardiovascular Exam: REGULAR RHYTHM, +S1, +S2 - GI/Abdominal Exam GI & Abdominal Exam: Soft, Diminished Bowel Sounds - Rectal Exam Rectal Exam: Deferred Assessment and Plan (1) Abscess Status: Acute (2) Crohn disease Status: Acute (3) Pulmonary embolism Status: Acute (4) Abdominal pain Status: Acute (5) Constipation Status: Acute (6) DVT (deep venous thrombosis) Status: Acute (7) Diarrhea Status: Acute (8) Diarrhea Status: Acute (9) Encounter for wound care Status: Acute (10) Fever Status: Acute (11) Foreign body Status: Acute (12) Intractable abdominal pain Status: Acute (13) Intractable pain Status: Acute (14) Prophylactic measure Status: Acute (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
[2017-04-11] MEDS: DiphenhydrAMINE 50 mg/ml Inj IVP PRN ×7 (01:14→21:24)
[2017-04-11] MEDS: HYDROmorphone 1 mg/ml ISec IVP PRN ×7 (01:15→21:33)
[2017-04-11] MEDS: Pantoprazole 40 mg EC Tab PO SCH (10:55)
[2017-04-11] MEDS: Linezolid 600 mg in D5W 300 ml 600 MG/300 ML BAG IVPB SCH ×2 (10:59→21:45)
--- NOTE | 2017-04-11 14:44 | CP.PCM.PN ---
Subjective - Date & Time of Evaluation Date of Evaluation: 04/11/17 Time of Evaluation: 10:20 - Subjective Subjective: clinically same Objective - Vital Signs/Intake and Output Vital Signs (last 24 hours): Temp Pulse Resp BP Pulse Ox 98.0 F 87 18 105/73 97 04/11/17 08:55 04/11/17 08:55 04/11/17 08:55 04/11/17 08:55 04/11/17 08:55 Intake and Output: 04/11/17 04/11/17 06:59 18:59 Output Total 250 Balance -250 - Medications Medications: Current Medications Apixaban (Eliquis) 5 mg PO BID [facility] Last Admin: 04/11/17 10:58 Dose: 5 mg Cyanocobalamin (Vitamin B12 1000 Mcg Tab) 1,000 mcg PO DAILY [facility] Last Admin: 04/11/17 11:00 Dose: 1,000 mcg Diphenhydramine HCl (Benadryl) 25 mg IVP Q3 PRN PRN Reason: Itching / Pruritus Last Admin: 04/11/17 11:05 Dose: 25 mg Ferrous Sulfate (Feosol) 325 mg PO BID [facility] Last Admin: 04/11/17 10:58 Dose: 325 mg Hydromorphone HCl (Dilaudid) 1 mg IVP Q3 PRN PRN Reason: Pain, moderate (4-7) Last Admin: 04/11/17 11:05 Dose: 1 mg Linezolid (Zyvox 600mg/300ml D5w) 600 mg in 300 mls @ 200 mls/hr IVPB Q12 [facility] Last Admin: 04/11/17 10:59 Dose: 200 mls/hr Mesalamine (Delzicol) 800 mg PO DAILY [facility] Last Admin: 04/11/17 11:00 Dose: 800 mg Pantoprazole Sodium (Protonix Ec Tab) 40 mg PO DAILY [facility] Last Admin: 04/10/17 09:34 Dose: 40 mg - Labs Labs: 04/10/17 07:05 04/10/17 07:05 PT 12.0 SECONDS (9.7-12.2) 03/25/17 15:09 INR 1.1 03/25/17 15:09 APTT 41 SECONDS (21-34) H 03/27/17 07:50 - Constitutional Appears: Well - Head Exam Head Exam: ATRAUMATIC, NORMAL INSPECTION, NORMOCEPHALIC - Eye Exam Eye Exam: EOMI, Normal appearance, PERRL Pupil Exam: NORMAL ACCOMODATION, PERRL - ENT Exam ENT Exam: Mucous Membranes Moist, Normal Exam - Neck Exam Neck Exam: Full ROM, Normal Inspection. absent: Lymphadenopathy - Respiratory Exam Respiratory Exam: Decreased Breath Sounds - Cardiovascular Exam Cardiovascular Exam: REGULAR RHYTHM, +S1, +S2 - GI/Abdominal Exam GI & Abdominal Exam: Soft, Diminished Bowel Sounds - Rectal Exam Rectal Exam: Deferred Assessment and Plan (1) Abscess Status: Acute (2) Crohn disease Status: Acute (3) Pulmonary embolism Status: Acute (4) Abdominal pain Status: Acute (5) Constipation Status: Acute (6) DVT (deep venous thrombosis) Status: Acute (7) Diarrhea Status: Acute (8) Diarrhea Status: Acute (9) Encounter for wound care Status: Acute (10) Fever Status: Acute (11) Foreign body Status: Acute (12) Intractable abdominal pain Status: Acute (13) Intractable pain Status: Acute (14) Prophylactic measure Status: Acute (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
--- NOTE | 2017-04-11 18:30 | CP.PCM.PN ---
Subjective - Date & Time of Evaluation Date of Evaluation: 04/11/17 Time of Evaluation: 04:00 - Subjective Subjective: dictated Objective - Vital Signs/Intake and Output Vital Signs (last 24 hours): Temp Pulse Resp BP Pulse Ox 98.6 F 98 H 20 109/69 98 04/11/17 15:25 04/11/17 15:25 04/11/17 15:25 04/11/17 15:25 04/11/17 15:25 Intake and Output: 04/11/17 04/11/17 06:59 18:59 Output Total 250 Balance -250 - Medications Medications: Current Medications Apixaban (Eliquis) 5 mg PO BID [facility] Last Admin: 04/11/17 10:58 Dose: 5 mg Cyanocobalamin (Vitamin B12 1000 Mcg Tab) 1,000 mcg PO DAILY [facility] Last Admin: 04/11/17 11:00 Dose: 1,000 mcg Diphenhydramine HCl (Benadryl) 25 mg IVP Q3 PRN PRN Reason: Itching / Pruritus Last Admin: 04/11/17 18:11 Dose: 25 mg Ferrous Sulfate (Feosol) 325 mg PO BID [facility] Last Admin: 04/11/17 18:12 Dose: 325 mg Hydromorphone HCl (Dilaudid) 1 mg IVP Q3 PRN PRN Reason: Pain, moderate (4-7) Last Admin: 04/11/17 18:12 Dose: 1 mg Linezolid (Zyvox 600mg/300ml D5w) 600 mg in 300 mls @ 200 mls/hr IVPB Q12 [facility] Last Admin: 04/11/17 10:59 Dose: 200 mls/hr Mesalamine (Delzicol) 800 mg PO DAILY [facility] Last Admin: 04/11/17 11:00 Dose: 800 mg Pantoprazole Sodium (Protonix Ec Tab) 40 mg PO DAILY [facility] Last Admin: 04/11/17 10:55 Dose: 40 mg - Labs Labs: 04/10/17 07:05 04/10/17 07:05 PT 12.0 SECONDS (9.7-12.2) 03/25/17 15:09 INR 1.1 03/25/17 15:09 APTT 41 SECONDS (21-34) H 03/27/17 07:50
[2017-04-12] MEDS: HYDROmorphone 1 mg/ml ISec IVP PRN ×8 (00:38→22:11)
[2017-04-12] MEDS: DiphenhydrAMINE 50 mg/ml Inj IVP PRN ×8 (00:38→22:09)
--- NOTE | 2017-04-12 01:14 | PN ---
DATE: SUBJECTIVE: I went to see Noel Bedolla, he told me the surgeon did not come by today and I have told him I have given him a permission to take a shower and he should have sitz bath and he needs to keep his hygiene clean so that we can get rid of these and also I have told him to cutdown on the pain medications as he seems he is getting addicted to them and so he promises me that he will try to cutdown them. PHYSICAL EXAMINATION: VITAL SIGNS: T-max is 98.6, pulse 98, blood pressure 109/69, and respirations are 20. HEENT: Head is atraumatic and normocephalic. NECK: Supple. LUNGS: Clear. HEART: S1 and S2 is regular. ABDOMEN: Soft. Colostomy is functioning. EXTREMITIES: Have no edema. He has dressing in the perineal area over the abscesses. LABORATORY DATA: White count is 9, hemoglobin 11.2, hematocrit 36, and creatinine is 0.8. ASSESSMENT AND PLAN: We did had MRSA before and he is on Zyvox and to make sure it has been given. He is on Zyvox, so I will continue that and I am hoping we can get him home sometime Thursday or Thursday if they are not plaining to do any incision and drainage further. Santosh Daniel MD
--- NOTE | 2017-04-12 07:41 | CP.PCM.PN ---
Subjective - Date & Time of Evaluation Date of Evaluation: 04/12/17 Time of Evaluation: 06:20 - Subjective Subjective: clinically same Objective - Vital Signs/Intake and Output Vital Signs (last 24 hours): Temp Pulse Resp BP Pulse Ox 98.3 F 107 H 20 107/68 99 04/11/17 23:20 04/11/17 23:20 04/11/17 23:20 04/11/17 23:20 04/11/17 23:20 Intake and Output: 04/12/17 04/12/17 06:59 18:59 Intake Total 840 Output Total 1500 Balance -660 - Medications Medications: Current Medications Apixaban (Eliquis) 5 mg PO BID [facility] Last Admin: 04/11/17 18:40 Dose: 5 mg Cyanocobalamin (Vitamin B12 1000 Mcg Tab) 1,000 mcg PO DAILY [facility] Last Admin: 04/11/17 11:00 Dose: 1,000 mcg Diphenhydramine HCl (Benadryl) 25 mg IVP Q3 PRN PRN Reason: Itching / Pruritus Last Admin: 04/12/17 06:56 Dose: 25 mg Ferrous Sulfate (Feosol) 325 mg PO BID [facility] Last Admin: 04/11/17 18:12 Dose: 325 mg Hydromorphone HCl (Dilaudid) 1 mg IVP Q3 PRN PRN Reason: Pain, moderate (4-7) Last Admin: 04/12/17 06:56 Dose: 1 mg Linezolid (Zyvox 600mg/300ml D5w) 600 mg in 300 mls @ 200 mls/hr IVPB Q12 [facility] Last Admin: 04/11/17 21:45 Dose: 200 mls/hr Mesalamine (Delzicol) 800 mg PO DAILY [facility] Last Admin: 04/11/17 11:00 Dose: 800 mg Pantoprazole Sodium (Protonix Ec Tab) 40 mg PO DAILY [facility] Last Admin: 04/11/17 10:55 Dose: 40 mg - Labs Labs: 04/10/17 07:05 04/10/17 07:05 PT 12.0 SECONDS (9.7-12.2) 03/25/17 15:09 INR 1.1 03/25/17 15:09 APTT 41 SECONDS (21-34) H 03/27/17 07:50 - Constitutional Appears: Well - Head Exam Head Exam: ATRAUMATIC, NORMAL INSPECTION, NORMOCEPHALIC - Eye Exam Eye Exam: EOMI, Normal appearance, PERRL Pupil Exam: NORMAL ACCOMODATION, PERRL - ENT Exam ENT Exam: Mucous Membranes Moist, Normal Exam - Neck Exam Neck Exam: Full ROM, Normal Inspection. absent: Lymphadenopathy - Respiratory Exam Respiratory Exam: Decreased Breath Sounds - Cardiovascular Exam Cardiovascular Exam: REGULAR RHYTHM, +S1, +S2 - GI/Abdominal Exam GI & Abdominal Exam: Soft, Diminished Bowel Sounds - Rectal Exam Rectal Exam: Deferred Assessment and Plan (1) Abscess Status: Acute (2) Crohn disease Status: Acute (3) Pulmonary embolism Status: Acute (4) Abdominal pain Status: Acute (5) Constipation Status: Acute (6) DVT (deep venous thrombosis) Status: Acute (7) Diarrhea Status: Acute (8) Diarrhea Status: Acute (9) Encounter for wound care Status: Acute (10) Fever Status: Acute (11) Foreign body Status: Acute (12) Intractable abdominal pain Status: Acute (13) Intractable pain Status: Acute (14) Prophylactic measure Status: Acute (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
[2017-04-12] MEDS: Pantoprazole 40 mg EC Tab PO SCH (10:09)
[2017-04-12] MEDS: Linezolid 600 mg in D5W 300 ml 600 MG/300 ML BAG IVPB SCH ×2 (11:13→22:12)
[2017-04-13] MEDS: DiphenhydrAMINE 50 mg/ml Inj IVP PRN ×7 (01:20→21:08)
[2017-04-13] MEDS: HYDROmorphone 1 mg/ml ISec IVP PRN ×7 (01:20→21:09)
--- NOTE | 2017-04-13 09:27 | PN ---
DATE: 04/10/17 SUBJECTIVE: The patient was seen today. He says that he was having some bleeding from the abscess, which may be opened. He is going to be seen by Dr. Taylor tomorrow. He says, "I hope hat happens." I told him that he is getting headache due to the drugs. He wanted to shower. We will leave a note for the nurse to give him a shower tomorrow and also sitz bath as needed. PHYSICAL EXAMINATION GENERAL: He still remains acutely ill. VITAL SIGNS: T-max is 98.4, pulse 111, blood pressure 98/67, respirations are 20. HEENT: Head is atraumatic. NECK: Supple. LUNGS: Clear. HEART: S1 and S2, regular. ABDOMEN: Soft, nontender. No guarding and no rigidity is present. He has a colostomy. EXTREMITIES: He has no edema and he has dressing present on the wounds. PLAN: He is still on Zyvox IV and we will follow. Santosh Daniel MD
[2017-04-13] MEDS: Pantoprazole 40 mg EC Tab PO SCH (10:46)
[2017-04-13] MEDS: Linezolid 600 mg in D5W 300 ml 600 MG/300 ML BAG IVPB SCH ×2 (10:48→21:11)
--- NOTE | 2017-04-13 12:53 | CP.PCM.PN ---
Subjective - Date & Time of Evaluation Date of Evaluation: 04/13/17 Time of Evaluation: 12:51 - Subjective Subjective: Coverage for Dr Shiloh campoverde Pt seen and examined Chart Reviewed No events noted Objective - Vital Signs/Intake and Output Vital Signs (last 24 hours): Temp Pulse Resp BP Pulse Ox 98.4 F 90 18 119/7 L 99 04/13/17 08:09 04/13/17 08:09 04/13/17 08:09 04/13/17 08:09 04/13/17 08:09 Intake and Output: 04/13/17 04/13/17 06:59 18:59 Intake Total 1140 Output Total 1200 Balance -60 - Medications Medications: Current Medications Apixaban (Eliquis) 5 mg PO BID [facility] Last Admin: 04/13/17 10:47 Dose: 5 mg Cyanocobalamin (Vitamin B12 1000 Mcg Tab) 1,000 mcg PO DAILY [facility] Last Admin: 04/13/17 10:50 Dose: 1,000 mcg Diphenhydramine HCl (Benadryl) 25 mg IVP Q3 PRN PRN Reason: Itching / Pruritus Last Admin: 04/13/17 11:02 Dose: 25 mg Ferrous Sulfate (Feosol) 325 mg PO BID [facility] Last Admin: 04/13/17 10:47 Dose: 325 mg Hydromorphone HCl (Dilaudid) 1 mg IVP Q3 PRN PRN Reason: Pain, moderate (4-7) Last Admin: 04/13/17 11:02 Dose: 1 mg Linezolid (Zyvox 600mg/300ml D5w) 600 mg in 300 mls @ 200 mls/hr IVPB Q12 [facility] Last Admin: 04/13/17 10:48 Dose: 200 mls/hr Mesalamine (Delzicol) 800 mg PO DAILY [facility] Last Admin: 04/13/17 10:47 Dose: 800 mg Pantoprazole Sodium (Protonix Ec Tab) 40 mg PO DAILY [facility] Last Admin: 04/13/17 10:46 Dose: 40 mg - Labs Labs: 04/10/17 07:05 04/10/17 07:05 PT 12.0 SECONDS (9.7-12.2) 03/25/17 15:09 INR 1.1 03/25/17 15:09 APTT 41 SECONDS (21-34) H 03/27/17 07:50 - Head Exam Head Exam: NORMAL INSPECTION - Eye Exam Eye Exam: Normal appearance - ENT Exam ENT Exam: Mucous Membranes Moist - Neck Exam Neck Exam: Normal Inspection - Respiratory Exam Respiratory Exam: Clear to Ausculation Bilateral - Cardiovascular Exam Cardiovascular Exam: REGULAR RHYTHM, +S1, +S2 - GI/Abdominal Exam GI & Abdominal Exam: Soft, Normal Bowel Sounds - Neurological Exam Neurological Exam: Alert, Oriented x3 Assessment and Plan - Assessment and Plan (Free Text) Assessment: Crohns Dz s/p perianal I&D - POD 13 Continue monitoring ostomy output- currently solid stool formation Daily dressing changes as per surgery Dilauded 1mg IVP q3hrs prn Follow up Surgery team's reevaluation Perirectal abscess cx 03/25: MRSA Rectum cx 03/22: Corynebacterium Continue Zyvoxx 600mg IVPB q12hrs for 10 days started on 03/29 Follow up ID recs for continued abx Contact precautions Continue mesalamine Pulmonary embolism Small peripheral RLL PE identified on CT chest 03/22 Pulmonary embolism - small, no evidence of RV strain or enlargement, anticoagulate with NOAC Eliquis 5mg PO BID Will discuss work up as an outpatient when his greater issues are stable Echo- normal LV function- EF 65-70%
--- NOTE | 2017-04-13 20:10 | CP.PCM.PN ---
Subjective - Date & Time of Evaluation Date of Evaluation: 04/13/17 Time of Evaluation: 03:30 - Subjective Subjective: dictated Objective - Vital Signs/Intake and Output Vital Signs (last 24 hours): Temp Pulse Resp BP Pulse Ox 98.2 F 78 20 126/90 96 04/13/17 15:00 04/13/17 15:00 04/13/17 15:00 04/13/17 15:00 04/13/17 15:00 Intake and Output: 04/13/17 04/14/17 18:59 06:59 Intake Total 300 Output Total 900 Balance -600 - Medications Medications: Current Medications Apixaban (Eliquis) 5 mg PO BID [facility] Last Admin: 04/13/17 17:52 Dose: 5 mg Cyanocobalamin (Vitamin B12 1000 Mcg Tab) 1,000 mcg PO DAILY [facility] Last Admin: 04/13/17 10:50 Dose: 1,000 mcg Diphenhydramine HCl (Benadryl) 25 mg IVP Q3 PRN PRN Reason: Itching / Pruritus Last Admin: 04/13/17 17:50 Dose: 25 mg Ferrous Sulfate (Feosol) 325 mg PO BID [facility] Last Admin: 04/13/17 17:49 Dose: 325 mg Hydromorphone HCl (Dilaudid) 1 mg IVP Q3 PRN PRN Reason: Pain, moderate (4-7) Last Admin: 04/13/17 17:50 Dose: 1 mg Linezolid (Zyvox 600mg/300ml D5w) 600 mg in 300 mls @ 200 mls/hr IVPB Q12 [facility] Last Admin: 04/13/17 10:48 Dose: 200 mls/hr Mesalamine (Delzicol) 800 mg PO DAILY [facility] Last Admin: 04/13/17 10:47 Dose: 800 mg Pantoprazole Sodium (Protonix Ec Tab) 40 mg PO DAILY [facility] Last Admin: 04/13/17 10:46 Dose: 40 mg - Labs Labs: 04/10/17 07:05 04/10/17 07:05 PT 12.0 SECONDS (9.7-12.2) 03/25/17 15:09 INR 1.1 03/25/17 15:09 APTT 41 SECONDS (21-34) H 03/27/17 07:50
[2017-04-14] MEDS: DiphenhydrAMINE 50 mg/ml Inj IVP PRN ×8 (00:13→22:43)
[2017-04-14] MEDS: HYDROmorphone 1 mg/ml ISec IVP PRN ×8 (00:13→22:44)
--- NOTE | 2017-04-14 02:15 | PN ---
DATE: SUBJECTIVE: The patient is 22-year-old. He says that his abscess is now bleeding and we are still waiting for the surgeon to do an I&D. He also complains of diarrhea; however, his colostomy had undigested particles of food and some watery issues, but did no show any gross diarrhea. PHYSICAL EXAMINATION: GENERAL: He is awake, alert. VITAL SIGNS: His vitals are stable otherwise. T-max is 98.2, pulse 78, blood pressure 126/90, and respiratory rate is 20. HEENT: Head is atraumatic. NECK: He has no problems now. He remains on blood thinner as he had DVT in the right neck. LUNGS: Clear. HEART: S1 and S2 is regular. ABDOMEN: Soft, nontender. Colostomy has undigested food. EXTREMITIES: Have no edema. ASSESSMENT AND PLAN: He has ulceration in the buttock area between both buttocks, which continues and has abscesses in the groin area, which I am surprised as he does have ileostomy. I failed to understand why he would continue to have abscesses. Except for his low immune status, he did say he did sitz bath, but he has not taken the bath. Plan is to continue same antibiotics since he says he is developing diarrhea with Zyvox. We will change the medication to vancomycin and wait for the surgeon to do I&D. Santosh Daniel MD
[2017-04-14] MEDS: Pantoprazole 40 mg EC Tab PO SCH (10:09)
[2017-04-14] MEDS: Linezolid 600 mg in D5W 300 ml 600 MG/300 ML BAG IVPB SCH ×2 (11:15→22:00)
--- NOTE | 2017-04-14 16:25 | CP.PCM.PN ---
Subjective - Date & Time of Evaluation Date of Evaluation: 04/14/17 Time of Evaluation: 16:24 Objective - Vital Signs/Intake and Output Vital Signs (last 24 hours): Temp Pulse Resp BP Pulse Ox 97.9 F 91 H 18 108/76 99 04/14/17 07:00 04/14/17 07:00 04/14/17 07:00 04/14/17 07:00 04/14/17 07:00 Intake and Output: 04/14/17 04/14/17 06:59 18:59 Intake Total 860 Output Total 1125 Balance -265 - Medications Medications: Current Medications Apixaban (Eliquis) 5 mg PO BID [facility] Last Admin: 04/14/17 10:10 Dose: 5 mg Cyanocobalamin (Vitamin B12 1000 Mcg Tab) 1,000 mcg PO DAILY [facility] Last Admin: 04/14/17 10:10 Dose: 1,000 mcg Diphenhydramine HCl (Benadryl) 25 mg IVP Q3 PRN PRN Reason: Itching / Pruritus Last Admin: 04/14/17 16:22 Dose: 25 mg Ferrous Sulfate (Feosol) 325 mg PO BID [facility] Last Admin: 04/14/17 10:09 Dose: 325 mg Hydromorphone HCl (Dilaudid) 1 mg IVP Q3 PRN PRN Reason: Pain, moderate (4-7) Last Admin: 04/14/17 16:23 Dose: 1 mg Linezolid (Zyvox 600mg/300ml D5w) 600 mg in 300 mls @ 200 mls/hr IVPB Q12 [facility] Last Admin: 04/14/17 11:15 Dose: 200 mls/hr Mesalamine (Delzicol) 800 mg PO DAILY [facility] Last Admin: 04/14/17 10:10 Dose: 800 mg Pantoprazole Sodium (Protonix Ec Tab) 40 mg PO DAILY [facility] Last Admin: 04/14/17 10:09 Dose: 40 mg - Labs Labs: 04/10/17 07:05 04/10/17 07:05 PT 12.0 SECONDS (9.7-12.2) 03/25/17 15:09 INR 1.1 03/25/17 15:09 APTT 41 SECONDS (21-34) H 03/27/17 07:50
--- NOTE | 2017-04-14 22:30 | CP.PCM.PN ---
Subjective - Date & Time of Evaluation Date of Evaluation: 04/14/17 Time of Evaluation: 03:30 - Subjective Subjective: dictated Objective - Vital Signs/Intake and Output Vital Signs (last 24 hours): Temp Pulse Resp BP Pulse Ox 98.1 F 88 20 110/79 100 04/14/17 17:05 04/14/17 17:05 04/14/17 17:05 04/14/17 17:05 04/14/17 17:05 Intake and Output: 04/14/17 04/15/17 18:59 06:59 Intake Total 780 Output Total 600 Balance 180 - Medications Medications: Current Medications Apixaban (Eliquis) 5 mg PO BID [facility] Last Admin: 04/14/17 17:49 Dose: 5 mg Cyanocobalamin (Vitamin B12 1000 Mcg Tab) 1,000 mcg PO DAILY [facility] Last Admin: 04/14/17 10:10 Dose: 1,000 mcg Diphenhydramine HCl (Benadryl) 25 mg IVP Q3 PRN PRN Reason: Itching / Pruritus Last Admin: 04/14/17 19:37 Dose: 25 mg Ferrous Sulfate (Feosol) 325 mg PO BID [facility] Last Admin: 04/14/17 17:49 Dose: 325 mg Hydromorphone HCl (Dilaudid) 1 mg IVP Q3 PRN PRN Reason: Pain, moderate (4-7) Last Admin: 04/14/17 19:37 Dose: 1 mg Linezolid (Zyvox 600mg/300ml D5w) 600 mg in 300 mls @ 200 mls/hr IVPB Q12 [facility] Last Admin: 04/14/17 22:00 Dose: 200 mls/hr Mesalamine (Delzicol) 800 mg PO DAILY [facility] Last Admin: 04/14/17 10:10 Dose: 800 mg Pantoprazole Sodium (Protonix Ec Tab) 40 mg PO DAILY [facility] Last Admin: 04/14/17 10:09 Dose: 40 mg - Labs Labs: 04/10/17 07:05 04/10/17 07:05 PT 12.0 SECONDS (9.7-12.2) 03/25/17 15:09 INR 1.1 03/25/17 15:09 APTT 41 SECONDS (21-34) H 03/27/17 07:50
[2017-04-15] MEDS: DiphenhydrAMINE 50 mg/ml Inj IVP PRN ×7 (02:09→21:32)
[2017-04-15] MEDS: HYDROmorphone 1 mg/ml ISec IVP PRN ×7 (02:10→21:32)
--- NOTE | 2017-04-15 02:45 | PN ---
DATE: 04/14/2017 SUBJECTIVE: The patient remains at , and he states he has lot of pain when he took sitz bath, so he is refusing for that. He is still awaiting for the surgery to come and do an I&D. He continues to be on Zyvox. I think Zyvox is a better choice than vancomycin at this time, will continue that. PHYSICAL EXAMINATION: GENERAL: He denies any neck pain. His DVT has improved. VITAL SIGNS: Stable. T-max is 98.1, pulse 88, blood pressure 110/79 and respirations 20. HEENT: Head is atraumatic. Pupils are reacting to light. NECK: Supple. HEART: S1 and S2 are regular. LUNGS: Clear. ABDOMEN: Soft, nontender. Colostomy has undigested particles and he remains with perineal abscesses and I am not sure why he continues to have that. EXTREMITIES: Have no edema, clubbing or cyanosis. ASSESSMENT AND PLAN: He has Crohn's disease. His last culture showed MRSA and he is on Zyvox, and he has been here since its almost 20 plus days and I am waiting for surgery to do an I&D and once it drained, will see if he can go home on Zyvox p.o. However, I will be away till Thursday, which is actually 04/20/[address] Xavier will be covering me. If needed, he can be called. Santosh Daniel MD
[2017-04-15] MEDS: Linezolid 600 mg in D5W 300 ml 600 MG/300 ML BAG IVPB SCH ×2 (10:52→21:34)
[2017-04-15] MEDS: Pantoprazole 40 mg EC Tab PO SCH (10:55)
--- NOTE | 2017-04-15 14:51 | CP.PCM.PN ---
Subjective - Date & Time of Evaluation Date of Evaluation: 04/15/17 Time of Evaluation: 14:51 Objective - Vital Signs/Intake and Output Vital Signs (last 24 hours): Temp Pulse Resp BP Pulse Ox 98.1 F 96 H 18 108/73 97 04/15/17 08:20 04/15/17 08:20 04/15/17 08:20 04/15/17 08:20 04/15/17 08:20 Intake and Output: 04/15/17 04/15/17 06:59 18:59 Intake Total 1020 Output Total 2525 Balance -1505 - Medications Medications: Current Medications Apixaban (Eliquis) 5 mg PO BID [facility] Last Admin: 04/15/17 10:55 Dose: 5 mg Cyanocobalamin (Vitamin B12 1000 Mcg Tab) 1,000 mcg PO DAILY [facility] Last Admin: 04/15/17 10:56 Dose: 1,000 mcg Diphenhydramine HCl (Benadryl) 25 mg IVP Q3 PRN PRN Reason: Itching / Pruritus Last Admin: 04/15/17 11:57 Dose: 25 mg Ferrous Sulfate (Feosol) 325 mg PO BID [facility] Last Admin: 04/15/17 10:55 Dose: 325 mg Hydromorphone HCl (Dilaudid) 1 mg IVP Q3 PRN PRN Reason: Pain, moderate (4-7) Last Admin: 04/15/17 11:58 Dose: 1 mg Linezolid (Zyvox 600mg/300ml D5w) 600 mg in 300 mls @ 200 mls/hr IVPB Q12 [facility] Last Admin: 04/15/17 10:52 Dose: 200 mls/hr Mesalamine (Delzicol) 800 mg PO DAILY [facility] Last Admin: 04/15/17 10:57 Dose: 800 mg Pantoprazole Sodium (Protonix Ec Tab) 40 mg PO DAILY [facility] Last Admin: 04/15/17 10:55 Dose: 40 mg - Labs Labs: 04/10/17 07:05 04/10/17 07:05 PT 12.0 SECONDS (9.7-12.2) 03/25/17 15:09 INR 1.1 03/25/17 15:09 APTT 41 SECONDS (21-34) H 03/27/17 07:50
--- NOTE | 2017-04-15 16:46 | CP.PCM.CON ---
<Mikal Rashid - Last Filed: 04/15/17 16:35> History of Present Illness - History of Present Illness History of Present Illness: Pt is a 22 y.o M w/ PMHx of Crohn's disease and recurrent abscesses. General Surgery was consulted for nitza-anal abscess. Pt reports non-healing ulcers along mid gluteal region and perineal region. At time of examination there was a fluctuant area along the 7 o'clock nitza-anal region. Patient reports moderate pain along wound sites. PMHx - see above PSHx - colon resection, colostomy, multiple I&D Allergies - Morphine Social - denies drug use, alcohol use, tobacco use Review of Systems - Review of Systems Review of Systems: 12 pt ROS unremarkable, except as stated in HPI Past Patient History - Infectious Disease Hx of Infectious Diseases: None - Past Medical History & Family History Past Medical History?: Yes - Past Social History Smoking Status: Never Smoked - CARDIAC Hx Cardiac Disorders: No - PULMONARY Hx Respiratory Disorders: No - NEUROLOGICAL Hx Neurological Disorder: No - HEENT Hx HEENT Problems: No - RENAL Hx Chronic Kidney Disease: No - ENDOCRINE/METABOLIC Hx Endocrine Disorders: No - HEMATOLOGICAL/ONCOLOGICAL Hx Blood Disorders: No - INTEGUMENTARY Hx Dermatological Problems: Yes Other/Comment: Perineal wound. Rectal abcess - MUSCULOSKELETAL/RHEUMATOLOGICAL Hx Musculoskeletal Disorders: No Hx Falls: No - GASTROINTESTINAL Hx Crohn's Disease: Yes (COLOSTOMY 2016) - GENITOURINARY/GYNECOLOGICAL Hx Genitourinary Disorders: No - PSYCHIATRIC Hx Depression: Yes Hx Substance Use: No - SURGICAL HISTORY Hx Surgeries: Yes (SEE COMMENT) Other/Comment: LOOP COLOSTOMY. Perineal wound. Right upper arm PICC line. COLON RESECTION - ANESTHESIA Hx Anesthesia: Yes Hx Anesthesia Reactions: No Hx Malignant Hyperthermia: No Has any member of the family had a problem w/ anesthesia?: No Meds Home Medications: Home Medication List Medication Instructions Recorded Confirmed Type Linezolid [Zyvox] 600 mg PO BID #20 tab 03/31/17 Rx Allergies/Adverse Reactions: Allergies Allergy/AdvReac Type Severity Reaction Status Date / Time morphine Allergy Severe ITCHING Verified 03/22/17 18:32 - Medications Medications: Current Medications Apixaban (Eliquis) 5 mg PO BID [facility] Last Admin: 04/15/17 10:55 Dose: 5 mg Cyanocobalamin (Vitamin B12 1000 Mcg Tab) 1,000 mcg PO DAILY [facility] Last Admin: 04/15/17 10:56 Dose: 1,000 mcg Diphenhydramine HCl (Benadryl) 25 mg IVP Q3 PRN PRN Reason: Itching / Pruritus Last Admin: 04/15/17 15:15 Dose: 25 mg Ferrous Sulfate (Feosol) 325 mg PO BID [facility] Last Admin: 04/15/17 10:55 Dose: 325 mg Hydromorphone HCl (Dilaudid) 1 mg IVP Q3 PRN PRN Reason: Pain, moderate (4-7) Last Admin: 04/15/17 15:15 Dose: 1 mg Linezolid (Zyvox 600mg/300ml D5w) 600 mg in 300 mls @ 200 mls/hr IVPB Q12 [facility] Last Admin: 04/15/17 10:52 Dose: 200 mls/hr Mesalamine (Delzicol) 800 mg PO DAILY [facility] Last Admin: 04/15/17 10:57 Dose: 800 mg Pantoprazole Sodium (Protonix Ec Tab) 40 mg PO DAILY [facility] Last Admin: 04/15/17 10:55 Dose: 40 mg Physical Exam - Constitutional Appears: No Acute Distress - Head Exam Head Exam: NORMOCEPHALIC - Eye Exam Eye Exam: Normal appearance - ENT Exam ENT Exam: Mucous Membranes Moist - Respiratory Exam Respiratory Exam: NORMAL BREATHING PATTERN - Cardiovascular Exam Cardiovascular Exam: +S1, +S2 - GI/Abdominal Exam GI & Abdominal Exam: Soft - Rectal Exam Additional comments: fluctuant area along 7 o'clock nitza-anal region - Neurological Exam Neurological exam: Alert, Oriented x3 - Psychiatric Exam Psychiatric exam: Normal Mood - Skin Skin Exam: Dry, Intact, Warm Results - Vital Signs Recent Vital Signs: Last Vital Signs Temp 98.1 F 04/15/17 15:51 Pulse 102 H 04/15/17 15:51 Resp 19 04/15/17 15:51 BP 112/77 04/15/17 15:51 Pulse Ox 100 04/15/17 15:51 - Labs Result Diagrams: 04/10/17 07:05 04/10/17 07:05 Assessment & Plan - Assessment and Plan (Free Text) Assessment: 22 y.o M w/ PMHx of Crohn's disease and recurrent abscesses. Current abscess formation along 7 o'clock nitza-anal region -Will need I&D -C/w abx as per ID -Medical management as per primary -local wound care -Further recs per Dr. Claudia Rashid PGY-2 <Temo Taylor - Last Filed: 04/19/17 18:27> Meds - Medications Medications: Current Medications Apixaban (Eliquis) 5 mg PO BID [facility] Last Admin: 04/19/17 17:41 Dose: 5 mg Cyanocobalamin (Vitamin B12 1000 Mcg Tab) 1,000 mcg PO DAILY [facility] Last Admin: 04/19/17 09:48 Dose: 1,000 mcg Diphenhydramine HCl (Benadryl) 25 mg IVP Q3 PRN PRN Reason: Itching / Pruritus Last Admin: 04/19/17 16:08 Dose: 25 mg Ferrous Sulfate (Feosol) 325 mg PO BID [facility] Last Admin: 04/19/17 17:41 Dose: 325 mg Hydromorphone HCl (Dilaudid) 1 mg IVP Q3H PRN PRN Reason: Pain, moderate (4-7) Last Admin: 04/19/17 16:08 Dose: 1 mg Linezolid (Zyvox 600mg/300ml D5w) 600 mg in 300 mls @ 200 mls/hr IVPB Q12 [facility] Last Admin: 04/19/17 09:48 Dose: 200 mls/hr Lactated Ringer's (Lactated Ringer's) 1,000 mls @ 100 mls/hr IV .Q10H [facility] Last Admin: 04/19/17 15:09 Dose: Not Given Mesalamine (Delzicol) 800 mg PO DAILY [facility] Last Admin: 04/19/17 09:47 Dose: 800 mg Pantoprazole Sodium (Protonix Ec Tab) 40 mg PO DAILY [facility] Last Admin: 04/19/17 09:45 Dose: 40 mg Results - Vital Signs Recent Vital Signs: Last Vital Signs Temp 97.7 F 04/19/17 15:12 Pulse 83 04/19/17 15:12 Resp 20 04/19/17 15:12 BP 102/71 04/19/17 15:12 Pulse Ox 100 04/19/17 15:12 - Labs Result Diagrams: 04/17/17 08:11 04/17/17 08:11 Attending/Attestation - Attestation I have personally seen and examined this patient.: Yes I have fully participated in the care of the patient.: Yes I have reviewed all pertinent clinical information: Yes Notes (Text): 04/19/17 18:25 Pt was seen and examined at bedside Agree with above note and assessment Pt with Crohns dis and Recurrent gluteal abscess Local wound care C/w IV antibiotics Stop Eliquis Start Heparin drip for PE and DVT Plan d.w pt in detail Risk and benefit explained in detail.
[2017-04-16] MEDS: HYDROmorphone 1 mg/ml ISec IVP PRN ×7 (01:02→21:26)
[2017-04-16] MEDS: DiphenhydrAMINE 50 mg/ml Inj IVP PRN ×7 (01:02→21:26)
[2017-04-16] MEDS: Pantoprazole 40 mg EC Tab PO SCH (10:05)
[2017-04-16] MEDS: Linezolid 600 mg in D5W 300 ml 600 MG/300 ML BAG IVPB SCH ×2 (10:06→21:25)
--- NOTE | 2017-04-16 19:32 | CP.PCM.PN ---
Subjective - Date & Time of Evaluation Date of Evaluation: 04/16/17 Time of Evaluation: 19:32 Objective - Vital Signs/Intake and Output Vital Signs (last 24 hours): Temp Pulse Resp BP Pulse Ox 97.5 F L 87 20 112/74 100 04/16/17 15:10 04/16/17 15:10 04/16/17 15:10 04/16/17 15:10 04/16/17 15:10 - Medications Medications: Current Medications Apixaban (Eliquis) 5 mg PO BID [facility] Last Admin: 04/16/17 10:03 Dose: 5 mg Cyanocobalamin (Vitamin B12 1000 Mcg Tab) 1,000 mcg PO DAILY [facility] Last Admin: 04/16/17 10:05 Dose: 1,000 mcg Diphenhydramine HCl (Benadryl) 25 mg IVP Q3 PRN PRN Reason: Itching / Pruritus Last Admin: 04/16/17 18:15 Dose: 25 mg Ferrous Sulfate (Feosol) 325 mg PO BID [facility] Last Admin: 04/16/17 18:15 Dose: 325 mg Hydromorphone HCl (Dilaudid) 1 mg IVP Q3H PRN PRN Reason: Pain, moderate (4-7) Last Admin: 04/16/17 18:16 Dose: 1 mg Linezolid (Zyvox 600mg/300ml D5w) 600 mg in 300 mls @ 200 mls/hr IVPB Q12 [facility] Last Admin: 04/16/17 10:06 Dose: 200 mls/hr Mesalamine (Delzicol) 800 mg PO DAILY [facility] Last Admin: 04/16/17 10:05 Dose: 800 mg Pantoprazole Sodium (Protonix Ec Tab) 40 mg PO DAILY [facility] Last Admin: 04/16/17 10:05 Dose: 40 mg - Labs Labs: 04/10/17 07:05 04/10/17 07:05 PT 12.0 SECONDS (9.7-12.2) 03/25/17 15:09 INR 1.1 03/25/17 15:09 APTT 41 SECONDS (21-34) H 03/27/17 07:50
[2017-04-17] MEDS: DiphenhydrAMINE 50 mg/ml Inj IVP PRN ×8 (00:37→23:46)
[2017-04-17] MEDS: HYDROmorphone 1 mg/ml ISec IVP PRN ×8 (00:37→23:46)
[2017-04-17 08:19] LABS: BASO # 0.1 K/uL (0.0-0.2); BASO % 0.7 % (0.0-2.0); EOS # 0.6 K/uL (0.0-0.7); EOS % 6.2 % (0.0-4.0); HEMATOCRIT 37.9 % (35.0-51.0); LYMPH # 3.3 K/uL (1.0-4.3); LYMPH % 34.6 % (20.0-40.0); MEAN CELL VOLUME 70.9 fL (80.0-94.0); MEAN CORPUSCULAR HEMOGLOBIN 21.5 pg (27.0-31.0); MEAN CORPUSCULAR HGB CONC 30.4 g/dL (33.0-37.0); MEAN PLATELET VOLUME 7.3 fL (7.2-11.7); MONO # 0.5 K/uL (0.0-0.8); MONO % 5.4 % (0.0-10.0); NRBC % 0.1 % (0.0-2.0); RED CELL DISTRIBUTION WIDTH 18.1 % (11.5-14.5); WHITE BLOOD COUNT 9.6 K/uL (4.8-10.8)
[2017-04-17 08:29] LABS: CHLORIDE 101 mmol/L (98-107); POTASSIUM 4.4 mmol/L (3.6-5.2); SODIUM 142 mmol/L (132-148)
[2017-04-17 08:31] LABS: BILIRUBIN,TOTAL 0.3 mg/dL (0.2-1.3); CARBON DIOXIDE 25 mmol/L (22-30); GFR AFRICAN-AMERICAN > 60
[2017-04-17 08:32] LABS: ALKALINE PHOSPHATASE 145 U/L (38-126); ALT/SGPT 31 U/L (21-72); AST/SGOT 20 U/L (17-59); BLOOD UREA NITROGEN 16 mg/dL (9-20); CALCIUM 8.9 mg/dl (8.6-10.4); GLUCOSE,RANDOM 99 mg/dL (75-110); TOTAL PROTEIN 7.7 g/dL (6.3-8.3)
[2017-04-17] MEDS: Pantoprazole 40 mg EC Tab PO SCH (09:55)
[2017-04-17] MEDS: Linezolid 600 mg in D5W 300 ml 600 MG/300 ML BAG IVPB SCH ×2 (09:56→21:56)
[2017-04-17] MEDS ORDERED: ceFAZolin IV 1 gm in Dextrose 0 GM/0 ML BAG IVPB ONE (12:03)
[2017-04-17] MEDS ORDERED: Bupivacaine 0.5%/Epi 1:200,000 (10 ML SOL) ONE (12:04)
[2017-04-17] MEDS ORDERED: Lidocaine 1% Inj (20ml) ONE (12:04)
[2017-04-17] MEDS: Lactated Ringer's 1,000 ML IV ONE (12:13)
[2017-04-17] MEDS ORDERED: Lactated Ringer's 1,000 ML IV ONE (12:13)
[2017-04-17] MEDS ORDERED: Midazolam 2 MG/2 ML VIAL ONE (12:52)
[2017-04-17] MEDS ORDERED: Propofol 10 mg/ml Inj (20 ML) ONE (12:58)
--- NOTE | 2017-04-17 13:27 | PCM.SURG1 ---
Surgeon's Initial Post Op Note - Surgeon's Notes Surgeon: MD Claudia Tool Designer: KOREY [email or web address] Pre-Operative Diagnosis: left inferior Gluteal abscess Operative Findings: collection Post-Operative Diagnosis: left inferior gluteal abscess Operation Performed: incision and drainage of gluteal abscess Specimen/Specimens Removed: purulent material Estimated Blood Loss: EBL {In ML}: 15 Date of Surgery/Procedure: 04/17/17 Time of Surgery/Procedure: 13:00
[2017-04-17] MEDS ORDERED: HYDROmorphone 0.5 mg/0.5 ml ISec IVP PRN (13:28)
--- NOTE | 2017-04-17 14:45 | CP.PCM.PN ---
Subjective - Date & Time of Evaluation Date of Evaluation: 04/17/17 Time of Evaluation: 14:45 Objective - Vital Signs/Intake and Output Vital Signs (last 24 hours): Temp Pulse Resp BP Pulse Ox 97.4 F L 86 15 99/54 L 99 04/17/17 14:10 04/17/17 14:10 04/17/17 14:10 04/17/17 14:10 04/17/17 14:10 Intake and Output: 04/17/17 04/17/17 06:59 18:59 Intake Total 780 Output Total 700 500 Balance 80 -500 - Medications Medications: Current Medications Apixaban (Eliquis) 5 mg PO BID [facility] Last Admin: 04/16/17 10:03 Dose: 5 mg Cyanocobalamin (Vitamin B12 1000 Mcg Tab) 1,000 mcg PO DAILY [facility] Last Admin: 04/17/17 09:55 Dose: 1,000 mcg Diphenhydramine HCl (Benadryl) 25 mg IVP Q3 PRN PRN Reason: Itching / Pruritus Last Admin: 04/17/17 14:32 Dose: 25 mg Ferrous Sulfate (Feosol) 325 mg PO BID [facility] Last Admin: 04/17/17 09:54 Dose: 325 mg Hydromorphone HCl (Dilaudid) 1 mg IVP Q3H PRN PRN Reason: Pain, moderate (4-7) Last Admin: 04/17/17 14:33 Dose: 1 mg Hydromorphone HCl (Dilaudid) 0.5 mg IVP Q5M PRN PRN Reason: Pain, moderate (4-7) Stop: 04/17/17 15:30 Last Admin: 04/17/17 13:50 Dose: 0.5 mg Linezolid (Zyvox 600mg/300ml D5w) 600 mg in 300 mls @ 200 mls/hr IVPB Q12 [facility] Last Admin: 04/17/17 09:56 Dose: 200 mls/hr Lactated Ringer's (Lactated Ringer's) 1,000 mls @ 100 mls/hr IV .Q10H [facility] Mesalamine (Delzicol) 800 mg PO DAILY [facility] Last Admin: 04/17/17 09:54 Dose: 800 mg Ondansetron HCl (Zofran Inj) 4 mg IVP ONCE PRN PRN Reason: Nausea/Vomiting Stop: 04/17/17 15:30 Pantoprazole Sodium (Protonix Ec Tab) 40 mg PO DAILY [facility] Last Admin: 04/17/17 09:55 Dose: 40 mg - Labs Labs: 04/17/17 08:11 04/17/17 08:11 PT 11.3 SECONDS (9.7-12.2) 04/17/17 08:11 INR 1.0 04/17/17 08:11 APTT 26 SECONDS (21-34) 04/17/17 08:11
[2017-04-18] MEDS: DiphenhydrAMINE 50 mg/ml Inj IVP PRN ×7 (02:48→21:01)
[2017-04-18] MEDS: HYDROmorphone 1 mg/ml ISec IVP PRN ×7 (02:49→21:00)
[2017-04-18] MEDS: Lactated Ringer's 1,000 ML IV SCH (06:53)
[2017-04-18] MEDS: Pantoprazole 40 mg EC Tab PO SCH (09:01)
[2017-04-18] MEDS: Linezolid 600 mg in D5W 300 ml 600 MG/300 ML BAG IVPB SCH ×2 (09:09→21:01)
--- NOTE | 2017-04-18 09:55 | CP.PCM.PN ---
<Jose Almeida - Last Filed: 04/18/17 12:05> Subjective - Date & Time of Evaluation Date of Evaluation: 04/18/17 Time of Evaluation: 09:52 - Subjective Subjective: General Surgery Progress Note for Dr. Taylor Patient seen and examined at bedside this AM. No acute event overnight. Patient resting in bed comfortably. He is s/p I&D of left gluteal abscess POD #1. Patient complaining of pain in gluteal region. Patient tolerating oral intake. Ostomy producing brown soft stool. No other complaints at this time. Objective - Vital Signs/Intake and Output Vital Signs (last 24 hours): Temp Pulse Resp BP Pulse Ox 97.6 F 79 20 110/69 100 04/18/17 07:30 04/18/17 07:30 04/18/17 07:30 04/18/17 07:30 04/18/17 07:30 Intake and Output: 04/18/17 04/18/17 06:59 18:59 Intake Total 440 Output Total 770 Balance -330 - Medications Medications: Current Medications Apixaban (Eliquis) 5 mg PO BID [facility] Last Admin: 04/18/17 09:01 Dose: 5 mg Cyanocobalamin (Vitamin B12 1000 Mcg Tab) 1,000 mcg PO DAILY [facility] Last Admin: 04/18/17 09:02 Dose: 1,000 mcg Diphenhydramine HCl (Benadryl) 25 mg IVP Q3 PRN PRN Reason: Itching / Pruritus Last Admin: 04/18/17 09:00 Dose: 25 mg Ferrous Sulfate (Feosol) 325 mg PO BID [facility] Last Admin: 04/18/17 09:01 Dose: 325 mg Hydromorphone HCl (Dilaudid) 1 mg IVP Q3H PRN PRN Reason: Pain, moderate (4-7) Last Admin: 04/18/17 09:01 Dose: 1 mg Linezolid (Zyvox 600mg/300ml D5w) 600 mg in 300 mls @ 200 mls/hr IVPB Q12 [facility] Last Admin: 04/18/17 09:09 Dose: 200 mls/hr Lactated Ringer's (Lactated Ringer's) 1,000 mls @ 100 mls/hr IV .Q10H [facility] Last Admin: 04/18/17 06:53 Dose: 100 mls/hr Mesalamine (Delzicol) 800 mg PO DAILY [facility] Last Admin: 04/18/17 09:02 Dose: 800 mg Pantoprazole Sodium (Protonix Ec Tab) 40 mg PO DAILY [facility] Last Admin: 04/18/17 09:01 Dose: 40 mg - Labs Labs: 04/17/17 08:11 04/17/17 08:11 PT 11.3 SECONDS (9.7-12.2) 04/17/17 08:11 INR 1.0 04/17/17 08:11 APTT 26 SECONDS (21-34) 04/17/17 08:11 - Constitutional Appears: No Acute Distress - Head Exam Head Exam: ATRAUMATIC, NORMOCEPHALIC - Eye Exam Eye Exam: Normal appearance - ENT Exam ENT Exam: Mucous Membranes Moist - Neck Exam Neck Exam: Full ROM - Respiratory Exam Respiratory Exam: NORMAL BREATHING PATTERN - Cardiovascular Exam Cardiovascular Exam: REGULAR RHYTHM - GI/Abdominal Exam Additional comments: ostomy patent producing soft brown stool - Back Exam Additional comments: dressing clean dry and intact packing to be removed today - Neurological Exam Neurological Exam: Alert, Awake, Oriented x3 - Psychiatric Exam Psychiatric exam: Normal Affect, Normal Mood - Skin Skin Exam: Dry, Warm Assessment and Plan - Assessment and Plan (Free Text) Plan: 22 M with PMH of Crohn's disease and recurrent abscesses, s/p I&D left gluteal abscess POD #1 -Continue abx as per ID -Medical management as per primary -local wound care -Will SIDRA Almeida PGY1 <Temo Taylor B - Last Filed: 04/19/17 18:32> Objective - Vital Signs/Intake and Output Vital Signs (last 24 hours): Temp Pulse Resp BP Pulse Ox 97.7 F 83 20 102/71 100 04/19/17 15:12 04/19/17 15:12 04/19/17 15:12 04/19/17 15:12 04/19/17 15:12 Intake and Output: 04/19/17 04/19/17 06:59 18:59 Intake Total 540 1100 Balance 540 1100 - Medications Medications: Current Medications Apixaban (Eliquis) 5 mg PO BID [facility] Last Admin: 04/19/17 17:41 Dose: 5 mg Cyanocobalamin (Vitamin B12 1000 Mcg Tab) 1,000 mcg PO DAILY [facility] Last Admin: 04/19/17 09:48 Dose: 1,000 mcg Diphenhydramine HCl (Benadryl) 25 mg IVP Q3 PRN PRN Reason: Itching / Pruritus Last Admin: 04/19/17 16:08 Dose: 25 mg Ferrous Sulfate (Feosol) 325 mg PO BID [facility] Last Admin: 04/19/17 17:41 Dose: 325 mg Hydromorphone HCl (Dilaudid) 1 mg IVP Q3H PRN PRN Reason: Pain, moderate (4-7) Last Admin: 04/19/17 16:08 Dose: 1 mg Linezolid (Zyvox 600mg/300ml D5w) 600 mg in 300 mls @ 200 mls/hr IVPB Q12 [facility] Last Admin: 04/19/17 09:48 Dose: 200 mls/hr Lactated Ringer's (Lactated Ringer's) 1,000 mls @ 100 mls/hr IV .Q10H [facility] Last Admin: 04/19/17 15:09 Dose: Not Given Mesalamine (Delzicol) 800 mg PO DAILY [facility] Last Admin: 04/19/17 09:47 Dose: 800 mg Pantoprazole Sodium (Protonix Ec Tab) 40 mg PO DAILY [facility] Last Admin: 04/19/17 09:45 Dose: 40 mg - Labs Labs: 04/17/17 08:11 04/17/17 08:11 PT 11.3 SECONDS (9.7-12.2) 04/17/17 08:11 INR 1.0 04/17/17 08:11 APTT 26 SECONDS (21-34) 04/17/17 08:11 Attending/Attestation - Attestation I have personally seen and examined this patient.: Yes I have fully participated in the care of the patient.: Yes I have reviewed all pertinent clinical information, including history, physical exam and plan: Yes Notes (Text): 04/19/17 18:31 Pt was seen and examined at bedside Agree with above note and assessment
--- NOTE | 2017-04-18 09:55 | CP.PCM.PN ---
Subjective - Date & Time of Evaluation Date of Evaluation: 04/18/17 Time of Evaluation: 10:40 - Subjective Subjective: clinically same Objective - Vital Signs/Intake and Output Vital Signs (last 24 hours): Temp Pulse Resp BP Pulse Ox 97.6 F 79 20 110/69 100 04/18/17 07:30 04/18/17 07:30 04/18/17 07:30 04/18/17 07:30 04/18/17 07:30 Intake and Output: 04/18/17 04/18/17 06:59 18:59 Intake Total 440 Output Total 770 Balance -330 - Medications Medications: Current Medications Apixaban (Eliquis) 5 mg PO BID [facility] Last Admin: 04/18/17 09:01 Dose: 5 mg Cyanocobalamin (Vitamin B12 1000 Mcg Tab) 1,000 mcg PO DAILY [facility] Last Admin: 04/18/17 09:02 Dose: 1,000 mcg Diphenhydramine HCl (Benadryl) 25 mg IVP Q3 PRN PRN Reason: Itching / Pruritus Last Admin: 04/18/17 09:00 Dose: 25 mg Ferrous Sulfate (Feosol) 325 mg PO BID [facility] Last Admin: 04/18/17 09:01 Dose: 325 mg Hydromorphone HCl (Dilaudid) 1 mg IVP Q3H PRN PRN Reason: Pain, moderate (4-7) Last Admin: 04/18/17 09:01 Dose: 1 mg Linezolid (Zyvox 600mg/300ml D5w) 600 mg in 300 mls @ 200 mls/hr IVPB Q12 [facility] Last Admin: 04/18/17 09:09 Dose: 200 mls/hr Lactated Ringer's (Lactated Ringer's) 1,000 mls @ 100 mls/hr IV .Q10H [facility] Last Admin: 04/18/17 06:53 Dose: 100 mls/hr Mesalamine (Delzicol) 800 mg PO DAILY [facility] Last Admin: 04/18/17 09:02 Dose: 800 mg Pantoprazole Sodium (Protonix Ec Tab) 40 mg PO DAILY [facility] Last Admin: 04/18/17 09:01 Dose: 40 mg - Labs Labs: 04/17/17 08:11 04/17/17 08:11 PT 11.3 SECONDS (9.7-12.2) 04/17/17 08:11 INR 1.0 04/17/17 08:11 APTT 26 SECONDS (21-34) 04/17/17 08:11 - Constitutional Appears: Well - Head Exam Head Exam: ATRAUMATIC, NORMAL INSPECTION, NORMOCEPHALIC - Eye Exam Eye Exam: EOMI, Normal appearance, PERRL Pupil Exam: NORMAL ACCOMODATION, PERRL - ENT Exam ENT Exam: Mucous Membranes Moist, Normal Exam - Neck Exam Neck Exam: Full ROM, Normal Inspection. absent: Lymphadenopathy - Respiratory Exam Respiratory Exam: Decreased Breath Sounds - Cardiovascular Exam Cardiovascular Exam: REGULAR RHYTHM, +S1, +S2 - GI/Abdominal Exam GI & Abdominal Exam: Soft, Diminished Bowel Sounds - Rectal Exam Rectal Exam: Deferred Assessment and Plan (1) Abscess Status: Acute (2) Crohn disease Status: Acute (3) Pulmonary embolism Status: Acute (4) Abdominal pain Status: Acute (5) Constipation Status: Acute (6) DVT (deep venous thrombosis) Status: Acute (7) Diarrhea Status: Acute (8) Diarrhea Status: Acute (9) Encounter for wound care Status: Acute (10) Fever Status: Acute (11) Foreign body Status: Acute (12) Intractable abdominal pain Status: Acute (13) Intractable pain Status: Acute (14) Prophylactic measure Status: Acute (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
[2017-04-19] MEDS: DiphenhydrAMINE 50 mg/ml Inj IVP PRN ×8 (00:38→22:20)
[2017-04-19] MEDS: HYDROmorphone 1 mg/ml ISec IVP PRN ×8 (00:38→22:21)
[2017-04-19] MEDS: Pantoprazole 40 mg EC Tab PO SCH (09:45)
[2017-04-19] MEDS: Linezolid 600 mg in D5W 300 ml 600 MG/300 ML BAG IVPB SCH ×2 (09:48→22:21)
--- NOTE | 2017-04-19 10:41 | CP.PCM.PN ---
Subjective - Date & Time of Evaluation Date of Evaluation: 04/19/17 Time of Evaluation: 08:10 - Subjective Subjective: SURGERY NOTE FOR DR. WEBB Patient was S&O at bedside. Resting comfortably in NAD. No issues noted overnight. This morning, patient admits to mild pain overlying the perirectal abscess, improved from yesterday. Jai stook was noted in the colostomy bag,. Stool was noted to be light brown/greenish in color and semi-solid in texture with some undigested food visualized. No blood or mucus noted. Patient currently denies any CP, SOB, abdominal pain, n/v, fever or chills. No other complaints are noted at this time. Objective - Vital Signs/Intake and Output Vital Signs (last 24 hours): Temp Pulse Resp BP Pulse Ox 98.3 F 96 H 20 105/77 99 04/19/17 07:10 04/19/17 07:10 04/19/17 07:10 04/19/17 07:10 04/19/17 07:10 Intake and Output: 04/19/17 04/19/17 06:59 18:59 Intake Total 540 Balance 540 - Medications Medications: Current Medications Apixaban (Eliquis) 5 mg PO BID [facility] Last Admin: 04/19/17 09:47 Dose: 5 mg Cyanocobalamin (Vitamin B12 1000 Mcg Tab) 1,000 mcg PO DAILY [facility] Last Admin: 04/19/17 09:48 Dose: 1,000 mcg Diphenhydramine HCl (Benadryl) 25 mg IVP Q3 PRN PRN Reason: Itching / Pruritus Last Admin: 04/19/17 09:45 Dose: 25 mg Ferrous Sulfate (Feosol) 325 mg PO BID [facility] Last Admin: 04/19/17 09:45 Dose: 325 mg Hydromorphone HCl (Dilaudid) 1 mg IVP Q3H PRN PRN Reason: Pain, moderate (4-7) Last Admin: 04/19/17 09:45 Dose: 1 mg Linezolid (Zyvox 600mg/300ml D5w) 600 mg in 300 mls @ 200 mls/hr IVPB Q12 [facility] Last Admin: 04/19/17 09:48 Dose: 200 mls/hr Lactated Ringer's (Lactated Ringer's) 1,000 mls @ 100 mls/hr IV .Q10H [facility] Last Admin: 04/18/17 06:53 Dose: 100 mls/hr Mesalamine (Delzicol) 800 mg PO DAILY [facility] Last Admin: 04/19/17 09:47 Dose: 800 mg Pantoprazole Sodium (Protonix Ec Tab) 40 mg PO DAILY [facility] Last Admin: 04/19/17 09:45 Dose: 40 mg - Labs Labs: 04/17/17 08:11 04/17/17 08:11 PT 11.3 SECONDS (9.7-12.2) 04/17/17 08:11 INR 1.0 04/17/17 08:11 APTT 26 SECONDS (21-34) 04/17/17 08:11 - Constitutional Appears: Non-toxic, No Acute Distress - Respiratory Exam Respiratory Exam: Clear to Ausculation Bilateral, NORMAL BREATHING PATTERN - Cardiovascular Exam Cardiovascular Exam: REGULAR RHYTHM, +S1, +S2 - GI/Abdominal Exam GI & Abdominal Exam: Soft. absent: Distended, Firm, Guarding, Rigid, Tenderness , Rebound Additional comments: Ostomy is patent with solid stool output - Rectal Exam Additional comments: perirectal wounds dressed with [id number] - Neurological Exam Neurological Exam: Alert, Awake Assessment and Plan - Assessment and Plan (Free Text) Assessment: 22 yo M with a PMHX of crohn's/perirectal disease who is POD#2 from I&D for perirectal abcess Plan: - daily dressing changes - no further surgical intervention Further recs discuss with Dr. Claudia Padilla, PGY2
[2017-04-19] MEDS: Lactated Ringer's 1,000 ML IV SCH ×2 (12:59→15:09)
--- NOTE | 2017-04-19 16:13 | CP.PCM.PN ---
Subjective - Date & Time of Evaluation Date of Evaluation: 04/19/17 Time of Evaluation: 12:00 - Subjective Subjective: clinically same Objective - Vital Signs/Intake and Output Vital Signs (last 24 hours): Temp Pulse Resp BP Pulse Ox 98.3 F 96 H 20 105/77 99 04/19/17 07:10 04/19/17 07:10 04/19/17 07:10 04/19/17 07:10 04/19/17 07:10 Intake and Output: 04/19/17 04/19/17 06:59 18:59 Intake Total 540 1100 Balance 540 1100 - Medications Medications: Current Medications Apixaban (Eliquis) 5 mg PO BID [facility] Last Admin: 04/19/17 09:47 Dose: 5 mg Cyanocobalamin (Vitamin B12 1000 Mcg Tab) 1,000 mcg PO DAILY [facility] Last Admin: 04/19/17 09:48 Dose: 1,000 mcg Diphenhydramine HCl (Benadryl) 25 mg IVP Q3 PRN PRN Reason: Itching / Pruritus Last Admin: 04/19/17 16:08 Dose: 25 mg Ferrous Sulfate (Feosol) 325 mg PO BID [facility] Last Admin: 04/19/17 09:45 Dose: 325 mg Hydromorphone HCl (Dilaudid) 1 mg IVP Q3H PRN PRN Reason: Pain, moderate (4-7) Last Admin: 04/19/17 16:08 Dose: 1 mg Linezolid (Zyvox 600mg/300ml D5w) 600 mg in 300 mls @ 200 mls/hr IVPB Q12 [facility] Last Admin: 04/19/17 09:48 Dose: 200 mls/hr Lactated Ringer's (Lactated Ringer's) 1,000 mls @ 100 mls/hr IV .Q10H [facility] Last Admin: 04/19/17 15:09 Dose: Not Given Mesalamine (Delzicol) 800 mg PO DAILY [facility] Last Admin: 04/19/17 09:47 Dose: 800 mg Pantoprazole Sodium (Protonix Ec Tab) 40 mg PO DAILY [facility] Last Admin: 04/19/17 09:45 Dose: 40 mg - Labs Labs: 04/17/17 08:11 04/17/17 08:11 PT 11.3 SECONDS (9.7-12.2) 04/17/17 08:11 INR 1.0 04/17/17 08:11 APTT 26 SECONDS (21-34) 04/17/17 08:11 - Constitutional Appears: Well - Head Exam Head Exam: ATRAUMATIC, NORMAL INSPECTION, NORMOCEPHALIC - Eye Exam Eye Exam: EOMI, Normal appearance, PERRL - ENT Exam ENT Exam: Mucous Membranes Moist, Normal Exam - Neck Exam Neck Exam: Full ROM, Normal Inspection. absent: Lymphadenopathy - Respiratory Exam Respiratory Exam: Decreased Breath Sounds - Cardiovascular Exam Cardiovascular Exam: REGULAR RHYTHM, +S1, +S2. absent: Murmur - GI/Abdominal Exam GI & Abdominal Exam: Diminished Bowel Sounds - Rectal Exam Rectal Exam: Deferred Assessment and Plan (1) Abscess Status: Acute (2) Crohn disease Status: Acute (3) Pulmonary embolism Status: Acute (4) Abdominal pain Status: Acute (5) Constipation Status: Acute (6) DVT (deep venous thrombosis) Status: Acute (7) Diarrhea Status: Acute (8) Diarrhea Status: Acute (9) Encounter for wound care Status: Acute (10) Fever Status: Acute (11) Foreign body Status: Acute (12) Intractable abdominal pain Status: Acute (13) Intractable pain Status: Acute (14) Prophylactic measure Status: Acute (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
--- NOTE | 2017-04-20 00:33 | OP ---
PROCEDURE DATE: 04/17/2017 PREOPERATIVE DIAGNOSES: 1. Perineal wound. 2. Left gluteal abscess. POSTOPERATIVE DIAGNOSES: 1. Perineal wound. 2. Left gluteal collection. 3. Crohn's disease. PROCEDURES DONE: 1. Incision and drainage of left gluteal collection. 2. Excisional debridement of the perineal wound. SURGEON: Temo Taylor MD. [employer] WORKER: Kike Nava, PGY-I resident. TYPE OF ANESTHESIA: General endotracheal tube anesthesia. ESTIMATED BLOOD LOSS: Around 10 mL. DRAINS: None. PATHOLOGY: The culture was sent from the left gluteal collection. COMPLICATIONS: None. INTRAOPERATIVE FINDINGS: The patient had left gluteal collection of approximately 3 x 3 cm size and the patient also had slowly healing perineal wound with red granulation tissue and some part had hypergranulation tissue. DESCRIPTION OF PROCEDURE: This 22-year-old male was diagnosed with a left gluteal abscess with a nonhealing perineal wound and the patient was consented for the incision and drainage of the gluteal abscess and debridement The patient was brought to the OR, placed in the right lateral position. The perineal area was prepped and draped in the usual sterile fashion. The transverse incision was made on the left gluteal abscess area starting from the nonhealing perineal wound and after incising skin and subcutaneous tissue, the cavity was entered. The patient had clear color fluid and that was drained and the culture was sent. The cavity was irrigated and the debridement of the perineal wound was done. After proper debridement of the perineal wound, the dry sterile dressing was applied. The patient tolerated the procedure well. Count of the instrument was correct. There was no apparent complication. Temo Taylor MD
[2017-04-20] MEDS: DiphenhydrAMINE 50 mg/ml Inj IVP PRN ×8 (01:25→23:06)
[2017-04-20] MEDS: HYDROmorphone 1 mg/ml ISec IVP PRN ×8 (01:26→23:06)
[2017-04-20] MEDS: Linezolid 600 mg in D5W 300 ml 600 MG/300 ML BAG IVPB SCH ×2 (09:33→21:13)
[2017-04-20] MEDS: Lactated Ringer's 1,000 ML IV SCH ×2 (09:33→21:15)
[2017-04-20] MEDS: Pantoprazole 40 mg EC Tab PO SCH (09:34)
--- NOTE | 2017-04-20 16:33 | CP.PCM.PN ---
Subjective - Date & Time of Evaluation Date of Evaluation: 04/20/17 Time of Evaluation: 16:32 - Subjective Subjective: PT SEEN AND EXAMINED TODAY, DENIES ANY PAIN, RESP EASY AND UNLABORED. NAD Objective - Vital Signs/Intake and Output Vital Signs (last 24 hours): Temp Pulse Resp BP Pulse Ox 98.1 F 95 H 18 104/71 100 04/20/17 07:30 04/20/17 07:30 04/20/17 07:30 04/20/17 07:30 04/20/17 07:30 Intake and Output: 04/20/17 04/20/17 06:59 18:59 Intake Total 1300 Output Total 1200 Balance 100 - Medications Medications: Current Medications Apixaban (Eliquis) 5 mg PO BID [facility] Last Admin: 04/20/17 09:34 Dose: 5 mg Cyanocobalamin (Vitamin B12 1000 Mcg Tab) 1,000 mcg PO DAILY [facility] Last Admin: 04/20/17 09:34 Dose: 1,000 mcg Diphenhydramine HCl (Benadryl) 25 mg IVP Q3 PRN PRN Reason: Itching / Pruritus Last Admin: 04/20/17 14:05 Dose: 25 mg Ferrous Sulfate (Feosol) 325 mg PO BID [facility] Last Admin: 04/20/17 09:34 Dose: 325 mg Hydromorphone HCl (Dilaudid) 1 mg IVP Q3H PRN PRN Reason: Pain, moderate (4-7) Last Admin: 04/20/17 14:05 Dose: 1 mg Linezolid (Zyvox 600mg/300ml D5w) 600 mg in 300 mls @ 200 mls/hr IVPB Q12 [facility] Last Admin: 04/20/17 09:33 Dose: 200 mls/hr Mesalamine (Delzicol) 800 mg PO DAILY [facility] Last Admin: 04/20/17 09:33 Dose: 800 mg Pantoprazole Sodium (Protonix Ec Tab) 40 mg PO DAILY [facility] Last Admin: 04/20/17 09:34 Dose: 40 mg - Labs Labs: 04/17/17 08:11 04/17/17 08:11 PT 11.3 SECONDS (9.7-12.2) 04/17/17 08:11 INR 1.0 04/17/17 08:11 APTT 26 SECONDS (21-34) 04/17/17 08:11 Assessment and Plan - Assessment and Plan (Free Text) Plan: 22 Y/O MALE WITH PMHX CROHN'S DISEASE, FREQUENT ABSCESSES, PE ADMITTED FOR PERINEAL ABSCESS INCISION AND DRAINAGE OF LEFT GLUTEAL COLLECTION, EXCISIONAL DEBRIDEMENT OF THE PERINEAL WOUND DONE PT CLEARED FOR D/C BY DR WALKER, DR BERGERON (COVERING FOR DR SMITH), DR WEBB WOUND CARE RX GIVEN TO CM FOR HOME CARE PT EDUCATED ON MAINTAIN GOOD HYGIENE, FREQUENT SITZ BATH AND SHOWERS CONTINUE HOME MEDS F/U W/DR WALKER, DR SMITH, DR WEBB
--- NOTE | 2017-04-20 18:55 | CP.PCM.PN ---
Subjective - Date & Time of Evaluation Date of Evaluation: 04/20/17 Time of Evaluation: 11:00 - Subjective Subjective: clinically same Objective - Vital Signs/Intake and Output Vital Signs (last 24 hours): Temp Pulse Resp BP Pulse Ox 98.1 F 95 H 18 104/71 100 04/20/17 07:30 04/20/17 07:30 04/20/17 07:30 04/20/17 07:30 04/20/17 07:30 Intake and Output: 04/20/17 04/20/17 06:59 18:59 Intake Total 1300 Output Total 1200 Balance 100 - Medications Medications: Current Medications Apixaban (Eliquis) 5 mg PO BID [facility] Last Admin: 04/20/17 17:20 Dose: 5 mg Cyanocobalamin (Vitamin B12 1000 Mcg Tab) 1,000 mcg PO DAILY [facility] Last Admin: 04/20/17 09:34 Dose: 1,000 mcg Diphenhydramine HCl (Benadryl) 25 mg IVP Q3 PRN PRN Reason: Itching / Pruritus Last Admin: 04/20/17 17:06 Dose: 25 mg Ferrous Sulfate (Feosol) 325 mg PO BID [facility] Last Admin: 04/20/17 17:20 Dose: 325 mg Hydromorphone HCl (Dilaudid) 1 mg IVP Q3H PRN PRN Reason: Pain, moderate (4-7) Last Admin: 04/20/17 17:06 Dose: 1 mg Linezolid (Zyvox 600mg/300ml D5w) 600 mg in 300 mls @ 200 mls/hr IVPB Q12 [facility] Last Admin: 04/20/17 09:33 Dose: 200 mls/hr Mesalamine (Delzicol) 800 mg PO DAILY [facility] Last Admin: 04/20/17 09:33 Dose: 800 mg Pantoprazole Sodium (Protonix Ec Tab) 40 mg PO DAILY [facility] Last Admin: 04/20/17 09:34 Dose: 40 mg - Labs Labs: 04/17/17 08:11 04/17/17 08:11 PT 11.3 SECONDS (9.7-12.2) 04/17/17 08:11 INR 1.0 04/17/17 08:11 APTT 26 SECONDS (21-34) 04/17/17 08:11 - Constitutional Appears: Well - Head Exam Head Exam: ATRAUMATIC, NORMAL INSPECTION, NORMOCEPHALIC - Eye Exam Eye Exam: EOMI, Normal appearance, PERRL Pupil Exam: NORMAL ACCOMODATION, PERRL - ENT Exam ENT Exam: Mucous Membranes Moist, Normal Exam - Neck Exam Neck Exam: Full ROM, Normal Inspection. absent: Lymphadenopathy - Respiratory Exam Respiratory Exam: Decreased Breath Sounds - Cardiovascular Exam Cardiovascular Exam: REGULAR RHYTHM, +S1, +S2 - GI/Abdominal Exam GI & Abdominal Exam: Soft, Diminished Bowel Sounds - Rectal Exam Rectal Exam: Deferred Assessment and Plan (1) Abscess Status: Acute (2) Crohn disease Status: Acute (3) Pulmonary embolism Status: Acute (4) Abdominal pain Status: Acute (5) Constipation Status: Acute (6) DVT (deep venous thrombosis) Status: Acute (7) Diarrhea Status: Acute (8) Diarrhea Status: Acute (9) Encounter for wound care Status: Acute (10) Fever Status: Acute (11) Foreign body Status: Acute (12) Intractable abdominal pain Status: Acute (13) Intractable pain Status: Acute (14) Prophylactic measure Status: Acute (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
[2017-04-21] MEDS: DiphenhydrAMINE 50 mg/ml Inj IVP PRN ×7 (02:44→21:01)
[2017-04-21] MEDS: HYDROmorphone 1 mg/ml ISec IVP PRN ×7 (02:44→21:01)
[2017-04-21] MEDS: Linezolid 600 mg in D5W 300 ml 600 MG/300 ML BAG IVPB SCH ×2 (09:24→21:05)
[2017-04-21] MEDS: Pantoprazole 40 mg EC Tab PO SCH (09:25)
--- NOTE | 2017-04-21 16:03 | CP.PCM.PN ---
Subjective - Date & Time of Evaluation Date of Evaluation: 04/21/17 Time of Evaluation: 11:20 - Subjective Subjective: clinically same Objective - Vital Signs/Intake and Output Vital Signs (last 24 hours): Temp Pulse Resp BP Pulse Ox 97.9 F 87 20 113/72 99 04/21/17 08:22 04/21/17 08:22 04/21/17 08:22 04/21/17 08:22 04/21/17 08:22 Intake and Output: 04/21/17 04/21/17 06:59 18:59 Intake Total 2340 Output Total 1750 Balance 590 - Medications Medications: Current Medications Apixaban (Eliquis) 5 mg PO BID [facility] Last Admin: 04/21/17 09:25 Dose: 5 mg Cyanocobalamin (Vitamin B12 1000 Mcg Tab) 1,000 mcg PO DAILY [facility] Last Admin: 04/21/17 09:25 Dose: 1,000 mcg Diphenhydramine HCl (Benadryl) 25 mg IVP Q3 PRN PRN Reason: Itching / Pruritus Last Admin: 04/21/17 14:47 Dose: 25 mg Ferrous Sulfate (Feosol) 325 mg PO BID [facility] Last Admin: 04/21/17 09:25 Dose: 325 mg Hydromorphone HCl (Dilaudid) 1 mg IVP Q3H PRN PRN Reason: Pain, moderate (4-7) Last Admin: 04/21/17 14:47 Dose: 1 mg Linezolid (Zyvox 600mg/300ml D5w) 600 mg in 300 mls @ 200 mls/hr IVPB Q12 [facility] Last Admin: 04/21/17 09:24 Dose: 200 mls/hr Mesalamine (Delzicol) 800 mg PO DAILY [facility] Last Admin: 04/21/17 09:25 Dose: 800 mg Pantoprazole Sodium (Protonix Ec Tab) 40 mg PO DAILY [facility] Last Admin: 04/21/17 09:25 Dose: 40 mg - Labs Labs: 04/17/17 08:11 04/17/17 08:11 PT 11.3 SECONDS (9.7-12.2) 04/17/17 08:11 INR 1.0 04/17/17 08:11 APTT 26 SECONDS (21-34) 04/17/17 08:11 - Constitutional Appears: Well - Head Exam Head Exam: ATRAUMATIC, NORMAL INSPECTION, NORMOCEPHALIC - Eye Exam Eye Exam: EOMI, Normal appearance, PERRL Pupil Exam: NORMAL ACCOMODATION, PERRL - ENT Exam ENT Exam: Mucous Membranes Moist, Normal Exam - Neck Exam Neck Exam: Full ROM, Normal Inspection. absent: Lymphadenopathy - Respiratory Exam Respiratory Exam: Decreased Breath Sounds - Cardiovascular Exam Cardiovascular Exam: REGULAR RHYTHM, +S1, +S2 - GI/Abdominal Exam GI & Abdominal Exam: Soft, Diminished Bowel Sounds - Rectal Exam Rectal Exam: Deferred Assessment and Plan (1) Abscess Status: Acute (2) Crohn disease Status: Acute (3) Pulmonary embolism Status: Acute (4) Abdominal pain Status: Acute (5) Constipation Status: Acute (6) DVT (deep venous thrombosis) Status: Acute (7) Diarrhea Status: Acute (8) Diarrhea Status: Acute (9) Encounter for wound care Status: Acute (10) Fever Status: Acute (11) Foreign body Status: Acute (12) Intractable abdominal pain Status: Acute (13) Intractable pain Status: Acute (14) Prophylactic measure Status: Acute (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
[2017-04-22] MEDS: DiphenhydrAMINE 50 mg/ml Inj IVP PRN ×8 (00:12→22:55)
[2017-04-22] MEDS: HYDROmorphone 1 mg/ml ISec IVP PRN ×2 (00:13→03:28)
[2017-04-22] MEDS: Pantoprazole 40 mg EC Tab PO SCH (09:47)
[2017-04-22] MEDS: Linezolid 600 mg in D5W 300 ml 600 MG/300 ML BAG IVPB SCH ×2 (09:48→22:06)
--- NOTE | 2017-04-22 17:59 | CP.PCM.PN ---
Subjective - Date & Time of Evaluation Date of Evaluation: 04/22/17 Time of Evaluation: 05:30 - Subjective Subjective: dictated Objective - Vital Signs/Intake and Output Vital Signs (last 24 hours): Temp Pulse Resp BP Pulse Ox 98.1 F 99 H 18 114/77 100 04/22/17 16:00 04/22/17 16:00 04/22/17 16:00 04/22/17 16:00 04/22/17 16:00 Intake and Output: 04/22/17 04/22/17 06:59 18:59 Intake Total 780 300 Output Total 1350 Balance -570 300 - Medications Medications: Current Medications Apixaban (Eliquis) 5 mg PO BID [facility] Last Admin: 04/22/17 17:11 Dose: 5 mg Cyanocobalamin (Vitamin B12 1000 Mcg Tab) 1,000 mcg PO DAILY [facility] Last Admin: 04/22/17 10:04 Dose: 1,000 mcg Diphenhydramine HCl (Benadryl) 25 mg IVP Q3 PRN PRN Reason: Itching / Pruritus Last Admin: 04/22/17 16:44 Dose: 25 mg Ferrous Sulfate (Feosol) 325 mg PO BID [facility] Last Admin: 04/22/17 17:11 Dose: 325 mg Hydromorphone HCl (Dilaudid) 1 mg IVP Q3H PRN PRN Reason: Pain, moderate (4-7) Last Admin: 04/22/17 16:41 Dose: 1 mg Linezolid (Zyvox 600mg/300ml D5w) 600 mg in 300 mls @ 200 mls/hr IVPB Q12 [facility] Last Admin: 04/22/17 09:48 Dose: 200 mls/hr Mesalamine (Delzicol) 800 mg PO DAILY [facility] Last Admin: 04/22/17 09:47 Dose: 800 mg Pantoprazole Sodium (Protonix Ec Tab) 40 mg PO DAILY [facility] Last Admin: 04/22/17 09:47 Dose: 40 mg - Labs Labs: 04/17/17 08:11 04/17/17 08:11 PT 11.3 SECONDS (9.7-12.2) 04/17/17 08:11 INR 1.0 04/17/17 08:11 APTT 26 SECONDS (21-34) 04/17/17 08:11
--- NOTE | 2017-04-22 18:16 | CP.PCM.PN ---
Subjective - Date & Time of Evaluation Date of Evaluation: 04/22/17 Time of Evaluation: 10:40 - Subjective Subjective: clinically same Objective - Vital Signs/Intake and Output Vital Signs (last 24 hours): Temp Pulse Resp BP Pulse Ox 98.1 F 99 H 18 114/77 100 04/22/17 16:00 04/22/17 16:00 04/22/17 16:00 04/22/17 16:00 04/22/17 16:00 Intake and Output: 04/22/17 04/22/17 06:59 18:59 Intake Total 780 300 Output Total 1350 Balance -570 300 - Medications Medications: Current Medications Apixaban (Eliquis) 5 mg PO BID [facility] Last Admin: 04/22/17 17:11 Dose: 5 mg Cyanocobalamin (Vitamin B12 1000 Mcg Tab) 1,000 mcg PO DAILY [facility] Last Admin: 04/22/17 10:04 Dose: 1,000 mcg Diphenhydramine HCl (Benadryl) 25 mg IVP Q3 PRN PRN Reason: Itching / Pruritus Last Admin: 04/22/17 16:44 Dose: 25 mg Ferrous Sulfate (Feosol) 325 mg PO BID [facility] Last Admin: 04/22/17 17:11 Dose: 325 mg Hydromorphone HCl (Dilaudid) 1 mg IVP Q3H PRN PRN Reason: Pain, moderate (4-7) Last Admin: 04/22/17 16:41 Dose: 1 mg Linezolid (Zyvox 600mg/300ml D5w) 600 mg in 300 mls @ 200 mls/hr IVPB Q12 [facility] Last Admin: 04/22/17 09:48 Dose: 200 mls/hr Ciprofloxacin (Cipro 400mg/200ml Dsw) 400 mg in 200 mls @ 133 mls/hr IVPB Q12H [facility] Mesalamine (Delzicol) 800 mg PO DAILY [facility] Last Admin: 04/22/17 09:47 Dose: 800 mg Pantoprazole Sodium (Protonix Ec Tab) 40 mg PO DAILY [facility] Last Admin: 04/22/17 09:47 Dose: 40 mg - Labs Labs: 04/17/17 08:11 04/17/17 08:11 PT 11.3 SECONDS (9.7-12.2) 04/17/17 08:11 INR 1.0 04/17/17 08:11 APTT 26 SECONDS (21-34) 04/17/17 08:11 - Constitutional Appears: Well - Head Exam Head Exam: ATRAUMATIC, NORMAL INSPECTION, NORMOCEPHALIC - Eye Exam Eye Exam: EOMI, Normal appearance, PERRL Pupil Exam: NORMAL ACCOMODATION, PERRL - ENT Exam ENT Exam: Mucous Membranes Moist, Normal Exam - Neck Exam Neck Exam: Full ROM, Normal Inspection. absent: Lymphadenopathy - Respiratory Exam Respiratory Exam: Decreased Breath Sounds - Cardiovascular Exam Cardiovascular Exam: REGULAR RHYTHM, +S1, +S2 - GI/Abdominal Exam GI & Abdominal Exam: Soft, Diminished Bowel Sounds - Rectal Exam Rectal Exam: Deferred Assessment and Plan (1) Abscess Status: Acute (2) Crohn disease Status: Acute (3) Pulmonary embolism Status: Acute (4) Abdominal pain Status: Acute (5) Constipation Status: Acute (6) DVT (deep venous thrombosis) Status: Acute (7) Diarrhea Status: Acute (8) Diarrhea Status: Acute (9) Encounter for wound care Status: Acute (10) Fever Status: Acute (11) Foreign body Status: Acute (12) Intractable abdominal pain Status: Acute (13) Intractable pain Status: Acute (14) Prophylactic measure Status: Acute (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
[2017-04-22] MEDS: Ciprofloxacin 400mg/200ml D5W 400 MG/200 ML BAG IVPB SCH (18:41)
--- NOTE | 2017-04-22 23:13 | PN ---
DATE: SUBJECTIVE: The patient says that he has big abscess on the anterior side, which was bleeding today and he is waiting to be seen by the surgeon again and also he bled a lot he says last night. I told him that if he needs an I&D, he needs to be off Eliquis for at least 24 hours, otherwise, he is going to bleed a lot. Dr. Taylor needs to come around and I also saw that his culture came back positive for Klebsiella at this time, so we will add Maxipime and continue the Zyvox. PHYSICAL EXAMINATION: GENERAL: He is alert and oriented x3. VITAL SIGNS: T-max is 98.1, pulse 99, blood pressure is 114/77, respiration is 18. HEENT: Head is atraumatic. Pupils are reactive to light. Mild pallor present. NECK: Supple. LUNGS: Clear. HEART: S1 and S2 is regular. Right arm PICC line is unremarkable. ABDOMEN: Soft. There is a colostomy present. EXTREMITIES: No edema, clubbing, or cyanosis. LABORATORY DATA: He has perineal dressing. White count was not repeat after 04/17/2017, white count was 9.6, creatinine 0.7. ASSESSMENT AND PLAN: At this time, I am going to add Maxipime 2 g q.12h. and continue the Zyvox and we will follow and hopefully he will be seen by the surgeon to evaluate these abscesses. He has Crohn's disease and multiple abscesses formation with perirectal pain. Santosh Daniel MD
[2017-04-23] MEDS: DiphenhydrAMINE 50 mg/ml Inj IVP PRN ×8 (01:59→23:11)
[2017-04-23] MEDS: Ciprofloxacin 400mg/200ml D5W 400 MG/200 ML BAG IVPB SCH ×2 (06:10→19:06)
[2017-04-23] MEDS: Linezolid 600 mg in D5W 300 ml 600 MG/300 ML BAG IVPB SCH ×2 (10:08→21:35)
[2017-04-23] MEDS: Pantoprazole 40 mg EC Tab PO SCH (10:08)
--- NOTE | 2017-04-23 17:19 | CP.PCM.PN ---
Subjective - Date & Time of Evaluation Date of Evaluation: 04/23/17 Time of Evaluation: 10:00 - Subjective Subjective: clinically same Objective - Vital Signs/Intake and Output Vital Signs (last 24 hours): Temp Pulse Resp BP Pulse Ox 97.8 F 93 H 20 101/71 99 04/23/17 17:08 04/23/17 17:08 04/23/17 17:08 04/23/17 17:08 04/23/17 17:08 Intake and Output: 04/23/17 04/23/17 06:59 18:59 Intake Total 440 Output Total 850 Balance -410 - Medications Medications: Current Medications Apixaban (Eliquis) 5 mg PO BID [facility] Last Admin: 04/23/17 10:08 Dose: 5 mg Cyanocobalamin (Vitamin B12 1000 Mcg Tab) 1,000 mcg PO DAILY [facility] Last Admin: 04/23/17 10:08 Dose: 1,000 mcg Diphenhydramine HCl (Benadryl) 25 mg IVP Q3 PRN PRN Reason: Itching / Pruritus Last Admin: 04/23/17 14:06 Dose: 25 mg Ferrous Sulfate (Feosol) 325 mg PO BID [facility] Last Admin: 04/23/17 10:08 Dose: 325 mg Hydromorphone HCl (Dilaudid) 1 mg IVP Q3H PRN PRN Reason: Pain, moderate (4-7) Last Admin: 04/23/17 14:06 Dose: 1 mg Linezolid (Zyvox 600mg/300ml D5w) 600 mg in 300 mls @ 200 mls/hr IVPB Q12 [facility] Last Admin: 04/23/17 10:08 Dose: 200 mls/hr Ciprofloxacin (Cipro 400mg/200ml Dsw) 400 mg in 200 mls @ 133 mls/hr IVPB Q12H [facility] Last Admin: 04/23/17 06:10 Dose: 133 mls/hr Mesalamine (Delzicol) 800 mg PO DAILY [facility] Last Admin: 04/23/17 10:08 Dose: 800 mg Pantoprazole Sodium (Protonix Ec Tab) 40 mg PO DAILY [facility] Last Admin: 04/23/17 10:08 Dose: 40 mg - Labs Labs: 04/17/17 08:11 04/17/17 08:11 PT 11.3 SECONDS (9.7-12.2) 04/17/17 08:11 INR 1.0 04/17/17 08:11 APTT 26 SECONDS (21-34) 04/17/17 08:11 Assessment and Plan (1) Abscess Status: Acute (2) Crohn disease Status: Acute (3) Pulmonary embolism Status: Acute (4) Abdominal pain Status: Acute (5) Constipation Status: Acute (6) DVT (deep venous thrombosis) Status: Acute (7) Diarrhea Status: Acute (8) Diarrhea Status: Acute (9) Encounter for wound care Status: Acute (10) Fever Status: Acute (11) Foreign body Status: Acute (12) Intractable abdominal pain Status: Acute (13) Intractable pain Status: Acute (14) Prophylactic measure Status: Acute (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
[2017-04-24] MEDS: DiphenhydrAMINE 50 mg/ml Inj IVP PRN ×8 (02:11→23:23)
[2017-04-24] MEDS: Ciprofloxacin 400mg/200ml D5W 400 MG/200 ML BAG IVPB SCH ×2 (06:01→19:30)
[2017-04-24] MEDS: Linezolid 600 mg in D5W 300 ml 600 MG/300 ML BAG IVPB SCH ×2 (09:19→22:24)
[2017-04-24] MEDS: Pantoprazole 40 mg EC Tab PO SCH (09:20)
--- NOTE | 2017-04-24 11:44 | CP.PCM.PN ---
Subjective - Date & Time of Evaluation Date of Evaluation: 04/24/17 Time of Evaluation: 09:20 - Subjective Subjective: clinically same Objective - Vital Signs/Intake and Output Vital Signs (last 24 hours): Temp Pulse Resp BP Pulse Ox 97.9 F 98 H 20 97/69 L 99 04/24/17 07:58 04/24/17 07:58 04/24/17 07:58 04/24/17 07:58 04/24/17 07:58 Intake and Output: 04/24/17 04/24/17 06:59 18:59 Intake Total 440 Output Total 500 Balance -60 - Medications Medications: Current Medications Apixaban (Eliquis) 5 mg PO BID [facility] Last Admin: 04/24/17 09:20 Dose: 5 mg Cyanocobalamin (Vitamin B12 1000 Mcg Tab) 1,000 mcg PO DAILY [facility] Last Admin: 04/24/17 09:20 Dose: 1,000 mcg Diphenhydramine HCl (Benadryl) 25 mg IVP Q3 PRN PRN Reason: Itching / Pruritus Last Admin: 04/24/17 11:07 Dose: 25 mg Ferrous Sulfate (Feosol) 325 mg PO BID [facility] Last Admin: 04/24/17 09:20 Dose: 325 mg Hydromorphone HCl (Dilaudid) 1 mg IVP Q3H PRN PRN Reason: Pain, moderate (4-7) Last Admin: 04/24/17 11:07 Dose: 1 mg Linezolid (Zyvox 600mg/300ml D5w) 600 mg in 300 mls @ 200 mls/hr IVPB Q12 [facility] Last Admin: 04/24/17 09:19 Dose: 200 mls/hr Ciprofloxacin (Cipro 400mg/200ml Dsw) 400 mg in 200 mls @ 133 mls/hr IVPB Q12H [facility] Last Admin: 04/24/17 06:01 Dose: 133 mls/hr Mesalamine (Delzicol) 800 mg PO DAILY [facility] Last Admin: 04/24/17 09:20 Dose: 800 mg Pantoprazole Sodium (Protonix Ec Tab) 40 mg PO DAILY [facility] Last Admin: 04/24/17 09:20 Dose: 40 mg - Labs Labs: 04/17/17 08:11 04/17/17 08:11 PT 11.3 SECONDS (9.7-12.2) 04/17/17 08:11 INR 1.0 04/17/17 08:11 APTT 26 SECONDS (21-34) 04/17/17 08:11 - Constitutional Appears: Well - Head Exam Head Exam: ATRAUMATIC, NORMAL INSPECTION, NORMOCEPHALIC - Eye Exam Eye Exam: EOMI, Normal appearance, PERRL Pupil Exam: NORMAL ACCOMODATION, PERRL - ENT Exam ENT Exam: Mucous Membranes Moist, Normal Exam - Neck Exam Neck Exam: Full ROM, Normal Inspection. absent: Lymphadenopathy - Respiratory Exam Respiratory Exam: Decreased Breath Sounds - Cardiovascular Exam Cardiovascular Exam: REGULAR RHYTHM, +S1, +S2 - GI/Abdominal Exam GI & Abdominal Exam: Soft, Diminished Bowel Sounds - Rectal Exam Rectal Exam: Deferred Assessment and Plan (1) Abscess Status: Acute (2) Crohn disease Status: Acute (3) Pulmonary embolism Status: Acute (4) Abdominal pain Status: Acute (5) Constipation Status: Acute (6) DVT (deep venous thrombosis) Status: Acute (7) Diarrhea Status: Acute (8) Diarrhea Status: Acute (9) Encounter for wound care Status: Acute (10) Fever Status: Acute (11) Foreign body Status: Acute (12) Intractable abdominal pain Status: Acute (13) Intractable pain Status: Acute (14) Prophylactic measure Status: Acute (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
--- NOTE | 2017-04-24 14:51 | CP.PCM.PN ---
Subjective - Date & Time of Evaluation Date of Evaluation: 04/24/17 Time of Evaluation: 14:47 - Subjective Subjective: Surgery Pt s&e. NAEON. c/o scrotum pain and R axillary pain. Objective - Vital Signs/Intake and Output Vital Signs (last 24 hours): Temp Pulse Resp BP Pulse Ox 97.9 F 98 H 20 97/69 L 99 04/24/17 07:58 04/24/17 07:58 04/24/17 07:58 04/24/17 07:58 04/24/17 07:58 Intake and Output: 04/24/17 04/24/17 06:59 18:59 Intake Total 440 Output Total 500 Balance -60 - Medications Medications: Current Medications Apixaban (Eliquis) 5 mg PO BID [facility] Last Admin: 04/24/17 09:20 Dose: 5 mg Cyanocobalamin (Vitamin B12 1000 Mcg Tab) 1,000 mcg PO DAILY [facility] Last Admin: 04/24/17 09:20 Dose: 1,000 mcg Diphenhydramine HCl (Benadryl) 25 mg IVP Q3 PRN PRN Reason: Itching / Pruritus Last Admin: 04/24/17 14:01 Dose: 25 mg Ferrous Sulfate (Feosol) 325 mg PO BID [facility] Last Admin: 04/24/17 09:20 Dose: 325 mg Hydromorphone HCl (Dilaudid) 1 mg IVP Q3H PRN PRN Reason: Pain, moderate (4-7) Last Admin: 04/24/17 14:01 Dose: 1 mg Linezolid (Zyvox 600mg/300ml D5w) 600 mg in 300 mls @ 200 mls/hr IVPB Q12 [facility] Last Admin: 04/24/17 09:19 Dose: 200 mls/hr Ciprofloxacin (Cipro 400mg/200ml Dsw) 400 mg in 200 mls @ 133 mls/hr IVPB Q12H [facility] Last Admin: 04/24/17 06:01 Dose: 133 mls/hr Mesalamine (Delzicol) 800 mg PO DAILY [facility] Last Admin: 04/24/17 09:20 Dose: 800 mg Pantoprazole Sodium (Protonix Ec Tab) 40 mg PO DAILY [facility] Last Admin: 04/24/17 09:20 Dose: 40 mg - Labs Labs: 04/17/17 08:11 04/17/17 08:11 PT 11.3 SECONDS (9.7-12.2) 04/17/17 08:11 INR 1.0 04/17/17 08:11 APTT 26 SECONDS (21-34) 04/17/17 08:11 - Constitutional Appears: No Acute Distress - Head Exam Head Exam: ATRAUMATIC, NORMAL INSPECTION, NORMOCEPHALIC - Eye Exam Eye Exam: EOMI, Normal appearance, PERRL Pupil Exam: NORMAL ACCOMODATION, PERRL - ENT Exam ENT Exam: Mucous Membranes Moist, Normal Exam - Neck Exam Neck Exam: Full ROM, Normal Inspection. absent: Lymphadenopathy - Respiratory Exam Respiratory Exam: Clear to Ausculation Bilateral, NORMAL BREATHING PATTERN - Cardiovascular Exam Cardiovascular Exam: REGULAR RHYTHM, +S1, +S2. absent: Murmur - GI/Abdominal Exam GI & Abdominal Exam: Soft, Normal Bowel Sounds. absent: Distended, Tenderness - Exam Exam: Circumcision. absent: NORMAL INSPECTION, Uretheral Discharge Additional comments: Excoriation on scrotum. - Extremities Exam Extremities Exam: Full ROM, Normal Capillary Refill. absent: Joint Swelling, Pedal Edema Additional comments: R axilla. TTP. 5x2cm palpable mass. - Back Exam Back Exam: NORMAL INSPECTION - Neurological Exam Neurological Exam: Alert, Awake, CN II-XII Intact, Normal Gait, Oriented x3 - Psychiatric Exam Psychiatric exam: Normal Affect, Normal Mood - Skin Skin Exam: Dry, Intact, Normal Color, Warm. absent: Erythema Assessment and Plan - Assessment and Plan (Free Text) Assessment: 22 yo M with a PMHX of crohn's/perirectal disease who is POD#4 from I&D for perirectal abcess Possible R axillary abscess Plan: -US of R axilla -Warm compress - daily dressing changes -ABX Further recs discuss with Dr. Taylor
--- NOTE | 2017-04-24 17:49 | US ---
PROCEDURE: Ultrasound right axilla HISTORY: R axillary abscess COMPARISON: Not available TECHNIQUE: Examination of the right axilla was performed utilizing a linear array transducer. FINDINGS: There is a poorly circumscribed fluid collection in the right axilla measuring 2.8 x 0.6 x 2.2 cm. The wall is irregular and continuous with edema of subcutaneous soft tissues. There is no clear peripheral hypervascularity. The appearance is nonspecific. There is no soft tissue mass. There is no additional abnormality identified. , IMPRESSION: Nonspecific irregular fluid collection in right axilla. No significant peripheral hypervascularity to suggest that this represents an acute abscess.
[2017-04-25] MEDS: DiphenhydrAMINE 50 mg/ml Inj IVP PRN ×8 (02:25→23:44)
[2017-04-25] MEDS: Ciprofloxacin 400mg/200ml D5W 400 MG/200 ML BAG IVPB SCH ×2 (06:04→20:33)
[2017-04-25] MEDS: Linezolid 600 mg in D5W 300 ml 600 MG/300 ML BAG IVPB SCH ×2 (09:23→22:06)
[2017-04-25] MEDS: Pantoprazole 40 mg EC Tab PO SCH (09:24)
--- NOTE | 2017-04-25 14:17 | CP.PCM.PN ---
Subjective - Date & Time of Evaluation Date of Evaluation: 04/25/17 Time of Evaluation: 09:40 - Subjective Subjective: clinically same Objective - Vital Signs/Intake and Output Vital Signs (last 24 hours): Temp Pulse Resp BP Pulse Ox 98.1 F 89 18 102/68 97 04/25/17 07:00 04/25/17 07:00 04/25/17 07:00 04/25/17 07:00 04/25/17 07:00 Intake and Output: 04/25/17 04/25/17 06:59 18:59 Intake Total 1420 Output Total 800 Balance 620 - Medications Medications: Current Medications Apixaban (Eliquis) 5 mg PO BID [facility] Last Admin: 04/25/17 09:24 Dose: 5 mg Cyanocobalamin (Vitamin B12 1000 Mcg Tab) 1,000 mcg PO DAILY [facility] Last Admin: 04/25/17 09:24 Dose: 1,000 mcg Diphenhydramine HCl (Benadryl) 25 mg IVP Q3 PRN PRN Reason: Itching / Pruritus Last Admin: 04/25/17 11:26 Dose: 25 mg Ferrous Sulfate (Feosol) 325 mg PO BID [facility] Last Admin: 04/25/17 09:24 Dose: 325 mg Hydromorphone HCl (Dilaudid) 1 mg IVP Q3H PRN PRN Reason: Pain, moderate (4-7) Last Admin: 04/25/17 11:26 Dose: 1 mg Linezolid (Zyvox 600mg/300ml D5w) 600 mg in 300 mls @ 200 mls/hr IVPB Q12 [facility] Last Admin: 04/25/17 09:23 Dose: 200 mls/hr Ciprofloxacin (Cipro 400mg/200ml Dsw) 400 mg in 200 mls @ 133 mls/hr IVPB Q12H [facility] Last Admin: 04/25/17 06:04 Dose: 133 mls/hr Mesalamine (Delzicol) 800 mg PO DAILY [facility] Last Admin: 04/25/17 09:24 Dose: 800 mg Pantoprazole Sodium (Protonix Ec Tab) 40 mg PO DAILY [facility] Last Admin: 04/25/17 09:24 Dose: 40 mg - Labs Labs: 04/17/17 08:11 04/17/17 08:11 PT 11.3 SECONDS (9.7-12.2) 04/17/17 08:11 INR 1.0 04/17/17 08:11 APTT 26 SECONDS (21-34) 04/17/17 08:11 - Constitutional Appears: Well - Head Exam Head Exam: ATRAUMATIC, NORMAL INSPECTION, NORMOCEPHALIC - Eye Exam Eye Exam: EOMI, Normal appearance, PERRL - ENT Exam ENT Exam: Mucous Membranes Moist, Normal Exam - Neck Exam Neck Exam: Full ROM, Normal Inspection. absent: Lymphadenopathy - Respiratory Exam Respiratory Exam: Decreased Breath Sounds - Cardiovascular Exam Cardiovascular Exam: REGULAR RHYTHM, +S1, +S2. absent: Murmur - GI/Abdominal Exam GI & Abdominal Exam: Diminished Bowel Sounds - Rectal Exam Rectal Exam: Deferred Assessment and Plan (1) Abscess Status: Acute (2) Crohn disease Status: Acute (3) Pulmonary embolism Status: Acute (4) Abdominal pain Status: Acute (5) Constipation Status: Acute (6) DVT (deep venous thrombosis) Status: Acute (7) Diarrhea Status: Acute (8) Diarrhea Status: Acute (9) Encounter for wound care Status: Acute (10) Fever Status: Acute (11) Foreign body Status: Acute (12) Intractable abdominal pain Status: Acute (13) Intractable pain Status: Acute (14) Prophylactic measure Status: Acute (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
[2017-04-26] MEDS: DiphenhydrAMINE 50 mg/ml Inj IVP PRN ×7 (02:52→22:38)
[2017-04-26] MEDS: Ciprofloxacin 400mg/200ml D5W 400 MG/200 ML BAG IVPB SCH ×2 (06:00→19:26)
[2017-04-26] MEDS: Pantoprazole 40 mg EC Tab PO SCH (09:22)
[2017-04-26] MEDS: Linezolid 600 mg in D5W 300 ml 600 MG/300 ML BAG IVPB SCH ×2 (09:22→22:41)
[2017-04-26] MEDS ORDERED: HYDROmorphone 1 mg/ml ISec IVP STA (09:27)
[2017-04-26] MEDS: HYDROmorphone 1 mg/ml ISec IVP PRN ×4 (12:48→22:39)
--- NOTE | 2017-04-26 14:00 | CP.PCM.PN ---
Subjective - Date & Time of Evaluation Date of Evaluation: 04/26/17 Time of Evaluation: 09:40 - Subjective Subjective: clinically same Objective - Vital Signs/Intake and Output Vital Signs (last 24 hours): Temp Pulse Resp BP Pulse Ox 98.9 F 74 18 119/83 100 04/26/17 08:52 04/26/17 08:52 04/26/17 08:52 04/26/17 08:52 04/26/17 08:52 Intake and Output: 04/26/17 04/26/17 06:59 18:59 Intake Total 820 Output Total 400 Balance 420 - Medications Medications: Current Medications Apixaban (Eliquis) 5 mg PO BID [facility] Last Admin: 04/26/17 09:22 Dose: 5 mg Cyanocobalamin (Vitamin B12 1000 Mcg Tab) 1,000 mcg PO DAILY [facility] Last Admin: 04/26/17 09:23 Dose: 1,000 mcg Diphenhydramine HCl (Benadryl) 25 mg IVP Q3 PRN PRN Reason: Itching / Pruritus Last Admin: 04/26/17 12:49 Dose: 25 mg Ferrous Sulfate (Feosol) 325 mg PO BID [facility] Last Admin: 04/26/17 09:22 Dose: 325 mg Hydromorphone HCl (Dilaudid) 1 mg IVP Q3 PRN PRN Reason: Pain, moderate (4-7) Last Admin: 04/26/17 12:48 Dose: 1 mg Linezolid (Zyvox 600mg/300ml D5w) 600 mg in 300 mls @ 200 mls/hr IVPB Q12 [facility] Last Admin: 04/26/17 09:22 Dose: 200 mls/hr Ciprofloxacin (Cipro 400mg/200ml Dsw) 400 mg in 200 mls @ 133 mls/hr IVPB Q12H [facility] Last Admin: 04/26/17 06:00 Dose: 133 mls/hr Mesalamine (Delzicol) 800 mg PO DAILY [facility] Last Admin: 04/26/17 09:22 Dose: 800 mg Pantoprazole Sodium (Protonix Ec Tab) 40 mg PO DAILY [facility] Last Admin: 04/26/17 09:22 Dose: 40 mg - Labs Labs: 04/17/17 08:11 04/17/17 08:11 PT 11.3 SECONDS (9.7-12.2) 04/17/17 08:11 INR 1.0 04/17/17 08:11 APTT 26 SECONDS (21-34) 04/17/17 08:11 - Constitutional Appears: Well - Head Exam Head Exam: ATRAUMATIC, NORMAL INSPECTION, NORMOCEPHALIC - Eye Exam Eye Exam: EOMI, Normal appearance, PERRL - ENT Exam ENT Exam: Mucous Membranes Moist, Normal Exam - Neck Exam Neck Exam: Full ROM, Normal Inspection. absent: Lymphadenopathy - Respiratory Exam Respiratory Exam: Decreased Breath Sounds - Cardiovascular Exam Cardiovascular Exam: REGULAR RHYTHM, +S1, +S2. absent: Murmur - GI/Abdominal Exam GI & Abdominal Exam: Diminished Bowel Sounds - Rectal Exam Rectal Exam: Deferred Assessment and Plan (1) Abscess Status: Acute (2) Crohn disease Status: Acute (3) Pulmonary embolism Status: Acute (4) Abdominal pain Status: Acute (5) Constipation Status: Acute (6) DVT (deep venous thrombosis) Status: Acute (7) Diarrhea Status: Acute (8) Diarrhea Status: Acute (9) Encounter for wound care Status: Acute (10) Fever Status: Acute (11) Foreign body Status: Acute (12) Intractable abdominal pain Status: Acute (13) Intractable pain Status: Acute (14) Prophylactic measure Status: Acute (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
--- NOTE | 2017-04-26 14:22 | CP.PCM.PN ---
Subjective - Date & Time of Evaluation Date of Evaluation: 04/26/17 Time of Evaluation: 09:00 - Subjective Subjective: iv rx renewed Objective - Vital Signs/Intake and Output Vital Signs (last 24 hours): Temp Pulse Resp BP Pulse Ox 98.9 F 74 18 119/83 100 04/26/17 08:52 04/26/17 08:52 04/26/17 08:52 04/26/17 08:52 04/26/17 08:52 Intake and Output: 04/26/17 04/26/17 06:59 18:59 Intake Total 820 Output Total 400 Balance 420 - Medications Medications: Current Medications Apixaban (Eliquis) 5 mg PO BID [facility] Last Admin: 04/26/17 09:22 Dose: 5 mg Cyanocobalamin (Vitamin B12 1000 Mcg Tab) 1,000 mcg PO DAILY [facility] Last Admin: 04/26/17 09:23 Dose: 1,000 mcg Diphenhydramine HCl (Benadryl) 25 mg IVP Q3 PRN PRN Reason: Itching / Pruritus Last Admin: 04/26/17 12:49 Dose: 25 mg Ferrous Sulfate (Feosol) 325 mg PO BID [facility] Last Admin: 04/26/17 09:22 Dose: 325 mg Hydromorphone HCl (Dilaudid) 1 mg IVP Q3 PRN PRN Reason: Pain, moderate (4-7) Last Admin: 04/26/17 12:48 Dose: 1 mg Linezolid (Zyvox 600mg/300ml D5w) 600 mg in 300 mls @ 200 mls/hr IVPB Q12 [facility] Last Admin: 04/26/17 09:22 Dose: 200 mls/hr Ciprofloxacin (Cipro 400mg/200ml Dsw) 400 mg in 200 mls @ 133 mls/hr IVPB Q12H [facility] Last Admin: 04/26/17 06:00 Dose: 133 mls/hr Mesalamine (Delzicol) 800 mg PO DAILY [facility] Last Admin: 04/26/17 09:22 Dose: 800 mg Pantoprazole Sodium (Protonix Ec Tab) 40 mg PO DAILY [facility] Last Admin: 04/26/17 09:22 Dose: 40 mg - Labs Labs: 04/17/17 08:11 04/17/17 08:11 PT 11.3 SECONDS (9.7-12.2) 04/17/17 08:11 INR 1.0 04/17/17 08:11 APTT 26 SECONDS (21-34) 04/17/17 08:11 - Constitutional Appears: Non-toxic, Cachectic - Head Exam Head Exam: NORMOCEPHALIC - Eye Exam Eye Exam: PERRL Pupil Exam: NORMAL ACCOMODATION - ENT Exam ENT Exam: Mucous Membranes Dry - Neck Exam Neck Exam: absent: Lymphadenopathy - Respiratory Exam Respiratory Exam: Decreased Breath Sounds - Cardiovascular Exam Cardiovascular Exam: REGULAR RHYTHM Assessment and Plan (1) Abdominal pain Status: Acute (2) Abscess Status: Acute (3) Crohn disease Status: Acute (4) DVT (deep venous thrombosis) Status: Acute (5) Wound of right buttock Status: Acute (6) Pulmonary embolism Status: Acute
[2017-04-27] MEDS: DiphenhydrAMINE 50 mg/ml Inj IVP PRN ×8 (02:03→23:39)
[2017-04-27] MEDS: HYDROmorphone 1 mg/ml ISec IVP PRN ×8 (02:03→23:40)
[2017-04-27] MEDS: Ciprofloxacin 400mg/200ml D5W 400 MG/200 ML BAG IVPB SCH ×2 (06:09→19:22)
[2017-04-27] MEDS: Pantoprazole 40 mg EC Tab PO SCH (09:41)
[2017-04-27] MEDS: Linezolid 600 mg in D5W 300 ml 600 MG/300 ML BAG IVPB SCH ×2 (09:41→21:40)
--- NOTE | 2017-04-27 18:24 | CP.PCM.PN ---
Subjective - Date & Time of Evaluation Date of Evaluation: 04/27/17 Time of Evaluation: 09:20 - Subjective Subjective: clinically same Objective - Vital Signs/Intake and Output Vital Signs (last 24 hours): Temp Pulse Resp BP Pulse Ox 97.5 F L 80 20 116/66 100 04/27/17 15:00 04/27/17 15:00 04/27/17 15:00 04/27/17 15:00 04/27/17 15:00 Intake and Output: 04/27/17 04/27/17 06:59 18:59 Intake Total 820 Balance 820 - Medications Medications: Current Medications Apixaban (Eliquis) 5 mg PO BID [facility] Last Admin: 04/27/17 09:41 Dose: 5 mg Cyanocobalamin (Vitamin B12 1000 Mcg Tab) 1,000 mcg PO DAILY [facility] Last Admin: 04/27/17 09:41 Dose: 1,000 mcg Diphenhydramine HCl (Benadryl) 25 mg IVP Q3 PRN PRN Reason: Itching / Pruritus Last Admin: 04/27/17 17:29 Dose: 25 mg Ferrous Sulfate (Feosol) 325 mg PO BID [facility] Last Admin: 04/27/17 17:28 Dose: 325 mg Hydromorphone HCl (Dilaudid) 1 mg IVP Q3 PRN PRN Reason: Pain, moderate (4-7) Last Admin: 04/27/17 17:29 Dose: 1 mg Linezolid (Zyvox 600mg/300ml D5w) 600 mg in 300 mls @ 200 mls/hr IVPB Q12 [facility] Last Admin: 04/27/17 09:41 Dose: 200 mls/hr Ciprofloxacin (Cipro 400mg/200ml Dsw) 400 mg in 200 mls @ 133 mls/hr IVPB Q12H [facility] Last Admin: 04/27/17 06:09 Dose: 133 mls/hr Mesalamine (Delzicol) 800 mg PO DAILY [facility] Last Admin: 04/27/17 09:41 Dose: 800 mg Pantoprazole Sodium (Protonix Ec Tab) 40 mg PO DAILY [facility] Last Admin: 04/27/17 09:41 Dose: 40 mg - Labs Labs: 04/17/17 08:11 04/17/17 08:11 PT 11.3 SECONDS (9.7-12.2) 04/17/17 08:11 INR 1.0 04/17/17 08:11 APTT 26 SECONDS (21-34) 04/17/17 08:11 - Constitutional Appears: Well - Head Exam Head Exam: ATRAUMATIC, NORMAL INSPECTION, NORMOCEPHALIC - Eye Exam Eye Exam: EOMI, Normal appearance, PERRL Pupil Exam: NORMAL ACCOMODATION, PERRL - ENT Exam ENT Exam: Mucous Membranes Moist, Normal Exam - Neck Exam Neck Exam: Full ROM, Normal Inspection. absent: Lymphadenopathy - Respiratory Exam Respiratory Exam: Decreased Breath Sounds - Cardiovascular Exam Cardiovascular Exam: REGULAR RHYTHM, +S1, +S2 - GI/Abdominal Exam GI & Abdominal Exam: Soft, Diminished Bowel Sounds - Rectal Exam Rectal Exam: Deferred Assessment and Plan (1) Abscess Status: Acute (2) Crohn disease Status: Acute (3) Pulmonary embolism Status: Acute (4) Abdominal pain Status: Acute (5) Constipation Status: Acute (6) DVT (deep venous thrombosis) Status: Acute (7) Diarrhea Status: Acute (8) Diarrhea Status: Acute (9) Encounter for wound care Status: Acute (10) Fever Status: Acute (11) Foreign body Status: Acute (12) Intractable abdominal pain Status: Acute (13) Intractable pain Status: Acute (14) Prophylactic measure Status: Acute (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
[2017-04-28] MEDS: DiphenhydrAMINE 50 mg/ml Inj IVP PRN ×7 (02:40→21:11)
[2017-04-28] MEDS: HYDROmorphone 1 mg/ml ISec IVP PRN ×7 (02:41→21:11)
[2017-04-28] MEDS: Ciprofloxacin 400mg/200ml D5W 400 MG/200 ML BAG IVPB SCH ×2 (06:39→18:38)
[2017-04-28] MEDS ORDERED: Ciprofloxacin 200mg/100ml D5W 100 ML IVPB SCH (07:00)
[2017-04-28] MEDS: Pantoprazole 40 mg EC Tab PO SCH (10:16)
[2017-04-28] MEDS: Linezolid 600 mg in D5W 300 ml 600 MG/300 ML BAG IVPB SCH ×2 (10:18→21:33)
--- NOTE | 2017-04-28 14:30 | CP.PCM.PN ---
Subjective - Date & Time of Evaluation Date of Evaluation: 04/28/17 Time of Evaluation: 10:20 - Subjective Subjective: clinically same Objective - Vital Signs/Intake and Output Vital Signs (last 24 hours): Temp Pulse Resp BP Pulse Ox 98.7 F 111 H 20 100/71 98 04/28/17 07:40 04/28/17 07:40 04/28/17 07:40 04/28/17 07:40 04/28/17 07:40 - Medications Medications: Current Medications Apixaban (Eliquis) 5 mg PO BID [facility] Last Admin: 04/27/17 09:41 Dose: 5 mg Cyanocobalamin (Vitamin B12 1000 Mcg Tab) 1,000 mcg PO DAILY [facility] Last Admin: 04/28/17 10:17 Dose: 1,000 mcg Diphenhydramine HCl (Benadryl) 25 mg IVP Q3 PRN PRN Reason: Itching / Pruritus Last Admin: 04/28/17 11:50 Dose: 25 mg Ferrous Sulfate (Feosol) 325 mg PO BID [facility] Last Admin: 04/28/17 10:16 Dose: 325 mg Hydromorphone HCl (Dilaudid) 1 mg IVP Q3 PRN PRN Reason: Pain, moderate (4-7) Last Admin: 04/28/17 11:50 Dose: 1 mg Linezolid (Zyvox 600mg/300ml D5w) 600 mg in 300 mls @ 200 mls/hr IVPB Q12 [facility] Last Admin: 04/28/17 10:18 Dose: 200 mls/hr Ciprofloxacin (Cipro 400mg/200ml Dsw) 400 mg in 200 mls @ 133 mls/hr IVPB Q12H [facility] Last Admin: 04/28/17 06:39 Dose: 133 mls/hr Mesalamine (Delzicol) 800 mg PO DAILY [facility] Last Admin: 04/28/17 10:16 Dose: 800 mg Pantoprazole Sodium (Protonix Ec Tab) 40 mg PO DAILY [facility] Last Admin: 04/28/17 10:16 Dose: 40 mg - Labs Labs: 04/17/17 08:11 04/17/17 08:11 PT 11.3 SECONDS (9.7-12.2) 04/17/17 08:11 INR 1.0 04/17/17 08:11 APTT 26 SECONDS (21-34) 04/17/17 08:11 - Constitutional Appears: Well - Head Exam Head Exam: ATRAUMATIC, NORMAL INSPECTION, NORMOCEPHALIC - Eye Exam Eye Exam: EOMI, Normal appearance, PERRL Pupil Exam: NORMAL ACCOMODATION, PERRL - ENT Exam ENT Exam: Mucous Membranes Moist, Normal Exam - Neck Exam Neck Exam: Full ROM, Normal Inspection. absent: Lymphadenopathy - Respiratory Exam Respiratory Exam: Decreased Breath Sounds - Cardiovascular Exam Cardiovascular Exam: REGULAR RHYTHM, +S1, +S2 - GI/Abdominal Exam GI & Abdominal Exam: Soft, Diminished Bowel Sounds - Rectal Exam Rectal Exam: Deferred Assessment and Plan (1) Abscess Status: Acute (2) Crohn disease Status: Acute (3) Pulmonary embolism Status: Acute (4) Abdominal pain Status: Acute (5) Constipation Status: Acute (6) DVT (deep venous thrombosis) Status: Acute (7) Diarrhea Status: Acute (8) Diarrhea Status: Acute (9) Encounter for wound care Status: Acute (10) Fever Status: Acute (11) Foreign body Status: Acute (12) Intractable abdominal pain Status: Acute (13) Intractable pain Status: Acute (14) Prophylactic measure Status: Acute (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
[2017-04-29] MEDS: HYDROmorphone 1 mg/ml ISec IVP PRN ×8 (00:15→22:12)
[2017-04-29] MEDS: DiphenhydrAMINE 50 mg/ml Inj IVP PRN ×8 (00:16→22:12)
[2017-04-29] MEDS: Ciprofloxacin 400mg/200ml D5W 400 MG/200 ML BAG IVPB SCH ×2 (06:20→18:51)
--- NOTE | 2017-04-29 07:29 | CP.PCM.PCO ---
Physician Communication Note - Physician Communication Note Physician Communication Note: No drainable abscess noted. Cont care per primary
[2017-04-29] MEDS: Pantoprazole 40 mg EC Tab PO SCH (09:12)
[2017-04-29] MEDS: Linezolid 600 mg in D5W 300 ml 600 MG/300 ML BAG IVPB SCH ×2 (09:14→22:12)
--- NOTE | 2017-04-29 22:02 | CP.PCM.PN ---
Subjective - Date & Time of Evaluation Date of Evaluation: 04/29/17 Time of Evaluation: 09:20 - Subjective Subjective: clinically same Objective - Vital Signs/Intake and Output Vital Signs (last 24 hours): Temp Pulse Resp BP Pulse Ox 98 F 109 H 20 144/66 100 04/29/17 15:00 04/29/17 15:00 04/29/17 15:00 04/29/17 15:00 04/29/17 15:00 - Medications Medications: Current Medications Apixaban (Eliquis) 5 mg PO BID [facility] Last Admin: 04/27/17 09:41 Dose: 5 mg Cyanocobalamin (Vitamin B12 1000 Mcg Tab) 1,000 mcg PO DAILY [facility] Last Admin: 04/29/17 09:13 Dose: 1,000 mcg Diphenhydramine HCl (Benadryl) 25 mg IVP Q3 PRN PRN Reason: Itching / Pruritus Last Admin: 04/29/17 18:52 Dose: 25 mg Ferrous Sulfate (Feosol) 325 mg PO BID [facility] Last Admin: 04/29/17 18:52 Dose: 325 mg Hydromorphone HCl (Dilaudid) 1 mg IVP Q3 PRN PRN Reason: Pain, moderate (4-7) Last Admin: 04/29/17 18:52 Dose: 1 mg Hydromorphone HCl (Dilaudid) 1 mg IVP Q3 PRN PRN Reason: pain 4-7 Linezolid (Zyvox 600mg/300ml D5w) 600 mg in 300 mls @ 200 mls/hr IVPB Q12 [facility] Last Admin: 04/29/17 09:14 Dose: 200 mls/hr Ciprofloxacin (Cipro 400mg/200ml Dsw) 400 mg in 200 mls @ 133 mls/hr IVPB Q12H [facility] Last Admin: 04/29/17 18:51 Dose: 133 mls/hr Mesalamine (Delzicol) 800 mg PO DAILY [facility] Last Admin: 04/29/17 09:12 Dose: 800 mg Pantoprazole Sodium (Protonix Ec Tab) 40 mg PO DAILY [facility] Last Admin: 04/29/17 09:12 Dose: 40 mg - Labs Labs: 04/17/17 08:11 04/17/17 08:11 PT 11.3 SECONDS (9.7-12.2) 04/17/17 08:11 INR 1.0 04/17/17 08:11 APTT 26 SECONDS (21-34) 04/17/17 08:11 - Constitutional Appears: Well - Head Exam Head Exam: ATRAUMATIC, NORMAL INSPECTION, NORMOCEPHALIC - Eye Exam Eye Exam: EOMI, Normal appearance, PERRL Pupil Exam: NORMAL ACCOMODATION, PERRL - ENT Exam ENT Exam: Mucous Membranes Moist, Normal Exam - Neck Exam Neck Exam: Full ROM, Normal Inspection. absent: Lymphadenopathy - Respiratory Exam Respiratory Exam: Decreased Breath Sounds - Cardiovascular Exam Cardiovascular Exam: REGULAR RHYTHM, +S1, +S2 - GI/Abdominal Exam GI & Abdominal Exam: Soft, Diminished Bowel Sounds - Rectal Exam Rectal Exam: Deferred Assessment and Plan (1) Abscess Status: Acute (2) Crohn disease Status: Acute (3) Pulmonary embolism Status: Acute (4) Abdominal pain Status: Acute (5) Constipation Status: Acute (6) DVT (deep venous thrombosis) Status: Acute (7) Diarrhea Status: Acute (8) Diarrhea Status: Acute (9) Encounter for wound care Status: Acute (10) Fever Status: Acute (11) Foreign body Status: Acute (12) Intractable abdominal pain Status: Acute (13) Intractable pain Status: Acute (14) Prophylactic measure Status: Acute (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
--- NOTE | 2017-04-29 22:15 | CP.PCM.PN ---
Subjective - Date & Time of Evaluation Date of Evaluation: 04/29/17 Time of Evaluation: 05:00 - Subjective Subjective: dictated Objective - Vital Signs/Intake and Output Vital Signs (last 24 hours): Temp Pulse Resp BP Pulse Ox 98 F 109 H 20 144/66 100 04/29/17 15:00 04/29/17 15:00 04/29/17 15:00 04/29/17 15:00 04/29/17 15:00 - Medications Medications: Current Medications Apixaban (Eliquis) 5 mg PO BID [facility] Last Admin: 04/27/17 09:41 Dose: 5 mg Cyanocobalamin (Vitamin B12 1000 Mcg Tab) 1,000 mcg PO DAILY [facility] Last Admin: 04/29/17 09:13 Dose: 1,000 mcg Diphenhydramine HCl (Benadryl) 25 mg IVP Q3 PRN PRN Reason: Itching / Pruritus Last Admin: 04/29/17 22:12 Dose: 25 mg Ferrous Sulfate (Feosol) 325 mg PO BID [facility] Last Admin: 04/29/17 18:52 Dose: 325 mg Hydromorphone HCl (Dilaudid) 1 mg IVP Q3 PRN PRN Reason: Pain, moderate (4-7) Last Admin: 04/29/17 22:12 Dose: 1 mg Hydromorphone HCl (Dilaudid) 1 mg IVP Q3 PRN PRN Reason: pain 4-7 Linezolid (Zyvox 600mg/300ml D5w) 600 mg in 300 mls @ 200 mls/hr IVPB Q12 [facility] Last Admin: 04/29/17 22:12 Dose: 200 mls/hr Ciprofloxacin (Cipro 400mg/200ml Dsw) 400 mg in 200 mls @ 133 mls/hr IVPB Q12H [facility] Last Admin: 04/29/17 18:51 Dose: 133 mls/hr Mesalamine (Delzicol) 800 mg PO DAILY [facility] Last Admin: 04/29/17 09:12 Dose: 800 mg Pantoprazole Sodium (Protonix Ec Tab) 40 mg PO DAILY [facility] Last Admin: 04/29/17 09:12 Dose: 40 mg - Labs Labs: 04/17/17 08:11 04/17/17 08:11 PT 11.3 SECONDS (9.7-12.2) 04/17/17 08:11 INR 1.0 04/17/17 08:11 APTT 26 SECONDS (21-34) 04/17/17 08:11
[2017-04-30] MEDS: DiphenhydrAMINE 50 mg/ml Inj IVP PRN ×8 (01:24→23:17)
[2017-04-30] MEDS: HYDROmorphone 1 mg/ml ISec IVP PRN ×8 (01:25→23:18)
--- NOTE | 2017-04-30 01:46 | PN ---
DATE: SUBJECTIVE: Patient remains on IV antibiotics, and at this time, he was supposed to have I and D done as his groin abscesses are enlarging. He also shows me today a new right axilla lymph node, which is tender and I do not know if it is an abscess or lymph node, but he is tender in the right axilla and will need to be evaluated by the surgeon again. PHYSICAL EXAMINATION: GENERAL: He is awake and alert. VITAL SIGNS: Temperature is 98, blood pressure is 144/66, pulse is 109, and respirations are 20. HEENT: Head is atraumatic and normocephalic. NECK: Supple. LUNGS: Clear. HEART: S1 and S2 is regular. Tachycardic. ABDOMEN: Has a colostomy bag and he remains with perineal abscesses. EXTREMITIES: No edema. ASSESSMENT AND PLAN: Now, I am getting suspicious as he is always having multiple abscesses as he is taking any Humira on his own or any immunosuppressant that may be suppressing his immunity further or is it that he has Hidradenitis suppurativa as he is developing abscesses in the axilla as well as in the perirectal folds and I am wondering what to do as he has been on antibiotics and he is approaching almost 6 weeks being on these antibiotics. We will follow with Dr. Shiloh Barrett and surgeon and hope he can get these incision and drainages done soon or do we need a plastic surgeon to evaluate and take away and do a deep resection of the skin and put a graft there from another site should be considered. Santosh Daniel MD
[2017-04-30] MEDS: Ciprofloxacin 400mg/200ml D5W 400 MG/200 ML BAG IVPB SCH ×2 (06:14→18:26)
[2017-04-30] MEDS: Pantoprazole 40 mg EC Tab PO SCH (09:36)
[2017-04-30] MEDS: Linezolid 600 mg in D5W 300 ml 600 MG/300 ML BAG IVPB SCH ×2 (09:38→21:39)
--- NOTE | 2017-04-30 09:53 | CP.PCM.PN ---
Subjective - Date & Time of Evaluation Date of Evaluation: 04/30/17 Time of Evaluation: 10:00 - Subjective Subjective: clinically same Objective - Vital Signs/Intake and Output Vital Signs (last 24 hours): Temp Pulse Resp BP Pulse Ox 98.3 F 96 H 20 92/61 L 98 04/30/17 04:05 04/30/17 04:05 04/30/17 04:05 04/30/17 04:05 04/30/17 04:05 Intake and Output: 04/30/17 04/30/17 06:59 18:59 Intake Total 980 Balance 980 - Medications Medications: Current Medications Apixaban (Eliquis) 5 mg PO BID [facility] Last Admin: 04/27/17 09:41 Dose: 5 mg Cyanocobalamin (Vitamin B12 1000 Mcg Tab) 1,000 mcg PO DAILY [facility] Last Admin: 04/30/17 09:37 Dose: 1,000 mcg Diphenhydramine HCl (Benadryl) 25 mg IVP Q3 PRN PRN Reason: Itching / Pruritus Last Admin: 04/30/17 08:05 Dose: 25 mg Ferrous Sulfate (Feosol) 325 mg PO BID [facility] Last Admin: 04/30/17 09:36 Dose: 325 mg Hydromorphone HCl (Dilaudid) 1 mg IVP Q3 PRN PRN Reason: Pain, moderate (4-7) Last Admin: 04/30/17 08:03 Dose: 1 mg Hydromorphone HCl (Dilaudid) 1 mg IVP Q3 PRN PRN Reason: pain 4-7 Linezolid (Zyvox 600mg/300ml D5w) 600 mg in 300 mls @ 200 mls/hr IVPB Q12 [facility] Last Admin: 04/30/17 09:38 Dose: 200 mls/hr Ciprofloxacin (Cipro 400mg/200ml Dsw) 400 mg in 200 mls @ 133 mls/hr IVPB Q12H [facility] Last Admin: 04/30/17 06:14 Dose: 133 mls/hr Mesalamine (Delzicol) 800 mg PO DAILY [facility] Last Admin: 04/30/17 09:36 Dose: 800 mg Pantoprazole Sodium (Protonix Ec Tab) 40 mg PO DAILY [facility] Last Admin: 04/30/17 09:36 Dose: 40 mg - Labs Labs: 04/17/17 08:11 04/17/17 08:11 PT 11.3 SECONDS (9.7-12.2) 04/17/17 08:11 INR 1.0 04/17/17 08:11 APTT 26 SECONDS (21-34) 04/17/17 08:11 - Constitutional Appears: Well - Head Exam Head Exam: ATRAUMATIC, NORMAL INSPECTION, NORMOCEPHALIC - Eye Exam Eye Exam: EOMI, Normal appearance, PERRL Pupil Exam: NORMAL ACCOMODATION, PERRL - ENT Exam ENT Exam: Mucous Membranes Moist, Normal Exam - Neck Exam Neck Exam: Full ROM, Normal Inspection. absent: Lymphadenopathy - Respiratory Exam Respiratory Exam: Decreased Breath Sounds - Cardiovascular Exam Cardiovascular Exam: REGULAR RHYTHM, +S1, +S2 - GI/Abdominal Exam GI & Abdominal Exam: Soft, Diminished Bowel Sounds - Rectal Exam Rectal Exam: Deferred Assessment and Plan (1) Abscess Status: Acute (2) Crohn disease Status: Acute (3) Pulmonary embolism Status: Acute (4) Abdominal pain Status: Acute (5) Constipation Status: Acute (6) DVT (deep venous thrombosis) Status: Acute (7) Diarrhea Status: Acute (8) Diarrhea Status: Acute (9) Encounter for wound care Status: Acute (10) Fever Status: Acute (11) Foreign body Status: Acute (12) Intractable abdominal pain Status: Acute (13) Intractable pain Status: Acute (14) Prophylactic measure Status: Acute (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
--- NOTE | 2017-04-30 20:11 | CON ---
DATE: 04/30/2017 REASON FOR CONSULTATION: Epistaxis. HISTORY OF PRESENT ILLNESS: This is a 22-year-old male, who had an episode of epistaxis on the left four days ago. It was mild in intensity. It was only once and lasted a few second and stopped, but it was gone, it was constant, but he has not had an episode since. There is no congestion, no pain. The bleeding was on the left. PAST MEDICAL HISTORY: As noted in the chart by me. MEDICATIONS: As noted in the chart by me. PHYSICAL EXAMINATION: HEENT: Head atraumatic, normocephalic. FACE: Good facial movements bilaterally. CONSTITUTIONAL: Well felt, well nourished. COMMUNICATION: Communicates well and appropriately. EXTERNAL NOSE: No masses. No lesions. No erythema. No edema. INTERNAL NOSE: Deviated septum. No masses. No lesions. No erythema. No edema. No bleeding. ORAL CAVITY AND OROPHARYNX: No bleeding or postnasal drip. No masses. No lesions. No erythema. No edema. LIPS AND GUMS: No masses. No lesions. No erythema. No edema. NECK: Supple. THYROID: No thyromegaly. No goiter. LYMPH NODES: No lymphadenopathy in the neck. GENERAL: The patient is awake, alert, and oriented x3. ASSESSMENT: 1. Epistaxis, resolved. 2. Deviated septum. PLAN: We will observe for now. Judah Hill MD
[2017-05-01] MEDS: DiphenhydrAMINE 50 mg/ml Inj IVP PRN ×7 (02:25→20:58)
[2017-05-01] MEDS: HYDROmorphone 1 mg/ml ISec IVP PRN ×7 (02:26→20:59)
[2017-05-01] MEDS: Ciprofloxacin 400mg/200ml D5W 400 MG/200 ML BAG IVPB SCH ×2 (06:07→19:47)
[2017-05-01] MEDS: Pantoprazole 40 mg EC Tab PO SCH (09:44)
--- NOTE | 2017-05-01 18:50 | CP.PCM.PN ---
Subjective - Date & Time of Evaluation Date of Evaluation: 05/01/17 Time of Evaluation: 10:20 - Subjective Subjective: clinically same Objective - Vital Signs/Intake and Output Vital Signs (last 24 hours): Temp Pulse Resp BP Pulse Ox 98.3 F 99 H 20 107/71 99 05/01/17 16:28 05/01/17 16:28 05/01/17 16:28 05/01/17 16:28 05/01/17 16:28 Intake and Output: 05/01/17 05/01/17 06:59 18:59 Intake Total 980 460 Output Total 1500 Balance -520 460 - Medications Medications: Current Medications Apixaban (Eliquis) 5 mg PO BID [facility] Last Admin: 04/27/17 09:41 Dose: 5 mg Cyanocobalamin (Vitamin B12 1000 Mcg Tab) 1,000 mcg PO DAILY [facility] Last Admin: 05/01/17 09:44 Dose: 1,000 mcg Diphenhydramine HCl (Benadryl) 25 mg IVP Q3 PRN PRN Reason: Itching / Pruritus Last Admin: 05/01/17 17:46 Dose: 25 mg Ferrous Sulfate (Feosol) 325 mg PO BID [facility] Last Admin: 05/01/17 17:45 Dose: 325 mg Hydromorphone HCl (Dilaudid) 1 mg IVP Q3 PRN PRN Reason: pain 4-7 Last Admin: 05/01/17 17:47 Dose: 1 mg Linezolid (Zyvox 600mg/300ml D5w) 600 mg in 300 mls @ 200 mls/hr IVPB Q12 [facility] Last Admin: 04/30/17 21:39 Dose: 200 mls/hr Ciprofloxacin (Cipro 400mg/200ml Dsw) 400 mg in 200 mls @ 133 mls/hr IVPB Q12H [facility] Last Admin: 05/01/17 06:07 Dose: 133 mls/hr Mesalamine (Delzicol) 800 mg PO DAILY [facility] Last Admin: 05/01/17 09:44 Dose: 800 mg Pantoprazole Sodium (Protonix Ec Tab) 40 mg PO DAILY [facility] Last Admin: 05/01/17 09:44 Dose: 40 mg - Labs Labs: 04/17/17 08:11 04/17/17 08:11 PT 11.3 SECONDS (9.7-12.2) 04/17/17 08:11 INR 1.0 04/17/17 08:11 APTT 26 SECONDS (21-34) 04/17/17 08:11 - Constitutional Appears: Well - Head Exam Head Exam: ATRAUMATIC, NORMAL INSPECTION, NORMOCEPHALIC - Eye Exam Eye Exam: EOMI, Normal appearance, PERRL Pupil Exam: NORMAL ACCOMODATION, PERRL - ENT Exam ENT Exam: Mucous Membranes Moist, Normal Exam - Neck Exam Neck Exam: Full ROM, Normal Inspection. absent: Lymphadenopathy - Respiratory Exam Respiratory Exam: Decreased Breath Sounds - Cardiovascular Exam Cardiovascular Exam: REGULAR RHYTHM, +S1, +S2 - GI/Abdominal Exam GI & Abdominal Exam: Soft, Diminished Bowel Sounds - Rectal Exam Rectal Exam: Deferred Assessment and Plan (1) Abscess Status: Acute (2) Crohn disease Status: Acute (3) Pulmonary embolism Status: Acute (4) Abdominal pain Status: Acute (5) Constipation Status: Acute (6) DVT (deep venous thrombosis) Status: Acute (7) Diarrhea Status: Acute (8) Diarrhea Status: Acute (9) Encounter for wound care Status: Acute (10) Fever Status: Acute (11) Foreign body Status: Acute (12) Intractable abdominal pain Status: Acute (13) Intractable pain Status: Acute (14) Prophylactic measure Status: Acute (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
[2017-05-01] MEDS: Linezolid 600 mg in D5W 300 ml 600 MG/300 ML BAG IVPB SCH (21:04)
--- NOTE | 2017-05-01 21:33 | CP.PCM.PN ---
Subjective - Date & Time of Evaluation Date of Evaluation: 05/01/17 Time of Evaluation: 04:00 - Subjective Subjective: dictated Objective - Vital Signs/Intake and Output Vital Signs (last 24 hours): Temp Pulse Resp BP Pulse Ox 98.3 F 99 H 20 107/71 99 05/01/17 16:28 05/01/17 16:28 05/01/17 16:28 05/01/17 16:28 05/01/17 16:28 Intake and Output: 05/01/17 05/02/17 18:59 06:59 Intake Total 460 Balance 460 - Medications Medications: Current Medications Apixaban (Eliquis) 5 mg PO BID [facility] Last Admin: 04/27/17 09:41 Dose: 5 mg Cyanocobalamin (Vitamin B12 1000 Mcg Tab) 1,000 mcg PO DAILY [facility] Last Admin: 05/01/17 09:44 Dose: 1,000 mcg Diphenhydramine HCl (Benadryl) 25 mg IVP Q3 PRN PRN Reason: Itching / Pruritus Last Admin: 05/01/17 20:58 Dose: 25 mg Ferrous Sulfate (Feosol) 325 mg PO BID [facility] Last Admin: 05/01/17 17:45 Dose: 325 mg Hydromorphone HCl (Dilaudid) 1 mg IVP Q3 PRN PRN Reason: pain 4-7 Last Admin: 05/01/17 20:59 Dose: 1 mg Linezolid (Zyvox 600mg/300ml D5w) 600 mg in 300 mls @ 200 mls/hr IVPB Q12 [facility] Last Admin: 05/01/17 21:04 Dose: 200 mls/hr Ciprofloxacin (Cipro 400mg/200ml Dsw) 400 mg in 200 mls @ 133 mls/hr IVPB Q12H [facility] Last Admin: 05/01/17 19:47 Dose: 133 mls/hr Mesalamine (Delzicol) 800 mg PO DAILY [facility] Last Admin: 05/01/17 09:44 Dose: 800 mg Pantoprazole Sodium (Protonix Ec Tab) 40 mg PO DAILY [facility] Last Admin: 05/01/17 09:44 Dose: 40 mg - Labs Labs: 04/17/17 08:11 04/17/17 08:11 PT 11.3 SECONDS (9.7-12.2) 04/17/17 08:11 INR 1.0 04/17/17 08:11 APTT 26 SECONDS (21-34) 04/17/17 08:11
[2017-05-02] MEDS: DiphenhydrAMINE 50 mg/ml Inj IVP PRN ×7 (00:08→21:31)
[2017-05-02] MEDS: HYDROmorphone 1 mg/ml ISec IVP PRN ×5 (00:08→15:22)
--- NOTE | 2017-05-02 00:08 | PN ---
DATE: 05/01/2017 SUBJECTIVE: He remains with abscesses and excoriation at the gluteal fold. The patient also complains of diarrhea at this point. He has been on multiple weeks of IV antibiotics and I am suspicious that he has Hidradenitis suppurativa and will also get immunoglobulins done and will order. He needs to be followed by the surgery. He also is developing some induration in the right axilla. I hope it is not another abscess, and since these abscesses are developing in the folds, it will be important to rule out Hidradenitis suppurativa. At this time, we will order a stool for C. diff. Since he is having abscesses on antibiotics, I do not want to develop a super bug, which will be a problem. It is becoming difficult to understand why he has been having these. We will get a test done and will also have serum immunoglobulins sent over and also stool for C. diff. Santosh Daniel MD
[2017-05-02] MEDS: Ciprofloxacin 400mg/200ml D5W 400 MG/200 ML BAG IVPB SCH ×2 (06:15→18:33)
[2017-05-02] MEDS: Pantoprazole 40 mg EC Tab PO SCH (09:20)
[2017-05-02] MEDS: Linezolid 600 mg in D5W 300 ml 600 MG/300 ML BAG IVPB SCH ×3 (10:55→21:33)
--- NOTE | 2017-05-02 15:38 | CP.PCM.PN ---
Subjective - Date & Time of Evaluation Date of Evaluation: 05/02/17 Time of Evaluation: 10:20 - Subjective Subjective: clinically same Objective - Vital Signs/Intake and Output Vital Signs (last 24 hours): Temp Pulse Resp BP Pulse Ox 98.3 F 91 H 20 103/70 100 05/02/17 07:40 05/02/17 07:40 05/02/17 07:40 05/02/17 07:40 05/02/17 07:40 Intake and Output: 05/02/17 05/02/17 06:59 18:59 Intake Total 980 Output Total 1750 Balance -770 - Medications Medications: Current Medications Apixaban (Eliquis) 5 mg PO BID [facility] Last Admin: 04/27/17 09:41 Dose: 5 mg Cyanocobalamin (Vitamin B12 1000 Mcg Tab) 1,000 mcg PO DAILY [facility] Last Admin: 05/02/17 09:20 Dose: 1,000 mcg Diphenhydramine HCl (Benadryl) 25 mg IVP Q3 PRN PRN Reason: Itching / Pruritus Last Admin: 05/02/17 15:22 Dose: 25 mg Ferrous Sulfate (Feosol) 325 mg PO BID [facility] Last Admin: 05/02/17 09:20 Dose: 325 mg Hydromorphone HCl (Dilaudid) 1 mg IVP Q3 PRN PRN Reason: pain 4-7 Last Admin: 05/02/17 15:22 Dose: 1 mg Linezolid (Zyvox 600mg/300ml D5w) 600 mg in 300 mls @ 200 mls/hr IVPB Q12 [facility] Last Admin: 05/02/17 10:59 Dose: 200 mls/hr Ciprofloxacin (Cipro 400mg/200ml Dsw) 400 mg in 200 mls @ 133 mls/hr IVPB Q12H [facility] Last Admin: 05/02/17 06:15 Dose: 133 mls/hr Mesalamine (Delzicol) 800 mg PO DAILY [facility] Last Admin: 05/02/17 09:19 Dose: 800 mg Pantoprazole Sodium (Protonix Ec Tab) 40 mg PO DAILY [facility] Last Admin: 05/02/17 09:20 Dose: 40 mg - Labs Labs: 04/17/17 08:11 04/17/17 08:11 PT 11.3 SECONDS (9.7-12.2) 04/17/17 08:11 INR 1.0 04/17/17 08:11 APTT 26 SECONDS (21-34) 04/17/17 08:11 - Constitutional Appears: Well - Head Exam Head Exam: ATRAUMATIC, NORMAL INSPECTION, NORMOCEPHALIC - Eye Exam Eye Exam: EOMI, Normal appearance, PERRL Pupil Exam: NORMAL ACCOMODATION, PERRL - ENT Exam ENT Exam: Mucous Membranes Moist, Normal Exam - Neck Exam Neck Exam: Full ROM, Normal Inspection. absent: Lymphadenopathy - Respiratory Exam Respiratory Exam: Decreased Breath Sounds - Cardiovascular Exam Cardiovascular Exam: REGULAR RHYTHM, +S1, +S2 - GI/Abdominal Exam GI & Abdominal Exam: Soft, Diminished Bowel Sounds - Rectal Exam Rectal Exam: Deferred Assessment and Plan (1) Abscess Status: Acute (2) Crohn disease Status: Acute (3) Pulmonary embolism Status: Acute (4) Abdominal pain Status: Acute (5) Constipation Status: Acute (6) DVT (deep venous thrombosis) Status: Acute (7) Diarrhea Status: Acute (8) Diarrhea Status: Acute (9) Encounter for wound care Status: Acute (10) Fever Status: Acute (11) Foreign body Status: Acute (12) Intractable abdominal pain Status: Acute (13) Intractable pain Status: Acute (14) Prophylactic measure Status: Acute (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
[2017-05-02] MEDS: HYDROmorphone 0.5 mg/0.5 ml ISec IVP PRN ×2 (18:34→21:32)
[2017-05-03] MEDS: DiphenhydrAMINE 50 mg/ml Inj IVP PRN ×7 (01:15→21:33)
[2017-05-03] MEDS: HYDROmorphone 0.5 mg/0.5 ml ISec IVP PRN ×7 (01:15→21:34)
[2017-05-03] MEDS: Ciprofloxacin 400mg/200ml D5W 400 MG/200 ML BAG IVPB SCH ×2 (07:02→19:24)
--- NOTE | 2017-05-03 10:59 | CP.PCM.PN ---
Subjective - Date & Time of Evaluation Date of Evaluation: 05/03/17 Time of Evaluation: 09:00 - Subjective Subjective: clinically same Objective - Vital Signs/Intake and Output Vital Signs (last 24 hours): Temp Pulse Resp BP Pulse Ox 98.5 F 113 H 18 105/68 98 05/03/17 07:25 05/03/17 07:25 05/03/17 07:25 05/03/17 07:25 05/03/17 07:25 Intake and Output: 05/03/17 05/03/17 06:59 18:59 Output Total 300 Balance -300 - Medications Medications: Current Medications Apixaban (Eliquis) 5 mg PO BID [facility] Last Admin: 04/27/17 09:41 Dose: 5 mg Cyanocobalamin (Vitamin B12 1000 Mcg Tab) 1,000 mcg PO DAILY [facility] Last Admin: 05/02/17 09:20 Dose: 1,000 mcg Diphenhydramine HCl (Benadryl) 25 mg IVP Q3 PRN PRN Reason: Itching / Pruritus Last Admin: 05/03/17 08:15 Dose: 25 mg Ferrous Sulfate (Feosol) 325 mg PO BID [facility] Last Admin: 05/02/17 17:08 Dose: 325 mg Hydromorphone HCl (Dilaudid) 1 mg IVP Q3 PRN PRN Reason: pain 4-7 Last Admin: 05/03/17 08:15 Dose: 1 mg Linezolid (Zyvox 600mg/300ml D5w) 600 mg in 300 mls @ 200 mls/hr IVPB Q12 [facility] Last Admin: 05/02/17 21:33 Dose: 200 mls/hr Ciprofloxacin (Cipro 400mg/200ml Dsw) 400 mg in 200 mls @ 133 mls/hr IVPB Q12H [facility] Last Admin: 05/03/17 07:02 Dose: 133 mls/hr Mesalamine (Delzicol) 800 mg PO DAILY [facility] Last Admin: 05/02/17 09:19 Dose: 800 mg Pantoprazole Sodium (Protonix Ec Tab) 40 mg PO DAILY [facility] Last Admin: 05/02/17 09:20 Dose: 40 mg - Labs Labs: 04/17/17 08:11 04/17/17 08:11 PT 11.3 SECONDS (9.7-12.2) 04/17/17 08:11 INR 1.0 04/17/17 08:11 APTT 26 SECONDS (21-34) 04/17/17 08:11 - Constitutional Appears: Well - Head Exam Head Exam: ATRAUMATIC, NORMAL INSPECTION, NORMOCEPHALIC - Eye Exam Eye Exam: EOMI, Normal appearance, PERRL Pupil Exam: NORMAL ACCOMODATION, PERRL - ENT Exam ENT Exam: Mucous Membranes Moist, Normal Exam - Neck Exam Neck Exam: Full ROM, Normal Inspection. absent: Lymphadenopathy - Respiratory Exam Respiratory Exam: Decreased Breath Sounds - Cardiovascular Exam Cardiovascular Exam: REGULAR RHYTHM, +S1, +S2 - GI/Abdominal Exam GI & Abdominal Exam: Soft, Diminished Bowel Sounds - Rectal Exam Rectal Exam: Deferred Assessment and Plan (1) Abscess Status: Acute (2) Crohn disease Status: Acute (3) Pulmonary embolism Status: Acute (4) Abdominal pain Status: Acute (5) Constipation Status: Acute (6) DVT (deep venous thrombosis) Status: Acute (7) Diarrhea Status: Acute (8) Diarrhea Status: Acute (9) Encounter for wound care Status: Acute (10) Fever Status: Acute (11) Foreign body Status: Acute (12) Intractable abdominal pain Status: Acute (13) Intractable pain Status: Acute (14) Prophylactic measure Status: Acute (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
[2017-05-03] MEDS: Pantoprazole 40 mg EC Tab PO SCH (11:03)
[2017-05-03] MEDS: Linezolid 600 mg in D5W 300 ml 600 MG/300 ML BAG IVPB SCH ×2 (11:09→21:35)
[2017-05-04] MEDS: HYDROmorphone 0.5 mg/0.5 ml ISec IVP PRN ×7 (00:46→21:49)
[2017-05-04] MEDS: DiphenhydrAMINE 50 mg/ml Inj IVP PRN ×7 (00:47→21:49)
[2017-05-04] MEDS: Ciprofloxacin 400mg/200ml D5W 400 MG/200 ML BAG IVPB SCH ×2 (06:45→18:39)
[2017-05-04 08:20] LABS: IMMUNOGLOBULIN G 1095.3 mg/dL (700.0-1600.0); IMMUNOGLOBULIN M 122.7 mg/dL (40.0-230.0)
[2017-05-04 08:21] LABS: IMMUNOGLOBULIN A 413.6 mg/dL (70.0-400.0)
[2017-05-04] MEDS: Pantoprazole 40 mg EC Tab PO SCH (10:50)
--- NOTE | 2017-05-04 11:48 | CP.PCM.PN ---
Subjective - Date & Time of Evaluation Date of Evaluation: 05/04/17 Time of Evaluation: 11:47 - Subjective Subjective: 22 Y/O MALE SEEN AND EXAMINED, RESP EASY AND UNLABORED. NAD Objective - Vital Signs/Intake and Output Vital Signs (last 24 hours): Temp Pulse Resp BP Pulse Ox 98.2 F 70 20 109/77 100 05/04/17 07:40 05/04/17 07:40 05/04/17 07:40 05/04/17 07:40 05/04/17 07:40 Intake and Output: 05/04/17 05/04/17 06:59 18:59 Output Total 400 Balance -400 - Medications Medications: Current Medications Apixaban (Eliquis) 5 mg PO BID [facility] Last Admin: 04/27/17 09:41 Dose: 5 mg Cyanocobalamin (Vitamin B12 1000 Mcg Tab) 1,000 mcg PO DAILY [facility] Last Admin: 05/04/17 11:26 Dose: 1,000 mcg Diphenhydramine HCl (Benadryl) 25 mg IVP Q3 PRN PRN Reason: Itching / Pruritus Last Admin: 05/04/17 11:27 Dose: 25 mg Ferrous Sulfate (Feosol) 325 mg PO BID [facility] Last Admin: 05/04/17 10:50 Dose: 325 mg Hydromorphone HCl (Dilaudid) 1 mg IVP Q3 PRN PRN Reason: pain 4-7 Last Admin: 05/04/17 11:26 Dose: 1 mg Linezolid (Zyvox 600mg/300ml D5w) 600 mg in 300 mls @ 200 mls/hr IVPB Q12 [facility] Last Admin: 05/03/17 21:35 Dose: 200 mls/hr Ciprofloxacin (Cipro 400mg/200ml Dsw) 400 mg in 200 mls @ 133 mls/hr IVPB Q12H [facility] Last Admin: 05/04/17 06:45 Dose: 133 mls/hr Mesalamine (Delzicol) 800 mg PO DAILY [facility] Last Admin: 05/04/17 10:50 Dose: 800 mg Pantoprazole Sodium (Protonix Ec Tab) 40 mg PO DAILY [facility] Last Admin: 05/04/17 10:50 Dose: 40 mg - Labs Labs: 04/17/17 08:11 04/17/17 08:11 PT 11.3 SECONDS (9.7-12.2) 04/17/17 08:11 INR 1.0 04/17/17 08:11 APTT 26 SECONDS (21-34) 04/17/17 08:11 Assessment and Plan - Assessment and Plan (Free Text) Plan: PT SEEN AND EXAMINED TODAY, NO COMPLAINTS OFFERED, RESP EASY AND UNLABORED, NAD CONSENT FOR NEW PICC LINE INSERTION OBTAINED BY ME, WITNESSED BY ASAF PATEL RISK AND BENEFITS EXPLAINED TO PT, VERBALIZE UNDERSTANDING
--- NOTE | 2017-05-04 14:41 | RAD ---
Chest x-ray single frontal view History: PICC line placement. Comparison: 03/22/2017 Findings: Left PICC line with tip extending to the proximal right SVC. No focal infiltrate or effusion. No evidence of postprocedure pneumothorax. Heart size within normal limits. Impression: Left PICC line with tip extending to the proximal right SVC. No focal infiltrate or effusion. No evidence of postprocedure pneumothorax.
[2017-05-04] MEDS: Linezolid 600 mg in D5W 300 ml 600 MG/300 ML BAG IVPB SCH ×3 (15:38→21:13)
--- NOTE | 2017-05-04 21:18 | CP.PCM.PN ---
Subjective - Date & Time of Evaluation Date of Evaluation: 05/04/17 Time of Evaluation: 05:00 - Subjective Subjective: dictated Objective - Vital Signs/Intake and Output Vital Signs (last 24 hours): Temp Pulse Resp BP Pulse Ox 98.1 F 116 H 20 112/67 100 05/04/17 15:00 05/04/17 15:00 05/04/17 15:00 05/04/17 15:00 05/04/17 15:00 - Medications Medications: Current Medications Apixaban (Eliquis) 5 mg PO BID [facility] Last Admin: 04/27/17 09:41 Dose: 5 mg Cyanocobalamin (Vitamin B12 1000 Mcg Tab) 1,000 mcg PO DAILY [facility] Last Admin: 05/04/17 11:26 Dose: 1,000 mcg Diphenhydramine HCl (Benadryl) 25 mg IVP Q3 PRN PRN Reason: Itching / Pruritus Last Admin: 05/04/17 18:40 Dose: 25 mg Ferrous Sulfate (Feosol) 325 mg PO BID [facility] Last Admin: 05/04/17 18:40 Dose: 325 mg Hydromorphone HCl (Dilaudid) 1 mg IVP Q3 PRN PRN Reason: pain 4-7 Last Admin: 05/04/17 18:40 Dose: 1 mg Linezolid (Zyvox 600mg/300ml D5w) 600 mg in 300 mls @ 200 mls/hr IVPB Q12 [facility] Last Admin: 05/04/17 21:13 Dose: 200 mls/hr Ciprofloxacin (Cipro 400mg/200ml Dsw) 400 mg in 200 mls @ 133 mls/hr IVPB Q12H [facility] Last Admin: 05/04/17 18:39 Dose: 133 mls/hr Mesalamine (Delzicol) 800 mg PO DAILY [facility] Last Admin: 05/04/17 10:50 Dose: 800 mg Pantoprazole Sodium (Protonix Ec Tab) 40 mg PO DAILY [facility] Last Admin: 05/04/17 10:50 Dose: 40 mg - Labs Labs: 04/17/17 08:11 04/17/17 08:11 PT 11.3 SECONDS (9.7-12.2) 04/17/17 08:11 INR 1.0 04/17/17 08:11 APTT 26 SECONDS (21-34) 04/17/17 08:11
--- NOTE | 2017-05-04 21:43 | CP.PCM.PN ---
Subjective - Date & Time of Evaluation Date of Evaluation: 05/04/17 Time of Evaluation: 11:00 - Subjective Subjective: clinically same Objective - Vital Signs/Intake and Output Vital Signs (last 24 hours): Temp Pulse Resp BP Pulse Ox 98.1 F 116 H 20 112/67 100 05/04/17 15:00 05/04/17 15:00 05/04/17 15:00 05/04/17 15:00 05/04/17 15:00 - Medications Medications: Current Medications Apixaban (Eliquis) 5 mg PO BID [facility] Last Admin: 04/27/17 09:41 Dose: 5 mg Cyanocobalamin (Vitamin B12 1000 Mcg Tab) 1,000 mcg PO DAILY [facility] Last Admin: 05/04/17 11:26 Dose: 1,000 mcg Diphenhydramine HCl (Benadryl) 25 mg IVP Q3 PRN PRN Reason: Itching / Pruritus Last Admin: 05/04/17 18:40 Dose: 25 mg Ferrous Sulfate (Feosol) 325 mg PO BID [facility] Last Admin: 05/04/17 18:40 Dose: 325 mg Hydromorphone HCl (Dilaudid) 1 mg IVP Q3 PRN PRN Reason: pain 4-7 Last Admin: 05/04/17 18:40 Dose: 1 mg Linezolid (Zyvox 600mg/300ml D5w) 600 mg in 300 mls @ 200 mls/hr IVPB Q12 [facility] Last Admin: 05/04/17 21:13 Dose: 200 mls/hr Ciprofloxacin (Cipro 400mg/200ml Dsw) 400 mg in 200 mls @ 133 mls/hr IVPB Q12H [facility] Last Admin: 05/04/17 18:39 Dose: 133 mls/hr Mesalamine (Delzicol) 800 mg PO DAILY [facility] Last Admin: 05/04/17 10:50 Dose: 800 mg Pantoprazole Sodium (Protonix Ec Tab) 40 mg PO DAILY [facility] Last Admin: 05/04/17 10:50 Dose: 40 mg - Labs Labs: 04/17/17 08:11 04/17/17 08:11 PT 11.3 SECONDS (9.7-12.2) 04/17/17 08:11 INR 1.0 04/17/17 08:11 APTT 26 SECONDS (21-34) 04/17/17 08:11 - Constitutional Appears: Well - Head Exam Head Exam: ATRAUMATIC, NORMAL INSPECTION, NORMOCEPHALIC - Eye Exam Eye Exam: EOMI, Normal appearance, PERRL Pupil Exam: NORMAL ACCOMODATION, PERRL - ENT Exam ENT Exam: Mucous Membranes Moist, Normal Exam - Neck Exam Neck Exam: Full ROM, Normal Inspection. absent: Lymphadenopathy - Respiratory Exam Respiratory Exam: Decreased Breath Sounds - Cardiovascular Exam Cardiovascular Exam: REGULAR RHYTHM, +S1, +S2 - GI/Abdominal Exam GI & Abdominal Exam: Soft, Diminished Bowel Sounds - Rectal Exam Rectal Exam: Deferred Assessment and Plan (1) Abscess Status: Acute (2) Crohn disease Status: Acute (3) Pulmonary embolism Status: Acute (4) Abdominal pain Status: Acute (5) Constipation Status: Acute (6) DVT (deep venous thrombosis) Status: Acute (7) Diarrhea Status: Acute (8) Diarrhea Status: Acute (9) Encounter for wound care Status: Acute (10) Fever Status: Acute (11) Foreign body Status: Acute (12) Intractable abdominal pain Status: Acute (13) Intractable pain Status: Acute (14) Prophylactic measure Status: Acute (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
[2017-05-05] MEDS: HYDROmorphone 0.5 mg/0.5 ml ISec IVP PRN ×7 (00:54→21:17)
[2017-05-05] MEDS: DiphenhydrAMINE 50 mg/ml Inj IVP PRN ×7 (00:54→21:15)
--- NOTE | 2017-05-05 02:59 | PN ---
SUBJECTIVE: The patient states that he has been having this abscess developing in the right axilla. We will get Dr. Taylor to look into it. He also said that tomorrow they are going to do an I and D. If that is true, his Eliquis is on hold. So, I want to be sure if that is happening, and otherwise he is stable. PHYSICAL EXAMINATION LUNGS: Clear. HEART: S1 and S2 regular. ABDOMEN: Soft, nontender. His PICC line was moved from the right arm to the left arm now, and he has a colostomy bag. EXTREMITIES: Remain with no edema. He does have perineal wound in some area which appears like granulation tissue. I am not sure if this is an abscess, while I will wait for the surgeon to give me his recommendations and this patient has been long here, and we will repeat the labs tomorrow and since he keeps on having these abscesses and in spite of being on the antibiotics, I am thinking of getting him off the IV antibiotics, and as they are not helping anyway, but needs recommendations for this right axillary area, it maybe hidradenitis suppurativa, I am not too sure about it. Santosh Daniel MD
[2017-05-05] MEDS: Ciprofloxacin 400mg/200ml D5W 400 MG/200 ML BAG IVPB SCH ×2 (06:11→18:24)
[2017-05-05 07:00] LABS: BASO # 0.1 K/uL (0.0-0.2); BASO % 0.7 % (0.0-2.0); EOS # 0.7 K/uL (0.0-0.7); EOS % 8.7 % (0.0-4.0); HEMATOCRIT 31.2 % (35.0-51.0); LYMPH # 2.9 K/uL (1.0-4.3); LYMPH % 36.1 % (20.0-40.0); MEAN CELL VOLUME 70.3 fL (80.0-94.0); MEAN CORPUSCULAR HEMOGLOBIN 22.4 pg (27.0-31.0); MEAN CORPUSCULAR HGB CONC 31.9 g/dL (33.0-37.0); MEAN PLATELET VOLUME 7.1 fL (7.2-11.7); MONO # 0.5 K/uL (0.0-0.8); MONO % 5.7 % (0.0-10.0); RED CELL DISTRIBUTION WIDTH 18.6 % (11.5-14.5); WHITE BLOOD COUNT 8.1 K/uL (4.8-10.8)
[2017-05-05 07:27] LABS: CHLORIDE 101 mmol/L (98-107); POTASSIUM 4.2 mmol/L (3.6-5.2); SODIUM 140 mmol/L (132-148)
[2017-05-05 07:29] LABS: BILIRUBIN,TOTAL 0.4 mg/dL (0.2-1.3); GFR AFRICAN-AMERICAN > 60
[2017-05-05 07:30] LABS: ALB/GLOB RATIO 1.1 (1.0-2.1); ALKALINE PHOSPHATASE 100 U/L (38-126); ALT/SGPT 28 U/L (21-72); AST/SGOT 20 U/L (17-59); BLOOD UREA NITROGEN 8 mg/dL (9-20); CALCIUM 8.5 mg/dl (8.6-10.4); CARBON DIOXIDE 27 mmol/L (22-30); GLUCOSE,RANDOM 81 mg/dL (75-110); TOTAL PROTEIN 7.4 g/dL (6.3-8.3)
[2017-05-05] MEDS: Pantoprazole 40 mg EC Tab PO SCH (11:22)
[2017-05-05] MEDS: Linezolid 600 mg in D5W 300 ml 600 MG/300 ML BAG IVPB SCH ×2 (11:24→21:23)
[2017-05-05 16:21] VITALS: RESP 20
--- NOTE | 2017-05-05 20:18 | CP.PCM.PN ---
Subjective - Date & Time of Evaluation Date of Evaluation: 05/05/17 Time of Evaluation: 03:00 - Subjective Subjective: dictated Objective - Vital Signs/Intake and Output Vital Signs (last 24 hours): Temp Pulse Resp BP Pulse Ox 98.6 F 111 H 20 114/73 96 05/05/17 15:20 05/05/17 18:10 05/05/17 18:10 05/05/17 18:10 05/05/17 18:10 Intake and Output: 05/05/17 05/06/17 18:59 06:59 Intake Total 400 Balance 400 - Medications Medications: Current Medications Apixaban (Eliquis) 5 mg PO BID [facility] Last Admin: 04/27/17 09:41 Dose: 5 mg Cyanocobalamin (Vitamin B12 1000 Mcg Tab) 1,000 mcg PO DAILY [facility] Last Admin: 05/05/17 11:22 Dose: 1,000 mcg Diphenhydramine HCl (Benadryl) 25 mg IVP Q3 PRN PRN Reason: Itching / Pruritus Last Admin: 05/05/17 18:16 Dose: 25 mg Ferrous Sulfate (Feosol) 325 mg PO BID [facility] Last Admin: 05/05/17 18:17 Dose: 325 mg Hydromorphone HCl (Dilaudid) 1 mg IVP Q3 PRN PRN Reason: pain 4-7 Last Admin: 05/05/17 18:15 Dose: 1 mg Linezolid (Zyvox 600mg/300ml D5w) 600 mg in 300 mls @ 200 mls/hr IVPB Q12 [facility] Last Admin: 05/05/17 11:24 Dose: 200 mls/hr Ciprofloxacin (Cipro 400mg/200ml Dsw) 400 mg in 200 mls @ 133 mls/hr IVPB Q12H [facility] Last Admin: 05/05/17 18:24 Dose: 133 mls/hr Mesalamine (Delzicol) 800 mg PO DAILY [facility] Last Admin: 05/05/17 11:22 Dose: 800 mg Pantoprazole Sodium (Protonix Ec Tab) 40 mg PO DAILY [facility] Last Admin: 05/05/17 11:22 Dose: 40 mg - Labs Labs: 05/05/17 06:45 05/05/17 06:45 PT 11.3 SECONDS (9.7-12.2) 04/17/17 08:11 INR 1.0 04/17/17 08:11 APTT 26 SECONDS (21-34) 04/17/17 08:11
--- NOTE | 2017-05-05 20:59 | PN ---
SUBJECTIVE: The patient complains of right axillary pain, I looked up, he does have some induration, but there is nothing to drain, I am told by the surgical specialist and he is afebrile and I also looked up his perianal area and he does have excoriation, but it seems that there is nothing to be drained at this time. PHYSICAL EXAMINATION VITAL SIGNS: T-max is 98.6, pulse is 110, blood pressure 114/73, respirations are 20. HEENT: Head is atraumatic and normocephalic. NECK: Supple. LUNGS: Clear. HEART: S1 and S2 is regular. ABDOMEN: Soft, nontender. No guarding, no rigidity present. Has a colostomy bag and has excoriation. EXTREMITIES: No edema, clubbing or cyanosis. He has been on antibiotics and is not running any fever. He does have a PICC line on the left side now instead of the right side. He does have Crohn's disease and he is status post colostomy. He remains on these medications at this time and he is on opioid because of pain and I think at this time, I told him that he needs to go home and I would give him oral antibiotic as the IV or any antibiotic is not helping his wound to heal. He probably needs to take good nutrition, multivitamins, zinc and B12 and needs to follow with his primary and should go home tomorrow if cleared by everybody. We will follow. Santosh Daniel MD
--- NOTE | 2017-05-05 21:14 | CP.PCM.PN ---
Subjective - Date & Time of Evaluation Date of Evaluation: 05/05/17 Time of Evaluation: 12:20 - Subjective Subjective: clinically same Objective - Vital Signs/Intake and Output Vital Signs (last 24 hours): Temp Pulse Resp BP Pulse Ox 98.6 F 111 H 20 114/73 96 05/05/17 15:20 05/05/17 18:10 05/05/17 18:10 05/05/17 18:10 05/05/17 18:10 Intake and Output: 05/05/17 05/06/17 18:59 06:59 Intake Total 400 Balance 400 - Medications Medications: Current Medications Apixaban (Eliquis) 5 mg PO BID [facility] Last Admin: 04/27/17 09:41 Dose: 5 mg Cyanocobalamin (Vitamin B12 1000 Mcg Tab) 1,000 mcg PO DAILY [facility] Last Admin: 05/05/17 11:22 Dose: 1,000 mcg Diphenhydramine HCl (Benadryl) 25 mg IVP Q3 PRN PRN Reason: Itching / Pruritus Last Admin: 05/05/17 18:16 Dose: 25 mg Ferrous Sulfate (Feosol) 325 mg PO BID [facility] Last Admin: 05/05/17 18:17 Dose: 325 mg Hydromorphone HCl (Dilaudid) 1 mg IVP Q3 PRN PRN Reason: pain 4-7 Last Admin: 05/05/17 18:15 Dose: 1 mg Linezolid (Zyvox 600mg/300ml D5w) 600 mg in 300 mls @ 200 mls/hr IVPB Q12 [facility] Last Admin: 05/05/17 11:24 Dose: 200 mls/hr Ciprofloxacin (Cipro 400mg/200ml Dsw) 400 mg in 200 mls @ 133 mls/hr IVPB Q12H [facility] Last Admin: 05/05/17 18:24 Dose: 133 mls/hr Mesalamine (Delzicol) 800 mg PO DAILY [facility] Last Admin: 05/05/17 11:22 Dose: 800 mg Pantoprazole Sodium (Protonix Ec Tab) 40 mg PO DAILY [facility] Last Admin: 05/05/17 11:22 Dose: 40 mg - Labs Labs: 05/05/17 06:45 05/05/17 06:45 PT 11.3 SECONDS (9.7-12.2) 04/17/17 08:11 INR 1.0 04/17/17 08:11 APTT 26 SECONDS (21-34) 04/17/17 08:11 Assessment and Plan (1) Abscess Status: Acute (2) Crohn disease Status: Acute (3) Pulmonary embolism Status: Acute (4) Abdominal pain Status: Acute (5) Constipation Status: Acute (6) DVT (deep venous thrombosis) Status: Acute (7) Diarrhea Status: Acute (8) Diarrhea Status: Acute (9) Encounter for wound care Status: Acute (10) Fever Status: Acute (11) Foreign body Status: Acute (12) Intractable abdominal pain Status: Acute (13) Intractable pain Status: Acute (14) Prophylactic measure Status: Acute (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
[2017-05-06] MEDS: HYDROmorphone 0.5 mg/0.5 ml ISec IVP PRN ×6 (00:19→16:52)
[2017-05-06] MEDS: DiphenhydrAMINE 50 mg/ml Inj IVP PRN ×6 (00:19→16:51)
[2017-05-06] MEDS: Ciprofloxacin 400mg/200ml D5W 400 MG/200 ML BAG IVPB SCH ×2 (06:48→18:00)
[2017-05-06] MEDS: Pantoprazole 40 mg EC Tab PO SCH (10:07)
[2017-05-06] MEDS: Linezolid 600 mg in D5W 300 ml 600 MG/300 ML BAG IVPB SCH (10:18)
--- NOTE | 2017-05-06 12:04 | CP.PCM.PN ---
Subjective - Date & Time of Evaluation Date of Evaluation: 05/06/17 Time of Evaluation: 12:02 - Subjective Subjective: 22 Y/O MALE SEEN AND EXAMINED TODAY, DENIES ANY PAIN, SOB, RESP EASY AND UNLABORED. NAD. Objective - Vital Signs/Intake and Output Vital Signs (last 24 hours): Temp Pulse Resp BP Pulse Ox 98.1 F 95 H 20 113/78 99 05/06/17 07:35 05/06/17 07:35 05/06/17 07:35 05/06/17 07:35 05/06/17 07:35 Intake and Output: 05/06/17 05/06/17 06:59 18:59 Intake Total 900 Output Total 900 Balance 0 - Medications Medications: Current Medications Apixaban (Eliquis) 5 mg PO BID [facility] Last Admin: 04/27/17 09:41 Dose: 5 mg Cyanocobalamin (Vitamin B12 1000 Mcg Tab) 1,000 mcg PO DAILY [facility] Last Admin: 05/06/17 10:10 Dose: 1,000 mcg Diphenhydramine HCl (Benadryl) 25 mg IVP Q3 PRN PRN Reason: Itching / Pruritus Last Admin: 05/06/17 10:07 Dose: 25 mg Ferrous Sulfate (Feosol) 325 mg PO BID [facility] Last Admin: 05/06/17 10:06 Dose: 325 mg Hydromorphone HCl (Dilaudid) 1 mg IVP Q3 PRN PRN Reason: pain 4-7 Last Admin: 05/06/17 10:07 Dose: 1 mg Linezolid (Zyvox 600mg/300ml D5w) 600 mg in 300 mls @ 200 mls/hr IVPB Q12 [facility] Last Admin: 05/06/17 10:18 Dose: 200 mls/hr Ciprofloxacin (Cipro 400mg/200ml Dsw) 400 mg in 200 mls @ 133 mls/hr IVPB Q12H [facility] Last Admin: 05/06/17 06:48 Dose: 133 mls/hr Mesalamine (Delzicol) 800 mg PO DAILY [facility] Last Admin: 05/06/17 10:10 Dose: 800 mg Pantoprazole Sodium (Protonix Ec Tab) 40 mg PO DAILY [facility] Last Admin: 05/06/17 10:07 Dose: 40 mg - Labs Labs: 05/05/17 06:45 05/05/17 06:45 PT 11.3 SECONDS (9.7-12.2) 04/17/17 08:11 INR 1.0 04/17/17 08:11 APTT 26 SECONDS (21-34) 04/17/17 08:11 Assessment and Plan - Assessment and Plan (Free Text) Plan: 22 Y/O MALE WITH PMHX CROHN'S DISEASE, FREQUENT ABSCESSES, PE ADMITTED FOR PERINEAL ABSCESS INCISION AND DRAINAGE OF LEFT GLUTEAL COLLECTION, EXCISIONAL DEBRIDEMENT OF THE PERINEAL WOUND DONE PT CLEARED FOR D/C BY [facility] RX GIVEN TO CM FOR HOME CARE BACTRIM DS 1 TAB PO BID FOR 10 DASY, MVT, VIT C- PER DR SMITH PT EDUCATED ON MAINTAIN GOOD HYGIENE, FREQUENT SITZ BATH AND SHOWERS CONTINUE HOME MEDS F/U W/DR WALKER, DR SMITH, DR WEBB
[2017-05-06 17:31] VITALS: BP 106/71; PULSE 110; TEMP 98.5; O2SAT 98
--- NOTE | 2017-05-06 18:08 | CP.PCM.PN ---
Subjective - Date & Time of Evaluation Date of Evaluation: 05/06/17 Time of Evaluation: 12:00 - Subjective Subjective: dictated Objective - Vital Signs/Intake and Output Vital Signs (last 24 hours): Temp Pulse Resp BP Pulse Ox 98.5 F 110 H 20 106/71 98 05/06/17 15:40 05/06/17 15:40 05/06/17 15:40 05/06/17 15:40 05/06/17 15:40 Intake and Output: 05/06/17 05/06/17 06:59 18:59 Intake Total 900 Output Total 900 Balance 0 - Medications Medications: Current Medications Apixaban (Eliquis) 5 mg PO BID [facility] Last Admin: 04/27/17 09:41 Dose: 5 mg Cyanocobalamin (Vitamin B12 1000 Mcg Tab) 1,000 mcg PO DAILY [facility] Last Admin: 05/06/17 10:10 Dose: 1,000 mcg Diphenhydramine HCl (Benadryl) 25 mg IVP Q3 PRN PRN Reason: Itching / Pruritus Last Admin: 05/06/17 16:51 Dose: 25 mg Ferrous Sulfate (Feosol) 325 mg PO BID [facility] Last Admin: 05/06/17 17:47 Dose: 325 mg Hydromorphone HCl (Dilaudid) 1 mg IVP Q3 PRN PRN Reason: pain 4-7 Last Admin: 05/06/17 16:52 Dose: 1 mg Linezolid (Zyvox 600mg/300ml D5w) 600 mg in 300 mls @ 200 mls/hr IVPB Q12 [facility] Last Admin: 05/06/17 10:18 Dose: 200 mls/hr Ciprofloxacin (Cipro 400mg/200ml Dsw) 400 mg in 200 mls @ 133 mls/hr IVPB Q12H [facility] Last Admin: 05/06/17 06:48 Dose: 133 mls/hr Mesalamine (Delzicol) 800 mg PO DAILY [facility] Last Admin: 05/06/17 10:10 Dose: 800 mg Pantoprazole Sodium (Protonix Ec Tab) 40 mg PO DAILY [facility] Last Admin: 05/06/17 10:07 Dose: 40 mg - Labs Labs: 05/05/17 06:45 05/05/17 06:45 PT 11.3 SECONDS (9.7-12.2) 04/17/17 08:11 INR 1.0 04/17/17 08:11 APTT 26 SECONDS (21-34) 04/17/17 08:11
--- NOTE | 2017-05-06 18:54 | CP.PCM.PN ---
Subjective - Date & Time of Evaluation Date of Evaluation: 05/06/17 Time of Evaluation: 11:00 - Subjective Subjective: clinically same Objective - Vital Signs/Intake and Output Vital Signs (last 24 hours): Temp Pulse Resp BP Pulse Ox 98.5 F 110 H 20 106/71 98 05/06/17 15:40 05/06/17 15:40 05/06/17 15:40 05/06/17 15:40 05/06/17 15:40 Intake and Output: 05/06/17 05/06/17 06:59 18:59 Intake Total 900 Output Total 900 Balance 0 - Medications Medications: Current Medications Apixaban (Eliquis) 5 mg PO BID [facility] Last Admin: 04/27/17 09:41 Dose: 5 mg Cyanocobalamin (Vitamin B12 1000 Mcg Tab) 1,000 mcg PO DAILY [facility] Last Admin: 05/06/17 10:10 Dose: 1,000 mcg Diphenhydramine HCl (Benadryl) 25 mg IVP Q3 PRN PRN Reason: Itching / Pruritus Last Admin: 05/06/17 16:51 Dose: 25 mg Ferrous Sulfate (Feosol) 325 mg PO BID [facility] Last Admin: 05/06/17 17:47 Dose: 325 mg Linezolid (Zyvox 600mg/300ml D5w) 600 mg in 300 mls @ 200 mls/hr IVPB Q12 [facility] Last Admin: 05/06/17 10:18 Dose: 200 mls/hr Ciprofloxacin (Cipro 400mg/200ml Dsw) 400 mg in 200 mls @ 133 mls/hr IVPB Q12H [facility] Last Admin: 05/06/17 06:48 Dose: 133 mls/hr Mesalamine (Delzicol) 800 mg PO DAILY [facility] Last Admin: 05/06/17 10:10 Dose: 800 mg Pantoprazole Sodium (Protonix Ec Tab) 40 mg PO DAILY [facility] Last Admin: 05/06/17 10:07 Dose: 40 mg - Labs Labs: 05/05/17 06:45 05/05/17 06:45 PT 11.3 SECONDS (9.7-12.2) 04/17/17 08:11 INR 1.0 04/17/17 08:11 APTT 26 SECONDS (21-34) 04/17/17 08:11 Assessment and Plan (1) Abscess Status: Acute (2) Crohn disease Status: Acute (3) Pulmonary embolism Status: Acute (4) Abdominal pain Status: Acute (5) Constipation Status: Acute (6) DVT (deep venous thrombosis) Status: Acute (7) Diarrhea Status: Acute (8) Diarrhea Status: Acute (9) Encounter for wound care Status: Acute (10) Fever Status: Acute (11) Foreign body Status: Acute (12) Intractable abdominal pain Status: Acute (13) Intractable pain Status: Acute (14) Prophylactic measure Status: Acute (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
[2017-05-06] MEDS ORDERED: Oxycodone/Acetaminophen 5/325 mg Tab PO ONE (19:51)
--- NOTE | 2017-05-06 20:51 | PN ---
DATE: SUBJECTIVE: The patient was discussed with the resident. The patient remains afebrile. He has been given IV antibiotics for a long time. He does have mild thickening in the axillary area, but no abscess and also perineal area remains with excoriations, but now has no abscesses. He has been on antibiotic since he was admitted and has been seen by Dr. Taylor many times. He has been here since 03/22/2017, so more than a month, almost 6 weeks. At this time, I would discontinue IV antibiotics and he could be sent home on Bactrim for 10 days to maintain good hygiene. PHYSICAL EXAMINATION: VITAL SIGNS: Vitals have been stable. GENERAL: He is awake and alert. He is waiting for his family to take him home. LUNGS: Clear. HEART: S1 and S2 is regular. ABDOMEN: Soft, nontender. Has a colostomy site. ASSESSMENT AND PLAN: Has excoriation in the perineal area between the 2 buttocks. I think at this time with the local, since he has no white count, no fevers and has had antibiotics, he should be able to improve by local hygiene, good nutrition as well as local wound care. Santosh Daniel MD cc:
== END 2017-05-06 20:20 | disposition home or self-care (01) | DRG 564 ==
LOC: C.ER 18:27 → C.9E 22:00 → C.6T 23:08
PROVIDERS: ADMIT Internal Medicine Nephrology; ATTEND Internal Medicine Nephrology
PROC: 0J990ZX Drainage of Buttock Subcutaneous Tissue and Fascia, Open Approach, Diagnostic (ICD-10-PCS; 2017-03-25)
PROC: 02HV33Z Insertion of Infusion Device into Superior Vena Cava, Percutaneous Approach (ICD-10-PCS; 2017-03-25)
PROC: 0HB8XZZ Excision of Buttock Skin, External Approach (ICD-10-PCS; principal; 2017-03-25 10:00)
PROC: 0J990ZZ Drainage of Buttock Subcutaneous Tissue and Fascia, Open Approach (ICD-10-PCS; 2017-04-17)
PROC: 0J990ZX Drainage of Buttock Subcutaneous Tissue and Fascia, Open Approach, Diagnostic (ICD-10-PCS; 2017-04-19)
PROC: 0HB9XZZ Excision of Perineum Skin, External Approach (ICD-10-PCS; 2017-04-19)
DX: L02.31 Cutaneous abscess of buttock (principal); I26.99 Other pulmonary embolism without acute cor pulmonale; I82.C11 Acute embolism and thrombosis of right internal jugular vein; K50.911 Crohn's disease, unspecified, with rectal bleeding; K61.1 Rectal abscess; I31.3 Pericardial effusion (noninflammatory); W01.0XXA Fall on same level from slipping, tripping and stumbling without subsequent striking against object, initial encounter; Z93.3 Colostomy status; F32.9 Major depressive disorder, single episode, unspecified; M25.559 Pain in unspecified hip; B95.62 Methicillin resistant Staphylococcus aureus infection as the cause of diseases classified elsewhere; K59.00 Constipation, unspecified; L98.419 Non-pressure chronic ulcer of buttock with unspecified severity; L73.2 Hidradenitis suppurativa

== ENCOUNTER 2017-06-08 18:52 | Inpatient (IN) | payer MEDICAID ==
[2017-06-08 18:52] VITALS: BMI 20.6
--- NOTE | 2017-06-08 19:23 | C.PDOC ---
History Of Present Illness Patient with a Hx of colostomy presents to the ER with a complaint of vomiting blood for the past 3 days associated with some chest discomfort. Patient is passing stools regularly; denies fever or chills. Time Seen by Provider: 06/08/17 19:23 Chief Complaint (Nursing): Chest Pain History Per: Patient History/Exam Limitations: no limitations Onset/Duration Of Symptoms: Days Current Symptoms Are (Timing): Still Present Context: Other Severity: Moderate Pain Scale Rating Of: 5 Quality: Dull Associated Symptoms: denies: Nausea, Dyspnea, Diaphoresis, Syncope Modifying Factors: None Exacerbating Factors: None Alleviating Factors: None Recent travel outside of the [place]: No Additional History Per: Patient Past Medical History Reviewed: Historical Data, Nursing Documentation, Vital Signs Vital Signs: Last Vital Signs Temp 98.3 F 06/08/17 22:38 Pulse 94 H 06/08/17 22:38 Resp 15 06/08/17 22:38 BP 119/70 06/08/17 22:38 Pulse Ox 100 06/08/17 22:38 - Medical History PMH: Crohn's Disease (COLOSTOMY 2015), Depression - [facility] Procedures DRAINAGE OF BACK SUBCU/FASCIA, OPEN APPROACH (10/21/16) DRAINAGE OF BUTTOCK SKIN, EXTERNAL APPROACH, DIAGNOSTIC (09/23/16) DRAINAGE OF BUTTOCK SUBCU/FASCIA, OPEN APPROACH (03/22/17) DRAINAGE OF BUTTOCK SUBCU/FASCIA, OPEN APPROACH, DIAGN (03/22/17) DRAINAGE OF LEFT AXILLA, OPEN APPROACH (12/21/16) DRAINAGE OF PERINEUM SUBCU/FASCIA, OPEN APPROACH (01/30/17) EXCISION OF BACK SKIN, EXTERNAL APPROACH (09/23/16) EXCISION OF BACK SUBCU/FASCIA, OPEN APPROACH (10/21/16) EXCISION OF BUTTOCK SKIN, EXTERNAL APPROACH (03/22/17) EXCISION OF BUTTOCK SUBCU/FASCIA, OPEN APPROACH (10/21/16) EXCISION OF LEFT AXILLARY LYMPHATIC, OPEN APPROACH (12/21/16) EXCISION OF PERINEUM SKIN, EXTERNAL APPROACH (03/22/17) EXTRACTION OF BUTTOCK SKIN, EXTERNAL APPROACH (09/23/16) EXTRACTION OF PERINEUM SUBCU/FASCIA, OPEN APPROACH (01/30/17) GROUP PSYCHOTHERAPY (11/25/16) INDIVIDUAL PSYCHOTHERAPY, COGNITIVE-BEHAVIORAL (11/25/16) INDIVIDUAL PSYCHOTHERAPY, SUPPORTIVE (05/23/17) INSERTION OF INFUSION DEV INTO SUP VENA CAVA, PERC APPROACH (05/23/17) REMOVAL OF INFUSION DEV FROM GREAT VESSEL, WAREHOUSE INVENTORY CLERK APPROACH (12/21/16) ULTRASONOGRAPHY OF SUPERIOR VENA CAVA, GUIDANCE (05/23/17) Family History: States: No Known Family Hx - Social History Hx Alcohol Use: No Hx Substance Use: No - Immunization History Hx Tetanus Toxoid Vaccination: No Hx Influenza Vaccination: No Hx Pneumococcal Vaccination: No Review Of Systems Constitutional: Negative for: Fever, Chills Eyes: Negative for: Redness ENT: Negative for: Throat Pain Cardiovascular: Positive for: Chest Pain (Discomfort) Respiratory: Negative for: Shortness of Breath Gastrointestinal: Positive for: Nausea, Vomiting, Abdominal Pain Genitourinary: Negative for: Dysuria Musculoskeletal: Negative for: Back Pain Skin: Positive for: Rash Neurological: Negative for: Weakness Psych: Negative for: Anxiety Physical Exam - Physical Exam Appears: Non-toxic Skin: Warm, Dry Head: Normacephalic Eye(s): bilateral: Normal Inspection Oral Mucosa: Moist Neck: Supple Chest: Symmetrical Cardiovascular: Rhythm Regular Respiratory: No Rales, No Rhonchi, No Wheezing Gastrointestinal/Abdominal: Soft, Tenderness, Other (Left sided colostomy) Back: No CVA Tenderness, Other (multiple abscesses at gluteal cleft) Extremity: Normal ROM Extremity: Bilateral: Atraumatic, Normal Color And Temperature, Normal ROM Neurological/Psych: Oriented x3, Normal Speech, Normal Cognition Gait: Steady ED Course And Treatment - Laboratory Results Result Diagrams: 06/08/17 19:40 06/08/17 17:43 ECG: Interpreted By Me, Viewed By Me O2 Sat by Pulse Oximetry: 100 (Room air) Pulse Ox Interpretation: Normal Progress Note: EKG, blood work, and urinalysis ordered. Benadryl, dilaudid, zofran, protonix, and IV fluids administered. Disposition Discussed With : Osvaldo Barrett Comment: accepted the pt on his sevice and took over the care at 9:12 PM Doctor Will See Patient In The: Hospital Counseled Patient/Family Regarding: Studies Performed, Diagnosis - Disposition Disposition: HOSPITALIZED Disposition Time: 19:23 Condition: FAIR - Clinical Impression Clinical Impression: Crohn disease, Hematemesis with nausea, Abdominal pain - Scribe Statement The provider has reviewed the documentation as recorded by the Laneyibkenna Velásquez All medical record entries made by the Laneyibkenna were at my direction and personally dictated by me. I have reviewed the chart and agree that the record accurately reflects my personal performance of the history, physical exam, medical decision making, and the department course for this patient. I have also personally directed, reviewed, and agree with the discharge instructions and disposition. Decision To Admit - Pt Status Changed To: Hospital Disposition Of: Inpatient - Admit Certification Admit to Inpatient:: After my assessment, the patient will require hospitalization for at least two midnights. This is because of the severity of symptoms shown, intensity of services needed, and/or the medical risk in this patient being treated as an outpatient. - InPatient: Physician Admission Certification: I certify that this patient requires 2 or more midnights of care for the following reason:: After my assessment, the patient will require hospitalization for at least two midnights. This is because of the severity of symptoms shown, intensity of services needed, and/or the medical risk in this patient being treated as an outpatient. - . Bed Request Type: Telemetry Admitting Physician: Osvaldo Barrett Patient Diagnosis: Crohn disease, Hematemesis with nausea, Abdominal pain
[2017-06-08] MEDS ORDERED: Sodium Chloride 0.9% 1,000 ML IV ONE (19:24)
[2017-06-08] MEDS ORDERED: DiphenhydrAMINE 50 mg/ml Inj IVP STA (19:36)
[2017-06-08] MEDS ORDERED: HYDROmorphone 1 mg/ml ISec IVP STA (19:36)
[2017-06-08 19:48] LABS: BASO # 0.2 K/uL (0.0-0.2); BASO % 1.1 % (0.0-2.0); EOS # 0.4 K/uL (0.0-0.7); EOS % 2.3 % (0.0-4.0); HEMATOCRIT 34.4 % (35.0-51.0); LYMPH # 5.1 K/uL (1.0-4.3); LYMPH % 30.4 % (20.0-40.0); MEAN CELL VOLUME 70.5 fL (80.0-94.0); MEAN CORPUSCULAR HEMOGLOBIN 21.8 pg (27.0-31.0); MEAN PLATELET VOLUME 8.2 fL (7.2-11.7); MONO # 0.9 K/uL (0.0-0.8); MONO % 5.2 % (0.0-10.0); RED CELL DISTRIBUTION WIDTH 19.3 % (11.5-14.5)
[2017-06-08 19:50] LABS: WHITE BLOOD COUNT 16.7 K/uL (4.8-10.8)
[2017-06-08] MEDS ORDERED: DiphenhydrAMINE 50 mg/ml Inj ONE ×2 (19:51→23:39)
[2017-06-08] MEDS ORDERED: HYDROmorphone 0.5 mg/0.5 ml ISec ONE (19:52)
[2017-06-08 19:58] LABS: CHLORIDE 100 mmol/L (98-107)
[2017-06-08 19:59] LABS: POTASSIUM 5.9 mmol/L (3.6-5.2); SODIUM 134 mmol/L (132-148)
[2017-06-08 20:01] LABS: ALKALINE PHOSPHATASE 130 U/L (38-126); ALT/SGPT 51 U/L (21-72); AST/SGOT 64 U/L (17-59); BILIRUBIN,TOTAL 0.9 mg/dL (0.2-1.3); BLOOD UREA NITROGEN 12 mg/dL (9-20); CARBON DIOXIDE 22 mmol/L (22-30); GFR AFRICAN-AMERICAN > 60; GLUCOSE,RANDOM 76 mg/dL (75-110); TOTAL PROTEIN 9.2 g/dL (6.3-8.3)
[2017-06-08 20:02] LABS: ALCOHOL SERUM < 10 mg/dl (0-10); CALCIUM 9.9 mg/dl (8.6-10.4)
[2017-06-08 20:58] LABS: RBC URINE 1 /hpf (0-3); URINE BILIRUBIN NEGATIVE (NEGATIVE); URINE BLOOD NEGATIVE (NEGATIVE); URINE COLOR Yellow (YELLOW); URINE GLUCOSE (UA) NORMAL (Normal); URINE KETONE NEGATIVE (NEGATIVE); URINE LEUKOCYTE ESTERASE NEG Leu/uL (Negative); URINE PROTEIN NEGATIVE (NEGATIVE); URINE UROBILINOGEN NORMAL mg/dL (0.2-1.0); WBC URINE 1 /hpf (0-5)
[2017-06-08] MEDS ORDERED: Ciprofloxacin 400mg/200ml D5W 400 MG/200 ML BAG IVPB STA (21:29)
[2017-06-08] MEDS ORDERED: metroNIDAZOLE IV 500 mg/100 ml 500 MG/100 ML BAG IVPB SCH (21:30)
[2017-06-08] MEDS ORDERED: Ciprofloxacin 400mg/200ml D5W 400 MG/200 ML BAG IVPB ONE (21:52)
[2017-06-08] MEDS ORDERED: Oxycodone/Acetaminophen 5/325 mg Tab PO PRN (22:05)
--- NOTE | 2017-06-08 22:05 | CP.PCM.HP ---
Past Patient History - Infectious Disease Hx of Infectious Diseases: None - Past Medical History & Family History Past Medical History?: Yes - Past Social History Smoking Status: Never Smoked - CARDIAC Hx Cardiac Disorders: No - PULMONARY Hx Respiratory Disorders: No - NEUROLOGICAL Hx Neurological Disorder: No - HEENT Hx HEENT Problems: No - RENAL Hx Chronic Kidney Disease: No - ENDOCRINE/METABOLIC Hx Endocrine Disorders: No - HEMATOLOGICAL/ONCOLOGICAL Hx Blood Disorders: No - INTEGUMENTARY Hx Dermatological Problems: Yes Other/Comment: Perineal wound. Rectal abcess - MUSCULOSKELETAL/RHEUMATOLOGICAL Hx Musculoskeletal Disorders: No Hx Falls: No - GASTROINTESTINAL Hx Crohn's Disease: Yes (COLOSTOMY 2016) - GENITOURINARY/GYNECOLOGICAL Hx Genitourinary Disorders: No - PSYCHIATRIC Hx Depression: Yes Hx Substance Use: No - SURGICAL HISTORY Hx Surgeries: Yes (SEE COMMENT) Other/Comment: LOOP COLOSTOMY. Perineal wound. Right upper arm PICC line. COLON RESECTION - ANESTHESIA Hx Anesthesia: Yes Hx Anesthesia Reactions: No Hx Malignant Hyperthermia: No Meds Allergies/Adverse Reactions: Allergies Allergy/AdvReac Type Severity Reaction Status Date / Time morphine Allergy Severe ITCHING Verified 03/22/17 18:32 Results - Vital Signs Recent Vital Signs: Last Vital Signs Temp 98.2 F 06/08/17 19:08 Pulse 88 06/08/17 20:46 Resp 16 06/08/17 20:46 BP 106/69 06/08/17 20:46 Pulse Ox 100 06/08/17 21:28 - Labs Result Diagrams: 06/08/17 19:40 06/08/17 17:43 Labs: Laboratory Results - last 24 hr 06/08/17 06/08/17 06/08/17 17:43 17:43 19:40 WBC 16.7 H D RBC 4.88 Hgb 10.7 L Hct 34.4 L MCV 70.5 L MCH 21.8 L MCHC 31.0 L RDW 19.3 H Plt Count 688 H D MPV 8.2 Neut % (Auto) 61.0 Lymph % (Auto) 30.4 [place] % (Auto) 5.2 Eos % (Auto) 2.3 Baso % (Auto) 1.1 Neut # 10.2 H Lymph # 5.1 H [place] # 0.9 H Eos # 0.4 Baso # 0.2 PT 11.2 INR 1.0 APTT 24 Sodium 134 Potassium 5.9 H Chloride 100 Carbon Dioxide 22 Anion Gap 18 BUN 12 Creatinine 0.6 L Est GFR ( Amer) > 60 Est GFR (Non-Af Amer) > 60 Random Glucose 76 Calcium 9.9 Total Bilirubin 0.9 AST 64 H D ALT 51 Alkaline Phosphatase 130 H D Troponin I < 0.0120 Total Protein 9.2 H Albumin 4.7 Globulin 4.5 H Albumin/Globulin Ratio 1.0 Lipase 176 Urine Color Urine Clarity Urine pH Ur Specific [place] Urine Protein Urine Glucose (UA) Urine Ketones Urine Blood Urine Nitrate Urine Bilirubin Urine Urobilinogen Ur Leukocyte Esterase Urine WBC (Auto) Urine RBC (Auto) Ur Squamous Epith Cells Alcohol, Quantitative < 10 06/08/17 20:42 WBC RBC Hgb Hct MCV MCH MCHC RDW Plt Count MPV Neut % (Auto) Lymph % (Auto) [place] % (Auto) Eos % (Auto) Baso % (Auto) Neut # Lymph # [place] # Eos # Baso # PT INR APTT Sodium Potassium Chloride Carbon Dioxide Anion Gap BUN Creatinine Est GFR ( Amer) Est GFR (Non-Af Amer) Random Glucose Calcium Total Bilirubin AST ALT Alkaline Phosphatase Troponin I Total Protein Albumin Globulin Albumin/Globulin Ratio Lipase Urine Color Yellow Urine Clarity Clear Urine pH 7.0 Ur Specific [place] 1.017 Urine Protein Negative Urine Glucose (UA) Normal Urine Ketones Negative Urine Blood Negative Urine Nitrate Negative Urine Bilirubin Negative Urine Urobilinogen Normal Ur Leukocyte Esterase Neg Urine WBC (Auto) 1 Urine RBC (Auto) 1 Ur Squamous Epith Cells < 1 Alcohol, Quantitative
[2017-06-08] MEDS ORDERED: HYDROmorphone 1 mg/ml ISec IVP PRN (22:47)
[2017-06-08] MEDS ORDERED: Ciprofloxacin 400mg/200ml D5W 400 MG/200 ML BAG IVPB SCH (23:00)
[2017-06-08] MEDS: DiphenhydrAMINE 50 mg/ml Inj IVP PRN (23:41)
[2017-06-09] MEDS: DiphenhydrAMINE 50 mg/ml Inj IVP PRN ×7 (03:16→22:53)
[2017-06-09] MEDS: HYDROmorphone 0.5 mg/0.5 ml ISec IVP PRN ×7 (03:17→22:53)
--- NOTE | 2017-06-09 09:18 | CP.PCM.CON ---
<Arely Morales - Last Filed: 06/09/17 09:25> History of Present Illness - History of Present Illness History of Present Illness: GI Fellow PGY4 Consult Note This is a 22yo male with PMHx significant for Crohn's Disease diagnosed 5 years ago, complicated by multiple intraabdominal/pelvic abscesses s/p multiple I&Ds, loop colostomy 04/2016. Pt is presenting with complaints of hematemesis for 1 week, pt reports he has been vomiting3-4xday with dark blood. 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 Pt [place] Ivers[place] [facility] [place] saw his GI doctor yesterday who scheduled him for EGD in 2months. He told him to come to the ER if needs urgent EGD. Pt reports his last EGD was 4-5yrs ago, colonoscopy was August 2016. Pt denies melena, hematochezia. Pt is on Humira 40mg q2 weeks last treatment was last week Thursday. Pt just started on Remicaide 0wks, 2wks was last Thursday. Since admission, no further hematemesis PMHx: See HPI PSHx: Partial colectomy 02/2015, loop colostomy 04/2016, multiple I&Ds perianal abscesses FHx: Paternal aunt - Crohn's SHx: Denies tobacco, EtOH or illicit drug use Endo: Last colonoscopy in August 2016 @ [facility], EGD 4-5yrs ago Past Patient History - Infectious Disease Hx of Infectious Diseases: None - Past Medical History & Family History Past Medical History?: Yes - Past Social History Smoking Status: Never Smoked - CARDIAC Hx Cardiac Disorders: No - PULMONARY Hx Respiratory Disorders: No - NEUROLOGICAL Hx Neurological Disorder: No - HEENT Hx HEENT Problems: No - RENAL Hx Chronic Kidney Disease: No - ENDOCRINE/METABOLIC Hx Endocrine Disorders: No - HEMATOLOGICAL/ONCOLOGICAL Hx Blood Disorders: No - INTEGUMENTARY Hx Dermatological Problems: Yes Other/Comment: Perineal wound. Rectal abcess - MUSCULOSKELETAL/RHEUMATOLOGICAL Hx Musculoskeletal Disorders: No Hx Falls: No - GASTROINTESTINAL Hx Crohn's Disease: Yes (COLOSTOMY 2015) - GENITOURINARY/GYNECOLOGICAL Hx Genitourinary Disorders: No - PSYCHIATRIC Hx Depression: Yes Hx Substance Use: No - SURGICAL HISTORY Hx Surgeries: Yes (SEE COMMENT) Other/Comment: LOOP COLOSTOMY. Perineal wound. Right upper arm PICC line. COLON RESECTION - ANESTHESIA Hx Anesthesia: Yes Hx Anesthesia Reactions: No Hx Malignant Hyperthermia: No Meds Allergies/Adverse Reactions: Allergies Allergy/AdvReac Type Severity Reaction Status Date / Time morphine Allergy Severe ITCHING Verified 03/22/17 18:32 - Medications Medications: Current Medications Apixaban (Eliquis) 5 mg PO BID [facility] Ascorbic Acid (Vitamin C 500 Mg Tab) 500 mg PO DAILY [facility] Cyanocobalamin (Vitamin B12 1000 Mcg Tab) 1,000 mcg PO DAILY [facility] Diphenhydramine HCl (Benadryl) 25 mg IVP Q3 PRN PRN Reason: Itching / Pruritus Last Admin: 06/09/17 06:12 Dose: 25 mg Escitalopram Oxalate (Lexapro) 5 mg PO DAILY [facility] Ferrous Sulfate (Feosol) 325 mg PO BID [facility] Hydromorphone HCl (Dilaudid) 1 mg IVP Q3 PRN PRN Reason: Pain, moderate (4-7) Last Admin: 06/09/17 06:12 Dose: 1 mg Metronidazole (Flagyl) 500 mg in 100 mls @ 100 mls/hr IVPB STAT [facility] Ciprofloxacin (Cipro 400mg/200ml Dsw) 400 mg in 200 mls @ 133 mls/hr IVPB Q12H [facility] Lactobacillus Acidophilus (Bacid Acidophilus) 1 cap PO BID [facility] Mesalamine (Delzicol) 800 mg PO DAILY [facility] Multivitamins (Hexavitamin) 1 tab PO DAILY [facility] Oxycodone/Acetaminophen (Percocet 5/325 Mg Tab) 1 tab PO Q8H PRN PRN Reason: Pain, severe (8-10) Stop: 06/11/17 22:06 Pantoprazole Sodium (Protonix Ec Tab) 40 mg PO DAILY [facility] Pneumococcal Polyvalent Vaccine (Pneumovax 23 Vaccine) 0.5 ml IM .ONCE ONE Stop: 06/09/17 10:01 Physical Exam - Constitutional Appears: Non-toxic, No Acute Distress - Head Exam Head Exam: ATRAUMATIC, NORMAL INSPECTION, NORMOCEPHALIC - Eye Exam Eye Exam: EOMI, Normal appearance, PERRL Pupil Exam: PERRL - ENT Exam ENT Exam: Mucous Membranes Moist, Normal Exam - Neck Exam Neck exam: Positive for: Normal Inspection - Respiratory Exam Respiratory Exam: Clear to Auscultation Bilateral, NORMAL BREATHING PATTERN - Cardiovascular Exam Cardiovascular Exam: REGULAR RHYTHM, RRR, +S1, +S2 - GI/Abdominal Exam GI & Abdominal Exam: Normal Bowel Sounds, Soft. absent: Distended, Organomegaly , Tenderness Additional comments: Colostomy with brown stool, no melena, no hematochezia - Rectal Exam Rectal Exam: Deferred - Extremities Exam Extremities exam: Positive for: normal inspection - Back Exam Back exam: NORMAL INSPECTION - Neurological Exam Neurological exam: Alert, Oriented x3 - Psychiatric Exam Psychiatric exam: Normal Affect, Normal Mood - Skin Skin Exam: Dry, Intact, Normal Color, Warm Results - Vital Signs Recent Vital Signs: Last Vital Signs Temp 98.2 F 06/09/17 07:00 Pulse 63 06/09/17 07:00 Resp 20 06/09/17 07:00 BP 115/80 06/09/17 07:00 Pulse Ox 96 06/09/17 07:00 - Labs Result Diagrams: 06/08/17 19:40 06/08/17 17:43 Labs: Laboratory Results - last 24 hr 06/08/17 06/08/17 06/08/17 17:43 17:43 19:40 WBC 16.7 H D RBC 4.88 Hgb 10.7 L Hct 34.4 L MCV 70.5 L MCH 21.8 L MCHC 31.0 L RDW 19.3 H Plt Count 688 H D MPV 8.2 Neut % (Auto) 61.0 Lymph % (Auto) 30.4 [place] % (Auto) 5.2 Eos % (Auto) 2.3 Baso % (Auto) 1.1 Neut # 10.2 H Lymph # 5.1 H [place] # 0.9 H Eos # 0.4 Baso # 0.2 Differential Comment PT 11.2 INR 1.0 APTT 24 Sodium 134 Potassium 5.9 H Chloride 100 Carbon Dioxide 22 Anion Gap 18 BUN 12 Creatinine 0.6 L Est GFR ( Amer) > 60 Est GFR (Non-Af Amer) > 60 Random Glucose 76 Calcium 9.9 Total Bilirubin 0.9 AST 64 H D ALT 51 Alkaline Phosphatase 130 H D Troponin I < 0.0120 Total Protein 9.2 H Albumin 4.7 Globulin 4.5 H Albumin/Globulin Ratio 1.0 Lipase 176 Urine Color Urine Clarity Urine pH Ur Specific [place] Urine Protein Urine Glucose (UA) Urine Ketones Urine Blood Urine Nitrate Urine Bilirubin Urine Urobilinogen Ur Leukocyte Esterase Urine WBC (Auto) Urine RBC (Auto) Ur Squamous Epith Cells Alcohol, Quantitative < 10 06/08/17 20:42 WBC RBC Hgb Hct MCV MCH MCHC RDW Plt Count MPV Neut % (Auto) Lymph % (Auto) [place] % (Auto) Eos % (Auto) Baso % (Auto) Neut # Lymph # [place] # Eos # Baso # Differential Comment PT INR APTT Sodium Potassium Chloride Carbon Dioxide Anion Gap BUN Creatinine Est GFR ( Amer) Est GFR (Non-Af Amer) Random Glucose Calcium Total Bilirubin AST ALT Alkaline Phosphatase Troponin I Total Protein Albumin Globulin Albumin/Globulin Ratio Lipase Urine Color Yellow Urine Clarity Clear Urine pH 7.0 Ur Specific [place] 1.017 Urine Protein Negative Urine Glucose (UA) Normal Urine Ketones Negative Urine Blood Negative Urine Nitrate Negative Urine Bilirubin Negative Urine Urobilinogen Normal Ur Leukocyte Esterase Neg Urine WBC (Auto) 1 Urine RBC (Auto) 1 Ur Squamous Epith Cells < 1 Alcohol, Quantitative Assessment & Plan - Assessment and Plan (Free Text) Assessment: This is a 22yM with a hx of Crohn's Disease presenting with hematemesis. 1. Hematemesis 2. Crohn's Disease Plan: -Pt with no further active GI bleeding, no hematemesis, melena, hematochezia -Hgb stable, continue to monitor, hemodynamically stable -Hold OAC -Will start regular diet and see if pt tolerates -No plan for emergent endoscopy at this time -Recommend follow up with his primary GI doctor -Will continue to follow closely <Campos Lopez - Last Filed: 06/09/17 11:47> Meds - Medications Medications: Current Medications Ascorbic Acid (Vitamin C 500 Mg Tab) 500 mg PO DAILY [facility] Cyanocobalamin (Vitamin B12 1000 Mcg Tab) 1,000 mcg PO DAILY [facility] Diphenhydramine HCl (Benadryl) 25 mg IVP Q3 PRN PRN Reason: Itching / Pruritus Last Admin: 06/09/17 09:15 Dose: 25 mg Escitalopram Oxalate (Lexapro) 5 mg PO DAILY [facility] Ferrous Sulfate (Feosol) 325 mg PO BID [facility] Hydromorphone HCl (Dilaudid) 1 mg IVP Q3 PRN PRN Reason: Pain, moderate (4-7) Last Admin: 06/09/17 09:16 Dose: 1 mg Metronidazole (Flagyl) 500 mg in 100 mls @ 100 mls/hr IVPB STAT [facility] Ciprofloxacin (Cipro 400mg/200ml Dsw) 400 mg in 200 mls @ 133 mls/hr IVPB Q12H [facility] Lactobacillus Acidophilus (Bacid Acidophilus) 1 cap PO BID [facility] Mesalamine (Delzicol) 800 mg PO DAILY [facility] Multivitamins (Hexavitamin) 1 tab PO DAILY [facility] Oxycodone/Acetaminophen (Percocet 5/325 Mg Tab) 1 tab PO Q8H PRN PRN Reason: Pain, severe (8-10) Stop: 06/11/17 22:06 Pantoprazole Sodium (Protonix Ec Tab) 40 mg PO DAILY [facility] Results - Vital Signs Recent Vital Signs: Last Vital Signs Temp 98.2 F 06/09/17 07:00 Pulse 63 06/09/17 07:00 Resp 20 06/09/17 07:00 BP 115/80 06/09/17 07:00 Pulse Ox 96 06/09/17 07:00 - Labs Result Diagrams: 06/08/17 19:40 06/08/17 17:43 Labs: Laboratory Results - last 24 hr 06/08/17 06/08/17 06/08/17 17:43 17:43 19:40 WBC 16.7 H D RBC 4.88 Hgb 10.7 L Hct 34.4 L MCV 70.5 L MCH 21.8 L MCHC 31.0 L RDW 19.3 H Plt Count 688 H D MPV 8.2 Neut % (Auto) 61.0 Lymph % (Auto) 30.4 [place] % (Auto) 5.2 Eos % (Auto) 2.3 Baso % (Auto) 1.1 Neut # 10.2 H Lymph # 5.1 H [place] # 0.9 H Eos # 0.4 Baso # 0.2 Differential Comment PT 11.2 INR 1.0 APTT 24 Sodium 134 Potassium 5.9 H Chloride 100 Carbon Dioxide 22 Anion Gap 18 BUN 12 Creatinine 0.6 L Est GFR ( Amer) > 60 Est GFR (Non-Af Amer) > 60 Random Glucose 76 Calcium 9.9 Total Bilirubin 0.9 AST 64 H D ALT 51 Alkaline Phosphatase 130 H D Troponin I < 0.0120 Total Protein 9.2 H Albumin 4.7 Globulin 4.5 H Albumin/Globulin Ratio 1.0 Lipase 176 Urine Color Urine Clarity Urine pH Ur Specific [place] Urine Protein Urine Glucose (UA) Urine Ketones Urine Blood Urine Nitrate Urine Bilirubin Urine Urobilinogen Ur Leukocyte Esterase Urine WBC (Auto) Urine RBC (Auto) Ur Squamous Epith Cells Alcohol, Quantitative < 10 06/08/17 20:42 WBC RBC Hgb Hct MCV MCH MCHC RDW Plt Count MPV Neut % (Auto) Lymph % (Auto) [place] % (Auto) Eos % (Auto) Baso % (Auto) Neut # Lymph # [place] # Eos # Baso # Differential Comment PT INR APTT Sodium Potassium Chloride Carbon Dioxide Anion Gap BUN Creatinine Est GFR ( Amer) Est GFR (Non-Af Amer) Random Glucose Calcium Total Bilirubin AST ALT Alkaline Phosphatase Troponin I Total Protein Albumin Globulin Albumin/Globulin Ratio Lipase Urine Color Yellow Urine Clarity Clear Urine pH 7.0 Ur Specific [place] 1.017 Urine Protein Negative Urine Glucose (UA) Normal Urine Ketones Negative Urine Blood Negative Urine Nitrate Negative Urine Bilirubin Negative Urine Urobilinogen Normal Ur Leukocyte Esterase Neg Urine WBC (Auto) 1 Urine RBC (Auto) 1 Ur Squamous Epith Cells < 1 Alcohol, Quantitative Attending/Attestation - Attestation I have personally seen and examined this patient.: Yes I have fully participated in the care of the patient.: Yes I have reviewed all pertinent clinical information: Yes Notes (Text): 06/09/17 11:38 I have seen and examined patient with GI fellow. Agree with above documentation with the following additions. In brief, this is a 22 year old male with history of advanced Crohn's disease complicated by recurrent intraabdominal and nitza-rectal abscess s/p colostomy in April 2016, currently managed by Dr. 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 He describes having intermittent post-prandial vomiting over the past one week which has been dark in color. There is no associated abdominal pain, fever/chills, or weight loss. Since arrival to hospital patient has not had any recurrent episodes of vomiting. Advanced Crohn's disease with nitza-anal disease and recurrent intraabdominal abscess formation Hematemesis - resolved - Advance diet as tolerated - H/H stable, continue to monitor - Eliquis has been held as per medical team, continue to observe - Examination of ostomy bag reveals copious amounts of formed yellow/brown stool without presence of blood in bag - Continue with oral PPI therapy - Patient also currently on iron supplementation therapy which is PO, would suggest change to IV if clinically necessary as this may potentially exacerbate symptoms - No clinical indication for GI intervention at this time, patient has outpatient follow up scheduled with primary GI physician. Will sign off case, please reconsult as necessary, thank you.
[2017-06-09] MEDS ORDERED: Pneumococcal 23-Valent Vaccine IM ONE (10:00)
--- NOTE | 2017-06-09 10:17 | CP.PCM.PN ---
Subjective - Date & Time of Evaluation Date of Evaluation: 06/09/17 Time of Evaluation: 10:02 - Subjective Subjective: PGY-[address] Barrett's service: Pt seen and examined at bedside. Nursing reports no episodes of vomiting overnight. Patient admits continued nausea, and reports vomiting blood for the past three days prior to admission. He denies fever, chills, chest pain. Pt is NPO for possible EGD today. Objective - Vital Signs/Intake and Output Vital Signs (last 24 hours): Temp Pulse Resp BP Pulse Ox 98.2 F 63 20 115/80 96 06/09/17 07:00 06/09/17 07:00 06/09/17 07:00 06/09/17 07:00 06/09/17 07:00 Intake and Output: 06/09/17 06/09/17 06:59 18:59 Output Total 200 Balance -200 - Medications Medications: Current Medications Ascorbic Acid (Vitamin C 500 Mg Tab) 500 mg PO DAILY [facility] Cyanocobalamin (Vitamin B12 1000 Mcg Tab) 1,000 mcg PO DAILY [facility] Diphenhydramine HCl (Benadryl) 25 mg IVP Q3 PRN PRN Reason: Itching / Pruritus Last Admin: 06/09/17 09:15 Dose: 25 mg Escitalopram Oxalate (Lexapro) 5 mg PO DAILY [facility] Ferrous Sulfate (Feosol) 325 mg PO BID [facility] Hydromorphone HCl (Dilaudid) 1 mg IVP Q3 PRN PRN Reason: Pain, moderate (4-7) Last Admin: 06/09/17 09:16 Dose: 1 mg Metronidazole (Flagyl) 500 mg in 100 mls @ 100 mls/hr IVPB STAT [facility] Ciprofloxacin (Cipro 400mg/200ml Dsw) 400 mg in 200 mls @ 133 mls/hr IVPB Q12H [facility] Lactobacillus Acidophilus (Bacid Acidophilus) 1 cap PO BID [facility] Mesalamine (Delzicol) 800 mg PO DAILY [facility] Multivitamins (Hexavitamin) 1 tab PO DAILY [facility] Oxycodone/Acetaminophen (Percocet 5/325 Mg Tab) 1 tab PO Q8H PRN PRN Reason: Pain, severe (8-10) Stop: 06/11/17 22:06 Pantoprazole Sodium (Protonix Ec Tab) 40 mg PO DAILY [facility] - Labs Labs: 06/08/17 19:40 06/08/17 17:43 PT 11.2 SECONDS (9.7-12.2) 06/08/17 17:43 INR 1.0 06/08/17 17:43 APTT 24 SECONDS (21-34) 06/08/17 17:43 - Constitutional Appears: Non-toxic, No Acute Distress - Head Exam Head Exam: ATRAUMATIC, NORMOCEPHALIC - Eye Exam Eye Exam: EOMI. absent: Scleral icterus - ENT Exam ENT Exam: Mucous Membranes Moist - Respiratory Exam Respiratory Exam: Clear to Ausculation Bilateral, NORMAL BREATHING PATTERN. absent: Rales, Rhonchi, Wheezes - Cardiovascular Exam Cardiovascular Exam: RRR, +S1, +S2 - GI/Abdominal Exam GI & Abdominal Exam: Soft, Normal Bowel Sounds. absent: Tenderness Additional comments: Colostomy noted - producing liquid brown stool, without johnathan blood - Rectal Exam Rectal Exam: Deferred - Extremities Exam Extremities Exam: Normal Inspection. absent: Pedal Edema, Tenderness - Neurological Exam Neurological Exam: Alert, Awake, Oriented x3 - Psychiatric Exam Psychiatric exam: Normal Affect, Normal Mood - Skin Skin Exam: Normal Color, Warm Assessment and Plan - Assessment and Plan (Free Text) Plan: Hematemesis No episodes since admission Hgb stable Dr. Lopez consulted, help appreciated - no plan for emergent endoscopy - trial of regular diet Abscess on left buttock Long history of abscesses in this area ID consult, Dr. Daniel, help appreciated f/u reccs f/u wound culture, blood culture, urine culture Prior admission Culture: Wound cultures (05/21/17): Pseudomonas aeruginosa, Citrobacter freundii, Staph aureus Wound care consult, help appreciated Flagyl 500mg IV once in ED Cipro 400mg IV Q12H Dilaudid 2gm IV Q3H Benadryl 25mg IV Q3H Lactobacillus PO BID Hyperkalemia 5.9 on labs yesterday, however sample hemolyzed repeat 3.6 Crohn's Disease Loop Colostomy (2015) Home med Delzicol History of anemia Hgb stable, 10.7 today Feosol 325mg PO BID Anxiety Lexapro 5mg PO Daily Hx of DVT/PE Hold home Eliquis 5mg PO BID Insomnia Ambien 5mg PO HS PRN Prophylaxis SCDs Protonix 40mg PO Daily Regular Diet Hold heparin, Eliquis Shahriar Vimal PGY-[address] Shiloh Barrett
[2017-06-09] MEDS ORDERED: Sod Polystyrene Sulf 15 gm/60 ml Susp PO ONE (10:45)
[2017-06-09 11:58] LABS: CHLORIDE 97 mmol/L (98-107); POTASSIUM 3.6 mmol/L (3.6-5.2); SODIUM 137 mmol/L (132-148)
[2017-06-09 12:01] LABS: BLOOD UREA NITROGEN 10 mg/dL (9-20); CARBON DIOXIDE 28 mmol/L (22-30); GFR AFRICAN-AMERICAN > 60
[2017-06-09 12:02] LABS: CALCIUM 10.2 mg/dl (8.6-10.4); GLUCOSE,RANDOM 79 mg/dL (75-110)
[2017-06-09 12:05] LABS: MAGNESIUM 1.5 mg/dL (1.6-2.3); PHOSPHOROUS 5.6 mg/dL (2.5-4.5)
[2017-06-09] MEDS: Ciprofloxacin 400mg/200ml D5W 400 MG/200 ML BAG IVPB SCH ×2 (12:59→22:23)
[2017-06-09] MEDS: Multiple Vitamins Tab PO SCH (13:00)
[2017-06-09] MEDS: Lactobacillus Acidophilus 500 MU Cap PO SCH ×2 (13:00→17:58)
[2017-06-09] MEDS: Pantoprazole 40 mg EC Tab PO SCH (13:02)
[2017-06-09] MEDS ORDERED: Magnesium Sulfate 1 gm in D5W 1 GM/100 ML BAG IVPB ONE (15:33)
--- NOTE | 2017-06-09 19:03 | CP.PCM.PN ---
Subjective - Date & Time of Evaluation Date of Evaluation: 06/09/17 Time of Evaluation: 08:20 - Subjective Subjective: clinically same Objective - Vital Signs/Intake and Output Vital Signs (last 24 hours): Temp Pulse Resp BP Pulse Ox 98.4 F 75 18 116/80 98 06/09/17 16:00 06/09/17 16:00 06/09/17 16:00 06/09/17 16:00 06/09/17 16:00 Intake and Output: 06/09/17 06/10/17 18:59 06:59 Intake Total 200 Balance 200 - Medications Medications: Current Medications Ascorbic Acid (Vitamin C 500 Mg Tab) 500 mg PO DAILY [facility] Last Admin: 06/09/17 13:01 Dose: 500 mg Cyanocobalamin (Vitamin B12 1000 Mcg Tab) 1,000 mcg PO DAILY [facility] Last Admin: 06/09/17 13:01 Dose: 1,000 mcg Diphenhydramine HCl (Benadryl) 25 mg IVP Q3 PRN PRN Reason: Itching / Pruritus Last Admin: 06/09/17 16:33 Dose: 25 mg Escitalopram Oxalate (Lexapro) 5 mg PO DAILY [facility] Last Admin: 06/09/17 13:01 Dose: 5 mg Hydromorphone HCl (Dilaudid) 1 mg IVP Q3 PRN PRN Reason: Pain, moderate (4-7) Last Admin: 06/09/17 16:32 Dose: 1 mg Metronidazole (Flagyl) 500 mg in 100 mls @ 100 mls/hr IVPB STAT [facility] Ciprofloxacin (Cipro 400mg/200ml Dsw) 400 mg in 200 mls @ 133 mls/hr IVPB Q12H [facility] Last Admin: 06/09/17 12:59 Dose: 133 mls/hr Lactobacillus Acidophilus (Bacid Acidophilus) 1 cap PO BID [facility] Last Admin: 06/09/17 17:58 Dose: 1 cap Mesalamine (Delzicol) 800 mg PO DAILY [facility] Last Admin: 06/09/17 13:02 Dose: 800 mg Multivitamins (Hexavitamin) 1 tab PO DAILY [facility] Last Admin: 06/09/17 13:00 Dose: 1 tab Oxycodone/Acetaminophen (Percocet 5/325 Mg Tab) 1 tab PO Q8H PRN PRN Reason: Pain, severe (8-10) Stop: 06/11/17 22:06 Pantoprazole Sodium (Protonix Ec Tab) 40 mg PO DAILY [facility] Last Admin: 06/09/17 13:02 Dose: 40 mg - Labs Labs: 06/08/17 19:40 06/09/17 11:36 PT 11.2 SECONDS (9.7-12.2) 06/08/17 17:43 INR 1.0 06/08/17 17:43 APTT 24 SECONDS (21-34) 06/08/17 17:43 - Constitutional Appears: Well - Head Exam Head Exam: ATRAUMATIC, NORMAL INSPECTION, NORMOCEPHALIC - Eye Exam Eye Exam: EOMI, Normal appearance, PERRL Pupil Exam: NORMAL ACCOMODATION, PERRL - ENT Exam ENT Exam: Mucous Membranes Moist, Normal Exam - Neck Exam Neck Exam: Full ROM, Normal Inspection. absent: Lymphadenopathy - Respiratory Exam Respiratory Exam: Decreased Breath Sounds - Cardiovascular Exam Cardiovascular Exam: REGULAR RHYTHM, +S1, +S2 - GI/Abdominal Exam GI & Abdominal Exam: Soft, Diminished Bowel Sounds - Rectal Exam Rectal Exam: Deferred
--- NOTE | 2017-06-09 19:19 | CARD ---
APPROVED REPORT EKG Measurement Heart [id number] [id number] <Conclusion> Sinus rhythm with sinus arrhythmia with short [place] Otherwise normal ECG
[2017-06-09 23:53] VITALS: RESP 20
[2017-06-10] MEDS: DiphenhydrAMINE 50 mg/ml Inj IVP PRN ×7 (02:09→23:55)
[2017-06-10] MEDS: HYDROmorphone 0.5 mg/0.5 ml ISec IVP PRN ×7 (02:10→23:55)
[2017-06-10 07:50] LABS: BASO # 0.1 K/uL (0.0-0.2); BASO % 0.9 % (0.0-2.0); EOS # 0.4 K/uL (0.0-0.7); EOS % 3.7 % (0.0-4.0); HEMATOCRIT 34.7 % (35.0-51.0); LYMPH # 4.2 K/uL (1.0-4.3); LYMPH % 34.5 % (20.0-40.0); MEAN CELL VOLUME 69.9 fL (80.0-94.0); MEAN CORPUSCULAR HEMOGLOBIN 21.8 pg (27.0-31.0); MEAN CORPUSCULAR HGB CONC 31.2 g/dL (33.0-37.0); MONO # 0.9 K/uL (0.0-0.8); MONO % 7.5 % (0.0-10.0); RED CELL DISTRIBUTION WIDTH 18.9 % (11.5-14.5)
[2017-06-10 09:10] LABS: CHLORIDE 94 mmol/L (98-107); SODIUM 135 mmol/L (132-148)
[2017-06-10 09:11] LABS: POTASSIUM 4.5 mmol/L (3.6-5.2)
[2017-06-10 09:13] LABS: ALB/GLOB RATIO 1.2 (1.0-2.1); ALKALINE PHOSPHATASE 112 U/L (38-126); ALT/SGPT 50 U/L (21-72); AST/SGOT 27 U/L (17-59); BILIRUBIN,TOTAL 0.5 mg/dL (0.2-1.3); BLOOD UREA NITROGEN 9 mg/dL (9-20); CARBON DIOXIDE 29 mmol/L (22-30); GFR AFRICAN-AMERICAN > 60; TOTAL PROTEIN 7.7 g/dL (6.3-8.3)
[2017-06-10 09:14] LABS: CALCIUM 10.1 mg/dl (8.6-10.4); GLUCOSE,RANDOM 76 mg/dL (75-110)
[2017-06-10] MEDS: Pantoprazole 40 mg EC Tab PO SCH (09:34)
[2017-06-10] MEDS: Multiple Vitamins Tab PO SCH (09:35)
[2017-06-10] MEDS: Lactobacillus Acidophilus 500 MU Cap PO SCH ×2 (09:42→17:21)
[2017-06-10] MEDS ORDERED: Influenza Vaccine 60 mcg/0.5 mL SYR (4YR UP) IM ONE (10:00)
--- NOTE | 2017-06-10 11:10 | CP.PCM.PN ---
Subjective - Date & Time of Evaluation Date of Evaluation: 06/10/17 Time of Evaluation: 10:00 - Subjective Subjective: PGY3 on medicine Dr. Barrett service: Pt seen and examined at bedside this morning. Pt reports throwing up blood overnight but he flushed it so no RN witness. Pt also claimed that there will be EGD tomorrow with GI, but GI team signed off already. Pt otherwise have no complaints. Objective - Vital Signs/Intake and Output Vital Signs (last 24 hours): Temp Pulse Resp BP Pulse Ox 97.8 F 98 H 20 127/83 98 06/09/17 23:48 06/09/17 23:48 06/09/17 23:48 06/09/17 23:48 06/09/17 23:48 - Medications Medications: Current Medications Ascorbic Acid (Vitamin C 500 Mg Tab) 500 mg PO DAILY [facility] Last Admin: 06/10/17 09:35 Dose: 500 mg Cyanocobalamin (Vitamin B12 1000 Mcg Tab) 1,000 mcg PO DAILY [facility] Last Admin: 06/10/17 09:42 Dose: 1,000 mcg Diphenhydramine HCl (Benadryl) 25 mg IVP Q3 PRN PRN Reason: Itching / Pruritus Last Admin: 06/10/17 09:47 Dose: 25 mg Escitalopram Oxalate (Lexapro) 5 mg PO DAILY [facility] Last Admin: 06/10/17 09:41 Dose: 5 mg Hydromorphone HCl (Dilaudid) 1 mg IVP Q3 PRN PRN Reason: Pain, moderate (4-7) Last Admin: 06/10/17 09:33 Dose: 1 mg Metronidazole (Flagyl) 500 mg in 100 mls @ 100 mls/hr IVPB STAT [facility] Ciprofloxacin (Cipro 400mg/200ml Dsw) 400 mg in 200 mls @ 133 mls/hr IVPB Q12H [facility] Last Admin: 06/09/17 22:23 Dose: 133 mls/hr Lactobacillus Acidophilus (Bacid Acidophilus) 1 cap PO BID [facility] Last Admin: 06/10/17 09:42 Dose: 1 cap Mesalamine (Delzicol) 800 mg PO DAILY [facility] Last Admin: 06/10/17 09:41 Dose: 800 mg Multivitamins (Hexavitamin) 1 tab PO DAILY [facility] Last Admin: 06/10/17 09:35 Dose: 1 tab Oxycodone/Acetaminophen (Percocet 5/325 Mg Tab) 1 tab PO Q8H PRN PRN Reason: Pain, severe (8-10) Stop: 06/11/17 22:06 Pantoprazole Sodium (Protonix Ec Tab) 40 mg PO DAILY [facility] Last Admin: 06/10/17 09:34 Dose: 40 mg - Labs Labs: 06/10/17 07:37 06/10/17 08:39 PT 11.2 SECONDS (9.7-12.2) 06/08/17 17:43 INR 1.0 06/08/17 17:43 APTT 24 SECONDS (21-34) 06/08/17 17:43 - Constitutional Appears: Non-toxic, No Acute Distress - Head Exam Head Exam: NORMOCEPHALIC - Eye Exam Eye Exam: Normal appearance Pupil Exam: NORMAL ACCOMODATION - Respiratory Exam Respiratory Exam: Clear to Ausculation Bilateral, NORMAL BREATHING PATTERN. absent: Wheezes - Cardiovascular Exam Cardiovascular Exam: REGULAR RHYTHM, +S1, +S2. absent: Gallop, Rubs - GI/Abdominal Exam GI & Abdominal Exam: Soft, Normal Bowel Sounds Additional comments: left colostomy bag with soft brown stool - Neurological Exam Neurological Exam: Alert, Awake, Oriented x3 - Psychiatric Exam Psychiatric exam: Normal Mood - Skin Skin Exam: Intact Assessment and Plan - Assessment and Plan (Free Text) Assessment: Hematemesis No episodes since admission Hgb stable, no blood seen in colostomy bag Dr. Lopez consulted, help appreciated - no plan for emergent endoscopy - F/U outpatient GI Abscess on left buttock Long history of abscesses in this area ID consult, Dr. 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 Shiloh Barrett
[2017-06-10] MEDS: Ciprofloxacin 400mg/200ml D5W 400 MG/200 ML BAG IVPB SCH ×2 (13:27→22:29)
--- NOTE | 2017-06-10 13:41 | CARD ---
APPROVED REPORT EKG Measurement Heart [id number] NM [id number] <Conclusion> Sinus rhythm with short [place] Otherwise normal ECG
--- NOTE | 2017-06-10 19:33 | CP.PCM.PN ---
Subjective - Date & Time of Evaluation Date of Evaluation: 06/10/17 Time of Evaluation: 09:00 - Subjective Subjective: clinically same Objective - Vital Signs/Intake and Output Vital Signs (last 24 hours): Temp Pulse Resp BP Pulse Ox 98.5 F 98 H 20 115/76 96 06/10/17 17:17 06/10/17 17:17 06/10/17 17:17 06/10/17 17:17 06/10/17 17:17 - Medications Medications: Current Medications Ascorbic Acid (Vitamin C 500 Mg Tab) 500 mg PO DAILY [facility] Last Admin: 06/10/17 09:35 Dose: 500 mg Cyanocobalamin (Vitamin B12 1000 Mcg Tab) 1,000 mcg PO DAILY [facility] Last Admin: 06/10/17 09:42 Dose: 1,000 mcg Diphenhydramine HCl (Benadryl) 25 mg IVP Q3 PRN PRN Reason: Itching / Pruritus Last Admin: 06/10/17 17:21 Dose: 25 mg Escitalopram Oxalate (Lexapro) 5 mg PO DAILY [facility] Last Admin: 06/10/17 09:41 Dose: 5 mg Hydromorphone HCl (Dilaudid) 1 mg IVP Q3 PRN PRN Reason: Pain, moderate (4-7) Last Admin: 06/10/17 17:21 Dose: 1 mg Metronidazole (Flagyl) 500 mg in 100 mls @ 100 mls/hr IVPB STAT [facility] Ciprofloxacin (Cipro 400mg/200ml Dsw) 400 mg in 200 mls @ 133 mls/hr IVPB Q12H [facility] Last Admin: 06/10/17 13:27 Dose: 133 mls/hr Lactobacillus Acidophilus (Bacid Acidophilus) 1 cap PO BID [facility] Last Admin: 06/10/17 17:21 Dose: 1 cap Mesalamine (Delzicol) 800 mg PO DAILY [facility] Last Admin: 06/10/17 09:41 Dose: 800 mg Multivitamins (Hexavitamin) 1 tab PO DAILY [facility] Last Admin: 06/10/17 09:35 Dose: 1 tab Oxycodone/Acetaminophen (Percocet 5/325 Mg Tab) 1 tab PO Q8H PRN PRN Reason: Pain, severe (8-10) Stop: 06/11/17 22:06 Pantoprazole Sodium (Protonix Ec Tab) 40 mg PO DAILY [facility] Last Admin: 06/10/17 09:34 Dose: 40 mg - Labs Labs: 06/10/17 07:37 06/10/17 08:39 PT 11.2 SECONDS (9.7-12.2) 06/08/17 17:43 INR 1.0 06/08/17 17:43 APTT 24 SECONDS (21-34) 06/08/17 17:43
[2017-06-11] MEDS: DiphenhydrAMINE 50 mg/ml Inj IVP PRN ×4 (03:30→12:58)
[2017-06-11] MEDS: HYDROmorphone 0.5 mg/0.5 ml ISec IVP PRN ×4 (03:30→12:59)
--- NOTE | 2017-06-11 07:05 | CP.PCM.PN ---
Subjective - Date & Time of Evaluation Date of Evaluation: 06/11/17 Time of Evaluation: 09:00 - Subjective Subjective: PGY3 on medicine Dr. Barrett service: Pt seen and examined at bedside this morning. Pt reports no hemoptysis overnight. No other complaints at the moment. Pt to be discharge home with 7 days of Cipro as per attending. Pt instructed to follow up with outpatient GI and PMD as planned. Objective - Vital Signs/Intake and Output Vital Signs (last 24 hours): Temp Pulse Resp BP Pulse Ox 98.4 F 100 H 20 108/71 98 06/10/17 23:50 06/10/17 23:50 06/10/17 23:50 06/10/17 23:50 06/10/17 23:50 - Medications Medications: Current Medications Ascorbic Acid (Vitamin C 500 Mg Tab) 500 mg PO DAILY [facility] Last Admin: 06/10/17 09:35 Dose: 500 mg Cyanocobalamin (Vitamin B12 1000 Mcg Tab) 1,000 mcg PO DAILY [facility] Last Admin: 06/10/17 09:42 Dose: 1,000 mcg Diphenhydramine HCl (Benadryl) 25 mg IVP Q3 PRN PRN Reason: Itching / Pruritus Last Admin: 06/11/17 06:32 Dose: 25 mg Escitalopram Oxalate (Lexapro) 5 mg PO DAILY [facility] Last Admin: 06/10/17 09:41 Dose: 5 mg Hydromorphone HCl (Dilaudid) 1 mg IVP Q3 PRN PRN Reason: Pain, moderate (4-7) Last Admin: 06/11/17 06:32 Dose: 1 mg Metronidazole (Flagyl) 500 mg in 100 mls @ 100 mls/hr IVPB STAT [facility] Ciprofloxacin (Cipro 400mg/200ml Dsw) 400 mg in 200 mls @ 133 mls/hr IVPB Q12H [facility] Last Admin: 06/10/17 22:29 Dose: 133 mls/hr Lactobacillus Acidophilus (Bacid Acidophilus) 1 cap PO BID [facility] Last Admin: 06/10/17 17:21 Dose: 1 cap Mesalamine (Delzicol) 800 mg PO DAILY [facility] Last Admin: 06/10/17 09:41 Dose: 800 mg Multivitamins (Hexavitamin) 1 tab PO DAILY [facility] Last Admin: 06/10/17 09:35 Dose: 1 tab Oxycodone/Acetaminophen (Percocet 5/325 Mg Tab) 1 tab PO Q8H PRN PRN Reason: Pain, severe (8-10) Stop: 06/11/17 22:06 Pantoprazole Sodium (Protonix Ec Tab) 40 mg PO DAILY [facility] Last Admin: 06/10/17 09:34 Dose: 40 mg - Labs Labs: 06/10/17 07:37 06/10/17 08:39 PT 11.2 SECONDS (9.7-12.2) 06/08/17 17:43 INR 1.0 06/08/17 17:43 APTT 24 SECONDS (21-34) 06/08/17 17:43 - Constitutional Appears: Non-toxic, No Acute Distress - Head Exam Head Exam: NORMAL INSPECTION - Eye Exam Eye Exam: Normal appearance - Respiratory Exam Respiratory Exam: Clear to Ausculation Bilateral, NORMAL BREATHING PATTERN. absent: Wheezes - Cardiovascular Exam Cardiovascular Exam: REGULAR RHYTHM, +S1, +S2. absent: Gallop, Rubs - GI/Abdominal Exam GI & Abdominal Exam: Soft, Normal Bowel Sounds. absent: Tenderness Additional comments: Left colostomy bag with soft brown stool - Back Exam Additional comments: sacral wound appeared clean and stable - Neurological Exam Neurological Exam: Alert, Awake, Oriented x3 Assessment and Plan - Assessment and Plan (Free Text) Assessment: Hematemesis No episodes since admission Hgb stable, no blood seen in colostomy bag Dr. Lopez consulted, help appreciated - no plan for emergent endoscopy - F/U outpatient GI Abscess on left buttock Long history of abscesses in this area ID consult, Dr. Daniel, help appreciated f/u reccs Preliminary cultures are negative Prior admission Culture: Wound cultures (05/21/17): Pseudomonas aeruginosa, Citrobacter freundii, Staph aureus Wound care consult, help appreciated Will discharge with 7 days of Cipro as per attending. Crohn's Disease Loop Colostomy (2016) Home med Delzicol History of anemia Hgb stable, 10.7 today Feosol 325mg PO BID Anxiety Lexapro 5mg PO Daily Hx of DVT/PE Hold home Eliquis 5mg PO BID until cleared by PMD Insomnia Ambien 5mg PO HS PRN All management per Dr. Shiloh Barrett
[2017-06-11 08:07] LABS: BASO # 0.1 K/uL (0.0-0.2); BASO % 0.9 % (0.0-2.0); EOS # 0.5 K/uL (0.0-0.7); EOS % 4.3 % (0.0-4.0); HEMATOCRIT 34.4 % (35.0-51.0); LYMPH # 3.7 K/uL (1.0-4.3); LYMPH % 34.9 % (20.0-40.0); MEAN CELL VOLUME 69.9 fL (80.0-94.0); MEAN CORPUSCULAR HEMOGLOBIN 22.4 pg (27.0-31.0); MEAN PLATELET VOLUME 7.9 fL (7.2-11.7); MONO # 0.9 K/uL (0.0-0.8); MONO % 8.1 % (0.0-10.0); WHITE BLOOD COUNT 10.7 K/uL (4.8-10.8)
[2017-06-11 08:30] LABS: CHLORIDE 93 mmol/L (98-107)
[2017-06-11 08:31] LABS: POTASSIUM 3.9 mmol/L (3.6-5.2); SODIUM 134 mmol/L (132-148)
[2017-06-11 08:33] VITALS: BP 112/74; PULSE 81; TEMP 97.9; O2SAT 96
[2017-06-11 08:33] LABS: ALB/GLOB RATIO 1.1 (1.0-2.1); ALKALINE PHOSPHATASE 115 U/L (38-126); AST/SGOT 36 U/L (17-59); BILIRUBIN,TOTAL 0.6 mg/dL (0.2-1.3); BLOOD UREA NITROGEN 12 mg/dL (9-20); CARBON DIOXIDE 30 mmol/L (22-30); GFR AFRICAN-AMERICAN > 60; TOTAL PROTEIN 8.2 g/dL (6.3-8.3)
[2017-06-11 08:34] LABS: ALT/SGPT 48 U/L (21-72); CALCIUM 9.5 mg/dl (8.6-10.4); GLUCOSE,RANDOM 91 mg/dL (75-110)
[2017-06-11] MEDS: Pantoprazole 40 mg EC Tab PO SCH (10:02)
[2017-06-11] MEDS: Multiple Vitamins Tab PO SCH (10:02)
[2017-06-11] MEDS: Lactobacillus Acidophilus 500 MU Cap PO SCH (11:12)
[2017-06-11] MEDS: Ciprofloxacin 400mg/200ml D5W 400 MG/200 ML BAG IVPB SCH (11:13)
--- NOTE | 2017-06-11 18:54 | CP.PCM.PN ---
Subjective - Date & Time of Evaluation Date of Evaluation: 06/11/17 Time of Evaluation: 08:40 - Subjective Subjective: clinically same Objective - Vital Signs/Intake and Output Vital Signs (last 24 hours): Temp Pulse Resp BP Pulse Ox 97.9 F 81 20 112/74 96 06/11/17 07:00 06/11/17 07:00 06/11/17 07:00 06/11/17 07:00 06/11/17 07:00 Intake and Output: 06/11/17 06/11/17 06:59 18:59 Intake Total 240 Balance 240 - Medications Medications: Current Medications Ascorbic Acid (Vitamin C 500 Mg Tab) 500 mg PO DAILY [facility] Last Admin: 06/11/17 10:02 Dose: 500 mg Cyanocobalamin (Vitamin B12 1000 Mcg Tab) 1,000 mcg PO DAILY [facility] Last Admin: 06/11/17 11:12 Dose: 1,000 mcg Diphenhydramine HCl (Benadryl) 25 mg IVP Q3 PRN PRN Reason: Itching / Pruritus Last Admin: 06/11/17 12:58 Dose: 25 mg Escitalopram Oxalate (Lexapro) 5 mg PO DAILY [facility] Last Admin: 06/11/17 11:12 Dose: 5 mg Hydromorphone HCl (Dilaudid) 1 mg IVP Q3 PRN PRN Reason: Pain, moderate (4-7) Last Admin: 06/11/17 12:59 Dose: 1 mg Metronidazole (Flagyl) 500 mg in 100 mls @ 100 mls/hr IVPB STAT [facility] Ciprofloxacin (Cipro 400mg/200ml Dsw) 400 mg in 200 mls @ 133 mls/hr IVPB Q12H [facility] Last Admin: 06/11/17 11:13 Dose: 133 mls/hr Lactobacillus Acidophilus (Bacid Acidophilus) 1 cap PO BID [facility] Last Admin: 06/11/17 11:12 Dose: 1 cap Mesalamine (Delzicol) 800 mg PO DAILY [facility] Last Admin: 06/11/17 11:12 Dose: 800 mg Multivitamins (Hexavitamin) 1 tab PO DAILY [facility] Last Admin: 06/11/17 10:02 Dose: 1 tab Oxycodone/Acetaminophen (Percocet 5/325 Mg Tab) 1 tab PO Q8H PRN PRN Reason: Pain, severe (8-10) Stop: 06/11/17 22:06 Last Admin: 06/11/17 15:31 Dose: 1 tab Pantoprazole Sodium (Protonix Ec Tab) 40 mg PO DAILY [facility] Last Admin: 06/11/17 10:02 Dose: 40 mg - Labs Labs: 06/11/17 08:00 06/11/17 08:00 PT 11.2 SECONDS (9.7-12.2) 06/08/17 17:43 INR 1.0 06/08/17 17:43 APTT 24 SECONDS (21-34) 06/08/17 17:43 - Constitutional Appears: Well - Head Exam Head Exam: ATRAUMATIC, NORMAL INSPECTION, NORMOCEPHALIC - Eye Exam Eye Exam: EOMI, Normal appearance, PERRL Pupil Exam: NORMAL ACCOMODATION, PERRL - ENT Exam ENT Exam: Mucous Membranes Moist, Normal Exam - Neck Exam Neck Exam: Full ROM, Normal Inspection. absent: Lymphadenopathy - Respiratory Exam Respiratory Exam: Decreased Breath Sounds - Cardiovascular Exam Cardiovascular Exam: REGULAR RHYTHM, +S1, +S2 - GI/Abdominal Exam GI & Abdominal Exam: Soft, Diminished Bowel Sounds - Rectal Exam Rectal Exam: Deferred
== END 2017-06-11 17:00 | disposition home or self-care (01) | DRG 179 ==
LOC: C.ER 18:52 → C.9E 21:12 → C.5S 23:48
PROVIDERS: ADMIT Internal Medicine Nephrology; ATTEND Internal Medicine Nephrology
DX: K50.90 Crohn's disease, unspecified, without complications (principal); K92.0 Hematemesis; I82.C21 Chronic embolism and thrombosis of right internal jugular vein; E87.5 Hyperkalemia; K61.1 Rectal abscess; F41.9 Anxiety disorder, unspecified; Z86.711 Personal history of pulmonary embolism; Z86.718 Personal history of other venous thrombosis and embolism; Z93.3 Colostomy status

== ENCOUNTER 2017-06-19 17:02 | Inpatient (IN) | payer MEDICAID ==
[2017-06-19 17:02] VITALS: BMI 20.6
--- NOTE | 2017-06-19 17:39 | C.PDOC ---
History Of Present Illness 22 Y/O MALE C/O RECURRENT HEMATEMESIS/HEMOPTYSIS. PATIENT ALSO C/O ABSCESS TO BUTTOCK AREA. NOTES HISTORY OF SIMILAR IN THE PAST. Denies fevers, chills, chest pain, SOB. PMHx significant for Crohn's Disease diagnosed 5 years ago, complicated by multiple intraabdominal/pelvic abscesses s/p multiple I&Ds, loop colostomy 04/2016. Recent admission for hematemesis/hemoptysis. Current symptoms similar to last admission. 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 Patient states negative endoscopy 1 month ago per his GI doctor. CHEST CT on 05/22 reviewed: negative for PE Chief Complaint (Nursing): Chest Pain History Per: Patient History/Exam Limitations: no limitations Onset/Duration Of Symptoms: Days Current Symptoms Are (Timing): Still Present Reports Recently: Treated By A Physician, Hospitalized Recent travel outside of the [place]: No Past Medical History Reviewed: Historical Data, Nursing Documentation, Vital Signs Vital Signs: Last Vital Signs Temp 97.7 F 06/19/17 17:07 Pulse 120 H 06/19/17 17:07 Resp 18 06/19/17 17:07 BP 120/83 06/19/17 17:07 Pulse Ox 100 06/19/17 18:20 - Medical History PMH: Crohn's Disease (COLOSTOMY 2015), Depression - [facility] Procedures DRAINAGE OF BACK SUBCU/FASCIA, OPEN APPROACH (10/21/16) DRAINAGE OF BUTTOCK SKIN, EXTERNAL APPROACH, DIAGNOSTIC (09/23/16) DRAINAGE OF BUTTOCK SUBCU/FASCIA, OPEN APPROACH (03/22/17) DRAINAGE OF BUTTOCK SUBCU/FASCIA, OPEN APPROACH, DIAGN (03/22/17) DRAINAGE OF LEFT AXILLA, OPEN APPROACH (12/21/16) DRAINAGE OF PERINEUM SUBCU/FASCIA, OPEN APPROACH (01/30/17) EXCISION OF BACK SKIN, EXTERNAL APPROACH (09/23/16) EXCISION OF BACK SUBCU/FASCIA, OPEN APPROACH (10/21/16) EXCISION OF BUTTOCK SKIN, EXTERNAL APPROACH (03/22/17) EXCISION OF BUTTOCK SUBCU/FASCIA, OPEN APPROACH (10/21/16) EXCISION OF LEFT AXILLARY LYMPHATIC, OPEN APPROACH (12/21/16) EXCISION OF PERINEUM SKIN, EXTERNAL APPROACH (03/22/17) EXTRACTION OF BUTTOCK SKIN, EXTERNAL APPROACH (09/23/16) EXTRACTION OF PERINEUM SUBCU/FASCIA, OPEN APPROACH (01/30/17) GROUP PSYCHOTHERAPY (11/25/16) INDIVIDUAL PSYCHOTHERAPY, COGNITIVE-BEHAVIORAL (11/25/16) INDIVIDUAL PSYCHOTHERAPY, SUPPORTIVE (05/23/17) INSERTION OF INFUSION DEV INTO SUP VENA CAVA, PERC APPROACH (05/23/17) REMOVAL OF INFUSION DEV FROM GREAT VESSEL, DISTRIBUTION COORDINATOR APPROACH (12/21/16) ULTRASONOGRAPHY OF SUPERIOR VENA CAVA, GUIDANCE (05/23/17) Family History: States: Unknown Family Hx - Social History Hx Alcohol Use: No Hx Substance Use: No - Immunization History Hx Tetanus Toxoid Vaccination: No Hx Influenza Vaccination: No Hx Pneumococcal Vaccination: No Review Of Systems Except As Marked, All Systems Reviewed And Found Negative. Constitutional: Negative for: Fever, Chills Cardiovascular: Negative for: Chest Pain Respiratory: Positive for: Hemoptysis. Negative for: Wheezing Gastrointestinal: Positive for: Vomiting, Diarrhea, Hematemesis Genitourinary: Negative for: Dysuria Skin: Negative for: Rash Neurological: Negative for: Dizziness Physical Exam - Physical Exam Appears: Non-toxic, No Acute Distress Skin: Normal Color, Warm, Dry, No Pale Head: Atraumatic, Normacephalic Oral Mucosa: Moist Chest: Symmetrical Cardiovascular: Rhythm Regular Respiratory: Normal Breath Sounds, No Rales, No Rhonchi, No Wheezing Gastrointestinal/Abdominal: No Tenderness, Other (Colostomy bag with normal stool, no gross blood) Back: Normal Inspection Extremity: Normal ROM, Capillary Refill (< 2 ec. ) Neurological/Psych: Oriented x3 ED Course And Treatment - Laboratory Results Result Diagrams: 06/19/17 18:16 ECG: Interpreted By [facility] ECG Rhythm: Sinus Tachycardia Rate From EC O2 Sat by Pulse Oximetry: 100 (RA) Pulse Ox Interpretation: Normal Progress - Re-Evaluation Re-evaluation Note: 06/19/17 17:46 D/W DR Shiloh WALKER WILL ADMIT 06/19/17 18:19 PT REQUESTING DILAUDID AND BENADRYL. SIM NARCOTIC REQUESTS DURING PRIOR VISITS. VSS NO RECUR BLEEDING SX - Data Reviewed Data Reviewed: Lab, Diagnostic imaging, EKG, Old records Disposition Counseled Patient/Family Regarding: Studies Performed, Diagnosis - Disposition Disposition: HOSPITALIZED Disposition Time: 18:28 Condition: STABLE Forms: [facility] (Faroese) - Clinical Impression Clinical Impression: Abscess, Hematemesis with nausea - Scribe Statement The provider has reviewed the documentation as recorded by the Scribe SM All medical record entries made by the Scribe were at my direction and personally dictated by me. I have reviewed the chart and agree that the record accurately reflects my personal performance of the history, physical exam, medical decision making, and the department course for this patient. I have also personally directed, reviewed, and agree with the discharge instructions and disposition. Decision To Admit - Pt Status Changed To: Hospital Disposition Of: Observation - . Bed Request Type: Telemetry Admitting Physician: Osvaldo Walker Patient Diagnosis: Abscess, Hematemesis with nausea
[2017-06-19 18:19] LABS: BASO # 0.1 K/uL (0.0-0.2); BASO % 0.8 % (0.0-2.0); EOS # 0.2 K/uL (0.0-0.7); EOS % 1.5 % (0.0-4.0); HEMATOCRIT 35.1 % (35.0-51.0); LYMPH # 4.9 K/uL (1.0-4.3); LYMPH % 32.7 % (20.0-40.0); MEAN CELL VOLUME 69.1 fL (80.0-94.0); MEAN CORPUSCULAR HEMOGLOBIN 21.4 pg (27.0-31.0); MEAN CORPUSCULAR HGB CONC 30.9 g/dL (33.0-37.0); MEAN PLATELET VOLUME 8.4 fL (7.2-11.7); MONO # 0.8 K/uL (0.0-0.8); MONO % 5.6 % (0.0-10.0); RED CELL DISTRIBUTION WIDTH 18.5 % (11.5-14.5); WHITE BLOOD COUNT 15.1 K/uL (4.8-10.8)
[2017-06-19 18:33] LABS: CHLORIDE 97 mmol/L (98-107); POTASSIUM 3.8 mmol/L (3.6-5.2); SODIUM 132 mmol/L (132-148)
[2017-06-19 18:35] LABS: GFR AFRICAN-AMERICAN > 60
[2017-06-19 18:36] LABS: BLOOD UREA NITROGEN 18 mg/dL (9-20); CALCIUM 8.7 mg/dl (8.6-10.4); CARBON DIOXIDE 24 mmol/L (22-30); GLUCOSE,RANDOM 72 mg/dL (75-110)
--- NOTE | 2017-06-19 18:40 | RAD ---
HISTORY: cough COMPARISON: Comparison made with chest radiograph and CTA chest both dated dated 05/22/2017 TECHNIQUE: Chest PA and lateral FINDINGS: LUNGS: No active pulmonary disease. PLEURA: No significant pleural effusion identified. No pneumothorax apparent. CARDIOVASCULAR: Normal. OSSEOUS STRUCTURES: No significant abnormalities. VISUALIZED UPPER ABDOMEN: Normal. OTHER FINDINGS: None. IMPRESSION: No active disease.
--- NOTE | 2017-06-19 19:19 | CP.PCM.HP ---
Past Patient History - Infectious Disease Hx of Infectious Diseases: None - Past Medical History & Family History Past Medical History?: Yes - Past Social History Smoking Status: Never Smoked - CARDIAC Hx Cardiac Disorders: No - PULMONARY Hx Respiratory Disorders: No - NEUROLOGICAL Hx Neurological Disorder: No - HEENT Hx HEENT Problems: No - RENAL Hx Chronic Kidney Disease: No - ENDOCRINE/METABOLIC Hx Endocrine Disorders: No - HEMATOLOGICAL/ONCOLOGICAL Hx Blood Disorders: No - INTEGUMENTARY Hx Dermatological Problems: Yes Other/Comment: Perineal wound. Rectal abcess - MUSCULOSKELETAL/RHEUMATOLOGICAL Hx Musculoskeletal Disorders: No Hx Falls: No - GASTROINTESTINAL Hx Crohn's Disease: Yes (COLOSTOMY 2016) - GENITOURINARY/GYNECOLOGICAL Hx Genitourinary Disorders: No - PSYCHIATRIC Hx Depression: Yes Hx Substance Use: No - SURGICAL HISTORY Hx Surgeries: Yes (SEE COMMENT) Other/Comment: LOOP COLOSTOMY. Perineal wound. Right upper arm PICC line. COLON RESECTION - ANESTHESIA Hx Anesthesia: Yes Hx Anesthesia Reactions: No Hx Malignant Hyperthermia: No Meds Allergies/Adverse Reactions: Allergies Allergy/AdvReac Type Severity Reaction Status Date / Time morphine Allergy Severe ITCHING Verified 06/19/17 17:10 Physical Exam - Constitutional Appears: Well - Head Exam Head Exam: ATRAUMATIC, NORMAL INSPECTION, NORMOCEPHALIC - Eye Exam Eye Exam: EOMI, Normal appearance, PERRL Pupil Exam: NORMAL ACCOMODATION, PERRL - ENT Exam ENT Exam: Mucous Membranes Moist, Normal Exam - Neck Exam Neck exam: Positive for: Normal Inspection - Respiratory Exam Respiratory Exam: Decreased Breath Sounds - Cardiovascular Exam Cardiovascular Exam: REGULAR RHYTHM, +S1, +S2 - GI/Abdominal Exam GI & Abdominal Exam: Diminished Bowel Sounds, Soft - Rectal Exam Rectal Exam: Deferred Results - Vital Signs Recent Vital Signs: Last Vital Signs Temp 97.7 F 06/19/17 17:07 Pulse 120 H 06/19/17 17:07 Resp 18 06/19/17 17:07 BP 120/83 06/19/17 17:07 Pulse Ox 100 06/19/17 18:29 - Labs Result Diagrams: 06/19/17 18:16 06/19/17 18:16 Labs: Laboratory Results - last 24 hr 06/19/17 06/19/17 06/19/17 18:00 18:16 18:16 WBC 15.1 H RBC 5.08 Hgb 10.9 L Hct 35.1 MCV 69.1 L MCH 21.4 L MCHC 30.9 L RDW 18.5 H Plt Count 477 H D MPV 8.4 Neut % (Auto) 59.4 Lymph % (Auto) 32.7 Riley % (Auto) 5.6 Eos % (Auto) 1.5 Baso % (Auto) 0.8 Neut # 8.9 H Lymph # 4.9 H Riley # 0.8 Eos # 0.2 Baso # 0.1 PT 11.3 INR 1.0 APTT 29 Sodium Potassium Chloride Carbon Dioxide Anion Gap BUN Creatinine Est GFR ( Amer) Est GFR (Non-Af Amer) Random Glucose Calcium Blood Type B POSITIVE Antibody Screen Negative 06/19/17 18:16 WBC RBC Hgb Hct MCV MCH MCHC RDW Plt Count MPV Neut % (Auto) Lymph % (Auto) Riley % (Auto) Eos % (Auto) Baso % (Auto) Neut # Lymph # Riley # Eos # Baso # PT INR APTT Sodium 132 Potassium 3.8 Chloride 97 L Carbon Dioxide 24 Anion Gap 14 BUN 18 Creatinine 0.7 L Est GFR ( Amer) > 60 Est GFR (Non-Af Amer) > 60 Random Glucose 72 L Calcium 8.7 Blood Type Antibody Screen
[2017-06-19] MEDS ORDERED: DiphenhydrAMINE 50 mg/ml Inj ONE (21:24)
[2017-06-19] MEDS: DiphenhydrAMINE 50 mg/ml Inj IVP PRN (21:32)
[2017-06-19] MEDS: metroNIDAZOLE IV 500 mg/100 ml 500 MG/100 ML BAG IVPB SCH (22:59)
[2017-06-19] MEDS ORDERED: metroNIDAZOLE IV 500 mg/100 ml 500 MG/100 ML BAG ONE (23:03)
[2017-06-20] MEDS: Ciprofloxacin 400mg/200ml D5W 400 MG/200 ML BAG IVPB SCH ×3 (00:18→22:33)
[2017-06-20] MEDS: DiphenhydrAMINE 50 mg/ml Inj IVP PRN ×5 (01:40→23:02)
[2017-06-20] MEDS ORDERED: HYDROmorphone 0.5 mg/0.5 ml ISec IVP PRN (05:34)
[2017-06-20] MEDS: metroNIDAZOLE IV 500 mg/100 ml 500 MG/100 ML BAG IVPB SCH ×3 (06:34→22:33)
--- NOTE | 2017-06-20 07:23 | CP.PCM.CON ---
<Ketih Marr - Last Filed: 06/20/17 08:26> History of Present Illness - History of Present Illness History of Present Illness: General Surgery Consult Re: abscess 22M presented to ED yesterday after an EGD at [facility] (pt reports it was found to be normal) for eval of hemopytysis/hematemesis which has happened on multiple occasions this month. Also has multiple areas of painful excoriation in the gluteal cleft to the perineum. Pt seen multiple times for similar complaints in the past. Today patient complains of diarrhea both in the colostomy bag and from his rectum. Reports subjective fevers. Pt denies chills, fatigue, palpitations, SOB, cough, nausea, constipation. Pt requesting PICC line PMH: Crohns Disease; Pulmonary Embolus PSH: Colostomy (2015); Colon Resection (2011), Multiple I&Ds of gluteal abscesses SH: No tobacco, EtOh, or Drug use All: Morphine Meds: Hydromorphone, Humira, Remicade, Ferrous Sulfate, OsCal, Vitamin D, Vitamin B12 Review of Systems - Review of Systems All systems: reviewed and no additional remarkable complaints except (as per HPI ) Past Patient History - Infectious Disease Hx of Infectious Diseases: None - Past Medical History & Family History Past Medical History?: Yes - Past Social History Smoking Status: Never Smoked - CARDIAC Hx Cardiac Disorders: No - PULMONARY Hx Respiratory Disorders: No - NEUROLOGICAL Hx Neurological Disorder: No - HEENT Hx HEENT Problems: No - RENAL Hx Chronic Kidney Disease: No - ENDOCRINE/METABOLIC Hx Endocrine Disorders: No - HEMATOLOGICAL/ONCOLOGICAL Hx Blood Disorders: No - INTEGUMENTARY Hx Dermatological Problems: Yes Other/Comment: Perineal wound. Rectal abcess - MUSCULOSKELETAL/RHEUMATOLOGICAL Hx Musculoskeletal Disorders: No Hx Falls: No - GASTROINTESTINAL Hx Crohn's Disease: Yes (COLOSTOMY 2015) - GENITOURINARY/GYNECOLOGICAL Hx Genitourinary Disorders: No - PSYCHIATRIC Hx Depression: Yes Hx Substance Use: No - SURGICAL HISTORY Hx Surgeries: Yes (SEE COMMENT) Other/Comment: LOOP COLOSTOMY. Perineal wound. Right upper arm PICC line. COLON RESECTION - ANESTHESIA Hx Anesthesia: Yes Hx Anesthesia Reactions: No Hx Malignant Hyperthermia: No Meds Allergies/Adverse Reactions: Allergies Allergy/AdvReac Type Severity Reaction Status Date / Time morphine Allergy Severe ITCHING Verified 06/19/17 17:10 - Medications Medications: Current Medications Ascorbic Acid (Vitamin C 500 Mg Tab) 500 mg PO DAILY [facility] Cyanocobalamin (Vitamin B12 1000 Mcg Tab) 1,000 mcg PO DAILY [facility] Diphenhydramine HCl (Benadryl) 25 mg IVP Q4 PRN PRN Reason: Pain, moderate (4-7) Last Admin: 06/20/17 06:09 Dose: 25 mg Escitalopram Oxalate (Lexapro) 5 mg PO DAILY [facility] Ferrous Sulfate (Feosol) 325 mg PO BID [facility] Home Med (Mesalamine [Asacol Hd 800mg]) 800 mg PO DAILY [facility] Hydromorphone HCl (Dilaudid) 2 mg IVP Q4 PRN PRN Reason: Pain, moderate (4-7) Last Admin: 06/20/17 01:40 Dose: 2 mg Ciprofloxacin (Cipro 400mg/200ml Dsw) 400 mg in 200 mls @ 133 mls/hr IVPB Q12H [facility] Last Admin: 06/20/17 00:18 Dose: 133 mls/hr Metronidazole (Flagyl) 500 mg in 100 mls @ 100 mls/hr IVPB Q8 [facility] Last Admin: 06/19/17 22:59 Dose: 100 mls/hr Lactobacillus Acidophilus (Bacid Acidophilus) 1 cap PO BID [facility] Multivitamins (Hexavitamin) 1 tab PO DAILY [facility] Pneumococcal Polyvalent Vaccine (Pneumovax 23 Vaccine) 0.5 ml IM .ONCE ONE Stop: 06/23/17 14:01 Physical Exam - Constitutional Appears: Non-toxic, No Acute Distress - Head Exam Head Exam: ATRAUMATIC, NORMOCEPHALIC - Eye Exam Eye Exam: EOMI. absent: Scleral icterus - ENT Exam ENT Exam: Mucous Membranes Moist Additional comments: trachea midline - Respiratory Exam Respiratory Exam: NORMAL BREATHING PATTERN. absent: Respiratory Distress - Cardiovascular Exam Cardiovascular Exam: RRR, +S1, +S2 - GI/Abdominal Exam GI & Abdominal Exam: Soft, Tenderness (mild around ostomy) Additional comments: ostomy pink, functioning - Rectal Exam Rectal Exam: Deferred (due to pain). absent: NORMAL INSPECTION (excoriated, raw gluteal cleft skin. Mucoid drainage from rectum) - Extremities Exam Extremities exam: Negative for: calf tenderness, pedal edema - Back Exam Back exam: CVA tenderness (L), CVA tenderness (R) - Neurological Exam Neurological exam: Alert, Oriented x3 - Skin Skin Exam: Dry, Warm Results - Vital Signs Recent Vital Signs: Last Vital Signs Temp 97.9 F 06/19/17 23:55 Pulse 69 06/20/17 00:41 Resp 20 06/19/17 23:55 BP 116/66 06/19/17 23:55 Pulse Ox 99 06/19/17 23:55 - Labs Result Diagrams: 06/19/17 18:16 06/19/17 18:16 Labs: Laboratory Results - last 24 hr 06/19/17 06/19/17 06/19/17 18:00 18:16 18:16 WBC 15.1 H RBC 5.08 Hgb 10.9 L Hct 35.1 MCV 69.1 L MCH 21.4 L MCHC 30.9 L RDW 18.5 H Plt Count 477 H D MPV 8.4 Neut % (Auto) 59.4 Lymph % (Auto) 32.7 [place] % (Auto) 5.6 Eos % (Auto) 1.5 Baso % (Auto) 0.8 Neut # 8.9 H Lymph # 4.9 H [place] # 0.8 Eos # 0.2 Baso # 0.1 PT 11.3 INR 1.0 APTT 29 Sodium Potassium Chloride Carbon Dioxide Anion Gap BUN Creatinine Est GFR ( Amer) Est GFR (Non-Af Amer) Random Glucose Calcium Blood Type B POSITIVE Antibody Screen Negative 06/19/17 18:16 WBC RBC Hgb Hct MCV MCH MCHC RDW Plt Count MPV Neut % (Auto) Lymph % (Auto) [place] % (Auto) Eos % (Auto) Baso % (Auto) Neut # Lymph # [place] # Eos # Baso # PT INR APTT Sodium 132 Potassium 3.8 Chloride 97 L Carbon Dioxide 24 Anion Gap 14 BUN 18 Creatinine 0.7 L Est GFR ( Amer) > 60 Est GFR (Non-Af Amer) > 60 Random Glucose 72 L Calcium 8.7 Blood Type Antibody Screen Assessment & Plan - Assessment and Plan (Free Text) Assessment: 22M with Crohn's with perirectal pain/drainage Plan: CT abd/pelvis with PO and IV contrast Pain control Cipro, flagyl D/W Dr. Claudia Marr PGY4 <Temo Taylor B - Last Filed: 06/21/17 18:32> Meds - Medications Medications: Current Medications Ascorbic Acid (Vitamin C 500 Mg Tab) 500 mg PO DAILY [facility] Last Admin: 06/21/17 10:03 Dose: 500 mg Cyanocobalamin (Vitamin B12 1000 Mcg Tab) 1,000 mcg PO DAILY [facility] Last Admin: 06/21/17 10:02 Dose: 1,000 mcg Diphenhydramine HCl (Benadryl) 25 mg IVP Q4 PRN PRN Reason: Itching / Pruritus Last Admin: 06/21/17 16:04 Dose: 25 mg Escitalopram Oxalate (Lexapro) 5 mg PO DAILY [facility] Last Admin: 06/21/17 10:02 Dose: 5 mg Ferrous Sulfate (Feosol) 325 mg PO BID [facility] Last Admin: 06/21/17 17:23 Dose: 325 mg Hydromorphone HCl (Dilaudid) 2 mg IVP Q3 [facility] Last Admin: 06/21/17 16:04 Dose: 2 mg Ciprofloxacin (Cipro 400mg/200ml Dsw) 400 mg in 200 mls @ 133 mls/hr IVPB Q12H [facility] Last Admin: 06/21/17 10:09 Dose: 133 mls/hr Metronidazole (Flagyl) 500 mg in 100 mls @ 100 mls/hr IVPB Q8 [facility] Last Admin: 06/21/17 14:08 Dose: 100 mls/hr Iohexol (Omnipaque 240 (50 Ml)) 50 ml PO ONCE PRN PRN Reason: FOR CAT SCAN Last Admin: 06/20/17 12:26 Dose: 50 ml Lactobacillus Acidophilus (Bacid Acidophilus) 1 cap PO BID [facility] Last Admin: 06/21/17 17:24 Dose: 1 cap Loperamide HCl (Imodium) 2 mg PO TID PRN PRN Reason: Diarrhea Last Admin: 06/21/17 17:23 Dose: 2 mg Mesalamine (Delzicol) 800 mg PO DAILY [facility] Last Admin: 06/21/17 10:03 Dose: 800 mg Multivitamins (Hexavitamin) 1 tab PO DAILY [facility] Last Admin: 06/21/17 10:02 Dose: 1 tab Pneumococcal Polyvalent Vaccine (Pneumovax 23 Vaccine) 0.5 ml IM .ONCE ONE Stop: 06/23/17 14:01 Results - Vital Signs Recent Vital Signs: Last Vital Signs Temp 97.6 F 06/21/17 07:00 Pulse 77 06/21/17 08:30 Resp 20 06/21/17 07:00 BP 100/56 L 06/21/17 07:00 Pulse Ox 99 06/21/17 07:00 - Labs Result Diagrams: 06/21/17 11:10 06/19/17 18:16 Labs: Laboratory Results - last 24 hr 06/21/17 11:10 WBC 13.6 H RBC 5.28 Hgb 11.2 L Hct 37.0 MCV 70.0 L MCH 21.2 L MCHC 30.3 L RDW 18.3 H Plt Count 433 H MPV 8.1 Neut % (Auto) 43.5 L Lymph % (Auto) 43.9 H [place] % (Auto) 6.6 Eos % (Auto) 5.2 H Baso % (Auto) 0.8 Neut # 5.9 Lymph # 6.0 H [place] # 0.9 H Eos # 0.7 Baso # 0.1 Attending/Attestation - Attestation I have personally seen and examined this patient.: Yes I have fully participated in the care of the patient.: Yes I have reviewed all pertinent clinical information: Yes Notes (Text): Pt was seen and examined at bedside Agree with above note and assessment Pt with crohns dis and perineal abscess Upper GI bleed Labs and radiology reviewed C/w IV antibiotics GI consult Plan d.w pt in detail Risk and benefit explaine in detail.
[2017-06-20] MEDS: HYDROmorphone 0.5 mg/0.5 ml ISec IVP SCH ×5 (09:57→23:00)
[2017-06-20] MEDS ORDERED: MESALAMINE 800 MG PO SCH (10:00)
[2017-06-20] MEDS: Multiple Vitamins Tab PO SCH (10:04)
[2017-06-20] MEDS: Lactobacillus Acidophilus 500 MU Cap PO SCH ×2 (10:04→17:36)
--- NOTE | 2017-06-20 10:30 | CP.PCM.PN ---
Subjective - Date & Time of Evaluation Date of Evaluation: 06/20/17 Time of Evaluation: 09:20 - Subjective Subjective: clinically same Objective - Vital Signs/Intake and Output Vital Signs (last 24 hours): Temp Pulse Resp BP Pulse Ox 97.9 F 69 20 116/66 99 06/19/17 23:55 06/20/17 00:41 06/19/17 23:55 06/19/17 23:55 06/19/17 23:55 - Medications Medications: Current Medications Ascorbic Acid (Vitamin C 500 Mg Tab) 500 mg PO DAILY [facility] Last Admin: 06/20/17 10:04 Dose: 500 mg Cyanocobalamin (Vitamin B12 1000 Mcg Tab) 1,000 mcg PO DAILY [facility] Last Admin: 06/20/17 10:04 Dose: 1,000 mcg Diphenhydramine HCl (Benadryl) 25 mg IVP Q4 PRN PRN Reason: Pain, moderate (4-7) Last Admin: 06/20/17 10:07 Dose: 25 mg Escitalopram Oxalate (Lexapro) 5 mg PO DAILY [facility] Last Admin: 06/20/17 10:04 Dose: 5 mg Ferrous Sulfate (Feosol) 325 mg PO BID [facility] Last Admin: 06/20/17 10:03 Dose: 325 mg Home Med (Mesalamine [Asacol Hd 800mg]) 800 mg PO DAILY [facility] Hydromorphone HCl (Dilaudid) 2 mg IVP Q3 [facility] Last Admin: 06/20/17 09:57 Dose: 2 mg Ciprofloxacin (Cipro 400mg/200ml Dsw) 400 mg in 200 mls @ 133 mls/hr IVPB Q12H [facility] Last Admin: 06/20/17 00:18 Dose: 133 mls/hr Metronidazole (Flagyl) 500 mg in 100 mls @ 100 mls/hr IVPB Q8 [facility] Last Admin: 06/19/17 22:59 Dose: 100 mls/hr Lactobacillus Acidophilus (Bacid Acidophilus) 1 cap PO BID [facility] Last Admin: 06/20/17 10:04 Dose: 1 cap Multivitamins (Hexavitamin) 1 tab PO DAILY [facility] Last Admin: 06/20/17 10:04 Dose: 1 tab Pneumococcal Polyvalent Vaccine (Pneumovax 23 Vaccine) 0.5 ml IM .ONCE ONE Stop: 06/23/17 14:01 - Labs Labs: 06/19/17 18:16 06/19/17 18:16 PT 11.3 SECONDS (9.7-12.2) 06/19/17 18:16 INR 1.0 06/19/17 18:16 APTT 29 SECONDS (21-34) 06/19/17 18:16 - Constitutional Appears: Well - Head Exam Head Exam: ATRAUMATIC, NORMAL INSPECTION, NORMOCEPHALIC - Eye Exam Eye Exam: EOMI, Normal appearance, PERRL Pupil Exam: NORMAL ACCOMODATION, PERRL - ENT Exam ENT Exam: Mucous Membranes Moist, Normal Exam - Neck Exam Neck Exam: Full ROM, Normal Inspection. absent: Lymphadenopathy - Respiratory Exam Respiratory Exam: Decreased Breath Sounds - Cardiovascular Exam Cardiovascular Exam: REGULAR RHYTHM, +S1, +S2 - GI/Abdominal Exam GI & Abdominal Exam: Soft, Diminished Bowel Sounds - Rectal Exam Rectal Exam: Deferred
[2017-06-20] MEDS ORDERED: Iohexol 240 (50 ml) PO PRN (12:18)
[2017-06-20] MEDS ORDERED: Iodixanol 320 mg/ml 150 ml Bottle IV ONE (15:20)
--- NOTE | 2017-06-20 17:15 | CT ---
PROCEDURE: CT Abdomen and Pelvis with contrast HISTORY: gluteal abscess, intestinal fistula COMPARISON: None. TECHNIQUE: Multiple contiguous axial images were performed through the abdomen and pelvis with the use of intravenous contrast. Subsequently, sagittal and coronal reformatted images were obtained. Radiation dose: Total exam DLP = four hundred forty-two mGy-cm. This CT exam was performed using one or more of the following dose reduction techniques: Automated exposure control, adjustment of the mA and/or kV according to patient size, and/or use of iterative reconstruction technique. FINDINGS: LOWER THORAX: Unremarkable. LIVER: Mild fatty infiltration of the liver. GALLBLADDER AND BILE DUCTS: Unremarkable. PANCREAS: Unremarkable. No gross lesion or ductal dilatation. SPLEEN: Unremarkable. ADRENALS: Unremarkable. No mass. KIDNEYS AND URETERS: Unremarkable. No hydronephrosis. No solid mass. VASCULATURE: Unremarkable. No aortic aneurysm. BOWEL: Postsurgical changes in the bowel with a left lower quadrant ostomy in place. Visualized sigmoid colon extending to the level of the ostomy appears underdistended and or mildly thickened. Clinical correlation. Some fluid-filled distension of the distal descending colon extending into the ostomy. APPENDIX: Not well visualized. PERITONEUM: Unremarkable. No free fluid. No free air. LYMPH NODES: Shotty inguinal and para-aortic lymph nodes. [place] mesenteric lymph nodes. BLADDER: Under distended urinary bladder. REPRODUCTIVE: Unremarkable. BONES: Degenerative changes in the spine and bilateral SI joints. OTHER FINDINGS: Suggestion of an abscess and or phlegmon collection seen extending from the posterior subcutaneous soft tissues at the level of the superior sacrum measuring 1.8 x 1.9 x 8.7 centimeters extending in a transverse oblique orientation abutting the distal sacrum/ coccyx. Underlying acute infectious and or inflammatory changes of the osseous distal sacrum/ coccyx cannot entirely be excluded. Correlation with MRI may be helpful to exclude osteomyelitis clinically indicated. IMPRESSION: Suggestion of an abscess and or phlegmon collection seen extending from the posterior subcutaneous soft tissues at the level of the superior sacrum measuring 1.8 x 1.9 x 8.7 centimeters extending in a transverse oblique orientation abutting the distal sacrum/ coccyx. Underlying acute infectious and or inflammatory changes of the osseous distal sacrum/ coccyx cannot entirely be excluded. Correlation with MRI may be helpful to exclude osteomyelitis if clinically indicated. Postsurgical changes in the bowel with a left lower quadrant ostomy in place. Visualized sigmoid colon extending to the level of the ostomy appears underdistended and or mildly thickened. Clinical correlation. Some fluid-filled distension of the distal descending colon extending into the ostomy. Fatty infiltration of the liver.
[2017-06-21] MEDS: HYDROmorphone 0.5 mg/0.5 ml ISec IVP SCH ×8 (02:13→22:12)
[2017-06-21] MEDS: DiphenhydrAMINE 50 mg/ml Inj IVP PRN ×4 (05:26→22:11)
[2017-06-21] MEDS: Lactobacillus Acidophilus 500 MU Cap PO SCH ×2 (10:02→17:24)
[2017-06-21] MEDS: Multiple Vitamins Tab PO SCH (10:02)
[2017-06-21] MEDS: Ciprofloxacin 400mg/200ml D5W 400 MG/200 ML BAG IVPB SCH ×2 (10:09→22:17)
[2017-06-21 11:19] LABS: BASO # 0.1 K/uL (0.0-0.2); BASO % 0.8 % (0.0-2.0); EOS # 0.7 K/uL (0.0-0.7); EOS % 5.2 % (0.0-4.0); LYMPH % 43.9 % (20.0-40.0); MEAN CORPUSCULAR HEMOGLOBIN 21.2 pg (27.0-31.0); MEAN CORPUSCULAR HGB CONC 30.3 g/dL (33.0-37.0); MEAN PLATELET VOLUME 8.1 fL (7.2-11.7); MONO # 0.9 K/uL (0.0-0.8); MONO % 6.6 % (0.0-10.0); RED CELL DISTRIBUTION WIDTH 18.3 % (11.5-14.5); WHITE BLOOD COUNT 13.6 K/uL (4.8-10.8)
[2017-06-21] MEDS: metroNIDAZOLE IV 500 mg/100 ml 500 MG/100 ML BAG IVPB SCH ×2 (14:08→21:34)
--- NOTE | 2017-06-21 15:33 | CP.PCM.PN ---
<Li Magallanes - Last Filed: 06/21/17 15:28> Subjective - Date & Time of Evaluation Date of Evaluation: 06/21/17 Time of Evaluation: 07:00 - Subjective Subjective: GENERAL SURGERY PROGRESS NOTE FOR DR. TAYLOR Patient seen and examined at bedside. He states that he does not have much appetite. He complains of diarrhea in the ostomy. He reports abdominal pain and buttock pain at top of sacrum. He reports having BMs from his rectum still. Objective - Vital Signs/Intake and Output Vital Signs (last 24 hours): Temp Pulse Resp BP Pulse Ox 97.6 F 77 20 100/56 L 99 06/21/17 07:00 06/21/17 08:30 06/21/17 07:00 06/21/17 07:00 06/21/17 07:00 - Medications Medications: Current Medications Ascorbic Acid (Vitamin C 500 Mg Tab) 500 mg PO DAILY [facility] Last Admin: 06/21/17 10:03 Dose: 500 mg Cyanocobalamin (Vitamin B12 1000 Mcg Tab) 1,000 mcg PO DAILY [facility] Last Admin: 06/21/17 10:02 Dose: 1,000 mcg Diphenhydramine HCl (Benadryl) 25 mg IVP Q4 PRN PRN Reason: Itching / Pruritus Escitalopram Oxalate (Lexapro) 5 mg PO DAILY [facility] Last Admin: 06/21/17 10:02 Dose: 5 mg Ferrous Sulfate (Feosol) 325 mg PO BID [facility] Last Admin: 06/21/17 10:03 Dose: 325 mg Hydromorphone HCl (Dilaudid) 2 mg IVP Q3 [facility] Last Admin: 06/21/17 14:10 Dose: Not Given Ciprofloxacin (Cipro 400mg/200ml Dsw) 400 mg in 200 mls @ 133 mls/hr IVPB Q12H [facility] Last Admin: 06/21/17 10:09 Dose: 133 mls/hr Metronidazole (Flagyl) 500 mg in 100 mls @ 100 mls/hr IVPB Q8 [facility] Last Admin: 06/21/17 14:08 Dose: 100 mls/hr Iohexol (Omnipaque 240 (50 Ml)) 50 ml PO ONCE PRN PRN Reason: FOR CAT SCAN Last Admin: 06/20/17 12:26 Dose: 50 ml Lactobacillus Acidophilus (Bacid Acidophilus) 1 cap PO BID [facility] Last Admin: 06/21/17 10:02 Dose: 1 cap Mesalamine (Delzicol) 800 mg PO DAILY [facility] Last Admin: 06/21/17 10:03 Dose: 800 mg Multivitamins (Hexavitamin) 1 tab PO DAILY [facility] Last Admin: 06/21/17 10:02 Dose: 1 tab Pneumococcal Polyvalent Vaccine (Pneumovax 23 Vaccine) 0.5 ml IM .ONCE ONE Stop: 06/23/17 14:01 - Labs Labs: 06/21/17 11:10 06/19/17 18:16 PT 11.3 SECONDS (9.7-12.2) 06/19/17 18:16 INR 1.0 06/19/17 18:16 APTT 29 SECONDS (21-34) 06/19/17 18:16 - Constitutional Appears: Non-toxic, No Acute Distress - Respiratory Exam Respiratory Exam: NORMAL BREATHING PATTERN. absent: Respiratory Distress - Cardiovascular Exam Cardiovascular Exam: +S1, +S2 - GI/Abdominal Exam GI & Abdominal Exam: Soft. absent: Distended, Tenderness Additional comments: Ostomy bag with liquid stool - Skin Additional comments: Superior sacral area with fluctuance and tenderness noted, no erythema or pus seen Assessment and Plan - Assessment and Plan (Free Text) Assessment: 22yo M with Crohn's and abscess - Afebrile, VSS - WBC 13.6, Hgb 11.6 - Continue Abx per ID - CT with PO & IV contrast: abscess or phlegmon extending from posterior subcutaneous soft tissue at level of superior sacrum ~1.8x1.9x8.7cm extending in a transverse oblique orientation abutting the distal sacrum/coccyx - OR tomorrow for I&D of abscess - Local anesthesia only, does not need to be NPO - Loperimide for diarrhea - Discussed plan with Dr. Claudia Magallanes PGY-3 <Temo Taylor - Last Filed: 06/21/17 18:36> Objective - Vital Signs/Intake and Output Vital Signs (last 24 hours): Temp Pulse Resp BP Pulse Ox 97.6 F 77 20 100/56 L 99 06/21/17 07:00 06/21/17 08:30 06/21/17 07:00 06/21/17 07:00 06/21/17 07:00 - Medications Medications: Current Medications Ascorbic Acid (Vitamin C 500 Mg Tab) 500 mg PO DAILY [facility] Last Admin: 06/21/17 10:03 Dose: 500 mg Cyanocobalamin (Vitamin B12 1000 Mcg Tab) 1,000 mcg PO DAILY [facility] Last Admin: 06/21/17 10:02 Dose: 1,000 mcg Diphenhydramine HCl (Benadryl) 25 mg IVP Q4 PRN PRN Reason: Itching / Pruritus Last Admin: 06/21/17 16:04 Dose: 25 mg Escitalopram Oxalate (Lexapro) 5 mg PO DAILY [facility] Last Admin: 06/21/17 10:02 Dose: 5 mg Ferrous Sulfate (Feosol) 325 mg PO BID [facility] Last Admin: 06/21/17 17:23 Dose: 325 mg Hydromorphone HCl (Dilaudid) 2 mg IVP Q3 [facility] Last Admin: 06/21/17 16:04 Dose: 2 mg Ciprofloxacin (Cipro 400mg/200ml Dsw) 400 mg in 200 mls @ 133 mls/hr IVPB Q12H [facility] Last Admin: 06/21/17 10:09 Dose: 133 mls/hr Metronidazole (Flagyl) 500 mg in 100 mls @ 100 mls/hr IVPB Q8 [facility] Last Admin: 06/21/17 14:08 Dose: 100 mls/hr Iohexol (Omnipaque 240 (50 Ml)) 50 ml PO ONCE PRN PRN Reason: FOR CAT SCAN Last Admin: 06/20/17 12:26 Dose: 50 ml Lactobacillus Acidophilus (Bacid Acidophilus) 1 cap PO BID [facility] Last Admin: 06/21/17 17:24 Dose: 1 cap Loperamide HCl (Imodium) 2 mg PO TID PRN PRN Reason: Diarrhea Last Admin: 06/21/17 17:23 Dose: 2 mg Mesalamine (Delzicol) 800 mg PO DAILY [facility] Last Admin: 06/21/17 10:03 Dose: 800 mg Multivitamins (Hexavitamin) 1 tab PO DAILY [facility] Last Admin: 06/21/17 10:02 Dose: 1 tab Pneumococcal Polyvalent Vaccine (Pneumovax 23 Vaccine) 0.5 ml IM .ONCE ONE Stop: 06/23/17 14:01 - Labs Labs: 06/21/17 11:10 06/19/17 18:16 PT 11.3 SECONDS (9.7-12.2) 06/19/17 18:16 INR 1.0 06/19/17 18:16 APTT 29 SECONDS (21-34) 06/19/17 18:16 Attending/Attestation - Attestation I have personally seen and examined this patient.: Yes I have fully participated in the care of the patient.: Yes I have reviewed all pertinent clinical information, including history, physical exam and plan: Yes Notes (Text): 06/21/17 18:35 Pt was seen and examined at bedside Agree with above note and assessment Pt with perineal abscess Upper GI bleed is resolved Pt is off eliquis OR tomorrow for I & D of perineal abscess and debridement c.w current mx NPO, IVF Consent Plan d.w pt in detail Risk and benefit explaine in detail.
--- NOTE | 2017-06-21 15:53 | CP.PCM.PN ---
Subjective - Date & Time of Evaluation Date of Evaluation: 06/21/17 Time of Evaluation: 09:00 - Subjective Subjective: clinically same Objective - Vital Signs/Intake and Output Vital Signs (last 24 hours): Temp Pulse Resp BP Pulse Ox 97.6 F 77 20 100/56 L 99 06/21/17 07:00 06/21/17 08:30 06/21/17 07:00 06/21/17 07:00 06/21/17 07:00 - Medications Medications: Current Medications Ascorbic Acid (Vitamin C 500 Mg Tab) 500 mg PO DAILY [facility] Last Admin: 06/21/17 10:03 Dose: 500 mg Cyanocobalamin (Vitamin B12 1000 Mcg Tab) 1,000 mcg PO DAILY [facility] Last Admin: 06/21/17 10:02 Dose: 1,000 mcg Diphenhydramine HCl (Benadryl) 25 mg IVP Q4 PRN PRN Reason: Itching / Pruritus Escitalopram Oxalate (Lexapro) 5 mg PO DAILY [facility] Last Admin: 06/21/17 10:02 Dose: 5 mg Ferrous Sulfate (Feosol) 325 mg PO BID [facility] Last Admin: 06/21/17 10:03 Dose: 325 mg Hydromorphone HCl (Dilaudid) 2 mg IVP Q3 [facility] Last Admin: 06/21/17 14:10 Dose: Not Given Ciprofloxacin (Cipro 400mg/200ml Dsw) 400 mg in 200 mls @ 133 mls/hr IVPB Q12H [facility] Last Admin: 06/21/17 10:09 Dose: 133 mls/hr Metronidazole (Flagyl) 500 mg in 100 mls @ 100 mls/hr IVPB Q8 [facility] Last Admin: 06/21/17 14:08 Dose: 100 mls/hr Iohexol (Omnipaque 240 (50 Ml)) 50 ml PO ONCE PRN PRN Reason: FOR CAT SCAN Last Admin: 06/20/17 12:26 Dose: 50 ml Lactobacillus Acidophilus (Bacid Acidophilus) 1 cap PO BID [facility] Last Admin: 06/21/17 10:02 Dose: 1 cap Loperamide HCl (Imodium) 2 mg PO TID PRN PRN Reason: Diarrhea Mesalamine (Delzicol) 800 mg PO DAILY [facility] Last Admin: 06/21/17 10:03 Dose: 800 mg Multivitamins (Hexavitamin) 1 tab PO DAILY [facility] Last Admin: 06/21/17 10:02 Dose: 1 tab Pneumococcal Polyvalent Vaccine (Pneumovax 23 Vaccine) 0.5 ml IM .ONCE ONE Stop: 06/23/17 14:01 - Labs Labs: 06/21/17 11:10 06/19/17 18:16 PT 11.3 SECONDS (9.7-12.2) 06/19/17 18:16 INR 1.0 06/19/17 18:16 APTT 29 SECONDS (21-34) 06/19/17 18:16
[2017-06-22] MEDS: HYDROmorphone 0.5 mg/0.5 ml ISec IVP SCH ×8 (01:05→22:04)
[2017-06-22] MEDS: DiphenhydrAMINE 50 mg/ml Inj IVP PRN ×4 (04:22→22:03)
[2017-06-22] MEDS: Lactobacillus Acidophilus 500 MU Cap PO SCH ×2 (10:10→18:43)
[2017-06-22] MEDS: Multiple Vitamins Tab PO SCH (10:10)
[2017-06-22] MEDS ORDERED: Bacitracin 500 Units/gm Oint Foilpak UD ONE (10:37)
[2017-06-22 12:27] LABS: BASO # 0.1 K/uL (0.0-0.2); BASO % 1.2 % (0.0-2.0); EOS # 0.7 K/uL (0.0-0.7); EOS % 6.5 % (0.0-4.0); HEMATOCRIT 33.9 % (35.0-51.0); LYMPH # 4.2 K/uL (1.0-4.3); LYMPH % 38.5 % (20.0-40.0); MEAN CELL VOLUME 69.7 fL (80.0-94.0); MEAN CORPUSCULAR HEMOGLOBIN 21.4 pg (27.0-31.0); MEAN CORPUSCULAR HGB CONC 30.8 g/dL (33.0-37.0); MEAN PLATELET VOLUME 8.7 fL (7.2-11.7); MONO # 0.8 K/uL (0.0-0.8); NRBC % 0.1 % (0.0-2.0); RED CELL DISTRIBUTION WIDTH 18.4 % (11.5-14.5); WHITE BLOOD COUNT 10.8 K/uL (4.8-10.8)
[2017-06-22 12:43] LABS: CHLORIDE 95 mmol/L (98-107); SODIUM 134 mmol/L (132-148)
[2017-06-22 12:44] LABS: POTASSIUM 3.7 mmol/L (3.6-5.2)
[2017-06-22 12:46] LABS: CARBON DIOXIDE 30 mmol/L (22-30); GFR AFRICAN-AMERICAN > 60
[2017-06-22 12:47] LABS: BLOOD UREA NITROGEN 9 mg/dL (9-20); CALCIUM 9.1 mg/dl (8.6-10.4); GLUCOSE,RANDOM 70 mg/dL (75-110)
[2017-06-22] MEDS ORDERED: Lactated Ringer's 1,000 ML IV ONE (17:30)
[2017-06-22] MEDS ORDERED: Midazolam 2 MG/2 ML VIAL ONE (17:33)
[2017-06-22] MEDS ORDERED: Bupivacaine HCl 0.25% PF (10 ml) Inj ONE (17:33)
[2017-06-22] MEDS ORDERED: Propofol 10 mg/ml Inj (20 ML) ONE (17:33)
--- NOTE | 2017-06-22 18:01 | PCM.SURG1 ---
Surgeon's Initial Post Op Note - Surgeon's Notes Surgeon: Dr. Taylor Co Founder And Cto: Dr. Paz PGY2 Type of Anesthesia: MAC Pre-Operative Diagnosis: nitza-anal abscess Operative Findings: see dictation Post-Operative Diagnosis: same Operation Performed: Incision and drainage of nitza-anal abscess Specimen/Specimens Removed: abscess Cx, Estimated Blood Loss: EBL {In ML}: 5 Blood Products Given: N/A Drains Used: No Drains Post-Op Condition: Good Date of Surgery/Procedure: 06/22/17 Time of Surgery/Procedure: 17:30
[2017-06-22] MEDS ORDERED: Lidocaine 1%/Epinephrine 1:100000 30 ml vial IJ ONE (18:05)
[2017-06-22] MEDS: HYDROmorphone 0.5 mg/0.5 ml ISec IVP PRN ×2 (18:30→18:35)
--- NOTE | 2017-06-22 20:05 | CP.PCM.PN ---
Subjective - Date & Time of Evaluation Date of Evaluation: 06/22/17 Time of Evaluation: 10:20 - Subjective Subjective: Clinical exam Objective - Vital Signs/Intake and Output Vital Signs (last 24 hours): Temp Pulse Resp BP Pulse Ox 98.3 F 103 H 20 124/81 97 06/22/17 15:00 06/22/17 16:00 06/22/17 15:00 06/22/17 15:00 06/22/17 15:00 Intake and Output: 06/22/17 06/23/17 18:59 06:59 Intake Total 480 Balance 480 - Medications Medications: Current Medications Ascorbic Acid (Vitamin C 500 Mg Tab) 500 mg PO DAILY [facility] Last Admin: 06/22/17 10:10 Dose: 500 mg Ciprofloxacin (Cipro) 500 mg PO BID [facility] Last Admin: 06/22/17 18:44 Dose: Not Given Cyanocobalamin (Vitamin B12 1000 Mcg Tab) 1,000 mcg PO DAILY [facility] Last Admin: 06/22/17 10:10 Dose: 1,000 mcg Diphenhydramine HCl (Benadryl) 25 mg IVP Q4 PRN PRN Reason: Itching / Pruritus Last Admin: 06/22/17 16:07 Dose: 25 mg Escitalopram Oxalate (Lexapro) 5 mg PO DAILY [facility] Last Admin: 06/22/17 10:09 Dose: 5 mg Ferrous Sulfate (Feosol) 325 mg PO BID [facility] Last Admin: 06/22/17 18:44 Dose: Not Given Hydromorphone HCl (Dilaudid) 2 mg IVP Q3 [facility] Last Admin: 06/22/17 19:42 Dose: Not Given Lactobacillus Acidophilus (Bacid Acidophilus) 1 cap PO BID [facility] Last Admin: 06/22/17 18:43 Dose: Not Given Loperamide HCl (Imodium) 2 mg PO TID PRN PRN Reason: Diarrhea Last Admin: 06/21/17 17:23 Dose: 2 mg Mesalamine (Delzicol) 800 mg PO DAILY [facility] Last Admin: 06/22/17 10:09 Dose: 800 mg Metronidazole (Flagyl) 500 mg PO Q8 [facility] Last Admin: 06/22/17 13:06 Dose: 500 mg Multivitamins (Hexavitamin) 1 tab PO DAILY [facility] Last Admin: 06/22/17 10:10 Dose: 1 tab Pneumococcal Polyvalent Vaccine (Pneumovax 23 Vaccine) 0.5 ml IM .ONCE ONE Stop: 06/23/17 14:01 - Labs Labs: 06/22/17 12:15 06/22/17 12:15 PT 11.3 SECONDS (9.7-12.2) 06/19/17 18:16 INR 1.0 06/19/17 18:16 APTT 29 SECONDS (21-34) 06/19/17 18:16 - Constitutional Appears: Well - Head Exam Head Exam: ATRAUMATIC, NORMAL INSPECTION, NORMOCEPHALIC - Eye Exam Eye Exam: EOMI, Normal appearance, PERRL - ENT Exam ENT Exam: Mucous Membranes Moist, Normal Exam - Neck Exam Neck Exam: Full ROM, Normal Inspection. absent: Lymphadenopathy - Respiratory Exam Respiratory Exam: Decreased Breath Sounds - Cardiovascular Exam Cardiovascular Exam: REGULAR RHYTHM, +S1, +S2. absent: Murmur - GI/Abdominal Exam GI & Abdominal Exam: Diminished Bowel Sounds - Rectal Exam Rectal Exam: Deferred
--- NOTE | 2017-06-22 20:53 | CARD ---
APPROVED REPORT EKG Measurement Heart [id number] <Conclusion> Sinus tachycardia Otherwise normal for age.
[2017-06-23] MEDS: DiphenhydrAMINE 50 mg/ml Inj IVP PRN ×3 (01:15→14:58)
[2017-06-23] MEDS: HYDROmorphone 0.5 mg/0.5 ml ISec IVP SCH ×5 (01:16→14:43)
[2017-06-23] MEDS: Multiple Vitamins Tab PO SCH (09:21)
[2017-06-23] MEDS: Lactobacillus Acidophilus 500 MU Cap PO SCH (09:21)
--- NOTE | 2017-06-23 10:09 | CP.PCM.PN ---
Subjective - Date & Time of Evaluation Date of Evaluation: 06/23/17 Time of Evaluation: 07:00 - Subjective Subjective: General Surgery Dr. Taylor Pt S&E @bedside. LUIS ALFREDOO. pt c/o pain at incision site. pain well controlled. pt denies F/C, N/V. pt tolerating regular diet. Objective - Vital Signs/Intake and Output Vital Signs (last 24 hours): Temp Pulse Resp BP Pulse Ox 98.4 F 119 H 18 107/84 99 06/23/17 00:17 06/23/17 04:33 06/23/17 00:17 06/23/17 00:17 06/23/17 00:17 - Medications Medications: Current Medications Ascorbic Acid (Vitamin C 500 Mg Tab) 500 mg PO DAILY [facility] Last Admin: 06/23/17 09:21 Dose: 500 mg Ciprofloxacin (Cipro) 500 mg PO BID [facility] Last Admin: 06/23/17 09:21 Dose: 500 mg Cyanocobalamin (Vitamin B12 1000 Mcg Tab) 1,000 mcg PO DAILY [facility] Last Admin: 06/23/17 09:21 Dose: 1,000 mcg Diphenhydramine HCl (Benadryl) 25 mg IVP Q4 PRN PRN Reason: Itching / Pruritus Last Admin: 06/23/17 07:45 Dose: 25 mg Escitalopram Oxalate (Lexapro) 5 mg PO DAILY [facility] Last Admin: 06/23/17 09:21 Dose: 5 mg Ferrous Sulfate (Feosol) 325 mg PO BID [facility] Last Admin: 06/23/17 09:27 Dose: 325 mg Hydromorphone HCl (Dilaudid) 2 mg IVP Q3 [facility] Last Admin: 06/23/17 07:45 Dose: 2 mg Lactobacillus Acidophilus (Bacid Acidophilus) 1 cap PO BID [facility] Last Admin: 06/23/17 09:21 Dose: 1 cap Loperamide HCl (Imodium) 2 mg PO TID PRN PRN Reason: Diarrhea Last Admin: 06/21/17 17:23 Dose: 2 mg Mesalamine (Delzicol) 800 mg PO DAILY [facility] Last Admin: 06/23/17 09:20 Dose: 800 mg Metronidazole (Flagyl) 500 mg PO Q8 [facility] Last Admin: 06/23/17 05:51 Dose: 500 mg Multivitamins (Hexavitamin) 1 tab PO DAILY [facility] Last Admin: 06/23/17 09:21 Dose: 1 tab Pneumococcal Polyvalent Vaccine (Pneumovax 23 Vaccine) 0.5 ml IM .ONCE ONE Stop: 06/23/17 14:01 - Labs Labs: 06/22/17 12:15 06/22/17 12:15 PT 11.3 SECONDS (9.7-12.2) 06/19/17 18:16 INR 1.0 06/19/17 18:16 APTT 29 SECONDS (21-34) 06/19/17 18:16 - Constitutional Appears: Non-toxic, No Acute Distress - Head Exam Head Exam: NORMAL INSPECTION - Eye Exam Eye Exam: Normal appearance - ENT Exam ENT Exam: Mucous Membranes Moist - Respiratory Exam Respiratory Exam: NORMAL BREATHING PATTERN. absent: Accessory Muscle Use, Respiratory Distress - Cardiovascular Exam Cardiovascular Exam: absent: Bradycardia, Tachycardia - GI/Abdominal Exam GI & Abdominal Exam: Soft. absent: Distended, Tenderness - Rectal Exam Additional comments: dressing c.d.i - Extremities Exam Extremities Exam: Normal Inspection - Back Exam Back Exam: NORMAL INSPECTION - Neurological Exam Neurological Exam: Alert, Awake, Oriented x3 - Psychiatric Exam Psychiatric exam: Normal Affect, Normal Mood - Skin Skin Exam: Dry, Normal Color, Warm Assessment and Plan - Assessment and Plan (Free Text) Assessment: 22 y/o M POD#1 s/p I&D of nitza-anal abscess - packing changed - change dressings PRN - cont PO Abx - cont pain management - pt to see Dr. Taylor in office on for packing change - pt is cleared for discharge from surgical standpoint Pt seen and discussed w/ Dr. Claudia Paz DO PGY2
[2017-06-23 11:08] VITALS: RESP 20
[2017-06-23] MEDS ORDERED: Pneumococcal 23-Valent Vaccine IM ONE (14:00)
--- NOTE | 2017-06-23 15:06 | CP.PCM.CON ---
History of Present Illness - History of Present Illness History of Present Illness: dictated Past Patient History - Infectious Disease Hx of Infectious Diseases: None - Past Medical History & Family History Past Medical History?: Yes - Past Social History Smoking Status: Never Smoked - CARDIAC Hx Cardiac Disorders: No - PULMONARY Hx Respiratory Disorders: No - NEUROLOGICAL Hx Neurological Disorder: No - HEENT Hx HEENT Problems: No - RENAL Hx Chronic Kidney Disease: No - ENDOCRINE/METABOLIC Hx Endocrine Disorders: No - HEMATOLOGICAL/ONCOLOGICAL Hx Blood Disorders: No - INTEGUMENTARY Hx Dermatological Problems: Yes Other/Comment: Perineal wound. Rectal abcess - MUSCULOSKELETAL/RHEUMATOLOGICAL Hx Musculoskeletal Disorders: No Hx Falls: No - GASTROINTESTINAL Hx Crohn's Disease: Yes (COLOSTOMY 2016) - GENITOURINARY/GYNECOLOGICAL Hx Genitourinary Disorders: No - PSYCHIATRIC Hx Depression: Yes Hx Substance Use: No - SURGICAL HISTORY Hx Surgeries: Yes (SEE COMMENT) Other/Comment: LOOP COLOSTOMY. Perineal wound. Right upper arm PICC line. COLON RESECTION - ANESTHESIA Hx Anesthesia: Yes Hx Anesthesia Reactions: No Hx Malignant Hyperthermia: No Meds Home Medications: Home Medication List Medication Instructions Recorded Confirmed Type Ciprofloxacin [Cipro] 500 mg PO BID #14 tab 06/23/17 Rx Loperamide [Imodium] 2 mg PO TID PRN #30 cap 06/23/17 Rx metroNIDAZOLE [Flagyl] 500 mg PO BID #14 tab 06/23/17 Rx oxyCODONE/Acetaminophen [Percocet 1 ea PO Q4 PRN #30 tab 06/23/17 Rx 5/325 mg Tab] Allergies/Adverse Reactions: Allergies Allergy/AdvReac Type Severity Reaction Status Date / Time morphine Allergy Severe ITCHING Verified 06/19/17 17:10 - Medications Medications: Current Medications Ascorbic Acid (Vitamin C 500 Mg Tab) 500 mg PO DAILY [facility] Last Admin: 06/23/17 09:21 Dose: 500 mg Ciprofloxacin (Cipro) 500 mg PO BID [facility] Last Admin: 06/23/17 09:21 Dose: 500 mg Cyanocobalamin (Vitamin B12 1000 Mcg Tab) 1,000 mcg PO DAILY [facility] Last Admin: 06/23/17 09:21 Dose: 1,000 mcg Diphenhydramine HCl (Benadryl) 25 mg IVP Q4 PRN PRN Reason: Itching / Pruritus Last Admin: 06/23/17 14:58 Dose: 25 mg Escitalopram Oxalate (Lexapro) 5 mg PO DAILY [facility] Last Admin: 06/23/17 09:21 Dose: 5 mg Ferrous Sulfate (Feosol) 325 mg PO BID [facility] Last Admin: 06/23/17 09:27 Dose: 325 mg Hydromorphone HCl (Dilaudid) 2 mg IVP Q3 [facility] Last Admin: 06/23/17 14:43 Dose: 2 mg Lactobacillus Acidophilus (Bacid Acidophilus) 1 cap PO BID [facility] Last Admin: 06/23/17 09:21 Dose: 1 cap Loperamide HCl (Imodium) 2 mg PO TID PRN PRN Reason: Diarrhea Last Admin: 06/21/17 17:23 Dose: 2 mg Mesalamine (Delzicol) 800 mg PO DAILY [facility] Last Admin: 06/23/17 09:20 Dose: 800 mg Metronidazole (Flagyl) 500 mg PO Q8 [facility] Last Admin: 06/23/17 13:58 Dose: 500 mg Multivitamins (Hexavitamin) 1 tab PO DAILY [facility] Last Admin: 06/23/17 09:21 Dose: 1 tab Results - Vital Signs Recent Vital Signs: Last Vital Signs Temp 98 F 06/23/17 08:00 Pulse 93 H 06/23/17 08:00 Resp 20 06/23/17 08:00 BP 106/57 L 06/23/17 08:00 Pulse Ox 96 06/23/17 08:00 - Labs Result Diagrams: 06/22/17 12:15 06/22/17 12:15
--- NOTE | 2017-06-23 15:10 | CP.PCM.PN ---
Subjective - Date & Time of Evaluation Date of Evaluation: 06/23/17 Time of Evaluation: 09:20 - Subjective Subjective: clinically same Objective - Vital Signs/Intake and Output Vital Signs (last 24 hours): Temp Pulse Resp BP Pulse Ox 98 F 93 H 20 106/57 L 96 06/23/17 08:00 06/23/17 08:00 06/23/17 08:00 06/23/17 08:00 06/23/17 08:00 Intake and Output: 06/23/17 06/23/17 06:59 18:59 Intake Total 480 Balance 480 - Medications Medications: Current Medications Ascorbic Acid (Vitamin C 500 Mg Tab) 500 mg PO DAILY [facility] Last Admin: 06/23/17 09:21 Dose: 500 mg Ciprofloxacin (Cipro) 500 mg PO BID [facility] Last Admin: 06/23/17 09:21 Dose: 500 mg Cyanocobalamin (Vitamin B12 1000 Mcg Tab) 1,000 mcg PO DAILY [facility] Last Admin: 06/23/17 09:21 Dose: 1,000 mcg Diphenhydramine HCl (Benadryl) 25 mg IVP Q4 PRN PRN Reason: Itching / Pruritus Last Admin: 06/23/17 14:58 Dose: 25 mg Escitalopram Oxalate (Lexapro) 5 mg PO DAILY [facility] Last Admin: 06/23/17 09:21 Dose: 5 mg Ferrous Sulfate (Feosol) 325 mg PO BID [facility] Last Admin: 06/23/17 09:27 Dose: 325 mg Hydromorphone HCl (Dilaudid) 2 mg IVP Q3 [facility] Last Admin: 06/23/17 14:43 Dose: 2 mg Lactobacillus Acidophilus (Bacid Acidophilus) 1 cap PO BID [facility] Last Admin: 06/23/17 09:21 Dose: 1 cap Loperamide HCl (Imodium) 2 mg PO TID PRN PRN Reason: Diarrhea Last Admin: 06/21/17 17:23 Dose: 2 mg Mesalamine (Delzicol) 800 mg PO DAILY [facility] Last Admin: 06/23/17 09:20 Dose: 800 mg Metronidazole (Flagyl) 500 mg PO Q8 [facility] Last Admin: 06/23/17 13:58 Dose: 500 mg Multivitamins (Hexavitamin) 1 tab PO DAILY [facility] Last Admin: 06/23/17 09:21 Dose: 1 tab - Labs Labs: 06/22/17 12:15 06/22/17 12:15 PT 11.3 SECONDS (9.7-12.2) 06/19/17 18:16 INR 1.0 06/19/17 18:16 APTT 29 SECONDS (21-34) 06/19/17 18:16 - Constitutional Appears: Well - Head Exam Head Exam: ATRAUMATIC, NORMAL INSPECTION, NORMOCEPHALIC - Eye Exam Eye Exam: EOMI, Normal appearance, PERRL Pupil Exam: NORMAL ACCOMODATION, PERRL - ENT Exam ENT Exam: Mucous Membranes Moist, Normal Exam - Neck Exam Neck Exam: Full ROM, Normal Inspection. absent: Lymphadenopathy - Respiratory Exam Respiratory Exam: Decreased Breath Sounds - Cardiovascular Exam Cardiovascular Exam: REGULAR RHYTHM, +S1, +S2 - GI/Abdominal Exam GI & Abdominal Exam: Soft, Diminished Bowel Sounds - Rectal Exam Rectal Exam: Deferred
[2017-06-23 17:09] VITALS: BP 127/80; PULSE 88; TEMP 98.4; O2SAT 99
--- NOTE | 2017-06-24 04:45 | CON ---
DATE: INFECTIOUS DISEASE CONSULTATION REQUESTED BY: Alcides Barrett MD HISTORY OF PRESENT ILLNESS: This patient is a 22-year-old male. He has a history of Crohn's disease. He has a history of recurrent hemoptysis. He came in with an abscesses in his buttock area, it was in the lumbar area. He has had these kind of abscesses in the past. He denied any fever or chills, any chest pain. He does have colostomy. He has been here with perianal abscesses many time. He also had thrombus in the right IJ, because of hematemesis. He stopped taking his blood thinner and he says he had scope done by the doctor an endoscopy and was found to be negative. His chest CT was also recently done for PE. He came in with this abscess and underwent an I and D today. For the Crohn's disease, he is getting Remicade as outpatient. ALLERGIES: HE IS ALLERGIC TO MORPHINE. PAST SURGICAL HISTORY: Colostomy, he has had multiple abscesses, drainage done in the past, also suffers from depression. FAMILY HISTORY: Unknown, but he says one of his father's sister had Crohn's. SOCIAL HISTORY: Negative for smoking or drinking. He has had multiple admissions here. REVIEW OF SYSTEMS: He denied any fever or pain, but he says when he would sit up making would get severe back pain and the abscesses was draining. He does have . No chest pain. He noted to have pain. He has no hematemesis or hemoptysis. He still had hemoptysis, but denies any other problems. Denies any urinary problems. Denies any lower extremity pain or skin rash. MEDICATIONS: He is on Cipro and Flagyl and during the hospitalization findings had I and D done today by Dr. Taylor, and he is on Cipro and Flagyl as started by Dr. Xavier as I was away. PHYSICAL EXAMINATION: VITAL SIGNS: His temperature was 98, pulse 93, blood pressure 106/57, respirations are 20. HEENT: Head is atraumatic, normocephalic. Pupils are reacting to light. Tongue is moist. NECK: Supple. No neck pain. LUNGS: Clear. No crackles or rales present. HEART: S1 and S2 is regular. ABDOMEN: Soft, nontender. No guarding, no rigidity present. He has a colostomy bag, which is functioning. EXTREMITIES: Have no edema. There is dressing on his lumbar area and I did not examined his perianal abscesses today, but he will be going home on Cipro and Flagyl. He has status post I and D and he remains afebrile. PLAN: He will follow with Dr. Taylor, and to continue Cipro and Flagyl for a week and he is going to get Remicade from his GI physician and he does have Crohn's disease. Santosh Daniel MD
--- NOTE | 2017-06-24 14:33 | OP ---
PROCEDURE DATE: 06/22/2017 PREOPERATIVE DIAGNOSES: 1. Perineal and lower back abscess at the site of previous ulceration. 2. Resolving perineal wound with Crohn's disease. 3. The patient is on intravenous Remicade every 4 weekly. POSTOPERATIVE DIAGNOSE: 1. Perineal and lower back abscess at the site of previous ulceration. 2. Resolving perineal wound with Crohn's disease. 3. The patient is on intravenous Remicade every 4 weekly. PROCEDURE: 1. Incisional drainage of perineal and lower back abscess of approximately 2 cm x 3 cm size. 2. Excisional debridement of the wound. SURGEON: Temo Taylor MD. DEATH CLAIM CLERK: Farzaneh Paz, PGY2 resident. TYPE OF ANESTHESIA: Local anesthesia plus sedation. INTRAOPERATIVE FINDINGS: The patient had approximately 3 cm x 2 cm very low back and perineal area abscess and the patient also had very good response with Remicade and perineal wounds are almost resolving. ESTIMATED BLOOD LOSS: Around 10 mL. DRAINS: None. PATHOLOGY: The debrided tissue as well as pus was sent to pathology for the culture and sensitivity. COMPLICATIONS: None. DESCRIPTION OF PROCEDURE: On intraoperative steps, this is a 22-year-old male who was diagnosed with lower back and perineal area abscess and patient is being treated with IV Remicade for the perineal wounds and underlying Crohn's disease and the patient was consented for incision and drainage, brought to the OR, and placed supine on the operating table. After induction of anesthesia, the patient was placed in a right lateral position. The lower back and perineal area was prepped and draped and vertical incision was made and approximately 10 mL of pus was drained and slough was debrided and after the proper debridement of the wound, the wound was irrigated and packed with Iodoform packing and a dry sterile dressing was applied. The patient tolerated the procedure well. Count of instrument was correct. There was no apparent complication. The patient was reversed from sedation and local anesthesia was injected in the beginning of the procedure. Dry sterile dressing was applied and the patient was sent to the postanesthesia care unit in stable condition. Temo Taylor MD
== END 2017-06-23 18:14 | disposition home or self-care (01) | DRG 269 ==
LOC: C.ER 17:02 → C.9E 18:29 → C.6T 21:28 → C.5S 22:38 → OBSVTOIN 06-22 12:12
PROVIDERS: ADMIT Internal Medicine Nephrology; ATTEND Internal Medicine Nephrology
PROC: 0H99XZZ Drainage of Perineum Skin, External Approach (ICD-10-PCS; 2017-06-22)
PROC: 0H96XZZ Drainage of Back Skin, External Approach (ICD-10-PCS; principal; 2017-06-22 14:45)
DX: L02.215 Cutaneous abscess of perineum (principal); K92.0 Hematemesis; I82.C11 Acute embolism and thrombosis of right internal jugular vein; K50.90 Crohn's disease, unspecified, without complications; L02.212 Cutaneous abscess of back [any part, except buttock and flank]; F32.9 Major depressive disorder, single episode, unspecified; Z93.3 Colostomy status; Z86.711 Personal history of pulmonary embolism; Z79.01 Long term (current) use of anticoagulants; Z88.5 Allergy status to narcotic agent

== ENCOUNTER 2017-07-05 21:29 | Inpatient (IN) | payer MEDICAID ==
[2017-07-05 21:29] VITALS: BMI 20.6
[2017-07-05] MEDS ORDERED: Sodium Chloride 0.9% 1,000 ML IV ONE (21:58)
[2017-07-05] MEDS ORDERED: DiphenhydrAMINE 50 mg/ml Inj IVP STA (21:58)
[2017-07-05] MEDS ORDERED: HYDROmorphone 1 mg/ml ISec IVP STA (21:58)
[2017-07-05] MEDS ORDERED: DiphenhydrAMINE 50 mg/ml Inj ONE (22:17)
[2017-07-05] MEDS ORDERED: Sodium Chloride 0.9% 1,000 ML ONE (22:17)
[2017-07-05] MEDS ORDERED: HYDROmorphone 1 mg/ml ISec ONE (22:17)
[2017-07-05 22:31] LABS: BASO # 0.1 K/uL (0.0-0.2); BASO % 0.7 % (0.0-2.0); EOS # 0.3 K/uL (0.0-0.7); EOS % 1.8 % (0.0-4.0); HEMATOCRIT 32.7 % (35.0-51.0); LYMPH # 4.4 K/uL (1.0-4.3); LYMPH % 31.7 % (20.0-40.0); MEAN CELL VOLUME 70.4 fL (80.0-94.0); MEAN CORPUSCULAR HEMOGLOBIN 20.9 pg (27.0-31.0); MEAN CORPUSCULAR HGB CONC 29.7 g/dL (33.0-37.0); MEAN PLATELET VOLUME 8.2 fL (7.2-11.7); MONO % 7.3 % (0.0-10.0); RED CELL DISTRIBUTION WIDTH 20.9 % (11.5-14.5); WHITE BLOOD COUNT 13.8 K/uL (4.8-10.8)
[2017-07-05 22:38] LABS: CHLORIDE 99 mmol/L (98-107); POTASSIUM 3.6 mmol/L (3.6-5.2); SODIUM 134 mmol/L (132-148)
[2017-07-05 22:41] LABS: ALKALINE PHOSPHATASE 91 U/L (38-126); ALT/SGPT 65 U/L (21-72); AST/SGOT 33 U/L (17-59); BILIRUBIN,TOTAL 0.2 mg/dL (0.2-1.3); BLOOD UREA NITROGEN 16 mg/dL (9-20); CALCIUM 8.6 mg/dl (8.6-10.4); CARBON DIOXIDE 26 mmol/L (22-30); GFR AFRICAN-AMERICAN > 60; GLUCOSE,RANDOM 108 mg/dL (75-110); TOTAL PROTEIN 7.7 g/dL (6.3-8.3)
--- NOTE | 2017-07-05 23:19 | C.PDOC ---
History Of Present Illness 22 year old male presents to the ER with a complaint of recurrent vomiting and passing liquid stools into his ileostomy bag. Patient was recently admitted from 06/22/17-06/24/17 for an abscess to the buttock area that was I&D by Dr. Taylor. Denies fever or chills. Time Seen by Provider: 07/05/17 21:49 Chief Complaint (Nursing): GI Problem History Per: Patient History/Exam Limitations: no limitations Onset/Duration Of Symptoms: Hrs Current Symptoms Are (Timing): Still Present Radiation Of Pain To:: None Quality Of Discomfort: Unable To Describe Associated Symptoms: Vomiting, Diarrhea. denies: Fever, Chills Exacerbating Factors: None Alleviating Factors: None Recent travel outside of the [place]: No Past Medical History Reviewed: Historical Data, Nursing Documentation, Vital Signs Vital Signs: Last Vital Signs Temp 99.8 F H 07/05/17 23:58 Pulse 104 H 07/05/17 23:58 Resp 16 07/05/17 23:58 BP 137/77 07/05/17 23:58 Pulse Ox 99 07/05/17 23:58 - Medical History PMH: Crohn's Disease (COLOSTOMY 2016), Depression - [facility] Procedures DRAINAGE OF BACK SKIN, EXTERNAL APPROACH (06/22/17) DRAINAGE OF BACK SUBCU/FASCIA, OPEN APPROACH (10/21/16) DRAINAGE OF BUTTOCK SKIN, EXTERNAL APPROACH, DIAGNOSTIC (09/23/16) DRAINAGE OF BUTTOCK SUBCU/FASCIA, OPEN APPROACH (03/22/17) DRAINAGE OF BUTTOCK SUBCU/FASCIA, OPEN APPROACH, DIAGN (03/22/17) DRAINAGE OF LEFT AXILLA, OPEN APPROACH (12/21/16) DRAINAGE OF PERINEUM SKIN, EXTERNAL APPROACH (06/22/17) DRAINAGE OF PERINEUM SUBCU/FASCIA, OPEN APPROACH (01/30/17) EXCISION OF BACK SKIN, EXTERNAL APPROACH (09/23/16) EXCISION OF BACK SUBCU/FASCIA, OPEN APPROACH (10/21/16) EXCISION OF BUTTOCK SKIN, EXTERNAL APPROACH (03/22/17) EXCISION OF BUTTOCK SUBCU/FASCIA, OPEN APPROACH (10/21/16) EXCISION OF LEFT AXILLARY LYMPHATIC, OPEN APPROACH (12/21/16) EXCISION OF PERINEUM SKIN, EXTERNAL APPROACH (03/22/17) EXTRACTION OF BUTTOCK SKIN, EXTERNAL APPROACH (09/23/16) EXTRACTION OF PERINEUM SUBCU/FASCIA, OPEN APPROACH (01/30/17) GROUP PSYCHOTHERAPY (11/25/16) INDIVIDUAL PSYCHOTHERAPY, COGNITIVE-BEHAVIORAL (11/25/16) INDIVIDUAL PSYCHOTHERAPY, SUPPORTIVE (05/23/17) INSERTION OF INFUSION DEV INTO SUP VENA CAVA, PERC APPROACH (05/23/17) REMOVAL OF INFUSION DEV FROM GREAT VESSEL, SPORTS ATHLETIC TRAINER APPROACH (12/21/16) ULTRASONOGRAPHY OF SUPERIOR VENA CAVA, GUIDANCE (05/23/17) Family History: States: Unknown Family Hx - Social History Hx Alcohol Use: No Hx Substance Use: No - Immunization History Hx Tetanus Toxoid Vaccination: No Hx Influenza Vaccination: No Hx Pneumococcal Vaccination: No Review Of Systems Constitutional: Negative for: Fever, Chills Gastrointestinal: Positive for: Vomiting, Diarrhea, Other (Meds taken PO area coming out undigested from ileostomy bag.) Physical Exam - Physical Exam Appears: Non-toxic, No Acute Distress, Other (Comfortable) Skin: Normal Color, Warm, Dry Head: Atraumatic, Normacephalic Eye(s): bilateral: Normal Inspection, EOMI Oral Mucosa: Moist Chest: Symmetrical, No Tenderness Cardiovascular: Rhythm Regular Respiratory: Normal Breath Sounds, No Rales, No Rhonchi, No Wheezing Gastrointestinal/Abdominal: Soft, No Tenderness, Other (Ileostomy bag filled with brown liquid stools) Neurological/Psych: Oriented x3, Normal Speech, Normal Cognition ED Course And Treatment - Laboratory Results Result Diagrams: 07/05/17 22:27 07/05/17 22:27 Lab Interpretation: Abnormal (c/w steroids for Crohn's, no L-shift) ECG: Interpreted By Wi ECG Rhythm: Sinus Tachycardia ECG Interpretation: Normal, Abnormal Rate From EC O2 Sat by Pulse Oximetry: 99 - Radiology CXR: Interpreted by Me CXR Interpretation: Yes: No Acute Disease, Other (mediport in good place) - Other Rad abd x 2 X-Ray: Interpreted by Me (normal stool/gas pattern, colostomy/iliostomy in good place.) Progress Note: Blood work and obstructive series x-ray ordered. Benadryl, dilaudid, toradol, and IV fluids administered. Gilmar Barrett called at 22:00 and again at 23:00, agrees to admit patient. - Physician Consult Information Time Consulting Physician Contacted: 23:00 Physician Contacted: Osvaldo Barrett Outcome Of Conversation: Agrees to admit patient. Medical Decision Making Medical Decision Making: persistent n/v/diarrhea healing sacral decub/crohn's ulcers/wounds Disposition Doctor Will See Patient In The: Hospital Counseled Patient/Family Regarding: Studies Performed, Diagnosis - Disposition Disposition: HOME/ ROUTINE Disposition Time: 23:20 Condition: GOOD - Clinical Impression Clinical Impression: Vomiting, Diarrhea, Abdominal pain, Wound of gluteal cleft - Scribe Statement The provider has reviewed the documentation as recorded by the Scribkenna Velásquez All medical record entries made by the Laneyibkenna were at my direction and personally dictated by me. I have reviewed the chart and agree that the record accurately reflects my personal performance of the history, physical exam, medical decision making, and the department course for this patient. I have also personally directed, reviewed, and agree with the discharge instructions and disposition.
[2017-07-06] MEDS: DiphenhydrAMINE 50 mg/ml Inj IVP PRN ×7 (02:43→21:58)
[2017-07-06] MEDS: Dextrose 5%/0.45% NS 1,000 ML IV SCH ×3 (03:26→22:01)
[2017-07-06] MEDS ORDERED: DiphenhydrAMINE 50 mg/ml Inj IVP SCH (04:00)
[2017-07-06] MEDS ORDERED: Pneumococcal 23-Valent Vaccine IM ONE (05:37)
--- NOTE | 2017-07-06 07:06 | CP.PCM.CON ---
Addendum entered and electronically signed by Beth Barcenas DO 07/06/17 10:59 : transfuse 1u RBC Original Note: <SwapnaBeth - Last Filed: 07/06/17 10:48> History of Present Illness - History of Present Illness History of Present Illness: PGY-[address] Hines GI Consult: Diarrhea, vomiting 22 year old male with Hx Crohn's disease, Hx recurrent hemoptysis, recent I&D abscess at lumbar/buttock presents c/o recurrent vomiting and passing liquid stools into his ostomy bag. Pt states that he took remicade (infliximab) @ month x 4 months already, with last dose on 06/29, and the next dose will be on 07/29. He took remicade and humira (adalimumab) together for a while and stopped humira 1 month ago due to duplicity of drug class. He noticed vomiting x 2 month , but the sx got worse for the past 2 weeks with new association with diarrhea, chest pain, and syncope. 2 weeks ago he went to [facility] for increase episodes of vomiting dark red blood with blood in ostomy bag, he was started prednisone outpatient but he did not take it. Yesterday, pt only drank tea and ate a banana but vomited immediately. It was associated with sharp epigastric abdominal pain radiating to mid-back. Pt states that he vomited 3 times at home , lost consciousness, found himself on the floor, which prompted pt to come to the ED. Patient was recently admitted from 06/22/17-06/24/17 for an abscess to the buttock area that was I&D by Dr. Taylor. Denies change in diet. (+) med changes. (+) decrease ree. No recent blood transfusion., wt (+) anemia need outpt IV infusion Denies fever or chills. (+) dizziness (+) CP, sharp, improved. (+) abdominal pain, general, chronic. Denies dysuria Upon ED arrival, Sinus tachy at 108. Fever 102.7 WBC 13.8. Hb 9.7. (baseline Hb around 10). Coags nl. CMP nl. lipase 134. IgA is high at 414 (05/04/17). HIV neg (04/2017). QFT gold neg (10/2016, 04/2017) Blood culture and urine culture was drawn Pt was kept NPO. 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 Steiner, [facility], ; [phone] Past Patient History - Infectious Disease Hx of Infectious Diseases: None - Past Medical History & Family History Past Medical History?: Yes - Past Social History Smoking Status: Never Smoked - CARDIAC Hx Cardiac Disorders: No - PULMONARY Hx Respiratory Disorders: No - NEUROLOGICAL Hx Neurological Disorder: No - HEENT Hx HEENT Problems: No - RENAL Hx Chronic Kidney Disease: No - ENDOCRINE/METABOLIC Hx Endocrine Disorders: No - HEMATOLOGICAL/ONCOLOGICAL Hx Blood Disorders: No - INTEGUMENTARY Hx Dermatological Problems: Yes Other/Comment: Perineal wound. Rectal abcess - MUSCULOSKELETAL/RHEUMATOLOGICAL Hx Musculoskeletal Disorders: No Hx Falls: No - GASTROINTESTINAL Hx Crohn's Disease: Yes (COLOSTOMY 2015) - GENITOURINARY/GYNECOLOGICAL Hx Genitourinary Disorders: No - PSYCHIATRIC Hx Depression: Yes Hx Substance Use: No - SURGICAL HISTORY Hx Surgeries: Yes (SEE COMMENT) Other/Comment: LOOP COLOSTOMY. Perineal wound. Right upper arm PICC line. COLON RESECTION - ANESTHESIA Hx Anesthesia: Yes Hx Anesthesia Reactions: No Hx Malignant Hyperthermia: No Meds Allergies/Adverse Reactions: Allergies Allergy/AdvReac Type Severity Reaction Status Date / Time morphine Allergy Severe ITCHING Verified 07/05/17 21:40 - Medications Medications: Current Medications Diphenhydramine HCl (Benadryl) 25 mg IVP Q3 PRN PRN Reason: Itching Last Admin: 07/06/17 06:34 Dose: 25 mg Enoxaparin Sodium (Lovenox) 40 mg SC DAILY [facility] Hydromorphone HCl (Dilaudid) 2 mg IVP Q3 PRN PRN Reason: Pain, severe (8-10) Last Admin: 07/06/17 06:34 Dose: 2 mg Dextrose/Sodium Chloride (Dextrose 5%/0.45% Ns 1000 Ml) 1,000 mls @ 100 mls/hr IV .Q10H NICOLETTE Last Admin: 07/06/17 03:26 Dose: 100 mls/hr Pantoprazole Sodium (Protonix Ec Tab) 40 mg PO DAILY [facility] Physical Exam - Constitutional Appears: No Acute Distress - Head Exam Head Exam: ATRAUMATIC, NORMAL INSPECTION, NORMOCEPHALIC - Eye Exam Eye Exam: EOMI, Normal appearance, PERRL. absent: Scleral icterus - ENT Exam ENT Exam: Mucous Membranes Moist - Neck Exam Additional comments: supple. Port on L antieror chest. No erythema, dressing intact - Respiratory Exam Respiratory Exam: Clear to Auscultation Bilateral. absent: Rales, Rhonchi, Wheezes - Cardiovascular Exam Cardiovascular Exam: REGULAR RHYTHM, +S1, +S2 - GI/Abdominal Exam GI & Abdominal Exam: Normal Bowel Sounds, Soft, Tenderness (diffuse). absent: Distended, Firm Additional comments: Ostomy in place. formed yellowish-browish stool. - Rectal Exam Additional comments: Mucus in anus, no blood. 3 ulcers - 1 sacrum, 2 perianal, erythema, non-bleeding , non-draining, painful - Extremities Exam Extremities exam: Negative for: calf tenderness - Back Exam Back exam: paraspinal tenderness (rib 12-L1). absent: CVA tenderness (L), CVA tenderness (R) - Neurological Exam Neurological exam: Alert, Oriented x3 - Psychiatric Exam Psychiatric exam: Normal Affect, Normal Mood - Skin Skin Exam: Dry, Warm Results - Vital Signs Recent Vital Signs: Last Vital Signs Temp 102.7 F H 07/06/17 02:05 Pulse 118 H 07/06/17 00:20 Resp 20 07/06/17 00:20 BP 117/68 07/06/17 00:20 Pulse Ox 97 07/06/17 00:20 - Labs Result Diagrams: 07/05/17 22:27 07/05/17 22:27 Labs: Laboratory Results - last 24 hr 07/05/17 07/05/17 07/05/17 22:27 22:27 22:27 WBC 13.8 H RBC 4.65 Hgb 9.7 L Hct 32.7 L MCV 70.4 L MCH 20.9 L MCHC 29.7 L RDW 20.9 H Plt Count 351 MPV 8.2 Neut % (Auto) 58.5 Lymph % (Auto) 31.7 [place] % (Auto) 7.3 Eos % (Auto) 1.8 Baso % (Auto) 0.7 Neut # 8.1 H Lymph # 4.4 H [place] # 1.0 H Eos # 0.3 Baso # 0.1 Sodium 134 Potassium 3.6 Chloride 99 Carbon Dioxide 26 Anion Gap 12 BUN 16 Creatinine 0.7 L Est GFR ( Amer) > 60 Est GFR (Non-Af Amer) > 60 Random Glucose 108 Calcium 8.6 Total Bilirubin 0.2 AST 33 ALT 65 Alkaline Phosphatase 91 Total Protein 7.7 Albumin 3.8 Globulin 3.9 Albumin/Globulin Ratio 1.0 Lipase 134 Blood Type B POSITIVE Antibody Screen Negative Assessment & Plan - Assessment and Plan (Free Text) Plan: 22 year old male with Hx Crohn's disease, Hx recurrent hemoptysis, recent I&D abscess at lumbar/buttock presents c/o recurrent vomiting and passing liquid stools into his ostomy bag with chest pain and syncope episodes - uncontrolled crohn disease fair - s/p colectomy - microcytic anemia, acute on chronic, at baseline Hb 10 - Leukocytosis, likely reactive to crohn flair Plan - Continue antiacid, antiemetics - continue trend H/H, monitor clinical course - will obtain record from Dr. Steiner, GI outpt and discuss plan - Stool work up for lower GI bleed S/R/D/w Dr. Hines <Tavo Hines MD - Last Filed: 07/06/17 14:39> Meds - Medications Medications: Current Medications Diphenhydramine HCl (Benadryl) 25 mg IVP Q3 PRN PRN Reason: Itching Last Admin: 07/06/17 12:50 Dose: 25 mg Enoxaparin Sodium (Lovenox) 40 mg SC DAILY [facility] Last Admin: 07/06/17 09:38 Dose: 40 mg Hydromorphone HCl (Dilaudid) 2 mg IVP Q3 PRN PRN Reason: Pain, severe (8-10) Last Admin: 07/06/17 12:51 Dose: 2 mg Dextrose/Sodium Chloride (Dextrose 5%/0.45% Ns 1000 Ml) 1,000 mls @ 100 mls/hr IV .Q10H NICOLETTE Last Admin: 07/06/17 12:55 Dose: 100 mls/hr Pantoprazole Sodium (Protonix Ec Tab) 40 mg PO DAILY [facility] Last Admin: 07/06/17 09:39 Dose: 40 mg Results - Vital Signs Recent Vital Signs: Last Vital Signs Temp 102.7 F H 07/06/17 02:05 Pulse 118 H 07/06/17 00:20 Resp 20 07/06/17 00:20 BP 117/68 07/06/17 00:20 Pulse Ox 97 07/06/17 00:20 - Labs Result Diagrams: 07/05/17 22:27 07/05/17 22:27 Labs: Laboratory Results - last 24 hr 07/05/17 07/05/17 07/05/17 22:27 22:27 22:27 WBC 13.8 H RBC 4.65 Hgb 9.7 L Hct 32.7 L MCV 70.4 L MCH 20.9 L MCHC 29.7 L RDW 20.9 H Plt Count 351 MPV 8.2 Neut % (Auto) 58.5 Lymph % (Auto) 31.7 [place] % (Auto) 7.3 Eos % (Auto) 1.8 Baso % (Auto) 0.7 Neut # 8.1 H Lymph # 4.4 H [place] # 1.0 H Eos # 0.3 Baso # 0.1 Sodium 134 Potassium 3.6 Chloride 99 Carbon Dioxide 26 Anion Gap 12 BUN 16 Creatinine 0.7 L Est GFR ( Amer) > 60 Est GFR (Non-Af Amer) > 60 Random Glucose 108 Calcium 8.6 Total Bilirubin 0.2 AST 33 ALT 65 Alkaline Phosphatase 91 Total Protein 7.7 Albumin 3.8 Globulin 3.9 Albumin/Globulin Ratio 1.0 Lipase 134 Blood Type B POSITIVE Antibody Screen Negative 07/06/17 13:35 WBC RBC Hgb Hct MCV MCH MCHC RDW Plt Count MPV Neut % (Auto) Lymph % (Auto) [place] % (Auto) Eos % (Auto) Baso % (Auto) Neut # Lymph # [place] # Eos # Baso # Sodium Potassium Chloride Carbon Dioxide Anion Gap BUN Creatinine Est GFR ( Amer) Est GFR (Non-Af Amer) Random Glucose Calcium Total Bilirubin AST ALT Alkaline Phosphatase Total Protein Albumin Globulin Albumin/Globulin Ratio Lipase Blood Type B POSITIVE Antibody Screen Attending/Attestation - Attestation I have personally seen and examined this patient.: Yes I have fully participated in the care of the patient.: Yes I have reviewed all pertinent clinical information: Yes Notes (Text): 07/06/17 14:00 I have seen and examined patient with GI fellow and medical genetics director on rounds. In a nutshell this is a 22 year old male with history of advanced Crohn's disease complicated by recurrent intraabdominal and nitza-anal abscess s/p I and D with in April 2016, currently managed by Dr. Steiner at [facility] on remicade last dose (06/29), R sided IJ thrombosis on eliquis which was discontinued one month ago when he presented with hematemesis who presents to hospital with complaint of blood in ostomy. He describes having intermittent post-prandial vomiting over the past one week which has been dark in color. Last EGD on 06/20 results of which he thinks were normal. Since arrival to hospital patient has not had any recurrent episodes of vomiting. On rectal exam has 2 nitza anal abscess which have no discharge. Exam os ostomy with solid brown formed stool. No episodes of hematemesis since admission. Regular diet as tolerated. No GI intervention needed. Should follow with primary physician upon discharge
[2017-07-06] MEDS ORDERED: Pantoprazole 40 mg EC Tab PO SCH (10:00)
[2017-07-06] MEDS ORDERED: Enoxaparin 40 mg Syringe SC SCH (10:00)
--- NOTE | 2017-07-06 11:33 | RAD ---
PROCEDURE: Radiographs of the chest and abdomen (obstructive series) HISTORY: abd pain COMPARISON: CT abdomen and pelvis with contrast performed 06/20/17 TECHNIQUE: AP radiograph of the chest, with upright and supine radiographs of the abdomen. FINDINGS: CHEST: Left-sided MediPort extends expected location of the cavoatrial junction. The cardiomediastinal silhouette appears within normal limits. No focal consolidation, significant pleural effusion, or definite pneumothorax identified.Please note that chest x-ray has limited sensitivity for the detection of pulmonary masses. ABDOMEN AND PELVIS: Nonobstructive bowel gas pattern. No definite free air. Left upper quadrant ostomy. Bowel anastomotic suture material seen within the right abdomen. No acute osseous abnormality is detected. IMPRESSION: No acute findings identified. See above.
--- NOTE | 2017-07-06 17:03 | CP.PCM.CON ---
History of Present Illness - History of Present Illness History of Present Illness: dictated Past Patient History - Infectious Disease Hx of Infectious Diseases: None - Past Medical History & Family History Past Medical History?: Yes - Past Social History Smoking Status: Never Smoked - CARDIAC Hx Cardiac Disorders: No - PULMONARY Hx Respiratory Disorders: No - NEUROLOGICAL Hx Neurological Disorder: No - HEENT Hx HEENT Problems: No - RENAL Hx Chronic Kidney Disease: No - ENDOCRINE/METABOLIC Hx Endocrine Disorders: No - HEMATOLOGICAL/ONCOLOGICAL Hx Blood Disorders: No - INTEGUMENTARY Hx Dermatological Problems: Yes Other/Comment: Perineal wound. Rectal abcess - MUSCULOSKELETAL/RHEUMATOLOGICAL Hx Musculoskeletal Disorders: No Hx Falls: No - GASTROINTESTINAL Hx Crohn's Disease: Yes (COLOSTOMY 2016) - GENITOURINARY/GYNECOLOGICAL Hx Genitourinary Disorders: No - PSYCHIATRIC Hx Depression: Yes Hx Substance Use: No - SURGICAL HISTORY Hx Surgeries: Yes (SEE COMMENT) Other/Comment: LOOP COLOSTOMY. Perineal wound. Right upper arm PICC line. COLON RESECTION - ANESTHESIA Hx Anesthesia: Yes Hx Anesthesia Reactions: No Hx Malignant Hyperthermia: No Meds Allergies/Adverse Reactions: Allergies Allergy/AdvReac Type Severity Reaction Status Date / Time morphine Allergy Severe ITCHING Verified 07/05/17 21:40 - Medications Medications: Current Medications Diphenhydramine HCl (Benadryl) 25 mg IVP Q3 PRN PRN Reason: Itching Last Admin: 07/06/17 15:55 Dose: 25 mg Enoxaparin Sodium (Lovenox) 40 mg SC DAILY [facility] Last Admin: 07/06/17 09:38 Dose: 40 mg Hydromorphone HCl (Dilaudid) 2 mg IVP Q3 PRN PRN Reason: Pain, severe (8-10) Last Admin: 07/06/17 15:55 Dose: 2 mg Dextrose/Sodium Chloride (Dextrose 5%/0.45% Ns 1000 Ml) 1,000 mls @ 100 mls/hr IV .Q10H NICOLETTE Last Admin: 07/06/17 12:55 Dose: 100 mls/hr Pantoprazole Sodium (Protonix Ec Tab) 40 mg PO DAILY [facility] Last Admin: 07/06/17 09:39 Dose: 40 mg Results - Vital Signs Recent Vital Signs: Last Vital Signs Temp 98.1 F 07/06/17 15:05 Pulse 103 H 07/06/17 15:05 Resp 20 07/06/17 15:05 BP 113/78 07/06/17 15:05 Pulse Ox 100 07/06/17 15:05 - Labs Result Diagrams: 07/05/17 22:27 07/05/17 22:27 Labs: Laboratory Results - last 24 hr 07/05/17 07/05/17 07/05/17 22:27 22:27 22:27 WBC 13.8 H RBC 4.65 Hgb 9.7 L Hct 32.7 L MCV 70.4 L MCH 20.9 L MCHC 29.7 L RDW 20.9 H Plt Count 351 MPV 8.2 Neut % (Auto) 58.5 Lymph % (Auto) 31.7 [place] % (Auto) 7.3 Eos % (Auto) 1.8 Baso % (Auto) 0.7 Neut # 8.1 H Lymph # 4.4 H [place] # 1.0 H Eos # 0.3 Baso # 0.1 Sodium 134 Potassium 3.6 Chloride 99 Carbon Dioxide 26 Anion Gap 12 BUN 16 Creatinine 0.7 L Est GFR ( Amer) > 60 Est GFR (Non-Af Amer) > 60 Random Glucose 108 Calcium 8.6 Total Bilirubin 0.2 AST 33 ALT 65 Alkaline Phosphatase 91 Total Protein 7.7 Albumin 3.8 Globulin 3.9 Albumin/Globulin Ratio 1.0 Lipase 134 Blood Type B POSITIVE Antibody Screen Negative 07/06/17 13:35 WBC RBC Hgb Hct MCV MCH MCHC RDW Plt Count MPV Neut % (Auto) Lymph % (Auto) [place] % (Auto) Eos % (Auto) Baso % (Auto) Neut # Lymph # [place] # Eos # Baso # Sodium Potassium Chloride Carbon Dioxide Anion Gap BUN Creatinine Est GFR ( Amer) Est GFR (Non-Af Amer) Random Glucose Calcium Total Bilirubin AST ALT Alkaline Phosphatase Total Protein Albumin Globulin Albumin/Globulin Ratio Lipase Blood Type B POSITIVE Antibody Screen Negative
--- NOTE | 2017-07-06 19:11 | CP.PCM.HP ---
History of Present Illness - History of Present Illness History of Present Illness: A 22-year-old male with PMHCrohn's disease [colostomy done in 2016] and depression presents to the ER with C/Ovomiting. C/Ovomiting since today morning. 3-4 episodes, nonbilious nonbloody, containing only food particles. C/Oliquid stools in his ileostomy bag since today morning. Patient was recently admitted from June 05 - June 24 for abscess on the buttock for which I&D was done. No C/Ofever or chills. Present on Admission - Present on Admission Any Indicators Present on Admission: No Decubitus Ulcer Present: No Past Patient History - Infectious Disease Hx of Infectious Diseases: None - Past Medical History & Family History Past Medical History?: Yes - Past Social History Smoking Status: Never Smoked - CARDIAC Hx Cardiac Disorders: No - PULMONARY Hx Respiratory Disorders: No - NEUROLOGICAL Hx Neurological Disorder: No - HEENT Hx HEENT Problems: No - RENAL Hx Chronic Kidney Disease: No - ENDOCRINE/METABOLIC Hx Endocrine Disorders: No - HEMATOLOGICAL/ONCOLOGICAL Hx Blood Disorders: No - INTEGUMENTARY Hx Dermatological Problems: Yes Other/Comment: Perineal wound. Rectal abcess - MUSCULOSKELETAL/RHEUMATOLOGICAL Hx Musculoskeletal Disorders: No Hx Falls: No - GASTROINTESTINAL Hx Crohn's Disease: Yes (COLOSTOMY 2015) - GENITOURINARY/GYNECOLOGICAL Hx Genitourinary Disorders: No - PSYCHIATRIC Hx Depression: Yes Hx Substance Use: No - SURGICAL HISTORY Hx Surgeries: Yes (SEE COMMENT) Other/Comment: LOOP COLOSTOMY. Perineal wound. Right upper arm PICC line. COLON RESECTION - ANESTHESIA Hx Anesthesia: Yes Hx Anesthesia Reactions: No Hx Malignant Hyperthermia: No Meds Allergies/Adverse Reactions: Allergies Allergy/AdvReac Type Severity Reaction Status Date / Time morphine Allergy Severe ITCHING Verified 07/05/17 21:40 Physical Exam - Constitutional Appears: Well - Head Exam Head Exam: ATRAUMATIC, NORMAL INSPECTION, NORMOCEPHALIC - Eye Exam Eye Exam: EOMI, Normal appearance, PERRL Pupil Exam: NORMAL ACCOMODATION, PERRL - ENT Exam ENT Exam: Mucous Membranes Moist, Normal Exam - Neck Exam Neck exam: Positive for: Normal Inspection - Respiratory Exam Respiratory Exam: Decreased Breath Sounds - Cardiovascular Exam Cardiovascular Exam: REGULAR RHYTHM, +S1, +S2 - GI/Abdominal Exam GI & Abdominal Exam: Diminished Bowel Sounds, Soft - Rectal Exam Rectal Exam: Deferred Results - Vital Signs Recent Vital Signs: Last Vital Signs Temp 98.1 F 07/06/17 15:05 Pulse 103 H 07/06/17 15:05 Resp 20 07/06/17 15:05 BP 113/78 07/06/17 15:05 Pulse Ox 100 07/06/17 15:05 - Labs Result Diagrams: 07/07/17 08:13 07/07/17 08:13 Labs: Laboratory Results - last 24 hr 07/05/17 07/05/17 07/05/17 22:27 22:27 22:27 WBC 13.8 H RBC 4.65 Hgb 9.7 L Hct 32.7 L MCV 70.4 L MCH 20.9 L MCHC 29.7 L RDW 20.9 H Plt Count 351 MPV 8.2 Neut % (Auto) 58.5 Lymph % (Auto) 31.7 [place] % (Auto) 7.3 Eos % (Auto) 1.8 Baso % (Auto) 0.7 Neut # 8.1 H Lymph # 4.4 H [place] # 1.0 H Eos # 0.3 Baso # 0.1 Sodium 134 Potassium 3.6 Chloride 99 Carbon Dioxide 26 Anion Gap 12 BUN 16 Creatinine 0.7 L Est GFR ( Amer) > 60 Est GFR (Non-Af Amer) > 60 Random Glucose 108 Calcium 8.6 Total Bilirubin 0.2 AST 33 ALT 65 Alkaline Phosphatase 91 Total Protein 7.7 Albumin 3.8 Globulin 3.9 Albumin/Globulin Ratio 1.0 Lipase 134 Stool Occult Blood Blood Type B POSITIVE Antibody Screen Negative 07/06/17 07/06/17 13:35 18:18 WBC RBC Hgb Hct MCV MCH MCHC RDW Plt Count MPV Neut % (Auto) Lymph % (Auto) [place] % (Auto) Eos % (Auto) Baso % (Auto) Neut # Lymph # [place] # Eos # Baso # Sodium Potassium Chloride Carbon Dioxide Anion Gap BUN Creatinine Est GFR ( Amer) Est GFR (Non-Af Amer) Random Glucose Calcium Total Bilirubin AST ALT Alkaline Phosphatase Total Protein Albumin Globulin Albumin/Globulin Ratio Lipase Stool Occult Blood Negative Blood Type B POSITIVE Antibody Screen Negative
--- NOTE | 2017-07-06 21:32 | CP.PCM.CON ---
History of Present Illness - History of Present Illness History of Present Illness: DICTATED Past Patient History - Infectious Disease Hx of Infectious Diseases: None - Past Medical History & Family History Past Medical History?: Yes - Past Social History Smoking Status: Never Smoked - CARDIAC Hx Cardiac Disorders: No - PULMONARY Hx Respiratory Disorders: No - NEUROLOGICAL Hx Neurological Disorder: No - HEENT Hx HEENT Problems: No - RENAL Hx Chronic Kidney Disease: No - ENDOCRINE/METABOLIC Hx Endocrine Disorders: No - HEMATOLOGICAL/ONCOLOGICAL Hx Blood Disorders: No - INTEGUMENTARY Hx Dermatological Problems: Yes Other/Comment: Perineal wound. Rectal abcess - MUSCULOSKELETAL/RHEUMATOLOGICAL Hx Musculoskeletal Disorders: No Hx Falls: No - GASTROINTESTINAL Hx Crohn's Disease: Yes (COLOSTOMY 2016) - GENITOURINARY/GYNECOLOGICAL Hx Genitourinary Disorders: No - PSYCHIATRIC Hx Depression: Yes Hx Substance Use: No - SURGICAL HISTORY Hx Surgeries: Yes (SEE COMMENT) Other/Comment: LOOP COLOSTOMY. Perineal wound. Right upper arm PICC line. COLON RESECTION - ANESTHESIA Hx Anesthesia: Yes Hx Anesthesia Reactions: No Hx Malignant Hyperthermia: No Meds Allergies/Adverse Reactions: Allergies Allergy/AdvReac Type Severity Reaction Status Date / Time morphine Allergy Severe ITCHING Verified 07/05/17 21:40 - Medications Medications: Current Medications Diphenhydramine HCl (Benadryl) 25 mg IVP Q3 PRN PRN Reason: Itching Last Admin: 07/06/17 18:55 Dose: 25 mg Enoxaparin Sodium (Lovenox) 40 mg SC DAILY [facility] Last Admin: 07/06/17 09:38 Dose: 40 mg Hydromorphone HCl (Dilaudid) 2 mg IVP Q3 PRN PRN Reason: Pain, severe (8-10) Last Admin: 07/06/17 18:55 Dose: 2 mg Dextrose/Sodium Chloride (Dextrose 5%/0.45% Ns 1000 Ml) 1,000 mls @ 100 mls/hr IV .Q10H [facility] Last Admin: 07/06/17 12:55 Dose: 100 mls/hr Pantoprazole Sodium (Protonix Ec Tab) 40 mg PO DAILY [facility] Last Admin: 07/06/17 09:39 Dose: 40 mg Results - Vital Signs Recent Vital Signs: Last Vital Signs Temp 97.8 F 07/06/17 21:19 Pulse 91 H 07/06/17 21:19 Resp 20 07/06/17 21:19 BP 117/67 07/06/17 21:19 Pulse Ox 100 07/06/17 15:05 - Labs Result Diagrams: 07/05/17 22:27 07/05/17 22:27 Labs: Laboratory Results - last 24 hr 07/05/17 07/05/17 07/05/17 22:27 22:27 22:27 WBC 13.8 H RBC 4.65 Hgb 9.7 L Hct 32.7 L MCV 70.4 L MCH 20.9 L MCHC 29.7 L RDW 20.9 H Plt Count 351 MPV 8.2 Neut % (Auto) 58.5 Lymph % (Auto) 31.7 [place] % (Auto) 7.3 Eos % (Auto) 1.8 Baso % (Auto) 0.7 Neut # 8.1 H Lymph # 4.4 H [place] # 1.0 H Eos # 0.3 Baso # 0.1 Sodium 134 Potassium 3.6 Chloride 99 Carbon Dioxide 26 Anion Gap 12 BUN 16 Creatinine 0.7 L Est GFR ( Amer) > 60 Est GFR (Non-Af Amer) > 60 Random Glucose 108 Calcium 8.6 Total Bilirubin 0.2 AST 33 ALT 65 Alkaline Phosphatase 91 Total Protein 7.7 Albumin 3.8 Globulin 3.9 Albumin/Globulin Ratio 1.0 Lipase 134 Stool Occult Blood C. difficile Ag & Toxin Blood Type B POSITIVE Antibody Screen Negative 07/06/17 07/06/17 07/06/17 13:35 18:00 18:18 WBC RBC Hgb Hct MCV MCH MCHC RDW Plt Count MPV Neut % (Auto) Lymph % (Auto) [place] % (Auto) Eos % (Auto) Baso % (Auto) Neut # Lymph # [place] # Eos # Baso # Sodium Potassium Chloride Carbon Dioxide Anion Gap BUN Creatinine Est GFR ( Amer) Est GFR (Non-Af Amer) Random Glucose Calcium Total Bilirubin AST ALT Alkaline Phosphatase Total Protein Albumin Globulin Albumin/Globulin Ratio Lipase Stool Occult Blood Negative C. difficile Ag & Toxin Negative Blood Type B POSITIVE Antibody Screen Negative
--- NOTE | 2017-07-06 21:36 | CARD ---
APPROVED REPORT EKG Measurement Heart [id number] <Conclusion> Sinus tachycardia Otherwise normal ECG
[2017-07-07] MEDS: DiphenhydrAMINE 50 mg/ml Inj IVP PRN ×8 (01:09→23:45)
[2017-07-07] MEDS: Vancomycin 1 gm/NS 200 ml 1 GM/200 ML BAG IVPB SCH ×2 (01:17→13:10)
--- NOTE | 2017-07-07 04:10 | CON ---
HISTORY OF PRESENT ILLNESS: Noel Bedolla was recent here and discharged on 06/23/2017. He returns with vomiting and having liquid stools in the ileostomy bag. He also says he has been vomiting blood. He said he passed out one time in the bathroom, after he had blood come out from his mouth. Also the patient stated that he has a new Port-A-Cath on his left chest wall and he gets Remicade through it. He gets it twice a month. Now comes in with vomiting and liquid stool. He also had temp of 102 in the ER. He denies any fevers at home. His face appears kind of cortez shaped. He was on steroids, but for the last 4 days he has not taken any steroids and he said those were given by the GI and now comes with recurrent vomiting, liquid stool and fever and had hematemesis. ALLERGIES: HE IS ALLERGIC TO MORPHINE. PAST MEDICAL HISTORY: Significant for Crohn's disease and he has had many perirectal abscesses, which have been drained multiple times and in the axilla he also had PE as well as DVT in the right subclavian and at this time, he comes with this new problem of having diarrhea and vomiting and blood. FAMILY HISTORY: His one of the aunts has Crohn's disease. SOCIAL HISTORY: Negative for smoking or drug abuse. SURGICAL HISTORY: He has surgical history of Port-A-Cath insertion recently. He denied any fever and chills, but he had fever yesterday untold and denies any sore throat or cough, but he says he does bring out blood. He showed me a picture on his phone, which showed definitely blood on the cloth that he cleaned his mouth with. PHYSICAL EXAMINATION: VITAL SIGNS: I find his temperature is 97.8 now, heart rate of 91, blood pressure 117/67, and respirations are 20. HEENT: Head is atraumatic and normocephalic. Pupils are reacting to light. Throat; no congestion, no thrush seen. His face appears to be more cortez shaped. NECK: Supple. LUNGS: Clear. No crackles or rales present. HEART: S1 and S2 is regular. ABDOMEN: Soft and nontender. No guarding, no rigidity present. Ileostomy bag has brown liquid stool, but he was saying it was smelling bad at home. EXTREMITIES: Have no edema. He does have skin ulceration in the perineal area as well as between the 2 buttocks, but it appears clean at this time. LABORATORY DATA: Labs are noted. Lab showed white count is 13.8, hemoglobin 9.7, hematocrit 32.7 and platelet count is 351. His creatinine is 0.7, BUN is 16. MEDICATIONS: Include Dextrose; Benadryl; Lovenox, he is on 40 subQ daily; he is on Dilaudid and Protonix. I think in view of his vomiting blood, Lovenox probably should be held. Labs show no acute findings on the ultrasound. Obstruction series shows no focal consolidation, so we will monitor. Since he had vomiting and diarrhea, I want to get stool studies done to rule C. diff as he has had multiple admissions and had multiple antibiotics in the past. He does have small abscesses. We are also doing for Cryptosporidium antigen in the stool and Giardia antigen in the stool, and ova/parasite stool cultures. I would order stool for C. diff also. We will follow at this time. I would try to stay away from the antibiotics unless necessary as he seems to be having GI symptoms and they could also be related to the steroids that he took not too long ago according to the patient's history. Santosh Daniel MD
[2017-07-07] MEDS: Dextrose 5%/0.45% NS 1,000 ML IV SCH ×4 (04:31→22:06)
[2017-07-07] MEDS: Meropenem 1 GM in Dextrose 5% In Water 100 ML IVPB SCH ×3 (05:20→22:03)
--- NOTE | 2017-07-07 07:29 | CP.PCM.PN ---
Addendum entered and electronically signed by Beth Barcenas DO 07/07/17 10:09 : Maintain upright posture at least for 2 hours after eating Original Note: <Beth Barcenas - Last Filed: 07/07/17 09:51> Subjective - Date & Time of Evaluation Date of Evaluation: 07/07/17 Time of Evaluation: 07:26 - Subjective Subjective: PGY-[address] Lopez GI progress note Pt vomit x 2 with dark red blood. (+) dizzy but did not pass out. Abdominal cramps chroni, unchanged tolerated iu pRBC yesterday. Denies f/c Objective - Vital Signs/Intake and Output Vital Signs (last 24 hours): Temp Pulse Resp BP Pulse Ox 97.6 F 81 20 114/71 97 07/07/17 00:00 07/07/17 00:00 07/07/17 00:00 07/07/17 00:00 07/07/17 00:00 Intake and Output: 07/07/17 07/07/17 06:59 18:59 Intake Total 2815 Output Total 250 Balance 2565 - Medications Medications: Current Medications Diphenhydramine HCl (Benadryl) 25 mg IVP Q3 PRN PRN Reason: Itching Last Admin: 07/07/17 04:18 Dose: 25 mg Hydromorphone HCl (Dilaudid) 2 mg IVP Q3 PRN PRN Reason: Pain, severe (8-10) Last Admin: 07/07/17 04:19 Dose: 2 mg Dextrose/Sodium Chloride (Dextrose 5%/0.45% Ns 1000 Ml) 1,000 mls @ 100 mls/hr IV .Q10H [facility] Last Admin: 07/07/17 04:31 Dose: 100 mls/hr Meropenem 1 gm/ Dextrose 100 mls @ 100 mls/hr IVPB Q8 [facility] Last Admin: 07/07/17 05:20 Dose: 100 mls/hr Vancomycin/Sodium Chloride (Vancomycin 1 Gm/Ns 200 Ml) 1 gm in 200 mls @ 166.7 mls/hr IVPB Q12H [facility] Stop: 07/12/17 01:01 Last Admin: 07/07/17 01:17 Dose: 166.7 mls/hr Pantoprazole Sodium (Protonix Ec Tab) 40 mg PO DAILY [facility] Last Admin: 07/06/17 09:39 Dose: 40 mg - Labs Labs: 07/05/17 22:27 07/05/17 22:27 - Constitutional Appears: No Acute Distress, Other (pale) - Head Exam Head Exam: ATRAUMATIC, NORMAL INSPECTION, NORMOCEPHALIC - Eye Exam Eye Exam: EOMI, Normal appearance, PERRL. absent: Scleral icterus Pupil Exam: NORMAL ACCOMODATION - ENT Exam ENT Exam: Mucous Membranes Moist - Neck Exam Additional comments: supple, - Respiratory Exam Respiratory Exam: Clear to Ausculation Bilateral. absent: Rales, Rhonchi, Wheezes - Cardiovascular Exam Cardiovascular Exam: REGULAR RHYTHM, +S1, +S2 - GI/Abdominal Exam GI & Abdominal Exam: Soft, Tenderness (chronic, epigastric), Normal Bowel Sounds. absent: Guarding, Rigid Additional comments: Ostomy in place, no erythema, no leakage, stool is formed, brownish-yellowish - Extremities Exam Extremities Exam: absent: Calf Tenderness - Back Exam Back Exam: absent: CVA tenderness (L), CVA tenderness (R) - Neurological Exam Neurological Exam: Alert, Awake, Oriented x3 - Psychiatric Exam Psychiatric exam: Normal Affect, Normal Mood - Skin Skin Exam: Dry, Warm Assessment and Plan - Assessment and Plan (Free Text) Plan: 22 year old male with Hx adcvanced Crohn's disease, Hx recurrent hemoptysis, recent I&D abscess at lumbar/buttock presents c/o recurrent vomiting maroon color blood and passing liquid stools with blood into his ostomy bag associated with chest pain and syncope episodes. - Hematemesis, likely due to esophagitis vs opioid-induced - Grade 2 erosive esophagitis and gastritis, per EGD, 06/19/17 Dr. Steiner. - diarrhea and blood in ostomy - resolved - microcytic anemia, acute on chronic, at baseline Hb 10, s/p 1u pRBC - gram positive bacteremia - Hx advanced crohn disease, on remicade q4week by Dr. Steiner [facility], s/p colectomy, complicated by recurrent intraabdominal and nitza-anal abscess s/p I and D with in April 2016 - Hx R sided IJ thrombosis on eliquis, stopped by pt 1 month ago Plan - Protonix BID at least 3 months. Follow up with out patient GI doctor - Zofran q8hr standing - continue trend H/H, monitor clinical course - Upgrade to regular diet, soft, low fat - minimize narcotic - Stool work up for lower GI bleed: Cdiff tox neg; stool leukocyte neg; stool occult blood neg. - May consider IV Iron - GI will sign off S/R/D/w Dr. Lopez <Campos Lopez - Last Filed: 07/07/17 11:20> Objective - Vital Signs/Intake and Output Vital Signs (last 24 hours): Temp Pulse Resp BP Pulse Ox 97.6 F 81 20 114/71 97 07/07/17 00:00 07/07/17 00:00 07/07/17 00:00 07/07/17 00:00 07/07/17 00:00 Intake and Output: 07/07/17 07/07/17 06:59 18:59 Intake Total 2815 Output Total 250 Balance 2565 - Medications Medications: Current Medications Diphenhydramine HCl (Benadryl) 25 mg IVP Q3 PRN PRN Reason: Itching Last Admin: 07/07/17 10:53 Dose: 25 mg Hydromorphone HCl (Dilaudid) 2 mg IVP Q3 PRN PRN Reason: Pain, severe (8-10) Last Admin: 07/07/17 10:57 Dose: 2 mg Hydromorphone HCl (Dilaudid) 0.5 mg IVP Q6H PRN PRN Reason: Pain, moderate (4-7) Dextrose/Sodium Chloride (Dextrose 5%/0.45% Ns 1000 Ml) 1,000 mls @ 100 mls/hr IV .Q10H [facility] Last Admin: 07/07/17 07:49 Dose: 100 mls/hr Meropenem 1 gm/ Dextrose 100 mls @ 100 mls/hr IVPB Q8 [facility] Last Admin: 07/07/17 05:20 Dose: 100 mls/hr Vancomycin/Sodium Chloride (Vancomycin 1 Gm/Ns 200 Ml) 1 gm in 200 mls @ 166.7 mls/hr IVPB Q12H [facility] Stop: 07/12/17 01:01 Last Admin: 07/07/17 01:17 Dose: 166.7 mls/hr Ondansetron HCl (Zofran Inj) 4 mg IVP Q8 [facility] Pantoprazole Sodium (Protonix Ec Tab) 40 mg PO BID [facility] Last Admin: 07/07/17 10:59 Dose: 40 mg - Labs Labs: 07/07/17 08:13 07/07/17 08:13 PT 12.8 SECONDS (9.7-12.2) H 07/07/17 08:13 INR 1.1 07/07/17 08:13 APTT 29 SECONDS (21-34) 07/07/17 08:13 Attending/Attestation - Attestation I have personally seen and examined this patient.: Yes I have fully participated in the care of the patient.: Yes I have reviewed all pertinent clinical information, including history, physical exam and plan: Yes Notes (Text): 07/07/17 11:14 I have seen and examined patient with GI fellow and medical sales consultant. No acute events overnight, he had one episode of non-bloody emesis this morning and endorses ongoing nausea. He is tolerating PO liquids and asking for diet to be advanced. Review of vitals from today are normal. Advanced crohn's with perianal disease on biologic therapy Recurrent perianal abscesses Nausea - likely multifactorial given ongoing antibiotic and narcotic pain medication use Hematemesis - resolved. Colostomy examined, presence of soft/hard yellow stool without evidence of blood in bag. Sepsis, bacteremia - Advance diet as tolerated - Outpatient EGD report from 06/19/17 reviewed by me showing erosive esophagitis and gastritis, no presence of peptic ulcer disease - Suggest use of PPI therapy twice daily - H/H stable, continue to monitor post PRBC transfusion - Attempt to reduce amount of narcotic pain medication as this may contribute to ongoing symptoms - Continue with antibiotic therapy as per ID - No further planned GI intervention, following discharge patient will follow up with Dr. Steiner (primary GI physician). Will sign off case, please reconsult as necessary, thank you.
[2017-07-07 08:33] LABS: INR 1.1
[2017-07-07 08:35] LABS: BASO # 0.1 K/uL (0.0-0.2); BASO % 0.5 % (0.0-2.0); EOS # 0.5 K/uL (0.0-0.7); EOS % 3.6 % (0.0-4.0); HEMATOCRIT 33.8 % (35.0-51.0); LYMPH # 2.7 K/uL (1.0-4.3); LYMPH % 19.1 % (20.0-40.0); MEAN CELL VOLUME 72.1 fL (80.0-94.0); MEAN CORPUSCULAR HEMOGLOBIN 22.6 pg (27.0-31.0); MEAN CORPUSCULAR HGB CONC 31.4 g/dL (33.0-37.0); MEAN PLATELET VOLUME 8.4 fL (7.2-11.7); MONO # 0.8 K/uL (0.0-0.8); NRBC % 0.1 % (0.0-2.0); RED CELL DISTRIBUTION WIDTH 21.3 % (11.5-14.5); WHITE BLOOD COUNT 14.1 K/uL (4.8-10.8)
[2017-07-07 08:53] LABS: CHLORIDE 99 mmol/L (98-107); POTASSIUM 3.6 mmol/L (3.6-5.2); SODIUM 134 mmol/L (132-148)
[2017-07-07 08:55] LABS: BILIRUBIN,TOTAL 0.7 mg/dL (0.2-1.3); CARBON DIOXIDE 27 mmol/L (22-30); GFR AFRICAN-AMERICAN > 60
[2017-07-07 08:56] LABS: ALB/GLOB RATIO 1.3 (1.0-2.1); ALKALINE PHOSPHATASE 71 U/L (38-126); ALT/SGPT 53 U/L (21-72); AST/SGOT 40 U/L (17-59); BLOOD UREA NITROGEN 5 mg/dL (9-20); CALCIUM 8.4 mg/dl (8.6-10.4); GLUCOSE,RANDOM 87 mg/dL (75-110); TOTAL PROTEIN 6.3 g/dL (6.3-8.3)
[2017-07-07] MEDS: Pantoprazole 40 mg EC Tab PO SCH ×2 (10:59→17:40)
--- NOTE | 2017-07-07 20:38 | CP.PCM.PN ---
Subjective - Date & Time of Evaluation Date of Evaluation: 07/07/17 Time of Evaluation: 08:40 - Subjective Subjective: clinically same Objective - Vital Signs/Intake and Output Vital Signs (last 24 hours): Temp Pulse Resp BP Pulse Ox 98.3 F 99 H 20 103/72 95 07/07/17 15:45 07/07/17 15:45 07/07/17 15:45 07/07/17 15:45 07/07/17 15:45 Intake and Output: 07/07/17 07/08/17 18:59 06:59 Intake Total 1300 Output Total 580 Balance 720 - Medications Medications: Current Medications Diphenhydramine HCl (Benadryl) 25 mg IVP Q3 PRN PRN Reason: Itching Last Admin: 07/07/17 17:40 Dose: 25 mg Hydromorphone HCl (Dilaudid) 2 mg IVP Q3 PRN PRN Reason: Pain, severe (8-10) Last Admin: 07/07/17 17:40 Dose: 2 mg Hydromorphone HCl (Dilaudid) 0.5 mg IVP Q6H PRN PRN Reason: Pain, moderate (4-7) Dextrose/Sodium Chloride (Dextrose 5%/0.45% Ns 1000 Ml) 1,000 mls @ 100 mls/hr IV .Q10H [facility] Last Admin: 07/07/17 07:49 Dose: 100 mls/hr Meropenem 1 gm/ Dextrose 100 mls @ 100 mls/hr IVPB Q8 [facility] Last Admin: 07/07/17 15:10 Dose: 100 mls/hr Vancomycin/Sodium Chloride (Vancomycin 1 Gm/Ns 200 Ml) 1 gm in 200 mls @ 166.7 mls/hr IVPB Q12H [facility] Stop: 07/12/17 01:01 Last Admin: 07/07/17 13:10 Dose: 166.7 mls/hr Ondansetron HCl (Zofran Inj) 4 mg IVP Q8 [facility] Last Admin: 07/07/17 14:15 Dose: Not Given Pantoprazole Sodium (Protonix Ec Tab) 40 mg PO BID [facility] Last Admin: 07/07/17 17:40 Dose: 40 mg - Labs Labs: 07/07/17 08:13 07/07/17 08:13 PT 12.8 SECONDS (9.7-12.2) H 07/07/17 08:13 INR 1.1 07/07/17 08:13 APTT 29 SECONDS (21-34) 07/07/17 08:13 - Constitutional Appears: Well - Head Exam Head Exam: ATRAUMATIC, NORMAL INSPECTION, NORMOCEPHALIC - Eye Exam Eye Exam: EOMI, Normal appearance, PERRL - ENT Exam ENT Exam: Mucous Membranes Moist, Normal Exam - Neck Exam Neck Exam: Full ROM, Normal Inspection. absent: Lymphadenopathy - Respiratory Exam Respiratory Exam: Decreased Breath Sounds - Cardiovascular Exam Cardiovascular Exam: REGULAR RHYTHM, +S1, +S2 - GI/Abdominal Exam GI & Abdominal Exam: Soft, Diminished Bowel Sounds - Rectal Exam Rectal Exam: Deferred Assessment and Plan (1) Abdominal pain Status: Acute (2) Diarrhea Status: Acute (3) Vomiting Status: Acute (4) Wound of gluteal cleft Status: Acute (5) Abscess Status: Acute (6) Chest pain Status: Acute (7) Chest pain Status: Acute (8) Constipation Status: Acute (9) DVT (deep venous thrombosis) Status: Acute (10) Diarrhea Status: Acute (11) Encounter for wound care Status: Acute (12) Fever Status: Acute (13) Foreign body Status: Acute (14) Hematemesis with nausea Status: Acute (15) Intractable abdominal pain Status: Acute (16) Intractable pain Status: Acute (17) Prophylactic measure Status: Acute (18) Pulmonary embolism Status: Acute (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 Patient better. No chest pain. Continue all treatment. Continue treatment for Crohn's disease [mesalamine].
[2017-07-08] MEDS: Vancomycin 1 gm/NS 200 ml 1 GM/200 ML BAG IVPB SCH ×2 (01:08→14:00)
[2017-07-08] MEDS: DiphenhydrAMINE 50 mg/ml Inj IVP PRN ×7 (02:54→23:06)
[2017-07-08] MEDS: HYDROmorphone 0.5 mg/0.5 ml ISec IVP PRN (02:55)
[2017-07-08] MEDS: Meropenem 1 GM in Dextrose 5% In Water 100 ML IVPB SCH ×3 (06:02→21:13)
[2017-07-08] MEDS: Pantoprazole 40 mg EC Tab PO SCH ×2 (10:55→17:06)
[2017-07-08] MEDS: Dextrose 5%/0.45% NS 1,000 ML IV SCH (14:02)
--- NOTE | 2017-07-08 17:30 | CP.PCM.PN ---
Subjective - Date & Time of Evaluation Date of Evaluation: 07/08/17 Time of Evaluation: 17:00 - Subjective Subjective: dictated Objective - Vital Signs/Intake and Output Vital Signs (last 24 hours): Temp Pulse Resp BP Pulse Ox 97.7 F 98 H 20 114/77 98 07/08/17 07:00 07/08/17 07:00 07/08/17 07:00 07/08/17 07:00 07/08/17 07:00 Intake and Output: 07/08/17 07/08/17 06:59 18:59 Intake Total 1300 Balance 1300 - Medications Medications: Current Medications Diphenhydramine HCl (Benadryl) 25 mg IVP Q3 PRN PRN Reason: Itching Last Admin: 07/08/17 17:05 Dose: 25 mg Hydromorphone HCl (Dilaudid) 2 mg IVP Q3 PRN PRN Reason: Pain, severe (8-10) Last Admin: 07/08/17 17:05 Dose: 2 mg Hydromorphone HCl (Dilaudid) 0.5 mg IVP Q6H PRN PRN Reason: Pain, moderate (4-7) Last Admin: 07/08/17 02:55 Dose: 0.5 mg Dextrose/Sodium Chloride (Dextrose 5%/0.45% Ns 1000 Ml) 1,000 mls @ 100 mls/hr IV .Q10H [facility] Last Admin: 07/08/17 14:02 Dose: 100 mls/hr Meropenem 1 gm/ Dextrose 100 mls @ 100 mls/hr IVPB Q8 [facility] Last Admin: 07/08/17 15:00 Dose: 100 mls/hr Vancomycin/Sodium Chloride (Vancomycin 1 Gm/Ns 200 Ml) 1 gm in 200 mls @ 166.7 mls/hr IVPB Q12H [facility] Stop: 07/12/17 01:01 Last Admin: 07/08/17 14:00 Dose: 166.7 mls/hr Ondansetron HCl (Zofran Inj) 4 mg IVP Q8 [facility] Last Admin: 07/08/17 14:02 Dose: Not Given Pantoprazole Sodium (Protonix Ec Tab) 40 mg PO BID [facility] Last Admin: 07/08/17 17:06 Dose: 40 mg - Labs Labs: 07/07/17 08:13 07/07/17 08:13 PT 12.8 SECONDS (9.7-12.2) H 07/07/17 08:13 INR 1.1 07/07/17 08:13 APTT 29 SECONDS (21-34) 07/07/17 08:13
--- NOTE | 2017-07-08 20:07 | CP.PCM.PN ---
Subjective - Date & Time of Evaluation Date of Evaluation: 07/15/17 Time of Evaluation: 08:00 - Subjective Subjective: clinically same Objective - Vital Signs/Intake and Output Vital Signs (last 24 hours): Temp Pulse Resp BP Pulse Ox 97.7 F 98 H 20 114/77 98 07/08/17 07:00 07/08/17 07:00 07/08/17 07:00 07/08/17 07:00 07/08/17 07:00 Intake and Output: 07/08/17 07/09/17 18:59 06:59 Intake Total 1300 Balance 1300 - Medications Medications: Current Medications Diphenhydramine HCl (Benadryl) 25 mg IVP Q3 PRN PRN Reason: Itching Last Admin: 07/08/17 20:05 Dose: 25 mg Hydromorphone HCl (Dilaudid) 2 mg IVP Q3 PRN PRN Reason: Pain, severe (8-10) Last Admin: 07/08/17 20:05 Dose: 2 mg Hydromorphone HCl (Dilaudid) 0.5 mg IVP Q6H PRN PRN Reason: Pain, moderate (4-7) Last Admin: 07/08/17 02:55 Dose: 0.5 mg Dextrose/Sodium Chloride (Dextrose 5%/0.45% Ns 1000 Ml) 1,000 mls @ 100 mls/hr IV .Q10H [facility] Last Admin: 07/08/17 14:02 Dose: 100 mls/hr Meropenem 1 gm/ Dextrose 100 mls @ 100 mls/hr IVPB Q8 [facility] Last Admin: 07/08/17 15:00 Dose: 100 mls/hr Vancomycin/Sodium Chloride (Vancomycin 1 Gm/Ns 200 Ml) 1 gm in 200 mls @ 166.7 mls/hr IVPB Q12H [facility] Stop: 07/12/17 01:01 Last Admin: 07/08/17 14:00 Dose: 166.7 mls/hr Ondansetron HCl (Zofran Inj) 4 mg IVP Q8 [facility] Last Admin: 07/08/17 14:02 Dose: Not Given Pantoprazole Sodium (Protonix Ec Tab) 40 mg PO BID [facility] Last Admin: 07/08/17 17:06 Dose: 40 mg - Labs Labs: 07/07/17 08:13 07/07/17 08:13 PT 12.8 SECONDS (9.7-12.2) H 07/07/17 08:13 INR 1.1 07/07/17 08:13 APTT 29 SECONDS (21-34) 07/07/17 08:13 - Constitutional Appears: Well - Head Exam Head Exam: ATRAUMATIC, NORMAL INSPECTION, NORMOCEPHALIC - Eye Exam Eye Exam: EOMI, Normal appearance, PERRL Pupil Exam: NORMAL ACCOMODATION, PERRL - ENT Exam ENT Exam: Mucous Membranes Moist, Normal Exam - Neck Exam Neck Exam: Full ROM, Normal Inspection. absent: Lymphadenopathy - Respiratory Exam Respiratory Exam: Decreased Breath Sounds - Cardiovascular Exam Cardiovascular Exam: REGULAR RHYTHM, +S1, +S2 - GI/Abdominal Exam GI & Abdominal Exam: Soft, Diminished Bowel Sounds - Rectal Exam Rectal Exam: Deferred Assessment and Plan (1) Abdominal pain Status: Acute (2) Diarrhea Status: Acute (3) Vomiting Status: Acute (4) Wound of gluteal cleft Status: Acute (5) Abscess Status: Acute (6) Chest pain Status: Acute (7) Chest pain Status: Acute (8) Constipation Status: Acute (9) DVT (deep venous thrombosis) Status: Acute (10) Diarrhea Status: Acute (11) Encounter for wound care Status: Acute (12) Fever Status: Acute (13) Foreign body Status: Acute (14) Hematemesis with nausea Status: Acute (15) Intractable abdominal pain Status: Acute (16) Intractable pain Status: Acute (17) Prophylactic measure Status: Acute (18) Pulmonary embolism Status: Acute (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 No vomiting. X-ray abdomen obstructive pattern is negative. Laboratory investigations noted. Venous blood cultures show Pseudomonas, coagulase-negative Staphylococcus. Urine culture grew Pseudomonas. Continue meropenem and vancomycin.
[2017-07-09] MEDS: Dextrose 5%/0.45% NS 1,000 ML IV SCH ×2 (01:13→12:12)
[2017-07-09] MEDS: Vancomycin 1 gm/NS 200 ml 1 GM/200 ML BAG IVPB SCH ×2 (01:14→12:13)
[2017-07-09] MEDS: DiphenhydrAMINE 50 mg/ml Inj IVP PRN ×7 (02:06→21:37)
[2017-07-09] MEDS: Meropenem 1 GM in Dextrose 5% In Water 100 ML IVPB SCH (05:17)
--- NOTE | 2017-07-09 06:59 | CARD ---
APPROVED REPORT EXAM: Two-dimensional and M-mode echocardiogram with Doppler and color Doppler. Other Information Quality : GoodRhythm : NSR INDICATION Infection:Rule out subacute bacterial endocarditis Pulmonary Embolism Chest Pain FEVER, DIARRHEA, CROHN'S DISEASE M-Mode DIMENSIONS RVDd2.64 (2.1-3.2cm)Left Atrium (MM)2.37 (2.5-4.0cm) IVSd0.82 (0.7-1.1cm)Aortic Root2.55 (2.2-3.7cm) LVDd4.46 (4.0-5.6cm)Aortic Cusp Exc.1.91 (1.5-2.0cm) PWd0.64 (0.7-1.1cm)FS (%) 38 % LVDs2.76 (2.0-3.8cm)LVEF (%)68 (>50%) Mitral Valve MV E Wuahsrnt89.0cm/sMV A Palrhyba71.3cm/sE/A ratio1.3 TDI E/Lateral E'0.0E/Medial E'0.0 Tricuspid Valve TR Peak [id number]/sTR Peak [id number] LEFT VENTRICLE The left ventricle is normal size. There is normal left ventricular wall thickness. Left ventricle systolic function is normal. The Ejection Fraction is 65-70%. There is normal LV segmental wall motion. The left ventricular diastolic function is normal. RIGHT VENTRICLE The right ventricle is normal size. There is normal right ventricular wall thickness. The right ventricular systolic function is normal. ATRIA The left atrium size is normal. The right atrium size is normal. The interatrial septum is intact with no evidence for an atrial septal defect. AORTIC VALVE The aortic valve is normal in structure. No aortic regurgitation is present. MITRAL VALVE The mitral valve is normal in structure. There is no mitral valve regurgitation noted. TRICUSPID VALVE The tricuspid valve is normal in structure. There is trace tricuspid regurgitation. Right ventricular systolic pressure is estimated at less than 30 mmHg. There is no pulmonary hypertension. PULMONIC VALVE The pulmonic valve is not well visualized. There is mild pulmonic valvular regurgitation. GREAT VESSELS The aortic root is normal in size. PERICARDIAL EFFUSION There is no significant pericardial effusion. <Conclusion> Left ventricle systolic function is normal. The Ejection Fraction is 65-70%. No aortic regurgitation is present. There is no mitral valve regurgitation noted. There is trace tricuspid regurgitation. There is no pulmonary hypertension. There is mild pulmonic valvular regurgitation.
--- NOTE | 2017-07-09 09:00 | CP.PCM.PN ---
Subjective - Date & Time of Evaluation Date of Evaluation: 07/09/17 Time of Evaluation: 08:40 - Subjective Subjective: clinically same Objective - Vital Signs/Intake and Output Vital Signs (last 24 hours): Temp Pulse Resp BP Pulse Ox 97.7 F 102 H 20 100/65 96 07/09/17 08:03 07/09/17 08:03 07/09/17 08:03 07/09/17 08:03 07/09/17 08:03 Intake and Output: 07/09/17 07/09/17 06:59 18:59 Intake Total 1300 Balance 1300 - Medications Medications: Current Medications Diphenhydramine HCl (Benadryl) 25 mg IVP Q3 PRN PRN Reason: Itching Last Admin: 07/09/17 08:17 Dose: 25 mg Hydromorphone HCl (Dilaudid) 2 mg IVP Q3 PRN PRN Reason: Pain, severe (8-10) Last Admin: 07/09/17 08:17 Dose: 2 mg Hydromorphone HCl (Dilaudid) 0.5 mg IVP Q6H PRN PRN Reason: Pain, moderate (4-7) Last Admin: 07/08/17 02:55 Dose: 0.5 mg Meropenem 1 gm/ Dextrose 100 mls @ 100 mls/hr IVPB Q8 [facility] Last Admin: 07/09/17 05:17 Dose: 100 mls/hr Vancomycin/Sodium Chloride (Vancomycin 1 Gm/Ns 200 Ml) 1 gm in 200 mls @ 166.7 mls/hr IVPB Q12H [facility] Stop: 07/12/17 01:01 Last Admin: 07/09/17 01:14 Dose: 166.7 mls/hr Ondansetron HCl (Zofran Inj) 4 mg IVP Q8 [facility] Last Admin: 07/09/17 05:17 Dose: 4 mg Pantoprazole Sodium (Protonix Ec Tab) 40 mg PO BID [facility] Last Admin: 07/08/17 17:06 Dose: 40 mg - Labs Labs: 07/07/17 08:13 07/07/17 08:13 PT 12.8 SECONDS (9.7-12.2) H 07/07/17 08:13 INR 1.1 07/07/17 08:13 APTT 29 SECONDS (21-34) 07/07/17 08:13 - Constitutional Appears: Well - Head Exam Head Exam: ATRAUMATIC, NORMAL INSPECTION, NORMOCEPHALIC - Eye Exam Eye Exam: EOMI, Normal appearance, PERRL Pupil Exam: NORMAL ACCOMODATION, PERRL - ENT Exam ENT Exam: Mucous Membranes Moist, Normal Exam - Neck Exam Neck Exam: Full ROM, Normal Inspection. absent: Lymphadenopathy - Respiratory Exam Respiratory Exam: Decreased Breath Sounds - Cardiovascular Exam Cardiovascular Exam: REGULAR RHYTHM, +S1, +S2 - GI/Abdominal Exam GI & Abdominal Exam: Soft, Diminished Bowel Sounds - Rectal Exam Rectal Exam: Deferred
[2017-07-09] MEDS: Pantoprazole 40 mg EC Tab PO SCH ×2 (09:22→17:01)
[2017-07-09 11:26] LABS: BASO # 0.2 K/uL (0.0-0.2); BASO % 0.8 % (0.0-2.0); EOS # 0.3 K/uL (0.0-0.7); HEMATOCRIT 38.3 % (35.0-51.0); LYMPH # 2.1 K/uL (1.0-4.3); LYMPH % 8.3 % (20.0-40.0); MEAN CELL VOLUME 72.6 fL (80.0-94.0); MEAN CORPUSCULAR HEMOGLOBIN 22.1 pg (27.0-31.0); MEAN CORPUSCULAR HGB CONC 30.4 g/dL (33.0-37.0); MONO # 1.7 K/uL (0.0-0.8); MONO % 6.8 % (0.0-10.0); NRBC % 0.1 % (0.0-2.0); PLATELET COUNT 316 K/uL (130-400); RED CELL DISTRIBUTION WIDTH 21.3 % (11.5-14.5)
[2017-07-09] MEDS ORDERED: Iohexol 240 (50 ml) PO ONE (11:45)
[2017-07-09 12:00] LABS: WHITE BLOOD COUNT 24.8 K/uL (4.8-10.8)
[2017-07-09 12:04] LABS: ALB/GLOB RATIO 0.9 (1.0-2.1); ALKALINE PHOSPHATASE 101 U/L (38-126); ALT/SGPT 57 U/L (21-72); AST/SGOT 40 U/L (17-59); BILIRUBIN,TOTAL 0.7 mg/dL (0.2-1.3); BLOOD UREA NITROGEN 7 mg/dL (9-20); CALCIUM 8.7 mg/dl (8.6-10.4); CARBON DIOXIDE 28 mmol/L (22-30); CHLORIDE 97 mmol/L (98-107); GFR AFRICAN-AMERICAN > 60; GLUCOSE,RANDOM 95 mg/dL (75-110); POTASSIUM 4.1 mmol/L (3.6-5.2); SODIUM 133 mmol/L (132-148)
[2017-07-09 12:40] LABS: NEUTROPHIL 73 % (50-75); REACTIVE LYMPHOCYTES 1 % (0-0); TOTAL CELLS COUNTED 100
[2017-07-09 12:41] LABS: GIANT PLATELETS PRESENT
[2017-07-09] MEDS: Meropenem 1 GM in Sodium Chloride 0.9% 100 ML IVPB SCH ×2 (13:34→21:36)
--- NOTE | 2017-07-09 14:55 | PN ---
SUBJECTIVE: The patient has had positive blood cultures. When I asked him he did complain of having hesitancy and having pain when he has urine, and he says he has never had like that. He has the urge to go and it does not come out, and he says when it comes out, it is painful. He has been complaining of abdominal pain also, and he did come in with hematemesis and he says still he coughs up blood but it is getting less. He was on steroids before, and I think that may have contributed to gastritis. He recently had a EGD as I understand and GI is following. He also has a new Port-A-Cath and it is worrisome to have Port-A-Cath along at that time and he has been having this cultures positive. PHYSICAL EXAMINATION: VITAL SIGNS: T-max is 97.7, pulse is 98, blood pressure 114/77, and respirations are 20. HEENT: Atraumatic and normocephalic. CHEST: Port-A-Cath is present on the left side. LUNGS: Clear. HEART: S1 and S2 is regular. ABDOMEN: Remains with the colostomy and colostomy has since solid BM. EXTREMITIES: Remain without any edema. GENITOURINARY: He does have excoriation between his buttocks extending to the perineum which was not assessed today, however, the cultures have not been finalized. LABORATORY DATA: White count is 14.1, hemoglobin 10.6, hematocrit 33.8, platelet count is 303. His INR is 1.1. Sodium is 134, potassium 3.6, chloride 99, CO2 is 27, anion gap is 12, BUN is 5, creatinine is 0.7, so that remains unremarkable. However the cultures, urine has a gram-negative tahir. Blood has gram-negative as well as gram-positive. One set is positive and one is negative and same happened on 07/06 and similar scenario with 07/07. At this time, I am waiting for the culture report, and I may have to repeat the CAT scan as he is still complaining of hematemesis and also has these gram-negative UTI with bacteriemia it seems. Right now, the Port-A-Cath appears unremarkable, but if this is true bacteremia, we will have to follow very closely to rule out any Port-A-Cath infection either also. So, there are multiple sources of infection at this time. We will continue the meropenem as well as the vancomycin, and he is on meropenem 1 g q. 8 and he is on vancomycin 1 g q. 12. He also had an echocardiogram to rule out vegetation and we will follow those. Santosh Daniel MD
[2017-07-09] MEDS: Gentamicin 60mg/50ml NS 60 MG/50 ML BAG IVPB SCH ×2 (15:26→22:44)
--- NOTE | 2017-07-09 17:01 | CT ---
CT chest, abdomen, and pelvis without IV contrast Indication: Rule out sepsis Technique: Contiguous axial images of the chest, abdomen, and pelvis without oral or IV contrast. Coronal and Sagittal reformats generated and reviewed. This CT exam was performed using 1 or more of the falling dose reduction techniques: Automated exposure control, adjustment of the MAA and/or kV according to patient size, and/or use of iterative reconstruction technique. Radiation dose: Total exam DLP = 899.95 MGy-cm. Comparison: CT abdomen pelvis with contrast performed 06/20/17 Findings: Left IJ approach central venous catheter extends to the proximal right atrium. Visualized portions of the inferior thyroid gland appear unremarkable. The unenhanced mediastinal and hilar vascular structures appear grossly unremarkable. The heart appears within normal limits of size. No focal consolidation. No pleural effusion. No pneumothorax. No suspicious pulmonary nodules measuring greater than 5 mm. Mild gynecomastia. The noncontrast liver, spleen, kidneys, pancreas, adrenal glands, and gallbladder appear unremarkable. The stomach is nondistended. Lack of oral contrast limits evaluation for bowel pathology. Left lower quadrant ostomy. Anastomotic suture material within the right colon. The bowel loops appear within normal limits of caliber without evidence of intestinal obstruction. There is no definite free air. Under distended urinary bladder appears grossly unremarkable. Interval resolution of small fluid collection within the posterior subcutaneous soft tissues at the level of the superior sacrum with mild skin thickening or soft tissue scar remaining. No acute osseous abnormality is detected. Impression: Left IJ approach central venous catheter extends to the proximal right atrium. Left lower quadrant ostomy. Interval resolution of small fluid collection within the posterior subcutaneous soft tissues at the level of the superior sacrum with mild skin thickening or soft tissue scar remaining.
--- NOTE | 2017-07-09 18:52 | CP.PCM.PN ---
Subjective - Date & Time of Evaluation Date of Evaluation: 07/09/17 Time of Evaluation: 06:40 - Subjective Subjective: dictated Objective - Vital Signs/Intake and Output Vital Signs (last 24 hours): Temp Pulse Resp BP Pulse Ox 98 F 104 H 20 112/73 98 07/09/17 12:43 07/09/17 12:43 07/09/17 12:43 07/09/17 12:43 07/09/17 12:43 Intake and Output: 07/09/17 07/09/17 06:59 18:59 Intake Total 1300 1000 Balance 1300 1000 - Medications Medications: Current Medications Diphenhydramine HCl (Benadryl) 25 mg IVP Q3 PRN PRN Reason: Itching Last Admin: 07/09/17 18:35 Dose: 25 mg Hydromorphone HCl (Dilaudid) 2 mg IVP Q3 PRN PRN Reason: Pain, severe (8-10) Last Admin: 07/09/17 18:35 Dose: 2 mg Hydromorphone HCl (Dilaudid) 0.5 mg IVP Q6H PRN PRN Reason: Pain, moderate (4-7) Last Admin: 07/08/17 02:55 Dose: 0.5 mg Vancomycin/Sodium Chloride (Vancomycin 1 Gm/Ns 200 Ml) 1 gm in 200 mls @ 166.7 mls/hr IVPB Q12H [facility] Stop: 07/12/17 01:01 Last Admin: 07/09/17 12:13 Dose: 166.7 mls/hr Meropenem 1 gm/ Sodium (Chloride) 100 mls @ 100 mls/hr IVPB Q8 [facility] Last Admin: 07/09/17 13:34 Dose: 100 mls/hr Gentamicin Sulfate/Sodium Chloride (Gentamicin 60mg/50ml Ns) 60 mg in 50 mls @ 50 mls/hr IVPB Q8H [facility] Last Admin: 07/09/17 15:26 Dose: 50 mls/hr Ondansetron HCl (Zofran Inj) 4 mg IVP Q8 [facility] Last Admin: 07/09/17 13:35 Dose: Not Given Pantoprazole Sodium (Protonix Ec Tab) 40 mg PO BID [facility] Last Admin: 07/09/17 17:01 Dose: 40 mg - Labs Labs: 07/09/17 11:17 07/09/17 11:17 PT 12.8 SECONDS (9.7-12.2) H 07/07/17 08:13 INR 1.1 07/07/17 08:13 APTT 29 SECONDS (21-34) 07/07/17 08:13
[2017-07-10] MEDS: DiphenhydrAMINE 50 mg/ml Inj IVP PRN ×7 (01:10→22:26)
[2017-07-10] MEDS: Dextrose 5%/0.45% NS 1,000 ML IV SCH ×3 (01:16→21:16)
[2017-07-10] MEDS: Vancomycin 1 gm/NS 200 ml 1 GM/200 ML BAG IVPB SCH ×2 (01:20→12:06)
--- NOTE | 2017-07-10 03:59 | PN ---
SUBJECTIVE: The patient was seen yesterday where he had a fever of 101.8 in spite of being on vancomycin and Merrem. He did complain of dysuria yesterday. He is still throwing up blood, he says everyday and since he has been on Remicade, we will keep him in isolation and we will get a gold QuantiFERON test. He is off the Lovenox also as he has been spitting blood and his white count went up with repeat labs. He had chills yesterday. Blood cultures were again done and he says when he does not have fever, he feels fine. When the fever comes on, he has headache and of course, he had a high fever and he is started on IV fluids. PHYSICAL EXAMINATION: VITAL SIGNS: T-max is 98. pulse 104, blood pressure 112/73, respirations are 20. HEENT: Head is atraumatic and normocephalic. Pupils are reacting to light. NECK: Supple. Left side has fluids going and Port-A-Cath appears to be unremarkable otherwise. LUNGS: Clear. HEART: S1 and S2 is tachycardic. ABDOMEN: Has a colostomy bag. He has some upper epigastric pain when he came in. He has had endoscopy done recently. EXTREMITIES: Have no edema, clubbing, or cyanosis. His back wound in the lumbar area are better, but in between the buttocks, he still has excoriated skin and I did not see the perineum. LABORATORY DATA: White count is 24.8, hemoglobin 11.7, hematocrit 38.3, platelet count is 316. His white count jumped from 14.1 to 24.8 and he has been febrile. There are 16 bands today reported with his change from yesterday. Potassium is 4.1, BUN is 7, creatinine 0.8 and micro-perez, his culture however from 07/07, one culture came back positive with Pseudomonas and coagulase negative and the other culture is negative. However, it is unclear if culture was through the Port-A-Cath or peripheral. Urine also has Pseudomonas and same was the blood culture on 07/06, Pseudomonas and coagulase negative, and at that time, it also had Stenotrophomonas maltophilia which is only Bactrim sensitive. So, at this time, I have left him on vancomycin, meropenem, and added gentamicin. We will follow. He suffers from Crohn disease, has been on Remicade. At this time, he has a Port-A-Cath. He has UTI with bacteremia. We did total CT as he has been coughing up blood and now the exam came by of the CAT scan showing there is no focal infiltrate, no pneumothorax, no suspicious pulmonary nodule measuring greater than 5 mm. It states the left IJ central venous catheter extended to the proximal right atrium, a portion of the inferior thyroid gland appears unremarkable. Medial and hilar vascular structures are normal. Heart is within normal limits. No focal infiltrate, mild gynecomastia. Non-contrast liver, spleen, kidney, pancreas, adrenal, gallbladder appears unremarkable. Stomach is nondistended, lower left lack of oral contrast limits evaluation for bowel pathology, left lower quadrant ostomy, anastomotic sutures are seen in the right colon and under distended urinary bladder appears grossly unremarkable. Interval resolution of small fluid collection within the posterior subcutaneous soft tissue at the level of superior sacrum and mild skin thickening of the soft tissue scar remaining. No acute osseous abnormality. So, there was nothing much noted for it to contribute to this bacteremia. Most likely, he had UTI with urosepsis, septicemia, but he has a Port-A-Cath and he is still spiting temps, so we will need to follow with repeated cultures and we will do cultures on Thursday with blood and urine again but we will repeat the labs tomorrow and we will follow with the primary and with the surgeon. If he continues to have fever, I would definitely change the Port-A-Cath also. Santosh Daniel MD
[2017-07-10] MEDS: Gentamicin 60mg/50ml NS 60 MG/50 ML BAG IVPB SCH ×2 (05:51→14:17)
[2017-07-10] MEDS: Meropenem 1 GM in Sodium Chloride 0.9% 100 ML IVPB SCH ×3 (06:58→21:15)
[2017-07-10 07:17] LABS: BASO # 0.1 K/uL (0.0-0.2); BASO % 0.6 % (0.0-2.0); EOS # 0.4 K/uL (0.0-0.7); EOS % 3.4 % (0.0-4.0); HEMATOCRIT 34.2 % (35.0-51.0); LYMPH # 2.8 K/uL (1.0-4.3); LYMPH % 26.8 % (20.0-40.0); MEAN CELL VOLUME 73.3 fL (80.0-94.0); MEAN CORPUSCULAR HEMOGLOBIN 22.9 pg (27.0-31.0); MEAN CORPUSCULAR HGB CONC 31.2 g/dL (33.0-37.0); MEAN PLATELET VOLUME 8.3 fL (7.2-11.7); MONO % 9.2 % (0.0-10.0); NRBC % 0.1 % (0.0-2.0)
[2017-07-10 07:23] LABS: WHITE BLOOD COUNT 10.6 K/uL (4.8-10.8)
[2017-07-10 07:34] LABS: ALKALINE PHOSPHATASE 95 U/L (38-126); ALT/SGPT 56 U/L (21-72); AST/SGOT 33 U/L (17-59); BILIRUBIN,TOTAL 0.2 mg/dL (0.2-1.3); BLOOD UREA NITROGEN 7 mg/dL (9-20); CALCIUM 7.7 mg/dl (8.6-10.4); CARBON DIOXIDE 29 mmol/L (22-30); CHLORIDE 100 mmol/L (98-107); GFR AFRICAN-AMERICAN > 60; GLUCOSE,RANDOM 94 mg/dL (75-110); POTASSIUM 3.9 mmol/L (3.6-5.2); SODIUM 137 mmol/L (132-148)
[2017-07-10 07:35] LABS: ALB/GLOB RATIO 0.9 (1.0-2.1)
--- NOTE | 2017-07-10 07:55 | CP.PCM.PN ---
<FinessealexAlex - Last Filed: 07/10/17 07:53> Subjective - Date & Time of Evaluation Date of Evaluation: 07/10/17 Time of Evaluation: 07:53 - Subjective Subjective: Surgery: Dr. Taylor Pt seen and examined. Resting comfortably in bed. He states that he vomited blood overnight. Has been having intermittent fevers. Abd pain persists. Objective - Vital Signs/Intake and Output Vital Signs (last 24 hours): Temp Pulse Resp BP Pulse Ox 98.7 F 111 H 20 103/56 L 98 07/09/17 23:09 07/09/17 23:09 07/09/17 23:09 07/09/17 23:09 07/09/17 23:09 Intake and Output: 07/10/17 07/10/17 06:59 18:59 Intake Total 2150 Balance 2150 - Medications Medications: Current Medications Diphenhydramine HCl (Benadryl) 25 mg IVP Q3 PRN PRN Reason: Itching Last Admin: 07/10/17 05:50 Dose: 25 mg Hydromorphone HCl (Dilaudid) 0.5 mg IVP Q6H PRN PRN Reason: Pain, moderate (4-7) Last Admin: 07/08/17 02:55 Dose: 0.5 mg Hydromorphone HCl (Dilaudid) 2 mg IVP Q3H PRN PRN Reason: Pain, severe (8-10) Last Admin: 07/10/17 05:50 Dose: 2 mg Vancomycin/Sodium Chloride (Vancomycin 1 Gm/Ns 200 Ml) 1 gm in 200 mls @ 166.7 mls/hr IVPB Q12H [facility] Stop: 07/12/17 01:01 Last Admin: 07/10/17 01:20 Dose: 166.7 mls/hr Meropenem 1 gm/ Sodium (Chloride) 100 mls @ 100 mls/hr IVPB Q8 [facility] Last Admin: 07/10/17 06:58 Dose: 100 mls/hr Gentamicin Sulfate/Sodium Chloride (Gentamicin 60mg/50ml Ns) 60 mg in 50 mls @ 50 mls/hr IVPB Q8H [facility] Last Admin: 07/10/17 05:51 Dose: 50 mls/hr Dextrose/Sodium Chloride (Dextrose 5%/0.45% Ns 1000 Ml) 1,000 mls @ 100 mls/hr IV .Q10H [facility] Last Admin: 07/10/17 01:16 Dose: 100 mls/hr Ondansetron HCl (Zofran Inj) 4 mg IVP Q8 [facility] Last Admin: 07/10/17 06:59 Dose: 4 mg Pantoprazole Sodium (Protonix Ec Tab) 40 mg PO BID [facility] Last Admin: 07/09/17 17:01 Dose: 40 mg - Labs Labs: 07/10/17 07:03 07/10/17 07:03 PT 12.8 SECONDS (9.7-12.2) H 07/07/17 08:13 INR 1.1 07/07/17 08:13 APTT 29 SECONDS (21-34) 07/07/17 08:13 - Constitutional Appears: Non-toxic, No Acute Distress - Head Exam Head Exam: ATRAUMATIC, NORMOCEPHALIC - Eye Exam Eye Exam: EOMI - ENT Exam ENT Exam: Mucous Membranes Moist - Neck Exam Neck Exam: Full ROM - Respiratory Exam Respiratory Exam: NORMAL BREATHING PATTERN. absent: Accessory Muscle Use, Respiratory Distress - GI/Abdominal Exam GI & Abdominal Exam: Soft, Tenderness. absent: Distended - Neurological Exam Neurological Exam: Alert, Awake, Oriented x3 - Psychiatric Exam Psychiatric exam: Normal Affect, Normal Mood - Skin Additional comments: L side portacath, no erythema, no tenderness, no signs of infection Assessment and Plan - Assessment and Plan (Free Text) Assessment: 22M w. bacteremia w. portacath as possible source -ID recommendations noted -Possible portacath removal pending repeat blood cx results -will d/w attending Zemaitis PGY3 <Temo Taylor B - Last Filed: 07/12/17 11:50> Objective - Vital Signs/Intake and Output Vital Signs (last 24 hours): Temp Pulse Resp BP Pulse Ox 97.4 F L 93 H 20 108/68 97 07/12/17 07:56 07/12/17 07:56 07/12/17 07:56 07/12/17 07:56 07/12/17 07:56 Intake and Output: 07/12/17 07/12/17 06:59 18:59 Intake Total 800 Balance 800 - Medications Medications: Current Medications Diphenhydramine HCl (Benadryl) 25 mg IVP Q3 PRN PRN Reason: Itching Last Admin: 07/12/17 08:41 Dose: 25 mg Hydromorphone HCl (Dilaudid) 2 mg IVP Q3H PRN PRN Reason: Pain, severe (8-10) Last Admin: 07/12/17 08:41 Dose: 2 mg Dextrose/Sodium Chloride (Dextrose 5%/0.45% Ns 1000 Ml) 1,000 mls @ 100 mls/hr IV .Q10H [facility] Last Admin: 07/12/17 09:30 Dose: 100 mls/hr Gentamicin Sulfate 70 mg/ (Sodium Chloride) 51.75 mls @ 100 mls/hr IVPB Q8H [facility] Last Admin: 07/12/17 05:33 Dose: 100 mls/hr Meropenem 1 gm/ Sodium (Chloride) 50 mls @ 100 mls/hr IVPB Q8 [facility] Last Admin: 07/12/17 06:44 Dose: 100 mls/hr Ondansetron HCl (Zofran Inj) 4 mg IVP Q8 [facility] Last Admin: 07/12/17 06:44 Dose: 4 mg Pantoprazole Sodium (Protonix Ec Tab) 40 mg PO BID [facility] Last Admin: 07/12/17 09:30 Dose: 40 mg - Labs Labs: 07/10/17 07:03 07/10/17 07:03 PT 12.8 SECONDS (9.7-12.2) H 07/07/17 08:13 INR 1.1 07/07/17 08:13 APTT 29 SECONDS (21-34) 07/07/17 08:13 Attending/Attestation - Attestation I have personally seen and examined this patient.: Yes I have fully participated in the care of the patient.: Yes I have reviewed all pertinent clinical information, including history, physical exam and plan: Yes Notes (Text): Pt with Crohns dis with perineal wound with Positive blood culture with Upper GI Bleed Upper GI bleed is due to Esophagitis as per GI team Pt is stable clinically C/w IV antibiotics OR for Removal of Portacath on thursday Plan d/w pt in detail. Risk and benefit explained in detail.
[2017-07-10] MEDS: HYDROmorphone 0.5 mg/0.5 ml ISec IVP PRN (09:05)
[2017-07-10] MEDS: Pantoprazole 40 mg EC Tab PO SCH ×2 (09:05→17:09)
--- NOTE | 2017-07-10 17:43 | CP.PCM.PN ---
Subjective - Date & Time of Evaluation Date of Evaluation: 07/10/17 Time of Evaluation: 03:40 - Subjective Subjective: dictated Objective - Vital Signs/Intake and Output Vital Signs (last 24 hours): Temp Pulse Resp BP Pulse Ox 97.7 F 101 H 20 101/69 96 07/10/17 16:27 07/10/17 16:27 07/10/17 16:27 07/10/17 16:27 07/10/17 16:27 Intake and Output: 07/10/17 07/10/17 06:59 18:59 Intake Total 2150 Balance 2150 - Medications Medications: Current Medications Diphenhydramine HCl (Benadryl) 25 mg IVP Q3 PRN PRN Reason: Itching Last Admin: 07/10/17 16:15 Dose: 25 mg Hydromorphone HCl (Dilaudid) 0.5 mg IVP Q6H PRN PRN Reason: Pain, moderate (4-7) Last Admin: 07/10/17 09:05 Dose: 0.5 mg Hydromorphone HCl (Dilaudid) 2 mg IVP Q3H PRN PRN Reason: Pain, severe (8-10) Last Admin: 07/10/17 16:15 Dose: 2 mg Vancomycin/Sodium Chloride (Vancomycin 1 Gm/Ns 200 Ml) 1 gm in 200 mls @ 166.7 mls/hr IVPB Q12H [facility] Stop: 07/12/17 01:01 Last Admin: 07/10/17 12:06 Dose: 166.7 mls/hr Meropenem 1 gm/ Sodium (Chloride) 100 mls @ 100 mls/hr IVPB Q8 [facility] Last Admin: 07/10/17 15:00 Dose: 100 mls/hr Gentamicin Sulfate/Sodium Chloride (Gentamicin 60mg/50ml Ns) 60 mg in 50 mls @ 50 mls/hr IVPB Q8H [facility] Last Admin: 07/10/17 14:17 Dose: 50 mls/hr Dextrose/Sodium Chloride (Dextrose 5%/0.45% Ns 1000 Ml) 1,000 mls @ 100 mls/hr IV .Q10H [facility] Last Admin: 07/10/17 01:16 Dose: 100 mls/hr Ondansetron HCl (Zofran Inj) 4 mg IVP Q8 [facility] Last Admin: 07/10/17 14:17 Dose: 4 mg Pantoprazole Sodium (Protonix Ec Tab) 40 mg PO BID [facility] Last Admin: 07/10/17 17:09 Dose: 40 mg - Labs Labs: 07/10/17 07:03 07/10/17 07:03 PT 12.8 SECONDS (9.7-12.2) H 07/07/17 08:13 INR 1.1 07/07/17 08:13 APTT 29 SECONDS (21-34) 07/07/17 08:13
--- NOTE | 2017-07-10 19:50 | CP.PCM.PN ---
Subjective - Date & Time of Evaluation Date of Evaluation: 07/10/17 Time of Evaluation: 08:00 - Subjective Subjective: clinically same Objective - Vital Signs/Intake and Output Vital Signs (last 24 hours): Temp Pulse Resp BP Pulse Ox 97.7 F 101 H 20 101/69 96 07/10/17 16:27 07/10/17 16:27 07/10/17 16:27 07/10/17 16:27 07/10/17 16:27 - Medications Medications: Current Medications Diphenhydramine HCl (Benadryl) 25 mg IVP Q3 PRN PRN Reason: Itching Last Admin: 07/10/17 19:17 Dose: 25 mg Hydromorphone HCl (Dilaudid) 0.5 mg IVP Q6H PRN PRN Reason: Pain, moderate (4-7) Last Admin: 07/10/17 09:05 Dose: 0.5 mg Hydromorphone HCl (Dilaudid) 2 mg IVP Q3H PRN PRN Reason: Pain, severe (8-10) Last Admin: 07/10/17 19:17 Dose: 2 mg Vancomycin/Sodium Chloride (Vancomycin 1 Gm/Ns 200 Ml) 1 gm in 200 mls @ 166.7 mls/hr IVPB Q12H [facility] Stop: 07/12/17 01:01 Last Admin: 07/10/17 12:06 Dose: 166.7 mls/hr Meropenem 1 gm/ Sodium (Chloride) 100 mls @ 100 mls/hr IVPB Q8 [facility] Last Admin: 07/10/17 15:00 Dose: 100 mls/hr Gentamicin Sulfate/Sodium Chloride (Gentamicin 60mg/50ml Ns) 60 mg in 50 mls @ 50 mls/hr IVPB Q8H [facility] Last Admin: 07/10/17 14:17 Dose: 50 mls/hr Dextrose/Sodium Chloride (Dextrose 5%/0.45% Ns 1000 Ml) 1,000 mls @ 100 mls/hr IV .Q10H [facility] Last Admin: 07/10/17 01:16 Dose: 100 mls/hr Ondansetron HCl (Zofran Inj) 4 mg IVP Q8 [facility] Last Admin: 07/10/17 14:17 Dose: 4 mg Pantoprazole Sodium (Protonix Ec Tab) 40 mg PO BID [facility] Last Admin: 07/10/17 17:09 Dose: 40 mg - Labs Labs: 07/10/17 07:03 07/10/17 07:03 PT 12.8 SECONDS (9.7-12.2) H 07/07/17 08:13 INR 1.1 07/07/17 08:13 APTT 29 SECONDS (21-34) 07/07/17 08:13 - Constitutional Appears: Well - Head Exam Head Exam: ATRAUMATIC, NORMAL INSPECTION, NORMOCEPHALIC - Eye Exam Eye Exam: EOMI, Normal appearance, PERRL Pupil Exam: NORMAL ACCOMODATION, PERRL - ENT Exam ENT Exam: Mucous Membranes Moist, Normal Exam - Neck Exam Neck Exam: Full ROM, Normal Inspection. absent: Lymphadenopathy - Respiratory Exam Respiratory Exam: Decreased Breath Sounds - Cardiovascular Exam Cardiovascular Exam: REGULAR RHYTHM, +S1, +S2 - GI/Abdominal Exam GI & Abdominal Exam: Soft, Diminished Bowel Sounds - Rectal Exam Rectal Exam: Deferred Assessment and Plan (1) Abdominal pain Status: Acute (2) Diarrhea Status: Acute (3) Vomiting Status: Acute (4) Wound of gluteal cleft Status: Acute (5) Abscess Status: Acute (6) Chest pain Status: Acute (7) Chest pain Status: Acute (8) Constipation Status: Acute (9) DVT (deep venous thrombosis) Status: Acute (10) Diarrhea Status: Acute (11) Encounter for wound care Status: Acute (12) Fever Status: Acute (13) Foreign body Status: Acute (14) Hematemesis with nausea Status: Acute (15) Intractable abdominal pain Status: Acute (16) Intractable pain Status: Acute (17) Prophylactic measure Status: Acute (18) Pulmonary embolism Status: Acute (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
--- NOTE | 2017-07-10 20:23 | PN ---
SUBJECTIVE: The patient showed me that he had a lot of bleeding and he shows me this whole blood all around him. His lower lip also has some ulceration at this time. I do not know if he is self-inducing, but bleeding seems to be there. He would like to get eval by GI as well as pulmonary to make sure what is the events happening as this patient is with multiple problems. His Port-A-Cath appears; however, unremarkable. PHYSICAL EXAMINATION: LUNGS: Clear. HEART: S1 and S2 is regular ABDOMEN: He is complaining of abdominal pain, more on the right side. We did a CAT scan, that did not show much. He has colostomy and it was greenish today. The problem is that we cannot give him antibiotics now due to his bacteremia. EXTREMITIES: Have no edema. LABORATORY DATA: Labs come back as urine culture is negative. Blood culture x2 is negative on 07/09, but he did had blood cultures positive for Pseudomonas as well as coagulase negative staph. So, we will continue present treatment. If he remains stable over the weekend, I would take away the gentamicin and leave the vancomycin and the Merrem, but this patient is developing multiple problems and he is having now blood from the mouth either it is from GI or pulmonary, needs to be evaluated. We will discuss with Dr. Eric Barrett, should get a pulmonary involved as well as to call the GI again and I would continue the same antibiotics at this time and will follow, and also would get a vancomycin trough tomorrow. We will follow. Santosh Daniel MD
[2017-07-11] MEDS: DiphenhydrAMINE 50 mg/ml Inj IVP PRN ×8 (01:33→22:59)
[2017-07-11] MEDS: Vancomycin 1 gm/NS 200 ml 1 GM/200 ML BAG IVPB SCH ×2 (01:34→12:55)
[2017-07-11] MEDS: Meropenem 1 GM in Sodium Chloride 0.9% 100 ML IVPB SCH ×2 (06:24→14:00)
[2017-07-11] MEDS: Dextrose 5%/0.45% NS 1,000 ML IV SCH ×3 (06:25→20:04)
[2017-07-11] MEDS: Pantoprazole 40 mg EC Tab PO SCH ×2 (10:53→17:00)
--- NOTE | 2017-07-11 15:58 | CP.PCM.PN ---
Subjective - Date & Time of Evaluation Date of Evaluation: 07/11/17 Time of Evaluation: 08:00 - Subjective Subjective: clinically same Objective - Vital Signs/Intake and Output Vital Signs (last 24 hours): Temp Pulse Resp BP Pulse Ox 97.6 F 90 20 112/82 98 07/11/17 08:01 07/11/17 08:01 07/11/17 08:01 07/11/17 08:01 07/11/17 08:01 Intake and Output: 07/11/17 07/11/17 06:59 18:59 Intake Total 2700 1280 Balance 2700 1280 - Medications Medications: Current Medications Diphenhydramine HCl (Benadryl) 25 mg IVP Q3 PRN PRN Reason: Itching Last Admin: 07/11/17 14:01 Dose: 25 mg Hydromorphone HCl (Dilaudid) 2 mg IVP Q3H PRN PRN Reason: Pain, severe (8-10) Last Admin: 07/11/17 14:01 Dose: 2 mg Vancomycin/Sodium Chloride (Vancomycin 1 Gm/Ns 200 Ml) 1 gm in 200 mls @ 166.7 mls/hr IVPB Q12H [facility] Stop: 07/12/17 01:01 Last Admin: 07/11/17 12:55 Dose: 166.7 mls/hr Meropenem 1 gm/ Sodium (Chloride) 100 mls @ 100 mls/hr IVPB Q8 [facility] Last Admin: 07/11/17 14:00 Dose: 100 mls/hr Dextrose/Sodium Chloride (Dextrose 5%/0.45% Ns 1000 Ml) 1,000 mls @ 100 mls/hr IV .Q10H [facility] Last Admin: 07/11/17 07:03 Dose: Not Given Gentamicin Sulfate 70 mg/ (Sodium Chloride) 51.75 mls @ 100 mls/hr IVPB Q8H [facility] Last Admin: 07/11/17 14:00 Dose: 100 mls/hr Ondansetron HCl (Zofran Inj) 4 mg IVP Q8 [facility] Last Admin: 07/11/17 14:00 Dose: 4 mg Pantoprazole Sodium (Protonix Ec Tab) 40 mg PO BID [facility] Last Admin: 07/11/17 10:53 Dose: 40 mg - Labs Labs: 07/10/17 07:03 07/10/17 07:03 PT 12.8 SECONDS (9.7-12.2) H 07/07/17 08:13 INR 1.1 07/07/17 08:13 APTT 29 SECONDS (21-34) 07/07/17 08:13 - Constitutional Appears: Well - Head Exam Head Exam: ATRAUMATIC, NORMAL INSPECTION, NORMOCEPHALIC - Eye Exam Eye Exam: EOMI, Normal appearance, PERRL Pupil Exam: NORMAL ACCOMODATION, PERRL - ENT Exam ENT Exam: Mucous Membranes Moist, Normal Exam - Neck Exam Neck Exam: Full ROM, Normal Inspection. absent: Lymphadenopathy - Respiratory Exam Respiratory Exam: Decreased Breath Sounds - Cardiovascular Exam Cardiovascular Exam: REGULAR RHYTHM, +S1, +S2 - GI/Abdominal Exam GI & Abdominal Exam: Soft, Diminished Bowel Sounds - Rectal Exam Rectal Exam: Deferred Assessment and Plan (1) Abdominal pain Status: Acute (2) Diarrhea Status: Acute (3) Vomiting Status: Acute (4) Wound of gluteal cleft Status: Acute (5) Abscess Status: Acute (6) Chest pain Status: Acute (7) Chest pain Status: Acute (8) Constipation Status: Acute (9) DVT (deep venous thrombosis) Status: Acute (10) Diarrhea Status: Acute (11) Encounter for wound care Status: Acute (12) Fever Status: Acute (13) Foreign body Status: Acute (14) Hematemesis with nausea Status: Acute (15) Intractable abdominal pain Status: Acute (16) Intractable pain Status: Acute (17) Prophylactic measure Status: Acute (18) Pulmonary embolism Status: Acute (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
[2017-07-12] MEDS: DiphenhydrAMINE 50 mg/ml Inj IVP PRN ×8 (02:12→23:58)
[2017-07-12] MEDS: Dextrose 5%/0.45% NS 1,000 ML IV SCH ×4 (04:24→22:08)
--- NOTE | 2017-07-12 08:22 | CP.PCM.PN ---
Objective - Vital Signs/Intake and Output Vital Signs (last 24 hours): Temp Pulse Resp BP Pulse Ox 97.4 F L 93 H 20 108/68 97 07/12/17 07:56 07/12/17 07:56 07/12/17 07:56 07/12/17 07:56 07/12/17 07:56 Intake and Output: 07/12/17 07/12/17 06:59 18:59 Intake Total 800 Balance 800 - Medications Medications: Current Medications Diphenhydramine HCl (Benadryl) 25 mg IVP Q3 PRN PRN Reason: Itching Last Admin: 07/12/17 05:32 Dose: 25 mg Hydromorphone HCl (Dilaudid) 2 mg IVP Q3H PRN PRN Reason: Pain, severe (8-10) Last Admin: 07/12/17 05:32 Dose: 2 mg Dextrose/Sodium Chloride (Dextrose 5%/0.45% Ns 1000 Ml) 1,000 mls @ 100 mls/hr IV .Q10H [facility] Last Admin: 07/12/17 04:24 Dose: Not Given Gentamicin Sulfate 70 mg/ (Sodium Chloride) 51.75 mls @ 100 mls/hr IVPB Q8H [facility] Last Admin: 07/12/17 05:33 Dose: 100 mls/hr Meropenem 1 gm/ Sodium (Chloride) 50 mls @ 100 mls/hr IVPB Q8 [facility] Last Admin: 07/12/17 06:44 Dose: 100 mls/hr Ondansetron HCl (Zofran Inj) 4 mg IVP Q8 [facility] Last Admin: 07/12/17 06:44 Dose: 4 mg Pantoprazole Sodium (Protonix Ec Tab) 40 mg PO BID [facility] Last Admin: 07/11/17 17:00 Dose: 40 mg - Labs Labs: 07/10/17 07:03 07/10/17 07:03 PT 12.8 SECONDS (9.7-12.2) H 07/07/17 08:13 INR 1.1 07/07/17 08:13 APTT 29 SECONDS (21-34) 07/07/17 08:13
--- NOTE | 2017-07-12 08:58 | CP.PCM.CON ---
<Alex Morales - Last Filed: 07/12/17 09:03> History of Present Illness - History of Present Illness History of Present Illness: Surgery: Dr. Taylor Pt originally seen 07/10/17 at 07:53 CC: Bacteremia / hemoptysis / hematemesis HPI: 22M well known to service w. pmh of crohn's, recurrent abscesses, and DVTs presents w. abd pain and hematemesis/hemoptysis. Pt states that he has chronic abd pain, he states that it has the same characteristics as his multiple prior admissions. However, he now has hematemsis and hemoptysis. He states that this has been occurring intermittently for the past 2 months, but has increased in frequency over the past 2 weeks. Workup during this hospital admission has shown the pt to have pseudomonas and staph bacteremia. Repeat blood cx were done on 07/09, prelim report shows no growth at this time. Pt has been having intermittent fevers throughout admission. Pt had portacath placed at [facility] about 2-3 weeks ago and there is concern that this could be potential source of infection. PMH: see above PSH: colostomy, multiple I&Ds for abscesses Meds: MAR reviewed ALL: morphine Social: No ETOH/tobacco/drugs Fhx: non-contributory Review of Systems - Review of Systems All systems: reviewed and no additional remarkable complaints except (hpi) Past Patient History - Infectious Disease Hx of Infectious Diseases: None - Past Medical History & Family History Past Medical History?: Yes - Past Social History Smoking Status: Never Smoked - CARDIAC Hx Cardiac Disorders: No - PULMONARY Hx Respiratory Disorders: No - NEUROLOGICAL Hx Neurological Disorder: No - HEENT Hx HEENT Problems: No - RENAL Hx Chronic Kidney Disease: No - ENDOCRINE/METABOLIC Hx Endocrine Disorders: No - HEMATOLOGICAL/ONCOLOGICAL Hx Blood Disorders: No - INTEGUMENTARY Hx Dermatological Problems: Yes Other/Comment: Perineal wound. Rectal abcess - MUSCULOSKELETAL/RHEUMATOLOGICAL Hx Musculoskeletal Disorders: No Hx Falls: No - GASTROINTESTINAL Hx Crohn's Disease: Yes (COLOSTOMY 2016) - GENITOURINARY/GYNECOLOGICAL Hx Genitourinary Disorders: No - PSYCHIATRIC Hx Depression: Yes Hx Substance Use: No - SURGICAL HISTORY Hx Surgeries: Yes (SEE COMMENT) Other/Comment: LOOP COLOSTOMY. Perineal wound. Right upper arm PICC line. COLON RESECTION - ANESTHESIA Hx Anesthesia: Yes Hx Anesthesia Reactions: No Hx Malignant Hyperthermia: No Meds Allergies/Adverse Reactions: Allergies Allergy/AdvReac Type Severity Reaction Status Date / Time morphine Allergy Severe ITCHING Verified 07/05/17 21:40 - Medications Medications: Current Medications Diphenhydramine HCl (Benadryl) 25 mg IVP Q3 PRN PRN Reason: Itching Last Admin: 07/12/17 08:41 Dose: 25 mg Hydromorphone HCl (Dilaudid) 2 mg IVP Q3H PRN PRN Reason: Pain, severe (8-10) Last Admin: 07/12/17 08:41 Dose: 2 mg Dextrose/Sodium Chloride (Dextrose 5%/0.45% Ns 1000 Ml) 1,000 mls @ 100 mls/hr IV .Q10H [facility] Last Admin: 07/12/17 04:24 Dose: Not Given Gentamicin Sulfate 70 mg/ (Sodium Chloride) 51.75 mls @ 100 mls/hr IVPB Q8H [facility] Last Admin: 07/12/17 05:33 Dose: 100 mls/hr Meropenem 1 gm/ Sodium (Chloride) 50 mls @ 100 mls/hr IVPB Q8 [facility] Last Admin: 07/12/17 06:44 Dose: 100 mls/hr Ondansetron HCl (Zofran Inj) 4 mg IVP Q8 [facility] Last Admin: 07/12/17 06:44 Dose: 4 mg Pantoprazole Sodium (Protonix Ec Tab) 40 mg PO BID [facility] Last Admin: 07/11/17 17:00 Dose: 40 mg Physical Exam - Constitutional Appears: Non-toxic, No Acute Distress - Head Exam Head Exam: ATRAUMATIC, NORMOCEPHALIC - Eye Exam Eye Exam: EOMI. absent: Scleral icterus - ENT Exam ENT Exam: Mucous Membranes Moist, Normal External Ear Exam - Neck Exam Neck exam: Positive for: Full Rom - Respiratory Exam Respiratory Exam: NORMAL BREATHING PATTERN. absent: Accessory Muscle Use, Respiratory Distress - Cardiovascular Exam Cardiovascular Exam: REGULAR RHYTHM - GI/Abdominal Exam GI & Abdominal Exam: Soft. absent: Distended, Firm, Guarding, Tenderness Additional comments: stoma pink and patent - Extremities Exam Extremities exam: Negative for: calf tenderness, pedal edema - Neurological Exam Neurological exam: Alert, Oriented x3 - Skin Additional comments: L side portacath, no overlying erythema/edema/induration/fluctuance/pus, non- tender to palpation Results - Vital Signs Recent Vital Signs: Last Vital Signs Temp 97.4 F L 07/12/17 07:56 Pulse 93 H 07/12/17 07:56 Resp 20 07/12/17 07:56 BP 108/68 07/12/17 07:56 Pulse Ox 97 07/12/17 07:56 - Labs Result Diagrams: 07/10/17 07:03 07/10/17 07:03 Labs: Laboratory Results - last 24 hr 07/11/17 07/12/17 08:01 07:27 Vancomycin Trough 22.9 H Random Vancomycin 6.61 Assessment & Plan - Assessment and Plan (Free Text) Assessment: 22M w. bacteremia w. portacath as potential source -Tentative OR tomorrow 07/13 for removal of portacath -will f/u w. ID recommendations -d/w attending Andrew PGY3 <Temo Taylor B - Last Filed: 07/12/17 11:59> Meds - Medications Medications: Current Medications Diphenhydramine HCl (Benadryl) 25 mg IVP Q3 PRN PRN Reason: Itching Last Admin: 07/12/17 11:47 Dose: 25 mg Hydromorphone HCl (Dilaudid) 2 mg IVP Q3H PRN PRN Reason: Pain, severe (8-10) Last Admin: 07/12/17 11:48 Dose: 2 mg Dextrose/Sodium Chloride (Dextrose 5%/0.45% Ns 1000 Ml) 1,000 mls @ 100 mls/hr IV .Q10H [facility] Last Admin: 07/12/17 09:30 Dose: 100 mls/hr Gentamicin Sulfate 70 mg/ (Sodium Chloride) 51.75 mls @ 100 mls/hr IVPB Q8H [facility] Last Admin: 07/12/17 05:33 Dose: 100 mls/hr Meropenem 1 gm/ Sodium (Chloride) 50 mls @ 100 mls/hr IVPB Q8 [facility] Last Admin: 07/12/17 06:44 Dose: 100 mls/hr Ondansetron HCl (Zofran Inj) 4 mg IVP Q8 [facility] Last Admin: 07/12/17 06:44 Dose: 4 mg Pantoprazole Sodium (Protonix Ec Tab) 40 mg PO BID [facility] Last Admin: 07/12/17 09:30 Dose: 40 mg Results - Vital Signs Recent Vital Signs: Last Vital Signs Temp 97.4 F L 07/12/17 07:56 Pulse 93 H 07/12/17 07:56 Resp 20 07/12/17 07:56 BP 108/68 07/12/17 07:56 Pulse Ox 97 07/12/17 07:56 - Labs Result Diagrams: 07/10/17 07:03 07/10/17 07:03 Labs: Laboratory Results - last 24 hr 07/12/17 07:27 Random Vancomycin 6.61 Attending/Attestation - Attestation I have personally seen and examined this patient.: Yes I have fully participated in the care of the patient.: Yes I have reviewed all pertinent clinical information: Yes Notes (Text): Pt was seen and examined at bedside Agree with above note and assessment Pt with Upper GI bleed due to esophagitis, Bacterimia Portacath was placed recently at [facility] C/w IV antibiotics Labs and radiology reviewed Plan d.w GI team Plan d.w pt in detail Risk and benefit explained in detail.
[2017-07-12] MEDS: Pantoprazole 40 mg EC Tab PO SCH ×2 (09:30→17:51)
--- NOTE | 2017-07-12 12:33 | CP.PCM.PN ---
Subjective - Date & Time of Evaluation Date of Evaluation: 07/12/17 Time of Evaluation: 08:00 - Subjective Subjective: clinically same Objective - Vital Signs/Intake and Output Vital Signs (last 24 hours): Temp Pulse Resp BP Pulse Ox 97.4 F L 93 H 20 108/68 97 07/12/17 07:56 07/12/17 07:56 07/12/17 07:56 07/12/17 07:56 07/12/17 07:56 Intake and Output: 07/12/17 07/12/17 06:59 18:59 Intake Total 800 Balance 800 - Medications Medications: Current Medications Diphenhydramine HCl (Benadryl) 25 mg IVP Q3 PRN PRN Reason: Itching Last Admin: 07/12/17 11:47 Dose: 25 mg Hydromorphone HCl (Dilaudid) 2 mg IVP Q3H PRN PRN Reason: Pain, severe (8-10) Last Admin: 07/12/17 11:48 Dose: 2 mg Dextrose/Sodium Chloride (Dextrose 5%/0.45% Ns 1000 Ml) 1,000 mls @ 100 mls/hr IV .Q10H [facility] Last Admin: 07/12/17 09:30 Dose: 100 mls/hr Gentamicin Sulfate 70 mg/ (Sodium Chloride) 51.75 mls @ 100 mls/hr IVPB Q8H [facility] Last Admin: 07/12/17 05:33 Dose: 100 mls/hr Meropenem 1 gm/ Sodium (Chloride) 50 mls @ 100 mls/hr IVPB Q8 [facility] Last Admin: 07/12/17 06:44 Dose: 100 mls/hr Ondansetron HCl (Zofran Inj) 4 mg IVP Q8 [facility] Last Admin: 07/12/17 06:44 Dose: 4 mg Pantoprazole Sodium (Protonix Ec Tab) 40 mg PO BID [facility] Last Admin: 07/12/17 09:30 Dose: 40 mg - Labs Labs: 07/10/17 07:03 07/10/17 07:03 PT 12.8 SECONDS (9.7-12.2) H 07/07/17 08:13 INR 1.1 07/07/17 08:13 APTT 29 SECONDS (21-34) 07/07/17 08:13 Assessment and Plan (1) Abdominal pain Status: Acute (2) Diarrhea Status: Acute (3) Vomiting Status: Acute (4) Wound of gluteal cleft Status: Acute (5) Abscess Status: Acute (6) Chest pain Status: Acute (7) Chest pain Status: Acute (8) Constipation Status: Acute (9) DVT (deep venous thrombosis) Status: Acute (10) Diarrhea Status: Acute (11) Encounter for wound care Status: Acute (12) Fever Status: Acute (13) Foreign body Status: Acute (14) Hematemesis with nausea Status: Acute (15) Intractable abdominal pain Status: Acute (16) Intractable pain Status: Acute (17) Prophylactic measure Status: Acute (18) Pulmonary embolism Status: Acute (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
[2017-07-12 13:47] LABS: BASO # 0.1 K/uL (0.0-0.2); BASO % 0.9 % (0.0-2.0); EOS # 0.3 K/uL (0.0-0.7); EOS % 3.4 % (0.0-4.0); HEMATOCRIT 37.1 % (35.0-51.0); LYMPH # 3.7 K/uL (1.0-4.3); LYMPH % 42.5 % (20.0-40.0); MEAN CELL VOLUME 73.1 fL (80.0-94.0); MEAN CORPUSCULAR HEMOGLOBIN 22.7 pg (27.0-31.0); MEAN PLATELET VOLUME 8.2 fL (7.2-11.7); MONO # 0.4 K/uL (0.0-0.8); RED CELL DISTRIBUTION WIDTH 20.2 % (11.5-14.5); WHITE BLOOD COUNT 8.8 K/uL (4.8-10.8)
[2017-07-12 15:11] LABS: ALB/GLOB RATIO 1.1 (1.0-2.1); ALKALINE PHOSPHATASE 103 U/L (38-126); ALT/SGPT 47 U/L (21-72); AST/SGOT 32 U/L (17-59); BILIRUBIN,TOTAL 0.5 mg/dL (0.2-1.3); BLOOD UREA NITROGEN 7 mg/dL (9-20); CALCIUM 7.9 mg/dl (8.6-10.4); CARBON DIOXIDE 25 mmol/L (22-30); CHLORIDE 99 mmol/L (98-107); GFR AFRICAN-AMERICAN > 60; GLUCOSE,RANDOM 157 mg/dL (75-110); POTASSIUM 3.8 mmol/L (3.6-5.2); SODIUM 135 mmol/L (132-148); TOTAL PROTEIN 7.2 g/dL (6.3-8.3)
[2017-07-12] MEDS: Vancomycin 1 gm/NS 200 ml 1 GM/200 ML BAG IVPB SCH (17:50)
[2017-07-13] MEDS: DiphenhydrAMINE 50 mg/ml Inj IVP PRN ×7 (03:03→21:56)
[2017-07-13] MEDS: Vancomycin 1 gm/NS 200 ml 1 GM/200 ML BAG IVPB SCH ×2 (04:12→17:43)
[2017-07-13] MEDS: Pantoprazole 40 mg EC Tab PO SCH ×2 (09:30→17:43)
--- NOTE | 2017-07-13 15:43 | CP.PCM.PN ---
Subjective - Date & Time of Evaluation Date of Evaluation: 07/13/17 Time of Evaluation: 03:15 - Subjective Subjective: dictated Objective - Vital Signs/Intake and Output Vital Signs (last 24 hours): Temp Pulse Resp BP Pulse Ox 98.8 F 99 H 20 112/75 99 07/13/17 15:16 07/13/17 15:16 07/13/17 15:16 07/13/17 15:16 07/13/17 15:16 Intake and Output: 07/13/17 07/13/17 06:59 18:59 Intake Total 800 1000 Balance 800 1000 - Medications Medications: Current Medications Diphenhydramine HCl (Benadryl) 25 mg IVP Q3 PRN PRN Reason: Itching Last Admin: 07/13/17 12:38 Dose: 25 mg Hydromorphone HCl (Dilaudid) 2 mg IVP Q3H PRN PRN Reason: Pain, severe (8-10) Last Admin: 07/13/17 12:37 Dose: 2 mg Gentamicin Sulfate 70 mg/ (Sodium Chloride) 51.75 mls @ 100 mls/hr IVPB Q8H [facility] Last Admin: 07/13/17 14:34 Dose: 100 mls/hr Meropenem 1 gm/ Sodium (Chloride) 50 mls @ 100 mls/hr IVPB Q8 [facility] Last Admin: 07/13/17 14:33 Dose: 100 mls/hr Vancomycin/Sodium Chloride (Vancomycin 1 Gm/Ns 200 Ml) 1 gm in 200 mls @ 133 mls/hr IVPB Q12H [facility] Stop: 07/17/17 17:01 Last Admin: 07/13/17 04:12 Dose: 133 mls/hr Ondansetron HCl (Zofran Inj) 4 mg IVP Q8 [facility] Last Admin: 07/13/17 14:33 Dose: 4 mg Pantoprazole Sodium (Protonix Ec Tab) 40 mg PO BID [facility] Last Admin: 07/13/17 09:30 Dose: 40 mg - Labs Labs: 07/12/17 13:39 07/12/17 13:39 PT 12.8 SECONDS (9.7-12.2) H 07/07/17 08:13 INR 1.1 07/07/17 08:13 APTT 29 SECONDS (21-34) 07/07/17 08:13
[2017-07-13] MEDS: Dextrose 5%/0.45% NS 1,000 ML IV SCH ×2 (15:55→23:43)
--- NOTE | 2017-07-13 16:55 | CP.PCM.PCO ---
Physician Communication Note - Physician Communication Note Physician Communication Note: Will plan for portacath removal Wed if patient agrees
--- NOTE | 2017-07-13 18:51 | CP.PCM.PN ---
Subjective - Date & Time of Evaluation Date of Evaluation: 07/13/17 Time of Evaluation: 08:40 - Subjective Subjective: clinically same Objective - Vital Signs/Intake and Output Vital Signs (last 24 hours): Temp Pulse Resp BP Pulse Ox 98.8 F 99 H 20 112/75 99 07/13/17 15:16 07/13/17 15:16 07/13/17 15:16 07/13/17 15:16 07/13/17 15:16 Intake and Output: 07/13/17 07/13/17 06:59 18:59 Intake Total 800 2300 Balance 800 2300 - Medications Medications: Current Medications Diphenhydramine HCl (Benadryl) 25 mg IVP Q3 PRN PRN Reason: Itching Last Admin: 07/13/17 15:53 Dose: 25 mg Hydromorphone HCl (Dilaudid) 2 mg IVP Q3H PRN PRN Reason: Pain, severe (8-10) Last Admin: 07/13/17 15:54 Dose: 2 mg Gentamicin Sulfate 70 mg/ (Sodium Chloride) 51.75 mls @ 100 mls/hr IVPB Q8H [facility] Last Admin: 07/13/17 14:34 Dose: 100 mls/hr Meropenem 1 gm/ Sodium (Chloride) 50 mls @ 100 mls/hr IVPB Q8 [facility] Last Admin: 07/13/17 14:33 Dose: 100 mls/hr Vancomycin/Sodium Chloride (Vancomycin 1 Gm/Ns 200 Ml) 1 gm in 200 mls @ 133 mls/hr IVPB Q12H [facility] Stop: 07/17/17 17:01 Last Admin: 07/13/17 17:43 Dose: 133 mls/hr Ondansetron HCl (Zofran Inj) 4 mg IVP Q8 [facility] Last Admin: 07/13/17 14:33 Dose: 4 mg Pantoprazole Sodium (Protonix Ec Tab) 40 mg PO BID [facility] Last Admin: 07/13/17 17:43 Dose: 40 mg - Labs Labs: 07/12/17 13:39 07/12/17 13:39 PT 12.8 SECONDS (9.7-12.2) H 07/07/17 08:13 INR 1.1 07/07/17 08:13 APTT 29 SECONDS (21-34) 11/14/17 08:13 Assessment and Plan (1) Abdominal pain Status: Acute (2) Diarrhea Status: Acute (3) Vomiting Status: Acute (4) Wound of gluteal cleft Status: Acute (5) Abscess Status: Acute (6) Chest pain Status: Acute (7) Chest pain Status: Acute (8) Constipation Status: Acute (9) DVT (deep venous thrombosis) Status: Acute (10) Diarrhea Status: Acute (11) Encounter for wound care Status: Acute (12) Fever Status: Acute (13) Foreign body Status: Acute (14) Hematemesis with nausea Status: Acute (15) Intractable abdominal pain Status: Acute (16) Intractable pain Status: Acute (17) Prophylactic measure Status: Acute (18) Pulmonary embolism Status: Acute (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
[2017-07-14] MEDS: DiphenhydrAMINE 50 mg/ml Inj IVP PRN ×8 (01:05→22:20)
[2017-07-14] MEDS: Vancomycin 1 gm/NS 200 ml 1 GM/200 ML BAG IVPB SCH ×2 (04:17→16:05)
[2017-07-14] MEDS: Dextrose 5%/0.45% NS 1,000 ML IV SCH ×3 (04:18→19:20)
--- NOTE | 2017-07-14 04:52 | PN ---
DATE: SUBJECTIVE: He keeps on saying that he is spitting blood out. We will order some sputum cultures again. He remains in isolation, and he also has needs to get that Port-A-Cath removed as he did come in with bacteremia, and I spoke to the surgical nurse practitioner he is in isolation. His lower lip is less swollen now. PHYSICAL EXAMINATION: VITAL SIGNS: T-max is 98.8, pulse 99, blood pressure 112/75, respirations 20. HEENT: Head is atraumatic and normocephalic. NECK: Supple. LUNGS: Clear. No crackles or rales present. HEART: S1, S2 is regular. ABDOMEN: Has a colostomy site, which is functioning. He still remains with excoriation in his buttock but is not complaining much. EXTREMITIES: Have no edema. He is more concerned about his Remicade, which he is supposed to get and which he thinks is helping him. LABORATORY DATA: His blood cultures are now negative. MEDICATIONS: He is back on vancomycin, meropenem, and gentamicin. ASSESSMENT AND PLAN: At this time, we will discontinue the gentamicin, and we will continue vancomycin and meropenem; and also since he is now having this active bleeding that he says, he needs to be seen by Dr. Reynolds, and was ordered yesterday. Dr. Valenzuela will see, and I am waiting for his assessment and we will follow. Also I had ordered Gold QuantiFERON test, results of which is needed at this time. Actually, the TB test came out indeterminate. So we will order sputum C and S for now. We will follow. He has from his last blood culture that was on , we will need to give him two weeks, so he needs the antibiotics till 07/21 and the Port-A-Cath discontinued. Santosh Daniel MD
--- NOTE | 2017-07-14 08:26 | CP.PCM.PN ---
<Jose Almeida - Last Filed: 07/14/17 08:40> Subjective - Date & Time of Evaluation Date of Evaluation: 07/14/17 Time of Evaluation: 07:10 - Subjective Subjective: General Surgery Note for Dr. Taylor Patient seen and examined at bedside. No acute event overnight. Patient will be going for portacath removal tomorrow. Tolerating diet and having output from ostomy. Patient has no new complaints. Objective - Vital Signs/Intake and Output Vital Signs (last 24 hours): Temp Pulse Resp BP Pulse Ox 97.8 F 91 H 20 117/76 98 07/14/17 00:00 07/14/17 00:00 07/14/17 00:00 07/14/17 00:00 07/14/17 00:00 Intake and Output: 07/14/17 07/14/17 06:59 18:59 Intake Total 1600 Balance 1600 - Medications Medications: Current Medications Diphenhydramine HCl (Benadryl) 25 mg IVP Q3 PRN PRN Reason: Itching Last Admin: 07/14/17 06:31 Dose: 25 mg Hydromorphone HCl (Dilaudid) 2 mg IVP Q3H PRN PRN Reason: Pain, severe (8-10) Last Admin: 07/14/17 06:31 Dose: 2 mg Meropenem 1 gm/ Sodium (Chloride) 50 mls @ 100 mls/hr IVPB Q8 [facility] Last Admin: 07/14/17 05:51 Dose: 100 mls/hr Vancomycin/Sodium Chloride (Vancomycin 1 Gm/Ns 200 Ml) 1 gm in 200 mls @ 133 mls/hr IVPB Q12H [facility] Stop: 07/17/17 17:01 Last Admin: 07/14/17 04:17 Dose: 133 mls/hr Dextrose/Sodium Chloride (Dextrose 5%/0.45% Ns 1000 Ml) 1,000 mls @ 100 mls/hr IV .Q10H [facility] Last Admin: 07/14/17 04:25 Dose: 100 mls/hr Ondansetron HCl (Zofran Inj) 4 mg IVP Q8 [facility] Last Admin: 07/14/17 06:30 Dose: 4 mg Pantoprazole Sodium (Protonix Ec Tab) 40 mg PO BID [facility] Last Admin: 07/13/17 17:43 Dose: 40 mg - Labs Labs: 07/12/17 13:39 07/12/17 13:39 PT 12.8 SECONDS (9.7-12.2) H 07/07/17 08:13 INR 1.1 07/07/17 08:13 APTT 29 SECONDS (21-34) 07/07/17 08:13 - Constitutional Appears: No Acute Distress - Head Exam Head Exam: ATRAUMATIC, NORMOCEPHALIC - Eye Exam Eye Exam: Normal appearance - ENT Exam ENT Exam: Mucous Membranes Moist - Respiratory Exam Respiratory Exam: NORMAL BREATHING PATTERN - Cardiovascular Exam Cardiovascular Exam: REGULAR RHYTHM - GI/Abdominal Exam Additional comments: stoma pink patent and functioning properly - Neurological Exam Neurological Exam: Alert, Awake, Oriented x3 - Psychiatric Exam Psychiatric exam: Normal Affect, Normal Mood - Skin Additional comments: portacath in L chest with no overlying erythema or edema (-) induration, purulent drainage or fluctuance Assessment and Plan - Assessment and Plan (Free Text) Plan: 22M with bacteremia and portacath as potential source -OR Sunday 07/15 for removal of portacath -NPO past MN -IV antibitotics as per ID -IV fluids -Will discuss with Dr. Claudia Almeida PGY1 <Temo Taylor - Last Filed: 07/15/17 14:56> Objective - Vital Signs/Intake and Output Vital Signs (last 24 hours): Temp Pulse Resp BP Pulse Ox 97.9 F 83 20 106/75 97 07/15/17 07:53 07/15/17 07:53 07/15/17 07:53 07/15/17 07:53 07/15/17 07:53 - Medications Medications: Current Medications Diphenhydramine HCl (Benadryl) 25 mg IVP Q3 PRN PRN Reason: Itching Last Admin: 07/15/17 11:12 Dose: 25 mg Hydromorphone HCl (Dilaudid) 2 mg IVP Q3H PRN PRN Reason: Pain, severe (8-10) Last Admin: 07/15/17 11:13 Dose: 2 mg Meropenem 1 gm/ Sodium (Chloride) 50 mls @ 100 mls/hr IVPB Q8 [facility] Last Admin: 07/15/17 05:05 Dose: 100 mls/hr Vancomycin/Sodium Chloride (Vancomycin 1 Gm/Ns 200 Ml) 1 gm in 200 mls @ 133 mls/hr IVPB Q12H [facility] Stop: 07/17/17 17:01 Last Admin: 07/15/17 05:05 Dose: 133 mls/hr Dextrose/Sodium Chloride (Dextrose 5%/0.45% Ns 1000 Ml) 1,000 mls @ 100 mls/hr IV .Q10H [facility] Last Admin: 07/15/17 05:03 Dose: Not Given Ondansetron HCl (Zofran Inj) 4 mg IVP Q8 [facility] Last Admin: 07/15/17 05:05 Dose: 4 mg Pantoprazole Sodium (Protonix Ec Tab) 40 mg PO BID [facility] Last Admin: 07/15/17 09:31 Dose: 40 mg - Labs Labs: 07/12/17 13:39 07/12/17 13:39 PT 12.8 SECONDS (9.7-12.2) H 07/07/17 08:13 INR 1.1 07/07/17 08:13 APTT 29 SECONDS (21-34) 07/07/17 08:13 Attending/Attestation - Attestation I have personally seen and examined this patient.: Yes I have fully participated in the care of the patient.: Yes I have reviewed all pertinent clinical information, including history, physical exam and plan: Yes Notes (Text): Pt was seen and examined at bedside Agree with above note and assessment Pt with Gram negative bacteremia with portacath Labs and Radiology reviewed Pt would need Portacath removal Consent C/w IV antibiotics Plan d.w pt in detail Risk and benefit explained in detail
--- NOTE | 2017-07-14 09:06 | CP.PCM.PN ---
Subjective - Date & Time of Evaluation Date of Evaluation: 07/14/17 Time of Evaluation: 09:00 - Subjective Subjective: clinically same Objective - Vital Signs/Intake and Output Vital Signs (last 24 hours): Temp Pulse Resp BP Pulse Ox 97.8 F 91 H 20 117/76 98 07/14/17 00:00 07/14/17 00:00 07/14/17 00:00 07/14/17 00:00 07/14/17 00:00 Intake and Output: 07/14/17 07/14/17 06:59 18:59 Intake Total 1600 Balance 1600 - Medications Medications: Current Medications Diphenhydramine HCl (Benadryl) 25 mg IVP Q3 PRN PRN Reason: Itching Last Admin: 07/14/17 06:31 Dose: 25 mg Hydromorphone HCl (Dilaudid) 2 mg IVP Q3H PRN PRN Reason: Pain, severe (8-10) Last Admin: 07/14/17 06:31 Dose: 2 mg Meropenem 1 gm/ Sodium (Chloride) 50 mls @ 100 mls/hr IVPB Q8 [facility] Last Admin: 07/14/17 05:51 Dose: 100 mls/hr Vancomycin/Sodium Chloride (Vancomycin 1 Gm/Ns 200 Ml) 1 gm in 200 mls @ 133 mls/hr IVPB Q12H [facility] Stop: 07/17/17 17:01 Last Admin: 07/14/17 04:17 Dose: 133 mls/hr Dextrose/Sodium Chloride (Dextrose 5%/0.45% Ns 1000 Ml) 1,000 mls @ 100 mls/hr IV .Q10H [facility] Last Admin: 07/14/17 04:25 Dose: 100 mls/hr Ondansetron HCl (Zofran Inj) 4 mg IVP Q8 [facility] Last Admin: 07/14/17 06:30 Dose: 4 mg Pantoprazole Sodium (Protonix Ec Tab) 40 mg PO BID [facility] Last Admin: 07/13/17 17:43 Dose: 40 mg - Labs Labs: 07/12/17 13:39 07/12/17 13:39 PT 12.8 SECONDS (9.7-12.2) H 07/07/17 08:13 INR 1.1 07/07/17 08:13 APTT 29 SECONDS (21-34) 07/07/17 08:13 Assessment and Plan (1) Abdominal pain Status: Acute (2) Diarrhea Status: Acute (3) Vomiting Status: Acute (4) Wound of gluteal cleft Status: Acute (5) Abscess Status: Acute (6) Chest pain Status: Acute (7) Chest pain Status: Acute (8) Constipation Status: Acute (9) DVT (deep venous thrombosis) Status: Acute (10) Diarrhea Status: Acute (11) Encounter for wound care Status: Acute (12) Fever Status: Acute (13) Foreign body Status: Acute (14) Hematemesis with nausea Status: Acute (15) Intractable abdominal pain Status: Acute (16) Intractable pain Status: Acute (17) Prophylactic measure Status: Acute (18) Pulmonary embolism Status: Acute (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
[2017-07-14] MEDS: Pantoprazole 40 mg EC Tab PO SCH ×2 (09:58→17:46)
--- NOTE | 2017-07-14 14:40 | CP.PCM.PN ---
Subjective - Date & Time of Evaluation Date of Evaluation: 07/14/17 Time of Evaluation: 02:30 - Subjective Subjective: dictated Objective - Vital Signs/Intake and Output Vital Signs (last 24 hours): Temp Pulse Resp BP Pulse Ox 97.7 F 91 H 20 102/68 100 07/14/17 11:52 07/14/17 11:52 07/14/17 11:52 07/14/17 11:52 07/14/17 11:52 Intake and Output: 07/14/17 07/14/17 06:59 18:59 Intake Total 1600 Balance 1600 - Medications Medications: Current Medications Diphenhydramine HCl (Benadryl) 25 mg IVP Q3 PRN PRN Reason: Itching Last Admin: 07/14/17 13:01 Dose: 25 mg Hydromorphone HCl (Dilaudid) 2 mg IVP Q3H PRN PRN Reason: Pain, severe (8-10) Last Admin: 07/14/17 13:01 Dose: 2 mg Meropenem 1 gm/ Sodium (Chloride) 50 mls @ 100 mls/hr IVPB Q8 [facility] Last Admin: 07/14/17 13:00 Dose: 100 mls/hr Vancomycin/Sodium Chloride (Vancomycin 1 Gm/Ns 200 Ml) 1 gm in 200 mls @ 133 mls/hr IVPB Q12H [facility] Stop: 07/17/17 17:01 Last Admin: 07/14/17 04:17 Dose: 133 mls/hr Dextrose/Sodium Chloride (Dextrose 5%/0.45% Ns 1000 Ml) 1,000 mls @ 100 mls/hr IV .Q10H [facility] Last Admin: 07/14/17 04:25 Dose: 100 mls/hr Ondansetron HCl (Zofran Inj) 4 mg IVP Q8 [facility] Last Admin: 07/14/17 13:01 Dose: 4 mg Pantoprazole Sodium (Protonix Ec Tab) 40 mg PO BID [facility] Last Admin: 07/14/17 09:58 Dose: 40 mg Tuberculin PPD (Tubersol) 5 tu ID DAILY@ONCE ONE Stop: 07/14/17 16:01 - Labs Labs: 07/12/17 13:39 07/12/17 13:39 PT 12.8 SECONDS (9.7-12.2) H 07/07/17 08:13 INR 1.1 07/07/17 08:13 APTT 29 SECONDS (21-34) 07/07/17 08:13
[2017-07-14] MEDS ORDERED: Tuberculin 5 Units/0.1 ml Inj ID ONE (16:00)
[2017-07-15] MEDS: DiphenhydrAMINE 50 mg/ml Inj IVP PRN ×7 (01:23→22:49)
--- NOTE | 2017-07-15 03:47 | DS ---
HISTORY OF PRESENT ILLNESS: The patient complains of right jaw pain. He also states there is pain in the neck. He has had DVT in the past. The pain is going to the back of his head too and he is not complained of any pain recently. He is not opening his mouth as he has angular cheilitis also, unable to obtain any information about his dental status and since he has had DVT, we will get a Doppler done for sure right now. He is also having headache. He denies any pain on the left side. He does have a [id number] at this time, which needs to be removed, but he has had PICC lines in the past. T-max is 97.7, pulse 91, blood pressure 102/68 and respirations 20. He everyday complains of spitting out blood that is coming from the GI or pulmonary, it is unclear. PHYSICAL EXAMINATION: GENERAL: He is awake. VITAL SIGNS: T-max is 97.7, pulse 91, blood pressure 102/68 and respirations 20. HEENT: Head is atraumatic, normocephalic. He does have some tenderness on the right face, but no warmth noted. NECK: Supple. LUNGS: Clear. HEART: S1 and S2 is regular. ABDOMEN: He has a colostomy bag. EXTREMITIES: No edema. He has these nonhealing ulcerations on his cheek and between his buttocks which he has not been complaining of much these days. LABORATORY DATA: White count is 8.8, hemoglobin 11.5, hematocrit 37.1 and platelet count is 296. His BUN is 7, creatinine 0.7. Vancomycin trough is noted which was 9.5 and we just took off the gentamicin yesterday after the cultures were negative. Urine culture is negative. Blood cultures are negative. He did had blood cultures positive for coagulase negative staph and pseudomonas, but this time also has indeterminate TB and Gold QuantiFERON test. I have ordered PPD. He is ready to be seen by Pulmonary and we will order Doppler to make sure there is no clot on the right neck and we will refer rest to Dr. Eric Barrett. Santosh Daniel MD
[2017-07-15] MEDS: Dextrose 5%/0.45% NS 1,000 ML IV SCH ×2 (05:03→13:30)
[2017-07-15] MEDS: Vancomycin 1 gm/NS 200 ml 1 GM/200 ML BAG IVPB SCH ×2 (05:05→16:56)
[2017-07-15] MEDS: Pantoprazole 40 mg EC Tab PO SCH ×2 (09:31→16:59)
--- NOTE | 2017-07-15 11:07 | VASCLAB ---
PROCEDURE: Right Upper Extremity Venous Duplex Exam HISTORY: right neck pain r/o dvt PRIORS: None. TECHNIQUE: Right upper extremity, internal jugular, subclavian, axillary, brachial, ulnar, radial, basilic and upper cephalic veins were evaluated. Flow was assessed with color Doppler, compressibility, assessment of phasic flow and augmentation response. Report prepared by MANUEL Valdez, RVT FINDINGS: RIGHT: 1. Internal Jugular: 1.1. Compressibility - Partial: Thrombus - Chronic : Flow - Absent : Augmentation -None: Reflux - None. 2. Subclavian: 2.1. Compressibility - Partial: Thrombus - Chronic : Flow - Reduced : Augmentation -None: Reflux - None. 3. Axillary: 3.1. Compressibility - Partial: Thrombus - Chronic : Flow - Reduced : Augmentation -None: Reflux - None. 4. Brachial: 4.1. Compressibility - Fully compressible: Thrombus - None: Flow - Phasic: Augmentation -Normal: Reflux - None. 5. Ulnar: 5.1. Compressibility - Fully compressible: Thrombus - None: Flow - Phasic: Augmentation -Normal: Reflux - None. 6. Radial: 6.1. Compressibility - Fully compressible: Thrombus - None: Flow - Phasic: Augmentation - Normal: Reflux - None. 7. Cephalic: 7.1. Compressibility - Fully compressible: Thrombus - None: Flow - Phasic: Augmentation -Normal: Reflux - None. 8. Basilic: 8.1. Compressibility - Fully compressible: Thrombus - None: Flow - Phasic: Augmentation -Normal: Reflux - None. OTHER FINDINGS: Right: ASAF Verduzco notified about the findings. 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 Normal venous flow noted in the left internal jugular and left subclavian veins.
[2017-07-15] MEDS ORDERED: Bupivacaine-Epi 0.25%-1:200,000 PF Inj ONE (13:41)
[2017-07-15] MEDS ORDERED: Lidocaine 1% Inj (20ml) ONE (13:41)
[2017-07-15] MEDS ORDERED: Lactated Ringer's 1,000 ML IV ONE (15:00)
[2017-07-15] MEDS ORDERED: Propofol 10 mg/ml Inj (20 ML) ONE (15:04)
[2017-07-15] MEDS ORDERED: Midazolam 2 MG/2 ML VIAL ONE (15:04)
[2017-07-15] MEDS ORDERED: HYDROmorphone 0.5 mg/0.5 ml ISec IVP PRN (15:52)
--- NOTE | 2017-07-15 16:18 | PCM.SURG1 ---
Surgeon's Initial Post Op Note - Surgeon's Notes Surgeon: Dr. Taylor Rn Picu: Dr. Magallanes PGY-3 Type of Anesthesia: IV Sedation, Local Pre-Operative Diagnosis: Possible infected Left portacath Operative Findings: see operative report Post-Operative Diagnosis: Possible infected Left portacath Operation Performed: Removal of left portacath Specimen/Specimens Removed: portacath Estimated Blood Loss: EBL {In ML}: 5 Blood Products Given: N/A Drains Used: No Drains Post-Op Condition: Fair Date of Surgery/Procedure: 07/15/17 Time of Surgery/Procedure: 15:18
--- NOTE | 2017-07-15 16:45 | CP.PCM.CON ---
History of Present Illness - History of Present Illness History of Present Illness: Reason for consultation: Hemoptysis 22-year-old male with history of Crohn's disease on remicade admitted with vomiting associated with diarrhea and chest pain. Patient denies cough, denies hemoptysis, denies epistaxis. Patient states that he vomited blood only once. Patient being treated for Pseudomonas bacteremia secondary to Port-A-Cath. Patient is alert oriented 3. CAT scan of the chest done showed no infiltrate, effusion Patient was recently admitted from 06/22/17-06/24/17 for an abscess to the buttock area that was I&D by Dr. Taylor. H Crohn's Disease (COLOSTOMY 2015) on now Remicade (infliximab) Depression Recent abscess at lumbar/buttock s/p I&D on Cipro and flagyl, but did not finish abx outpt Hx perianal abscess x multiple times Hx thrombus in Right IJ, stopped eliquis since May 2017 due to GI bleed Endoscopy EGD 05/2017: pending Bx Colonoscopy 08/2016 [facility] COLOSTOMY 2015 I&D buttock abscess 05/2017 Multiple abscess draianges Father's sister had Crohn's SH Neg for smoke, drink, drug All Morphine Med remicade Loperamid 2 TID PRN Lactobacillus acidophilus BID Feosol 325 BID B12 1000 Daily, Ascorbic Acid 500 daily Review of Systems - Review of Systems All systems: reviewed and no additional remarkable complaints except (Vomiting) Past Patient History - Infectious Disease Hx of Infectious Diseases: None - Past Medical History & Family History Past Medical History?: Yes - Past Social History Smoking Status: Never Smoked - CARDIAC Hx Cardiac Disorders: No - PULMONARY Hx Respiratory Disorders: No - NEUROLOGICAL Hx Neurological Disorder: No - HEENT Hx HEENT Problems: No - RENAL Hx Chronic Kidney Disease: No - ENDOCRINE/METABOLIC Hx Endocrine Disorders: No - HEMATOLOGICAL/ONCOLOGICAL Hx Blood Disorders: No - INTEGUMENTARY Hx Dermatological Problems: Yes Other/Comment: Perineal wound. Rectal abcess - MUSCULOSKELETAL/RHEUMATOLOGICAL Hx Musculoskeletal Disorders: No Hx Falls: No - GASTROINTESTINAL Hx Crohn's Disease: Yes (COLOSTOMY 2015) - GENITOURINARY/GYNECOLOGICAL Hx Genitourinary Disorders: No - PSYCHIATRIC Hx Depression: Yes Hx Substance Use: No - SURGICAL HISTORY Hx Surgeries: Yes (SEE COMMENT) Other/Comment: LOOP COLOSTOMY. Perineal wound. Right upper arm PICC line. COLON RESECTION - ANESTHESIA Hx Anesthesia: Yes Hx Anesthesia Reactions: No Hx Malignant Hyperthermia: No Meds Allergies/Adverse Reactions: Allergies Allergy/AdvReac Type Severity Reaction Status Date / Time morphine Allergy Severe ITCHING Verified 07/05/17 21:40 - Medications Medications: Current Medications Diphenhydramine HCl (Benadryl) 25 mg IVP Q3 PRN PRN Reason: Itching Last Admin: 07/15/17 11:12 Dose: 25 mg Hydromorphone HCl (Dilaudid) 2 mg IVP Q3H PRN PRN Reason: Pain, severe (8-10) Last Admin: 07/15/17 11:13 Dose: 2 mg Hydromorphone HCl (Dilaudid) 0.5 mg IVP Q5M PRN PRN Reason: Pain, severe (8-10) Stop: 07/15/17 17:52 Last Admin: 07/15/17 15:58 Dose: 0.5 mg Meropenem 1 gm/ Sodium (Chloride) 50 mls @ 100 mls/hr IVPB Q8 [facility] Last Admin: 07/15/17 14:00 Dose: Not Given Vancomycin/Sodium Chloride (Vancomycin 1 Gm/Ns 200 Ml) 1 gm in 200 mls @ 133 mls/hr IVPB Q12H [facility] Stop: 07/17/17 17:01 Last Admin: 07/15/17 05:05 Dose: 133 mls/hr Dextrose/Sodium Chloride (Dextrose 5%/0.45% Ns 1000 Ml) 1,000 mls @ 100 mls/hr IV .Q10H [facility] Last Admin: 07/15/17 13:30 Dose: Not Given Ondansetron HCl (Zofran Inj) 4 mg IVP Q8 [facility] Last Admin: 07/15/17 14:00 Dose: Not Given Pantoprazole Sodium (Protonix Ec Tab) 40 mg PO BID [facility] Last Admin: 07/15/17 09:31 Dose: 40 mg Physical Exam - Head Exam Head Exam: ATRAUMATIC, NORMOCEPHALIC - ENT Exam ENT Exam: Mucous Membranes Moist - Neck Exam Neck exam: Positive for: Normal Inspection - Respiratory Exam Respiratory Exam: Clear to Auscultation Bilateral - Cardiovascular Exam Cardiovascular Exam: REGULAR RHYTHM - GI/Abdominal Exam GI & Abdominal Exam: Normal Bowel Sounds, Soft - Extremities Exam Extremities exam: Positive for: normal inspection - Neurological Exam Neurological exam: Alert, Oriented x3 Results - Vital Signs Recent Vital Signs: Last Vital Signs Temp 98.5 F 07/15/17 15:50 Pulse 81 07/15/17 16:20 Resp 16 07/15/17 16:20 BP 118/62 07/15/17 16:20 Pulse Ox 98 07/15/17 16:05 - Labs Result Diagrams: 07/12/17 13:39 07/12/17 13:39 Assessment & Plan (1) Bacteremia due to Gram-negative bacteria Status: Acute Comment: Bacteremia secondary to Port-A-Cath. Patient denies hemoptysis, denies cough. CAT scan of the chest showed no infiltrate or effusion. Unlikely pulmonary TB. Recommendation as per infectious disease (2) Crohn disease Status: Chronic
[2017-07-15 17:13] VITALS: RESP 20
--- NOTE | 2017-07-15 19:11 | CP.PCM.PN ---
Subjective - Date & Time of Evaluation Date of Evaluation: 07/15/17 Time of Evaluation: 08:40 - Subjective Subjective: clinically same Objective - Vital Signs/Intake and Output Vital Signs (last 24 hours): Temp Pulse Resp BP Pulse Ox 98.2 F 101 H 20 110/73 98 07/15/17 17:12 07/15/17 17:12 07/15/17 17:12 07/15/17 17:12 07/15/17 17:12 Intake and Output: 07/15/17 07/16/17 18:59 06:59 Intake Total 600 Balance 600 - Medications Medications: Current Medications Diphenhydramine HCl (Benadryl) 25 mg IVP Q3 PRN PRN Reason: Itching Last Admin: 07/15/17 16:50 Dose: 25 mg Hydromorphone HCl (Dilaudid) 2 mg IVP Q3H PRN PRN Reason: Pain, severe (8-10) Last Admin: 07/15/17 16:52 Dose: 2 mg Meropenem 1 gm/ Sodium (Chloride) 50 mls @ 100 mls/hr IVPB Q8 [facility] Last Admin: 07/15/17 14:00 Dose: Not Given Vancomycin/Sodium Chloride (Vancomycin 1 Gm/Ns 200 Ml) 1 gm in 200 mls @ 133 mls/hr IVPB Q12H [facility] Stop: 07/17/17 17:01 Last Admin: 07/15/17 16:56 Dose: 133 mls/hr Dextrose/Sodium Chloride (Dextrose 5%/0.45% Ns 1000 Ml) 1,000 mls @ 100 mls/hr IV .Q10H [facility] Last Admin: 07/15/17 13:30 Dose: Not Given Ondansetron HCl (Zofran Inj) 4 mg IVP Q8 [facility] Last Admin: 07/15/17 14:00 Dose: Not Given Pantoprazole Sodium (Protonix Ec Tab) 40 mg PO BID [facility] Last Admin: 07/15/17 16:59 Dose: 40 mg - Labs Labs: 07/12/17 13:39 07/12/17 13:39 PT 12.8 SECONDS (9.7-12.2) H 07/07/17 08:13 INR 1.1 07/07/17 08:13 APTT 29 SECONDS (21-34) 07/07/17 08:13 Assessment and Plan (1) Abdominal pain Status: Acute (2) Diarrhea Status: Acute (3) Vomiting Status: Acute (4) Wound of gluteal cleft Status: Acute (5) Abscess Status: Acute (6) Chest pain Status: Acute (7) Chest pain Status: Acute (8) Constipation Status: Acute (9) DVT (deep venous thrombosis) Status: Acute (10) Diarrhea Status: Acute (11) Encounter for wound care Status: Acute (12) Fever Status: Acute (13) Foreign body Status: Acute (14) Hematemesis with nausea Status: Acute (15) Intractable abdominal pain Status: Acute (16) Intractable pain Status: Acute (17) Prophylactic measure Status: Acute (18) Pulmonary embolism Status: Acute (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
--- NOTE | 2017-07-15 20:11 | OP ---
PROCEDURE DATE: 07/15/2017 PREOPERATIVE DIAGNOSES: 1. Gram-negative bacteremia. 2. Possible infected Port-A-Cath. POSTOPERATIVE DIAGNOSES: 1. Gram-negative bacteremia. 2. Possible infected Port-A-Cath. PROCEDURE: Port-A-Cath removal. SURGEON: Temo Taylor MD. FUNDING COORDINATOR: Kelvin Silveira, PGY-3, resident. TYPE OF ANESTHESIA: Local anesthesia plus sedation. ESTIMATED BLOOD LOSS: Around 5 mL. DRAIN: None. PATHOLOGY: Port-A-Cath with catheter was sent for the pathology. COMPLICATIONS: None. INTRAOPERATIVE FINDINGS: Patient had normal looking Port-A-Cath without any capsule due to the recent placement. DESCRIPTION OF PROCEDURE: On intraoperative step, there is a 22-year-old male who was diagnosed with Gram-negative bacteremia and the Surgery was consulted for possible removal of the Port-A-Cath and patient was consulted, brought to the OR and placed supine on the operating table. After induction of the anesthesia, the left chest was prepped and draped in usual sterile fashion and the incision was made on previous Port-A-Cath incision. Skin and subcutaneous tissue divided, the Port-A-Cath was identified and catheter was removed. The entry side of the catheter was sutured with a [id number] 2-0 Vicryl and wound was irrigated. Wound was closed in 2 layers, subcutaneous with a 2-0 Vicryl, skin with a 4-0 Monocryl, and dry sterile dressing was applied. Patient tolerated the procedure well. Count of the instrument and gauze was correct. There was no apparent complication. Tmeo Taylor MD [facility]
[2017-07-16] MEDS: Dextrose 5%/0.45% NS 1,000 ML IV SCH ×3 (00:46→21:16)
[2017-07-16] MEDS: DiphenhydrAMINE 50 mg/ml Inj IVP PRN ×8 (02:00→23:10)
[2017-07-16] MEDS: Vancomycin 1 gm/NS 200 ml 1 GM/200 ML BAG IVPB SCH ×2 (04:00→17:07)
--- NOTE | 2017-07-16 08:30 | CP.PCM.PN ---
<Li Magallanes - Last Filed: 07/16/17 08:27> Subjective - Date & Time of Evaluation Date of Evaluation: 07/16/17 Time of Evaluation: 07:00 - Subjective Subjective: GENERAL SURGERY PROGRESS NOTE FOR DR. TAYLOR Patient seen and examined at bedside. There were no acute events overnight per nurse. He denies nausea or vomiting. He reports pain at the surgery site and is requesting his Dilaudid Q3. He didn't get the PICC yesterday because he was in the OR when the PICC nurse came to do it. Patient has 1 peripheral line for Abx. Objective - Vital Signs/Intake and Output Vital Signs (last 24 hours): Temp Pulse Resp BP Pulse Ox 97.7 F 104 H 20 109/72 95 07/15/17 23:10 07/15/17 23:10 07/15/17 23:10 07/15/17 23:10 07/15/17 23:10 Intake and Output: 07/16/17 07/16/17 06:59 18:59 Intake Total 600 Balance 600 - Medications Medications: Current Medications Diphenhydramine HCl (Benadryl) 25 mg IVP Q3 PRN PRN Reason: Itching Last Admin: 07/16/17 08:04 Dose: 25 mg Hydromorphone HCl (Dilaudid) 2 mg IVP Q3H PRN PRN Reason: Pain, severe (8-10) Last Admin: 07/16/17 08:04 Dose: 2 mg Meropenem 1 gm/ Sodium (Chloride) 50 mls @ 100 mls/hr IVPB Q8 [facility] Last Admin: 07/16/17 05:00 Dose: 100 mls/hr Vancomycin/Sodium Chloride (Vancomycin 1 Gm/Ns 200 Ml) 1 gm in 200 mls @ 133 mls/hr IVPB Q12H [facility] Stop: 07/17/17 17:01 Last Admin: 07/16/17 04:00 Dose: 133 mls/hr Dextrose/Sodium Chloride (Dextrose 5%/0.45% Ns 1000 Ml) 1,000 mls @ 100 mls/hr IV .Q10H [facility] Last Admin: 07/16/17 00:46 Dose: Not Given Ondansetron HCl (Zofran Inj) 4 mg IVP Q8 [facility] Last Admin: 07/16/17 05:32 Dose: 4 mg Pantoprazole Sodium (Protonix Ec Tab) 40 mg PO BID [facility] Last Admin: 07/15/17 16:59 Dose: 40 mg - Labs Labs: 07/12/17 13:39 07/12/17 13:39 PT 12.8 SECONDS (9.7-12.2) H 07/07/17 08:13 INR 1.1 07/07/17 08:13 APTT 29 SECONDS (21-34) 07/07/17 08:13 - Constitutional Appears: Non-toxic, No Acute Distress - Respiratory Exam Respiratory Exam: NORMAL BREATHING PATTERN. absent: Respiratory Distress - Cardiovascular Exam Cardiovascular Exam: Tachycardia (mild), +S1, +S2 - GI/Abdominal Exam GI & Abdominal Exam: Soft. absent: Distended, Tenderness - Skin Additional comments: Left chest former portacath site: dressing clean/dry/intact Assessment and Plan - Assessment and Plan (Free Text) Assessment: 22yo M with Crohn's disease s/p numerous I&Ds and colostomy now s/p removal of left portacath POD#1 - Afebrile, VSS - Awaiting AM labs - Will FU portacath cx - Continue Abx per ID - Needs PICC - Discussed plan with Dr. Claudia Magallanes PGY-3 <Temo Taylor - Last Filed: 07/17/17 13:23> Objective - Vital Signs/Intake and Output Vital Signs (last 24 hours): Temp Pulse Resp BP Pulse Ox 98.2 F 82 20 97/63 L 100 07/17/17 08:21 07/17/17 08:21 07/17/17 08:21 07/17/17 08:21 07/17/17 08:21 Intake and Output: 07/17/17 07/17/17 06:59 18:59 Intake Total 2560 Output Total 800 Balance 1760 - Medications Medications: Current Medications Diphenhydramine HCl (Benadryl) 25 mg IVP Q3 PRN PRN Reason: Itching Last Admin: 07/17/17 11:42 Dose: 25 mg Hydromorphone HCl (Dilaudid) 2 mg IVP Q3H PRN PRN Reason: Pain, severe (8-10) Last Admin: 07/17/17 11:42 Dose: 2 mg Vancomycin/Sodium Chloride (Vancomycin 1 Gm/Ns 200 Ml) 1 gm in 200 mls @ 133 mls/hr IVPB Q12H [facility] Stop: 07/17/17 17:01 Last Admin: 07/17/17 04:30 Dose: 133 mls/hr Meropenem 1 gm/ Sodium (Chloride) 100 mls @ 100 mls/hr IVPB Q8H [facility] Last Admin: 07/17/17 06:00 Dose: 100 mls/hr Ondansetron HCl (Zofran Inj) 4 mg IVP Q8 [facility] Last Admin: 07/17/17 05:25 Dose: 4 mg Pantoprazole Sodium (Protonix Ec Tab) 40 mg PO BID [facility] Last Admin: 07/17/17 09:09 Dose: 40 mg - Labs Labs: 07/16/17 08:29 07/16/17 08:29 PT 12.8 SECONDS (9.7-12.2) H 07/07/17 08:13 INR 1.1 07/07/17 08:13 APTT 29 SECONDS (21-34) 07/07/17 08:13 Attending/Attestation - Attestation I have personally seen and examined this patient.: Yes I have fully participated in the care of the patient.: Yes I have reviewed all pertinent clinical information, including history, physical exam and plan: Yes Notes (Text): Pt is s/p armand cath removal C/w IV antibiotics Plan d.w pt in detail.
[2017-07-16 08:38] LABS: BASO # 0.1 K/uL (0.0-0.2); EOS # 0.3 K/uL (0.0-0.7); EOS % 3.7 % (0.0-4.0); HEMATOCRIT 38.8 % (35.0-51.0); LYMPH # 3.6 K/uL (1.0-4.3); MEAN CELL VOLUME 72.6 fL (80.0-94.0); MEAN CORPUSCULAR HEMOGLOBIN 23.1 pg (27.0-31.0); MEAN CORPUSCULAR HGB CONC 31.7 g/dL (33.0-37.0); MEAN PLATELET VOLUME 8.3 fL (7.2-11.7); MONO # 0.4 K/uL (0.0-0.8); NRBC % 0.3 % (0.0-2.0); RED CELL DISTRIBUTION WIDTH 20.1 % (11.5-14.5); WHITE BLOOD COUNT 8.4 K/uL (4.8-10.8)
[2017-07-16 09:06] LABS: BLOOD UREA NITROGEN 8 mg/dL (9-20); CALCIUM 8.7 mg/dl (8.6-10.4); CARBON DIOXIDE 28 mmol/L (22-30); CHLORIDE 96 mmol/L (98-107); GFR AFRICAN-AMERICAN > 60; GLUCOSE,RANDOM 90 mg/dL (75-110); POTASSIUM 4.1 mmol/L (3.6-5.2); SODIUM 135 mmol/L (132-148)
[2017-07-16] MEDS: Pantoprazole 40 mg EC Tab PO SCH ×2 (09:45→17:06)
--- NOTE | 2017-07-16 16:52 | CP.PCM.PN ---
Subjective - Date & Time of Evaluation Date of Evaluation: 07/16/17 Objective - Vital Signs/Intake and Output Vital Signs (last 24 hours): Temp Pulse Resp BP Pulse Ox 98.2 F 111 H 20 115/79 98 07/16/17 15:00 07/16/17 15:00 07/16/17 15:00 07/16/17 15:00 07/16/17 15:00 Intake and Output: 07/16/17 07/16/17 06:59 18:59 Intake Total 600 1050 Output Total 1200 Balance 600 -150 - Medications Medications: Current Medications Diphenhydramine HCl (Benadryl) 25 mg IVP Q3 PRN PRN Reason: Itching Last Admin: 07/16/17 14:11 Dose: 25 mg Hydromorphone HCl (Dilaudid) 2 mg IVP Q3H PRN PRN Reason: Pain, severe (8-10) Last Admin: 07/16/17 14:10 Dose: 2 mg Vancomycin/Sodium Chloride (Vancomycin 1 Gm/Ns 200 Ml) 1 gm in 200 mls @ 133 mls/hr IVPB Q12H [facility] Stop: 07/17/17 17:01 Last Admin: 07/16/17 04:00 Dose: 133 mls/hr Dextrose/Sodium Chloride (Dextrose 5%/0.45% Ns 1000 Ml) 1,000 mls @ 100 mls/hr IV .Q10H [facility] Last Admin: 07/16/17 14:12 Dose: 100 mls/hr Meropenem 1 gm/ Sodium (Chloride) 100 mls @ 100 mls/hr IVPB Q8H [facility] Ondansetron HCl (Zofran Inj) 4 mg IVP Q8 [facility] Last Admin: 07/16/17 14:10 Dose: 4 mg Pantoprazole Sodium (Protonix Ec Tab) 40 mg PO BID [facility] Last Admin: 07/16/17 09:45 Dose: 40 mg - Labs Labs: 07/16/17 08:29 07/16/17 08:29 PT 12.8 SECONDS (9.7-12.2) H 07/07/17 08:13 INR 1.1 07/07/17 08:13 APTT 29 SECONDS (21-34) 07/07/17 08:13 Assessment and Plan (1) Abdominal pain Status: Acute (2) Diarrhea Status: Acute (3) Vomiting Status: Acute (4) Wound of gluteal cleft Status: Acute (5) Abscess Status: Acute (6) Chest pain Status: Acute (7) Chest pain Status: Acute (8) Constipation Status: Acute (9) DVT (deep venous thrombosis) Status: Acute (10) Diarrhea Status: Acute (11) Encounter for wound care Status: Acute (12) Fever Status: Acute (13) Foreign body Status: Acute (14) Hematemesis with nausea Status: Acute (15) Intractable abdominal pain Status: Acute (16) Intractable pain Status: Acute (17) Prophylactic measure Status: Acute (18) Pulmonary embolism Status: Acute (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
[2017-07-16] MEDS: Meropenem 1 GM in Sodium Chloride 0.9% 100 ML IVPB SCH (21:18)
[2017-07-17] MEDS: DiphenhydrAMINE 50 mg/ml Inj IVP PRN ×7 (02:25→21:12)
[2017-07-17] MEDS: Vancomycin 1 gm/NS 200 ml 1 GM/200 ML BAG IVPB SCH ×2 (04:30→17:46)
[2017-07-17] MEDS: Meropenem 1 GM in Sodium Chloride 0.9% 100 ML IVPB SCH ×3 (06:00→21:11)
--- NOTE | 2017-07-17 08:30 | CP.PCM.PN ---
<Manuel Seras - Last Filed: 07/17/17 15:35> Subjective - Date & Time of Evaluation Date of Evaluation: 07/17/17 Time of Evaluation: 07:00 - Subjective Subjective: General Surgery- Dr. Taylor Patient seen and examined at bedside this AM. No acute events overnight. patient has 24G IV in foot since patient has poor access. Denies Fevers, chills , chest pain, shortness of breath, nausea, vomiting, diarrhea. Objective - Vital Signs/Intake and Output Vital Signs (last 24 hours): Temp Pulse Resp BP Pulse Ox 98.2 F 82 20 97/63 L 100 07/17/17 08:21 07/17/17 08:21 07/17/17 08:21 07/17/17 08:21 07/17/17 08:21 Intake and Output: 07/17/17 07/17/17 06:59 18:59 Intake Total 2560 Output Total 800 Balance 1760 - Medications Medications: Current Medications Diphenhydramine HCl (Benadryl) 25 mg IVP Q3 PRN PRN Reason: Itching Last Admin: 07/17/17 05:25 Dose: 25 mg Hydromorphone HCl (Dilaudid) 2 mg IVP Q3H PRN PRN Reason: Pain, severe (8-10) Last Admin: 07/17/17 05:25 Dose: 2 mg Vancomycin/Sodium Chloride (Vancomycin 1 Gm/Ns 200 Ml) 1 gm in 200 mls @ 133 mls/hr IVPB Q12H [facility] Stop: 07/17/17 17:01 Last Admin: 07/17/17 04:30 Dose: 133 mls/hr Meropenem 1 gm/ Sodium (Chloride) 100 mls @ 100 mls/hr IVPB Q8H [facility] Last Admin: 07/17/17 06:00 Dose: 100 mls/hr Ondansetron HCl (Zofran Inj) 4 mg IVP Q8 [facility] Last Admin: 07/17/17 05:25 Dose: 4 mg Pantoprazole Sodium (Protonix Ec Tab) 40 mg PO BID [facility] Last Admin: 07/16/17 17:06 Dose: 40 mg - Labs Labs: 07/16/17 08:29 07/16/17 08:29 PT 12.8 SECONDS (9.7-12.2) H 07/07/17 08:13 INR 1.1 07/07/17 08:13 APTT 29 SECONDS (21-34) 07/07/17 08:13 - Constitutional Appears: Non-toxic, No Acute Distress - Head Exam Head Exam: ATRAUMATIC - Eye Exam Eye Exam: EOMI. absent: Scleral icterus - ENT Exam ENT Exam: Mucous Membranes Moist - Respiratory Exam Respiratory Exam: NORMAL BREATHING PATTERN. absent: Accessory Muscle Use, Respiratory Distress - Cardiovascular Exam Cardiovascular Exam: +S1, +S2. absent: Bradycardia, Tachycardia - GI/Abdominal Exam GI & Abdominal Exam: Soft. absent: Rigid, Tenderness, Rebound Additional comments: Ostomy pink and patent with good output - Extremities Exam Extremities Exam: Normal Inspection. absent: Calf Tenderness - Neurological Exam Neurological Exam: Alert, Awake, Oriented x3 - Skin Skin Exam: Intact, Normal Color, Warm Assessment and Plan - Assessment and Plan (Free Text) Assessment: 22M Crohn's disease s/p numerous I&Ds and colostomy now s/p removal of left portacath POD#2 Plan: - plan for PICC line today - no further surgical intervention at this time - please reconsult PRN; thank you for allowing to be part of the care team for this patient - Discussed w/ Dr. Taylor surgical attending Manuel Sears PGY1 <Temo Taylor - Last Filed: 07/24/17 22:01> Objective - Vital Signs/Intake and Output Vital Signs (last 24 hours): Temp Pulse Resp BP Pulse Ox 98.2 F 88 20 110/74 97 07/23/17 15:20 07/23/17 15:20 07/23/17 15:20 07/23/17 15:20 07/23/17 07:44 - Labs Labs: 07/23/17 13:48 07/23/17 13:48 PT 12.8 SECONDS (9.7-12.2) H 07/07/17 08:13 INR 1.1 07/07/17 08:13 APTT 29 SECONDS (21-34) 07/07/17 08:13 Attending/Attestation - Attestation I have personally seen and examined this patient.: Yes I have fully participated in the care of the patient.: Yes I have reviewed all pertinent clinical information, including history, physical exam and plan: Yes Notes (Text): Pt was seen and examined at bedside Agree with above note and assessment
[2017-07-17] MEDS ORDERED: HYDROmorphone 1 mg/ml ISec IVP PRN (08:45)
[2017-07-17] MEDS: Pantoprazole 40 mg EC Tab PO SCH ×2 (09:09→17:43)
[2017-07-17] MEDS ORDERED: Iodixanol 320 MG/ML 100 ML BOTTLE IV ONE (10:11)
--- NOTE | 2017-07-17 10:24 | PCM.SURG1 ---
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 Post-Operative Diagnosis: Crohn's disease, poor venous access Operation Performed: Midline picc placed, 20 cm. Tip is in axillary vein. Specimen/Specimens Removed: none Estimated Blood Loss: EBL {In ML}: 2 Blood Products Given: N/A Drains Used: No Drains Post-Op Condition: Fair Date of Surgery/Procedure: 07/17/17 Time of Surgery/Procedure: 10:20
--- NOTE | 2017-07-17 11:24 | SPECPROC ---
PROCEDURE: Date of procedure: 07/17/2017 Procedure: 1. Placement of a right arm midline PICC with ultrasound and fluoroscopic guidance, CPT 23303 2. PICC tip confirmation with spot radiograph and is in the superior vena cava Medications: 3cc 1 percent lidocaine Total Fluoro time: 54 seconds Radiation: 5.8 MGy EBL: 3 cc HISTORY: Infection requiring long-term IV antibiotics TECHNIQUE: Following informed consent and procedure time-out, the patient was placed supine on the interventional table and the right arm prepped and draped in the usual sterile fashion. Ultrasound showed a patent and compressible right basilic vein. After the skin was anesthetized with lidocaine, the basilic vein was accessed with micro micropuncture technique using ultrasound guidance. An image documenting ultrasound guidance for vascular access was permanently saved. There was difficulty advancing guidewire centrally. The brachial vein was then accessed under sterile technique with ultrasound guidance. Again there was difficulty advancing perez centrally. The basilic vein was accessed for 2nd time and a guide was advanced into the. The right upper extremity and central venogram was performed. Findings: Venogram showed occlusion of the axillary vein and subclavian vein with multiple collateral veins. The length of the single-lumen 4 [place] PICC was trimmed to 20 centimeters and advanced through a peel-away sheath. The PICC was position with tip of PICC confirm a spot radiograph the axillary vein. The PICC was secured to the patient's skin. The PICC was flushed. A biopatch and sterile dressing was applied. IMPRESSION: Placement of a single-lumen 4 [place] midline catheterto 20 centimeters via right basilic vein. The tip of the midline is confirmed with spot radiograph and is in the axillary vein. 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
--- NOTE | 2017-07-17 16:36 | CP.PCM.PN ---
Subjective - Date & Time of Evaluation Date of Evaluation: 07/17/17 Time of Evaluation: 07:00 - Subjective Subjective: clinically same Objective - Vital Signs/Intake and Output Vital Signs (last 24 hours): Temp Pulse Resp BP Pulse Ox 98.2 F 82 20 97/63 L 100 07/17/17 08:21 07/17/17 08:21 07/17/17 08:21 07/17/17 08:21 07/17/17 08:21 Intake and Output: 07/17/17 07/17/17 06:59 18:59 Intake Total 2560 1280 Output Total 800 1200 Balance 1760 80 - Medications Medications: Current Medications Diphenhydramine HCl (Benadryl) 25 mg IVP Q3 PRN PRN Reason: Itching Last Admin: 07/17/17 14:42 Dose: 25 mg Hydromorphone HCl (Dilaudid) 2 mg IVP Q3H PRN PRN Reason: Pain, severe (8-10) Last Admin: 07/17/17 14:42 Dose: 2 mg Vancomycin/Sodium Chloride (Vancomycin 1 Gm/Ns 200 Ml) 1 gm in 200 mls @ 133 mls/hr IVPB Q12H [facility] Stop: 07/17/17 17:01 Last Admin: 07/17/17 04:30 Dose: 133 mls/hr Meropenem 1 gm/ Sodium (Chloride) 100 mls @ 100 mls/hr IVPB Q8H [facility] Last Admin: 07/17/17 13:53 Dose: 100 mls/hr Ondansetron HCl (Zofran Inj) 4 mg IVP Q8 [facility] Last Admin: 07/17/17 13:53 Dose: 4 mg Pantoprazole Sodium (Protonix Ec Tab) 40 mg PO BID [facility] Last Admin: 07/17/17 09:09 Dose: 40 mg - Labs Labs: 07/16/17 08:29 07/16/17 08:29 PT 12.8 SECONDS (9.7-12.2) H 07/07/17 08:13 INR 1.1 07/07/17 08:13 APTT 29 SECONDS (21-34) 07/07/17 08:13 - Constitutional Appears: Well - Head Exam Head Exam: ATRAUMATIC, NORMAL INSPECTION, NORMOCEPHALIC - Eye Exam Eye Exam: EOMI, Normal appearance, PERRL Pupil Exam: NORMAL ACCOMODATION, PERRL - ENT Exam ENT Exam: Mucous Membranes Moist, Normal Exam - Neck Exam Neck Exam: Full ROM, Normal Inspection. absent: Lymphadenopathy - Respiratory Exam Respiratory Exam: Decreased Breath Sounds - Cardiovascular Exam Cardiovascular Exam: REGULAR RHYTHM, +S1, +S2 - GI/Abdominal Exam GI & Abdominal Exam: Soft, Diminished Bowel Sounds - Rectal Exam Rectal Exam: Deferred Assessment and Plan (1) Abdominal pain Status: Acute (2) Diarrhea Status: Acute (3) Vomiting Status: Acute (4) Wound of gluteal cleft Status: Acute (5) Abscess Status: Acute (6) Chest pain Status: Acute (7) Chest pain Status: Acute (8) Constipation Status: Acute (9) DVT (deep venous thrombosis) Status: Acute (10) Diarrhea Status: Acute (11) Encounter for wound care Status: Acute (12) Fever Status: Acute (13) Foreign body Status: Acute (14) Hematemesis with nausea Status: Acute (15) Intractable abdominal pain Status: Acute (16) Intractable pain Status: Acute (17) Prophylactic measure Status: Acute (18) Pulmonary embolism Status: Acute (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
--- NOTE | 2017-07-17 18:45 | CP.PCM.PN ---
Subjective - Date & Time of Evaluation Date of Evaluation: 07/17/17 Time of Evaluation: 03:00 - Subjective Subjective: dictated Objective - Vital Signs/Intake and Output Vital Signs (last 24 hours): Temp Pulse Resp BP Pulse Ox 98.6 F 103 H 20 116/77 98 07/17/17 15:00 07/17/17 15:00 07/17/17 15:00 07/17/17 15:00 07/17/17 15:00 Intake and Output: 07/17/17 07/17/17 06:59 18:59 Intake Total 2560 1280 Output Total 800 1200 Balance 1760 80 - Medications Medications: Current Medications Diphenhydramine HCl (Benadryl) 25 mg IVP Q3 PRN PRN Reason: Itching Last Admin: 07/17/17 17:43 Dose: 25 mg Hydromorphone HCl (Dilaudid) 2 mg IVP Q3H PRN PRN Reason: Pain, severe (8-10) Last Admin: 07/17/17 17:44 Dose: 2 mg Meropenem 1 gm/ Sodium (Chloride) 100 mls @ 100 mls/hr IVPB Q8H [facility] Last Admin: 07/17/17 13:53 Dose: 100 mls/hr Ondansetron HCl (Zofran Inj) 4 mg IVP Q8 [facility] Last Admin: 07/17/17 13:53 Dose: 4 mg Pantoprazole Sodium (Protonix Ec Tab) 40 mg PO BID [facility] Last Admin: 07/17/17 17:43 Dose: 40 mg - Labs Labs: 07/16/17 08:29 07/16/17 08:29 PT 12.8 SECONDS (9.7-12.2) H 07/07/17 08:13 INR 1.1 07/07/17 08:13 APTT 29 SECONDS (21-34) 07/07/17 08:13
--- NOTE | 2017-07-17 19:55 | PN ---
SUBJECTIVE: The patient got a new PICC line today as Port-A-Cath was removed, and he has no IV access. He is on IV antibiotics. PHYSICAL EXAMINATION: VITAL SIGNS: Stable. T-max is 98.6, heart rate of 103, blood pressure 115/77, respirations 20. HEENT: Head is atraumatic, normocephalic. Pupils are reacting to light. NECK: Supple. He does complain of headache but it is better. HEART: S1 and S2 is regular. ABDOMEN: Soft. Nontender. No voiding, no rigidity present. He has a colostomy. He has ulcerations between the buttocks. EXTREMITIES: No edema. They tried to put also for IV on the right as left and to put the PICC line but it seems the PICC line is in the left side, and he is getting antibiotics. He will need antibiotics to continue. Santosh Daniel MD
[2017-07-18] MEDS: DiphenhydrAMINE 50 mg/ml Inj IVP PRN ×8 (00:15→22:47)
[2017-07-18] MEDS: Meropenem 1 GM in Sodium Chloride 0.9% 100 ML IVPB SCH ×3 (05:59→22:50)
[2017-07-18] MEDS: HYDROmorphone 1 mg/ml ISec IVP PRN ×2 (07:43→10:47)
[2017-07-18] MEDS: Pantoprazole 40 mg EC Tab PO SCH ×2 (10:46→17:02)
--- NOTE | 2017-07-18 14:15 | CP.PCM.PN ---
Subjective - Date & Time of Evaluation Date of Evaluation: 07/18/17 Time of Evaluation: 07:00 - Subjective Subjective: clinically same Objective - Vital Signs/Intake and Output Vital Signs (last 24 hours): Temp Pulse Resp BP Pulse Ox 98.4 F 103 H 20 98/67 L 98 07/18/17 08:41 07/18/17 08:41 07/18/17 08:41 07/18/17 08:41 07/18/17 08:41 Intake and Output: 07/18/17 07/18/17 06:59 18:59 Intake Total 800 Output Total 800 Balance 0 - Medications Medications: Current Medications Diphenhydramine HCl (Benadryl) 25 mg IVP Q3 PRN PRN Reason: Itching Last Admin: 07/18/17 13:47 Dose: 25 mg Hydromorphone HCl (Dilaudid) 2 mg IVP Q3H PRN PRN Reason: Pain, severe (8-10) Last Admin: 07/18/17 13:51 Dose: 2 mg Meropenem 1 gm/ Sodium (Chloride) 100 mls @ 100 mls/hr IVPB Q8H [facility] Last Admin: 07/18/17 13:47 Dose: 100 mls/hr Ondansetron HCl (Zofran Inj) 4 mg IVP Q8 [facility] Last Admin: 07/18/17 13:47 Dose: 4 mg Pantoprazole Sodium (Protonix Ec Tab) 40 mg PO BID [facility] Last Admin: 07/18/17 10:46 Dose: 40 mg - Labs Labs: 07/16/17 08:29 07/16/17 08:29 PT 12.8 SECONDS (9.7-12.2) H 07/07/17 08:13 INR 1.1 07/07/17 08:13 APTT 29 SECONDS (21-34) 07/07/17 08:13 - Constitutional Appears: Well - Head Exam Head Exam: ATRAUMATIC, NORMAL INSPECTION, NORMOCEPHALIC - Eye Exam Eye Exam: EOMI, Normal appearance, PERRL Pupil Exam: NORMAL ACCOMODATION, PERRL - ENT Exam ENT Exam: Mucous Membranes Moist, Normal Exam - Neck Exam Neck Exam: Full ROM, Normal Inspection. absent: Lymphadenopathy - Respiratory Exam Respiratory Exam: Decreased Breath Sounds - Cardiovascular Exam Cardiovascular Exam: REGULAR RHYTHM, +S1, +S2 - GI/Abdominal Exam GI & Abdominal Exam: Soft, Diminished Bowel Sounds - Rectal Exam Rectal Exam: Deferred Assessment and Plan (1) Abdominal pain Status: Acute (2) Diarrhea Status: Acute (3) Vomiting Status: Acute (4) Wound of gluteal cleft Status: Acute (5) Abscess Status: Acute (6) Chest pain Status: Acute (7) Chest pain Status: Acute (8) Constipation Status: Acute (9) DVT (deep venous thrombosis) Status: Acute (10) Diarrhea Status: Acute (11) Encounter for wound care Status: Acute (12) Fever Status: Acute (13) Foreign body Status: Acute (14) Hematemesis with nausea Status: Acute (15) Intractable abdominal pain Status: Acute (16) Intractable pain Status: Acute (17) Prophylactic measure Status: Acute (18) Pulmonary embolism Status: Acute (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
[2017-07-18] MEDS: Sodium Chloride 0.9% 1,000 ML IV SCH (16:43)
--- NOTE | 2017-07-18 20:10 | CP.PCM.PN ---
Subjective - Date & Time of Evaluation Date of Evaluation: 07/18/17 Time of Evaluation: 03:00 - Subjective Subjective: dictated Objective - Vital Signs/Intake and Output Vital Signs (last 24 hours): Temp Pulse Resp BP Pulse Ox 98.4 F 111 H 20 109/71 97 07/18/17 15:00 07/18/17 15:00 07/18/17 15:00 07/18/17 15:00 07/18/17 15:00 Intake and Output: 07/18/17 07/19/17 18:59 06:59 Intake Total 400 Output Total 600 Balance -200 - Medications Medications: Current Medications Diphenhydramine HCl (Benadryl) 25 mg IVP Q3 PRN PRN Reason: Itching Last Admin: 07/18/17 19:52 Dose: 25 mg Hydromorphone HCl (Dilaudid) 2 mg IVP Q3H PRN PRN Reason: Pain, severe (8-10) Last Admin: 07/18/17 19:56 Dose: 2 mg Meropenem 1 gm/ Sodium (Chloride) 100 mls @ 100 mls/hr IVPB Q8H [facility] Last Admin: 07/18/17 13:47 Dose: 100 mls/hr Sodium Chloride (Sodium Chloride 0.9%) 1,000 mls @ 100 mls/hr IV .Q10H [facility] Last Admin: 07/18/17 16:43 Dose: 100 mls/hr Ondansetron HCl (Zofran Inj) 4 mg IVP Q8 [facility] Last Admin: 07/18/17 13:47 Dose: 4 mg Pantoprazole Sodium (Protonix Ec Tab) 40 mg PO BID [facility] Last Admin: 07/18/17 17:02 Dose: 40 mg - Labs Labs: 07/16/17 08:29 07/16/17 08:29 PT 12.8 SECONDS (9.7-12.2) H 07/07/17 08:13 INR 1.1 07/07/17 08:13 APTT 29 SECONDS (21-34) 07/07/17 08:13
[2017-07-18] MEDS: Vancomycin 1 gm/NS 200 ml 1 GM/200 ML BAG IVPB SCH (21:01)
--- NOTE | 2017-07-18 22:25 | PN ---
SUBJECTIVE: The patient was complaining of right axillary pain and may be developing an abscess there again, it is difficult question. His blood pressure was low. He has not been taking showers. He has now a PICC line. It makes it more difficult to get things done. PHYSICAL EXAMINATION: VITAL SIGNS: T-max is 98.4, heart rate of 111, blood pressure 109/71, respirations are 20. He kept thing that he wanted to squeeze it, I hope he does not do that well. His blood pressure was 98/67 when I saw so, we have added saline at this time and giving IV fluids. His vitals are otherwise low. HEAD: Atraumatic. NECK: Supple. Right axilla has small abscess there at this time, he is on antibiotics. I want to make sure he is getting vancomycin also. I will place him back on that. LUNGS: Clear. HEART: S1 and S2 are regular. RECTAL: He continues to have abscess in the perirectal area, he says one is really big. EXTREMITIES: Have no edema. Colostomy is present. LABORATORY DATA: There are no new labs today. We will repeat them and reorder vancomycin. We will follow. Santosh Daniel MD
[2017-07-19] MEDS: DiphenhydrAMINE 50 mg/ml Inj IVP PRN ×8 (01:45→23:20)
[2017-07-19] MEDS: Sodium Chloride 0.9% 1,000 ML IV SCH ×4 (02:30→22:09)
[2017-07-19] MEDS: Meropenem 1 GM in Sodium Chloride 0.9% 100 ML IVPB SCH ×3 (05:00→22:02)
[2017-07-19] MEDS: Vancomycin 1 gm/NS 200 ml 1 GM/200 ML BAG IVPB SCH ×2 (09:48→20:28)
[2017-07-19] MEDS: Pantoprazole 40 mg EC Tab PO SCH ×2 (11:00→18:44)
--- NOTE | 2017-07-19 16:45 | CP.PCM.PN ---
Subjective - Date & Time of Evaluation Date of Evaluation: 07/19/17 Time of Evaluation: 07:00 - Subjective Subjective: clinically same Objective - Vital Signs/Intake and Output Vital Signs (last 24 hours): Temp Pulse Resp BP Pulse Ox 98.7 F 96 H 20 106/70 100 07/19/17 08:00 07/19/17 08:00 07/19/17 08:00 07/19/17 08:00 07/19/17 08:00 Intake and Output: 07/19/17 07/19/17 06:59 18:59 Intake Total 2510 1500 Output Total 500 400 Balance 2009 1099 - Medications Medications: Current Medications Diphenhydramine HCl (Benadryl) 25 mg IVP Q3 PRN PRN Reason: Itching Last Admin: 07/19/17 14:18 Dose: 25 mg Hydromorphone HCl (Dilaudid) 2 mg IVP Q3H PRN PRN Reason: Pain, severe (8-10) Last Admin: 07/19/17 14:18 Dose: 2 mg Meropenem 1 gm/ Sodium (Chloride) 100 mls @ 100 mls/hr IVPB Q8H [facility] Last Admin: 07/19/17 13:49 Dose: 100 mls/hr Sodium Chloride (Sodium Chloride 0.9%) 1,000 mls @ 100 mls/hr IV .Q10H [facility] Last Admin: 07/19/17 12:43 Dose: Not Given Vancomycin/Sodium Chloride (Vancomycin 1 Gm/Ns 200 Ml) 1 gm in 200 mls @ 133.333 mls/hr IVPB Q12H [facility] Stop: 07/23/17 21:01 Last Admin: 07/19/17 09:48 Dose: 133.333 mls/hr Ondansetron HCl (Zofran Inj) 4 mg IVP Q8 [facility] Last Admin: 07/19/17 13:49 Dose: 4 mg Pantoprazole Sodium (Protonix Ec Tab) 40 mg PO BID [facility] Last Admin: 07/19/17 11:00 Dose: 40 mg - Labs Labs: 07/16/17 08:29 07/16/17 08:29 PT 12.8 SECONDS (9.7-12.2) H 07/07/17 08:13 INR 1.1 07/07/17 08:13 APTT 29 SECONDS (21-34) 07/07/17 08:13 Assessment and Plan (1) Abdominal pain Status: Acute (2) Diarrhea Status: Acute (3) Vomiting Status: Acute (4) Wound of gluteal cleft Status: Acute (5) Abscess Status: Acute (6) Chest pain Status: Acute (7) Chest pain Status: Acute (8) Constipation Status: Acute (9) DVT (deep venous thrombosis) Status: Acute (10) Diarrhea Status: Acute (11) Encounter for wound care Status: Acute (12) Fever Status: Acute (13) Foreign body Status: Acute (14) Hematemesis with nausea Status: Acute (15) Intractable abdominal pain Status: Acute (16) Intractable pain Status: Acute (17) Prophylactic measure Status: Acute (18) Pulmonary embolism Status: Acute (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
[2017-07-20] MEDS: DiphenhydrAMINE 50 mg/ml Inj IVP PRN ×7 (02:20→22:39)
[2017-07-20] MEDS: Meropenem 1 GM in Sodium Chloride 0.9% 100 ML IVPB SCH ×3 (05:00→22:43)
[2017-07-20] MEDS: Pantoprazole 40 mg EC Tab PO SCH ×2 (09:03→18:58)
[2017-07-20] MEDS: Vancomycin 1 gm/NS 200 ml 1 GM/200 ML BAG IVPB SCH ×2 (09:05→20:43)
[2017-07-20] MEDS: Sodium Chloride 0.9% 1,000 ML IV SCH ×2 (12:21→22:44)
--- NOTE | 2017-07-20 20:04 | CP.PCM.PN ---
Subjective - Date & Time of Evaluation Date of Evaluation: 07/20/17 Time of Evaluation: 07:00 - Subjective Subjective: clinically same Objective - Vital Signs/Intake and Output Vital Signs (last 24 hours): Temp Pulse Resp BP Pulse Ox 98.6 F 106 H 20 101/69 96 07/20/17 15:25 07/20/17 15:25 07/20/17 15:25 07/20/17 15:25 07/20/17 15:25 Intake and Output: 07/20/17 07/21/17 18:59 06:59 Intake Total 1280 Output Total 1800 Balance -520 - Medications Medications: Current Medications Diphenhydramine HCl (Benadryl) 25 mg IVP Q3 PRN PRN Reason: Itching Last Admin: 07/20/17 19:26 Dose: 25 mg Hydromorphone HCl (Dilaudid) 2 mg IVP Q3H PRN PRN Reason: Pain, severe (8-10) Last Admin: 07/20/17 19:27 Dose: 2 mg Meropenem 1 gm/ Sodium (Chloride) 100 mls @ 100 mls/hr IVPB Q8H [facility] Last Admin: 07/20/17 14:09 Dose: 100 mls/hr Sodium Chloride (Sodium Chloride 0.9%) 1,000 mls @ 100 mls/hr IV .Q10H [facility] Last Admin: 07/20/17 12:21 Dose: 100 mls/hr Vancomycin/Sodium Chloride (Vancomycin 1 Gm/Ns 200 Ml) 1 gm in 200 mls @ 133.333 mls/hr IVPB Q12H [facility] Stop: 07/23/17 21:01 Last Admin: 07/20/17 09:05 Dose: 133.333 mls/hr Ondansetron HCl (Zofran Inj) 4 mg IVP Q8 [facility] Last Admin: 07/20/17 14:10 Dose: 4 mg Pantoprazole Sodium (Protonix Ec Tab) 40 mg PO BID [facility] Last Admin: 07/20/17 18:58 Dose: 40 mg - Labs Labs: 07/16/17 08:29 07/16/17 08:29 PT 12.8 SECONDS (9.7-12.2) H 07/07/17 08:13 INR 1.1 07/07/17 08:13 APTT 29 SECONDS (21-34) 07/07/17 08:13 Assessment and Plan (1) Abdominal pain Status: Acute (2) Diarrhea Status: Acute (3) Vomiting Status: Acute (4) Wound of gluteal cleft Status: Acute (5) Abscess Status: Acute (6) Chest pain Status: Acute (7) Chest pain Status: Acute (8) Constipation Status: Acute (9) DVT (deep venous thrombosis) Status: Acute (10) Diarrhea Status: Acute (11) Encounter for wound care Status: Acute (12) Fever Status: Acute (13) Foreign body Status: Acute (14) Hematemesis with nausea Status: Acute (15) Intractable abdominal pain Status: Acute (16) Intractable pain Status: Acute (17) Prophylactic measure Status: Acute (18) Pulmonary embolism Status: Acute (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
--- NOTE | 2017-07-20 21:09 | CP.PCM.PN ---
Subjective - Date & Time of Evaluation Date of Evaluation: 07/20/17 Time of Evaluation: 05:00 - Subjective Subjective: dictated Objective - Vital Signs/Intake and Output Vital Signs (last 24 hours): Temp Pulse Resp BP Pulse Ox 98.6 F 106 H 20 101/69 96 07/20/17 15:25 07/20/17 15:25 07/20/17 15:25 07/20/17 15:25 07/20/17 15:25 Intake and Output: 07/20/17 07/21/17 18:59 06:59 Intake Total 1280 Output Total 1800 Balance -520 - Medications Medications: Current Medications Diphenhydramine HCl (Benadryl) 25 mg IVP Q3 PRN PRN Reason: Itching Last Admin: 07/20/17 19:26 Dose: 25 mg Hydromorphone HCl (Dilaudid) 2 mg IVP Q3H PRN PRN Reason: Pain, severe (8-10) Last Admin: 07/20/17 19:27 Dose: 2 mg Meropenem 1 gm/ Sodium (Chloride) 100 mls @ 100 mls/hr IVPB Q8H [facility] Last Admin: 07/20/17 14:09 Dose: 100 mls/hr Sodium Chloride (Sodium Chloride 0.9%) 1,000 mls @ 100 mls/hr IV .Q10H [facility] Last Admin: 07/20/17 12:21 Dose: 100 mls/hr Vancomycin/Sodium Chloride (Vancomycin 1 Gm/Ns 200 Ml) 1 gm in 200 mls @ 133.333 mls/hr IVPB Q12H [facility] Stop: 07/23/17 21:01 Last Admin: 07/20/17 20:43 Dose: 133.333 mls/hr Ondansetron HCl (Zofran Inj) 4 mg IVP Q8 [facility] Last Admin: 07/20/17 14:10 Dose: 4 mg Pantoprazole Sodium (Protonix Ec Tab) 40 mg PO BID [facility] Last Admin: 07/20/17 18:58 Dose: 40 mg - Labs Labs: 07/16/17 08:29 07/16/17 08:29 PT 12.8 SECONDS (9.7-12.2) H 07/07/17 08:13 INR 1.1 07/07/17 08:13 APTT 29 SECONDS (21-34) 07/07/17 08:13
--- NOTE | 2017-07-21 01:34 | PN ---
INFECTIOUS DISEASE FOLLOWUP DATE: SUBJECTIVE: The patient still complains of pain in the right axilla and he is developing an abscesses and I saw it yesterday. It is difficult to get him to have a shower also, as he has a PICC line in the same site. Left side Port-A-Cath site is healing which was removed and he is on all these medicines, antibiotics that he is getting, but still has developed his new abscess, it appears to be like thickened indurated area and the patient is complaining of pain in right axilla. He is being followed by Dr. Taylor also. At this time, continue the antibiotics, so we will continue antibiotics. PHYSICAL EXAMINATION: GENERAL: However, he remains afebrile. VITAL SIGNS: T-max is 98.6, pulse is 106, blood pressure 101/69, respirations are 20. HEENT: Head is atraumatic, normocephalic. NECK: Supple. LUNGS: Clear. HEART: S1 and S2, tachycardic. ABDOMEN: The colostomy site is working. He does have pelvic abscesses secondary to Crohn's. EXTREMITIES: Have no edema. LABORATORY DATA: Show white count is 8.4, hemoglobin 12.3, hematocrit 38.8, platelet count is 388. His sodium is 135, potassium 4.5, chloride is 96, BUN is 15, creatinine 0.7. ASSESSMENT AND PLAN: is always in bed, I think we will put him back on the Lovenox also and he did complain that he is bleeding, but nobody has seen blood and only first time when he came and he told Dr. Valenzuela that he only had some bleeding when he was admitted. So, we will put him back on deep vein thrombosis prophylaxis and we will follow with Dr. Taylor and Dr. Barrett. He has been on antibiotic, but his procalcitonin remains high, because he does have abscesses in the intergluteal fold and also in the right axilla. So, I want to make sure he is on vancomycin and he is on meropenem at this time. We will follow. I have put back his Lovenox as I have never seen him having active bleeding. We also screened him for tuberculosis and the smear was negative, and chest CT was negative, Gold QuantiFERON was indeterminate. Santosh Daniel MD [facility] # [id number]
[2017-07-21] MEDS: DiphenhydrAMINE 50 mg/ml Inj IVP PRN ×8 (01:47→23:52)
[2017-07-21] MEDS: Sodium Chloride 0.9% 1,000 ML IV SCH ×3 (01:48→14:10)
[2017-07-21] MEDS: Meropenem 1 GM in Sodium Chloride 0.9% 100 ML IVPB SCH ×3 (05:02→21:11)
[2017-07-21 08:06] LABS: BASO # 0.1 K/uL (0.0-0.2); BASO % 0.8 % (0.0-2.0); EOS # 0.4 K/uL (0.0-0.7); EOS % 5.6 % (0.0-4.0); HEMATOCRIT 37.2 % (35.0-51.0); LYMPH # 3.6 K/uL (1.0-4.3); LYMPH % 50.9 % (20.0-40.0); MEAN CELL VOLUME 72.4 fL (80.0-94.0); MEAN CORPUSCULAR HEMOGLOBIN 22.6 pg (27.0-31.0); MEAN CORPUSCULAR HGB CONC 31.2 g/dL (33.0-37.0); MEAN PLATELET VOLUME 8.2 fL (7.2-11.7); MONO # 0.3 K/uL (0.0-0.8); MONO % 4.7 % (0.0-10.0); NRBC % 0.9 % (0.0-2.0); RED CELL DISTRIBUTION WIDTH 20.1 % (11.5-14.5); WHITE BLOOD COUNT 7.1 K/uL (4.8-10.8)
[2017-07-21 08:26] LABS: ALB/GLOB RATIO 1.1 (1.0-2.1); ALKALINE PHOSPHATASE 122 U/L (38-126); ALT/SGPT 39 U/L (21-72); AST/SGOT 30 U/L (17-59); BILIRUBIN,TOTAL 0.7 mg/dL (0.2-1.3); BLOOD UREA NITROGEN 10 mg/dL (9-20); CALCIUM 7.8 mg/dl (8.6-10.4); CARBON DIOXIDE 27 mmol/L (22-30); CHLORIDE 99 mmol/L (98-107); GFR AFRICAN-AMERICAN > 60; GLUCOSE,RANDOM 90 mg/dL (75-110); SODIUM 135 mmol/L (132-148); TOTAL PROTEIN 7.4 g/dL (6.3-8.3)
[2017-07-21] MEDS: Enoxaparin 40 mg Syringe SC SCH (09:27)
[2017-07-21] MEDS: Pantoprazole 40 mg EC Tab PO SCH ×2 (09:40→17:25)
[2017-07-21] MEDS: Vancomycin 1 gm/NS 200 ml 1 GM/200 ML BAG IVPB SCH (10:16)
--- NOTE | 2017-07-21 15:56 | CP.PCM.PN ---
Subjective - Date & Time of Evaluation Date of Evaluation: 07/21/17 Time of Evaluation: 07:00 - Subjective Subjective: clinically same Objective - Vital Signs/Intake and Output Vital Signs (last 24 hours): Temp Pulse Resp BP Pulse Ox 98.1 F 70 20 100/67 97 07/21/17 08:00 07/21/17 08:00 07/21/17 08:00 07/21/17 08:00 07/21/17 08:00 Intake and Output: 07/21/17 07/21/17 06:59 18:59 Intake Total 1600 980 Output Total 3500 Balance -1900 980 - Medications Medications: Current Medications Diphenhydramine HCl (Benadryl) 25 mg IVP Q3 PRN PRN Reason: Itching Last Admin: 07/21/17 14:17 Dose: 25 mg Enoxaparin Sodium (Lovenox) 40 mg SC DAILY [facility] Last Admin: 07/21/17 09:27 Dose: 40 mg Hydromorphone HCl (Dilaudid) 2 mg IVP Q3H PRN PRN Reason: Pain, severe (8-10) Last Admin: 07/21/17 14:18 Dose: 2 mg Meropenem 1 gm/ Sodium (Chloride) 100 mls @ 100 mls/hr IVPB Q8H [facility] Last Admin: 07/21/17 14:09 Dose: 100 mls/hr Sodium Chloride (Sodium Chloride 0.9%) 1,000 mls @ 100 mls/hr IV .Q10H [facility] Last Admin: 07/21/17 14:10 Dose: 100 mls/hr Vancomycin HCl 1 gm/ Sodium (Chloride) 250 mls @ 166.667 mls/hr IVPB Q12H [facility] Stop: 07/23/17 21:01 Ondansetron HCl (Zofran Inj) 4 mg IVP Q8 [facility] Last Admin: 07/21/17 14:15 Dose: 4 mg Pantoprazole Sodium (Protonix Ec Tab) 40 mg PO BID [facility] Last Admin: 07/21/17 09:40 Dose: 40 mg - Labs Labs: 07/21/17 07:59 07/21/17 07:59 PT 12.8 SECONDS (9.7-12.2) H 07/07/17 08:13 INR 1.1 07/07/17 08:13 APTT 29 SECONDS (21-34) 07/07/17 08:13 Assessment and Plan (1) Abdominal pain Status: Acute (2) Diarrhea Status: Acute (3) Vomiting Status: Acute (4) Wound of gluteal cleft Status: Acute (5) Abscess Status: Acute (6) Chest pain Status: Acute (7) Chest pain Status: Acute (8) Constipation Status: Acute (9) DVT (deep venous thrombosis) Status: Acute (10) Diarrhea Status: Acute (11) Encounter for wound care Status: Acute (12) Fever Status: Acute (13) Foreign body Status: Acute (14) Hematemesis with nausea Status: Acute (15) Intractable abdominal pain Status: Acute (16) Intractable pain Status: Acute (17) Prophylactic measure Status: Acute (18) Pulmonary embolism Status: Acute (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
--- NOTE | 2017-07-21 21:25 | CP.PCM.PN ---
Subjective - Date & Time of Evaluation Date of Evaluation: 07/21/17 Time of Evaluation: 03:00 - Subjective Subjective: dictated Objective - Vital Signs/Intake and Output Vital Signs (last 24 hours): Temp Pulse Resp BP Pulse Ox 98.4 F 89 20 107/75 98 07/21/17 15:10 07/21/17 15:10 07/21/17 15:10 07/21/17 15:10 07/21/17 15:10 Intake and Output: 07/21/17 07/22/17 18:59 06:59 Intake Total 980 Balance 980 - Medications Medications: Current Medications Diphenhydramine HCl (Benadryl) 25 mg IVP Q3 PRN PRN Reason: Itching Last Admin: 07/21/17 20:47 Dose: 25 mg Enoxaparin Sodium (Lovenox) 40 mg SC DAILY [facility]S [facility] Last Admin: 07/21/17 09:27 Dose: 40 mg Hydromorphone HCl (Dilaudid) 2 mg IVP Q3H PRN PRN Reason: Pain, severe (8-10) Last Admin: 07/21/17 20:46 Dose: 2 mg Meropenem 1 gm/ Sodium (Chloride) 100 mls @ 100 mls/hr IVPB Q8H [facility] Last Admin: 07/21/17 21:11 Dose: 100 mls/hr Sodium Chloride (Sodium Chloride 0.9%) 1,000 mls @ 100 mls/hr IV .Q10H [facility]S [facility] Last Admin: 07/21/17 14:10 Dose: 100 mls/hr Vancomycin HCl 1 gm/ Sodium (Chloride) 250 mls @ 166.667 mls/hr IVPB Q12H [facility]S [facility] Stop: 07/23/17 21:01 Last Admin: 07/21/17 20:48 Dose: 166.667 mls/hr Ondansetron HCl (Zofran Inj) 4 mg IVP Q8 [facility] Last Admin: 07/21/17 21:07 Dose: 4 mg Pantoprazole Sodium (Protonix Ec Tab) 40 mg PO BID [facility] Last Admin: 07/21/17 17:25 Dose: 40 mg - Labs Labs: 07/21/17 07:59 07/21/17 07:59 PT 12.8 SECONDS (9.7-12.2) H 07/07/17 08:13 INR 1.1 07/07/17 08:13 APTT 29 SECONDS (21-34) 07/07/17 08:13
[2017-07-22] MEDS: Sodium Chloride 0.9% 1,000 ML IV SCH ×5 (00:30→20:49)
--- NOTE | 2017-07-22 01:15 | PN ---
DATE: INFECTIOUS DISEASE FOLLOWUP SUBJECTIVE: The patient afebrile. Vitals are stable, but he complains of right axillary pain now. He may be developing an abscess there; however, it is in the folds and it is unclear whether it is induration or abscess. He does have a PICC line in the same arm. He insists on getting a Port-A-Cath back, as he receives Remicade. I am not sure if he can put it on this time. However, his cultures have been negative. We have started antibiotics. His culture was positive on 07/07/2017, and today we completed 14 days; however, he does have this axillary induration going on, so we will give it for couple of more days and see if it resolves and what the surgeon thinks about it. He also needs to plan a day to come back to get a Port-A-Cath done. Once he is done here or it should be done on this admission before he goes. PHYSICAL EXAMINATION: VITAL SIGNS: T-max is 98.4, pulse 89, blood pressure 107/75, respirations are 20. HEENT: Head is atraumatic, normocephalic. NECK: Supple. Axilla has induration and it does not seem like full abscess, but needs to be evaluated by surgeon. LUNGS: Clear. HEART: S1 and S2 regular. ABDOMEN: Soft, nontender. Colostomy is functioning. He still has abscesses on his perirectal area. EXTREMITIES: Have no edema. LABORATORY DATA: Labs are noted. Labs today show, WBC 7.1, hemoglobin 11.6, hematocrit 37.2, platelet count is 401. BUN is 10, creatinine 0.7. He remains on vancomycin and meropenem. Santosh Daniel MD
[2017-07-22] MEDS: DiphenhydrAMINE 50 mg/ml Inj IVP PRN ×7 (02:55→21:39)
[2017-07-22] MEDS: Meropenem 1 GM in Sodium Chloride 0.9% 100 ML IVPB SCH ×3 (06:08→22:33)
[2017-07-22] MEDS: Pantoprazole 40 mg EC Tab PO SCH ×2 (09:07→18:39)
[2017-07-22] MEDS: Enoxaparin 40 mg Syringe SC SCH (09:07)
--- NOTE | 2017-07-22 18:53 | CP.PCM.PN ---
Subjective - Date & Time of Evaluation Date of Evaluation: 07/22/17 Time of Evaluation: 07:00 - Subjective Subjective: clinically same Objective - Vital Signs/Intake and Output Vital Signs (last 24 hours): Temp Pulse Resp BP Pulse Ox 97.8 F 85 20 113/80 99 07/22/17 08:00 07/22/17 08:00 07/22/17 08:00 07/22/17 08:00 07/22/17 08:00 Intake and Output: 07/22/17 07/22/17 06:59 18:59 Intake Total 1750 2130 Output Total 1700 1650 Balance 50 480 - Medications Medications: Current Medications Diphenhydramine HCl (Benadryl) 25 mg IVP Q3 PRN PRN Reason: Itching Last Admin: 07/22/17 18:38 Dose: 25 mg Enoxaparin Sodium (Lovenox) 40 mg SC DAILY [facility] Last Admin: 07/22/17 09:07 Dose: 40 mg Hydromorphone HCl (Dilaudid) 2 mg IVP Q3H PRN PRN Reason: Pain, severe (8-10) Last Admin: 07/22/17 18:38 Dose: 2 mg Meropenem 1 gm/ Sodium (Chloride) 100 mls @ 100 mls/hr IVPB Q8H [facility] Last Admin: 07/22/17 14:04 Dose: 100 mls/hr Sodium Chloride (Sodium Chloride 0.9%) 1,000 mls @ 100 mls/hr IV .Q10H [facility] Last Admin: 07/22/17 15:23 Dose: 100 mls/hr Vancomycin HCl 1 gm/ Sodium (Chloride) 250 mls @ 166.667 mls/hr IVPB Q12H [facility] Stop: 07/23/17 21:01 Last Admin: 07/22/17 09:21 Dose: 166.667 mls/hr Ondansetron HCl (Zofran Inj) 4 mg IVP Q8 [facility] Last Admin: 07/22/17 14:04 Dose: 4 mg Pantoprazole Sodium (Protonix Ec Tab) 40 mg PO BID [facility] Last Admin: 07/22/17 18:39 Dose: 40 mg - Labs Labs: 07/21/17 07:59 07/21/17 07:59 PT 12.8 SECONDS (9.7-12.2) H 07/07/17 08:13 INR 1.1 07/07/17 08:13 APTT 29 SECONDS (21-34) 07/07/17 08:13 - Constitutional Appears: Well - Head Exam Head Exam: ATRAUMATIC, NORMAL INSPECTION, NORMOCEPHALIC - Eye Exam Eye Exam: EOMI, Normal appearance, PERRL Pupil Exam: NORMAL ACCOMODATION, PERRL - ENT Exam ENT Exam: Mucous Membranes Moist, Normal Exam - Neck Exam Neck Exam: Full ROM, Normal Inspection. absent: Lymphadenopathy - Respiratory Exam Respiratory Exam: Decreased Breath Sounds - Cardiovascular Exam Cardiovascular Exam: REGULAR RHYTHM, +S1, +S2 - GI/Abdominal Exam GI & Abdominal Exam: Soft, Diminished Bowel Sounds - Rectal Exam Rectal Exam: Deferred Assessment and Plan (1) Abdominal pain Status: Acute (2) Diarrhea Status: Acute (3) Vomiting Status: Acute (4) Wound of gluteal cleft Status: Acute (5) Abscess Status: Acute (6) Chest pain Status: Acute (7) Chest pain Status: Acute (8) Constipation Status: Acute (9) DVT (deep venous thrombosis) Status: Acute (10) Diarrhea Status: Acute (11) Encounter for wound care Status: Acute (12) Fever Status: Acute (13) Foreign body Status: Acute (14) Hematemesis with nausea Status: Acute (15) Intractable abdominal pain Status: Acute (16) Intractable pain Status: Acute (17) Prophylactic measure Status: Acute (18) Pulmonary embolism Status: Acute (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
[2017-07-23] MEDS: DiphenhydrAMINE 50 mg/ml Inj IVP PRN ×7 (00:27→18:45)
[2017-07-23] MEDS: Sodium Chloride 0.9% 1,000 ML IV SCH ×2 (06:20→07:04)
[2017-07-23] MEDS: Meropenem 1 GM in Sodium Chloride 0.9% 100 ML IVPB SCH ×2 (06:20→14:24)
[2017-07-23 07:45] VITALS: O2SAT 97
[2017-07-23] MEDS: Enoxaparin 40 mg Syringe SC SCH (09:22)
[2017-07-23] MEDS: Pantoprazole 40 mg EC Tab PO SCH (09:22)
[2017-07-23 13:54] LABS: BASO # 0.1 K/uL (0.0-0.2); EOS # 0.4 K/uL (0.0-0.7)
[2017-07-23 14:00] LABS: BASO % 1.1 % (0.0-2.0); EOS % 6.1 % (0.0-4.0); HEMATOCRIT 37.3 % (35.0-51.0); LYMPH # 2.9 K/uL (1.0-4.3); LYMPH % 42.9 % (20.0-40.0); MEAN CELL VOLUME 71.6 fL (80.0-94.0); MEAN CORPUSCULAR HEMOGLOBIN 22.9 pg (27.0-31.0); MEAN PLATELET VOLUME 8.6 fL (7.2-11.7); MONO # 0.3 K/uL (0.0-0.8); MONO % 4.1 % (0.0-10.0); RED CELL DISTRIBUTION WIDTH 19.7 % (11.5-14.5); WHITE BLOOD COUNT 6.9 K/uL (4.8-10.8)
[2017-07-23 14:05] LABS: NRBC % 0.4 % (0.0-2.0)
[2017-07-23 14:12] LABS: ALB/GLOB RATIO 0.8 (1.0-2.1); ALKALINE PHOSPHATASE 100 U/L (38-126); ALT/SGPT 49 U/L (21-72); AST/SGOT 47 U/L (17-59); BILIRUBIN,TOTAL 0.7 mg/dL (0.2-1.3); BLOOD UREA NITROGEN 8 mg/dL (9-20); CALCIUM 8.9 mg/dl (8.6-10.4); CARBON DIOXIDE 26 mmol/L (22-30); CHLORIDE 100 mmol/L (98-107); GFR AFRICAN-AMERICAN > 60; GLUCOSE,RANDOM 98 mg/dL (75-110); POTASSIUM 4.3 mmol/L (3.6-5.2); SODIUM 130 mmol/L (132-148); TOTAL PROTEIN 8.7 g/dL (6.3-8.3)
--- NOTE | 2017-07-23 16:25 | CP.PCM.PN ---
Subjective - Date & Time of Evaluation Date of Evaluation: 07/23/17 Time of Evaluation: 16:25 Objective - Vital Signs/Intake and Output Vital Signs (last 24 hours): Temp Pulse Resp BP Pulse Ox 97.8 F 92 H 20 108/71 97 07/23/17 07:44 07/23/17 07:44 07/23/17 07:44 07/23/17 07:44 07/23/17 07:44 Intake and Output: 07/23/17 07/23/17 06:59 18:59 Intake Total 1330 2330 Output Total 1500 3375 Balance -170 -1045 - Medications Medications: Current Medications Diphenhydramine HCl (Benadryl) 25 mg IVP Q3 PRN PRN Reason: Itching Last Admin: 07/23/17 15:42 Dose: 25 mg Enoxaparin Sodium (Lovenox) 40 mg SC DAILY [facility] Last Admin: 07/23/17 09:22 Dose: 40 mg Hydromorphone HCl (Dilaudid) 2 mg IVP Q3H PRN PRN Reason: Pain, severe (8-10) Last Admin: 07/23/17 15:42 Dose: 2 mg Meropenem 1 gm/ Sodium (Chloride) 100 mls @ 100 mls/hr IVPB Q8H [facility] Last Admin: 07/23/17 14:24 Dose: 100 mls/hr Sodium Chloride (Sodium Chloride 0.9%) 1,000 mls @ 100 mls/hr IV .Q10H [facility] Last Admin: 07/23/17 07:04 Dose: Not Given Vancomycin HCl 1 gm/ Sodium (Chloride) 250 mls @ 166.667 mls/hr IVPB Q12H [facility] Stop: 07/23/17 21:01 Last Admin: 07/23/17 09:20 Dose: 166.667 mls/hr Ondansetron HCl (Zofran Inj) 4 mg IVP Q8 [facility] Last Admin: 07/23/17 14:25 Dose: Not Given Pantoprazole Sodium (Protonix Ec Tab) 40 mg PO BID [facility] Last Admin: 07/23/17 09:22 Dose: 40 mg - Labs Labs: 07/23/17 13:48 07/23/17 13:48 PT 12.8 SECONDS (9.7-12.2) H 07/07/17 08:13 INR 1.1 07/07/17 08:13 APTT 29 SECONDS (21-34) 07/07/17 08:13
--- NOTE | 2017-07-23 16:41 | CP.PCM.PN ---
Subjective - Date & Time of Evaluation Date of Evaluation: 07/23/17 Time of Evaluation: 04:15 - Subjective Subjective: dictated Objective - Vital Signs/Intake and Output Vital Signs (last 24 hours): Temp Pulse Resp BP Pulse Ox 97.8 F 92 H 20 108/71 97 07/23/17 07:44 07/23/17 07:44 07/23/17 07:44 07/23/17 07:44 07/23/17 07:44 Intake and Output: 07/23/17 07/23/17 06:59 18:59 Intake Total 1330 2330 Output Total 1500 3375 Balance -170 -1041 - Medications Medications: Current Medications Diphenhydramine HCl (Benadryl) 25 mg IVP Q3 PRN PRN Reason: Itching Last Admin: 07/23/17 15:42 Dose: 25 mg Enoxaparin Sodium (Lovenox) 40 mg SC DAILY [facility] Last Admin: 07/23/17 09:22 Dose: 40 mg Hydromorphone HCl (Dilaudid) 2 mg IVP Q3H PRN PRN Reason: Pain, severe (8-10) Last Admin: 07/23/17 15:42 Dose: 2 mg Meropenem 1 gm/ Sodium (Chloride) 100 mls @ 100 mls/hr IVPB Q8H [facility] Last Admin: 07/23/17 14:24 Dose: 100 mls/hr Sodium Chloride (Sodium Chloride 0.9%) 1,000 mls @ 100 mls/hr IV .Q10H [facility] Last Admin: 07/23/17 07:04 Dose: Not Given Vancomycin HCl 1 gm/ Sodium (Chloride) 250 mls @ 166.667 mls/hr IVPB Q12H [facility] Stop: 07/23/17 21:01 Last Admin: 07/23/17 09:20 Dose: 166.667 mls/hr Ondansetron HCl (Zofran Inj) 4 mg IVP Q8 [facility] Last Admin: 07/23/17 14:25 Dose: Not Given Pantoprazole Sodium (Protonix Ec Tab) 40 mg PO BID [facility] Last Admin: 07/23/17 09:22 Dose: 40 mg - Labs Labs: 07/23/17 13:48 07/23/17 13:48 PT 12.8 SECONDS (9.7-12.2) H 07/07/17 08:13 INR 1.1 07/07/17 08:13 APTT 29 SECONDS (21-34) 07/07/17 08:13
[2017-07-23 16:52] VITALS: BP 110/74; PULSE 88; TEMP 98.2
--- NOTE | 2017-07-23 18:48 | CP.PCM.PN ---
Subjective - Date & Time of Evaluation Date of Evaluation: 07/23/17 Time of Evaluation: 07:00 - Subjective Subjective: clinically same Objective - Vital Signs/Intake and Output Vital Signs (last 24 hours): Temp Pulse Resp BP Pulse Ox 98.2 F 88 20 110/74 97 07/23/17 15:20 07/23/17 15:20 07/23/17 15:20 07/23/17 15:20 07/23/17 07:44 Intake and Output: 07/23/17 07/23/17 06:59 18:59 Intake Total 1330 2330 Output Total 1500 3375 Balance -170 -1048 - Medications Medications: Current Medications Diphenhydramine HCl (Benadryl) 25 mg IVP Q3 PRN PRN Reason: Itching Last Admin: 07/23/17 15:42 Dose: 25 mg Enoxaparin Sodium (Lovenox) 40 mg SC DAILY [facility] Last Admin: 07/23/17 09:22 Dose: 40 mg Hydromorphone HCl (Dilaudid) 2 mg IVP Q3H PRN PRN Reason: Pain, severe (8-10) Last Admin: 07/23/17 15:42 Dose: 2 mg Meropenem 1 gm/ Sodium (Chloride) 100 mls @ 100 mls/hr IVPB Q8H [facility] Last Admin: 07/23/17 14:24 Dose: 100 mls/hr Sodium Chloride (Sodium Chloride 0.9%) 1,000 mls @ 100 mls/hr IV .Q10H [facility] Last Admin: 07/23/17 07:04 Dose: Not Given Vancomycin HCl 1 gm/ Sodium (Chloride) 250 mls @ 166.667 mls/hr IVPB Q12H [facility] Stop: 07/23/17 21:01 Last Admin: 07/23/17 09:20 Dose: 166.667 mls/hr Ondansetron HCl (Zofran Inj) 4 mg IVP Q8 [facility] Last Admin: 07/23/17 14:25 Dose: Not Given Pantoprazole Sodium (Protonix Ec Tab) 40 mg PO BID [facility] Last Admin: 07/23/17 09:22 Dose: 40 mg - Labs Labs: 07/23/17 13:48 07/23/17 13:48 PT 12.8 SECONDS (9.7-12.2) H 07/07/17 08:13 INR 1.1 07/07/17 08:13 APTT 29 SECONDS (21-34) 07/07/17 08:13 Assessment and Plan (1) Abdominal pain Status: Acute (2) Diarrhea Status: Acute (3) Vomiting Status: Acute (4) Wound of gluteal cleft Status: Acute (5) Abscess Status: Acute (6) Chest pain Status: Acute (7) Chest pain Status: Acute (8) Constipation Status: Acute (9) DVT (deep venous thrombosis) Status: Acute (10) Diarrhea Status: Acute (11) Encounter for wound care Status: Acute (12) Fever Status: Acute (13) Foreign body Status: Acute (14) Hematemesis with nausea Status: Acute (15) Intractable abdominal pain Status: Acute (16) Intractable pain Status: Acute (17) Prophylactic measure Status: Acute (18) Pulmonary embolism Status: Acute (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
--- NOTE | 2017-07-24 01:41 | PN ---
DATE: SUBJECTIVE: The patient was seen today. The rifle case repairer was saying that he should go home. He has completed his IV antibiotic for 2 weeks. He was stable. He still complains of some axillary pain, but there is no abscess formation. Just that PICC line on the same side may be causing him some pain. Today, I did not find any induration. PHYSICAL EXAMINATION: VITAL SIGNS: T-max is 98.2, pulse 88, blood pressure 110/74, respirations are 20. HEENT: Head is atraumatic and normocephalic. NECK: Supple. LUNGS: Clear. HEART: S1, S2 is regular. ABDOMEN: Soft, nontender. Colostomy is functioning. EXTREMITIES: Remain without edema. ASSESSMENT AND PLAN: The right side PICC line was present and it was to be discontinued before he goes home. Left side Port-A-Cath site is healing. He wanted a Port-A-Cath to be inserted, but I told him that he needs a peripheral IV if Remicade is every twice a month or once a month, and he should not have any lines put in now, as he did have infection, bacteremia, and it is not advised to leave a line in, as he did come in with bacteremia. So, he will be going home, and we are giving him Bactrim for 10 days, so that he does not develop abscess in that area. 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 He needs to follow with his doctor as well as surgeon and the primary. Santosh Daniel MD
--- NOTE | 2017-07-24 04:05 | CP.PCM.PN ---
Subjective - Date & Time of Evaluation Date of Evaluation: 07/23/17 Time of Evaluation: 07:10 - Subjective Subjective: House Doctor Called for [facility] Patient seen and examined at bedside. Patient on knees by bed when I walked into the room. Patient got out of bed after getting his pain meds and walked to the bathroom to change his ostomy bag. On the way back into bed patient says he got caught on the wheel of the medication pole and fell to his knees. Fall was seen by CP. Patient did not hit his head or lose consciousness. Patient was not dizzy at the time but became lightheaded afterwards. Patient's knees are tender to touch. Patient denies any shortness of breath, chest pain, or palpitations. No imaging to be ordered. Patient still stable for discharge. Objective - Vital Signs/Intake and Output Vital Signs (last 24 hours): Temp Pulse Resp BP Pulse Ox 98.2 F 88 20 110/74 97 07/23/17 15:20 07/23/17 15:20 07/23/17 15:20 07/23/17 15:20 07/23/17 07:44 Intake and Output: 07/23/17 07/24/17 18:59 06:59 Intake Total 2330 Output Total 3375 Balance -1045 - Labs Labs: 07/23/17 13:48 07/23/17 13:48 PT 12.8 SECONDS (9.7-12.2) H 07/07/17 08:13 INR 1.1 07/07/17 08:13 APTT 29 SECONDS (21-34) 07/07/17 08:13
== END 2017-07-23 20:20 | disposition home or self-care (01) | DRG 543 ==
LOC: C.ER 21:29 → INTOOBSV 23:15 → C.9E 23:15 → C.5S 23:45 → OBSVTOIN 07-07 14:58 → C.5S 07-09 15:44 → C.3T 07-16 13:38
PROVIDERS: ADMIT Internal Medicine Nephrology; ATTEND Internal Medicine Nephrology
PROC: 0JPT0WZ Removal of Totally Implantable Vascular Access Device from Trunk Subcutaneous Tissue and Fascia, Open Approach (ICD-10-PCS; principal; 2017-07-15 09:45)
PROC: 02HV33Z Insertion of Infusion Device into Superior Vena Cava, Percutaneous Approach (ICD-10-PCS; 2017-07-17)
DX: T80.211A Bloodstream infection due to central venous catheter, initial encounter (principal); L89.159 Pressure ulcer of sacral region, unspecified stage; A41.52 Sepsis due to Pseudomonas; K22.11 Ulcer of esophagus with bleeding; I82.B19 Acute embolism and thrombosis of unspecified subclavian vein; B96.5 Pseudomonas (aeruginosa) (mallei) (pseudomallei) as the cause of diseases classified elsewhere; I82.C21 Chronic embolism and thrombosis of right internal jugular vein; K61.2 Anorectal abscess; K50.90 Crohn's disease, unspecified, without complications; D64.9 Anemia, unspecified; F32.9 Major depressive disorder, single episode, unspecified; G89.29 Other chronic pain; K59.00 Constipation, unspecified; K62.89 Other specified diseases of anus and rectum; B95.8 Unspecified staphylococcus as the cause of diseases classified elsewhere; Z86.718 Personal history of other venous thrombosis and embolism; K29.70 Gastritis, unspecified, without bleeding; Z87.19 Personal history of other diseases of the digestive system; Z93.3 Colostomy status

== ENCOUNTER 2017-07-28 19:29 | Inpatient (IN) | payer MEDICAID ==
[2017-07-28 19:29] VITALS: BMI 20.6
[2017-07-28] MEDS ORDERED: Sodium Chloride 0.9% 1,000 ML IV ONE (21:02)
[2017-07-28] MEDS ORDERED: HYDROmorphone 1 mg/ml ISec IVP STA (21:02)
[2017-07-28] MEDS ORDERED: DiphenhydrAMINE 50 mg/ml Inj IVP STA (21:02)
--- NOTE | 2017-07-28 21:31 | C.PDOC ---
History Of Present Illness 22 y/o male with PMHx of crohn's disease and with Colostomy bag in place presents to ED with complaints of vomiting blood today. Patient reports he passed stool through rectum today. Patient has a fistula and denies fever, chills, back pain, diarrhea or any other complaints at this time. Time Seen by Provider: 07/28/17 20:34 Chief Complaint (Nursing): GI Problem History Per: Patient History/Exam Limitations: no limitations Onset/Duration Of Symptoms: Days Current Symptoms Are (Timing): Still Present Past Medical History Reviewed: Historical Data, Nursing Documentation, Vital Signs Vital Signs: Last Vital Signs Temp 98.5 F 07/28/17 19:35 Pulse 92 H 07/28/17 20:07 Resp 17 07/28/17 20:07 BP 112/88 07/28/17 20:07 Pulse Ox 97 07/28/17 21:32 - Medical History PMH: Crohn's Disease (COLOSTOMY 2015), Depression Surgical History: No Surg Hx - [facility] Procedures DRAINAGE OF BACK SKIN, EXTERNAL APPROACH (06/22/17) DRAINAGE OF BACK SUBCU/FASCIA, OPEN APPROACH (10/21/16) DRAINAGE OF BUTTOCK SKIN, EXTERNAL APPROACH, DIAGNOSTIC (09/23/16) DRAINAGE OF BUTTOCK SUBCU/FASCIA, OPEN APPROACH (03/22/17) DRAINAGE OF BUTTOCK SUBCU/FASCIA, OPEN APPROACH, DIAGN (03/22/17) DRAINAGE OF LEFT AXILLA, OPEN APPROACH (12/21/16) DRAINAGE OF PERINEUM SKIN, EXTERNAL APPROACH (06/22/17) DRAINAGE OF PERINEUM SUBCU/FASCIA, OPEN APPROACH (01/30/17) EXCISION OF BACK SKIN, EXTERNAL APPROACH (09/23/16) EXCISION OF BACK SUBCU/FASCIA, OPEN APPROACH (10/21/16) EXCISION OF BUTTOCK SKIN, EXTERNAL APPROACH (03/22/17) EXCISION OF BUTTOCK SUBCU/FASCIA, OPEN APPROACH (10/21/16) EXCISION OF LEFT AXILLARY LYMPHATIC, OPEN APPROACH (12/21/16) EXCISION OF PERINEUM SKIN, EXTERNAL APPROACH (03/22/17) EXTRACTION OF BUTTOCK SKIN, EXTERNAL APPROACH (09/23/16) EXTRACTION OF PERINEUM SUBCU/FASCIA, OPEN APPROACH (01/30/17) GROUP PSYCHOTHERAPY (11/25/16) INDIVIDUAL PSYCHOTHERAPY, COGNITIVE-BEHAVIORAL (11/25/16) INDIVIDUAL PSYCHOTHERAPY, SUPPORTIVE (05/23/17) INSERTION OF INFUSION DEV INTO SUP VENA CAVA, PERC APPROACH (07/07/17) REMOVAL OF INFUSION DEV FROM GREAT VESSEL, SUPPLY CHAIN DESIGN MANAGER APPROACH (12/21/16) REMOVAL OF RESERVOIR FROM TRUNK SUBCU/FASCIA, OPEN APPROACH (07/07/17) ULTRASONOGRAPHY OF SUPERIOR VENA CAVA, GUIDANCE (05/23/17) Family History: States: No Known Family Hx - Social History Hx Alcohol Use: Yes Hx Substance Use: No - Immunization History Hx Tetanus Toxoid Vaccination: No Hx Influenza Vaccination: Yes Hx Pneumococcal Vaccination: No Review Of Systems Constitutional: Negative for: Fever, Chills Cardiovascular: Negative for: Chest Pain Gastrointestinal: Positive for: Vomiting, Hematemesis. Negative for: Nausea, Abdominal Pain Musculoskeletal: Negative for: Back Pain Skin: Negative for: Rash Physical Exam - Physical Exam Appears: Non-toxic, No Acute Distress Skin: Normal Color, Warm, Dry, No Rash Head: Atraumatic, Normacephalic Eye(s): bilateral: Normal Inspection Oral Mucosa: Moist Neck: Normal ROM, Supple Cardiovascular: Rhythm Regular Respiratory: Normal Breath Sounds, No Rales, No Rhonchi, No Wheezing Gastrointestinal/Abdominal: Soft, No Tenderness, No Guarding, No Rebound, Other (Colostomy bag in place) Back: No CVA Tenderness Extremity: Normal ROM, Capillary Refill (<2 seconds) Neurological/Psych: Oriented x3 ED Course And Treatment - Laboratory Results Result Diagrams: 07/28/17 21:42 07/28/17 21:42 ECG: Interpreted By Me, Viewed By Me ECG Rhythm: Sinus Tachycardia Interpretation Of ECG: Normal access, Normal Intervals No ST/T wave changes Rate From EC (BPM) O2 Sat by Pulse Oximetry: 97 (RA) Disposition Discussed With : Osvaldo Barrett Doctor Will See Patient In The: Hospital Counseled Patient/Family Regarding: Studies Performed, Diagnosis - Disposition Disposition: HOSPITALIZED Disposition Time: 22:58 Condition: STABLE Forms: [facility] ([place]) - Clinical Impression Clinical Impression: Gastrointestinal hemorrhage - Scribe Statement The provider has reviewed the documentation as recorded by the Laneyibkenna Lo All medical record entries made by the Scribkenna were at my direction and personally dictated by me. I have reviewed the chart and agree that the record accurately reflects my personal performance of the history, physical exam, medical decision making, and the department course for this patient. I have also personally directed, reviewed, and agree with the discharge instructions and disposition.
[2017-07-28 21:53] LABS: BASO % 0.4 % (0.0-2.0); HEMATOCRIT 36.5 % (35.0-51.0); LYMPH # 3.2 K/uL (1.0-4.3); LYMPH % 27.7 % (20.0-40.0); MEAN CELL VOLUME 71.4 fL (80.0-94.0); MEAN CORPUSCULAR HEMOGLOBIN 22.5 pg (27.0-31.0); MEAN CORPUSCULAR HGB CONC 31.5 g/dL (33.0-37.0); MEAN PLATELET VOLUME 8.1 fL (7.2-11.7); MONO # 0.5 K/uL (0.0-0.8); MONO % 4.3 % (0.0-10.0); NRBC % 0.1 % (0.0-2.0); RED CELL DISTRIBUTION WIDTH 19.8 % (11.5-14.5); WHITE BLOOD COUNT 11.4 K/uL (4.8-10.8)
[2017-07-28] MEDS ORDERED: DiphenhydrAMINE 50 mg/ml Inj ONE (21:55)
[2017-07-28] MEDS ORDERED: HYDROmorphone 0.5 mg/0.5 ml ISec ONE (21:55)
[2017-07-28] MEDS ORDERED: Sodium Chloride 0.9% 1,000 ML ONE (21:55)
[2017-07-28 22:02] LABS: ALB/GLOB RATIO 0.9 (1.0-2.1); ALKALINE PHOSPHATASE 92 U/L (38-126); ALT/SGPT 46 U/L (21-72); AST/SGOT 37 U/L (17-59); BILIRUBIN,TOTAL 0.5 mg/dL (0.2-1.3); BLOOD UREA NITROGEN 14 mg/dL (9-20); CALCIUM 9.2 mg/dl (8.6-10.4); CARBON DIOXIDE 25 mmol/L (22-30); CHLORIDE 102 mmol/L (98-107); GFR AFRICAN-AMERICAN > 60; GLUCOSE,RANDOM 107 mg/dL (75-110); POTASSIUM 4.7 mmol/L (3.6-5.2); SODIUM 138 mmol/L (132-148); TOTAL PROTEIN 9.2 g/dL (6.3-8.3)
[2017-07-29] MEDS ORDERED: HYDROmorphone 0.5 mg/0.5 ml ISec IVP STA (00:41)
[2017-07-29] MEDS: DiphenhydrAMINE 50 mg/ml Inj IVP PRN ×7 (02:36→21:05)
--- NOTE | 2017-07-29 07:07 | CP.PCM.CON ---
<Arely Morales - Last Filed: 07/29/17 07:09> History of Present Illness - History of Present Illness History of Present Illness: GI Fellow PGY4 Consult Note This is a 22yo male with PMHx significant for Crohn's Disease diagnosed 5 years ago, complicated by multiple intraabdominal/pelvic abscesses s/p multiple I&Ds, loop colostomy 04/2016. Pt is presenting with complaints of hematemesis for 1 day , pt reports he has been vomiting3-4xday with dark blood. Pt [place] I[place] [facility] [place] saw his GI doctor for Remicaide infusion and was told if he has further episodes to go to the ER. Pt reports his last EGD was06/19/17 at [facility] [place] his primary GI doctor and showed erosive gastritis/esophagitis no PUD and recommend PPI BID, colonoscopy was August 2016. Pt denies melena, hematochezia. Pt is on Humira 40mg q2 weeks and next dose is tomorrow. Pt is on Remicaide and last dose was yesterday 07/28/17. Since admission, no further hematemesis. Pt was recently discharged on 07/24/17 for bacteremia from portacath which was removed and he was treated with abx. Pt reports he was feeling better but yesterday started feeling nauseous and had multiple episodes of coffee ground emesis. ROS: A 12pt ROS was negative except as above PMHx: See HPI PSHx: Partial colectomy 02/2015, loop colostomy 04/2016, multiple I&Ds perianal abscesses FHx: Paternal aunt - Crohn's SHx: Denies tobacco, EtOH or illicit drug use Endo: Last colonoscopy in August 2016 @ [facility], EGD 06/19/17 Past Patient History - Infectious Disease Hx of Infectious Diseases: None - Past Medical History & Family History Past Medical History?: Yes - Past Social History Smoking Status: Never Smoked - CARDIAC Hx Cardiac Disorders: No - PULMONARY Hx Respiratory Disorders: No - NEUROLOGICAL Hx Neurological Disorder: No - HEENT Hx HEENT Problems: No - RENAL Hx Chronic Kidney Disease: No - ENDOCRINE/METABOLIC Hx Endocrine Disorders: No - HEMATOLOGICAL/ONCOLOGICAL Hx Blood Disorders: No - INTEGUMENTARY Hx Dermatological Problems: Yes Other/Comment: Perineal wound. Rectal abcess - MUSCULOSKELETAL/RHEUMATOLOGICAL Hx Falls: Yes - GASTROINTESTINAL Hx Crohn's Disease: Yes (COLOSTOMY 2016) - GENITOURINARY/GYNECOLOGICAL Hx Genitourinary Disorders: No - PSYCHIATRIC Hx Substance Use: No - SURGICAL HISTORY Hx Surgeries: Yes (SEE COMMENT) Other/Comment: LOOP COLOSTOMY. Perineal wound. COLON RESECTION - ANESTHESIA Hx Anesthesia: Yes Hx Anesthesia Reactions: No Hx Malignant Hyperthermia: No Meds Allergies/Adverse Reactions: Allergies Allergy/AdvReac Type Severity Reaction Status Date / Time morphine Allergy Severe ITCHING Verified 07/28/17 19:33 - Medications Medications: Current Medications Ascorbic Acid (Vitamin C 500 Mg Tab) 500 mg PO DAILY [facility] Cyanocobalamin (Vitamin B12 1000 Mcg Tab) 1,000 mcg PO DAILY [facility] Diphenhydramine HCl (Benadryl) 25 mg IVP Q3H PRN PRN Reason: Itching / Pruritus Last Admin: 07/29/17 05:48 Dose: 25 mg Enoxaparin Sodium (Lovenox) 30 mg SC DAILY [facility] Escitalopram Oxalate (Lexapro) 5 mg PO PRN PRN PRN Reason: depression Ferrous Sulfate (Feosol) 325 mg PO BID [facility] Hydromorphone HCl (Dilaudid) 2 mg IVP Q3H PRN PRN Reason: Pain, severe (8-10) Last Admin: 07/29/17 05:51 Dose: 2 mg Lactobacillus Acidophilus (Bacid Acidophilus) 1 cap PO BID [facility] Loperamide HCl (Imodium) 2 mg PO TID PRN PRN Reason: Diarrhea Mesalamine (Delzicol) 800 mg PO DAILY [facility] Multivitamins (Hexavitamin) 1 tab PO DAILY [facility] Pantoprazole Sodium (Protonix Ec Tab) 40 mg PO DAILY [facility] Physical Exam - Constitutional Appears: Non-toxic, No Acute Distress - Head Exam Head Exam: ATRAUMATIC, NORMAL INSPECTION, NORMOCEPHALIC - Eye Exam Eye Exam: EOMI, Normal appearance - ENT Exam ENT Exam: Mucous Membranes Moist, Normal Exam - Neck Exam Neck exam: Positive for: Normal Inspection - Respiratory Exam Respiratory Exam: Clear to Auscultation Bilateral, NORMAL BREATHING PATTERN - Cardiovascular Exam Cardiovascular Exam: REGULAR RHYTHM - GI/Abdominal Exam GI & Abdominal Exam: Normal Bowel Sounds, Soft, Tenderness. absent: Distended, Organomegaly Additional comments: colostomy bag with solid brown stool - Extremities Exam Extremities exam: Positive for: normal inspection - Back Exam Back exam: NORMAL INSPECTION - Neurological Exam Neurological exam: Alert, Oriented x3 - Psychiatric Exam Psychiatric exam: Normal Affect, Normal Mood - Skin Skin Exam: Dry, Intact, Normal Color, Warm Results - Vital Signs Recent Vital Signs: Last Vital Signs Temp 98.1 F 07/29/17 01:10 Pulse 74 07/29/17 04:17 Resp 20 07/29/17 01:10 BP 125/83 07/29/17 01:10 Pulse Ox 99 07/29/17 01:10 - Labs Result Diagrams: 07/28/17 21:42 07/28/17 21:42 Labs: Laboratory Results - last 24 hr 07/28/17 07/28/17 07/28/17 21:42 21:42 21:42 WBC 11.4 H D RBC 5.11 Hgb 11.5 L Hct 36.5 MCV 71.4 L MCH 22.5 L MCHC 31.5 L RDW 19.8 H Plt Count 345 MPV 8.1 Neut % (Auto) 67.6 Lymph % (Auto) 27.7 [place] % (Auto) 4.3 Eos % (Auto) 0.0 Baso % (Auto) 0.4 Neut # 7.7 H Lymph # 3.2 [place] # 0.5 Eos # 0.0 Baso # 0.0 Differential Comment PT 11.6 INR 1.0 APTT 21 Sodium 138 Potassium 4.7 Chloride 102 Carbon Dioxide 25 Anion Gap 16 BUN 14 Creatinine 0.6 L Est GFR ( Amer) > 60 Est GFR (Non-Af Amer) > 60 Random Glucose 107 Calcium 9.2 Total Bilirubin 0.5 AST 37 ALT 46 Alkaline Phosphatase 92 Troponin I < 0.0120 Total Protein 9.2 H Albumin 4.3 Globulin 4.9 H Albumin/Globulin Ratio 0.9 L Lipase 129 Assessment & Plan - Assessment and Plan (Free Text) Assessment: This is a 22yM with a hx of Crohn's Disease presenting with hematemesis. 1. Hematemesis 2. Crohn's Disease 3. Perianal abscess s/p multiple I&Ds 4. Hx of Bacteremia from infected portacath Plan: -Pt with no further active GI bleeding, no hematemesis, melena, hematochezia -Colostomy bag with solid brown stool -Hgb stable, continue to monitor, hemodynamically stable -Continue regular diet and see if pt tolerates -No plan for emergent endoscopy at this time -Recent EGD 06/19/17 with erosive gastritis/esophagitis, no PUD -Order PPI BID -Recommend follow up with his primary GI doctor -Will continue to follow closely <Stevie Tobin - Last Filed: 07/29/17 13:14> Meds - Medications Medications: Current Medications Ascorbic Acid (Vitamin C 500 Mg Tab) 500 mg PO DAILY [facility] Last Admin: 07/29/17 10:07 Dose: 500 mg Cyanocobalamin (Vitamin B12 1000 Mcg Tab) 1,000 mcg PO DAILY [facility] Last Admin: 07/29/17 10:07 Dose: 1,000 mcg Diphenhydramine HCl (Benadryl) 25 mg IVP Q3H PRN PRN Reason: Itching / Pruritus Last Admin: 07/29/17 12:02 Dose: 25 mg Enoxaparin Sodium (Lovenox) 30 mg SC DAILY [facility] Last Admin: 07/29/17 10:06 Dose: 30 mg Escitalopram Oxalate (Lexapro) 5 mg PO DAILY [facility] Last Admin: 07/29/17 10:18 Dose: 5 mg Ferrous Sulfate (Feosol) 325 mg PO BID [facility] Last Admin: 07/29/17 10:07 Dose: 325 mg Hydromorphone HCl (Dilaudid) 2 mg IVP Q3H PRN PRN Reason: Pain, severe (8-10) Last Admin: 07/29/17 12:00 Dose: 2 mg Lactobacillus Acidophilus (Bacid Acidophilus) 1 cap PO BID [facility] Last Admin: 07/29/17 10:07 Dose: 1 cap Loperamide HCl (Imodium) 2 mg PO TID PRN PRN Reason: Diarrhea Mesalamine (Delzicol) 800 mg PO DAILY [facility] Last Admin: 07/29/17 10:06 Dose: 800 mg Multivitamins (Hexavitamin) 1 tab PO DAILY [facility] Last Admin: 07/29/17 10:07 Dose: 1 tab Pantoprazole Sodium (Protonix Ec Tab) 40 mg PO DAILY [facility] Last Admin: 07/29/17 10:07 Dose: 40 mg Sucralfate (Carafate Oral Susp) 1 gm PO QID [facility] Last Admin: 07/29/17 10:10 Dose: 1 gm Results - Vital Signs Recent Vital Signs: Last Vital Signs Temp 97.8 F 07/29/17 08:07 Pulse 63 07/29/17 08:07 Resp 18 07/29/17 08:07 BP 113/58 L 07/29/17 08:07 Pulse Ox 98 07/29/17 08:07 - Labs Result Diagrams: 07/29/17 11:43 07/29/17 11:43 Labs: Laboratory Results - last 24 hr 07/28/17 07/28/17 07/28/17 21:42 21:42 21:42 WBC 11.4 H D RBC 5.11 Hgb 11.5 L Hct 36.5 MCV 71.4 L MCH 22.5 L MCHC 31.5 L RDW 19.8 H Plt Count 345 MPV 8.1 Neut % (Auto) 67.6 Lymph % (Auto) 27.7 [place] % (Auto) 4.3 Eos % (Auto) 0.0 Baso % (Auto) 0.4 Neut # 7.7 H Lymph # 3.2 [place] # 0.5 Eos # 0.0 Baso # 0.0 Differential Comment PT 11.6 INR 1.0 APTT 21 Sodium 138 Potassium 4.7 Chloride 102 Carbon Dioxide 25 Anion Gap 16 BUN 14 Creatinine 0.6 L Est GFR ( Amer) > 60 Est GFR (Non-Af Amer) > 60 Random Glucose 107 Calcium 9.2 Total Bilirubin 0.5 AST 37 ALT 46 Alkaline Phosphatase 92 Troponin I < 0.0120 Total Protein 9.2 H Albumin 4.3 Globulin 4.9 H Albumin/Globulin Ratio 0.9 L Lipase 129 07/29/17 07/29/17 11:43 11:43 WBC 15.3 H RBC 4.82 Hgb 10.7 L Hct 34.5 L MCV 71.5 L MCH 22.1 L MCHC 31.0 L RDW 19.7 H Plt Count 345 MPV 8.1 Neut % (Auto) 53.8 Lymph % (Auto) 36.3 [place] % (Auto) 9.1 Eos % (Auto) 0.4 Baso % (Auto) 0.4 Neut # 8.3 H Lymph # 5.6 H [place] # 1.4 H Eos # 0.1 Baso # 0.1 Differential Comment PT INR APTT Sodium 139 Potassium 3.9 Chloride 103 Carbon Dioxide 25 Anion Gap 15 BUN 11 Creatinine 0.7 L Est GFR ( Amer) > 60 Est GFR (Non-Af Amer) > 60 Random Glucose 79 Calcium 8.3 L Total Bilirubin 0.6 AST 24 ALT 45 Alkaline Phosphatase 74 Troponin I Total Protein 6.9 Albumin 3.7 Globulin 3.1 Albumin/Globulin Ratio 1.2 Lipase Attending/Attestation - Attestation I have personally seen and examined this patient.: Yes I have fully participated in the care of the patient.: Yes I have reviewed all pertinent clinical information: Yes Notes (Text): 07/29/17 13:12 22 year old male with complicated Crohn's disease admitted with coffee ground emesis. 1. Coffee ground emesis 2. Crohn's Disease 3. Erosive gastritis 4. Erosive esophagitis Plan: -hemoglobin stable, no overt blood loss since admission -recommend PPI BID and start carafate -liquid diet today and advance as tolerated -recent EGD was performed and showed erosive gastritis/esophagitis
--- NOTE | 2017-07-29 08:10 | RAD ---
PROCEDURE: Radiographs of the chest and abdomen (obstructive series) HISTORY: abd pain COMPARISON: Nonobstructive bowel gas pattern. TECHNIQUE: AP radiograph of the chest, with upright and supine radiographs of the abdomen. FINDINGS: CHEST: Lungs: Clear. Cardiovascular: Normal size heart. No pulmonary vascular congestion. Pleura: No pleural fluid. No pneumothorax. Other findings: None. ABDOMEN AND PELVIS: Bowel: Unremarkable bowel gas pattern. No evidence of mechanical obstruction. A moderate amount retained fecal material is identified within large bowel loops relatively diffusely. Free air: None. Bones: Unremarkable. Other findings: Apparent colostomy left flank/ lower quadrant. Somewhat hyperdense material at the left pelvis inferiorly is felt represent retained stool within colostomy bag most likely. IMPRESSION: Unremarkable radiographs of chest and abdomen. No evidence of mechanical bowel obstruction.
[2017-07-29] MEDS: Enoxaparin 30 mg Syringe SC SCH (10:06)
[2017-07-29] MEDS: Multiple Vitamins Tab PO SCH (10:07)
[2017-07-29] MEDS: Pantoprazole 40 mg EC Tab PO SCH (10:07)
[2017-07-29] MEDS: Lactobacillus Acidophilus 500 MU Cap PO SCH ×2 (10:07→18:00)
[2017-07-29] MEDS: Sucralfate 1 gm/10 ml Oral Susp UD PO SCH ×4 (10:10→21:26)
--- NOTE | 2017-07-29 10:31 | RAD ---
PROCEDURE: CHEST RADIOGRAPH, 1 VIEW HISTORY: Verify left PICC COMPARISON: None available. FINDINGS: LUNGS: Clear. PLEURA: No pneumothorax or pleural fluid seen. CARDIOVASCULAR: New left PICC catheter terminates at the cavoatrial junction. Normal heart size. No congestive change peer OSSEOUS STRUCTURES: No significant abnormalities. VISUALIZED UPPER ABDOMEN: Normal. OTHER FINDINGS: None. IMPRESSION: New left PICC catheter terminates at cavoatrial junction
[2017-07-29 11:59] LABS: BASO # 0.1 K/uL (0.0-0.2); BASO % 0.4 % (0.0-2.0); EOS # 0.1 K/uL (0.0-0.7); EOS % 0.4 % (0.0-4.0); HEMATOCRIT 34.5 % (35.0-51.0); LYMPH # 5.6 K/uL (1.0-4.3); LYMPH % 36.3 % (20.0-40.0); MEAN CELL VOLUME 71.5 fL (80.0-94.0); MEAN CORPUSCULAR HEMOGLOBIN 22.1 pg (27.0-31.0); MEAN PLATELET VOLUME 8.1 fL (7.2-11.7); MONO # 1.4 K/uL (0.0-0.8); MONO % 9.1 % (0.0-10.0); RED CELL DISTRIBUTION WIDTH 19.7 % (11.5-14.5); WHITE BLOOD COUNT 15.3 K/uL (4.8-10.8)
[2017-07-29 12:13] LABS: ALB/GLOB RATIO 1.2 (1.0-2.1); ALKALINE PHOSPHATASE 74 U/L (38-126); ALT/SGPT 45 U/L (21-72); AST/SGOT 24 U/L (17-59); BILIRUBIN,TOTAL 0.6 mg/dL (0.2-1.3); BLOOD UREA NITROGEN 11 mg/dL (9-20); CALCIUM 8.3 mg/dl (8.6-10.4); CARBON DIOXIDE 25 mmol/L (22-30); CHLORIDE 103 mmol/L (98-107); GFR AFRICAN-AMERICAN > 60; GLUCOSE,RANDOM 79 mg/dL (75-110); POTASSIUM 3.9 mmol/L (3.6-5.2); SODIUM 139 mmol/L (132-148); TOTAL PROTEIN 6.9 g/dL (6.3-8.3)
--- NOTE | 2017-07-29 17:19 | CP.PCM.CON ---
History of Present Illness - History of Present Illness History of Present Illness: dictated Past Patient History - Infectious Disease Hx of Infectious Diseases: None - Past Medical History & Family History Past Medical History?: Yes - Past Social History Smoking Status: Never Smoked - CARDIAC Hx Cardiac Disorders: No - PULMONARY Hx Respiratory Disorders: No - NEUROLOGICAL Hx Neurological Disorder: No - HEENT Hx HEENT Problems: No - RENAL Hx Chronic Kidney Disease: No - ENDOCRINE/METABOLIC Hx Endocrine Disorders: No - HEMATOLOGICAL/ONCOLOGICAL Hx Blood Disorders: No - INTEGUMENTARY Hx Dermatological Problems: Yes Other/Comment: Perineal wound. Rectal abcess - MUSCULOSKELETAL/RHEUMATOLOGICAL Hx Falls: Yes - GASTROINTESTINAL Hx Crohn's Disease: Yes (COLOSTOMY 2016) - GENITOURINARY/GYNECOLOGICAL Hx Genitourinary Disorders: No - PSYCHIATRIC Hx Substance Use: No - SURGICAL HISTORY Hx Surgeries: Yes (SEE COMMENT) Other/Comment: LOOP COLOSTOMY. Perineal wound. COLON RESECTION - ANESTHESIA Hx Anesthesia: Yes Hx Anesthesia Reactions: No Hx Malignant Hyperthermia: No Meds Allergies/Adverse Reactions: Allergies Allergy/AdvReac Type Severity Reaction Status Date / Time morphine Allergy Severe ITCHING Verified 07/28/17 19:33 - Medications Medications: Current Medications Ascorbic Acid (Vitamin C 500 Mg Tab) 500 mg PO DAILY [facility] Last Admin: 07/29/17 10:07 Dose: 500 mg Cyanocobalamin (Vitamin B12 1000 Mcg Tab) 1,000 mcg PO DAILY [facility] Last Admin: 07/29/17 10:07 Dose: 1,000 mcg Diphenhydramine HCl (Benadryl) 25 mg IVP Q3H PRN PRN Reason: Itching / Pruritus Last Admin: 07/29/17 15:07 Dose: 25 mg Enoxaparin Sodium (Lovenox) 30 mg SC DAILY [facility] Last Admin: 07/29/17 10:06 Dose: 30 mg Escitalopram Oxalate (Lexapro) 5 mg PO DAILY [facility] Last Admin: 07/29/17 10:18 Dose: 5 mg Ferrous Sulfate (Feosol) 325 mg PO BID [facility] Last Admin: 07/29/17 10:07 Dose: 325 mg Hydromorphone HCl (Dilaudid) 2 mg IVP Q3H PRN PRN Reason: Pain, severe (8-10) Last Admin: 07/29/17 15:08 Dose: 2 mg Lactobacillus Acidophilus (Bacid Acidophilus) 1 cap PO BID [facility] Last Admin: 07/29/17 10:07 Dose: 1 cap Loperamide HCl (Imodium) 2 mg PO TID PRN PRN Reason: Diarrhea Mesalamine (Delzicol) 800 mg PO DAILY [facility] Last Admin: 07/29/17 10:06 Dose: 800 mg Multivitamins (Hexavitamin) 1 tab PO DAILY [facility] Last Admin: 07/29/17 10:07 Dose: 1 tab Pantoprazole Sodium (Protonix Ec Tab) 40 mg PO DAILY [facility] Last Admin: 07/29/17 10:07 Dose: 40 mg Sucralfate (Carafate Oral Susp) 1 gm PO QID [facility] Last Admin: 07/29/17 14:28 Dose: 1 gm Results - Vital Signs Recent Vital Signs: Last Vital Signs Temp 98.0 F 07/29/17 15:15 Pulse 78 07/29/17 15:15 Resp 20 07/29/17 15:15 BP 108/68 07/29/17 15:15 Pulse Ox 96 07/29/17 15:15 - Labs Result Diagrams: 07/29/17 11:43 07/29/17 11:43 Labs: Laboratory Results - last 24 hr 07/28/17 07/28/17 07/28/17 21:42 21:42 21:42 WBC 11.4 H D RBC 5.11 Hgb 11.5 L Hct 36.5 MCV 71.4 L MCH 22.5 L MCHC 31.5 L RDW 19.8 H Plt Count 345 MPV 8.1 Neut % (Auto) 67.6 Lymph % (Auto) 27.7 [place] % (Auto) 4.3 Eos % (Auto) 0.0 Baso % (Auto) 0.4 Neut # 7.7 H Lymph # 3.2 [place] # 0.5 Eos # 0.0 Baso # 0.0 Differential Comment PT 11.6 INR 1.0 APTT 21 Sodium 138 Potassium 4.7 Chloride 102 Carbon Dioxide 25 Anion Gap 16 BUN 14 Creatinine 0.6 L Est GFR ( Amer) > 60 Est GFR (Non-Af Amer) > 60 Random Glucose 107 Calcium 9.2 Total Bilirubin 0.5 AST 37 ALT 46 Alkaline Phosphatase 92 Troponin I < 0.0120 Total Protein 9.2 H Albumin 4.3 Globulin 4.9 H Albumin/Globulin Ratio 0.9 L Lipase 129 07/29/17 07/29/17 11:43 11:43 WBC 15.3 H RBC 4.82 Hgb 10.7 L Hct 34.5 L MCV 71.5 L MCH 22.1 L MCHC 31.0 L RDW 19.7 H Plt Count 345 MPV 8.1 Neut % (Auto) 53.8 Lymph % (Auto) 36.3 [place] % (Auto) 9.1 Eos % (Auto) 0.4 Baso % (Auto) 0.4 Neut # 8.3 H Lymph # 5.6 H [place] # 1.4 H Eos # 0.1 Baso # 0.1 Differential Comment PT INR APTT Sodium 139 Potassium 3.9 Chloride 103 Carbon Dioxide 25 Anion Gap 15 BUN 11 Creatinine 0.7 L Est GFR ( Amer) > 60 Est GFR (Non-Af Amer) > 60 Random Glucose 79 Calcium 8.3 L Total Bilirubin 0.6 AST 24 ALT 45 Alkaline Phosphatase 74 Troponin I Total Protein 6.9 Albumin 3.7 Globulin 3.1 Albumin/Globulin Ratio 1.2 Lipase
--- NOTE | 2017-07-29 19:42 | CP.PCM.HP ---
Past Patient History - Infectious Disease Hx of Infectious Diseases: None - Past Medical History & Family History Past Medical History?: Yes - Past Social History Smoking Status: Never Smoked - CARDIAC Hx Cardiac Disorders: No - PULMONARY Hx Respiratory Disorders: No - NEUROLOGICAL Hx Neurological Disorder: No - HEENT Hx HEENT Problems: No - RENAL Hx Chronic Kidney Disease: No - ENDOCRINE/METABOLIC Hx Endocrine Disorders: No - HEMATOLOGICAL/ONCOLOGICAL Hx Blood Disorders: No - INTEGUMENTARY Hx Dermatological Problems: Yes Other/Comment: Perineal wound. Rectal abcess - MUSCULOSKELETAL/RHEUMATOLOGICAL Hx Falls: Yes - GASTROINTESTINAL Hx Crohn's Disease: Yes (COLOSTOMY 2016) - GENITOURINARY/GYNECOLOGICAL Hx Genitourinary Disorders: No - PSYCHIATRIC Hx Substance Use: No - SURGICAL HISTORY Hx Surgeries: Yes (SEE COMMENT) Other/Comment: LOOP COLOSTOMY. Perineal wound. COLON RESECTION - ANESTHESIA Hx Anesthesia: Yes Hx Anesthesia Reactions: No Hx Malignant Hyperthermia: No Meds Allergies/Adverse Reactions: Allergies Allergy/AdvReac Type Severity Reaction Status Date / Time morphine Allergy Severe ITCHING Verified 07/28/17 19:33 Physical Exam - Constitutional Appears: Well - Head Exam Head Exam: ATRAUMATIC, NORMAL INSPECTION, NORMOCEPHALIC - Eye Exam Eye Exam: EOMI, Normal appearance, PERRL Pupil Exam: NORMAL ACCOMODATION, PERRL - ENT Exam ENT Exam: Mucous Membranes Moist, Normal Exam - Neck Exam Neck exam: Positive for: Normal Inspection - Respiratory Exam Respiratory Exam: Decreased Breath Sounds - Cardiovascular Exam Cardiovascular Exam: REGULAR RHYTHM, +S1, +S2 - GI/Abdominal Exam GI & Abdominal Exam: Diminished Bowel Sounds, Soft - Rectal Exam Rectal Exam: Deferred Results - Vital Signs Recent Vital Signs: Last Vital Signs Temp 98.0 F 07/29/17 15:15 Pulse 78 07/29/17 15:15 Resp 20 07/29/17 15:15 BP 108/68 07/29/17 15:15 Pulse Ox 96 07/29/17 15:15 - Labs Result Diagrams: 07/29/17 11:43 07/29/17 11:43 Labs: Laboratory Results - last 24 hr 07/28/17 07/28/17 07/28/17 21:42 21:42 21:42 WBC 11.4 H D RBC 5.11 Hgb 11.5 L Hct 36.5 MCV 71.4 L MCH 22.5 L MCHC 31.5 L RDW 19.8 H Plt Count 345 MPV 8.1 Neut % (Auto) 67.6 Lymph % (Auto) 27.7 [place] % (Auto) 4.3 Eos % (Auto) 0.0 Baso % (Auto) 0.4 Neut # 7.7 H Lymph # 3.2 [place] # 0.5 Eos # 0.0 Baso # 0.0 Differential Comment PT 11.6 INR 1.0 APTT 21 Sodium 138 Potassium 4.7 Chloride 102 Carbon Dioxide 25 Anion Gap 16 BUN 14 Creatinine 0.6 L Est GFR ( Amer) > 60 Est GFR (Non-Af Amer) > 60 Random Glucose 107 Calcium 9.2 Total Bilirubin 0.5 AST 37 ALT 46 Alkaline Phosphatase 92 Troponin I < 0.0120 Total Protein 9.2 H Albumin 4.3 Globulin 4.9 H Albumin/Globulin Ratio 0.9 L Lipase 129 07/29/17 07/29/17 11:43 11:43 WBC 15.3 H RBC 4.82 Hgb 10.7 L Hct 34.5 L MCV 71.5 L MCH 22.1 L MCHC 31.0 L RDW 19.7 H Plt Count 345 MPV 8.1 Neut % (Auto) 53.8 Lymph % (Auto) 36.3 [place] % (Auto) 9.1 Eos % (Auto) 0.4 Baso % (Auto) 0.4 Neut # 8.3 H Lymph # 5.6 H [place] # 1.4 H Eos # 0.1 Baso # 0.1 Differential Comment PT INR APTT Sodium 139 Potassium 3.9 Chloride 103 Carbon Dioxide 25 Anion Gap 15 BUN 11 Creatinine 0.7 L Est GFR ( Amer) > 60 Est GFR (Non-Af Amer) > 60 Random Glucose 79 Calcium 8.3 L Total Bilirubin 0.6 AST 24 ALT 45 Alkaline Phosphatase 74 Troponin I Total Protein 6.9 Albumin 3.7 Globulin 3.1 Albumin/Globulin Ratio 1.2 Lipase
[2017-07-29 20:56] LABS: RBC URINE < 1 /hpf (0-3); URINE BACTERIA RARE (<OCC); URINE BILIRUBIN NEGATIVE (NEGATIVE); URINE BLOOD NEGATIVE (NEGATIVE); URINE COLOR Straw (YELLOW); URINE GLUCOSE (UA) NORMAL (Normal); URINE KETONE NEGATIVE (NEGATIVE); URINE LEUKOCYTE ESTERASE NEG Leu/uL (Negative); URINE PROTEIN NEGATIVE (NEGATIVE); URINE UROBILINOGEN NORMAL mg/dL (0.2-1.0); WBC URINE 1 /hpf (0-5)
[2017-07-30] MEDS: DiphenhydrAMINE 50 mg/ml Inj IVP PRN ×8 (00:24→22:16)
--- NOTE | 2017-07-30 05:36 | CON ---
DATE: INFECTIOUS DISEASE CONSULT REQUESTED BY: Dr. Eric Barrett. HISTORY OF PRESENT ILLNESS: This patient is a 22-year-old male, he has history of Crohn disease for five years and he has had colostomy done and he presented with hematemesis. He has had EGD recently on 06/19/2017 at [facility], and they found erosive gastritis, but today he comes in with GI bleeding, GI is following. He also received Remicade yesterday. He states they had to prick him seven times and he recently was here and Port-A-Cath, which was removed as he had Staphylococcus epidermidis and pseudomonas bacteremia, and he states he has had multiple episodes of coffee-ground emesis. He also states that he has been passing stool from the rectum as he has colostomy, it should not be happening and he has had multiple I&D's of perianal abscesses recently on multiple admissions here. 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 Social history is negative for smoking, drug or alcohol abuse, but it seems like pain issues and pain management is difficult with this patient and we have to rule out dependency. He had a Port-A-Cath and we had to remove the Port-A-Cath as he had blood cultures positive recently and that was pseudomonas and coagulase-negative staph. He also had a urine culture positive, and so I am going to repeat blood cultures and urine culture now. He denies any fever. He changes his story; to me he states he has been having fevers and so I really wanted to see if he has fevers, then only I am going to start antibiotics, otherwise he may be stable. PHYSICAL EXAMINATION VITAL SIGNS: T-max is 98, blood pressure 108/61, respirations are 20, heart rate is 81. HEENT: Head is atraumatic, normocephalic. NECK: Supple. LUNGS: Clear. No crackles or rales present. Port-A-Cath site has healed well. ABDOMEN: He has a colostomy, which is working. No guarding, no rigidity present. He does have perianal wounds. EXTREMITIES: Have no edema, clubbing, or cyanosis. LABORATORY DATA: Labs are noted. Labs show white count was 11.4, now is 15.3, hemoglobin 10.5, hematocrit 34.4, platelets are 344 but neutrophils are 53.8 and lymphs are 36.3. His BUN is 11, creatinine 0.7, and so the white count may have gone up with the GI bleed. PLAN: At this time, we will get his procalcitonin level and lactate level tomorrow, and we will keep him on the fluids that they have started and his medications that he is on and the IV fluids. Santosh Daniel MD
[2017-07-30 07:25] LABS: BASO # 0.1 K/uL (0.0-0.2); BASO % 0.7 % (0.0-2.0); EOS # 0.3 K/uL (0.0-0.7); EOS % 2.3 % (0.0-4.0); HEMATOCRIT 36.2 % (35.0-51.0); LYMPH # 5.7 K/uL (1.0-4.3); LYMPH % 44.9 % (20.0-40.0); MEAN CELL VOLUME 71.7 fL (80.0-94.0); MEAN CORPUSCULAR HEMOGLOBIN 22.6 pg (27.0-31.0); MEAN CORPUSCULAR HGB CONC 31.6 g/dL (33.0-37.0); MEAN PLATELET VOLUME 8.4 fL (7.2-11.7); MONO % 7.9 % (0.0-10.0); NRBC % 0.1 % (0.0-2.0); RED CELL DISTRIBUTION WIDTH 19.5 % (11.5-14.5); WHITE BLOOD COUNT 12.7 K/uL (4.8-10.8)
[2017-07-30 08:16] LABS: ALB/GLOB RATIO 1.1 (1.0-2.1); ALKALINE PHOSPHATASE 88 U/L (38-126); ALT/SGPT 45 U/L (21-72); AST/SGOT 26 U/L (17-59); BILIRUBIN,TOTAL 0.5 mg/dL (0.2-1.3); BLOOD UREA NITROGEN 10 mg/dL (9-20); CALCIUM 9.7 mg/dl (8.6-10.4); CARBON DIOXIDE 33 mmol/L (22-30); CHLORIDE 97 mmol/L (98-107); GFR AFRICAN-AMERICAN > 60; GLUCOSE,RANDOM 84 mg/dL (75-110); POTASSIUM 3.8 mmol/L (3.6-5.2); SODIUM 138 mmol/L (132-148); TOTAL PROTEIN 7.1 g/dL (6.3-8.3)
--- NOTE | 2017-07-30 08:32 | CP.PCM.PN ---
<Arely Morales - Last Filed: 07/30/17 08:28> Subjective - Date & Time of Evaluation Date of Evaluation: 07/30/17 Time of Evaluation: 06:35 - Subjective Subjective: GI Fellow PGY4 Progress Note Pt seen and evaluated at bedside, pt denies any nausea or vomiting, no coffee ground emesis. No blood in colostomy bag. Pt with rectal bleeding from perianal wound. Pt requesting regular diet. ROS: A 12 ROS was negative except as above. Objective - Vital Signs/Intake and Output Vital Signs (last 24 hours): Temp Pulse Resp BP Pulse Ox 97.7 F 78 18 114/80 98 07/30/17 08:00 07/30/17 08:00 07/30/17 08:00 07/30/17 08:00 07/30/17 08:00 Intake and Output: 07/30/17 07/30/17 06:59 18:59 Intake Total 0 Balance 0 - Medications Medications: Current Medications Ascorbic Acid (Vitamin C 500 Mg Tab) 500 mg PO DAILY [facility] Last Admin: 07/29/17 10:07 Dose: 500 mg Cyanocobalamin (Vitamin B12 1000 Mcg Tab) 1,000 mcg PO DAILY [facility] Last Admin: 07/29/17 10:07 Dose: 1,000 mcg Diphenhydramine HCl (Benadryl) 25 mg IVP Q3H PRN PRN Reason: Itching / Pruritus Last Admin: 07/30/17 06:40 Dose: 25 mg Enoxaparin Sodium (Lovenox) 30 mg SC DAILY [facility] Last Admin: 07/29/17 10:06 Dose: 30 mg Escitalopram Oxalate (Lexapro) 5 mg PO DAILY [facility] Last Admin: 07/29/17 10:18 Dose: 5 mg Ferrous Sulfate (Feosol) 325 mg PO BID [facility] Last Admin: 07/29/17 18:07 Dose: 325 mg Hydromorphone HCl (Dilaudid) 2 mg IVP Q3H PRN PRN Reason: Pain, severe (8-10) Last Admin: 07/30/17 06:41 Dose: 2 mg Lactobacillus Acidophilus (Bacid Acidophilus) 1 cap PO BID [facility] Last Admin: 07/29/17 18:00 Dose: 1 cap Loperamide HCl (Imodium) 2 mg PO TID PRN PRN Reason: Diarrhea Mesalamine (Delzicol) 800 mg PO DAILY [facility] Last Admin: 07/29/17 10:06 Dose: 800 mg Multivitamins (Hexavitamin) 1 tab PO DAILY [facility] Last Admin: 07/29/17 10:07 Dose: 1 tab Pantoprazole Sodium (Protonix Ec Tab) 40 mg PO DAILY [facility] Last Admin: 07/29/17 10:07 Dose: 40 mg Sucralfate (Carafate Oral Susp) 1 gm PO QID [facility] Last Admin: 07/29/17 21:26 Dose: 1 gm - Labs Labs: 07/30/17 07:07 07/30/17 07:07 PT 11.6 SECONDS (9.7-12.2) 07/28/17 21:42 INR 1.0 07/28/17 21:42 APTT 21 SECONDS (21-34) 07/28/17 21:42 - Constitutional Appears: Non-toxic, No Acute Distress - Head Exam Head Exam: ATRAUMATIC, NORMAL INSPECTION, NORMOCEPHALIC - Eye Exam Eye Exam: EOMI, Normal appearance, PERRL - ENT Exam ENT Exam: Mucous Membranes Dry, Mucous Membranes Moist, Normal Exam - Neck Exam Neck Exam: Full ROM - Respiratory Exam Respiratory Exam: Clear to Ausculation Bilateral, NORMAL BREATHING PATTERN - Cardiovascular Exam Cardiovascular Exam: REGULAR RHYTHM - GI/Abdominal Exam GI & Abdominal Exam: Soft, Normal Bowel Sounds. absent: Distended, Tenderness, Organomegaly Additional comments: colostomy with solid brown stool - Rectal Exam Rectal Exam: Deferred - Extremities Exam Extremities Exam: Full ROM, Normal Inspection - Back Exam Back Exam: NORMAL INSPECTION - Neurological Exam Neurological Exam: Alert, Awake, Oriented x3 - Psychiatric Exam Psychiatric exam: Normal Affect, Normal Mood - Skin Skin Exam: Dry, Intact, Normal Color, Warm Assessment and Plan - Assessment and Plan (Free Text) Assessment: This is a 22yM with a hx of Crohn's Disease presenting with hematemesis. 1. Hematemesis-resolved 2. Crohn's Disease 3. Perianal abscess s/p multiple I&Ds 4. Hx of Bacteremia from infected portacath 5. Erosive gastritis Plan: -Pt with no further active GI bleeding, no hematemesis, melena, hematochezia -Colostomy bag with solid brown stool -Hgb stable, continue to monitor, hemodynamically stable -Advance to regular diet and see if pt tolerates -No plan for emergent endoscopy at this time -Recent EGD 06/19/17 with erosive gastritis/esophagitis, no PUD -Order PPI BID, carafate -Recommend follow up with his primary GI doctor -Please call with any questions or concerns <Campos Lopez - Last Filed: 07/30/17 13:26> Objective - Vital Signs/Intake and Output Vital Signs (last 24 hours): Temp Pulse Resp BP Pulse Ox 97.7 F 98 H 18 114/80 98 07/30/17 08:00 07/30/17 12:57 07/30/17 08:00 07/30/17 08:00 07/30/17 08:00 Intake and Output: 07/30/17 07/30/17 06:59 18:59 Intake Total 0 Balance 0 - Medications Medications: Current Medications Ascorbic Acid (Vitamin C 500 Mg Tab) 500 mg PO DAILY [facility] Last Admin: 07/30/17 09:49 Dose: 500 mg Cyanocobalamin (Vitamin B12 1000 Mcg Tab) 1,000 mcg PO DAILY [facility] Last Admin: 07/30/17 09:50 Dose: 1,000 mcg Diphenhydramine HCl (Benadryl) 25 mg IVP Q3H PRN PRN Reason: Itching / Pruritus Last Admin: 07/30/17 13:13 Dose: 25 mg Enoxaparin Sodium (Lovenox) 30 mg SC DAILY [facility] Last Admin: 07/30/17 09:50 Dose: 30 mg Escitalopram Oxalate (Lexapro) 5 mg PO DAILY [facility] Last Admin: 07/30/17 09:49 Dose: 5 mg Ferrous Sulfate (Feosol) 325 mg PO BID [facility] Last Admin: 07/30/17 09:49 Dose: 325 mg Hydromorphone HCl (Dilaudid) 2 mg IVP Q3H PRN PRN Reason: Pain, severe (8-10) Last Admin: 07/30/17 13:12 Dose: 2 mg Lactobacillus Acidophilus (Bacid Acidophilus) 1 cap PO BID [facility] Last Admin: 07/30/17 09:49 Dose: 1 cap Loperamide HCl (Imodium) 2 mg PO TID PRN PRN Reason: Diarrhea Mesalamine (Delzicol) 800 mg PO DAILY [facility] Last Admin: 07/30/17 09:50 Dose: 800 mg Multivitamins (Hexavitamin) 1 tab PO DAILY [facility] Last Admin: 07/30/17 09:50 Dose: 1 tab Pantoprazole Sodium (Protonix Ec Tab) 40 mg PO DAILY [facility] Last Admin: 07/30/17 09:49 Dose: 40 mg Sucralfate (Carafate Oral Susp) 1 gm PO QID [facility] Last Admin: 07/30/17 13:13 Dose: 1 gm - Labs Labs: 07/30/17 07:07 07/30/17 07:07 PT 11.6 SECONDS (9.7-12.2) 07/28/17 21:42 INR 1.0 07/28/17 21:42 APTT 21 SECONDS (21-34) 07/28/17 21:42 Attending/Attestation - Attestation I have personally seen and examined this patient.: Yes I have fully participated in the care of the patient.: Yes I have reviewed all pertinent clinical information, including history, physical exam and plan: Yes Notes (Text): 07/30/17 13:21 I have seen and examined patient with GI fellow. No acute events overnight, he denies abdominal pain, nausea, vomiting, fever/chills. He does report some bleeding from rectal wound site. He is hungry and asking for diet to be advanced. Review of vitals from today are normal. Crohn's disease complicated by perianal disease and recurrent abscesses, currently on biologic therapy s/p colostomy Hematemesis - resolved. Presence of yellow formed stool in colostomy bag. - Advance diet as tolerated - H/H stable, continue to monitor - Continue with PPI therapy, patient with recent EGD showing erosive esophagitis - Would avoid PO iron supplementation in this patient with inflammatory bowel disease, suggest IV replacement as an alternative - Anti-emetic therapy PRN - No planned GI interventions, will sign off case. Following hospital discharge , patient should follow up with primary GI physician and surgical teams. Please reconsult as necessary, thank you.
[2017-07-30] MEDS: Pantoprazole 40 mg EC Tab PO SCH (09:49)
[2017-07-30] MEDS: Lactobacillus Acidophilus 500 MU Cap PO SCH ×2 (09:49→17:51)
[2017-07-30] MEDS: Sucralfate 1 gm/10 ml Oral Susp UD PO SCH ×4 (09:49→21:44)
[2017-07-30] MEDS: Enoxaparin 30 mg Syringe SC SCH (09:50)
[2017-07-30] MEDS: Multiple Vitamins Tab PO SCH (09:50)
--- NOTE | 2017-07-30 16:47 | CP.PCM.PN ---
Subjective - Date & Time of Evaluation Date of Evaluation: 07/30/17 Time of Evaluation: 04:15 - Subjective Subjective: dictated Objective - Vital Signs/Intake and Output Vital Signs (last 24 hours): Temp Pulse Resp BP Pulse Ox 98.2 F 102 H 18 115/76 98 07/30/17 16:42 07/30/17 16:42 07/30/17 16:42 07/30/17 16:42 07/30/17 16:42 Intake and Output: 07/30/17 07/30/17 06:59 18:59 Intake Total 0 960 Balance 0 960 - Medications Medications: Current Medications Ascorbic Acid (Vitamin C 500 Mg Tab) 500 mg PO DAILY [facility] Last Admin: 07/30/17 09:49 Dose: 500 mg Cyanocobalamin (Vitamin B12 1000 Mcg Tab) 1,000 mcg PO DAILY [facility] Last Admin: 07/30/17 09:50 Dose: 1,000 mcg Diphenhydramine HCl (Benadryl) 25 mg IVP Q3H PRN PRN Reason: Itching / Pruritus Last Admin: 07/30/17 16:08 Dose: 25 mg Enoxaparin Sodium (Lovenox) 30 mg SC DAILY [facility] Last Admin: 07/30/17 09:50 Dose: 30 mg Escitalopram Oxalate (Lexapro) 5 mg PO DAILY [facility] Last Admin: 07/30/17 09:49 Dose: 5 mg Ferrous Sulfate (Feosol) 325 mg PO BID [facility] Last Admin: 07/30/17 09:49 Dose: 325 mg Hydromorphone HCl (Dilaudid) 2 mg IVP Q3H PRN PRN Reason: Pain, severe (8-10) Last Admin: 07/30/17 16:09 Dose: 2 mg Lactobacillus Acidophilus (Bacid Acidophilus) 1 cap PO BID [facility] Last Admin: 07/30/17 09:49 Dose: 1 cap Loperamide HCl (Imodium) 2 mg PO TID PRN PRN Reason: Diarrhea Mesalamine (Delzicol) 800 mg PO DAILY [facility] Last Admin: 07/30/17 09:50 Dose: 800 mg Multivitamins (Hexavitamin) 1 tab PO DAILY [facility] Last Admin: 07/30/17 09:50 Dose: 1 tab Pantoprazole Sodium (Protonix Ec Tab) 40 mg PO DAILY [facility] Last Admin: 07/30/17 09:49 Dose: 40 mg Sucralfate (Carafate Oral Susp) 1 gm PO QID [facility] Last Admin: 07/30/17 13:13 Dose: 1 gm - Labs Labs: 07/30/17 07:07 07/30/17 07:07 PT 11.6 SECONDS (9.7-12.2) 07/28/17 21:42 INR 1.0 07/28/17 21:42 APTT 21 SECONDS (21-34) 07/28/17 21:42
[2017-07-30] MEDS: Vancomycin 1 gm/NS 200 ml 1 GM/200 ML BAG IVPB SCH (17:54)
[2017-07-30] MEDS: Meropenem 1 GM in Sodium Chloride 0.9% 100 ML IVPB SCH ×2 (18:29→21:44)
--- NOTE | 2017-07-30 18:40 | CP.PCM.PN ---
Subjective - Date & Time of Evaluation Date of Evaluation: 07/30/17 Time of Evaluation: 14:00 - Subjective Subjective: clinically same Objective - Vital Signs/Intake and Output Vital Signs (last 24 hours): Temp Pulse Resp BP Pulse Ox 98.2 F 102 H 18 115/76 98 07/30/17 16:42 07/30/17 16:42 07/30/17 16:42 07/30/17 16:42 07/30/17 16:42 Intake and Output: 07/30/17 07/30/17 06:59 18:59 Intake Total 0 960 Balance 0 960 - Medications Medications: Current Medications Ascorbic Acid (Vitamin C 500 Mg Tab) 500 mg PO DAILY [facility] Last Admin: 07/30/17 09:49 Dose: 500 mg Cyanocobalamin (Vitamin B12 1000 Mcg Tab) 1,000 mcg PO DAILY [facility] Last Admin: 07/30/17 09:50 Dose: 1,000 mcg Diphenhydramine HCl (Benadryl) 25 mg IVP Q3H PRN PRN Reason: Itching / Pruritus Last Admin: 07/30/17 16:08 Dose: 25 mg Enoxaparin Sodium (Lovenox) 30 mg SC DAILY [facility] Last Admin: 07/30/17 09:50 Dose: 30 mg Escitalopram Oxalate (Lexapro) 5 mg PO DAILY [facility] Last Admin: 07/30/17 09:49 Dose: 5 mg Ferrous Sulfate (Feosol) 325 mg PO BID [facility] Last Admin: 07/30/17 17:51 Dose: 325 mg Hydromorphone HCl (Dilaudid) 2 mg IVP Q3H PRN PRN Reason: Pain, severe (8-10) Last Admin: 07/30/17 16:09 Dose: 2 mg Vancomycin/Sodium Chloride (Vancomycin 1 Gm/Ns 200 Ml) 1 gm in 200 mls @ 166.6 mls/hr IVPB Q12H [facility] Stop: 08/04/17 17:01 Last Admin: 07/30/17 17:54 Dose: 166.6 mls/hr Meropenem 1 gm/ Sodium (Chloride) 100 mls @ 100 mls/hr IVPB Q8 [facility] Last Admin: 07/30/17 18:29 Dose: 100 mls/hr Lactobacillus Acidophilus (Bacid Acidophilus) 1 cap PO BID [facility] Last Admin: 07/30/17 17:51 Dose: 1 cap Loperamide HCl (Imodium) 2 mg PO TID PRN PRN Reason: Diarrhea Mesalamine (Delzicol) 800 mg PO DAILY [facility] Last Admin: 07/30/17 09:50 Dose: 800 mg Multivitamins (Hexavitamin) 1 tab PO DAILY [facility] Last Admin: 07/30/17 09:50 Dose: 1 tab Mupirocin (Bactroban Ointment) 0 gm TOP BID [facility] Last Admin: 07/30/17 18:29 Dose: 1 appl Pantoprazole Sodium (Protonix Ec Tab) 40 mg PO DAILY [facility] Last Admin: 07/30/17 09:49 Dose: 40 mg Sucralfate (Carafate Oral Susp) 1 gm PO QID [facility] Last Admin: 07/30/17 17:51 Dose: 1 gm - Labs Labs: 07/30/17 07:07 07/30/17 07:07 PT 11.6 SECONDS (9.7-12.2) 07/28/17 21:42 INR 1.0 07/28/17 21:42 APTT 21 SECONDS (21-34) 07/28/17 21:42 - Constitutional Appears: Well - Head Exam Head Exam: ATRAUMATIC, NORMAL INSPECTION, NORMOCEPHALIC - Eye Exam Eye Exam: EOMI, Normal appearance, PERRL Pupil Exam: NORMAL ACCOMODATION, PERRL - ENT Exam ENT Exam: Mucous Membranes Moist, Normal Exam - Neck Exam Neck Exam: Full ROM, Normal Inspection. absent: Lymphadenopathy - Respiratory Exam Respiratory Exam: Decreased Breath Sounds - Cardiovascular Exam Cardiovascular Exam: REGULAR RHYTHM, +S1, +S2 - GI/Abdominal Exam GI & Abdominal Exam: Soft, Diminished Bowel Sounds - Rectal Exam Rectal Exam: Deferred
[2017-07-31] MEDS: DiphenhydrAMINE 50 mg/ml Inj IVP PRN ×8 (01:24→23:39)
[2017-07-31] MEDS: Vancomycin 1 gm/NS 200 ml 1 GM/200 ML BAG IVPB SCH ×2 (04:34→17:42)
[2017-07-31] MEDS: Meropenem 1 GM in Sodium Chloride 0.9% 100 ML IVPB SCH ×3 (06:22→21:03)
[2017-07-31] MEDS: Enoxaparin 30 mg Syringe SC SCH (10:02)
[2017-07-31] MEDS: Lactobacillus Acidophilus 500 MU Cap PO SCH ×2 (10:03→17:35)
[2017-07-31] MEDS: Multiple Vitamins Tab PO SCH (10:03)
[2017-07-31] MEDS: Pantoprazole 40 mg EC Tab PO SCH (10:03)
[2017-07-31] MEDS: Sucralfate 1 gm/10 ml Oral Susp UD PO SCH ×4 (10:26→21:13)
--- NOTE | 2017-07-31 12:00 | CARD ---
APPROVED REPORT EKG Measurement Heart [id number] <Conclusion> Sinus tachycardia Otherwise normal ECG
--- NOTE | 2017-07-31 12:47 | PN ---
DATE: SUBJECTIVE: The patient was seen today. He still complains of many problems and he was having lot of pain in his ulcerations, so I decided to see them with the nurse as my escort. PHYSICAL EXAMINATION VITAL SIGNS: T-max is 98.2, blood pressure 115/76, heart rate of 102, respirations are 18. He is on pain medications. GI has signed off and they are not going to do any GI workup as they have done the endoscopy recently. LUNGS: Clear. HEART: S1, S2, tachycardic. ABDOMEN: Soft, nontender. He has stool in the colostomy bag. He does have open wounds which are extending from the back between the buttocks to the perianal area and it is painful and there is some purulent discharge also noted and he was in a lot of pain. LABORATORY DATA: So at this time, labs were also noted. His white count remains 12.7. ASSESSMENT AND PLAN: Wound culture was pending and it is growing Gram-negative rods, so at this time, I decided to start on IV antibiotics. He is on vancomycin and Merrem, which was just started today. He recently finished antibiotics, but the excoriations are so bad and with pus and may be blood from there, so he needs to get them. Santosh Daniel MD
--- NOTE | 2017-07-31 15:53 | CP.PCM.PN ---
Subjective - Date & Time of Evaluation Date of Evaluation: 07/31/17 Time of Evaluation: 15:50 - Subjective Subjective: PGY-[address] Barrett's service: Pt seen and examined at bedside. Nursing reports no episodes of vomiting overnight. Patient admits occasional nausea, but denies repeat vomiting. He is tolerating regular diet without difficulty. Patient frustrated at continued hospital visits and perpetual abscesses. He denies fever, chills, chest pain. Objective - Vital Signs/Intake and Output Vital Signs (last 24 hours): Temp Pulse Resp BP Pulse Ox 98 F 87 20 108/65 98 07/31/17 08:14 07/31/17 08:14 07/31/17 08:14 07/31/17 08:14 07/31/17 08:14 Intake and Output: 07/31/17 07/31/17 06:59 18:59 Intake Total 300 Balance 300 - Medications Medications: Current Medications Ascorbic Acid (Vitamin C 500 Mg Tab) 500 mg PO DAILY [facility] Last Admin: 07/31/17 10:03 Dose: 500 mg Cyanocobalamin (Vitamin B12 1000 Mcg Tab) 1,000 mcg PO DAILY [facility] Last Admin: 07/31/17 10:03 Dose: 1,000 mcg Diphenhydramine HCl (Benadryl) 25 mg IVP Q3H PRN PRN Reason: Itching / Pruritus Last Admin: 07/31/17 14:24 Dose: 25 mg Enoxaparin Sodium (Lovenox) 30 mg SC DAILY [facility] Last Admin: 07/31/17 10:02 Dose: 30 mg Escitalopram Oxalate (Lexapro) 5 mg PO DAILY [facility] Last Admin: 07/31/17 10:03 Dose: 5 mg Ferrous Sulfate (Feosol) 325 mg PO BID [facility] Last Admin: 07/31/17 10:02 Dose: 325 mg Hydromorphone HCl (Dilaudid) 2 mg IVP Q3H PRN PRN Reason: Pain, severe (8-10) Last Admin: 07/31/17 14:25 Dose: 2 mg Vancomycin/Sodium Chloride (Vancomycin 1 Gm/Ns 200 Ml) 1 gm in 200 mls @ 166.6 mls/hr IVPB Q12H [facility] Stop: 08/04/17 17:01 Last Admin: 07/31/17 04:34 Dose: 166.6 mls/hr Meropenem 1 gm/ Sodium (Chloride) 100 mls @ 100 mls/hr IVPB Q8 [facility] Last Admin: 07/31/17 14:40 Dose: 100 mls/hr Lactobacillus Acidophilus (Bacid Acidophilus) 1 cap PO BID [facility] Last Admin: 07/31/17 10:03 Dose: 1 cap Loperamide HCl (Imodium) 2 mg PO TID PRN PRN Reason: Diarrhea Mesalamine (Delzicol) 800 mg PO DAILY [facility] Last Admin: 07/31/17 10:05 Dose: 800 mg Multivitamins (Hexavitamin) 1 tab PO DAILY [facility] Last Admin: 07/31/17 10:03 Dose: 1 tab Mupirocin (Bactroban Ointment) 0 gm TOP BID [facility] Last Admin: 07/31/17 10:26 Dose: Not Given Pantoprazole Sodium (Protonix Ec Tab) 40 mg PO DAILY [facility] Last Admin: 07/31/17 10:03 Dose: 40 mg Sucralfate (Carafate Oral Susp) 1 gm PO QID [facility] Last Admin: 07/31/17 14:40 Dose: 1 gm - Labs Labs: 07/30/17 07:07 07/30/17 07:07 PT 11.6 SECONDS (9.7-12.2) 07/28/17 21:42 INR 1.0 07/28/17 21:42 APTT 21 SECONDS (21-34) 07/28/17 21:42 - Constitutional Appears: Non-toxic, No Acute Distress - Head Exam Head Exam: ATRAUMATIC, NORMAL INSPECTION - Eye Exam Eye Exam: EOMI, Normal appearance. absent: Scleral icterus Pupil Exam: PERRL - ENT Exam ENT Exam: Mucous Membranes Moist - Neck Exam Neck Exam: Full ROM - Respiratory Exam Respiratory Exam: Clear to Ausculation Bilateral, NORMAL BREATHING PATTERN - Cardiovascular Exam Cardiovascular Exam: REGULAR RHYTHM, +S1, +S2 - GI/Abdominal Exam GI & Abdominal Exam: Soft, Normal Bowel Sounds. absent: Tenderness Additional comments: Colostomy bag with yellow/brown stool; no blood appreciated - Rectal Exam Additional comments: Open excoriated wounds in perianal area/between buttocks - mild bleeding noted from wounds, no pus appreciated - Extremities Exam Extremities Exam: Normal Inspection - Neurological Exam Neurological Exam: Alert, Awake, Oriented x3 - Psychiatric Exam Psychiatric exam: Normal Affect, Normal Mood - Skin Skin Exam: Normal Color, Warm Assessment and Plan - Assessment and Plan (Free Text) Plan: Hematemesis - Resolved Admission to Tele No episodes since admission Hgb stable, no blood seen in colostomy bag Dr. Lopez consulted, help appreciated - Carafate 1gm PO QID [facility] - recent endoscopy showing erosive esophagitis - avoid PO iron, use IV - signed off Rectal Wound Afebrile, WBC downtrending Long history of abscesses in this area ID consult, Dr. Daniel, help appreciated - Merrem 1gm IV q8H (Day 2) - Vanco 1gm IV Q12H (day 2) Surgical consult, Dr. Taylor - f/u reccs Wound culture (Back): E. coli - Prior admission Culture: Wound cultures (05/21/17): Pseudomonas aeruginosa, Citrobacter freundii, Staph aureus Blood cultures: no growth x 48 hrs x 2 Urine Culture: No growth Wound care nurse consult, help appreciated - f/u reccs Crohn's Disease Loop Colostomy (2015) Complicated by persistent abscesses Home med Delzicol 800mg PO Daily Loperamide 2mg PO TID PRN Vitamin C 500mg PO Daily Dilaudid 2mg IV Q3H PRN for Pain History of anemia Hgb stable, 10.7 today - D/C Feosol 325mg PO BID per GI Anxiety Lexapro 5mg PO Daily Prophylaxis Protonix 40mg PO daily Lovenox 30mg SC Daily SCDs Lactobacillus 1 cap PO BID Regular diet Shahriar Celis PGY-[address] Barrett
--- NOTE | 2017-07-31 19:32 | CP.PCM.PN ---
Subjective - Date & Time of Evaluation Date of Evaluation: 07/31/17 Time of Evaluation: 11:20 - Subjective Subjective: clinically same Objective - Vital Signs/Intake and Output Vital Signs (last 24 hours): Temp Pulse Resp BP Pulse Ox 98.0 F 105 H 20 122/82 99 07/31/17 16:00 07/31/17 16:00 07/31/17 16:00 07/31/17 16:00 07/31/17 16:00 - Medications Medications: Current Medications Ascorbic Acid (Vitamin C 500 Mg Tab) 500 mg PO DAILY [facility] Last Admin: 07/31/17 10:03 Dose: 500 mg Cyanocobalamin (Vitamin B12 1000 Mcg Tab) 1,000 mcg PO DAILY [facility] Last Admin: 07/31/17 10:03 Dose: 1,000 mcg Diphenhydramine HCl (Benadryl) 25 mg IVP Q3H PRN PRN Reason: Itching / Pruritus Last Admin: 07/31/17 17:35 Dose: 25 mg Enoxaparin Sodium (Lovenox) 30 mg SC DAILY [facility] Last Admin: 07/31/17 10:02 Dose: 30 mg Escitalopram Oxalate (Lexapro) 5 mg PO DAILY [facility] Last Admin: 07/31/17 10:03 Dose: 5 mg Ferrous Sulfate (Feosol) 325 mg PO BID [facility] Last Admin: 07/31/17 10:02 Dose: 325 mg Hydromorphone HCl (Dilaudid) 2 mg IVP Q3H PRN PRN Reason: Pain, severe (8-10) Last Admin: 07/31/17 17:34 Dose: 2 mg Vancomycin/Sodium Chloride (Vancomycin 1 Gm/Ns 200 Ml) 1 gm in 200 mls @ 166.6 mls/hr IVPB Q12H [facility] Stop: 08/04/17 17:01 Last Admin: 07/31/17 17:42 Dose: 166.6 mls/hr Meropenem 1 gm/ Sodium (Chloride) 100 mls @ 100 mls/hr IVPB Q8 [facility] Last Admin: 07/31/17 14:40 Dose: 100 mls/hr Lactobacillus Acidophilus (Bacid Acidophilus) 1 cap PO BID [facility] Last Admin: 07/31/17 17:35 Dose: 1 cap Loperamide HCl (Imodium) 2 mg PO TID PRN PRN Reason: Diarrhea Mesalamine (Delzicol) 800 mg PO DAILY [facility] Last Admin: 07/31/17 10:05 Dose: 800 mg Multivitamins (Hexavitamin) 1 tab PO DAILY [facility] Last Admin: 07/31/17 10:03 Dose: 1 tab Mupirocin (Bactroban Ointment) 0 gm TOP BID [facility] Last Admin: 07/31/17 10:26 Dose: Not Given Pantoprazole Sodium (Protonix Ec Tab) 40 mg PO DAILY [facility] Last Admin: 07/31/17 10:03 Dose: 40 mg Sucralfate (Carafate Oral Susp) 1 gm PO QID [facility] Last Admin: 07/31/17 17:35 Dose: 1 gm - Labs Labs: 07/30/17 07:07 07/30/17 07:07 PT 11.6 SECONDS (9.7-12.2) 07/28/17 21:42 INR 1.0 07/28/17 21:42 APTT 21 SECONDS (21-34) 07/28/17 21:42 - Constitutional Appears: Well - Head Exam Head Exam: ATRAUMATIC, NORMAL INSPECTION, NORMOCEPHALIC - Eye Exam Eye Exam: EOMI, Normal appearance, PERRL Pupil Exam: NORMAL ACCOMODATION, PERRL - ENT Exam ENT Exam: Mucous Membranes Moist, Normal Exam - Neck Exam Neck Exam: Full ROM, Normal Inspection. absent: Lymphadenopathy - Respiratory Exam Respiratory Exam: Decreased Breath Sounds - Cardiovascular Exam Cardiovascular Exam: REGULAR RHYTHM, +S1, +S2 - GI/Abdominal Exam GI & Abdominal Exam: Soft, Diminished Bowel Sounds - Rectal Exam Rectal Exam: Deferred
--- NOTE | 2017-07-31 22:15 | CP.PCM.PN ---
Subjective - Date & Time of Evaluation Date of Evaluation: 07/31/17 Time of Evaluation: 03:15 - Subjective Subjective: dictated Objective - Vital Signs/Intake and Output Vital Signs (last 24 hours): Temp Pulse Resp BP Pulse Ox 98.0 F 105 H 20 122/82 99 07/31/17 16:00 07/31/17 16:00 07/31/17 16:00 07/31/17 16:00 07/31/17 16:00 - Medications Medications: Current Medications Ascorbic Acid (Vitamin C 500 Mg Tab) 500 mg PO DAILY [facility] Last Admin: 07/31/17 10:03 Dose: 500 mg Cyanocobalamin (Vitamin B12 1000 Mcg Tab) 1,000 mcg PO DAILY [facility] Last Admin: 07/31/17 10:03 Dose: 1,000 mcg Diphenhydramine HCl (Benadryl) 25 mg IVP Q3H PRN PRN Reason: Itching / Pruritus Last Admin: 07/31/17 20:34 Dose: 25 mg Enoxaparin Sodium (Lovenox) 30 mg SC DAILY [facility] Last Admin: 07/31/17 10:02 Dose: 30 mg Escitalopram Oxalate (Lexapro) 5 mg PO DAILY [facility] Last Admin: 07/31/17 10:03 Dose: 5 mg Ferrous Sulfate (Feosol) 325 mg PO BID [facility] Last Admin: 07/31/17 10:02 Dose: 325 mg Hydromorphone HCl (Dilaudid) 2 mg IVP Q3H PRN PRN Reason: Pain, severe (8-10) Last Admin: 07/31/17 20:34 Dose: 2 mg Vancomycin/Sodium Chloride (Vancomycin 1 Gm/Ns 200 Ml) 1 gm in 200 mls @ 166.6 mls/hr IVPB Q12H [facility] Stop: 08/04/17 17:01 Last Admin: 07/31/17 17:42 Dose: 166.6 mls/hr Meropenem 1 gm/ Sodium (Chloride) 100 mls @ 100 mls/hr IVPB Q8 [facility] Last Admin: 07/31/17 21:03 Dose: 100 mls/hr Lactobacillus Acidophilus (Bacid Acidophilus) 1 cap PO BID [facility] Last Admin: 07/31/17 17:35 Dose: 1 cap Loperamide HCl (Imodium) 2 mg PO TID PRN PRN Reason: Diarrhea Mesalamine (Delzicol) 800 mg PO DAILY [facility] Last Admin: 07/31/17 10:05 Dose: 800 mg Multivitamins (Hexavitamin) 1 tab PO DAILY [facility] Last Admin: 07/31/17 10:03 Dose: 1 tab Mupirocin (Bactroban Ointment) 0 gm TOP BID [facility] Last Admin: 07/31/17 20:37 Dose: 1 appl Pantoprazole Sodium (Protonix Ec Tab) 40 mg PO DAILY [facility] Last Admin: 07/31/17 10:03 Dose: 40 mg Sucralfate (Carafate Oral Susp) 1 gm PO QID [facility] Last Admin: 07/31/17 21:13 Dose: 1 gm - Labs Labs: 07/30/17 07:07 07/30/17 07:07 PT 11.6 SECONDS (9.7-12.2) 07/28/17 21:42 INR 1.0 07/28/17 21:42 APTT 21 SECONDS (21-34) 07/28/17 21:42
[2017-08-01] MEDS: DiphenhydrAMINE 50 mg/ml Inj IVP PRN ×7 (02:50→21:07)
--- NOTE | 2017-08-01 03:01 | PN ---
DATE: SUBJECTIVE: The patient is complaining of lot of burning pain on areas of open wound and he remains, however, afebrile. PHYSICAL EXAMINATION VITAL SIGNS: Heart rate is 105, blood pressure 122/82, respirations are 20. LUNGS: Clear. HEART: S1, S2 is tachycardic. ABDOMEN: Remains soft with colostomy. EXTREMITIES: Have no edema, but he has a lot of open wounds. MEDICATIONS: He is on Lovenox and he is on vitamin C, B12, Benadryl, Lexapro, Feosol, Dilaudid, Bacid, Imodium p.r.n., meropenem, and he is on his medicines mesalamine, hexavitamin, mupirocin, Protonix and Carafate. Today, his wound culture came back positive for E. Coli. It is not even finalized yet, so I will continue the antibiotics at this time as there were some pus seen yesterday. He is being followed by Dr. Taylor and we will continue IV antibiotics at this time and monitor him and see if the wounds improve with IV antibiotics as he has severe excoriation of the skin between between the buttocks extending to the perineum and is in pain secondary to those. He does say that he passes stool from the anus; however, he had a colostomy more than a year ago, also I am thinking if he has fistula; it is unclear to me. Santosh Daniel MD
[2017-08-01] MEDS: Vancomycin 1 gm/NS 200 ml 1 GM/200 ML BAG IVPB SCH ×2 (05:36→16:56)
[2017-08-01] MEDS: HYDROmorphone 1 mg/ml ISec IVP PRN ×6 (05:50→21:08)
[2017-08-01] MEDS: Meropenem 1 GM in Sodium Chloride 0.9% 100 ML IVPB SCH ×3 (06:48→21:07)
[2017-08-01 08:32] LABS: BASO # 0.1 K/uL (0.0-0.2); BASO % 0.6 % (0.0-2.0); EOS # 0.9 K/uL (0.0-0.7); EOS % 9.7 % (0.0-4.0); HEMATOCRIT 39.4 % (35.0-51.0); LYMPH # 4.4 K/uL (1.0-4.3); MEAN CORPUSCULAR HEMOGLOBIN 22.4 pg (27.0-31.0); MEAN CORPUSCULAR HGB CONC 31.6 g/dL (33.0-37.0); MONO # 0.5 K/uL (0.0-0.8); MONO % 5.5 % (0.0-10.0); NRBC % 0.1 % (0.0-2.0); WHITE BLOOD COUNT 9.5 K/uL (4.8-10.8)
[2017-08-01 08:48] LABS: ALB/GLOB RATIO 1.1 (1.0-2.1); ALKALINE PHOSPHATASE 113 U/L (38-126); ALT/SGPT 89 U/L (21-72); AST/SGOT 63 U/L (17-59); BILIRUBIN,TOTAL 0.4 mg/dL (0.2-1.3); BLOOD UREA NITROGEN 10 mg/dL (9-20); CALCIUM 8.4 mg/dl (8.6-10.4); CARBON DIOXIDE 35 mmol/L (22-30); CHLORIDE 97 mmol/L (98-107); GFR AFRICAN-AMERICAN > 60; GLUCOSE,RANDOM 86 mg/dL (75-110); POTASSIUM 4.1 mmol/L (3.6-5.2); SODIUM 139 mmol/L (132-148); TOTAL PROTEIN 7.7 g/dL (6.3-8.3)
[2017-08-01] MEDS: Sucralfate 1 gm/10 ml Oral Susp UD PO SCH ×4 (09:27→20:59)
[2017-08-01] MEDS: Enoxaparin 30 mg Syringe SC SCH (09:27)
[2017-08-01] MEDS: Multiple Vitamins Tab PO SCH (09:27)
[2017-08-01] MEDS: Lactobacillus Acidophilus 500 MU Cap PO SCH ×2 (09:27→18:13)
[2017-08-01] MEDS: Pantoprazole 40 mg EC Tab PO SCH (09:28)
--- NOTE | 2017-08-01 15:55 | CP.PCM.PN ---
Subjective - Date & Time of Evaluation Date of Evaluation: 08/01/17 Time of Evaluation: 11:00 - Subjective Subjective: clinically same Objective - Vital Signs/Intake and Output Vital Signs (last 24 hours): Temp Pulse Resp BP Pulse Ox 97.9 F 84 95 H 106/72 100 08/01/17 08:54 08/01/17 08:54 08/01/17 08:54 08/01/17 08:54 08/01/17 08:54 Intake and Output: 08/01/17 08/01/17 06:59 18:59 Intake Total 400 Balance 400 - Medications Medications: Current Medications Ascorbic Acid (Vitamin C 500 Mg Tab) 500 mg PO DAILY [facility] Last Admin: 08/01/17 09:27 Dose: 500 mg Cyanocobalamin (Vitamin B12 1000 Mcg Tab) 1,000 mcg PO DAILY [facility] Last Admin: 08/01/17 09:27 Dose: 1,000 mcg Diphenhydramine HCl (Benadryl) 25 mg IVP Q3H PRN PRN Reason: Itching / Pruritus Last Admin: 08/01/17 15:01 Dose: 25 mg Enoxaparin Sodium (Lovenox) 30 mg SC DAILY [facility] Last Admin: 08/01/17 09:27 Dose: 30 mg Escitalopram Oxalate (Lexapro) 5 mg PO DAILY [facility] Last Admin: 08/01/17 12:04 Dose: 5 mg Ferrous Sulfate (Feosol) 325 mg PO BID [facility] Last Admin: 07/31/17 10:02 Dose: 325 mg Hydromorphone HCl (Dilaudid) 2 mg IVP Q3H PRN PRN Reason: Pain, severe (8-10) Last Admin: 08/01/17 15:01 Dose: 2 mg Vancomycin/Sodium Chloride (Vancomycin 1 Gm/Ns 200 Ml) 1 gm in 200 mls @ 166.6 mls/hr IVPB Q12H [facility] Stop: 08/04/17 17:01 Last Admin: 08/01/17 05:36 Dose: 166.6 mls/hr Meropenem 1 gm/ Sodium (Chloride) 100 mls @ 100 mls/hr IVPB Q8 [facility] Last Admin: 08/01/17 14:30 Dose: 100 mls/hr Lactobacillus Acidophilus (Bacid Acidophilus) 1 cap PO BID [facility] Last Admin: 08/01/17 09:27 Dose: 1 cap Loperamide HCl (Imodium) 2 mg PO TID PRN PRN Reason: Diarrhea Mesalamine (Delzicol) 800 mg PO DAILY [facility] Last Admin: 08/01/17 09:28 Dose: 800 mg Multivitamins (Hexavitamin) 1 tab PO DAILY [facility] Last Admin: 08/01/17 09:27 Dose: 1 tab Mupirocin (Bactroban Ointment) 0 gm TOP BID [facility] Last Admin: 08/01/17 09:44 Dose: 1 appl Pantoprazole Sodium (Protonix Ec Tab) 40 mg PO DAILY [facility] Last Admin: 08/01/17 09:28 Dose: 40 mg Sucralfate (Carafate Oral Susp) 1 gm PO QID [facility] Last Admin: 08/01/17 15:03 Dose: 1 gm - Labs Labs: 08/01/17 08:12 08/01/17 08:12 PT 11.6 SECONDS (9.7-12.2) 07/28/17 21:42 INR 1.0 07/28/17 21:42 APTT 21 SECONDS (21-34) 07/28/17 21:42 - Constitutional Appears: Well - Head Exam Head Exam: ATRAUMATIC, NORMAL INSPECTION, NORMOCEPHALIC - Eye Exam Eye Exam: EOMI, Normal appearance, PERRL Pupil Exam: NORMAL ACCOMODATION, PERRL - ENT Exam ENT Exam: Mucous Membranes Moist, Normal Exam - Neck Exam Neck Exam: Full ROM, Normal Inspection. absent: Lymphadenopathy - Respiratory Exam Respiratory Exam: Decreased Breath Sounds - Cardiovascular Exam Cardiovascular Exam: REGULAR RHYTHM, +S1, +S2 - GI/Abdominal Exam GI & Abdominal Exam: Soft, Diminished Bowel Sounds - Rectal Exam Rectal Exam: Deferred
[2017-08-02] MEDS: DiphenhydrAMINE 50 mg/ml Inj IVP PRN ×8 (00:16→22:08)
[2017-08-02] MEDS: HYDROmorphone 1 mg/ml ISec IVP PRN ×8 (00:17→22:08)
[2017-08-02] MEDS: Vancomycin 1 gm/NS 200 ml 1 GM/200 ML BAG IVPB SCH ×2 (05:14→18:00)
[2017-08-02] MEDS: Meropenem 1 GM in Sodium Chloride 0.9% 100 ML IVPB SCH ×3 (07:06→21:29)
[2017-08-02] MEDS: Enoxaparin 30 mg Syringe SC SCH (09:48)
[2017-08-02] MEDS: Multiple Vitamins Tab PO SCH (09:48)
[2017-08-02] MEDS: Pantoprazole 40 mg EC Tab PO SCH (09:48)
[2017-08-02] MEDS: Sucralfate 1 gm/10 ml Oral Susp UD PO SCH ×4 (09:48→21:30)
[2017-08-02] MEDS: Lactobacillus Acidophilus 500 MU Cap PO SCH ×2 (09:48→18:14)
[2017-08-02 10:08] LABS: POTASSIUM 4.3 mmol/L (3.6-5.2)
[2017-08-02 10:09] LABS: ALB/GLOB RATIO 1.1 (1.0-2.1); ALKALINE PHOSPHATASE 98 U/L (38-126); ALT/SGPT 75 U/L (21-72); AST/SGOT 76 U/L (17-59); BILIRUBIN,TOTAL 0.8 mg/dL (0.2-1.3); BLOOD UREA NITROGEN 10 mg/dL (9-20); CALCIUM 8.4 mg/dl (8.6-10.4); CARBON DIOXIDE 26 mmol/L (22-30); CHLORIDE 100 mmol/L (98-107); GFR AFRICAN-AMERICAN > 60; GLUCOSE,RANDOM 108 mg/dL (75-110); SODIUM 139 mmol/L (132-148); TOTAL PROTEIN 7.5 g/dL (6.3-8.3)
--- NOTE | 2017-08-02 16:50 | CP.PCM.PN ---
Subjective - Date & Time of Evaluation Date of Evaluation: 08/02/17 Time of Evaluation: 11:20 - Subjective Subjective: clinically same Objective - Vital Signs/Intake and Output Vital Signs (last 24 hours): Temp Pulse Resp BP Pulse Ox 97.7 F 88 18 116/80 99 08/02/17 08:34 08/02/17 08:34 08/02/17 08:34 08/02/17 08:34 08/02/17 08:34 Intake and Output: 08/02/17 08/02/17 06:59 18:59 Intake Total 850 Output Total 150 Balance 700 - Medications Medications: Current Medications Ascorbic Acid (Vitamin C 500 Mg Tab) 500 mg PO DAILY [facility] Last Admin: 08/02/17 09:48 Dose: 500 mg Cyanocobalamin (Vitamin B12 1000 Mcg Tab) 1,000 mcg PO DAILY [facility] Last Admin: 08/02/17 09:48 Dose: 1,000 mcg Diphenhydramine HCl (Benadryl) 25 mg IVP Q3H PRN PRN Reason: Itching / Pruritus Last Admin: 08/02/17 16:08 Dose: 25 mg Enoxaparin Sodium (Lovenox) 30 mg SC DAILY [facility] Last Admin: 08/02/17 09:48 Dose: 30 mg Escitalopram Oxalate (Lexapro) 5 mg PO DAILY [facility] Last Admin: 08/02/17 09:53 Dose: 5 mg Ferrous Sulfate (Feosol) 325 mg PO BID [facility] Last Admin: 07/31/17 10:02 Dose: 325 mg Hydromorphone HCl (Dilaudid) 2 mg IVP Q3H PRN PRN Reason: Pain, severe (8-10) Last Admin: 08/02/17 16:09 Dose: 2 mg Vancomycin/Sodium Chloride (Vancomycin 1 Gm/Ns 200 Ml) 1 gm in 200 mls @ 166.6 mls/hr IVPB Q12H [facility] Stop: 08/04/17 17:01 Last Admin: 08/02/17 05:14 Dose: 166.6 mls/hr Meropenem 1 gm/ Sodium (Chloride) 100 mls @ 100 mls/hr IVPB Q8 [facility] Last Admin: 08/02/17 13:17 Dose: 100 mls/hr Lactobacillus Acidophilus (Bacid Acidophilus) 1 cap PO BID [facility] Last Admin: 12/10/17 09:48 Dose: 1 cap Loperamide HCl (Imodium) 2 mg PO TID PRN PRN Reason: Diarrhea Mesalamine (Delzicol) 800 mg PO DAILY [facility] Last Admin: 08/02/17 09:48 Dose: 800 mg Multivitamins (Hexavitamin) 1 tab PO DAILY [facility] Last Admin: 08/02/17 09:48 Dose: 1 tab Mupirocin (Bactroban Ointment) 0 gm TOP BID [facility] Last Admin: 08/02/17 09:47 Dose: 1 appl Pantoprazole Sodium (Protonix Ec Tab) 40 mg PO DAILY [facility] Last Admin: 08/02/17 09:48 Dose: 40 mg Sucralfate (Carafate Oral Susp) 1 gm PO QID [facility] Last Admin: 08/02/17 14:09 Dose: Not Given - Labs Labs: 08/01/17 08:12 08/02/17 09:13 PT 11.6 SECONDS (9.7-12.2) 07/28/17 21:42 INR 1.0 07/28/17 21:42 APTT 21 SECONDS (21-34) 07/28/17 21:42 - Constitutional Appears: Well - Head Exam Head Exam: ATRAUMATIC, NORMAL INSPECTION, NORMOCEPHALIC - Eye Exam Eye Exam: EOMI, Normal appearance, PERRL Pupil Exam: NORMAL ACCOMODATION, PERRL - ENT Exam ENT Exam: Mucous Membranes Moist, Normal Exam - Neck Exam Neck Exam: Full ROM, Normal Inspection. absent: Lymphadenopathy - Respiratory Exam Respiratory Exam: Decreased Breath Sounds - Cardiovascular Exam Cardiovascular Exam: REGULAR RHYTHM, +S1, +S2 - GI/Abdominal Exam GI & Abdominal Exam: Soft, Diminished Bowel Sounds - Rectal Exam Rectal Exam: Deferred
[2017-08-03] MEDS: HYDROmorphone 1 mg/ml ISec IVP PRN ×7 (01:07→22:34)
[2017-08-03] MEDS: DiphenhydrAMINE 50 mg/ml Inj IVP PRN ×7 (01:07→22:33)
[2017-08-03] MEDS: Vancomycin 1 gm/NS 200 ml 1 GM/200 ML BAG IVPB SCH ×2 (04:32→18:36)
[2017-08-03] MEDS: Meropenem 1 GM in Sodium Chloride 0.9% 100 ML IVPB SCH (06:39)
--- NOTE | 2017-08-03 09:30 | CP.PCM.PN ---
Subjective - Date & Time of Evaluation Date of Evaluation: 08/03/17 Time of Evaluation: 09:27 - Subjective Subjective: PGY-[address] Barrett's service: Pt seen and examined at bedside. Nursing reports no acute events overnight. Over the weekend, nursing reports LFTs have begun to rise. Reinforced patient education by staff on dilaudid effect on liver. He denies episodes of vomiting/ hematemesis over the weekend. Patient still complaining of pain between his buttocks at sites of open wounds. Objective - Vital Signs/Intake and Output Vital Signs (last 24 hours): Temp Pulse Resp BP Pulse Ox 97.6 F 84 18 119/87 98 08/03/17 08:00 08/03/17 08:00 08/03/17 08:00 08/03/17 08:00 08/03/17 08:00 Intake and Output: 08/03/17 08/03/17 06:59 18:59 Intake Total 1000 Output Total 600 Balance 400 - Medications Medications: Current Medications Alteplase, Recombinant (Cathflo 2 Mg Inj) 2 mg IV ONCE ONE Stop: 08/03/17 09:26 Alteplase, Recombinant (Cathflo 2 Mg Inj) 2 mg IV ONCE ONE Stop: 08/03/17 09:27 Ascorbic Acid (Vitamin C 500 Mg Tab) 500 mg PO DAILY [facility] Last Admin: 08/02/17 09:48 Dose: 500 mg Cyanocobalamin (Vitamin B12 1000 Mcg Tab) 1,000 mcg PO DAILY [facility] Last Admin: 08/02/17 09:48 Dose: 1,000 mcg Diphenhydramine HCl (Benadryl) 25 mg IVP Q3H PRN PRN Reason: Itching / Pruritus Last Admin: 08/03/17 07:19 Dose: 25 mg Enoxaparin Sodium (Lovenox) 30 mg SC DAILY [facility] Last Admin: 08/02/17 09:48 Dose: 30 mg Escitalopram Oxalate (Lexapro) 5 mg PO DAILY [facility] Last Admin: 08/02/17 09:53 Dose: 5 mg Ferrous Sulfate (Feosol) 325 mg PO BID [facility] Last Admin: 07/31/17 10:02 Dose: 325 mg Hydromorphone HCl (Dilaudid) 2 mg IVP Q3H PRN PRN Reason: Pain, severe (8-10) Last Admin: 08/03/17 07:19 Dose: 2 mg Vancomycin/Sodium Chloride (Vancomycin 1 Gm/Ns 200 Ml) 1 gm in 200 mls @ 166.6 mls/hr IVPB Q12H [facility] Stop: 08/04/17 17:01 Last Admin: 08/03/17 04:32 Dose: 166.6 mls/hr Meropenem 1 gm/ Sodium (Chloride) 100 mls @ 100 mls/hr IVPB Q8 [facility] Last Admin: 08/03/17 06:39 Dose: 100 mls/hr Lactobacillus Acidophilus (Bacid Acidophilus) 1 cap PO BID [facility] Last Admin: 08/02/17 18:14 Dose: 1 cap Loperamide HCl (Imodium) 2 mg PO TID PRN PRN Reason: Diarrhea Mesalamine (Delzicol) 800 mg PO DAILY [facility] Last Admin: 08/02/17 09:48 Dose: 800 mg Multivitamins (Hexavitamin) 1 tab PO DAILY [facility] Last Admin: 08/02/17 09:48 Dose: 1 tab Mupirocin (Bactroban Ointment) 0 gm TOP BID [facility] Last Admin: 08/02/17 19:00 Dose: 1 appl Pantoprazole Sodium (Protonix Ec Tab) 40 mg PO DAILY [facility] Last Admin: 08/02/17 09:48 Dose: 40 mg Sucralfate (Carafate Oral Susp) 1 gm PO QID [facility] Last Admin: 08/02/17 21:30 Dose: 1 gm - Labs Labs: 08/01/17 08:12 08/02/17 09:13 PT 11.6 SECONDS (9.7-12.2) 07/28/17 21:42 INR 1.0 07/28/17 21:42 APTT 21 SECONDS (21-34) 07/28/17 21:42 - Additional Findings Additional findings: - Constitutional Appears: Non-toxic, No Acute Distress - Head Exam Head Exam: ATRAUMATIC, NORMAL INSPECTION - Eye Exam Eye Exam: EOMI, Normal appearance. absent: Scleral icterus Pupil Exam: PERRL - ENT Exam ENT Exam: Mucous Membranes Moist - Neck Exam Neck Exam: Full ROM - Respiratory Exam Respiratory Exam: Clear to Ausculation Bilateral, NORMAL BREATHING PATTERN - Cardiovascular Exam Cardiovascular Exam: REGULAR RHYTHM, +S1, +S2 - GI/Abdominal Exam GI & Abdominal Exam: Soft, Normal Bowel Sounds. absent: Tenderness Additional comments: Colostomy bag with yellow/brown stool; no blood appreciated - Rectal Exam Additional comments: Open excoriated wounds in perianal area/between buttocks - mild bleeding noted from wounds, no pus appreciated - Extremities Exam Extremities Exam: Normal Inspection - Neurological Exam Neurological Exam: Alert, Awake, Oriented x3 - Psychiatric Exam Psychiatric exam: Normal Affect, Normal Mood - Skin Skin Exam: Normal Color, Warm Assessment and Plan - Assessment and Plan (Free Text) Plan: Rectal Wound Afebrile, WBC WNL Long history of abscesses in this area ID consult, Dr. Daniel, help appreciated - Merrem 1gm IV q8H (Day 5) - Vanco 1gm IV Q12H (Day 5) - Random Vanco: 20.68 Surgical consult, Dr. Taylor - no abscesses at site, will not follow Decrease Dilaudid 1mg IV Q4H PRN for Pain Wound culture (Back): E. coli - Prior admission Culture: Wound cultures (05/21/17): Pseudomonas aeruginosa, Citrobacter freundii, Staph aureus Blood cultures: no growth x 4days Urine Culture: No growth Wound care nurse consult, help appreciated - f/u reccs Hematemesis - Resolved Admission to Tele No episodes since admission Hgb stable, no blood seen in colostomy bag Dr. Lopez consulted, help appreciated - Carafate 1gm PO QID [facility] - recent endoscopy showing erosive esophagitis - avoid PO iron, use IV - signed off Crohn's Disease Loop Colostomy (2015) Complicated by persistent abscesses Home med Delzicol 800mg PO Daily Loperamide 2mg PO TID PRN Vitamin C 500mg PO Daily Decrease Dilaudid 1mg IV Q4H PRN for Pain History of anemia Hgb stable, 12.4 today - D/C Feosol 325mg PO BID per GI Transaminitis AST/ALT 76/75 - will scale back dilaudid Anxiety Lexapro 5mg PO Daily Prophylaxis Protonix 40mg PO daily Lovenox 30mg SC Daily SCDs Lactobacillus 1 cap PO BID Regular diet Shahriar Celis PGY-[address] Barrett
[2017-08-03] MEDS: Lactobacillus Acidophilus 500 MU Cap PO SCH ×2 (09:45→18:07)
[2017-08-03] MEDS: Sucralfate 1 gm/10 ml Oral Susp UD PO SCH ×5 (09:45→22:18)
[2017-08-03] MEDS: Pantoprazole 40 mg EC Tab PO SCH (09:46)
[2017-08-03] MEDS: Multiple Vitamins Tab PO SCH (09:46)
[2017-08-03] MEDS: Enoxaparin 30 mg Syringe SC SCH (09:47)
[2017-08-03 11:16] LABS: BASO # 0.1 K/uL (0.0-0.2); BASO % 0.9 % (0.0-2.0); EOS # 0.8 K/uL (0.0-0.7); EOS % 8.5 % (0.0-4.0); HEMATOCRIT 37.1 % (35.0-51.0); LYMPH # 4.7 K/uL (1.0-4.3); LYMPH % 48.6 % (20.0-40.0); MEAN CELL VOLUME 72.2 fL (80.0-94.0); MEAN CORPUSCULAR HGB CONC 31.8 g/dL (33.0-37.0); MEAN PLATELET VOLUME 8.4 fL (7.2-11.7); MONO # 0.5 K/uL (0.0-0.8); MONO % 5.4 % (0.0-10.0); RED CELL DISTRIBUTION WIDTH 19.3 % (11.5-14.5); WHITE BLOOD COUNT 9.7 K/uL (4.8-10.8)
[2017-08-03 11:33] LABS: ALB/GLOB RATIO 1.2 (1.0-2.1); ALKALINE PHOSPHATASE 127 U/L (38-126); ALT/SGPT 87 U/L (21-72); AST/SGOT 57 U/L (17-59); BILIRUBIN,TOTAL 0.3 mg/dL (0.2-1.3); BLOOD UREA NITROGEN 11 mg/dL (9-20); CALCIUM 8.8 mg/dl (8.6-10.4); CARBON DIOXIDE 27 mmol/L (22-30); CHLORIDE 102 mmol/L (98-107); GFR AFRICAN-AMERICAN > 60; GLUCOSE,RANDOM 124 mg/dL (75-110); POTASSIUM 3.7 mmol/L (3.6-5.2); SODIUM 137 mmol/L (132-148)
[2017-08-03] MEDS: Meropenem IV 1 gm in NS 50 ML IVPB SCH ×2 (14:42→22:17)
[2017-08-03 16:15] VITALS: RESP 20
--- NOTE | 2017-08-03 19:02 | CP.PCM.PN ---
Subjective - Date & Time of Evaluation Date of Evaluation: 08/03/17 Time of Evaluation: 10:00 - Subjective Subjective: clinically same Objective - Vital Signs/Intake and Output Vital Signs (last 24 hours): Temp Pulse Resp BP Pulse Ox 98 F 86 20 118/75 100 08/03/17 15:00 08/03/17 15:00 08/03/17 15:00 08/03/17 15:00 08/03/17 15:00 - Medications Medications: Current Medications Ascorbic Acid (Vitamin C 500 Mg Tab) 500 mg PO DAILY [facility] Last Admin: 08/03/17 09:46 Dose: 500 mg Cyanocobalamin (Vitamin B12 1000 Mcg Tab) 1,000 mcg PO DAILY [facility] Last Admin: 08/03/17 09:46 Dose: 1,000 mcg Diphenhydramine HCl (Benadryl) 25 mg IVP Q3H PRN PRN Reason: Itching / Pruritus Last Admin: 08/03/17 18:34 Dose: 25 mg Enoxaparin Sodium (Lovenox) 30 mg SC DAILY [facility] Last Admin: 08/03/17 09:47 Dose: 30 mg Escitalopram Oxalate (Lexapro) 5 mg PO DAILY [facility] Last Admin: 08/03/17 09:46 Dose: 5 mg Ferrous Sulfate (Feosol) 325 mg PO BID [facility] Last Admin: 07/31/17 10:02 Dose: 325 mg Hydromorphone HCl (Dilaudid) 1 mg IVP Q4H PRN PRN Reason: Pain, severe (8-10) Last Admin: 08/03/17 18:35 Dose: 1 mg Vancomycin/Sodium Chloride (Vancomycin 1 Gm/Ns 200 Ml) 1 gm in 200 mls @ 166.6 mls/hr IVPB Q12H [facility] Stop: 08/04/17 17:01 Last Admin: 08/03/17 18:36 Dose: 166.6 mls/hr Meropenem (Merrem Iv 1 Gm Premix) 50 mls @ 100 mls/hr IVPB Q8 [facility] Last Admin: 08/03/17 14:42 Dose: 100 mls/hr Lactobacillus Acidophilus (Bacid Acidophilus) 1 cap PO BID [facility] Last Admin: 08/03/17 18:07 Dose: 1 cap Loperamide HCl (Imodium) 2 mg PO TID PRN PRN Reason: Diarrhea Mesalamine (Delzicol) 800 mg PO DAILY [facility] Last Admin: 08/03/17 09:46 Dose: 800 mg Multivitamins (Hexavitamin) 1 tab PO DAILY [facility] Last Admin: 08/03/17 09:46 Dose: 1 tab Mupirocin (Bactroban Ointment) 0 gm TOP BID [facility] Last Admin: 08/03/17 18:07 Dose: 1 appl Pantoprazole Sodium (Protonix Ec Tab) 40 mg PO DAILY [facility] Last Admin: 08/03/17 09:46 Dose: 40 mg Sucralfate (Carafate Oral Susp) 1 gm PO QID [facility] Last Admin: 08/03/17 18:07 Dose: 1 gm - Labs Labs: 08/03/17 11:12 08/03/17 11:12 PT 11.6 SECONDS (9.7-12.2) 07/28/17 21:42 INR 1.0 07/28/17 21:42 APTT 21 SECONDS (21-34) 07/28/17 21:42 - Constitutional Appears: Well - Head Exam Head Exam: ATRAUMATIC, NORMAL INSPECTION, NORMOCEPHALIC - Eye Exam Eye Exam: EOMI, Normal appearance, PERRL Pupil Exam: NORMAL ACCOMODATION, PERRL - ENT Exam ENT Exam: Mucous Membranes Moist, Normal Exam - Neck Exam Neck Exam: Full ROM, Normal Inspection. absent: Lymphadenopathy - Respiratory Exam Respiratory Exam: Decreased Breath Sounds - Cardiovascular Exam Cardiovascular Exam: REGULAR RHYTHM, +S1, +S2 - GI/Abdominal Exam GI & Abdominal Exam: Soft, Diminished Bowel Sounds - Rectal Exam Rectal Exam: Deferred
--- NOTE | 2017-08-03 19:38 | CP.PCM.PN ---
Subjective - Date & Time of Evaluation Date of Evaluation: 08/03/17 Time of Evaluation: 04:00 - Subjective Subjective: dictated Objective - Vital Signs/Intake and Output Vital Signs (last 24 hours): Temp Pulse Resp BP Pulse Ox 98 F 86 20 118/75 100 08/03/17 15:00 08/03/17 15:00 08/03/17 15:00 08/03/17 15:00 08/03/17 15:00 - Medications Medications: Current Medications Ascorbic Acid (Vitamin C 500 Mg Tab) 500 mg PO DAILY [facility] Last Admin: 08/03/17 09:46 Dose: 500 mg Cyanocobalamin (Vitamin B12 1000 Mcg Tab) 1,000 mcg PO DAILY [facility] Last Admin: 08/03/17 09:46 Dose: 1,000 mcg Diphenhydramine HCl (Benadryl) 25 mg IVP Q3H PRN PRN Reason: Itching / Pruritus Last Admin: 08/03/17 18:34 Dose: 25 mg Enoxaparin Sodium (Lovenox) 30 mg SC DAILY [facility] Last Admin: 08/03/17 09:47 Dose: 30 mg Escitalopram Oxalate (Lexapro) 5 mg PO DAILY [facility] Last Admin: 08/03/17 09:46 Dose: 5 mg Ferrous Sulfate (Feosol) 325 mg PO BID [facility] Last Admin: 07/31/17 10:02 Dose: 325 mg Hydromorphone HCl (Dilaudid) 1 mg IVP Q4H PRN PRN Reason: Pain, severe (8-10) Last Admin: 08/03/17 18:35 Dose: 1 mg Meropenem (Merrem Iv 1 Gm Premix) 50 mls @ 100 mls/hr IVPB Q8 [facility] Last Admin: 08/03/17 14:42 Dose: 100 mls/hr Lactobacillus Acidophilus (Bacid Acidophilus) 1 cap PO BID [facility] Last Admin: 08/03/17 18:07 Dose: 1 cap Loperamide HCl (Imodium) 2 mg PO TID PRN PRN Reason: Diarrhea Mesalamine (Delzicol) 800 mg PO DAILY [facility] Last Admin: 08/03/17 09:46 Dose: 800 mg Multivitamins (Hexavitamin) 1 tab PO DAILY [facility] Last Admin: 08/03/17 09:46 Dose: 1 tab Mupirocin (Bactroban Ointment) 0 gm TOP BID [facility] Last Admin: 08/03/17 18:07 Dose: 1 appl Pantoprazole Sodium (Protonix Ec Tab) 40 mg PO DAILY [facility] Last Admin: 08/03/17 09:46 Dose: 40 mg Sucralfate (Carafate Oral Susp) 1 gm PO QID [facility] Last Admin: 08/03/17 18:07 Dose: 1 gm - Labs Labs: 08/03/17 11:12 08/03/17 11:12 PT 11.6 SECONDS (9.7-12.2) 07/28/17 21:42 INR 1.0 07/28/17 21:42 APTT 21 SECONDS (21-34) 07/28/17 21:42
--- NOTE | 2017-08-04 01:01 | PN ---
DATE: SUBJECTIVE: The patient states that he is having lot of excoriation on the perirectal area and between his buttocks. He is not even able to stretch his leg while he sits on the commode or walk around, and he has lot of pain. When I saw, I did see it was pretty excoriated areas and painful. He has been on pain medications. He states that the Surgery will be seen tomorrow. I am not sure if they could do anything about it. PHYSICAL EXAMINATION: VITAL SIGNS: T-max is 98, pulse 86, blood pressure 118/75, respirations are 20. HEENT: Head is atraumatic and normocephalic. NECK: Supple. LUNGS: Clear. No crackles or rubs present. HEART: S1 and S2 is regular. ABDOMEN: Soft, nontender. No guarding. No rigidity present. EXTREMITIES: Have no edema. Perirectal area remains irritated with excoriation of the skin. LABORATORY DATA: Labs show his BUN is 11, creatinine 0.7, white count is 9.7. The wound culture came out E. coli, hence at this time, I will discontinue the vancomycin that he has been getting, as it has its own consequences. He is on Merrem at this time and he needs to be evaluated if anything can be done in this area to make them healed. The other problem is that he is on Remicade as outpatient and starts to get hard stool and that may be decreasing his wound healing. Santosh Daniel MD
[2017-08-04] MEDS: DiphenhydrAMINE 50 mg/ml Inj IVP PRN ×5 (03:37→20:10)
[2017-08-04] MEDS: HYDROmorphone 1 mg/ml ISec IVP PRN ×5 (03:38→20:09)
[2017-08-04] MEDS: Meropenem IV 1 gm in NS 50 ML IVPB SCH ×3 (06:28→21:49)
--- NOTE | 2017-08-04 07:35 | CP.PCM.PN ---
Subjective - Date & Time of Evaluation Date of Evaluation: 08/04/17 Time of Evaluation: 11:52 - Subjective Subjective: PGY2 Medicine Note for Dr. Shiloh Barrett; All management as per Dr. Shiloh Barrett Patient seen and examined at [facility]. He is refusing to go home until Dr. Faye comes and speaks to him about his apparent "abscess" on his left thigh that looks no different from previous admissions is also extremely focused on his dilaudid timing/dosing. He is denying any symptoms today; denies fevers/chills, DE JESUS, CP, SOB, abdominal pain, dysuria/freq/urg, or lower extremity pain/swelling. Objective - Vital Signs/Intake and Output Vital Signs (last 24 hours): Temp Pulse Resp BP Pulse Ox 97.6 F 73 20 112/72 97 08/03/17 23:20 08/03/17 23:20 08/03/17 23:20 08/03/17 23:20 08/03/17 23:20 - Medications Medications: Current Medications Ascorbic Acid (Vitamin C 500 Mg Tab) 500 mg PO DAILY [facility] Last Admin: 08/03/17 09:46 Dose: 500 mg Cyanocobalamin (Vitamin B12 1000 Mcg Tab) 1,000 mcg PO DAILY [facility] Last Admin: 08/03/17 09:46 Dose: 1,000 mcg Diphenhydramine HCl (Benadryl) 25 mg IVP Q3H PRN PRN Reason: Itching / Pruritus Last Admin: 08/04/17 03:37 Dose: 25 mg Enoxaparin Sodium (Lovenox) 30 mg SC DAILY [facility] Last Admin: 08/03/17 09:47 Dose: 30 mg Escitalopram Oxalate (Lexapro) 5 mg PO DAILY [facility] Last Admin: 08/03/17 09:46 Dose: 5 mg Ferrous Sulfate (Feosol) 325 mg PO BID [facility] Last Admin: 07/31/17 10:02 Dose: 325 mg Hydromorphone HCl (Dilaudid) 1 mg IVP Q4H PRN PRN Reason: Pain, severe (8-10) Last Admin: 08/04/17 03:38 Dose: 1 mg Meropenem (Merrem Iv 1 Gm Premix) 50 mls @ 100 mls/hr IVPB Q8 [facility] Last Admin: 08/04/17 06:28 Dose: 100 mls/hr Lactobacillus Acidophilus (Bacid Acidophilus) 1 cap PO BID [facility] Last Admin: 08/03/17 18:07 Dose: 1 cap Loperamide HCl (Imodium) 2 mg PO TID PRN PRN Reason: Diarrhea Mesalamine (Delzicol) 800 mg PO DAILY [facility] Last Admin: 08/03/17 09:46 Dose: 800 mg Multivitamins (Hexavitamin) 1 tab PO DAILY [facility] Last Admin: 08/03/17 09:46 Dose: 1 tab Mupirocin (Bactroban Ointment) 0 gm TOP BID [facility] Last Admin: 08/03/17 18:07 Dose: 1 appl Pantoprazole Sodium (Protonix Ec Tab) 40 mg PO DAILY [facility] Last Admin: 08/03/17 09:46 Dose: 40 mg Sucralfate (Carafate Oral Susp) 1 gm PO QID [facility] Last Admin: 08/03/17 22:18 Dose: Not Given - Labs Labs: 08/03/17 11:12 08/03/17 11:12 PT 11.6 SECONDS (9.7-12.2) 07/28/17 21:42 INR 1.0 07/28/17 21:42 APTT 21 SECONDS (21-34) 07/28/17 21:42 - Constitutional Appears: Non-toxic - Head Exam Head Exam: ATRAUMATIC - Eye Exam Eye Exam: EOMI - Neck Exam Neck Exam: Full ROM - Respiratory Exam Respiratory Exam: Clear to Ausculation Bilateral, NORMAL BREATHING PATTERN. absent: Rales, Rhonchi, Wheezes - Cardiovascular Exam Cardiovascular Exam: REGULAR RHYTHM, +S1, +S2 - GI/Abdominal Exam GI & Abdominal Exam: Soft. absent: Tenderness - Exam Additional comments: patient has raw skin between buttocks; no visible or palpable abscess - Back Exam Back Exam: absent: CVA tenderness (L), CVA tenderness (R) - Neurological Exam Neurological Exam: Alert, Awake, Oriented x3 - Skin Skin Exam: Warm Assessment and Plan - Assessment and Plan (Free Text) Assessment: Rectal Wound;chronic Afebrile, WBC WNL Long history of abscesses in this area ID consult, Dr. Daniel, help appreciated - Merrem 1gm IV q8H (Day 5) - Vanco 1gm IV Q12H (Day 5) - Random Vanco: 20.68 Surgical consult, Dr. Taylor - no abscesses at site, will not follow, has signed off Decrease Dilaudid 1mg IV Q4H PRN for Pain; patient is highly dependent on high dose narcotics Wound culture (Back): E. coli - Prior admission Culture: Wound cultures (05/21/17): Pseudomonas aeruginosa, Citrobacter freundii, Staph aureus Blood cultures: no growth x 4days Urine Culture: No growth Wound care nurse consult, help appreciated - f/u recs Hematemesis - Resolved Admission to Tele No episodes since admission Hgb stable, no blood seen in colostomy bag Dr. Lopez consulted, help appreciated - Carafate 1gm PO QID NICOLETTE - recent endoscopy showing erosive esophagitis - avoid PO iron, use IV - signed off Crohn's Disease;chronic and uncontrolled Loop Colostomy (2015) Complicated by persistent abscesses Home med Delzicol 800mg PO Daily Loperamide 2mg PO TID PRN Vitamin C 500mg PO Daily Decrease Dilaudid 1mg IV Q4H PRN for Pain History of anemia Hgb stable, 12.4 today - D/C Feosol 325mg PO BID per GI Transaminitis AST/ALT 76/75 - will scale back dilaudid Anxiety Lexapro 5mg PO Daily Prophylaxis Protonix 40mg PO daily Lovenox 30mg SC Daily SCDs Lactobacillus 1 cap PO BID Regular diet All management per Dr. Barrett
[2017-08-04 07:58] LABS: BASO # 0.1 K/uL (0.0-0.2); BASO % 0.6 % (0.0-2.0); EOS # 0.7 K/uL (0.0-0.7); EOS % 6.4 % (0.0-4.0); HEMATOCRIT 37.1 % (35.0-51.0); LYMPH # 4.3 K/uL (1.0-4.3); LYMPH % 40.5 % (20.0-40.0); MEAN CELL VOLUME 71.8 fL (80.0-94.0); MEAN CORPUSCULAR HEMOGLOBIN 23.2 pg (27.0-31.0); MEAN CORPUSCULAR HGB CONC 32.3 g/dL (33.0-37.0); MEAN PLATELET VOLUME 8.2 fL (7.2-11.7); MONO # 0.6 K/uL (0.0-0.8); MONO % 5.7 % (0.0-10.0); NRBC % 0.1 % (0.0-2.0); RED CELL DISTRIBUTION WIDTH 19.4 % (11.5-14.5); WHITE BLOOD COUNT 10.6 K/uL (4.8-10.8)
[2017-08-04 08:18] LABS: ALB/GLOB RATIO 1.1 (1.0-2.1); ALKALINE PHOSPHATASE 116 U/L (38-126); ALT/SGPT 83 U/L (21-72); AST/SGOT 49 U/L (17-59); BILIRUBIN,TOTAL 0.4 mg/dL (0.2-1.3); BLOOD UREA NITROGEN 13 mg/dL (9-20); CARBON DIOXIDE 29 mmol/L (22-30); CHLORIDE 101 mmol/L (98-107); GFR AFRICAN-AMERICAN > 60; GLUCOSE,RANDOM 87 mg/dL (75-110); MAGNESIUM 1.8 mg/dL (1.6-2.3); PHOSPHOROUS 2.8 mg/dL (2.5-4.5); POTASSIUM 3.8 mmol/L (3.6-5.2); SODIUM 137 mmol/L (132-148); TOTAL PROTEIN 7.2 g/dL (6.3-8.3)
[2017-08-04] MEDS: Enoxaparin 30 mg Syringe SC SCH (09:57)
[2017-08-04] MEDS: Sucralfate 1 gm/10 ml Oral Susp UD PO SCH ×4 (09:57→21:49)
[2017-08-04] MEDS: Multiple Vitamins Tab PO SCH (09:57)
[2017-08-04] MEDS: Lactobacillus Acidophilus 500 MU Cap PO SCH ×2 (09:57→18:09)
[2017-08-04] MEDS: Pantoprazole 40 mg EC Tab PO SCH (09:57)
--- NOTE | 2017-08-04 18:35 | CP.PCM.PN ---
Subjective - Date & Time of Evaluation Date of Evaluation: 08/04/17 Time of Evaluation: 10:40 - Subjective Subjective: clinically same Objective - Vital Signs/Intake and Output Vital Signs (last 24 hours): Temp Pulse Resp BP Pulse Ox 98.6 F 110 H 20 113/74 99 08/04/17 15:16 08/04/17 15:16 08/04/17 15:16 08/04/17 15:16 08/04/17 15:16 Intake and Output: 08/04/17 08/04/17 06:59 18:59 Intake Total 500 Balance 500 - Medications Medications: Current Medications Ascorbic Acid (Vitamin C 500 Mg Tab) 500 mg PO DAILY [facility] Last Admin: 08/04/17 09:57 Dose: 500 mg Cyanocobalamin (Vitamin B12 1000 Mcg Tab) 1,000 mcg PO DAILY [facility] Last Admin: 08/04/17 09:57 Dose: 1,000 mcg Diphenhydramine HCl (Benadryl) 25 mg IVP Q3H PRN PRN Reason: Itching / Pruritus Last Admin: 08/04/17 16:06 Dose: 25 mg Enoxaparin Sodium (Lovenox) 30 mg SC DAILY [facility] Last Admin: 08/04/17 09:57 Dose: 30 mg Escitalopram Oxalate (Lexapro) 5 mg PO DAILY [facility] Last Admin: 08/04/17 09:57 Dose: 5 mg Ferrous Sulfate (Feosol) 325 mg PO BID [facility] Last Admin: 07/31/17 10:02 Dose: 325 mg Hydromorphone HCl (Dilaudid) 2 mg IVP Q4H PRN PRN Reason: Pain, severe (8-10) Meropenem (Merrem Iv 1 Gm Premix) 50 mls @ 100 mls/hr IVPB Q8 [facility] Last Admin: 08/04/17 14:23 Dose: 100 mls/hr Lactobacillus Acidophilus (Bacid Acidophilus) 1 cap PO BID [facility] Last Admin: 08/04/17 18:09 Dose: 1 cap Loperamide HCl (Imodium) 2 mg PO TID PRN PRN Reason: Diarrhea Mesalamine (Delzicol) 800 mg PO DAILY [facility] Last Admin: 08/04/17 09:57 Dose: 800 mg Multivitamins (Hexavitamin) 1 tab PO DAILY [facility] Last Admin: 08/04/17 09:57 Dose: 1 tab Mupirocin (Bactroban Ointment) 0 gm TOP BID [facility] Last Admin: 08/04/17 18:10 Dose: Not Given Pantoprazole Sodium (Protonix Ec Tab) 40 mg PO DAILY [facility] Last Admin: 08/04/17 09:57 Dose: 40 mg Sucralfate (Carafate Oral Susp) 1 gm PO QID [facility] Last Admin: 08/04/17 18:09 Dose: 1 gm - Labs Labs: 08/04/17 07:41 08/04/17 07:41 PT 11.6 SECONDS (9.7-12.2) 07/28/17 21:42 INR 1.0 07/28/17 21:42 APTT 21 SECONDS (21-34) 07/28/17 21:42 - Constitutional Appears: Well - Head Exam Head Exam: ATRAUMATIC, NORMAL INSPECTION, NORMOCEPHALIC - Eye Exam Eye Exam: EOMI, Normal appearance, PERRL Pupil Exam: NORMAL ACCOMODATION, PERRL - ENT Exam ENT Exam: Mucous Membranes Moist, Normal Exam - Neck Exam Neck Exam: Full ROM, Normal Inspection. absent: Lymphadenopathy - Respiratory Exam Respiratory Exam: Decreased Breath Sounds - Cardiovascular Exam Cardiovascular Exam: REGULAR RHYTHM, +S1, +S2 - GI/Abdominal Exam GI & Abdominal Exam: Soft, Diminished Bowel Sounds - Rectal Exam Rectal Exam: Deferred
[2017-08-05] MEDS: DiphenhydrAMINE 50 mg/ml Inj IVP PRN ×7 (00:08→22:17)
[2017-08-05] MEDS: HYDROmorphone 1 mg/ml ISec IVP PRN ×7 (00:08→22:18)
[2017-08-05] MEDS: Meropenem IV 1 gm in NS 50 ML IVPB SCH (05:57)
[2017-08-05 07:14] LABS: BASO # 0.1 K/uL (0.0-0.2); BASO % 0.7 % (0.0-2.0); EOS # 0.7 K/uL (0.0-0.7); EOS % 5.2 % (0.0-4.0); HEMATOCRIT 38.5 % (35.0-51.0); LYMPH % 42.9 % (20.0-40.0); MEAN CELL VOLUME 70.9 fL (80.0-94.0); MEAN CORPUSCULAR HEMOGLOBIN 22.7 pg (27.0-31.0); MEAN CORPUSCULAR HGB CONC 32.1 g/dL (33.0-37.0); MONO # 0.9 K/uL (0.0-0.8); MONO % 6.5 % (0.0-10.0); RED CELL DISTRIBUTION WIDTH 19.1 % (11.5-14.5); WHITE BLOOD COUNT 14.1 K/uL (4.8-10.8)
[2017-08-05 07:52] LABS: ALB/GLOB RATIO 1.2 (1.0-2.1); ALKALINE PHOSPHATASE 115 U/L (38-126); ALT/SGPT 82 U/L (21-72); AST/SGOT 51 U/L (17-59); BILIRUBIN,TOTAL 0.5 mg/dL (0.2-1.3); BLOOD UREA NITROGEN 11 mg/dL (9-20); CALCIUM 9.8 mg/dl (8.6-10.4); CARBON DIOXIDE 34 mmol/L (22-30); CHLORIDE 96 mmol/L (98-107); GFR AFRICAN-AMERICAN > 60; GLUCOSE,RANDOM 85 mg/dL (75-110); MAGNESIUM 1.6 mg/dL (1.6-2.3); PHOSPHOROUS 3.8 mg/dL (2.5-4.5); POTASSIUM 3.4 mmol/L (3.6-5.2); SODIUM 137 mmol/L (132-148); TOTAL PROTEIN 7.4 g/dL (6.3-8.3)
--- NOTE | 2017-08-05 10:26 | CP.PCM.PN ---
Subjective - Date & Time of Evaluation Date of Evaluation: 08/05/17 Time of Evaluation: 10:25 - Subjective Subjective: PGY2 Progress Note for Dr. Shiloh Barrett's service: Patient seen and examined at bedside. Nursing reports no acute events overnight. Patient asking for changes to his dilaudid dosing, saying that his pain is not controlled after three hours. He states the "raw areas" between his buttocks are still extremely painful. Patient admits tolerating diet, and denies further episodes of abdominal pain, hematemesis. Wound care nurse is to see patient today. Objective - Vital Signs/Intake and Output Vital Signs (last 24 hours): Temp Pulse Resp BP Pulse Ox 97.9 F 85 20 114/78 77 L 08/05/17 09:04 08/05/17 09:04 08/05/17 09:04 08/05/17 09:04 08/05/17 09:04 Intake and Output: 08/05/17 08/05/17 06:59 18:59 Intake Total 250 Output Total 500 Balance -250 - Medications Medications: Current Medications Ascorbic Acid (Vitamin C 500 Mg Tab) 500 mg PO DAILY [facility] Last Admin: 08/04/17 09:57 Dose: 500 mg Cyanocobalamin (Vitamin B12 1000 Mcg Tab) 1,000 mcg PO DAILY [facility] Last Admin: 08/04/17 09:57 Dose: 1,000 mcg Diphenhydramine HCl (Benadryl) 25 mg IVP Q3H PRN PRN Reason: Itching / Pruritus Last Admin: 08/05/17 08:13 Dose: 25 mg Enoxaparin Sodium (Lovenox) 30 mg SC DAILY [facility] Last Admin: 08/04/17 09:57 Dose: 30 mg Escitalopram Oxalate (Lexapro) 5 mg PO DAILY [facility] Last Admin: 08/04/17 09:57 Dose: 5 mg Ferrous Sulfate (Feosol) 325 mg PO BID [facility] Last Admin: 07/31/17 10:02 Dose: 325 mg Hydromorphone HCl (Dilaudid) 2 mg IVP Q4H PRN PRN Reason: Pain, severe (8-10) Last Admin: 08/05/17 08:12 Dose: 2 mg Meropenem (Merrem Iv 1 Gm Premix) 50 mls @ 100 mls/hr IVPB Q8 [facility] Last Admin: 08/05/17 05:57 Dose: 100 mls/hr Lactobacillus Acidophilus (Bacid Acidophilus) 1 cap PO BID [facility] Last Admin: 08/04/17 18:09 Dose: 1 cap Loperamide HCl (Imodium) 2 mg PO TID PRN PRN Reason: Diarrhea Mesalamine (Delzicol) 800 mg PO DAILY [facility] Last Admin: 08/04/17 09:57 Dose: 800 mg Multivitamins (Hexavitamin) 1 tab PO DAILY [facility] Last Admin: 08/04/17 09:57 Dose: 1 tab Mupirocin (Bactroban Ointment) 0 gm TOP BID [facility] Last Admin: 08/04/17 18:10 Dose: Not Given Pantoprazole Sodium (Protonix Ec Tab) 40 mg PO DAILY [facility] Last Admin: 08/04/17 09:57 Dose: 40 mg Sucralfate (Carafate Oral Susp) 1 gm PO QID [facility] Last Admin: 08/04/17 21:49 Dose: 1 gm - Labs Labs: 08/05/17 07:07 08/05/17 07:07 PT 11.6 SECONDS (9.7-12.2) 07/28/17 21:42 INR 1.0 07/28/17 21:42 APTT 21 SECONDS (21-34) 07/28/17 21:42 - Additional Findings Additional findings: - Constitutional Appears: Non-toxic - Head Exam Head Exam: ATRAUMATIC - Eye Exam Eye Exam: EOMI - Neck Exam Neck Exam: Full ROM - Respiratory Exam Respiratory Exam: Clear to Ausculation Bilateral, NORMAL BREATHING PATTERN. absent: Rales, Rhonchi, Wheezes - Cardiovascular Exam Cardiovascular Exam: REGULAR RHYTHM, +S1, +S2 - GI/Abdominal Exam GI & Abdominal Exam: Soft. absent: Tenderness - Exam Additional comments: patient has raw skin between buttocks; no visible or palpable abscess - Back Exam Back Exam: absent: CVA tenderness (L), CVA tenderness (R) - Neurological Exam Neurological Exam: Alert, Awake, Oriented x3 - Skin Skin Exam: Warm Assessment and Plan - Assessment and Plan (Free Text) Plan: Rectal Wound;chronic Afebrile, WBC WNL Long history of abscesses in this area ID consult, Dr. Daniel, help appreciated - Merrem 1gm IV q8H (Day 7) - D/C vancomycin Surgical consult, Dr. Taylor - no abscesses at site, will not follow, has signed off Decrease Dilaudid 1mg IV Q4H PRN for Pain; patient is highly dependent on high dose narcotics Wound culture (Back): E. coli - Prior admission Culture: Wound cultures (05/21/17): Pseudomonas aeruginosa, Citrobacter freundii, Staph aureus Blood cultures: no growth x 4days Urine Culture: No growth Wound care nurse consult, help appreciated - f/u recs Hematemesis - Resolved Admission to Tele No episodes since admission Hgb stable, no blood seen in colostomy bag Dr. Lopez consulted, help appreciated - Carafate 1gm PO QID NICOLETTE - recent endoscopy showing erosive esophagitis - avoid PO iron, use IV - signed off Crohn's Disease;chronic and uncontrolled Loop Colostomy (2015) Complicated by persistent abscesses Home med Delzicol 800mg PO Daily Loperamide 2mg PO TID PRN Vitamin C 500mg PO Daily Decrease Dilaudid 1mg IV Q4H PRN for Pain History of anemia Hgb stable, 12.4 today - D/C Feosol 325mg PO BID per GI Transaminitis AST/ALT 51/85 - mild elevation - attempting to decrease dilaudid dosage, pt resistant Anxiety Lexapro 5mg PO Daily Electrolyte abnormality Mg 1.6 repleted K 3.4 repleted f/u AM labs Prophylaxis Protonix 40mg PO daily Lovenox 30mg SC Daily SCDs Lactobacillus 1 cap PO BID Regular diet Shahriar Celis PGY-[address] Barrett
[2017-08-05] MEDS: Enoxaparin 30 mg Syringe SC SCH (11:00)
[2017-08-05] MEDS: Lactobacillus Acidophilus 500 MU Cap PO SCH ×2 (11:00→18:19)
[2017-08-05] MEDS: Pantoprazole 40 mg EC Tab PO SCH (11:00)
[2017-08-05] MEDS ORDERED: Magnesium Sulfate 1 gm in D5W 1 GM/100 ML BAG IVPB ONE (11:00)
[2017-08-05] MEDS: Multiple Vitamins Tab PO SCH (11:00)
[2017-08-05] MEDS: Sucralfate 1 gm/10 ml Oral Susp UD PO SCH ×4 (11:00→22:17)
[2017-08-05] MEDS: Potassium Chloride 20 mEq ER Tab PO SCH ×2 (11:30→15:53)
[2017-08-05] MEDS ORDERED: Potassium Chloride 20 mEq ER Tab PO SCH (15:45)
--- NOTE | 2017-08-05 19:34 | CP.PCM.PN ---
Subjective - Date & Time of Evaluation Date of Evaluation: 08/05/17 Time of Evaluation: 08:40 - Subjective Subjective: clinically same Objective - Vital Signs/Intake and Output Vital Signs (last 24 hours): Temp Pulse Resp BP Pulse Ox 98.3 F 122 H 20 116/79 97 08/05/17 15:32 08/05/17 15:32 08/05/17 15:32 08/05/17 15:32 08/05/17 15:32 Intake and Output: 08/05/17 08/06/17 18:59 06:59 Intake Total 250 Output Total 500 Balance -250 - Medications Medications: Current Medications Ascorbic Acid (Vitamin C 500 Mg Tab) 500 mg PO DAILY [facility] Last Admin: 08/05/17 11:00 Dose: 500 mg Cyanocobalamin (Vitamin B12 1000 Mcg Tab) 1,000 mcg PO DAILY [facility] Last Admin: 08/05/17 11:00 Dose: 1,000 mcg Diphenhydramine HCl (Benadryl) 25 mg IVP Q3H PRN PRN Reason: Itching / Pruritus Last Admin: 08/05/17 18:54 Dose: 25 mg Enoxaparin Sodium (Lovenox) 30 mg SC DAILY [facility] Last Admin: 08/05/17 11:00 Dose: 30 mg Escitalopram Oxalate (Lexapro) 5 mg PO DAILY [facility] Last Admin: 08/05/17 11:00 Dose: 5 mg Ferrous Sulfate (Feosol) 325 mg PO BID [facility] Last Admin: 07/31/17 10:02 Dose: 325 mg Hydromorphone HCl (Dilaudid) 1 mg IVP Q3H PRN PRN Reason: Pain, severe (8-10) Last Admin: 08/05/17 18:53 Dose: 1 mg Meropenem 1 gm/ Sodium (Chloride) 100 mls @ 100 mls/hr IVPB Q8 [facility] Stop: 08/08/17 14:01 Last Admin: 08/05/17 15:39 Dose: 100 mls/hr Lactobacillus Acidophilus (Bacid Acidophilus) 1 cap PO BID [facility] Last Admin: 08/05/17 18:19 Dose: 1 cap Loperamide HCl (Imodium) 2 mg PO TID PRN PRN Reason: Diarrhea Mesalamine (Delzicol) 800 mg PO DAILY [facility] Last Admin: 08/05/17 11:00 Dose: 800 mg Multivitamins (Hexavitamin) 1 tab PO DAILY [facility] Last Admin: 08/05/17 11:00 Dose: 1 tab Mupirocin (Bactroban Ointment) 0 gm TOP DAILY [facility] Last Admin: 08/05/17 14:00 Dose: 1 applic Pantoprazole Sodium (Protonix Ec Tab) 40 mg PO DAILY [facility] Last Admin: 08/05/17 11:00 Dose: 40 mg Sucralfate (Carafate Oral Susp) 1 gm PO QID [facility] Last Admin: 08/05/17 18:19 Dose: 1 gm - Labs Labs: 08/05/17 07:07 08/05/17 07:07 PT 11.6 SECONDS (9.7-12.2) 07/28/17 21:42 INR 1.0 07/28/17 21:42 APTT 21 SECONDS (21-34) 07/28/17 21:42 - Constitutional Appears: Well - Head Exam Head Exam: ATRAUMATIC, NORMAL INSPECTION, NORMOCEPHALIC - Eye Exam Eye Exam: EOMI, Normal appearance, PERRL Pupil Exam: NORMAL ACCOMODATION, PERRL - ENT Exam ENT Exam: Mucous Membranes Moist, Normal Exam - Neck Exam Neck Exam: Full ROM, Normal Inspection. absent: Lymphadenopathy - Respiratory Exam Respiratory Exam: Decreased Breath Sounds - Cardiovascular Exam Cardiovascular Exam: REGULAR RHYTHM, +S1, +S2 - GI/Abdominal Exam GI & Abdominal Exam: Soft, Diminished Bowel Sounds - Rectal Exam Rectal Exam: Deferred
[2017-08-06] MEDS: DiphenhydrAMINE 50 mg/ml Inj IVP PRN ×5 (01:16→14:40)
[2017-08-06] MEDS: HYDROmorphone 1 mg/ml ISec IVP PRN ×5 (01:16→14:41)
[2017-08-06 08:03] VITALS: BP 105/72; PULSE 86; TEMP 97.5; O2SAT 97
[2017-08-06 08:51] LABS: BASO # 0.1 K/uL (0.0-0.2); BASO % 0.6 % (0.0-2.0); EOS # 0.6 K/uL (0.0-0.7); EOS % 4.3 % (0.0-4.0); LYMPH # 4.6 K/uL (1.0-4.3); LYMPH % 33.1 % (20.0-40.0); MEAN CELL VOLUME 71.3 fL (80.0-94.0); MEAN CORPUSCULAR HEMOGLOBIN 22.3 pg (27.0-31.0); MEAN CORPUSCULAR HGB CONC 31.3 g/dL (33.0-37.0); MEAN PLATELET VOLUME 8.4 fL (7.2-11.7); MONO % 7.1 % (0.0-10.0); RED CELL DISTRIBUTION WIDTH 19.7 % (11.5-14.5)
[2017-08-06 08:54] LABS: ALB/GLOB RATIO 1.1 (1.0-2.1); ALKALINE PHOSPHATASE 112 U/L (38-126); ALT/SGPT 80 U/L (21-72); AST/SGOT 37 U/L (17-59); BILIRUBIN,TOTAL 0.3 mg/dL (0.2-1.3); BLOOD UREA NITROGEN 14 mg/dL (9-20); CALCIUM 8.1 mg/dl (8.6-10.4); CARBON DIOXIDE 31 mmol/L (22-30); CHLORIDE 101 mmol/L (98-107); GFR AFRICAN-AMERICAN > 60; GLUCOSE,RANDOM 77 mg/dL (75-110); MAGNESIUM 1.8 mg/dL (1.6-2.3); PHOSPHOROUS 3.1 mg/dL (2.5-4.5); POTASSIUM 3.9 mmol/L (3.6-5.2); SODIUM 139 mmol/L (132-148); TOTAL PROTEIN 7.2 g/dL (6.3-8.3)
--- NOTE | 2017-08-06 09:05 | CP.PCM.PN ---
Subjective - Date & Time of Evaluation Date of Evaluation: 08/06/17 Time of Evaluation: 09:06 - Subjective Subjective: PGY2 Medicine Note for Dr. Shiloh Barrett; all management as per Dr. Shiloh Barrett This patient was seen and examined at bedside this AM; he does not want to go home and states that his pain was not well controlled; he is upset that we will not be providing him with narcotic prescriptions but it was explained that we are not able to give him the high dose medications he desires as per [place] state law; he denies all other symptoms; the patient will be stable for d/c after wound care. patient was discharged at 9am however patient is refusing to let me take out his PICC line because he will "absolutely need his pain meds" which he 'can only get IV for his pain'. he states that his sister will not be here until 5pm , at the earliest to pick him up, and therefore is refusing to allow me to take out his PICC line because he desires "adequate pain control". Objective - Vital Signs/Intake and Output Vital Signs (last 24 hours): Temp Pulse Resp BP Pulse Ox 97.5 F L 86 20 105/72 97 08/06/17 08:02 08/06/17 08:02 08/06/17 08:02 08/06/17 08:02 08/06/17 08:02 Intake and Output: 08/06/17 08/06/17 06:59 18:59 Intake Total 580 460 Balance 580 460 - Medications Medications: Current Medications Ascorbic Acid (Vitamin C 500 Mg Tab) 500 mg PO DAILY [facility] Last Admin: 08/05/17 11:00 Dose: 500 mg Cyanocobalamin (Vitamin B12 1000 Mcg Tab) 1,000 mcg PO DAILY [facility] Last Admin: 08/05/17 11:00 Dose: 1,000 mcg Diphenhydramine HCl (Benadryl) 25 mg IVP Q3H PRN PRN Reason: Itching / Pruritus Last Admin: 08/06/17 07:59 Dose: 25 mg Enoxaparin Sodium (Lovenox) 30 mg SC DAILY [facility] Last Admin: 08/05/17 11:00 Dose: 30 mg Escitalopram Oxalate (Lexapro) 5 mg PO DAILY [facility] Last Admin: 08/05/17 11:00 Dose: 5 mg Ferrous Sulfate (Feosol) 325 mg PO BID [facility] Last Admin: 07/31/17 10:02 Dose: 325 mg Hydromorphone HCl (Dilaudid) 1 mg IVP Q3H PRN PRN Reason: Pain, severe (8-10) Last Admin: 08/06/17 08:00 Dose: 1 mg Meropenem 1 gm/ Sodium (Chloride) 100 mls @ 100 mls/hr IVPB Q8 [facility] Stop: 08/08/17 14:01 Last Admin: 08/06/17 06:03 Dose: 100 mls/hr Lactobacillus Acidophilus (Bacid Acidophilus) 1 cap PO BID [facility] Last Admin: 08/05/17 18:19 Dose: 1 cap Loperamide HCl (Imodium) 2 mg PO TID PRN PRN Reason: Diarrhea Mesalamine (Delzicol) 800 mg PO DAILY [facility] Last Admin: 08/05/17 11:00 Dose: 800 mg Multivitamins (Hexavitamin) 1 tab PO DAILY [facility] Last Admin: 08/05/17 11:00 Dose: 1 tab Mupirocin (Bactroban Ointment) 0 gm TOP DAILY [facility] Last Admin: 08/05/17 14:00 Dose: 1 applic Pantoprazole Sodium (Protonix Ec Tab) 40 mg PO DAILY [facility] Last Admin: 08/05/17 11:00 Dose: 40 mg Sucralfate (Carafate Oral Susp) 1 gm PO QID [facility] Last Admin: 08/05/17 22:17 Dose: 1 gm - Labs Labs: 08/06/17 08:15 08/06/17 08:15 PT 11.6 SECONDS (9.7-12.2) 07/28/17 21:42 INR 1.0 07/28/17 21:42 APTT 21 SECONDS (21-34) 07/28/17 21:42 - Constitutional Appears: Non-toxic - Head Exam Head Exam: ATRAUMATIC - Eye Exam Eye Exam: EOMI Pupil Exam: PERRL - ENT Exam ENT Exam: Mucous Membranes Moist - Neck Exam Neck Exam: Full ROM - Respiratory Exam Respiratory Exam: Clear to Ausculation Bilateral, NORMAL BREATHING PATTERN. absent: Rales, Rhonchi, Wheezes - Cardiovascular Exam Cardiovascular Exam: REGULAR RHYTHM - GI/Abdominal Exam GI & Abdominal Exam: Soft, Normal Bowel Sounds - Rectal Exam Additional comments: Gluteal folds somewhat raw; no johnathan pus - Extremities Exam Extremities Exam: Full ROM. absent: Calf Tenderness - Back Exam Back Exam: absent: CVA tenderness (L), CVA tenderness (R) - Neurological Exam Neurological Exam: Alert, Awake, Oriented x3 - Psychiatric Exam Psychiatric exam: Anxious - Skin Skin Exam: Warm Assessment and Plan - Assessment and Plan (Free Text) Assessment: Rectal Wound;chronic Afebrile, WBC WNL Long history of abscesses in this area ID consult, Dr. Daniel, help appreciated - Merrem 1gm IV q8H (Day 7) - D/C vancomycin Surgical consult, Dr. Taylor - no abscesses at site, will not follow, has signed off Decrease Dilaudid 1mg IV Q4H PRN for Pain; patient is highly dependent on high dose narcotics Wound culture (Back): E. coli - Prior admission Culture: Wound cultures (05/21/17): Pseudomonas aeruginosa, Citrobacter freundii, Staph aureus Blood cultures: no growth x 4days Urine Culture: No growth Wound care nurse consult, help appreciated -patient will be d/c on vantin 200mg PO BID for 10 days the patient is stable for d/c as per dr. Shiloh Barrett Hematemesis - Resolved Admission to Tele No episodes since admission Hgb stable, no blood seen in colostomy bag Dr. Lopez consulted, help appreciated - Carafate 1gm PO QID [facility] - recent endoscopy showing erosive esophagitis - avoid PO iron, use IV - signed off Crohn's Disease;chronic and uncontrolled Loop Colostomy (2015) Complicated by persistent abscesses Home med Delzicol 800mg PO Daily Loperamide 2mg PO TID PRN Vitamin C 500mg PO Daily Decrease Dilaudid 1mg IV Q4H PRN for Pain History of anemia Hgb stable, 12.4 today - D/C Feosol 325mg PO BID per GI Transaminitis AST/ALT 51/85 - mild elevation - attempting to decrease dilaudid dosage, pt resistant Anxiety Lexapro 5mg PO Daily Electrolyte abnormality Mg 1.6 repleted K 3.4 repleted f/u AM labs Prophylaxis Protonix 40mg PO daily Lovenox 30mg SC Daily SCDs Lactobacillus 1 cap PO BID Regular diet the patient will need to follow up with his PMD and GI doctor for his UC medications and treatments Please f/u with PMD within 7 days please f/u with your GI doctor within 7 days the patient will need to take 10 days of Vantin 200mg PO BID as per ID the patient is stable for d/c as per Dr. Shiloh Barrett We are unable to give the patient any pain medications discharged from the hospital as per [place] State Law; if he needs further pain management he needs to set up care with a pain management doctor; we are advising that he attempts to cut down his use of narcotics as he is exhibiting narcotic dependence All management per Dr. Barrett
[2017-08-06] MEDS: Enoxaparin 30 mg Syringe SC SCH (09:44)
[2017-08-06] MEDS: Pantoprazole 40 mg EC Tab PO SCH (09:44)
[2017-08-06] MEDS: Sucralfate 1 gm/10 ml Oral Susp UD PO SCH ×2 (09:44→14:40)
[2017-08-06] MEDS: Multiple Vitamins Tab PO SCH (09:44)
[2017-08-06] MEDS: Lactobacillus Acidophilus 500 MU Cap PO SCH (09:45)
== END 2017-08-06 17:03 | disposition home or self-care (01) | DRG 179 ==
LOC: C.ER 19:29 → SUPCPDRO 19:29 → C.9E 22:56 → C.6T 23:44 → C.5S 08-05 00:57
PROVIDERS: ADMIT Internal Medicine Nephrology; ATTEND Internal Medicine Nephrology
DX: K50.914 Crohn's disease, unspecified, with abscess (principal); K92.0 Hematemesis; K61.0 Anal abscess; L98.429 Non-pressure chronic ulcer of back with unspecified severity; Z93.3 Colostomy status; K29.60 Other gastritis without bleeding; K20.8 Other esophagitis; F41.9 Anxiety disorder, unspecified; B96.20 Unspecified Escherichia coli [E. coli] as the cause of diseases classified elsewhere

== ENCOUNTER 2017-08-12 19:22 | Inpatient (IN) | payer MEDICAID ==
[2017-08-12 19:23] VITALS: BMI 20.6
[2017-08-12] MEDS ORDERED: Sodium Chloride 0.9% 1,000 ML IV ONE ×2 (20:41→20:42)
[2017-08-12] MEDS ORDERED: DiphenhydrAMINE 50 mg/ml Inj IVP STA (20:43)
[2017-08-12] MEDS ORDERED: DiphenhydrAMINE 50 mg/ml Inj ONE (21:32)
[2017-08-12] MEDS ORDERED: Sodium Chloride 0.9% 1,000 ML ONE (21:33)
[2017-08-12 21:39] LABS: BASO # 0.1 K/uL (0.0-0.2); EOS # 0.3 K/uL (0.0-0.7); EOS % 2.7 % (0.0-4.0); HEMOGLOBIN 11.7 g/dL (12.0-18.0); LYMPH # 5.2 K/uL (1.0-4.3); LYMPH % 40.7 % (20.0-40.0); MEAN CELL VOLUME 70.5 fL (80.0-94.0); MEAN CORPUSCULAR HEMOGLOBIN 22.9 pg (27.0-31.0); MEAN CORPUSCULAR HGB CONC 32.5 g/dL (33.0-37.0); MEAN PLATELET VOLUME 8.2 fL (7.2-11.7); MONO # 0.6 K/uL (0.0-0.8); MONO % 4.7 % (0.0-10.0); NEUT # 6.5 K/uL (1.8-7.0); NEUT % 50.9 % (50.0-75.0); RBC 5.11 Mil/uL (4.40-5.90); RED CELL DISTRIBUTION WIDTH 18.9 % (11.5-14.5); WHITE BLOOD COUNT 12.7 K/uL (4.8-10.8)
[2017-08-12 21:43] LABS: ALB/GLOB RATIO 1.1 (1.0-2.1); ALBUMIN 3.9 g/dL (3.5-5.0); ALT/SGPT 87 U/L (21-72); AST/SGOT 50 U/L (17-59); BLOOD UREA NITROGEN 20 mg/dL (9-20); CALCIUM 8.9 mg/dl (8.6-10.4); GFR AFRICAN-AMERICAN > 60; GFR NON-AFRICAN AMERICAN > 60
[2017-08-12 22:00] LABS: PROTHROMBIN TIME 10.9 SECONDS (9.7-12.2)
--- NOTE | 2017-08-12 22:01 | C.PDOC ---
History Of Present Illness Patient is a 22 y/o male who presents to the ED with a complaint of hematemesis and a request for a place to stay. Patient has a PHx of the similar ED visits. Patient has chronic, painful perineal wounds; multiple recent admissions with consults. No other physical complaints at this time. Time Seen by Provider: 08/12/17 20:29 Chief Complaint (Nursing): Abnormal Skin Integrity History Per: Patient History/Exam Limitations: no limitations Onset/Duration Of Symptoms: Hrs Current Symptoms Are (Timing): Still Present Associated Symptoms: Hematemesis Recent travel outside of the [place]: No Past Medical History Reviewed: Historical Data, Nursing Documentation, Vital Signs Vital Signs: Last Vital Signs Temp 98.5 F 08/12/17 20:07 Pulse 98 H 08/12/17 20:07 Resp 20 08/12/17 20:07 BP 99/65 L 08/12/17 20:07 Pulse Ox 97 08/12/17 22:05 - Medical History PMH: Crohn's Disease (COLOSTOMY 2015), Depression Denies: Chronic Kidney Disease - [facility] Procedures DRAINAGE OF BACK SKIN, EXTERNAL APPROACH (06/22/17) DRAINAGE OF BACK SUBCU/FASCIA, OPEN APPROACH (10/21/16) DRAINAGE OF BUTTOCK SKIN, EXTERNAL APPROACH, DIAGNOSTIC (09/23/16) DRAINAGE OF BUTTOCK SUBCU/FASCIA, OPEN APPROACH (03/22/17) DRAINAGE OF BUTTOCK SUBCU/FASCIA, OPEN APPROACH, DIAGN (03/22/17) DRAINAGE OF LEFT AXILLA, OPEN APPROACH (12/21/16) DRAINAGE OF PERINEUM SKIN, EXTERNAL APPROACH (06/22/17) DRAINAGE OF PERINEUM SUBCU/FASCIA, OPEN APPROACH (01/30/17) EXCISION OF BACK SKIN, EXTERNAL APPROACH (09/23/16) EXCISION OF BACK SUBCU/FASCIA, OPEN APPROACH (10/21/16) EXCISION OF BUTTOCK SKIN, EXTERNAL APPROACH (03/22/17) EXCISION OF BUTTOCK SUBCU/FASCIA, OPEN APPROACH (10/21/16) EXCISION OF LEFT AXILLARY LYMPHATIC, OPEN APPROACH (12/21/16) EXCISION OF PERINEUM SKIN, EXTERNAL APPROACH (03/22/17) EXTRACTION OF BUTTOCK SKIN, EXTERNAL APPROACH (09/23/16) EXTRACTION OF PERINEUM SUBCU/FASCIA, OPEN APPROACH (01/30/17) GROUP PSYCHOTHERAPY (11/25/16) INDIVIDUAL PSYCHOTHERAPY, COGNITIVE-BEHAVIORAL (11/25/16) INDIVIDUAL PSYCHOTHERAPY, SUPPORTIVE (05/23/17) INSERTION OF INFUSION DEV INTO SUP VENA CAVA, PERC APPROACH (07/28/17) REMOVAL OF INFUSION DEV FROM GREAT VESSEL, INFRASTRUCTURE SOLUTIONS ARCHITECT APPROACH (12/21/16) REMOVAL OF RESERVOIR FROM TRUNK SUBCU/FASCIA, OPEN APPROACH (07/07/17) ULTRASONOGRAPHY OF SUPERIOR VENA CAVA, GUIDANCE (05/23/17) Family History: States: No Known Family Hx - Social History Hx Alcohol Use: Yes (SOCIAL) Hx Substance Use: No - Immunization History Hx Tetanus Toxoid Vaccination: No Hx Influenza Vaccination: Yes Hx Pneumococcal Vaccination: No Review Of Systems Constitutional: Negative for: Fever, Chills Gastrointestinal: Positive for: Hematemesis, Other (claims to still pass stool through rectum, but may be more consistent with oozing) Skin: Positive for: Other (chronic perineal wounds) Physical Exam - Physical Exam Appears: Non-toxic, In Acute Distress (moderate), Chronically Ill Skin: Normal Color, Warm, Dry Head: Atraumatic, Normacephalic Oral Mucosa: Moist Throat: Normal, Other (mouth/throat clear of blood) Chest: Symmetrical Cardiovascular: Rhythm Regular, No Murmur Respiratory: Normal Breath Sounds, No Rales, No Rhonchi, No Wheezing Gastrointestinal/Abdominal: Other (colostomy in LLQ) Neurological/Psych: Oriented x3, Normal Speech, Normal Cognition ED Course And Treatment - Laboratory Results Result Diagrams: 08/12/17 21:36 08/12/17 21:05 Lab Interpretation: Normal O2 Sat by Pulse Oximetry: 97 (room air) Pulse Ox Interpretation: Normal - Radiology CXR: Interpreted by Me CXR Interpretation: Yes: No Acute Disease Progress Note: dilaudid, Protonix IV, IVF. CXR, UA, urine screen ordered. Reevaluation Time: 22:02 Reassessment Condition: Improved - Physician Consult Information Outcome Of Conversation: 2200: d/w Dr. Eric Barrett, yvonne to admit. Medical Decision Making Medical Decision Making: ? hemoptysis, chronic pain, chronic perineal wounds no significant HGB drop Disposition Doctor Will See Patient In The: Hospital Counseled Patient/Family Regarding: Studies Performed, Diagnosis - Disposition Disposition: HOSPITALIZED Disposition Time: 22:04 Condition: GOOD - Clinical Impression Clinical Impression: Crohn disease, Hematemesis with nausea, Rectal pain - Scribe Statement The provider has reviewed the documentation as recorded by the Scribe Nydia Irving All medical record entries made by the Laneyibkenna were at my direction and personally dictated by me. I have reviewed the chart and agree that the record accurately reflects my personal performance of the history, physical exam, medical decision making, and the department course for this patient. I have also personally directed, reviewed, and agree with the discharge instructions and disposition.
[2017-08-13] MEDS: DiphenhydrAMINE 50 mg/ml Inj IVP PRN ×7 (00:43→22:00)
[2017-08-13] MEDS ORDERED: Vancomycin 1 gm/NS 200 ml 1 GM/200 ML BAG IVPB ONE (00:45)
[2017-08-13 02:26] LABS: BARBITURATES, UR NEGATIVE (NEGATIVE); BENZODIAZEPINES, UR NEGATIVE (NEGATIVE); PHENCYCLIDINE, UR NEGATIVE (NEGATIVE)
[2017-08-13 02:27] LABS: URINE BILIRUBIN NEGATIVE (NEGATIVE); URINE BLOOD NEGATIVE (NEGATIVE); URINE CLARITY Clear (Clear); URINE COLOR YELLOW (YELLOW); URINE GLUCOSE (UA) Normal (Normal); URINE PROTEIN NEGATIVE (NEGATIVE)
[2017-08-13 02:28] LABS: URINE AMORPHOUS SEDIMENT OCC /ul (<OCC); URINE LEUKOCYTE ESTERASE NEGATIVE Leu/uL (Negative); URINE NITRATE NEGATIVE (NEGATIVE); URINE UROBILINOGEN Normal mg/dL (0.2-1.0)
[2017-08-13 02:54] LABS: OPIATES, UR POSITIVE (NEGATIVE)
--- NOTE | 2017-08-13 08:29 | RAD ---
PROCEDURE: CHEST RADIOGRAPH, 1 VIEW HISTORY: GI Bleeding COMPARISON: 06/19/2017. FINDINGS: LUNGS: The lungs are well inflated and clear. PLEURA: No pneumothorax or pleural fluid seen. CARDIOVASCULAR: Normal. OSSEOUS STRUCTURES: No significant abnormalities. VISUALIZED UPPER ABDOMEN: Normal. OTHER FINDINGS: None. IMPRESSION: No active pulmonary disease.
--- NOTE | 2017-08-13 10:30 | CP.PCM.PN ---
Subjective - Date & Time of Evaluation Date of Evaluation: 08/13/17 Time of Evaluation: 10:23 - Subjective Subjective: Progress Note for Dr. Barrett's Service This is a 22-year-old male with history of Crohn's disease with reoccurring perianal ulcers/cellulitis presenting with worsening perianal/groin wounds. He has been operated on in the past by Dr. Faye. Patient was recently admitted from 06/22/17-06/24/17 for an abscess to the buttock area that was I&D by Dr. Taylor. He states that for the last few days his pain at this wound site has been unbearable. He confirms serosanguinous discharge from these sites and does not recall any purulence. This morning the patient was seen and examined at bedside. He continues to have pain at these sites. The pain medications we are providing do offer some relief. He denies F/C/N/V/CP/SOB. 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, stopped eliquis since May 2017 due to GI bleed Last colonoscopy 08/2016 PSHx COLOSTOMY 2016 I&D buttock abscess 05/2017 Multiple abscess draianges FamHx Father's sister had Crohn's SocHx Neg for smoke, drink, drug Allergies Morphine Meds Remicade Loperamid 2 TID PRN Lactobacillus acidophilus BID Feosol 325 BID B12 1000 Daily, Ascorbic Acid 500 daily Objective - Vital Signs/Intake and Output Vital Signs (last 24 hours): Temp Pulse Resp BP Pulse Ox 97.7 F 71 20 102/65 98 08/13/17 08:02 08/13/17 08:02 08/13/17 08:02 08/13/17 08:02 08/13/17 08:02 Intake and Output: 08/13/17 08/13/17 06:59 18:59 Output Total 200 Balance -200 - Medications Medications: Current Medications Diphenhydramine HCl (Benadryl) 25 mg IVP Q3H PRN PRN Reason: Allergy symptoms Hydromorphone HCl (Dilaudid) 1 mg IVP Q3H PRN PRN Reason: Pain, moderate (4-7) Cefepime HCl 1 gm/ Dextrose 50 mls @ 100 mls/hr IVPB Q12H [facility] Ondansetron HCl (Zofran Inj) 4 mg IVP Q8 PRN PRN Reason: Nausea/Vomiting - Labs Labs: 08/12/17 21:36 08/12/17 21:05 PT 10.9 SECONDS (9.7-12.2) 08/12/17 21:31 INR 1.0 08/12/17 21:31 APTT 24 SECONDS (21-34) 08/12/17 21:31 - Constitutional Appears: No Acute Distress - Head Exam Head Exam: ATRAUMATIC, NORMOCEPHALIC - Eye Exam Eye Exam: EOMI - ENT Exam ENT Exam: Mucous Membranes Moist - Respiratory Exam Respiratory Exam: Clear to Ausculation Bilateral. absent: Rales, Rhonchi, Wheezes - Cardiovascular Exam Cardiovascular Exam: REGULAR RHYTHM, +S1, +S2 - GI/Abdominal Exam GI & Abdominal Exam: Soft. absent: Tenderness Additional comments: s/p colostomy - Extremities Exam Extremities Exam: Normal Capillary Refill. absent: Pedal Edema - Neurological Exam Neurological Exam: Alert, Awake, Oriented x3 - Skin Additional comments: Multiple wounds perianal and in the groin skin breakdown- serosanguineous discharge noted + erythema Assessment and Plan - Assessment and Plan (Free Text) Plan: Rectal Wound- chronic Afebrile Mildly elevated WBC- 12.7 Surgical consult, Dr. Taylor ID consult, Dr. Rider Dilaudid 1mg IV Q3H PRN for Pain- given with Benadryl due to morphine allergy - Prior admission Culture: Wound cultures (05/21/17): Pseudomonas aeruginosa, Citrobacter freundii, Staph aureus Wound care nurse consult, help appreciated - f/u recs Given one dose of Vancomycin overnight Cefepime 1g IV q12hrs (started 08/13) follow up urine c/s follow up blood cx PICC line ordered 08/13 Crohn's Disease;chronic and uncontrolled Loop Colostomy (2015) Complicated by persistent abscesses Home med Delzicol 800mg PO Daily History of anemia Hgb stable, 11.7 today Transaminitis- mild AST/ALT 50/87 Will continue to monitor Anxiety Lexapro 5mg PO Daily? Electrolyte abnormality Mg 1.6 repleted K 3.4 repleted f/u AM labs Prophylaxis Zofran 4mg IV q8hrs prn Protonix SCD Case discussed with Dr. Barrett All management as per Dr. Barrett
--- NOTE | 2017-08-13 16:34 | CP.PCM.CON ---
History of Present Illness - History of Present Illness History of Present Illness: dictated Past Patient History - Infectious Disease Hx of Infectious Diseases: None - Past Medical History & Family History Past Medical History?: Yes - Past Social History Smoking Status: Never Smoked - CARDIAC Hx Cardiac Disorders: No - PULMONARY Hx Respiratory Disorders: No - NEUROLOGICAL Hx Neurological Disorder: No - HEENT Hx HEENT Problems: No - RENAL Hx Chronic Kidney Disease: No - ENDOCRINE/METABOLIC Hx Endocrine Disorders: No - HEMATOLOGICAL/ONCOLOGICAL Hx Blood Disorders: No - INTEGUMENTARY Hx Dermatological Problems: Yes Other/Comment: Perineal wound. Rectal abcess - MUSCULOSKELETAL/RHEUMATOLOGICAL Hx Falls: Yes - GASTROINTESTINAL Hx Crohn's Disease: Yes (COLOSTOMY 2016) - GENITOURINARY/GYNECOLOGICAL Hx Genitourinary Disorders: No - PSYCHIATRIC Hx Depression: Yes Hx Substance Use: No - SURGICAL HISTORY Hx Surgeries: Yes (SEE COMMENT) Other/Comment: LOOP COLOSTOMY. Perineal wound. COLON RESECTION - ANESTHESIA Hx Anesthesia: Yes Hx Anesthesia Reactions: No Hx Malignant Hyperthermia: No Meds Allergies/Adverse Reactions: Allergies Allergy/AdvReac Type Severity Reaction Status Date / Time morphine Allergy Severe ITCHING Verified 07/28/17 19:33 - Medications Medications: Current Medications Diphenhydramine HCl (Benadryl) 25 mg IVP Q3H PRN PRN Reason: Allergy symptoms Last Admin: 08/13/17 15:53 Dose: 25 mg Hydromorphone HCl (Dilaudid) 1 mg IVP Q3H PRN PRN Reason: Pain, moderate (4-7) Last Admin: 08/13/17 15:54 Dose: 1 mg Cefepime HCl 1 gm/ Dextrose 50 mls @ 100 mls/hr IVPB Q12H [facility] Last Admin: 08/13/17 12:50 Dose: 100 mls/hr Ondansetron HCl (Zofran Inj) 4 mg IVP Q8 PRN PRN Reason: Nausea/Vomiting Results - Vital Signs Recent Vital Signs: Last Vital Signs Temp 97.7 F 08/13/17 08:02 Pulse 71 08/13/17 08:02 Resp 20 08/13/17 08:02 BP 102/65 08/13/17 08:02 Pulse Ox 98 08/13/17 08:02 - Labs Result Diagrams: 08/12/17 21:36 08/12/17 21:05 Labs: Laboratory Results - last 24 hr 08/12/17 08/12/17 08/12/17 21:05 21:05 21:31 WBC RBC Hgb Hct MCV MCH MCHC RDW Plt Count MPV Neut % (Auto) Lymph % (Auto) [place] % (Auto) Eos % (Auto) Baso % (Auto) Neut # Lymph # [place] # Eos # Baso # PT 10.9 INR 1.0 APTT 24 Sodium 133 Potassium 5.1 Chloride 101 Carbon Dioxide 24 Anion Gap 13 BUN 20 Creatinine 0.6 L Est GFR ( Amer) > 60 Est GFR (Non-Af Amer) > 60 Random Glucose 94 Calcium 8.9 Total Bilirubin 0.7 AST 50 ALT 87 H Alkaline Phosphatase 95 Total Protein 7.4 Albumin 3.9 Globulin 3.5 Albumin/Globulin Ratio 1.1 Urine Color Urine Clarity Urine pH Ur Specific [place] Urine Protein Urine Glucose (UA) Urine Ketones Urine Blood Urine Nitrate Urine Bilirubin Urine Urobilinogen Ur Leukocyte Esterase Urine WBC (Auto) Urine RBC (Auto) Amorphous Sediment Urine Opiates Screen Urine Methadone Screen Ur Barbiturates Screen Ur Phencyclidine Scrn Ur Amphetamines Screen U Benzodiazepines Scrn U Oth Cocaine Metabols U Cannabinoids Screen Blood Type B POSITIVE Antibody Screen Negative 08/12/17 08/13/17 08/13/17 21:36 02:06 02:06 WBC 12.7 H RBC 5.11 Hgb 11.7 L Hct 36.0 MCV 70.5 L MCH 22.9 L MCHC 32.5 L RDW 18.9 H Plt Count 386 MPV 8.2 Neut % (Auto) 50.9 Lymph % (Auto) 40.7 H [place] % (Auto) 4.7 Eos % (Auto) 2.7 Baso % (Auto) 1.0 Neut # 6.5 Lymph # 5.2 H [place] # 0.6 Eos # 0.3 Baso # 0.1 PT INR APTT Sodium Potassium Chloride Carbon Dioxide Anion Gap BUN Creatinine Est GFR ( Amer) Est GFR (Non-Af Amer) Random Glucose Calcium Total Bilirubin AST ALT Alkaline Phosphatase Total Protein Albumin Globulin Albumin/Globulin Ratio Urine Color Yellow Urine Clarity Clear Urine pH 7.0 Ur Specific [place] 1.015 Urine Protein Negative Urine Glucose (UA) Normal Urine Ketones Negative Urine Blood Negative Urine Nitrate Negative Urine Bilirubin Negative Urine Urobilinogen Normal Ur Leukocyte Esterase Negative Urine WBC (Auto) < 1 Urine RBC (Auto) < 1 Amorphous Sediment Occ H Urine Opiates Screen Positive H Urine Methadone Screen Negative Ur Barbiturates Screen Negative Ur Phencyclidine Scrn Negative Ur Amphetamines Screen Negative U Benzodiazepines Scrn Negative U Oth Cocaine Metabols Negative U Cannabinoids Screen Positive H Blood Type Antibody Screen
--- NOTE | 2017-08-13 16:51 | CP.PCM.HP ---
Past Patient History - Infectious Disease Hx of Infectious Diseases: None - Past Medical History & Family History Past Medical History?: Yes - Past Social History Smoking Status: Never Smoked - CARDIAC Hx Cardiac Disorders: No - PULMONARY Hx Respiratory Disorders: No - NEUROLOGICAL Hx Neurological Disorder: No - HEENT Hx HEENT Problems: No - RENAL Hx Chronic Kidney Disease: No - ENDOCRINE/METABOLIC Hx Endocrine Disorders: No - HEMATOLOGICAL/ONCOLOGICAL Hx Blood Disorders: No - INTEGUMENTARY Hx Dermatological Problems: Yes Other/Comment: Perineal wound. Rectal abcess - MUSCULOSKELETAL/RHEUMATOLOGICAL Hx Falls: Yes - GASTROINTESTINAL Hx Crohn's Disease: Yes (COLOSTOMY 2016) - GENITOURINARY/GYNECOLOGICAL Hx Genitourinary Disorders: No - PSYCHIATRIC Hx Depression: Yes Hx Substance Use: No - SURGICAL HISTORY Hx Surgeries: Yes (SEE COMMENT) Other/Comment: LOOP COLOSTOMY. Perineal wound. COLON RESECTION - ANESTHESIA Hx Anesthesia: Yes Hx Anesthesia Reactions: No Hx Malignant Hyperthermia: No Meds Allergies/Adverse Reactions: Allergies Allergy/AdvReac Type Severity Reaction Status Date / Time morphine Allergy Severe ITCHING Verified 07/28/17 19:33 Physical Exam - Constitutional Appears: Well - Head Exam Head Exam: ATRAUMATIC, NORMAL INSPECTION, NORMOCEPHALIC - Eye Exam Eye Exam: EOMI, Normal appearance, PERRL Pupil Exam: NORMAL ACCOMODATION, PERRL - ENT Exam ENT Exam: Mucous Membranes Moist, Normal Exam - Neck Exam Neck exam: Positive for: Normal Inspection - Respiratory Exam Respiratory Exam: Decreased Breath Sounds - Cardiovascular Exam Cardiovascular Exam: REGULAR RHYTHM, +S1, +S2 - GI/Abdominal Exam GI & Abdominal Exam: Diminished Bowel Sounds, Soft - Rectal Exam Rectal Exam: Deferred Results - Vital Signs Recent Vital Signs: Last Vital Signs Temp 97.9 F 08/13/17 16:40 Pulse 83 08/13/17 16:40 Resp 20 08/13/17 16:40 BP 111/72 08/13/17 16:40 Pulse Ox 96 08/13/17 16:40 - Labs Result Diagrams: 08/12/17 21:36 08/12/17 21:05 Labs: Laboratory Results - last 24 hr 08/12/17 08/12/17 08/12/17 21:05 21:05 21:31 WBC RBC Hgb Hct MCV MCH MCHC RDW Plt Count MPV Neut % (Auto) Lymph % (Auto) [place] % (Auto) Eos % (Auto) Baso % (Auto) Neut # Lymph # [place] # Eos # Baso # PT 10.9 INR 1.0 APTT 24 Sodium 133 Potassium 5.1 Chloride 101 Carbon Dioxide 24 Anion Gap 13 BUN 20 Creatinine 0.6 L Est GFR ( Amer) > 60 Est GFR (Non-Af Amer) > 60 Random Glucose 94 Calcium 8.9 Total Bilirubin 0.7 AST 50 ALT 87 H Alkaline Phosphatase 95 Total Protein 7.4 Albumin 3.9 Globulin 3.5 Albumin/Globulin Ratio 1.1 Urine Color Urine Clarity Urine pH Ur Specific [place] Urine Protein Urine Glucose (UA) Urine Ketones Urine Blood Urine Nitrate Urine Bilirubin Urine Urobilinogen Ur Leukocyte Esterase Urine WBC (Auto) Urine RBC (Auto) Amorphous Sediment Urine Opiates Screen Urine Methadone Screen Ur Barbiturates Screen Ur Phencyclidine Scrn Ur Amphetamines Screen U Benzodiazepines Scrn U Oth Cocaine Metabols U Cannabinoids Screen Blood Type B POSITIVE Antibody Screen Negative 08/12/17 08/13/17 08/13/17 21:36 02:06 02:06 WBC 12.7 H RBC 5.11 Hgb 11.7 L Hct 36.0 MCV 70.5 L MCH 22.9 L MCHC 32.5 L RDW 18.9 H Plt Count 386 MPV 8.2 Neut % (Auto) 50.9 Lymph % (Auto) 40.[address] [place] % (Auto) 4.7 Eos % (Auto) 2.7 Baso % (Auto) 1.0 Neut # 6.5 Lymph # 5.[address] [place] # 0.6 Eos # 0.3 Baso # 0.1 PT INR APTT Sodium Potassium Chloride Carbon Dioxide Anion Gap BUN Creatinine Est GFR ( Amer) Est GFR (Non-Af Amer) Random Glucose Calcium Total Bilirubin AST ALT Alkaline Phosphatase Total Protein Albumin Globulin Albumin/Globulin Ratio Urine Color Yellow Urine Clarity Clear Urine pH 7.0 Ur Specific [place] 1.015 Urine Protein Negative Urine Glucose (UA) Normal Urine Ketones Negative Urine Blood Negative Urine Nitrate Negative Urine Bilirubin Negative Urine Urobilinogen Normal Ur Leukocyte Esterase Negative Urine WBC (Auto) < 1 Urine RBC (Auto) < 1 Amorphous Sediment Occ H Urine Opiates Screen Positive H Urine Methadone Screen Negative Ur Barbiturates Screen Negative Ur Phencyclidine Scrn Negative Ur Amphetamines Screen Negative U Benzodiazepines Scrn Negative U Oth Cocaine Metabols Negative U Cannabinoids Screen Positive H Blood Type Antibody Screen
[2017-08-13] MEDS ORDERED: Vancomycin 1 gm/NS 200 ml 1 GM/200 ML BAG IVPB SCH (22:00)
[2017-08-13] MEDS: metroNIDAZOLE IV 500 mg/100 ml 500 MG/100 ML BAG IVPB SCH (22:03)
--- NOTE | 2017-08-13 22:03 | CON ---
HISTORY OF PRESENT ILLNESS: The patient has been multiple times here. At this time, he comes back with presented to the hospital with a complaint of hematemesis and he has been also complaining of having blood and fecal discharge from the perianal wounds and he says he is not able to walk even and complains that it did not improve. He needs to see the surgeon and he did have Remicade on 07/26/2017, he says and he is admitted with a skin perineal ulcerations, which are bothering him. He is unable to ambulate. However, in the ER, he was not found to have any temp. He also says he is in a lot of pain and unable to ambulate. PAST MEDICAL HISTORY: Significant for Crohn's disease, chronic kidney disease and depression. He has had multiple admissions, the last admission was here on 06/22/2017. FAMILY HISTORY: Noncontributory. SOCIAL HISTORY: Negative for smoking or drinking or any drug abuse, but he is on hydromorphone as he is allergic to morphine. REVIEW OF SYSTEMS: Had no fever, no chills. Has hematemesis and also has stool from the rectum, even though he has a colostomy with oozing and serosanguineous discharge from the perirectal area. PHYSICAL EXAMINATION: GENERAL: He is awake, alert, able to give history. VITAL SIGNS: I find his temperature was 97.9 today, pulse 83, blood pressure 111/72, respirations are 20. HEENT: Head is atraumatic, normocephalic. Pupils are reacting to light. Tongue is moist. NECK: Supple. JVP is flat. LUNGS: Clear. No crackles or rales heard. HEART: S1, S2 is regular. ABDOMEN: Soft. Colostomy is present in the left lower quadrant. No guarding. No rigidity present. SKIN: He does have severe excoriation of the skin between the two buttocks, which extends interiorly and there is drainage from it, which is foul smelling and serosanguineous and it is painful for him to spread his legs. LABORATORY DATA: Labs are noted. Labs show white count is 12.7, hemoglobin 11.7, hematocrit is 36, platelet count is 389. Sodium is 133, potassium 5.1, chloride is 101, CO2 is 24, BUN is 20, creatinine 0.6. ASSESSMENT: This patient is admitted with hemoptysis, chronic perineal wounds which are not healing and having serosanguineous discharge from there. PLAN: Plan is to put him on Maxipime and also I will add Flagyl and get a wound culture and he will also need to have vitamins to improve his skin integrity and we will follow. Santosh Daniel MD
[2017-08-14] MEDS: DiphenhydrAMINE 50 mg/ml Inj IVP PRN ×7 (01:07→23:10)
[2017-08-14] MEDS: metroNIDAZOLE IV 500 mg/100 ml 500 MG/100 ML BAG IVPB SCH ×3 (06:41→21:00)
[2017-08-14] MEDS: Multivitamin Vitamin B Complex (Nephro-Vite) Tab PO SCH (08:23)
[2017-08-14 08:50] LABS: ALB/GLOB RATIO 0.8 (1.0-2.1); ALBUMIN 3.7 g/dL (3.5-5.0); ALT/SGPT 74 U/L (21-72); AST/SGOT 50 U/L (17-59); BLOOD UREA NITROGEN 13 mg/dL (9-20); CALCIUM 9.2 mg/dl (8.6-10.4); GFR AFRICAN-AMERICAN > 60; GFR NON-AFRICAN AMERICAN > 60
--- NOTE | 2017-08-14 09:47 | CP.PCM.PN ---
Subjective - Date & Time of Evaluation Date of Evaluation: 08/14/17 Time of Evaluation: 09:45 - Subjective Subjective: PGY2 medicine progress note for Dr. Barrett's service Patient seen and examined. Patient reports soft bowel movements per rectum as well as in colostomy. Patient reports having loop colostomy. Patient reports frequent vomiting as well. He states perineal wounds have been draining and are painful. Objective - Vital Signs/Intake and Output Vital Signs (last 24 hours): Temp Pulse Resp BP Pulse Ox 97.8 F 74 20 103/64 96 08/14/17 08:03 08/14/17 00:00 08/14/17 08:03 08/14/17 08:03 08/14/17 08:03 Intake and Output: 08/14/17 08/14/17 06:59 18:59 Intake Total 600 Output Total 1100 Balance -500 - Medications Medications: Current Medications Artificial Tears (Artificial Tears) 0.1 ml OU BID PRN PRN Reason: Dry eyes Cyanocobalamin (Vitamin B12 1000 Mcg Tab) 1,000 mcg PO DAILY [facility] Diphenhydramine HCl (Benadryl) 25 mg IVP Q3H PRN PRN Reason: Allergy symptoms Last Admin: 08/14/17 08:23 Dose: 25 mg Hydromorphone HCl (Dilaudid) 1 mg IVP Q3H PRN PRN Reason: Pain, moderate (4-7) Last Admin: 08/14/17 08:21 Dose: 1 mg Cefepime HCl 1 gm/ Dextrose 50 mls @ 100 mls/hr IVPB Q12H [facility] Last Admin: 08/14/17 00:06 Dose: 100 mls/hr Metronidazole (Flagyl) 500 mg in 100 mls @ 100 mls/hr IVPB Q8 [facility] Last Admin: 08/14/17 06:41 Dose: 100 mls/hr Vancomycin/Sodium Chloride (Vancomycin 1 Gm/Ns 200 Ml) 1 gm in 200 mls @ 133 mls/hr IVPB Q24H [facility] Stop: 08/18/17 22:01 Last Admin: 08/14/17 00:07 Dose: 133 mls/hr Ondansetron HCl (Zofran Inj) 4 mg IVP Q8 PRN PRN Reason: Nausea/Vomiting Vitamin B Complex/Vit C/Folic Acid (Nephro-Fidelia) 1 tab PO 0800 [facility] Last Admin: 08/14/17 08:23 Dose: 1 tab - Labs Labs: 08/12/17 21:36 08/14/17 07:26 PT 10.9 SECONDS (9.7-12.2) 08/12/17 21:31 INR 1.0 08/12/17 21:31 APTT 24 SECONDS (21-34) 08/12/17 21:31 - Constitutional Appears: No Acute Distress - Head Exam Head Exam: ATRAUMATIC, NORMOCEPHALIC - Eye Exam Additional comments: dry rheum bilaterally - ENT Exam ENT Exam: Mucous Membranes Moist - Respiratory Exam Respiratory Exam: Clear to Ausculation Bilateral, NORMAL BREATHING PATTERN - Cardiovascular Exam Cardiovascular Exam: +S1, +S2 - GI/Abdominal Exam GI & Abdominal Exam: Soft. absent: Tenderness Additional comments: left sided colosotmy with soft brown stool, partially digested food material - Rectal Exam Additional comments: ulcer in gluteal cleft - Extremities Exam Extremities Exam: Normal Inspection - Neurological Exam Neurological Exam: Alert, Awake - Skin Skin Exam: Warm Assessment and Plan - Assessment and Plan (Free Text) Assessment: Rectal Wound- chronic Afebrile 08/13/17- Mildly elevated WBC- 12.7 Surgical consult, Dr. Taylor ID consult, Dr. Daniel Dilaudid 1mg IV Q3H PRN for Pain- given with Benadryl due to morphine allergy - Prior admission Culture: Wound cultures (05/21/17): Pseudomonas aeruginosa, Citrobacter freundii, Staph aureus Wound care nurse consult, help appreciated - f/u recs vancomycin 1g q24h Cefepime 1g IV q12hrs (started 08/13) follow up urine c/s follow up blood cx PICC line ordered 08/13 Crohn's Disease;chronic and uncontrolled Loop Colostomy (2015) Complicated by persistent abscesses Home med Delzicol 800mg PO Daily (non-formulary here) History of anemia 08/13/17- Hgb stable, 11.7 today Transaminitis- mild AST/ALT 50/74 Will continue to monitor Anxiety Lexapro 5mg PO Daily Electrolyte abnormality continue to monitor and replete Prophylaxis Zofran 4mg IV q8hrs prn Protonix SCD artificial tears for dry eyes Case discussed with Dr. Barrett All management as per Dr. Barrett
--- NOTE | 2017-08-14 11:29 | RAD ---
HISTORY: verify left PICC COMPARISON: 08/12/2017. FINDINGS: The left PICC line terminates at the cavoatrial junction LUNGS: The lungs are clear. PLEURA: No significant pleural effusion identified, no pneumothorax apparent. CARDIOVASCULAR: Normal. OSSEOUS STRUCTURES: No significant abnormalities. VISUALIZED UPPER ABDOMEN: Normal. OTHER FINDINGS: None. IMPRESSION: Left PICC line terminates at the cavoatrial junction. No acute findings.
[2017-08-14] MEDS ORDERED: metroNIDAZOLE IV 500 mg/100 ml 500 MG/100 ML BAG IVPB SCH (15:00)
[2017-08-14 15:26] LABS: BASO # 0.1 K/uL (0.0-0.2); BASO % 0.5 % (0.0-2.0); EOS # 0.5 K/uL (0.0-0.7); EOS % 4.5 % (0.0-4.0); HEMOGLOBIN 11.4 g/dL (12.0-18.0); LYMPH # 3.7 K/uL (1.0-4.3); MEAN CELL VOLUME 69.8 fL (80.0-94.0); MEAN CORPUSCULAR HEMOGLOBIN 22.4 pg (27.0-31.0); MEAN CORPUSCULAR HGB CONC 32.1 g/dL (33.0-37.0); MEAN PLATELET VOLUME 8.2 fL (7.2-11.7); MONO # 0.6 K/uL (0.0-0.8); MONO % 5.1 % (0.0-10.0); NEUT # 6.6 K/uL (1.8-7.0); NEUT % 57.9 % (50.0-75.0); NRBC % 0.1 % (0.0-2.0); RBC 5.1 Mil/uL (4.40-5.90); RED CELL DISTRIBUTION WIDTH 18.5 % (11.5-14.5); WHITE BLOOD COUNT 11.5 K/uL (4.8-10.8)
--- NOTE | 2017-08-14 21:28 | CP.PCM.PN ---
Subjective - Date & Time of Evaluation Date of Evaluation: 08/14/17 Time of Evaluation: 10:00 - Subjective Subjective: clinically same Objective - Vital Signs/Intake and Output Vital Signs (last 24 hours): Temp Pulse Resp BP Pulse Ox 98.3 F 84 20 106/73 96 08/14/17 15:57 08/14/17 15:57 08/14/17 15:57 08/14/17 15:57 08/14/17 15:57 Intake and Output: 08/14/17 08/15/17 18:59 06:59 Intake Total 480 Balance 480 - Medications Medications: Current Medications Artificial Tears (Artificial Tears) 0.1 ml OU BID PRN PRN Reason: Dry eyes Cyanocobalamin (Vitamin B12 1000 Mcg Tab) 1,000 mcg PO DAILY [facility] Last Admin: 08/14/17 10:41 Dose: 1,000 mcg Diphenhydramine HCl (Benadryl) 25 mg IVP Q3H PRN PRN Reason: Allergy symptoms Last Admin: 08/14/17 20:08 Dose: 25 mg Escitalopram Oxalate (Lexapro) 5 mg PO DAILY [facility] Hydromorphone HCl (Dilaudid) 1 mg IVP Q3H PRN PRN Reason: Pain, moderate (4-7) Last Admin: 08/14/17 20:09 Dose: 1 mg Cefepime HCl 1 gm/ Dextrose 50 mls @ 100 mls/hr IVPB Q12H [facility] Last Admin: 08/14/17 11:43 Dose: 100 mls/hr Metronidazole (Flagyl) 500 mg in 100 mls @ 100 mls/hr IVPB Q8H [facility] Last Admin: 08/14/17 21:00 Dose: 100 mls/hr Vancomycin HCl 1 gm/ Sodium (Chloride) 250 mls @ 166.667 mls/hr IVPB Q24H [facility] Stop: 08/18/17 22:01 Mesalamine (Delzicol) 400 mg PO TID [facility] Last Admin: 08/14/17 17:36 Dose: 400 mg Ondansetron HCl (Zofran Inj) 4 mg IVP Q8 PRN PRN Reason: Nausea/Vomiting Vitamin B Complex/Vit C/Folic Acid (Nephro-Fidelia) 1 tab PO 0800 [facility] Last Admin: 08/14/17 08:23 Dose: 1 tab - Labs Labs: 08/14/17 15:08 08/14/17 07:26 PT 10.9 SECONDS (9.7-12.2) 08/12/17 21:31 INR 1.0 08/12/17 21:31 APTT 24 SECONDS (21-34) 08/12/17 21:31 - Constitutional Appears: Well - Head Exam Head Exam: ATRAUMATIC, NORMAL INSPECTION, NORMOCEPHALIC - Eye Exam Eye Exam: EOMI, Normal appearance, PERRL Pupil Exam: NORMAL ACCOMODATION, PERRL - ENT Exam ENT Exam: Mucous Membranes Moist, Normal Exam - Neck Exam Neck Exam: Full ROM, Normal Inspection. absent: Lymphadenopathy - Respiratory Exam Respiratory Exam: Decreased Breath Sounds - Cardiovascular Exam Cardiovascular Exam: REGULAR RHYTHM, +S1, +S2 - GI/Abdominal Exam GI & Abdominal Exam: Soft, Diminished Bowel Sounds - Rectal Exam Rectal Exam: Deferred
[2017-08-15] MEDS: DiphenhydrAMINE 50 mg/ml Inj IVP PRN ×7 (02:20→21:17)
[2017-08-15] MEDS: metroNIDAZOLE IV 500 mg/100 ml 500 MG/100 ML BAG IVPB SCH ×3 (05:42→21:16)
[2017-08-15 08:27] LABS: BASO # 0.1 K/uL (0.0-0.2); BASO % 0.6 % (0.0-2.0); EOS # 0.8 K/uL (0.0-0.7); EOS % 6.3 % (0.0-4.0); HEMOGLOBIN 11.7 g/dL (12.0-18.0); LYMPH # 5.1 K/uL (1.0-4.3); LYMPH % 37.7 % (20.0-40.0); MEAN CELL VOLUME 70.3 fL (80.0-94.0); MEAN CORPUSCULAR HEMOGLOBIN 22.5 pg (27.0-31.0); MEAN CORPUSCULAR HGB CONC 32.1 g/dL (33.0-37.0); MEAN PLATELET VOLUME 8.6 fL (7.2-11.7); MONO # 0.9 K/uL (0.0-0.8); MONO % 6.9 % (0.0-10.0); NEUT # 6.5 K/uL (1.8-7.0); NEUT % 48.5 % (50.0-75.0); RBC 5.19 Mil/uL (4.40-5.90); RED CELL DISTRIBUTION WIDTH 18.7 % (11.5-14.5); WHITE BLOOD COUNT 13.4 K/uL (4.8-10.8)
[2017-08-15] MEDS: Multivitamin Vitamin B Complex (Nephro-Vite) Tab PO SCH (08:58)
[2017-08-15 09:54] LABS: ALB/GLOB RATIO 0.9 (1.0-2.1); ALBUMIN 4.2 g/dL (3.5-5.0); ALT/SGPT 80 U/L (21-72); AST/SGOT 38 U/L (17-59); BLOOD UREA NITROGEN 12 mg/dL (9-20); CALCIUM 10.8 mg/dl (8.6-10.4); GFR AFRICAN-AMERICAN > 60; GFR NON-AFRICAN AMERICAN > 60
--- NOTE | 2017-08-15 15:34 | CP.PCM.PN ---
Subjective - Date & Time of Evaluation Date of Evaluation: 08/15/17 Time of Evaluation: 10:00 - Subjective Subjective: clinically same Objective - Vital Signs/Intake and Output Vital Signs (last 24 hours): Temp Pulse Resp BP Pulse Ox 97.3 F L 86 18 119/76 100 08/15/17 07:50 08/15/17 07:50 08/15/17 07:50 08/15/17 07:50 08/15/17 07:50 Intake and Output: 08/15/17 08/15/17 06:59 18:59 Intake Total 1050 Output Total 500 Balance 550 - Medications Medications: Current Medications Artificial Tears (Artificial Tears) 0.1 ml OU BID PRN PRN Reason: Dry eyes Cyanocobalamin (Vitamin B12 1000 Mcg Tab) 1,000 mcg PO DAILY [facility] Last Admin: 08/15/17 09:24 Dose: 1,000 mcg Diphenhydramine HCl (Benadryl) 25 mg IVP Q3H PRN PRN Reason: Allergy symptoms Last Admin: 08/15/17 15:02 Dose: 25 mg Escitalopram Oxalate (Lexapro) 5 mg PO DAILY [facility] Last Admin: 08/15/17 09:24 Dose: 5 mg Hydromorphone HCl (Dilaudid) 1 mg IVP Q3H PRN PRN Reason: Pain, moderate (4-7) Last Admin: 08/15/17 15:03 Dose: 1 mg Cefepime HCl 1 gm/ Dextrose 50 mls @ 100 mls/hr IVPB Q12H [facility] Last Admin: 08/15/17 12:00 Dose: 100 mls/hr Metronidazole (Flagyl) 500 mg in 100 mls @ 100 mls/hr IVPB Q8H [facility] Last Admin: 08/15/17 13:34 Dose: 100 mls/hr Vancomycin HCl 1 gm/ Sodium (Chloride) 250 mls @ 166.667 mls/hr IVPB Q24H [facility] Stop: 08/18/17 22:01 Last Admin: 08/14/17 22:05 Dose: 166.667 mls/hr Mesalamine (Delzicol) 400 mg PO TID [facility] Last Admin: 08/15/17 13:33 Dose: 400 mg Ondansetron HCl (Zofran Inj) 4 mg IVP Q8 PRN PRN Reason: Nausea/Vomiting Vitamin B Complex/Vit C/Folic Acid (Nephro-Fidelia) 1 tab PO 0800 [facility] Last Admin: 08/15/17 08:58 Dose: 1 tab - Labs Labs: 08/15/17 08:15 08/15/17 08:15 PT 10.9 SECONDS (9.7-12.2) 08/12/17 21:31 INR 1.0 08/12/17 21:31 APTT 24 SECONDS (21-34) 08/12/17 21:31 - Constitutional Appears: Well - Head Exam Head Exam: ATRAUMATIC, NORMAL INSPECTION, NORMOCEPHALIC - Eye Exam Eye Exam: EOMI, Normal appearance, PERRL Pupil Exam: NORMAL ACCOMODATION, PERRL - ENT Exam ENT Exam: Mucous Membranes Moist, Normal Exam - Neck Exam Neck Exam: Full ROM, Normal Inspection. absent: Lymphadenopathy - Respiratory Exam Respiratory Exam: Decreased Breath Sounds - Cardiovascular Exam Cardiovascular Exam: REGULAR RHYTHM, +S1, +S2 - GI/Abdominal Exam GI & Abdominal Exam: Soft, Diminished Bowel Sounds - Rectal Exam Rectal Exam: Deferred
[2017-08-15] MEDS ORDERED: Potassium Chloride 10 mEq ER Tab PO STA (17:05)
[2017-08-15] MEDS ORDERED: Potassium Chloride 20 mEq ER Tab PO ONE (18:45)
[2017-08-16] MEDS: DiphenhydrAMINE 50 mg/ml Inj IVP PRN ×8 (00:20→21:43)
[2017-08-16] MEDS: metroNIDAZOLE IV 500 mg/100 ml 500 MG/100 ML BAG IVPB SCH ×3 (05:07→21:00)
[2017-08-16] MEDS: Aritificial Tears (15ml) OU PRN (06:50)
[2017-08-16 07:11] LABS: BASO # 0.1 K/uL (0.0-0.2); BASO % 0.8 % (0.0-2.0); HEMOGLOBIN 11.1 g/dL (12.0-18.0); LYMPH # 4.9 K/uL (1.0-4.3); LYMPH % 44.6 % (20.0-40.0); MEAN CELL VOLUME 70.2 fL (80.0-94.0); MEAN CORPUSCULAR HEMOGLOBIN 23.2 pg (27.0-31.0); MEAN CORPUSCULAR HGB CONC 33.1 g/dL (33.0-37.0); MEAN PLATELET VOLUME 7.8 fL (7.2-11.7); MONO # 0.7 K/uL (0.0-0.8); MONO % 6.4 % (0.0-10.0); NEUT # 4.3 K/uL (1.8-7.0); NEUT % 39.2 % (50.0-75.0); RBC 4.8 Mil/uL (4.40-5.90); RED CELL DISTRIBUTION WIDTH 18.4 % (11.5-14.5)
[2017-08-16 07:22] LABS: ALB/GLOB RATIO 1.1 (1.0-2.1); ALBUMIN 3.8 g/dL (3.5-5.0); ALT/SGPT 60 U/L (21-72); AST/SGOT 27 U/L (17-59); BLOOD UREA NITROGEN 14 mg/dL (9-20); CALCIUM 9.3 mg/dl (8.6-10.4); GFR AFRICAN-AMERICAN > 60; GFR NON-AFRICAN AMERICAN > 60
[2017-08-16] MEDS: Multivitamin Vitamin B Complex (Nephro-Vite) Tab PO SCH (09:19)
--- NOTE | 2017-08-16 17:38 | CP.PCM.PN ---
Subjective - Date & Time of Evaluation Date of Evaluation: 08/16/17 Time of Evaluation: 08:40 - Subjective Subjective: clinically same Objective - Vital Signs/Intake and Output Vital Signs (last 24 hours): Temp Pulse Resp BP Pulse Ox 97.8 F 94 H 20 114/79 94 L 08/16/17 15:20 08/16/17 15:20 08/16/17 15:20 08/16/17 15:20 08/16/17 15:20 - Medications Medications: Current Medications Artificial Tears (Artificial Tears) 0.1 ml OU BID PRN PRN Reason: Dry eyes Last Admin: 08/16/17 06:50 Dose: 0.1 ml Cyanocobalamin (Vitamin B12 1000 Mcg Tab) 1,000 mcg PO DAILY [facility] Last Admin: 08/16/17 09:19 Dose: 1,000 mcg Diphenhydramine HCl (Benadryl) 25 mg IVP Q3H PRN PRN Reason: Allergy symptoms Last Admin: 08/16/17 15:22 Dose: 25 mg Escitalopram Oxalate (Lexapro) 5 mg PO DAILY [facility] Last Admin: 08/16/17 09:19 Dose: 5 mg Hydromorphone HCl (Dilaudid) 1 mg IVP Q3H PRN PRN Reason: Pain, moderate (4-7) Last Admin: 08/16/17 15:23 Dose: 1 mg Cefepime HCl 1 gm/ Dextrose 50 mls @ 100 mls/hr IVPB Q12H [facility] Last Admin: 08/16/17 12:32 Dose: 100 mls/hr Metronidazole (Flagyl) 500 mg in 100 mls @ 100 mls/hr IVPB Q8H [facility] Last Admin: 08/16/17 15:20 Dose: 100 mls/hr Vancomycin HCl 1 gm/ Sodium (Chloride) 250 mls @ 166.667 mls/hr IVPB Q24H [facility] Stop: 08/18/17 22:01 Last Admin: 08/15/17 22:42 Dose: 166.667 mls/hr Mesalamine (Delzicol) 400 mg PO TID [facility] Last Admin: 08/16/17 15:46 Dose: 400 mg Ondansetron HCl (Zofran Inj) 4 mg IVP Q8 PRN PRN Reason: Nausea/Vomiting Tobramycin/Dexamethasone (Tobradex 0.3%-0.1% Opht Oint) 1 appl OD BID [facility] Vitamin B Complex/Vit C/Folic Acid (Nephro-Fidelia) 1 tab PO 0800 [facility] Last Admin: 08/16/17 09:19 Dose: 1 tab - Labs Labs: 08/16/17 07:06 08/16/17 07:06 PT 10.9 SECONDS (9.7-12.2) 08/12/17 21:31 INR 1.0 08/12/17 21:31 APTT 24 SECONDS (21-34) 08/12/17 21:31 - Constitutional Appears: Well - Head Exam Head Exam: ATRAUMATIC, NORMAL INSPECTION, NORMOCEPHALIC - Eye Exam Eye Exam: EOMI, Normal appearance, PERRL Pupil Exam: NORMAL ACCOMODATION, PERRL - ENT Exam ENT Exam: Mucous Membranes Moist, Normal Exam - Neck Exam Neck Exam: Full ROM, Normal Inspection. absent: Lymphadenopathy - Respiratory Exam Respiratory Exam: Decreased Breath Sounds - Cardiovascular Exam Cardiovascular Exam: REGULAR RHYTHM, +S1, +S2 - GI/Abdominal Exam GI & Abdominal Exam: Soft, Diminished Bowel Sounds - Rectal Exam Rectal Exam: Deferred
[2017-08-16] MEDS: Tobramycin/Dexamethasone OPHT OINT OD SCH (18:37)
[2017-08-17] MEDS: DiphenhydrAMINE 50 mg/ml Inj IVP PRN ×8 (00:46→22:54)
[2017-08-17] MEDS: Aritificial Tears (15ml) OU PRN ×2 (00:49→09:31)
[2017-08-17] MEDS ORDERED: Tobramycin/Dexamethasone OPHT OINT OU ONE (01:15)
[2017-08-17] MEDS: metroNIDAZOLE IV 500 mg/100 ml 500 MG/100 ML BAG IVPB SCH ×3 (05:18→21:34)
[2017-08-17 07:35] LABS: BASO # 0.1 K/uL (0.0-0.2); BASO % 0.7 % (0.0-2.0); HEMOGLOBIN 10.8 g/dL (12.0-18.0); LYMPH # 4.4 K/uL (1.0-4.3); LYMPH % 36.5 % (20.0-40.0); MEAN CELL VOLUME 70.7 fL (80.0-94.0); MEAN CORPUSCULAR HEMOGLOBIN 22.6 pg (27.0-31.0); MEAN PLATELET VOLUME 8.6 fL (7.2-11.7); MONO % 8.1 % (0.0-10.0); NEUT # 5.6 K/uL (1.8-7.0); NEUT % 46.7 % (50.0-75.0); RBC 4.78 Mil/uL (4.40-5.90); RED CELL DISTRIBUTION WIDTH 18.4 % (11.5-14.5)
[2017-08-17] MEDS: Multivitamin Vitamin B Complex (Nephro-Vite) Tab PO SCH (07:49)
[2017-08-17 08:06] LABS: ALB/GLOB RATIO 1.1 (1.0-2.1); ALBUMIN 3.8 g/dL (3.5-5.0); ALT/SGPT 63 U/L (21-72); AST/SGOT 34 U/L (17-59); BLOOD UREA NITROGEN 12 mg/dL (9-20); CALCIUM 9.4 mg/dl (8.6-10.4); GFR AFRICAN-AMERICAN > 60; GFR NON-AFRICAN AMERICAN > 60
[2017-08-17] MEDS: Tobramycin/Dexamethasone OPHT OINT OD SCH ×2 (09:31→18:09)
--- NOTE | 2017-08-17 15:42 | CP.PCM.PN ---
Subjective - Date & Time of Evaluation Date of Evaluation: 08/17/17 Time of Evaluation: 08:20 - Subjective Subjective: clinically same Objective - Vital Signs/Intake and Output Vital Signs (last 24 hours): Temp Pulse Resp BP Pulse Ox 97.5 F L 78 20 113/76 98 08/17/17 08:05 08/17/17 08:05 08/17/17 08:05 08/17/17 08:05 08/17/17 08:05 Intake and Output: 08/17/17 08/17/17 06:59 18:59 Intake Total 650 Balance 650 - Medications Medications: Current Medications Artificial Tears (Artificial Tears) 0.1 ml OU BID PRN PRN Reason: Dry eyes Last Admin: 08/17/17 09:31 Dose: 0.1 ml Cyanocobalamin (Vitamin B12 1000 Mcg Tab) 1,000 mcg PO DAILY [facility] Last Admin: 08/17/17 09:31 Dose: 1,000 mcg Diphenhydramine HCl (Benadryl) 25 mg IVP Q3H PRN PRN Reason: Allergy symptoms Last Admin: 08/17/17 13:01 Dose: 25 mg Escitalopram Oxalate (Lexapro) 5 mg PO DAILY [facility] Last Admin: 08/17/17 09:31 Dose: 5 mg Hydromorphone HCl (Dilaudid) 1 mg IVP Q3 PRN PRN Reason: Pain, moderate (4-7) Last Admin: 08/17/17 13:00 Dose: 1 mg Cefepime HCl 1 gm/ Dextrose 50 mls @ 100 mls/hr IVPB Q12H [facility] Last Admin: 08/17/17 11:13 Dose: 100 mls/hr Metronidazole (Flagyl) 500 mg in 100 mls @ 100 mls/hr IVPB Q8H [facility] Last Admin: 08/17/17 13:46 Dose: 100 mls/hr Vancomycin HCl 1 gm/ Sodium (Chloride) 250 mls @ 166.667 mls/hr IVPB Q24H [facility] Stop: 08/18/17 22:01 Last Admin: 08/16/17 22:35 Dose: 166.667 mls/hr Mesalamine (Delzicol) 400 mg PO TID [facility] Last Admin: 08/17/17 13:46 Dose: 400 mg Ondansetron HCl (Zofran Inj) 4 mg IVP Q8 PRN PRN Reason: Nausea/Vomiting Tobramycin/Dexamethasone (Tobradex 0.3%-0.1% Opht Oint) 1 appl OD BID [facility] Last Admin: 08/17/17 09:31 Dose: 1 applic Vitamin B Complex/Vit C/Folic Acid (Nephro-Fidelia) 1 tab PO 0800 [facility] Last Admin: 08/17/17 07:49 Dose: 1 tab - Labs Labs: 08/17/17 07:18 08/17/17 07:18 PT 10.9 SECONDS (9.7-12.2) 08/12/17 21:31 INR 1.0 08/12/17 21:31 APTT 24 SECONDS (21-34) 08/12/17 21:31
[2017-08-18] MEDS: DiphenhydrAMINE 50 mg/ml Inj IVP PRN ×8 (02:02→23:49)
[2017-08-18] MEDS: metroNIDAZOLE IV 500 mg/100 ml 500 MG/100 ML BAG IVPB SCH ×3 (05:05→22:20)
[2017-08-18 07:35] LABS: BASO # 0.1 K/uL (0.0-0.2); BASO % 0.6 % (0.0-2.0); EOS # 0.7 K/uL (0.0-0.7); EOS % 6.8 % (0.0-4.0); HEMOGLOBIN 10.8 g/dL (12.0-18.0); LYMPH # 4.2 K/uL (1.0-4.3); LYMPH % 40.7 % (20.0-40.0); MEAN CELL VOLUME 70.4 fL (80.0-94.0); MEAN CORPUSCULAR HEMOGLOBIN 22.8 pg (27.0-31.0); MEAN CORPUSCULAR HGB CONC 32.4 g/dL (33.0-37.0); MEAN PLATELET VOLUME 8.5 fL (7.2-11.7); MONO # 0.6 K/uL (0.0-0.8); MONO % 6.2 % (0.0-10.0); NEUT # 4.8 K/uL (1.8-7.0); NEUT % 45.7 % (50.0-75.0); RBC 4.71 Mil/uL (4.40-5.90); RED CELL DISTRIBUTION WIDTH 18.8 % (11.5-14.5); WHITE BLOOD COUNT 10.4 K/uL (4.8-10.8)
[2017-08-18 08:35] LABS: ALB/GLOB RATIO 1.1 (1.0-2.1); ALBUMIN 3.9 g/dL (3.5-5.0); ALT/SGPT 47 U/L (21-72); AST/SGOT 29 U/L (17-59); BLOOD UREA NITROGEN 13 mg/dL (9-20); CALCIUM 9.7 mg/dl (8.6-10.4); GFR AFRICAN-AMERICAN > 60; GFR NON-AFRICAN AMERICAN > 60
[2017-08-18] MEDS: Multivitamin Vitamin B Complex (Nephro-Vite) Tab PO SCH (08:37)
[2017-08-18] MEDS: Tobramycin/Dexamethasone OPHT OINT OD SCH (09:53)
--- NOTE | 2017-08-18 10:08 | CP.PCM.PN ---
Subjective - Date & Time of Evaluation Date of Evaluation: 08/18/17 Time of Evaluation: 10:07 - Subjective Subjective: PGY2 medicine progress note for Dr. Barrett's service Patient seen and examined. Patient with complaint of skin irritation around his ostomy site. Patient also states his right eye is tearing. Objective - Vital Signs/Intake and Output Vital Signs (last 24 hours): Temp Pulse Resp BP Pulse Ox 97.5 F L 79 20 122/84 95 08/18/17 07:30 08/18/17 07:30 08/18/17 07:30 08/18/17 07:30 08/18/17 07:30 - Medications Medications: Current Medications Artificial Tears (Artificial Tears) 0.1 ml OU BID PRN PRN Reason: Dry eyes Last Admin: 08/17/17 09:31 Dose: 0.1 ml Cyanocobalamin (Vitamin B12 1000 Mcg Tab) 1,000 mcg PO DAILY [facility] Last Admin: 08/18/17 09:48 Dose: 1,000 mcg Diphenhydramine HCl (Benadryl) 25 mg IVP Q3H PRN PRN Reason: Allergy symptoms Last Admin: 08/18/17 08:38 Dose: 25 mg Escitalopram Oxalate (Lexapro) 5 mg PO DAILY [facility] Last Admin: 08/18/17 09:48 Dose: 5 mg Hydromorphone HCl (Dilaudid) 1 mg IVP Q3 PRN PRN Reason: Pain, moderate (4-7) Last Admin: 08/18/17 08:38 Dose: 1 mg Cefepime HCl 1 gm/ Dextrose 50 mls @ 100 mls/hr IVPB Q12H [facility] Last Admin: 08/17/17 23:58 Dose: 100 mls/hr Metronidazole (Flagyl) 500 mg in 100 mls @ 100 mls/hr IVPB Q8H [facility] Last Admin: 08/18/17 05:05 Dose: 100 mls/hr Vancomycin HCl 1 gm/ Sodium (Chloride) 250 mls @ 166.667 mls/hr IVPB Q24H [facility] Stop: 08/18/17 22:01 Last Admin: 08/17/17 22:56 Dose: 166.667 mls/hr Mesalamine (Delzicol) 400 mg PO TID [facility] Last Admin: 08/18/17 09:48 Dose: 400 mg Ondansetron HCl (Zofran Inj) 4 mg IVP Q8 PRN PRN Reason: Nausea/Vomiting Tobramycin/Dexamethasone (Tobradex 0.3%-0.1% Opht Oint) 1 appl OD BID [facility] Last Admin: 08/18/17 09:53 Dose: 1 applic Vitamin B Complex/Vit C/Folic Acid (Nephro-Fidelia) 1 tab PO 0800 [facility] Last Admin: 08/18/17 08:37 Dose: 1 tab - Labs Labs: 08/18/17 07:17 08/18/17 07:17 PT 10.9 SECONDS (9.7-12.2) 08/12/17 21:31 INR 1.0 08/12/17 21:31 APTT 24 SECONDS (21-34) 08/12/17 21:31 - Constitutional Appears: No Acute Distress - Head Exam Head Exam: ATRAUMATIC, NORMOCEPHALIC - Eye Exam Eye Exam: EOMI Additional comments: blue hued discoloration to sclera of right eye - ENT Exam ENT Exam: Mucous Membranes Moist - Respiratory Exam Respiratory Exam: Clear to Ausculation Bilateral - Cardiovascular Exam Cardiovascular Exam: +S1, +S2 - GI/Abdominal Exam GI & Abdominal Exam: Soft. absent: Tenderness Additional comments: left sided colostomy, mild erythema to skin around ostomy site - Rectal Exam Additional comments: draining wounds in gluteal cleft - Extremities Exam Extremities Exam: Normal Inspection - Neurological Exam Neurological Exam: Alert, Awake - Psychiatric Exam Psychiatric exam: Normal Affect - Skin Skin Exam: Warm Assessment and Plan - Assessment and Plan (Free Text) Assessment: Rectal Wound- chronic Afebrile WBC- 10.4 Surgical consult, Dr. Taylor ID consult, Dr. Daniel Dillisandraid 1mg IV Q3H PRN for Pain- given with Benadryl due to morphine allergy - Prior admission Culture: Wound cultures (05/21/17): Pseudomonas aeruginosa, Citrobacter freundii, Staph aureus Wound care nurse consult, help appreciated - f/u recs vancomycin 1g q24h Cefepime 1g IV q12hrs (started 08/13) urine culture: pseudomonas wound culture: E. coli and Enterococcus faecalis PICC line left upper arm Crohn's Disease;chronic and uncontrolled Loop Colostomy (2015) Complicated by persistent abscesses Home med Delzicol 800mg PO Daily (non-formulary here) changed to Delzicol 400mg TID History of anemia Hgb 10.8 today Transaminitis AST/ ALT normalized Will continue to monitor Anxiety Lexapro 5mg PO Daily Electrolyte abnormality continue to monitor and replete Eye discoloration ophthalmology consult, Dr. Gipson- help appreciated continue TobraDex drops Prophylaxis Zofran 4mg IV q8hrs prn Protonix SCD artificial tears for dry eyes Case discussed with Dr. Barrett All management as per Dr. Barrett
--- NOTE | 2017-08-18 14:45 | CP.PCM.PN ---
Subjective - Date & Time of Evaluation Date of Evaluation: 08/18/17 Time of Evaluation: 02:25 - Subjective Subjective: dictated Objective - Vital Signs/Intake and Output Vital Signs (last 24 hours): Temp Pulse Resp BP Pulse Ox 97.5 F L 79 20 122/84 95 08/18/17 07:30 08/18/17 07:30 08/18/17 07:30 08/18/17 07:30 08/18/17 07:30 - Medications Medications: Current Medications Artificial Tears (Artificial Tears) 0.1 ml OU BID PRN PRN Reason: Dry eyes Last Admin: 08/17/17 09:31 Dose: 0.1 ml Cyanocobalamin (Vitamin B12 1000 Mcg Tab) 1,000 mcg PO DAILY [facility] Last Admin: 08/18/17 09:48 Dose: 1,000 mcg Diphenhydramine HCl (Benadryl) 25 mg IVP Q3H PRN PRN Reason: Allergy symptoms Last Admin: 08/18/17 11:38 Dose: 25 mg Escitalopram Oxalate (Lexapro) 5 mg PO DAILY [facility] Last Admin: 08/18/17 09:48 Dose: 5 mg Hydromorphone HCl (Dilaudid) 1 mg IVP Q3 PRN PRN Reason: Pain, moderate (4-7) Last Admin: 08/18/17 11:39 Dose: 1 mg Cefepime HCl 1 gm/ Dextrose 50 mls @ 100 mls/hr IVPB Q12H [facility] Last Admin: 08/18/17 11:44 Dose: 100 mls/hr Metronidazole (Flagyl) 500 mg in 100 mls @ 100 mls/hr IVPB Q8H [facility] Last Admin: 08/18/17 14:25 Dose: 100 mls/hr Vancomycin HCl 1 gm/ Sodium (Chloride) 250 mls @ 166.667 mls/hr IVPB Q24H [facility] Stop: 08/18/17 22:01 Last Admin: 08/17/17 22:56 Dose: 166.667 mls/hr Mesalamine (Delzicol) 400 mg PO TID [facility] Last Admin: 08/18/17 09:48 Dose: 400 mg Ondansetron HCl (Zofran Inj) 4 mg IVP Q8 PRN PRN Reason: Nausea/Vomiting Tobramycin/Dexamethasone (Tobradex Opht Susp) 0 ml OU Q4 [facility] Stop: 08/25/17 23:59 Vitamin B Complex/Vit C/Folic Acid (Nephro-Fidelia) 1 tab PO 0800 [facility] Last Admin: 08/18/17 08:37 Dose: 1 tab - Labs Labs: 08/18/17 07:17 08/18/17 07:17 PT 10.9 SECONDS (9.7-12.2) 08/12/17 21:31 INR 1.0 08/12/17 21:31 APTT 24 SECONDS (21-34) 08/12/17 21:31
--- NOTE | 2017-08-18 16:04 | RAD ---
PROCEDURE: Right small finger radiographs. HISTORY: closed finger in door, pain COMPARISON: None. TECHNIQUE: AP radiograph of the right hand, as well as spot oblique and lateral images of small finger were obtained. FINDINGS: RIGHT SMALL FINGER: No fracture. Relative to the 5th distal phalanx the middle phalanx is subluxed ulnarly. No significant anterior-posterior subluxation on the lateral view appreciated JOINTS: Fifth DIP joint subluxation SOFT TISSUES: Overlying bandage 5th digit OTHER FINDINGS: None. IMPRESSION: No fracture appreciated.Fifth DIP joint subluxation
--- NOTE | 2017-08-18 17:40 | CP.PCM.PN ---
Subjective - Date & Time of Evaluation Date of Evaluation: 08/18/17 Time of Evaluation: 09:20 - Subjective Subjective: clinically same Objective - Vital Signs/Intake and Output Vital Signs (last 24 hours): Temp Pulse Resp BP Pulse Ox 97.9 F 77 20 111/75 96 08/18/17 15:32 08/18/17 15:32 08/18/17 15:32 08/18/17 15:32 08/18/17 15:32 - Medications Medications: Current Medications Artificial Tears (Artificial Tears) 0.1 ml OU BID PRN PRN Reason: Dry eyes Last Admin: 08/17/17 09:31 Dose: 0.1 ml Bacitracin (Bacitracin) 1 gm TOP DAILY [facility] Cyanocobalamin (Vitamin B12 1000 Mcg Tab) 1,000 mcg PO DAILY [facility] Last Admin: 08/18/17 09:48 Dose: 1,000 mcg Diphenhydramine HCl (Benadryl) 25 mg IVP Q3H PRN PRN Reason: Allergy symptoms Last Admin: 08/18/17 14:47 Dose: 25 mg Escitalopram Oxalate (Lexapro) 5 mg PO DAILY [facility] Last Admin: 08/18/17 09:48 Dose: 5 mg Hydromorphone HCl (Dilaudid) 1 mg IVP Q3 PRN PRN Reason: Pain, moderate (4-7) Last Admin: 08/18/17 14:49 Dose: 1 mg Cefepime HCl 1 gm/ Dextrose 50 mls @ 100 mls/hr IVPB Q12H [facility] Last Admin: 08/18/17 11:44 Dose: 100 mls/hr Metronidazole (Flagyl) 500 mg in 100 mls @ 100 mls/hr IVPB Q8H [facility] Last Admin: 08/18/17 14:25 Dose: 100 mls/hr Vancomycin HCl 1 gm/ Sodium (Chloride) 250 mls @ 166.667 mls/hr IVPB Q24H [facility] Stop: 08/18/17 22:01 Last Admin: 08/17/17 22:56 Dose: 166.667 mls/hr Mesalamine (Delzicol) 400 mg PO TID [facility] Last Admin: 08/18/17 14:46 Dose: 400 mg Ondansetron HCl (Zofran Inj) 4 mg IVP Q8 PRN PRN Reason: Nausea/Vomiting Tobramycin/Dexamethasone (Tobradex Opht Susp) 0 ml OU Q4 [facility] Stop: 08/25/17 23:59 Vitamin B Complex/Vit C/Folic Acid (Nephro-Fidelia) 1 tab PO 0800 [facility] Last Admin: 08/18/17 08:37 Dose: 1 tab - Labs Labs: 08/18/17 07:17 08/18/17 07:17 PT 10.9 SECONDS (9.7-12.2) 08/12/17 21:31 INR 1.0 08/12/17 21:31 APTT 24 SECONDS (21-34) 08/12/17 21:31
[2017-08-18] MEDS: Tobramycin/Dexamethasone (Tobradex) Opth Sol (2.5 ml) OU SCH ×3 (17:42→23:54)
--- NOTE | 2017-08-18 17:54 | PN ---
SUBJECTIVE: The patient just banged his finger. He is showing me his little finger on the right with bleeding and it seems to be around the nail. I am not sure if it was safe. Dressing was applied. The nurse was right there applying the dressing. He also complains of some eye symptoms and he says he was seen by the eye doctor and he got some TobraDex to his eyes. He does have some discoloration in the sclera; I am not sure if that was present before or its new. 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 PHYSICAL EXAMINATION: VITAL SIGNS: T-max is 97.5, pulse 79, blood pressure 122/84, respirations are 20. HEENT: Head is atraumatic, normocephalic. NECK: Supple. LUNGS: Clear. No crackles or rales present. HEART: S1, S2 is regular. ABDOMEN: Soft. His colostomy, he says where it touches the skin, the flesh, he states that has redness there. He has multiple complaints. EXTREMITIES: No edema and now he banged his finger; has eye problems, all different issues. LABORATORY DATA: White count is 10.4, hemoglobin 10.8. He came in on and I am hoping we can get him out by tomorrow. ASSESSMENT AND PLAN: His wound has Escherichia coli and Enterococcus faecium, which is probably from the fistula and we will leave him on the antibiotic he is on. I am not entertaining vancomycin-resistant Enterococcus as if I try to treat that, he will be here forever and I think it is from the fistulous tract. Urine had pseudomonas which is cefepime sensitive, so I will repeat the urine culture again. Santosh Daniel MD
[2017-08-18 19:10] LABS: URINE AMORPHOUS SEDIMENT RARE /ul (<OCC); URINE BACTERIA RARE (<OCC); URINE BILIRUBIN NEGATIVE (NEGATIVE); URINE BLOOD NEGATIVE (NEGATIVE); URINE CLARITY Hazy (Clear); URINE COLOR Yellow (YELLOW); URINE GLUCOSE (UA) NORMAL (Normal); URINE LEUKOCYTE ESTERASE NEG Leu/uL (Negative); URINE NITRATE NEGATIVE (NEGATIVE); URINE PROTEIN NEGATIVE (NEGATIVE); URINE UROBILINOGEN NORMAL mg/dL (0.2-1.0)
[2017-08-18] MEDS: Bacitracin Ointment 30 GM TUBE TOP SCH (20:42)
[2017-08-19] MEDS: DiphenhydrAMINE 50 mg/ml Inj IVP PRN ×7 (02:58→22:34)
[2017-08-19] MEDS: Tobramycin/Dexamethasone (Tobradex) Opth Sol (2.5 ml) OU SCH ×5 (04:00→19:42)
[2017-08-19] MEDS: metroNIDAZOLE IV 500 mg/100 ml 500 MG/100 ML BAG IVPB SCH ×3 (06:05→21:44)
[2017-08-19] MEDS: Multivitamin Vitamin B Complex (Nephro-Vite) Tab PO SCH (07:58)
[2017-08-19] MEDS: Bacitracin Ointment 30 GM TUBE TOP SCH (09:10)
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
--- NOTE | 2017-08-19 14:15 | CP.PCM.PN ---
Subjective - Date & Time of Evaluation Date of Evaluation: 08/19/17 Time of Evaluation: 02:00 - Subjective Subjective: dictated Objective - Vital Signs/Intake and Output Vital Signs (last 24 hours): Temp Pulse Resp BP Pulse Ox 97.4 F L 77 20 116/81 96 08/19/17 08:09 08/19/17 08:09 08/19/17 08:09 08/19/17 08:09 08/19/17 08:09 Intake and Output: 08/19/17 08/19/17 06:59 18:59 Intake Total 750 Output Total 300 Balance 450 - Medications Medications: Current Medications Artificial Tears (Artificial Tears) 0.1 ml OU BID PRN PRN Reason: Dry eyes Last Admin: 08/17/17 09:31 Dose: 0.1 ml Bacitracin (Bacitracin) 1 gm TOP DAILY [facility] Last Admin: 08/19/17 09:10 Dose: 1 applic Cyanocobalamin (Vitamin B12 1000 Mcg Tab) 1,000 mcg PO DAILY [facility] Last Admin: 08/19/17 09:10 Dose: 1,000 mcg Diphenhydramine HCl (Benadryl) 25 mg IVP Q3H PRN PRN Reason: Allergy symptoms Last Admin: 08/19/17 12:48 Dose: 25 mg Escitalopram Oxalate (Lexapro) 5 mg PO DAILY [facility] Last Admin: 08/19/17 09:10 Dose: 5 mg Hydromorphone HCl (Dilaudid) 1 mg IVP Q3 PRN PRN Reason: Pain, moderate (4-7) Last Admin: 08/19/17 12:48 Dose: 1 mg Cefepime HCl 1 gm/ Dextrose 50 mls @ 100 mls/hr IVPB Q12H [facility] Last Admin: 08/19/17 12:21 Dose: 100 mls/hr Metronidazole (Flagyl) 500 mg in 100 mls @ 100 mls/hr IVPB Q8H [facility] Last Admin: 08/19/17 14:02 Dose: 100 mls/hr Mesalamine (Delzicol) 400 mg PO TID [facility] Last Admin: 08/19/17 14:02 Dose: 400 mg Ondansetron HCl (Zofran Inj) 4 mg IVP Q8 PRN PRN Reason: Nausea/Vomiting Tobramycin/Dexamethasone (Tobradex Opht Susp) 0 ml OU Q4 [facility] Stop: 08/25/17 23:59 Last Admin: 08/19/17 12:22 Dose: 1 drop Vitamin B Complex/Vit C/Folic Acid (Nephro-Fidelia) 1 tab PO 0800 [facility] Last Admin: 08/19/17 07:58 Dose: 1 tab - Labs Labs: 08/18/17 07:17 08/18/17 07:17 PT 10.9 SECONDS (9.7-12.2) 08/12/17 21:31 INR 1.0 08/12/17 21:31 APTT 24 SECONDS (21-34) 08/12/17 21:31
--- NOTE | 2017-08-19 18:53 | PN ---
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 He was seen by the eye doctor and would need a followup again. He has bluish discoloration in his sclerae around. PHYSICAL EXAMINATION: VITAL SIGNS: T-max is 97.4, pulse 77, blood pressure 116/81, respirations are 20. HEENT: Head is atraumatic. NECK: Supple. LUNGS: Clear. HEART: S1 and S2 is regular. ABDOMEN: A colostomy bag is functioning, but he needs supplies for his colostomy. I told him to tell the family members to bring him. He still remains with feces coming out, he says and probably has fistulas secondary to Crohn's. EXTREMITIES: Have no edema. Remains with excoriation between the buttocks and needing pain medications. LABORATORY DATA: His white count came down to 10.4 yesterday and I am waiting for the urine culture report as urine had Pseudomonas. ASSESSMENT AND PLAN: So he has urinary tract infection, he has Pseudomonas in there, he has right eye pain, we should rule out uvulitis as the patient has Crohn's and/or other etiology and need to be followed up by the eye doctor and we will communicate with the nurse to inform Dr. Gipson to come and see him again his right eye. He thinks it is bruising. We will follow. He remains on cefepime and Flagyl at this time. The vancomycin-resistant Enterococcus I think is probably from the fecal contamination from the fistula. Santosh Daniel MD
--- NOTE | 2017-08-19 19:49 | CP.PCM.PN ---
Subjective - Date & Time of Evaluation Date of Evaluation: 08/19/17 Time of Evaluation: 08:40 - Subjective Subjective: clinically same Objective - Vital Signs/Intake and Output Vital Signs (last 24 hours): Temp Pulse Resp BP Pulse Ox 98.4 F 94 H 20 114/57 L 99 08/19/17 16:01 08/19/17 16:01 08/19/17 16:01 08/19/17 16:01 08/19/17 16:01 Intake and Output: 08/19/17 08/20/17 18:59 06:59 Intake Total 430 Balance 430 - Medications Medications: Current Medications Artificial Tears (Artificial Tears) 0.1 ml OU BID PRN PRN Reason: Dry eyes Last Admin: 08/17/17 09:31 Dose: 0.1 ml Bacitracin (Bacitracin) 1 gm TOP DAILY [facility] Last Admin: 08/19/17 09:10 Dose: 1 applic Cyanocobalamin (Vitamin B12 1000 Mcg Tab) 1,000 mcg PO DAILY [facility] Last Admin: 08/19/17 09:10 Dose: 1,000 mcg Diphenhydramine HCl (Benadryl) 25 mg IVP Q3H PRN PRN Reason: Allergy symptoms Last Admin: 08/19/17 19:30 Dose: 25 mg Escitalopram Oxalate (Lexapro) 5 mg PO DAILY [facility] Last Admin: 08/19/17 09:10 Dose: 5 mg Hydromorphone HCl (Dilaudid) 1 mg IVP Q3 PRN PRN Reason: Pain, moderate (4-7) Last Admin: 08/19/17 19:31 Dose: 1 mg Cefepime HCl 1 gm/ Dextrose 50 mls @ 100 mls/hr IVPB Q12H [facility] Last Admin: 08/19/17 12:21 Dose: 100 mls/hr Metronidazole (Flagyl) 500 mg in 100 mls @ 100 mls/hr IVPB Q8H [facility] Last Admin: 08/19/17 14:02 Dose: 100 mls/hr Mesalamine (Delzicol) 400 mg PO TID [facility] Last Admin: 08/19/17 17:31 Dose: 400 mg Ondansetron HCl (Zofran Inj) 4 mg IVP Q8 PRN PRN Reason: Nausea/Vomiting Tobramycin/Dexamethasone (Tobradex Opht Susp) 0 ml OU Q4 [facility] Stop: 08/25/17 23:59 Last Admin: 08/19/17 19:42 Dose: 1 drop Vitamin B Complex/Vit C/Folic Acid (Nephro-Fidelia) 1 tab PO 0800 [facility] Last Admin: 08/19/17 07:58 Dose: 1 tab - Labs Labs: 08/18/17 07:17 08/18/17 07:17 PT 10.9 SECONDS (9.7-12.2) 08/12/17 21:31 INR 1.0 08/12/17 21:31 APTT 24 SECONDS (21-34) 08/12/17 21:31
[2017-08-20] MEDS: Tobramycin/Dexamethasone (Tobradex) Opth Sol (2.5 ml) OU SCH ×6 (00:39→18:19)
[2017-08-20] MEDS: DiphenhydrAMINE 50 mg/ml Inj IVP PRN ×7 (01:42→21:36)
[2017-08-20] MEDS: metroNIDAZOLE IV 500 mg/100 ml 500 MG/100 ML BAG IVPB SCH ×3 (05:05→21:36)
[2017-08-20] MEDS: Multivitamin Vitamin B Complex (Nephro-Vite) Tab PO SCH (08:54)
[2017-08-20] MEDS: Bacitracin Ointment 30 GM TUBE TOP SCH (09:59)
--- NOTE | 2017-08-20 15:58 | CP.PCM.PN ---
Subjective - Date & Time of Evaluation Date of Evaluation: 08/20/17 Time of Evaluation: 15:53 - Subjective Subjective: PATIENT WAS COMPLAINING OF RIGHT EYE PAIN AND SCLERA DISCOLORATION; AAOX3 DENIES ANY CHEST PAIN, SOB; NO SIGN OF DISTRESS NOTED Objective - Vital Signs/Intake and Output Vital Signs (last 24 hours): Temp Pulse Resp BP Pulse Ox 97.4 F L 72 20 115/80 97 08/20/17 07:34 08/20/17 07:34 08/20/17 07:34 08/20/17 07:34 08/20/17 07:34 Intake and Output: 08/20/17 08/20/17 06:59 18:59 Intake Total 220 Balance 220 - Medications Medications: Current Medications Artificial Tears (Artificial Tears) 0.1 ml OU BID PRN PRN Reason: Dry eyes Last Admin: 08/17/17 09:31 Dose: 0.1 ml Bacitracin (Bacitracin) 1 gm TOP DAILY [facility] Last Admin: 08/20/17 09:59 Dose: 1 applic Cyanocobalamin (Vitamin B12 1000 Mcg Tab) 1,000 mcg PO DAILY [facility] Last Admin: 08/20/17 09:59 Dose: 1,000 mcg Diphenhydramine HCl (Benadryl) 25 mg IVP Q3H PRN PRN Reason: Allergy symptoms Last Admin: 08/20/17 14:14 Dose: 25 mg Escitalopram Oxalate (Lexapro) 5 mg PO DAILY [facility] Last Admin: 08/20/17 10:00 Dose: 5 mg Hydromorphone HCl (Dilaudid) 1 mg IVP Q3 PRN PRN Reason: Pain, moderate (4-7) Last Admin: 08/20/17 14:13 Dose: 1 mg Cefepime HCl 1 gm/ Dextrose 50 mls @ 100 mls/hr IVPB Q12H [facility] Last Admin: 08/20/17 11:11 Dose: 100 mls/hr Metronidazole (Flagyl) 500 mg in 100 mls @ 100 mls/hr IVPB Q8H [facility] Last Admin: 08/20/17 14:14 Dose: 100 mls/hr Mesalamine (Delzicol) 400 mg PO TID [facility] Last Admin: 08/20/17 14:14 Dose: 400 mg Ondansetron HCl (Zofran Inj) 4 mg IVP Q8 PRN PRN Reason: Nausea/Vomiting Tobramycin/Dexamethasone (Tobradex Opht Susp) 0 ml OU Q4 [facility] Stop: 08/25/17 23:59 Last Admin: 08/20/17 11:11 Dose: 1 drop Vitamin B Complex/Vit C/Folic Acid (Nephro-Fidelia) 1 tab PO 0800 [facility] Last Admin: 08/20/17 08:54 Dose: 1 tab - Labs Labs: 08/18/17 07:17 08/18/17 07:17 PT 10.9 SECONDS (9.7-12.2) 08/12/17 21:31 INR 1.0 08/12/17 21:31 APTT 24 SECONDS (21-34) 08/12/17 21:31 - Constitutional Appears: Well - Eye Exam Eye Exam: Normal appearance Additional comments: PURPLE DISCOLORATION NOTED; CARDINAL POSITION OF GAZE PERFORM NO DEFICIT NOTED Assessment and Plan - Assessment and Plan (Free Text) Assessment: A/P EYE DISCOLORATION OPHTHAMOLOGY NOTIFIED AND CAME TO RE EVALUATE THE PATIENT RIGHT EYE Dr. Gipson- help appreciated continue TobraDex drops BUT DR GIPSON WANT TO TITRATE TO 3 TIMES A DAY EYE EXAM PERFORM BY DR GIPSON AND FINDINGS ARE NORMAL HOME AND FAMILY LIVING PROFESSOR ALSO DISCUSS THE FINDINGS WITH PMD
--- NOTE | 2017-08-20 17:30 | CP.PCM.PN ---
Subjective - Date & Time of Evaluation Date of Evaluation: 08/20/17 Time of Evaluation: 08:40 - Subjective Subjective: clinically same Objective - Vital Signs/Intake and Output Vital Signs (last 24 hours): Temp Pulse Resp BP Pulse Ox 97.9 F 95 H 20 121/80 98 08/20/17 15:15 08/20/17 15:15 08/20/17 15:15 08/20/17 15:15 08/20/17 15:15 Intake and Output: 08/20/17 08/20/17 06:59 18:59 Intake Total 220 500 Balance 220 500 - Medications Medications: Current Medications Artificial Tears (Artificial Tears) 0.1 ml OU BID PRN PRN Reason: Dry eyes Last Admin: 08/17/17 09:31 Dose: 0.1 ml Bacitracin (Bacitracin) 1 gm TOP DAILY [facility] Last Admin: 08/20/17 09:59 Dose: 1 applic Cyanocobalamin (Vitamin B12 1000 Mcg Tab) 1,000 mcg PO DAILY [facility] Last Admin: 08/20/17 09:59 Dose: 1,000 mcg Diphenhydramine HCl (Benadryl) 25 mg IVP Q3H PRN PRN Reason: Allergy symptoms Last Admin: 08/20/17 14:14 Dose: 25 mg Escitalopram Oxalate (Lexapro) 5 mg PO DAILY [facility] Last Admin: 08/20/17 10:00 Dose: 5 mg Hydromorphone HCl (Dilaudid) 1 mg IVP Q3 PRN PRN Reason: Pain, moderate (4-7) Last Admin: 08/20/17 14:13 Dose: 1 mg Cefepime HCl 1 gm/ Dextrose 50 mls @ 100 mls/hr IVPB Q12H [facility] Last Admin: 08/20/17 11:11 Dose: 100 mls/hr Metronidazole (Flagyl) 500 mg in 100 mls @ 100 mls/hr IVPB Q8H [facility] Last Admin: 08/20/17 14:14 Dose: 100 mls/hr Mesalamine (Delzicol) 400 mg PO TID [facility] Last Admin: 08/20/17 14:14 Dose: 400 mg Ondansetron HCl (Zofran Inj) 4 mg IVP Q8 PRN PRN Reason: Nausea/Vomiting Tobramycin/Dexamethasone (Tobradex Opht Susp) 0 ml OU TID [facility] Stop: 08/25/17 23:59 Vitamin B Complex/Vit C/Folic Acid (Nephro-Fidelia) 1 tab PO 0800 [facility] Last Admin: 08/20/17 08:54 Dose: 1 tab - Labs Labs: 08/18/17 07:17 08/18/17 07:17 PT 10.9 SECONDS (9.7-12.2) 08/12/17 21:31 INR 1.0 08/12/17 21:31 APTT 24 SECONDS (21-34) 08/12/17 21:31
[2017-08-21] MEDS: DiphenhydrAMINE 50 mg/ml Inj IVP PRN ×8 (00:32→22:59)
[2017-08-21] MEDS: metroNIDAZOLE IV 500 mg/100 ml 500 MG/100 ML BAG IVPB SCH ×3 (05:27→22:59)
[2017-08-21] MEDS: Multivitamin Vitamin B Complex (Nephro-Vite) Tab PO SCH (08:17)
[2017-08-21] MEDS: Bacitracin Ointment 30 GM TUBE TOP SCH (09:31)
[2017-08-21] MEDS: Tobramycin/Dexamethasone (Tobradex) Opth Sol (2.5 ml) OU SCH ×3 (09:31→17:10)
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
[2017-08-21 16:14] VITALS: RESP 20
--- NOTE | 2017-08-21 19:34 | CP.PCM.PN ---
Subjective - Date & Time of Evaluation Date of Evaluation: 08/21/17 Time of Evaluation: 09:00 - Subjective Subjective: clinically same Objective - Vital Signs/Intake and Output Vital Signs (last 24 hours): Temp Pulse Resp BP Pulse Ox 98.0 F 101 H 20 125/80 99 08/21/17 16:13 08/21/17 16:13 08/21/17 16:13 08/21/17 16:13 08/21/17 16:13 Intake and Output: 08/21/17 08/22/17 18:59 06:59 Intake Total 810 Balance 810 - Medications Medications: Current Medications Artificial Tears (Artificial Tears) 0.1 ml OU BID PRN PRN Reason: Dry eyes Last Admin: 08/17/17 09:31 Dose: 0.1 ml Bacitracin (Bacitracin) 1 gm TOP DAILY [facility] Last Admin: 08/21/17 09:31 Dose: 1 applic Cyanocobalamin (Vitamin B12 1000 Mcg Tab) 1,000 mcg PO DAILY [facility] Last Admin: 08/21/17 09:31 Dose: 1,000 mcg Diphenhydramine HCl (Benadryl) 25 mg IVP Q3H PRN PRN Reason: Allergy symptoms Last Admin: 08/21/17 17:09 Dose: 25 mg Escitalopram Oxalate (Lexapro) 5 mg PO DAILY [facility] Last Admin: 08/21/17 09:31 Dose: 5 mg Hydromorphone HCl (Dilaudid) 1 mg IVP Q3 PRN PRN Reason: Pain, moderate (4-7) Last Admin: 08/21/17 17:09 Dose: 1 mg Cefepime HCl 1 gm/ Dextrose 50 mls @ 100 mls/hr IVPB Q12H [facility] Last Admin: 08/21/17 11:13 Dose: 100 mls/hr Metronidazole (Flagyl) 500 mg in 100 mls @ 100 mls/hr IVPB Q8H [facility] Last Admin: 08/21/17 14:11 Dose: 100 mls/hr Mesalamine (Delzicol) 400 mg PO TID [facility] Last Admin: 08/21/17 17:10 Dose: 400 mg Ondansetron HCl (Zofran Inj) 4 mg IVP Q8 PRN PRN Reason: Nausea/Vomiting Tobramycin/Dexamethasone (Tobradex Opht Susp) 0 ml OU TID [facility] Stop: 08/25/17 23:59 Last Admin: 08/21/17 17:10 Dose: 1 drop Vitamin B Complex/Vit C/Folic Acid (Nephro-Fidelia) 1 tab PO 0800 [facility] Last Admin: 08/21/17 08:17 Dose: 1 tab - Labs Labs: 08/18/17 07:17 08/18/17 07:17 PT 10.9 SECONDS (9.7-12.2) 08/12/17 21:31 INR 1.0 08/12/17 21:31 APTT 24 SECONDS (21-34) 08/12/17 21:31
[2017-08-22] MEDS: DiphenhydrAMINE 50 mg/ml Inj IVP PRN ×7 (02:06→21:05)
[2017-08-22] MEDS: metroNIDAZOLE IV 500 mg/100 ml 500 MG/100 ML BAG IVPB SCH ×3 (05:10→21:05)
[2017-08-22 08:03] LABS: BASO # 0.1 K/uL (0.0-0.2); BASO % 0.6 % (0.0-2.0); EOS # 0.7 K/uL (0.0-0.7); EOS % 6.2 % (0.0-4.0); HEMOGLOBIN 11.3 g/dL (12.0-18.0); LYMPH # 4.3 K/uL (1.0-4.3); LYMPH % 37.7 % (20.0-40.0); MEAN CELL VOLUME 70.4 fL (80.0-94.0); MEAN CORPUSCULAR HEMOGLOBIN 23.2 pg (27.0-31.0); MEAN CORPUSCULAR HGB CONC 32.9 g/dL (33.0-37.0); MEAN PLATELET VOLUME 8.6 fL (7.2-11.7); MONO # 0.7 K/uL (0.0-0.8); MONO % 6.2 % (0.0-10.0); NEUT # 5.7 K/uL (1.8-7.0); NEUT % 49.3 % (50.0-75.0); NRBC % 0.1 % (0.0-2.0); RBC 4.87 Mil/uL (4.40-5.90); RED CELL DISTRIBUTION WIDTH 18.9 % (11.5-14.5); WHITE BLOOD COUNT 11.5 K/uL (4.8-10.8)
[2017-08-22] MEDS: Multivitamin Vitamin B Complex (Nephro-Vite) Tab PO SCH (08:20)
[2017-08-22 09:15] LABS: ALBUMIN 3.8 g/dL (3.5-5.0); ALT/SGPT 29 U/L (21-72); AST/SGOT 24 U/L (17-59); BLOOD UREA NITROGEN 12 mg/dL (9-20); CALCIUM 8.4 mg/dl (8.6-10.4); GFR AFRICAN-AMERICAN > 60; GFR NON-AFRICAN AMERICAN > 60
[2017-08-22] MEDS: Tobramycin/Dexamethasone (Tobradex) Opth Sol (2.5 ml) OU SCH ×3 (10:27→17:42)
[2017-08-22] MEDS: Bacitracin Ointment 30 GM TUBE TOP SCH (10:28)
--- NOTE | 2017-08-22 11:59 | CP.PCM.PN ---
Subjective - Date & Time of Evaluation Date of Evaluation: 08/22/17 Time of Evaluation: 11:58 - Subjective Subjective: PER DR. Shiloh WALKER PT WAS MADE AWARE YESTERDAY AND LAST NIGHT THAT HE IS FOR DC TODAY. RX AND MED REC DONE YESTERDAY BY MED RESIDENT. D/C INFORMATION AND PLAN ALREADY DONE BY BUILDING SERVICES ENGINEER. NO FURTHER ORDERS BY EYE GLASS FRAME POLISHER. Objective - Vital Signs/Intake and Output Vital Signs (last 24 hours): Temp Pulse Resp BP Pulse Ox 97.5 F L 95 H 20 101/75 100 08/22/17 08:25 08/22/17 08:25 08/22/17 08:25 08/22/17 08:25 08/22/17 08:25 - Medications Medications: Current Medications Artificial Tears (Artificial Tears) 0.1 ml OU BID PRN PRN Reason: Dry eyes Last Admin: 08/17/17 09:31 Dose: 0.1 ml Bacitracin (Bacitracin) 1 gm TOP DAILY [facility] Last Admin: 08/22/17 10:28 Dose: 1 applic Cyanocobalamin (Vitamin B12 1000 Mcg Tab) 1,000 mcg PO DAILY [facility] Last Admin: 08/22/17 10:27 Dose: 1,000 mcg Diphenhydramine HCl (Benadryl) 25 mg IVP Q3H PRN PRN Reason: Allergy symptoms Last Admin: 08/22/17 11:35 Dose: 25 mg Escitalopram Oxalate (Lexapro) 5 mg PO DAILY [facility] Last Admin: 08/22/17 10:27 Dose: 5 mg Hydromorphone HCl (Dilaudid) 1 mg IVP Q3 PRN PRN Reason: Pain, moderate (4-7) Last Admin: 08/22/17 11:35 Dose: 1 mg Cefepime HCl 1 gm/ Dextrose 50 mls @ 100 mls/hr IVPB Q12H [facility] Last Admin: 08/22/17 00:12 Dose: 100 mls/hr Metronidazole (Flagyl) 500 mg in 100 mls @ 100 mls/hr IVPB Q8H [facility] Last Admin: 08/22/17 05:10 Dose: 100 mls/hr Mesalamine (Delzicol) 400 mg PO TID [facility] Last Admin: 08/22/17 10:27 Dose: 400 mg Ondansetron HCl (Zofran Inj) 4 mg IVP Q8 PRN PRN Reason: Nausea/Vomiting Tobramycin/Dexamethasone (Tobradex Opht Susp) 0 ml OU TID [facility] Stop: 08/25/17 23:59 Last Admin: 08/22/17 10:27 Dose: 1 drop Vitamin B Complex/Vit C/Folic Acid (Nephro-Fidelia) 1 tab PO 0800 [facility] Last Admin: 08/22/17 08:20 Dose: 1 tab - Labs Labs: 08/22/17 07:50 08/22/17 07:50 PT 10.9 SECONDS (9.7-12.2) 08/12/17 21:31 INR 1.0 08/12/17 21:31 APTT 24 SECONDS (21-34) 08/12/17 21:31
--- NOTE | 2017-08-22 15:06 | CP.PCM.PN ---
Subjective - Date & Time of Evaluation Date of Evaluation: 08/22/17 Time of Evaluation: 09:40 - Subjective Subjective: clinically same Objective - Vital Signs/Intake and Output Vital Signs (last 24 hours): Temp Pulse Resp BP Pulse Ox 97.5 F L 95 H 20 101/75 100 08/22/17 08:25 08/22/17 08:25 08/22/17 08:25 08/22/17 08:25 08/22/17 08:25 Intake and Output: 08/22/17 08/22/17 06:59 18:59 Intake Total 430 Balance 430 - Medications Medications: Current Medications Artificial Tears (Artificial Tears) 0.1 ml OU BID PRN PRN Reason: Dry eyes Last Admin: 08/17/17 09:31 Dose: 0.1 ml Bacitracin (Bacitracin) 1 gm TOP DAILY [facility] Last Admin: 08/22/17 10:28 Dose: 1 applic Cyanocobalamin (Vitamin B12 1000 Mcg Tab) 1,000 mcg PO DAILY [facility] Last Admin: 08/22/17 10:27 Dose: 1,000 mcg Diphenhydramine HCl (Benadryl) 25 mg IVP Q3H PRN PRN Reason: Allergy symptoms Last Admin: 08/22/17 14:41 Dose: 25 mg Escitalopram Oxalate (Lexapro) 5 mg PO DAILY [facility] Last Admin: 08/22/17 10:27 Dose: 5 mg Hydromorphone HCl (Dilaudid) 1 mg IVP Q3 PRN PRN Reason: Pain, moderate (4-7) Last Admin: 08/22/17 14:40 Dose: 1 mg Cefepime HCl 1 gm/ Dextrose 50 mls @ 100 mls/hr IVPB Q12H [facility] Last Admin: 08/22/17 12:53 Dose: 100 mls/hr Metronidazole (Flagyl) 500 mg in 100 mls @ 100 mls/hr IVPB Q8H [facility] Last Admin: 08/22/17 14:16 Dose: 100 mls/hr Mesalamine (Delzicol) 400 mg PO TID [facility] Last Admin: 08/22/17 14:15 Dose: 400 mg Ondansetron HCl (Zofran Inj) 4 mg IVP Q8 PRN PRN Reason: Nausea/Vomiting Tobramycin/Dexamethasone (Tobradex Opht Susp) 0 ml OU TID [facility] Stop: 08/25/17 23:59 Last Admin: 08/22/17 14:16 Dose: 1 drop Vitamin B Complex/Vit C/Folic Acid (Nephro-Fidelia) 1 tab PO 0800 [facility] Last Admin: 08/22/17 08:20 Dose: 1 tab - Labs Labs: 08/22/17 07:50 08/22/17 07:50 PT 10.9 SECONDS (9.7-12.2) 08/12/17 21:31 INR 1.0 08/12/17 21:31 APTT 24 SECONDS (21-34) 08/12/17 21:31
[2017-08-23] MEDS: DiphenhydrAMINE 50 mg/ml Inj IVP PRN ×5 (00:05→12:47)
[2017-08-23] MEDS: metroNIDAZOLE IV 500 mg/100 ml 500 MG/100 ML BAG IVPB SCH ×2 (05:56→14:54)
[2017-08-23 08:38] VITALS: BP 112/74; PULSE 81; TEMP 97.6; O2SAT 97
[2017-08-23] MEDS: Multivitamin Vitamin B Complex (Nephro-Vite) Tab PO SCH (09:00)
[2017-08-23] MEDS: Bacitracin Ointment 30 GM TUBE TOP SCH (09:43)
[2017-08-23] MEDS: Tobramycin/Dexamethasone (Tobradex) Opth Sol (2.5 ml) OU SCH ×2 (09:46→14:54)
--- NOTE | 2017-08-23 11:49 | CP.PCM.DIS ---
Provider - Provider Date of Admission: 08/12/17 22:05 Attending physician: Alcides Barrett MD Hospital Course - Lab Results Lab Results: Micro Results 08/18/17 18:45 Urine Urine Culture - Final No Growth (<1,000 CFU/ML) 08/13/17 15:00 Blood Blood Culture - Final NO GROWTH AFTER 5 DAYS 08/13/17 15:00 Blood Gram Stain - Final TEST NOT PERFORMED 08/13/17 13:40 Blood Blood Culture - Final NO GROWTH AFTER 5 DAYS 08/13/17 13:40 Blood Gram Stain - Final TEST NOT PERFORMED 08/13/17 21:52 Abscess - Abscess Gram Stain - Final 08/13/17 21:52 Abscess - Abscess Wound Culture - Final Escherichia Coli Enterococcus Faecium 08/13/17 12:18 Urine,Clean Catch Urine Culture - Final Pseudomonas Aeruginosa Most Recent Lab Values WBC 11.5 K/uL (4.8-10.8) H 08/22/17 07:50 RBC 4.87 Mil/uL (4.40-5.90) 08/22/17 07:50 Hgb 11.3 g/dL (12.0-18.0) L 08/22/17 07:50 Hct 34.3 % (35.0-51.0) L 08/22/17 07:50 MCV 70.4 fL (80.0-94.0) L 08/22/17 07:50 MCH 23.2 pg (27.0-31.0) L 08/22/17 07:50 MCHC 32.9 g/dL (33.0-37.0) L 08/22/17 07:50 RDW 18.9 % (11.5-14.5) H 08/22/17 07:50 Plt Count 332 K/uL (130-400) 08/22/17 07:50 MPV 8.6 fL (7.2-11.7) 08/22/17 07:50 Neut % (Auto) 49.3 % (50.0-75.0) L 08/22/17 07:50 Lymph % (Auto) 37.7 % (20.0-40.0) 08/22/17 07:50 [place] % (Auto) 6.2 % (0.0-10.0) 08/22/17 07:50 Eos % (Auto) 6.2 % (0.0-4.0) H 08/22/17 07:50 Baso % (Auto) 0.6 % (0.0-2.0) 08/22/17 07:50 Neut # 5.7 K/uL (1.8-7.0) 08/22/17 07:50 Lymph # 4.3 K/uL (1.0-4.3) 08/22/17 07:50 [place] # 0.7 K/uL (0.0-0.8) 08/22/17 07:50 Eos # 0.7 K/uL (0.0-0.7) 08/22/17 07:50 Baso # 0.1 K/uL (0.0-0.2) 08/22/17 07:50 PT 10.9 SECONDS (9.7-12.2) 08/12/17 21:31 INR 1.0 08/12/17 21:31 APTT 24 SECONDS (21-34) 08/12/17 21:31 Sodium 133 mmol/L (132-148) 08/22/17 07:50 Potassium 3.8 mmol/L (3.6-5.2) 08/22/17 07:50 Chloride 99 mmol/L (98-107) 08/22/17 07:50 Carbon Dioxide 26 mmol/L (22-30) 08/22/17 07:50 Anion Gap 12 (10-20) 08/22/17 07:50 BUN 12 mg/dL (9-20) 08/22/17 07:50 Creatinine 0.7 mg/dL (0.8-1.5) L 08/22/17 07:50 Est GFR ( Amer) > 60 08/22/17 07:50 Est GFR (Non-Af Amer) > 60 08/22/17 07:50 Random Glucose 70 mg/dL (75-110) L 08/22/17 07:50 Calcium 8.4 mg/dl (8.6-10.4) L 08/22/17 07:50 Total Bilirubin 0.3 mg/dL (0.2-1.3) 08/22/17 07:50 AST 24 U/L (17-59) 08/22/17 07:50 ALT 29 U/L (21-72) 08/22/17 07:50 Alkaline Phosphatase 92 U/L (38-126) 08/22/17 07:50 Total Protein 7.4 g/dL (6.3-8.3) 08/22/17 07:50 Albumin 3.8 g/dL (3.5-5.0) 08/22/17 07:50 Globulin 3.6 gm/dL (2.2-3.9) 08/22/17 07:50 Albumin/Globulin Ratio 1.0 (1.0-2.1) 08/22/17 07:50 Urine Color Yellow (YELLOW) 08/18/17 18:50 Urine Clarity Hazy (Clear) 08/18/17 18:50 Urine pH 8.0 (5.0-8.0) 08/18/17 18:50 Ur Specific [place] 1.012 (1.003-1.030) 08/18/17 18:50 Urine Protein Negative mg/dL (NEGATIVE) 08/18/17 18:50 Urine Glucose (UA) Normal mg/dL (Normal) 08/18/17 18:50 Urine Ketones Negative mg/dL (NEGATIVE) 08/18/17 18:50 Urine Blood Negative (NEGATIVE) 08/18/17 18:50 Urine Nitrate Negative (NEGATIVE) 08/18/17 18:50 Urine Bilirubin Negative (NEGATIVE) 08/18/17 18:50 Urine Urobilinogen Normal mg/dL (0.2-1.0) 08/18/17 18:50 Ur Leukocyte Esterase Neg Silvestre/uL (Negative) 08/18/17 18:50 Urine WBC (Auto) 2 /hpf (0-5) 08/18/17 18:50 Urine RBC (Auto) 1 /hpf (0-3) 08/18/17 18:50 Ur Transition Epith Cell < 1 /hpf (0-3) 08/18/17 18:50 Amorphous Sediment Rare /ul (<OCC) H 08/18/17 18:50 Urine Bacteria Rare (<OCC) 08/18/17 18:50 Urine Opiates Screen Positive (NEGATIVE) H 08/13/17 02:06 Urine Methadone Screen Negative (NEGATIVE) 08/13/17 02:06 Ur Barbiturates Screen Negative (NEGATIVE) 08/13/17 02:06 Ur Phencyclidine Scrn Negative (NEGATIVE) 08/13/17 02:06 Ur Amphetamines Screen Negative (NEGATIVE) 08/13/17 02:06 U Benzodiazepines Scrn Negative (NEGATIVE) 08/13/17 02:06 U Oth Cocaine Metabols Negative (NEGATIVE) 08/13/17 02:06 U Cannabinoids Screen Positive (NEGATIVE) H 08/13/17 02:06 Blood Type B POSITIVE 08/12/17 21:05 Antibody Screen Negative 08/12/17 21:05 Discharge Exam - Head Exam Head Exam: ATRAUMATIC, NORMAL INSPECTION, NORMOCEPHALIC Discharge Plan - Discharge Medications Prescriptions: Dexamethasone/Tobramycin [Tobradex Opht Susp] 0 ml OU TID #1 bottle - Follow Up Plan Condition: GOOD Disposition: HOME/ ROUTINE Instructions: Crohn Disease (DC) Additional Instructions: Patient is stable for discharge home 08/22/[address] Barrett. Patient is to resume home medications with addition of new medication: TobraDex eye drops, 1- 2 drops to be applied three times daily. Patient is to follow up with Dr. Barrett on discharge. Patient will need to see an general doc on discharge. Patient is to return to the ED if his symptoms worsen or re-occur. Referrals: Pankaj Gipson MD [Staff Provider] - Osvaldo Barrett MD [Staff Provider] - Temo Taylor MD [Staff Provider] - Santosh Daniel MD [Staff Provider] -
--- NOTE | 2017-08-23 14:13 | CP.PCM.PN ---
Subjective - Date & Time of Evaluation Date of Evaluation: 08/23/17 Time of Evaluation: 09:00 - Subjective Subjective: House resident called to remove the PICC line. PICC line was removed. Patient tolerated well. No blood loss. Tip in tact measuring 42. Dressing applied. Yvette German PGY2 Objective - Vital Signs/Intake and Output Vital Signs (last 24 hours): Temp Pulse Resp BP Pulse Ox 97.6 F 81 20 112/74 97 08/23/17 08:37 08/23/17 08:37 08/23/17 08:37 08/23/17 08:37 08/23/17 08:37 Intake and Output: 08/23/17 08/23/17 06:59 18:59 Intake Total 850 Output Total 700 Balance 150 - Medications Medications: Current Medications Artificial Tears (Artificial Tears) 0.1 ml OU BID PRN PRN Reason: Dry eyes Last Admin: 08/17/17 09:31 Dose: 0.1 ml Bacitracin (Bacitracin) 1 gm TOP DAILY [facility] Last Admin: 08/23/17 09:43 Dose: Not Given Cyanocobalamin (Vitamin B12 1000 Mcg Tab) 1,000 mcg PO DAILY [facility] Last Admin: 08/23/17 09:44 Dose: 1,000 mcg Diphenhydramine HCl (Benadryl) 25 mg IVP Q3H PRN PRN Reason: Allergy symptoms Last Admin: 08/23/17 12:47 Dose: 25 mg Escitalopram Oxalate (Lexapro) 5 mg PO DAILY [facility] Last Admin: 08/23/17 09:44 Dose: 5 mg Hydromorphone HCl (Dilaudid) 1 mg IVP Q3 PRN PRN Reason: Pain, moderate (4-7) Last Admin: 08/23/17 12:44 Dose: 1 mg Cefepime HCl 1 gm/ Dextrose 50 mls @ 100 mls/hr IVPB Q12H [facility] Last Admin: 08/23/17 12:45 Dose: 100 mls/hr Metronidazole (Flagyl) 500 mg in 100 mls @ 100 mls/hr IVPB Q8H [facility] Last Admin: 08/23/17 05:56 Dose: 100 mls/hr Mesalamine (Delzicol) 400 mg PO TID [facility] Last Admin: 08/23/17 09:44 Dose: 400 mg Ondansetron HCl (Zofran Inj) 4 mg IVP Q8 PRN PRN Reason: Nausea/Vomiting Tobramycin/Dexamethasone (Tobradex Opht Susp) 0 ml OU TID [facility] Stop: 08/25/17 23:59 Last Admin: 08/23/17 09:46 Dose: 1 drop Vitamin B Complex/Vit C/Folic Acid (Nephro-Fidelia) 1 tab PO 0800 [facility] Last Admin: 08/23/17 09:00 Dose: 1 tab - Labs Labs: 08/22/17 07:50 08/22/17 07:50 PT 10.9 SECONDS (9.7-12.2) 08/12/17 21:31 INR 1.0 08/12/17 21:31 APTT 24 SECONDS (21-34) 08/12/17 21:31
== END 2017-08-23 15:41 | disposition home health service (06) | DRG 179 ==
LOC: C.ER 19:22 → C.9E 22:05 → C.5S 08-13 02:17 → C.3T 08-22 19:16
PROVIDERS: ADMIT Internal Medicine Nephrology; ATTEND Internal Medicine Nephrology
DX: K50.113 Crohn's disease of large intestine with fistula (principal); L02.215 Cutaneous abscess of perineum; R04.2 Hemoptysis; N39.0 Urinary tract infection, site not specified; N18.9 Chronic kidney disease, unspecified; B96.5 Pseudomonas (aeruginosa) (mallei) (pseudomallei) as the cause of diseases classified elsewhere; L98.419 Non-pressure chronic ulcer of buttock with unspecified severity; F32.9 Major depressive disorder, single episode, unspecified; K62.89 Other specified diseases of anus and rectum; F41.9 Anxiety disorder, unspecified; G89.29 Other chronic pain; H57.11 Ocular pain, right eye; B95.2 Enterococcus as the cause of diseases classified elsewhere; B96.20 Unspecified Escherichia coli [E. coli] as the cause of diseases classified elsewhere; Z93.3 Colostomy status; Z90.49 Acquired absence of other specified parts of digestive tract; Z86.718 Personal history of other venous thrombosis and embolism; Z88.5 Allergy status to narcotic agent

== ENCOUNTER 2017-08-28 20:23 | Inpatient (IN) | payer MEDICAID ==
[2017-08-28 20:24] VITALS: BMI 20.6
[2017-08-28] MEDS ORDERED: Sodium Chloride 0.9% 1,000 ML IV ONE (22:16)
--- NOTE | 2017-08-28 22:16 | C.PDOC ---
History Of Present Illness Patient presents to ED with complaints of chest pain and bleeding from rectal abscess. Patient denies fever, chills, nausea, or vomiting. Patient has had numerous admissions and consults for similar symptoms. Time Seen by Provider: 08/28/17 22:15 Chief Complaint (Nursing): Chest Pain History Per: Patient History/Exam Limitations: no limitations Onset/Duration Of Symptoms: Hrs Current Symptoms Are (Timing): Still Present Severity: Moderate Pain Scale Rating Of: 4 Associated Symptoms: denies: Nausea, Dyspnea, Diaphoresis, Syncope Modifying Factors: None Exacerbating Factors: None Alleviating Factors: None Recent travel outside of the [place]: No Additional History Per: Patient Past Medical History Reviewed: Historical Data, Nursing Documentation, Vital Signs Vital Signs: Last Vital Signs Temp 99.5 F 08/28/17 20:54 Pulse 93 H 08/28/17 23:19 Resp 14 08/28/17 23:19 BP 118/79 08/28/17 23:19 Pulse Ox 100 08/28/17 23:19 - Medical History PMH: Crohn's Disease (COLOSTOMY 2015), Depression - [facility] Procedures DRAINAGE OF BACK SKIN, EXTERNAL APPROACH (06/22/17) DRAINAGE OF BACK SUBCU/FASCIA, OPEN APPROACH (10/21/16) DRAINAGE OF BUTTOCK SKIN, EXTERNAL APPROACH, DIAGNOSTIC (09/23/16) DRAINAGE OF BUTTOCK SUBCU/FASCIA, OPEN APPROACH (03/22/17) DRAINAGE OF BUTTOCK SUBCU/FASCIA, OPEN APPROACH, DIAGN (03/22/17) DRAINAGE OF LEFT AXILLA, OPEN APPROACH (12/21/16) DRAINAGE OF PERINEUM SKIN, EXTERNAL APPROACH (06/22/17) DRAINAGE OF PERINEUM SUBCU/FASCIA, OPEN APPROACH (01/30/17) EXCISION OF BACK SKIN, EXTERNAL APPROACH (09/23/16) EXCISION OF BACK SUBCU/FASCIA, OPEN APPROACH (10/21/16) EXCISION OF BUTTOCK SKIN, EXTERNAL APPROACH (03/22/17) EXCISION OF BUTTOCK SUBCU/FASCIA, OPEN APPROACH (10/21/16) EXCISION OF LEFT AXILLARY LYMPHATIC, OPEN APPROACH (12/21/16) EXCISION OF PERINEUM SKIN, EXTERNAL APPROACH (03/22/17) EXTRACTION OF BUTTOCK SKIN, EXTERNAL APPROACH (09/23/16) EXTRACTION OF PERINEUM SUBCU/FASCIA, OPEN APPROACH (01/30/17) GROUP PSYCHOTHERAPY (11/25/16) INDIVIDUAL PSYCHOTHERAPY, COGNITIVE-BEHAVIORAL (11/25/16) INDIVIDUAL PSYCHOTHERAPY, SUPPORTIVE (05/23/17) INSERTION OF INFUSION DEV INTO SUP VENA CAVA, PERC APPROACH (08/12/17) REMOVAL OF INFUSION DEV FROM GREAT VESSEL, SWITCH REPAIRER APPROACH (12/21/16) REMOVAL OF RESERVOIR FROM TRUNK SUBCU/FASCIA, OPEN APPROACH (07/07/17) ULTRASONOGRAPHY OF SUPERIOR VENA CAVA, GUIDANCE (05/23/17) Family History: States: No Known Family Hx - Social History Hx Alcohol Use: No Hx Substance Use: No - Immunization History Hx Tetanus Toxoid Vaccination: No Hx Influenza Vaccination: Yes Hx Pneumococcal Vaccination: No Review Of Systems Constitutional: Negative for: Fever, Chills Cardiovascular: Positive for: Chest Pain Gastrointestinal: Positive for: Other (Bleeding from rectal abscess ). Negative for: Nausea, Vomiting Neurological: Negative for: Weakness Psych: Negative for: Depression, Suicidal ideation Physical Exam - Physical Exam Appears: Non-toxic, Other (Awake and alert) Skin: Warm, Dry Head: Normacephalic Eye(s): bilateral: Normal Inspection Oral Mucosa: Moist Neck: Supple Chest: Symmetrical, No Tenderness Cardiovascular: Rhythm Regular Respiratory: No Rales, No Rhonchi, No Wheezing Gastrointestinal/Abdominal: Soft, Tenderness (Mildly), Other (colostomy LLQ) Back: Normal Inspection Extremity: No Tenderness Extremity: Bilateral: Atraumatic Pulses: Left Dorsalis Pedis: Normal, Right Dorsalis Pedis: Normal Neurological/Psych: Oriented x3, Normal Speech, Normal Cognition Gait: Steady ED Course And Treatment - Laboratory Results Result Diagrams: 08/28/17 22:54 08/28/17 22:54 ECG: Interpreted By Me, Viewed By Me O2 Sat by Pulse Oximetry: 98 (Room air) Pulse Ox Interpretation: Normal - Radiology CXR Interpretation: No: Infiltrates, Fracture, Pnemothorax Progress Note: Administered Pepcid, Benadryl, Dilaudid, Zofran and IV fluids. Ordered EKG, blood work, CXR, and Urinalysis. Disposition Discussed With : Osvaldo Barrett Comment: accepted the pt on his service and took over the care at 12AM Doctor Will See Patient In The: Hospital Counseled Patient/Family Regarding: Studies Performed, Diagnosis - Disposition Disposition: HOSPITALIZED Disposition Time: 22:16 Condition: GUARDED Forms: [facility] (Lithuanian) - POA Present On Arrival: None - Clinical Impression Clinical Impression: Chest discomfort, Crohn disease, Intractable pain, Wound of right buttock - Scribe Statement The provider has reviewed the documentation as recorded by the Laneyibe Brad Butler All medical record entries made by the Scribe were at my direction and personally dictated by me. I have reviewed the chart and agree that the record accurately reflects my personal performance of the history, physical exam, medical decision making, and the department course for this patient. I have also personally directed, reviewed, and agree with the discharge instructions and disposition. Decision To Admit - Pt Status Changed To: Hospital Disposition Of: Inpatient - Admit Certification Admit to Inpatient:: After my assessment, the patient will require hospitalization for at least two midnights. This is because of the severity of symptoms shown, intensity of services needed, and/or the medical risk in this patient being treated as an outpatient. - InPatient: Physician Admission Certification: I certify that this patient requires 2 or more midnights of care for the following reason:: After my assessment, the patient will require hospitalization for at least two midnights. This is because of the severity of symptoms shown, intensity of services needed, and/or the medical risk in this patient being treated as an outpatient - . Bed Request Type: Regular Admitting Physician: Osvaldo Barrett Patient Diagnosis: Chest discomfort, Crohn disease, Intractable pain, Wound of right buttock
[2017-08-28] MEDS ORDERED: DiphenhydrAMINE 50 mg/ml Inj IVP STA (22:47)
[2017-08-28 22:58] LABS: BASO # 0.1 K/uL (0.0-0.2); BASO % 0.5 % (0.0-2.0); EOS # 0.1 K/uL (0.0-0.7); EOS % 0.8 % (0.0-4.0); HEMOGLOBIN 11.6 g/dL (12.0-18.0); LYMPH # 4.2 K/uL (1.0-4.3); LYMPH % 22.5 % (20.0-40.0); MEAN CELL VOLUME 69.9 fL (80.0-94.0); MEAN CORPUSCULAR HGB CONC 32.9 g/dL (33.0-37.0); MEAN PLATELET VOLUME 8.7 fL (7.2-11.7); MONO # 1.2 K/uL (0.0-0.8); MONO % 6.3 % (0.0-10.0); NEUT # 13.1 K/uL (1.8-7.0); NEUT % 69.9 % (50.0-75.0); RBC 5.06 Mil/uL (4.40-5.90); WHITE BLOOD COUNT 18.7 K/uL (4.8-10.8)
[2017-08-28 23:05] LABS: PROTHROMBIN TIME 10.7 SECONDS (9.7-12.2)
[2017-08-28 23:09] LABS: ALT/SGPT 33 U/L (21-72); AST/SGOT 38 U/L (17-59); BLOOD UREA NITROGEN 12 mg/dL (9-20); CALCIUM 8.4 mg/dl (8.6-10.4); GFR AFRICAN-AMERICAN > 60; GFR NON-AFRICAN AMERICAN > 60; LIPASE 278 U/L (23-300)
[2017-08-29] MEDS ORDERED: Sodium Chloride 0.9% 1,000 ML IV ONE (00:39)
[2017-08-29] MEDS ORDERED: DiphenhydrAMINE 50 mg/ml Inj IVP STA (00:43)
[2017-08-29] MEDS ORDERED: DiphenhydrAMINE 50 mg/ml Inj ONE ×4 (00:52→13:12)
[2017-08-29] MEDS ORDERED: Sodium Chloride 0.9% 1,000 ML ONE (00:52)
[2017-08-29] MEDS ORDERED: Gentamicin 80 mg/2mL Inj. IVPB STA (00:58)
[2017-08-29] MEDS ORDERED: Vancomycin 1 GM 1 GM/250 ML BAG IVPB SCH (01:00)
[2017-08-29] MEDS ORDERED: Gentamicin 330 MG in Sodium Chloride 0.9% 250 ML IVPB ONE (01:15)
[2017-08-29] MEDS ORDERED: DiphenhydrAMINE 50 mg/ml Inj IVP PRN (04:08)
[2017-08-29] MEDS: DiphenhydrAMINE 50 mg/ml Inj IVP PRN ×6 (04:35→21:20)
--- NOTE | 2017-08-29 05:46 | CP.PCM.CON ---
<Doris Foster - Last Filed: 08/29/17 05:43> History of Present Illness - History of Present Illness History of Present Illness: Surgery Pt is a 22 y.o M w/ PMHx of Crohn's disease and recurrent abscesses. 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 Pt reports non-healing ulcers along mid gluteal region and perineal region. reports foul smelling drainage and has to change gauze multiple times a day. Drainage has been increasing and size of wound is getting bigger as well. Pt reports BM per rectum as well as stoma output. Denies F/C?N/V/D/Cp/SOB/hematochezia/ hematemesis. PMHx - see above PSHx - colon resection, colostomy, multiple I&D Allergies - Morphine Social - denies drug use, alcohol use, tobacco use Review of Systems - Review of Systems Review of Systems: See HPI Past Patient History - Infectious Disease Hx of Infectious Diseases: None - Past Medical History & Family History Past Medical History?: Yes - Past Social History Smoking Status: Never Smoked - CARDIAC Hx Cardiac Disorders: No - PULMONARY Hx Respiratory Disorders: No - NEUROLOGICAL Hx Neurological Disorder: No - HEENT Hx HEENT Problems: No - RENAL Hx Chronic Kidney Disease: No - ENDOCRINE/METABOLIC Hx Endocrine Disorders: No - HEMATOLOGICAL/ONCOLOGICAL Hx Blood Disorders: No - INTEGUMENTARY Hx Dermatological Problems: Yes Other/Comment: Perineal wound. Rectal abcess - MUSCULOSKELETAL/RHEUMATOLOGICAL Hx Falls: Yes - GASTROINTESTINAL Hx Crohn's Disease: Yes (COLOSTOMY 2016) - GENITOURINARY/GYNECOLOGICAL Hx Genitourinary Disorders: No - PSYCHIATRIC Hx Depression: Yes Hx Substance Use: No - SURGICAL HISTORY Hx Surgeries: Yes (SEE COMMENT) Other/Comment: LOOP COLOSTOMY. Perineal wound. COLON RESECTION - ANESTHESIA Hx Anesthesia: Yes Hx Anesthesia Reactions: No Hx Malignant Hyperthermia: No Meds Allergies/Adverse Reactions: Allergies Allergy/AdvReac Type Severity Reaction Status Date / Time morphine Allergy Severe ITCHING Verified 08/28/17 21:00 - Medications Medications: Current Medications Diphenhydramine HCl (Benadryl) 25 mg IVP Q4 PRN PRN Reason: Rash Last Admin: 08/29/17 04:35 Dose: 25 mg Hydromorphone HCl (Dilaudid) 2 mg IVP Q4H PRN PRN Reason: Pain, severe (8-10) Last Admin: 08/29/17 04:34 Dose: 2 mg Vancomycin HCl (Vancomycin 1gm In Normal Saline Addvantage) 1 gm in 250 mls @ 166.667 mls/hr IVPB STAT [facility] Gentamicin Sulfate 330 mg/ (Sodium Chloride) 108.25 mls @ 100 mls/hr IVPB ONCE ONE Stop: 08/29/17 11:04 Physical Exam - Constitutional Appears: No Acute Distress - Head Exam Head Exam: ATRAUMATIC, NORMAL INSPECTION, NORMOCEPHALIC - Eye Exam Eye Exam: EOMI, Normal appearance, PERRL Pupil Exam: NORMAL ACCOMODATION, PERRL - ENT Exam ENT Exam: Mucous Membranes Moist, Normal Exam - Neck Exam Neck exam: Positive for: Normal Inspection - Respiratory Exam Respiratory Exam: Clear to Auscultation Bilateral, NORMAL BREATHING PATTERN - Cardiovascular Exam Cardiovascular Exam: REGULAR RHYTHM - GI/Abdominal Exam GI & Abdominal Exam: Normal Bowel Sounds, Soft. absent: Distended, Firm, Guarding, Hernia, Tenderness Additional comments: Stoma in place - Rectal Exam Additional comments: Gluteal midline has 5x1cm ulceration. Eryhtema. TTP. purulent drainage. - Extremities Exam Extremities exam: Positive for: full ROM, normal inspection - Back Exam Back exam: NORMAL INSPECTION - Neurological Exam Neurological exam: Alert, CN II-XII Intact, Normal Gait, Oriented x3, Reflexes Normal - Psychiatric Exam Psychiatric exam: Normal Affect, Normal Mood - Skin Skin Exam: Erythema, Warm Results - Vital Signs Recent Vital Signs: Last Vital Signs Temp 98.8 F 08/29/17 00:42 Pulse 81 08/29/17 04:20 Resp 19 08/29/17 04:20 BP 112/73 08/29/17 04:20 Pulse Ox 100 08/29/17 04:20 - Labs Result Diagrams: 08/28/17 22:54 08/28/17 22:54 Labs: Laboratory Results - last 24 hr 08/28/17 08/28/17 08/28/17 22:54 22:54 22:54 WBC 18.7 H D RBC 5.06 Hgb 11.6 L Hct 35.3 MCV 69.9 L MCH 23.0 L MCHC 32.9 L RDW 19.0 H Plt Count 290 MPV 8.7 Neut % (Auto) 69.9 Lymph % (Auto) 22.5 [place] % (Auto) 6.3 Eos % (Auto) 0.8 Baso % (Auto) 0.5 Neut # 13.1 H Lymph # 4.2 [place] # 1.2 H Eos # 0.1 Baso # 0.1 PT 10.7 INR 1.0 APTT 22 Sodium 134 Potassium 4.2 Chloride 101 Carbon Dioxide 23 Anion Gap 14 BUN 12 Creatinine 0.6 L Est GFR ( Amer) > 60 Est GFR (Non-Af Amer) > 60 Random Glucose 95 Calcium 8.4 L Total Bilirubin 0.5 AST 38 ALT 33 Alkaline Phosphatase 81 Total Protein 8.1 Albumin 4.0 Globulin 4.1 H Albumin/Globulin Ratio 1.0 Lipase 278 Assessment & Plan - Assessment and Plan (Free Text) Assessment: Gluteal abscess/ fistula -Monitor drainage -medical management Will DW Dr. Taylor <Temo Taylor - Last Filed: 09/06/17 19:34> Meds - Medications Medications: Current Medications Ascorbic Acid (Vitamin C 500 Mg Tab) 500 mg PO DAILY [facility] Last Admin: 09/06/17 13:05 Dose: 500 mg Cyanocobalamin (Vitamin B12 1000 Mcg Tab) 1,000 mcg PO DAILY [facility] Last Admin: 09/06/17 10:34 Dose: 1,000 mcg Diphenhydramine HCl (Benadryl) 25 mg IVP Q3H PRN PRN Reason: Allergy symptoms Last Admin: 09/06/17 19:04 Dose: 25 mg Escitalopram Oxalate (Lexapro) 5 mg PO DAILY PRN PRN Reason: Anxiety Last Admin: 09/06/17 10:26 Dose: 5 mg Hydromorphone HCl (Dilaudid) 2 mg IVP Q3 [facility] Last Admin: 09/06/17 19:04 Dose: 2 mg Meropenem 1 gm/ Sodium (Chloride) 100 mls @ 100 mls/hr IVPB Q8 [facility] Vancomycin/Sodium Chloride (Vancomycin 1 Gm/Ns 200 Ml) 1 gm in 200 mls @ 166.7 mls/hr IVPB Q24H [facility] Stop: 09/11/17 16:01 Last Admin: 09/06/17 16:06 Dose: 166.7 mls/hr Mesalamine (Delzicol) 800 mg PO TID [facility] Last Admin: 09/06/17 19:05 Dose: 800 mg Multivitamins/Minerals (Therapeutic-M Tab) 1 tab PO 0800 [facility] Last Admin: 09/06/17 08:33 Dose: 1 tab Mupirocin (Bactroban Ointment) 0 gm TOP DAILY PRN PRN Reason: SEE COMMENTS Last Admin: 09/06/17 10:33 Dose: 1 applic Pantoprazole Sodium (Protonix Ec Tab) 40 mg PO BID [facility] Last Admin: 09/06/17 19:05 Dose: 40 mg Tobramycin/Dexamethasone (Tobradex Opht Susp) 0.3 ml OU TID [facility] Last Admin: 09/06/17 19:06 Dose: 2 drop Trimethoprim/Sulfamethoxazole (Bactrim Ds Tab) 1 tab PO Q12H [facility] Results - Vital Signs Recent Vital Signs: Last Vital Signs Temp 98.7 F 09/06/17 15:00 Pulse 76 09/06/17 18:00 Resp 20 09/06/17 15:00 BP 108/74 09/06/17 18:00 Pulse Ox 99 09/06/17 15:00 - Labs Result Diagrams: 09/01/17 16:13 09/01/17 16:13 Attending/Attestation - Attestation I have personally seen and examined this patient.: Yes I have fully participated in the care of the patient.: Yes I have reviewed all pertinent clinical information: Yes Notes (Text): Pt was seen and examined at bedside Agree with above note and assessment Pt with Crohns dis and Perineal wound Purulent discharge present No drainable collection C/w IV antibiotics C.w current mx Plan d.w pt in detail Risk and benefit explained in detail.
[2017-08-29] MEDS ORDERED: Gentamicin 330 MG in Sodium Chloride 0.9% 100 ML IVPB ONE (10:00)
--- NOTE | 2017-08-29 15:36 | RAD ---
PROCEDURE: CHEST RADIOGRAPH, 1 VIEW HISTORY: abd pain COMPARISON: Comparison is made with 08/14/2017 FINDINGS: LUNGS: Clear. PLEURA: No pneumothorax or pleural fluid seen. CARDIOVASCULAR: Normal. OSSEOUS STRUCTURES: No significant abnormalities. VISUALIZED UPPER ABDOMEN: Normal. OTHER FINDINGS: None. IMPRESSION: No active disease.
--- NOTE | 2017-08-29 15:37 | CP.PCM.HP ---
Past Patient History - Infectious Disease Hx of Infectious Diseases: None - Past Medical History & Family History Past Medical History?: Yes - Past Social History Smoking Status: Never Smoked - CARDIAC Hx Cardiac Disorders: No - PULMONARY Hx Respiratory Disorders: No - NEUROLOGICAL Hx Neurological Disorder: No - HEENT Hx HEENT Problems: No - RENAL Hx Chronic Kidney Disease: No - ENDOCRINE/METABOLIC Hx Endocrine Disorders: No - HEMATOLOGICAL/ONCOLOGICAL Hx Blood Disorders: No - INTEGUMENTARY Hx Dermatological Problems: Yes Other/Comment: Perineal wound. Rectal abcess - MUSCULOSKELETAL/RHEUMATOLOGICAL Hx Falls: Yes - GASTROINTESTINAL Hx Crohn's Disease: Yes (COLOSTOMY 2016) - GENITOURINARY/GYNECOLOGICAL Hx Genitourinary Disorders: No - PSYCHIATRIC Hx Depression: Yes Hx Substance Use: No - SURGICAL HISTORY Hx Surgeries: Yes (SEE COMMENT) Other/Comment: LOOP COLOSTOMY. Perineal wound. COLON RESECTION - ANESTHESIA Hx Anesthesia: Yes Hx Anesthesia Reactions: No Hx Malignant Hyperthermia: No Meds Allergies/Adverse Reactions: Allergies Allergy/AdvReac Type Severity Reaction Status Date / Time morphine Allergy Severe ITCHING Verified 08/28/17 21:00 Physical Exam - Constitutional Appears: Well - Head Exam Head Exam: ATRAUMATIC, NORMAL INSPECTION, NORMOCEPHALIC - Eye Exam Eye Exam: EOMI, Normal appearance, PERRL Pupil Exam: NORMAL ACCOMODATION, PERRL - ENT Exam ENT Exam: Mucous Membranes Moist, Normal Exam - Neck Exam Neck exam: Positive for: Normal Inspection - Respiratory Exam Respiratory Exam: Decreased Breath Sounds - Cardiovascular Exam Cardiovascular Exam: REGULAR RHYTHM, +S1, +S2 - GI/Abdominal Exam GI & Abdominal Exam: Diminished Bowel Sounds, Soft - Rectal Exam Rectal Exam: Deferred Results - Vital Signs Recent Vital Signs: Last Vital Signs Temp 98.8 F 08/29/17 00:42 Pulse 91 H 08/29/17 06:31 Resp 12 08/29/17 06:31 BP 106/63 08/29/17 06:31 Pulse Ox 98 08/29/17 06:31 - Labs Result Diagrams: 08/28/17 22:54 08/28/17 22:54 Labs: Laboratory Results - last 24 hr 08/28/17 08/28/17 08/28/17 22:54 22:54 22:54 WBC 18.7 H D RBC 5.06 Hgb 11.6 L Hct 35.3 MCV 69.9 L MCH 23.0 L MCHC 32.9 L RDW 19.0 H Plt Count 290 MPV 8.7 Neut % (Auto) 69.9 Lymph % (Auto) 22.5 [place] % (Auto) 6.3 Eos % (Auto) 0.8 Baso % (Auto) 0.5 Neut # 13.1 H Lymph # 4.2 [place] # 1.2 H Eos # 0.1 Baso # 0.1 PT 10.7 INR 1.0 APTT 22 Sodium 134 Potassium 4.2 Chloride 101 Carbon Dioxide 23 Anion Gap 14 BUN 12 Creatinine 0.6 L Est GFR ( Amer) > 60 Est GFR (Non-Af Amer) > 60 Random Glucose 95 Calcium 8.4 L Total Bilirubin 0.5 AST 38 ALT 33 Alkaline Phosphatase 81 Total Protein 8.1 Albumin 4.0 Globulin 4.1 H Albumin/Globulin Ratio 1.0 Lipase 278
[2017-08-29] MEDS ORDERED: Vancomycin 1 GM 1 GM/250 ML BAG IVPB ONE (18:00)
[2017-08-29] MEDS: Pantoprazole 40 mg EC Tab PO SCH (18:45)
[2017-08-29] MEDS: Tobramycin/Dexamethasone (Tobradex) Opth Sol (2.5 ml) OU SCH (18:46)
[2017-08-29] MEDS ORDERED: Pneumococcal 23-Valent Vaccine IM ONE (19:54)
[2017-08-29] MEDS ORDERED: DiphenhydrAMINE 50 mg/ml Inj IVP SCH (20:00)
[2017-08-29] MEDS: Meropenem IV 1 gm in NS 50 ML IVPB SCH (23:36)
[2017-08-30] MEDS ORDERED: Meropenem 1 GM in Sodium Chloride 0.9% 100 ML IVPB SCH
[2017-08-30] MEDS: DiphenhydrAMINE 50 mg/ml Inj IVP PRN ×6 (01:20→22:09)
[2017-08-30] MEDS: Meropenem IV 1 gm in NS 50 ML IVPB SCH ×2 (08:30→16:12)
[2017-08-30] MEDS: Multivitamin With Minerals Tab PO SCH (08:30)
[2017-08-30] MEDS: Enoxaparin 40 mg Syringe SC SCH (09:59)
[2017-08-30] MEDS: Pantoprazole 40 mg EC Tab PO SCH ×2 (09:59→18:03)
[2017-08-30] MEDS: Tobramycin/Dexamethasone (Tobradex) Opth Sol (2.5 ml) OU SCH ×3 (10:01→18:07)
[2017-08-30 10:27] LABS: SQUAMOUS EPITHIAL < 1 /hpf (0-5); URINE BILIRUBIN NEGATIVE (NEGATIVE); URINE BLOOD NEGATIVE (NEGATIVE); URINE CLARITY Clear (Clear); URINE COLOR Yellow (YELLOW); URINE GLUCOSE (UA) NORMAL (Normal); URINE LEUKOCYTE ESTERASE NEG Leu/uL (Negative); URINE NITRATE NEGATIVE (NEGATIVE); URINE PROTEIN NEGATIVE (NEGATIVE); URINE UROBILINOGEN NORMAL mg/dL (0.2-1.0)
--- NOTE | 2017-08-30 20:18 | CP.PCM.PN ---
Subjective - Date & Time of Evaluation Date of Evaluation: 08/30/17 Time of Evaluation: 09:00 - Subjective Subjective: clinically same Objective - Vital Signs/Intake and Output Vital Signs (last 24 hours): Temp Pulse Resp BP Pulse Ox 98.9 F 117 H 20 118/74 99 08/30/17 17:51 08/30/17 17:51 08/30/17 17:51 08/30/17 17:51 08/30/17 17:51 Intake and Output: 08/30/17 08/31/17 18:59 06:59 Intake Total 530 Output Total 700 Balance -170 - Medications Medications: Current Medications Ascorbic Acid (Vitamin C 500 Mg Tab) 500 mg PO DAILY [facility] Last Admin: 08/30/17 09:59 Dose: 500 mg Cyanocobalamin (Vitamin B12 1000 Mcg Tab) 1,000 mcg PO DAILY [facility] Last Admin: 08/30/17 09:59 Dose: 1,000 mcg Diphenhydramine HCl (Benadryl) 25 mg IVP Q3H PRN PRN Reason: Allergy symptoms Last Admin: 08/30/17 19:13 Dose: 25 mg Enoxaparin Sodium (Lovenox) 40 mg SC DAILY [facility] Last Admin: 08/30/17 09:59 Dose: 40 mg Escitalopram Oxalate (Lexapro) 5 mg PO DAILY PRN PRN Reason: Anxiety Last Admin: 08/29/17 18:47 Dose: 5 mg Hydromorphone HCl (Dilaudid) 2 mg IVP Q3 [facility] Last Admin: 08/30/17 19:15 Dose: 2 mg Vancomycin HCl 1 gm/ Sodium (Chloride) 250 mls @ 166.7 mls/hr IVPB Q24H [facility] Last Admin: 08/30/17 18:03 Dose: 166.7 mls/hr Meropenem 1 gm/ Sodium (Chloride) 100 mls @ 100 mls/hr IVPB Q8H [facility] Mesalamine (Delzicol) 800 mg PO TID [facility] Last Admin: 08/30/17 18:03 Dose: 800 mg Multivitamins/Minerals (Therapeutic-M Tab) 1 tab PO 0800 [facility] Last Admin: 08/30/17 08:30 Dose: 1 tab Pantoprazole Sodium (Protonix Ec Tab) 40 mg PO BID [facility] Last Admin: 08/30/17 18:03 Dose: 40 mg Pneumococcal Polyvalent Vaccine (Pneumovax 23 Vaccine) 0.5 ml IM .ONCE ONE Stop: 09/01/17 10:01 Tobramycin/Dexamethasone (Tobradex Opht Susp) 0.3 ml OU TID [facility] Last Admin: 08/30/17 18:07 Dose: 2 drop - Labs Labs: 08/28/17 22:54 08/28/17 22:54 PT 10.7 SECONDS (9.7-12.2) 08/28/17 22:54 INR 1.0 08/28/17 22:54 APTT 22 SECONDS (21-34) 08/28/17 22:54
[2017-08-31] MEDS: DiphenhydrAMINE 50 mg/ml Inj IVP PRN ×8 (01:10→22:00)
[2017-08-31] MEDS: Enoxaparin 40 mg Syringe SC SCH (10:15)
[2017-08-31] MEDS: Multivitamin With Minerals Tab PO SCH (10:15)
[2017-08-31] MEDS: Pantoprazole 40 mg EC Tab PO SCH ×2 (10:15→17:28)
[2017-08-31] MEDS: Tobramycin/Dexamethasone (Tobradex) Opth Sol (2.5 ml) OU SCH ×3 (10:17→17:29)
--- NOTE | 2017-08-31 18:41 | CP.PCM.PN ---
Subjective - Date & Time of Evaluation Date of Evaluation: 08/31/17 Time of Evaluation: 08:20 - Subjective Subjective: clinically same Objective - Vital Signs/Intake and Output Vital Signs (last 24 hours): Temp Pulse Resp BP Pulse Ox 98.7 F 105 H 20 104/68 97 08/31/17 16:00 08/31/17 16:00 08/31/17 16:00 08/31/17 16:00 08/31/17 16:00 Intake and Output: 08/31/17 08/31/17 06:59 18:59 Intake Total 710 450 Output Total 1200 450 Balance -490 0 - Medications Medications: Current Medications Ascorbic Acid (Vitamin C 500 Mg Tab) 500 mg PO DAILY [facility] Last Admin: 08/31/17 10:21 Dose: 500 mg Cyanocobalamin (Vitamin B12 1000 Mcg Tab) 1,000 mcg PO DAILY [facility] Last Admin: 08/31/17 10:23 Dose: 1,000 mcg Diphenhydramine HCl (Benadryl) 25 mg IVP Q3H PRN PRN Reason: Allergy symptoms Last Admin: 08/31/17 16:03 Dose: 25 mg Enoxaparin Sodium (Lovenox) 40 mg SC DAILY [facility] Last Admin: 08/31/17 10:15 Dose: 40 mg Escitalopram Oxalate (Lexapro) 5 mg PO DAILY PRN PRN Reason: Anxiety Last Admin: 08/29/17 18:47 Dose: 5 mg Hydromorphone HCl (Dilaudid) 2 mg IVP Q3 [facility] Last Admin: 08/31/17 16:04 Dose: 2 mg Vancomycin HCl 1 gm/ Sodium (Chloride) 250 mls @ 166.7 mls/hr IVPB Q24H [facility] Last Admin: 08/31/17 17:30 Dose: 166.7 mls/hr Meropenem 1 gm/ Sodium (Chloride) 100 mls @ 100 mls/hr IVPB Q8H [facility] Last Admin: 08/31/17 16:17 Dose: 100 mls/hr Mesalamine (Delzicol) 800 mg PO TID [facility] Last Admin: 08/31/17 17:28 Dose: 800 mg Multivitamins/Minerals (Therapeutic-M Tab) 1 tab PO 0800 [facility] Last Admin: 08/31/17 10:15 Dose: 1 tab Mupirocin (Bactroban Ointment) 0 gm TOP DAILY PRN PRN Reason: SEE COMMENTS Pantoprazole Sodium (Protonix Ec Tab) 40 mg PO BID [facility] Last Admin: 08/31/17 17:28 Dose: 40 mg Pneumococcal Polyvalent Vaccine (Pneumovax 23 Vaccine) 0.5 ml IM .ONCE ONE Stop: 09/01/17 10:01 Tobramycin/Dexamethasone (Tobradex Opht Susp) 0.3 ml OU TID [facility] Last Admin: 08/31/17 17:29 Dose: 2 drop - Labs Labs: 08/28/17 22:54 08/28/17 22:54 PT 10.7 SECONDS (9.7-12.2) 08/28/17 22:54 INR 1.0 08/28/17 22:54 APTT 22 SECONDS (21-34) 08/28/17 22:54
--- NOTE | 2017-08-31 20:37 | CP.PCM.CON ---
History of Present Illness - History of Present Illness History of Present Illness: dictated Past Patient History - Infectious Disease Hx of Infectious Diseases: None - Past Medical History & Family History Past Medical History?: Yes - Past Social History Smoking Status: Unknown If Ever Smoked - CARDIAC Hx Cardiac Disorders: No - PULMONARY Hx Respiratory Disorders: No - NEUROLOGICAL Hx Neurological Disorder: No - HEENT Hx HEENT Problems: No - RENAL Hx Chronic Kidney Disease: No - ENDOCRINE/METABOLIC Hx Endocrine Disorders: No - HEMATOLOGICAL/ONCOLOGICAL Hx Blood Disorders: No - INTEGUMENTARY Hx Dermatological Problems: Yes Other/Comment: Perineal wound. Rectal abcess - MUSCULOSKELETAL/RHEUMATOLOGICAL Hx Falls: Yes - GASTROINTESTINAL Hx Crohn's Disease: Yes (COLOSTOMY 2015) - GENITOURINARY/GYNECOLOGICAL Hx Genitourinary Disorders: No - PSYCHIATRIC Hx Substance Use: No - SURGICAL HISTORY Hx Surgeries: Yes (SEE COMMENT) Other/Comment: LOOP COLOSTOMY. Perineal wound. COLON RESECTION - ANESTHESIA Hx Anesthesia: Yes Hx Anesthesia Reactions: No Hx Malignant Hyperthermia: No Has any member of the family had a problem w/ anesthesia?: No Meds Allergies/Adverse Reactions: Allergies Allergy/AdvReac Type Severity Reaction Status Date / Time morphine Allergy Severe ITCHING Verified 08/28/17 21:00 - Medications Medications: Current Medications Ascorbic Acid (Vitamin C 500 Mg Tab) 500 mg PO DAILY [facility] Last Admin: 08/31/17 10:21 Dose: 500 mg Cyanocobalamin (Vitamin B12 1000 Mcg Tab) 1,000 mcg PO DAILY [facility] Last Admin: 08/31/17 10:23 Dose: 1,000 mcg Diphenhydramine HCl (Benadryl) 25 mg IVP Q3H PRN PRN Reason: Allergy symptoms Last Admin: 08/31/17 19:03 Dose: 25 mg Enoxaparin Sodium (Lovenox) 40 mg SC DAILY [facility] Last Admin: 08/31/17 10:15 Dose: 40 mg Escitalopram Oxalate (Lexapro) 5 mg PO DAILY PRN PRN Reason: Anxiety Last Admin: 08/31/17 19:11 Dose: 5 mg Hydromorphone HCl (Dilaudid) 2 mg IVP Q3 [facility] Last Admin: 08/31/17 19:03 Dose: 2 mg Vancomycin HCl 1 gm/ Sodium (Chloride) 250 mls @ 166.7 mls/hr IVPB Q24H [facility] Last Admin: 08/31/17 17:30 Dose: 166.7 mls/hr Meropenem 1 gm/ Sodium (Chloride) 100 mls @ 100 mls/hr IVPB Q8H [facility] Last Admin: 08/31/17 16:17 Dose: 100 mls/hr Mesalamine (Delzicol) 800 mg PO TID [facility] Last Admin: 08/31/17 17:28 Dose: 800 mg Multivitamins/Minerals (Therapeutic-M Tab) 1 tab PO 0800 [facility] Last Admin: 08/31/17 10:15 Dose: 1 tab Mupirocin (Bactroban Ointment) 0 gm TOP DAILY PRN PRN Reason: SEE COMMENTS Pantoprazole Sodium (Protonix Ec Tab) 40 mg PO BID [facility] Last Admin: 08/31/17 17:28 Dose: 40 mg Pneumococcal Polyvalent Vaccine (Pneumovax 23 Vaccine) 0.5 ml IM .ONCE ONE Stop: 09/01/17 10:01 Tobramycin/Dexamethasone (Tobradex Opht Susp) 0.3 ml OU TID [facility] Last Admin: 08/31/17 17:29 Dose: 2 drop Results - Vital Signs Recent Vital Signs: Last Vital Signs Temp 98.7 F 08/31/17 16:00 Pulse 105 H 08/31/17 16:00 Resp 20 08/31/17 16:00 BP 104/68 08/31/17 16:00 Pulse Ox 97 08/31/17 16:00 - Labs Result Diagrams: 08/28/17 22:54 08/28/17 22:54
[2017-09-01] MEDS: DiphenhydrAMINE 50 mg/ml Inj IVP PRN ×8 (00:50→22:06)
--- NOTE | 2017-09-01 08:28 | CP.PCM.PN ---
Subjective - Date & Time of Evaluation Date of Evaluation: 09/01/17 Time of Evaluation: 07:40 - Subjective Subjective: clinically same Objective - Vital Signs/Intake and Output Vital Signs (last 24 hours): Temp Pulse Resp BP Pulse Ox 97.8 F 97 H 20 104/70 99 09/01/17 08:24 09/01/17 08:24 09/01/17 08:24 09/01/17 08:24 09/01/17 08:24 Intake and Output: 09/01/17 09/01/17 06:59 18:59 Intake Total 300 300 Output Total 600 750 Balance -300 -450 - Medications Medications: Current Medications Ascorbic Acid (Vitamin C 500 Mg Tab) 500 mg PO DAILY [facility] Last Admin: 08/31/17 10:21 Dose: 500 mg Cyanocobalamin (Vitamin B12 1000 Mcg Tab) 1,000 mcg PO DAILY [facility] Last Admin: 08/31/17 10:23 Dose: 1,000 mcg Diphenhydramine HCl (Benadryl) 25 mg IVP Q3H PRN PRN Reason: Allergy symptoms Last Admin: 09/01/17 07:02 Dose: 25 mg Enoxaparin Sodium (Lovenox) 40 mg SC DAILY [facility] Last Admin: 08/31/17 10:15 Dose: 40 mg Escitalopram Oxalate (Lexapro) 5 mg PO DAILY PRN PRN Reason: Anxiety Last Admin: 08/31/17 19:11 Dose: 5 mg Hydromorphone HCl (Dilaudid) 2 mg IVP Q3 [facility] Last Admin: 09/01/17 07:01 Dose: 2 mg Vancomycin HCl 1 gm/ Sodium (Chloride) 250 mls @ 166.7 mls/hr IVPB Q24H [facility] Last Admin: 08/31/17 17:30 Dose: 166.7 mls/hr Meropenem 1 gm/ Sodium (Chloride) 100 mls @ 100 mls/hr IVPB Q8H [facility] Last Admin: 09/01/17 00:31 Dose: 100 mls/hr Mesalamine (Delzicol) 800 mg PO TID [facility] Last Admin: 08/31/17 17:28 Dose: 800 mg Multivitamins/Minerals (Therapeutic-M Tab) 1 tab PO 0800 [facility] Last Admin: 08/31/17 10:15 Dose: 1 tab Mupirocin (Bactroban Ointment) 0 gm TOP DAILY PRN PRN Reason: SEE COMMENTS Pantoprazole Sodium (Protonix Ec Tab) 40 mg PO BID [facility] Last Admin: 08/31/17 17:28 Dose: 40 mg Pneumococcal Polyvalent Vaccine (Pneumovax 23 Vaccine) 0.5 ml IM .ONCE ONE Stop: 09/01/17 10:01 Tobramycin/Dexamethasone (Tobradex Opht Susp) 0.3 ml OU TID [facility] Last Admin: 08/31/17 17:29 Dose: 2 drop - Labs Labs: 08/28/17 22:54 08/28/17 22:54 PT 10.7 SECONDS (9.7-12.2) 08/28/17 22:54 INR 1.0 08/28/17 22:54 APTT 22 SECONDS (21-34) 08/28/17 22:54
--- NOTE | 2017-09-01 09:27 | CON ---
DATE: CONSULT REQUESTED BY: Dr. Eric Barrett. HISTORY OF PRESENT ILLNESS: This patient is a 22-year-old male who was admitted on 08/29/2017. He comes in with history of Crohn disease. He has recently had multiple admissions here. He has white count of 18,000 and has increased WBC and I am asked to see him, he does complain of abscesses. He has been treated for recurrent abscesses and he comes in, was having some foul discharge and drainage and blood per rectum as well as stoma. He had no fever, no chills, but he has lot of pain and he has these excoriations of the skin as well as perianal abscesses and fistula. He has colostomy. PAST MEDICAL HISTORY: Significant for colon resection, colostomy. He has multiple I and D's done, has had bacteremia. He has had DVT in the right neck before. Significant for Crohn's disease. He never smoked. No history of lung problems at this time. Denies any chest pain. No shortness of breath. No passing out. He has no abdominal pain right now. He does have a colostomy, which was placed in 2016. He has history of depression and he has had anesthesia before. ALLERGIES: HE IS ALLERGIC TO MORPHINE. SOCIAL HISTORY: Negative for smoking, drinking or drug abuse. Because of tremendous amount of pain, he has always been on hydromorphone and he states he saw the GI doctor, Dr. Atkinson and he told him that these wounds need to be taken care of as he is getting IV Remicade biweekly and somehow, he is not getting better. MEDICATIONS: Diphenhydramine, hydromorphone. He was given vancomycin and gentamicin when he came in initially and his medications now are ascorbic acid, B12, Benadryl, Lovenox, Lexapro, Dilaudid. He is on Merrem, mesalamine and he is on multivitamins and he is on Mupirocin, Protonix and he is getting ophthalmic solution and he is on vancomycin 1 g daily. These were all started on my recommendations. His IV was in his one of his fingers today, so, we had to order a PICC line. PHYSICAL EXAMINATION VITAL SIGNS: T-max is 98.7, heart rate of 105, blood pressure 104/68, respirations are 20. GENERAL: He is alert, oriented. HEENT: Pupils are reacting to light. He does have some bluish discoloration in his right eye, which was started on last admission. NECK: Supple. JVP is flat. LUNGS: Clear. No crackles or rales present. HEART: S1 and S2 is regular. ABDOMEN: Soft. He has a colostomy bag and I tried to see his wounds. He has excoriation between both the buttocks extending into the perianal area and there is a lot of break in the skin and may have abscesses, was seen by surgery and he needs some solution for these abscesses which have occurred multiple times. EXTREMITIES: Have no edema. LABORATORY DATA: Otherwise, white count is 18.7, hemoglobin 11.6, hematocrit 35.3, platelet count is 290,000. Creatinine is 0.6 and cultures were ordered. Blood culture and urine culture are negative at this time and wound culture were gram-negative and gram-positive as before and he is on vancomycin and meropenem. We will follow those and we will repeat the labs tomorrow and we will see if there are any recommendations or surgery planned by the surgeon. We will follow. Santosh Daniel MD
[2017-09-01] MEDS ORDERED: Pneumococcal 23-Valent Vaccine IM ONE (10:00)
[2017-09-01] MEDS: Enoxaparin 40 mg Syringe SC SCH (10:14)
[2017-09-01] MEDS: Multivitamin With Minerals Tab PO SCH (10:16)
[2017-09-01] MEDS: Tobramycin/Dexamethasone (Tobradex) Opth Sol (2.5 ml) OU SCH ×3 (10:16→18:13)
[2017-09-01] MEDS: Pantoprazole 40 mg EC Tab PO SCH ×2 (10:23→19:18)
--- NOTE | 2017-09-01 10:31 | CP.PCM.PN ---
Subjective - Date & Time of Evaluation Date of Evaluation: 09/01/17 Time of Evaluation: 10:29 - Subjective Subjective: Progress Note for Dr. Barrett's Service Pt seen and examined at bedside. He is emotional this morning as his 4 y/o cousin from post op complications following colectomy 09/25 to Crohns. He states that his wounds are getting worse and worse. He continues to have pain at these sites. No fevers or chills. Objective - Vital Signs/Intake and Output Vital Signs (last 24 hours): Temp Pulse Resp BP Pulse Ox 97.8 F 97 H 20 104/70 99 09/01/17 08:24 09/01/17 08:24 09/01/17 08:24 09/01/17 08:24 09/01/17 08:24 Intake and Output: 09/01/17 09/01/17 06:59 18:59 Intake Total 300 300 Output Total 600 750 Balance -300 -450 - Medications Medications: Current Medications Ascorbic Acid (Vitamin C 500 Mg Tab) 500 mg PO DAILY [facility] Last Admin: 09/01/17 10:23 Dose: 500 mg Cyanocobalamin (Vitamin B12 1000 Mcg Tab) 1,000 mcg PO DAILY [facility] Last Admin: 09/01/17 10:16 Dose: 1,000 mcg Diphenhydramine HCl (Benadryl) 25 mg IVP Q3H PRN PRN Reason: Allergy symptoms Last Admin: 09/01/17 10:05 Dose: 25 mg Enoxaparin Sodium (Lovenox) 40 mg SC DAILY [facility] Last Admin: 09/01/17 10:14 Dose: 40 mg Escitalopram Oxalate (Lexapro) 5 mg PO DAILY PRN PRN Reason: Anxiety Last Admin: 09/01/17 10:15 Dose: 5 mg Hydromorphone HCl (Dilaudid) 2 mg IVP Q3 [facility] Last Admin: 09/01/17 10:04 Dose: 2 mg Vancomycin HCl 1 gm/ Sodium (Chloride) 250 mls @ 166.7 mls/hr IVPB Q24H [facility] Last Admin: 08/31/17 17:30 Dose: 166.7 mls/hr Meropenem 1 gm/ Sodium (Chloride) 100 mls @ 100 mls/hr IVPB Q8H [facility] Last Admin: 09/01/17 10:09 Dose: 100 mls/hr Mesalamine (Delzicol) 800 mg PO TID [facility] Last Admin: 09/01/17 10:15 Dose: 800 mg Multivitamins/Minerals (Therapeutic-M Tab) 1 tab PO 0800 [facility] Last Admin: 09/01/17 10:16 Dose: 1 tab Mupirocin (Bactroban Ointment) 0 gm TOP DAILY PRN PRN Reason: SEE COMMENTS Pantoprazole Sodium (Protonix Ec Tab) 40 mg PO BID [facility] Last Admin: 09/01/17 10:23 Dose: 40 mg Tobramycin/Dexamethasone (Tobradex Opht Susp) 0.3 ml OU TID [facility] Last Admin: 09/01/17 10:16 Dose: 2 drop - Labs Labs: 08/28/17 22:54 08/28/17 22:54 PT 10.7 SECONDS (9.7-12.2) 08/28/17 22:54 INR 1.0 08/28/17 22:54 APTT 22 SECONDS (21-34) 08/28/17 22:54 - Head Exam Head Exam: ATRAUMATIC, NORMOCEPHALIC - Eye Exam Eye Exam: EOMI - ENT Exam ENT Exam: Mucous Membranes Moist - Respiratory Exam Respiratory Exam: Clear to Ausculation Bilateral, NORMAL BREATHING PATTERN. absent: Rhonchi, Wheezes - Cardiovascular Exam Cardiovascular Exam: REGULAR RHYTHM, +S1, +S2 - GI/Abdominal Exam GI & Abdominal Exam: Soft. absent: Tenderness - Rectal Exam Additional comments: extensive skin breakdown - Extremities Exam Extremities Exam: absent: Pedal Edema, Tenderness - Neurological Exam Neurological Exam: Alert, Awake, Oriented x3 - Skin Skin Exam: Dry, Warm Assessment and Plan - Assessment and Plan (Free Text) Plan: Rectal Wound- chronic Afebrile WBC- 18.7 (08/28) Surgical consult, Dr. Taylor ID consult, Dr. Daniel Meropenem 1g IV q8hrs (started 08/30) Vancomycin 1g IV daily Dilaudid 2mg IV Q3H PRN for Pain- given with Benadryl due to morphine allergy - Prior admission Culture: Wound cultures (05/21/17): Pseudomonas aeruginosa, Citrobacter freundii, Staph aureus Wound care nurse consult, help appreciated Wound culture (08/29): E. coli and Enterococcus faecalis PICC line ordered 09/01 Vitamin C Crohn's Disease;chronic and uncontrolled Loop Colostomy (2016) Complicated by persistent abscesses Delzicol 800mg PO Daily History of anemia Hgb 11.6 08/28/17 Vit B12 Anxiety Lexapro 5mg PO Daily Opthalmologic infection hx Infection noted on prior admission Continue: Tobradex suspension Prophylaxis Zofran 4mg IV q8hrs prn Protonix 40mg PO daily [facility] Lovenox 40U SC daily Case discussed with Dr. Barrett All management as per Dr. Barrett
[2017-09-01] MEDS ORDERED: Lidocaine 2% Inj (20ml) ONE (13:45)
--- NOTE | 2017-09-01 14:16 | PCM.SURG1 ---
Surgeon's Initial Post Op Note - Surgeon's Notes Surgeon: Enrique Franklin MD Gaming Associate: NONE Type of Anesthesia: Local Pre-Operative Diagnosis: Crohn's disease, central venous occlusion, poor venous access Operative Findings: Patent right basilic vein. Venogram showed occlusion of proximal right basilic vein, axilary vein, subclavian vein. Post-Operative Diagnosis: Crohn's disease, central venous occlusion, poor venous access Operation Performed: Single lumen picc, 10 cm, right brachial vein, tip in mid basilic vein. Right upper extremity venogram showed occlusion of axilary vein and subclavian vein. Specimen/Specimens Removed: none Estimated Blood Loss: EBL {In ML}: 3 Blood Products Given: N/A Drains Used: No Drains Post-Op Condition: Fair Date of Surgery/Procedure: 09/01/17 Time of Surgery/Procedure: 14:10
[2017-09-01 16:22] LABS: BASO # 0.1 K/uL (0.0-0.2); BASO % 0.5 % (0.0-2.0); EOS # 0.5 K/uL (0.0-0.7); EOS % 4.9 % (0.0-4.0); HEMOGLOBIN 10.9 g/dL (12.0-18.0); LYMPH # 4.6 K/uL (1.0-4.3); LYMPH % 44.1 % (20.0-40.0); MEAN CELL VOLUME 70.6 fL (80.0-94.0); MEAN CORPUSCULAR HEMOGLOBIN 22.3 pg (27.0-31.0); MEAN CORPUSCULAR HGB CONC 31.6 g/dL (33.0-37.0); MEAN PLATELET VOLUME 7.8 fL (7.2-11.7); MONO # 0.7 K/uL (0.0-0.8); MONO % 6.5 % (0.0-10.0); NEUT # 4.6 K/uL (1.8-7.0); RBC 4.87 Mil/uL (4.40-5.90); RED CELL DISTRIBUTION WIDTH 18.4 % (11.5-14.5); WHITE BLOOD COUNT 10.4 K/uL (4.8-10.8)
[2017-09-01 16:48] LABS: ALBUMIN 3.9 g/dL (3.5-5.0); ALT/SGPT 46 U/L (21-72); AST/SGOT 35 U/L (17-59); BLOOD UREA NITROGEN 8 mg/dL (9-20); CALCIUM 7.6 mg/dl (8.6-10.4); GFR AFRICAN-AMERICAN > 60; GFR NON-AFRICAN AMERICAN > 60
[2017-09-01] MEDS: Vancomycin 1 gm/NS 200 ml 1 GM/200 ML BAG IVPB SCH (18:09)
[2017-09-02] MEDS: DiphenhydrAMINE 50 mg/ml Inj IVP PRN ×8 (01:00→22:02)
--- NOTE | 2017-09-02 08:04 | CP.PCM.PN ---
Subjective - Date & Time of Evaluation Date of Evaluation: 09/02/17 Time of Evaluation: 05:20 - Subjective Subjective: clinically same Objective - Vital Signs/Intake and Output Vital Signs (last 24 hours): Temp Pulse Resp BP Pulse Ox 98.3 F 95 H 20 115/78 98 09/02/17 00:00 09/02/17 00:00 09/02/17 00:00 09/02/17 00:00 09/02/17 00:00 Intake and Output: 09/02/17 09/02/17 06:59 18:59 Intake Total 1040 Output Total 650 Balance 390 - Medications Medications: Current Medications Ascorbic Acid (Vitamin C 500 Mg Tab) 500 mg PO DAILY [facility] Last Admin: 09/01/17 10:23 Dose: 500 mg Cyanocobalamin (Vitamin B12 1000 Mcg Tab) 1,000 mcg PO DAILY [facility] Last Admin: 09/01/17 10:16 Dose: 1,000 mcg Diphenhydramine HCl (Benadryl) 25 mg IVP Q3H PRN PRN Reason: Allergy symptoms Last Admin: 09/02/17 07:02 Dose: 25 mg Enoxaparin Sodium (Lovenox) 40 mg SC DAILY [facility] Last Admin: 09/01/17 10:14 Dose: 40 mg Escitalopram Oxalate (Lexapro) 5 mg PO DAILY PRN PRN Reason: Anxiety Last Admin: 09/01/17 10:15 Dose: 5 mg Hydromorphone HCl (Dilaudid) 2 mg IVP Q3 [facility] Last Admin: 09/02/17 07:03 Dose: 2 mg Meropenem 1 gm/ Sodium (Chloride) 100 mls @ 100 mls/hr IVPB Q8H [facility] Last Admin: 09/02/17 00:20 Dose: 100 mls/hr Vancomycin/Sodium Chloride (Vancomycin 1 Gm/Ns 200 Ml) 1 gm in 200 mls @ 133.333 mls/hr IVPB Q24H [facility] Last Admin: 09/01/17 18:09 Dose: 133.333 mls/hr Mesalamine (Delzicol) 800 mg PO TID [facility] Last Admin: 09/01/17 18:12 Dose: 800 mg Multivitamins/Minerals (Therapeutic-M Tab) 1 tab PO 0800 [facility] Last Admin: 09/01/17 10:16 Dose: 1 tab Mupirocin (Bactroban Ointment) 0 gm TOP DAILY PRN PRN Reason: SEE COMMENTS Pantoprazole Sodium (Protonix Ec Tab) 40 mg PO BID [facility] Last Admin: 09/01/17 19:18 Dose: 40 mg Tobramycin/Dexamethasone (Tobradex Opht Susp) 0.3 ml OU TID [facility] Last Admin: 09/01/17 18:13 Dose: 2 drop - Labs Labs: 09/01/17 16:13 09/01/17 16:13 PT 10.7 SECONDS (9.7-12.2) 08/28/17 22:54 INR 1.0 08/28/17 22:54 APTT 22 SECONDS (21-34) 08/28/17 22:54
[2017-09-02] MEDS: Multivitamin With Minerals Tab PO SCH (08:27)
[2017-09-02] MEDS: Enoxaparin 40 mg Syringe SC SCH (09:51)
[2017-09-02] MEDS: Pantoprazole 40 mg EC Tab PO SCH ×2 (09:51→17:52)
[2017-09-02] MEDS: Tobramycin/Dexamethasone (Tobradex) Opth Sol (2.5 ml) OU SCH ×3 (09:52→17:50)
--- NOTE | 2017-09-02 12:07 | SPECPROC ---
PROCEDURE: Date of procedure: 09/01/2016 Procedure: 1. Placement of a right arm PICC with ultrasound and fluoroscopic guidance, CPT 00090 2. PICC tip confirmation with spot radiograph and is in the superior vena cava Medications: 1 percent lidocaine Total Fluoro time: 1 min 27 seconds Radiation: 15 mGy EBL: 2 cc HISTORY: Crohn's disease, infection, poor venous access TECHNIQUE: Following informed consent and procedure time-out, the patient was placed supine on the interventional table and the right arm prepped and draped in the usual sterile fashion. Ultrasound showed a patent and compressible right brachial vein. After the skin was anesthetized with lidocaine, the brachial vein was accessed with micro micropuncture technique using ultrasound guidance. An image documenting ultrasound guidance for vascular access was permanently saved. There was difficulty advancing guidewire centrally. A right upper extremity venogram was then performed. Right upper extremity venogram showed occlusion of the proximal brachial vein, axillary vein and subclavian vein with multiple collateral veins present. The length of the single-lumen 4 Malian PICC was trimmed to 10 centimeters and advanced through a peel-away sheath. The PICC was position with tip of PICC confirm a spot radiograph the mid brachial vein. The PICC was secured to the patient's skin. The PICC was flushed. A biopatch and sterile dressing was applied. 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 Placement of a single lumen 5 Malian PICC trimmed to 10 cm within the brachial vein. The PICC is functional and may be used. .
--- NOTE | 2017-09-02 15:46 | CARD ---
APPROVED REPORT EKG Measurement Heart [id number] <Conclusion> Sinus tachycardia Otherwise normal.
[2017-09-02] MEDS: Vancomycin 1 gm/NS 200 ml 1 GM/200 ML BAG IVPB SCH (17:46)
[2017-09-03] MEDS: DiphenhydrAMINE 50 mg/ml Inj IVP PRN ×8 (00:54→22:03)
[2017-09-03] MEDS: Multivitamin With Minerals Tab PO SCH (08:27)
[2017-09-03] MEDS: Enoxaparin 40 mg Syringe SC SCH (09:57)
[2017-09-03] MEDS: Pantoprazole 40 mg EC Tab PO SCH ×3 (09:57→22:03)
[2017-09-03] MEDS: Tobramycin/Dexamethasone (Tobradex) Opth Sol (2.5 ml) OU SCH ×3 (09:58→18:03)
--- NOTE | 2017-09-03 15:59 | CP.PCM.PN ---
Subjective - Date & Time of Evaluation Date of Evaluation: 09/03/17 Time of Evaluation: 03:50 - Subjective Subjective: dictatad Objective - Vital Signs/Intake and Output Vital Signs (last 24 hours): Temp Pulse Resp BP Pulse Ox 98.2 F 77 20 121/76 99 09/03/17 07:32 09/03/17 07:32 09/03/17 07:32 09/03/17 07:32 09/03/17 07:32 Intake and Output: 09/03/17 09/03/17 06:59 18:59 Intake Total 1750 700 Output Total 800 Balance 950 700 - Medications Medications: Current Medications Ascorbic Acid (Vitamin C 500 Mg Tab) 500 mg PO DAILY [facility] Last Admin: 09/03/17 09:57 Dose: 500 mg Cyanocobalamin (Vitamin B12 1000 Mcg Tab) 1,000 mcg PO DAILY [facility] Last Admin: 09/03/17 09:57 Dose: 1,000 mcg Diphenhydramine HCl (Benadryl) 25 mg IVP Q3H PRN PRN Reason: Allergy symptoms Last Admin: 09/03/17 12:59 Dose: 25 mg Enoxaparin Sodium (Lovenox) 40 mg SC DAILY [facility] Last Admin: 09/03/17 09:57 Dose: 40 mg Escitalopram Oxalate (Lexapro) 5 mg PO DAILY PRN PRN Reason: Anxiety Last Admin: 09/03/17 09:57 Dose: 5 mg Hydromorphone HCl (Dilaudid) 2 mg IVP Q3 [facility] Last Admin: 09/03/17 12:59 Dose: 2 mg Meropenem 1 gm/ Sodium (Chloride) 100 mls @ 100 mls/hr IVPB Q8H [facility] Last Admin: 09/03/17 08:27 Dose: 100 mls/hr Vancomycin/Sodium Chloride (Vancomycin 1 Gm/Ns 200 Ml) 1 gm in 200 mls @ 133.333 mls/hr IVPB Q24H [facility] Last Admin: 09/02/17 17:46 Dose: 133.333 mls/hr Mesalamine (Delzicol) 800 mg PO TID [facility] Last Admin: 09/03/17 13:00 Dose: 800 mg Multivitamins/Minerals (Therapeutic-M Tab) 1 tab PO 0800 [facility] Last Admin: 09/03/17 08:27 Dose: 1 tab Mupirocin (Bactroban Ointment) 0 gm TOP DAILY PRN PRN Reason: SEE COMMENTS Last Admin: 09/03/17 11:46 Dose: 1 applic Pantoprazole Sodium (Protonix Ec Tab) 40 mg PO BID [facility] Last Admin: 09/03/17 09:57 Dose: 40 mg Tobramycin/Dexamethasone (Tobradex Opht Susp) 0.3 ml OU TID [facility] Last Admin: 09/03/17 13:00 Dose: 2 drop - Labs Labs: 09/01/17 16:13 09/01/17 16:13 PT 10.7 SECONDS (9.7-12.2) 08/28/17 22:54 INR 1.0 08/28/17 22:54 APTT 22 SECONDS (21-34) 08/28/17 22:54
[2017-09-03] MEDS: Vancomycin 1 gm/NS 200 ml 1 GM/200 ML BAG IVPB SCH (17:57)
--- NOTE | 2017-09-03 20:39 | CP.PCM.PN ---
Subjective - Date & Time of Evaluation Date of Evaluation: 09/03/17 Time of Evaluation: 20:38 Objective - Vital Signs/Intake and Output Vital Signs (last 24 hours): Temp Pulse Resp BP Pulse Ox 97.9 F 105 H 20 117/78 97 09/03/17 16:00 09/03/17 16:00 09/03/17 16:00 09/03/17 16:00 09/03/17 16:00 Intake and Output: 09/03/17 09/04/17 18:59 06:59 Intake Total 700 Balance 700 - Medications Medications: Current Medications Ascorbic Acid (Vitamin C 500 Mg Tab) 500 mg PO DAILY [facility] Last Admin: 09/03/17 09:57 Dose: 500 mg Cyanocobalamin (Vitamin B12 1000 Mcg Tab) 1,000 mcg PO DAILY [facility] Last Admin: 09/03/17 09:57 Dose: 1,000 mcg Diphenhydramine HCl (Benadryl) 25 mg IVP Q3H PRN PRN Reason: Allergy symptoms Last Admin: 09/03/17 19:04 Dose: 25 mg Enoxaparin Sodium (Lovenox) 40 mg SC DAILY [facility] Last Admin: 09/03/17 09:57 Dose: 40 mg Escitalopram Oxalate (Lexapro) 5 mg PO DAILY PRN PRN Reason: Anxiety Last Admin: 09/03/17 09:57 Dose: 5 mg Hydromorphone HCl (Dilaudid) 2 mg IVP Q3 [facility] Last Admin: 09/03/17 16:11 Dose: 2 mg Meropenem 1 gm/ Sodium (Chloride) 100 mls @ 100 mls/hr IVPB Q8H [facility] Last Admin: 09/03/17 16:14 Dose: 100 mls/hr Vancomycin/Sodium Chloride (Vancomycin 1 Gm/Ns 200 Ml) 1 gm in 200 mls @ 133.333 mls/hr IVPB Q24H [facility] Last Admin: 09/03/17 17:57 Dose: 133.333 mls/hr Mesalamine (Delzicol) 800 mg PO TID [facility] Last Admin: 09/03/17 18:03 Dose: 800 mg Multivitamins/Minerals (Therapeutic-M Tab) 1 tab PO 0800 [facility] Last Admin: 09/03/17 08:27 Dose: 1 tab Mupirocin (Bactroban Ointment) 0 gm TOP DAILY PRN PRN Reason: SEE COMMENTS Last Admin: 09/03/17 11:46 Dose: 1 applic Pantoprazole Sodium (Protonix Ec Tab) 40 mg PO BID [facility] Last Admin: 09/03/17 09:57 Dose: 40 mg Tobramycin/Dexamethasone (Tobradex Opht Susp) 0.3 ml OU TID [facility] Last Admin: 09/03/17 18:03 Dose: 1 drop - Labs Labs: 09/01/17 16:13 09/01/17 16:13 PT 10.7 SECONDS (9.7-12.2) 08/28/17 22:54 INR 1.0 08/28/17 22:54 APTT 22 SECONDS (21-34) 08/28/17 22:54
--- NOTE | 2017-09-03 21:02 | PN ---
DATE: SUBJECTIVE: The patient complains of pain and he has a small abscess between his buttocks at this time, which is pinpoint and he wanted to be seen by the surgeon. He states surgeon never saw him. At this time his white count has decreased and he does have fistula probably as he has been bleeding and having feces. His culture came back positive for E. coli as well as enterococcus and I think that is the stool from enterococcus and I will give him Bactrim when he is stable to go home and I am hoping we can discharge him tomorrow. His white count is 10.4. I told him to follow with GI, and if it is the fistulas, there is not much can be done except for personal hygiene and to apply different healing agent and to wash clean properly every time he goes for number otherwise he has a colostomy and we will continue antibiotics for now and we will discuss the plan with the primary. Santosh Daniel MD
[2017-09-04] MEDS: DiphenhydrAMINE 50 mg/ml Inj IVP PRN ×8 (00:59→22:04)
[2017-09-04] MEDS: Multivitamin With Minerals Tab PO SCH (08:46)
[2017-09-04] MEDS: Tobramycin/Dexamethasone (Tobradex) Opth Sol (2.5 ml) OU SCH ×3 (09:54→18:14)
[2017-09-04] MEDS: Enoxaparin 40 mg Syringe SC SCH (09:55)
[2017-09-04] MEDS: Pantoprazole 40 mg EC Tab PO SCH ×2 (09:56→18:14)
--- NOTE | 2017-09-04 16:05 | CP.PCM.PN ---
Subjective - Date & Time of Evaluation Date of Evaluation: 09/04/17 Time of Evaluation: 16:05 Objective - Vital Signs/Intake and Output Vital Signs (last 24 hours): Temp Pulse Resp BP Pulse Ox 98.1 F 91 H 20 115/75 96 09/04/17 07:50 09/04/17 07:50 09/04/17 07:50 09/04/17 07:50 09/04/17 07:50 Intake and Output: 09/04/17 09/04/17 06:59 18:59 Intake Total 1350 Output Total 700 Balance 650 - Medications Medications: Current Medications Ascorbic Acid (Vitamin C 500 Mg Tab) 500 mg PO DAILY [facility] Last Admin: 09/04/17 09:55 Dose: 500 mg Cyanocobalamin (Vitamin B12 1000 Mcg Tab) 1,000 mcg PO DAILY [facility] Last Admin: 09/04/17 09:55 Dose: 1,000 mcg Diphenhydramine HCl (Benadryl) 25 mg IVP Q3H PRN PRN Reason: Allergy symptoms Last Admin: 09/04/17 16:03 Dose: 25 mg Enoxaparin Sodium (Lovenox) 40 mg SC DAILY [facility] Last Admin: 09/04/17 09:55 Dose: 40 mg Escitalopram Oxalate (Lexapro) 5 mg PO DAILY PRN PRN Reason: Anxiety Last Admin: 09/04/17 09:55 Dose: 5 mg Hydromorphone HCl (Dilaudid) 2 mg IVP Q3 [facility] Last Admin: 09/04/17 12:57 Dose: 2 mg Meropenem 1 gm/ Sodium (Chloride) 100 mls @ 100 mls/hr IVPB Q8H [facility] Last Admin: 09/04/17 08:46 Dose: 100 mls/hr Vancomycin/Sodium Chloride (Vancomycin 1 Gm/Ns 200 Ml) 1 gm in 200 mls @ 133.333 mls/hr IVPB Q24H [facility] Last Admin: 09/03/17 17:57 Dose: 133.333 mls/hr Mesalamine (Delzicol) 800 mg PO TID [facility] Last Admin: 09/04/17 13:05 Dose: 800 mg Multivitamins/Minerals (Therapeutic-M Tab) 1 tab PO 0800 [facility] Last Admin: 09/04/17 08:46 Dose: 1 tab Mupirocin (Bactroban Ointment) 0 gm TOP DAILY PRN PRN Reason: SEE COMMENTS Last Admin: 09/03/17 11:46 Dose: 1 applic Pantoprazole Sodium (Protonix Ec Tab) 40 mg PO BID [facility] Last Admin: 09/04/17 09:56 Dose: 40 mg Tobramycin/Dexamethasone (Tobradex Opht Susp) 0.3 ml OU TID [facility] Last Admin: 09/04/17 13:05 Dose: 2 drop - Labs Labs: 09/01/17 16:13 09/01/17 16:13 PT 10.7 SECONDS (9.7-12.2) 08/28/17 22:54 INR 1.0 08/28/17 22:54 APTT 22 SECONDS (21-34) 08/28/17 22:54
[2017-09-04] MEDS: Vancomycin 1 gm/NS 200 ml 1 GM/200 ML BAG IVPB SCH (18:13)
[2017-09-05] MEDS: DiphenhydrAMINE 50 mg/ml Inj IVP PRN ×8 (00:44→22:01)
[2017-09-05] MEDS: Multivitamin With Minerals Tab PO SCH (08:04)
[2017-09-05] MEDS: Enoxaparin 40 mg Syringe SC SCH (10:20)
[2017-09-05] MEDS: Tobramycin/Dexamethasone (Tobradex) Opth Sol (2.5 ml) OU SCH ×3 (10:20→17:42)
[2017-09-05] MEDS: Pantoprazole 40 mg EC Tab PO SCH ×2 (10:20→17:45)
--- NOTE | 2017-09-05 17:19 | CP.PCM.PN ---
Subjective - Date & Time of Evaluation Date of Evaluation: 09/05/17 Time of Evaluation: 17:19 Objective - Vital Signs/Intake and Output Vital Signs (last 24 hours): Temp Pulse Resp BP Pulse Ox 98.4 F 100 H 20 118/82 97 09/05/17 15:00 09/05/17 15:00 09/05/17 15:00 09/05/17 15:00 09/05/17 15:00 Intake and Output: 09/05/17 09/05/17 06:59 18:59 Intake Total 1350 Output Total 1000 Balance 350 - Medications Medications: Current Medications Ascorbic Acid (Vitamin C 500 Mg Tab) 500 mg PO DAILY [facility] Last Admin: 09/05/17 10:24 Dose: 500 mg Cyanocobalamin (Vitamin B12 1000 Mcg Tab) 1,000 mcg PO DAILY [facility] Last Admin: 09/05/17 10:19 Dose: 1,000 mcg Diphenhydramine HCl (Benadryl) 25 mg IVP Q3H PRN PRN Reason: Allergy symptoms Last Admin: 09/05/17 16:02 Dose: 25 mg Enoxaparin Sodium (Lovenox) 40 mg SC DAILY [facility] Last Admin: 09/05/17 10:20 Dose: 40 mg Escitalopram Oxalate (Lexapro) 5 mg PO DAILY PRN PRN Reason: Anxiety Last Admin: 09/05/17 10:19 Dose: 5 mg Hydromorphone HCl (Dilaudid) 2 mg IVP Q3 [facility] Last Admin: 09/05/17 16:05 Dose: 2 mg Meropenem 1 gm/ Sodium (Chloride) 100 mls @ 100 mls/hr IVPB Q8H [facility] Last Admin: 09/05/17 16:08 Dose: 100 mls/hr Vancomycin/Sodium Chloride (Vancomycin 1 Gm/Ns 200 Ml) 1 gm in 200 mls @ 133.333 mls/hr IVPB Q24H [facility] Last Admin: 09/04/17 18:13 Dose: 133.333 mls/hr Mesalamine (Delzicol) 800 mg PO TID [facility] Last Admin: 09/05/17 13:00 Dose: 800 mg Multivitamins/Minerals (Therapeutic-M Tab) 1 tab PO 0800 [facility] Last Admin: 09/05/17 08:04 Dose: 1 tab Mupirocin (Bactroban Ointment) 0 gm TOP DAILY PRN PRN Reason: SEE COMMENTS Last Admin: 09/03/17 11:46 Dose: 1 applic Pantoprazole Sodium (Protonix Ec Tab) 40 mg PO BID [facility] Last Admin: 09/05/17 10:20 Dose: 40 mg Tobramycin/Dexamethasone (Tobradex Opht Susp) 0.3 ml OU TID [facility] Last Admin: 09/05/17 13:00 Dose: 1 drop - Labs Labs: 09/01/17 16:13 09/01/17 16:13 PT 10.7 SECONDS (9.7-12.2) 08/28/17 22:54 INR 1.0 08/28/17 22:54 APTT 22 SECONDS (21-34) 08/28/17 22:54
[2017-09-05] MEDS: Vancomycin 1 gm/NS 200 ml 1 GM/200 ML BAG IVPB SCH (17:40)
[2017-09-06] MEDS: DiphenhydrAMINE 50 mg/ml Inj IVP PRN ×8 (01:00→22:01)
[2017-09-06] MEDS: Multivitamin With Minerals Tab PO SCH (08:33)
[2017-09-06] MEDS: Tobramycin/Dexamethasone (Tobradex) Opth Sol (2.5 ml) OU SCH ×3 (10:24→19:06)
[2017-09-06] MEDS: Pantoprazole 40 mg EC Tab PO SCH ×2 (10:24→19:05)
[2017-09-06] MEDS: Enoxaparin 40 mg Syringe SC SCH (10:32)
--- NOTE | 2017-09-06 13:03 | CP.PCM.PN ---
Subjective - Date & Time of Evaluation Date of Evaluation: 09/06/17 Time of Evaluation: 13:03 Objective - Vital Signs/Intake and Output Vital Signs (last 24 hours): Temp Pulse Resp BP Pulse Ox 97.9 F 81 20 117/79 98 09/06/17 08:52 09/06/17 08:52 09/06/17 08:52 09/06/17 08:52 09/06/17 08:52 Intake and Output: 09/06/17 09/06/17 06:59 18:59 Intake Total 1100 400 Output Total 950 Balance 1100 -550 - Medications Medications: Current Medications Ascorbic Acid (Vitamin C 500 Mg Tab) 500 mg PO DAILY [facility] Last Admin: 09/05/17 10:24 Dose: 500 mg Cyanocobalamin (Vitamin B12 1000 Mcg Tab) 1,000 mcg PO DAILY [facility] Last Admin: 09/06/17 10:34 Dose: 1,000 mcg Diphenhydramine HCl (Benadryl) 25 mg IVP Q3H PRN PRN Reason: Allergy symptoms Last Admin: 09/06/17 10:21 Dose: 25 mg Escitalopram Oxalate (Lexapro) 5 mg PO DAILY PRN PRN Reason: Anxiety Last Admin: 09/06/17 10:26 Dose: 5 mg Hydromorphone HCl (Dilaudid) 2 mg IVP Q3 [facility] Last Admin: 09/06/17 10:22 Dose: 2 mg Vancomycin/Sodium Chloride (Vancomycin 1 Gm/Ns 200 Ml) 1 gm in 200 mls @ 133.333 mls/hr IVPB Q24H [facility] Last Admin: 09/05/17 17:40 Dose: 133.333 mls/hr Mesalamine (Delzicol) 800 mg PO TID [facility] Last Admin: 09/06/17 10:25 Dose: 800 mg Multivitamins/Minerals (Therapeutic-M Tab) 1 tab PO 0800 [facility] Last Admin: 09/06/17 08:33 Dose: 1 tab Mupirocin (Bactroban Ointment) 0 gm TOP DAILY PRN PRN Reason: SEE COMMENTS Last Admin: 09/06/17 10:33 Dose: 1 applic Pantoprazole Sodium (Protonix Ec Tab) 40 mg PO BID [facility] Last Admin: 09/06/17 10:24 Dose: 40 mg Tobramycin/Dexamethasone (Tobradex Opht Susp) 0.3 ml OU TID [facility] Last Admin: 09/06/17 10:24 Dose: 1 drop - Labs Labs: 09/01/17 16:13 09/01/17 16:13 PT 10.7 SECONDS (9.7-12.2) 08/28/17 22:54 INR 1.0 08/28/17 22:54 APTT 22 SECONDS (21-34) 08/28/17 22:54
[2017-09-06] MEDS: Vancomycin 1 gm/NS 200 ml 1 GM/200 ML BAG IVPB SCH (16:06)
[2017-09-06] MEDS: Meropenem 1 GM in Sodium Chloride 0.9% 100 ML IVPB SCH (21:53)
--- NOTE | 2017-09-06 22:33 | PN ---
DATE: SUBJECTIVE: Patient is doing better. He still says that Surgery will come and do some surgery. The surgical scrub technician evaluated him, on reports, and I do not see any surgery note after 09/01. He is being followed by Dr. Ramirez as patient continues to be on antibiotics. At this time, he has received antibiotics from 08/28 and he will be almost coming to 10 days tomorrow and I am hoping he could go home on Bactrim p.o. for next 10 days. He has improved and I would like to repeat the labs tomorrow. He is to continue vancomycin and meropenem for now. I have left a slip for Bactrim, if he will go home, if his labs are stable. We will order labs tomorrow. PHYSICAL EXAMINATION: VITAL SIGNS: Stable. HEENT: Head is atraumatic, normocephalic. NECK: Supple. 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 He remains on Remicade, but at this time, we would like to get him out on oral antibiotics, if okay with the primary. When he is sent home, to discontinue the IV antibiotics and the PICC line. Santosh Daniel MD
[2017-09-07] MEDS: DiphenhydrAMINE 50 mg/ml Inj IVP PRN ×8 (00:57→22:10)
[2017-09-07] MEDS: Meropenem 1 GM in Sodium Chloride 0.9% 100 ML IVPB SCH ×3 (05:20→22:15)
[2017-09-07] MEDS: Multivitamin With Minerals Tab PO SCH (08:47)
[2017-09-07] MEDS: Tmp-Smz 800 mg-160 mg DS Tab PO SCH ×2 (10:03→22:31)
[2017-09-07] MEDS: Pantoprazole 40 mg EC Tab PO SCH ×2 (10:03→17:59)
[2017-09-07] MEDS: Tobramycin/Dexamethasone (Tobradex) Opth Sol (2.5 ml) OU SCH ×3 (10:04→17:58)
[2017-09-07 11:22] LABS: ALT/SGPT 34 U/L (21-72); AST/SGOT 38 U/L (17-59); BLOOD UREA NITROGEN 11 mg/dL (9-20); CALCIUM 9.6 mg/dl (8.6-10.4); GFR AFRICAN-AMERICAN > 60; GFR NON-AFRICAN AMERICAN > 60
--- NOTE | 2017-09-07 13:55 | CP.PCM.PN ---
Subjective - Date & Time of Evaluation Date of Evaluation: 09/07/17 Time of Evaluation: 13:55 Objective - Vital Signs/Intake and Output Vital Signs (last 24 hours): Temp Pulse Resp BP Pulse Ox 98.1 F 98 H 20 115/87 95 09/07/17 08:17 09/07/17 08:17 09/07/17 08:17 09/07/17 08:17 09/07/17 08:17 Intake and Output: 09/07/17 09/07/17 06:59 18:59 Intake Total 1490 Output Total 300 Balance 1190 - Medications Medications: Current Medications Ascorbic Acid (Vitamin C 500 Mg Tab) 500 mg PO DAILY [facility] Last Admin: 09/07/17 10:03 Dose: 500 mg Cyanocobalamin (Vitamin B12 1000 Mcg Tab) 1,000 mcg PO DAILY [facility] Last Admin: 09/07/17 10:04 Dose: 1,000 mcg Diphenhydramine HCl (Benadryl) 25 mg IVP Q3H PRN PRN Reason: Allergy symptoms Last Admin: 09/07/17 13:00 Dose: 25 mg Escitalopram Oxalate (Lexapro) 5 mg PO DAILY PRN PRN Reason: Anxiety Last Admin: 09/07/17 10:04 Dose: 5 mg Hydromorphone HCl (Dilaudid) 2 mg IVP Q3 [facility] Last Admin: 09/07/17 13:00 Dose: 2 mg Meropenem 1 gm/ Sodium (Chloride) 100 mls @ 100 mls/hr IVPB Q8 [facility] Last Admin: 09/07/17 13:04 Dose: 100 mls/hr Vancomycin/Sodium Chloride (Vancomycin 1 Gm/Ns 200 Ml) 1 gm in 200 mls @ 166.7 mls/hr IVPB Q24H [facility] Stop: 09/11/17 16:01 Last Admin: 09/06/17 16:06 Dose: 166.7 mls/hr Mesalamine (Delzicol) 800 mg PO TID [facility] Last Admin: 09/07/17 13:13 Dose: 800 mg Multivitamins/Minerals (Therapeutic-M Tab) 1 tab PO 0800 [facility] Last Admin: 09/07/17 08:47 Dose: 1 tab Mupirocin (Bactroban Ointment) 0 gm TOP DAILY PRN PRN Reason: SEE COMMENTS Last Admin: 09/06/17 10:33 Dose: 1 applic Pantoprazole Sodium (Protonix Ec Tab) 40 mg PO BID [facility] Last Admin: 09/07/17 10:03 Dose: 40 mg Tobramycin/Dexamethasone (Tobradex Opht Susp) 0.3 ml OU TID [facility] Last Admin: 09/07/17 13:12 Dose: 1 drop Trimethoprim/Sulfamethoxazole (Bactrim Ds Tab) 1 tab PO Q12H [facility] Last Admin: 09/07/17 10:03 Dose: 1 tab - Labs Labs: 09/01/17 16:13 09/07/17 11:01 PT 10.7 SECONDS (9.7-12.2) 08/28/17 22:54 INR 1.0 08/28/17 22:54 APTT 22 SECONDS (21-34) 08/28/17 22:54
[2017-09-07] MEDS: Vancomycin 1 gm/NS 200 ml 1 GM/200 ML BAG IVPB SCH (16:22)
[2017-09-08] MEDS: DiphenhydrAMINE 50 mg/ml Inj IVP PRN ×8 (01:25→23:30)
[2017-09-08] MEDS: Meropenem 1 GM in Sodium Chloride 0.9% 100 ML IVPB SCH ×3 (05:56→21:36)
[2017-09-08 08:12] VITALS: RESP 20
[2017-09-08] MEDS: Multivitamin With Minerals Tab PO SCH (08:32)
[2017-09-08] MEDS: Pantoprazole 40 mg EC Tab PO SCH ×2 (11:03→17:50)
[2017-09-08] MEDS: Tmp-Smz 800 mg-160 mg DS Tab PO SCH ×2 (11:03→21:40)
[2017-09-08] MEDS: Tobramycin/Dexamethasone (Tobradex) Opth Sol (2.5 ml) OU SCH ×3 (11:03→17:51)
--- NOTE | 2017-09-08 13:40 | CP.PCM.PN ---
Subjective - Date & Time of Evaluation Date of Evaluation: 09/08/17 Time of Evaluation: 13:40 Objective - Vital Signs/Intake and Output Vital Signs (last 24 hours): Temp Pulse Resp BP Pulse Ox 98 F 87 20 118/79 98 09/08/17 08:00 09/08/17 08:00 09/08/17 08:00 09/08/17 08:00 09/08/17 08:00 Intake and Output: 09/08/17 09/08/17 06:59 18:59 Intake Total 1400 Output Total 250 Balance 1150 - Medications Medications: Current Medications Ascorbic Acid (Vitamin C 500 Mg Tab) 500 mg PO DAILY [facility] Last Admin: 09/08/17 11:06 Dose: 500 mg Cyanocobalamin (Vitamin B12 1000 Mcg Tab) 1,000 mcg PO DAILY [facility] Last Admin: 09/08/17 11:02 Dose: 1,000 mcg Diphenhydramine HCl (Benadryl) 25 mg IVP Q3H PRN PRN Reason: Allergy symptoms Last Admin: 09/08/17 11:33 Dose: 25 mg Escitalopram Oxalate (Lexapro) 5 mg PO DAILY PRN PRN Reason: Anxiety Last Admin: 09/08/17 11:02 Dose: 5 mg Hydromorphone HCl (Dilaudid) 2 mg IVP Q3H [facility] Last Admin: 09/08/17 11:30 Dose: 2 mg Meropenem 1 gm/ Sodium (Chloride) 100 mls @ 100 mls/hr IVPB Q8 [facility] Last Admin: 09/08/17 05:56 Dose: 100 mls/hr Vancomycin/Sodium Chloride (Vancomycin 1 Gm/Ns 200 Ml) 1 gm in 200 mls @ 166.7 mls/hr IVPB Q24H [facility] Stop: 09/11/17 16:01 Last Admin: 09/07/17 16:22 Dose: 166.7 mls/hr Mesalamine (Delzicol) 800 mg PO TID [facility] Last Admin: 09/08/17 11:02 Dose: 800 mg Multivitamins/Minerals (Therapeutic-M Tab) 1 tab PO 0800 [facility] Last Admin: 09/08/17 08:32 Dose: 1 tab Mupirocin (Bactroban Ointment) 0 gm TOP DAILY PRN PRN Reason: SEE COMMENTS Last Admin: 09/06/17 10:33 Dose: 1 applic Pantoprazole Sodium (Protonix Ec Tab) 40 mg PO BID [facility] Last Admin: 09/08/17 11:03 Dose: 40 mg Tobramycin/Dexamethasone (Tobradex Opht Susp) 0.3 ml OU TID [facility] Last Admin: 09/08/17 11:03 Dose: 1 drop Trimethoprim/Sulfamethoxazole (Bactrim Ds Tab) 1 tab PO Q12H [facility] Last Admin: 09/08/17 11:03 Dose: 1 tab - Labs Labs: 09/01/17 16:13 09/07/17 11:01 PT 10.7 SECONDS (9.7-12.2) 08/28/17 22:54 INR 1.0 08/28/17 22:54 APTT 22 SECONDS (21-34) 08/28/17 22:54
[2017-09-08] MEDS: Vancomycin 1 gm/NS 200 ml 1 GM/200 ML BAG IVPB SCH ×3 (16:00→19:00)
[2017-09-09] MEDS: DiphenhydrAMINE 50 mg/ml Inj IVP PRN ×6 (02:31→17:49)
[2017-09-09] MEDS: Meropenem 1 GM in Sodium Chloride 0.9% 100 ML IVPB SCH ×2 (05:34→14:53)
[2017-09-09] MEDS: Multivitamin With Minerals Tab PO SCH (08:32)
[2017-09-09] MEDS: Pantoprazole 40 mg EC Tab PO SCH ×2 (10:42→17:48)
[2017-09-09] MEDS: Tmp-Smz 800 mg-160 mg DS Tab PO SCH (10:42)
[2017-09-09] MEDS: Tobramycin/Dexamethasone (Tobradex) Opth Sol (2.5 ml) OU SCH ×3 (10:43→17:46)
--- NOTE | 2017-09-09 12:31 | CP.PCM.PN ---
Subjective - Date & Time of Evaluation Date of Evaluation: 09/09/17 Time of Evaluation: 12:31 Objective - Vital Signs/Intake and Output Vital Signs (last 24 hours): Temp Pulse Resp BP Pulse Ox 98.1 F 100 H 20 121/82 97 09/09/17 08:13 09/09/17 08:13 09/09/17 08:13 09/09/17 08:13 09/09/17 08:13 Intake and Output: 09/09/17 09/09/17 06:59 18:59 Intake Total 1440 Output Total 200 Balance 1240 - Medications Medications: Current Medications Ascorbic Acid (Vitamin C 500 Mg Tab) 500 mg PO DAILY [facility] Last Admin: 09/09/17 10:45 Dose: 500 mg Cyanocobalamin (Vitamin B12 1000 Mcg Tab) 1,000 mcg PO DAILY [facility] Last Admin: 09/09/17 10:42 Dose: 1,000 mcg Diphenhydramine HCl (Benadryl) 25 mg IVP Q3H PRN PRN Reason: Allergy symptoms Last Admin: 09/09/17 11:32 Dose: 25 mg Escitalopram Oxalate (Lexapro) 5 mg PO DAILY PRN PRN Reason: Anxiety Last Admin: 09/08/17 11:02 Dose: 5 mg Hydromorphone HCl (Dilaudid) 2 mg IVP Q3H [facility] Last Admin: 09/09/17 11:32 Dose: 2 mg Meropenem 1 gm/ Sodium (Chloride) 100 mls @ 100 mls/hr IVPB Q8 [facility] Last Admin: 09/09/17 05:34 Dose: 100 mls/hr Vancomycin/Sodium Chloride (Vancomycin 1 Gm/Ns 200 Ml) 1 gm in 200 mls @ 166.7 mls/hr IVPB Q24H [facility] Stop: 09/11/17 16:01 Last Admin: 09/08/17 16:00 Dose: Not Given Mesalamine (Delzicol) 800 mg PO TID [facility] Last Admin: 09/09/17 10:42 Dose: 800 mg Multivitamins/Minerals (Therapeutic-M Tab) 1 tab PO 0800 [facility] Last Admin: 09/09/17 08:32 Dose: 1 tab Mupirocin (Bactroban Ointment) 0 gm TOP DAILY PRN PRN Reason: SEE COMMENTS Last Admin: 09/06/17 10:33 Dose: 1 applic Pantoprazole Sodium (Protonix Ec Tab) 40 mg PO BID [facility] Last Admin: 09/09/17 10:42 Dose: 40 mg Tobramycin/Dexamethasone (Tobradex Opht Susp) 0.3 ml OU TID [facility] Last Admin: 09/09/17 10:43 Dose: 1 drop Trimethoprim/Sulfamethoxazole (Bactrim Ds Tab) 1 tab PO Q12H [facility] Last Admin: 09/09/17 10:42 Dose: 1 tab - Labs Labs: 09/01/17 16:13 09/07/17 11:01 PT 10.7 SECONDS (9.7-12.2) 08/28/17 22:54 INR 1.0 08/28/17 22:54 APTT 22 SECONDS (21-34) 08/28/17 22:54
[2017-09-09 17:01] VITALS: BP 125/81; PULSE 109; TEMP 98.8; O2SAT 100
[2017-09-09] MEDS: Vancomycin 1 gm/NS 200 ml 1 GM/200 ML BAG IVPB SCH (17:55)
== END 2017-09-09 20:54 | disposition home or self-care (01) | DRG 179 ==
LOC: C.ER 20:23 → C.9E 08-29 01:24 → C.3T 08-29 15:29
PROVIDERS: ADMIT Internal Medicine Nephrology; ATTEND Internal Medicine Nephrology
PROC: 05H933Z Insertion of Infusion Device into Right Brachial Vein, Percutaneous Approach (ICD-10-PCS; principal; 2017-09-01)
PROC: B51MZZA Fluoroscopy of Right Upper Extremity Veins, Guidance (ICD-10-PCS; 2017-09-01)
PROC: B54MZZA Ultrasonography of Right Upper Extremity Veins, Guidance (ICD-10-PCS; 2017-09-01)
DX: K50.911 Crohn's disease, unspecified, with rectal bleeding (principal); L02.31 Cutaneous abscess of buttock; K61.0 Anal abscess; K61.1 Rectal abscess; L02.215 Cutaneous abscess of perineum; B96.20 Unspecified Escherichia coli [E. coli] as the cause of diseases classified elsewhere; B95.2 Enterococcus as the cause of diseases classified elsewhere; I82.B29 Chronic embolism and thrombosis of unspecified subclavian vein; I82.A2 Chronic embolism and thrombosis of axillary vein; F41.9 Anxiety disorder, unspecified; Z93.3 Colostomy status; F32.9 Major depressive disorder, single episode, unspecified; Z88.5 Allergy status to narcotic agent; Z86.718 Personal history of other venous thrombosis and embolism; Z90.49 Acquired absence of other specified parts of digestive tract

== ENCOUNTER 2017-09-15 20:21 | Inpatient (IN) | payer MEDICAID ==
[2017-09-15 20:23] VITALS: BMI 20.6
[2017-09-15] MEDS ORDERED: Sodium Chloride 0.9% 1,000 ML IV ONE (21:46)
[2017-09-15] MEDS ORDERED: DiphenhydrAMINE 50 mg/ml Inj IVP STA (21:46)
[2017-09-15] MEDS ORDERED: HYDROmorphone 1 mg/ml ISec IVP STA (21:46)
[2017-09-15] MEDS ORDERED: DiphenhydrAMINE 50 mg/ml Inj ONE (22:07)
[2017-09-15] MEDS ORDERED: Sodium Chloride 0.9% 1,000 ML ONE (22:08)
[2017-09-15 22:35] LABS: BASO # 0.1 K/uL (0.0-0.2); BASO % 0.6 % (0.0-2.0); EOS # 0.2 K/uL (0.0-0.7); EOS % 1.8 % (0.0-4.0); HEMOGLOBIN 10.6 g/dL (12.0-18.0); LYMPH # 5.2 K/uL (1.0-4.3); MEAN CELL VOLUME 70.4 fL (80.0-94.0); MEAN CORPUSCULAR HEMOGLOBIN 22.4 pg (27.0-31.0); MEAN CORPUSCULAR HGB CONC 31.9 g/dL (33.0-37.0); MEAN PLATELET VOLUME 7.9 fL (7.2-11.7); MONO # 0.8 K/uL (0.0-0.8); MONO % 6.1 % (0.0-10.0); NEUT # 7.4 K/uL (1.8-7.0); NEUT % 53.5 % (50.0-75.0); RBC 4.71 Mil/uL (4.40-5.90); WHITE BLOOD COUNT 13.8 K/uL (4.8-10.8)
[2017-09-15 22:45] LABS: ALB/GLOB RATIO 0.9 (1.0-2.1); ALBUMIN 3.9 g/dL (3.5-5.0); ALT/SGPT 40 U/L (21-72); AST/SGOT 35 U/L (17-59); BLOOD UREA NITROGEN 13 mg/dL (9-20); CALCIUM 8.2 mg/dl (8.6-10.4); GFR AFRICAN-AMERICAN > 60; GFR NON-AFRICAN AMERICAN > 60; LIPASE 268 U/L (23-300)
--- NOTE | 2017-09-15 23:21 | C.PDOC ---
History Of Present Illness 22 year old male presents to the ER with a complaint of passing stool through his perineum wounds. Patient has been seen multiple times for the same; he has a Hx of crohn's disease and chronic wounds. Denies fever or chills. Time Seen by Provider: 09/15/17 21:13 Chief Complaint (Nursing): GI Problem History Per: Patient History/Exam Limitations: no limitations Onset/Duration Of Symptoms: Hrs Current Symptoms Are (Timing): Still Present Radiation Of Pain To:: None Quality Of Discomfort: Unable To Describe Associated Symptoms: denies: Fever, Chills Exacerbating Factors: None Alleviating Factors: None Recent travel outside of the [place]: No Past Medical History Reviewed: Historical Data, Nursing Documentation, Vital Signs Vital Signs: Last Vital Signs Temp 98.2 F 09/15/17 20:33 Pulse 120 H 09/16/17 00:42 Resp 20 09/16/17 00:42 BP 136/76 09/16/17 00:42 Pulse Ox 96 09/16/17 00:42 - Medical History PMH: Crohn's Disease (COLOSTOMY 2016), Depression - [facility] Procedures DRAINAGE OF BACK SKIN, EXTERNAL APPROACH (06/22/17) DRAINAGE OF BACK SUBCU/FASCIA, OPEN APPROACH (10/21/16) DRAINAGE OF BUTTOCK SKIN, EXTERNAL APPROACH, DIAGNOSTIC (09/23/16) DRAINAGE OF BUTTOCK SUBCU/FASCIA, OPEN APPROACH (03/22/17) DRAINAGE OF BUTTOCK SUBCU/FASCIA, OPEN APPROACH, DIAGN (03/22/17) DRAINAGE OF LEFT AXILLA, OPEN APPROACH (12/21/16) DRAINAGE OF PERINEUM SKIN, EXTERNAL APPROACH (06/22/17) DRAINAGE OF PERINEUM SUBCU/FASCIA, OPEN APPROACH (01/30/17) EXCISION OF BACK SKIN, EXTERNAL APPROACH (09/23/16) EXCISION OF BACK SUBCU/FASCIA, OPEN APPROACH (10/21/16) EXCISION OF BUTTOCK SKIN, EXTERNAL APPROACH (03/22/17) EXCISION OF BUTTOCK SUBCU/FASCIA, OPEN APPROACH (10/21/16) EXCISION OF LEFT AXILLARY LYMPHATIC, OPEN APPROACH (12/21/16) EXCISION OF PERINEUM SKIN, EXTERNAL APPROACH (03/22/17) EXTRACTION OF BUTTOCK SKIN, EXTERNAL APPROACH (09/23/16) EXTRACTION OF PERINEUM SUBCU/FASCIA, OPEN APPROACH (01/30/17) FLUOROSCOPY OF RIGHT UPPER EXTREMITY VEINS, GUIDANCE (08/29/17) GROUP PSYCHOTHERAPY (11/25/16) INDIVIDUAL PSYCHOTHERAPY, COGNITIVE-BEHAVIORAL (11/25/16) INDIVIDUAL PSYCHOTHERAPY, SUPPORTIVE (05/23/17) INSERTION OF INFUSION DEV INTO R BRACH VEIN, PERC APPROACH (08/29/17) INSERTION OF INFUSION DEV INTO SUP VENA CAVA, PERC APPROACH (08/12/17) REMOVAL OF INFUSION DEV FROM GREAT VESSEL, SUPERVISOR POWER REACTOR APPROACH (12/21/16) REMOVAL OF RESERVOIR FROM TRUNK SUBCU/FASCIA, OPEN APPROACH (07/07/17) ULTRASONOGRAPHY OF RIGHT UPPER EXTREMITY VEINS, GUIDANCE (08/29/17) ULTRASONOGRAPHY OF SUPERIOR VENA CAVA, GUIDANCE (05/23/17) Family History: States: Unknown Family Hx - Social History Hx Alcohol Use: No Hx Substance Use: No - Immunization History Hx Tetanus Toxoid Vaccination: No Hx Influenza Vaccination: Yes Hx Pneumococcal Vaccination: No Review Of Systems Constitutional: Negative for: Fever, Chills Cardiovascular: Negative for: Chest Pain, Palpitations Respiratory: Negative for: Shortness of Breath Gastrointestinal: Positive for: Other (Passing stools through perineum). Negative for: Nausea, Vomiting Physical Exam - Physical Exam Appears: Chronically Ill, Other (Thin) Skin: Normal Color, Warm, Dry Head: Atraumatic, Normacephalic Oral Mucosa: Moist Neck: Normal, Supple Chest: Symmetrical, No Tenderness Cardiovascular: Rhythm Regular Respiratory: Normal Breath Sounds, No Rales, No Rhonchi, No Wheezing Gastrointestinal/Abdominal: Soft, No Tenderness, Other (right lower colostomy) Male Genital: Other (Chronic perineum wounds and stool) ED Course And Treatment - Laboratory Results Result Diagrams: 09/15/17 22:30 09/15/17 22:30 Lab Interpretation: Abnormal (no acute renal insuffiency) O2 Sat by Pulse Oximetry: 98 (Room air ) Pulse Ox Interpretation: Normal - Physician Consult Information Outcome Of Conversation: [id number]: d/w Dr. Eric Barrett, ok to admit. Medical Decision Making Medical Decision Making: acute on chronic buttock/perenial wound care/pain no dehydration. Disposition Doctor Will See Patient In The: Office Counseled Patient/Family Regarding: Studies Performed, Diagnosis - Disposition Disposition: HOME/ ROUTINE Disposition Time: 23:20 Condition: GOOD - Clinical Impression Clinical Impression: Encounter for wound care, Crohn disease - Scribe Statement The provider has reviewed the documentation as recorded by the Scribkenna Velásquez All medical record entries made by the Laneyibe were at my direction and personally dictated by me. I have reviewed the chart and agree that the record accurately reflects my personal performance of the history, physical exam, medical decision making, and the department course for this patient. I have also personally directed, reviewed, and agree with the discharge instructions and disposition.
[2017-09-16] MEDS ORDERED: DiphenhydrAMINE 50 mg/ml Inj IVP STA (00:38)
[2017-09-16] MEDS ORDERED: HYDROmorphone 1 mg/ml ISec IVP STA (00:38)
[2017-09-16] MEDS ORDERED: DiphenhydrAMINE 50 mg/ml Inj ONE ×3 (00:45→07:57)
[2017-09-16] MEDS: DiphenhydrAMINE 50 mg/ml Inj IVP PRN ×5 (03:57→20:28)
--- NOTE | 2017-09-16 07:08 | CP.PCM.CON ---
<Mariana Max - Last Filed: 09/16/17 14:17> History of Present Illness - History of Present Illness History of Present Illness: GI consult note for Dr Tobin's service Reason for consult: Crohns Patient is a 22 y/o male with pmh of crohn diseas, perianal abscess, and fistula , s/p colonic resection and colostomy presenting due to leakage of stool thru the perianal fistula. Patient states he is having bowel movement thru the ostomy , anal and some of the stool is also passing through the fistula. Patient states he has the chronic perineum wounds and his private health plan specialist told him to ask a surgeon to close the wound to avoid the stool from passing thru it. The perianal wounds has been getting worst and draining more abscess. Patient also states yesterday morning he had fresh bloody vomitus three time. Patient states this is chronic, had EGD 06/19/17 with no significant finding. States he brought this up with his private health plan specialist, was told he needs a repeat EGD, however he hasn't been able to follow up. Denies nausea, no vomiting since presenting to the ED, patient is able to eat chips and drink soda with no problem. Denies recent weight loss. Admits to abdominal pain around the ostomy. PMHx: crohn diseas, perianal abscess, and fistula, s/p colonic resection and colostomy PSHX: I&Ds, colostomy, colonic resection FMHx: crohn's Social: Denies alcohol, tobacco and illicit drug use. Allergy: Morphine home meds: esacol po tid, ramicade qmonthly, last dose was jul 28August dose held due to vomiting, to resume it next month. protonix 40, carafate Review of Systems - Review of Systems All systems: reviewed and no additional remarkable complaints except Review of Systems: 12 point ROS reviewed, all negative except as per HPI. Past Patient History - Infectious Disease Hx of Infectious Diseases: None - Past Medical History & Family History Past Medical History?: Yes - Past Social History Smoking Status: Never Smoked Alcohol: None Drugs: Denies Home Situation {Lives}: With Family - CARDIAC Hx Cardiac Disorders: No - PULMONARY Hx Respiratory Disorders: No - NEUROLOGICAL Hx Neurological Disorder: No - HEENT Hx HEENT Problems: No - RENAL Hx Chronic Kidney Disease: No - ENDOCRINE/METABOLIC Hx Endocrine Disorders: No - HEMATOLOGICAL/ONCOLOGICAL Hx Blood Disorders: No - INTEGUMENTARY Hx Dermatological Problems: Yes Other/Comment: Perineal wound. Rectal abcess - MUSCULOSKELETAL/RHEUMATOLOGICAL Hx Falls: Yes - GASTROINTESTINAL Hx Crohn's Disease: Yes (COLOSTOMY 2016) - GENITOURINARY/GYNECOLOGICAL Hx Genitourinary Disorders: No - PSYCHIATRIC Hx Depression: Yes Hx Substance Use: No - SURGICAL HISTORY Hx Surgeries: Yes (SEE COMMENT) Other/Comment: LOOP COLOSTOMY. Perineal wound. COLON RESECTION - ANESTHESIA Hx Anesthesia: Yes Hx Anesthesia Reactions: No Hx Malignant Hyperthermia: No Meds Allergies/Adverse Reactions: Allergies Allergy/AdvReac Type Severity Reaction Status Date / Time morphine Allergy Severe ITCHING Verified 09/15/17 20:35 - Medications Medications: Current Medications Ascorbic Acid (Vitamin C 500 Mg Tab) 500 mg PO DAILY [facility] Cyanocobalamin (Vitamin B12 1000 Mcg Tab) 1,000 mcg PO DAILY [facility] Diphenhydramine HCl (Benadryl) 25 mg IVP Q3 PRN PRN Reason: Itching / Pruritus Last Admin: 09/16/17 03:57 Dose: 25 mg Hydromorphone HCl (Dilaudid) 2 mg IVP Q3 PRN PRN Reason: for pain Last Admin: 09/16/17 03:56 Dose: 2 mg Pantoprazole Sodium (Protonix Ec Tab) 40 mg PO DAILY [facility] Physical Exam - Constitutional Appears: No Acute Distress - Head Exam Head Exam: ATRAUMATIC, NORMAL INSPECTION, NORMOCEPHALIC - Eye Exam Eye Exam: Normal appearance - ENT Exam ENT Exam: Mucous Membranes Moist - Neck Exam Neck exam: Positive for: Normal Inspection - Respiratory Exam Respiratory Exam: Clear to Auscultation Bilateral, NORMAL BREATHING PATTERN. absent: Rales, Rhonchi, Wheezes, Respiratory Distress, Stridor - Cardiovascular Exam Cardiovascular Exam: REGULAR RHYTHM, +S1, +S2. absent: Systolic Murmur - GI/Abdominal Exam GI & Abdominal Exam: Normal Bowel Sounds, Soft. absent: Distended, Firm, Guarding, Rigid, Tenderness Additional comments: + ostomy with well formed stool. + demarcations on the abdomen from the dressing. - Rectal Exam Additional comments: Rectal and peianal region with purulent discharge mixed with stool. Non foul smelly. - Extremities Exam Extremities exam: Positive for: normal inspection. Negative for: pedal edema - Back Exam Back exam: NORMAL INSPECTION - Neurological Exam Neurological exam: Alert, Oriented x3 - Psychiatric Exam Psychiatric exam: Normal Affect, Normal Mood - Skin Skin Exam: Dry, Normal Color, Warm Results - Vital Signs Recent Vital Signs: Last Vital Signs Temp 98.3 F 09/16/17 06:34 Pulse 100 H 09/16/17 06:34 Resp 20 09/16/17 06:34 BP 120/71 09/16/17 06:34 Pulse Ox 99 09/16/17 06:34 - Labs Result Diagrams: 09/15/17 22:30 09/15/17 22:30 Labs: Laboratory Results - last 24 hr 09/15/17 09/15/17 22:30 22:30 WBC 13.8 H RBC 4.71 Hgb 10.6 L Hct 33.2 L MCV 70.4 L MCH 22.4 L MCHC 31.9 L RDW 18.0 H Plt Count 443 H MPV 7.9 Neut % (Auto) 53.5 Lymph % (Auto) 38.0 [place] % (Auto) 6.1 Eos % (Auto) 1.8 Baso % (Auto) 0.6 Neut # 7.4 H Lymph # 5.2 H [place] # 0.8 Eos # 0.2 Baso # 0.1 Sodium 131 L Potassium 4.8 Chloride 103 Carbon Dioxide 19 L Anion Gap 13 BUN 13 Creatinine 0.6 L Est GFR ( Amer) > 60 Est GFR (Non-Af Amer) > 60 Random Glucose 83 Calcium 8.2 L Total Bilirubin 0.6 AST 35 ALT 40 Alkaline Phosphatase 115 Total Protein 8.2 Albumin 3.9 Globulin 4.3 H Albumin/Globulin Ratio 0.9 L Lipase 268 Assessment & Plan - Assessment and Plan (Free Text) Assessment: Patient is a 22 y/o male with pmh of crohn disease, perianal abscess, and fistula, s/p colonic resection and colostomy presenting due to leakage of stool thru the perianal fistula, along with intermittent chronic hematemesis. 1- perianal abscess likely due to fistula 2- Chronic hematemesis 3- Chronic anemia- h/h stable 4- Abdominal pain Plan: - Follow up with surgery for recommendations - H/H stable, continue to monitor - No signs of bleeding and patient is hemodynamically stable - Pain control - Diet as tolerated - No urgent GI intervention at this time. - Will resume protonix, carafate and asacol. Patient seen, examined and case discussed with Dr Tobin. - Date & Time Date: 09/16/17 Time: 08:35 <Stevie Tobin - Last Filed: 09/16/17 15:40> Meds - Medications Medications: Current Medications Ascorbic Acid (Vitamin C 500 Mg Tab) 500 mg PO DAILY [facility] Last Admin: 09/16/17 11:03 Dose: 500 mg Cyanocobalamin (Vitamin B12 1000 Mcg Tab) 1,000 mcg PO DAILY [facility] Last Admin: 09/16/17 14:07 Dose: 1,000 mcg Diphenhydramine HCl (Benadryl) 25 mg IVP Q3 PRN PRN Reason: Itching / Pruritus Last Admin: 09/16/17 14:06 Dose: 25 mg Enoxaparin Sodium (Lovenox) 40 mg SC DAILY [facility] Last Admin: 09/16/17 11:03 Dose: 40 mg Hydromorphone HCl (Dilaudid) 2 mg IVP Q3 PRN PRN Reason: for pain Last Admin: 09/16/17 14:06 Dose: 2 mg Mesalamine (Delzicol) 800 mg PO TID [facility] Pantoprazole Sodium (Protonix Ec Tab) 40 mg PO DAILY [facility] Last Admin: 09/16/17 11:03 Dose: 40 mg Sucralfate (Carafate Tab) 1 gm PO BID [facility] Results - Vital Signs Recent Vital Signs: Last Vital Signs Temp 97.7 F 09/16/17 08:39 Pulse 86 09/16/17 08:39 Resp 18 09/16/17 08:39 BP 117/71 09/16/17 08:39 Pulse Ox 100 09/16/17 08:39 - Labs Result Diagrams: 09/15/17 22:30 09/15/17 22:30 Labs: Laboratory Results - last 24 hr 09/15/17 09/15/17 22:30 22:30 WBC 13.8 H RBC 4.71 Hgb 10.6 L Hct 33.2 L MCV 70.4 L MCH 22.4 L MCHC 31.9 L RDW 18.0 H Plt Count 443 H MPV 7.9 Neut % (Auto) 53.5 Lymph % (Auto) 38.0 [place] % (Auto) 6.1 Eos % (Auto) 1.8 Baso % (Auto) 0.6 Neut # 7.4 H Lymph # 5.2 H [place] # 0.8 Eos # 0.2 Baso # 0.1 Sodium 131 L Potassium 4.8 Chloride 103 Carbon Dioxide 19 L Anion Gap 13 BUN 13 Creatinine 0.6 L Est GFR ( Amer) > 60 Est GFR (Non-Af Amer) > 60 Random Glucose 83 Calcium 8.2 L Total Bilirubin 0.6 AST 35 ALT 40 Alkaline Phosphatase 115 Total Protein 8.2 Albumin 3.9 Globulin 4.3 H Albumin/Globulin Ratio 0.9 L Lipase 268 Attending/Attestation - Attestation I have personally seen and examined this patient.: Yes I have fully participated in the care of the patient.: Yes I have reviewed all pertinent clinical information: Yes Notes (Text): 09/16/17 15:38 22 year old male with Crohn's disease s/p colonic resection and colostomy admitted with complaints regarding perianala abscess and fistula. 1. Crohn's disease Plan: -recommend surgical evaluation of perianal abscess and fistula -otherwise, continue his outpatient medical regimen for Crohn's (remicade) and asacol -continue PPI/carafate -no bleeding -normal stool in ostomy -diet as tolerated -will sign off
[2017-09-16] MEDS: Pantoprazole 40 mg EC Tab PO SCH (11:03)
[2017-09-16] MEDS: Enoxaparin 40 mg Syringe SC SCH (11:03)
--- NOTE | 2017-09-16 19:21 | CP.PCM.HP ---
Past Patient History - Infectious Disease Hx of Infectious Diseases: None - Past Medical History & Family History Past Medical History?: Yes - Past Social History Smoking Status: Never Smoked Alcohol: None Drugs: Denies Home Situation {Lives}: With Family - CARDIAC Hx Cardiac Disorders: No - PULMONARY Hx Respiratory Disorders: No - NEUROLOGICAL Hx Neurological Disorder: No - HEENT Hx HEENT Problems: No - RENAL Hx Chronic Kidney Disease: No - ENDOCRINE/METABOLIC Hx Endocrine Disorders: No - HEMATOLOGICAL/ONCOLOGICAL Hx Blood Disorders: No - INTEGUMENTARY Hx Dermatological Problems: Yes Other/Comment: Perineal wound. Rectal abcess - MUSCULOSKELETAL/RHEUMATOLOGICAL Hx Falls: Yes - GASTROINTESTINAL Hx Crohn's Disease: Yes (COLOSTOMY 2016) - GENITOURINARY/GYNECOLOGICAL Hx Genitourinary Disorders: No - PSYCHIATRIC Hx Depression: Yes Hx Substance Use: No - SURGICAL HISTORY Hx Surgeries: Yes (SEE COMMENT) Other/Comment: LOOP COLOSTOMY. Perineal wound. COLON RESECTION - ANESTHESIA Hx Anesthesia: Yes Hx Anesthesia Reactions: No Hx Malignant Hyperthermia: No Meds Allergies/Adverse Reactions: Allergies Allergy/AdvReac Type Severity Reaction Status Date / Time morphine Allergy Severe ITCHING Verified 09/15/17 20:35 Physical Exam - Constitutional Appears: Well - Head Exam Head Exam: ATRAUMATIC, NORMAL INSPECTION, NORMOCEPHALIC - Eye Exam Eye Exam: EOMI, Normal appearance, PERRL Pupil Exam: NORMAL ACCOMODATION, PERRL - ENT Exam ENT Exam: Mucous Membranes Moist, Normal Exam - Neck Exam Neck exam: Positive for: Normal Inspection - Respiratory Exam Respiratory Exam: Decreased Breath Sounds - Cardiovascular Exam Cardiovascular Exam: REGULAR RHYTHM, +S1, +S2 - GI/Abdominal Exam GI & Abdominal Exam: Diminished Bowel Sounds, Soft - Rectal Exam Rectal Exam: Deferred Results - Vital Signs Recent Vital Signs: Last Vital Signs Temp 98.2 F 09/16/17 16:57 Pulse 95 H 09/16/17 16:57 Resp 20 09/16/17 16:57 BP 118/75 09/16/17 16:57 Pulse Ox 95 09/16/17 16:57 - Labs Result Diagrams: 09/15/17 22:30 09/15/17 22:30 Labs: Laboratory Results - last 24 hr 09/15/17 09/15/17 22:30 22:30 WBC 13.8 H RBC 4.71 Hgb 10.6 L Hct 33.2 L MCV 70.4 L MCH 22.4 L MCHC 31.9 L RDW 18.0 H Plt Count 443 H MPV 7.9 Neut % (Auto) 53.5 Lymph % (Auto) 38.0 [place] % (Auto) 6.1 Eos % (Auto) 1.8 Baso % (Auto) 0.6 Neut # 7.4 H Lymph # 5.2 H [place] # 0.8 Eos # 0.2 Baso # 0.1 Sodium 131 L Potassium 4.8 Chloride 103 Carbon Dioxide 19 L Anion Gap 13 BUN 13 Creatinine 0.6 L Est GFR ( Amer) > 60 Est GFR (Non-Af Amer) > 60 Random Glucose 83 Calcium 8.2 L Total Bilirubin 0.6 AST 35 ALT 40 Alkaline Phosphatase 115 Total Protein 8.2 Albumin 3.9 Globulin 4.3 H Albumin/Globulin Ratio 0.9 L Lipase 268
[2017-09-16] MEDS: Vancomycin 1 gm/NS 200 ml 1 GM/200 ML BAG IVPB SCH (19:42)
[2017-09-16] MEDS: Meropenem 1 GM in Sodium Chloride 0.9% 100 ML IVPB SCH (21:32)
--- NOTE | 2017-09-16 22:04 | CP.PCM.CON ---
History of Present Illness - History of Present Illness History of Present Illness: dictated Past Patient History - Infectious Disease Hx of Infectious Diseases: None - Past Medical History & Family History Past Medical History?: Yes - Past Social History Smoking Status: Never Smoked Alcohol: None Drugs: Denies Home Situation {Lives}: With Family - CARDIAC Hx Cardiac Disorders: No - PULMONARY Hx Respiratory Disorders: No - NEUROLOGICAL Hx Neurological Disorder: No - HEENT Hx HEENT Problems: No - RENAL Hx Chronic Kidney Disease: No - ENDOCRINE/METABOLIC Hx Endocrine Disorders: No - HEMATOLOGICAL/ONCOLOGICAL Hx Blood Disorders: No - INTEGUMENTARY Hx Dermatological Problems: Yes Other/Comment: Perineal wound. Rectal abcess - MUSCULOSKELETAL/RHEUMATOLOGICAL Hx Falls: Yes - GASTROINTESTINAL Hx Crohn's Disease: Yes (COLOSTOMY 2015) - GENITOURINARY/GYNECOLOGICAL Hx Genitourinary Disorders: No - PSYCHIATRIC Hx Depression: Yes Hx Substance Use: No - SURGICAL HISTORY Hx Surgeries: Yes (SEE COMMENT) Other/Comment: LOOP COLOSTOMY. Perineal wound. COLON RESECTION - ANESTHESIA Hx Anesthesia: Yes Hx Anesthesia Reactions: No Hx Malignant Hyperthermia: No Meds Allergies/Adverse Reactions: Allergies Allergy/AdvReac Type Severity Reaction Status Date / Time morphine Allergy Severe ITCHING Verified 09/15/17 20:35 - Medications Medications: Current Medications Ascorbic Acid (Vitamin C 500 Mg Tab) 500 mg PO DAILY [facility] Last Admin: 09/16/17 11:03 Dose: 500 mg Cyanocobalamin (Vitamin B12 1000 Mcg Tab) 1,000 mcg PO DAILY [facility] Last Admin: 09/16/17 14:07 Dose: 1,000 mcg Diphenhydramine HCl (Benadryl) 25 mg IVP Q3 PRN PRN Reason: Itching / Pruritus Last Admin: 09/16/17 20:28 Dose: 25 mg Enoxaparin Sodium (Lovenox) 40 mg SC DAILY [facility] Last Admin: 09/16/17 11:03 Dose: 40 mg Hydromorphone HCl (Dilaudid) 2 mg IVP Q3 PRN PRN Reason: for pain Last Admin: 09/16/17 20:28 Dose: 2 mg Meropenem 1 gm/ Sodium (Chloride) 100 mls @ 100 mls/hr IVPB Q8 [facility] Last Admin: 09/16/17 21:32 Dose: 100 mls/hr Vancomycin/Sodium Chloride (Vancomycin 1 Gm/Ns 200 Ml) 1 gm in 200 mls @ 133 mls/hr IVPB Q24H [facility] Stop: 09/21/17 20:01 Last Admin: 09/16/17 19:42 Dose: 133 mls/hr Mesalamine (Delzicol) 800 mg PO TID [facility] Last Admin: 09/16/17 17:18 Dose: 800 mg Pantoprazole Sodium (Protonix Ec Tab) 40 mg PO DAILY [facility] Last Admin: 09/16/17 11:03 Dose: 40 mg Sucralfate (Carafate Tab) 1 gm PO BID [facility] Last Admin: 09/16/17 17:18 Dose: 1 gm Results - Vital Signs Recent Vital Signs: Last Vital Signs Temp 98.2 F 09/16/17 16:57 Pulse 95 H 09/16/17 16:57 Resp 20 09/16/17 16:57 BP 118/75 09/16/17 16:57 Pulse Ox 95 09/16/17 16:57 - Labs Result Diagrams: 09/15/17 22:30 09/15/17 22:30 Labs: Laboratory Results - last 24 hr 09/15/17 09/15/17 22:30 22:30 WBC 13.8 H RBC 4.71 Hgb 10.6 L Hct 33.2 L MCV 70.4 L MCH 22.4 L MCHC 31.9 L RDW 18.0 H Plt Count 443 H MPV 7.9 Neut % (Auto) 53.5 Lymph % (Auto) 38.0 [place] % (Auto) 6.1 Eos % (Auto) 1.8 Baso % (Auto) 0.6 Neut # 7.4 H Lymph # 5.2 H [place] # 0.8 Eos # 0.2 Baso # 0.1 Sodium 131 L Potassium 4.8 Chloride 103 Carbon Dioxide 19 L Anion Gap 13 BUN 13 Creatinine 0.6 L Est GFR ( Amer) > 60 Est GFR (Non-Af Amer) > 60 Random Glucose 83 Calcium 8.2 L Total Bilirubin 0.6 AST 35 ALT 40 Alkaline Phosphatase 115 Total Protein 8.2 Albumin 3.9 Globulin 4.3 H Albumin/Globulin Ratio 0.9 L Lipase 268
[2017-09-17] MEDS: DiphenhydrAMINE 50 mg/ml Inj IVP PRN ×8 (00:07→23:31)
--- NOTE | 2017-09-17 03:51 | CON ---
DATE: HISTORY OF PRESENT ILLNESS: This patient has been complaining of having perineal wounds. He is not getting better. He says his wounds smell so bad that people do not want to come in to the room and he has been having history of Crohn's and chronic wounds in the perineum. He is also passing feces through that and has drainage. He did say he had fever yesterday and he has not received any more Remicade since he left last. He says his Bactrim finished yesterday and he has had these lesions in his back again. He does have colostomy, depression. FAMILY HISTORY: Noncontributory. SOCIAL HISTORY: Negative for smoking or drinking. He is always in pain due to these lesions between his 2 buttocks as well as in the perineum, which open up and drain. He did say to me that he had fever yesterday. No fever today. No chills. No chest pain. No shortness of breath. He is concerned about the fistula and passing stool through the area and also denies any nausea and vomiting. He was seen by the GI and we will follow their recommendations. MEDICATIONS: He is on ascorbic acid, B12, Benadryl, Lovenox, Dilaudid, meropenem just started and he is on , mesalamine, Protonix, Carafate and we are going to give him vancomycin 1 g daily. He is on these opioids which takes away his pain according to him. He was seen by GI. PHYSICAL EXAMINATION: GENERAL: He is alert, awake. VITAL SIGNS: On examination now I find his vitals, T-max is 98.2, pulse 95, blood pressure 118/75, respirations are 20. HEENT: Head is atraumatic. Pupils are reacting to light. He has discoloration in the right eye, which could be uveitis, which started on one of his last admissions. He is being following with the household personal assistant. He also complains of bleeding though his mouth. He has had GI workup and GI is on board at this time. NECK: Supple. LUNGS: Clear. No crackles or rales heard. HEART: S1 and S2 are regular. ABDOMEN: Has this colostomy, left side. Abdomen also has all these argueta due to the tape from the colostomy. Colostomies have functioning well. He has excoriation of the skin between the 2 buttocks and interiorly there is mushy pus coming out from some areas and just foul smelling. EXTREMITIES: Have no edema, clubbing or cyanosis. LABORATORY DATA: Labs were noted. Labs show white count is 13.8, hemoglobin 10.6, hematocrit 33.2, platelet count is 443 and BUN is 13, creatinine 0.6, lipase is 268. ASSESSMENT: He comes in with these abscesses. He has Crohn's disease with fistulas and multiple abscesses in the perineum and has a high white count and we will follow. He has had methicillin-resistant Staphylococcus aureus and resistant organisms in the past and thus started him on vancomycin and meropenem. Santosh Daniel MD
[2017-09-17] MEDS: Meropenem 1 GM in Sodium Chloride 0.9% 100 ML IVPB SCH ×3 (05:45→22:51)
[2017-09-17] MEDS: Pantoprazole 40 mg EC Tab PO SCH (09:06)
[2017-09-17] MEDS: Enoxaparin 40 mg Syringe SC SCH (09:06)
--- NOTE | 2017-09-17 12:06 | CP.PCM.PN ---
Subjective - Date & Time of Evaluation Date of Evaluation: 09/17/17 Time of Evaluation: 11:20 - Subjective Subjective: clinically same Objective - Vital Signs/Intake and Output Vital Signs (last 24 hours): Temp Pulse Resp BP Pulse Ox 97.8 F 71 20 110/76 100 09/17/17 07:05 09/17/17 07:05 09/17/17 07:05 09/17/17 07:05 09/17/17 07:05 Intake and Output: 09/17/17 09/17/17 06:59 18:59 Intake Total 800 Output Total 600 Balance 200 - Medications Medications: Current Medications Ascorbic Acid (Vitamin C 500 Mg Tab) 500 mg PO DAILY [facility] Last Admin: 09/17/17 09:07 Dose: 500 mg Cyanocobalamin (Vitamin B12 1000 Mcg Tab) 1,000 mcg PO DAILY [facility] Last Admin: 09/17/17 09:05 Dose: 1,000 mcg Diphenhydramine HCl (Benadryl) 25 mg IVP Q3 PRN PRN Reason: Itching / Pruritus Last Admin: 09/17/17 11:17 Dose: 25 mg Enoxaparin Sodium (Lovenox) 40 mg SC DAILY [facility] Last Admin: 09/17/17 09:06 Dose: 40 mg Hydromorphone HCl (Dilaudid) 2 mg IVP Q3 PRN PRN Reason: for pain Last Admin: 09/17/17 11:16 Dose: 2 mg Meropenem 1 gm/ Sodium (Chloride) 100 mls @ 100 mls/hr IVPB Q8 [facility] Last Admin: 09/17/17 05:45 Dose: 100 mls/hr Vancomycin/Sodium Chloride (Vancomycin 1 Gm/Ns 200 Ml) 1 gm in 200 mls @ 133 mls/hr IVPB Q24H [facility] Stop: 09/21/17 20:01 Last Admin: 09/16/17 19:42 Dose: 133 mls/hr Mesalamine (Delzicol) 800 mg PO TID [facility] Last Admin: 09/17/17 09:06 Dose: 800 mg Pantoprazole Sodium (Protonix Ec Tab) 40 mg PO DAILY [facility] Last Admin: 09/17/17 09:06 Dose: 40 mg Sucralfate (Carafate Tab) 1 gm PO BID [facility] Last Admin: 09/17/17 09:06 Dose: 1 gm - Labs Labs: 09/15/17 22:30 09/15/17 22:30 - Constitutional Appears: Well - Head Exam Head Exam: ATRAUMATIC, NORMAL INSPECTION, NORMOCEPHALIC - Eye Exam Eye Exam: EOMI, Normal appearance, PERRL Pupil Exam: NORMAL ACCOMODATION, PERRL - ENT Exam ENT Exam: Mucous Membranes Moist, Normal Exam - Neck Exam Neck Exam: Full ROM, Normal Inspection. absent: Lymphadenopathy - Respiratory Exam Respiratory Exam: Decreased Breath Sounds - Cardiovascular Exam Cardiovascular Exam: REGULAR RHYTHM, +S1, +S2 - GI/Abdominal Exam GI & Abdominal Exam: Soft, Diminished Bowel Sounds - Rectal Exam Rectal Exam: Deferred
--- NOTE | 2017-09-17 15:31 | PCM.SURG1 ---
Surgeon's Initial Post Op Note - Surgeon's Notes Surgeon: Enrique Franklin MD Typesetting Machine Operator/Tender: NONE Type of Anesthesia: Local Pre-Operative Diagnosis: Crohn's disease, abscess Operative Findings: US showed a patent left basilic vein Post-Operative Diagnosis: Crohn's disease, abscess Operation Performed: single lumen picc placement left basilic vein Specimen/Specimens Removed: none Estimated Blood Loss: EBL {In ML}: 2 Blood Products Given: N/A Drains Used: No Drains Post-Op Condition: Fair Date of Surgery/Procedure: 09/17/17 Time of Surgery/Procedure: 15:25
--- NOTE | 2017-09-17 20:26 | CP.PCM.PN ---
Subjective - Date & Time of Evaluation Date of Evaluation: 09/17/17 Time of Evaluation: 04:00 - Subjective Subjective: dictated Objective - Vital Signs/Intake and Output Vital Signs (last 24 hours): Temp Pulse Resp BP Pulse Ox 98 F 98 H 20 112/77 95 09/17/17 16:40 09/17/17 16:40 09/17/17 16:40 09/17/17 16:40 09/17/17 16:40 - Medications Medications: Current Medications Ascorbic Acid (Vitamin C 500 Mg Tab) 500 mg PO DAILY [facility] Last Admin: 09/17/17 09:07 Dose: 500 mg Cyanocobalamin (Vitamin B12 1000 Mcg Tab) 1,000 mcg PO DAILY [facility] Last Admin: 09/17/17 09:05 Dose: 1,000 mcg Diphenhydramine HCl (Benadryl) 25 mg IVP Q3 PRN PRN Reason: Itching / Pruritus Last Admin: 09/17/17 17:25 Dose: 25 mg Enoxaparin Sodium (Lovenox) 40 mg SC DAILY [facility] Last Admin: 09/17/17 09:06 Dose: 40 mg Hydromorphone HCl (Dilaudid) 2 mg IVP Q3 PRN PRN Reason: for pain Last Admin: 09/17/17 17:26 Dose: 2 mg Meropenem 1 gm/ Sodium (Chloride) 100 mls @ 100 mls/hr IVPB Q8 [facility] Last Admin: 09/17/17 13:39 Dose: 100 mls/hr Vancomycin/Sodium Chloride (Vancomycin 1 Gm/Ns 200 Ml) 1 gm in 200 mls @ 133 mls/hr IVPB Q24H [facility] Stop: 09/21/17 20:01 Last Admin: 09/16/17 19:42 Dose: 133 mls/hr Mesalamine (Delzicol) 800 mg PO TID [facility] Last Admin: 09/17/17 17:26 Dose: 800 mg Pantoprazole Sodium (Protonix Ec Tab) 40 mg PO DAILY [facility] Last Admin: 09/17/17 09:06 Dose: 40 mg Sucralfate (Carafate Tab) 1 gm PO BID [facility] Last Admin: 09/17/17 17:25 Dose: 1 gm - Labs Labs: 09/15/17 22:30 09/15/17 22:30
[2017-09-17] MEDS: Vancomycin 1 gm/NS 200 ml 1 GM/200 ML BAG IVPB SCH (20:29)
--- NOTE | 2017-09-18 00:56 | PN ---
DATE: SUBJECTIVE: The patient is having lot of pain. He is not able to even stand because of the abscess and drainage between his two buttocks in the perineal area and it is painful. He got a PICC line. His all lines have gone now and he cannot get antibiotics without the PICC line. The PICC line was inserted in left arm at this time. He will need IV antibiotics. PHYSICAL EXAMINATION: VITAL SIGNS: T-max is 98, pulse 98, blood pressure is 112/77, respirations are 20. HEENT: Head is atraumatic and normocephalic. NECK: Supple. LUNGS: Clear. No crackles or rales present. HEART: S1, S2 is regular. ABDOMEN: Soft, nontender. No guarding, no rigidity present. EXTREMITIES: Has no edema, clubbing or cyanosis. He has perineal abscess and cellulitis between the buttocks with excoriation of the skin. ASSESSMENT AND PLAN: Wound culture has been asked and Dr. Taylor has been called to evaluate it. The patient at this time is started on vancomycin and meropenem again and we will also put him on Bacid and we will follow. Santosh Daniel MD
[2017-09-18] MEDS: DiphenhydrAMINE 50 mg/ml Inj IVP PRN ×7 (02:35→21:07)
[2017-09-18] MEDS: Meropenem 1 GM in Sodium Chloride 0.9% 100 ML IVPB SCH ×3 (05:39→21:06)
[2017-09-18] MEDS: Lactobacillus Acidophilus 500 MU Cap PO SCH ×2 (09:23→18:06)
[2017-09-18] MEDS: Enoxaparin 40 mg Syringe SC SCH (09:23)
[2017-09-18] MEDS: Pantoprazole 40 mg EC Tab PO SCH (09:24)
[2017-09-18 10:25] LABS: BASO % 0.4 % (0.0-2.0); EOS # 0.6 K/uL (0.0-0.7); EOS % 4.9 % (0.0-4.0); HEMOGLOBIN 11.1 g/dL (12.0-18.0); LYMPH % 35.2 % (20.0-40.0); MEAN CORPUSCULAR HEMOGLOBIN 23.1 pg (27.0-31.0); MEAN PLATELET VOLUME 8.4 fL (7.2-11.7); MONO # 0.7 K/uL (0.0-0.8); MONO % 5.8 % (0.0-10.0); NEUT # 6.1 K/uL (1.8-7.0); NEUT % 53.7 % (50.0-75.0); RBC 4.82 Mil/uL (4.40-5.90); RED CELL DISTRIBUTION WIDTH 17.7 % (11.5-14.5); WHITE BLOOD COUNT 11.4 K/uL (4.8-10.8)
[2017-09-18 10:47] LABS: ALBUMIN 3.9 g/dL (3.5-5.0); ALT/SGPT 66 U/L (21-72); AST/SGOT 52 U/L (17-59); BLOOD UREA NITROGEN 8 mg/dL (9-20); CALCIUM 10.4 mg/dl (8.6-10.4); GFR AFRICAN-AMERICAN > 60; GFR NON-AFRICAN AMERICAN > 60; MAGNESIUM 1.5 mg/dL (1.6-2.3)
--- NOTE | 2017-09-18 11:54 | US ---
Date of procedure: 09/17/2017 Procedure: Ultrasound guidance for vascular access HISTORY: Infection requiring long-term IV antibiotics TECHNIQUE: Following informed consent and procedure time-out, the patient placed supine on the interventional table and the left arm prepped and draped in the usual sterile fashion. Ultrasound showed a patent and compressible basilic vein. After the skin was anesthetized with lidocaine, the basilic vein was accessed with micro micropuncture technique using ultrasound guidance. An image documenting ultrasound guidance for vascular access was permanently saved. IMPRESSION: Ultrasound guidance for vascular access for placement of PICC.
--- NOTE | 2017-09-18 11:55 | RAD ---
PROCEDURE: Date of procedure: 09/17/2017 Procedure: 1. Placement of a left arm PICC with ultrasound and fluoroscopic guidance, CPT 78552 2. PICC tip confirmation with spot radiograph and is in the superior vena cava Medications: 5cc 1 percent lidocaine Total Fluoro time: 4.7 seconds Radiation: 1.5 MGy EBL: 3 cc HISTORY: Infection requiring long-term IV antibiotics TECHNIQUE: Following informed consent and procedure time-out, the patient placed supine on the interventional table and the left arm prepped and draped in the usual sterile fashion. Ultrasound showed a patent and compressible left basilic vein. After the skin was anesthetized with lidocaine, the basilic vein was accessed with micro micropuncture technique using ultrasound guidance. A guidewire was then advanced under fluoroscopic guidance into the superior vena cava. An image documenting ultrasound guidance for vascular access was permanently saved. The length of a single-lumen 4 [place] PICC was trimmed to 42 cm and advanced through a peel-away sheath. The PICC was position with tip of PICC confirm a spot radiograph the superior vena cava. The PICC was secured to the patient's skin. The PICC was flushed. A biopatch and sterile dressing was applied. IMPRESSION: Placement of a single-lumen 4 [place] PICC left basilic vein trimmed to 42 cm. The tip of the PICC is confirmed with spot radiograph and is in the superior vena cava.
[2017-09-18] MEDS: Vancomycin 1 gm/NS 200 ml 1 GM/200 ML BAG IVPB SCH (19:51)
--- NOTE | 2017-09-18 21:57 | CP.PCM.PN ---
Subjective - Date & Time of Evaluation Date of Evaluation: 09/18/17 Time of Evaluation: 09:00 - Subjective Subjective: clinically same Objective - Vital Signs/Intake and Output Vital Signs (last 24 hours): Temp Pulse Resp BP Pulse Ox 99.1 F 110 H 20 109/77 98 09/18/17 16:54 09/18/17 16:54 09/18/17 16:54 09/18/17 16:54 09/18/17 16:54 - Medications Medications: Current Medications Ascorbic Acid (Vitamin C 500 Mg Tab) 500 mg PO DAILY [facility] Last Admin: 09/18/17 09:24 Dose: 500 mg Cyanocobalamin (Vitamin B12 1000 Mcg Tab) 1,000 mcg PO DAILY [facility] Last Admin: 09/18/17 09:23 Dose: 1,000 mcg Diphenhydramine HCl (Benadryl) 25 mg IVP Q3 PRN PRN Reason: Itching / Pruritus Last Admin: 09/18/17 21:07 Dose: 25 mg Enoxaparin Sodium (Lovenox) 40 mg SC DAILY [facility] Last Admin: 09/18/17 09:23 Dose: 40 mg Hydromorphone HCl (Dilaudid) 2 mg IVP Q3 PRN PRN Reason: for pain Last Admin: 09/18/17 21:07 Dose: 2 mg Meropenem 1 gm/ Sodium (Chloride) 100 mls @ 100 mls/hr IVPB Q8 [facility] Last Admin: 09/18/17 21:06 Dose: 100 mls/hr Vancomycin/Sodium Chloride (Vancomycin 1 Gm/Ns 200 Ml) 1 gm in 200 mls @ 133 mls/hr IVPB Q24H [facility] Stop: 09/21/17 20:01 Last Admin: 09/18/17 19:51 Dose: 133 mls/hr Lactobacillus Acidophilus (Bacid Acidophilus) 1 cap PO BID [facility] Last Admin: 09/18/17 18:06 Dose: 1 cap Mesalamine (Delzicol) 800 mg PO TID [facility] Last Admin: 09/18/17 18:06 Dose: 800 mg Pantoprazole Sodium (Protonix Ec Tab) 40 mg PO DAILY [facility] Last Admin: 09/18/17 09:24 Dose: 40 mg Sucralfate (Carafate Tab) 1 gm PO BID [facility] Last Admin: 09/18/17 18:06 Dose: 1 gm - Labs Labs: 09/18/17 10:08 09/18/17 10:08
[2017-09-19] MEDS: DiphenhydrAMINE 50 mg/ml Inj IVP PRN ×7 (00:10→21:31)
[2017-09-19] MEDS: Meropenem 1 GM in Sodium Chloride 0.9% 100 ML IVPB SCH ×3 (06:16→23:41)
[2017-09-19] MEDS: Pantoprazole 40 mg EC Tab PO SCH (09:50)
[2017-09-19] MEDS: Lactobacillus Acidophilus 500 MU Cap PO SCH ×2 (09:51→17:33)
[2017-09-19] MEDS: Enoxaparin 40 mg Syringe SC SCH (09:52)
--- NOTE | 2017-09-19 14:59 | CP.PCM.PN ---
Subjective - Date & Time of Evaluation Date of Evaluation: 09/19/17 Time of Evaluation: 09:00 - Subjective Subjective: clinically same Objective - Vital Signs/Intake and Output Vital Signs (last 24 hours): Temp Pulse Resp BP Pulse Ox 99.5 F 105 H 20 114/74 93 L 09/19/17 07:32 09/19/17 07:32 09/19/17 07:32 09/19/17 07:32 09/19/17 07:32 Intake and Output: 09/19/17 09/19/17 06:59 18:59 Intake Total 774 Balance 774 - Medications Medications: Current Medications Ascorbic Acid (Vitamin C 500 Mg Tab) 500 mg PO DAILY [facility] Last Admin: 09/19/17 09:51 Dose: 500 mg Cyanocobalamin (Vitamin B12 1000 Mcg Tab) 1,000 mcg PO DAILY [facility] Last Admin: 09/19/17 09:50 Dose: 1,000 mcg Diphenhydramine HCl (Benadryl) 25 mg IVP Q3 PRN PRN Reason: Itching / Pruritus Last Admin: 09/19/17 09:36 Dose: 25 mg Enoxaparin Sodium (Lovenox) 40 mg SC DAILY [facility] Last Admin: 09/19/17 09:52 Dose: 40 mg Hydromorphone HCl (Dilaudid) 2 mg IVP Q3 PRN PRN Reason: for pain Last Admin: 09/19/17 12:35 Dose: 2 mg Meropenem 1 gm/ Sodium (Chloride) 100 mls @ 100 mls/hr IVPB Q8 [facility] Last Admin: 09/19/17 14:00 Dose: 100 mls/hr Vancomycin/Sodium Chloride (Vancomycin 1 Gm/Ns 200 Ml) 1 gm in 200 mls @ 133 mls/hr IVPB Q24H [facility] Stop: 09/21/17 20:01 Last Admin: 09/18/17 19:51 Dose: 133 mls/hr Lactobacillus Acidophilus (Bacid Acidophilus) 1 cap PO BID [facility] Last Admin: 09/19/17 09:51 Dose: 1 cap Mesalamine (Delzicol) 800 mg PO TID [facility] Last Admin: 09/19/17 14:25 Dose: 800 mg Pantoprazole Sodium (Protonix Ec Tab) 40 mg PO DAILY [facility] Last Admin: 09/19/17 09:50 Dose: 40 mg Sucralfate (Carafate Tab) 1 gm PO BID [facility] Last Admin: 09/19/17 09:51 Dose: 1 gm - Labs Labs: 09/18/17 10:08 09/18/17 10:08 - Constitutional Appears: Well - Head Exam Head Exam: ATRAUMATIC, NORMAL INSPECTION, NORMOCEPHALIC - Eye Exam Eye Exam: EOMI, Normal appearance, PERRL Pupil Exam: NORMAL ACCOMODATION, PERRL - ENT Exam ENT Exam: Mucous Membranes Moist, Normal Exam - Neck Exam Neck Exam: Full ROM, Normal Inspection. absent: Lymphadenopathy - Respiratory Exam Respiratory Exam: Decreased Breath Sounds - Cardiovascular Exam Cardiovascular Exam: REGULAR RHYTHM, +S1, +S2 - GI/Abdominal Exam GI & Abdominal Exam: Soft, Diminished Bowel Sounds - Rectal Exam Rectal Exam: Deferred
[2017-09-19] MEDS: Vancomycin 1 gm/NS 200 ml 1 GM/200 ML BAG IVPB SCH (21:00)
[2017-09-20] MEDS: DiphenhydrAMINE 50 mg/ml Inj IVP PRN ×8 (00:37→22:13)
[2017-09-20] MEDS ORDERED: guaiFENesin DM 100 mg-10 mg/5 ml UD PO ONE (02:14)
[2017-09-20] MEDS: Meropenem 1 GM in Sodium Chloride 0.9% 100 ML IVPB SCH ×3 (06:46→21:30)
[2017-09-20] MEDS: Lactobacillus Acidophilus 500 MU Cap PO SCH ×2 (09:32→17:24)
[2017-09-20] MEDS: Pantoprazole 40 mg EC Tab PO SCH (09:34)
[2017-09-20] MEDS: Enoxaparin 40 mg Syringe SC SCH (09:35)
--- NOTE | 2017-09-20 17:57 | CP.PCM.PN ---
Subjective - Date & Time of Evaluation Date of Evaluation: 09/20/17 Time of Evaluation: 09:00 - Subjective Subjective: clinically same Objective - Vital Signs/Intake and Output Vital Signs (last 24 hours): Temp Pulse Resp BP Pulse Ox 99.2 F 106 H 16 106/72 95 09/20/17 16:29 09/20/17 16:29 09/20/17 16:29 09/20/17 16:29 09/20/17 16:29 Intake and Output: 09/20/17 09/20/17 06:59 18:59 Intake Total 550 450 Output Total 400 Balance 550 50 - Medications Medications: Current Medications Acetaminophen (Tylenol 325mg Tab) 650 mg PO Q6 PRN PRN Reason: fever 101.1 and above Last Admin: 09/19/17 16:05 Dose: 650 mg Ascorbic Acid (Vitamin C 500 Mg Tab) 500 mg PO DAILY [facility] Last Admin: 09/20/17 09:47 Dose: 500 mg Cyanocobalamin (Vitamin B12 1000 Mcg Tab) 1,000 mcg PO DAILY [facility] Last Admin: 09/20/17 09:34 Dose: 1,000 mcg Diphenhydramine HCl (Benadryl) 25 mg IVP Q3 PRN PRN Reason: Itching / Pruritus Last Admin: 09/20/17 15:50 Dose: 25 mg Enoxaparin Sodium (Lovenox) 40 mg SC DAILY [facility] Last Admin: 09/20/17 09:35 Dose: 40 mg Hydromorphone HCl (Dilaudid) 2 mg IVP Q3 PRN PRN Reason: for pain Last Admin: 09/20/17 15:52 Dose: 2 mg Meropenem 1 gm/ Sodium (Chloride) 100 mls @ 100 mls/hr IVPB Q8 [facility] Last Admin: 09/20/17 14:25 Dose: 100 mls/hr Vancomycin/Sodium Chloride (Vancomycin 1 Gm/Ns 200 Ml) 1 gm in 200 mls @ 133 mls/hr IVPB Q24H [facility] Stop: 09/21/17 20:01 Last Admin: 09/19/17 21:00 Dose: 133 mls/hr Lactobacillus Acidophilus (Bacid Acidophilus) 1 cap PO BID [facility] Last Admin: 09/20/17 17:24 Dose: 1 cap Mesalamine (Delzicol) 800 mg PO TID [facility] Last Admin: 09/20/17 17:24 Dose: 800 mg Pantoprazole Sodium (Protonix Ec Tab) 40 mg PO DAILY [facility] Last Admin: 09/20/17 09:34 Dose: 40 mg Sucralfate (Carafate Tab) 1 gm PO BID [facility] Last Admin: 09/20/17 17:24 Dose: 1 gm - Labs Labs: 09/18/17 10:08 09/18/17 10:08 - Constitutional Appears: Well - Head Exam Head Exam: ATRAUMATIC, NORMAL INSPECTION, NORMOCEPHALIC - Eye Exam Eye Exam: EOMI, Normal appearance, PERRL Pupil Exam: NORMAL ACCOMODATION, PERRL - ENT Exam ENT Exam: Mucous Membranes Moist, Normal Exam - Neck Exam Neck Exam: Full ROM, Normal Inspection. absent: Lymphadenopathy - Respiratory Exam Respiratory Exam: Decreased Breath Sounds - Cardiovascular Exam Cardiovascular Exam: REGULAR RHYTHM, +S1, +S2 - GI/Abdominal Exam GI & Abdominal Exam: Soft, Diminished Bowel Sounds - Rectal Exam Rectal Exam: Deferred
[2017-09-20] MEDS: Vancomycin 1 gm/NS 200 ml 1 GM/200 ML BAG IVPB SCH (19:40)
[2017-09-21] MEDS: DiphenhydrAMINE 50 mg/ml Inj IVP PRN ×7 (01:18→21:07)
[2017-09-21] MEDS: Meropenem 1 GM in Sodium Chloride 0.9% 100 ML IVPB SCH ×3 (05:03→21:07)
[2017-09-21 08:02] LABS: BASO % 0.6 % (0.0-2.0); EOS # 0.4 K/uL (0.0-0.7); EOS % 6.3 % (0.0-4.0); HEMOGLOBIN 9.9 g/dL (12.0-18.0); LYMPH # 2.3 K/uL (1.0-4.3); MEAN CELL VOLUME 71.6 fL (80.0-94.0); MEAN CORPUSCULAR HGB CONC 32.1 g/dL (33.0-37.0); MEAN PLATELET VOLUME 8.1 fL (7.2-11.7); MONO # 0.8 K/uL (0.0-0.8); MONO % 14.3 % (0.0-10.0); NEUT # 2.2 K/uL (1.8-7.0); NEUT % 38.8 % (50.0-75.0); NRBC % 0.1 % (0.0-2.0); RBC 4.33 Mil/uL (4.40-5.90); RED CELL DISTRIBUTION WIDTH 18.4 % (11.5-14.5); WHITE BLOOD COUNT 5.7 K/uL (4.8-10.8)
[2017-09-21 08:44] LABS: ALB/GLOB RATIO 1.1 (1.0-2.1); ALBUMIN 3.6 g/dL (3.5-5.0); ALT/SGPT 85 U/L (21-72); AST/SGOT 55 U/L (17-59); BLOOD UREA NITROGEN 4 mg/dL (9-20); GFR AFRICAN-AMERICAN > 60; GFR NON-AFRICAN AMERICAN > 60; MAGNESIUM 1.6 mg/dL (1.6-2.3)
[2017-09-21] MEDS: Pantoprazole 40 mg EC Tab PO SCH (09:09)
[2017-09-21] MEDS: Enoxaparin 40 mg Syringe SC SCH (09:09)
[2017-09-21] MEDS: Lactobacillus Acidophilus 500 MU Cap PO SCH ×2 (09:09→17:36)
--- NOTE | 2017-09-21 09:51 | CP.PCM.PN ---
Subjective - Date & Time of Evaluation Date of Evaluation: 09/21/17 Time of Evaluation: 13:40 - Subjective Subjective: PGY 2 Medicine Note- Dr. Barrett's service. Patient seen and examined. Patient feels down. Patient states that his 3 year old nephew recently from surgery complications secondary to Crohn' s disease. Patient states that his " friends" have been making fun of his for having a colostomy bag. Patient asked for a sleeping medication to help him sleep. Patient admits to loss of appetite, diarrhea and insomnia. He denies chest pain, dyspnea, subjective fevers or chills, nausea and vomiting at this time. Objective - Vital Signs/Intake and Output Vital Signs (last 24 hours): Temp Pulse Resp BP Pulse Ox 98.9 F 79 20 115/72 96 09/21/17 00:25 09/21/17 00:25 09/21/17 00:25 09/21/17 00:25 09/21/17 00:25 Intake and Output: 09/21/17 09/21/17 06:59 18:59 Intake Total 400 Balance 400 - Medications Medications: Current Medications Acetaminophen (Tylenol 325mg Tab) 650 mg PO Q6 PRN PRN Reason: fever 101.1 and above Last Admin: 09/19/17 16:05 Dose: 650 mg Ascorbic Acid (Vitamin C 500 Mg Tab) 500 mg PO DAILY [facility] Last Admin: 09/20/17 09:47 Dose: 500 mg Cyanocobalamin (Vitamin B12 1000 Mcg Tab) 1,000 mcg PO DAILY [facility] Last Admin: 09/21/17 09:09 Dose: 1,000 mcg Diphenhydramine HCl (Benadryl) 25 mg IVP Q3 PRN PRN Reason: Itching / Pruritus Last Admin: 09/21/17 07:56 Dose: 25 mg Enoxaparin Sodium (Lovenox) 40 mg SC DAILY [facility] Last Admin: 09/21/17 09:09 Dose: 40 mg Hydromorphone HCl (Dilaudid) 2 mg IVP Q3 PRN PRN Reason: for pain Last Admin: 09/21/17 07:59 Dose: 2 mg Meropenem 1 gm/ Sodium (Chloride) 100 mls @ 100 mls/hr IVPB Q8 [facility] Last Admin: 09/21/17 05:03 Dose: 100 mls/hr Vancomycin/Sodium Chloride (Vancomycin 1 Gm/Ns 200 Ml) 1 gm in 200 mls @ 133 mls/hr IVPB Q24H [facility] Stop: 09/21/17 20:01 Last Admin: 09/20/17 19:40 Dose: 133 mls/hr Lactobacillus Acidophilus (Bacid Acidophilus) 1 cap PO BID [facility] Last Admin: 09/21/17 09:09 Dose: 1 cap Mesalamine (Delzicol) 800 mg PO TID [facility] Last Admin: 09/21/17 09:09 Dose: 800 mg Pantoprazole Sodium (Protonix Ec Tab) 40 mg PO DAILY [facility] Last Admin: 09/21/17 09:09 Dose: 40 mg Sucralfate (Carafate Tab) 1 gm PO BID [facility] Last Admin: 09/21/17 09:09 Dose: 1 gm - Labs Labs: 09/21/17 07:34 09/21/17 07:34 - Constitutional Appears: Non-toxic, No Acute Distress - Head Exam Head Exam: ATRAUMATIC, NORMAL INSPECTION, NORMOCEPHALIC - Eye Exam Eye Exam: EOMI, Normal appearance, PERRL Pupil Exam: NORMAL ACCOMODATION - ENT Exam ENT Exam: Mucous Membranes Moist - Neck Exam Neck Exam: Full ROM - Respiratory Exam Respiratory Exam: NORMAL BREATHING PATTERN. absent: Wheezes - Cardiovascular Exam Cardiovascular Exam: +S1, +S2 - GI/Abdominal Exam GI & Abdominal Exam: Soft, Normal Bowel Sounds Additional comments: colostomy bag in place with yellow-brown semi-soft output - Exam Additional comments: perineal irritation in groin folds - Extremities Exam Extremities Exam: Full ROM - Back Exam Back Exam: Full ROM - Neurological Exam Neurological Exam: Alert, Awake, CN II-XII Intact, Oriented x3 - Psychiatric Exam Psychiatric exam: Depressed - Skin Skin Exam: Dry, Normal Color, Warm Assessment and Plan (1) Crohn disease Assessment & Plan: On Mesalamine Pain control Monitor BMs Diet management Outpatient GI follow up; Considerations for surgical management for abscesses if need be. Continue PPI and Carafate Cont to monitor Status: Chronic (2) Encounter for wound care Assessment & Plan: On antibiotics F/U ID recommendations Status: Acute (3) Depressed mood Assessment & Plan: Patient need not necessarily be on medication therapy at this time. Spoke at great length with patient about not relying on sleeping medication to drown out feelings. Medication therapy is not the answer. Talking helped patient open up. Patient would however benefit from counseling services and further directed psych management. F/U Psych recommendations Status: Acute (4) Prophylactic measure Assessment & Plan: Lovenox 40SC PPI 40 mg PO daily Status: Acute
--- NOTE | 2017-09-21 14:29 | CP.PCM.PN ---
Subjective - Date & Time of Evaluation Date of Evaluation: 09/21/17 Time of Evaluation: 02:35 - Subjective Subjective: dictated Objective - Vital Signs/Intake and Output Vital Signs (last 24 hours): Temp Pulse Resp BP Pulse Ox 98.4 F 101 H 20 109/74 98 09/21/17 09:00 09/21/17 09:00 09/21/17 09:00 09/21/17 09:00 09/21/17 09:00 Intake and Output: 09/21/17 09/21/17 06:59 18:59 Intake Total 400 300 Output Total 3 Balance 400 297 - Medications Medications: Current Medications Acetaminophen (Tylenol 325mg Tab) 650 mg PO Q6 PRN PRN Reason: fever 101.1 and above Last Admin: 09/19/17 16:05 Dose: 650 mg Ascorbic Acid (Vitamin C 500 Mg Tab) 500 mg PO DAILY [facility] Last Admin: 09/21/17 11:00 Dose: 500 mg Cyanocobalamin (Vitamin B12 1000 Mcg Tab) 1,000 mcg PO DAILY [facility] Last Admin: 09/21/17 09:09 Dose: 1,000 mcg Diphenhydramine HCl (Benadryl) 25 mg IVP Q3 PRN PRN Reason: Itching / Pruritus Last Admin: 09/21/17 14:17 Dose: 25 mg Enoxaparin Sodium (Lovenox) 40 mg SC DAILY [facility] Last Admin: 09/21/17 09:09 Dose: 40 mg Hydromorphone HCl (Dilaudid) 2 mg IVP Q3 PRN PRN Reason: for pain Last Admin: 09/21/17 14:19 Dose: 2 mg Meropenem 1 gm/ Sodium (Chloride) 100 mls @ 100 mls/hr IVPB Q8 [facility] Last Admin: 09/21/17 13:25 Dose: 100 mls/hr Amikacin Sulfate 500 mg/ (Sodium Chloride) 102 mls @ 100 mls/hr IVPB Q12H [facility] Lactobacillus Acidophilus (Bacid Acidophilus) 1 cap PO BID [facility] Last Admin: 09/21/17 09:09 Dose: 1 cap Mesalamine (Delzicol) 800 mg PO TID [facility] Last Admin: 09/21/17 13:29 Dose: 800 mg Pantoprazole Sodium (Protonix Ec Tab) 40 mg PO DAILY [facility] Last Admin: 09/21/17 09:09 Dose: 40 mg Sucralfate (Carafate Tab) 1 gm PO BID [facility] Last Admin: 09/21/17 09:09 Dose: 1 gm - Labs Labs: 09/21/17 07:34 09/21/17 07:34
--- NOTE | 2017-09-21 17:18 | PN ---
DATE: SUBJECTIVE: The patient had fever over the weekend and he says he is not able to sit even or stand because of the extensive excoriation in his perineal area extending to the back in between the buttocks. He is not healing. He also needs to have cleanliness, hence I ordered for him to have showers and he is on antibiotics. He was on vancomycin and meropenem. I have adjusted the antibiotic today. PHYSICAL EXAMINATION: VITAL SIGNS: T-max is 99.9 today, pulse of 106, blood pressure 106/72, respirations are 16. He is to be seen by Dr. Taylor as he may have a fistula and continues to have abscesses and if it is a fistula, then these abscesses will not clear up and that needs to be closed and if there are abscesses, they need to be drained, so we need help of Dr. Taylor. HEENT: Head is atraumatic. NECK: Supple. PICC line is in the left arm. LUNGS: Clear. No crackles or rales present. HEART: S1, S2 is regular. ABDOMEN: Soft. Has a colostomy bag present. The excoriation is extensive. Was seen with the presence of the nurse today and it is in very sensitive areas and it is not improving in spite of antibiotics. LABORATORY DATA: His white count today was 5.7, hemoglobin 9.9, hematocrit 31.0, platelet count is 305. ESR is 50. Sodium 133, potassium 3.6, chloride 96, creatinine 0.4. ASSESSMENT AND PLAN: The cultures revealed that he has Escherichia coli and Pseudomonas, so I have discontinued the vancomycin and added amikacin to meropenem and we will follow the recommendations of Surgery. He has Crohn's disease with multiple abscess, possible fistula as he is passing stool from the bottom and has nonhealing wounds and Crohn's disease. Santosh Daniel MD
--- NOTE | 2017-09-21 19:47 | CP.PCM.PN ---
Subjective - Date & Time of Evaluation Date of Evaluation: 09/21/17 Time of Evaluation: 09:00 - Subjective Subjective: clinically same Objective - Vital Signs/Intake and Output Vital Signs (last 24 hours): Temp Pulse Resp BP Pulse Ox 98.8 F 90 20 105/73 96 09/21/17 15:49 09/21/17 15:49 09/21/17 15:49 09/21/17 15:49 09/21/17 15:49 Intake and Output: 09/21/17 09/22/17 18:59 06:59 Intake Total 300 Output Total 3 Balance 297 - Medications Medications: Current Medications Acetaminophen (Tylenol 325mg Tab) 650 mg PO Q6 PRN PRN Reason: fever 101.1 and above Last Admin: 09/19/17 16:05 Dose: 650 mg Ascorbic Acid (Vitamin C 500 Mg Tab) 500 mg PO DAILY [facility] Last Admin: 09/21/17 11:00 Dose: 500 mg Cyanocobalamin (Vitamin B12 1000 Mcg Tab) 1,000 mcg PO DAILY [facility] Last Admin: 09/21/17 09:09 Dose: 1,000 mcg Diphenhydramine HCl (Benadryl) 25 mg IVP Q3 PRN PRN Reason: Itching / Pruritus Last Admin: 09/21/17 17:36 Dose: 25 mg Enoxaparin Sodium (Lovenox) 40 mg SC DAILY [facility] Last Admin: 09/21/17 09:09 Dose: 40 mg Hydromorphone HCl (Dilaudid) 2 mg IVP Q3 PRN PRN Reason: for pain Last Admin: 09/21/17 17:37 Dose: 2 mg Meropenem 1 gm/ Sodium (Chloride) 100 mls @ 100 mls/hr IVPB Q8 [facility] Last Admin: 09/21/17 13:25 Dose: 100 mls/hr Amikacin Sulfate 500 mg/ (Sodium Chloride) 102 mls @ 100 mls/hr IVPB Q12H [facility] Last Admin: 09/21/17 15:02 Dose: 100 mls/hr Lactobacillus Acidophilus (Bacid Acidophilus) 1 cap PO BID [facility] Last Admin: 09/21/17 17:36 Dose: 1 cap Mesalamine (Delzicol) 800 mg PO TID [facility] Last Admin: 09/21/17 17:37 Dose: 800 mg Pantoprazole Sodium (Protonix Ec Tab) 40 mg PO DAILY [facility] Last Admin: 09/21/17 09:09 Dose: 40 mg Sucralfate (Carafate Tab) 1 gm PO BID [facility] Last Admin: 09/21/17 17:36 Dose: 1 gm - Labs Labs: 09/21/17 07:34 09/21/17 07:34 - Constitutional Appears: Well - Head Exam Head Exam: ATRAUMATIC, NORMAL INSPECTION, NORMOCEPHALIC - Eye Exam Eye Exam: EOMI, Normal appearance, PERRL Pupil Exam: NORMAL ACCOMODATION, PERRL - ENT Exam ENT Exam: Mucous Membranes Moist, Normal Exam - Neck Exam Neck Exam: Full ROM, Normal Inspection. absent: Lymphadenopathy - Respiratory Exam Respiratory Exam: Decreased Breath Sounds - Cardiovascular Exam Cardiovascular Exam: REGULAR RHYTHM, +S1, +S2 - GI/Abdominal Exam GI & Abdominal Exam: Soft, Diminished Bowel Sounds - Rectal Exam Rectal Exam: Deferred
[2017-09-22] MEDS: DiphenhydrAMINE 50 mg/ml Inj IVP PRN ×8 (00:20→22:30)
[2017-09-22] MEDS: Meropenem 1 GM in Sodium Chloride 0.9% 100 ML IVPB SCH ×3 (05:34→22:34)
[2017-09-22] MEDS: Enoxaparin 40 mg Syringe SC SCH (09:42)
[2017-09-22] MEDS: Pantoprazole 40 mg EC Tab PO SCH (09:43)
[2017-09-22] MEDS: Lactobacillus Acidophilus 500 MU Cap PO SCH ×2 (09:43→17:48)
[2017-09-22 12:17] LABS: BASO % 0.5 % (0.0-2.0); EOS # 0.4 K/uL (0.0-0.7); EOS % 6.4 % (0.0-4.0); HEMOGLOBIN 11.1 g/dL (12.0-18.0); LYMPH # 2.5 K/uL (1.0-4.3); LYMPH % 36.1 % (20.0-40.0); MEAN CELL VOLUME 72.1 fL (80.0-94.0); MEAN CORPUSCULAR HEMOGLOBIN 23.7 pg (27.0-31.0); MEAN CORPUSCULAR HGB CONC 32.9 g/dL (33.0-37.0); MEAN PLATELET VOLUME 7.9 fL (7.2-11.7); MONO # 0.6 K/uL (0.0-0.8); MONO % 8.8 % (0.0-10.0); NEUT # 3.4 K/uL (1.8-7.0); NEUT % 48.2 % (50.0-75.0); NRBC % 0.2 % (0.0-2.0); RBC 4.66 Mil/uL (4.40-5.90); RED CELL DISTRIBUTION WIDTH 17.9 % (11.5-14.5)
[2017-09-22 12:51] LABS: ALB/GLOB RATIO 0.9 (1.0-2.1); ALBUMIN 3.7 g/dL (3.5-5.0); ALT/SGPT 70 U/L (21-72); AST/SGOT 70 U/L (17-59); BLOOD UREA NITROGEN 4 mg/dL (9-20); CALCIUM 8.7 mg/dl (8.6-10.4); GFR AFRICAN-AMERICAN > 60; GFR NON-AFRICAN AMERICAN > 60; MAGNESIUM 1.5 mg/dL (1.6-2.3)
--- NOTE | 2017-09-22 14:11 | CP.PCM.PN ---
Subjective - Date & Time of Evaluation Date of Evaluation: 09/22/17 Time of Evaluation: 01:45 - Subjective Subjective: dictated Objective - Vital Signs/Intake and Output Vital Signs (last 24 hours): Temp Pulse Resp BP Pulse Ox 98.7 F 85 20 104/65 94 L 09/22/17 07:05 09/22/17 07:05 09/22/17 07:05 09/22/17 07:05 09/22/17 07:05 - Medications Medications: Current Medications Acetaminophen (Tylenol 325mg Tab) 650 mg PO Q6 PRN PRN Reason: fever 101.1 and above Last Admin: 09/19/17 16:05 Dose: 650 mg Ascorbic Acid (Vitamin C 500 Mg Tab) 500 mg PO DAILY [facility] Last Admin: 09/22/17 09:44 Dose: 500 mg Cyanocobalamin (Vitamin B12 1000 Mcg Tab) 1,000 mcg PO DAILY [facility] Last Admin: 09/22/17 09:43 Dose: 1,000 mcg Diphenhydramine HCl (Benadryl) 25 mg IVP Q3 PRN PRN Reason: Itching / Pruritus Last Admin: 09/22/17 12:57 Dose: 25 mg Enoxaparin Sodium (Lovenox) 40 mg SC DAILY [facility] Last Admin: 09/22/17 09:42 Dose: 40 mg Hydromorphone HCl (Dilaudid) 2 mg IVP Q3 PRN PRN Reason: for pain Last Admin: 09/22/17 12:59 Dose: 2 mg Meropenem 1 gm/ Sodium (Chloride) 100 mls @ 100 mls/hr IVPB Q8 [facility] Last Admin: 09/22/17 13:31 Dose: 100 mls/hr Amikacin Sulfate 500 mg/ (Sodium Chloride) 102 mls @ 100 mls/hr IVPB Q12H [facility] Last Admin: 09/22/17 02:22 Dose: 100 mls/hr Lactobacillus Acidophilus (Bacid Acidophilus) 1 cap PO BID [facility] Last Admin: 09/22/17 09:43 Dose: 1 cap Mesalamine (Delzicol) 800 mg PO TID [facility] Last Admin: 09/22/17 09:43 Dose: 800 mg Pantoprazole Sodium (Protonix Ec Tab) 40 mg PO DAILY [facility] Last Admin: 09/22/17 09:43 Dose: 40 mg Quetiapine Fumarate (Seroquel) 50 mg PO HS [facility] Sucralfate (Carafate Tab) 1 gm PO BID [facility] Last Admin: 09/22/17 09:43 Dose: 1 gm - Labs Labs: 09/22/17 12:03 09/22/17 12:03
[2017-09-22] MEDS: Zinc Oxide Topical 30 gm Tube TOP SCH (17:48)
--- NOTE | 2017-09-22 21:12 | CP.PCM.PN ---
Subjective - Date & Time of Evaluation Date of Evaluation: 09/22/17 Time of Evaluation: 07:22 - Subjective Subjective: Medicine Progress Note- Dr. Barrett's service Pt seen and examined in no apparent acute distress. Patient waiting to speak with someone regarding grief. Patient denies other complaints at this time. Objective - Vital Signs/Intake and Output Vital Signs (last 24 hours): Temp Pulse Resp BP Pulse Ox 99.3 F 109 H 20 135/89 96 09/22/17 15:35 09/22/17 15:35 09/22/17 15:35 09/22/17 15:35 09/22/17 15:35 Intake and Output: 09/22/17 09/23/17 18:59 06:59 Intake Total 350 Balance 350 - Medications Medications: Current Medications Acetaminophen (Tylenol 325mg Tab) 650 mg PO Q6 PRN PRN Reason: fever 101.1 and above Last Admin: 09/19/17 16:05 Dose: 650 mg Ascorbic Acid (Vitamin C 500 Mg Tab) 500 mg PO DAILY [facility] Last Admin: 09/22/17 09:44 Dose: 500 mg Cyanocobalamin (Vitamin B12 1000 Mcg Tab) 1,000 mcg PO DAILY [facility] Last Admin: 09/22/17 09:43 Dose: 1,000 mcg Diphenhydramine HCl (Benadryl) 25 mg IVP Q3 PRN PRN Reason: Itching / Pruritus Last Admin: 09/22/17 19:26 Dose: 25 mg Enoxaparin Sodium (Lovenox) 40 mg SC DAILY [facility] Last Admin: 09/22/17 09:42 Dose: 40 mg Hydromorphone HCl (Dilaudid) 2 mg IVP Q3 PRN PRN Reason: for pain Last Admin: 09/22/17 19:26 Dose: 2 mg Meropenem 1 gm/ Sodium (Chloride) 100 mls @ 100 mls/hr IVPB Q8 [facility] Last Admin: 09/22/17 13:31 Dose: 100 mls/hr Amikacin Sulfate 500 mg/ (Sodium Chloride) 102 mls @ 100 mls/hr IVPB Q12H [facility] Last Admin: 09/22/17 15:09 Dose: 100 mls/hr Lactobacillus Acidophilus (Bacid Acidophilus) 1 cap PO BID [facility] Last Admin: 09/22/17 17:48 Dose: 1 cap Mesalamine (Delzicol) 800 mg PO TID [facility] Last Admin: 09/22/17 17:48 Dose: 800 mg Pantoprazole Sodium (Protonix Ec Tab) 40 mg PO DAILY [facility] Last Admin: 09/22/17 09:43 Dose: 40 mg Petrolatum (Desitin Original) 0 gm TOP BID [facility] Last Admin: 09/22/17 17:48 Dose: 1 applic Quetiapine Fumarate (Seroquel) 50 mg PO HS [facility] Sucralfate (Carafate Tab) 1 gm PO BID [facility] Last Admin: 09/22/17 17:48 Dose: 1 gm - Labs Labs: 09/22/17 12:03 09/22/17 12:03 - Constitutional Appears: Non-toxic, No Acute Distress - Head Exam Head Exam: ATRAUMATIC, NORMAL INSPECTION - Eye Exam Eye Exam: EOMI, Normal appearance, PERRL Pupil Exam: NORMAL ACCOMODATION - ENT Exam ENT Exam: Mucous Membranes Moist - Neck Exam Neck Exam: Full ROM - Cardiovascular Exam Cardiovascular Exam: +S1, +S2 - GI/Abdominal Exam GI & Abdominal Exam: Soft, Normal Bowel Sounds Additional comments: colostomy site with noted bowel contents - Extremities Exam Extremities Exam: Normal Capillary Refill - Back Exam Back Exam: Full ROM - Neurological Exam Neurological Exam: Alert, Awake, Oriented x3 - Psychiatric Exam Psychiatric exam: Normal Affect, Normal Mood - Skin Skin Exam: Dry, Normal Color, Warm Assessment and Plan (1) Crohn disease Status: Chronic (2) Encounter for wound care Status: Acute (3) Depressed mood Status: Acute (4) Prophylactic measure Status: Acute - Assessment and Plan (Free Text) Assessment: Assessment and Plan Crohn disease Assessment & Plan: On Mesalamine Pain control Monitor BMs Diet management Outpatient GI follow up; Considerations for surgical management for abscesses if need be. Continue PPI and Carafate Cont to monitor Status: Chronic Positive blood cultures Assessment & Plan: Afebrile, no leukocytosis, no left shift, no bandemia Repeat blood cultures- may be contaminant Antibiotics may be adjusted per ID. F/U ID recommendations Encounter for wound care Assessment & Plan: On antibiotics- May be adjusted per ID F/U ID recommendations Status: Acute Depressed mood Assessment & Plan: Patient need not necessarily be on medication therapy at this time. Spoke at great length with patient about not relying on sleeping medication to drown out feelings. Medication therapy is not the answer. Talking helped patient open up. Patient would however benefit from counseling services and further directed psych management. F/U Psych recommendations Status: Acute Prophylactic measure Assessment & Plan: Lovenox 40SC PPI 40 mg PO daily Status: Acute Discussed with attending. Management and planning per Dr. Isabel.
--- NOTE | 2017-09-23 00:14 | PCM.PSYCH ---
Initial Psychiatric Evaluation - Initial Psychiatric Evaluation Type of Admission: Voluntary Legal Status: Capacity Chief Complaint (in patient's own words): "I can't sleep" History of Present Illness and Precipitating Events: The patient seen, chart reviewed and case discussed. Consultation is requested for patient's depression. He is well-known to the database report writer from previous admissions. This is a 22-year-old [place] male, single, unemployed, living with his mother and sister. The patient has Crohn's disease and he has been hospitalized many times back-to- back. He claims he is somewhat depressed because of coming back to the hospital again , and pain. However he states he is again better than before and that he was not suicidal. Not on lexapro but asks for a sleep pill He is sad bc of losing his niece who had chron's dz and during an operation. He has no manic or psychotic symptoms. Past psych history: No admissions but used antidepressants on and off. No suicide attempts Family psych history: Denies Medical history: Crohn's disease Current Medications: Active Medications Generic Name Dose Route Start Last Admin Trade Name Adalbertoq PRN Reason Stop Dose Admin Acetaminophen 650 mg 09/19/17 15:51 09/19/17 16:05 Tylenol 325mg Tab PO 650 mg Q6 PRN Administration fever 101.1 and above Ascorbic Acid 500 mg 09/16/17 10:00 09/22/17 09:44 Vitamin C 500 Mg Tab PO 500 mg DAILY [facility] Administration Cyanocobalamin 1,000 mcg 09/16/17 10:00 09/22/17 09:43 Vitamin B12 1000 Mcg Tab PO 1,000 mcg DAILY [facility] Administration Diphenhydramine HCl 25 mg 09/16/17 02:54 09/22/17 22:30 Benadryl IVP 25 mg Q3 PRN Administration Itching / Pruritus Enoxaparin Sodium 40 mg 09/16/17 10:00 09/22/17 09:42 Lovenox SC 40 mg DAILY [facility] Administration Hydromorphone HCl 2 mg 09/16/17 02:54 09/22/17 22:31 Dilaudid IVP 2 mg Q3 PRN Administration for pain Meropenem 1 gm/ Sodium 100 mls @ 100 mls/hr 09/16/17 22:00 09/22/17 22:34 Chloride IVPB 100 mls/hr Q8 [facility] Administration Amikacin Sulfate 500 mg/ 102 mls @ 100 mls/hr 09/21/17 15:00 09/22/17 15:09 Sodium Chloride IVPB 100 mls/hr Q12H [facility] Administration Vancomycin/Sodium Chloride 1 gm in 200 mls @ 133 mls/hr 09/22/17 23:00 Vancomycin 1 Gm/Ns 200 Ml IVPB 09/27/17 23:01 Q24H [facility] Lactobacillus Acidophilus 1 cap 09/18/17 10:00 09/22/17 17:48 Bacid Acidophilus PO 1 cap BID [facility] Administration Mesalamine 800 mg 09/16/17 18:00 09/22/17 17:48 Delzicol PO 800 mg TID [facility] Administration Pantoprazole Sodium 40 mg 09/16/17 10:00 09/22/17 09:43 Protonix Ec Tab PO 40 mg DAILY [facility] Administration Petrolatum 0 gm 09/22/17 18:00 09/22/17 17:48 Desitin Original TOP 1 applic BID [facility] Administration Quetiapine Fumarate 50 mg 09/22/17 22:00 09/22/17 22:30 Seroquel PO 50 mg HS [facility] Administration Sucralfate 1 gm 09/16/17 18:00 09/22/17 17:48 Carafate Tab PO 1 gm BID [facility] Administration Past Psychiatric History - Past Psychiatric History Previous Treatment History: Intensive Outpatient Pertinent Medical Hx (Current Medical&Sleep Prob, Allergies): Allergies Allergy/AdvReac Type Severity Reaction Status Date / Time morphine Allergy Severe ITCHING Verified 09/15/17 20:35 Ascorbic Acid [Vitamin C 500 mg Tab] 500 mg PO DAILY #30 tab 05/06/17 Cyanocobalamin [Vitamin B12 1000 mcg Tab] 1,000 mcg PO DAILY tab 05/06/17 Mesalamine [Asacol HD 800mg] 1,600 mg PO TID 09/16/17 Sucralfate [Carafate Tab] 1 gm PO BID 09/16/17 Review of Systems - Psychiatric Psychiatric: Abnormal Sleep Pattern, Anxiety, Difficulty Concentrating. absent : Hallucinations, Homicidal Ideation, Irritability, Memory Loss, Paranoia, Suicidal Ideation Mental Status Examination - Personal Presentation Personal Presentation: Looks stated age - Affect Affect: Constricted - Motor Activity Motor Activity: Calm - Reliability in Providing Information Reliability in Providing Information: Good - Speech Speech: Organized - Mood Mood: Anxious - Formal Thought Process Formal Thought Process: No Impairment - Cognitive Functions Orientation: Person, Place, Situation, Time Sensorium: Alert Attention/Concentration: Attentive Estimate of Intelligence: Below average Judgement: Intact, as evidence by: Insight regarding need for hospitalization Memory: Recent imparied as evidence by:Inability to complete 3/3 object recall, Remote impaired as evidenced by: Inability to recall sig life events - Risk Risk: Other - Strength & Assets Inventory Strength & Assets Inventory: Cooperative - Limitations Limitations: Living alone DSM 5 DX - DSM 5 DSM 5 Diagnosis: Major depression, moderate PRASANNA - Recommended/Plan of Treatment Treatment Recommendations and Plan of Treatment: Continue medications Seroquel for insomnia See wire transfer clerk Support and psychoeducation daily Attend groups and activities daily After care planning by ESTHER 33 min Projected ELOS: 5 days - Smoking Cessation Smoking Cessation Initiated: Yes
[2017-09-23] MEDS: Vancomycin 1 gm/NS 200 ml 1 GM/200 ML BAG IVPB SCH ×2 (00:50→22:42)
[2017-09-23] MEDS: DiphenhydrAMINE 50 mg/ml Inj IVP PRN ×8 (01:36→22:38)
--- NOTE | 2017-09-23 02:46 | PN ---
DATE: SUBJECTIVE: The patient continues to have a lot of pain and excoriation. I tried to call the staffing associate at the pharmacy and they do not have much of soothing agents for the skin. We will try Desitin. He is still waiting to be seen by the surgeon. He has a fistula. It can be fixed and that would take away a lot of problems. PHYSICAL EXAMINATION: VITAL SIGNS: T-max is 99.3, pulse of 109, blood pressure 135/89, respirations are 20. He has a PICC line in the left arm. It is functioning well. HEENT: Head is atraumatic. NECK: Supple. LUNGS: Clear. HEART: S1, S2 is regular. ABDOMEN: He has a colostomy bag. He continuous to have pain in the perineum area as well as in between his buttocks and he says he cannot even walk or stand because of the pain. ASSESSMENT AND PLAN: So, we will continue the antibiotics. He is on Pseudomonas coverage as the culture had, but today, his blood cultures through the center line came out to be GPCs, which is another problem and grew coagulase negative staph. This was a culture, which was done on 09/22/2017; which creates a problem as he came with negative cultures and he has a PICC line. We will add the vancomycin back and repeat blood cultures again through the line with the vancomycin on and this line is new and was recently placed, but he did have a fever over the weekend; so, it could be real, though we will repeat the cultures at this time and we will follow. Santosh Daniel MD
[2017-09-23] MEDS: Meropenem 1 GM in Sodium Chloride 0.9% 100 ML IVPB SCH ×3 (05:42→21:39)
[2017-09-23 07:31] LABS: BASO % 0.5 % (0.0-2.0); EOS # 0.4 K/uL (0.0-0.7); EOS % 7.5 % (0.0-4.0); HEMOGLOBIN 10.6 g/dL (12.0-18.0); LYMPH # 3.1 K/uL (1.0-4.3); LYMPH % 54.8 % (20.0-40.0); MEAN CELL VOLUME 71.3 fL (80.0-94.0); MEAN CORPUSCULAR HEMOGLOBIN 23.6 pg (27.0-31.0); MEAN CORPUSCULAR HGB CONC 33.1 g/dL (33.0-37.0); MONO # 0.4 K/uL (0.0-0.8); MONO % 7.8 % (0.0-10.0); NEUT # 1.6 K/uL (1.8-7.0); NEUT % 29.4 % (50.0-75.0); NRBC % 0.3 % (0.0-2.0); RBC 4.47 Mil/uL (4.40-5.90); WHITE BLOOD COUNT 5.6 K/uL (4.8-10.8)
[2017-09-23 07:56] LABS: ALB/GLOB RATIO 0.9 (1.0-2.1); ALBUMIN 3.6 g/dL (3.5-5.0); ALT/SGPT 67 U/L (21-72); AST/SGOT 50 U/L (17-59); BLOOD UREA NITROGEN 4 mg/dL (9-20); CALCIUM 8.3 mg/dl (8.6-10.4); GFR AFRICAN-AMERICAN > 60; GFR NON-AFRICAN AMERICAN > 60; MAGNESIUM 1.6 mg/dL (1.6-2.3)
[2017-09-23] MEDS: Enoxaparin 40 mg Syringe SC SCH (09:08)
[2017-09-23] MEDS: Lactobacillus Acidophilus 500 MU Cap PO SCH ×2 (09:08→17:50)
[2017-09-23] MEDS: Pantoprazole 40 mg EC Tab PO SCH (09:08)
[2017-09-23] MEDS: Zinc Oxide Topical 30 gm Tube TOP SCH ×2 (09:09→17:50)
--- NOTE | 2017-09-23 14:54 | CP.PCM.PN ---
Subjective - Date & Time of Evaluation Date of Evaluation: 09/23/17 Time of Evaluation: 14:48 - Subjective Subjective: PGY2 progress note for Dr. Barrett Pt seen and examined at bedside this am. Patient is complaining of pain at site of anal fistula. He states that pain is worsening. Denies having any abd pain currently. Denies having any N/V/D/C, F/C, CP, SOB. Pt tolerating diet. Colostomy bag in place draining stool. Objective - Vital Signs/Intake and Output Vital Signs (last 24 hours): Temp Pulse Resp BP Pulse Ox 98.2 F 80 20 106/73 100 09/23/17 07:05 09/23/17 07:05 09/23/17 07:05 09/22/17 23:25 09/23/17 07:05 Intake and Output: 09/23/17 09/23/17 06:59 18:59 Intake Total 600 Output Total 2650 Balance -2049 - Medications Medications: Current Medications Acetaminophen (Tylenol 325mg Tab) 650 mg PO Q6 PRN PRN Reason: fever 101.1 and above Last Admin: 09/19/17 16:05 Dose: 650 mg Ascorbic Acid (Vitamin C 500 Mg Tab) 500 mg PO DAILY [facility] Last Admin: 09/23/17 09:09 Dose: 500 mg Cyanocobalamin (Vitamin B12 1000 Mcg Tab) 1,000 mcg PO DAILY [facility] Last Admin: 09/23/17 09:08 Dose: 1,000 mcg Diphenhydramine HCl (Benadryl) 25 mg IVP Q3 PRN PRN Reason: Itching / Pruritus Last Admin: 09/23/17 13:39 Dose: 25 mg Hydromorphone HCl (Dilaudid) 2 mg IVP Q3 PRN PRN Reason: for pain Last Admin: 09/23/17 13:40 Dose: 2 mg Meropenem 1 gm/ Sodium (Chloride) 100 mls @ 100 mls/hr IVPB Q8 [facility] Last Admin: 09/23/17 13:10 Dose: 100 mls/hr Amikacin Sulfate 500 mg/ (Sodium Chloride) 102 mls @ 100 mls/hr IVPB Q12H [facility] Last Admin: 09/23/17 03:51 Dose: 100 mls/hr Vancomycin/Sodium Chloride (Vancomycin 1 Gm/Ns 200 Ml) 1 gm in 200 mls @ 133 mls/hr IVPB Q24H [facility] Stop: 09/27/17 23:01 Last Admin: 09/23/17 00:50 Dose: 133 mls/hr Lactobacillus Acidophilus (Bacid Acidophilus) 1 cap PO BID [facility] Last Admin: 09/23/17 09:08 Dose: 1 cap Mesalamine (Delzicol) 800 mg PO TID [facility] Last Admin: 09/23/17 13:11 Dose: 800 mg Pantoprazole Sodium (Protonix Ec Tab) 40 mg PO DAILY [facility] Last Admin: 09/23/17 09:08 Dose: 40 mg Petrolatum (Desitin Original) 0 gm TOP BID [facility] Last Admin: 09/23/17 09:09 Dose: 1 applic Quetiapine Fumarate (Seroquel) 50 mg PO HS [facility] Last Admin: 09/22/17 22:30 Dose: 50 mg Sucralfate (Carafate Tab) 1 gm PO BID [facility] Last Admin: 09/23/17 09:09 Dose: 1 gm - Labs Labs: 09/23/17 06:55 09/23/17 06:55 - Constitutional Appears: Non-toxic, No Acute Distress - Head Exam Head Exam: ATRAUMATIC - ENT Exam ENT Exam: Mucous Membranes Moist - Respiratory Exam Respiratory Exam: Clear to Ausculation Bilateral. absent: Accessory Muscle Use , Rales, Rhonchi, Wheezes, Respiratory Distress - Cardiovascular Exam Cardiovascular Exam: REGULAR RHYTHM, +S1, +S2. absent: Gallop, Rubs, Murmur - GI/Abdominal Exam GI & Abdominal Exam: Soft, Normal Bowel Sounds. absent: Distended, Firm, Guarding, Rigid, Tenderness, Organomegaly - Extremities Exam Extremities Exam: absent: Pedal Edema, Tenderness - Neurological Exam Neurological Exam: Alert, Awake, Oriented x3 - Psychiatric Exam Psychiatric exam: Normal Affect, Normal Mood - Skin Skin Exam: Warm Additional comments: erythema around perineal and anal region Assessment and Plan - Assessment and Plan (Free Text) Assessment: Crohn disease On Mesalamine Pain control Diet management Outpatient GI follow up to continue remicade treatment Continue PPI and Carafate Cont to monitor Positive blood cultures Afebrile, no leukocytosis, no left shift, no bandemia Initial cultures were negative. Repeat cultures on 09/19/17 done through the PICC line were positive for gram positive cocci Patient started on vancomycin per ID Currently on Amikacin, meropenem, and vancomycin. 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 Taylor consulted. recommends outpt follow up Depressed mood Patient need not necessarily be on medication therapy at this time. Spoke at great length with patient about not relying on sleeping medication to drown out feelings. Medication therapy is not the answer. Talking helped patient open up. Patient would however benefit from counseling services and further directed psych management. Psych consulted. Started pt on Seroquel. awaiting further recs Prophylactic measure Lovenox 40SC PPI 40 mg PO daily, carafate Discussed with attending. Management and planning per Dr. Barrett
--- NOTE | 2017-09-23 18:33 | CP.PCM.PN ---
Subjective - Date & Time of Evaluation Date of Evaluation: 09/23/17 Time of Evaluation: 09:20 - Subjective Subjective: clinically same Objective - Vital Signs/Intake and Output Vital Signs (last 24 hours): Temp Pulse Resp BP Pulse Ox 98.0 F 99 H 20 100/65 100 09/23/17 16:23 09/23/17 16:23 09/23/17 16:23 09/23/17 16:23 09/23/17 16:23 Intake and Output: 09/23/17 09/23/17 06:59 18:59 Intake Total 600 300 Output Total 2650 Balance -205 300 - Medications Medications: Current Medications Acetaminophen (Tylenol 325mg Tab) 650 mg PO Q6 PRN PRN Reason: fever 101.1 and above Last Admin: 09/19/17 16:05 Dose: 650 mg Ascorbic Acid (Vitamin C 500 Mg Tab) 500 mg PO DAILY [facility] Last Admin: 09/23/17 09:09 Dose: 500 mg Cyanocobalamin (Vitamin B12 1000 Mcg Tab) 1,000 mcg PO DAILY [facility] Last Admin: 09/23/17 09:08 Dose: 1,000 mcg Diphenhydramine HCl (Benadryl) 25 mg IVP Q3 PRN PRN Reason: Itching / Pruritus Last Admin: 09/23/17 16:39 Dose: 25 mg Hydromorphone HCl (Dilaudid) 2 mg IVP Q3 PRN PRN Reason: Pain, moderate (4-7) Meropenem 1 gm/ Sodium (Chloride) 100 mls @ 100 mls/hr IVPB Q8 [facility] Last Admin: 09/23/17 13:10 Dose: 100 mls/hr Amikacin Sulfate 500 mg/ (Sodium Chloride) 102 mls @ 100 mls/hr IVPB Q12H [facility] Last Admin: 09/23/17 14:55 Dose: 100 mls/hr Vancomycin/Sodium Chloride (Vancomycin 1 Gm/Ns 200 Ml) 1 gm in 200 mls @ 133 mls/hr IVPB Q24H [facility] Stop: 09/27/17 23:01 Last Admin: 09/23/17 00:50 Dose: 133 mls/hr Lactobacillus Acidophilus (Bacid Acidophilus) 1 cap PO BID [facility] Last Admin: 09/23/17 17:50 Dose: 1 cap Mesalamine (Delzicol) 800 mg PO TID [facility] Last Admin: 09/23/17 17:50 Dose: 800 mg Pantoprazole Sodium (Protonix Ec Tab) 40 mg PO DAILY [facility] Last Admin: 09/23/17 09:08 Dose: 40 mg Petrolatum (Desitin Original) 0 gm TOP BID [facility] Last Admin: 09/23/17 17:50 Dose: 1 applic Quetiapine Fumarate (Seroquel) 50 mg PO HS [facility] Last Admin: 09/22/17 22:30 Dose: 50 mg Sucralfate (Carafate Tab) 1 gm PO BID [facility] Last Admin: 09/23/17 17:50 Dose: 1 gm - Labs Labs: 09/23/17 06:55 09/23/17 06:55 - Constitutional Appears: Well - Head Exam Head Exam: ATRAUMATIC, NORMAL INSPECTION, NORMOCEPHALIC - Eye Exam Eye Exam: EOMI, Normal appearance, PERRL Pupil Exam: NORMAL ACCOMODATION, PERRL - ENT Exam ENT Exam: Mucous Membranes Moist, Normal Exam - Neck Exam Neck Exam: Full ROM, Normal Inspection. absent: Lymphadenopathy - Respiratory Exam Respiratory Exam: Decreased Breath Sounds - Cardiovascular Exam Cardiovascular Exam: REGULAR RHYTHM, +S1, +S2 - GI/Abdominal Exam GI & Abdominal Exam: Soft, Diminished Bowel Sounds - Rectal Exam Rectal Exam: Deferred
--- NOTE | 2017-09-23 22:37 | CP.PCM.PN ---
Subjective - Date & Time of Evaluation Date of Evaluation: 09/23/17 Time of Evaluation: 02:45 - Subjective Subjective: dictated Objective - Vital Signs/Intake and Output Vital Signs (last 24 hours): Temp Pulse Resp BP Pulse Ox 98.0 F 99 H 20 100/65 100 09/23/17 16:23 09/23/17 16:23 09/23/17 16:23 09/23/17 16:23 09/23/17 16:23 Intake and Output: 09/23/17 09/24/17 18:59 06:59 Intake Total 300 Output Total 1100 Balance 300 -1100 - Medications Medications: Current Medications Acetaminophen (Tylenol 325mg Tab) 650 mg PO Q6 PRN PRN Reason: fever 101.1 and above Last Admin: 09/19/17 16:05 Dose: 650 mg Ascorbic Acid (Vitamin C 500 Mg Tab) 500 mg PO DAILY [facility] Last Admin: 09/23/17 09:09 Dose: 500 mg Cyanocobalamin (Vitamin B12 1000 Mcg Tab) 1,000 mcg PO DAILY [facility] Last Admin: 09/23/17 09:08 Dose: 1,000 mcg Diphenhydramine HCl (Benadryl) 25 mg IVP Q3 PRN PRN Reason: Itching / Pruritus Last Admin: 09/23/17 19:42 Dose: 25 mg Hydromorphone HCl (Dilaudid) 2 mg IVP Q3 PRN PRN Reason: Pain, moderate (4-7) Last Admin: 09/23/17 19:42 Dose: 2 mg Meropenem 1 gm/ Sodium (Chloride) 100 mls @ 100 mls/hr IVPB Q8 [facility] Last Admin: 09/23/17 21:39 Dose: 100 mls/hr Amikacin Sulfate 500 mg/ (Sodium Chloride) 102 mls @ 100 mls/hr IVPB Q12H [facility] Last Admin: 09/23/17 14:55 Dose: 100 mls/hr Vancomycin/Sodium Chloride (Vancomycin 1 Gm/Ns 200 Ml) 1 gm in 200 mls @ 133 mls/hr IVPB Q24H [facility] Stop: 09/27/17 23:01 Last Admin: 09/23/17 00:50 Dose: 133 mls/hr Lactobacillus Acidophilus (Bacid Acidophilus) 1 cap PO BID [facility] Last Admin: 09/23/17 17:50 Dose: 1 cap Mesalamine (Delzicol) 800 mg PO TID [facility] Last Admin: 09/23/17 17:50 Dose: 800 mg Pantoprazole Sodium (Protonix Ec Tab) 40 mg PO DAILY [facility] Last Admin: 09/23/17 09:08 Dose: 40 mg Petrolatum (Desitin Original) 0 gm TOP BID [facility] Last Admin: 09/23/17 17:50 Dose: 1 applic Quetiapine Fumarate (Seroquel) 50 mg PO HS [facility] Last Admin: 09/23/17 21:39 Dose: 50 mg Sucralfate (Carafate Tab) 1 gm PO BID [facility] Last Admin: 09/23/17 17:50 Dose: 1 gm - Labs Labs: 09/23/17 06:55 09/23/17 06:55
[2017-09-24] MEDS: DiphenhydrAMINE 50 mg/ml Inj IVP PRN ×7 (01:45→21:11)
--- NOTE | 2017-09-24 02:21 | PN ---
DATE: SUBJECTIVE: I told him his blood culture was positive yesterday, gram-positive cocci, and this must be due to the fever he had in the weekend. He tells me that the blood cultures were drawn peripherally from his arm, not from the triple lumen and so if that is the case, then it could be a contaminant and then I asked the nurse, the nurse told me that the PICC line is only working for giving things, flow is only inward, not outward, they are not able to draw anything from the PICC line. So, I told her to call for the trouble shoot with the nurse who put it in. Otherwise, Noel Bedolla says he has been bleeding and he has a lot of pain and he is getting desperate to get something definitive done about this situation of having abscesses and fecal material due to fistulas and I am not too sure what else to get him. PHYSICAL EXAMINATION: VITAL SIGNS: T-max is 98, pulse 99, blood pressure 100/65, respirations are 20. HEENT: Head is atraumatic. NECK: Supple. LUNGS: Clear. No crackles or rales present. HEART: S1, S2 is regular. ABDOMEN: Soft. He has a colostomy present. EXTREMITIES: Have no edema. He remains with excoriation and cellulitis in his perineum at this time. LABORATORY DATA: His white count is 5.6 today and the chemistry was done, BUN is 4, creatinine 0.6. He is on vancomycin, amikacin and meropenem and he needs a surgical eval to see if this fistula or the openings need any I&D and his fistula could be repaired. Santosh Daniel MD
[2017-09-24] MEDS: Meropenem 1 GM in Sodium Chloride 0.9% 100 ML IVPB SCH ×3 (05:01→21:26)
[2017-09-24 08:32] LABS: ALB/GLOB RATIO 0.9 (1.0-2.1); ALBUMIN 3.5 g/dL (3.5-5.0); ALT/SGPT 66 U/L (21-72); AST/SGOT 66 U/L (17-59); BLOOD UREA NITROGEN 4 mg/dL (9-20); CALCIUM 8.1 mg/dl (8.6-10.4); GFR AFRICAN-AMERICAN > 60; GFR NON-AFRICAN AMERICAN > 60; MAGNESIUM 1.7 mg/dL (1.6-2.3)
[2017-09-24] MEDS: Pantoprazole 40 mg EC Tab PO SCH (09:09)
[2017-09-24] MEDS: Lactobacillus Acidophilus 500 MU Cap PO SCH ×2 (09:09→17:50)
[2017-09-24] MEDS: Zinc Oxide Topical 30 gm Tube TOP SCH ×2 (10:12→21:22)
[2017-09-24 11:23] LABS: BASO % 0.4 % (0.0-2.0); EOS # 0.4 K/uL (0.0-0.7); EOS % 5.4 % (0.0-4.0); HEMOGLOBIN 10.7 g/dL (12.0-18.0); LYMPH # 3.5 K/uL (1.0-4.3); LYMPH % 42.6 % (20.0-40.0); MEAN CELL VOLUME 72.2 fL (80.0-94.0); MEAN CORPUSCULAR HEMOGLOBIN 23.1 pg (27.0-31.0); MEAN PLATELET VOLUME 8.1 fL (7.2-11.7); MONO # 0.5 K/uL (0.0-0.8); MONO % 6.5 % (0.0-10.0); NEUT # 3.7 K/uL (1.8-7.0); NEUT % 45.1 % (50.0-75.0); NRBC % 0.1 % (0.0-2.0); RBC 4.61 Mil/uL (4.40-5.90); RED CELL DISTRIBUTION WIDTH 17.8 % (11.5-14.5); WHITE BLOOD COUNT 8.2 K/uL (4.8-10.8)
--- NOTE | 2017-09-24 18:43 | CP.PCM.PN ---
Subjective - Date & Time of Evaluation Date of Evaluation: 09/24/17 Time of Evaluation: 18:43 Objective - Vital Signs/Intake and Output Vital Signs (last 24 hours): Temp Pulse Resp BP Pulse Ox 98.9 F 96 H 20 103/65 97 09/24/17 15:00 09/24/17 15:00 09/24/17 15:00 09/24/17 15:00 09/24/17 15:00 Intake and Output: 09/24/17 09/24/17 06:59 18:59 Intake Total 350 570 Output Total 1100 280 Balance -750 290 - Medications Medications: Current Medications Acetaminophen (Tylenol 325mg Tab) 650 mg PO Q6 PRN PRN Reason: fever 101.1 and above Last Admin: 09/19/17 16:05 Dose: 650 mg Ascorbic Acid (Vitamin C 500 Mg Tab) 500 mg PO DAILY [facility] Last Admin: 09/24/17 09:08 Dose: 500 mg Cyanocobalamin (Vitamin B12 1000 Mcg Tab) 1,000 mcg PO DAILY [facility] Last Admin: 09/24/17 09:09 Dose: 1,000 mcg Diphenhydramine HCl (Benadryl) 25 mg IVP Q3 PRN PRN Reason: Itching / Pruritus Last Admin: 09/24/17 17:47 Dose: 25 mg Hydromorphone HCl (Dilaudid) 2 mg IVP Q3 PRN PRN Reason: Pain, moderate (4-7) Last Admin: 09/24/17 17:48 Dose: 2 mg Meropenem 1 gm/ Sodium (Chloride) 100 mls @ 100 mls/hr IVPB Q8 [facility] Last Admin: 09/24/17 13:53 Dose: 100 mls/hr Amikacin Sulfate 500 mg/ (Sodium Chloride) 102 mls @ 100 mls/hr IVPB Q12H [facility] Last Admin: 09/24/17 14:51 Dose: 100 mls/hr Vancomycin/Sodium Chloride (Vancomycin 1 Gm/Ns 200 Ml) 1 gm in 200 mls @ 133 mls/hr IVPB Q24H [facility] Stop: 09/27/17 23:01 Last Admin: 09/23/17 22:42 Dose: 133 mls/hr Lactobacillus Acidophilus (Bacid Acidophilus) 1 cap PO BID [facility] Last Admin: 09/24/17 17:50 Dose: 1 cap Mesalamine (Delzicol) 800 mg PO TID [facility] Last Admin: 09/24/17 17:50 Dose: 800 mg Pantoprazole Sodium (Protonix Ec Tab) 40 mg PO DAILY [facility] Last Admin: 09/24/17 09:09 Dose: 40 mg Petrolatum (Desitin Original) 0 gm TOP BID [facility] Last Admin: 09/24/17 10:12 Dose: 1 applic Quetiapine Fumarate (Seroquel) 50 mg PO HS [facility] Last Admin: 09/23/17 21:39 Dose: 50 mg Sucralfate (Carafate Tab) 1 gm PO BID [facility] Last Admin: 09/24/17 17:50 Dose: 1 gm - Labs Labs: 09/24/17 11:13 09/24/17 07:55
--- NOTE | 2017-09-24 20:18 | CP.PCM.PN ---
Subjective - Date & Time of Evaluation Date of Evaluation: 09/24/17 Time of Evaluation: 05:30 - Subjective Subjective: dictated Objective - Vital Signs/Intake and Output Vital Signs (last 24 hours): Temp Pulse Resp BP Pulse Ox 98.9 F 96 H 20 103/65 97 09/24/17 15:00 09/24/17 15:00 09/24/17 15:00 09/24/17 15:00 09/24/17 15:00 Intake and Output: 09/24/17 09/25/17 18:59 06:59 Intake Total 570 Output Total 280 Balance 290 - Medications Medications: Current Medications Acetaminophen (Tylenol 325mg Tab) 650 mg PO Q6 PRN PRN Reason: fever 101.1 and above Last Admin: 09/19/17 16:05 Dose: 650 mg Ascorbic Acid (Vitamin C 500 Mg Tab) 500 mg PO DAILY [facility] Last Admin: 09/24/17 09:08 Dose: 500 mg Cyanocobalamin (Vitamin B12 1000 Mcg Tab) 1,000 mcg PO DAILY [facility] Last Admin: 09/24/17 09:09 Dose: 1,000 mcg Diphenhydramine HCl (Benadryl) 25 mg IVP Q3 PRN PRN Reason: Itching / Pruritus Last Admin: 09/24/17 17:47 Dose: 25 mg Hydromorphone HCl (Dilaudid) 2 mg IVP Q3 PRN PRN Reason: Pain, moderate (4-7) Last Admin: 09/24/17 17:48 Dose: 2 mg Meropenem 1 gm/ Sodium (Chloride) 100 mls @ 100 mls/hr IVPB Q8 [facility] Last Admin: 09/24/17 13:53 Dose: 100 mls/hr Amikacin Sulfate 500 mg/ (Sodium Chloride) 102 mls @ 100 mls/hr IVPB Q12H [facility] Last Admin: 09/24/17 14:51 Dose: 100 mls/hr Vancomycin/Sodium Chloride (Vancomycin 1 Gm/Ns 200 Ml) 1 gm in 200 mls @ 133 mls/hr IVPB Q24H [facility] Stop: 09/27/17 23:01 Last Admin: 09/23/17 22:42 Dose: 133 mls/hr Lactobacillus Acidophilus (Bacid Acidophilus) 1 cap PO BID [facility] Last Admin: 09/24/17 17:50 Dose: 1 cap Mesalamine (Delzicol) 800 mg PO TID [facility] Last Admin: 09/24/17 17:50 Dose: 800 mg Pantoprazole Sodium (Protonix Ec Tab) 40 mg PO DAILY [facility] Last Admin: 09/24/17 09:09 Dose: 40 mg Petrolatum (Desitin Original) 0 gm TOP BID [facility] Last Admin: 09/24/17 10:12 Dose: 1 applic Quetiapine Fumarate (Seroquel) 50 mg PO HS [facility] Last Admin: 09/23/17 21:39 Dose: 50 mg Sucralfate (Carafate Tab) 1 gm PO BID [facility] Last Admin: 09/24/17 17:50 Dose: 1 gm - Labs Labs: 09/24/17 11:13 09/24/17 07:55
[2017-09-24] MEDS: Vancomycin 1 gm/NS 200 ml 1 GM/200 ML BAG IVPB SCH (22:33)
[2017-09-25] MEDS: DiphenhydrAMINE 50 mg/ml Inj IVP PRN ×8 (00:16→21:26)
--- NOTE | 2017-09-25 01:51 | PN ---
DATE: SUBJECTIVE: The patient is getting Desitin, and he really wants to get rid of these ulcerations and he wants to see the surgeon badly, and I do not think he has been seen by him. This patient has fistulous opening because he has bleeding as well as stool from the perineal areas and that is keeping him moist and causing abscesses and excoriations, and I am not sure if I have a definite solution, all I have done is given antibiotics and it is not helping. He still has tremendous pain and unable to stand as this ulcerations are in the perineal area. PHYSICAL EXAMINATION: VITAL SIGNS: T-Max is 98.9, pulse 90, blood pressure 103/65, respirations are 20. HEENT: Head is atraumatic, normocephalic. LUNGS: Clear. HEART: S1 and S2 are regular. ABDOMEN: Colostomy continues to have these excoriations and needs surgical evaluation. LABORATORY DATA: Labs showed blood cultures are pending. They are negative so far. The one culture was coagulase-negative and the wound culture has Pseudomonas, and he is on three antibiotics at this time. Santosh Daniel MD
[2017-09-25] MEDS: Meropenem 1 GM in Sodium Chloride 0.9% 100 ML IVPB SCH ×3 (06:17→21:29)
[2017-09-25] MEDS: Zinc Oxide Topical 30 gm Tube TOP SCH ×2 (09:04→17:32)
[2017-09-25] MEDS: Pantoprazole 40 mg EC Tab PO SCH (09:05)
[2017-09-25] MEDS: Lactobacillus Acidophilus 500 MU Cap PO SCH ×2 (09:05→17:24)
--- NOTE | 2017-09-25 15:38 | CP.PCM.PN ---
Subjective - Date & Time of Evaluation Date of Evaluation: 09/25/17 Time of Evaluation: 15:38 Objective - Vital Signs/Intake and Output Vital Signs (last 24 hours): Temp Pulse Resp BP Pulse Ox 98.3 F 97 H 20 102/69 97 09/25/17 07:05 09/25/17 07:05 09/25/17 07:05 09/25/17 07:05 09/25/17 07:05 Intake and Output: 09/25/17 09/25/17 06:59 18:59 Intake Total 300 Output Total 600 Balance -300 - Medications Medications: Current Medications Acetaminophen (Tylenol 325mg Tab) 650 mg PO Q6 PRN PRN Reason: fever 101.1 and above Last Admin: 09/19/17 16:05 Dose: 650 mg Ascorbic Acid (Vitamin C 500 Mg Tab) 500 mg PO DAILY [facility] Last Admin: 09/25/17 09:05 Dose: 500 mg Cyanocobalamin (Vitamin B12 1000 Mcg Tab) 1,000 mcg PO DAILY [facility] Last Admin: 09/25/17 09:05 Dose: 1,000 mcg Diphenhydramine HCl (Benadryl) 25 mg IVP Q3 PRN PRN Reason: Itching / Pruritus Last Admin: 09/25/17 15:16 Dose: 25 mg Hydromorphone HCl (Dilaudid) 2 mg IVP Q3 PRN PRN Reason: Pain, moderate (4-7) Last Admin: 09/25/17 15:18 Dose: 2 mg Meropenem 1 gm/ Sodium (Chloride) 100 mls @ 100 mls/hr IVPB Q8 [facility] Last Admin: 09/25/17 13:45 Dose: 100 mls/hr Amikacin Sulfate 500 mg/ (Sodium Chloride) 102 mls @ 100 mls/hr IVPB Q12H [facility] Last Admin: 09/25/17 14:46 Dose: 100 mls/hr Vancomycin/Sodium Chloride (Vancomycin 1 Gm/Ns 200 Ml) 1 gm in 200 mls @ 133 mls/hr IVPB Q24H [facility] Stop: 09/27/17 23:01 Last Admin: 09/24/17 22:33 Dose: 133 mls/hr Lactobacillus Acidophilus (Bacid Acidophilus) 1 cap PO BID [facility] Last Admin: 09/25/17 09:05 Dose: 1 cap Mesalamine (Delzicol) 800 mg PO TID [facility] Last Admin: 09/25/17 13:45 Dose: 800 mg Pantoprazole Sodium (Protonix Ec Tab) 40 mg PO DAILY [facility] Last Admin: 09/25/17 09:05 Dose: 40 mg Petrolatum (Desitin Original) 0 gm TOP BID [facility] Last Admin: 09/25/17 09:04 Dose: 1 applic Quetiapine Fumarate (Seroquel) 50 mg PO HS [facility] Last Admin: 09/24/17 21:26 Dose: 50 mg Sucralfate (Carafate Tab) 1 gm PO BID [facility] Last Admin: 09/25/17 09:05 Dose: 1 gm - Labs Labs: 09/24/17 11:13 09/24/17 07:55
--- NOTE | 2017-09-25 21:25 | CP.PCM.PN ---
Subjective - Date & Time of Evaluation Date of Evaluation: 09/25/17 Time of Evaluation: 04:25 - Subjective Subjective: dictated Objective - Vital Signs/Intake and Output Vital Signs (last 24 hours): Temp Pulse Resp BP Pulse Ox 99.3 F 107 H 20 100/62 95 09/25/17 16:32 09/25/17 16:32 09/25/17 16:32 09/25/17 16:32 09/25/17 16:32 Intake and Output: 09/25/17 09/26/17 18:59 06:59 Intake Total 240 Balance 240 - Medications Medications: Current Medications Acetaminophen (Tylenol 325mg Tab) 650 mg PO Q6 PRN PRN Reason: fever 101.1 and above Last Admin: 09/19/17 16:05 Dose: 650 mg Ascorbic Acid (Vitamin C 500 Mg Tab) 500 mg PO DAILY [facility] Last Admin: 09/25/17 09:05 Dose: 500 mg Cyanocobalamin (Vitamin B12 1000 Mcg Tab) 1,000 mcg PO DAILY [facility] Last Admin: 09/25/17 09:05 Dose: 1,000 mcg Diphenhydramine HCl (Benadryl) 25 mg IVP Q3 PRN PRN Reason: Itching / Pruritus Last Admin: 09/25/17 18:28 Dose: 25 mg Hydromorphone HCl (Dilaudid) 2 mg IVP Q3 PRN PRN Reason: Pain, moderate (4-7) Last Admin: 09/25/17 18:30 Dose: 2 mg Meropenem 1 gm/ Sodium (Chloride) 100 mls @ 100 mls/hr IVPB Q8 [facility] Last Admin: 09/25/17 13:45 Dose: 100 mls/hr Amikacin Sulfate 500 mg/ (Sodium Chloride) 102 mls @ 100 mls/hr IVPB Q12H [facility] Last Admin: 09/25/17 14:46 Dose: 100 mls/hr Vancomycin/Sodium Chloride (Vancomycin 1 Gm/Ns 200 Ml) 1 gm in 200 mls @ 133 mls/hr IVPB Q24H [facility] Stop: 09/27/17 23:01 Last Admin: 09/24/17 22:33 Dose: 133 mls/hr Lactobacillus Acidophilus (Bacid Acidophilus) 1 cap PO BID [facility] Last Admin: 09/25/17 17:24 Dose: 1 cap Mesalamine (Delzicol) 800 mg PO TID [facility] Last Admin: 09/25/17 17:24 Dose: 800 mg Pantoprazole Sodium (Protonix Ec Tab) 40 mg PO DAILY [facility] Last Admin: 09/25/17 09:05 Dose: 40 mg Petrolatum (Desitin Original) 0 gm TOP BID [facility] Last Admin: 09/25/17 17:32 Dose: Not Given Quetiapine Fumarate (Seroquel) 50 mg PO HS [facility] Last Admin: 09/24/17 21:26 Dose: 50 mg Sucralfate (Carafate Tab) 1 gm PO BID [facility] Last Admin: 09/25/17 17:24 Dose: 1 gm - Labs Labs: 09/24/17 11:13 09/24/17 07:55
[2017-09-25] MEDS: Vancomycin 1 gm/NS 200 ml 1 GM/200 ML BAG IVPB SCH (22:58)
[2017-09-26] MEDS: DiphenhydrAMINE 50 mg/ml Inj IVP PRN ×8 (00:27→22:15)
--- NOTE | 2017-09-26 02:12 | PN ---
SUBJECTIVE: Patient still continues to have lot of pain and tenderness in the perineal area due to severe excoriation, skin ulceration, and it has been extensive. PHYSICAL EXAMINATION: VITAL SIGNS: T-max is 99.9, heart rate is 107, blood pressure is 100/62, respirations are 20. HEENT: Unremarkable. NECK: Supple. LUNGS: Clear. HEART: S1 and S2 is regular. ABDOMEN: Soft. Colostomy is working. EXTREMITIES: Have no edema. He says he cannot ambulate much because of the pain there. He did have dressing on, and he had just a cream on at this time and also applying MediHoney. PLAN: To continue with the antibiotics at this time and follow. We would like to have surgical eval to see if it needs any I and D, but it is pending. Santosh Daniel MD
[2017-09-26] MEDS: Meropenem 1 GM in Sodium Chloride 0.9% 100 ML IVPB SCH ×3 (05:55→21:58)
[2017-09-26 07:05] LABS: BASO # 0.1 K/uL (0.0-0.2); BASO % 0.8 % (0.0-2.0); EOS # 0.5 K/uL (0.0-0.7); EOS % 6.6 % (0.0-4.0); HEMOGLOBIN 11.3 g/dL (12.0-18.0); LYMPH # 3.8 K/uL (1.0-4.3); LYMPH % 46.3 % (20.0-40.0); MEAN CELL VOLUME 72.3 fL (80.0-94.0); MEAN CORPUSCULAR HEMOGLOBIN 23.8 pg (27.0-31.0); MEAN CORPUSCULAR HGB CONC 32.9 g/dL (33.0-37.0); MEAN PLATELET VOLUME 9.3 fL (7.2-11.7); MONO # 0.5 K/uL (0.0-0.8); MONO % 5.5 % (0.0-10.0); NEUT # 3.3 K/uL (1.8-7.0); NEUT % 40.8 % (50.0-75.0); NRBC % 0.5 % (0.0-2.0); RBC 4.76 Mil/uL (4.40-5.90); RED CELL DISTRIBUTION WIDTH 17.3 % (11.5-14.5); WHITE BLOOD COUNT 8.1 K/uL (4.8-10.8)
[2017-09-26 08:33] LABS: ALB/GLOB RATIO 0.9 (1.0-2.1); ALBUMIN 3.7 g/dL (3.5-5.0); ALT/SGPT 51 U/L (21-72); AST/SGOT 33 U/L (17-59); BLOOD UREA NITROGEN 5 mg/dL (9-20); CALCIUM 9.2 mg/dl (8.6-10.4); GFR AFRICAN-AMERICAN > 60; GFR NON-AFRICAN AMERICAN > 60
[2017-09-26] MEDS: Lactobacillus Acidophilus 500 MU Cap PO SCH ×2 (09:59→17:57)
[2017-09-26] MEDS: Zinc Oxide Topical 30 gm Tube TOP SCH ×2 (10:00→17:59)
[2017-09-26] MEDS: Pantoprazole 40 mg EC Tab PO SCH (10:01)
--- NOTE | 2017-09-26 17:48 | CP.PCM.PN ---
Subjective - Date & Time of Evaluation Date of Evaluation: 09/26/17 Time of Evaluation: 17:48 Objective - Vital Signs/Intake and Output Vital Signs (last 24 hours): Temp Pulse Resp BP Pulse Ox 98.1 F 110 H 20 108/67 96 09/26/17 15:30 09/26/17 15:30 09/26/17 15:30 09/26/17 15:30 09/26/17 15:30 Intake and Output: 09/26/17 09/26/17 06:59 18:59 Intake Total 990 Balance 990 - Medications Medications: Current Medications Acetaminophen (Tylenol 325mg Tab) 650 mg PO Q6 PRN PRN Reason: fever 101.1 and above Last Admin: 09/19/17 16:05 Dose: 650 mg Ascorbic Acid (Vitamin C 500 Mg Tab) 500 mg PO DAILY [facility] Last Admin: 09/26/17 10:01 Dose: 500 mg Cyanocobalamin (Vitamin B12 1000 Mcg Tab) 1,000 mcg PO DAILY [facility] Last Admin: 09/26/17 10:01 Dose: 1,000 mcg Diphenhydramine HCl (Benadryl) 25 mg IVP Q3 PRN PRN Reason: Itching / Pruritus Last Admin: 09/26/17 16:11 Dose: 25 mg Hydromorphone HCl (Dilaudid) 2 mg IVP Q3 PRN PRN Reason: Pain, moderate (4-7) Last Admin: 09/26/17 16:11 Dose: 2 mg Meropenem 1 gm/ Sodium (Chloride) 100 mls @ 100 mls/hr IVPB Q8 [facility] Last Admin: 09/26/17 13:26 Dose: 100 mls/hr Amikacin Sulfate 500 mg/ (Sodium Chloride) 102 mls @ 100 mls/hr IVPB Q12H [facility] Last Admin: 09/26/17 15:02 Dose: 100 mls/hr Vancomycin/Sodium Chloride (Vancomycin 1 Gm/Ns 200 Ml) 1 gm in 200 mls @ 133 mls/hr IVPB Q24H [facility] Stop: 09/27/17 23:01 Last Admin: 09/25/17 22:58 Dose: 133 mls/hr Lactobacillus Acidophilus (Bacid Acidophilus) 1 cap PO BID [facility] Last Admin: 09/26/17 09:59 Dose: 1 cap Mesalamine (Delzicol) 800 mg PO TID [facility] Last Admin: 09/26/17 13:30 Dose: 800 mg Pantoprazole Sodium (Protonix Ec Tab) 40 mg PO DAILY [facility] Last Admin: 09/26/17 10:01 Dose: 40 mg Petrolatum (Desitin Original) 0 gm TOP BID [facility] Last Admin: 09/26/17 10:00 Dose: 1 applic Quetiapine Fumarate (Seroquel) 50 mg PO HS [facility] Last Admin: 09/25/17 21:26 Dose: 50 mg Sucralfate (Carafate Tab) 1 gm PO BID [facility] Last Admin: 09/26/17 10:00 Dose: 1 gm - Labs Labs: 09/26/17 06:39 09/26/17 06:39
--- NOTE | 2017-09-26 21:50 | CP.PCM.PN ---
Subjective - Date & Time of Evaluation Date of Evaluation: 09/26/17 Time of Evaluation: 05:00 - Subjective Subjective: dictated Objective - Vital Signs/Intake and Output Vital Signs (last 24 hours): Temp Pulse Resp BP Pulse Ox 98.1 F 110 H 20 108/67 96 09/26/17 15:30 09/26/17 15:30 09/26/17 15:30 09/26/17 15:30 09/26/17 15:30 - Medications Medications: Current Medications Acetaminophen (Tylenol 325mg Tab) 650 mg PO Q6 PRN PRN Reason: fever 101.1 and above Last Admin: 09/19/17 16:05 Dose: 650 mg Ascorbic Acid (Vitamin C 500 Mg Tab) 500 mg PO DAILY [facility] Last Admin: 09/26/17 10:01 Dose: 500 mg Cyanocobalamin (Vitamin B12 1000 Mcg Tab) 1,000 mcg PO DAILY [facility] Last Admin: 09/26/17 10:01 Dose: 1,000 mcg Diphenhydramine HCl (Benadryl) 25 mg IVP Q3 PRN PRN Reason: Itching / Pruritus Last Admin: 09/26/17 19:20 Dose: 25 mg Hydromorphone HCl (Dilaudid) 2 mg IVP Q3 PRN PRN Reason: Pain, moderate (4-7) Last Admin: 09/26/17 19:20 Dose: 2 mg Meropenem 1 gm/ Sodium (Chloride) 100 mls @ 100 mls/hr IVPB Q8 [facility] Last Admin: 09/26/17 13:26 Dose: 100 mls/hr Amikacin Sulfate 500 mg/ (Sodium Chloride) 102 mls @ 100 mls/hr IVPB Q12H [facility] Last Admin: 09/26/17 15:02 Dose: 100 mls/hr Vancomycin/Sodium Chloride (Vancomycin 1 Gm/Ns 200 Ml) 1 gm in 200 mls @ 133 mls/hr IVPB Q24H [facility] Stop: 09/27/17 23:01 Last Admin: 09/25/17 22:58 Dose: 133 mls/hr Lactobacillus Acidophilus (Bacid Acidophilus) 1 cap PO BID [facility] Last Admin: 09/26/17 17:57 Dose: 1 cap Mesalamine (Delzicol) 800 mg PO TID [facility] Last Admin: 09/26/17 17:58 Dose: 800 mg Pantoprazole Sodium (Protonix Ec Tab) 40 mg PO DAILY [facility] Last Admin: 09/26/17 10:01 Dose: 40 mg Petrolatum (Desitin Original) 0 gm TOP BID [facility] Last Admin: 09/26/17 17:59 Dose: 1 applic Quetiapine Fumarate (Seroquel) 50 mg PO HS [facility] Last Admin: 09/25/17 21:26 Dose: 50 mg Sucralfate (Carafate Tab) 1 gm PO BID [facility] Last Admin: 09/26/17 17:57 Dose: 1 gm - Labs Labs: 09/26/17 06:39 09/26/17 06:39
[2017-09-26] MEDS: Vancomycin 1 gm/NS 200 ml 1 GM/200 ML BAG IVPB SCH (22:16)
--- NOTE | 2017-09-27 00:24 | PN ---
DATE: SUBJECTIVE: The patient afebrile. He still remains with lot of pain. He . He is still passing stool from the bottom and has these abscesses, which are not improving much with antibiotics. He still remains in pain. PHYSICAL EXAMINATION: VITAL SIGNS: T-Max is 98.1, pulse is 110, respirations are 20, blood pressure 108/67. HEENT: Head is atraumatic, normocephalic. NECK: Supple. LUNGS: Clear. HEART: S1 and S2 tachycardic. ABDOMEN: Soft. Colostomy present. Wounds, he has severe excoriation extending from the back between the buttocks to the perineal area and he is very tender in those areas. LABORATORY DATA: White count is 8.1, hemoglobin 11.3, hematocrit 34.4, platelet count is 115, platelets have decreased. BUN is 5, creatinine 0.6. ASSESSMENT AND PLAN: I think his meropenem may be decreasing the platelets, so we will need to monitor the platelets as they are decreasing. His blood cultures have been negative. The coagulase negative was a peripheral blood culture so I would take it as a contaminant. Wound cultures had Escherichia coli and pseudomonas. We will continue the antibiotic and would recheck the CBC again. Santosh Daniel MD
[2017-09-27] MEDS: DiphenhydrAMINE 50 mg/ml Inj IVP PRN ×8 (01:16→23:35)
[2017-09-27] MEDS: Meropenem 1 GM in Sodium Chloride 0.9% 100 ML IVPB SCH ×3 (06:01→21:36)
[2017-09-27] MEDS: Lactobacillus Acidophilus 500 MU Cap PO SCH ×2 (09:38→17:22)
[2017-09-27] MEDS: Pantoprazole 40 mg EC Tab PO SCH (09:38)
[2017-09-27 10:29] LABS: BASO % 0.5 % (0.0-2.0); EOS # 0.5 K/uL (0.0-0.7); EOS % 5.4 % (0.0-4.0); LYMPH # 3.4 K/uL (1.0-4.3); LYMPH % 36.6 % (20.0-40.0); MEAN CELL VOLUME 71.2 fL (80.0-94.0); MEAN CORPUSCULAR HEMOGLOBIN 23.1 pg (27.0-31.0); MEAN CORPUSCULAR HGB CONC 32.4 g/dL (33.0-37.0); MEAN PLATELET VOLUME 7.9 fL (7.2-11.7); MONO # 0.6 K/uL (0.0-0.8); NEUT # 4.6 K/uL (1.8-7.0); NEUT % 50.5 % (50.0-75.0); RBC 4.75 Mil/uL (4.40-5.90); RED CELL DISTRIBUTION WIDTH 17.3 % (11.5-14.5); WHITE BLOOD COUNT 9.2 K/uL (4.8-10.8)
[2017-09-27] MEDS: Zinc Oxide Topical 30 gm Tube TOP SCH ×2 (11:00→18:47)
--- NOTE | 2017-09-27 14:23 | CP.PCM.PN ---
Subjective - Date & Time of Evaluation Date of Evaluation: 09/27/17 Time of Evaluation: 14:23 Objective - Vital Signs/Intake and Output Vital Signs (last 24 hours): Temp Pulse Resp BP Pulse Ox 98.3 F 106 H 20 114/77 100 09/27/17 07:00 09/27/17 07:00 09/27/17 07:00 09/27/17 07:00 09/27/17 07:00 Intake and Output: 09/27/17 09/27/17 06:59 18:59 Output Total 600 Balance -600 - Medications Medications: Current Medications Acetaminophen (Tylenol 325mg Tab) 650 mg PO Q6 PRN PRN Reason: fever 101.1 and above Last Admin: 09/19/17 16:05 Dose: 650 mg Ascorbic Acid (Vitamin C 500 Mg Tab) 500 mg PO DAILY [facility] Last Admin: 09/27/17 09:38 Dose: 500 mg Cyanocobalamin (Vitamin B12 1000 Mcg Tab) 1,000 mcg PO DAILY [facility] Last Admin: 09/27/17 09:40 Dose: 1,000 mcg Diphenhydramine HCl (Benadryl) 25 mg IVP Q3 PRN PRN Reason: Itching / Pruritus Last Admin: 09/27/17 14:05 Dose: 25 mg Hydromorphone HCl (Dilaudid) 2 mg IVP Q3H PRN PRN Reason: Pain, moderate (4-7) Last Admin: 09/27/17 14:03 Dose: 2 mg Meropenem 1 gm/ Sodium (Chloride) 100 mls @ 100 mls/hr IVPB Q8 [facility] Last Admin: 09/27/17 13:10 Dose: 100 mls/hr Amikacin Sulfate 500 mg/ (Sodium Chloride) 102 mls @ 100 mls/hr IVPB Q12H [facility] Last Admin: 09/27/17 14:05 Dose: 100 mls/hr Vancomycin/Sodium Chloride (Vancomycin 1 Gm/Ns 200 Ml) 1 gm in 200 mls @ 133 mls/hr IVPB Q24H [facility] Stop: 09/27/17 23:01 Last Admin: 09/26/17 22:16 Dose: 133 mls/hr Lactobacillus Acidophilus (Bacid Acidophilus) 1 cap PO BID [facility] Last Admin: 09/27/17 09:38 Dose: 1 cap Mesalamine (Delzicol) 800 mg PO TID [facility] Last Admin: 09/27/17 13:11 Dose: 800 mg Pantoprazole Sodium (Protonix Ec Tab) 40 mg PO DAILY [facility] Last Admin: 09/27/17 09:38 Dose: 40 mg Petrolatum (Desitin Original) 0 gm TOP BID [facility] Last Admin: 09/27/17 11:00 Dose: 1 applic Quetiapine Fumarate (Seroquel) 50 mg PO HS [facility] Last Admin: 09/26/17 22:15 Dose: 50 mg Sucralfate (Carafate Tab) 1 gm PO BID [facility] Last Admin: 09/27/17 09:38 Dose: 1 gm - Labs Labs: 09/27/17 10:25 09/26/17 06:39
[2017-09-27] MEDS: Vancomycin 1 gm/NS 200 ml 1 GM/200 ML BAG IVPB SCH (23:10)
[2017-09-28] MEDS: DiphenhydrAMINE 50 mg/ml Inj IVP PRN ×8 (02:45→23:35)
[2017-09-28] MEDS: Meropenem 1 GM in Sodium Chloride 0.9% 100 ML IVPB SCH ×3 (05:31→22:59)
[2017-09-28] MEDS: Zinc Oxide Topical 30 gm Tube TOP SCH ×2 (09:01→20:36)
[2017-09-28] MEDS: Pantoprazole 40 mg EC Tab PO SCH (09:02)
[2017-09-28] MEDS: Lactobacillus Acidophilus 500 MU Cap PO SCH ×2 (09:02→17:53)
[2017-09-28 11:46] LABS: BASO # 0.1 K/uL (0.0-0.2); BASO % 0.7 % (0.0-2.0); EOS # 0.6 K/uL (0.0-0.7); EOS % 6.1 % (0.0-4.0); HEMOGLOBIN 11.3 g/dL (12.0-18.0); LYMPH # 3.6 K/uL (1.0-4.3); LYMPH % 38.8 % (20.0-40.0); MEAN CELL VOLUME 71.2 fL (80.0-94.0); MEAN CORPUSCULAR HEMOGLOBIN 23.5 pg (27.0-31.0); MEAN CORPUSCULAR HGB CONC 32.9 g/dL (33.0-37.0); MEAN PLATELET VOLUME 8.3 fL (7.2-11.7); MONO # 0.6 K/uL (0.0-0.8); MONO % 6.2 % (0.0-10.0); NEUT # 4.5 K/uL (1.8-7.0); NEUT % 48.2 % (50.0-75.0); RBC 4.83 Mil/uL (4.40-5.90); RED CELL DISTRIBUTION WIDTH 17.1 % (11.5-14.5); WHITE BLOOD COUNT 9.3 K/uL (4.8-10.8)
[2017-09-28 12:04] LABS: ALB/GLOB RATIO 0.9 (1.0-2.1); ALBUMIN 3.8 g/dL (3.5-5.0); ALT/SGPT 44 U/L (21-72); AST/SGOT 34 U/L (17-59); BLOOD UREA NITROGEN 10 mg/dL (9-20); GFR AFRICAN-AMERICAN > 60; GFR NON-AFRICAN AMERICAN > 60
--- NOTE | 2017-09-28 19:28 | CP.PCM.PN ---
Subjective - Date & Time of Evaluation Date of Evaluation: 09/28/17 Time of Evaluation: 09:00 - Subjective Subjective: clinically same Objective - Vital Signs/Intake and Output Vital Signs (last 24 hours): Temp Pulse Resp BP Pulse Ox 98.2 F 109 H 20 101/69 99 09/28/17 16:15 09/28/17 16:15 09/28/17 16:15 09/28/17 16:15 09/28/17 16:15 Intake and Output: 09/28/17 09/29/17 18:59 06:59 Intake Total 300 Balance 300 - Medications Medications: Current Medications Acetaminophen (Tylenol 325mg Tab) 650 mg PO Q6 PRN PRN Reason: fever 101.1 and above Last Admin: 09/19/17 16:05 Dose: 650 mg Ascorbic Acid (Vitamin C 500 Mg Tab) 500 mg PO DAILY [facility] Last Admin: 09/28/17 09:01 Dose: 500 mg Cyanocobalamin (Vitamin B12 1000 Mcg Tab) 1,000 mcg PO DAILY [facility] Last Admin: 09/28/17 09:02 Dose: 1,000 mcg Diphenhydramine HCl (Benadryl) 25 mg IVP Q3 PRN PRN Reason: Itching / Pruritus Last Admin: 09/28/17 17:35 Dose: 25 mg Hydromorphone HCl (Dilaudid) 2 mg IVP Q3H PRN PRN Reason: Pain, moderate (4-7) Last Admin: 09/28/17 17:35 Dose: 2 mg Meropenem 1 gm/ Sodium (Chloride) 100 mls @ 100 mls/hr IVPB Q8 [facility] Last Admin: 09/28/17 13:44 Dose: 100 mls/hr Lactobacillus Acidophilus (Bacid Acidophilus) 1 cap PO BID [facility] Last Admin: 09/28/17 17:53 Dose: 1 cap Mesalamine (Delzicol) 800 mg PO TID [facility] Last Admin: 09/28/17 17:53 Dose: 800 mg Pantoprazole Sodium (Protonix Ec Tab) 40 mg PO DAILY [facility] Last Admin: 09/28/17 09:02 Dose: 40 mg Petrolatum (Desitin Original) 0 gm TOP BID [facility] Last Admin: 09/28/17 09:01 Dose: 1 applic Quetiapine Fumarate (Seroquel) 50 mg PO HS [facility] Last Admin: 09/27/17 21:36 Dose: 50 mg Sucralfate (Carafate Tab) 1 gm PO BID [facility] Last Admin: 09/28/17 17:36 Dose: 1 gm - Labs Labs: 09/28/17 11:37 09/28/17 11:37 - Constitutional Appears: Well - Head Exam Head Exam: ATRAUMATIC, NORMAL INSPECTION, NORMOCEPHALIC - Eye Exam Eye Exam: EOMI, Normal appearance, PERRL Pupil Exam: NORMAL ACCOMODATION, PERRL - ENT Exam ENT Exam: Mucous Membranes Moist, Normal Exam - Neck Exam Neck Exam: Full ROM, Normal Inspection. absent: Lymphadenopathy - Respiratory Exam Respiratory Exam: Decreased Breath Sounds - Cardiovascular Exam Cardiovascular Exam: REGULAR RHYTHM, +S1, +S2 - GI/Abdominal Exam GI & Abdominal Exam: Soft, Diminished Bowel Sounds - Rectal Exam Rectal Exam: Deferred
--- NOTE | 2017-09-28 20:14 | CP.PCM.PN ---
Subjective - Date & Time of Evaluation Date of Evaluation: 09/28/17 Time of Evaluation: 06:20 - Subjective Subjective: dictated Objective - Vital Signs/Intake and Output Vital Signs (last 24 hours): Temp Pulse Resp BP Pulse Ox 98.2 F 109 H 20 101/69 99 09/28/17 16:15 09/28/17 16:15 09/28/17 16:15 09/28/17 16:15 09/28/17 16:15 Intake and Output: 09/28/17 09/29/17 18:59 06:59 Intake Total 300 Balance 300 - Medications Medications: Current Medications Acetaminophen (Tylenol 325mg Tab) 650 mg PO Q6 PRN PRN Reason: fever 101.1 and above Last Admin: 09/19/17 16:05 Dose: 650 mg Ascorbic Acid (Vitamin C 500 Mg Tab) 500 mg PO DAILY [facility] Last Admin: 09/28/17 09:01 Dose: 500 mg Cyanocobalamin (Vitamin B12 1000 Mcg Tab) 1,000 mcg PO DAILY [facility] Last Admin: 09/28/17 09:02 Dose: 1,000 mcg Diphenhydramine HCl (Benadryl) 25 mg IVP Q3 PRN PRN Reason: Itching / Pruritus Last Admin: 09/28/17 17:35 Dose: 25 mg Hydromorphone HCl (Dilaudid) 2 mg IVP Q3H PRN PRN Reason: Pain, moderate (4-7) Last Admin: 09/28/17 17:35 Dose: 2 mg Meropenem 1 gm/ Sodium (Chloride) 100 mls @ 100 mls/hr IVPB Q8 [facility] Last Admin: 09/28/17 13:44 Dose: 100 mls/hr Lactobacillus Acidophilus (Bacid Acidophilus) 1 cap PO BID [facility] Last Admin: 09/28/17 17:53 Dose: 1 cap Mesalamine (Delzicol) 800 mg PO TID [facility] Last Admin: 09/28/17 17:53 Dose: 800 mg Pantoprazole Sodium (Protonix Ec Tab) 40 mg PO DAILY [facility] Last Admin: 09/28/17 09:02 Dose: 40 mg Petrolatum (Desitin Original) 0 gm TOP BID [facility] Last Admin: 09/28/17 09:01 Dose: 1 applic Quetiapine Fumarate (Seroquel) 50 mg PO HS [facility] Last Admin: 09/27/17 21:36 Dose: 50 mg Sucralfate (Carafate Tab) 1 gm PO BID [facility] Last Admin: 09/28/17 17:36 Dose: 1 gm - Labs Labs: 09/28/17 11:37 09/28/17 11:37
--- NOTE | 2017-09-29 01:37 | PN ---
DATE: SUBJECTIVE: He continues to have pain. He does not ambulate much and he is bedbound right now. He wants to see the surgeon, and the nurse told me that probably they are not coming because they cannot do much. So, at this time, I am not sure, but he says surgeon will promise him to come tomorrow and his mother called his office, so I am hoping he is seen tomorrow. He continues to have these perineal wounds and it just do not seem to get better. He has fistula and he says it was draining blood, but his hemoglobin is 11.3, hematocrit 34.4, platelets are better right now, it is 364. Creatinine is 0.7. This is the eleventh day of his medications. We will continue same for now. Santosh Daniel MD
[2017-09-29] MEDS: DiphenhydrAMINE 50 mg/ml Inj IVP PRN ×7 (02:41→21:58)
[2017-09-29] MEDS: Meropenem 1 GM in Sodium Chloride 0.9% 100 ML IVPB SCH ×3 (05:46→21:57)
[2017-09-29 08:17] VITALS: RESP 20
[2017-09-29] MEDS: Zinc Oxide Topical 30 gm Tube TOP SCH ×2 (09:06→17:59)
[2017-09-29] MEDS: Pantoprazole 40 mg EC Tab PO SCH (09:07)
[2017-09-29] MEDS: Lactobacillus Acidophilus 500 MU Cap PO SCH ×2 (09:07→18:01)
--- NOTE | 2017-09-29 16:31 | CP.PCM.PN ---
Subjective - Date & Time of Evaluation Date of Evaluation: 09/29/17 Time of Evaluation: 11:00 - Subjective Subjective: clinically same Objective - Vital Signs/Intake and Output Vital Signs (last 24 hours): Temp Pulse Resp BP Pulse Ox 99.0 F 97 H 20 112/66 96 09/29/17 16:21 09/29/17 16:21 09/29/17 16:21 09/29/17 16:21 09/29/17 16:21 Intake and Output: 09/29/17 09/29/17 06:59 18:59 Intake Total 250 300 Output Total 400 Balance -150 300 - Medications Medications: Current Medications Acetaminophen (Tylenol 325mg Tab) 650 mg PO Q6 PRN PRN Reason: fever 101.1 and above Last Admin: 09/19/17 16:05 Dose: 650 mg Ascorbic Acid (Vitamin C 500 Mg Tab) 500 mg PO DAILY [facility] [place] Last Admin: 09/29/17 09:07 Dose: 500 mg Cyanocobalamin (Vitamin B12 1000 Mcg Tab) 1,000 mcg PO DAILY [facility] Last Admin: 09/29/17 09:07 Dose: 1,000 mcg Diphenhydramine HCl (Benadryl) 25 mg IVP Q3 PRN PRN Reason: Itching / Pruritus Last Admin: 09/29/17 14:51 Dose: 25 mg Hydromorphone HCl (Dilaudid) 2 mg IVP Q3H PRN PRN Reason: Pain, moderate (4-7) Last Admin: 09/29/17 14:53 Dose: 2 mg Meropenem 1 gm/ Sodium (Chloride) 100 mls @ 100 mls/hr IVPB Q8 [facility] [place] Last Admin: 09/29/17 13:36 Dose: 100 mls/hr Lactobacillus Acidophilus (Bacid Acidophilus) 1 cap PO BID [facility] [place] Last Admin: 09/29/17 09:07 Dose: 1 cap Mesalamine (Delzicol) 800 mg PO TID [facility] [place] Last Admin: 09/29/17 13:04 Dose: 800 mg Pantoprazole Sodium (Protonix Ec Tab) 40 mg PO DAILY [facility] [place] Last Admin: 09/29/17 09:07 Dose: 40 mg Petrolatum (Desitin Original) 0 gm TOP BID [facility] [place] Last Admin: 09/29/17 09:06 Dose: 1 applic Quetiapine Fumarate (Seroquel) 50 mg PO HS [facility] [place] Last Admin: 09/28/17 22:59 Dose: 50 mg Sucralfate (Carafate Tab) 1 gm PO BID [facility] [place] Last Admin: 09/29/17 09:07 Dose: 1 gm - Labs Labs: 09/28/17 11:37 09/28/17 11:37 - Constitutional Appears: Well - Head Exam Head Exam: ATRAUMATIC, NORMAL INSPECTION, NORMOCEPHALIC - Eye Exam Eye Exam: EOMI, Normal appearance, PERRL Pupil Exam: NORMAL ACCOMODATION, PERRL - ENT Exam ENT Exam: Mucous Membranes Moist, Normal Exam - Neck Exam Neck Exam: Full ROM, Normal Inspection. absent: Lymphadenopathy - Respiratory Exam Respiratory Exam: Decreased Breath Sounds - Cardiovascular Exam Cardiovascular Exam: REGULAR RHYTHM, +S1, +S2 - GI/Abdominal Exam GI & Abdominal Exam: Soft, Diminished Bowel Sounds - Rectal Exam Rectal Exam: Deferred
--- NOTE | 2017-09-29 18:07 | CP.PCM.PN ---
Subjective - Date & Time of Evaluation Date of Evaluation: 09/29/17 Time of Evaluation: 11:10 - Subjective Subjective: Medicine Progress Note- Patient with no significant events overnight per nursing. Patient still having stool output. Patient with pain that comes and goes. He wants to speak with surgery regarding any further interventions. He denies subjective fevers or chills, nausea, vomiting, chest pain or headaches at this time Objective - Vital Signs/Intake and Output Vital Signs (last 24 hours): Temp Pulse Resp BP Pulse Ox 99.0 F 97 H 20 112/66 96 09/29/17 16:21 09/29/17 16:21 09/29/17 16:21 09/29/17 16:21 09/29/17 16:21 Intake and Output: 09/29/17 09/29/17 06:59 18:59 Intake Total 250 300 Output Total 400 Balance -150 300 - Medications Medications: Current Medications Acetaminophen (Tylenol 325mg Tab) 650 mg PO Q6 PRN PRN Reason: fever 101.1 and above Last Admin: 09/19/17 16:05 Dose: 650 mg Ascorbic Acid (Vitamin C 500 Mg Tab) 500 mg PO DAILY [facility] Last Admin: 09/29/17 09:07 Dose: 500 mg Cyanocobalamin (Vitamin B12 1000 Mcg Tab) 1,000 mcg PO DAILY [facility] Last Admin: 09/29/17 09:07 Dose: 1,000 mcg Diphenhydramine HCl (Benadryl) 25 mg IVP Q3 PRN PRN Reason: Itching / Pruritus Last Admin: 09/29/17 17:58 Dose: 25 mg Hydromorphone HCl (Dilaudid) 1 mg IVP Q3H PRN PRN Reason: Pain, moderate (4-7) Last Admin: 09/29/17 17:58 Dose: 1 mg Meropenem 1 gm/ Sodium (Chloride) 100 mls @ 100 mls/hr IVPB Q8 [facility] Last Admin: 09/29/17 13:36 Dose: 100 mls/hr Lactobacillus Acidophilus (Bacid Acidophilus) 1 cap PO BID [facility] Last Admin: 09/29/17 18:01 Dose: 1 cap Mesalamine (Delzicol) 800 mg PO TID [facility] Last Admin: 09/29/17 18:01 Dose: 800 mg Pantoprazole Sodium (Protonix Ec Tab) 40 mg PO DAILY [facility] Last Admin: 09/29/17 09:07 Dose: 40 mg Petrolatum (Desitin Original) 0 gm TOP BID [facility] Last Admin: 09/29/17 17:59 Dose: Not Given Quetiapine Fumarate (Seroquel) 50 mg PO HS [facility] Last Admin: 09/28/17 22:59 Dose: 50 mg Sucralfate (Carafate Tab) 1 gm PO BID [facility] Last Admin: 09/29/17 18:01 Dose: 1 gm - Labs Labs: 09/28/17 11:37 09/28/17 11:37 - Constitutional Appears: Non-toxic, No Acute Distress - Head Exam Head Exam: ATRAUMATIC, NORMAL INSPECTION - Eye Exam Eye Exam: EOMI - ENT Exam ENT Exam: Mucous Membranes Moist - Neck Exam Neck Exam: Full ROM - Respiratory Exam Respiratory Exam: NORMAL BREATHING PATTERN - Cardiovascular Exam Cardiovascular Exam: +S1, +S2 - GI/Abdominal Exam GI & Abdominal Exam: Soft Additional comments: ostomy site with stool output noted. - Extremities Exam Extremities Exam: Full ROM - Back Exam Back Exam: Full ROM - Neurological Exam Neurological Exam: Alert, Awake - Psychiatric Exam Psychiatric exam: Normal Affect, Normal Mood - Skin Skin Exam: Dry, Normal Color, Warm Assessment and Plan (1) Crohn disease Status: Chronic (2) Encounter for wound care Status: Acute (3) Depressed mood Status: Acute (4) Prophylactic measure Status: Acute - Assessment and Plan (Free Text) Assessment: Crohn disease Assessment & Plan: On Mesalamine Pain control Monitor BMs Diet management Outpatient GI follow up; Considerations for surgical management for abscesses if need be. Continue PPI and Carafate Cont to monitor Status: Chronic Positive blood cultures Assessment & Plan: Afebrile, no leukocytosis, no left shift, no bandemia Repeat blood cultures 09/22/17 and 09/23/17- negative Antibiotics may be adjusted per ID. F/U ID recommendations Anal fistula Assessment & Plan: On antibiotics- May be adjusted per ID Continue petrolatum Surgeon, Dr. Taylor consulted with recommendations for outpatient follow up Depressed mood Assessment & Plan: Seroquel 50 mg PO HS Status: Acute Prophylactic measure Assessment & Plan: Lovenox 40SC PPI 40 mg PO daily Status: Acute Discussed with attending. Management and planning per Dr. Barrett.
[2017-09-30] MEDS: DiphenhydrAMINE 50 mg/ml Inj IVP PRN ×7 (01:17→21:31)
[2017-09-30] MEDS: Meropenem 1 GM in Sodium Chloride 0.9% 100 ML IVPB SCH ×3 (06:12→21:32)
[2017-09-30] MEDS: Zinc Oxide Topical 30 gm Tube TOP SCH ×2 (09:04→18:00)
[2017-09-30] MEDS: Lactobacillus Acidophilus 500 MU Cap PO SCH ×2 (09:05→18:21)
[2017-09-30] MEDS: Pantoprazole 40 mg EC Tab PO SCH (09:05)
[2017-09-30 10:53] LABS: BASO # 0.1 K/uL (0.0-0.2); BASO % 0.4 % (0.0-2.0); EOS # 0.4 K/uL (0.0-0.7); EOS % 3.4 % (0.0-4.0); HEMOGLOBIN 11.5 g/dL (12.0-18.0); LYMPH # 2.3 K/uL (1.0-4.3); LYMPH % 19.2 % (20.0-40.0); MEAN CELL VOLUME 70.8 fL (80.0-94.0); MEAN CORPUSCULAR HEMOGLOBIN 22.6 pg (27.0-31.0); MEAN PLATELET VOLUME 8.2 fL (7.2-11.7); MONO # 0.8 K/uL (0.0-0.8); MONO % 6.6 % (0.0-10.0); NEUT # 8.5 K/uL (1.8-7.0); NEUT % 70.4 % (50.0-75.0); RBC 5.08 Mil/uL (4.40-5.90)
[2017-09-30 11:13] LABS: BLOOD UREA NITROGEN 7 mg/dL (9-20); CALCIUM 9.7 mg/dl (8.6-10.4); GFR AFRICAN-AMERICAN > 60; GFR NON-AFRICAN AMERICAN > 60
--- NOTE | 2017-09-30 11:43 | CP.PCM.PN ---
Subjective - Date & Time of Evaluation Date of Evaluation: 09/30/17 Time of Evaluation: 11:39 - Subjective Subjective: PGY2 progress note for Dr. Barrett Pt seen and examined at bedside. No acute events overnight. pt is noted to have low grade temp this morning. Denies having any F/C, CP, SOB. C/O abd pain and pain at site of abscess. Patient states that he is having high outpt through colostomy bag. Tolerating PO intake. 12 point ROS negative except for the above mentioned. Objective - Vital Signs/Intake and Output Vital Signs (last 24 hours): Temp Pulse Resp BP Pulse Ox 98.3 F 114 H 20 110/75 97 09/30/17 07:05 09/30/17 07:05 09/30/17 07:05 09/30/17 07:05 09/30/17 07:05 Intake and Output: 09/30/17 09/30/17 06:59 18:59 Output Total 350 Balance -350 - Medications Medications: Current Medications Acetaminophen (Tylenol 325mg Tab) 650 mg PO Q6 PRN PRN Reason: fever 101.1 and above Last Admin: 09/19/17 16:05 Dose: 650 mg Ascorbic Acid (Vitamin C 500 Mg Tab) 500 mg PO DAILY [facility] [place] Last Admin: 09/30/17 09:05 Dose: 500 mg Cyanocobalamin (Vitamin B12 1000 Mcg Tab) 1,000 mcg PO DAILY [facility] Last Admin: 09/30/17 09:05 Dose: 1,000 mcg Diphenhydramine HCl (Benadryl) 25 mg IVP Q3 PRN PRN Reason: Itching / Pruritus Last Admin: 09/30/17 09:12 Dose: 25 mg Hydromorphone HCl (Dilaudid) 1 mg IVP Q3H PRN PRN Reason: Pain, moderate (4-7) Last Admin: 09/30/17 09:14 Dose: 1 mg Meropenem 1 gm/ Sodium (Chloride) 100 mls @ 100 mls/hr IVPB Q8 [facility] Last Admin: 09/30/17 06:12 Dose: 100 mls/hr Lactobacillus Acidophilus (Bacid Acidophilus) 1 cap PO BID [facility] Last Admin: 09/30/17 09:05 Dose: 1 cap Mesalamine (Delzicol) 800 mg PO TID [facility] Last Admin: 09/30/17 09:04 Dose: 800 mg Pantoprazole Sodium (Protonix Ec Tab) 40 mg PO DAILY [facility] Last Admin: 09/30/17 09:05 Dose: 40 mg Petrolatum (Desitin Original) 0 gm TOP BID [facility] [place] Last Admin: 09/30/17 09:04 Dose: 1 applic Quetiapine Fumarate (Seroquel) 50 mg PO HS [facility] Last Admin: 09/29/17 21:57 Dose: 50 mg Sucralfate (Carafate Tab) 1 gm PO BID [facility] Last Admin: 09/30/17 09:05 Dose: 1 gm - Labs Labs: 09/30/17 10:41 09/30/17 10:41 - Constitutional Appears: Non-toxic, No Acute Distress - Head Exam Head Exam: ATRAUMATIC, NORMOCEPHALIC - ENT Exam ENT Exam: Mucous Membranes Moist - Respiratory Exam Respiratory Exam: Clear to Ausculation Bilateral. absent: Accessory Muscle Use , Rales, Rhonchi, Wheezes, Respiratory Distress - Cardiovascular Exam Cardiovascular Exam: REGULAR RHYTHM, +S1, +S2. absent: Gallop, Rubs, Murmur - GI/Abdominal Exam GI & Abdominal Exam: Soft, Normal Bowel Sounds. absent: Distended, Firm, Guarding, Rigid, Tenderness, Organomegaly Additional comments: colostomy bag in place with stool - Extremities Exam Extremities Exam: absent: Pedal Edema, Tenderness - Neurological Exam Neurological Exam: Alert, Awake, Oriented x3 - Psychiatric Exam Psychiatric exam: Normal Affect, Normal Mood - Skin Skin Exam: Dry, Intact, Normal Color, Warm Assessment and Plan - Assessment and Plan (Free Text) Assessment: Crohn disease On Mesalamine Pain control Monitor BMs Diet management Outpatient GI follow up; Considerations for surgical management for abscesses if need be. Continue PPI and Carafate Cont to monitor Positive blood culture Pt had low grade temp this am. WBC count is 12 with slight left shift. Will consider repeating blood cultures after discussing with ID F/U ID recommendations Currently on meropenem Anal fistula On antibiotics- May be adjusted per ID Continue petrolatum Surgeon, Dr. Taylor consulted with recommendations for outpatient follow up Depressed mood Seroquel 50 mg PO HS Prophylactic measure Lovenox 40SC PPI 40 mg PO daily Discussed with attending. Management and planning per Dr. Barrett.
--- NOTE | 2017-09-30 12:59 | CP.PCM.PN ---
Subjective - Date & Time of Evaluation Date of Evaluation: 09/30/17 Time of Evaluation: 10:00 - Subjective Subjective: clinically same Objective - Vital Signs/Intake and Output Vital Signs (last 24 hours): Temp Pulse Resp BP Pulse Ox 98.3 F 114 H 20 110/75 97 09/30/17 07:05 09/30/17 07:05 09/30/17 07:05 09/30/17 07:05 09/30/17 07:05 Intake and Output: 09/30/17 09/30/17 06:59 18:59 Output Total 350 Balance -350 - Medications Medications: Current Medications Acetaminophen (Tylenol 325mg Tab) 650 mg PO Q6 PRN PRN Reason: fever 101.1 and above Last Admin: 09/19/17 16:05 Dose: 650 mg Ascorbic Acid (Vitamin C 500 Mg Tab) 500 mg PO DAILY [facility] Last Admin: 09/30/17 09:05 Dose: 500 mg Cyanocobalamin (Vitamin B12 1000 Mcg Tab) 1,000 mcg PO DAILY [facility] Last Admin: 09/30/17 09:05 Dose: 1,000 mcg Diphenhydramine HCl (Benadryl) 25 mg IVP Q3 PRN PRN Reason: Itching / Pruritus Last Admin: 09/30/17 12:12 Dose: 25 mg Hydromorphone HCl (Dilaudid) 1 mg IVP Q3H PRN PRN Reason: Pain, moderate (4-7) Last Admin: 09/30/17 12:14 Dose: 1 mg Meropenem 1 gm/ Sodium (Chloride) 100 mls @ 100 mls/hr IVPB Q8 [facility] Last Admin: 09/30/17 06:12 Dose: 100 mls/hr Lactobacillus Acidophilus (Bacid Acidophilus) 1 cap PO BID [facility] Last Admin: 09/30/17 09:05 Dose: 1 cap Mesalamine (Delzicol) 800 mg PO TID [facility] Last Admin: 09/30/17 09:04 Dose: 800 mg Pantoprazole Sodium (Protonix Ec Tab) 40 mg PO DAILY [facility] Last Admin: 09/30/17 09:05 Dose: 40 mg Petrolatum (Desitin Original) 0 gm TOP BID [facility] Last Admin: 09/30/17 09:04 Dose: 1 applic Quetiapine Fumarate (Seroquel) 50 mg PO HS [facility] Last Admin: 09/29/17 21:57 Dose: 50 mg Sucralfate (Carafate Tab) 1 gm PO BID [facility] Last Admin: 09/30/17 09:05 Dose: 1 gm - Labs Labs: 09/30/17 10:41 09/30/17 10:41 - Constitutional Appears: Well - Head Exam Head Exam: ATRAUMATIC, NORMAL INSPECTION, NORMOCEPHALIC - Eye Exam Eye Exam: EOMI, Normal appearance, PERRL Pupil Exam: NORMAL ACCOMODATION, PERRL - ENT Exam ENT Exam: Mucous Membranes Moist, Normal Exam - Neck Exam Neck Exam: Full ROM, Normal Inspection. absent: Lymphadenopathy - Respiratory Exam Respiratory Exam: Decreased Breath Sounds - Cardiovascular Exam Cardiovascular Exam: REGULAR RHYTHM, +S1, +S2 - GI/Abdominal Exam GI & Abdominal Exam: Soft, Diminished Bowel Sounds - Rectal Exam Rectal Exam: Deferred
[2017-10-01] MEDS: DiphenhydrAMINE 50 mg/ml Inj IVP PRN ×6 (00:46→16:31)
[2017-10-01] MEDS: Meropenem 1 GM in Sodium Chloride 0.9% 100 ML IVPB SCH ×2 (05:36→13:33)
[2017-10-01] MEDS: HYDROmorphone 0.5 mg/0.5 ml ISec IVP PRN ×4 (07:22→16:28)
--- NOTE | 2017-10-01 10:31 | CP.PCM.PN ---
Subjective - Date & Time of Evaluation Date of Evaluation: 10/01/17 Time of Evaluation: 10:28 - Subjective Subjective: PGY2 progress note for Dr. Barrett Pt seen and examined at bedside. No acute events overnight. Pt continues to complain of rectal pain. Denies having any F/C, CP, SOB, abd pain, N/V/D/c. Colostomy bag is in place with stool present. Pt tolerating PO intake. Objective - Vital Signs/Intake and Output Vital Signs (last 24 hours): Temp Pulse Resp BP Pulse Ox 98.5 F 104 H 20 110/55 L 98 10/01/17 07:30 10/01/17 07:30 10/01/17 07:30 10/01/17 07:30 10/01/17 07:30 Intake and Output: 10/01/17 10/01/17 06:59 18:59 Intake Total 600 Output Total 350 Balance 600 -350 - Medications Medications: Current Medications Acetaminophen (Tylenol 325mg Tab) 650 mg PO Q6 PRN PRN Reason: fever 101.1 and above Last Admin: 09/19/17 16:05 Dose: 650 mg Ascorbic Acid (Vitamin C 500 Mg Tab) 500 mg PO DAILY [facility] [place] Last Admin: 09/30/17 09:05 Dose: 500 mg Cyanocobalamin (Vitamin B12 1000 Mcg Tab) 1,000 mcg PO DAILY [facility] [place] Last Admin: 09/30/17 09:05 Dose: 1,000 mcg Diphenhydramine HCl (Benadryl) 25 mg IVP Q3 PRN PRN Reason: Itching / Pruritus Last Admin: 10/01/17 07:22 Dose: 25 mg Hydromorphone HCl (Dilaudid) 1 mg IVP Q3H PRN PRN Reason: Pain, moderate (4-7) Last Admin: 10/01/17 07:22 Dose: 1 mg Meropenem 1 gm/ Sodium (Chloride) 100 mls @ 100 mls/hr IVPB Q8 [facility] Last Admin: 10/01/17 05:36 Dose: 100 mls/hr Lactobacillus Acidophilus (Bacid Acidophilus) 1 cap PO BID [facility] Last Admin: 09/30/17 18:21 Dose: 1 cap Mesalamine (Delzicol) 800 mg PO TID [facility] Last Admin: 09/30/17 18:21 Dose: 800 mg Pantoprazole Sodium (Protonix Ec Tab) 40 mg PO DAILY [facility] Last Admin: 09/30/17 09:05 Dose: 40 mg Petrolatum (Desitin Original) 0 gm TOP BID [facility] Last Admin: 09/30/17 18:00 Dose: 1 applic Quetiapine Fumarate (Seroquel) 50 mg PO HS [facility] Last Admin: 09/30/17 21:32 Dose: 50 mg Sucralfate (Carafate Tab) 1 gm PO BID [facility] Last Admin: 09/30/17 18:20 Dose: 1 gm - Labs Labs: 09/30/17 10:41 09/30/17 10:41 - Constitutional Appears: Non-toxic, No Acute Distress - Head Exam Head Exam: ATRAUMATIC - ENT Exam ENT Exam: Mucous Membranes Moist - Respiratory Exam Respiratory Exam: Clear to Ausculation Bilateral. absent: Accessory Muscle Use , Rhonchi, Wheezes, Respiratory Distress - Cardiovascular Exam Cardiovascular Exam: REGULAR RHYTHM, +S1, +S2. absent: Gallop, Rubs, Murmur - GI/Abdominal Exam GI & Abdominal Exam: Normal Bowel Sounds. absent: Distended, Firm, Guarding, Rigid, Soft, Tenderness, Organomegaly - Extremities Exam Extremities Exam: absent: Pedal Edema, Tenderness - Neurological Exam Neurological Exam: Alert, Awake, Oriented x3 - Psychiatric Exam Psychiatric exam: Normal Affect, Normal Mood - Skin Skin Exam: Dry, Intact, Normal Color, Warm Assessment and Plan - Assessment and Plan (Free Text) Assessment: Crohn disease On Mesalamine Pain control Monitor BMs Diet management Outpatient GI follow up; Considerations for surgical management for abscesses if need be. Continue PPI and Carafate Cont to monitor Positive blood culture repeat blood and urine cultures are pending. Currently on meropenem Pt will be d/kasi on Bactrim for 7 days Anal fistula On antibiotics- May be adjusted per ID Continue wound care management Surgeon, Dr. Taylor consulted with recommendations for outpatient follow up Depressed mood Seroquel 50 mg PO HS Prophylactic measure Lovenox 40SC PPI 40 mg PO daily Discussed with attending. Management and planning per Dr. Barrett. Patient is stable for discharge home per Dr. Barrett. Patient is to follow up with PMD upon discharge. Patient is to follow up with GI specialist upon discharge for continuing treatment of Crohn's disease. Patient is to follow up with surgeon upon discharge. Referral is provided to patient. Patient is to continue taking home medications as prescribed. Patient will be discharged with the following new medication: Bactrim DS 1 tab PO q12h x 14 days. Please return to ED if symptoms worsen. Wound care management: Cleaned area with moistened 4 x 4's, pat dry, pack strips of calcium alginate silver into wounds, cover with 4 x 4's then taped in place. If dressings fall off, re-pack with calcium alginate silver, and cover with dry dressings when needed. Wounds MUST be covered at all times to help prevent bacterial infection.
[2017-10-01] MEDS: Lactobacillus Acidophilus 500 MU Cap PO SCH ×2 (10:42→17:44)
[2017-10-01] MEDS: Pantoprazole 40 mg EC Tab PO SCH (10:42)
[2017-10-01] MEDS: Zinc Oxide Topical 30 gm Tube TOP SCH ×2 (10:43→17:44)
[2017-10-01 11:50] LABS: BASO # 0.1 K/uL (0.0-0.2); BASO % 0.4 % (0.0-2.0); EOS # 0.4 K/uL (0.0-0.7); EOS % 3.5 % (0.0-4.0); HEMOGLOBIN 10.3 g/dL (12.0-18.0); LYMPH # 3.6 K/uL (1.0-4.3); LYMPH % 29.6 % (20.0-40.0); MEAN CELL VOLUME 71.5 fL (80.0-94.0); MEAN CORPUSCULAR HEMOGLOBIN 22.7 pg (27.0-31.0); MEAN CORPUSCULAR HGB CONC 31.8 g/dL (33.0-37.0); MEAN PLATELET VOLUME 8.2 fL (7.2-11.7); MONO # 0.8 K/uL (0.0-0.8); MONO % 6.2 % (0.0-10.0); NEUT # 7.4 K/uL (1.8-7.0); NEUT % 60.3 % (50.0-75.0); RBC 4.51 Mil/uL (4.40-5.90); WHITE BLOOD COUNT 12.2 K/uL (4.8-10.8)
[2017-10-01 11:58] LABS: ALB/GLOB RATIO 0.9 (1.0-2.1); ALBUMIN 3.6 g/dL (3.5-5.0); ALT/SGPT 27 U/L (21-72); AST/SGOT 22 U/L (17-59); BLOOD UREA NITROGEN 9 mg/dL (9-20); CALCIUM 8.6 mg/dl (8.6-10.4); GFR AFRICAN-AMERICAN > 60; GFR NON-AFRICAN AMERICAN > 60
[2017-10-01] MEDS ORDERED: Potassium Chloride 20 mEq ER Tab PO ONE (12:45)
[2017-10-01 16:19] VITALS: BP 109/73; PULSE 111; TEMP 99.1; O2SAT 99
--- NOTE | 2017-10-01 18:34 | CP.PCM.PN ---
Subjective - Date & Time of Evaluation Date of Evaluation: 10/01/17 Time of Evaluation: 04:00 - Subjective Subjective: DICTATED Objective - Vital Signs/Intake and Output Vital Signs (last 24 hours): Temp Pulse Resp BP Pulse Ox 99.1 F 111 H 20 109/73 99 10/01/17 16:19 10/01/17 16:19 10/01/17 16:19 10/01/17 16:19 10/01/17 16:19 Intake and Output: 10/01/17 10/01/17 06:59 18:59 Intake Total 600 660 Output Total 600 Balance 600 60 - Labs Labs: 10/01/17 11:30 10/01/17 11:30
--- NOTE | 2017-10-01 23:31 | PN ---
DATE: SUBJECTIVE: The patient has been complaining of pain in the ulcerated area and he has also been passing some stool through there. He denies any nausea or vomiting. I was trying to get him home, but he has lost his insurance and there cannot be any kind of services given there. Case was discussed with the resident and the patient is ordered to go home and if he does, I would discontinue the IV antibiotics and would send him on Bactrim p.o. as I do not want to get him into any DVT. He has had an episode of DVT in the past. Also, his mother was at the bedside and I discussed with them that he should take showers at least twice a day and keep himself clean as he had some roughness around the colostomy because of the tapes and stuff, which probably cannot be there if he takes good shower. He needs to follow with his GI, and I think these antibiotics are not helping him much and he continues to have these lesions, which probably is the Crohn's disease itself. PHYSICAL EXAMINATION VITAL SIGNS: T-max is 99.1, heart rate of 111, blood pressure 109/73, respirations are 20. HEENT: Head is atraumatic and normocephalic. NECK: Supple. LUNGS: Clear. CARDIOPULMONARY: S1 and S2. tachycardiac. ABDOMEN: The colostomy bag is there. EXTREMITIES: No edema. I wanted to see the wounds, but he said he has lot of dressings on and at this time, he refused. LABORATORY DATA: They did blood cultures yesterday, which is negative so far. Blood through the central line came as gram-positive cocci, so we will continue with the vancomycin at this time. His white count is 12.2, hemoglobin is 10.3, and that line needs to come out. ASSESSMENT AND PLAN: The is probably a contaminant as he says they draw blood from the periphery in the past, but I am not sure, but if the line comes out, I think he will get better. Santosh Daniel MD
== END 2017-10-01 18:14 | disposition home or self-care (01) | DRG 179 ==
LOC: C.ER 20:21 → C.9E 21:45 → C.5S 09-16 06:42
PROVIDERS: ADMIT Internal Medicine Nephrology; ATTEND Internal Medicine Nephrology
PROC: 05HY33Z Insertion of Infusion Device into Upper Vein, Percutaneous Approach (ICD-10-PCS; principal; 2017-09-17)
DX: K50.90 Crohn's disease, unspecified, without complications (principal); F32.1 Major depressive disorder, single episode, moderate; D64.9 Anemia, unspecified; G47.00 Insomnia, unspecified; Z74.01 Bed confinement status; Z86.14 Personal history of Methicillin resistant Staphylococcus aureus infection; Z86.718 Personal history of other venous thrombosis and embolism; Z93.3 Colostomy status; F17.200 Nicotine dependence, unspecified, uncomplicated; F32.89 Other specified depressive episodes; Z68.22 Body mass index [BMI] 22.0-22.9, adult

== ENCOUNTER 2017-10-04 17:33 | Emergency (ER) | payer SELFPAY ==
[2017-10-04 17:33] VITALS: BMI 20.6
[2017-10-04 17:38] VITALS: BP 98/67; PULSE 79; RESP 20; TEMP 97.6; O2SAT 100
[2017-10-04] MEDS ORDERED: Sodium Chloride 0.9% 1,000 ML IV ONE (17:39)
--- NOTE | 2017-10-04 17:46 | C.PDOC ---
History Of Present Illness Patient is a 22 y/o male with a pmhx of Crohns disease, colostomy bag, polysubstance abuse, depression, and frequent suicidal ideation, who was just recently discharged from [facility]. EMS was called today and found patient slumped over on the ground, poorly responsive. Patient has a history of narcotic abuse, history of being violent towards his mom, and was found smoking something today, possibly crack. Upon arrival, patient is not talking, and is sitting with his eyes open. He was medicated with versed 2mg IM by EMS and is very drowsy at present. Time Seen by Provider: 10/04/17 17:37 Chief Complaint (Nursing): Substance Abuse History Per: Patient History/Exam Limitations: intoxication Onset/Duration Of Symptoms: Days (x1) Current Symptoms Are (Timing): Still Present Additional History Per: EMS Past Medical History Reviewed: Historical Data, Nursing Documentation, Vital Signs Vital Signs: Last Vital Signs Temp 97.6 F 10/04/17 17:36 Pulse 79 10/04/17 17:36 Resp 20 10/04/17 17:36 BP 98/67 L 10/04/17 17:36 Pulse Ox 100 10/04/17 17:51 - Medical History PMH: Crohn's Disease (COLOSTOMY 2016), Depression Denies: Chronic Kidney Disease Other PMH: Substance abuse Other Surgeries: Colostomy - [facility] Procedures DRAINAGE OF BACK SKIN, EXTERNAL APPROACH (06/22/17) DRAINAGE OF BACK SUBCU/FASCIA, OPEN APPROACH (10/21/16) DRAINAGE OF BUTTOCK SKIN, EXTERNAL APPROACH, DIAGNOSTIC (09/23/16) DRAINAGE OF BUTTOCK SUBCU/FASCIA, OPEN APPROACH (03/22/17) DRAINAGE OF BUTTOCK SUBCU/FASCIA, OPEN APPROACH, DIAGN (03/22/17) DRAINAGE OF LEFT AXILLA, OPEN APPROACH (12/21/16) DRAINAGE OF PERINEUM SKIN, EXTERNAL APPROACH (06/22/17) DRAINAGE OF PERINEUM SUBCU/FASCIA, OPEN APPROACH (01/30/17) EXCISION OF BACK SKIN, EXTERNAL APPROACH (09/23/16) EXCISION OF BACK SUBCU/FASCIA, OPEN APPROACH (10/21/16) EXCISION OF BUTTOCK SKIN, EXTERNAL APPROACH (03/22/17) EXCISION OF BUTTOCK SUBCU/FASCIA, OPEN APPROACH (10/21/16) EXCISION OF LEFT AXILLARY LYMPHATIC, OPEN APPROACH (12/21/16) EXCISION OF PERINEUM SKIN, EXTERNAL APPROACH (03/22/17) EXTRACTION OF BUTTOCK SKIN, EXTERNAL APPROACH (09/23/16) EXTRACTION OF PERINEUM SUBCU/FASCIA, OPEN APPROACH (01/30/17) FLUOROSCOPY OF RIGHT UPPER EXTREMITY VEINS, GUIDANCE (08/29/17) GROUP PSYCHOTHERAPY (11/25/16) INDIVIDUAL PSYCHOTHERAPY, COGNITIVE-BEHAVIORAL (11/25/16) INDIVIDUAL PSYCHOTHERAPY, SUPPORTIVE (05/23/17) INSERTION OF INFUSION DEV INTO R BRACH VEIN, PERC APPROACH (08/29/17) INSERTION OF INFUSION DEV INTO SUP VENA CAVA, PERC APPROACH (08/12/17) INSERTION OF INFUSION DEVICE INTO UPPER VEIN, PERC APPROACH (09/15/17) REMOVAL OF INFUSION DEV FROM GREAT VESSEL, BUILDING SUPERINTENDENT APPROACH (12/21/16) REMOVAL OF RESERVOIR FROM TRUNK SUBCU/FASCIA, OPEN APPROACH (07/07/17) ULTRASONOGRAPHY OF RIGHT UPPER EXTREMITY VEINS, GUIDANCE (08/29/17) ULTRASONOGRAPHY OF SUPERIOR VENA CAVA, GUIDANCE (05/23/17) Family History: States: Unknown Family Hx - Social History Hx Alcohol Use: No Hx Substance Use: No - Immunization History Hx Tetanus Toxoid Vaccination: No Hx Influenza Vaccination: Yes Hx Pneumococcal Vaccination: No Review Of Systems Review Of Systems: ROS cannot be obtained secondary to pt's inabilty to answer questions. Physical Exam - Physical Exam Appears: Non-toxic, No Acute Distress Skin: Normal Color, Warm, Dry Head: Atraumatic, Normacephalic, No Abrasion, No Laceration, No Other (other sign of trauma to scalp) Eye(s): bilateral: Other (dilated) Oral Mucosa: Moist Neck: Normal ROM Chest: Symmetrical Cardiovascular: Rhythm Regular, No Murmur Respiratory: Normal Breath Sounds, No Accessory Muscle Use Gastrointestinal/Abdominal: Soft, No Tenderness, Distention, Other (Colostomy bag in place) Back: Normal Inspection, Other (Small decubiti to buttocks area) Extremity: Bilateral: Atraumatic, Normal Color And Temperature Pulses: Left Dorsalis Pedis: Normal, Right Dorsalis Pedis: Normal Neurological/Psych: Other (Drowsy, not verbal secondary to medication) ED Course And Treatment O2 Sat by Pulse Oximetry: 100 (RA) Pulse Ox Interpretation: Normal Medical Decision Making Medical Decision Making: Time: 17:39 Initial Plan: * EKG * Labs * UDS * Chest x-ray * Placed on 1:1 * Will have crisis evaluation pending sobriety Prior documentation in [facility] shows consult with Dr. Gibson for depression, never admitted to psych floor, no plan as per consult on Aug 24. Disposition Counseled Patient/Family Regarding: Studies Performed - Disposition Disposition: HOSPITALIZED Disposition Time: 18:25 Condition: GUARDED Forms: [facility] (Uruguayan) - Clinical Impression Clinical Impression: Crohn disease, Drug abuse, Drug dependence, Acute depression - Scribe Statement The provider has reviewed the documentation as recorded by the Delroy Tellez Provider Attestation: All medical record entries made by the Delroy were at my direction and personally dictated by me. I have reviewed the chart and agree that the record accurately reflects my personal performance of the history, physical exam, medical decision making, and the department course for this patient. I have also personally directed, reviewed, and agree with the discharge instructions and disposition. Physician Patient Turnover Patient Signed Over To: Marcellus Leger Handoff Comments: possible OD, pending labs, utox and final dispo.
[2017-10-04 21:20] LABS: URINE BILIRUBIN NEGATIVE (NEGATIVE); URINE BLOOD NEGATIVE (NEGATIVE); URINE CLARITY Clear (Clear); URINE COLOR Colorless (YELLOW); URINE GLUCOSE (UA) NORMAL (Normal); URINE LEUKOCYTE ESTERASE NEG Leu/uL (Negative); URINE NITRATE NEGATIVE (NEGATIVE); URINE PROTEIN NEGATIVE (NEGATIVE); URINE UROBILINOGEN NORMAL mg/dL (0.2-1.0)
[2017-10-04 21:44] LABS: BARBITURATES, UR NEGATIVE (NEGATIVE); OPIATES, UR NEGATIVE (NEGATIVE); PHENCYCLIDINE, UR NEGATIVE (NEGATIVE)
[2017-10-04 21:50] LABS: BENZODIAZEPINES, UR POSITIVE (NEGATIVE)
--- NOTE | 2017-10-05 08:46 | RAD ---
Chest x-ray single frontal view History: Detox. Comparison: 08/28/2017 Findings: No focal infiltrate or effusion. Heart size within normal limits. Impression: No focal infiltrate or effusion.
--- NOTE | 2017-10-05 21:04 | CARD ---
APPROVED REPORT EKG Measurement Heart [id number] <Conclusion> Sinus rhythm with short [place] Rightward axis Borderline ECG
== END 2017-10-04 22:21 | disposition home or self-care (01) ==
LOC: C.ER 17:33
DX: K50.90 Crohn's disease, unspecified, without complications (principal); F19.20 Other psychoactive substance dependence, uncomplicated; F32.9 Major depressive disorder, single episode, unspecified; Z93.3 Colostomy status
CPT/HCPCS: 71045; 81001; 93005; 99283; G0480

== ENCOUNTER 2017-12-24 14:29 | Inpatient (IN) | payer MEDICAID ==
[2017-12-24 14:29] VITALS: BMI 20.6
[2017-12-24] MEDS ORDERED: Sodium Chloride 0.9% 1,000 ML IV ONE (17:32)
[2017-12-24] MEDS ORDERED: Morphine 4 MG/ML VIAL IV STA (17:33)
[2017-12-24] MEDS ORDERED: Morphine 4 MG/ML VIAL ONE ×2 (17:50→19:20)
[2017-12-24] MEDS ORDERED: DiphenhydrAMINE 50 mg/ml Inj ONE ×2 (17:56→19:21)
--- NOTE | 2017-12-24 18:26 | C.PDOC ---
History Of Present Illness 22 y/o male, w/PMhx of Crohn's disease, presents to the ER complaining of body aches, chills, and rectal pain. Patient states that he had an I&D for a rectal abscess with a SETON procedure at [facility] 5 days ago. Patient denies having SOB, CP, nausea, and vomiting. Time Seen by Provider: 12/24/17 15:19 Chief Complaint (Nursing): Abdominal Pain History Per: Patient History/Exam Limitations: no limitations Onset/Duration Of Symptoms: Days Current Symptoms Are (Timing): Still Present Severity: Moderate Past Medical History Reviewed: Historical Data, Nursing Documentation, Vital Signs Vital Signs: Last Vital Signs Temp 99.6 F 12/24/17 14:49 Pulse 115 H 12/24/17 14:49 Resp 19 12/24/17 14:49 BP 102/66 12/24/17 14:49 Pulse Ox 99 12/24/17 18:45 - Medical History PMH: Crohn's Disease (COLOSTOMY 2016), Depression Denies: Chronic Kidney Disease Other Surgeries: Hx of surgeries - [facility] Procedures DRAINAGE OF BACK SKIN, EXTERNAL APPROACH (06/22/17) DRAINAGE OF BACK SUBCU/FASCIA, OPEN APPROACH (10/21/16) DRAINAGE OF BUTTOCK SKIN, EXTERNAL APPROACH, DIAGNOSTIC (09/23/16) DRAINAGE OF BUTTOCK SUBCU/FASCIA, OPEN APPROACH (03/22/17) DRAINAGE OF BUTTOCK SUBCU/FASCIA, OPEN APPROACH, DIAGN (03/22/17) DRAINAGE OF LEFT AXILLA, OPEN APPROACH (12/21/16) DRAINAGE OF PERINEUM SKIN, EXTERNAL APPROACH (06/22/17) DRAINAGE OF PERINEUM SUBCU/FASCIA, OPEN APPROACH (01/30/17) EXCISION OF BACK SKIN, EXTERNAL APPROACH (09/23/16) EXCISION OF BACK SUBCU/FASCIA, OPEN APPROACH (10/21/16) EXCISION OF BUTTOCK SKIN, EXTERNAL APPROACH (03/22/17) EXCISION OF BUTTOCK SUBCU/FASCIA, OPEN APPROACH (10/21/16) EXCISION OF LEFT AXILLARY LYMPHATIC, OPEN APPROACH (12/21/16) EXCISION OF PERINEUM SKIN, EXTERNAL APPROACH (03/22/17) EXTRACTION OF BUTTOCK SKIN, EXTERNAL APPROACH (09/23/16) EXTRACTION OF PERINEUM SUBCU/FASCIA, OPEN APPROACH (01/30/17) FLUOROSCOPY OF RIGHT UPPER EXTREMITY VEINS, GUIDANCE (08/29/17) GROUP PSYCHOTHERAPY (11/25/16) INDIVIDUAL PSYCHOTHERAPY, COGNITIVE-BEHAVIORAL (11/25/16) INDIVIDUAL PSYCHOTHERAPY, SUPPORTIVE (05/23/17) INSERTION OF INFUSION DEV INTO R BRACH VEIN, PERC APPROACH (08/29/17) INSERTION OF INFUSION DEV INTO SUP VENA CAVA, PERC APPROACH (08/12/17) INSERTION OF INFUSION DEVICE INTO UPPER VEIN, PERC APPROACH (09/15/17) REMOVAL OF INFUSION DEV FROM GREAT VESSEL, GAS EXAMINER APPROACH (12/21/16) REMOVAL OF RESERVOIR FROM TRUNK SUBCU/FASCIA, OPEN APPROACH (07/07/17) ULTRASONOGRAPHY OF RIGHT UPPER EXTREMITY VEINS, GUIDANCE (08/29/17) ULTRASONOGRAPHY OF SUPERIOR VENA CAVA, GUIDANCE (05/23/17) Family History: States: No Known Family Hx - Social History Hx Alcohol Use: No Hx Substance Use: No - Immunization History Hx Tetanus Toxoid Vaccination: No Hx Influenza Vaccination: Yes Hx Pneumococcal Vaccination: Yes Review Of Systems Except As Marked, All Systems Reviewed And Found Negative. Constitutional: Positive for: Chills, Malaise. Negative for: Fever Cardiovascular: Negative for: Chest Pain Respiratory: Negative for: Shortness of Breath Gastrointestinal: Positive for: Rectal Pain Musculoskeletal: Positive for: Back Pain Physical Exam - Physical Exam Appears: Non-toxic, No Acute Distress Skin: Normal Color, Warm, Dry Head: Atraumatic, Normacephalic Eye(s): bilateral: Normal Inspection Nose: Normal Oral Mucosa: Moist Neck: Supple Chest: Symmetrical Cardiovascular: Rhythm Regular Respiratory: Normal Breath Sounds, No Rales, No Rhonchi, No Wheezing Gastrointestinal/Abdominal: Normal Exam, Bowel Sounds ((+) bowel sounds), Soft, No Tenderness, No Guarding, No Rebound, Other (colostomy bag in place) Rectal: Other (drainage from perirectal region) Extremity: Normal ROM, Other (PICC line in left arm) Neurological/Psych: Oriented x3, Normal Speech ED Course And Treatment - Laboratory Results Result Diagrams: 12/24/17 18:21 ECG: Interpreted By Me, Viewed By Me ECG Rhythm: Sinus Rhythm Interpretation Of ECG: NSR with T- wave inversion in Leads I and AVL, normal intervals, and normal axises Rate From EC O2 Sat by Pulse Oximetry: 99 (RA) Pulse Ox Interpretation: Normal Medical Decision Making Medical Decision Making: Plan: --Labs --ECG --UA --CXR --Morphine IV --Zofran IV --IV Fluids Updates: 17:37 Case discussed with surgical dressing maker. Resident will come see patient after the labs are back. Disposition Discussed With DrMeseret: Sanjuana Garcia - Disposition Disposition Time: 19:00 Condition: FAIR Forms: [facility] (Arabic) - Clinical Impression Clinical Impression: Cellulitis - Scribe Statement The provider has reviewed the documentation as recorded by the Scribe Frances Leija Provider Attestation: All medical record entries made by the Scribe were at my direction and personally dictated by me. I have reviewed the chart and agree that the record accurately reflects my personal performance of the history, physical exam, medical decision making, and the department course for this patient. I have also personally directed, reviewed, and agree with the discharge instructions and disposition. Physician Patient Turnover Patient Signed Over To: Sanjuana Garcia Handoff Comments: pending labs, reevaluation and disposition
[2017-12-24 18:37] LABS: ALBUMIN 3.5 g/dL (3.5-5.0); ALT/SGPT 17 U/L (21-72); AST/SGOT 25 U/L (17-59); BLOOD UREA NITROGEN 9 mg/dL (9-20); CALCIUM 8.4 mg/dl (8.6-10.4); GFR AFRICAN-AMERICAN > 60; GFR NON-AFRICAN AMERICAN > 60; LIPASE 36 U/L (23-300)
[2017-12-24 18:44] LABS: SQUAMOUS EPITHIAL 2 /hpf (0-5); URINE BILIRUBIN NEGATIVE (NEGATIVE); URINE BLOOD NEGATIVE (NEGATIVE); URINE CLARITY Clear (Clear); URINE COLOR Yellow (YELLOW); URINE GLUCOSE (UA) NORMAL (Normal); URINE LEUKOCYTE ESTERASE NEG Leu/uL (Negative); URINE PROTEIN NEGATIVE (NEGATIVE); URINE UROBILINOGEN NORMAL mg/dL (0.2-1.0)
[2017-12-24 18:54] LABS: BASO # 0.1 K/uL (0.0-0.2); BASO % 0.8 % (0.0-2.0); EOS # 0.4 K/uL (0.0-0.7); EOS % 3.8 % (0.0-4.0); HEMOGLOBIN 9.4 g/dL (12.0-18.0); LYMPH # 3.6 K/uL (1.0-4.3); LYMPH % 35.9 % (20.0-40.0); MEAN CORPUSCULAR HGB CONC 31.7 g/dL (33.0-37.0); MEAN PLATELET VOLUME 7.8 fL (7.2-11.7); MONO # 0.8 K/uL (0.0-0.8); MONO % 8.3 % (0.0-10.0); NEUT # 5.1 K/uL (1.8-7.0); NEUT % 51.2 % (50.0-75.0); RBC 4.27 Mil/uL (4.40-5.90); WHITE BLOOD COUNT 9.9 K/uL (4.8-10.8)
[2017-12-24 19:02] LABS: MEAN CELL VOLUME 69.3 fL (80.0-94.0)
[2017-12-24 19:03] LABS: INR 1.1; PROTHROMBIN TIME 12.8 SECONDS (9.7-12.2)
[2017-12-24] MEDS ORDERED: DiphenhydrAMINE 50 mg/ml Inj IVP STA (19:25)
[2017-12-24] MEDS ORDERED: metroNIDAZOLE IV 500 mg/100 ml 500 MG/100 ML BAG ONE (20:44)
[2017-12-24] MEDS ORDERED: metroNIDAZOLE IV 500 mg/100 ml 500 MG/100 ML BAG IVPB SCH (20:45)
[2017-12-24 20:59] VITALS: BP 126/74; PULSE 87; RESP 28; TEMP 98; O2SAT 98
[2017-12-24] MEDS ORDERED: Morphine 4 MG/ML VIAL IV PRN (23:30)
--- NOTE | 2017-12-24 23:30 | CP.PCM.HP ---
Past Patient History - Infectious Disease Hx of Infectious Diseases: None - Past Medical History & Family History Past Medical History?: Yes - Past Social History Smoking Status: Never Smoked - CARDIAC Hx Cardiac Disorders: No - PULMONARY Hx Respiratory Disorders: No - NEUROLOGICAL Hx Neurological Disorder: No - HEENT Hx HEENT Problems: No - RENAL Hx Chronic Kidney Disease: No - ENDOCRINE/METABOLIC Hx Endocrine Disorders: No - HEMATOLOGICAL/ONCOLOGICAL Hx Blood Disorders: No - INTEGUMENTARY Hx Dermatological Problems: Yes Other/Comment: Perineal wound. Rectal abcess - MUSCULOSKELETAL/RHEUMATOLOGICAL Hx Falls: Yes - GASTROINTESTINAL Hx Crohn's Disease: Yes (COLOSTOMY 2016) - GENITOURINARY/GYNECOLOGICAL Hx Genitourinary Disorders: No - PSYCHIATRIC Hx Depression: Yes Hx Substance Use: No - SURGICAL HISTORY Hx Surgeries: Yes (SEE COMMENT) Other/Comment: LOOP COLOSTOMY. Perineal wound. COLON RESECTION. I&D x15+ - ANESTHESIA Hx Anesthesia: Yes Hx Anesthesia Reactions: No Hx Malignant Hyperthermia: No Meds Allergies/Adverse Reactions: Allergies Allergy/AdvReac Type Severity Reaction Status Date / Time morphine Allergy Severe ITCHING Verified 12/24/17 14:54 Results - Vital Signs Recent Vital Signs: Last Vital Signs Temp 98 F 12/24/17 20:58 Pulse 87 12/24/17 20:58 Resp 28 H 12/24/17 20:58 BP 126/74 12/24/17 20:58 Pulse Ox 98 12/24/17 20:58 - Labs Result Diagrams: 12/24/17 18:51 12/24/17 18:21 Labs: Laboratory Results - last 24 hr 12/24/17 12/24/17 12/24/17 18:21 18:21 18:34 WBC RBC Hgb Hct MCV MCH MCHC RDW Plt Count MPV Neut % (Auto) Lymph % (Auto) [place] % (Auto) Eos % (Auto) Baso % (Auto) Neut # (Auto) Lymph # (Auto) [place] # (Auto) Eos # (Auto) Baso # (Auto) PT INR APTT Sodium 139 Potassium 3.4 L Chloride 106 Carbon Dioxide 24 Anion Gap 13 BUN 9 Creatinine 0.6 L Est GFR ( Amer) > 60 Est GFR (Non-Af Amer) > 60 Random Glucose 75 Lactic Acid 1.3 Calcium 8.4 L Total Bilirubin 0.3 AST 25 ALT 17 L D Alkaline Phosphatase 74 Total Protein 7.2 Albumin 3.5 Globulin 3.7 Albumin/Globulin Ratio 1.0 Lipase 36 Urine Color Yellow Urine Clarity Clear Urine pH 7.0 Ur Specific Orange 1.016 Urine Protein Negative Urine Glucose (UA) Normal Urine Ketones Negative Urine Blood Negative Urine Nitrate Negative Urine Bilirubin Negative Urine Urobilinogen Normal Ur Leukocyte Esterase Neg Urine WBC (Auto) 1 Urine RBC (Auto) 1 Ur Squamous Epith Cells 2 12/24/17 12/24/17 18:51 18:51 WBC 9.9 RBC 4.27 L Hgb 9.4 L Hct 29.6 L MCV 69.3 L D MCH 22.0 L MCHC 31.7 L RDW 16.0 H Plt Count 272 D MPV 7.8 Neut % (Auto) 51.2 Lymph % (Auto) 35.9 [place] % (Auto) 8.3 Eos % (Auto) 3.8 Baso % (Auto) 0.8 Neut # (Auto) 5.1 Lymph # (Auto) 3.6 [place] # (Auto) 0.8 Eos # (Auto) 0.4 Baso # (Auto) 0.1 PT 12.8 H INR 1.1 APTT 26 Sodium Potassium Chloride Carbon Dioxide Anion Gap BUN Creatinine Est GFR ( Amer) Est GFR (Non-Af Amer) Random Glucose Lactic Acid Calcium Total Bilirubin AST ALT Alkaline Phosphatase Total Protein Albumin Globulin Albumin/Globulin Ratio Lipase Urine Color Urine Clarity Urine pH Ur Specific Orange Urine Protein Urine Glucose (UA) Urine Ketones Urine Blood Urine Nitrate Urine Bilirubin Urine Urobilinogen Ur Leukocyte Esterase Urine WBC (Auto) Urine RBC (Auto) Ur Squamous Epith Cells
[2017-12-24] MEDS ORDERED: Potassium Chloride 20 mEq/15 ml LIQ UD PO STA (23:33)
--- NOTE | 2017-12-25 09:02 | RAD ---
HISTORY: abd pain COMPARISON: Chest radiograph dated 10/04/2017. TECHNIQUE: Chest PA and lateral FINDINGS: LUNGS: No active pulmonary disease. PLEURA: No significant pleural effusion identified. No pneumothorax apparent. CARDIOVASCULAR: Normal. OSSEOUS STRUCTURES: No significant abnormalities. VISUALIZED UPPER ABDOMEN: Normal. OTHER FINDINGS: Left upper extremity PICC with catheter tip at the cavoatrial junction. IMPRESSION: No active disease.
[2017-12-25] MEDS ORDERED: MESALAMINE 1600 MG PO SCH (10:00)
--- NOTE | 2017-12-25 19:36 | CP.PCM.PN ---
Subjective - Date & Time of Evaluation Date of Evaluation: 12/25/17 Time of Evaluation: 11:00 - Subjective Subjective: clinically same Objective - Vital Signs/Intake and Output Vital Signs (last 24 hours): Temp Pulse Resp BP Pulse Ox 98 F 87 28 H 126/74 98 12/24/17 20:58 12/24/17 20:58 12/24/17 20:58 12/24/17 20:58 12/24/17 20:58 - Medications Medications: Current Medications Ascorbic Acid (Vitamin C 500 Mg Tab) 500 mg PO DAILY NICOLETTE Cyanocobalamin (Vitamin B12 1000 Mcg Tab) 1,000 mcg PO DAILY NICOLETTE Dicyclomine HCl (Bentyl) 20 mg PO BID PRN PRN Reason: abdominal pain Metronidazole (Flagyl) 500 mg in 100 mls @ 100 mls/hr IVPB STAT NICOLETTE PRN Reason: Protocol Last Admin: 12/24/17 20:53 Dose: 100 mls/hr Sucralfate (Carafate Tab) 1 gm PO BID NICOLETTE Trazodone HCl (Desyrel) 50 mg PO DAILY NICOLETTE - Labs Labs: 12/24/17 18:51 12/24/17 18:21 PT 12.8 SECONDS (9.7-12.2) H 12/24/17 18:51 INR 1.1 12/24/17 18:51 APTT 26 SECONDS (21-34) 12/24/17 18:51 - Constitutional Appears: Well - Head Exam Head Exam: ATRAUMATIC, NORMAL INSPECTION, NORMOCEPHALIC - Eye Exam Eye Exam: EOMI, Normal appearance, PERRL Pupil Exam: NORMAL ACCOMODATION, PERRL - ENT Exam ENT Exam: Mucous Membranes Moist, Normal Exam - Neck Exam Neck Exam: Full ROM, Normal Inspection. absent: Lymphadenopathy - Respiratory Exam Respiratory Exam: Decreased Breath Sounds - Cardiovascular Exam Cardiovascular Exam: REGULAR RHYTHM, +S1, +S2 - GI/Abdominal Exam GI & Abdominal Exam: Soft, Diminished Bowel Sounds - Rectal Exam Rectal Exam: Deferred
--- NOTE | 2017-12-25 22:56 | CARD ---
APPROVED REPORT EKG Measurement Heart [id number] MI 120P [id number] <Conclusion> Suspect arm lead reversal, interpretation assumes no reversal Normal sinus rhythm PLEASE REPEAT Abnormal ECG
== END 2017-12-24 23:15 | disposition left against medical advice (07) | DRG 179 ==
LOC: C.ER 14:29 → C.9E 20:35 → C.6T 22:45
PROVIDERS: ADMIT Internal Medicine Nephrology; ATTEND Internal Medicine Nephrology
DX: K50.90 Crohn's disease, unspecified, without complications (principal); K61.1 Rectal abscess; Z93.3 Colostomy status; F32.9 Major depressive disorder, single episode, unspecified